=== PATIENT | male | born 1970 | race Caucasian/White ===

== ENCOUNTER 2016-11-22 09:00 | Emergency (ER) | payer MEDICARE, OTHER ==
[2016-11-22] MEDS ORDERED: cloNIDine HCL 0.1 MG TAB PO STA (09:26)
--- NOTE | 2016-11-22 09:29 | ED ---
Back Pain HPI - General Chief Complaint: Back Pain/Injury Stated Complaint: neck/back pain Time Seen by Provider: 11/22/16 09:11 Source: patient, RN notes reviewed Mode of arrival: ambulatory Limitations: no limitations - History of Present Illness Initial Comments: This a 38-year-old male presents emergency Department with chief complaint of neck and back pain. Patient states it has been bothering him for over 3 weeks he states he injured it while trying to start a snowblower. He states that the cord recoiled causing him to lean forward. He states he has not seen anybody for this pain but states is not getting better. Patient states she's been taken Jose Armando aspirin and Tylenol with no relief. Patient has chronic kidney disease did not take any anti-inflammatories. Patient states he is currently on dialysis. Patient states that his blood pressure has been elevated and he normally gets medications at dialysis. Patient denies any chest pain or shortness breath. Denies any nausea, vomiting. - Related Data Home Medications Medication Instructions Recorded Confirmed Calcium Acetate [Phoslo] 667 mg PO TID-W/MEALS 11/22/16 11/22/16 Sevelamer [Renvela] 800 mg PO TID-W/MEALS 11/22/16 11/22/16 Sodium Bicarbonate Tab 650 mg PO BID 11/22/16 11/22/16 Previous Rx's Medication Instructions Recorded Cyclobenzaprine [Flexeril] 5 mg PO TID PRN #15 tablet 11/22/16 Hydrocodone/Acetaminophen [[place] 1 tab PO Q6HR PRN #20 tab 11/22/16 5-325] Allergies Allergy/AdvReac Type Severity Reaction Status Date / Time No Known Allergies Allergy Verified 11/22/16 09:56 Review of Systems ROS Statement: Those systems with pertinent positive or pertinent negative responses have been documented in the HPI. ROS Other: All systems not noted in ROS Statement are negative. Past Medical History Past Medical History: Renal Disease Additional Past Medical History / Comment(s): kidney failure hemodialysis History of Any Multi-Drug Resistant Organisms: None Reported Additional Past Surgical History / Comment(s): fistula for dialysis lithotripsy kidney stents Past Psychological History: No Psychological Hx Reported Smoking Status: Current every day smoker Past Alcohol Use History: None Reported Past Drug Use History: None Reported General Exam Limitations: no limitations General appearance: alert, in no apparent distress Head exam: Present: atraumatic, normocephalic, normal inspection Eye exam: Present: normal appearance, PERRL, EOMI. Absent: scleral icterus, conjunctival injection, periorbital swelling ENT exam: Present: normal exam, normal oropharynx, mucous membranes moist, TM's normal bilaterally Neck exam: Present: normal inspection, tenderness (Tenderness along the cervical paraspinal), full ROM (Mild discomfort). Absent: meningismus, lymphadenopathy Respiratory exam: Present: normal lung sounds bilaterally. Absent: respiratory distress, wheezes, rales, rhonchi, stridor Cardiovascular Exam: Present: regular rate, normal rhythm, normal heart sounds. Absent: systolic murmur, diastolic murmur, rubs, gallop, clicks Extremities exam: Present: normal inspection, full ROM, normal capillary refill. Absent: tenderness, pedal edema, joint swelling, calf tenderness Back exam: Present: full ROM, tenderness (Mild tenderness of the upper thoracic region), paraspinal tenderness. Absent: vertebral tenderness Neurological exam: Present: alert, oriented X3, CN II-XII intact, reflexes normal. Absent: motor sensory deficit Skin exam: Present: warm, dry, intact, normal color. Absent: rash Course Vital Signs 11/22/16 09:06 Temperature 97.5 F L Pulse Rate 73 Respiratory 18 Rate Blood Pressure 189/108 O2 Sat by Pulse 99 Oximetry Medical Decision Making - Medical Decision Making 38-year-old male present emergency department for neck pain upper back pain. Patient has severe osteoporosis and degenerative changes. Patient referred to Dr. Venegas. Return parameters were discussed. Disposition Clinical Impression: Neck pain, Degenerative arthritis of cervical spine, Thoracic back pain Disposition: HOME SELF-CARE Condition: Stable Instructions: Neck Pain (ED) Additional Instructions: Please return to the Emergency Department if symptoms worsen or any other concerns. Prescriptions: Cyclobenzaprine [Flexeril] 5 mg PO TID PRN #15 tablet PRN Reason: Muscle Spasm Hydrocodone/Acetaminophen [[place] 5-325] 1 tab PO Q6HR PRN #20 tab PRN Reason: Pain Referrals: Jaylen Holguin MD [Primary Care Provider] - 1-2 days Brett Benjamin DO [Doctor of Osteopathic Medicine] - 1-2 days Time of Disposition: 10:49
--- NOTE | 2016-11-22 09:46 | XR ---
EXAMINATION TYPE: 5 view cervical spine. 3 views thoracic spine. DATE OF EXAM: 11/22/2016 9:39 AM COMPARISON: NONE HISTORY: 46-year-old male with a pulling/twisting injury, pain from center of the neck down the back. FINDINGS: Cervical spine: No predental space widening or prevertebral soft tissue swelling. Mild to moderate degenerative disc disease in the mid to lower cervical spine characterized by disc interspace narrowing and endplate sp ondylosis greatest at C6/C7 and then at C5-C6. There is normal alignment of the cervical spine. Corre sponding mild facet degenerative change. Limited obliquity for assessment of the right-sided neurofor rossy. There may be mild narrowing of the C5-C6 and C6-C7 neuroforamina on the right. Left-sided neur al foramina appear relatively patent. Normal odontoid view. Thoracic spine: 12 rib-bearing thoracic vertebral bodies. All pedicles are visualized. Slight undulation of the thora cic spine possibly due to some underlying minimal scoliosis. Vertebral body heights appear preserved. There is mild multilevel endplate spondylosis throughout. Grade 1 retrolisthesis at the thoracolumba r junction likely on a degenerative basis. IMPRESSION: 1. Cervical spine: Mild to moderate spondylotic change mid to lower cervical spine without malalignme nt. 2. Cervical spine: There may be mild narrowing of the right-sided C5-C6 and C6-C7 neuroforamina. Asse ssment limited due to the degree of obliquity. 3. Thoracic spine: Slight undulating curvature could be from spasm or a subtle underlying scoliosis. 4. Thoracic spine: Mild multilevel spondylotic change. There is trace retrolisthesis at the thoracolu mbar junction. Otherwise, alignment is maintained and vertebral body heights are preserved.
[2016-11-22 11:12] VITALS: BP 178/98; PULSE 81; RESP 16; TEMP 97.4
== END 2016-11-22 11:16 | disposition home or self-care (01) ==
LOC: EC 09:00
DX: M54.6 Pain in thoracic spine (principal); M54.2 Cervicalgia; N18.6 End stage renal disease; M47.892 Other spondylosis, cervical region; F17.200 Nicotine dependence, unspecified, uncomplicated; Z99.2 Dependence on renal dialysis; Z79.899 Other long term (current) drug therapy
CPT/HCPCS: 72050; 72070; 99283

== ENCOUNTER → 2017-04-10 | Outpatient (CLI) | payer BC, MEDICARE ==
--- NOTE | 2017-04-10 14:02 | XR ---
EXAMINATION TYPE: XR lumbar spine with bend/flex DATE OF EXAM ORDERED: 04/10/2017 1:54 PM HISTORY: M54.5 Low back pain. COMPARISON: None. FINDINGS: There is a mild dextroscoliosis within the thoracic spine. There is an accentuated lumbar tendinosis. There is no abnormal motion of the spine in flexion or ext ension. There is no spondylolysis. There are mild retrograde listhesis of L2 on L3 and L3 on L4. This does no t change significantly with flexion or extension. There is mild, diffuse degenerative disc disease. T here is hypertrophic spondylosis throughout the lumbar spine with relative sparing of L1-2. The pedic les are intact. IMPRESSION: 1. NO ACUTE OSSEOUS LESION. 2. DEGENERATIVE CHANGE.
--- NOTE | 2017-04-10 14:05 | XR ---
EXAMINATION TYPE: XR cervical spine comp DATE OF EXAM ORDERED: 04/10/2017 1:54 PM HISTORY: M54.2 Neck pain. COMPARISON: Previous study dated 11/22/2016. FINDINGS: There is some loss of the normal cervical lordosis. Alignment is normal. Atlantoaxial rela tionships are normal. Intervertebral foramina are diffusely narrowed slightly worse on the left than the right. There is degenerative disc disease and hypertrophic spondylosis at C5-6 and C6-7. There is mild uncovertebral joint disease at these levels. IMPRESSION: 1. NO ACUTE OSSEOUS LESION. 2. DEGENERATIVE CHANGE. 3. 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
== END ==
LOC: RADXRMAIN 13:26
PROVIDERS: ATTEND Psychiatry & Neurology Neurology
DX: M47.816 Spondylosis without myelopathy or radiculopathy, lumbar region (principal); M47.812 Spondylosis without myelopathy or radiculopathy, cervical region
CPT/HCPCS: 72050; 72114

== ENCOUNTER → 2017-06-14 | Outpatient (CLI) | payer BC, MEDICARE | END | disposition home or self-care (01) | LOC: LABWHC1 13:03 | PROVIDERS: ATTEND Nurse Practitioner Family | DX: Z53.9 Procedure and treatment not carried out, unspecified reason (principal) ==

== ENCOUNTER 2017-07-06 07:28 | Inpatient (IN) | payer BC, MEDICARE ==
[2017-07-06] MEDS ORDERED: SODIUM CHLORIDE 0.9% 500 ML IV STA (07:54)
[2017-07-06] MEDS ORDERED: hydrALAZINE HCL 20 MG/ML 1 ML VIAL IVP STA ×2 (07:54→09:17)
--- NOTE | 2017-07-06 08:15 | ED ---
General Adult HPI - General Chief complaint: Neuro Symptoms/Deficit Stated complaint: numbness Time Seen by Provider: 07/06/17 07:30 Source: patient, RN notes reviewed Mode of arrival: ambulatory Limitations: no limitations - History of Present Illness Initial comments: This is a 47-year-old male who presents to the emergency department complaining that he had tingling in his left arm and leg. Patient denies any weakness. Patient states she also has a headache. Patient states he took pressure medicines is 100 blood pressure remained high. Patient denies any visual disturbance. Patient denies any speech disturbance. Patient states he woke up at the tingling sensation in his left side. Patient denies any chest pain currently but he states earlier in the day he had chest pain on the left side that lasted about 5 minutes. Patient also states she short of breath. Patient denies any diaphoresis. Patient denies abdominal pain patient denies nausea vomiting diarrhea. Patient denies any recent fever chills or cough - Related Data Home Medications Medication Instructions Recorded Confirmed Calcium Acetate [Phoslo] 667 mg PO TID-W/MEALS 11/22/16 06/14/17 Sevelamer [Renvela] 800 mg PO TID-W/MEALS 11/22/16 06/14/17 Sodium Bicarbonate Tab 650 mg PO BID 11/22/16 06/14/17 Acetaminophen [Tylenol] 325 mg PO Q4H 06/14/17 06/14/17 Lisinopril [Zestril] 20 mg PO BID 06/14/17 06/14/17 amLODIPine [Norvasc] 5 mg PO DAILY 06/14/17 06/14/17 levETIRAcetam [Keppra] 1,000 mg PO Q12HR 06/14/17 06/14/17 Allergies Allergy/AdvReac Type Severity Reaction Status Date / Time No Known Allergies Allergy Verified 07/06/17 07:34 Review of Systems ROS Statement: Those systems with pertinent positive or pertinent negative responses have been documented in the HPI. ROS Other: All systems not noted in ROS Statement are negative. Past Medical History Past Medical History: Hypertension, Renal Disease, Seizure Disorder Additional Past Medical History / Comment(s): kidney failure hemodialysis History of Any Multi-Drug Resistant Organisms: None Reported Additional Past Surgical History / Comment(s): fistula for dialysis lithotripsy kidney stents Past Psychological History: No Psychological Hx Reported Smoking Status: Current every day smoker Past Alcohol Use History: None Reported Past Drug Use History: None Reported General Exam - General Exam Comments Initial Comments: GENERAL: Patient is well-developed and well-nourished. Patient is nontoxic and well- hydrated and is in mild distress. ENT: Neck is soft and supple. No significant lymphadenopathy is noted. Oropharynx is clear. Moist mucous membranes. Neck has full range of motion without eliciting any pain. EYES: The sclera were anicteric and conjunctiva were pink and moist. Extraocular movements were intact and pupils were equal round and reactive to light. Eyelids were unremarkable. PULMONARY: Unlabored respirations. Good breath sounds bilaterally. No audible rales rhonchi or wheezing was noted. CARDIOVASCULAR: There is a regular rate and rhythm without any murmurs gallops or rubs. ABDOMEN: Soft and nontender with normal bowel sounds. No palpable organomegaly was noted. There is no palpable pulsatile mass. SKIN: Skin is clear with no lesions or rashes and otherwise unremarkable. NEUROLOGIC: Patient is alert and oriented x3. Cranial nerves II through XII are grossly intact. Motor and sensory are also intact. Normal speech, volume and content. Symmetrical smile.. MUSCULOSKELETAL: Normal extremities with adequate strength and full range of motion. No lower extremity swelling or edema. No calf tenderness. LYMPHATICS: No significant lymphadenopathy is noted PSYCHIATRIC: Normal psychiatric evaluation. Normal interpersonal interactions appears functionally intact in deals appropriately with others. No signs of depression. No signs of anxiety. Limitations: no limitations Course Vital Signs 07/06/17 07/06/17 07/06/17 07:30 08:30 09:00 Temperature 97.7 F Pulse Rate 83 71 Respiratory 18 20 Rate Blood Pressure 215/117 214/113 218/104 O2 Sat by Pulse 99 Oximetry 07/06/17 07/06/17 07/06/17 09:32 10:22 10:32 Temperature Pulse Rate 81 Respiratory 18 Rate Blood Pressure 195/96 173/96 153/92 O2 Sat by Pulse 92 L Oximetry Medical Decision Making - Medical Decision Making EKG shows a normal sinus rhythm at 80 bpm HI interval is 138 QRS is 86 QT interval is 426 QTC is 491. Patient's EKG shows no ST segment elevation or depression. Computed tomography scan of the brain shows no acute normalities. Spoke with Dr. Bruno he agreed to admit the patient. I wrote admitting orders. - Lab Data Result diagrams: 07/06/17 08:00 07/06/17 08:00 Lab Results 07/06/17 07/06/17 07/06/17 Range/Units 08:00 08:00 08:00 WBC 5.8 (3.8-10.6) k/uL RBC 3.79 L (4.30-5.90) m/uL Hgb 12.6 L (13.0-17.5) gm/dL Hct 37.1 L (39.0-53.0) % MCV 97.9 (80.0-100.0) fL MCH 33.2 (25.0-35.0) pg MCHC 33.9 (31.0-37.0) g/dL RDW 17.5 H (11.5-15.5) % Plt Count 117 L (150-450) k/uL Neutrophils % 74 % Lymphocytes % 17 % Monocytes % 5 % Eosinophils % 2 % Basophils % 1 % Neutrophils # 4.3 (1.3-7.7) k/uL Lymphocytes # 1.0 (1.0-4.8) k/uL Monocytes # 0.3 (0-1.0) k/uL Eosinophils # 0.1 (0-0.7) k/uL Basophils # 0.1 (0-0.2) k/uL Poikilocytosis Slight Anisocytosis Slight Macrocytosis Slight PT (9.0-12.0) sec INR (<1.2) APTT (22.0-30.0) sec Sodium 133 L (137-145) mmol/L Potassium 5.1 (3.5-5.1) mmol/L Chloride 89 L (98-107) mmol/L Carbon Dioxide 22 (22-30) mmol/L Anion Gap 22 mmol/L BUN 69 H (9-20) mg/dL Creatinine 19.46 H* (0.66-1.25) mg/dL Est GFR (MDRD) Af Amer 3 (>60 ml/min/1.73 sqM) Est GFR (MDRD) Non-Af 3 (>60 ml/min/1.73 sqM) Glucose 72 L (74-99) mg/dL Calcium 8.5 (8.4-10.2) mg/dL Total Bilirubin 0.8 (0.2-1.3) mg/dL AST 26 (17-59) U/L ALT 32 (21-72) U/L Alkaline Phosphatase 99 (38-126) U/L Total Creatine Kinase 405 H (55-170) U/L CK-MB (CK-2) 7.5 H* (0.0-2.4) ng/mL CK-MB (CK-2) Rel Index 1.9 Troponin I 0.033 (0.000-0.034) ng/mL Total Protein 6.5 (6.3-8.2) g/dL Albumin 4.3 (3.5-5.0) g/dL 07/06/17 Range/Units 08:00 WBC (3.8-10.6) k/uL RBC (4.30-5.90) m/uL Hgb (13.0-17.5) gm/dL Hct (39.0-53.0) % MCV (80.0-100.0) fL MCH (25.0-35.0) pg MCHC (31.0-37.0) g/dL RDW (11.5-15.5) % Plt Count (150-450) k/uL Neutrophils % % Lymphocytes % % Monocytes % % Eosinophils % % Basophils % % Neutrophils # (1.3-7.7) k/uL Lymphocytes # (1.0-4.8) k/uL Monocytes # (0-1.0) k/uL Eosinophils # (0-0.7) k/uL Basophils # (0-0.2) k/uL Poikilocytosis Anisocytosis Macrocytosis PT 10.6 (9.0-12.0) sec INR 1.1 (<1.2) APTT 27.5 (22.0-30.0) sec Sodium (137-145) mmol/L Potassium (3.5-5.1) mmol/L Chloride (98-107) mmol/L Carbon Dioxide (22-30) mmol/L Anion Gap mmol/L BUN (9-20) mg/dL Creatinine (0.66-1.25) mg/dL Est GFR (MDRD) Af Amer (>60 ml/min/1.73 sqM) Est GFR (MDRD) Non-Af (>60 ml/min/1.73 sqM) Glucose (74-99) mg/dL Calcium (8.4-10.2) mg/dL Total Bilirubin (0.2-1.3) mg/dL AST (17-59) U/L ALT (21-72) U/L Alkaline Phosphatase (38-126) U/L Total Creatine Kinase (55-170) U/L CK-MB (CK-2) (0.0-2.4) ng/mL CK-MB (CK-2) Rel Index Troponin I (0.000-0.034) ng/mL Total Protein (6.3-8.2) g/dL Albumin (3.5-5.0) g/dL Disposition Clinical Impression: Transient cerebral ischemia, Hypertensive urgency, Chronic renal failure Disposition: ADMITTED IP TO THIS HOSP Referrals: Jaylen Holguin MD [Primary Care Provider] - 1-2 days Time of Disposition: 10:43
[2017-07-06 08:16] LABS: Anisocytosis Slight; Basophils # (A) 0.1 k/uL (0-0.2); Basophils % (A) 1 %; CH 33.2; CHCM 34.1; Eosinophils # (A) 0.1 k/uL (0-0.7); Eosinophils % (A) 2 %; HCT 37.1 % (39.0-53.0); HDW 3.45; HGB 12.6 gm/dL (13.0-17.5); Luc # (Auto) 0.11; Luc % (Auto) 2; Lymphocytes % (A) 17 %; MCH 33.2 pg (25.0-35.0); MCHC 33.9 g/dL (31.0-37.0); MCV 97.9 fL (80.0-100.0); Macrocytosis Slight; Mean Platelet Volume 7.6; Monocytes # (A) 0.3 k/uL (0-1.0); Monocytes % (A) 5 %; Neutrophils # (A) 4.3 k/uL (1.3-7.7); Neutrophils % (A) 74 %; Poikilocytosis Slight; RBC 3.79 m/uL (4.30-5.90); RDW 17.5 % (11.5-15.5); WBC 5.8 k/uL (3.8-10.6); WBC (Perox) 5.85
[2017-07-06 08:22] LABS: Calcium 8.5 mg/dL (8.4-10.2); INR 1.1 (<1.2); Partial Thromboplastin Time 27.5 sec (22.0-30.0); Potassium 5.1 mmol/L (3.5-5.1); Prothrombin Time 10.6 sec (9.0-12.0); Total Bilirubin 0.8 mg/dL (0.2-1.3); Total Protein 6.5 g/dL (6.3-8.2)
--- NOTE | 2017-07-06 08:42 | CT ---
EXAMINATION TYPE: CT brain wo con for TPA DATE OF EXAM: 07/06/2017 COMPARISON: NONE HISTORY: Lt sided weakness CT DLP: 1054.2 mGycm Automated exposure control for dose reduction was used. FINDINGS: Ventricles have fairly normal size. There is no mass effect nor midline shift. There is no sign of in tracranial hemorrhage. The calvarium is intact. There are small areas of hypodensity in the anterior limb of both left and right internal capsule. IMPRESSION: There is evidence for mild chronic small vessel ischemia. No acute intracranial abnormality.
[2017-07-06 08:47] LABS: Troponin I 0.033 ng/mL (0.000-0.034)
--- NOTE | 2017-07-06 08:49 | XR ---
EXAMINATION TYPE: XR chest 2V DATE OF EXAM: 07/06/2017 COMPARISON: NONE HISTORY: Left-sided weakness TECHNIQUE: Frontal and lateral views of the chest are obtained. FINDINGS: There is no heart failure nor confluent pneumonic infiltrate. There is small linear densit y in the lateral right lower lobe. There is no pleural effusion. There are chest leads. IMPRESSION: Minimal scarring in the right lower lobe. No active cardiopulmonary disease.
[2017-07-06 08:54] LABS: Creatine Kinase MB 7.5 ng/mL (0.0-2.4)
[2017-07-06] MEDS ORDERED: HYDROmorphone 1 MG/ML 1 ML SYRINGE IVP STA (09:17)
[2017-07-06] MEDS ORDERED: Acetaminophen-Codeine 300-30mg TAB PO STA (09:26)
[2017-07-06] MEDS ORDERED: ONDANSETRON 4 MG/2 ML VIAL IVP STA ×2 (09:42)
[2017-07-06] MEDS ORDERED: LABETALOL 5 MG/ML VIAL MDV IVP STA (10:21)
--- NOTE | 2017-07-06 11:56 | P.NPCON ---
History of Present Illness - Reason for Consult Consult date: 07/06/17 end stage renal disease - Chief Complaint ESRD with possible TIA - History of Present Illness This is a 47-year-old male seen in consultation because of ESRD on dialysis Saturday at the [facility] unit came in because of acute onset of numbness tingling in the left side of his body involving both upper and lower limbs which is improving. He woke up with this at 6:00 this morning on Saturday morning and by 11:00 is much better but not completely resolved. Is also complaining of some weakness that he had in the left leg but that also has nearly resolved. This is associated with some headache and sharp twinges of pain in his left chest for a few minutes in the morning. He is known with ESRD secondary to multiple stones. He has strong family history of kidney stones. He had never been transplanted. He was told to have bilateral nephrectomy supposedly before he could be on the last and for that reason he might have a not followed up. Recently he has had seizure disorder for the last 1 year most recent seizure was in April he was admitted to [facility] and supposedly at that time his fistula in his right forearm was infiltrated necessitating placement of a permacath at the time for 2 weeks. The cause of the seizure disorder is not clear. Other relevant history is that he has moved from dialysis units because of difficulty in dealing with the staff. Over the last 1 year's been having neck pain and low back pain. 2 weeks ago he was started physiotherapy which made it even worse supposedly. He has missed the last 2 treatments supposedly because of neck pain and also said there was some infiltration during his dialysis on Saturday. He is not clear about these details about which they seem S. He came in with a creatinine of 19 though. Denies any nausea vomiting he has good urine output. No recent stone episode. Past Medical History Past Medical History: Hypertension, Renal Disease, Seizure Disorder Additional Past Medical History / Comment(s): kidney failure hemodialysis History of Any Multi-Drug Resistant Organisms: None Reported Additional Past Surgical History / Comment(s): fistula for dialysis lithotripsy kidney stents Past Psychological History: No Psychological Hx Reported Smoking Status: Current every day smoker Past Alcohol Use History: None Reported Past Drug Use History: None Reported Medications and Allergies Home Medications Medication Instructions Recorded Confirmed Type Calcium Acetate [Phoslo] 667 mg PO TID-W/MEALS 11/22/16 06/14/17 History Sevelamer [Renvela] 800 mg PO TID-W/MEALS 11/22/16 06/14/17 History Sodium Bicarbonate Tab 650 mg PO BID 11/22/16 06/14/17 History Acetaminophen [Tylenol] 325 - 650 mg PO Q4H PRN 06/14/17 06/14/17 History Lisinopril [Zestril] 20 mg PO BID 06/14/17 06/14/17 History amLODIPine [Norvasc] 5 mg PO DAILY 06/14/17 06/14/17 History levETIRAcetam [Keppra] 500 mg PO Q12HR 07/06/17 07/06/17 History Allergies Allergy/AdvReac Type Severity Reaction Status Date / Time No Known Allergies Allergy Verified 07/06/17 11:24 Physical Exam Vitals: Vital Signs Temp Pulse Resp BP Pulse Ox 07/06/17 11:28 97.7 F 71 18 153/79 96 07/06/17 10:32 81 18 153/92 92 L 07/06/17 10:22 173/96 07/06/17 09:32 195/96 07/06/17 09:00 218/104 07/06/17 08:30 71 20 214/113 07/06/17 07:30 97.7 F 83 18 215/117 99 Intake and Output 07/05/17 07/06/17 07/06/17 22:59 06:59 14:59 Other: Weight 62.142 kg Patient Weight 07/07/17 06:59 Weight 62.142 kg On examination is awake alert oriented comfortable. HEENT exam no JVP neck is supple no facial asymmetry no carotid bruit pupils are equal and normal. Lungs are clear to auscultation percussion good air entry bilaterally. Heart sounds are unremarkable for any murmur rub gallop. Abdomen soft nontender no organomegaly status masses Extremity exam reveals no edema Neurologically awake alert oriented neck is supple no facial asymmetry. NUCLEAR MEDICAL TECH exam no focal motor deficit seems to have a covered all his strength at his objectively but subjectively he does feel some minimal weakness in his left leg cc. No asterixis. Results - Lab Results Most recent lab results Calcium 8.5 mg/dL (8.4-10.2) 07/06/17 08:00 07/06/17 08:00 07/06/17 08:00 Assessment and Plan Plan: Impression. 1. ESRD secondary to kidney stones, strong family history, on hemodialysis for 8 years with a right forearm fistula. 2. Admitted with possible TIA with numbness tingling left side starting 6 AM this morning and almost recovered by 11 AM. His blood pressure was 215/117 when he came in but currently is 153/79. He usually runs high blood pressure in the 200 range therefore it will be somewhat difficult to ask why this high blood pressure as causing any intracerebral bleed or a CVA. 3. History of neck pain for last 1 year with worsening the last 2 weeks after starting physiotherapy. He has had chiropractic this procedure is done for this. 4. Extremity of difficulty in dealing the dialysis staff and moving from multiple dialysis units. 5. History of seizure disorder for the last 1 year so far 3 seizures last one was in April 2017 2 months ago 6. Transient chest discomfort atypical. Lasted for maybe a few minutes 4-5 minutes, troponin is 0.033. 7. Mild metabolic acidosis bicarb is 22, patient is on sodium bicarb Medication. We will proceed with his dialysis as he has missed at least 2 dialysis this week. We'll dialyze him for 3-1/2 hours no ultrafiltration as he makes lots of urine and he has no evidence of volume overload. Needs Blood pressure controlled to 150-160 systolic. Resume home medication that include lisinopril and amlodipine. Maintain his Keppra level. Maintain the binders that include PhosLo and Renvela and the sodium bicarb
[2017-07-06] MEDS ORDERED: Acetaminophen-Codeine 300-30mg TAB PO PRN (12:55)
--- NOTE | 2017-07-06 12:55 | P.HPIM ---
History of Present Illness H&P Date: 07/06/17 Chief Complaint: TIA, emergency hypertension, end-stage renal disease with severely elevated 47-year-old male one of Dr. Holguin patient with past medical history of end-stage renal disease on hemodialysis 3 times a week he goes to the [facility] for dialysis and he seen nephrology on regular basis. Patient woke up this morning with tingling sensation in the left side of his body and arm with weakness in the left upper extremity as well he ended up coming to the emergency department at [facility] found to have severely urgent hypertension with a blood pressure above 200. By the time his blood pressure subtle down his symptoms has improved significantly. Patient also continued to have significant pain and discomfort in the neck area. His creatinine surprisingly running 18 has not done well with dialysis over the last 2 sessions apparently he had more infiltrate of the forearm around his fistula with dialysis when he was in dialysis on Saturday and had trouble on as well. Patient apparently has been seen Dr. Perez for the last few month has been suffering from severe lower back pain and severe neck pain had injection physical therapy and try medication. MRI apparently was not done yet because of his insurance status. Patient continued to be on pain management with no weakness of the upper extremity from his neck pain up till now. Patient never had any episode of TIA or CVA in the past for as far as you remember. Review of Systems Constitutional: Reports anorexia, Reports fatigue, Reports lethargy, Reports weight loss, Denies as per HPI, Denies chills, Denies chronic headaches, Denies chronic pain, Denies daytime sleepiness, Denies fever, Denies malaise, Denies night sweats, Denies poor appetite, Denies sweats, Denies weakness, Denies weight gain Eyes: bilateral as per HPI Ears: bilateral: decreased hearing Ears, nose, mouth and throat: Reports nasal congestion, Reports nasal discharge , Reports sinus pressure, Denies as per HPI, Denies ant. neck pain, Denies bleeding gums, Denies dental pain, Denies dysphagia, Denies epistaxis, Denies headache, Denies hoarseness, Denies mouth pain, Denies neck fullness/pressure, Denies neck lump, Denies nose pain, Denies odynophagia, Denies post-nasal drip, Denies sinus pain, Denies swelling in mouth, Denies swelling in throat, Denies sore throat, Denies vertigo, Denies voice changes Cardiovascular: Reports dyspnea on exertion, Reports high blood pressure, Reports irregular heart beat, Reports lightheadedness, Reports palpitations, Reports rapid heart beat, Denies as per HPI, Denies chest pain, Denies claudication, Denies decreased exercise tolerance, Denies edema, Denies leg edema, Denies orthopnea, Denies paroxysmal nocturnal dyspnea, Denies phlebitis, Denies shortness of breath, Denies syncope Respiratory: Reports congestion, Reports cough, Denies as per HPI, Denies cough with sputum, Denies dyspnea, Denies excessive sputum, Denies hemoptysis, Denies home oxygen, Denies pain, Denies pain on inspiration, Denies pleurisy, Denies respiratory infections, Denies sleep apnea, Denies snoring, Denies wheezing Gastrointestinal: Reports bloating, Reports dyspepsia, Reports indigestion, Denies as per HPI, Denies abdominal pain, Denies belching, Denies BRBPR, Denies change in bowel habits, Denies coffee ground emesis, Denies constipation, Denies diarrhea, Denies early satiety, Denies excessive gas, Denies heartburn, Denies hematemesis, Denies hematochezia, Denies jaundice, Denies lactose intolerance, Denies loss of appetite, Denies melena, Denies nausea, Denies vomiting Genitourinary: Denies as per HPI, Denies decreased libido, Denies difficulties fathering child, Denies discharge, Denies dysuria, Denies erectile dysfunction, Denies flank pain, Denies genital pain, Denies genital sores, Denies hematuria, Denies impotence, Denies incontinence, Denies kidney stones, Denies nocturia, Denies polyuria, Denies testicular lump, Denies testicular pain, Denies urinary frequency, Denies urinary hesitancy, Denies urinary retention Musculoskeletal: Reports arm numbness/tingling, Reports leg numbness/tingling, Reports low back pain, Reports morning stiffness, Reports muscle cramps, Reports muscle weakness, Reports myalgias, Reports neck pain, Reports neck stiffness, Denies as per HPI, Denies atrophy, Denies fractures, Denies frequent falls, Denies gait dysfunction, Denies hot joints, Denies limitation of motion, Denies loss of height, Denies prior amputations, Denies redness of joints, Denies shooting arm pain, Denies shooting leg pain Integumentary: Reports dryness, Denies as per HPI, Denies acne, Denies boils, Denies brittle nails, Denies change in hair/nails, Denies color changes, Denies darkening of skin, Denies depigmentation, Denies foot/leg ulcers, Denies growths , Denies hirsutism, Denies lesions, Denies onychomycosis, Denies pruritus, Denies rash, Denies sores, Denies striae, Denies unusual bruising, Denies wounds Neurological: Reports numbness, Reports paresthesias, Reports spasticity, Reports tingling, Reports weakness, Denies as per HPI, Denies aphasia, Denies ataxia, Denies balance difficulties, Denies burning pain, Denies change in mentation, Denies change in smell/taste, Denies change in speech, Denies confusion, Denies convulsions, Denies double vision, Denies gait dysfunction, Denies head injury, Denies headaches, Denies hearing difficulties, Denies lack of coordination, Denies loss of vision, Denies memory loss, Denies migraines, Denies motor disturbance, Denies paralysis, Denies seizures, Denies sensory deficit, Denies syncope, Denies tic, Denies transient paralysis, Denies tremors , Denies vertigo, Denies visual changes Psychiatric: Reports anhedonia, Reports anxiety, Reports depression, Reports sadness/tearfulness, Denies as per HPI, Denies anxiety attacks, Denies change in appetite, Denies change in libido, Denies change in sleep habits, Denies confusion, Denies difficulty concentrating, Denies disorientation, Denies hallucinations, Denies hopelessness, Denies hypersomnia, Denies insomnia, Denies irritability, Denies memory loss, Denies mood swings, Denies paranoia, Denies sleep disturbances, Denies suicidal ideation Endocrine: Reports cold intolerance, Reports fatigue, Reports polydipsia, Denies as per HPI, Denies deepening of the voice, Denies excessive sweating, Denies excessive thirst, Denies flushing, Denies heat intolerance, Denies high blood sugars, Denies increase in ring/shoe/hat size, Denies low blood sugars, Denies nocturia, Denies palpitations, Denies polyphagia, Denies polyuria, Denies proptosis, Denies recent glucocorticoid use, Denies thyroid mass, Denies weight change Hematologic/Lymphatic: Reports easy bruising, Denies as per HPI, Denies easy bleeding, Denies lymphadenopathy, Denies lymphedema, Denies thrombophilia Allergic/Immunologic: Reports allergic rhinitis, Denies as per HPI, Denies anaphylaxis, Denies angioedema, Denies gluten intolerance, Denies persistent infections, Denies seasonal allergies, Denies urticaria, Denies wheezing Past Medical History Past Medical History: Hypertension, Renal Disease, Seizure Disorder Additional Past Medical History / Comment(s): kidney failure hemodialysis History of Any Multi-Drug Resistant Organisms: None Reported Additional Past Surgical History / Comment(s): fistula for dialysis lithotripsy kidney stents Past Psychological History: No Psychological Hx Reported Smoking Status: Current every day smoker Past Alcohol Use History: None Reported Past Drug Use History: None Reported Medications and Allergies Home Medications Medication Instructions Recorded Confirmed Type Calcium Acetate [Phoslo] 667 mg PO TID-W/MEALS 11/22/16 07/06/17 History Sevelamer [Renvela] 800 mg PO TID-W/MEALS 11/22/16 07/06/17 History Sodium Bicarbonate Tab 650 mg PO BID 11/22/16 07/06/17 History Lisinopril [Zestril] 20 mg PO BID 06/14/17 07/06/17 History amLODIPine [Norvasc] 5 mg PO DAILY 06/14/17 07/06/17 History Acetaminophen-Codeine 300-30mg 1 tab PO Q8H PRN 07/06/17 07/06/17 History [Tylenol #3] levETIRAcetam [Keppra] 500 mg PO Q12HR 07/06/17 07/06/17 History Allergies Allergy/AdvReac Type Severity Reaction Status Date / Time No Known Allergies Allergy Verified 07/06/17 11:24 Physical Exam Vitals: Vital Signs Temp Pulse Resp BP Pulse Ox 07/06/17 11:28 97.7 F 71 18 153/79 96 07/06/17 10:32 81 18 153/92 92 L 07/06/17 10:22 173/96 07/06/17 09:32 195/96 07/06/17 09:00 218/104 07/06/17 08:30 71 20 214/113 07/06/17 07:30 97.7 F 83 18 215/117 99 Intake and Output 07/05/17 07/06/17 07/06/17 22:59 06:59 14:59 Other: Weight 62.142 kg Patient Weight 07/07/17 06:59 Weight 62.142 kg - Constitutional General appearance: average body habitus, no cooperative, no disheveled, no mild distress, no morbidly obese, no acute distress, no obese, no severe distress, no thin - EENT Eyes: no abnormal pupil, no anicteric sclerae, no disc margins sharp, no edentulous, no EOMI, no PERRLA, no fundus normal, no photophobia, no dentition normal, no poor dentition, no ptosis, no scleral icterus, normal appearance ENT: no hard of hearing, no hearing grossly normal, no NA/AT, normal oropharynx , no other, no pharyngeal erythema, no thrush, no tonsillar exudates, no tonsillar swelling Ears: bilateral: normal - Neck Slight stiffness with no tenderness in the neck area not been able to find any pulses a Chin no carotid bruits. Neck: no lymphadenopathy, normal ROM, no other, no rigidity, no stridor, no thyromegaly Carotids: bilateral: upstroke normal Thyroid: bilateral: normal size - Respiratory Respiratory: bilateral: CTA, diminished - Cardiovascular Rhythm: regular Heart sounds: normal: S1, S2 Abnormal Heart Sounds: systolic murmur - Gastrointestinal General gastrointestinal: no absent bowel sounds, no decreased bowel sounds, distended, no hepatomegaly, no hyperactive bowel sounds, no normal bowel sounds , no organomegaly, no rigid, no scaphoid, soft, no splenomegaly, no tenderness, no umbilical hernia, no ventral hernia - Integumentary Integumentary: no calor, no cellulitis, no cyanotic, no decreased turgor, no flushed, no jaundiced, normal, no normal turgor, pale, no rash, no ulcer - Neurologic Neurologic: CNII-XII intact - Musculoskeletal Musculoskeletal: gait normal, generalized weakness, strength equal bilaterally, no right sided weakness, no left sided weakness - Psychiatric Psychiatric: A&O x's 3, appropriate affect Results CBC & Chem 7: 07/06/17 08:00 07/06/17 08:00 Labs: Abnormal Lab Results - Last 24 Hours (Table) 07/06/17 07/06/17 07/06/17 Range/Units 08:00 08:00 08:00 RBC 3.79 L (4.30-5.90) m/uL Hgb 12.6 L (13.0-17.5) gm/dL Hct 37.1 L (39.0-53.0) % RDW 17.5 H (11.5-15.5) % Plt Count 117 L (150-450) k/uL Sodium 133 L (137-145) mmol/L Chloride 89 L (98-107) mmol/L BUN 69 H (9-20) mg/dL Creatinine 19.46 H* (0.66-1.25) mg/dL Glucose 72 L (74-99) mg/dL Total Creatine Kinase 405 H (55-170) U/L CK-MB (CK-2) 7.5 H* (0.0-2.4) ng/mL Thrombosis Risk Factor Assmnt - DVT/VTE Prophylaxis DVT/VTE Prophylaxis: Pharmacologic Prophylaxis ordered, Mechanical Prophylaxis ordered Assessment and Plan Plan: 1 TIA/CVA: Patient will be admitted to the hospital will consult neurology continue antiplatelet agent at least aspirin for now patient will be going for carotid ultrasound, echocardiogram, heart monitor and neuro exam and check every 4 hours for the next 24 hours. 2 urgent hypertension: Patient has done well back on his lisinopril and amlodipine will add clonidine for systolic above 160. 3 end-stage renal disease on hemodialysis: Surprisingly his creatinine remain elevated he will require dialysis today we'll consult nephrology and follow his BUN/creatinine next 24 hours. 4 severe cervical pain: Patient is seen Dr. Perez has been going through pain management injection is still on chronic pain management with muscle relaxer and hydrocodone. 5 seizure: Has done very well with Keppra 500 mg twice a day continue medication. 6 smoking: Smoking cessation was addressed patient will be on nicotine patch for now. 7 severe GERD: Patient will be on Pepcid 20 mg daily. 8 Mild anemia: Patient will be continue on multivitamins along with iron supplement and Procrit per dialysis. 9 thrombocytopenia: His platelets are down to 117 repeat BUN/creatinine next 24 hours. 10 DVT prophylaxis: Knee-high KP hose and early mobilization. CODE STATUS: Full code. Expectation from this admission: Patient be in the hospital for 1-2 nights.
[2017-07-06] MEDS ORDERED: amLODIPine 5 MG TAB PO SCH (13:00)
[2017-07-06] MEDS ORDERED: cloNIDine HCL 0.1 MG TAB PO PRN (17:58)
[2017-07-06 18:37] VITALS: BMI 23.5
--- NOTE | 2017-07-06 19:40 | P.CNNES ---
History of Present Illness Consult date: 07/06/17 Reason for Consult: Patient being evaluated for possible TIA. History of Present Illness: This patient is a 47-year-old right-handed white male who was admitted to hospital for treatment of left-sided numbness and weakness. Patient has a complex past medical history with end-stage renal disease requiring hemodialysis 3 days a week. He was noted on admission to have some left-sided arm and leg weakness. He underwent a computed tomography scan of the brain which revealed chronic ischemic changes with no acute stroke or hemorrhage. He has had significant neck pain for years. Apparently he changes position his neck pain worsens and he stays in a very contracted posture due to the severity of pain. According to his he is been unable to obtain an MRI of the cervical spine due to his insurance status. He has been seen in the outpatient pain clinic with Dr. Cline and is undergone multiple injections and physical therapy with no improvement. Currently he is seen in the hospital and complains of severe neck pain. We would recommend a MRI of the cervical spine for further evaluation. Patient is a poor historian. Apparently he has multiple spine problems including lumbar and cervical disc disease. He has been unable to obtain further treatment of these conditions. According to his he is making arrangements to be seen in the neurosurgery clinic at [facility]. Would recommend the patient to be maintained on aspirin daily for secondary stroke prevention. He also on admission was noted to have hypertensive urgency. His antihypertensive medications have been adjusted. Patient also has a history of seizure disorder. He is currently on Keppra monotherapy. He has not had any recent seizures. Neurology is now been consulted for further evaluation and recommendations. Review of Systems Constitutional: Denies chills, Denies fever Eyes: denies blurred vision, denies pain Ears, nose, mouth and throat: Denies headache, Denies sore throat Cardiovascular: Denies chest pain, Denies shortness of breath Respiratory: Denies cough Gastrointestinal: Denies abdominal pain, Denies diarrhea, Denies nausea, Denies vomiting Musculoskeletal: Reports low back pain, Reports muscle cramps, Reports neck pain , Denies myalgias Integumentary: Denies pruritus, Denies rash Neurological: Denies numbness, Denies weakness Psychiatric: Denies anxiety, Denies depression Endocrine: Denies fatigue, Denies weight change Past Medical History Past Medical History: Hypertension, Renal Disease, Seizure Disorder Additional Past Medical History / Comment(s): kidney failure hemodialysis History of Any Multi-Drug Resistant Organisms: None Reported Additional Past Surgical History / Comment(s): fistula for dialysis lithotripsy kidney stents Past Psychological History: No Psychological Hx Reported Smoking Status: Current every day smoker Past Alcohol Use History: None Reported Past Drug Use History: None Reported - Past Family History Father Family Medical History: Cancer, CVA/TIA Mother Family Medical History: CVA/TIA Medications and Allergies Home Medications Medication Instructions Recorded Confirmed Type Calcium Acetate [Phoslo] 667 mg PO TID-W/MEALS 11/22/16 07/06/17 History Sevelamer [Renvela] 800 mg PO TID-W/MEALS 11/22/16 07/06/17 History Sodium Bicarbonate Tab 650 mg PO BID 11/22/16 07/06/17 History Lisinopril [Zestril] 20 mg PO BID 06/14/17 07/06/17 History amLODIPine [Norvasc] 5 mg PO DAILY 06/14/17 07/06/17 History Acetaminophen-Codeine 300-30mg 1 tab PO Q8H PRN 07/06/17 07/06/17 History [Tylenol #3] levETIRAcetam [Keppra] 500 mg PO Q12HR 07/06/17 07/06/17 History Allergies Allergy/AdvReac Type Severity Reaction Status Date / Time No Known Allergies Allergy Verified 07/06/17 11:24 Physical Examination - Vital Signs Vital Signs: Vital Signs Temp Pulse Pulse Resp BP BP Pulse Ox 07/06/17 15:31 63 14 07/06/17 15:26 97.0 F L 63 14 179/99 96 07/06/17 11:28 97.7 F 71 18 153/79 96 07/06/17 10:59 97.0 F L 63 14 179/99 96 07/06/17 10:32 81 18 153/92 92 L 07/06/17 10:22 173/96 07/06/17 09:32 195/96 07/06/17 09:00 218/104 07/06/17 08:30 71 20 214/113 07/06/17 07:30 97.7 F 83 18 215/117 99 Intake and Output 07/06/17 07/06/17 07/06/17 06:59 14:59 22:59 Other: Weight 62.142 kg 62.142 kg Patient Weight 07/07/17 06:59 Weight 62.142 kg - Constitutional General appearance: average body habitus, cooperative - EENT EENT: PERRL - Respiratory Respiratory: lungs clear, normal breath sounds - Cardiovascular Cardiovascular: regular rate, normal S1, normal S2 Extremities: no peripheral edema bilaterally - Gastrointestinal Gastrointestinal: normoactive bowel sounds - Integumentary Integumentary: normal - Neurologic Cranial nerve examination: PERRL, EOMI, VFF, V1/V2/V3 grossly intact, face symmetric, tongue midline, intact gag reflex, intact corneal reflex, normal palatal elevation Speech examination: intact Sensorimotor examination: intact Motor examination - right side: 4/5: biceps, triceps, wrist flexion, wrist extension, wrecking mechanic, hip flexors, knee extensors, dorsiflexion, toe extension (EHL) , plantarflexion Motor examination - left side: 4/5: biceps, triceps, wrist flexion, wrist extension, wrecking mechanic, hip flexors, knee extensors, dorsiflexion, toe extension (EHL) , plantarflexion Detailed sensory examination: intact Reflex and gait examination: intact Reflexes: 1+: ankle, bicep, knee, tricep - Musculoskeletal Musculoskeletal: pain in joint - Psychiatric Psychiatric: agitated Results - Laboratory Findings CBC and BMP: 07/06/17 08:00 07/06/17 08:00 Abnormal Lab Findings: Abnormal Labs 07/06/17 07/06/17 07/06/17 08:00 08:00 08:00 RBC 3.79 L Hgb 12.6 L Hct 37.1 L RDW 17.5 H Plt Count 117 L Sodium 133 L Chloride 89 L BUN 69 H Creatinine 19.46 H* Glucose 72 L Total Creatine Kinase 405 H CK-MB (CK-2) 7.5 H* Assessment and Plan (1) TIA (transient ischemic attack) Status: Acute Code(s): G45.9 - TRANSIENT CEREBRAL ISCHEMIC ATTACK, UNSPECIFIED (2) Encephalopathy Status: Acute Code(s): G93.40 - ENCEPHALOPATHY, UNSPECIFIED (3) Chronic renal failure Status: Acute Code(s): N18.9 - CHRONIC KIDNEY DISEASE, UNSPECIFIED (4) Hypertensive urgency Status: Acute Code(s): I16.0 - HYPERTENSIVE URGENCY (5) Cervical spondylosis Status: Acute Code(s): M47.812 - SPONDYLOSIS W/O MYELOPATHY OR RADICULOPATHY, CERVICAL REGION Plan: This patient is a 47-year-old male admitted with possible TIA symptoms. Patient has a complex past medical history with multiple medical conditions including end-stage renal disease were which she is undergoing hemodialysis. He has a history of chronic disc disease involving the cervical and lumbar region. He is presenting with left-sided numbness and some weakness. His neurological exam does reflect hyperreflexia suggesting cervical spondylosis. We are recommending MRI of the cervical spine as well as a consultation with orthopedic spine surgery for further management. Patient is to continue on 1 aspirin daily for secondary stroke prevention. He is undergone multiple injections to his cervical and lumbar spine with minimal relief. He is noted to have neck contracture due to the severity of his neck pain at this time. We will await his MRI results and we will give further recommendations depending on these findings. His overall prognosis at this time remains very guarded. Time with Patient: Greater than 30
[2017-07-06] MEDS ORDERED: ONDANSETRON 4 MG/2 ML VIAL IVP PRN (20:24)
[2017-07-06] MEDS: ACETAMINOPHEN TAB 325 MG TAB PO PRN (20:41)
[2017-07-06] MEDS: cloNIDine HCL 0.1 MG TAB PO PRN (20:42)
[2017-07-06] MEDS: SEVELAMER 800 MG TAB PO SCH (21:51)
[2017-07-06] MEDS: CALCIUM ACETATE 667 MG CAP PO SCH (21:51)
[2017-07-06] MEDS: SODIUM BICARBONATE TAB 650 MG TAB PO SCH (21:54)
[2017-07-06] MEDS: levETIRAcetam 500 MG TAB PO SCH (21:54)
[2017-07-06] MEDS: LISINOPRIL 20 MG TAB PO SCH (21:54)
[2017-07-07] MEDS: cloNIDine HCL 0.1 MG TAB PO PRN (03:30)
[2017-07-07 04:34] VITALS: TEMP 98.4
[2017-07-07] MEDS: ACETAMINOPHEN TAB 325 MG TAB PO PRN (06:52)
[2017-07-07] MEDS: CALCIUM ACETATE 667 MG CAP PO SCH (06:52)
[2017-07-07 06:55] LABS: Anisocytosis Slight; Basophils # (A) 0.1 k/uL (0-0.2); Basophils % (A) 1 %; CH 33.6; Eosinophils # (A) 0.1 k/uL (0-0.7); Eosinophils % (A) 1 %; HCT 41.2 % (39.0-53.0); HDW 3.36; HGB 12.9 gm/dL (13.0-17.5); Hypochromasia Slight; Luc # (Auto) 0.11; Luc % (Auto) 2; Lymphocytes % (A) 17 %; MCH 32.3 pg (25.0-35.0); MCHC 31.4 g/dL (31.0-37.0); MCV 102.6 fL (80.0-100.0); Macrocytosis Moderate; Mean Platelet Volume 7.7; Monocytes # (A) 0.4 k/uL (0-1.0); Monocytes % (A) 6 %; Neutrophils # (A) 4.2 k/uL (1.3-7.7); Neutrophils % (A) 73 %; RBC 4.01 m/uL (4.30-5.90); WBC 5.8 k/uL (3.8-10.6)
[2017-07-07 07:21] LABS: Calcium 8.9 mg/dL (8.4-10.2); Total Bilirubin 0.7 mg/dL (0.2-1.3); Total Protein 6.6 g/dL (6.3-8.2)
--- NOTE | 2017-07-07 08:21 | US ---
EXAMINATION TYPE: US carotid duplex BILAT DATE OF EXAM: 07/07/2017 COMPARISON: NONE CLINICAL HISTORY: Stenosis. Pt states neck pain and headaches EXAM MEASUREMENTS: RIGHT: Peak Systolic Velocity (PSV) cm/sec ----- Right CCA: 86.7 ----- Right ICA: 73.5 ----- Right ECA: 167.3 ICA/CCA ratio: 0.8 RIGHT: End Diastole cm/sec ----- Right CCA: 15.3 ----- Right ICA: 30.7 ----- Right ECA: 17.5 LEFT: Peak Systolic Velocity (PSV) cm/sec ----- Left CCA: 99.0 ----- Left ICA: 94.3 ----- Left ECA: 157.5 ICA/CCA ratio: 1.0 LEFT: End Diastole cm/sec ----- Left CCA: 21.0 ----- Left ICA: 29.6 ----- Left ECA: 27.4 VERTEBRALS (direction of flow): Right Vertebral: Antegrade Left Vertebral: Antegrade No significant stenosis seen, slightly elevated velocities bilateral ECA's/ Tortuous left ICA Intimal thickening is noted to the right carotid system. Intimal thickening is noted on the left watson tid system IMPRESSION: 1. Intimal thickening without significant flow-limiting stenosis. Criteria for Assigning % of Stenosis / Diameter reduction (Estimation based on the indirect measurements of the internal carotid artery velocities (ICA PSV). 1. Normal (no stenosis)=ICA PSV < 125 cm/s: ratio < 2.0: ICA EDV<40 cm/s. 2. Less than 50% stenosis=ICA PSV < 125 cm/s: ratio < 2.0: ICA EDV<40 cm/s. 3. 50 to 69% stenosis=ICA PSV of 125 to 230 cm/s: ration 2.0 ? 4.0: ICA EDV 40-100 cm/s. 4. Greater than 70% stenosis to near occlusion= ICA PSV > 230 cm/s: ratio > 4.0: ICA EDV > 100 cm/s. 5. Near occlusion= ICA PSV velocities may be low or undetectable: variable ratio and ICA EDV. 6. Total occlusion=unable to detect flow.
--- NOTE | 2017-07-07 08:42 | P.PN ---
Subjective This is a 47-year-old male, with ESRD on dialysis Saturday at the [facility]. He came in because of acute onset of numbness tingling and some weakness in his left side at 6 in the morning on Saturday. By Saturday known in the emergency room most of the complaints had improved significantly but not completely resolved. He was started have TIA versus possibly cervical spine spinal stenosis explaining these symptoms. He had also missed 2 dialysis treatment prior to this one and therefore his last dialysis approximately a week ago because of this wheezing is probably from the neck pain but he was somewhat unclear at times. He also had significant hypertension when he came in with systolic in the 215 range and diastolics 117. He does run high blood pressures in approximately those ranges and states that fluid removal makes it worse and he has trouble maintaining his dialysis schedule because of neck pain. He does have chronic severe neck pain for the last approximately one year as well as seizure disorder for the last 1 year. Last seizure was about April 2017 2 months ago and was admitted at that time had infiltration of his fistula in the right forearm and needed a permacath for 2 weeks. Workup so far has shown a normal computed tomography scan and Doppler flow of his carotids. Electrolytes was normal except except the very high creatinine of 90 His ESRD secondary to multiple stone. He has strong family history of kidney stone. He has not been on a transplant list or has had any transplant. Supposedly he has had tolerance with different dialysis unit and has moved from one dialysis unit to other probably based on relationships with the staff and conflicts. This morning his complaining of nausea vomiting as of last night but was able to eat his breakfast well today. Continues to have severe pain in his neck. Yesterday during dialysis he almost clamped his own lines and had arguments with the dialysis nurse. He is dialysis was terminated somewhat early a few minutes because of his insistence we have taken off 2 L but he was given back to 250 mL to see if his blood pressure will improve as his blood pressure got up on the dialysis. Objective - Vital Signs Vital signs: Vital Signs Temp 98.4 F 07/07/17 03:45 Pulse 76 07/07/17 03:45 Resp 18 07/07/17 03:45 BP 188/99 07/07/17 03:45 Pulse Ox 93 L 07/07/17 03:45 Intake & Output 08/07/07/17 07/07/17 18:59 06:59 18:59 Intake Total 240 Output Total 300 Balance -300 240 Weight 62.142 kg 59.7 kg Intake: Oral 240 Output: Urine 300 Other: Voiding Method Toilet # Voids 1 On examination he is awake alert oriented seems to be comfortable. HEENT exam no JVP neck is supple no facial asymmetry Lungs are clear to auscultation percussion good air entry bilaterally Heart sounds are unremarkable no murmur rub gallop Abdomen soft nontender no masses Extremity exam was no edema Neurologic awake alert oriented 3 no focal motor deficit. He has 5/5 strength in both upper and lower extremities bilaterally - Labs CBC & Chem 7: 07/07/17 06:27 07/07/17 06:27 Labs: Abnormal Lab Results - Last 24 Hours (Table) 07/06/17 07/06/17 07/07/17 Range/Units 08:00 08:00 06:27 RBC (4.30-5.90) m/uL Hgb (13.0-17.5) gm/dL MCV (80.0-100.0) fL RDW (11.5-15.5) % Plt Count (150-450) k/uL Sodium 136 L (137-145) mmol/L Chloride 94 L (98-107) mmol/L BUN 41 H (9-20) mg/dL Creatinine 19.46 H* 13.95 H* (0.66-1.25) mg/dL Glucose 63 L (74-99) mg/dL Total Creatine Kinase 405 H (55-170) U/L CK-MB (CK-2) 7.5 H* (0.0-2.4) ng/mL Triglycerides 237 H (<150) mg/dL Cholesterol 241 H (<200) mg/dL LDL Cholesterol, Calc 144 H (0-99) mg/dL 07/07/17 Range/Units 06:27 RBC 4.01 L (4.30-5.90) m/uL Hgb 12.9 L (13.0-17.5) gm/dL MCV 102.6 H (80.0-100.0) fL RDW 18.0 H (11.5-15.5) % Plt Count 126 L (150-450) k/uL Sodium (137-145) mmol/L Chloride (98-107) mmol/L BUN (9-20) mg/dL Creatinine (0.66-1.25) mg/dL Glucose (74-99) mg/dL Total Creatine Kinase (55-170) U/L CK-MB (CK-2) (0.0-2.4) ng/mL Triglycerides (<150) mg/dL Cholesterol (<200) mg/dL LDL Cholesterol, Calc (0-99) mg/dL Assessment and Plan Plan: Impression. 1. ESRD on dialysis Saturday secondary to kidney stones, strong family history, on hemodialysis for 8 years with a right forearm fistula. 2. Admitted with possible TIA with numbness tingling left side starting 6 AM Saturday morning 07/06/2017 , almost recovered by 11 AM. His blood pressure was 215/117 when he came in, He usually runs high blood pressure in the 200 range therefore it will be somewhat difficult to assign this as the cause of his neurological complaint. 3. Uncontrolled hypertension on amlodipine 5 mg and lisinopril 20 twice a day 3. History of neck pain for last 1 year with worsening the last 2 weeks after starting physiotherapy. He has had chiropractic this procedure is done for this. Consider cervical spine stenosis as cause of his neurological symptoms. Neurology is following 4. Extremity of difficulty in dealing the dialysis staff and moving from multiple dialysis units. History of noncompliance with terminating dialysis earlier than usual and missing dialysis because of neck pain 5. History of seizure disorder for the last 1 year so far 3 seizures last one was in April 2017 2 months ago. Etiology unclear 6. Transient chest discomfort atypical. Lasted for maybe a few minutes 4-5 minutes, troponin is 0.033. 7. Mild metabolic acidosis bicarb is 23, patient is on sodium bicarb. 8. Smoker currently on nicotine patch Medication. Recommendations. Will increase his amlodipine from 5 mg to 10 mg. Next dialysis will be Saturday. Pending MRI of the spine. Monitor hemoglobin, calcium phosphorus albumin
[2017-07-07] MEDS ORDERED: NICOTINE 14MG/24HR PATCH TRANSDERM SCH (09:00)
[2017-07-07] MEDS ORDERED: FAMOTIDINE 20 MG TAB PO SCH (09:00)
[2017-07-07] MEDS ORDERED: amLODIPine 10 MG TAB PO SCH (09:00)
[2017-07-07 09:25] VITALS: BP 158/92; PULSE 75; RESP 16
--- NOTE | 2017-07-07 09:44 | P.CNOR ---
History of Present Illness - [facility] Consult date: 07/07/17 Consult reason: low back pain, neck pain History of present illness: Patient is a 47-year-old male who says he has long-standing history of neck and low back pain. Yesterday he was admitted because he had significant change in his sensation in his left upper and left lower extremity refilled was leaving him and tingly for him. He says that this is not usually happen for him and he was admitted and evaluated in regards to possible TIA and hypertensive crisis. He says he has been having significant neck and back pain over the past 8 years and it started after he was pulling a cord of his snowblower the [place] and torqued him around. He has a long-standing history of renal failure and has been on dialysis over the past 8 years and he states that it was due to multiple kidney stones. He denies weakness at his upper or lower extremities. He says that the tingling is significant improved today. He says he continues to have pain at his neck and lower back and certain positions. He is able to get up and around he is able to move his neck and lower back. He denies any fevers or chills. He says the pain is so significant that he is unable to sit for prolonged periods time area and he says he has to sit 3 hours 3 times a week for his dialysis but is unable to do this because the pain at his neck and his lower back and he was laid down during this treatments. He has been going through treatment for his neck and back pain with Dr. Perez has an outpatient. He has been going through physical therapy as well as interventional pain management with injections of his cervical and lumbar spine. He has tried to use braces for his back as well and is for his neck as well without any relief. Review of Systems As stated per HPI. He says the tingling in his left upper and left lower extremity are significant improved. He does not feel weak and extremities. His neck still has significant pain that he says happens when he has to sit or stand for long period time or in certain positions. Past Medical History Past Medical History: Hypertension, Musculoskeletal Disorder (He has had neck pain and low back pain over the past 8 years as well. He has been through significant conservative treatment as outpatient), Renal Disease (He has required hemodialysis for the past 8 years), Seizure Disorder Additional Past Medical History / Comment(s): kidney failure hemodialysis History of Any Multi-Drug Resistant Organisms: None Reported Additional Past Surgical History / Comment(s): fistula for dialysis lithotripsy kidney stents Past Psychological History: No Psychological Hx Reported Smoking Status: Current every day smoker Past Alcohol Use History: None Reported Past Drug Use History: None Reported - Past Family History Father Family Medical History: Cancer, CVA/TIA Mother Family Medical History: CVA/TIA Medications and Allergies Home Medications Medication Instructions Recorded Confirmed Type Calcium Acetate [Phoslo] 667 mg PO TID-W/MEALS 11/22/16 07/06/17 History Sevelamer [Renvela] 800 mg PO TID-W/MEALS 11/22/16 07/06/17 History Sodium Bicarbonate Tab 650 mg PO BID 11/22/16 07/06/17 History Lisinopril [Zestril] 20 mg PO BID 06/14/17 07/06/17 History amLODIPine [Norvasc] 5 mg PO DAILY 06/14/17 07/06/17 History Acetaminophen-Codeine 300-30mg 1 tab PO Q8H PRN 07/06/17 07/06/17 History [Tylenol #3] levETIRAcetam [Keppra] 500 mg PO Q12HR 07/06/17 07/06/17 History Allergies Allergy/AdvReac Type Severity Reaction Status Date / Time No Known Allergies Allergy Verified 07/06/17 11:24 Physical Examination Osteopathic Statement: *. No significant issues noted on an osteopathic structural exam other than those noted in the History and Physical/Consult. - C Spine: dermatomal strength & reflexes bilateral Shoulder strength: flexion: 5/5 (At his neck he has full active and passive range of motion. There is no crepitus. He has some paravertebral spasm and has some tenderness over his C7 spinous process. There is no wounds lacerations or abrasions. He has negative Spurling's. His upper extremities have full active and passive range of motion with 5 out of 5 strength in his shoulders elbows wrists and fingers. He has palpable bruits at his right upper extremity from his prior AV fistulas. He is negative Quang's there is no hyperreflexia. At his lower extremity she has sustained dorsiflexion plantar flexion and extensor hallucis longus with 5 out of 5 strength. He has no pain with internal/external rotation of his hips. He is able to flex his legs up off the bed independently. His back is nontender over the midline he has some paravertebral spasm. Pelvis stable to rock. Calves and thighs soft nontender. Sensory is intact throughout.) Results - Labs Labs: Abnormal Lab Results - Last 24 Hours (Table) 07/07/17 07/07/17 Range/Units 06:27 06:27 RBC 4.01 L (4.30-5.90) m/uL Hgb 12.9 L (13.0-17.5) gm/dL MCV 102.6 H (80.0-100.0) fL RDW 18.0 H (11.5-15.5) % Plt Count 126 L (150-450) k/uL Sodium 136 L (137-145) mmol/L Chloride 94 L (98-107) mmol/L BUN 41 H (9-20) mg/dL Creatinine 13.95 H* (0.66-1.25) mg/dL Glucose 63 L (74-99) mg/dL Triglycerides 237 H (<150) mg/dL Cholesterol 241 H (<200) mg/dL LDL Cholesterol, Calc 144 H (0-99) mg/dL H & H 07/06/17 07/07/17 Range/Units 08:00 06:27 Hgb 12.6 L 12.9 L (13.0-17.5) gm/dL Hct 37.1 L 41.2 (39.0-53.0) % Coagulation 07/06/17 Range/Units 08:00 INR 1.1 (<1.2) Result Diagrams: 07/07/17 06:27 07/07/17 06:27 - Diagnostic results Cervical AP/lateral x-ray: report reviewed, image reviewed (He had a cervical thoracic and lumbar x-rays in March of this year and I have reviewed the pictures as well as reports. At his cervical spine there is some disc degeneration C5 6 C6 7 with some disc height loss. There is no obvious fracture or dislocation. There is no severe deformity. He does have some ossific spurring and some loss of the cervical lordosis. His thoracic spine does not have obvious fractures or dislocations at his lumbar spine he has some degenerative changes at L3 4 and L4 5 with good maintained disc height with a subtle ritual listhesis L3 4.) Lumbar AP/lateral x-ray: report reviewed, image reviewed Assessment and Plan Plan: Chronic cervical spine pain Exacerbation of cervical spondylosis Chronic low back pain Degenerative disc disease C5 6 C6 7 Left upper extremity numbness and tingling which is improving Left lower extremity numbness tingling which is improving Chronic renal failure on dialysis past 8 years The patient has had significant issues with his cervical and lumbar spine for extended period over the past several years. He had an exacerbation of his symptoms and had some neurologic change at his left upper and left lower extremity yesterday which appears to be resolving appropriately. It is difficult to determine if this is radicular in nature. He has been worked up to evaluate for the possibility of TIA or CVA which does not appear to be the case. He is been going through significant inserted measures for his cervical and lumbar spine as outpatient which have been appropriate. He has had physical therapy as well as interventional pain management. He has not had a MRI of his spine and I think an MRI is an appropriate procedure for him given his extended symptoms, medical history as well as his exacerbation of his symptoms and prior treatments. An MRI of his cervical spine has been ordered and I think this is appropriate. His cervical spine is giving him his primary pain and making it difficult for him to undergo his treatments for dialysis. 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 If he is having significant stenosis this may be contributing to his persistent pain and he would be a candidate for the possibility of surgical intervention and stabilization if the MRI imaging is consistent with his symptoms. I discussed this with him and he understands. He is not having acute neurologic deficit currently and I do not plan emergent surgery at this point. We will await the MRI findings. He should continue with his medical management for now.
[2017-07-07] MEDS: SEVELAMER 800 MG TAB PO SCH (10:24)
[2017-07-07] MEDS: SODIUM BICARBONATE TAB 650 MG TAB PO SCH (10:25)
[2017-07-07] MEDS: levETIRAcetam 500 MG TAB PO SCH (10:25)
[2017-07-07] MEDS: LISINOPRIL 20 MG TAB PO SCH (10:25)
--- NOTE | 2017-07-07 11:02 | ECHOF ---
Referral Reason:lvfunction MEASUREMENTS -------- HEIGHT: 162.6 cm WEIGHT: 62.1 kg BP: 153/79 IVSd: 1.4 cm (0.6 - 1.1) LVIDd: 4.7 cm (3.9 - 5.3) LVPWd: 1.4 cm (0.6 - 1.1) IVSs: 1.7 cm LVIDs: 3.9 cm LVPWs: 1.7 cm LAESV Index (A-L): 39.22 ml/m Ao Diam: 3.4 cm (2.0 - 3.7) AV Cusp: 2.0 cm (1.5 - 2.6) LA Diam: 2.5 cm (2.7 - 3.8) MV EXCURSION: 21.171 mm (> 18.000) MV EF SLOPE: 75 mm/s (70 - 150) EPSS: 1.2 cm MV E To: 0.80 m/s MV DecT: 297 ms MV A To: 1.01 m/s MV E/A Ratio: 0.80 RAP: 5.00 mmHg RVSP: 14.63 mmHg FINDINGS -------- Sinus rhythm. This was a technically good study. There is moderate concentric left ventricular hypertrophy. Overall left ventricular systolic function is normal with, an EF between 55 - 60 %. The right ventricle is normal in size and function. LA is moderately dilated 34-39 ml/m2 The right atrium is normal in size. Aortic valve is trileaflet and is mildly thickened. There is no evidence of aortic regurgitation. There is no evidence of aortic stenosis. The mitral valve leaflets are mildly thickened. There is trace mitral regurgitation. Trace tricuspid regurgitation present. There is no evidence of pulmonary hypertension. The right ventricular systolic pressure, as measured by Doppler, is 14.63mmHg. The pulmonic valve is normal. The aortic root size is normal. Normal inferior vena cava with normal inspiratory collapse consistent with estimated right atrial pressure of 5 mmHg. The pericardium is normal. There is no pericardial effusion. CONCLUSIONS -------- 1. Sinus rhythm. 2. There is no evidence of pulmonary hypertension. 3. The right ventricular systolic pressure, as measured by Doppler, is 14.63mmHg. 4. The aortic root size is normal. 5. There is no pericardial effusion. 6. This was a technically good study. 7. There is moderate concentric left ventricular hypertrophy. 8. Overall left ventricular systolic function is normal with, an EF between 55 - 60 %. 9. LA is moderately dilated 34-39 ml/m2 10. Aortic valve is trileaflet and is mildly thickened. 11. The mitral valve leaflets are mildly thickened. 12. There is trace mitral regurgitation. 13. Trace tricuspid regurgitation present. VIDEO EDITING INTERN: Eugenio Condon RDCS
--- NOTE | 2017-08-21 14:12 | P.DS ---
Providers Date of admission: 07/06/17 10:44 Expected date of discharge: 07/07/17 Attending physician: Kg Bruno Consults: 07/06/17 10:44 Consult Physician Routine Consulting Provider: Maricarmen Figueroa Consult Reason/Comments: Chronic renal failure Do you want consulting provider notified?: Yes 07/06/17 10:45 Consult Physician Routine Consulting Provider: Manuel Viveros Consult Reason/Comments: tia Do you want consulting provider notified?: Yes 07/07/17 08:00 Consult Physician Urgent Consulting Provider: Brett Benjamin Consult Reason/Comments: Acute cervical spondylosis Do you want consulting provider notified?: Yes Primary care physician: Jaylen Holguin [facility] Course: 47-year-old male one of Dr. Holguin patient with past medical history of end-stage renal disease on hemodialysis 3 times a week he goes to the [facility] for dialysis and he seen nephrology on regular basis. Patient woke up this morning with tingling sensation in the left side of his body and arm with weakness in the left upper extremity as well he ended up coming to the emergency department at [facility] found to have severely urgent hypertension with a blood pressure above 200. By the time his blood pressure subtle down his symptoms has improved significantly. Patient also continued to have significant pain and discomfort in the neck area. His creatinine surprisingly running 18 has not done well with dialysis over the last 2 sessions apparently he had more infiltrate of the forearm around his fistula with dialysis when he was in dialysis on Saturday and had trouble on as well. Patient apparently has been seen Dr. Perez for the last few month has been suffering from severe lower back pain and severe neck pain had injection physical therapy and try medication. MRI apparently was not done yet because of his insurance status. Patient continued to be on pain management with no weakness of the upper extremity from his neck pain up till now. Patient never had any episode of TIA or CVA in the past for as far as you remember. Echocardiogram reveals EF of 55-60%, moderate concentric left ventricle hypertrophy, trace mitral regurgitation, trace tricuspid regurgitation. Carotid ultrasound shows no significant stenosis. He has been seen and followed by Dr. Viveros for TIA and suspected cervical spondylosis with recommendations for MRI of the cervical spine in consultation with orthopedic spine surgeon. Patient is continued on aspirin daily for secondary stroke prevention. Patient has been followed by nephrology and maintained on hemodialysis and also amlodipine was increased to 10 mg. His next dialysis is scheduled for Saturday. Patient was seen by Dr. Benjamin with recommendations for MRI of the cervical spine. Discharge diagnoses: 1 TIA/ 2 urgent hypertension 3 end-stage renal disease on hemodialysis 4 severe cervical pain 5 seizure 6 smoking: Smoking cessation was addressed 7 severe GERD 8 Mild anemia due to chronic renal disease 9 thrombocytopenia Discharge plan: Home Impression and plan of care have been directed as dictated by the signing physician. Doretha Brumfield nurse practitioner acting as scribe for signing physician. Patient Condition at Discharge: Good Plan - Discharge Summary New Discharge Prescriptions: New Nicotine 14Mg/24Hr Patch [Habitrol] 1 patch TRANSDERM DAILY patch Continue Sodium Bicarbonate Tab 650 mg PO BID Calcium Acetate [PhosLo] 667 mg PO TID-W/MEALS Lisinopril [Zestril] 20 mg PO BID Acetaminophen-Codeine 300-30mg [Tylenol w/codeine #3] 1 tab PO Q8H PRN PRN Reason: Pain No Action Ergocalciferol (Vitamin D2) [Vitamin D2] 50,000 unit PO Q30D Methocarbamol [Robaxin] 750 mg PO TID amLODIPine [Norvasc] 5 mg PO BID tab cloNIDine HCL [Catapres] 0.3 mg PO BID #120 tab hydrALAZINE HCL [Apresoline] 50 mg PO BID #60 tab levETIRAcetam [Keppra] 750 mg PO Q12HR #60 tab Melatonin 5 mg PO HS tab QUEtiapine [SEROquel] 25 mg PO HS #30 tab Sevelamer [Renvela] 1,600 mg PO TID-W/MEALS #0 tab Aspirin 325 mg PO DAILY #30 tab Atorvastatin [Lipitor] 20 mg PO DAILY #30 tablet Discharge Medication List Calcium Acetate [PhosLo] 667 mg PO TID-W/MEALS 11/22/16 [History] Sodium Bicarbonate Tab 650 mg PO BID 11/22/16 [History] Lisinopril [Zestril] 20 mg PO BID 06/14/17 [History] Acetaminophen-Codeine 300-30mg [Tylenol w/codeine #3] 1 tab PO Q8H PRN 07/06/17 [History] Nicotine 14Mg/24Hr Patch [Habitrol] 1 patch TRANSDERM DAILY patch 07/07/17 [Rx] Ergocalciferol (Vitamin D2) [Vitamin D2] 50,000 unit PO Q30D 07/21/17 [History] Methocarbamol [Robaxin] 750 mg PO TID 07/22/17 [History] Aspirin 325 mg PO DAILY #30 tab 07/27/17 [Rx] Atorvastatin [Lipitor] 20 mg PO DAILY #30 tablet 07/27/17 [Rx] Melatonin 5 mg PO HS tab 07/27/17 [Rx] QUEtiapine [SEROquel] 25 mg PO HS #30 tab 07/27/17 [Rx] Sevelamer [Renvela] 1,600 mg PO TID-W/MEALS #0 tab 07/27/17 [Rx] amLODIPine [Norvasc] 5 mg PO BID tab 07/27/17 [Rx] cloNIDine HCL [Catapres] 0.3 mg PO BID #120 tab 07/27/17 [Rx] hydrALAZINE HCL [Apresoline] 50 mg PO BID #60 tab 07/27/17 [Rx] levETIRAcetam [Keppra] 750 mg PO Q12HR #60 tab 07/27/17 [Rx] Follow up Appointment(s)/Referral(s): Brett Benjamin DO [Doctor of Osteopathic Medicine] - 1 Week Clay Perez MD [STAFF PHYSICIAN] - 1 Week Jaylen Holguin MD [Primary Care Provider] - 1-2 days Ambulatory/Diagnostic Orders: Miscellaneous Radiology Order [RAD.AMB] Location: Determined By Patient Patient Instructions/Handouts: Transient Ischemic Attack (DC) Discharge Disposition: HOME SELF-CARE
== END 2017-07-07 12:36 | disposition home or self-care (01) | DRG 69 ==
LOC: EC 07:28 → 6SEL 10:44
PROVIDERS: ADMIT Internal Medicine Geriatric Medicine; ATTEND Internal Medicine Geriatric Medicine
DX: G45.9 Transient cerebral ischemic attack, unspecified (principal); G93.40 Encephalopathy, unspecified; N18.6 End stage renal disease; I12.0 Hypertensive chronic kidney disease with stage 5 chronic kidney disease or end stage renal disease; D69.6 Thrombocytopenia, unspecified; I08.1 Rheumatic disorders of both mitral and tricuspid valves; D63.1 Anemia in chronic kidney disease; F17.200 Nicotine dependence, unspecified, uncomplicated; G40.909 Epilepsy, unspecified, not intractable, without status epilepticus; I16.0 Hypertensive urgency; K21.9 Gastro-esophageal reflux disease without esophagitis; M47.812 Spondylosis without myelopathy or radiculopathy, cervical region; R07.89 Other chest pain; M54.5 Low back pain; G89.29 Other chronic pain; R01.1 Cardiac murmur, unspecified; Z79.899 Other long term (current) drug therapy; Z99.2 Dependence on renal dialysis
CPT/HCPCS: 36415; 70450; 71020; 80053; 80061; 80177; 82550; 82553; 84100; 84484; 85025; 85610; 85730; 90935; 93005; 93306; 93880; 96361; 96374; 96375; 96376; 99285

== ENCOUNTER → 2017-07-10 | Outpatient (CLI) | payer MEDICARE, BC ==
--- NOTE | 2017-07-10 14:34 | MR ---
EXAMINATION TYPE: MR cervical spine wo con DATE OF EXAM: 07/10/2017 COMPARISON: Plain film 04/10/2017 HISTORY: csp radiculopathy, pain, gaming, spasms TECHNIQUE: Multiplanar, multisequence images of the cervical spine were acquired. C2-C3: No evident disc herniation. Left neural foramen shows vertebral artery coursing in close proxi mity to the exiting nerve root. C3-C4: Moderate central stenosis is present due to posterior extension of endplate disc complex causi ng anterior mass effect on the thecal sac, there may be cord contact. Foraminal encroachment is prese nt right greater than left. C4-C5: Posterior extension of endplate disc complex results in moderate central canal stenosis, later al extension of endplate disc complex causes bilateral foraminal encroachment. C5-C6: Posterior extension of endplate disc complex causes mild anterior mass effect on the thecal sa c. Lateral extension of endplate disc complex encroaches somewhat on the neural foramen on the right. Only mild central stenosis. C6-C7: Posterior extension of endplate disc complex causes anterolateral mass effect on the thecal sa c, there is mild central canal stenosis, lateral extension of endplate disc complex causes foraminal encroachment on the left. C7-T1: No evidence for degenerative disc disease. No disc bulge/herniation or protrusion. No Canal stenosis. Foramina are patent bilaterally. Cervical segments are intact. There is near normal alignment, minimal retrolisthesis grade 1 C3-4, C 4-5 and C6-7. Cervical spinal cord is showing areas of increased signal on T2-weighted sequences sug gestive of myelomalacia especially at C3-4 level, some possibly C4-5 posteriorly Craniovertebral junc tion relationships are within normal limits. There is multilevel spondylosis. Loss of disc height an d signal present at the intervertebral levels, there is endplate discogenic marrow signal change. IMPRESSION: Multilevel degenerative disc disease, spinal stenosis with some suggestion of myelomalacia. Multileve l foraminal encroachment. Tortuous vertebral artery on the left is in close proximity to the left C2 nerve root.
== END | disposition home or self-care (01) ==
LOC: RADMRIMAIN 13:35
PROVIDERS: ATTEND Orthopaedic Surgery Orthopaedic Surgery of the Spine
DX: M48.02 Spinal stenosis, cervical region (principal); M50.30 Other cervical disc degeneration, unspecified cervical region
CPT/HCPCS: 72141

== ENCOUNTER 2017-07-21 00:50 | Inpatient (IN) | payer BC, MEDICARE ==
[2017-07-21] MEDS ORDERED: levETIRAcetam IV 1,000 MG in SALINE 1 100ML.BAG IVPB STA (00:54)
[2017-07-21 01:06] LABS: Glucose,Whole Blood 148 mg/dL (75-99)
[2017-07-21 01:23] LABS: Anisocytosis Slight; Basophils # (A) 0.1 k/uL (0-0.2); Basophils % (A) 1 %; CH 32.3; CHCM 32.1; Eosinophils # (A) 0.1 k/uL (0-0.7); Eosinophils % (A) 1 %; HCT 37.3 % (39.0-53.0); HDW 3.05; HGB 12.5 gm/dL (13.0-17.5); Hypochromasia Slight; Luc # (Auto) 0.15; Luc % (Auto) 1; Lymphocytes # (A) 0.8 k/uL (1.0-4.8); Lymphocytes % (A) 7 %; MCH 33.7 pg (25.0-35.0); MCHC 33.4 g/dL (31.0-37.0); Macrocytosis Slight; Mean Platelet Volume 7.9; Monocytes # (A) 0.5 k/uL (0-1.0); Monocytes % (A) 4 %; Neutrophils % (A) 85 %; RBC 3.69 m/uL (4.30-5.90); RDW 16.6 % (11.5-15.5); WBC 10.5 k/uL (3.8-10.6); WBC (Perox) 10.58
[2017-07-21] MEDS ORDERED: LORazepam 2 MG/ML SYRINGE IV STA ×2 (01:35→01:36)
[2017-07-21 01:37] LABS: ALT 24 U/L (21-72); AST 20 U/L (17-59); Alcohol <10 mg/dL; Alkaline Phosphatase 89 U/L (38-126); Anion Gap 24 mmol/L; Blood Urea Nitrogen 79 mg/dL (9-20); Calcium 8.3 mg/dL (8.4-10.2); Carbon Dioxide 14 mmol/L (22-30); Chloride 102 mmol/L (98-107); Glucose 129 mg/dL (74-99); Potassium 5.1 mmol/L (3.5-5.1); Sodium 140 mmol/L (137-145); Total Bilirubin 0.9 mg/dL (0.2-1.3); Total Protein 6.1 g/dL (6.3-8.2)
[2017-07-21 01:53] LABS: Non-African American GFR(MDRD) 3 (>60 ml/min/1.73 sqM)
[2017-07-21] MEDS ORDERED: LABETALOL 5 MG/ML VIAL MDV IVP STA ×3 (01:56→10:05)
--- NOTE | 2017-07-21 02:14 | XR ---
EXAM: XR Chest, 1 View CLINICAL HISTORY: Reason: Pain TECHNIQUE: Frontal view of the chest. COMPARISON: 07/06/2017. FINDINGS: Lungs: Bibasilar and, to a lesser extent, bilateral hilar infiltrates are seen, marked interval worsening since the prior study. Pleural space: No definitive evidence of pleural effusion. Heart: Unremarkable. No cardiomegaly. Mediastinum: Unremarkable. Bones/joints: Unchanged osseous structures. IMPRESSION: Bibasilar and, to a lesser extent, bilateral hilar infiltrates are seen, marked interval worsening since the prior study. Attention on follow-up recommended.
[2017-07-21] MEDS ORDERED: NITROGLYCERIN-D5W PMX 50 MG in DEXTROSE/WATER 1 250ML.BAG IV ONE (02:34)
[2017-07-21] MEDS ORDERED: ASPIRIN 300 MG SUPP RECTAL STA (04:06)
--- NOTE | 2017-07-21 04:07 | CT ---
EXAM: CT Head Without Intravenous Contrast CLINICAL HISTORY: Reason: seizure activity TECHNIQUE: Axial computed tomography images of the head/brain without intravenous contrast. CTDIvol: 57.4 mGy DLP: 1029.9 mGy-cm. This CT exam was performed using one or more of the following dose reduction techniques: automated exposure control, adjustment of the mA and/or kV according to patient size, and/or use of iterative reconstruction technique. COMPARISON: CT head 07/06/17 FINDINGS: No evidence for acute intracranial hemorrhage or hydrocephalus. No evidence for a depressed calvarial fracture. Dehiscence of the left lamina papyracea with herniation of the medial extraconal fat with mild medial deviation of the medial rectus muscle. There is a new approximately 1.3 cm hypoattenuation in the left thalamus with mild expansion. There may be mild scattered periventricular and subcortical hypoattenuation, nonspecific but likely related to chronic microvascular ischemic changes. Intracranial vascular calcifications. The bilateral mastoid air cells are essentially clear. Minimal mucosal thickening of the left maxillary sinus. Mild mucosal thickening of the bilateral ethmoid sinuses. Mild degenerative changes of the bilateral temporomandibular joints. Punctate dermal hyperdensity at the right pre maxillary region. Please correlate for foreign body. IMPRESSION: 1. There is a new hypoattenuation in the left thalamus with mild expansion. Differential considerations include an evolving infarction, toxic metabolic process, or infectious process. MRI is recommended for further evaluation. 2. Punctate dermal hyperdensity at the right premaxillary region. Please correlate for foreign body. 3. Dehiscence of the left lamina papyracea [employer] 07/21/17 03:58 Call Doctor Regarding Above results, called Dr. De La Paz on 07/21 03:56 (-04:00) 07/21/17 04:15 Verify Receipt Verified receipt with SADIE Whitten, given to Dr. De La Paz on 07/21 04:14 (-04:00)
[2017-07-21] MEDS ORDERED: ACETAMINOPHEN SUPPOSITORY 650 MG SUPP RECTAL PRN (04:11)
[2017-07-21] MEDS ORDERED: NALOXONE 0.4 MG/ML 1 ML VIAL IV PRN (04:11)
[2017-07-21] MEDS: SODIUM CHLORIDE 0.9% 1,000 ML IV SCH (04:34)
[2017-07-21 04:38] LABS: Appearance,Urine Clear (Clear); Bilirubin,Urine Negative (Negative); Glucose,Urine (UA) 2+ (Negative); Ketones,Urine Negative (Negative); Leukocyte Esterase,Urine Negative (Negative); Nitrite,Urine Negative (Negative); Particle Count 1009; Protein,Urine 3+ (Negative); RBC,Urine 3 /hpf (0-5); Specific Gravity,Urine 1.005 (1.001-1.035); UA Billing (MACRO vs. MICRO) MICRO; Urobilinogen,Urine <2.0 mg/dL (<2.0); WBC,Urine 1 /hpf (0-5)
--- NOTE | 2017-07-21 04:39 | ED ---
General Adult HPI - General Chief complaint: Seizure Stated complaint: Seizure Time Seen by Provider: 07/21/17 00:53 Source: patient, family, EMS, RN notes reviewed, old records reviewed Mode of arrival: EMS - History of Present Illness Initial comments: 47-year-old male with history of end-stage renal disease, head CT disorder presents from home with generalized seizure. This was approximately 3 minutes in duration. Upon EMS arrival patient was not combustion, postictal. Patient presents to the emergency department, he is somewhat drowsy but able to answer questions. Denies any focal weakness. Denies any chest pain or shortness of breath. Denies headache. Denies abdominal pain. Denies nausea or vomiting. He denies missing any of his medication. He is on Keppra 500 mg twice a day. His last hemodialysis was Saturday he has missed 2 sessions. Patient's is at bedside. - Related Data Home Medications Medication Instructions Recorded Confirmed Calcium Acetate [PhosLo] 667 mg PO TID-W/MEALS 11/22/16 07/06/17 Sevelamer [Renvela] 800 mg PO TID-W/MEALS 11/22/16 07/06/17 Sodium Bicarbonate Tab 650 mg PO BID 11/22/16 07/06/17 Lisinopril [Zestril] 20 mg PO BID 06/14/17 07/06/17 amLODIPine [Norvasc] 5 mg PO DAILY 06/14/17 07/06/17 Acetaminophen-Codeine 300-30mg 1 tab PO Q8H PRN 07/06/17 07/06/17 [Tylenol w/codeine #3] levETIRAcetam [Keppra] 500 mg PO Q12HR 07/06/17 07/06/17 Previous Rx's Medication Instructions Recorded Acetaminophen Tab [Tylenol] 650 mg PO Q4HR PRN tab 07/07/17 Nicotine 14Mg/24Hr Patch [Habitrol] 1 patch TRANSDERM DAILY patch 07/07/17 cloNIDine HCL [Catapres] 0.1 mg PO QID PRN #60 tab 07/07/17 Allergies Allergy/AdvReac Type Severity Reaction Status Date / Time No Known Allergies Allergy Verified 07/06/17 11:24 Review of Systems ROS Statement: Those systems with pertinent positive or pertinent negative responses have been documented in the HPI. ROS Other: All systems not noted in ROS Statement are negative. Past Medical History Past Medical History: Hypertension, Musculoskeletal Disorder (He has had neck pain and low back pain over the past 8 years as well. He has been through significant conservative treatment as outpatient), Renal Disease (He has required hemodialysis for the past 8 years), Seizure Disorder Additional Past Medical History / Comment(s): kidney failure hemodialysis History of Any Multi-Drug Resistant Organisms: None Reported Additional Past Surgical History / Comment(s): fistula for dialysis lithotripsy kidney stents Past Psychological History: No Psychological Hx Reported Smoking Status: Current every day smoker Past Alcohol Use History: None Reported Past Drug Use History: None Reported - Past Family History Father Family Medical History: Cancer, CVA/TIA Mother Family Medical History: CVA/TIA General Exam General appearance: lethargic, in distress Head exam: Present: atraumatic, normocephalic Eye exam: Present: normal appearance, PERRL ENT exam: Present: normal exam, mucous membranes moist Neck exam: Present: full ROM. Absent: tenderness, meningismus Respiratory exam: Present: normal lung sounds bilaterally. Absent: respiratory distress Cardiovascular Exam: Present: normal rhythm, tachycardia GI/Abdominal exam: Present: soft. Absent: distended, tenderness Extremities exam: Present: normal inspection, full ROM, normal capillary refill. Absent: pedal edema Neurological exam: Present: alert, CN II-XII intact. Absent: motor sensory deficit Psychiatric exam: Present: normal affect, normal mood Skin exam: Present: warm, dry, intact. Absent: cyanosis, diaphoretic Course Vital Signs 07/21/17 07/21/17 07/21/17 01:13 01:32 01:42 Temperature 97.9 F Pulse Rate 65 146 H 140 H Respiratory 18 32 H 32 H Rate Blood Pressure 228/130 252/148 248/118 O2 Sat by Pulse 97 97 100 Oximetry 07/21/17 07/21/17 07/21/17 01:51 01:59 02:05 Temperature Pulse Rate 139 H 128 H 102 H Respiratory 30 H 30 H 30 H Rate Blood Pressure 226/133 223/124 204/112 O2 Sat by Pulse 97 88 L 92 L Oximetry 07/21/17 07/21/17 07/21/17 02:10 02:15 02:20 Temperature Pulse Rate 101 H 103 H 100 Respiratory 30 H 28 H 28 H Rate Blood Pressure 189/113 203/119 194/102 O2 Sat by Pulse 94 L 94 L 97 Oximetry 07/21/17 07/21/17 07/21/17 02:25 02:40 02:50 Temperature Pulse Rate 101 H 97 94 Respiratory 28 H 28 H 28 H Rate Blood Pressure 193/106 207/124 200/112 O2 Sat by Pulse 96 97 98 Oximetry 07/21/17 07/21/17 07/21/17 03:00 03:25 03:35 Temperature Pulse Rate 92 90 88 Respiratory 28 H 28 H 28 H Rate Blood Pressure 205/119 199/107 202/109 O2 Sat by Pulse 98 99 99 Oximetry 07/21/17 07/21/17 07/21/17 03:45 03:55 04:05 Temperature Pulse Rate 90 86 93 Respiratory 28 H 28 H 28 H Rate Blood Pressure 204/114 203/113 199/115 O2 Sat by Pulse 99 99 99 Oximetry EKG Findings - EKG Comments: EKG Findings:: EKG shows sinus tachycardia, ventricular rate of 1:15, MI interval 126, QRS duration 82, QTC 448, there is hyperacute peaked T waves in the precordium. No signs of ST segment elevation. Medical Decision Making - Medical Decision Making 47-year-old male presenting with seizure. Patient has missed hemodialysis for the past 2 sessions. Initial blood pressure 240/130. Patient is initially lethargic and postictal, he is able to answer simple questions. His neurologic examination is nonfocal. While in the emergency department patient has a second generalized tonic-clonic seizure. He is tachycardic, erratic respirations. Patient does receive a total of 4 mg of Ativan. He was loaded with Keppra 1 g. Patient's blood pressure and heart rate remained elevated, to 30 systolic over 130s diastolic, heart rate in the 130s to 150s. He does receive 20 mg of labetalol which improves his heart rate and blood pressure. He started on nitroglycerin drip. Chest x-ray shows pulmonary edema consistent with fluid overload. Laboratory studies reveal hemoglobin 12.5 which is stable, BUN of 79, lactic acid of 6.0 consistent with seizure. Potassium is normal at 5.1. Patient remains postictal, he is protecting his airway, he will respond to verbal stimuli. Patient's head CT shows left thalamic infarction. Given the patient's elevated blood pressure in seizure activity is no TPA candidate. Case is discussed with Dr. Doss regarding placement in ICU. Case is discussed with Dr. Rod regarding hypertensive emergency and fluid overload secondary to missing hemodialysis, he will arrange for urgent hemodialysis in am. Case is discussed with Dr. Perez regarding CVA, patient will be given rectal aspirin and MRI of the brain will be ordered. Diagnosis: Status epilepticus, prolonged postictal period, left thalamic CVA, hypertensive emergency, fluid overload. - Lab Data Result diagrams: 07/21/17 01:05 07/21/17 01:05 Lab Results 07/21/17 07/21/17 07/21/17 Range/Units 01:02 01:05 01:05 WBC 10.5 (3.8-10.6) k/uL RBC 3.69 L (4.30-5.90) m/uL Hgb 12.5 L (13.0-17.5) gm/dL Hct 37.3 L (39.0-53.0) % MCV 101.0 H (80.0-100.0) fL MCH 33.7 (25.0-35.0) pg MCHC 33.4 (31.0-37.0) g/dL RDW 16.6 H (11.5-15.5) % Plt Count 114 L (150-450) k/uL Neutrophils % 85 % Lymphocytes % 7 % Monocytes % 4 % Eosinophils % 1 % Basophils % 1 % Neutrophils # 9.0 H (1.3-7.7) k/uL Lymphocytes # 0.8 L (1.0-4.8) k/uL Monocytes # 0.5 (0-1.0) k/uL Eosinophils # 0.1 (0-0.7) k/uL Basophils # 0.1 (0-0.2) k/uL Hypochromasia Slight Anisocytosis Slight Macrocytosis Slight Sodium 140 (137-145) mmol/L Potassium 5.1 (3.5-5.1) mmol/L Chloride 102 (98-107) mmol/L Carbon Dioxide 14 L (22-30) mmol/L Anion Gap 24 mmol/L BUN 79 H (9-20) mg/dL Creatinine 15.10 H* (0.66-1.25) mg/dL Est GFR (MDRD) Af Amer 4 (>60 ml/min/1.73 sqM) Est GFR (MDRD) Non-Af 3 (>60 ml/min/1.73 sqM) Glucose 129 H (74-99) mg/dL POC Glucose (mg/dL) 148 H (75-99) mg/dL POC Glu Medicaid Specialist ID Tori Hanks Plasma Lactic Acid Tenzin (0.7-2.0) mmol/L Calcium 8.3 L (8.4-10.2) mg/dL Total Bilirubin 0.9 (0.2-1.3) mg/dL AST 20 (17-59) U/L ALT 24 (21-72) U/L Alkaline Phosphatase 89 (38-126) U/L Total Protein 6.1 L (6.3-8.2) g/dL Albumin 3.9 (3.5-5.0) g/dL Serum Alcohol <10 mg/dL 07/21/17 Range/Units 01:05 WBC (3.8-10.6) k/uL RBC (4.30-5.90) m/uL Hgb (13.0-17.5) gm/dL Hct (39.0-53.0) % MCV (80.0-100.0) fL MCH (25.0-35.0) pg MCHC (31.0-37.0) g/dL RDW (11.5-15.5) % Plt Count (150-450) k/uL Neutrophils % % Lymphocytes % % Monocytes % % Eosinophils % % Basophils % % Neutrophils # (1.3-7.7) k/uL Lymphocytes # (1.0-4.8) k/uL Monocytes # (0-1.0) k/uL Eosinophils # (0-0.7) k/uL Basophils # (0-0.2) k/uL Hypochromasia Anisocytosis Macrocytosis Sodium (137-145) mmol/L Potassium (3.5-5.1) mmol/L Chloride (98-107) mmol/L Carbon Dioxide (22-30) mmol/L Anion Gap mmol/L BUN (9-20) mg/dL Creatinine (0.66-1.25) mg/dL Est GFR (MDRD) Af Amer (>60 ml/min/1.73 sqM) Est GFR (MDRD) Non-Af (>60 ml/min/1.73 sqM) Glucose (74-99) mg/dL POC Glucose (mg/dL) (75-99) mg/dL POC Glu Medicaid Specialist ID Plasma Lactic Acid Tenzin 6.0 H* (0.7-2.0) mmol/L Calcium (8.4-10.2) mg/dL Total Bilirubin (0.2-1.3) mg/dL AST (17-59) U/L ALT (21-72) U/L Alkaline Phosphatase (38-126) U/L Total Protein (6.3-8.2) g/dL Albumin (3.5-5.0) g/dL Serum Alcohol mg/dL Critical Care Time Critical Care Time: Yes Total Critical Care Time: 95 Disposition Clinical Impression: Generalized seizure, Status epilepticus, CVA (cerebral vascular accident) Disposition: ADMITTED IP TO THIS [facility] Condition: Serious Referrals: Jaylen Holguin MD [Primary Care Provider] - 1-2 days Decision to Admit Reason: Admit from EC Decision Date: 07/21/17 Decision Time: 02:20
[2017-07-21] MEDS: LORazepam 2 MG/ML SYRINGE IV PRN ×2 (05:07→09:47)
[2017-07-21] MEDS ORDERED: cloNIDine 0.1 MG/24HR PATCH 1 PATCH PATCH TRANSDERM SCH (05:15)
[2017-07-21] MEDS ORDERED: SUCCINYLCHOLINE CHLORIDE VIAL 200 MG/10 ML VIAL IV STA (06:25)
[2017-07-21] MEDS ORDERED: MIDAZOLAM HCL 100 MG in SODIUM CHLORIDE 0.9% 80 ML IV SCH (07:00)
[2017-07-21] MEDS: PROPOFOL 1,000 MG/100 ML VIAL IV STA ×2 (07:04→13:27)
[2017-07-21] MEDS ORDERED: PROPOFOL 10 MG/ML 20 ML VIAL IV STA (07:05)
--- NOTE | 2017-07-21 07:25 | XR ---
EXAMINATION TYPE: XR chest 1V portable DATE OF EXAM: 07/21/2017 CLINICAL HISTORY: Difficulty breathing had to be intubated TECHNIQUE: Single AP portable semiupright view of the chest is obtained. COMPARISON: Chest x-ray from earlier today. Older chest x-ray July 06, 2017. FINDINGS: There is new endotracheal tube with tip just below inferior clavicular margin approximatel y 6 to 7 cm above alyssa. There is new orogastric tube projecting into stomach. There is persistent bilateral alveolar and interstitial opacities stable or slightly more prominent. No large pleural effusion or pneumothorax is seen bilaterally. Cardiac silhouette size is stable and within normal limits. Osseous structures are intact. IMPRESSION: 1. New endotracheal and orogastric tubes are satisfactory in position. 2. Persistent even suspected more prominent diffuse bilateral alveolar and interstitial edema and/or infiltrates.
[2017-07-21 09:19] LABS: Glucose,Whole Blood 111 mg/dL (75-99)
[2017-07-21 09:29] LABS: ABG HCO3 20 mmol/L (21-25); ABG PCO2 37 mmHg (35-45); ABG PH 7.35 (7.35-7.45); ABG PO2 174 mmHg (83-108); ABG TCO2 21 mmol/L (19-24)
[2017-07-21] MEDS: levETIRAcetam IV 750 MG in SODIUM CHLORIDE 0.9% 100 ML IVPB SCH ×2 (10:18→21:59)
[2017-07-21] MEDS: LABETALOL 100 MG in SODIUM CHLORIDE 0.9% 80 ML IV SCH ×3 (10:35→15:04)
--- NOTE | 2017-07-21 10:59 | P.NPCON ---
History of Present Illness - Reason for Consult Consult date: 07/21/17 end stage renal disease - Chief Complaint Seizures, noncompliance with dialysis - History of Present Illness This is a 47-year-old patient known to us with ESRD on dialysis Saturday at the [facility] unit. He has a history of noncompliance. Area she came in because of seizure, was drowsy but able to answer questions. He was given Keppra and Ativan and in spite of this in the ER he had 2 more seizures. He is known with seizure disorder. He has history of noncompliance. He Mrs. dialysis frequently and is also known to cut the treatment time. He was recently admitted here with symptoms suggestive of TIA, as well as possible spinal stenosis in his neck that might have caused some of these symptoms. He has chronic neck pain and was under the care of chiropractic at the time. He was seen by neurologist, discharged. Since then he has missed 2 dialysis before he came in here therefore his last dialysis was on Saturday, Mrs. and Saturday dialysis and came in today 07/21/2017 Currently is intubated. Chest x-ray shows congestive heart failure although he makes lots of urine and therefore as minimal ultrafiltration usually during dialysis. He is known with ESRD on dialysis as mentioned, etiology is multiple kidney stones with family history of the same he has never been transplanted because of problems with noncompliance. He was recommended to have bilateral nephrectomy but he refused. He is known with seizure disorder for approximately last 1 year his recent seizure episode prior to this seizure episode was in April 2017 when he was admitted to the [facility]. It should be noted that he has moved from different dialysis unit because of difficulty with the staff. Past Medical History Past Medical History: Hypertension, Musculoskeletal Disorder (He has had neck pain and low back pain over the past 8 years as well. He has been through significant conservative treatment as outpatient), Renal Disease (He has required hemodialysis for the past 8 years), Seizure Disorder Additional Past Medical History / Comment(s): kidney failure hemodialysis History of Any Multi-Drug Resistant Organisms: None Reported Additional Past Surgical History / Comment(s): fistula for dialysis lithotripsy kidney stents Past Psychological History: No Psychological Hx Reported Smoking Status: Current every day smoker Past Alcohol Use History: None Reported Past Drug Use History: None Reported - Past Family History Father Family Medical History: Cancer, CVA/TIA Mother Family Medical History: CVA/TIA Medications and Allergies Home Medications Medication Instructions Recorded Confirmed Type Calcium Acetate [PhosLo] 667 mg PO TID-W/MEALS 11/22/16 07/21/17 History Sevelamer [Renvela] 800 mg PO TID-W/MEALS 11/22/16 07/21/17 History Sodium Bicarbonate Tab 650 mg PO BID 11/22/16 07/21/17 History Lisinopril [Zestril] 20 mg PO BID 06/14/17 07/21/17 History amLODIPine [Norvasc] 5 mg PO DAILY 06/14/17 07/21/17 History Acetaminophen-Codeine 300-30mg 1 tab PO Q8H PRN 07/06/17 07/21/17 History [Tylenol w/codeine #3] levETIRAcetam [Keppra] 500 mg PO Q12HR 07/06/17 07/21/17 History Acetaminophen Tab [Tylenol] 650 mg PO Q4HR PRN tab 07/07/17 07/21/17 Rx Nicotine 14Mg/24Hr Patch [Habitrol] 1 patch TRANSDERM DAILY patch 07/07/1702/01 Rx Baclofen 10 mg PO BID 07/21/17 07/21/17 History Ergocalciferol (Vitamin D2) 50,000 unit PO Q30D 07/21/17 07/21/17 History [Vitamin D2] cloNIDine HCL [Catapres] 0.05 mg PO BID 07/21/17 07/21/17 History Allergies Allergy/AdvReac Type Severity Reaction Status Date / Time No Known Allergies Allergy Verified 07/06/17 11:24 Physical Exam Vitals: Vital Signs Temp Pulse Resp BP Pulse Ox 07/21/17 10:43 98.3 F 84 17 171/99 99 07/21/17 10:28 98.3 F 85 17 171/98 99 07/21/17 09:55 94 22 197/94 99 07/21/17 09:45 95 24 224/124 99 07/21/17 09:30 99.0 F 84 22 179/104 99 07/21/17 09:00 99.0 F 88 22 180/105 99 07/21/17 08:30 98.5 F 88 22 174/100 99 07/21/17 07:15 98.0 F 94 24 156/72 100 07/21/17 07:10 98 32 H 166/103 98 07/21/17 07:00 136 H 32 H 225/130 99 07/21/17 06:50 130 H 32 H 233/115 96 07/21/17 06:40 140 H 36 H 247/127 94 L 07/21/17 06:11 90 28 H 220/115 95 07/21/17 05:48 88 28 H 202/110 95 07/21/17 05:27 88 28 H 211/110 95 07/21/17 05:00 90 28 H 213/114 94 L 07/21/17 04:45 89 28 H 212/108 96 07/21/17 04:05 93 28 H 199/115 99 07/21/17 03:55 86 28 H 203/113 99 07/21/17 03:45 90 28 H 204/114 99 07/21/17 03:35 88 28 H 202/109 99 07/21/17 03:25 90 28 H 199/107 99 07/21/17 03:00 92 28 H 205/119 98 07/21/17 02:50 94 28 H 200/112 98 07/21/17 02:40 97 28 H 207/124 97 07/21/17 02:25 101 H 28 H 193/106 96 07/21/17 02:20 100 28 H 194/102 97 07/21/17 02:15 103 H 28 H 203/119 94 L 07/21/17 02:10 101 H 30 H 189/113 94 L 07/21/17 02:05 102 H 30 H 204/112 92 L 07/21/17 01:59 128 H 30 H 223/124 88 L 07/21/17 01:51 139 H 30 H 226/133 97 07/21/17 01:42 140 H 32 H 248/118 100 07/21/17 01:32 146 H 32 H 252/148 97 07/21/17 01:13 97.9 F 65 18 228/130 97 Intake and Output 07/20/17 07/21/17 07/21/17 22:59 06:59 14:59 Intake Total 5.75 5.78 Output Total 57 Balance 5.75 -51.22 Intake: Intake, IV Titration 5.75 5.78 Amount Nitroglycerin-D5w Pmx 50 5.75 mg In Dextrose/Water 1 250ml.bag @ 5 MCG/MIN 1.5 mls/hr IV .Q24H ONE Rx#: [id number] Propofol 1,000 mg In 100 5.78 ml @ Titrate IV .Q0M STA Rx#:[id number] Output: Urine 37 Stool 20 Other: Weight 68.039 kg Currently on exam his obtunded sedated with propofol and Ativan. He is on a vent with 80% FiO2, he had a PaO2 of 178 on 100% FiO2. HEENT exam no JVP neck is supple no facial asymmetry pupils are equal. Lungs are clear to auscultation fair air entry bilaterally Heart sounds are unremarkable for any murmur rub gallop Abdomen soft nontender distended normal organomegaly ascites masses felt Extremity exam was no edema Neurologically as mentioned obtunded because of sedation. Results - Lab Results Most recent lab results ABG pH 7.35 (7.35-7.45) 07/21/17 09:06 ABG pCO2 37 mmHg (35-45) 07/21/17 09:06 ABG pO2 174 mmHg (83-108) H 07/21/17 09:06 ABG HCO3 20 mmol/L (21-25) L 07/21/17 09:06 ABG O2 Saturation 100.0 % (94-97) H 07/21/17 09:06 Calcium 8.3 mg/dL (8.4-10.2) L 07/21/17 01:05 07/21/17 01:05 07/21/17 01:05 Assessment and Plan Plan: Impression. 1. ESRD secondary to kidney stones with strong family history. On dialysis for 8 years with a right forearm fistula. Missed dialysis twice and came in with seizure and had 2 further seizures in the emergency room. Currently vent dependent and sedated. 2. Admitted with possible TIA recently dated 07/06/2017 and discharged 2016. At the time workup was negative. Question of spinal stenosis in his neck. 3. Chronic neck pain, MRI dated 07/10/2017 showed multilevel degenerative disc disease spinal stenosis with possible myelomalacia also a tortuous vertebral artery and the left is seen in close proximity to the left C2 nerve root 4. Lactic acidosis secondary to seizures expected to resolve. Bicarb 14 and anion gap 24 lactic acidosis was 6. 5. Hemoglobin maintain a target, 12.5. Recommendation. We'll dialyze him today 4 hours we will take off 3 L. Will plan to dialyze him tomorrow again to ensure there is no uremia adding to this seizure risk. Redo labs after dialysis to ensure lactic acidosis has resolved. There may be an element of uremia this adding to the lowering of seizure threshold, Keppra levels are pending Thank you for this consultation
--- NOTE | 2017-07-21 11:10 | P.HPIM ---
History of Present Illness H&P Date: 07/21/17 Chief Complaint: Seizure This is a 47-year-old male patient of Dr. Jaylen juares with past medical history of end-stage renal disease on hemodialysis 3 times weekly, hypertension, seizure disorder. Patient had a recent hospitalization July 06 for TIA and was seen in consultation by Dr. Viveros. There was concern for cervical spondylosis and recommended MRI of the cervical spine and orthopedic consult. Carotid duplex showed no stenosis. Echocardiogram revealed EF of 55- 60%, no pulmonary hypertension, moderate concentric left hypertrophy, trace mitral regurgitation, trace tricuspid regurgitation. Patient was discharged home on new medication of clonidine. Patient now presents to [facility] emergency center by EMS with seizure activity. Upon arrival, patient was post ictal. Initial blood pressure was 250/148. Patient received 2 doses of hydralazine 20 mg IV push and clonidine patch followed by nitroglycerin drip. Blood pressure was improved but remain elevated and nitroglycerin drip was discontinued and patient started on labetalol drip. CAT scan of the brain showed a new hypoattenuation in the left thalamus with mild expansion. Differential include evolving infarction, toxic metabolic process, infectious process. Punctate dermal hyperdensity in the right premaxillary region. Correlate for foreign body. Dehiscence of the left lamina papyracea. Chest x-ray showed bibasilar and bilateral hilar infiltrates. While in the emergency room patient had a second seizure, generalized tonic-clonic seizure and given Ativan as well as Keppra 1 g IV. Patient did miss 2 hemodialysis treatments and this was initiated in the emergency center. He was given a rectal aspirin and consult placed with Dr. Perez. Patient did have a third seizure around 6:30 AM and he was intubated at that time. Patient is seen in the emergency room, waiting for her ICU bed. Dr. Doss, Dr. Perez, Dr. Rod are on consult. Outpatient cervical spine MRI ordered by Dr. Benjamin showed multilevel degenerative disc disease, spinal stenosis with digestion of myelomalacia. Multilevel foraminal encroachment. Tortuous vertebral artery on the left is in close proximity to the left C2 nerve root Review of Systems ROS unobtainable: due to endotracheal tube, due to mental status Past Medical History Past Medical History: Hypertension, Musculoskeletal Disorder (He has had neck pain and low back pain over the past 8 years as well. He has been through significant conservative treatment as outpatient), Renal Disease (He has required hemodialysis for the past 8 years), Seizure Disorder Additional Past Medical History / Comment(s): End-stage renal disease on hemodialysis History of Any Multi-Drug Resistant Organisms: None Reported Additional Past Surgical History / Comment(s): fistula for dialysis lithotripsy kidney stents Past Psychological History: No Psychological Hx Reported Smoking Status: Current every day smoker Past Alcohol Use History: None Reported Past Drug Use History: None Reported - Past Family History Father Family Medical History: Cancer, CVA/TIA Mother Family Medical History: CVA/TIA Medications and Allergies Home Medications Medication Instructions Recorded Confirmed Type Calcium Acetate [PhosLo] 667 mg PO TID-W/MEALS 11/22/16 07/21/17 History Sevelamer [Renvela] 800 mg PO TID-W/MEALS 11/22/16 07/21/17 History Sodium Bicarbonate Tab 650 mg PO BID 11/22/16 07/21/17 History Lisinopril [Zestril] 20 mg PO BID 06/14/17 07/21/17 History amLODIPine [Norvasc] 5 mg PO DAILY 06/14/17 07/21/17 History Acetaminophen-Codeine 300-30mg 1 tab PO Q8H PRN 07/06/17 07/21/17 History [Tylenol w/codeine #3] levETIRAcetam [Keppra] 500 mg PO Q12HR 07/06/17 07/21/17 History Acetaminophen Tab [Tylenol] 650 mg PO Q4HR PRN tab 07/07/17 07/21/17 Rx Nicotine 14Mg/24Hr Patch [Habitrol] 1 patch TRANSDERM DAILY patch 07/07/1702/01 Rx Baclofen 10 mg PO BID 07/21/17 07/21/17 History Ergocalciferol (Vitamin D2) 50,000 unit PO Q30D 07/21/17 07/21/17 History [Vitamin D2] cloNIDine HCL [Catapres] 0.05 mg PO BID 07/21/17 07/21/17 History Allergies Allergy/AdvReac Type Severity Reaction Status Date / Time No Known Allergies Allergy Verified 07/06/17 11:24 Physical Exam Vitals: Vital Signs Temp Pulse Resp BP Pulse Ox 07/21/17 09:30 99.0 F 84 22 179/104 99 07/21/17 09:00 99.0 F 88 22 180/105 99 07/21/17 08:30 98.5 F 88 22 174/100 99 07/21/17 07:15 98.0 F 94 24 156/72 100 07/21/17 07:10 98 32 H 166/103 98 07/21/17 07:00 136 H 32 H 225/130 99 07/21/17 06:50 130 H 32 H 233/115 96 07/21/17 06:40 140 H 36 H 247/127 94 L 07/21/17 06:11 90 28 H 220/115 95 07/21/17 05:48 88 28 H 202/110 95 07/21/17 05:27 88 28 H 211/110 95 07/21/17 05:00 90 28 H 213/114 94 L 07/21/17 04:45 89 28 H 212/108 96 07/21/17 04:05 93 28 H 199/115 99 07/21/17 03:55 86 28 H 203/113 99 07/21/17 03:45 90 28 H 204/114 99 07/21/17 03:35 88 28 H 202/109 99 07/21/17 03:25 90 28 H 199/107 99 07/21/17 03:00 92 28 H 205/119 98 07/21/17 02:50 94 28 H 200/112 98 07/21/17 02:40 97 28 H 207/124 97 07/21/17 02:25 101 H 28 H 193/106 96 07/21/17 02:20 100 28 H 194/102 97 07/21/17 02:15 103 H 28 H 203/119 94 L 07/21/17 02:10 101 H 30 H 189/113 94 L 07/21/17 02:05 102 H 30 H 204/112 92 L 07/21/17 01:59 128 H 30 H 223/124 88 L 07/21/17 01:51 139 H 30 H 226/133 97 07/21/17 01:42 140 H 32 H 248/118 100 07/21/17 01:32 146 H 32 H 252/148 97 07/21/17 01:13 97.9 F 65 18 228/130 97 Intake and Output 07/20/17 07/21/17 07/21/17 22:59 06:59 14:59 Intake Total 5.75 5.78 Output Total 45 Balance 5.75 -39.22 Intake: Intake, IV Titration 5.75 5.78 Amount Nitroglycerin-D5w Pmx 50 5.75 mg In Dextrose/Water 1 250ml.bag @ 5 MCG/MIN 1.5 mls/hr IV .Q24H ONE Rx#: [id number] Propofol 1,000 mg In 100 5.78 ml @ Titrate IV .Q0M STA Rx#:[id number] Output: Urine 25 Stool 20 Other: Weight 68.039 kg - Constitutional General appearance: average body habitus, no acute distress - EENT Eyes: PERRLA, no scleral icterus, normal appearance ENT: no thrush - Neck Neck: no lymphadenopathy, no thyromegaly Carotids: bilateral: bruit absent - Respiratory Respiratory: bilateral: CTA, diminished - Cardiovascular Heart sounds: normal: S1, S2 Abnormal Heart Sounds: systolic murmur - Gastrointestinal General gastrointestinal: no absent bowel sounds, no distended, no hepatomegaly , no hyperactive bowel sounds, normal bowel sounds, no organomegaly, no rigid, no scaphoid, soft, no splenomegaly, no tenderness, no umbilical hernia, no ventral hernia - Integumentary Integumentary: no cellulitis, no cyanotic, no jaundiced, normal - Musculoskeletal Musculoskeletal: no gait normal - Psychiatric Psychiatric: no A&O x's 3, no appropriate affect, no intact judgment & insight Results CBC & Chem 7: 07/22/17 04:36 07/22/17 04:36 Labs: Abnormal Lab Results - Last 24 Hours (Table) 07/21/17 07/21/17 07/21/17 Range/Units 01:02 01:05 01:05 RBC 3.69 L (4.30-5.90) m/uL Hgb 12.5 L (13.0-17.5) gm/dL Hct 37.3 L (39.0-53.0) % MCV 101.0 H (80.0-100.0) fL RDW 16.6 H (11.5-15.5) % Plt Count 114 L (150-450) k/uL Neutrophils # 9.0 H (1.3-7.7) k/uL Lymphocytes # 0.8 L (1.0-4.8) k/uL ABG pO2 (83-108) mmHg ABG HCO3 (21-25) mmol/L ABG O2 Saturation (94-97) % Carbon Dioxide 14 L (22-30) mmol/L BUN 79 H (9-20) mg/dL Creatinine 15.10 H* (0.66-1.25) mg/dL Glucose 129 H (74-99) mg/dL POC Glucose (mg/dL) 148 H (75-99) mg/dL Plasma Lactic Acid Tenzin (0.7-2.0) mmol/L Calcium 8.3 L (8.4-10.2) mg/dL Total Protein 6.1 L (6.3-8.2) g/dL Urine Protein (Negative) Urine Glucose (UA) (Negative) Urine Blood (Negative) 07/21/17 07/21/17 07/21/17 Range/Units 01:05 04:30 09:06 RBC (4.30-5.90) m/uL Hgb (13.0-17.5) gm/dL Hct (39.0-53.0) % MCV (80.0-100.0) fL RDW (11.5-15.5) % Plt Count (150-450) k/uL Neutrophils # (1.3-7.7) k/uL Lymphocytes # (1.0-4.8) k/uL ABG pO2 174 H (83-108) mmHg ABG HCO3 20 L (21-25) mmol/L ABG O2 Saturation 100.0 H (94-97) % Carbon Dioxide (22-30) mmol/L BUN (9-20) mg/dL Creatinine (0.66-1.25) mg/dL Glucose (74-99) mg/dL POC Glucose (mg/dL) (75-99) mg/dL Plasma Lactic Acid Tenzin 6.0 H* (0.7-2.0) mmol/L Calcium (8.4-10.2) mg/dL Total Protein (6.3-8.2) g/dL Urine Protein 3+ H (Negative) Urine Glucose (UA) 2+ H (Negative) Urine Blood Small H (Negative) 07/21/17 Range/Units 09:15 RBC (4.30-5.90) m/uL Hgb (13.0-17.5) gm/dL Hct (39.0-53.0) % MCV (80.0-100.0) fL RDW (11.5-15.5) % Plt Count (150-450) k/uL Neutrophils # (1.3-7.7) k/uL Lymphocytes # (1.0-4.8) k/uL ABG pO2 (83-108) mmHg ABG HCO3 (21-25) mmol/L ABG O2 Saturation (94-97) % Carbon Dioxide (22-30) mmol/L BUN (9-20) mg/dL Creatinine (0.66-1.25) mg/dL Glucose (74-99) mg/dL POC Glucose (mg/dL) 111 H (75-99) mg/dL Plasma Lactic Acid Tenzin (0.7-2.0) mmol/L Calcium (8.4-10.2) mg/dL Total Protein (6.3-8.2) g/dL Urine Protein (Negative) Urine Glucose (UA) (Negative) Urine Blood (Negative) Thrombosis Risk Factor Assmnt - DVT/VTE Prophylaxis DVT/VTE Prophylaxis: Pharmacologic Prophylaxis ordered Assessment and Plan Plan: 1. Evolving left thalamus stroke. Aspirin 300 mg rectally daily, neurology consult, carotid ultrasound and echocardiogram from previous visit. Continue neuro checks. 2. Accelerated hypertension. Patient will be placed on labetalol drip. Patient has received 3 doses of labetalol in the emergency center, clonidine patch and nitroglycerin drip. 3. Acute hypoxic respiratory failure and metabolic encephalopathy secondary to seizure activity and thalamus stroke. Dr. Doss is on consult. Patient is intubated and on mechanical ventilation. 4. Status epilepticus with history of seizures. Patient was given Keppra 1 g IV piggyback 1 and continued on 750 mg every 12 hours. Ativan as needed for active seizures. Neurology consult. Patient was previously on Keppra 500 mg every 12 hours. 5. End-stage renal disease with lactic acidosis on hemodialysis presenting with fluid overload secondary to noncompliance and missing 2 dialysis treatments. Patient is currently undergoing dialysis in the emergency center. Dr. Rod is on consult. 6. Chronic cervical pain. Patient underwent outpatient MRI as noted above. Patient has been on Tylenol No. 3 and baclofen as well as undergoing pain management injections with Dr. Perez. 7. Tobacco use and dependence and recently discharged on nicotine patch. 8. Chronic thrombocytopenia. Monitor. 9. DVT prophylaxis. KP hose and SCDs. 10. GI prophylaxis. Pepcid IV 11. CODE STATUS: Full code. Patient will be admitted to the hospital for a minimum of 3 night stay. Discharge plan: To be determined Impression and plan of care have been directed as dictated by the signing physician. Doretha Brumfield nurse practitioner acting as scribe for signing physician.
[2017-07-21 15:30] LABS: Potassium 3.7 mmol/L (3.5-5.1)
[2017-07-21 15:34] LABS: Glucose,Whole Blood 96 mg/dL (75-99)
--- NOTE | 2017-07-21 15:55 | P.CNPUL ---
History of Present Illness Consult date: 07/21/17 Chief complaint: Seizure, respiratory failure History of present illness: This is a 47-year-old male patient with known history of a incisional disease maintained on hemodialysis 3 times a week Saturday and Saturday. The patient has a long history of noncompliance to hemodialysis. His been dialysis for the past 8 years at least. He is currently receiving his diet to [facility]. He apparently missed the last 2 sessions of dialysis. He also has history of seizure for which he was started on Prednisone point however he has not been taking the medication a regular basis. Apparently, the patient was having generalized seizures at home. The patient was having back-to -back seizures each one lasting around 3 minutes. The EMS found this patient post ictal. Following that the patient was brought in to the burst department and he was unresponsive and he was unable to answer any questions. He is neurologic exam was nonfocal. He was found to be in fluid overload and significant respiratory distress. Based on that the patient was intubated and placed on a mechanical ventilator. He was started on Keppra. Post intubation he was started on Diprivan which is currently running at 20 mics. He was also started the Versed drip at 1 mg an hour. He was started on hemodialysis this morning in the emergency department and the diagnosis got completed around 3 PM this afternoon. A total of 3 L of fluid was ultrafiltrate as. At this point in time, the patient intubated on a mechanical ventilator. He is an assist- control mode at the rate of 18, tidal volume of 600, FiO2 was around down to 60 % and he isn't a PEEP of 5. Post intubation blood gases was done on the percent FiO2 showed a pH of 7.35 with a pCO2 of 37 and pO2 of 174. Peak airway pressures around 22. Chest x-ray showed evidence of pulmonate edema and ET tube was high in the trachea which was repositioned. The patient was also noted to have significantly elevated blood pressure. He was started on labetalol drip for blood pressure control. All these treatments were done in the burst department. After completing his hemodialysis, the patient got moved to the intensive care unit. Note that since his arrival to the hospital, no fluid seizure activities of been noted. Patient is currently receiving Keppra 750 mg IV every 12 hours. Labetalol drip is still running for blood pressure control. He is quite sedated. The CAT scan of the brain showed new hypoattenuation in the left thalamus and mild expansion and this raises the suspicion for a infarction. Other possibilities would also consider there is toxic metabolic process/infectious process. His previous echocardiogram from June 2017 showed a moderate concentric left ventricular hypertrophy with an ejection fraction of 55-60% without any significant valvular abnormalities. Noted the patient was in the hospital in June 2017 for left-sided numbness and weakness. MRI of the spine at was done at that time showed multilevel degenerative disc disease/spinal stenosis with some suggestion of myelomalacia. Review of Systems ROS unobtainable: due to endotracheal tube Past Medical History Past Medical History: Hypertension, Musculoskeletal Disorder (He has had neck pain and low back pain over the past 8 years as well. He has been through significant conservative treatment as outpatient), Renal Disease (He has required hemodialysis for the past 8 years), Seizure Disorder Additional Past Medical History / Comment(s): End-stage renal disease on hemodialysis , seizure disorder, hypertension, chronic cervical pain, smoker History of Any Multi-Drug Resistant Organisms: None Reported Additional Past Surgical History / Comment(s): AV fistula for dialysis, lithotripsy, irritable stents for kidney stones Past Psychological History: No Psychological Hx Reported Smoking Status: Current every day smoker Past Alcohol Use History: None Reported Past Drug Use History: None Reported - Past Family History Father Family Medical History: Cancer, CVA/TIA Mother Family Medical History: CVA/TIA Medications and Allergies Home Medications Medication Instructions Recorded Confirmed Type Calcium Acetate [PhosLo] 667 mg PO TID-W/MEALS 11/22/16 07/21/17 History Sevelamer [Renvela] 800 mg PO TID-W/MEALS 11/22/16 07/21/17 History Sodium Bicarbonate Tab 650 mg PO BID 11/22/16 07/21/17 History Lisinopril [Zestril] 20 mg PO BID 06/14/17 07/21/17 History amLODIPine [Norvasc] 5 mg PO DAILY 06/14/17 07/21/17 History Acetaminophen-Codeine 300-30mg 1 tab PO Q8H PRN 07/06/17 07/21/17 History [Tylenol w/codeine #3] levETIRAcetam [Keppra] 500 mg PO Q12HR 07/06/17 07/21/17 History Acetaminophen Tab [Tylenol] 650 mg PO Q4HR PRN tab 07/07/17 07/21/17 Rx Nicotine 14Mg/24Hr Patch [Habitrol] 1 patch TRANSDERM DAILY patch 07/07/1702/01 Rx Baclofen 10 mg PO BID 07/21/17 07/21/17 History Ergocalciferol (Vitamin D2) 50,000 unit PO Q30D 07/21/17 07/21/17 History [Vitamin D2] cloNIDine HCL [Catapres] 0.05 mg PO BID 07/21/17 07/21/17 History Allergies Allergy/AdvReac Type Severity Reaction Status Date / Time No Known Allergies Allergy Verified 07/06/17 11:24 Physical Exam Vitals: Vital Signs Temp Pulse Resp BP Pulse Ox 07/21/17 15:06 98.8 F 83 17 153/96 100 07/21/17 14:52 98.5 F 83 17 142/96 100 07/21/17 13:55 98.5 F 80 17 189/111 100 07/21/17 13:17 98.4 F 77 20 192/112 100 07/21/17 12:55 79 18 211/115 100 07/21/17 11:53 78 17 182/107 100 07/21/17 11:22 99.6 F 79 17 166/99 98 07/21/17 10:43 98.3 F 84 17 171/99 99 07/21/17 10:28 98.3 F 85 17 171/98 99 07/21/17 09:55 94 22 197/94 99 07/21/17 09:45 95 24 224/124 99 07/21/17 09:30 99.0 F 84 22 179/104 99 07/21/17 09:00 99.0 F 88 22 180/105 99 07/21/17 08:30 98.5 F 88 22 174/100 99 07/21/17 07:15 98.0 F 94 24 156/72 100 07/21/17 07:10 98 32 H 166/103 98 07/21/17 07:00 136 H 32 H 225/130 99 07/21/17 06:50 130 H 32 H 233/115 96 07/21/17 06:40 140 H 36 H 247/127 94 L 07/21/17 06:11 90 28 H 220/115 95 07/21/17 05:48 88 28 H 202/110 95 07/21/17 05:27 88 28 H 211/110 95 07/21/17 05:00 90 28 H 213/114 94 L 07/21/17 04:45 89 28 H 212/108 96 07/21/17 04:05 93 28 H 199/115 99 07/21/17 03:55 86 28 H 203/113 99 07/21/17 03:45 90 28 H 204/114 99 07/21/17 03:35 88 28 H 202/109 99 07/21/17 03:25 90 28 H 199/107 99 07/21/17 03:00 92 28 H 205/119 98 07/21/17 02:50 94 28 H 200/112 98 07/21/17 02:40 97 28 H 207/124 97 07/21/17 02:25 101 H 28 H 193/106 96 07/21/17 02:20 100 28 H 194/102 97 07/21/17 02:15 103 H 28 H 203/119 94 L 07/21/17 02:10 101 H 30 H 189/113 94 L 07/21/17 02:05 102 H 30 H 204/112 92 L 07/21/17 01:59 128 H 30 H 223/124 88 L 07/21/17 01:51 139 H 30 H 226/133 97 07/21/17 01:42 140 H 32 H 248/118 100 07/21/17 01:32 146 H 32 H 252/148 97 07/21/17 01:13 97.9 F 65 18 228/130 97 Intake and Output 07/21/17 07/21/17 07/21/17 06:59 14:59 22:59 Intake Total 5.75 163.75 98 Output Total 474 Balance 5.75 -310.25 98 Intake: Intake, IV Titration 5.75 163.75 98 Amount Labetalol 100 mg In 91.5 98 Sodium Chloride 0.9% 80 ml @ 0.5 MG/MIN 30 mls/hr IV .Q3H20M [facility] Rx#: [id number] Nitroglycerin-D5w Pmx 50 5.75 mg In Dextrose/Water 1 250ml.bag @ 5 MCG/MIN 1.5 mls/hr IV .Q24H ONE Rx#: [id number] Propofol 1,000 mg In 100 72.25 ml @ Titrate IV .Q0M STA Rx#:[id number] Output: Urine 54 Stool 20 Oral Regurgitation 400 Other: Weight 68.039 kg Patient is intubated on a mechanical ventilator.Head exam was generally normal. There was no scleral icterus or corneal arcus. Mucous membranes were moist. Neck is supple and there is no JVDs no goiter or neck masses. The patient has orogastric and tracheal tube are both in place.Neck was supple and without jugular venous distension, thyromegaly, or carotid bruits. Carotids were easily palpable bilaterally. There was no adenopathy. Lung sounds are diminished bilaterally especially in lung bases. No wheezes or rhonchi or any crackles.Cardiac exam revealed the PMI to be normally situated and sized. The rhythm was regular and no extrasystoles were noted during several minutes of auscultation. The first and second heart sounds were normal and physiologic splitting of the second heart sound was noted. There were no murmurs, rubs, clicks, or gallops.Abdominal exam revealed normal bowel sounds. The abdomen was soft, non-tender, and without masses, organomegaly, or appreciable enlargement of the abdominal aorta.Examination of the extremities revealed easily palpable radial, femoral and pedal pulses. There was no cyanosis, clubbing or edema. Neurologically the patient is sedated. Results - Laboratory Findings CBC and BMP: 07/21/17 01:05 07/21/17 01:05 ABG ABG pH 7.35 (7.35-7.45) 07/21/17 09:06 ABG pCO2 37 mmHg (35-45) 07/21/17 09:06 ABG pO2 174 mmHg (83-108) H 07/21/17 09:06 ABG O2 Saturation 100.0 % (94-97) H 07/21/17 09:06 Abnormal lab findings: Abnormal Labs 07/21/17 07/21/17 07/21/17 01:02 01:05 01:05 RBC 3.69 L Hgb 12.5 L Hct 37.3 L MCV 101.0 H RDW 16.6 H Plt Count 114 L Neutrophils # 9.0 H Lymphocytes # 0.8 L ABG pO2 ABG HCO3 ABG O2 Saturation Carbon Dioxide 14 L BUN 79 H Creatinine 15.10 H* Glucose 129 H POC Glucose (mg/dL) 148 H Plasma Lactic Acid Tenzin Calcium 8.3 L Total Protein 6.1 L Urine Protein Urine Glucose (UA) Urine Blood 07/21/17 07/21/17 07/21/17 01:05 04:30 09:06 RBC Hgb Hct MCV RDW Plt Count Neutrophils # Lymphocytes # ABG pO2 174 H ABG HCO3 20 L ABG O2 Saturation 100.0 H Carbon Dioxide BUN Creatinine Glucose POC Glucose (mg/dL) Plasma Lactic Acid Tenzin 6.0 H* Calcium Total Protein Urine Protein 3+ H Urine Glucose (UA) 2+ H Urine Blood Small H 07/21/17 09:15 RBC Hgb Hct MCV RDW Plt Count Neutrophils # Lymphocytes # ABG pO2 ABG HCO3 ABG O2 Saturation Carbon Dioxide BUN Creatinine Glucose POC Glucose (mg/dL) 111 H Plasma Lactic Acid Tenzin Calcium Total Protein Urine Protein Urine Glucose (UA) Urine Blood - Diagnostic Findings Chest x-ray: image reviewed Assessment and Plan Plan: Assessment 1 seizure disorder. The patient had multiple seizures prior to him coming to the hospital/possible status epilepticus. Currently on Keppra. He is totally sedated with Diprivan at 45 g. No seizure-like activities noticed here in the intensive care unit. Neurologically patient has been placed and EGD is to be followed. 2 acute hypoxic respiratory failure secondary to fluid overload. Chest x-ray is consistent with volume overload and pulmonary edema 3 acute thalamic stroke is suspected based on the Computed tomography scan of the brain, these clinical correlation 4 End-stage renal disease on hemodialysis 3 times a week, with poor compliance 5 hypertension, poorly controlled and currently on labetalol drip for blood pressure control 6 chronic back pain with multilevel degenerative disc disease and stenosis 7 acute lactic acidosis, recovered 8 chronic nephrolithiasis leading into end-stage renal disease Plan Keep the patient sedated for now. We'll keep the patient on Diprivan. Will start the patient on Keppra 750 mg IV every 12 hours. EEG will be done to rule out ongoing seizure activity. Neurology consultation was also obtained. CAT scan of the brain was noted and it was a suspicious finding of a left thalamus infarct. Based on that'll keep his systolic blood pressure above 160. Currently the patient is an labetalol drip which will be discontinued. The patient will placed on clevidipine drip. We'll start also on lisinopril 10 mg by mouth twice a day and will start patient on clonidine 0.1 mg by mouth 3 times a day. We'll titrate the clevidipine drip based on the blood pressure control to maintain a systolic blood pressure between 140 and 160. Also will proceed with another session of dialysis tomorrow with ultrafiltration. Repeat chest x-ray in the morning. Vent changes were done. Repeat ABGs and obtain a follow-up chest x-ray in the morning. Heparin subcu for DVT prophylaxis. IV Protonix for GI prophylaxis. We'll continue to follow make further recommendations based on his progress.
[2017-07-21] MEDS: CLEVIDIPINE BUTYRATE 25 MG in EMPTY BAG 1 BAG IV SCH (16:17)
[2017-07-21] MEDS: HEPARIN SODIUM,PORCINE 5,000 UNIT/ML 1 ML VIAL SQ SCH ×2 (17:37→23:50)
[2017-07-21] MEDS: cloNIDine HCL 0.1 MG TAB PO SCH ×2 (17:37→22:00)
[2017-07-21] MEDS: PROPOFOL 1,000 MG/100 ML VIAL IV SCH ×2 (18:20→20:09)
[2017-07-21] MEDS: ACETAMINOPHEN TAB 325 MG TAB PO PRN (20:08)
[2017-07-21] MEDS: BACLOFEN 10 MG TAB PO SCH (20:10)
[2017-07-21] MEDS: SODIUM BICARBONATE TAB 650 MG TAB PO SCH (20:10)
[2017-07-21] MEDS: LISINOPRIL 20 MG TAB PO SCH (20:10)
[2017-07-21] MEDS: CHLORHEXIDINE GLUCONATE 15 ML CUP MUCOUS MEM SCH (20:10)
--- NOTE | 2017-07-21 23:47 | P.CNNES ---
History of Present Illness Consult date: 07/21/17 Requesting physician: Reilly De La Paz Reason for Consult: Status Epilepticus Chief complaint: Status Epilepticus, Seizure History of Present Illness: Neurology is being requested to consult on a 47-year-old male with past medical history of end-stage renal disease on hemodialysis 3 times weekly, hypertension , seizure disorder. Patient had a recent hospitalization in June 1920 for TIA was seen in consultation with Dr. Viveros. It was concerning for cervical spondylosis and recommended MRI of the cervical spine and orthopedic consult. Carotid duplex showed no stenosis. Echocardiogram revealed EF of 55-60%. No pulmonary hypertension, moderate concentric left hypertrophy, trace mitral regurg, trace tricuspid regurgitation. Patient was discharged home on new medication of clonidine. Patient now presented to the ED by EMS with seizure activity. On arrival patient was postictal. Initial blood pressure was 250/ 148. Patient received 2 doses of hydralazine 20 mg IV push clonidine patch followed by nitroglycerin drip. Blood pressure was improved but remained elevated and nitroglycerin drip was discontinued and patient started on labetalol drip. CT scan of the brain showed new hypoattenuation to the left thalamus with mild expansion. Frontal included evolving infarct, toxic metabolic processes, infectious process. Punctate dermal hyperdensity in the right premaxillary region. Correlate for foreign body. The assistance of the left lamina papyracea. Chest x-ray showed bilateral bibasilar and hilar infiltrates. Patient did have a second seizure while in the ED. Seizure was generalized, tonic-clonic and given Ativan as well as Keppra 1000 mg IV. Patient does have a history of noncompliance with treatment. He was noted to miss to hemodialysis treatments recently. Patient is also known to provider in the clinic and does have a history of noncompliance and failure to follow- through treatment plan. Patient was given rectal aspirin and consult placed. Patient did have a third seizure around 0600 hrs.0630 hrs. this morning and was intubated. Patient was then placed in ICU. Information obtained from the chart as patient is on ventilator and intubated on propofol for sedation. Review of Systems all systems not previously noted are negative Past Medical History Past Medical History: Hypertension, Musculoskeletal Disorder (He has had neck pain and low back pain over the past 8 years as well. He has been through significant conservative treatment as outpatient), Renal Disease (He has required hemodialysis for the past 8 years), Seizure Disorder Additional Past Medical History / Comment(s): End-stage renal disease on hemodialysis , seizure disorder, hypertension, chronic cervical pain, smoker History of Any Multi-Drug Resistant Organisms: None Reported Additional Past Surgical History / Comment(s): AV fistula for dialysis, lithotripsy, irritable stents for kidney stones Past Psychological History: No Psychological Hx Reported Smoking Status: Current every day smoker Past Alcohol Use History: None Reported Past Drug Use History: None Reported - Past Family History Father Family Medical History: Cancer, CVA/TIA Mother Family Medical History: CVA/TIA Medications and Allergies Home Medications Medication Instructions Recorded Confirmed Type Calcium Acetate [PhosLo] 667 mg PO TID-W/MEALS 11/22/16 07/21/17 History Sevelamer [Renvela] 800 mg PO TID-W/MEALS 11/22/16 07/21/17 History Sodium Bicarbonate Tab 650 mg PO BID 11/22/16 07/21/17 History Lisinopril [Zestril] 20 mg PO BID 06/14/17 07/21/17 History amLODIPine [Norvasc] 5 mg PO DAILY 06/14/17 07/21/17 History Acetaminophen-Codeine 300-30mg 1 tab PO Q8H PRN 07/06/17 07/21/17 History [Tylenol w/codeine #3] levETIRAcetam [Keppra] 500 mg PO Q12HR 07/06/17 07/21/17 History Acetaminophen Tab [Tylenol] 650 mg PO Q4HR PRN tab 07/07/17 07/21/17 Rx Nicotine 14Mg/24Hr Patch [Habitrol] 1 patch TRANSDERM DAILY patch 07/07/1702/01 Rx Baclofen 10 mg PO BID 07/21/17 07/21/17 History Ergocalciferol (Vitamin D2) 50,000 unit PO Q30D 07/21/17 07/21/17 History [Vitamin D2] cloNIDine HCL [Catapres] 0.05 mg PO BID 07/21/17 07/21/17 History Allergies Allergy/AdvReac Type Severity Reaction Status Date / Time No Known Allergies Allergy Verified 07/06/17 11:24 Physical Examination - Vital Signs Vital Signs: Vital Signs Temp Pulse Resp BP Pulse Ox 07/21/17 22:00 100.3 F H 79 14 129/74 100 07/21/17 21:00 79 14 140/77 100 07/21/17 20:00 101.1 F H 80 14 150/88 99 07/21/17 19:00 80 14 163/95 100 07/21/17 18:00 81 14 149/89 100 07/21/17 17:00 83 14 133/79 100 07/21/17 16:00 87 14 138/89 99 07/21/17 15:50 86 14 145/88 99 07/21/17 15:40 99.5 F 85 14 194/111 99 07/21/17 15:06 98.8 F 83 17 153/96 100 07/21/17 14:52 98.5 F 83 17 142/96 100 07/21/17 13:55 98.5 F 80 17 189/111 100 07/21/17 13:17 98.4 F 77 20 192/112 100 07/21/17 12:55 79 18 211/115 100 07/21/17 11:53 78 17 182/107 100 07/21/17 11:22 99.6 F 79 17 166/99 98 07/21/17 10:43 98.3 F 84 17 171/99 99 07/21/17 10:28 98.3 F 85 17 171/98 99 07/21/17 09:55 94 22 197/94 99 07/21/17 09:45 95 24 224/124 99 07/21/17 09:30 99.0 F 84 22 179/104 99 07/21/17 09:00 99.0 F 88 22 180/105 99 07/21/17 08:30 98.5 F 88 22 174/100 99 07/21/17 07:15 98.0 F 94 24 156/72 100 07/21/17 07:10 98 32 H 166/103 98 07/21/17 07:00 136 H 32 H 225/130 99 07/21/17 06:50 130 H 32 H 233/115 96 07/21/17 06:40 140 H 36 H 247/127 94 L 07/21/17 06:11 90 28 H 220/115 95 07/21/17 05:48 88 28 H 202/110 95 07/21/17 05:45 98.8 F 07/21/17 05:27 88 28 H 211/110 95 07/21/17 05:00 90 28 H 213/114 94 L 07/21/17 04:45 89 28 H 212/108 96 07/21/17 04:05 93 28 H 199/115 99 07/21/17 03:55 86 28 H 203/113 99 07/21/17 03:45 90 28 H 204/114 99 07/21/17 03:35 88 28 H 202/109 99 07/21/17 03:25 90 28 H 199/107 99 07/21/17 03:00 92 28 H 205/119 98 07/21/17 02:50 94 28 H 200/112 98 07/21/17 02:40 97 28 H 207/124 97 07/21/17 02:25 101 H 28 H 193/106 96 07/21/17 02:20 100 28 H 194/102 97 07/21/17 02:15 103 H 28 H 203/119 94 L 07/21/17 02:10 101 H 30 H 189/113 94 L 07/21/17 02:05 102 H 30 H 204/112 92 L 07/21/17 01:59 128 H 30 H 223/124 88 L 07/21/17 01:51 139 H 30 H 226/133 97 07/21/17 01:42 140 H 32 H 248/118 100 07/21/17 01:32 146 H 32 H 252/148 97 07/21/17 01:13 97.9 F 65 18 228/130 97 Intake and Output 07/21/17 07/21/17 07/22/17 14:59 22:59 06:59 Intake Total 163.75 376.310 Output Total 474 0 Balance -310.25 376.310 Intake: IV 140 Sodium Chloride 0.9% 1, 140 000 ml @ 20 mls/hr IV . Q24H KRISTY Rx#:[id number] Intake, IV Titration 163.75 186.310 Amount Labetalol 100 mg In 91.5 166 Sodium Chloride 0.9% 80 ml @ 0.5 MG/MIN 30 mls/hr IV .Q3H20M KRISTY Rx#: [id number] Propofol 1,000 mg In 100 20.310 ml @ Titrate IV .Q0M KRISTY Rx#:[id number] Propofol 1,000 mg In 100 72.25 ml @ Titrate IV .Q0M STA Rx#:[id number] Other 50 Output: Urine 54 0 Stool 20 Oral Regurgitation 400 Other: Weight 65.1 kg Patient Weight 07/22/17 06:59 Weight 65.1 kg Constitutional: AOx1, sedated, intubated and on ventilator HEENT: NC/AT, no facial asymmetry is seen. Throat: Supple, no masses Respiratory: ventilator with sedation Cardiac: Regular rate and Rhythm GI: non tender, non distended Musculoskeletal: Limited physical exam as patient is sedated. Neurological: CN II-XII in tact, patient was AOx1, generalized weakness, no seizure activity noted patient unable to move extremities 4. Integementary: no rash, no erythema Psychiatric: medically sedated Results - Laboratory Findings CBC and BMP: 07/21/17 01:05 07/21/17 14:30 Abnormal Lab Findings: Abnormal Labs 07/21/17 07/21/17 07/21/17 01:02 01:05 01:05 RBC 3.69 L Hgb 12.5 L Hct 37.3 L MCV 101.0 H RDW 16.6 H Plt Count 114 L Neutrophils # 9.0 H Lymphocytes # 0.8 L ABG pO2 ABG HCO3 ABG O2 Saturation Sodium Carbon Dioxide 14 L BUN 79 H Creatinine 15.10 H* Glucose 129 H POC Glucose (mg/dL) 148 H Plasma Lactic Acid Tenzin Calcium 8.3 L Total Protein 6.1 L Urine Protein Urine Glucose (UA) Urine Blood 07/21/17 07/21/17 07/21/17 01:05 04:30 09:06 RBC Hgb Hct MCV RDW Plt Count Neutrophils # Lymphocytes # ABG pO2 174 H ABG HCO3 20 L ABG O2 Saturation 100.0 H Sodium Carbon Dioxide BUN Creatinine Glucose POC Glucose (mg/dL) Plasma Lactic Acid Tenzin 6.0 H* Calcium Total Protein Urine Protein 3+ H Urine Glucose (UA) 2+ H Urine Blood Small H 07/21/17 07/21/17 09:15 14:30 RBC Hgb Hct MCV RDW Plt Count Neutrophils # Lymphocytes # ABG pO2 ABG HCO3 ABG O2 Saturation Sodium 136 L Carbon Dioxide 20 L BUN 23 H Creatinine 5.60 H* Glucose 100 H POC Glucose (mg/dL) 111 H Plasma Lactic Acid Tenzin Calcium Total Protein Urine Protein Urine Glucose (UA) Urine Blood Assessment and Plan (1) CVA (cerebral vascular accident) Status: Acute (2) Status epilepticus Status: Acute (3) Chronic renal failure Status: Acute (4) Encephalopathy Status: Acute (5) Hypertensive urgency Status: Acute Plan: 1. CVA: Based on imaging, does. The patient had an evolving thalamic infarct. At this time full effect of the infarct is unable to be assessed completely as the patient is intubated and on a ventilator. Sedation holiday to be performed in the morning for full neurological assessment. Patient is stable at this time and in no acute distress. 2. Toxic metabolic encephalopathy: Patient is a dialysis patient and is largely noncompliant with dialysis. Patient was observed to be fluid overloaded at presentation in the ED as well as notations regarding missing dialysis appointments or leaving early. Defer to primary team and nephrology for further management of patient's chronic kidney disease. Continue to correct underlying etiology and disorder. 3. Status epilepticus: Patient is on Keppra on a routine basis. Patient is intermittently compliant with medication regimen. While inpatient patient is currently on Keppra 750 mg every 12 hours. Since being started on Keppra, patient has not had new seizure- like activity. Status: Neurology will continue to follow provide updates as needed or warranted Feel free to contact our office for any questions I discussed the patient's pertinent medical information with Dr. Perez. He agrees with the plan of care as implemented.
[2017-07-22] MEDS: PROPOFOL 1,000 MG/100 ML VIAL IV SCH ×3 (00:26→21:20)
[2017-07-22] MEDS: SODIUM CHLORIDE 0.9% 1,000 ML IV SCH (00:28)
[2017-07-22 04:56] LABS: ABG HCO3 20 mmol/L (21-25); ABG PCO2 33 mmHg (35-45); ABG PO2 69 mmHg (83-108); ABG TCO2 21 mmol/L (19-24)
[2017-07-22 05:11] LABS: Calcium 8.1 mg/dL (8.4-10.2); Magnesium 2.1 mg/dL (1.6-2.3); Phosphorous 7.5 mg/dL (2.5-4.5); Potassium 5.3 mmol/L (3.5-5.1); Total Bilirubin 0.9 mg/dL (0.2-1.3); Total Protein 5.3 g/dL (6.3-8.2)
[2017-07-22 05:12] LABS: Anisocytosis Slight; Basophils % (A) 1 %; CH 32.4; CHCM 32.1; Eosinophils # (A) 0.1 k/uL (0-0.7); Eosinophils % (A) 1 %; HCT 33.5 % (39.0-53.0); HGB 11.1 gm/dL (13.0-17.5); Hypochromasia Slight; Luc # (Auto) 0.12; Luc % (Auto) 2; Lymphocytes # (A) 0.7 k/uL (1.0-4.8); Lymphocytes % (A) 10 %; MCH 33.5 pg (25.0-35.0); MCHC 33.1 g/dL (31.0-37.0); MCV 101.4 fL (80.0-100.0); Macrocytosis Slight; Mean Platelet Volume 7.3; Monocytes # (A) 0.3 k/uL (0-1.0); Monocytes % (A) 4 %; Neutrophils # (A) 6.2 k/uL (1.3-7.7); Neutrophils % (A) 84 %; RBC 3.31 m/uL (4.30-5.90); RDW 16.4 % (11.5-15.5); WBC 7.5 k/uL (3.8-10.6); WBC (Perox) 7.66
--- NOTE | 2017-07-22 07:16 | XR ---
"EXAMINATION TYPE: XR chest 1V portable DATE OF EXAM: 07/22/2017 CLINICAL HISTORY: Difficulty breathing progress study. TECHNIQUE: 2 AP portable upright views of the chest are obtained. COMPARISON: Chest x-ray from one day earlier FINDINGS: Endotracheal tube is stable in position. Orogastric tube has been retracted with tip overl milton the lower thorax, recommend advancing. There is persistent bilateral predominantly lower lung opacity felt to reflect small to moderate-siz ed bilateral pleural effusions and associated bibasilar atelectasis and/or infiltrate. Cardiac silhou ette size is suspected mildly enlarged. Osseous structures are intact. IMPRESSION: 1. Orogastric tube has been retracted with tip now in the lower thoracic esophagus. Recommend advanci ng. 2. There is stable mild cardiomegaly with better visualize small to moderate-sized bilateral pleural effusions and central vascular congestion, findings suggest CHF exacerbation. There is associated bib asilar atelectasis and/or infiltrate noted. A Yellow message has been communicated to Barbara Doss via the [employer] | Critical Result s ystem on 07/22/2017 7:13 AM, Message ID [id number]."
[2017-07-22] MEDS: HEPARIN SODIUM,PORCINE 5,000 UNIT/ML 1 ML VIAL SQ SCH ×2 (08:15→15:39)
--- NOTE | 2017-07-22 08:44 | P.PN ---
Subjective This is a 47-year-old patient known to us with ESRD on dialysis Saturday at the [facility] unit. He has a history of noncompliance. He came in yesterday 07/21/2017 safter having a seizure, and any came into the ER noted to be drowsy but able to answer questions. He was given Keppra and Ativan and in spite of this in the ER he had 2 more seizures. he was intubated and moved to ICU. He was dialyzed yesterday because of missing 2 dialysis. further workup has shown a thalamic infarct on the computed tomography scan. In the ICU today 07/22/2017 he is on the vent at 6% FiO2. He opens his eyes but does not follow any commands. Additionally he seems to have less strength on his left leg. He withdraws his right leg but not the left. He is known with seizure disorder. He has history of noncompliance. He Mrs. dialysis frequently and is also known to cut the treatment time. He was recently admitted here with symptoms suggestive of TIA, as well as possible spinal stenosis in his neck that might have caused some of these symptoms. He has chronic neck pain and was under the care of chiropractic at the time. He was seen by neurologist, discharged. Since then he has missed 2 dialysis before he came in here therefore his last dialysis was on Saturday, having missed his and Saturday dialysis and came in 07/21/2017 He is known with ESRD on dialysis as mentioned, etiology is multiple kidney stones with family history of the same he has never been transplanted because of problems with noncompliance. He was recommended to have bilateral nephrectomy but he refused. He is known with seizure disorder for approximately last 1 year his recent seizure episode prior to this seizure episode was in April 2017 when he was admitted to the [facility]. It should be noted that he has moved from different dialysis unit because of difficulty with the staff. Objective - Vital Signs Vital signs: Vital Signs Temp 99.2 F 07/22/17 08:00 Pulse 72 07/22/17 08:00 Resp 16 07/22/17 08:00 BP 123/72 07/22/17 08:00 Pulse Ox 95 07/22/17 08:00 Intake & Output 09/03/17 09/04/17 09/04/17 18:59 06:59 18:59 Intake Total 395.669 613.080 40 Output Total 474 20 0 Balance -78.331 593.080 40 Weight 94.4 kg Intake: IV 60 340 40 Sodium Chloride 0.9% 1, 60 240 40 000 ml @ 20 mls/hr IV . Q24H KRISTY Rx#:[id number] levETIRAcetam IV 1,000 mg 100 In Saline 1 100ml.bag @ 400 mls/hr IVPB ONCE STA Rx#:[id number] Intake, IV Titration 335.669 193.080 Amount Labetalol 100 mg In 257.5 Sodium Chloride 0.9% 80 ml @ 0.5 MG/MIN 30 mls/hr IV .Q3H20M KRISTY Rx#: [id number] Propofol 1,000 mg In 100 5.919 193.080 ml @ Titrate IV .Q0M KRISTY Rx#:[id number] Propofol 1,000 mg In 100 72.25 ml @ Titrate IV .Q0M STA Rx#:[id number] Other 80 Output: Urine 54 0 0 Stool 20 20 Oral Regurgitation 400 Other: Voiding Method Diaper On exam concurrently on the vent 6% FiO2. HEENT exam no JVP neck is supple no facial asymmetry pupils are equal and about 3-4 mm each. Lungs are clear to auscultation fair air entry with some coarse crackles at both bases. Heart sounds are unremarkable no murmur rub gallop normal sinus rhythm on the monitor Abdomen is soft nontender no masses felt Extremity exam was no edema Neurologically opens eyes but does not follow commands nor does he make any eye contact. He withdraws to pain on the right leg but not on the left - Labs CBC & Chem 7: 07/22/17 04:36 07/22/17 04:36 Labs: Abnormal Lab Results - Last 24 Hours (Table) 07/21/17 07/21/17 07/21/17 Range/Units 09:06 09:15 14:30 RBC (4.30-5.90) m/uL Hgb (13.0-17.5) gm/dL Hct (39.0-53.0) % MCV (80.0-100.0) fL RDW (11.5-15.5) % Plt Count (150-450) k/uL Lymphocytes # (1.0-4.8) k/uL ABG pCO2 (35-45) mmHg ABG pO2 174 H (83-108) mmHg ABG HCO3 20 L (21-25) mmol/L ABG O2 Saturation 100.0 H (94-97) % Sodium 136 L (137-145) mmol/L Potassium (3.5-5.1) mmol/L Carbon Dioxide 20 L (22-30) mmol/L BUN 23 H (9-20) mg/dL Creatinine 5.60 H* (0.66-1.25) mg/dL Glucose 100 H (74-99) mg/dL POC Glucose (mg/dL) 111 H (75-99) mg/dL Calcium (8.4-10.2) mg/dL Phosphorus (2.5-4.5) mg/dL AST (17-59) U/L Total Protein (6.3-8.2) g/dL Albumin (3.5-5.0) g/dL 07/22/17 07/22/17 07/22/17 Range/Units 04:27 04:36 04:36 RBC 3.31 L (4.30-5.90) m/uL Hgb 11.1 L (13.0-17.5) gm/dL Hct 33.5 L (39.0-53.0) % MCV 101.4 H (80.0-100.0) fL RDW 16.4 H (11.5-15.5) % Plt Count 81 L (150-450) k/uL Lymphocytes # 0.7 L (1.0-4.8) k/uL ABG pCO2 33 L (35-45) mmHg ABG pO2 69 L (83-108) mmHg ABG HCO3 20 L (21-25) mmol/L ABG O2 Saturation (94-97) % Sodium 136 L (137-145) mmol/L Potassium 5.3 H (3.5-5.1) mmol/L Carbon Dioxide 21 L (22-30) mmol/L BUN 43 H (9-20) mg/dL Creatinine 9.78 H* (0.66-1.25) mg/dL Glucose (74-99) mg/dL POC Glucose (mg/dL) (75-99) mg/dL Calcium 8.1 L (8.4-10.2) mg/dL Phosphorus 7.5 H (2.5-4.5) mg/dL AST 16 L (17-59) U/L Total Protein 5.3 L (6.3-8.2) g/dL Albumin 3.1 L (3.5-5.0) g/dL Assessment and Plan Plan: Impression. 1. ESRD secondary to nephrolithiasis with strong family history. On dialysis for 8 years with a right forearm fistula. Missed dialysis twice and came in with seizure and had 2 further seizures in the emergency room. Currently vent dependent, on 60% FiO2. He was dialyzed yesterday 07/21/2017 and 3 L were taken off 2. New thalamic infarct seen on computed tomography scan. 2. Recently was Admitted with possible TIA recently dated 07/06/2017 and discharged 07/07/2017. At the time workup was negative. Question of spinal stenosis in his neck. 3. Chronic neck pain, MRI dated 07/10/2017 showed multilevel degenerative disc disease spinal stenosis with possible myelomalacia also a tortuous vertebral artery and the left is seen in close proximity to the left C2 nerve root 4. Lactic acidosis secondary to seizures expected to resolve. Bicarb 14 and anion gap 24 lactic acidosis was 6. Today's lab anion gap is 39 bicarb is up to 21 5. Hemoglobin maintain a target, 12.5. 7. Mild thrombocytopenia cause not very clear Recommendation. Lasix 80 mg every 8 to induce some diuresis. He'll be dialyzed today as well We'll dialyze him today 4 hours we will take off 3 L. Will also make sure any effect of uremia or removed
--- NOTE | 2017-07-22 09:13 | P.PN ---
Subjective This is a 47-year-old male patient with known history of a incisional disease maintained on hemodialysis 3 times a week Saturday and Saturday. The patient has a long history of noncompliance to hemodialysis. His been dialysis for the past 8 years at least. He is currently receiving his diet to [facility]. He apparently missed the last 2 sessions of dialysis. He also has history of seizure for which he was started on Prednisone point however he has not been taking the medication a regular basis. Apparently, the patient was having generalized seizures at home. The patient was having back-to -back seizures each one lasting around 3 minutes. The EMS found this patient post ictal. Following that the patient was brought in to the burst department and he was unresponsive and he was unable to answer any questions. He is neurologic exam was nonfocal. He was found to be in fluid overload and significant respiratory distress. Based on that the patient was intubated and placed on a mechanical ventilator. He was started on Keppra. Post intubation he was started on Diprivan which is currently running at 20 mics. He was also started the Versed drip at 1 mg an hour. He was started on hemodialysis this morning in the emergency department and the diagnosis got completed around 3 PM this afternoon. A total of 3 L of fluid was ultrafiltrate as. At this point in time, the patient intubated on a mechanical ventilator. He is an assist- control mode at the rate of 18, tidal volume of 600, FiO2 was around down to 60 % and he isn't a PEEP of 5. Post intubation blood gases was done on the percent FiO2 showed a pH of 7.35 with a pCO2 of 37 and pO2 of 174. Peak airway pressures around 22. Chest x-ray showed evidence of pulmonate edema and ET tube was high in the trachea which was repositioned. The patient was also noted to have significantly elevated blood pressure. He was started on labetalol drip for blood pressure control. All these treatments were done in the burst department. After completing his hemodialysis, the patient got moved to the intensive care unit. Note that since his arrival to the hospital, no fluid seizure activities of been noted. Patient is currently receiving Keppra 750 mg IV every 12 hours. Labetalol drip is still running for blood pressure control. He is quite sedated. The CAT scan of the brain showed new hypoattenuation in the left thalamus and mild expansion and this raises the suspicion for a infarction. Other possibilities would also consider there is toxic metabolic process/infectious process. His previous echocardiogram from June 2017 showed a moderate concentric left ventricular hypertrophy with an ejection fraction of 55-60% without any significant valvular abnormalities. Noted the patient was in the hospital in June 2017 for left-sided numbness and weakness. MRI of the spine at was done at that time showed multilevel degenerative disc disease/spinal stenosis with some suggestion of myelomalacia. On 07/22/2017 the patient is being seen in follow-up in the intensive care unit. The patient is still intubated on a mechanical ventilator. A sedation holiday was given to him today. He woke up nicely. He was following some simple commands. He was squeezing with his upper extremities bilaterally in the motor function was felt to be equal and symmetrical. There was some noted weakness on the left lower extremity. No obvious Babinski. Note that his CAT scan of the chest showed a questionable thalamic stroke however the patient is known to have some chronic left-sided weakness related to cervical spine degenerative disc disease and spinal stenosis. Is not clear to me whether this is a new onset weakness or not. No seizure activity has been noted. The patient is currently on IV Keppra. He got dialyzed yesterday. A second session of dialysis will be done today. The patient be started also on IV Lasix knowing that he produces urine and he was placed on 80 mg IV push every 8 hours. The patient is an assist-control mode with a tidal volume of 600, FiO2 of 60% and a PEEP of 5. The morning blood gases showed a pH of 7.4 with a pCO2 of 33 and pO2 of 69 on a 60% FiO2. Chest x-ray still showing pulmonary asked her congestion and moderate-sized bilateral pleural effusion. For that reason, I decided to give this patient another day of mechanical ventilation to stabilize his condition further prior to considering any weaning. No fever. No chills. No other significant events over the past 24 hours. He is being seen by nephrology. Neurology consultation was also requested. Objective - Vital Signs Vital signs: Vital Signs Temp 99.2 F 07/22/17 08:00 Pulse 72 07/22/17 08:00 Resp 16 07/22/17 08:00 BP 123/72 07/22/17 08:00 Pulse Ox 95 07/22/17 08:00 Intake & Output 07/21/17 07/22/17 07/22/17 18:59 06:59 18:59 Intake Total 395.669 613.080 40 Output Total 474 20 0 Balance -78.331 593.080 40 Weight 94.4 kg Intake: IV 60 340 40 Sodium Chloride 0.9% 1, 60 240 40 000 ml @ 20 mls/hr IV . Q24H KRISTY Rx#:[id number] levETIRAcetam IV 1,000 mg 100 In Saline 1 100ml.bag @ 400 mls/hr IVPB ONCE STA Rx#:[id number] Intake, IV Titration 335.669 193.080 Amount Labetalol 100 mg In 257.5 Sodium Chloride 0.9% 80 ml @ 0.5 MG/MIN 30 mls/hr IV .Q3H20M KRISTY Rx#: [id number] Propofol 1,000 mg In 100 5.919 193.080 ml @ Titrate IV .Q0M KRISTY Rx#:[id number] Propofol 1,000 mg In 100 72.25 ml @ Titrate IV .Q0M STA Rx#:[id number] Other 80 Output: Urine 54 0 0 Stool 20 20 Oral Regurgitation 400 Other: Voiding Method Diaper - Exam Patient is intubated on a mechanical ventilator.Head exam was generally normal. There was no scleral icterus or corneal arcus. Mucous membranes were moist. Neck is supple and there is no JVDs no goiter or neck masses. The patient has orogastric and tracheal tube are both in place.Neck was supple and without jugular venous distension, thyromegaly, or carotid bruits. Carotids were easily palpable bilaterally. There was no adenopathy. Lung sounds are diminished bilaterally especially in lung bases. No wheezes or rhonchi or any crackles.Cardiac exam revealed the PMI to be normally situated and sized. The rhythm was regular and no extrasystoles were noted during several minutes of auscultation. The first and second heart sounds were normal and physiologic splitting of the second heart sound was noted. There were no murmurs, rubs, clicks, or gallops.Abdominal exam revealed normal bowel sounds. The abdomen was soft, non-tender, and without masses, organomegaly, or appreciable enlargement of the abdominal aorta.Examination of the extremities revealed easily palpable radial, femoral and pedal pulses. There was no cyanosis, clubbing or edema. Neurologically the patient is sedated. - Labs CBC & Chem 7: 07/22/17 04:36 07/22/17 04:36 Labs: Abnormal Lab Results - Last 24 Hours (Table) 07/21/17 07/21/17 07/21/17 Range/Units 09:06 09:15 14:30 RBC (4.30-5.90) m/uL Hgb (13.0-17.5) gm/dL Hct (39.0-53.0) % MCV (80.0-100.0) fL RDW (11.5-15.5) % Plt Count (150-450) k/uL Lymphocytes # (1.0-4.8) k/uL ABG pCO2 (35-45) mmHg ABG pO2 174 H (83-108) mmHg ABG HCO3 20 L (21-25) mmol/L ABG O2 Saturation 100.0 H (94-97) % Sodium 136 L (137-145) mmol/L Potassium (3.5-5.1) mmol/L Carbon Dioxide 20 L (22-30) mmol/L BUN 23 H (9-20) mg/dL Creatinine 5.60 H* (0.66-1.25) mg/dL Glucose 100 H (74-99) mg/dL POC Glucose (mg/dL) 111 H (75-99) mg/dL Calcium (8.4-10.2) mg/dL Phosphorus (2.5-4.5) mg/dL AST (17-59) U/L Total Protein (6.3-8.2) g/dL Albumin (3.5-5.0) g/dL 07/22/17 07/22/17 07/22/17 Range/Units 04:27 04:36 04:36 RBC 3.31 L (4.30-5.90) m/uL Hgb 11.1 L (13.0-17.5) gm/dL Hct 33.5 L (39.0-53.0) % MCV 101.4 H (80.0-100.0) fL RDW 16.4 H (11.5-15.5) % Plt Count 81 L (150-450) k/uL Lymphocytes # 0.7 L (1.0-4.8) k/uL ABG pCO2 33 L (35-45) mmHg ABG pO2 69 L (83-108) mmHg ABG HCO3 20 L (21-25) mmol/L ABG O2 Saturation (94-97) % Sodium 136 L (137-145) mmol/L Potassium 5.3 H (3.5-5.1) mmol/L Carbon Dioxide 21 L (22-30) mmol/L BUN 43 H (9-20) mg/dL Creatinine 9.78 H* (0.66-1.25) mg/dL Glucose (74-99) mg/dL POC Glucose (mg/dL) (75-99) mg/dL Calcium 8.1 L (8.4-10.2) mg/dL Phosphorus 7.5 H (2.5-4.5) mg/dL AST 16 L (17-59) U/L Total Protein 5.3 L (6.3-8.2) g/dL Albumin 3.1 L (3.5-5.0) g/dL Assessment and Plan Plan: Assessment 1 seizure disorder. The patient had multiple seizures prior to him coming to the hospital/possible status epilepticus. Currently on Keppra. He is totally sedated with Diprivan at 45 g. No seizure-like activities noticed here in the intensive care unit. Note that no seizure activity has been noted over the past 12 hours. The patient was given a sedation holiday this morning and there is some probable motor weakness in the left lower extremity and this can be acute versus chronic. In any rate, the patient woke up very nicely from sedation and he was able to follow some simple commands. He was placed on Diprivan again knowing that he is not ready for weaning for extubation yet. 2 acute hypoxic respiratory failure secondary to fluid overload. Chest x-ray is consistent with volume overload and pulmonary edema. The patient received hemodialysis was 5 L of ultrafiltration yesterday. Chest x-ray from today showing moderate-sized bilateral pleural effusion. Is still on 60% FiO2 while being mechanically ventilated with a tidal volume of 600 and a PEEP of 5. The pO2 is in the low 60 range. As such, would like to give the patient another day of diuresis and dialysis to optimize his volume status prior to him being extubated. His oxygenation is still borderline. 3 acute thalamic stroke is suspected based on the Computed tomography scan of the brain, these clinical correlation 4 End-stage renal disease on hemodialysis 3 times a week, with poor compliance 5 hypertension, poorly controlled and currently the patient is off labetalol and the blood pressures well controlled. 6 chronic back pain with multilevel degenerative disc disease and stenosis 7 acute lactic acidosis, recovered 8 chronic nephrolithiasis leading into end-stage renal disease Plan Keep the patient sedated for now. We'll keep the patient on Diprivan. Continue the IV Keppra. Monitor EEG. Unclear of the patient had a stroke. The weakness on the left could be potentially chronic. The patient will have dialysis today. Start IV Lasix as long as the patient is producing urine. Optimize her fluid balance. The Tidal Volume to 500. Keep the FiO2 at 60% and Gradually Wean It down As Long As the Saturation Remains above 92%. Repeat Chest X-Ray in the Morning. Consider Extubation with the Next 24 Hours If the Patient Remains Stable. Case Was Discussed with His . Condition Is Critical. This Evaluation Was Done and 35 Minutes. Time with Patient: Greater than 30
[2017-07-22] MEDS: FUROSEMIDE 10 MG/ML 10 ML VIAL IV SCH ×2 (09:25→15:39)
[2017-07-22] MEDS: ASPIRIN 300 MG SUPP RECTAL SCH (09:28)
[2017-07-22] MEDS: BACLOFEN 10 MG TAB PO SCH ×2 (09:28→22:53)
[2017-07-22] MEDS: CHLORHEXIDINE GLUCONATE 15 ML CUP MUCOUS MEM SCH ×2 (09:28→22:53)
[2017-07-22] MEDS: cloNIDine HCL 0.1 MG TAB PO SCH ×3 (09:28→22:54)
[2017-07-22] MEDS: FAMOTIDINE 20 MG/2 ML VIAL IV SCH (09:29)
[2017-07-22] MEDS: SODIUM BICARBONATE TAB 650 MG TAB PO SCH ×2 (09:29→22:54)
[2017-07-22] MEDS: LISINOPRIL 20 MG TAB PO SCH ×2 (09:29→22:53)
[2017-07-22] MEDS: levETIRAcetam IV 750 MG in SODIUM CHLORIDE 0.9% 100 ML IVPB SCH ×2 (11:00→22:59)
[2017-07-22] MEDS: CLEVIDIPINE BUTYRATE 25 MG in EMPTY BAG 1 BAG IV SCH (12:16)
--- NOTE | 2017-07-22 12:20 | P.PN ---
Subjective This is a 47-year-old male patient of Dr. Jaylen juares with past medical history of end-stage renal disease on hemodialysis 3 times weekly, hypertension, seizure disorder. Patient had a recent hospitalization July 06 for TIA and was seen in consultation by Dr. Viveros. There was concern for cervical spondylosis and recommended MRI of the cervical spine and orthopedic consult. Carotid duplex showed no stenosis. Echocardiogram revealed EF of 55- 60%, no pulmonary hypertension, moderate concentric left hypertrophy, trace mitral regurgitation, trace tricuspid regurgitation. Patient was discharged home on new medication of clonidine. Patient now presents to [facility] emergency center by EMS with seizure activity. Upon arrival, patient was post ictal. Initial blood pressure was 250/148. Patient received 2 doses of hydralazine 20 mg IV push and clonidine patch followed by nitroglycerin drip. Blood pressure was improved but remain elevated and nitroglycerin drip was discontinued and patient started on labetalol drip. CAT scan of the brain showed a new hypoattenuation in the left thalamus with mild expansion. Differential include evolving infarction, toxic metabolic process, infectious process. Punctate dermal hyperdensity in the right premaxillary region. Correlate for foreign body. Dehiscence of the left lamina papyracea. Chest x-ray showed bibasilar and bilateral hilar infiltrates. While in the emergency room patient had a second seizure, generalized tonic-clonic seizure and given Ativan as well as Keppra 1 g IV. Patient did miss 2 hemodialysis treatments and this was initiated in the emergency center. He was given a rectal aspirin and consult placed with Dr. Perez. Patient did have a third seizure around 6:30 AM and he was intubated at that time. Patient is seen in the emergency room, waiting for her ICU bed. Dr. Doss, Dr. Perez, Dr. Rod are on consult. Outpatient cervical spine MRI ordered by Dr. Benjamin showed multilevel degenerative disc disease, spinal stenosis with digestion of myelomalacia. Multilevel foraminal encroachment. Tortuous vertebral artery on the left is in close proximity to the left C2 nerve root 07/22: Dr. Rod is recommending repeat dialysis today. Dr. Doss is following as well as Dr. Perez. EEG was ordered. Labetalol drip was discontinued by Dr. Doss and and placed him on clevidipine drip, lisinopril and clonidine. He remains intubated and on mechanical ventilation. He has large amount of secretions for which Zosyn has been added. No plan for weaning today. Objective - Vital Signs Vital signs: Vital Signs Temp 99.2 F 07/22/17 08:00 Pulse 72 07/22/17 08:00 Resp 16 07/22/17 08:00 BP 123/72 07/22/17 08:00 Pulse Ox 95 07/22/17 08:00 Intake & Output 07/21/17 07/22/17 07/22/17 18:59 06:59 18:59 Intake Total 395.669 613.080 40 Output Total 474 20 0 Balance -78.331 593.080 40 Weight 94.4 kg Intake: IV 60 340 40 Sodium Chloride 0.9% 1, 60 240 40 000 ml @ 20 mls/hr IV . Q24H KRISTY Rx#:[id number] levETIRAcetam IV 1,000 mg 100 In Saline 1 100ml.bag @ 400 mls/hr IVPB ONCE STA Rx#:[id number] Intake, IV Titration 335.669 193.080 Amount Labetalol 100 mg In 257.5 Sodium Chloride 0.9% 80 ml @ 0.5 MG/MIN 30 mls/hr IV .Q3H20M KRISTY Rx#: [id number] Propofol 1,000 mg In 100 5.919 193.080 ml @ Titrate IV .Q0M KRISTY Rx#:[id number] Propofol 1,000 mg In 100 72.25 ml @ Titrate IV .Q0M STA Rx#:[id number] Other 80 Output: Urine 54 0 0 Stool 20 20 Oral Regurgitation 400 Other: Voiding Method Diaper - Exam General appearance: average body habitus, no acute distress - EENT Eyes: PERRLA, no scleral icterus, normal appearance ENT: no thrush (oral ET and gastric tubes) - Neck Neck: no lymphadenopathy, no thyromegaly Carotids: bilateral: bruit absent - Respiratory Respiratory: bilateral: CTA, diminished - Cardiovascular Heart sounds: normal: S1, S2 Abnormal Heart Sounds: systolic murmur - Gastrointestinal General gastrointestinal: no absent bowel sounds, no distended, no hepatomegaly , no hyperactive bowel sounds, normal bowel sounds, no organomegaly, no rigid, no scaphoid, soft, no splenomegaly, no tenderness, no umbilical hernia, no ventral hernia - Integumentary Integumentary: no cellulitis, no cyanotic, no jaundiced, normal - Musculoskeletal Musculoskeletal: no gait normal - Psychiatric Psychiatric: no A&O x's 3, no appropriate affect, no intact judgment & insight - Labs CBC & Chem 7: 07/22/17 04:36 07/22/17 04:36 Labs: Abnormal Lab Results - Last 24 Hours (Table) 07/21/17 07/21/17 07/21/17 Range/Units 09:06 09:15 14:30 RBC (4.30-5.90) m/uL Hgb (13.0-17.5) gm/dL Hct (39.0-53.0) % MCV (80.0-100.0) fL RDW (11.5-15.5) % Plt Count (150-450) k/uL Lymphocytes # (1.0-4.8) k/uL ABG pCO2 (35-45) mmHg ABG pO2 174 H (83-108) mmHg ABG HCO3 20 L (21-25) mmol/L ABG O2 Saturation 100.0 H (94-97) % Sodium 136 L (137-145) mmol/L Potassium (3.5-5.1) mmol/L Carbon Dioxide 20 L (22-30) mmol/L BUN 23 H (9-20) mg/dL Creatinine 5.60 H* (0.66-1.25) mg/dL Glucose 100 H (74-99) mg/dL POC Glucose (mg/dL) 111 H (75-99) mg/dL Calcium (8.4-10.2) mg/dL Phosphorus (2.5-4.5) mg/dL AST (17-59) U/L Total Protein (6.3-8.2) g/dL Albumin (3.5-5.0) g/dL 07/22/17 07/22/17 07/22/17 Range/Units 04:27 04:36 04:36 RBC 3.31 L (4.30-5.90) m/uL Hgb 11.1 L (13.0-17.5) gm/dL Hct 33.5 L (39.0-53.0) % MCV 101.4 H (80.0-100.0) fL RDW 16.4 H (11.5-15.5) % Plt Count 81 L (150-450) k/uL Lymphocytes # 0.7 L (1.0-4.8) k/uL ABG pCO2 33 L (35-45) mmHg ABG pO2 69 L (83-108) mmHg ABG HCO3 20 L (21-25) mmol/L ABG O2 Saturation (94-97) % Sodium 136 L (137-145) mmol/L Potassium 5.3 H (3.5-5.1) mmol/L Carbon Dioxide 21 L (22-30) mmol/L BUN 43 H (9-20) mg/dL Creatinine 9.78 H* (0.66-1.25) mg/dL Glucose (74-99) mg/dL POC Glucose (mg/dL) (75-99) mg/dL Calcium 8.1 L (8.4-10.2) mg/dL Phosphorus 7.5 H (2.5-4.5) mg/dL AST 16 L (17-59) U/L Total Protein 5.3 L (6.3-8.2) g/dL Albumin 3.1 L (3.5-5.0) g/dL Assessment and Plan Plan: 1. Evolving left thalamus stroke. Aspirin 300 mg rectally daily, neurology consult, carotid ultrasound and echocardiogram from previous visit. Continue neuro checks. 2. Accelerated hypertension. Patient will be placed on labetalol drip, change to the video pain drip, lisinopril and clonidine. Patient has received 3 doses of labetalol in the emergency center, clonidine patch and nitroglycerin drip. 3. Acute hypoxic respiratory failure secondary to seizure activity and thalamus stroke with metabolic encephalopathy. Dr. Doss is on consult. Patient is intubated and on mechanical ventilation. 4. Status epilepticus with history of seizures. Patient was given Keppra 1 g IV piggyback 1 and continued on 750 mg every 12 hours. Ativan as needed for active seizures. Neurology consult. Patient was previously on Keppra 500 mg every 12 hours. 5. End-stage renal disease and lactic acidosis on hemodialysis presenting with fluid overload secondary to noncompliance and missing 2 dialysis treatments. Patient is currently undergoing dialysis in the emergency center. Dr. Rod is on consult. 6. Chronic cervical pain. Patient underwent outpatient MRI as noted above. Patient has been on Tylenol No. 3 and baclofen as well as undergoing pain management injections with Dr. Perez. 7. Tobacco use and dependence and recently discharged on nicotine patch. 8. Chronic thrombocytopenia. Monitor. 9. DVT prophylaxis. KP hose and SCDs. 10. GI prophylaxis. Pepcid IV 11. CODE STATUS: Full code. Discharge plan: To be determined Impression and plan of care have been directed as dictated by the signing physician. Doretha Brumfield nurse practitioner acting as scribe for signing physician.
[2017-07-22] MEDS: PIPERACILLIN-TAZOBACTAM 3.375 GM in DEXTROSE/WATER 1 50ML.BAG IVPB SCH ×2 (12:46→22:59)
--- NOTE | 2017-07-22 14:34 | CT ---
EXAMINATION TYPE: CT brain wo con DATE OF EXAM: 07/22/2017 COMPARISON: NONE INDICATION: Seizure DLP: 931.5 mGycm, Automated exposure control for dose reduction was used. CONTRAST: None CT of the brain is performed utilizing 3 mm thick sections through the posterior fossa and 3 mm thick sections through the remaining calvarium. Study is not performed within 24 hours of arrival to the hospital. Patient is intubated. No abnormal hyperdensity is present to suggest an acute intracranial hemorrhage. No mass lesion is evident. No acute infarcts are evident. Periventricular white matter hypodensity is present compatible with mi crovascular ischemic changes. Hypodensity within the left thalamus appears somewhat smaller than comp arison in width measuring 0.5 cm in width. Ventricles and sulci are appropriate for the patient age. Paranasal sinuses and mastoid air cells within the [id number] are clear. IMPRESSIONS: 1. Nonspecific periventricular white matter ischemic changes, likely chronic. 2. There may be some maturation of a lacunar infarct of the medial left thalamus which is somewhat le ss wide comparison study. This may be normal maturation.
--- NOTE | 2017-07-22 16:42 | P.PN ---
Subjective Principal diagnosis: seizure, stroke July 22: Patient was given a sedation holiday, intermittently winced his eyes when his name was stated. Patient would intermittently respond to painful stimuli in bilateral lower extremities. Patient did not comply with simple verbal commands. Patient was placed back on sedation. July 21, 2017: Patient was seen in the ICU, sedated on a ventilator. Patient was unable to be fully assessed as a result of sedation. Patient information was obtained from the spouse at the bedside. History: Patient is a 47-year-old male being followed by neurology for seizure disorder and ophthalmic stroke. Patient was hospitalized July 06 for TIA and consult by Dr. Viveros. There was concern for cervical spondylosis and recommended MRI of the cervical spine and orthopedic consult. Carotid duplex showed no stenosis. Echocardiogram revealed EF of 55-60%, no pulmonary hypertension, moderate concentric left hypertrophy, trace mitral regurg, trace tricuspid regurg. Patient was discharged home on new medication of clonidine. Patient presents to ED via ambulance with seizure activity. Upon arrival, patient was postictal. Initial blood pressure was 250/148. Patient received 2 doses of hydralazine 20 mg IV push and clonidine patch followed by nitroglycerin drip. Blood pressure was improved but remain elevated nitroglycerin drip was discontinued and patient started on labetalol drip. CT of the brain showed hypoattenuation in the left thalamus with mild expansion. Working diagnoses included evolving thalamic stroke, toxic metabolic encephalopathy. Chest x-ray showed bibasilar bilateral hilar infiltrates. While in the ED patient had a second seizure, generalized tonic-clonic and given Ativan as well as Keppra 1 g IV. Patient is known to be noncompliant with hemodialysis and other forms of treatment. Patient was given/prescribed rectal aspirin via phone order from neurologist, Dr. Perez. Patient did have a third seizure around 0630 hrs. and intubated at that time. Objective - Vital Signs Vital signs: Vital Signs Temp 99.2 F 07/22/17 08:00 Pulse 68 07/22/17 15:00 Resp 12 07/22/17 15:00 BP 111/69 07/22/17 15:00 Pulse Ox 100 07/22/17 15:00 Intake & Output 07/21/17 07/22/17 07/22/17 18:59 06:59 18:59 Intake Total 395.669 613.080 460 Output Total 474 20 270 Balance -78.331 593.080 190 Weight 94.4 kg Intake: IV 60 340 360 Piperacillin-Tazobactam 3 50 .375 gm In Dextrose/Water 1 50ml.bag @ 12.5 mls/hr IVPB Q12H KRISTY Rx#: [id number] Sodium Chloride 0.9% 1, 60 240 210 000 ml @ 20 mls/hr IV . Q24H KRISTY Rx#:[id number] levETIRAcetam IV 1,000 mg 100 In Saline 1 100ml.bag @ 400 mls/hr IVPB ONCE STA Rx#:[id number] levETIRAcetam IV 750 mg 100 In Sodium Chloride 0.9% 100 ml @ 400 mls/hr IVPB Q12HR KRISTY Rx#:[id number] Intake, IV Titration 335.669 193.080 100 Amount Labetalol 100 mg In 257.5 Sodium Chloride 0.9% 80 ml @ 0.5 MG/MIN 30 mls/hr IV .Q3H20M KRISTY Rx#: [id number] Propofol 1,000 mg In 100 5.919 193.080 100 ml @ Titrate IV .Q0M KRISTY Rx#:[id number] Propofol 1,000 mg In 100 72.25 ml @ Titrate IV .Q0M STA Rx#:[id number] Other 80 Output: Urine 54 0 250 Stool 20 20 20 Oral Regurgitation 400 Other: Voiding Method Diaper Diaper - Exam Constitutional: AOx1, on ventilator HEENT: NC/AT, no facial asymmetry is seen. Throat: Supple, no masses Respiratory: No increased work of breathing Cardiac: Regular rate and Rhythm GI: non tender, non distended Musculoskeletal: C++ Professor strengths are equal bilaterally 0/5, Lower extremity strengths are equal bilaterally at 0/5. Neurological: patient did not respond to verbal commands consistently. Patient is only arousable by name with the response of intermittent fluttering of his eyelids. Patient did withdraw to pain intermittently in the bilateral lower extremities. Integementary: no rash, no erythema Psychiatric: - Labs CBC & Chem 7: 07/22/17 04:36 07/22/17 04:36 Labs: Abnormal Lab Results - Last 24 Hours (Table) 07/22/17 07/22/17 07/22/17 Range/Units 04:27 04:36 04:36 RBC 3.31 L (4.30-5.90) m/uL Hgb 11.1 L (13.0-17.5) gm/dL Hct 33.5 L (39.0-53.0) % MCV 101.4 H (80.0-100.0) fL RDW 16.4 H (11.5-15.5) % Plt Count 81 L (150-450) k/uL Lymphocytes # 0.7 L (1.0-4.8) k/uL ABG pCO2 33 L (35-45) mmHg ABG pO2 69 L (83-108) mmHg ABG HCO3 20 L (21-25) mmol/L Sodium 136 L (137-145) mmol/L Potassium 5.3 H (3.5-5.1) mmol/L Carbon Dioxide 21 L (22-30) mmol/L BUN 43 H (9-20) mg/dL Creatinine 9.78 H* (0.66-1.25) mg/dL Calcium 8.1 L (8.4-10.2) mg/dL Phosphorus 7.5 H (2.5-4.5) mg/dL AST 16 L (17-59) U/L Total Protein 5.3 L (6.3-8.2) g/dL Albumin 3.1 L (3.5-5.0) g/dL Assessment and Plan (1) CVA (cerebral vascular accident) Status: Acute (2) Status epilepticus Status: Acute (3) Chronic renal failure Status: Acute (4) Encephalopathy Status: Acute (5) Hypertensive urgency Status: Acute Plan: 0800 hrs 1. CVA: Based on imaging, does. The patient does appear to have an evolving thalamic infarct. At this time full effect of the infarct is unable to be assessed completely as the patient is intubated and on a ventilator. Sedation holiday performed for full neurological assessment. Patient is stable at this time and in no acute distress. Repeat CT of the brain will be ordered. MRI brain is ordered but not taken as the patient is on a ventilator. 2. Toxic metabolic encephalopathy: Patient is a dialysis patient and is largely noncompliant with dialysis. Patient was observed to be fluid overloaded at presentation in the ED as well as notations regarding missing dialysis appointments or leaving early. Defer to primary team and nephrology for further management of patient's chronic kidney disease. Continue to correct underlying etiology and disorder. 3. Status epilepticus: Patient is on Keppra on a routine basis. Patient is intermittently compliant with medication regimen. While inpatient patient is currently on Keppra 750 mg every 12 hours. Continue Keppra, patient has not had new seizure-like activity in the ICU. Continue rectal asprin, neurological checks as ordered. Continue seizure precautions as ordered. EEG is taken and not read. Status: Neurology will continue to follow provide updates as needed or warranted Feel free to contact our office for any questions I discussed the patient's pertinent medical information with Dr. Perez. He agrees with the plan of care as implemented.
[2017-07-23] MEDS: FUROSEMIDE 10 MG/ML 10 ML VIAL IV SCH ×4 (00:46→23:47)
[2017-07-23] MEDS: HEPARIN SODIUM,PORCINE 5,000 UNIT/ML 1 ML VIAL SQ SCH ×4 (00:47→23:47)
[2017-07-23] MEDS: PROPOFOL 1,000 MG/100 ML VIAL IV SCH ×2 (03:00→06:59)
[2017-07-23 05:49] LABS: ABG PH 7.43 (7.35-7.45)
[2017-07-23 05:50] LABS: ABG Base Excess -0.2 mmol/L; ABG HCO3 24 mmol/L (21-25); ABG PCO2 36 mmHg (35-45); ABG PO2 88 mmHg (83-108); ABG TCO2 25 mmol/L (19-24)
[2017-07-23] MEDS: SODIUM CHLORIDE 0.9% 1,000 ML IV SCH (06:58)
[2017-07-23 07:22] LABS: Anisocytosis Slight; Basophils % (A) 1 %; CH 33.7; CHCM 33.7; Eosinophils # (A) 0.1 k/uL (0-0.7); Eosinophils % (A) 2 %; HCT 33.6 % (39.0-53.0); HDW 3.12; HGB 10.9 gm/dL (13.0-17.5); Luc # (Auto) 0.07; Luc % (Auto) 1; Lymphocytes # (A) 0.5 k/uL (1.0-4.8); Lymphocytes % (A) 9 %; MCH 32.5 pg (25.0-35.0); MCHC 32.3 g/dL (31.0-37.0); MCV 100.6 fL (80.0-100.0); Macrocytosis Slight; Mean Platelet Volume 8.1; Monocytes # (A) 0.3 k/uL (0-1.0); Monocytes % (A) 5 %; Neutrophils # (A) 4.5 k/uL (1.3-7.7); Neutrophils % (A) 82 %; RBC 3.35 m/uL (4.30-5.90); RDW 17.1 % (11.5-15.5); WBC 5.5 k/uL (3.8-10.6); WBC (Perox) 6.12
[2017-07-23 07:39] LABS: Calcium 8.1 mg/dL (8.4-10.2); Magnesium 1.9 mg/dL (1.6-2.3); Phosphorous 7.3 mg/dL (2.5-4.5); Potassium 5.3 mmol/L (3.5-5.1)
[2017-07-23] MEDS: levETIRAcetam IV 750 MG in SODIUM CHLORIDE 0.9% 100 ML IVPB SCH ×2 (08:13→21:13)
--- NOTE | 2017-07-23 08:23 | XR ---
EXAMINATION TYPE: XR chest 1V portable DATE OF EXAM: 07/23/2017 COMPARISON: 07/22/2017 INDICATION: Difficulty breathing, intubated TECHNIQUE: Single frontal view of the chest is obtained. FINDINGS: The heart size is normal. The pulmonary vasculature is normal. Mild infiltrates in the right lower lobe. Some silhouetting left diaphragm is present. Basilar infilt rates are improving from comparison. Patient's endotracheal tube remains in position from prior study. Nasogastric tube has its tip locate d in the distal esophageal region has advanced slightly from the prior study. This could be advanced 9 cm. IMPRESSION: 1. Bibasilar infiltrates present improving from prior study. 2. Nasogastric tube tip is in the distal esophagus could be advanced least 9 cm.
[2017-07-23 08:44] LABS: Glucose,Whole Blood 80 mg/dL (75-99)
[2017-07-23] MEDS: ASPIRIN 300 MG SUPP RECTAL SCH (08:44)
[2017-07-23] MEDS: SODIUM BICARBONATE TAB 650 MG TAB PO SCH ×2 (08:46→21:18)
[2017-07-23] MEDS: CHLORHEXIDINE GLUCONATE 15 ML CUP MUCOUS MEM SCH (08:46)
[2017-07-23] MEDS: FAMOTIDINE 20 MG/2 ML VIAL IV SCH (08:46)
[2017-07-23] MEDS: LISINOPRIL 20 MG TAB PO SCH ×3 (08:46→21:12)
[2017-07-23] MEDS: cloNIDine HCL 0.1 MG TAB PO SCH ×5 (08:46→21:12)
[2017-07-23 09:31] LABS: Cholesterol 168 mg/dL (<200); HDL Cholesterol 36 mg/dL (40-60)
[2017-07-23] MEDS: PIPERACILLIN-TAZOBACTAM 3.375 GM in DEXTROSE/WATER 1 50ML.BAG IVPB SCH ×2 (10:46→22:06)
--- NOTE | 2017-07-23 11:30 | P.PN ---
Subjective Principal diagnosis: Acute respiratory failure secondary to status epilepticus This is a 47-year-old male patient with known history of a incisional disease maintained on hemodialysis 3 times a week Saturday and Saturday. The patient has a long history of noncompliance to hemodialysis. His been dialysis for the past 8 years at least. He is currently receiving his diet to [facility]. He apparently missed the last 2 sessions of dialysis. He also has history of seizure for which he was started on Prednisone point however he has not been taking the medication a regular basis. Apparently, the patient was having generalized seizures at home. The patient was having back-to -back seizures each one lasting around 3 minutes. The EMS found this patient post ictal. Following that the patient was brought in to the burst department and he was unresponsive and he was unable to answer any questions. He is neurologic exam was nonfocal. He was found to be in fluid overload and significant respiratory distress. Based on that the patient was intubated and placed on a mechanical ventilator. He was started on Keppra. Post intubation he was started on Diprivan which is currently running at 20 mics. He was also started the Versed drip at 1 mg an hour. He was started on hemodialysis this morning in the emergency department and the diagnosis got completed around 3 PM this afternoon. A total of 3 L of fluid was ultrafiltrate as. At this point in time, the patient intubated on a mechanical ventilator. He is an assist- control mode at the rate of 18, tidal volume of 600, FiO2 was around down to 60 % and he isn't a PEEP of 5. Post intubation blood gases was done on the percent FiO2 showed a pH of 7.35 with a pCO2 of 37 and pO2 of 174. Peak airway pressures around 22. Chest x-ray showed evidence of pulmonate edema and ET tube was high in the trachea which was repositioned. The patient was also noted to have significantly elevated blood pressure. He was started on labetalol drip for blood pressure control. All these treatments were done in the burst department. After completing his hemodialysis, the patient got moved to the intensive care unit. Note that since his arrival to the hospital, no fluid seizure activities of been noted. Patient is currently receiving Keppra 750 mg IV every 12 hours. Labetalol drip is still running for blood pressure control. He is quite sedated. The CAT scan of the brain showed new hypoattenuation in the left thalamus and mild expansion and this raises the suspicion for a infarction. Other possibilities would also consider there is toxic metabolic process/infectious process. His previous echocardiogram from June 2017 showed a moderate concentric left ventricular hypertrophy with an ejection fraction of 55-60% without any significant valvular abnormalities. Noted the patient was in the hospital in June 2017 for left-sided numbness and weakness. MRI of the spine at was done at that time showed multilevel degenerative disc disease/spinal stenosis with some suggestion of myelomalacia. On 07/22/2017 the patient is being seen in follow-up in the intensive care unit. The patient is still intubated on a mechanical ventilator. A sedation holiday was given to him today. He woke up nicely. He was following some simple commands. He was squeezing with his upper extremities bilaterally in the motor function was felt to be equal and symmetrical. There was some noted weakness on the left lower extremity. No obvious Babinski. Note that his CAT scan of the chest showed a questionable thalamic stroke however the patient is known to have some chronic left-sided weakness related to cervical spine degenerative disc disease and spinal stenosis. Is not clear to me whether this is a new onset weakness or not. No seizure activity has been noted. The patient is currently on IV Keppra. He got dialyzed yesterday. A second session of dialysis will be done today. The patient be started also on IV Lasix knowing that he produces urine and he was placed on 80 mg IV push every 8 hours. The patient is an assist-control mode with a tidal volume of 600, FiO2 of 60% and a PEEP of 5. The morning blood gases showed a pH of 7.4 with a pCO2 of 33 and pO2 of 69 on a 60% FiO2. Chest x-ray still showing pulmonary asked her congestion and moderate-sized bilateral pleural effusion. For that reason, I decided to give this patient another day of mechanical ventilation to stabilize his condition further prior to considering any weaning. No fever. No chills. No other significant events over the past 24 hours. He is being seen by nephrology. Neurology consultation was also requested. On 07/23/2017, patient remains in the intensive care unit, on mechanical ventilation, seems to be appropriate, and in no form of respiratory distress. Propofol drip was discontinued, and the patient was given weaning parameters while I am at bedside. Patient seemed to do quite well, hence he was switched to a pressure support of 8 and CPAP for about 20 minutes. I reviewed his chest x-ray reviewed all his labs, discussed his condition with his at bedside, and the patient seems to be seizure free since he has been in the ICU. CBC was noted to be relatively normal. Electrolytes were noted to be normal. Renal profile showed a BUN of 26 creatinine of 7.14, patient underwent dialysis yesterday. Chest x-ray is showing bibasilar infiltrates, improving from previous study and a nasogastric tube was noted to be in the distal esophagus but this was discontinued with extubating the patient. Again while I'm at bedside, and I was monitoring the patient on pressure support and CPAP, his respiratory rate was in the high teens, tidal volume was in the 500 range, patient was extubated uneventfully. Objective - Vital Signs Vital signs: Vital Signs Temp 98.7 F 07/23/17 08:00 Pulse 68 07/23/17 10:00 Resp 17 07/23/17 10:00 BP 174/96 07/23/17 10:00 Pulse Ox 99 07/23/17 10:00 Intake & Output 07/22/17 07/23/17 07/23/17 18:59 06:59 18:59 Intake Total 520 588.808 222.694 Output Total 270 0 Balance 250 588.808 222.694 Weight 58 kg 58 kg Intake: IV 420 377.5 180 Piperacillin-Tazobactam 3 50 37.5 .375 gm In Dextrose/Water 1 50ml.bag @ 12.5 mls/hr IVPB Q12H KRISTY Rx#: [id number] Sodium Chloride 0.9% 1, 270 240 80 000 ml @ 20 mls/hr IV . Q24H KRISTY Rx#:[id number] levETIRAcetam IV 750 mg 100 100 100 In Sodium Chloride 0.9% 100 ml @ 400 mls/hr IVPB Q12HR KRISTY Rx#:[id number] Intake, IV Titration 100 181.308 42.694 Amount Propofol 1,000 mg In 100 100 181.308 42.694 ml @ Titrate IV .Q0M KRISTY Rx#:[id number] Other 30 Output: Urine 250 0 Stool 20 Other: Voiding Method Diaper Diaper Diaper # Voids 0 0 - Exam Patient is intubated on a mechanical ventilator.Head exam was generally normal. There was no scleral icterus or corneal arcus. Mucous membranes were moist. Neck is supple and there is no JVDs no goiter or neck masses. The patient has orogastric and tracheal tube are both in place.Neck was supple and without jugular venous distension, thyromegaly, or carotid bruits. Carotids were easily palpable bilaterally. There was no adenopathy. Lung sounds are diminished bilaterally especially in lung bases. No wheezes or rhonchi or any crackles.Cardiac exam revealed the PMI to be normally situated and sized. The rhythm was regular and no extrasystoles were noted during several minutes of auscultation. The first and second heart sounds were normal and physiologic splitting of the second heart sound was noted. There were no murmurs, rubs, clicks, or gallops.Abdominal exam revealed normal bowel sounds. The abdomen was soft, non-tender, and without masses, organomegaly, or appreciable enlargement of the abdominal aorta.Examination of the extremities revealed easily palpable radial, femoral and pedal pulses. There was no cyanosis, clubbing or edema. Neurologically the patient is sedated. - Labs CBC & Chem 7: 07/23/17 06:56 07/23/17 06:56 Labs: Abnormal Lab Results - Last 24 Hours (Table) 07/23/17 07/23/17 07/23/17 Range/Units 05:28 06:56 06:56 RBC 3.35 L (4.30-5.90) m/uL Hgb 10.9 L (13.0-17.5) gm/dL Hct 33.6 L (39.0-53.0) % MCV 100.6 H (80.0-100.0) fL RDW 17.1 H (11.5-15.5) % Plt Count 80 L (150-450) k/uL Lymphocytes # 0.5 L (1.0-4.8) k/uL ABG Total CO2 25 H (19-24) mmol/L Sodium 136 L (137-145) mmol/L Potassium 5.3 H (3.5-5.1) mmol/L BUN 26 H (9-20) mg/dL Creatinine 7.14 H* (0.66-1.25) mg/dL Glucose 72 L (74-99) mg/dL Calcium 8.1 L (8.4-10.2) mg/dL Phosphorus 7.3 H (2.5-4.5) mg/dL Triglycerides (<150) mg/dL HDL Cholesterol (40-60) mg/dL 07/23/17 Range/Units 08:49 RBC (4.30-5.90) m/uL Hgb (13.0-17.5) gm/dL Hct (39.0-53.0) % MCV (80.0-100.0) fL RDW (11.5-15.5) % Plt Count (150-450) k/uL Lymphocytes # (1.0-4.8) k/uL ABG Total CO2 (19-24) mmol/L Sodium (137-145) mmol/L Potassium (3.5-5.1) mmol/L BUN (9-20) mg/dL Creatinine (0.66-1.25) mg/dL Glucose (74-99) mg/dL Calcium (8.4-10.2) mg/dL Phosphorus (2.5-4.5) mg/dL Triglycerides 198 H (<150) mg/dL HDL Cholesterol 36 L (40-60) mg/dL Microbiology - Last 24 Hours (Table) 07/23/17 01:00 Sputum Culture - Preliminary Sputum Assessment and Plan Plan: 1 acute status epilepticus. Currently on Keppra. Propofol was discontinued No seizure-like activities noticed here in the intensive care unit. Note that no seizure activity has been noted over the past 24 hours. The patient was given a sedation holiday this morning and there is some probable motor weakness in the left lower extremity and this can be acute versus chronic. In any rate, the patient woke up very nicely from sedation and he was able to follow some simple commands. 2 acute hypoxic respiratory failure secondary to fluid overload. Possible underlying infiltrates noted and chest x-ray today.\ 3 acute thalamic stroke is suspected based on the Computed tomography scan of the brain, these clinical correlation 4 End-stage renal disease on hemodialysis 3 times a week, with poor compliance 5 hypertension, poorly controlled and currently the patient is off labetalol and the blood pressures well controlled. 6 chronic back pain with multilevel degenerative disc disease and stenosis 7 acute lactic acidosis, recovered 8 chronic nephrolithiasis leading into end-stage renal disease Recommendation: While I'm at bedside, patient was weaned and extubated uneventfully, we'll continue treatment plan including addressing his fluid overload, seizure issue, and renal failure issue. Patient will remain on Zosyn for now for presumptive aspiration pneumonia, and we'll keep him in the ICU. Patient remains critically ill. Critical care time is 35 minutes. Time with Patient: Greater than 30
[2017-07-23] MEDS: NICOTINE 14MG/24HR PATCH TRANSDERM SCH (11:45)
[2017-07-23] MEDS: amLODIPine 5 MG TAB PO SCH (12:39)
[2017-07-23] MEDS: LORazepam 2 MG/ML SYRINGE IV PRN ×2 (14:04→16:52)
--- NOTE | 2017-07-23 14:55 | P.PN ---
Subjective This is a 47-year-old male patient of Dr. Jaylen juares with past medical history of end-stage renal disease on hemodialysis 3 times weekly, hypertension, seizure disorder. Patient had a recent hospitalization July 06 for TIA and was seen in consultation by Dr. Viveros. There was concern for cervical spondylosis and recommended MRI of the cervical spine and orthopedic consult. Carotid duplex showed no stenosis. Echocardiogram revealed EF of 55- 60%, no pulmonary hypertension, moderate concentric left hypertrophy, trace mitral regurgitation, trace tricuspid regurgitation. Patient was discharged home on new medication of clonidine. Patient now presents to [facility] emergency center by EMS with seizure activity. Upon arrival, patient was post ictal. Initial blood pressure was 250/148. Patient received 2 doses of hydralazine 20 mg IV push and clonidine patch followed by nitroglycerin drip. Blood pressure was improved but remain elevated and nitroglycerin drip was discontinued and patient started on labetalol drip. CAT scan of the brain showed a new hypoattenuation in the left thalamus with mild expansion. Differential include evolving infarction, toxic metabolic process, infectious process. Punctate dermal hyperdensity in the right premaxillary region. Correlate for foreign body. Dehiscence of the left lamina papyracea. Chest x-ray showed bibasilar and bilateral hilar infiltrates. While in the emergency room patient had a second seizure, generalized tonic-clonic seizure and given Ativan as well as Keppra 1 g IV. Patient did miss 2 hemodialysis treatments and this was initiated in the emergency center. He was given a rectal aspirin and consult placed with Dr. Perez. Patient did have a third seizure around 6:30 AM and he was intubated at that time. Patient is seen in the emergency room, waiting for her ICU bed. Dr. Doss, Dr. Perez, Dr. Rod are on consult. Outpatient cervical spine MRI ordered by Dr. Benjamin showed multilevel degenerative disc disease, spinal stenosis with digestion of myelomalacia. Multilevel foraminal encroachment. Tortuous vertebral artery on the left is in close proximity to the left C2 nerve root 07/22: Dr. Rod is recommending repeat dialysis today. Dr. Doss is following as well as Dr. Perez. EEG was ordered. Labetalol drip was discontinued by Dr. Doss and and placed him on clevidipine drip, lisinopril and clonidine. He remains intubated and on mechanical ventilation. He has large amount of secretions for which Zosyn has been added. No plan for weaning today. 07/23: Repeat CAT scan of the brain shows nonspecific periventricular white matter ischemic changes likely chronic. There may be some maturation of a lacunar infarct of the medial left thalamus which is somewhat less wide comparison study. This may be normal maturation. Repeat chest x-ray shows bibasilar infiltrates present improving from prior study. Patient has been successfully extubated this morning. He is continued on Lasix 80 mg every 12 hours IV. Nephrology to determine next hemodialysis treatment. He does not have one scheduled for today. Current blood pressure medication, patient will be resumed on the clonidine at 4 times daily and Norvasc daily. The patient remains hemodynamically stable, patient will be transferred to [facility] care. Objective - Vital Signs Vital signs: Vital Signs Temp 98.7 F 07/23/17 08:00 Pulse 71 07/23/17 09:00 Resp 18 07/23/17 09:00 BP 154/92 07/23/17 09:00 Pulse Ox 99 07/23/17 09:00 Intake & Output 07/22/17 07/23/17 07/23/17 18:59 06:59 18:59 Intake Total 520 588.808 193.101 Output Total 270 0 Balance 250 588.808 193.101 Weight 58 kg Intake: IV 420 377.5 160 Piperacillin-Tazobactam 3 50 37.5 .375 gm In Dextrose/Water 1 50ml.bag @ 12.5 mls/hr IVPB Q12H [facility] Rx#: [id number] Sodium Chloride 0.9% 1, 270 240 60 000 ml @ 20 mls/hr IV . Q24H [facility] Rx#:[id number] levETIRAcetam IV 750 mg 100 100 100 In Sodium Chloride 0.9% 100 ml @ 400 mls/hr IVPB Q12HR [facility] Rx#:[id number] Intake, IV Titration 100 181.308 33.101 Amount Propofol 1,000 mg In 100 100 181.308 33.101 ml @ Titrate IV .Q0M [facility] Rx#:[id number] Other 30 Output: Urine 250 0 Stool 20 Other: Voiding Method Diaper Diaper Diaper # Voids 0 0 - Exam General appearance: average body habitus, no acute distress - EENT Eyes: PERRLA, no scleral icterus, normal appearance ENT: no thrush - Neck Neck: no lymphadenopathy, no thyromegaly Carotids: bilateral: bruit absent - Respiratory Respiratory: bilateral: CTA, diminished - Cardiovascular Heart sounds: normal: S1, S2 Abnormal Heart Sounds: systolic murmur - Gastrointestinal General gastrointestinal: no absent bowel sounds, no distended, no hepatomegaly , no hyperactive bowel sounds, normal bowel sounds, no organomegaly, no rigid, no scaphoid, soft, no splenomegaly, no tenderness, no umbilical hernia, no ventral hernia - Integumentary Integumentary: no cellulitis, no cyanotic, no jaundiced, normal - Musculoskeletal Musculoskeletal: no gait normal - Psychiatric Psychiatric: A&O x's 3, no appropriate affect, intact judgment & insight - Labs CBC & Chem 7: 07/23/17 06:56 07/23/17 06:56 Labs: Abnormal Lab Results - Last 24 Hours (Table) 07/23/17 07/23/17 07/23/17 Range/Units 05:28 06:56 06:56 RBC 3.35 L (4.30-5.90) m/uL Hgb 10.9 L (13.0-17.5) gm/dL Hct 33.6 L (39.0-53.0) % MCV 100.6 H (80.0-100.0) fL RDW 17.1 H (11.5-15.5) % Plt Count 80 L (150-450) k/uL Lymphocytes # 0.5 L (1.0-4.8) k/uL ABG Total CO2 25 H (19-24) mmol/L Sodium 136 L (137-145) mmol/L Potassium 5.3 H (3.5-5.1) mmol/L BUN 26 H (9-20) mg/dL Creatinine 7.14 H* (0.66-1.25) mg/dL Glucose 72 L (74-99) mg/dL Calcium 8.1 L (8.4-10.2) mg/dL Phosphorus 7.3 H (2.5-4.5) mg/dL Assessment and Plan Plan: 1. Evolving left thalamus stroke. Aspirin 300 mg rectally daily, neurology consult, carotid ultrasound and echocardiogram from previous visit. Continue neuro checks. 2. Accelerated hypertension. Patient will be placed on labetalol drip, change to the video pain drip, lisinopril and clonidine. Patient has received 3 doses of labetalol in the emergency center, clonidine patch and nitroglycerin drip. 3. Acute hypoxic respiratory failure secondary to rule out overload from missed dialysis treatments, seizure activity and thalamus stroke with toxic encephalopathy. Dr. Doss is on consult. A shunt has been successfully extubated. 4. Status epilepticus with history of seizures. Patient was given Keppra 1 g IV piggyback 1 and continued on 750 mg every 12 hours. Ativan as needed for active seizures. Neurology consult. Patient was previously on Keppra 500 mg every 12 hours. 5. End-stage renal disease and lactic acidosis on hemodialysis presenting with fluid overload secondary to noncompliance and missing 2 dialysis treatments. Patient is currently undergoing dialysis in the emergency center. Dr. Rod is on consult. 6. Chronic cervical pain. Patient underwent outpatient MRI as noted above. Patient has been on Tylenol No. 3 and baclofen as well as undergoing pain management injections with Dr. Perez. 7. Tobacco use and dependence and recently discharged on nicotine patch. 8. Chronic thrombocytopenia. Monitor. 9. DVT prophylaxis. KP hose and SCDs. 10. GI prophylaxis. Pepcid IV 11. CODE STATUS: Full code. Discharge plan: Return home Impression and plan of care have been directed as dictated by the signing physician. Doretha Brumfield nurse practitioner acting as scribe for signing physician.
[2017-07-23] MEDS: LABETALOL 100 MG in SODIUM CHLORIDE 0.9% 80 ML IV SCH ×3 (15:01→22:04)
[2017-07-23] MEDS: METHOCARBAMOL 750 MG TAB PO SCH ×2 (16:30→21:12)
--- NOTE | 2017-07-23 16:32 | P.PN ---
Subjective Principal diagnosis: Seizure, stroke This is a 47-year-old male continuing to be evaluated by the neurology service for seizure disorder and an acute thalamic stroke. He had a recent admission for TIA. His carotid Doppler showed no signs of hemodynamically stenosis at that time. After he was released soon after he presented to the emergency department with active seizures. There was a reported postictal state. His presenting blood pressure in the ER was 250/148. Initial CT of the brain showed hypoattenuation of the left thalamus. Repeat CT did show an evolving area of hypoattenuation. He did come off of the ventilator, but today was quite combative and a little confused. At the time my evaluation he is just been given Ativan and is quite sedated. He was some question as to some possible left-sided weakness. His daughter is at bedside and indicates that from time to time he will have some left sided regarding from an old injury to his left leg. He was initially given Keppra 1 g IV, and continues on oral Keppra at 750 mg every 12 hours. There is been no reported seizure activity last 24 hours. Objective - Vital Signs Vital signs: Vital Signs Temp 98.1 F 07/23/17 16:00 Pulse 76 07/23/17 16:00 Resp 12 07/23/17 16:00 BP 140/82 07/23/17 16:00 Pulse Ox 94 L 07/23/17 16:00 Intake & Output 07/22/17 07/23/17 07/23/17 18:59 06:59 18:59 Intake Total 520 588.808 342.694 Output Total 270 0 Balance 250 588.808 342.694 Weight 58 kg 58 kg Intake: IV 420 377.5 300 Piperacillin-Tazobactam 3 50 37.5 .375 gm In Dextrose/Water 1 50ml.bag @ 12.5 mls/hr IVPB Q12H [facility] Rx#: [id number] Sodium Chloride 0.9% 1, 270 240 200 000 ml @ 20 mls/hr IV . Q24H [facility] Rx#:[id number] levETIRAcetam IV 750 mg 100 100 100 In Sodium Chloride 0.9% 100 ml @ 400 mls/hr IVPB Q12HR [facility] Rx#:[id number] Intake, IV Titration 100 181.308 42.694 Amount Propofol 1,000 mg In 100 100 181.308 42.694 ml @ Titrate IV .Q0M [facility] Rx#:[id number] Other 30 Output: Urine 250 0 Stool 20 Other: Voiding Method Diaper Diaper Diaper # Voids 0 1 - Constitutional General appearance: Present: average body habitus, no acute distress - EENT Eyes: Present: EOMI, PERRLA. Absent: abnormal pupil, ptosis - Neck Neck: Present: normal ROM. Absent: rigidity - Respiratory Respiratory: negative: prolonged expiration, prolonged inspiration - Cardiovascular Rhythm: regular - Gastrointestinal General gastrointestinal: Absent: distended, tenderness - Neurologic Neurologic Comment(s): The patient is resting comfortably in his ICU bed. He is quite sedated from his recent dose of Ativan. He is not very easily awoken. He is spontaneously moving bilateral upper and lower extremities and there is no significant lateralizing weakness seen. There is no facial asymmetry. No tremors or seizure-like activities are seen. He responds to light touch in his arousable. - Labs CBC & Chem 7: 07/23/17 06:56 07/23/17 06:56 Labs: Abnormal Lab Results - Last 24 Hours (Table) 07/23/17 07/23/17 07/23/17 Range/Units 05:28 06:56 06:56 RBC 3.35 L (4.30-5.90) m/uL Hgb 10.9 L (13.0-17.5) gm/dL Hct 33.6 L (39.0-53.0) % MCV 100.6 H (80.0-100.0) fL RDW 17.1 H (11.5-15.5) % Plt Count 80 L (150-450) k/uL Lymphocytes # 0.5 L (1.0-4.8) k/uL ABG Total CO2 25 H (19-24) mmol/L Sodium 136 L (137-145) mmol/L Potassium 5.3 H (3.5-5.1) mmol/L BUN 26 H (9-20) mg/dL Creatinine 7.14 H* (0.66-1.25) mg/dL Glucose 72 L (74-99) mg/dL Calcium 8.1 L (8.4-10.2) mg/dL Phosphorus 7.3 H (2.5-4.5) mg/dL Triglycerides (<150) mg/dL HDL Cholesterol (40-60) mg/dL 07/23/17 Range/Units 08:49 RBC (4.30-5.90) m/uL Hgb (13.0-17.5) gm/dL Hct (39.0-53.0) % MCV (80.0-100.0) fL RDW (11.5-15.5) % Plt Count (150-450) k/uL Lymphocytes # (1.0-4.8) k/uL ABG Total CO2 (19-24) mmol/L Sodium (137-145) mmol/L Potassium (3.5-5.1) mmol/L BUN (9-20) mg/dL Creatinine (0.66-1.25) mg/dL Glucose (74-99) mg/dL Calcium (8.4-10.2) mg/dL Phosphorus (2.5-4.5) mg/dL Triglycerides 198 H (<150) mg/dL HDL Cholesterol 36 L (40-60) mg/dL Microbiology - Last 24 Hours (Table) 07/23/17 01:00 Gram Stain - Preliminary Sputum Sputum Culture - Preliminary Assessment and Plan (1) Myelomalacia of cervical cord Status: Suspected (2) CVA (cerebral vascular accident) Status: Acute (3) Generalized seizure Status: Acute (4) Status epilepticus Status: Chronic (5) Chronic renal failure Status: Chronic (6) Encephalopathy Status: Suspected (7) Hypertensive urgency Status: Resolved Plan: The patient has suffered a left sided thalamic stroke. For now we'll continue rectal aspirin which can be switched to 325 mg oral if needed. The nursing staff does report that he has been awakened has been able to swallow pills with some water. An EEG has been performed and an MRI of the brain has been ordered and not yet performed. Om 07/14 there was an MRI of the cervical spine showing some C3-C4 and C4-C5 disc pathology with corresponding myelomalacia of the spinal cord. Once we're able to do more focused physical exam we will determine if neurosurgical consultation is needed in the hospital setting or can wait for an outpatient appointment. We should start working with physical and occupational therapies as soon as possible. We will continue to follow and make recommendations. Continue neurological checks. Continue Keppra at current dose. I have performed a history and physical on the above patient. I have reviewed the above note, and agree.
--- NOTE | 2017-07-23 22:13 | PN ---
PROGRESS NOTE Patient is seen for followup for end-stage liver disease. He was admitted to the hospital with seizures. He did have a thalamic infarct and he was on the ventilator. The patient was extubatedjust this morning. He is doing fairly well. He is able to recognize me. Blood pressure was at 146/81, heart rate 79 per minute. Patient is afebrile HEART: S1, S2. LUNGS: Decreased breath sounds at bases. ABDOMEN: Soft, nontender. Lower extremities show no evidence of edema. SKIN: Grossly intact. Patient is moving all 4 extremities. Labs show sodium 136, potassium 5.3. Hemoglobin 10.9 g/dL. ASSESSMENT: 1. End-stage renal disease, with history of noncompliance, status post dialysis 2 days in a row. The patient is normally on a Saturday, Saturday schedule and we will arrange for hemodialysis in the a.m. 2. Mild hypokalemia. Expect improvement with dialysis tomorrow. 3. Seizure disorder. 4. Vent-dependent respiratory failure, status post extubation this morning. 5. Volume overload, currently improved. 6. Acute thalamic infarct based on CT. Currently patient seems to be following commands. He is oriented x3. We will continue to monitor, as he was just extubated this morning. PLAN: Hemodialysis in a.m. If urine output is not significant, we can discontinue the IV Lasix. We will plan for about 4 L again tomorrow with hemodialysis. LETY / NATHANN: [id number] /
[2017-07-24] MEDS: LORazepam 2 MG/ML SYRINGE IV PRN ×5 (02:08→23:22)
[2017-07-24 04:31] LABS: Anisocytosis Slight; Basophils % (A) 1 %; CH 33.7; CHCM 33.5; Eosinophils # (A) 0.1 k/uL (0-0.7); Eosinophils % (A) 3 %; HCT 33.2 % (39.0-53.0); HDW 3.06; HGB 10.6 gm/dL (13.0-17.5); Luc % (Auto) 2; Lymphocytes # (A) 0.4 k/uL (1.0-4.8); Lymphocytes % (A) 10 %; MCH 32.2 pg (25.0-35.0); MCHC 31.9 g/dL (31.0-37.0); Macrocytosis Slight; Monocytes # (A) 0.2 k/uL (0-1.0); Monocytes % (A) 4 %; Neutrophils # (A) 3.5 k/uL (1.3-7.7); Neutrophils % (A) 80 %; RBC 3.28 m/uL (4.30-5.90); RDW 16.7 % (11.5-15.5); WBC 4.4 k/uL (3.8-10.6); WBC (Perox) 4.71
[2017-07-24 04:52] LABS: Calcium 7.8 mg/dL (8.4-10.2); Magnesium 1.9 mg/dL (1.6-2.3); Potassium 5.2 mmol/L (3.5-5.1)
[2017-07-24 05:18] LABS: Phosphorous 9.5 mg/dL (2.5-4.5)
[2017-07-24] MEDS: LABETALOL 100 MG in SODIUM CHLORIDE 0.9% 80 ML IV SCH ×12 (05:36→20:23)
[2017-07-24] MEDS: amLODIPine 5 MG TAB PO SCH ×2 (06:22→20:28)
--- NOTE | 2017-07-24 07:32 | EEG ---
ELECTROENCEPHALOGRAM REPORT DATE OF SERVICE: 07/22/2017 REASON FOR TESTING: Seizure. CURRENT ANTIEPILEPTIC MEDICATIONS: Keppra. DESCRIPTION OF THE PROCEDURE: This EEG was performed using a 21 channel digital electroencephalograph, following international 10 - 20 system. DESCRIPTION OF THE RECORDING: From the beginning of the tracing, and with patient's eyes closed, the background rhythm was mostly consisting of 5 - 6 hertz theta frequency in the posterior occipital leads. No obvious asymmetry is seen. Occasional lead artifacts and frequent movement artifacts are seen. Photic stimulation was performed with no driving response seen. No pathological waves were elicited. Hyperventilation was not performed. The patient remains awake throughout the tracing. No obvious epileptiform discharges were seen. His EKG lead showed a regular rate and rhythm. INTERPRETATION: This awake EEG is limited due to the frequency of movement artifacts, but the background rhythm was mostly consisting of theta frequency, which is consistent with moderate encephalopathy. No obvious epileptiform discharges were seen. The absence of epileptiform discharges does not rule out the diagnosis of epilepsy, therefore clinical correlation is recommended. MMNICKOLAS / IJN: [id number] /
[2017-07-24] MEDS: HEPARIN SODIUM,PORCINE 5,000 UNIT/ML 1 ML VIAL SQ SCH ×2 (08:43→16:31)
[2017-07-24] MEDS: SODIUM BICARBONATE TAB 650 MG TAB PO SCH ×2 (08:43→20:29)
[2017-07-24] MEDS: levETIRAcetam IV 750 MG in SODIUM CHLORIDE 0.9% 100 ML IVPB SCH (08:43)
[2017-07-24] MEDS: METHOCARBAMOL 750 MG TAB PO SCH ×3 (08:44→21:36)
[2017-07-24] MEDS: FAMOTIDINE 20 MG/2 ML VIAL IV SCH (08:44)
[2017-07-24] MEDS: NICOTINE 14MG/24HR PATCH TRANSDERM SCH (08:44)
[2017-07-24] MEDS: LISINOPRIL 20 MG TAB PO SCH ×2 (08:44→20:29)
[2017-07-24] MEDS: cloNIDine HCL 0.1 MG TAB PO SCH ×2 (08:44→20:29)
--- NOTE | 2017-07-24 08:55 | XR ---
EXAMINATION TYPE: XR chest 1V portable DATE OF EXAM: 07/24/2017 COMPARISON: Prior chest x-ray 07/23/2017 HISTORY: Abnormal chest x-ray, tube placement TECHNIQUE: Single frontal view of the chest is obtained. FINDINGS: There is been interval removal of the endotracheal tube and NG tube. Some improvement in a eration is suspected. Patient is rotated. Cardiac mediastinal silhouette, pulmonary vascularity and h bindu not significantly changed. Interstitium is increased. IMPRESSION: Interval extubation. Improvement in aeration. Additional follow-up is recommended.
[2017-07-24] MEDS: QUEtiapine 25 MG TAB PO SCH (09:20)
[2017-07-24] MEDS: PIPERACILLIN-TAZOBACTAM 3.375 GM in DEXTROSE/WATER 1 50ML.BAG IVPB SCH ×2 (11:00→22:56)
--- NOTE | 2017-07-24 11:48 | P.PN ---
Subjective Principal diagnosis: Acute respiratory failure secondary to status epilepticus This is a 47-year-old male patient with known history of a incisional disease maintained on hemodialysis 3 times a week Saturday and Saturday. The patient has a long history of noncompliance to hemodialysis. His been dialysis for the past 8 years at least. He is currently receiving his diet to [facility]. He apparently missed the last 2 sessions of dialysis. He also has history of seizure for which he was started on Prednisone point however he has not been taking the medication a regular basis. Apparently, the patient was having generalized seizures at home. The patient was having back-to -back seizures each one lasting around 3 minutes. The EMS found this patient post ictal. Following that the patient was brought in to the burst department and he was unresponsive and he was unable to answer any questions. He is neurologic exam was nonfocal. He was found to be in fluid overload and significant respiratory distress. Based on that the patient was intubated and placed on a mechanical ventilator. He was started on Keppra. Post intubation he was started on Diprivan which is currently running at 20 mics. He was also started the Versed drip at 1 mg an hour. He was started on hemodialysis this morning in the emergency department and the diagnosis got completed around 3 PM this afternoon. A total of 3 L of fluid was ultrafiltrate as. At this point in time, the patient intubated on a mechanical ventilator. He is an assist- control mode at the rate of 18, tidal volume of 600, FiO2 was around down to 60 % and he isn't a PEEP of 5. Post intubation blood gases was done on the percent FiO2 showed a pH of 7.35 with a pCO2 of 37 and pO2 of 174. Peak airway pressures around 22. Chest x-ray showed evidence of pulmonate edema and ET tube was high in the trachea which was repositioned. The patient was also noted to have significantly elevated blood pressure. He was started on labetalol drip for blood pressure control. All these treatments were done in the burst department. After completing his hemodialysis, the patient got moved to the intensive care unit. Note that since his arrival to the hospital, no fluid seizure activities of been noted. Patient is currently receiving Keppra 750 mg IV every 12 hours. Labetalol drip is still running for blood pressure control. He is quite sedated. The CAT scan of the brain showed new hypoattenuation in the left thalamus and mild expansion and this raises the suspicion for a infarction. Other possibilities would also consider there is toxic metabolic process/infectious process. His previous echocardiogram from June 2017 showed a moderate concentric left ventricular hypertrophy with an ejection fraction of 55-60% without any significant valvular abnormalities. Noted the patient was in the hospital in June 2017 for left-sided numbness and weakness. MRI of the spine at was done at that time showed multilevel degenerative disc disease/spinal stenosis with some suggestion of myelomalacia. On 07/22/2017 the patient is being seen in follow-up in the intensive care unit. The patient is still intubated on a mechanical ventilator. A sedation holiday was given to him today. He woke up nicely. He was following some simple commands. He was squeezing with his upper extremities bilaterally in the motor function was felt to be equal and symmetrical. There was some noted weakness on the left lower extremity. No obvious Babinski. Note that his CAT scan of the chest showed a questionable thalamic stroke however the patient is known to have some chronic left-sided weakness related to cervical spine degenerative disc disease and spinal stenosis. Is not clear to me whether this is a new onset weakness or not. No seizure activity has been noted. The patient is currently on IV Keppra. He got dialyzed yesterday. A second session of dialysis will be done today. The patient be started also on IV Lasix knowing that he produces urine and he was placed on 80 mg IV push every 8 hours. The patient is an assist-control mode with a tidal volume of 600, FiO2 of 60% and a PEEP of 5. The morning blood gases showed a pH of 7.4 with a pCO2 of 33 and pO2 of 69 on a 60% FiO2. Chest x-ray still showing pulmonary asked her congestion and moderate-sized bilateral pleural effusion. For that reason, I decided to give this patient another day of mechanical ventilation to stabilize his condition further prior to considering any weaning. No fever. No chills. No other significant events over the past 24 hours. He is being seen by nephrology. Neurology consultation was also requested. On 07/23/2017, patient remains in the intensive care unit, on mechanical ventilation, seems to be appropriate, and in no form of respiratory distress. Propofol drip was discontinued, and the patient was given weaning parameters while I am at bedside. Patient seemed to do quite well, hence he was switched to a pressure support of 8 and CPAP for about 20 minutes. I reviewed his chest x-ray reviewed all his labs, discussed his condition with his at bedside, and the patient seems to be seizure free since he has been in the ICU. CBC was noted to be relatively normal. Electrolytes were noted to be normal. Renal profile showed a BUN of 26 creatinine of 7.14, patient underwent dialysis yesterday. Chest x-ray is showing bibasilar infiltrates, improving from previous study and a nasogastric tube was noted to be in the distal esophagus but this was discontinued with extubating the patient. Again while I'm at bedside, and I was monitoring the patient on pressure support and CPAP, his respiratory rate was in the high teens, tidal volume was in the 500 range, patient was extubated uneventfully. Reevaluated on 07/24/2017, patient remains in the intensive care unit, tolerated the extubation well over the last 24 hours. However the patient had episodes yesterday of extreme agitation, responded well to Ativan. His blood pressure remains intermittently quite high almost in the 200 range systolic, hence I had to restart him back on labetalol drip yesterday. However today I recommended readjusting his oral meds including the clonidine which was changed to 0.2 mg by mouth twice a day, Norvasc was increased to 5 mg twice a day. Lisinopril remained at 20 mg twice a day. I also added Seroquel, 25 mg daily, hoping the patient will relax and experienced less agitation. Ativan remains on board. May even consider adding hydralazine if needed. This morning however, the patient seems to be calm, in no distress, systolic blood pressures about 170, patient is on labetalol drip at 50 mg per hour. Objective - Vital Signs Vital signs: Vital Signs Temp 97.2 F L 07/24/17 09:00 Pulse 80 07/24/17 10:30 Resp 10 L 07/24/17 10:30 BP 166/91 07/24/17 10:30 Pulse Ox 93 L 07/24/17 10:00 Intake & Output 07/23/17 07/24/17 07/24/17 18:59 06:59 18:59 Intake Total 394.694 705.5 187.5 Output Total 0 0 20 Balance 394.694 705.5 167.5 Weight 58 kg 57.3 kg 57.3 kg Intake: IV 340 617.5 130 Piperacillin-Tazobactam 3 37.5 50 .375 gm In Dextrose/Water 1 50ml.bag @ 12.5 mls/hr IVPB Q12H [facility] Rx#: [id number] Sodium Chloride 0.9% 1, 240 180 80 000 ml @ 20 mls/hr IV . Q24H [facility] Rx#:[id number] levETIRAcetam IV 750 mg 100 400 In Sodium Chloride 0.9% 100 ml @ 400 mls/hr IVPB Q12HR [facility] Rx#:[id number] Intake, IV Titration 54.694 88 57.5 Amount Labetalol 100 mg In 12 88 Sodium Chloride 0.9% 80 ml @ 2 MG/MIN 120 mls/hr IV .Q50M [facility] Rx#: [id number] Labetalol 100 mg In 57.5 Sodium Chloride 0.9% 80 ml @ 2 MG/MIN 120 mls/hr IV .Q50M [facility] Rx#: [id number] Propofol 1,000 mg In 100 42.694 ml @ Titrate IV .Q0M [facility] Rx#:[id number] Output: Urine 0 0 0 Stool 20 Other: Voiding Method Diaper Urinal Urinal Diaper # Voids 1 1 # Bowel Movements 1 - Exam Physical Exam: Revealed a 47-year-old white male in no distress. HEENT:[Neck is supple.] [No neck masses.] [No thyromegaly.] [No JVD.] Chest: [Clear throughout, no crackles, no rhonchi, no wheezes.] Cardiac Exam: [Normal S1 and S2, no S3 gallop, no murmur.] Abdomen: [Soft, nontender, no megaly, no rebound, no guarding, normal bowel sounds.] Extremities: [No clubbing, no edema, no cyanosis.] Neurological Exam: [No focal neurologic deficit.] - Labs CBC & Chem 7: 07/24/17 04:18 07/24/17 04:18 Labs: Abnormal Lab Results - Last 24 Hours (Table) 07/23/17 07/24/17 07/24/17 Range/Units 08:49 04:18 04:18 RBC 3.28 L (4.30-5.90) m/uL Hgb 10.6 L (13.0-17.5) gm/dL Hct 33.2 L (39.0-53.0) % MCV 101.0 H (80.0-100.0) fL RDW 16.7 H (11.5-15.5) % Plt Count 93 L (150-450) k/uL Lymphocytes # 0.4 L (1.0-4.8) k/uL Potassium 5.2 H (3.5-5.1) mmol/L Carbon Dioxide 21 L (22-30) mmol/L BUN 38 H (9-20) mg/dL Creatinine 9.18 H* (0.66-1.25) mg/dL Calcium 7.8 L (8.4-10.2) mg/dL Phosphorus 9.5 H* (2.5-4.5) mg/dL Homocysteine 17.66 H (4.00-14.00) umol/L Microbiology - Last 24 Hours (Table) 07/23/17 01:00 Gram Stain - Preliminary Sputum Sputum Culture - Final Moraxella(branhamella) catarra Assessment and Plan Plan: 1 acute status epilepticus. Currently on Keppra. Patient was extubated yesterday uneventfully and he remains off mechanical ventilation. 2 acute hypoxic respiratory failure secondary to fluid overload. Possible underlying infiltrates noted and chest x-ray today. This required intubation and mechanical ventilation, but for the last 24 hours, the patient has been off mechanical ventilation, and tolerated the extubation well. 3 acute thalamic stroke is suspected based on the Computed tomography scan of the brain, these clinical correlation 4 End-stage renal disease on hemodialysis 3 times a week, with poor compliance 5 hypertension, poorly controlled and currently the patient is off labetalol and the blood pressures well controlled. 6 chronic back pain with multilevel degenerative disc disease and stenosis 7 acute lactic acidosis, recovered 8 chronic nephrolithiasis leading into end-stage renal disease Recommendation: Continue present supportive care measures, patient will remain in the ICU, continue to monitor for any seizure activities, address the blood pressure accordingly as noted above in my note, his medications will be readjusted, and we'll continue to follow. Not quite ready for transfer out of the ICU at this point. At this point the patient is on labetalol drip, but I would likely discontinue labetalol over the next 12 hours. Time with Patient: Less than 30
[2017-07-24] MEDS ORDERED: amLODIPine 5 MG TAB PO STA (13:04)
--- NOTE | 2017-07-24 14:19 | P.PN ---
Subjective This is a 47-year-old male patient of Dr. Jaylen juares with past medical history of end-stage renal disease on hemodialysis 3 times weekly, hypertension, seizure disorder. Patient had a recent hospitalization July 06 for TIA and was seen in consultation by Dr. Viveros. There was concern for cervical spondylosis and recommended MRI of the cervical spine and orthopedic consult. Carotid duplex showed no stenosis. Echocardiogram revealed EF of 55- 60%, no pulmonary hypertension, moderate concentric left hypertrophy, trace mitral regurgitation, trace tricuspid regurgitation. Patient was discharged home on new medication of clonidine. Patient now presents to [facility] emergency center by EMS with seizure activity. Upon arrival, patient was post ictal. Initial blood pressure was 250/148. Patient received 2 doses of hydralazine 20 mg IV push and clonidine patch followed by nitroglycerin drip. Blood pressure was improved but remain elevated and nitroglycerin drip was discontinued and patient started on labetalol drip. CAT scan of the brain showed a new hypoattenuation in the left thalamus with mild expansion. Differential include evolving infarction, toxic metabolic process, infectious process. Punctate dermal hyperdensity in the right premaxillary region. Correlate for foreign body. Dehiscence of the left lamina papyracea. Chest x-ray showed bibasilar and bilateral hilar infiltrates. While in the emergency room patient had a second seizure, generalized tonic-clonic seizure and given Ativan as well as Keppra 1 g IV. Patient did miss 2 hemodialysis treatments and this was initiated in the emergency center. He was given a rectal aspirin and consult placed with Dr. Perez. Patient did have a third seizure around 6:30 AM and he was intubated at that time. Patient is seen in the emergency room, waiting for her ICU bed. Dr. Doss, Dr. Perez, Dr. Rod are on consult. Outpatient cervical spine MRI ordered by Dr. Benjamin showed multilevel degenerative disc disease, spinal stenosis with digestion of myelomalacia. Multilevel foraminal encroachment. Tortuous vertebral artery on the left is in close proximity to the left C2 nerve root 07/22: Dr. Rod is recommending repeat dialysis today. Dr. Doss is following as well as Dr. Perez. EEG was ordered. Labetalol drip was discontinued by Dr. Doss and and placed him on clevidipine drip, lisinopril and clonidine. He remains intubated and on mechanical ventilation. He has large amount of secretions for which Zosyn has been added. No plan for weaning today. 07/23: Repeat CAT scan of the brain shows nonspecific periventricular white matter ischemic changes likely chronic. There may be some maturation of a lacunar infarct of the medial left thalamus which is somewhat less wide comparison study. This may be normal maturation. Repeat chest x-ray shows bibasilar infiltrates present improving from prior study. Patient has been successfully extubated this morning. He is continued on Lasix 80 mg every 12 hours IV. Nephrology to determine next hemodialysis treatment. He does not have one scheduled for today. Current blood pressure medication, patient will be resumed on the clonidine at 4 times daily and Norvasc daily. The patient remains hemodynamically stable, patient will be transferred to carrier clinic care. 07/24: Homocysteine level was 17.66. Cholesterol 168, triglycerides 198, LDL 92, HDL 36. Today potassium is 5.2 with BUN of 38 and creatinine 9.18. Patient is scheduled for hemodialysis today with removal of 4 L. Keppra will be changed to oral at 750 mg twice daily. Repeat chest x-ray shows interval extubation. Improvement in aeration. No seizure activity since admission. Patient did not sleep during the night and is now very drowsy. Melatonin added at nighttime. Patient has more confusion today from yesterday. He is currently undergoing hemodialysis. Objective - Vital Signs Vital signs: Vital Signs Temp 97.2 F L 07/24/17 09:00 Pulse 86 07/24/17 09:00 Resp 12 07/24/17 09:00 BP 160/89 07/24/17 09:00 Pulse Ox 93 L 07/24/17 09:00 Intake & Output 07/23/17 07/24/17 07/24/17 18:59 06:59 18:59 Intake Total 394.694 705.5 167.5 Output Total 0 0 20 Balance 394.694 705.5 147.5 Weight 58 kg 57.3 kg 57.3 kg Intake: IV 340 617.5 110 Piperacillin-Tazobactam 3 37.5 50 .375 gm In Dextrose/Water 1 50ml.bag @ 12.5 mls/hr IVPB Q12H [facility] Rx#: [id number] Sodium Chloride 0.9% 1, 240 180 60 000 ml @ 20 mls/hr IV . Q24H [facility] Rx#:[id number] levETIRAcetam IV 750 mg 100 400 In Sodium Chloride 0.9% 100 ml @ 400 mls/hr IVPB Q12HR [facility] Rx#:[id number] Intake, IV Titration 54.694 88 57.5 Amount Labetalol 100 mg In 12 88 Sodium Chloride 0.9% 80 ml @ 2 MG/MIN 120 mls/hr IV .Q50M [facility] Rx#: [id number] Labetalol 100 mg In 57.5 Sodium Chloride 0.9% 80 ml @ 2 MG/MIN 120 mls/hr IV .Q50M [facility] Rx#: [id number] Propofol 1,000 mg In 100 42.694 ml @ Titrate IV .Q0M [facility] Rx#:[id number] Output: Urine 0 0 0 Stool 20 Other: Voiding Method Diaper Urinal Urinal Diaper # Voids 1 1 # Bowel Movements 1 - Exam General appearance: average body habitus, no acute distress - EENT Eyes: PERRLA, no scleral icterus, normal appearance ENT: no thrush - Neck Neck: no lymphadenopathy, no thyromegaly Carotids: bilateral: bruit absent - Respiratory Respiratory: bilateral: CTA, diminished - Cardiovascular Heart sounds: normal: S1, S2 Abnormal Heart Sounds: systolic murmur - Gastrointestinal General gastrointestinal: no absent bowel sounds, no distended, no hepatomegaly , no hyperactive bowel sounds, normal bowel sounds, no organomegaly, no rigid, no scaphoid, soft, no splenomegaly, no tenderness, no umbilical hernia, no ventral hernia - Integumentary Integumentary: no cellulitis, no cyanotic, no jaundiced, normal - Musculoskeletal Musculoskeletal: no gait normal - Psychiatric Psychiatric: A&O x's1, no appropriate affect, no intact judgment & insight - Labs CBC & Chem 7: 07/24/17 04:18 07/24/17 04:18 Labs: Abnormal Lab Results - Last 24 Hours (Table) 07/23/17 07/24/17 07/24/17 Range/Units 08:49 04:18 04:18 RBC 3.28 L (4.30-5.90) m/uL Hgb 10.6 L (13.0-17.5) gm/dL Hct 33.2 L (39.0-53.0) % MCV 101.0 H (80.0-100.0) fL RDW 16.7 H (11.5-15.5) % Plt Count 93 L (150-450) k/uL Lymphocytes # 0.4 L (1.0-4.8) k/uL Potassium 5.2 H (3.5-5.1) mmol/L Carbon Dioxide 21 L (22-30) mmol/L BUN 38 H (9-20) mg/dL Creatinine 9.18 H* (0.66-1.25) mg/dL Calcium 7.8 L (8.4-10.2) mg/dL Phosphorus 9.5 H* (2.5-4.5) mg/dL Homocysteine 17.66 H (4.00-14.00) umol/L Microbiology - Last 24 Hours (Table) 07/23/17 01:00 Gram Stain - Preliminary Sputum Sputum Culture - Preliminary Assessment and Plan Plan: 1. Evolving left thalamus stroke. Aspirin 300 mg rectally daily, neurology consult, carotid ultrasound and echocardiogram from previous visit. Continue neuro checks. 2. Accelerated hypertension. Patient will be placed on labetalol drip, change to the video pain drip, lisinopril and clonidine. Patient has received 3 doses of labetalol in the emergency center, clonidine patch and nitroglycerin drip. 3. Acute hypoxic respiratory failure secondary to rule out overload from missed dialysis treatments, seizure activity and thalamus stroke with toxic encephalopathy. Dr. Doss is on consult. A shunt has been successfully extubated. 4. Status epilepticus with history of seizures. Keppra changed to oral 750 mg every 12 hours. Ativan as needed for active seizures. Neurology consult. Patient was previously on Keppra 500 mg every 12 hours. 5. End-stage renal disease and lactic acidosis on hemodialysis presenting with fluid overload secondary to noncompliance and missing 2 dialysis treatments. Patient is currently undergoing dialysis in the emergency center. Dr. Rod is on consult. 6. Chronic cervical pain. Patient underwent outpatient MRI as noted above. Patient has been on Tylenol No. 3 and baclofen as well as undergoing pain management injections with Dr. Perez. 7. Tobacco use and dependence and recently discharged on nicotine patch. 8. Chronic thrombocytopenia. Monitor. 9. DVT prophylaxis. KP feliciano and SCDs. 10. GI prophylaxis. Pepcid IV 11. CODE STATUS: Full code. Discharge plan: Return home Impression and plan of care have been directed as dictated by the signing physician. Doretha Brumfield nurse practitioner acting as scribe for signing physician.
[2017-07-24] MEDS ORDERED: GELATIN SPONGE,ABSORB (SMALL) 1 EACH SPONGE ONE (15:00)
[2017-07-24] MEDS ORDERED: LABETALOL 200 MG in SODIUM CHLORIDE 0.9% 160 ML IV SCH (15:00)
--- NOTE | 2017-07-24 15:07 | P.PN ---
Subjective Principal diagnosis: Seizure, stroke This is a 47-year-old male continuing to be evaluated by the neurology service for seizure disorder and an acute thalamic stroke. He had a recent admission for TIA. His carotid Doppler showed no signs of hemodynamically significant stenosis at that time. He was released soon after he presented to the emergency department with active seizures. There was a reported postictal state. His presenting blood pressure in the ER was 250/148. Initial CT of the brain showed hypoattenuation of the left thalamus. Repeat CT did show an evolving area of hypoattenuation. He did come off of the ventilator, but yesterday was quite combative and a little confused. At the time my evaluation he is undergoing dialysis and was just given Ativan. He is a little sedated. There was some question as to some possible left-sided weakness , which I do not see today. His daughter and indicated that from time to time he will have some left sided gardening from an old injury to his left leg. He was initially given Keppra 1 g IV, and continues on oral Keppra at 750 mg every 12 hours. There has been no reported seizure activity last 48 hours. He is scheduled for an MRI of the brain. Objective - Vital Signs Vital signs: Vital Signs Temp 98.4 F 07/24/17 12:30 Pulse 76 07/24/17 14:00 Resp 12 07/24/17 14:00 BP 199/110 07/24/17 14:00 Pulse Ox 98 07/24/17 14:00 Intake & Output 07/23/17 07/24/17 07/24/17 18:59 06:59 18:59 Intake Total 394.694 705.5 409.0 Output Total 0 0 60 Balance 394.694 705.5 349.0 Weight 58 kg 57.3 kg 57.3 kg Intake: IV 340 617.5 210 Piperacillin-Tazobactam 3 37.5 50 .375 gm In Dextrose/Water 1 50ml.bag @ 12.5 mls/hr IVPB Q12H [facility] Rx#: [id number] Sodium Chloride 0.9% 1, 240 180 160 000 ml @ 20 mls/hr IV . Q24H [facility] Rx#:[id number] levETIRAcetam IV 750 mg 100 400 In Sodium Chloride 0.9% 100 ml @ 400 mls/hr IVPB Q12HR [facility] Rx#:[id number] Intake, IV Titration 54.694 88 199.0 Amount Labetalol 100 mg In 12 88 Sodium Chloride 0.9% 80 ml @ 2 MG/MIN 120 mls/hr IV .Q50M [facility] Rx#: [id number] Labetalol 100 mg In 199.0 Sodium Chloride 0.9% 80 ml @ 2 MG/MIN 120 mls/hr IV .Q50M [facility] Rx#: [id number] Propofol 1,000 mg In 100 42.694 ml @ Titrate IV .Q0M [facility] Rx#:[id number] Output: Urine 0 0 0 Stool 60 Other: Voiding Method Diaper Urinal Urinal Diaper # Voids 1 1 # Bowel Movements 1 - Constitutional General appearance: Present: average body habitus, no acute distress - EENT EENT Comment(s): He does not cooperate well with extraocular movement testing. However, there may be some slow tracking of the right eye. Eyes: Present: PERRLA. Absent: abnormal pupil, ptosis ENT: Present: hearing grossly normal - Neck Neck: Present: normal ROM. Absent: rigidity - Respiratory Respiratory: negative: prolonged expiration, prolonged inspiration - Cardiovascular Rhythm: regular - Gastrointestinal General gastrointestinal: Absent: distended, tenderness - Neurologic Neurologic Comment(s): The patient was sleeping at the time of my exam but is easily awoken. He is oriented to person and partially to place. Speech and language are normal. There is no facial asymmetry. There is no lateralizing weakness. There is no appreciable sensory deficit. Dialysis Nurse strength is full bilaterally. Strength is full in bilateral lower extremities. No tremors or seizure activity are seen. - Labs CBC & Chem 7: 07/24/17 04:18 07/24/17 04:18 Labs: Abnormal Lab Results - Last 24 Hours (Table) 07/23/17 07/24/17 07/24/17 Range/Units 08:49 04:18 04:18 RBC 3.28 L (4.30-5.90) m/uL Hgb 10.6 L (13.0-17.5) gm/dL Hct 33.2 L (39.0-53.0) % MCV 101.0 H (80.0-100.0) fL RDW 16.7 H (11.5-15.5) % Plt Count 93 L (150-450) k/uL Lymphocytes # 0.4 L (1.0-4.8) k/uL Potassium 5.2 H (3.5-5.1) mmol/L Carbon Dioxide 21 L (22-30) mmol/L BUN 38 H (9-20) mg/dL Creatinine 9.18 H* (0.66-1.25) mg/dL Calcium 7.8 L (8.4-10.2) mg/dL Phosphorus 9.5 H* (2.5-4.5) mg/dL Homocysteine 17.66 H (4.00-14.00) umol/L Microbiology - Last 24 Hours (Table) 07/23/17 01:00 Gram Stain - Preliminary Sputum Sputum Culture - Final Moraxella(branhamella) catarra Assessment and Plan (1) 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 For now we'll continue aspirin 325 mg oral. An EEG was performed on 07/21 and and showed moderate encephalopathy with no epileptiform waves. There was a lot of movement artifact and we will consider repeating this if his mental status does not improve. An MRI of the brain has been ordered and not yet performed. On 07/14 there was an MRI of the cervical spine showing some C3-C4 and C4-C5 disc pathology with corresponding myelomalacia of the spinal cord. So far we see no evidence that neurosurgical consultation is needed in the hospital setting. We will continue to follow and do more focus physical exams to see if this can wait for an outpatient appointment. We should start working with physical and occupational therapies as soon as possible. We will continue to follow and make recommendations. Continue neurological checks. Continue Keppra at current dose. I have performed a history and physical on the above patient. I have reviewed the above note, and agree.
--- NOTE | 2017-07-24 15:23 | PN ---
PROGRESS NOTE DATE OF SERVICE: 07/24/2017 Patient is seen for followup for end-stage renal disease. He currently has a sitter next to him as he has been confused. Patient's blood pressure has been running high. He is currently maintained on a labetalol drip. MEDICATIONS: His other blood pressure medications include Norvasc at 5 b.i.d. and clonidine 0.2 mg b.i.d. He is also on Zestril 20 mg b.i.d. Patient has been refusing other the blood pressure medications previously as outpatient. PHYSICAL EXAMINATION: Today, blood pressure 166/91, heart rate 80 per minute. He is afebrile. Examination of the heart S1, S2. Examination of the lungs, bilateral breath sounds are heard. Abdomen is soft, nontender. Examination of the lower extremities shows no evidence of edema. [employer] exam is grossly intact. LABS: Sodium 139, potassium 5.2, hemoglobin 10.6 g/dL. ASSESSMENT: 1. End-stage renal disease, on hemodialysis on a Saturday, Saturday, Saturday schedule. Patient is scheduled for hemodialysis today. 2. Fluid overload, currently improved. 3. Uncontrolled hypertension with thalamic infarct on this admission. Currently maintained on labetalol drip. I will add hydralazine and try to wean down the drip. We can switch the labetalol to Coreg once his blood pressure is further improved and try to continue to wean down the labetalol. 4. Hyperphosphatemia associated with chronic kidney disease and bone mineral disorder, add Renvela with meals. PLAN: Add Renvela, add hydralazine and try to wean down labetalol and he will dialyze the patient today with increase UF as tolerated. MMODL / IJN: [id number] /
[2017-07-24] MEDS: SEVELAMER 800 MG TAB PO SCH (16:34)
[2017-07-24] MEDS: hydrALAZINE HCL 20 MG/ML 1 ML VIAL IVP PRN (16:41)
[2017-07-24] MEDS: LABETALOL 200 MG in SODIUM CHLORIDE 0.9% 160 ML IV SCH ×3 (17:23→21:12)
[2017-07-24] MEDS: SODIUM CHLORIDE 0.9% 1,000 ML IV SCH (18:34)
[2017-07-24] MEDS: MELATONIN 5 MG TABLET PO SCH (20:29)
[2017-07-24] MEDS: hydrALAZINE HCL 50 MG TAB PO SCH (20:29)
[2017-07-24] MEDS ORDERED: cloNIDine HCL 0.2 MG TAB PO SCH (21:00)
[2017-07-25] MEDS: hydrALAZINE HCL 20 MG/ML 1 ML VIAL IVP PRN (00:12)
[2017-07-25] MEDS: HEPARIN SODIUM,PORCINE 5,000 UNIT/ML 1 ML VIAL SQ SCH ×4 (00:13→22:56)
[2017-07-25] MEDS ORDERED: hydrALAZINE HCL 20 MG/ML 1 ML VIAL IVP PRN (00:47)
[2017-07-25] MEDS: LABETALOL 200 MG in SODIUM CHLORIDE 0.9% 160 ML IV SCH ×5 (02:22→15:06)
[2017-07-25] MEDS: ACETAMINOPHEN TAB 325 MG TAB PO PRN (04:43)
[2017-07-25] MEDS: LORazepam 2 MG/ML SYRINGE IV PRN ×2 (04:44→15:26)
[2017-07-25] MEDS: SODIUM CHLORIDE 0.9% 1,000 ML IV SCH (04:47)
[2017-07-25 05:05] LABS: Anisocytosis Slight; Basophils % (A) 1 %; CH 32.5; CHCM 32.9; Eosinophils # (A) 0.1 k/uL (0-0.7); Eosinophils % (A) 3 %; HCT 34.6 % (39.0-53.0); HDW 3.13; HGB 11.6 gm/dL (13.0-17.5); Luc # (Auto) 0.18; Luc % (Auto) 4; Lymphocytes # (A) 0.5 k/uL (1.0-4.8); Lymphocytes % (A) 11 %; MCH 33.2 pg (25.0-35.0); MCHC 33.5 g/dL (31.0-37.0); MCV 99.2 fL (80.0-100.0); Macrocytosis Slight; Mean Platelet Volume 7.1; Monocytes # (A) 0.3 k/uL (0-1.0); Monocytes % (A) 7 %; Neutrophils # (A) 3.3 k/uL (1.3-7.7); Neutrophils % (A) 74 %; RBC 3.49 m/uL (4.30-5.90); WBC 4.4 k/uL (3.8-10.6); WBC (Perox) 4.93
[2017-07-25 05:19] LABS: Calcium 8.4 mg/dL (8.4-10.2); Magnesium 1.8 mg/dL (1.6-2.3); Phosphorous 6.3 mg/dL (2.5-4.5); Potassium 4.5 mmol/L (3.5-5.1)
[2017-07-25] MEDS: SEVELAMER 800 MG TAB PO SCH ×3 (07:32→17:26)
[2017-07-25] MEDS: NICOTINE 14MG/24HR PATCH TRANSDERM SCH (08:01)
[2017-07-25] MEDS: amLODIPine 5 MG TAB PO SCH ×2 (08:02→20:48)
[2017-07-25] MEDS: cloNIDine HCL 0.1 MG TAB PO SCH ×2 (08:02→20:48)
[2017-07-25] MEDS: QUEtiapine 25 MG TAB PO SCH (08:03)
[2017-07-25] MEDS: METHOCARBAMOL 750 MG TAB PO SCH ×3 (08:03→20:48)
[2017-07-25] MEDS: LISINOPRIL 20 MG TAB PO SCH ×2 (08:03→20:48)
[2017-07-25] MEDS: SODIUM BICARBONATE TAB 650 MG TAB PO SCH ×2 (08:03→20:48)
[2017-07-25] MEDS: hydrALAZINE HCL 50 MG TAB PO SCH ×2 (08:03→20:48)
[2017-07-25] MEDS: FAMOTIDINE 20 MG/2 ML VIAL IV SCH (08:48)
--- NOTE | 2017-07-25 11:10 | P.PN ---
Subjective Principal diagnosis: Acute respiratory failure secondary to status epilepticus This is a 47-year-old male patient with known history of a incisional disease maintained on hemodialysis 3 times a week Saturday and Saturday. The patient has a long history of noncompliance to hemodialysis. His been dialysis for the past 8 years at least. He is currently receiving his diet to [facility]. He apparently missed the last 2 sessions of dialysis. He also has history of seizure for which he was started on Prednisone point however he has not been taking the medication a regular basis. Apparently, the patient was having generalized seizures at home. The patient was having back-to -back seizures each one lasting around 3 minutes. The EMS found this patient post ictal. Following that the patient was brought in to the burst department and he was unresponsive and he was unable to answer any questions. He is neurologic exam was nonfocal. He was found to be in fluid overload and significant respiratory distress. Based on that the patient was intubated and placed on a mechanical ventilator. He was started on Keppra. Post intubation he was started on Diprivan which is currently running at 20 mics. He was also started the Versed drip at 1 mg an hour. He was started on hemodialysis this morning in the emergency department and the diagnosis got completed around 3 PM this afternoon. A total of 3 L of fluid was ultrafiltrate as. At this point in time, the patient intubated on a mechanical ventilator. He is an assist- control mode at the rate of 18, tidal volume of 600, FiO2 was around down to 60 % and he isn't a PEEP of 5. Post intubation blood gases was done on the percent FiO2 showed a pH of 7.35 with a pCO2 of 37 and pO2 of 174. Peak airway pressures around 22. Chest x-ray showed evidence of pulmonate edema and ET tube was high in the trachea which was repositioned. The patient was also noted to have significantly elevated blood pressure. He was started on labetalol drip for blood pressure control. All these treatments were done in the burst department. After completing his hemodialysis, the patient got moved to the intensive care unit. Note that since his arrival to the hospital, no fluid seizure activities of been noted. Patient is currently receiving Keppra 750 mg IV every 12 hours. Labetalol drip is still running for blood pressure control. He is quite sedated. The CAT scan of the brain showed new hypoattenuation in the left thalamus and mild expansion and this raises the suspicion for a infarction. Other possibilities would also consider there is toxic metabolic process/infectious process. His previous echocardiogram from June 2017 showed a moderate concentric left ventricular hypertrophy with an ejection fraction of 55-60% without any significant valvular abnormalities. Noted the patient was in the hospital in June 2017 for left-sided numbness and weakness. MRI of the spine at was done at that time showed multilevel degenerative disc disease/spinal stenosis with some suggestion of myelomalacia. On 07/22/2017 the patient is being seen in follow-up in the intensive care unit. The patient is still intubated on a mechanical ventilator. A sedation holiday was given to him today. He woke up nicely. He was following some simple commands. He was squeezing with his upper extremities bilaterally in the motor function was felt to be equal and symmetrical. There was some noted weakness on the left lower extremity. No obvious Babinski. Note that his CAT scan of the chest showed a questionable thalamic stroke however the patient is known to have some chronic left-sided weakness related to cervical spine degenerative disc disease and spinal stenosis. Is not clear to me whether this is a new onset weakness or not. No seizure activity has been noted. The patient is currently on IV Keppra. He got dialyzed yesterday. A second session of dialysis will be done today. The patient be started also on IV Lasix knowing that he produces urine and he was placed on 80 mg IV push every 8 hours. The patient is an assist-control mode with a tidal volume of 600, FiO2 of 60% and a PEEP of 5. The morning blood gases showed a pH of 7.4 with a pCO2 of 33 and pO2 of 69 on a 60% FiO2. Chest x-ray still showing pulmonary asked her congestion and moderate-sized bilateral pleural effusion. For that reason, I decided to give this patient another day of mechanical ventilation to stabilize his condition further prior to considering any weaning. No fever. No chills. No other significant events over the past 24 hours. He is being seen by nephrology. Neurology consultation was also requested. On 07/23/2017, patient remains in the intensive care unit, on mechanical ventilation, seems to be appropriate, and in no form of respiratory distress. Propofol drip was discontinued, and the patient was given weaning parameters while I am at bedside. Patient seemed to do quite well, hence he was switched to a pressure support of 8 and CPAP for about 20 minutes. I reviewed his chest x-ray reviewed all his labs, discussed his condition with his at bedside, and the patient seems to be seizure free since he has been in the ICU. CBC was noted to be relatively normal. Electrolytes were noted to be normal. Renal profile showed a BUN of 26 creatinine of 7.14, patient underwent dialysis yesterday. Chest x-ray is showing bibasilar infiltrates, improving from previous study and a nasogastric tube was noted to be in the distal esophagus but this was discontinued with extubating the patient. Again while I'm at bedside, and I was monitoring the patient on pressure support and CPAP, his respiratory rate was in the high teens, tidal volume was in the 500 range, patient was extubated uneventfully. Reevaluated on 07/24/2017, patient remains in the intensive care unit, tolerated the extubation well over the last 24 hours. However the patient had episodes yesterday of extreme agitation, responded well to Ativan. His blood pressure remains intermittently quite high almost in the 200 range systolic, hence I had to restart him back on labetalol drip yesterday. However today I recommended readjusting his oral meds including the clonidine which was changed to 0.2 mg by mouth twice a day, Norvasc was increased to 5 mg twice a day. Lisinopril remained at 20 mg twice a day. I also added Seroquel, 25 mg daily, hoping the patient will relax and experienced less agitation. Ativan remains on board. May even consider adding hydralazine if needed. This morning however, the patient seems to be calm, in no distress, systolic blood pressures about 170, patient is on labetalol drip at 50 mg per hour. Reevaluated today on 07/25/2017, patient remains in intensive care unit, no pulmonary issues whatsoever, however his blood pressure has been fluctuating all over the place. Patient is now on multiple blood pressure meds including Norvasc 5 mg twice a day, clonidine, hydralazine, lisinopril, and he was placed on a maintenance dose of Seroquel to help his agitation. Today the blood pressure seems to be excellent, it is 108 systolic. Patient feels tired, but no specific complaints. CBC is relatively normal. Electrodes are normal. BUN is 23 creatinine 6.95. Patient was dialyzed yesterday. Objective - Vital Signs Vital signs: Vital Signs Temp 99.0 F 07/25/17 07:30 Pulse 75 07/25/17 10:00 Resp 14 07/25/17 10:00 BP 116/72 07/25/17 10:00 Pulse Ox 95 07/25/17 10:00 Intake & Output 07/24/17 07/25/17 07/25/17 18:59 06:59 18:59 Intake Total 869.0 1030 80 Output Total 100 100 225 Balance 769.0 930 -145 Weight 57.3 kg 61.3 kg Intake: IV 310 630 80 Labetalol 100 mg In 360 Sodium Chloride 0.9% 80 ml @ 2 MG/MIN 120 mls/hr IV .Q50M [facility] Rx#: [id number] Piperacillin-Tazobactam 3 70 50 .375 gm In Dextrose/Water 1 50ml.bag @ 12.5 mls/hr IVPB Q12H [facility] Rx#: [id number] Sodium Chloride 0.9% 1, 240 220 80 000 ml @ 20 mls/hr IV . Q24H [facility] Rx#:[id number] Intake, IV Titration 199.0 400 Amount Labetalol 100 mg In 199.0 Sodium Chloride 0.9% 80 ml @ 2 MG/MIN 120 mls/hr IV .Q50M [facility] Rx#: [id number] Labetalol 200 mg In 400 Sodium Chloride 0.9% 160 ml @ 60 mls/hr IV .Q3H20M [facility] Rx#:[id number] Oral 360 Output: Urine 0 100 225 Stool 100 Other: Voiding Method Urinal Urinal Urinal # Voids 1 0 0 # Bowel Movements 1 - Exam Physical Exam: Revealed a 47-year-old white male in no distress. HEENT:[Neck is supple.] [No neck masses.] [No thyromegaly.] [No JVD.] Chest: [Clear throughout, no crackles, no rhonchi, no wheezes.] Cardiac Exam: [Normal S1 and S2, no S3 gallop, no murmur.] Abdomen: [Soft, nontender, no megaly, no rebound, no guarding, normal bowel sounds.] Extremities: [No clubbing, no edema, no cyanosis.] Neurological Exam: [No focal neurologic deficit.] - Labs CBC & Chem 7: 07/25/17 04:13 07/25/17 04:13 Labs: Abnormal Lab Results - Last 24 Hours (Table) 07/25/17 07/25/17 Range/Units 04:13 04:13 RBC 3.49 L (4.30-5.90) m/uL Hgb 11.6 L (13.0-17.5) gm/dL Hct 34.6 L (39.0-53.0) % RDW 16.0 H (11.5-15.5) % Plt Count 125 L (150-450) k/uL Lymphocytes # 0.5 L (1.0-4.8) k/uL Sodium 136 L (137-145) mmol/L BUN 23 H (9-20) mg/dL Creatinine 6.95 H* (0.66-1.25) mg/dL Glucose 100 H (74-99) mg/dL Phosphorus 6.3 H (2.5-4.5) mg/dL Microbiology - Last 24 Hours (Table) 07/23/17 01:00 Gram Stain - Final Sputum Sputum Culture - Final Moraxella(branhamella) catarra Assessment and Plan Plan: 1 acute status epilepticus. Currently on Keppra. Patient was extubated yesterday uneventfully and he remains off mechanical ventilation. 2 acute hypoxic respiratory failure secondary to fluid overload. Possible underlying infiltrates noted and chest x-ray today. This required intubation and mechanical ventilation, but for the last 24 hours, the patient has been off mechanical ventilation, and tolerated the extubation well. 3 acute thalamic stroke is suspected based on the Computed tomography scan of the brain, these clinical correlation 4 End-stage renal disease on hemodialysis 3 times a week, with poor compliance 5 hypertension, poorly controlled and currently the patient is on multiple blood pressure medications, and if his blood pressure remains well controlled, and the patient remains seizure-free, will likely transfer the patient today out of the ICU to a monitor bed on [facility]. 6 chronic back pain with multilevel degenerative disc disease and stenosis 7 acute lactic acidosis, recovered 8 chronic nephrolithiasis leading into end-stage renal disease Recommendation: Continue present supportive care measures, patient will remain in the ICU, continue to monitor for any seizure activities, address the blood pressure accordingly as noted above in my note, his medications were adjusted and we'll continue to follow. May consider transfer out of the ICU later today if he remains hemodynamically stable. Time with Patient: Less than 30
--- NOTE | 2017-07-25 11:55 | P.PN ---
Subjective Patient is seen in follow-up for end-stage renal disease. He is maintained on hemodialysis on a Saturday schedule. He underwent hemodialysis yesterday. He is currently awake and alert. No active complaints at this time. Blood pressures are better controlled and he's off labetalol drip. Oral intake is good. Vital signs are stable. General: The patient appeared well nourished and normally developed. HEENT: Head exam is unremarkable. Neck is without jugular venous distension. LUNGS: Lungs are clear to auscultation and percussion. Breath sounds decreased. HEART: Rate and Rhythm are regular. First and second heart sounds normal. No murmurs, rubs or gallops. ABDOMEN: Abdominal exam reveals normal bowel sounds. Non-tender and non- distended. No evidence of peritonitis. EXTREMITITES: No clubbing, cyanosis, or edema. Objective - Vital Signs Vital signs: Vital Signs Temp 99.0 F 07/25/17 07:30 Pulse 74 07/25/17 11:00 Resp 11 L 07/25/17 11:00 BP 117/33 07/25/17 11:00 Pulse Ox 96 07/25/17 11:00 Intake & Output 07/24/17 07/25/17 07/25/17 18:59 06:59 18:59 Intake Total 869.0 1030 80 Output Total 100 100 225 Balance 769.0 930 -145 Weight 57.3 kg 61.3 kg Intake: IV 310 630 80 Labetalol 100 mg In 360 Sodium Chloride 0.9% 80 ml @ 2 MG/MIN 120 mls/hr IV .Q50M [facility] Rx#: [id number] Piperacillin-Tazobactam 3 70 50 .375 gm In Dextrose/Water 1 50ml.bag @ 12.5 mls/hr IVPB Q12H [facility] Rx#: [id number] Sodium Chloride 0.9% 1, 240 220 80 000 ml @ 20 mls/hr IV . Q24H [facility] Rx#:[id number] Intake, IV Titration 199.0 400 Amount Labetalol 100 mg In 199.0 Sodium Chloride 0.9% 80 ml @ 2 MG/MIN 120 mls/hr IV .Q50M [facility] Rx#: [id number] Labetalol 200 mg In 400 Sodium Chloride 0.9% 160 ml @ 60 mls/hr IV .Q3H20M [facility] Rx#:[id number] Oral 360 Output: Urine 0 100 225 Stool 100 Other: Voiding Method Urinal Urinal Urinal # Voids 1 0 0 # Bowel Movements 1 - Labs CBC & Chem 7: 07/25/17 04:13 07/25/17 04:13 Labs: Abnormal Lab Results - Last 24 Hours (Table) 07/25/17 07/25/17 Range/Units 04:13 04:13 RBC 3.49 L (4.30-5.90) m/uL Hgb 11.6 L (13.0-17.5) gm/dL Hct 34.6 L (39.0-53.0) % RDW 16.0 H (11.5-15.5) % Plt Count 125 L (150-450) k/uL Lymphocytes # 0.5 L (1.0-4.8) k/uL Sodium 136 L (137-145) mmol/L BUN 23 H (9-20) mg/dL Creatinine 6.95 H* (0.66-1.25) mg/dL Glucose 100 H (74-99) mg/dL Phosphorus 6.3 H (2.5-4.5) mg/dL Microbiology - Last 24 Hours (Table) 07/23/17 01:00 Gram Stain - Final Sputum Sputum Culture - Final Moraxella(branhamella) catarra Assessment and Plan Plan: Assessment: #1. End-stage renal disease maintained on hemodialysis on a Saturday schedule. #2. Left thalamic CVA. #3. History of seizures. #4. Chronic kidney disease mineral bone disease. #5. Hypertension with chronic kidney disease. Controlled. Plan: Hemodialysis tomorrow and again Saturday so he is back on his outpatient Saturday schedule. Continue current antihypertensives. Encourage oral intake. Maintain Renvela with meals. Stable to be transferred out of the intensive care unit from nephrology standpoint.
[2017-07-25] MEDS: PIPERACILLIN-TAZOBACTAM 3.375 GM in DEXTROSE/WATER 1 50ML.BAG IVPB SCH ×2 (12:33→23:03)
--- NOTE | 2017-07-25 14:16 | P.PN ---
Subjective This is a 47-year-old male patient of Dr. Jaylen juares with past medical history of end-stage renal disease on hemodialysis 3 times weekly, hypertension, seizure disorder. Patient had a recent hospitalization July 06 for TIA and was seen in consultation by Dr. Viveros. There was concern for cervical spondylosis and recommended MRI of the cervical spine and orthopedic consult. Carotid duplex showed no stenosis. Echocardiogram revealed EF of 55- 60%, no pulmonary hypertension, moderate concentric left hypertrophy, trace mitral regurgitation, trace tricuspid regurgitation. Patient was discharged home on new medication of clonidine. Patient now presents to [facility] emergency center by EMS with seizure activity. Upon arrival, patient was post ictal. Initial blood pressure was 250/148. Patient received 2 doses of hydralazine 20 mg IV push and clonidine patch followed by nitroglycerin drip. Blood pressure was improved but remain elevated and nitroglycerin drip was discontinued and patient started on labetalol drip. CAT scan of the brain showed a new hypoattenuation in the left thalamus with mild expansion. Differential include evolving infarction, toxic metabolic process, infectious process. Punctate dermal hyperdensity in the right premaxillary region. Correlate for foreign body. Dehiscence of the left lamina papyracea. Chest x-ray showed bibasilar and bilateral hilar infiltrates. While in the emergency room patient had a second seizure, generalized tonic-clonic seizure and given Ativan as well as Keppra 1 g IV. Patient did miss 2 hemodialysis treatments and this was initiated in the emergency center. He was given a rectal aspirin and consult placed with Dr. Perez. Patient did have a third seizure around 6:30 AM and he was intubated at that time. Patient is seen in the emergency room, waiting for her ICU bed. Dr. Doss, Dr. Perez, Dr. Rod are on consult. Outpatient cervical spine MRI ordered by Dr. Benjamin showed multilevel degenerative disc disease, spinal stenosis with digestion of myelomalacia. Multilevel foraminal encroachment. Tortuous vertebral artery on the left is in close proximity to the left C2 nerve root 07/22: Dr. Rod is recommending repeat dialysis today. Dr. Doss is following as well as Dr. Perez. EEG was ordered. Labetalol drip was discontinued by Dr. Doss and and placed him on clevidipine drip, lisinopril and clonidine. He remains intubated and on mechanical ventilation. He has large amount of secretions for which Zosyn has been added. No plan for weaning today. 07/23: Repeat CAT scan of the brain shows nonspecific periventricular white matter ischemic changes likely chronic. There may be some maturation of a lacunar infarct of the medial left thalamus which is somewhat less wide comparison study. This may be normal maturation. Repeat chest x-ray shows bibasilar infiltrates present improving from prior study. Patient has been successfully extubated this morning. He is continued on Lasix 80 mg every 12 hours IV. Nephrology to determine next hemodialysis treatment. He does not have one scheduled for today. Current blood pressure medication, patient will be resumed on the clonidine at 4 times daily and Norvasc daily. The patient remains hemodynamically stable, patient will be transferred to [facility]. 07/24: Homocysteine level was 17.66. Cholesterol 168, triglycerides 198, LDL 92, HDL 36. Today potassium is 5.2 with BUN of 38 and creatinine 9.18. Patient is scheduled for hemodialysis today with removal of 4 L. Keppra will be changed to oral at 750 mg twice daily. Repeat chest x-ray shows interval extubation. Improvement in aeration. No seizure activity since admission. Patient did not sleep during the night and is now very drowsy. Melatonin added at nighttime. Patient has more confusion today from yesterday. He is currently undergoing hemodialysis. 07/25: Patient remains in intensive care unit. He is waiting for a bed on [facility]. MRI is to be completed this afternoon. He underwent hemodialysis yesterday with plan for Saturday and Saturday and then he will be back on his Saturday, , Saturday T. Blood pressure medications have been adjusted. Seroquel was added for mood. Patient is more alert today from yesterday. Objective - Vital Signs Vital signs: Vital Signs Temp 99.0 F 07/25/17 07:30 Pulse 77 07/25/17 09:00 Resp 16 07/25/17 09:00 BP 136/78 07/25/17 09:00 Pulse Ox 95 07/25/17 09:00 Intake & Output 07/24/17 07/25/17 07/25/17 18:59 06:59 18:59 Intake Total 869.0 1030 60 Output Total 100 100 225 Balance 769.0 930 -165 Weight 57.3 kg 61.3 kg Intake: IV 310 630 60 Labetalol 100 mg In 360 Sodium Chloride 0.9% 80 ml @ 2 MG/MIN 120 mls/hr IV .Q50M [facility] Rx#: [id number] Piperacillin-Tazobactam 3 70 50 .375 gm In Dextrose/Water 1 50ml.bag @ 12.5 mls/hr IVPB Q12H [facility] Rx#: [id number] Sodium Chloride 0.9% 1, 240 220 60 000 ml @ 20 mls/hr IV . Q24H [facility] Rx#:[id number] Intake, IV Titration 199.0 400 Amount Labetalol 100 mg In 199.0 Sodium Chloride 0.9% 80 ml @ 2 MG/MIN 120 mls/hr IV .Q50M [facility] Rx#: [id number] Labetalol 200 mg In 400 Sodium Chloride 0.9% 160 ml @ 60 mls/hr IV .Q3H20M [facility] Rx#:[id number] Oral 360 Output: Urine 0 100 225 Stool 100 Other: Voiding Method Urinal Urinal # Voids 1 0 0 # Bowel Movements 1 - Exam General appearance: average body habitus, no acute distress - EENT Eyes: PERRLA, no scleral icterus, normal appearance ENT: no thrush - Neck Neck: no lymphadenopathy, no thyromegaly Carotids: bilateral: bruit absent - Respiratory Respiratory: bilateral: CTA, diminished - Cardiovascular Heart sounds: normal: S1, S2 Abnormal Heart Sounds: systolic murmur - Gastrointestinal General gastrointestinal: no absent bowel sounds, no distended, no hepatomegaly , no hyperactive bowel sounds, normal bowel sounds, no organomegaly, no rigid, no scaphoid, soft, no splenomegaly, no tenderness, no umbilical hernia, no ventral hernia - Integumentary Integumentary: no cellulitis, no cyanotic, no jaundiced, normal - Musculoskeletal Musculoskeletal: no gait normal - Psychiatric Psychiatric: A&O x's3, appropriate affect, intact judgment & insight - Labs CBC & Chem 7: 07/25/17 04:13 07/25/17 04:13 Labs: Abnormal Lab Results - Last 24 Hours (Table) 07/25/17 07/25/17 Range/Units 04:13 04:13 RBC 3.49 L (4.30-5.90) m/uL Hgb 11.6 L (13.0-17.5) gm/dL Hct 34.6 L (39.0-53.0) % RDW 16.0 H (11.5-15.5) % Plt Count 125 L (150-450) k/uL Lymphocytes # 0.5 L (1.0-4.8) k/uL Sodium 136 L (137-145) mmol/L BUN 23 H (9-20) mg/dL Creatinine 6.95 H* (0.66-1.25) mg/dL Glucose 100 H (74-99) mg/dL Phosphorus 6.3 H (2.5-4.5) mg/dL Microbiology - Last 24 Hours (Table) 07/23/17 01:00 Gram Stain - Final Sputum Sputum Culture - Final Moraxella(branhamella) catarra Assessment and Plan Plan: 1. Evolving left thalamus stroke. Aspirin 300 mg rectally daily, neurology consult, carotid ultrasound and echocardiogram from previous visit. Continue neuro checks. 2. Accelerated hypertension. Currently on Norvasc 5 mg twice daily, Catapres 0.3 mg twice daily, hydralazine 50 mg twice daily scheduled and IV push as needed, lisinopril 20 mg twice daily. 3. Acute hypoxic respiratory failure secondary to rule out overload from missed dialysis treatments, seizure activity and thalamus stroke with toxic encephalopathy. Dr. Doss is on consult. Patient has been successfully extubated. 4. Status epilepticus with history of seizures. Keppra changed to oral 750 mg every 12 hours. Ativan as needed for active seizures. Neurology consult. Patient was previously on Keppra 500 mg every 12 hours. 5. End-stage renal disease and lactic acidosis on hemodialysis presenting with fluid overload secondary to noncompliance and missing 2 dialysis treatments. Patient is currently undergoing dialysis in the emergency center. Dr. Rod is on consult. 6. Chronic cervical pain. Patient underwent outpatient MRI as noted above. Patient has been on Tylenol No. 3 and baclofen as well as undergoing pain management injections with Dr. Perez. 7. Tobacco use and dependence and recently discharged on nicotine patch. 8. Chronic thrombocytopenia. Monitor. 9. DVT prophylaxis. KP hose and SCDs. 10. GI prophylaxis. Pepcid IV 11. CODE STATUS: Full code. Discharge plan: Return home Impression and plan of care have been directed as dictated by the signing physician. Doretha Brumfield nurse practitioner acting as scribe for signing physician.
--- NOTE | 2017-07-25 15:07 | MR ---
EXAMINATION TYPE: MR brain wo con DATE OF EXAM: 07/25/2017 COMPARISON: CT brain exams from July 22, 2017 and older exams back to July 06, 2017. HISTORY: CVA per order. Seizure, possible thalamic infarct. Admitted for acute onset neuro deficit or left-sided weakness July 06. Readmitted July 21 for seizures. TECHNIQUE: Multiplanar, multisequence imaging of the brain and brainstem is performed without IV cont rast. FINDINGS: Diffusion weighted images demonstrate small residual 4 mm focus of increased signal on diffusion weig hted images which is diminished signal on ADC mapping image 128 series 305 and image 124 series 303 t he correlates with area of new abnormality hypodensity anterior medial left thalamus. There is faint punctate T2 hyperintensity at this level. Findings are consistent with acute evolving lacunar infarct . Degree of ischemia is significantly improved from CT 4 days ago. There is no worrisome extra-axial fluid collection. There is diffuse ventricular and sulcal prominenc e consistent with diffuse cerebral atrophy. There are scattered foci of T2 hyperintensity throughout the deep and periventricular white matter. T2 coronal weighted images show hippocampal gyri to appear symmetric and felt within normal limits. Midline structures demonstrate normal morphology. The craniocervical junction appears within normal limits. Normal vascular flow voids are present. The visualized sinuses are clear and the globes are i ntact. IMPRESSION: 1. Tiny residual area of acute/subacute ischemia anterior medial left thalamus is noted, significant improvement from CT 4 days ago is noted. 2. There is background of mild diffuse cerebral atrophy and mild to borderline moderate white matter changes most likely on basis of product of chronic small vessel ischemic change though other etiologi es are not excluded in patient of this age including demyelinating disease.
--- NOTE | 2017-07-25 15:30 | P.PN ---
Subjective Principal diagnosis: Seizure, stroke This is a 47-year-old male continuing to be evaluated by the neurology service for seizure disorder and an acute thalamic stroke. He had a recent admission for TIA. His carotid Doppler showed no signs of hemodynamically significant stenosis at that time. He was released, but soon after he presented to the emergency department with active seizures. There was a reported postictal state. His presenting blood pressure in the ER was 250/ 148. Initial CT of the brain showed hypoattenuation of the left thalamus. Repeat CT did show an evolving area of hypoattenuation. He did come off of the ventilator, but was quite combative and a little confused. At the time my evaluation he is on his way down for an MRI of the brain. He is much more awake and alert. There was some question as to some possible left-sided weakness, which I have not observed. His daughter and indicated that from time to time he will have some left sided gardening from an old injury to his left leg. He was initially given Keppra 1 g IV, and continues on oral Keppra at 750 mg every 12 hours. There has been no reported seizure activity last 72 hours. Objective - Vital Signs Vital signs: Vital Signs Temp 96.8 F L 07/25/17 15:00 Pulse 80 07/25/17 15:00 Resp 12 07/25/17 15:00 BP 110/70 07/25/17 15:00 Pulse Ox 98 07/25/17 15:00 Intake & Output 07/24/17 07/25/17 07/25/17 18:59 06:59 18:59 Intake Total 869.0 1030 160 Output Total 100 100 225 Balance 769.0 930 -65 Weight 57.3 kg 61.3 kg Intake: IV 310 630 160 Labetalol 100 mg In 360 Sodium Chloride 0.9% 80 ml @ 2 MG/MIN 120 mls/hr IV .Q50M [facility] Rx#: [id number] Piperacillin-Tazobactam 3 70 50 .375 gm In Dextrose/Water 1 50ml.bag @ 12.5 mls/hr IVPB Q12H [facility] Rx#: [id number] Sodium Chloride 0.9% 1, 240 220 160 000 ml @ 20 mls/hr IV . Q24H [facility] Rx#:[id number] Intake, IV Titration 199.0 400 Amount Labetalol 100 mg In 199.0 Sodium Chloride 0.9% 80 ml @ 2 MG/MIN 120 mls/hr IV .Q50M [facility] Rx#: [id number] Labetalol 200 mg In 400 Sodium Chloride 0.9% 160 ml @ 60 mls/hr IV .Q3H20M [facility] Rx#:[id number] Oral 360 Output: Urine 0 100 225 Stool 100 0 Other: Voiding Method Urinal Urinal Urinal # Voids 1 0 0 # Bowel Movements 1 - Constitutional General appearance: Present: average body habitus, cooperative, no acute distress - EENT Eyes: Present: anicteric sclerae, EOMI, PERRLA. Absent: abnormal pupil, ptosis ENT: Present: hearing grossly normal - Neck Neck: Present: normal ROM. Absent: rigidity - Respiratory Respiratory: negative: prolonged expiration, prolonged inspiration - Cardiovascular Rhythm: regular - Neurologic Neurologic Comment(s): Patient is alert and awake and conversant. As stated he is just been placed on a gurney going down for his MRI. There is no obvious lateralizing weakness. There is no facial asymmetry. - Labs CBC & Chem 7: 07/25/17 04:13 07/25/17 04:13 Labs: Abnormal Lab Results - Last 24 Hours (Table) 07/25/17 07/25/17 Range/Units 04:13 04:13 RBC 3.49 L (4.30-5.90) m/uL Hgb 11.6 L (13.0-17.5) gm/dL Hct 34.6 L (39.0-53.0) % RDW 16.0 H (11.5-15.5) % Plt Count 125 L (150-450) k/uL Lymphocytes # 0.5 L (1.0-4.8) k/uL Sodium 136 L (137-145) mmol/L BUN 23 H (9-20) mg/dL Creatinine 6.95 H* (0.66-1.25) mg/dL Glucose 100 H (74-99) mg/dL Phosphorus 6.3 H (2.5-4.5) mg/dL Microbiology - Last 24 Hours (Table) 07/23/17 01:00 Gram Stain - Final Sputum Sputum Culture - Final Moraxella(branhamella) catarra Assessment and Plan (1) 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 For now we'll continue aspirin 325 mg oral. An EEG was performed on 07/21 and and showed moderate encephalopathy with no epileptiform waves. There was a lot of movement artifact. An MRI of the brain has been ordered (see above). On 07/14 there was an MRI of the cervical spine showing some C3-C4 and C4-C5 disc pathology with corresponding myelomalacia of the spinal cord. So far we see no evidence that neurosurgical consultation is needed in the hospital setting. We will continue to follow and do more focus physical exams to see if this can wait for an outpatient appointment. We should start working with physical and occupational therapies as soon as possible. We will continue to follow and make recommendations. Continue neurological checks. Continue Keppra at current dose. I have performed a history and physical on the above patient. I have reviewed the above note, and agree.
[2017-07-25] MEDS ORDERED: BENZOCAINE/MENTHOL LOZENG 1 EACH LOZENGE MUCOUS MEM PRN (15:54)
[2017-07-25] MEDS: ASPIRIN 300 MG SUPP RECTAL SCH (19:30)
[2017-07-25] MEDS: MELATONIN 5 MG TABLET PO SCH (20:48)
[2017-07-26] MEDS: SODIUM CHLORIDE 0.9% 1,000 ML IV SCH (04:01)
[2017-07-26] MEDS: SEVELAMER 800 MG TAB PO SCH ×3 (06:18→17:20)
[2017-07-26 06:38] LABS: Anisocytosis Slight; Basophils % (A) 1 %; CH 32.1; CHCM 32.6; Eosinophils # (A) 0.1 k/uL (0-0.7); Eosinophils % (A) 3 %; HCT 33.2 % (39.0-53.0); HDW 3.18; HGB 10.9 gm/dL (13.0-17.5); Luc # (Auto) 0.11; Luc % (Auto) 3; Lymphocytes # (A) 0.6 k/uL (1.0-4.8); Lymphocytes % (A) 14 %; MCH 32.5 pg (25.0-35.0); MCHC 32.9 g/dL (31.0-37.0); MCV 98.9 fL (80.0-100.0); Macrocytosis Slight; Mean Platelet Volume 7.6; Monocytes # (A) 0.2 k/uL (0-1.0); Monocytes % (A) 5 %; Neutrophils # (A) 3.3 k/uL (1.3-7.7); Neutrophils % (A) 76 %; RBC 3.35 m/uL (4.30-5.90); WBC 4.3 k/uL (3.8-10.6)
[2017-07-26 06:41] LABS: Calcium 8.2 mg/dL (8.4-10.2); Magnesium 1.8 mg/dL (1.6-2.3); Phosphorous 6.6 mg/dL (2.5-4.5); Potassium 4.3 mmol/L (3.5-5.1)
[2017-07-26] MEDS: amLODIPine 5 MG TAB PO SCH ×2 (08:35→20:40)
[2017-07-26] MEDS: HEPARIN SODIUM,PORCINE 5,000 UNIT/ML 1 ML VIAL SQ SCH ×3 (08:35→23:21)
[2017-07-26] MEDS: cloNIDine HCL 0.1 MG TAB PO SCH ×2 (08:36→20:41)
[2017-07-26] MEDS: FAMOTIDINE 20 MG TAB PO SCH (08:36)
[2017-07-26] MEDS: hydrALAZINE HCL 50 MG TAB PO SCH ×2 (08:37→20:40)
[2017-07-26] MEDS: METHOCARBAMOL 750 MG TAB PO SCH ×3 (08:38→21:36)
[2017-07-26] MEDS: LISINOPRIL 20 MG TAB PO SCH ×2 (08:38→20:41)
[2017-07-26] MEDS: NICOTINE 14MG/24HR PATCH TRANSDERM SCH (08:38)
[2017-07-26] MEDS: SODIUM BICARBONATE TAB 650 MG TAB PO SCH ×2 (08:39→20:41)
[2017-07-26] MEDS: QUEtiapine 25 MG TAB PO SCH (08:39)
[2017-07-26 13:35] VITALS: BMI 23.0
--- NOTE | 2017-07-26 14:01 | P.PN ---
Subjective Principal diagnosis: Acute respiratory failure secondary to status epilepticus This is a 47-year-old male patient with known history of a incisional disease maintained on hemodialysis 3 times a week Saturday and Saturday. The patient has a long history of noncompliance to hemodialysis. His been dialysis for the past 8 years at least. He is currently receiving his diet to [facility]. He apparently missed the last 2 sessions of dialysis. He also has history of seizure for which he was started on Prednisone point however he has not been taking the medication a regular basis. Apparently, the patient was having generalized seizures at home. The patient was having back-to -back seizures each one lasting around 3 minutes. The EMS found this patient post ictal. Following that the patient was brought in to the burst department and he was unresponsive and he was unable to answer any questions. He is neurologic exam was nonfocal. He was found to be in fluid overload and significant respiratory distress. Based on that the patient was intubated and placed on a mechanical ventilator. He was started on Keppra. Post intubation he was started on Diprivan which is currently running at 20 mics. He was also started the Versed drip at 1 mg an hour. He was started on hemodialysis this morning in the emergency department and the diagnosis got completed around 3 PM this afternoon. A total of 3 L of fluid was ultrafiltrate as. At this point in time, the patient intubated on a mechanical ventilator. He is an assist- control mode at the rate of 18, tidal volume of 600, FiO2 was around down to 60 % and he isn't a PEEP of 5. Post intubation blood gases was done on the percent FiO2 showed a pH of 7.35 with a pCO2 of 37 and pO2 of 174. Peak airway pressures around 22. Chest x-ray showed evidence of pulmonate edema and ET tube was high in the trachea which was repositioned. The patient was also noted to have significantly elevated blood pressure. He was started on labetalol drip for blood pressure control. All these treatments were done in the burst department. After completing his hemodialysis, the patient got moved to the intensive care unit. Note that since his arrival to the hospital, no fluid seizure activities of been noted. Patient is currently receiving Keppra 750 mg IV every 12 hours. Labetalol drip is still running for blood pressure control. He is quite sedated. The CAT scan of the brain showed new hypoattenuation in the left thalamus and mild expansion and this raises the suspicion for a infarction. Other possibilities would also consider there is toxic metabolic process/infectious process. His previous echocardiogram from June 2017 showed a moderate concentric left ventricular hypertrophy with an ejection fraction of 55-60% without any significant valvular abnormalities. Noted the patient was in the hospital in June 2017 for left-sided numbness and weakness. MRI of the spine at was done at that time showed multilevel degenerative disc disease/spinal stenosis with some suggestion of myelomalacia. On 07/22/2017 the patient is being seen in follow-up in the intensive care unit. The patient is still intubated on a mechanical ventilator. A sedation holiday was given to him today. He woke up nicely. He was following some simple commands. He was squeezing with his upper extremities bilaterally in the motor function was felt to be equal and symmetrical. There was some noted weakness on the left lower extremity. No obvious Babinski. Note that his CAT scan of the chest showed a questionable thalamic stroke however the patient is known to have some chronic left-sided weakness related to cervical spine degenerative disc disease and spinal stenosis. Is not clear to me whether this is a new onset weakness or not. No seizure activity has been noted. The patient is currently on IV Keppra. He got dialyzed yesterday. A second session of dialysis will be done today. The patient be started also on IV Lasix knowing that he produces urine and he was placed on 80 mg IV push every 8 hours. The patient is an assist-control mode with a tidal volume of 600, FiO2 of 60% and a PEEP of 5. The morning blood gases showed a pH of 7.4 with a pCO2 of 33 and pO2 of 69 on a 60% FiO2. Chest x-ray still showing pulmonary asked her congestion and moderate-sized bilateral pleural effusion. For that reason, I decided to give this patient another day of mechanical ventilation to stabilize his condition further prior to considering any weaning. No fever. No chills. No other significant events over the past 24 hours. He is being seen by nephrology. Neurology consultation was also requested. On 07/23/2017, patient remains in the intensive care unit, on mechanical ventilation, seems to be appropriate, and in no form of respiratory distress. Propofol drip was discontinued, and the patient was given weaning parameters while I am at bedside. Patient seemed to do quite well, hence he was switched to a pressure support of 8 and CPAP for about 20 minutes. I reviewed his chest x-ray reviewed all his labs, discussed his condition with his at bedside, and the patient seems to be seizure free since he has been in the ICU. CBC was noted to be relatively normal. Electrolytes were noted to be normal. Renal profile showed a BUN of 26 creatinine of 7.14, patient underwent dialysis yesterday. Chest x-ray is showing bibasilar infiltrates, improving from previous study and a nasogastric tube was noted to be in the distal esophagus but this was discontinued with extubating the patient. Again while I'm at bedside, and I was monitoring the patient on pressure support and CPAP, his respiratory rate was in the high teens, tidal volume was in the 500 range, patient was extubated uneventfully. Reevaluated on 07/24/2017, patient remains in the intensive care unit, tolerated the extubation well over the last 24 hours. However the patient had episodes yesterday of extreme agitation, responded well to Ativan. His blood pressure remains intermittently quite high almost in the 200 range systolic, hence I had to restart him back on labetalol drip yesterday. However today I recommended readjusting his oral meds including the clonidine which was changed to 0.2 mg by mouth twice a day, Norvasc was increased to 5 mg twice a day. Lisinopril remained at 20 mg twice a day. I also added Seroquel, 25 mg daily, hoping the patient will relax and experienced less agitation. Ativan remains on board. May even consider adding hydralazine if needed. This morning however, the patient seems to be calm, in no distress, systolic blood pressures about 170, patient is on labetalol drip at 50 mg per hour. Reevaluated today on 07/25/2017, patient remains in intensive care unit, no pulmonary issues whatsoever, however his blood pressure has been fluctuating all over the place. Patient is now on multiple blood pressure meds including Norvasc 5 mg twice a day, clonidine, hydralazine, lisinopril, and he was placed on a maintenance dose of Seroquel to help his agitation. Today the blood pressure seems to be excellent, it is 108 systolic. Patient feels tired, but no specific complaints. CBC is relatively normal. Electrodes are normal. BUN is 23 creatinine 6.95. Patient was dialyzed yesterday. Reevaluated today on 07/26/2017, patient is doing well, his blood pressure seems to be better controlled, no evidence of seizure activity, patient remains quite calm. On dialysis Wednesdays and Fridays. CBC was reviewed basic metabolic profile was also reviewed. All his meds were reviewed. Objective - Vital Signs Vital signs: Vital Signs Temp 98.8 F 07/26/17 03:50 Pulse 77 07/26/17 08:00 Resp 18 07/26/17 08:00 BP 158/84 07/26/17 08:00 Pulse Ox 94 L 07/26/17 08:00 Intake & Output 07/25/17 07/26/17 07/26/17 18:59 06:59 18:59 Intake Total 160 370 300 Output Total 225 300 Balance -65 70 300 Weight 62.8 kg 62.8 kg Intake: IV 160 370 Piperacillin-Tazobactam 3 50 .375 gm In Dextrose/Water 1 50ml.bag @ 12.5 mls/hr IVPB Q12H KRISTY Rx#: [id number] Sodium Chloride 0.9% 1, 160 320 000 ml @ 20 mls/hr IV . Q24H KRISTY Rx#:[id number] Oral 300 Output: Urine 225 300 Stool 0 Other: Voiding Method Urinal Urinal # Voids 0 1 - Exam Physical Exam: Revealed a 47-year-old white male in no distress. HEENT:[Neck is supple.] [No neck masses.] [No thyromegaly.] [No JVD.] Chest: [Clear throughout, no crackles, no rhonchi, no wheezes.] Cardiac Exam: [Normal S1 and S2, no S3 gallop, no murmur.] Abdomen: [Soft, nontender, no megaly, no rebound, no guarding, normal bowel sounds.] Extremities: [No clubbing, no edema, no cyanosis.] Neurological Exam: [No focal neurologic deficit.] - Labs CBC & Chem 7: 07/26/17 06:15 07/26/17 06:15 Labs: Abnormal Lab Results - Last 24 Hours (Table) 07/26/17 07/26/17 Range/Units 06:15 06:15 RBC 3.35 L (4.30-5.90) m/uL Hgb 10.9 L (13.0-17.5) gm/dL Hct 33.2 L (39.0-53.0) % RDW 16.0 H (11.5-15.5) % Plt Count 131 L (150-450) k/uL Lymphocytes # 0.6 L (1.0-4.8) k/uL Sodium 135 L (137-145) mmol/L BUN 36 H (9-20) mg/dL Creatinine 8.92 H* (0.66-1.25) mg/dL Glucose 144 H (74-99) mg/dL Calcium 8.2 L (8.4-10.2) mg/dL Phosphorus 6.6 H (2.5-4.5) mg/dL Assessment and Plan Plan: 1 acute status epilepticus. Currently on Keppra. 2 acute hypoxic respiratory failure secondary to fluid overload. Possible underlying infiltrates noted and chest x-ray today. Definitely improved 3 acute thalamic stroke is suspected based on the Computed tomography scan of the brain, MRI of the brain showed significant improvement 4 End-stage renal disease on hemodialysis 3 times a week, with poor compliance 5 hypertension, better controlled with multiple medications as noted 6 chronic back pain with multilevel degenerative disc disease and spinal stenosis 7 acute lactic acidosis, recovered 8 chronic nephrolithiasis leading into end-stage renal disease Recommendation: Pulmonary wright, patient is cleared for discharge planning, needs to be cleared by neurology, will see on when necessary basis. Time with Patient: Less than 30
[2017-07-26] MEDS: PIPERACILLIN-TAZOBACTAM 3.375 GM in DEXTROSE/WATER 1 50ML.BAG IVPB SCH ×2 (14:46→23:21)
--- NOTE | 2017-07-26 15:22 | P.PN ---
Subjective This is a 47-year-old male patient of Dr. Jaylen juares with past medical history of end-stage renal disease on hemodialysis 3 times weekly, hypertension, seizure disorder. Patient had a recent hospitalization July 06 for TIA and was seen in consultation by Dr. Viveros. There was concern for cervical spondylosis and recommended MRI of the cervical spine and orthopedic consult. Carotid duplex showed no stenosis. Echocardiogram revealed EF of 55- 60%, no pulmonary hypertension, moderate concentric left hypertrophy, trace mitral regurgitation, trace tricuspid regurgitation. Patient was discharged home on new medication of clonidine. Patient now presents to [facility] emergency center by EMS with seizure activity. Upon arrival, patient was post ictal. Initial blood pressure was 250/148. Patient received 2 doses of hydralazine 20 mg IV push and clonidine patch followed by nitroglycerin drip. Blood pressure was improved but remain elevated and nitroglycerin drip was discontinued and patient started on labetalol drip. CAT scan of the brain showed a new hypoattenuation in the left thalamus with mild expansion. Differential include evolving infarction, toxic metabolic process, infectious process. Punctate dermal hyperdensity in the right premaxillary region. Correlate for foreign body. Dehiscence of the left lamina papyracea. Chest x-ray showed bibasilar and bilateral hilar infiltrates. While in the emergency room patient had a second seizure, generalized tonic-clonic seizure and given Ativan as well as Keppra 1 g IV. Patient did miss 2 hemodialysis treatments and this was initiated in the emergency center. He was given a rectal aspirin and consult placed with Dr. Perez. Patient did have a third seizure around 6:30 AM and he was intubated at that time. Patient is seen in the emergency room, waiting for her ICU bed. Dr. Doss, Dr. Perez, Dr. Rod are on consult. Outpatient cervical spine MRI ordered by Dr. Benjamin showed multilevel degenerative disc disease, spinal stenosis with digestion of myelomalacia. Multilevel foraminal encroachment. Tortuous vertebral artery on the left is in close proximity to the left C2 nerve root 07/22: Dr. Rod is recommending repeat dialysis today. Dr. Doss is following as well as Dr. Perez. EEG was ordered. Labetalol drip was discontinued by Dr. Doss and and placed him on clevidipine drip, lisinopril and clonidine. He remains intubated and on mechanical ventilation. He has large amount of secretions for which Zosyn has been added. No plan for weaning today. 07/23: Repeat CAT scan of the brain shows nonspecific periventricular white matter ischemic changes likely chronic. There may be some maturation of a lacunar infarct of the medial left thalamus which is somewhat less wide comparison study. This may be normal maturation. Repeat chest x-ray shows bibasilar infiltrates present improving from prior study. Patient has been successfully extubated this morning. He is continued on Lasix 80 mg every 12 hours IV. Nephrology to determine next hemodialysis treatment. He does not have one scheduled for today. Current blood pressure medication, patient will be resumed on the clonidine at 4 times daily and Norvasc daily. The patient remains hemodynamically stable, patient will be transferred to [facility]. 07/24: Homocysteine level was 17.66. Cholesterol 168, triglycerides 198, LDL 92, HDL 36. Today potassium is 5.2 with BUN of 38 and creatinine 9.18. Patient is scheduled for hemodialysis today with removal of 4 L. Keppra will be changed to oral at 750 mg twice daily. Repeat chest x-ray shows interval extubation. Improvement in aeration. No seizure activity since admission. Patient did not sleep during the night and is now very drowsy. Melatonin added at nighttime. Patient has more confusion today from yesterday. He is currently undergoing hemodialysis. 07/25: Patient remains in intensive care unit. He is waiting for a bed on [facility]. MRI is to be completed this afternoon. He underwent hemodialysis yesterday with plan for Saturday and Saturday and then he will be back on his Saturday, , Saturday T. Blood pressure medications have been adjusted. Seroquel was added for mood. Patient is more alert today from yesterday. 07/26: Patient is currently in selective, MRI of the brain performed yesterday showing tiny residual area of acute subacute ischemia anterior medial left thalamus significant improvement from previous CT 4 days ago is also mild to moderate cerebral atrophy patient's without any complaints today physical therapy has seen him this time for ambulation, no concerns at this time, I anticipate home with possible home therapies in the morning, fasting Keppra levels to be obtained tomorrow Objective - Vital Signs Vital signs: Vital Signs Temp 98.8 F 07/26/17 03:50 Pulse 77 07/26/17 08:00 Resp 18 07/26/17 08:00 BP 158/84 07/26/17 08:00 Pulse Ox 94 L 07/26/17 08:00 Intake & Output 07/25/17 07/26/17 07/26/17 18:59 06:59 18:59 Intake Total 160 370 300 Output Total 225 300 Balance -65 70 300 Weight 62.8 kg 62.8 kg Intake: IV 160 370 Piperacillin-Tazobactam 3 50 .375 gm In Dextrose/Water 1 50ml.bag @ 12.5 mls/hr IVPB Q12H KRISTY Rx#: [id number] Sodium Chloride 0.9% 1, 160 320 000 ml @ 20 mls/hr IV . Q24H KRISTY Rx#:[id number] Oral 300 Output: Urine 225 300 Stool 0 Other: Voiding Method Urinal Urinal # Voids 0 1 - Constitutional General appearance: Present: average body habitus, cooperative, no acute distress - EENT Eyes: Present: anicteric sclerae, EOMI, PERRLA, dentition normal, normal appearance ENT: Present: NA/AT, normal oropharynx - Neck Neck: Present: normal ROM - Respiratory Respiratory: bilateral: CTA, negative: dullness, rales, rhonchi, wheezing - Cardiovascular Rhythm: regular - Gastrointestinal General gastrointestinal: Present: normal bowel sounds, soft - Integumentary Integumentary: Present: normal - Neurologic Neurologic: Present: CNII-XII intact - Musculoskeletal Musculoskeletal: Present: gait normal, strength equal bilaterally - Psychiatric Psychiatric: Present: A&O x's 3, appropriate affect, intact judgment & insight - Labs CBC & Chem 7: 07/26/17 06:15 07/26/17 06:15 Labs: Abnormal Lab Results - Last 24 Hours (Table) 07/26/17 07/26/17 Range/Units 06:15 06:15 RBC 3.35 L (4.30-5.90) m/uL Hgb 10.9 L (13.0-17.5) gm/dL Hct 33.2 L (39.0-53.0) % RDW 16.0 H (11.5-15.5) % Plt Count 131 L (150-450) k/uL Lymphocytes # 0.6 L (1.0-4.8) k/uL Sodium 135 L (137-145) mmol/L BUN 36 H (9-20) mg/dL Creatinine 8.92 H* (0.66-1.25) mg/dL Glucose 144 H (74-99) mg/dL Calcium 8.2 L (8.4-10.2) mg/dL Phosphorus 6.6 H (2.5-4.5) mg/dL Assessment and Plan Plan: 1. Evolving left thalamus stroke. Aspirin 300 mg rectally daily, neurology consult, carotid ultrasound and echocardiogram from previous visit. Continue neuro checks. 2. Accelerated hypertension. Currently on Norvasc 5 mg twice daily, Catapres 0.3 mg twice daily, hydralazine 50 mg twice daily scheduled and IV push as needed, lisinopril 20 mg twice daily. 3. Acute hypoxic respiratory failure secondary to rule out overload from missed dialysis treatments, seizure activity and thalamus stroke with toxic encephalopathy. Dr. Doss is on consult. Patient has been successfully extubated. 4. Status epilepticus with history of seizures. Keppra changed to oral 750 mg every 12 hours. Ativan as needed for active seizures. Neurology consult. Patient was previously on Keppra 750 mg every 12 hours. keppra level in am 07/27 5. End-stage renal disease and lactic acidosis on hemodialysis presenting with fluid overload secondary to noncompliance and missing 2 dialysis treatments. Patient is currently undergoing dialysis in the emergency center. Dr. Rod is on consult. 6. Chronic cervical pain. Patient underwent outpatient MRI as noted above. Patient has been on Tylenol No. 3 and baclofen as well as undergoing pain management injections with Dr. Perez. 7. Tobacco use and dependence and recently discharged on nicotine patch. 8. Chronic thrombocytopenia. Monitor. 9. Insomnia, on melatonin 5 mg at bedtime DVT prophylaxis. KP feliciano and SCDs. GI prophylaxis. Pepcid IV discharge planning home with possible therapies in the morning
--- NOTE | 2017-07-26 18:18 | P.PN ---
Subjective Principal diagnosis: Patient is a pleasant 47-year-old male who is being followed by the neurology service for seizure disorder and an acute thalamic stroke. Patient was recently hospitalized for TIA. As you recall, carotid Doppler showed no signs of hemodynamically significant stenosis. Patient presented to [facility] emergency room with active seizures. Patient presented to the ER with blood pressure of 250/148. Initial CT of the brain showed hypoattenuation of the left thalamus. An MRI of the brain showed residual area of acute/subacute ischemia anterior medial left thalamus which is significantly improved from CT of 4 days ago. Patient does have areas of white matter changes most likely the basis of chronic small vessel ischemic changes. No further seizures have been reported since admission. Patient's been ambulating in the hallway with walker without difficulty. At the time of my evaluation, patient is resting comfortably in bed and appears to be in no acute distress. Objective - Vital Signs Vital signs: Vital Signs Temp 98.8 F 07/26/17 03:50 Pulse 84 07/26/17 15:33 Resp 18 07/26/17 15:33 BP 162/78 07/26/17 15:33 Pulse Ox 96 07/26/17 15:33 Intake & Output 07/25/17 07/26/17 07/26/17 18:59 06:59 18:59 Intake Total 160 370 420 Output Total 225 300 Balance -65 70 420 Weight 62.8 kg 62.8 kg Intake: IV 160 370 Piperacillin-Tazobactam 3 50 .375 gm In Dextrose/Water 1 50ml.bag @ 12.5 mls/hr IVPB Q12H KRISTY Rx#: [id number] Sodium Chloride 0.9% 1, 160 320 000 ml @ 20 mls/hr IV . Q24H KRISTY Rx#:[id number] Oral 420 Output: Urine 225 300 Stool 0 Other: Voiding Method Urinal Urinal # Voids 0 1 - Exam PHYSICAL EXAM: GENERAL APPEARANCE: Patient is a well-developed, male who appears to be in no acute distress. HEENT: Normocephalic, atraumatic, no facial asymmetry is seen. Neck is supple with no masses felt. CARDIOVASCULAR: Regular rate and rhythm. ABDOMEN: Nontender, nondistended. EXTREMITIES: Show no edema or clubbing. NEUROLOGICAL EXAM: Patient is awake, alert, and oriented 3. Speech and language are normal. Strength is full in all 4 extremities. Sensory exam to light touch is normal in all 4 extremities. No facial asymmetry is seen on cranial nerve testing. No tremors or seizure-like activity is noted. - Labs CBC & Chem 7: 07/26/17 06:15 07/26/17 06:15 Labs: Abnormal Lab Results - Last 24 Hours (Table) 07/26/17 07/26/17 Range/Units 06:15 06:15 RBC 3.35 L (4.30-5.90) m/uL Hgb 10.9 L (13.0-17.5) gm/dL Hct 33.2 L (39.0-53.0) % RDW 16.0 H (11.5-15.5) % Plt Count 131 L (150-450) k/uL Lymphocytes # 0.6 L (1.0-4.8) k/uL Sodium 135 L (137-145) mmol/L BUN 36 H (9-20) mg/dL Creatinine 8.92 H* (0.66-1.25) mg/dL Glucose 144 H (74-99) mg/dL Calcium 8.2 L (8.4-10.2) mg/dL Phosphorus 6.6 H (2.5-4.5) mg/dL Assessment and Plan Plan: Impression: 1. CVA/left sided thalamic stroke 2. Seizure disorder 3. Chronic renal failure 4. Encephalopathy 5. Myelomalacia of the cervical cord Recommendations: Patient did suffer left-sided thalamic stroke. I recommend he continue aspirin 325 mg daily. As you recall, EEG showed moderate encephalopathy with no epileptiform waves. I recommend continuing Keppra at current dose. An MRI of the brain, as mentioned above, show significant improvement as compared to CT of 4 days ago. I recommend continuing physical and occupational therapy. Upon exam, there is no evidence neurosurgical consultation is needed at this time. We will continue to follow patient as an outpatient. Patient is stable for discharge from a neurological standpoint. Continue neurological checks. Continue seizure precautions. I will continue to follow on an as-needed basis. Feel free to call with any questions or concerns. I performed an examination of the patient and discussed the management with the STUDENT LIFE COORDINATOR. I have reviewed the STUDENT LIFE COORDINATOR notes and agree with the findings and plan of care.
[2017-07-26] MEDS: MELATONIN 5 MG TABLET PO SCH (20:41)
[2017-07-27] MEDS: SODIUM CHLORIDE 0.9% 1,000 ML IV SCH (05:03)
[2017-07-27] MEDS ORDERED: NICOTINE 14MG/24HR PATCH TRANSDERM SCH (07:00)
[2017-07-27 07:38] LABS: Basophils % (A) 1 %; CH 31.9; Eosinophils # (A) 0.1 k/uL (0-0.7); Eosinophils % (A) 3 %; HCT 34.7 % (39.0-53.0); HDW 3.13; HGB 11.2 gm/dL (13.0-17.5); Hypochromasia Slight; Luc # (Auto) 0.21; Luc % (Auto) 5; Lymphocytes # (A) 0.7 k/uL (1.0-4.8); Lymphocytes % (A) 14 %; MCH 32.5 pg (25.0-35.0); MCHC 32.4 g/dL (31.0-37.0); MCV 100.2 fL (80.0-100.0); Macrocytosis Slight; Mean Platelet Volume 7.6; Monocytes # (A) 0.2 k/uL (0-1.0); Monocytes % (A) 5 %; Neutrophils # (A) 3.4 k/uL (1.3-7.7); Neutrophils % (A) 73 %; RBC 3.46 m/uL (4.30-5.90); RDW 15.6 % (11.5-15.5); WBC 4.7 k/uL (3.8-10.6); WBC (Perox) 5.03
[2017-07-27] MEDS: amLODIPine 5 MG TAB PO SCH (07:38)
[2017-07-27] MEDS: SODIUM BICARBONATE TAB 650 MG TAB PO SCH (07:38)
[2017-07-27] MEDS: SEVELAMER 800 MG TAB PO SCH (07:38)
[2017-07-27] MEDS: cloNIDine HCL 0.1 MG TAB PO SCH (07:38)
[2017-07-27] MEDS: FAMOTIDINE 20 MG TAB PO SCH (07:39)
[2017-07-27] MEDS: HEPARIN SODIUM,PORCINE 5,000 UNIT/ML 1 ML VIAL SQ SCH (07:39)
[2017-07-27] MEDS: hydrALAZINE HCL 50 MG TAB PO SCH (07:39)
[2017-07-27] MEDS: LISINOPRIL 20 MG TAB PO SCH (07:39)
[2017-07-27] MEDS: METHOCARBAMOL 750 MG TAB PO SCH (07:39)
[2017-07-27] MEDS: QUEtiapine 25 MG TAB PO SCH (07:40)
[2017-07-27 08:03] LABS: Calcium 8.5 mg/dL (8.4-10.2); Magnesium 1.8 mg/dL (1.6-2.3); Phosphorous 7.2 mg/dL (2.5-4.5); Potassium 4.8 mmol/L (3.5-5.1)
[2017-07-27 08:20] VITALS: BP 158/92; PULSE 71; RESP 16; TEMP 98.1
--- NOTE | 2017-07-27 10:32 | PN ---
PROGRESS NOTE DATE OF SERVICE: 07/26/2017. INTERVAL HISTORY: The patient is seen for followup for end-stage renal disease. He has been transferred out of the ICU. Blood pressure is much better controlled. Currently, the patient is maintained on clonidine, Norvasc and hydralazine along with lisinopril. He is lying in bed. He is comfortable, awake. He is not in any acute distress. He still requires a sitter on and off. PHYSICAL EXAMINATION: On examination, blood pressure 156/82, heart rate 85 per minute. He is afebrile. Examination of the heart S1, S2. Examination of the lungs bilateral breath sounds are heard. Abdomen is soft, nontender. Examination lower extremities shows no evidence of edema. LABS: Sodium 135, potassium 4.3, hemoglobin 10.9 g/dL. ASSESSMENT: 1. End-stage renal disease, on hemodialysis on a Saturday, , Saturday schedule as outpatient. The patient was dialyzed yesterday. We will switch him to a TTS schedule by dialyzing him tomorrow. He is currently not volume overloaded. Blood pressure is well controlled and potassium is not high and therefore he could skip today. 2. Uncontrolled hypertension, currently significantly improved. Continue current medications. 3. Hyperphosphatemia. Maintained on phosphate binders in the form of Renvela. 4. Status post thalamic infarct this admission. PLAN: Hemodialysis in a.m. Continue current antihypertensive medications. MMODL / NATHANN: [id number] /
--- NOTE | 2017-07-27 17:46 | P.DS ---
Providers Date of admission: 07/21/17 04:16 Expected date of discharge: 07/27/17 Attending physician: Paulo Pruitt Consults: 07/21/17 04:11 Consult Physician Stat Consulting Provider: Barbara Doss Consult Reason/Comments: Critical care Do you want consulting provider notified?: Already Contacted Consult Physician Stat Consulting Provider: Clay Perez Consult Reason/Comments: Status epilepticus, left thalamic CVA Do you want consulting provider notified?: Already Contacted Consult Physician Stat Consulting Provider: Ankit Rod Consult Reason/Comments: End-stage renal disease, hypertensive emergency Do you want consulting provider notified?: Already Contacted Primary care physician: Jaylen Lomax [facility] Course: This is a 47-year-old male patient of Dr. York caught with past medical history of end-stage renal disease on hemodialysis 3 times weekly, hypertension, seizure disorder. Patient had a recent hospitalization July 06 for TIA and was seen in consultation by Dr. Viveros. There was concern for cervical spondylosis and recommended MRI of the cervical spine and orthopedic consult. Carotid duplex showed no stenosis. Echocardiogram revealed EF of 55- 60%, no pulmonary hypertension, moderate concentric left hypertrophy, trace mitral regurgitation, trace tricuspid regurgitation. Patient was discharged home on new medication of clonidine. Patient now presents to [facility] emergency center by EMS with seizure activity. Upon arrival, patient was post ictal. Initial blood pressure was 250/148. Patient received 2 doses of hydralazine 20 mg IV push and clonidine patch followed by nitroglycerin drip. Blood pressure was improved but remain elevated and nitroglycerin drip was discontinued and patient started on labetalol drip. CAT scan of the brain showed a new hypoattenuation in the left thalamus with mild expansion. Differential include evolving infarction, toxic metabolic process, infectious process. Punctate dermal hyperdensity in the right premaxillary region. Correlate for foreign body. Dehiscence of the left lamina papyracea. Chest x-ray showed bibasilar and bilateral hilar infiltrates. While in the emergency room patient had a second seizure, generalized tonic-clonic seizure and given Ativan as well as Keppra 1 g IV. Patient did miss 2 hemodialysis treatments and this was initiated in the emergency center. He was given a rectal aspirin and consult placed with Dr. Perez. Patient did have a third seizure around 6:30 AM and he was intubated at that time. Patient is seen in the emergency room, waiting for her ICU bed. Dr. Doss, Dr. Perez, Dr. Rod are on consult. Outpatient cervical spine MRI ordered by Dr. Benjamin showed multilevel degenerative disc disease, spinal stenosis with digestion of myelomalacia. Multilevel foraminal encroachment. Tortuous vertebral artery on the left is in close proximity to the left C2 nerve root 07/22: Dr. Rod is recommending repeat dialysis today. Dr. Doss is following as well as Dr. Perez. EEG was ordered. Labetalol drip was discontinued by Dr. Doss and and placed him on clevidipine drip, lisinopril and clonidine. He remains intubated and on mechanical ventilation. He has large amount of secretions for which Zosyn has been added. No plan for weaning today. 07/23: Repeat CAT scan of the brain shows nonspecific periventricular white matter ischemic changes likely chronic. There may be some maturation of a lacunar infarct of the medial left thalamus which is somewhat less wide comparison study. This may be normal maturation. Repeat chest x-ray shows bibasilar infiltrates present improving from prior study. Patient has been successfully extubated this morning. He is continued on Lasix 80 mg every 12 hours IV. Nephrology to determine next hemodialysis treatment. He does not have one scheduled for today. Current blood pressure medication, patient will be resumed on the clonidine at 4 times daily and Norvasc daily. The patient remains hemodynamically stable, patient will be transferred to [facility] care. 07/24: Homocysteine level was 17.66. Cholesterol 168, triglycerides 198, LDL 92, HDL 36. Today potassium is 5.2 with BUN of 38 and creatinine 9.18. Patient is scheduled for hemodialysis today with removal of 4 L. Keppra will be changed to oral at 750 mg twice daily. Repeat chest x-ray shows interval extubation. Improvement in aeration. No seizure activity since admission. Patient did not sleep during the night and is now very drowsy. Melatonin added at nighttime. Patient has more confusion today from yesterday. He is currently undergoing hemodialysis. 07/25: Patient remains in intensive care unit. He is waiting for a bed on [facility]. MRI is to be completed this afternoon. He underwent hemodialysis yesterday with plan for Saturday and Saturday and then he will be back on his Saturday, , Saturday T. Blood pressure medications have been adjusted. Seroquel was added for mood. Patient is more alert today from yesterday. 07/26: Patient is currently in selective, MRI of the brain performed yesterday showing tiny residual area of acute subacute ischemia anterior medial left thalamus significant improvement from previous CT 4 days ago is also mild to moderate cerebral atrophy patient's without any complaints today physical therapy has seen him this time for ambulation, no concerns at this time, I anticipate home with possible home therapies in the morning, fasting Keppra levels to be obtained tomorrow 07/27: Patient was stable and discharged Keppra level is pending, patient's to catch up hemodialysis schedule this morning is seen at11 o'clock today and stable on discharge follow-up with Dr. Perez outpatient, Dr. Figueroa nephrology Discharge diagnosis 1. Acute Evolving left thalamus stroke. 2. Accelerated hypertension. 3. Mechanical ventilation requiring Acute hypoxic respiratory failure secondary to rule out overload from missed dialysis treatments, seizure activity and thalamus stroke with toxic encephalopathy. Required mechanical ventilation 4. Status epilepticus with history of seizures. 5. End-stage renal disease and lactic acidosis on hemodialysis presenting with fluid overload secondary to noncompliance 6. Chronic cervical pain. 7. Tobacco use and dependence and recently discharged on nicotine patch. 8. Chronic thrombocytopenia. Monitor. 9. Insomnia, Discharge Medication List Calcium Acetate [PhosLo] 667 mg PO TID-W/MEALS 11/22/16 [History] Sodium Bicarbonate Tab 650 mg PO BID 11/22/16 [History] Lisinopril [Zestril] 20 mg PO BID 06/14/17 [History] Acetaminophen-Codeine 300-30mg [Tylenol w/codeine #3] 1 tab PO Q8H PRN 07/06/17 [History] Nicotine 14Mg/24Hr Patch [Habitrol] 1 patch TRANSDERM DAILY patch 07/07/17 [Rx] Ergocalciferol (Vitamin D2) [Vitamin D2] 50,000 unit PO Q30D 07/21/17 [History] Methocarbamol [Robaxin] 750 mg PO TID 07/22/17 [History] Aspirin 325 mg PO DAILY #30 tab 07/27/17 [Rx] Atorvastatin [Lipitor] 20 mg PO DAILY #30 tablet 07/27/17 [Rx] Melatonin 5 mg PO HS tab 07/27/17 [Rx] QUEtiapine [SEROquel] 25 mg PO HS #30 tab 07/27/17 [Rx] Sevelamer [Renvela] 1,600 mg PO TID-W/MEALS #0 tab 07/27/17 [Rx] amLODIPine [Norvasc] 5 mg PO BID tab 07/27/17 [Rx] cloNIDine HCL [Catapres] 0.3 mg PO BID #120 tab 07/27/17 [Rx] hydrALAZINE HCL [Apresoline] 50 mg PO BID #60 tab 07/27/17 [Rx] levETIRAcetam [Keppra] 750 mg PO Q12HR #60 tab 07/27/17 [Rx] Patient Condition at Discharge: Serious Plan - Discharge Summary New Discharge Prescriptions: New amLODIPine [Norvasc] 5 mg PO BID tab cloNIDine HCL [Catapres] 0.3 mg PO BID #120 tab hydrALAZINE HCL [Apresoline] 50 mg PO BID #60 tab levETIRAcetam [Keppra] 750 mg PO Q12HR #60 tab Melatonin 5 mg PO HS tab QUEtiapine [SEROquel] 25 mg PO HS #30 tab Sevelamer [Renvela] 1,600 mg PO TID-W/MEALS #0 tab Aspirin 325 mg PO DAILY #30 tab Atorvastatin [Lipitor] 20 mg PO DAILY #30 tablet Continue Sodium Bicarbonate Tab 650 mg PO BID Calcium Acetate [PhosLo] 667 mg PO TID-W/MEALS Lisinopril [Zestril] 20 mg PO BID Acetaminophen-Codeine 300-30mg [Tylenol w/codeine #3] 1 tab PO Q8H PRN PRN Reason: Pain Nicotine 14Mg/24Hr Patch [Habitrol] 1 patch TRANSDERM DAILY patch Ergocalciferol (Vitamin D2) [Vitamin D2] 50,000 unit PO Q30D Methocarbamol [Robaxin] 750 mg PO TID Discontinued Sevelamer [Renvela] 800 mg PO TID-W/MEALS amLODIPine [Norvasc] 5 mg PO DAILY levETIRAcetam [Keppra] 500 mg PO Q12HR Acetaminophen Tab [Tylenol] 650 mg PO Q4HR PRN tab PRN Reason: Fever And/ Or Pain cloNIDine HCL [Catapres] 0.1 mg PO QID Discharge Medication List Calcium Acetate [PhosLo] 667 mg PO TID-W/MEALS 11/22/16 [History] Sodium Bicarbonate Tab 650 mg PO BID 11/22/16 [History] Lisinopril [Zestril] 20 mg PO BID 06/14/17 [History] Acetaminophen-Codeine 300-30mg [Tylenol w/codeine #3] 1 tab PO Q8H PRN 07/06/17 [History] Nicotine 14Mg/24Hr Patch [Habitrol] 1 patch TRANSDERM DAILY patch 07/07/17 [Rx] Ergocalciferol (Vitamin D2) [Vitamin D2] 50,000 unit PO Q30D 07/21/17 [History] Methocarbamol [Robaxin] 750 mg PO TID 07/22/17 [History] Aspirin 325 mg PO DAILY #30 tab 07/27/17 [Rx] Atorvastatin [Lipitor] 20 mg PO DAILY #30 tablet 07/27/17 [Rx] Melatonin 5 mg PO HS tab 07/27/17 [Rx] QUEtiapine [SEROquel] 25 mg PO HS #30 tab 07/27/17 [Rx] Sevelamer [Renvela] 1,600 mg PO TID-W/MEALS #0 tab 07/27/17 [Rx] amLODIPine [Norvasc] 5 mg PO BID tab 07/27/17 [Rx] cloNIDine HCL [Catapres] 0.3 mg PO BID #120 tab 07/27/17 [Rx] hydrALAZINE HCL [Apresoline] 50 mg PO BID #60 tab 07/27/17 [Rx] levETIRAcetam [Keppra] 750 mg PO Q12HR #60 tab 07/27/17 [Rx] Follow up Appointment(s)/Referral(s): Clay Perez MD [STAFF PHYSICIAN] - 1 Week Jaylen Holguin MD [Primary Care Provider] - 1-2 days Rick Park DO [STAFF PHYSICIAN] - 1 Week Discharge Disposition: HOME SELF-CARE
== END 2017-07-27 09:04 | disposition home or self-care (01) | DRG 64 ==
LOC: EC 00:50 → 6ICU 04:16 → 6SEL 07-25 14:45 → 4MS4W 07-26 21:10
PROVIDERS: ADMIT Internal Medicine; ATTEND Internal Medicine
PROC: 0BH17EZ Insertion of Endotracheal Airway into Trachea, Via Natural or Artificial Opening (ICD-10-PCS; principal; 2017-07-21)
PROC: 5A1945Z Respiratory Ventilation, 24-96 Consecutive Hours (ICD-10-PCS; principal; 2017-07-21)
PROC: 5A1D60Z (ICD-10-PCS; 2017-07-21)
DX: I63.9 Cerebral infarction, unspecified (principal); N18.6 End stage renal disease; J96.01 Acute respiratory failure with hypoxia; G92 Toxic encephalopathy; G95.89 Other specified diseases of spinal cord; E87.2 Acidosis; D69.6 Thrombocytopenia, unspecified; I12.0 Hypertensive chronic kidney disease with stage 5 chronic kidney disease or end stage renal disease; G40.801 Other epilepsy, not intractable, with status epilepticus; I16.1 Hypertensive emergency; E83.39 Other disorders of phosphorus metabolism; E87.6 Hypokalemia; F17.200 Nicotine dependence, unspecified, uncomplicated; G47.00 Insomnia, unspecified; G89.29 Other chronic pain; Z99.2 Dependence on renal dialysis; Z91.15 Patient's noncompliance with renal dialysis; I50.9 Heart failure, unspecified; M48.00 Spinal stenosis, site unspecified; M50.30 Other cervical disc degeneration, unspecified cervical region; Z79.899 Other long term (current) drug therapy; Z87.442 Personal history of urinary calculi; Z91.19 Patient's noncompliance with other medical treatment and regimen
CPT/HCPCS: 31500; 36415; 36600; 51702; 70450; 70551; 71010; 80048; 80053; 80061; 80177; 80320; 81001; 82805; 83090; 83605; 83735; 84100; 85025; 87070; 87205; 90935; 93005; 94002; 94003; 94770; 95816; 96365; 96366; 96367; 96368; 96375; 96376; 99291; 99292

== ENCOUNTER → 2017-08-02 | Outpatient (CLI) | payer MEDICARE, BC ==
--- NOTE | 2017-08-02 13:07 | MR ---
EXAMINATION TYPE: MR lumbar spine wo con DATE OF EXAM: 08/02/2017 COMPARISON: NONE HISTORY: Low back pain CONTRAST: 0 mL intravenous Gadavist. TECHNIQUE: Multiplanar, multisequence images of the lumbar spine were acquired. FINDINGS: L5-S1: Mild right paracentral disc bulge may be present. No exiting nerve root contact or displacemen t is identified. No spinal canal stenosis present. Posterior disc space narrowing is present. L4-L5: Minimal disc bulge may be present. In the sagittal plane there is a subtle suggestion of disc material beyond the endplate of L5 suggesting minimal subligamentous disc herniation. Findings have m ild anterior thecal sac contact without spinal canal stenosis. Neural foramen are patent. L3-L4: No significant disc bulge or disc herniation. No spinal canal stenosis. No foraminal stenosi s. L2-L3: No significant disc bulge or disc herniation. No spinal canal stenosis. No foraminal stenosi s. L1-L2: No significant disc bulge or disc herniation evident. No spinal canal stenosis. No foraminal stenosis. T12-L1: No significant disc bulge or disc herniation. No spinal canal stenosis. No foraminal stenos is. IMPRESSION: 1. Mild right paracentral disc bulge L5-S1 without nerve root contact or spinal canal stenosis. 2. Minimal subligamentous disc extension not excluded L4-L5. No significant thecal sac compression or nerve root contact is evident.
== END | disposition home or self-care (01) ==
LOC: RADMRIMAIN 11:39
PROVIDERS: ATTEND Psychiatry & Neurology Pain Medicine
DX: M51.27 Other intervertebral disc displacement, lumbosacral region (principal); Z88.8 Allergy status to other drugs, medicaments and biological substances
CPT/HCPCS: 72148

== ENCOUNTER 2017-12-18 04:57 | Inpatient (IN) | payer BC, MEDICARE ==
[2017-12-18] MEDS ORDERED: LORazepam 2 MG/ML INJ IV STA ×4 (05:03→07:53)
[2017-12-18 05:32] LABS: Anisocytosis Slight; Basophils # (A) 0.1 k/uL (0-0.2); Basophils % (A) 1 %; Eosinophils # (A) 0.1 k/uL (0-0.7); Eosinophils % (A) 1 %; HCT 38.1 % (39.0-53.0); HGB 12.5 gm/dL (13.0-17.5); Lymphocytes # (A) 0.5 k/uL (1.0-4.8); Lymphocytes % (A) 4 %; MCH 32.6 pg (25.0-35.0); MCHC 32.8 g/dL (31.0-37.0); MCV 99.5 fL (80.0-100.0); Macrocytosis Slight; Mean Platelet Volume 7.4; Monocytes # (A) 0.4 k/uL (0-1.0); Monocytes % (A) 3 %; Neutrophils # (A) 12.4 k/uL (1.3-7.7); Neutrophils % (A) 92 %; Platelet Count 126 k/uL (150-450); RBC 3.82 m/uL (4.30-5.90); RDW 16.4 % (11.5-15.5); WBC 13.5 k/uL (3.8-10.6)
[2017-12-18 05:44] LABS: ALT 18 U/L (21-72); AST 24 U/L (17-59); Albumin 4.1 g/dL (3.5-5.0); Alcohol <10 mg/dL; Alkaline Phosphatase 63 U/L (38-126); Anion Gap 25 mmol/L; Calcium 9.1 mg/dL (8.4-10.2); Carbon Dioxide 23 mmol/L (22-30); Chloride 94 mmol/L (98-107); Glucose 168 mg/dL (74-99); Potassium 5.1 mmol/L (3.5-5.1); Sodium 142 mmol/L (137-145); Total Bilirubin 0.6 mg/dL (0.2-1.3); Total Protein 6.3 g/dL (6.3-8.2)
[2017-12-18 06:18] LABS: Blood Urea Nitrogen 96 mg/dL (9-20)
--- NOTE | 2017-12-18 06:27 | ED ---
Seizure HPI - General Chief Complaint: Seizure Stated Complaint: seizure Time Seen by Provider: 12/18/17 04:59 Source: police, EMS Mode of arrival: EMS Limitations: altered mental status - History of Present Illness Initial Comments: This patient is a 47-year-old man who has history of seizure disorder as well as end-stage renal disease, who presents to be evaluated after he had a seizure. The patient was at home and reportedly had a generalized tonic-clonic seizure. His family phoned EMS who arrived and transported the patient here. He was reportedly postictal and very combative, fighting with the transport. The patient is not able to give any history as she is postictal. The patient's had subsequently related that he had been doing fairly well over the weekend. He went for his usual dialysis session on Saturday. Saturday evening he was not feeling very well and decided not to go to dialysis on Saturday. MD Complaint: seizure Description of Episode: loss of consciousness, tonic-clonic movement Witnessed: yes - by bystander Trauma: No Seizure History: known seizure disorder Place: home Treatments Prior to Arrival: benzodiazepines - Related Data Home Medications Medication Instructions Recorded Confirmed Calcium Acetate [PhosLo] 667 mg PO TID-W/MEALS 11/22/16 12/18/17 Sodium Bicarbonate Tab 650 mg PO BID 11/22/16 12/18/17 Lisinopril [Zestril] 20 mg PO BID 06/14/17 12/18/17 Ergocalciferol (Vitamin D2) 50,000 unit PO Q30D 07/21/17 12/18/17 [Vitamin D2] Methocarbamol [Robaxin] 750 mg PO TID 07/22/17 12/18/17 cloNIDine HCL 0.3 mg PO BID 12/18/17 12/18/17 Previous Rx's Medication Instructions Recorded Aspirin 325 mg PO DAILY #30 tab 07/27/17 Atorvastatin [Lipitor] 20 mg PO DAILY #30 tablet 07/27/17 Melatonin 5 mg PO HS tab 07/27/17 QUEtiapine [SEROquel] 25 mg PO HS #30 tab 07/27/17 Sevelamer [Renvela] 1,600 mg PO TID-W/MEALS #0 tab 07/27/17 amLODIPine [Norvasc] 5 mg PO BID tab 07/27/17 hydrALAZINE HCL [Apresoline] 50 mg PO BID #60 tab 07/27/17 levETIRAcetam [Keppra] 750 mg PO Q12HR #60 tab 07/27/17 Allergies Allergy/AdvReac Type Severity Reaction Status Date / Time No Known Allergies Allergy Verified 12/18/17 10:17 Review of Systems ROS Statement: Those systems with pertinent positive or pertinent negative responses have been documented in the HPI. ROS Other: All systems not noted in ROS Statement are negative. Limitations: ROS unobtainable due to patients medical condition Past Medical History Past Medical History: Hypertension, Musculoskeletal Disorder, Renal Disease, Seizure Disorder Additional Past Medical History / Comment(s): End-stage renal disease on hemodialysis History of Any Multi-Drug Resistant Organisms: None Reported Additional Past Surgical History / Comment(s): fistula for dialysis lithotripsy kidney stents Past Psychological History: No Psychological Hx Reported Smoking Status: Current every day smoker Past Alcohol Use History: None Reported Past Drug Use History: None Reported - Past Family History Father Family Medical History: Cancer, CVA/TIA Mother Family Medical History: CVA/TIA General Exam Limitations: no limitations General appearance: alert, in distress Head exam: Present: atraumatic, normocephalic Eye exam: Present: normal appearance, PERRL, EOMI. Absent: scleral icterus, conjunctival injection ENT exam: Present: normal oropharynx Neck exam: Present: normal inspection, full ROM. Absent: tenderness, meningismus Respiratory exam: Present: normal lung sounds bilaterally. Absent: respiratory distress, wheezes, rales, rhonchi, stridor, chest wall tenderness Cardiovascular Exam: Present: normal rhythm, tachycardia, normal heart sounds. Absent: systolic murmur, diastolic murmur, rubs, gallop GI/Abdominal exam: Present: soft. Absent: distended, tenderness, guarding, rebound, mass Extremities exam: Present: normal inspection, normal capillary refill. Absent: pedal edema, calf tenderness Back exam: Present: normal inspection. Absent: CVA tenderness (R), CVA tenderness (L) Neurological exam: Present: alert, CN II-XII intact. Absent: oriented X3, motor sensory deficit Skin exam: Present: warm, dry, intact, normal color. Absent: rash Course Vital Signs 12/18/17 12/18/17 12/18/17 05:00 05:05 06:30 Temperature 96.9 F L Pulse Rate 131 H 113 H 110 H Pulse Rate [ Miniature Model Maker ] Respiratory 16 16 16 Rate Blood Pressure 234/125 238/119 218/142 O2 Sat by Pulse 96 97 97 Oximetry 12/18/17 12/18/17 12/18/17 07:25 07:55 08:21 Temperature Pulse Rate 124 H 153 H 147 H Pulse Rate [ Miniature Model Maker ] Respiratory 16 22 18 Rate Blood Pressure 219/118 257/120 234/13 O2 Sat by Pulse 92 L 94 L 96 Oximetry 12/18/17 12/18/17 12/18/17 08:50 09:31 10:00 Temperature 97.4 F L Pulse Rate 142 H 149 H 144 H Pulse Rate [ Miniature Model Maker ] Respiratory 18 18 16 Rate Blood Pressure 240/134 236/129 235/138 O2 Sat by Pulse 93 L 93 L 93 L Oximetry 12/18/17 12/18/17 12/18/17 10:10 10:15 13:30 Temperature 101.4 F H Pulse Rate 101 H 95 Pulse Rate [ Miniature Model Maker ] Respiratory 18 16 Rate Blood Pressure 215/107 219/120 O2 Sat by Pulse 93 L 95 Oximetry 12/18/17 12/18/17 12/18/17 14:23 15:07 16:00 Temperature 98.6 F Pulse Rate 130 H 108 H 112 H Pulse Rate [ 112 H Miniature Model Maker ] Respiratory 12 12 18 Rate Blood Pressure 206/117 162/82 134/75 O2 Sat by Pulse 100 99 99 Oximetry 12/18/17 12/18/17 12/18/17 17:00 17:30 17:56 Temperature Pulse Rate 108 H 108 H 108 H Pulse Rate [ 108 H Miniature Model Maker ] Respiratory 18 18 18 Rate Blood Pressure 160/69 178/78 196/91 O2 Sat by Pulse 100 99 100 Oximetry 12/18/17 12/18/17 12/18/17 18:02 18:05 18:35 Temperature 99.8 F H Pulse Rate 114 H 117 H Pulse Rate [ 112 H Miniature Model Maker ] Respiratory 18 18 Rate Blood Pressure 188/84 197/86 O2 Sat by Pulse 100 100 Oximetry 12/18/17 12/18/17 12/18/17 19:07 19:17 19:30 Temperature Pulse Rate 99 101 H Pulse Rate [ 101 H Miniature Model Maker ] Respiratory 22 18 18 Rate Blood Pressure 159/76 188/88 O2 Sat by Pulse 96 97 Oximetry 12/18/17 12/18/17 12/18/17 19:49 20:00 20:26 Temperature Pulse Rate 107 H 108 H 115 H Pulse Rate [ Miniature Model Maker ] Respiratory 18 20 Rate Blood Pressure 226/93 224/94 O2 Sat by Pulse 97 97 Oximetry - Reevaluation(s) Reevaluation #1: 12/18/17 07:50 The patient did have another generalized tonic-clonic seizure which developed here in the ED. He was promptly given Ativan and the seizure was terminated. Patient will be given additional dose of IV Keppra. Reevaluation #2: 12/18/17 07:57 Case discussed with neurology, the patient is due for his morning dose of Keppra and they would like to supplement with an additional dose of Keppra, as his level will be unknown until the send out lab is resulted Medical Decision Making - Medical Decision Making Patient is a 47-year-old man who reportedly had generalized tonic-clonic seizure at home. The patient arrives here in postictal state. The patient is alert but not able to do more at this time then follow simple commands. The patient's initial workup essentially negative. As per the course the patient did have additional tonic-clonic seizure, and case is discussed with the admitting physician as well as with neurology who will see the patient. - Lab Data Result diagrams: 12/22/17 04:41 12/22/17 04:41 Lab Results 12/18/17 12/18/17 12/18/17 Range/Units 05:20 05:20 05:20 WBC 13.5 H (3.8-10.6) k/uL RBC 3.82 L (4.30-5.90) m/uL Hgb 12.5 L (13.0-17.5) gm/dL Hct 38.1 L (39.0-53.0) % MCV 99.5 (80.0-100.0) fL MCH 32.6 (25.0-35.0) pg MCHC 32.8 (31.0-37.0) g/dL RDW 16.4 H (11.5-15.5) % Plt Count 126 L (150-450) k/uL Neutrophils % 92 % Lymphocytes % 4 % Monocytes % 3 % Eosinophils % 1 % Basophils % 1 % Neutrophils # 12.4 H (1.3-7.7) k/uL Lymphocytes # 0.5 L (1.0-4.8) k/uL Monocytes # 0.4 (0-1.0) k/uL Eosinophils # 0.1 (0-0.7) k/uL Basophils # 0.1 (0-0.2) k/uL Anisocytosis Slight Macrocytosis Slight Sodium 142 (137-145) mmol/L Potassium 5.1 (3.5-5.1) mmol/L Chloride 94 L (98-107) mmol/L Carbon Dioxide 23 (22-30) mmol/L Anion Gap 25 mmol/L BUN 96 H* (9-20) mg/dL Creatinine 14.40 H* (0.66-1.25) mg/dL Est GFR (MDRD) Af Amer 4 (>60 ml/min/1.73 sqM) Est GFR (MDRD) Non-Af 4 (>60 ml/min/1.73 sqM) Glucose 168 H (74-99) mg/dL Estimated Ave Glu mg/dL Hemoglobin A1c (4.0-6.0) % Calcium 9.1 (8.4-10.2) mg/dL Total Bilirubin 0.6 (0.2-1.3) mg/dL AST 24 (17-59) U/L ALT 18 L (21-72) U/L Alkaline Phosphatase 63 (38-126) U/L Total Protein 6.3 (6.3-8.2) g/dL Albumin 4.1 (3.5-5.0) g/dL Levetiracetam 48.5 (3.0-60.0) ug/mL Serum Alcohol <10 mg/dL 12/18/17 Range/Units 05:20 WBC (3.8-10.6) k/uL RBC (4.30-5.90) m/uL Hgb (13.0-17.5) gm/dL Hct (39.0-53.0) % MCV (80.0-100.0) fL MCH (25.0-35.0) pg MCHC (31.0-37.0) g/dL RDW (11.5-15.5) % Plt Count (150-450) k/uL Neutrophils % % Lymphocytes % % Monocytes % % Eosinophils % % Basophils % % Neutrophils # (1.3-7.7) k/uL Lymphocytes # (1.0-4.8) k/uL Monocytes # (0-1.0) k/uL Eosinophils # (0-0.7) k/uL Basophils # (0-0.2) k/uL Anisocytosis Macrocytosis Sodium (137-145) mmol/L Potassium (3.5-5.1) mmol/L Chloride (98-107) mmol/L Carbon Dioxide (22-30) mmol/L Anion Gap mmol/L BUN (9-20) mg/dL Creatinine (0.66-1.25) mg/dL Est GFR (MDRD) Af Amer (>60 ml/min/1.73 sqM) Est GFR (MDRD) Non-Af (>60 ml/min/1.73 sqM) Glucose (74-99) mg/dL Estimated Ave Glu mg/dL 77 Hemoglobin A1c 4.3 (4.0-6.0) % Calcium (8.4-10.2) mg/dL Total Bilirubin (0.2-1.3) mg/dL AST (17-59) U/L ALT (21-72) U/L Alkaline Phosphatase (38-126) U/L Total Protein (6.3-8.2) g/dL Albumin (3.5-5.0) g/dL Levetiracetam (3.0-60.0) ug/mL Serum Alcohol mg/dL - EKG Data -: EKG Interpreted by Mo EKG shows normal: sinus rhythm, axis (Normal), intervals (Normal), QRS complexes (Normal) Rate: tachycardia (Rate approximately 123 bpm) Interpretation: nonspecific ST-T wave changes Disposition Clinical Impression: Generalized seizure, Chronic renal failure, Hypertension Disposition: ADMITTED IP TO THIS [facility] Condition: Serious
[2017-12-18] MEDS ORDERED: hydrALAZINE HCL 20 MG/ML 1 ML VIAL IVP STA ×2 (06:34→07:31)
--- NOTE | 2017-12-18 06:59 | CT ---
EXAM: CT Head Without Intravenous Contrast CLINICAL HISTORY: Reason: seizure activity TECHNIQUE: Axial computed tomography images of the head/brain without intravenous contrast. CTDI is 55.4 mGy and DLP is 717.5 mGy-cm. This CT exam was performed using one or more of the following dose reduction techniques: automated exposure control, adjustment of the mA and/or kV according to patient size, and/or use of iterative reconstruction technique. COMPARISON: 07/22/2017 FINDINGS: Brain: Focal hypodensity in the left thalamus, likely relating to a lacunar infarct of uncertain age. Mild periventricular and subcortical white matter hypodensities, with predominant focus in the left frontal lobe. Nonspecific. Cortical involutional changes, age advanced. No hemorrhage. Ventricles: Unremarkable. No ventriculomegaly. Bones/joints: Chronic left lamina papyracea deformity. No acute fracture. Soft tissues: Unremarkable. Vasculature: Atherosclerosis. Sinuses: Unremarkable as visualized. No acute sinusitis. Mastoid air cells: Unremarkable as visualized. No mastoid effusion. IMPRESSION: 1. No acute intracranial hemorrhage or mass effect. 2. Hypodense focus within the left thalamus likely indicating a lacunar infarct, age-indeterminate. Favored to be chronic and likely present on the previous exam, though not as well delineated. 3. Periventricular and subcortical white matter hypodensities are present, also nonspecific, though typically related to chronic small vessel ischemia.
[2017-12-18] MEDS ORDERED: NALOXONE 0.4 MG/ML 1 ML VIAL IV PRN ×2 (07:11→13:31)
[2017-12-18] MEDS ORDERED: ERGOCALCIFEROL 50,000 UNIT CAP PO SCH (07:30)
[2017-12-18] MEDS ORDERED: levETIRAcetam IV 750 MG in SODIUM CHLORIDE 0.9% 100 ML IVPB STA (07:50)
[2017-12-18] MEDS ORDERED: levETIRAcetam IV 1,000 MG in SALINE 1 100ML.BAG IVPB STA (07:57)
[2017-12-18] MEDS ORDERED: cloNIDine HCL 0.1 MG TAB PO SCH (09:00)
[2017-12-18] MEDS ORDERED: METHOCARBAMOL 750 MG TAB PO SCH (09:00)
[2017-12-18] MEDS ORDERED: hydrALAZINE HCL 50 MG TAB PO SCH (09:00)
[2017-12-18] MEDS ORDERED: amLODIPine 5 MG TAB PO SCH (09:00)
[2017-12-18] MEDS ORDERED: cloNIDine HCL 0.2 MG TAB PO STA (09:04)
[2017-12-18] MEDS: SODIUM CHLORIDE 0.9% 1,000 ML IV SCH (09:06)
[2017-12-18] MEDS: CALCIUM ACETATE 667 MG CAP PO SCH ×3 (09:06→17:52)
[2017-12-18] MEDS: SEVELAMER 800 MG TAB PO SCH ×3 (09:07→17:52)
[2017-12-18] MEDS: ATORVASTATIN 20 MG TAB PO SCH (09:07)
[2017-12-18] MEDS: ASPIRIN 325 MG TAB PO SCH (09:07)
[2017-12-18] MEDS: SODIUM BICARBONATE TAB 650 MG TAB PO SCH ×2 (09:08→22:14)
--- NOTE | 2017-12-18 09:22 | XR ---
EXAMINATION TYPE: XR chest 1V portable DATE OF EXAM: 12/18/2017 Comparison: 07/24/2017 Clinical History: 47-year-old male Pain Findings: Heart upper limits of normal in size. Aorta within normal limits. Mild interstitial prominence is unc hanged. Strandy atelectasis in the lower lungs. No consolidation or pleural effusion. Impression: Chronic changes without acute cardiopulmonary process.
[2017-12-18] MEDS ORDERED: cloNIDine 0.2 MG/24HR PATCH 1 PATCH PATCH TRANSDERM STA (09:24)
[2017-12-18] MEDS ORDERED: LABETALOL 5 MG/ML VIAL MDV IVP STA ×4 (09:25→20:16)
[2017-12-18] MEDS: LISINOPRIL 20 MG TAB PO SCH ×2 (09:27→22:14)
[2017-12-18] MEDS: NICOTINE 14MG/24HR PATCH TRANSDERM SCH (09:58)
[2017-12-18] MEDS ORDERED: MIDAZOLAM 2 MG/2 ML VIAL IV ONE (10:27)
[2017-12-18] MEDS ORDERED: GELATIN SPONGE,ABSORB (SMALL) 1 EACH SPONGE ONE (12:00)
[2017-12-18] MEDS ORDERED: THIAMINE 100 MG/ML 2 ML VIAL IM STA (12:27)
[2017-12-18] MEDS ORDERED: LORazepam 2 MG/ML INJ IV PRN ×3 (12:27→17:07)
[2017-12-18] MEDS: LORazepam 2 MG/ML INJ IV PRN ×2 (13:11→13:51)
[2017-12-18] MEDS ORDERED: EMPTY BAG 1 BAG with PROPOFOL 1,000 MG IV SCH (13:15)
--- NOTE | 2017-12-18 13:22 | P.NPCON ---
History of Present Illness - Reason for Consult end stage renal disease - History of Present Illness Reason for consultation: End-stage renal disease History of present illness: Patient is a 47-year-old male seen in renal consultation for end-stage renal disease. He is maintained on hemodialysis on a Saturday schedule via AV fistula. Patient missed his dialysis treatment yesterday due to not feeling well. His last treatment was on Saturday. Patient presented to the hospital after the family noticed a generalized tonic-clonic seizure. Patient was quite combative when brought by the EMS. He's had 4 seizures while in the ER. He subsequently became quite apathetic and is currently being intubated. He is maintained on CIWA protocol and also received a dose of Keppra. Patient does have history of seizures and follows with neurology as an outpatient. His blood pressure has been in the systolic 200s since admission despite receiving antihypertensives including labetalol and hydralazine. Patient also has a history of lacunar stroke in the past. His CT of the brain did not reveal any acute process. Chest x-ray did not suggest fluid overload. Patient is not able to provide history at this time and no family is present at bedside. Vital signs are stable. General: The patient appeared well nourished and normally developed. HEENT: Head exam is unremarkable. Neck is without jugular venous distension. LUNGS: Lungs are clear to auscultation and percussion. Breath sounds decreased. HEART: Rate and Rhythm are regular. First and second heart sounds normal. No murmurs, rubs or gallops. ABDOMEN: Abdominal exam reveals normal bowel sounds. Non-tender and non- distended. No evidence of peritonitis. EXTREMITITES: No clubbing, cyanosis, or edema. 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 History of Any Multi-Drug Resistant Organisms: None Reported Past Surgical History: Orthopedic Surgery Additional Past Surgical History / Comment(s): R arm AV fistula for dialysis, cystoscopies/ renal stents, double J catheter, lithotripsy, ORIF R ankle fracture, colonoscopy. Past Anesthesia/Blood Transfusion Reactions: No Reported Reaction Smoking Status: Current every day smoker - Past Family History Father Family Medical History: Cancer, CVA/TIA Additional Family Medical History / Comment(s): Father had lymphoma. He had a CVA Mother Family Medical History: CVA/TIA Additional Family Medical History / Comment(s): Mother had a CVA. Medications and Allergies Home Medications Medication Instructions Recorded Confirmed Type Calcium Acetate [PhosLo] 667 mg PO TID-W/MEALS 11/22/16 12/18/17 History Sodium Bicarbonate Tab 650 mg PO BID 11/22/16 12/18/17 History Lisinopril [Zestril] 20 mg PO BID 06/14/17 12/18/17 History Ergocalciferol (Vitamin D2) 50,000 unit PO Q30D 07/21/17 12/18/17 History [Vitamin D2] Methocarbamol [Robaxin] 750 mg PO TID 07/22/17 12/18/17 History Aspirin 325 mg PO DAILY #30 tab 07/27/17 12/18/17 Rx Atorvastatin [Lipitor] 20 mg PO DAILY #30 tablet 07/27/17 12/18/17 Rx Melatonin 5 mg PO HS tab 07/27/17 12/18/17 Rx QUEtiapine [SEROquel] 25 mg PO HS #30 tab 07/27/17 12/18/17 Rx Sevelamer [Renvela] 1,600 mg PO TID-W/MEALS #0 tab 07/27/17 12/18/17 Rx amLODIPine [Norvasc] 5 mg PO BID tab 07/27/17 12/18/17 Rx hydrALAZINE HCL [Apresoline] 50 mg PO BID #60 tab 07/27/17 12/18/17 Rx levETIRAcetam [Keppra] 750 mg PO Q12HR #60 tab 07/27/17 12/18/17 Rx cloNIDine HCL 0.3 mg PO BID 12/18/17 12/18/17 History Allergies Allergy/AdvReac Type Severity Reaction Status Date / Time No Known Allergies Allergy Verified 12/18/17 10:17 Physical Exam Vitals: Vital Signs Temp Pulse Resp BP Pulse Ox 12/18/17 10:15 95 16 219/120 95 12/18/17 10:10 101 H 18 215/107 93 L 12/18/17 10:00 144 H 16 235/138 93 L 12/18/17 09:31 149 H 18 236/129 93 L 12/18/17 08:50 97.4 F L 142 H 18 240/134 93 L 12/18/17 08:21 147 H 18 234/13 96 12/18/17 07:55 153 H 22 257/120 94 L 12/18/17 07:25 124 H 16 219/118 92 L 12/18/17 06:30 110 H 16 218/142 97 12/18/17 05:05 113 H 16 238/119 97 12/18/17 05:00 96.9 F L 131 H 16 234/125 96 Intake and Output 12/17/17 12/18/17 12/18/17 22:59 06:59 14:59 Other: Weight 72.575 kg Results - Lab Results Most recent lab results Calcium 9.1 mg/dL (8.4-10.2) 12/18/17 05:20 12/18/17 05:20 12/18/17 05:20 Assessment and Plan Plan: Assessment: #1. End-stage renal disease maintained on hemodialysis on a Saturday schedule via AV fistula. 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 #2. Seizures. #3. History of lacunar stroke. #4. Hypertension with chronic kidney disease. Currently uncontrolled. #5. Chronic kidney disease mineral bone disease. Plan: Hemodialysis today and tomorrow per his outpatient schedule. Check phosphorus level. Start hydralazine 10 mg IV every 4 hours. Add labetalol 10 mg every 4 hours if needed for systolic blood pressure greater than 160. Patient to be transferred to the intensive care unit. Neurology recommendations pending. Thank you for the consultation. I will continue to follow the patient with you during his hospital stay.
[2017-12-18] MEDS ORDERED: ACETAMINOPHEN TAB 325 MG TAB PO PRN (13:31)
[2017-12-18] MEDS ORDERED: IPRATROPIUM-ALBUTEROL 3 ML NEB INHALATION PRN (13:31)
[2017-12-18] MEDS ORDERED: ACETAMINOPHEN IV (For NPO) 1,000 MG in EMPTY BAG 1 BAG IVPB ONE (13:54)
[2017-12-18] MEDS ORDERED: ACETAMINOPHEN IV (For NPO) 1,000 MG in EMPTY BAG 1 BAG IVPB PRN (13:55)
--- NOTE | 2017-12-18 14:03 | XR ---
EXAMINATION TYPE: XR chest 1V portable DATE OF EXAM: 12/18/2017 CLINICAL HISTORY: Difficulty breathing at the be intubated. TECHNIQUE: Single AP portable supine view of the chest is obtained. COMPARISON: Chest x-ray from earlier today FINDINGS: There is new endotracheal tube with tip at alyssa, , advise pulling back 4 to 5 cm to be i n more ideal position. There is new orogastric tube projecting below left hemidiaphragm. There is stable mild cardiomegaly with worsening central vascular congestion and developing right bas ilar opacity. No sizable pneumothorax is seen. Osseous structures are intact. IMPRESSION: 1. New endotracheal tube is at level of alyssa, recommend pulling back 4 to 5 cm to be in more ideal position. 2. Consider CHF exacerbation as there is mild cardiomegaly with new mild to moderate central vascular congestion. Developing right basilar infiltrate also needs to BE considered. Progress study advised. Findings of low positioned endotracheal tube called to emergency room at time of dictation.
[2017-12-18 14:19] LABS: Appearance,Urine Clear (Clear); Bilirubin,Urine Negative (Negative); Blood,Urine Moderate (Negative); Color,Urine Light Yellow; Glucose,Urine (UA) 3+ (Negative); Ketones,Urine Negative (Negative); Leukocyte Esterase,Urine Negative (Negative); Nitrite,Urine Negative (Negative); Protein,Urine 3+ (Negative); RBC,Urine 6 /hpf (0-5); Specific Gravity,Urine 1.005 (1.001-1.035); Sperm,Urine Rare /hpf; Urobilinogen,Urine <2.0 mg/dL (<2.0); WBC,Urine 1 /hpf (0-5)
[2017-12-18] MEDS: hydrALAZINE HCL 20 MG/ML 1 ML VIAL IVP SCH ×4 (14:22→23:55)
[2017-12-18 14:25] LABS: ABG Base Excess -0.2 mmol/L; ABG HCO3 27 mmol/L (21-25); ABG Oxygen Saturation 98.8 % (94-97); ABG PCO2 62 mmHg (35-45); ABG PH 7.25 (7.35-7.45); ABG PO2 171 mmHg (83-108); ABG TCO2 29 mmol/L (19-24)
[2017-12-18] MEDS ORDERED: LORazepam Vial 40 MG in DEXTROSE 5% IN WATER 80 ML IV SCH ×2 (14:30)
[2017-12-18 14:43] LABS: Amphetamine Screen,Urine Not Detected (NotDetected); Barbiturate Screen,Urine Not Detected (NotDetected); Benzodiazepines Screen,Urine Not Detected (NotDetected); Cocaine Screen,Urine Not Detected (NotDetected); Methadone Screen, Urine Not Detected (NotDetected); Opiate Screen,Urine Not Detected (NotDetected); Oxycodone Screen, Urine Not Detected (NotDetected); Phencyclidine Screen,Urine Not Detected (NotDetected); Tricyclic Antidepressant,Urine Not Detected (NotDetected); Urn Cannabinoid Scrn Not Detected (NotDetected)
[2017-12-18] MEDS: PANTOPRAZOLE 40 MG/10 ML VIAL IV SCH (15:05)
[2017-12-18 15:08] LABS: Glucose,Whole Blood 114 mg/dL (75-99)
--- NOTE | 2017-12-18 16:08 | P.HPIM ---
History of Present Illness H&P Date: 12/18/17 Chief Complaint: Seizures fever, on dialysis This is a 47-year-old male patient of Dr. Jaylen Madrid past medical history of end-stage renal disease on hemodialysis 3 times weekly, hypertension, seizure disorder. Patient had on July 06-2016 for TIA and was emergency room at that time for emergency center for post ictal state and hypertensive emergency by EMS with seizure activityand was seen in consultation by Dr. Viveros. . He was again sent into the emergency room on 12/18/2017 secondary to prolonged post ictal status, there is concern for at the emergency room with active state of alcohol withdrawal. patient normally goes for hemodialysis Saturday, however he missed his scheduled dialysis yesterday Saturday. Compliance medications are unknown, urine drug screen not done, alcohol level less than 10 Patient comes in with significant elevated blood pressure systolic of 257/126 highest blood pressure along with agitation tremors, he had while being detained at the emergency room waiting for ICU bed patient had 6 seizures in the emergency room despite Ativan IV pushes, he had to be prophylactically intubated secondary to status epilepticus, and required Ativan drip secondary to uncontrolled seizures despite Ativan CIWA protocol. Patient currently is on IV Keppra 1 g, propofol, and would be sent to ICU, Dr. Park on consult, and Dr. Malone on consult. According to ER nurses, patient has a large emesis while being intubated Patient patient was febrile upon ER admission, flu test was requested, patient was given labetalol 40 mg IV,, for the elevated heart rate of 150, Catapres patch 0.2 and hydralazine 10 mg every 4 hours. Shahrzad spoken to the for additional info, he has baseline control of bp however it gets this high with sbp over 200 if pain from cervical stenosis is not under control, he has seen 2 neurosugeon for cervical stenosis and has adviced that surgery will increase risk of surgical failures and recommended water physiotherapy. last ILS cervical area was with dr cohen in 08/2107. he takes tylenol 3 sparingly, he had an original rx in 07/2017 which hasn't been used up on its entirety. denies any alcohol dependency, not even a closet drinker. During his last admission in July 2017 for seizures and hypertensive urgency, he had an evolving thalamic infarct, in July 2017, imaging studies included There was concern for cervical spondylosis cervcial stenosis and recommended MRI of the cervical spine and orthopedic consult. Carotid duplex showed no stenosis. Echocardiogram revealed EF of 55-60%, no pulmonary hypertension, moderate concentric left hypertrophy, trace mitral regurgitation, trace tricuspid regurgitation. EEG of the brain showed moderate encephalopathy with no epileptiform waves l Review of Systems ROS unobtainable: due to mental status (Intubated) Respiratory: Reports as per HPI Gastrointestinal: Reports as per HPI Genitourinary: Reports as per HPI Musculoskeletal: Reports as per HPI Integumentary: Reports as per HPI Neurological: Reports as per HPI Endocrine: Reports as per HPI Hematologic/Lymphatic: Reports as per HPI Past Medical History Past Medical History: COPD, CVA/TIA, Eye Disorder, Hyperlipidemia, Hypertension , Musculoskeletal Disorder, Pneumonia, Renal Disease, Seizure Disorder Additional Past Medical History / Comment(s): End-stage renal disease on hemodialysis with last dialysis on 12/14/16-missed Tuesdays, nephrolithiasis, seizures began about 1 year ago, 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 History of Any Multi-Drug Resistant Organisms: None Reported Past Surgical History: Orthopedic Surgery Additional Past Surgical History / Comment(s): R arm AV fistula for dialysis, cystoscopies/ renal stents, double J catheter, lithotripsy, ORIF R ankle fracture, colonoscopy. Past Anesthesia/Blood Transfusion Reactions: No Reported Reaction Smoking Status: Current every day smoker - Past Family History Father Family Medical History: Cancer, CVA/TIA Additional Family Medical History / Comment(s): Father had lymphoma. He had a CVA Mother Family Medical History: CVA/TIA Additional Family Medical History / Comment(s): Mother had a CVA. Medications and Allergies Home Medications Medication Instructions Recorded Confirmed Type Calcium Acetate [PhosLo] 667 mg PO TID-W/MEALS 11/22/16 12/18/17 History Sodium Bicarbonate Tab 650 mg PO BID 11/22/16 12/18/17 History Lisinopril [Zestril] 20 mg PO BID 06/14/17 12/18/17 History Ergocalciferol (Vitamin D2) 50,000 unit PO Q30D 07/21/17 12/18/17 History [Vitamin D2] Methocarbamol [Robaxin] 750 mg PO TID 07/22/17 12/18/17 History Aspirin 325 mg PO DAILY #30 tab 07/27/17 12/18/17 Rx Atorvastatin [Lipitor] 20 mg PO DAILY #30 tablet 07/27/17 12/18/17 Rx Melatonin 5 mg PO HS tab 07/27/17 12/18/17 Rx QUEtiapine [SEROquel] 25 mg PO HS #30 tab 07/27/17 12/18/17 Rx Sevelamer [Renvela] 1,600 mg PO TID-W/MEALS #0 tab 07/27/17 12/18/17 Rx amLODIPine [Norvasc] 5 mg PO BID tab 07/27/17 12/18/17 Rx hydrALAZINE HCL [Apresoline] 50 mg PO BID #60 tab 07/27/17 12/18/17 Rx levETIRAcetam [Keppra] 750 mg PO Q12HR #60 tab 07/27/17 12/18/17 Rx cloNIDine HCL 0.3 mg PO BID 12/18/17 12/18/17 History Allergies Allergy/AdvReac Type Severity Reaction Status Date / Time No Known Allergies Allergy Verified 12/18/17 10:17 Physical Exam Vitals: Vital Signs Temp Pulse Resp BP Pulse Ox 12/18/17 10:15 95 16 219/120 95 12/18/17 10:10 101 H 18 215/107 93 L 12/18/17 10:00 144 H 16 235/138 93 L 12/18/17 09:31 149 H 18 236/129 93 L 12/18/17 08:50 97.4 F L 142 H 18 240/134 93 L 12/18/17 08:21 147 H 18 234/13 96 12/18/17 07:55 153 H 22 257/120 94 L 12/18/17 07:25 124 H 16 219/118 92 L 12/18/17 06:30 110 H 16 218/142 97 12/18/17 05:05 113 H 16 238/119 97 12/18/17 05:00 96.9 F L 131 H 16 234/125 96 Intake and Output 12/17/17 12/18/17 12/18/17 22:59 06:59 14:59 Other: Weight 72.575 kg - Constitutional General appearance: average body habitus, cooperative, disheveled - EENT Eyes: anicteric sclerae, PERRLA - Respiratory Respiratory: bilateral: CTA, diminished - Cardiovascular Rhythm: regular Abnormal Heart Sounds: systolic murmur (Tachycardic) - Gastrointestinal General gastrointestinal: soft - Integumentary Integumentary: decreased turgor, normal - Psychiatric Intubated and sedated Results CBC & Chem 7: 12/18/17 05:20 12/18/17 05:20 Labs: Abnormal Lab Results - Last 24 Hours (Table) 12/18/17 12/18/17 12/18/17 Range/Units 05:20 05:20 13:36 WBC 13.5 H (3.8-10.6) k/uL RBC 3.82 L (4.30-5.90) m/uL Hgb 12.5 L (13.0-17.5) gm/dL Hct 38.1 L (39.0-53.0) % RDW 16.4 H (11.5-15.5) % Plt Count 126 L (150-450) k/uL Neutrophils # 12.4 H (1.3-7.7) k/uL Lymphocytes # 0.5 L (1.0-4.8) k/uL Chloride 94 L (98-107) mmol/L BUN 96 H* (9-20) mg/dL Creatinine 14.40 H* (0.66-1.25) mg/dL Glucose 168 H (74-99) mg/dL ALT 18 L (21-72) U/L Urine Protein 3+ H (Negative) Urine Glucose (UA) 3+ H (Negative) Urine Blood Moderate H (Negative) Urine RBC 6 H (0-5) /hpf Laboratory Results WBC 13.5 k/uL (3.8-10.6) H 12/18/17 05:20 RBC 3.82 m/uL (4.30-5.90) L 12/18/17 05:20 Hgb 12.5 gm/dL (13.0-17.5) L 12/18/17 05:20 Hct 38.1 % (39.0-53.0) L 12/18/17 05:20 MCV 99.5 fL (80.0-100.0) 12/18/17 05:20 MCH 32.6 pg (25.0-35.0) 12/18/17 05:20 MCHC 32.8 g/dL (31.0-37.0) 12/18/17 05:20 RDW 16.4 % (11.5-15.5) H 12/18/17 05:20 Plt Count 126 k/uL (150-450) L 12/18/17 05:20 Neutrophils % 92 % 12/18/17 05:20 Lymphocytes % 4 % 12/18/17 05:20 Monocytes % 3 % 12/18/17 05:20 Eosinophils % 1 % 12/18/17 05:20 Basophils % 1 % 12/18/17 05:20 Neutrophils # 12.4 k/uL (1.3-7.7) H 12/18/17 05:20 Lymphocytes # 0.5 k/uL (1.0-4.8) L 12/18/17 05:20 Monocytes # 0.4 k/uL (0-1.0) 12/18/17 05:20 Eosinophils # 0.1 k/uL (0-0.7) 12/18/17 05:20 Basophils # 0.1 k/uL (0-0.2) 12/18/17 05:20 Anisocytosis Slight 12/18/17 05:20 Macrocytosis Slight 12/18/17 05:20 Sample Site Left Radial 12/18/17 14:17 ABG pH 7.25 (7.35-7.45) L 12/18/17 14:17 ABG pCO2 62 mmHg (35-45) H 12/18/17 14:17 ABG pO2 171 mmHg (83-108) H 12/18/17 14:17 ABG HCO3 27 mmol/L (21-25) H 12/18/17 14:17 ABG Total CO2 29 mmol/L (19-24) H 12/18/17 14:17 ABG O2 Saturation 98.8 % (94-97) H 12/18/17 14:17 ABG Base Excess -0.2 mmol/L 12/18/17 14:17 José Miguel Test Yes 12/18/17 14:17 FiO2 100 % 12/18/17 14:17 Sodium 142 mmol/L (137-145) 12/18/17 05:20 Potassium 5.1 mmol/L (3.5-5.1) 12/18/17 05:20 Chloride 94 mmol/L (98-107) L 12/18/17 05:20 Carbon Dioxide 23 mmol/L (22-30) 12/18/17 05:20 Anion Gap 25 mmol/L 12/18/17 05:20 BUN 96 mg/dL (9-20) H* 12/18/17 05:20 Creatinine 14.40 mg/dL (0.66-1.25) H* 12/18/17 05:20 Est GFR (MDRD) Af Amer 4 (>60 ml/min/1.73 sqM) 12/18/17 05:20 Est GFR (MDRD) Non-Af 4 (>60 ml/min/1.73 sqM) 12/18/17 05:20 Glucose 168 mg/dL (74-99) H 12/18/17 05:20 POC Glucose (mg/dL) 114 mg/dL (75-99) H 12/18/17 15:05 POC Glu Psychological Aide Rosa Isela Woodruff 12/18/17 15:05 Calcium 9.1 mg/dL (8.4-10.2) 12/18/17 05:20 Total Bilirubin 0.6 mg/dL (0.2-1.3) 12/18/17 05:20 AST 24 U/L (17-59) 12/18/17 05:20 ALT 18 U/L (21-72) L 12/18/17 05:20 Alkaline Phosphatase 63 U/L (38-126) 12/18/17 05:20 Total Protein 6.3 g/dL (6.3-8.2) 12/18/17 05:20 Albumin 4.1 g/dL (3.5-5.0) 12/18/17 05:20 Urine Color Light Yellow 12/18/17 13:36 Urine Appearance Clear (Clear) 12/18/17 13:36 Urine pH 8.0 (5.0-8.0) 12/18/17 13:36 Ur Specific [place] 1.005 (1.001-1.035) 12/18/17 13:36 Urine Protein 3+ (Negative) H 12/18/17 13:36 Urine Glucose (UA) 3+ (Negative) H 12/18/17 13:36 Urine Ketones Negative (Negative) 12/18/17 13:36 Urine Blood Moderate (Negative) H 12/18/17 13:36 Urine Nitrite Negative (Negative) 12/18/17 13:36 Urine Bilirubin Negative (Negative) 12/18/17 13:36 Urine Urobilinogen <2.0 mg/dL (<2.0) 12/18/17 13:36 Ur Leukocyte Esterase Negative (Negative) 12/18/17 13:36 Urine RBC 6 /hpf (0-5) H 12/18/17 13:36 Urine WBC 1 /hpf (0-5) 12/18/17 13:36 Urine Sperm Rare /hpf (None) 12/18/17 13:36 Urine Opiates Screen Not Detected (NotDetected) 12/18/17 13:36 Ur Oxycodone Screen Not Detected (NotDetected) 12/18/17 13:36 Urine Methadone Screen Not Detected (NotDetected) 12/18/17 13:36 Ur Propoxyphene Screen Not Detected (NotDetected) 12/18/17 13:36 Ur Barbiturates Screen Not Detected (NotDetected) 12/18/17 13:36 U Tricyclic Antidepress Not Detected (NotDetected) 12/18/17 13:36 Ur Phencyclidine Scrn Not Detected (NotDetected) 12/18/17 13:36 Ur Amphetamines Screen Not Detected (NotDetected) 12/18/17 13:36 U Methamphetamines Scrn Not Detected (NotDetected) 12/18/17 13:36 U Benzodiazepines Scrn Not Detected (NotDetected) 12/18/17 13:36 Urine Cocaine Screen Not Detected (NotDetected) 12/18/17 13:36 U Marijuana (THC) Screen Not Detected (NotDetected) 12/18/17 13:36 Serum Alcohol <10 mg/dL 12/18/17 05:20 Influenza Type A RNA Not Detected (Not Detectd) 12/18/17 14:57 Influenza Type B (PCR) Not Detected (Not Detectd) 12/18/17 14:57 Thrombosis Risk Factor Assmnt - DVT/VTE Prophylaxis DVT/VTE Prophylaxis: Pharmacologic Prophylaxis ordered - Choose All That Apply Any of the Below Risk Factors Present?: Yes Each Factor Represents 1 point: Abnormal pulmonary function (COPD), Age 41-60 years, Medical pt on bed rest Other Risk Factors: Yes Each Risk Factor Represents 2 Points: Patient confined to bed Other congenital or acquired thrombophilia - If yes, enter type in comment: No Thrombosis Risk Factor Assessment Total Risk Factor Score: 5 Thrombosis Risk Factor Assessment Level: High Risk Assessment and Plan Plan: 1. Status epilepticus with known history off seizures after his CVA, prior history off thalamus infarct, in July 2017. Patient currently is intubated on 12/18/2017 at 1300 hrs. for prophylactic reasons, has multiple seizures while in the emergency room, patient requires Keppra IV 1 g given him a patient was on maintenance 750 mg every 12 hours IV, nephrology to see neurology to see Felice. 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 Obtain Keppra levels. Monitor for aspirate the events, patient was febrile upon ER admission , influenza test negative urine drug screen negative alcohol level less than 10 2. Hypertensive emergency, possibly secondary to uncontrolled pain from cervical stenosis with his underlying renovascular hypertension. patient currently is on Catapres 0.2 mg, labetalol 10 mg every 4 hours IV with renal dosing and hydralazine 10 mg every 4 hours when necessary for systolic blood pressure over 160Currently on Norvasc 5 mg twice daily, Catapres 0.3 mg twice daily, hydralazine 50 mg twice daily scheduled and IV push as needed, lisinopril 20 mg twice daily. will monitor and eval for pheochromocytoma. morphine for pain 3. History of left thalamus stroke July 2017. 325 mg rectally or NG/ G- tube 4 CK D stage v for with respiratory acidosis secondary to seizures, end-stage renal disease on hemodialysis Saturday, one missed treatments, Dr. Berg on consult 5. Concern for alcohol withdrawals, patient currently is on CIWA protocol 6. Acute hypoxic respiratory failure secondary seizures to rule out overload from missed dialysis treatments, seizure activity Dr. Doss is on consult. Patient has been successfully intubated on 12/18/2017 at 1300 hrs at the emergency room. 7 End-stage renal disease and lactic acidosis on hemodialysis presenting with fluid overload secondary to noncompliance and missing 2 dialysis treatments. Patient is currently undergoing dialysis in the emergency center. Dr. Rod is on consult. 8 Chronic cervical pain cervical stenosis Patient had u pain management injections with Dr. Cohen in the past, last one 08/2017, has seen neurosurgeon in [place], no current recommendation surgery, [place] in [place] neuro[place], who advised high risk for failures to undergo cervical spine surgery. rx morphine iv prn while intubated, once stabilized with seizures , will add gabapentin 9 Tobacco use and dependence and recently discharged on nicotine patch. Secondary to mentation from seizures and obtundation from that support, unknown status for tobacco use 10. Chronic thrombocytopenia. Monitor. 11. Insomnia, chronic sleep deprivation f=secondary to uncontrolled cervical stenosis pain, sleep buddhist is important for seizure control as well. once extubated will readdress this issue. currently on propofol on vent 12. Acute respiratory acidosis with chronic combined respiratory/metabolic compensation 12 DVT prophylaxis. KP hose and SCDs. 13 GI prophylaxis. Pepcid IV discharge planning to be determined Prognosis guarded
[2017-12-18] MEDS: PROPOFOL 1,000 MG in EMPTY BAG 1 BAG IV SCH ×3 (16:30→22:22)
[2017-12-18] MEDS: PIPERACILLIN-TAZOBACTAM 3.375 GM in DEXTROSE/WATER 1 50ML.BAG IVPB SCH (16:52)
[2017-12-18] MEDS ORDERED: THIAMINE 100 MG TAB PO SCH (17:00)
--- NOTE | 2017-12-18 17:23 | P.CNPUL ---
History of Present Illness Consult date: 12/18/17 Requesting physician: Jacqueline English Reason for consult: other Chief complaint: Acute respiratory failure, status epilepticus, ESRD, altered mentation History of present illness: Jose is a 47-year-old white male patient that was brought to the emergency department by EMS on 12/18/2017 at 0457 in the morning for complaints of generalized tonic-clonic seizures. Patient's family had called 911, patient was reportedly postictal, with altered mentation, very combative, fighting with the neon installer. Patient's has reportedly told the ER staff that the patient had not been feeling good for last couple of days, and missed his dialysis on Saturday. Patient is known to have ESRD on hemodialysis, and his usual days are Tuesdays and Saturdays. Per , patient did have his usual Saturday hemodialysis. It is unknown as to what type of symptoms he was having when he was not feeling good. In the emergency room patient had 4 more episodes of grand mal seizures lasting 1-2 minutes. He was given the loading dose of IV Keppra up thousand milligrams. He does have an underlying seizure disorder, he is on maintenance Keppra 750 mg twice a day, is unclear at this time if the patient is compliant with his medications. He was previously hospitalized in July for status epilepticus, acute hypoxic respiratory failure secondary to pulmonary edema, requiring intubation and mechanical ventilation. During that admission patient was found to have a thalamic infarct. CT head on 12/18/2017 showed no acute intracranial hemorrhage or mass effect. There was a hypodense focus within the left thalamus likely indicating a lacunar infarct, age indeterminate. This finding was felt to be chronic and present on the previous exam on 07/22/2017, although not as well delineated. Patient's twelve-lead EKG showed sinus tachycardia with a rate of 123 BPM. Chest x-ray showed chronic changes without any acute cardiopulmonary process. We were consulted in regards to patient's altered mentation and the possibility of requiring intubation and mechanical ventilation in regards to his post ictal status and inability to protect his airway. Upon my evaluation, patient was seen in the emergency room, resting on the gurney, unresponsive to verbal or painful stimuli. Initially he was breathing spontaneously, the head of the bed was elevated for aspiration precautions. He was given a few rounds of lorazepam IV push for seizure activity earlier in the day. Patient was noted to be very hypertensive, his systolic blood pressures have been ranging in the 192-235 mm/Hg, and his diastolic has been ranging from 100-138 mmHg. his pulse ox was 95 on 4 L per nasal cannula, patient does not have an gag reflex, some oral secretions were suctioned out of his oropharynx. Shortly afterward patient became apneic, started seizing, patient was ventilated per Ambu bag, and emergently intubated by the ER physician. We will put him on vent settings of assist control with a rate of 12, tidal vital 400, FiO2 of 100% and the PEEP of 5. Patient was seen in consultation by nephrology, who is planning on dialyzing the patient today and tomorrow. They had also made recommendations for blood pressure control. Patient will be transferred to the intensive care once a bed is available. Review of Systems Patient is unresponsive, post ictal. Information was obtained from the nursing staff as well as nursing staff report All systems: negative Constitutional: Denies chills, Denies fever Eyes: denies blurred vision, denies pain Ears, nose, mouth and throat: Denies headache, Denies sore throat Cardiovascular: Denies chest pain, Denies shortness of breath Respiratory: Denies cough Gastrointestinal: Denies abdominal pain, Denies diarrhea, Denies nausea, Denies vomiting Musculoskeletal: Denies myalgias Integumentary: Denies pruritus, Denies rash Neurological: Denies numbness, Denies weakness Psychiatric: Denies anxiety, Denies depression Endocrine: Denies fatigue, Denies weight change Past Medical History Past Medical History: COPD, CVA/TIA, Eye Disorder, Hyperlipidemia, Hypertension , Musculoskeletal Disorder, Pneumonia, Renal Disease, Seizure Disorder Additional Past Medical History / Comment(s): End-stage renal disease on hemodialysis with last dialysis on 12/14/16-missed Tuesdays, nephrolithiasis, seizures began about 1 year ago, 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 History of Any Multi-Drug Resistant Organisms: None Reported Past Surgical History: Orthopedic Surgery Additional Past Surgical History / Comment(s): R arm AV fistula for dialysis, cystoscopies/ renal stents, double J catheter, lithotripsy, ORIF R ankle fracture, colonoscopy. Past Anesthesia/Blood Transfusion Reactions: No Reported Reaction Smoking Status: Current every day smoker - Past Family History Father Family Medical History: Cancer, CVA/TIA Additional Family Medical History / Comment(s): Father had lymphoma. He had a CVA Mother Family Medical History: CVA/TIA Additional Family Medical History / Comment(s): Mother had a CVA. Medications and Allergies Home Medications Medication Instructions Recorded Confirmed Type Calcium Acetate [PhosLo] 667 mg PO TID-W/MEALS 11/22/16 12/18/17 History Sodium Bicarbonate Tab 650 mg PO BID 11/22/16 12/18/17 History Lisinopril [Zestril] 20 mg PO BID 06/14/17 12/18/17 History Ergocalciferol (Vitamin D2) 50,000 unit PO Q30D 07/21/17 12/18/17 History [Vitamin D2] Methocarbamol [Robaxin] 750 mg PO TID 07/22/17 12/18/17 History Aspirin 325 mg PO DAILY #30 tab 07/27/17 12/18/17 Rx Atorvastatin [Lipitor] 20 mg PO DAILY #30 tablet 07/27/17 12/18/17 Rx Melatonin 5 mg PO HS tab 07/27/17 12/18/17 Rx QUEtiapine [SEROquel] 25 mg PO HS #30 tab 07/27/17 12/18/17 Rx Sevelamer [Renvela] 1,600 mg PO TID-W/MEALS #0 tab 07/27/17 12/18/17 Rx amLODIPine [Norvasc] 5 mg PO BID tab 07/27/17 12/18/17 Rx hydrALAZINE HCL [Apresoline] 50 mg PO BID #60 tab 07/27/17 12/18/17 Rx levETIRAcetam [Keppra] 750 mg PO Q12HR #60 tab 07/27/17 12/18/17 Rx cloNIDine HCL 0.3 mg PO BID 12/18/17 12/18/17 History Allergies Allergy/AdvReac Type Severity Reaction Status Date / Time No Known Allergies Allergy Verified 12/18/17 10:17 Physical Exam Vitals: Vital Signs Temp Pulse Resp BP Pulse Ox 01/31/18 10:15 95 16 219/120 95 12/18/17 10:10 101 H 18 215/107 93 L 12/18/17 10:00 144 H 16 235/138 93 L 12/18/17 09:31 149 H 18 236/129 93 L 12/18/17 08:50 97.4 F L 142 H 18 240/134 93 L 12/18/17 08:21 147 H 18 234/13 96 12/18/17 07:55 153 H 22 257/120 94 L 12/18/17 07:25 124 H 16 219/118 92 L 12/18/17 06:30 110 H 16 218/142 97 12/18/17 05:05 113 H 16 238/119 97 12/18/17 05:00 96.9 F L 131 H 16 234/125 96 Intake and Output 12/17/17 12/18/17 12/18/17 22:59 06:59 14:59 Other: Weight 72.575 kg - Constitutional 47-year-old white male, resting on the gurney, unresponsive to painful stimuli. Initially at the time of evaluation, was breathing spontaneously, subsequently became apneic, and was emergently intubated General appearance: average body habitus - EENT Patient's pupils are 5 mm, dilated, sluggishly reactive to light. Patient has a deviated gaze downward. There is evidence of subconjunctival hemorrhage in the corner of left eye Eyes: abnormal pupil ENT: NA/AT, normal oropharynx Ears: bilateral: normal - Neck Neck: no lymphadenopathy Carotids: bilateral: upstroke bounding Thyroid: bilateral: normal size - Respiratory Respiratory: bilateral: diminished - Cardiovascular Patient is tachycardic Rhythm: regular Heart sounds: normal: S1, S2 ankle Peripheral Edema: absent: None foot Peripheral Edema: absent: None - Gastrointestinal General gastrointestinal: no organomegaly, soft, no tenderness - Integumentary Integumentary: normal turgor - Neurologic patient is currently unresponsive, intubated on mechanical ventilator. He is postictal - Musculoskeletal Musculoskeletal: strength equal bilaterally - Psychiatric unable to assess at this time, patient is unresponsive, currently is postictal. Results - Laboratory Findings CBC and BMP: 12/18/17 05:20 12/18/17 05:20 Abnormal lab findings: Abnormal Labs 12/18/17 12/18/17 05:20 05:20 WBC 13.5 H RBC 3.82 L Hgb 12.5 L Hct 38.1 L RDW 16.4 H Plt Count 126 L Neutrophils # 12.4 H Lymphocytes # 0.5 L Chloride 94 L BUN 96 H* Creatinine 14.40 H* Glucose 168 H ALT 18 L - Diagnostic Findings Chest x-ray: report reviewed Additional studies: brain computed tomography scan, etiology reviewed. Assessment and Plan Plan: assessment: #1. Status epilepticus, in a patient with history of seizure disorder, and history of thalamic infarct first diagnosed in July 2017. Exact etiology of breakthrough seizures is unknown, patient is on a maintenance Keppra 750 mg twice a day. #2. Acute metabolic encephalopathy, continue to the above #3. Acute hypoxic and hypercapnic respiratory failure and very to altered mental status, related to prolonged postictal period after multiple breakthrough seizures. Patient was unable to protect his airway, became apneic , requiring emergent intubation and placement on mechanical ventilation #4. Evidence of right lower lobe infiltrate, possibly aspiration pneumonia #5. 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 Missed his regular hemodialysis yesterday. His usual HD days are Saturday, , Saturday #6.history of lacunar stroke #7. Hypertension with chronic kidney disease, currently poorly controlled #8.History of poor medical compliance #9.chronic back pain with degenerative disc disease and stenosis #10. History of chronic nephrolithiasis #11. Nicotine dependence, ongoing Plan repeat blood gases postintubation were reviewed, and and showed pH of 7.25, pCO2 of 62 and pO2 of 171. We we increased the rate to 16, tidal volume is currently at 450, FiO2 was decreased down to 75, and PEEP was at 5. Lorazepam drip was discontinued, maintain sedation with Diprivan drip, may use Ativan 1 mg every 2 hours as needed for breakthrough seizures. Neurology has been consulted. Refer to neurology for seizure control medication. Patient's spouse was updated on patient's condition. Nephrology consult was noted. On Lovenox at 30 mg subcutaneously daily for DVT prophylaxis. We'll continue with Protonix IV for GI prophylaxis. We will add Zosyn, and DuoNeb nebulized treatments. Transfer to the intensive care once a bed becomes available. I performed a history & physical examination of the patient and discussed their management with my nurse practitioner, Kerry Kiran. I reviewed the nurse practitioner's note and agree with the documented findings and plan of care. Lung sounds are diminished. The findings and the impression was discussed with the patient. I attest to the documentation by the nurse practitioner. Time with Patient: Greater than 30
[2017-12-18 18:06] LABS: Glucose,Whole Blood 108 mg/dL (75-99)
[2017-12-18] MEDS ORDERED: levETIRAcetam IV 1,000 MG in SALINE 1 100ML.BAG IVPB SCH (18:21)
[2017-12-18] MEDS ORDERED: levETIRAcetam IV 1,000 MG in SALINE 1 100ML.BAG IVPB ONE (19:00)
[2017-12-18] MEDS: LABETALOL 5 MG/ML VIAL MDV IVP PRN (19:00)
--- NOTE | 2017-12-18 19:19 | P.CNNES ---
History of Present Illness Consult date: 12/18/17 Reason for Consult: Patient admitted with breakthrough seizures. History of Present Illness: This patient is a 47-year-old right-handed white male who was brought into the emergency room after having a seizure at home. Patient has a long-standing history of end-stage renal disease and undergoes hemodialysis 3 days a week. He apparently had missed his dialysis recently and was showing signs of worsening renal failure. His last treatment was on Saturday of last week. He was seen in the ER due to the generalized tonic-clonic seizure. He was loaded with IV Keppra in the ER thousand milligrams. He required further treatment as he had few breakthrough seizures after the bolus was given. He had been placed on Ativan drip which was subtotally discontinued. Patient also was showing signs of rest [place] failure and was intubated in the emergency room. There was history suggesting he was possibly withdrawing from alcohol use. He was started on the CIWA protocol as well. The patient apparently showed signs of aspiration during intubation. A repeat chest x-ray reveals evidence of an infiltrate in the right lung base. He was started on Zosyn for IV antibiotic coverage. He has been afebrile since being started on antibiotic. His temperature is down to 98.9. The patient remains intubated in the emergency room. He did have a few breakthrough seizures but responded well to 1 mg of Ativan. He is undergoing hemodialysis at this time in the ER. He is awaiting a room into the intensive care unit which is currently full. The patient also is showing signs of hypertensive urgency. He is being adjusted on his antihypertensive medications as per critical care medicine and internal medicine. He is currently on labetalol and hydralazine. Patient was sent for a computed tomography scan of the brain which revealed evidence of a old left thalamic infarct which was seen on a previous CAT scan done in July of last year. There was no evidence of any new or acute stroke or hemorrhage. As noted he is currently being treated with hemodialysis in the ER. The patient has not shown any evidence of further breakthrough seizures during his evaluation in the ER at this time. He has been placed on Keppra 1000 mg IV piggyback every 12 hours. A stat dose has just been given in the emergency room this evening. The patient seems to be tolerating his hemodialysis well. His serum creatinine was 14.4 to his hemodialysis this evening. A repeat creatinine will be done tomorrow morning. The patient was checked for influenza A and B which came back negative. Blood cultures are pending at this time. As noted the patient has been started on Zosyn. His neurological exam in the emergency room fails to reveal any signs of nuchal rigidity or stiffness. His temperature is now back to normal. Chest x-ray does show evidence of a right lobe infiltrate suggesting aspiration pneumonia. We will await further recommendations from pulmonary medicine. He is going to be transferred to the intensive care unit once a bed is available. At this time we will continue him on Keppra monotherapy however if he should have further breakthrough seizures we would consider adding a second anticonvulsant medication. The patient is being closely monitored for his hypertensive emergency. He is currently on Catapres and as noted combination of hydralazine and labetalol. We will await further recommendations from the sterile instrument technician and Dr. English who is aware of his current blood pressure readings. The patient will undergo routine EEG tomorrow for further assessment of his seizure disorder. We will check his Keppra level tomorrow morning as well however this will take a few days to return from the send out laboratory. At this time we will continue close monitoring and consider adding a second anticonvulsant if he should have further seizure-like events. Case was discussed today with Dr. English. She is aware of his current neurological findings and current status in terms of his seizure activity. We will continue to follow him closely in the intensive care unit. His overall prognosis at this time remains very guarded. Review of Systems ROS unobtainable: due to endotracheal tube Constitutional: Denies chills, Denies fever Eyes: denies blurred vision, denies pain Ears, nose, mouth and throat: Denies headache, Denies sore throat Cardiovascular: Denies chest pain, Denies shortness of breath Respiratory: Denies cough Gastrointestinal: Denies abdominal pain, Denies diarrhea, Denies nausea, Denies vomiting Musculoskeletal: Denies myalgias Integumentary: Denies pruritus, Denies rash Neurological: Reports change in mentation, Reports confusion, Reports convulsions, Reports seizures, Denies numbness, Denies weakness Psychiatric: Denies anxiety, Denies depression Endocrine: Denies fatigue, Denies weight change Past Medical History Past Medical History: COPD, CVA/TIA, Eye Disorder, Hyperlipidemia, Hypertension , Musculoskeletal Disorder, Pneumonia, Renal Disease, Seizure Disorder Additional Past Medical History / Comment(s): End-stage renal disease on hemodialysis with last dialysis on 12/14/16-missed Tuesdays, nephrolithiasis, seizures began about 1 year ago, 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 History of Any Multi-Drug Resistant Organisms: None Reported Past Surgical History: Orthopedic Surgery Additional Past Surgical History / Comment(s): R arm AV fistula for dialysis, cystoscopies/ renal stents, double J catheter, lithotripsy, ORIF R ankle fracture, colonoscopy. Past Anesthesia/Blood Transfusion Reactions: No Reported Reaction Smoking Status: Current every day smoker - Past Family History Father Family Medical History: Cancer, CVA/TIA Additional Family Medical History / Comment(s): Father had lymphoma. He had a CVA Mother Family Medical History: CVA/TIA Additional Family Medical History / Comment(s): Mother had a CVA. Medications and Allergies Home Medications Medication Instructions Recorded Confirmed Type Calcium Acetate [PhosLo] 667 mg PO TID-W/MEALS 11/22/16 12/18/17 History Sodium Bicarbonate Tab 650 mg PO BID 11/22/16 12/18/17 History Lisinopril [Zestril] 20 mg PO BID 06/14/17 12/18/17 History Ergocalciferol (Vitamin D2) 50,000 unit PO Q30D 07/21/17 12/18/17 History [Vitamin D2] Methocarbamol [Robaxin] 750 mg PO TID 07/22/17 12/18/17 History Aspirin 325 mg PO DAILY #30 tab 07/27/17 12/18/17 Rx Atorvastatin [Lipitor] 20 mg PO DAILY #30 tablet 07/27/17 12/18/17 Rx Melatonin 5 mg PO HS tab 07/27/17 12/18/17 Rx QUEtiapine [SEROquel] 25 mg PO HS #30 tab 07/27/17 12/18/17 Rx Sevelamer [Renvela] 1,600 mg PO TID-W/MEALS #0 tab 09/09/17 01/31/18 Rx amLODIPine [Norvasc] 5 mg PO BID tab 07/27/17 12/18/17 Rx hydrALAZINE HCL [Apresoline] 50 mg PO BID #60 tab 07/27/17 12/18/17 Rx levETIRAcetam [Keppra] 750 mg PO Q12HR #60 tab 07/27/17 12/18/17 Rx cloNIDine HCL 0.3 mg PO BID 12/18/17 12/18/17 History Allergies Allergy/AdvReac Type Severity Reaction Status Date / Time No Known Allergies Allergy Verified 12/18/17 10:17 Physical Examination - Vital Signs Vital Signs: Vital Signs Temp Pulse Pulse Resp BP Pulse Ox 12/18/17 18:35 99.8 F H 117 H 18 197/86 100 12/18/17 18:05 114 H 18 188/84 100 12/18/17 18:02 112 H 12/18/17 17:56 108 H 18 196/91 100 12/18/17 17:30 108 H 18 178/78 99 12/18/17 17:00 108 H 108 H 18 160/69 100 12/18/17 16:00 98.6 F 112 H 112 H 18 134/75 99 12/18/17 15:07 108 H 12 162/82 99 12/18/17 14:23 130 H 12 206/117 100 12/18/17 13:30 101.4 F H 12/18/17 10:15 95 16 219/120 95 12/18/17 10:10 101 H 18 215/107 93 L 12/18/17 10:00 144 H 16 235/138 93 L 12/18/17 09:31 149 H 18 236/129 93 L 12/18/17 08:50 97.4 F L 142 H 18 240/134 93 L 12/18/17 08:21 147 H 18 234/13 96 12/18/17 07:55 153 H 22 257/120 94 L 12/18/17 07:25 124 H 16 219/118 92 L 12/18/17 06:30 110 H 16 218/142 97 12/18/17 05:05 113 H 16 238/119 97 12/18/17 05:00 96.9 F L 131 H 16 234/125 96 Intake and Output 01/31/18 01/31/18 01/31/18 06:59 14:59 22:59 Intake Total 1.5 Output Total 895 Balance -893.5 Intake: Intake, IV Titration 1.5 Amount LORazepam Vial 40 mg In 1.5 Dextrose 5% in Water 80 ml @ 1 MG/HR 2.5 mls/hr IV .Q24H [facility] Rx#: [id number] Output: Gastric Drainage 700 Urine 195 Other: Weight 72.575 kg - Constitutional General appearance: average body habitus, cooperative - EENT EENT: PERRL, mucous membranes moist - Respiratory Respiratory: lungs clear, normal breath sounds - Cardiovascular Cardiovascular: regular rate, normal S1, normal S2 Extremities: no peripheral edema bilaterally - Gastrointestinal Gastrointestinal: normoactive bowel sounds - Integumentary Integumentary: normal - Neurologic Cranial nerve examination: PERRL, face symmetric, tongue midline, intact gag reflex, intact corneal reflex Speech examination: other (Patient currently intubated.) Sensorimotor examination: intact Motor examination - right side: 3/5: biceps, triceps, wrist flexion, wrist extension, supervisor roller shop, hip flexors, knee extensors, dorsiflexion, toe extension (EHL) , plantarflexion Motor examination - left side: 3/5: biceps, triceps, wrist flexion, wrist extension, supervisor roller shop, hip flexors, knee extensors, dorsiflexion, toe extension (EHL) , plantarflexion Detailed sensory examination: intact (Patient withdraws to painful stimuli overall 4 extremities) Reflex and gait examination: intact Reflexes: 1+: ankle, bicep, knee, tricep - Musculoskeletal Musculoskeletal: no pain - Psychiatric Psychiatric: agitated (Patient currently intubated on the ventilator and is having hemodialysis.) Results - Laboratory Findings CBC and BMP: 12/18/17 05:20 12/18/17 05:20 Abnormal Lab Findings: Abnormal Labs 12/18/17 12/18/17 12/18/17 05:20 05:20 13:36 WBC 13.5 H RBC 3.82 L Hgb 12.5 L Hct 38.1 L RDW 16.4 H Plt Count 126 L Neutrophils # 12.4 H Lymphocytes # 0.5 L ABG pH ABG pCO2 ABG pO2 ABG HCO3 ABG Total CO2 ABG O2 Saturation Chloride 94 L BUN 96 H* Creatinine 14.40 H* Glucose 168 H POC Glucose (mg/dL) ALT 18 L Urine Protein 3+ H Urine Glucose (UA) 3+ H Urine Blood Moderate H Urine RBC 6 H 12/18/17 12/18/17 12/18/17 14:17 15:05 18:05 WBC RBC Hgb Hct RDW Plt Count Neutrophils # Lymphocytes # ABG pH 7.25 L ABG pCO2 62 H ABG pO2 171 H ABG HCO3 27 H ABG Total CO2 29 H ABG O2 Saturation 98.8 H Chloride BUN Creatinine Glucose POC Glucose (mg/dL) 114 H 108 H ALT Urine Protein Urine Glucose (UA) Urine Blood Urine RBC Assessment and Plan (1) Generalized complex partial epilepsy Current Visit: Yes Status: Acute Code(s): G40.209 - LOCAL-REL SYMPTC EPI W CMPLX PRT SEIZ,NOT NTRCT,W/O STAT EPI SNOMED Code(s): 670526361 (2) History of stroke Current Visit: Yes Status: Acute Code(s): Z86.73 - PRSNL HX OF TIA (TIA), AND CEREB INFRC W/O RESID DEFICITS SNOMED Code(s): 750304237 (3) Acute encephalopathy Current Visit: Yes Status: Acute Code(s): G93.40 - ENCEPHALOPATHY, UNSPECIFIED SNOMED Code(s): 3639436 (4) End stage renal disease on dialysis Current Visit: Yes Status: Acute Code(s): N18.6 - END STAGE RENAL DISEASE; Z99.2 - DEPENDENCE ON RENAL DIALYSIS SNOMED Code(s): 972930870 (5) Hypertensive urgency Current Visit: No Status: Resolved Code(s): I16.0 - HYPERTENSIVE URGENCY SNOMED Code(s): 852643390 Plan: This patient is a 47-year-old male admitted with history of seizure disorder and recent breakthrough seizures. Patient was brought into the emergency room where he was evaluated and found to have evidence of generalized tonic-clonic seizure. He was loaded with IV Keppra at thousand milligrams in the emergency room at 8 AM this morning. He continued to have few further breakthrough seizures and was placed on his CIWA protocol as there was concern for alcohol withdrawal seizures secondary to uncontrolled hypertensive urgency. He was started on various antihypertensive medications. CAT scan of the brain revealed evidence of an old left thalamic infarct with no acute stroke or hemorrhage noted. Patient was intubated and in the process developed aspiration. Chest x-ray revealed right lower lobe infiltrate suggesting aspiration pneumonia. He is started on IV Zosyn. Patient is currently on Keppra thousand milligrams IV piggyback every 12 hours. We will obtain a Keppra level tomorrow morning and have a repeat computed tomography scan of the brain done. Patient is awaiting transfer into the intensive care unit as soon as a bed becomes available. Patient has had no further seizures in the emergency room this evening. Recommend using Ativan 1-2 mg every 2-4 hours as needed for breakthrough seizure events. His bolus of 1000 mg of IV Keppra was given in the ER this evening. He is to be maintained on 1000 mg IV piggyback every 12 hours. Patient is undergoing hemodialysis in the ER this evening. We will await further recommendations from nephrology. His blood pressure still remains quite elevated and is being treated for hypertensive urgency. The patient has multiple complex medical issues. We will continue close neurological follow-up of this patient in the intensive care unit. If he should have further breakthrough seizures we will consider adding a second anticonvulsant medication. At this time his prognosis remains very guarded. This case was discussed in detail this evening with Dr. English. She is updated on his overall neurological findings. We will continue to monitor his condition closely in the intensive care unit. Time with Patient: Greater than 30
[2017-12-18] MEDS ORDERED: MORPHINE SULFATE 2 MG/ML SYRINGE IVP STA (19:33)
[2017-12-18] MEDS: IPRATROPIUM-ALBUTEROL 3 ML NEB INHALATION SCH ×4 (20:25→23:41)
[2017-12-18] MEDS ORDERED: MELATONIN 5 MG TABLET PO SCH (21:00)
[2017-12-18 21:04] LABS: Glucose,Whole Blood 88 mg/dL (75-99)
[2017-12-18] MEDS ORDERED: LABETALOL 5 MG/ML VIAL MDV IVP ONE (21:20)
[2017-12-18] MEDS: LABETALOL 100 MG in SODIUM CHLORIDE 0.9% 80 ML IV SCH ×4 (21:22→23:01)
[2017-12-18] MEDS: QUEtiapine 25 MG TAB PO SCH (22:15)
[2017-12-19] MEDS: LABETALOL 100 MG in SODIUM CHLORIDE 0.9% 80 ML IV SCH ×27 (00:12→23:46)
[2017-12-19 00:13] LABS: Glucose,Whole Blood 92 mg/dL (75-99)
[2017-12-19] MEDS ORDERED: NALOXONE 0.4 MG/ML 1 ML VIAL IV PRN (00:54)
[2017-12-19 01:52] LABS: Hemoglobin A1C 4.3 % (4.0-6.0)
[2017-12-19] MEDS: hydrALAZINE HCL 20 MG/ML 1 ML VIAL IVP SCH ×6 (03:41→23:46)
[2017-12-19] MEDS: PROPOFOL 1,000 MG in EMPTY BAG 1 BAG IV SCH ×5 (03:47→20:57)
[2017-12-19] MEDS: IPRATROPIUM-ALBUTEROL 3 ML NEB INHALATION SCH ×6 (04:14→23:22)
[2017-12-19 05:19] LABS: Anisocytosis Slight; Basophils # (A) 0.1 k/uL (0-0.2); Basophils % (A) 1 %; Eosinophils % (A) 0 %; HCT 29.5 % (39.0-53.0); Lymphocytes # (A) 0.8 k/uL (1.0-4.8); Lymphocytes % (A) 11 %; MCH 32.1 pg (25.0-35.0); MCHC 32.2 g/dL (31.0-37.0); Macrocytosis Slight; Mean Platelet Volume 7.5; Monocytes # (A) 0.6 k/uL (0-1.0); Monocytes % (A) 8 %; Neutrophils # (A) 5.6 k/uL (1.3-7.7); Neutrophils % (A) 77 %; RBC 2.96 m/uL (4.30-5.90); RDW 16.5 % (11.5-15.5); WBC 7.3 k/uL (3.8-10.6)
[2017-12-19 05:23] LABS: HGB 9.5 gm/dL (13.0-17.5)
[2017-12-19 05:24] LABS: Calcium 8.4 mg/dL (8.4-10.2); MCV 99.6 fL (80.0-100.0); Magnesium 2.1 mg/dL (1.6-2.3); Phosphorus 7.3 mg/dL (2.5-4.5); Potassium 5.1 mmol/L (3.5-5.1)
[2017-12-19] MEDS: PIPERACILLIN-TAZOBACTAM 3.375 GM in DEXTROSE/WATER 1 50ML.BAG IVPB SCH ×2 (05:26→18:07)
[2017-12-19 05:59] LABS: Platelet Count 64 k/uL (150-450)
--- NOTE | 2017-12-19 07:14 | XR ---
EXAMINATION TYPE: XR chest 1V portable DATE OF EXAM: 12/19/2017 COMPARISON: 12/18/2017 HISTORY: Endotracheal tube placement TECHNIQUE: Single frontal view of the chest is obtained. FINDINGS: Endotracheal tube has been repositioned and retracted now terminating at the level of the inferior margin of the clavicles, appropriately placed. Hilar prominence is redemonstrated as well as bibasilar opacities obscuring the left hemidiaphragm in the retrocardiac airspace. Haziness of the r ight hemidiaphragm is less pronounced on the prior. There is stable placement of the enteric tube wit h its distal portion oriented towards the gastroesophageal junction, coiled within the region of the gastric lumen. IMPRESSION: 1. Interval retraction of the endotracheal tube, now appropriately placed with stable positioning of the enteric tube. 2. Redemonstration of central vascular congestion and bibasilar opacities favored to represent atelec tasis although pneumonia is also possible.
[2017-12-19 07:50] LABS: ABG Base Excess 13.8 mmol/L; ABG HCO3 38 mmol/L (21-25); ABG Oxygen Saturation 94.9 % (94-97); ABG PCO2 52 mmHg (35-45); ABG PH 7.47 (7.35-7.45); ABG PO2 81 mmHg (83-108); ABG TCO2 39 mmol/L (19-24)
[2017-12-19] MEDS: CALCIUM ACETATE 667 MG CAP PO SCH ×3 (08:02→18:07)
[2017-12-19] MEDS: NICOTINE 14MG/24HR PATCH TRANSDERM SCH (08:03)
[2017-12-19] MEDS: SODIUM CHLORIDE 0.9% 1,000 ML IV SCH ×2 (08:03→10:50)
[2017-12-19] MEDS: CHLORHEXIDINE GLUCONATE 15 ML CUP MUCOUS MEM SCH ×2 (08:04→20:07)
[2017-12-19] MEDS: PANTOPRAZOLE 40 MG/10 ML VIAL IV SCH (08:04)
[2017-12-19] MEDS: ATORVASTATIN 20 MG TAB PO SCH (08:04)
[2017-12-19] MEDS: levETIRAcetam IV 1,000 MG in SALINE 1 100ML.BAG IVPB SCH ×2 (08:07→20:17)
[2017-12-19] MEDS: LISINOPRIL 20 MG TAB PO SCH ×2 (08:15→20:07)
[2017-12-19] MEDS: SEVELAMER 800 MG TAB PO SCH ×3 (08:15→16:08)
[2017-12-19] MEDS: MORPHINE SULFATE 2 MG/ML SYRINGE IVP PRN ×2 (09:37→17:04)
[2017-12-19] MEDS: ASPIRIN 325 MG TAB PO SCH (10:40)
[2017-12-19] MEDS: ENOXAPARIN 30 MG/0.3 ML SYRINGE SQ SCH (10:40)
--- NOTE | 2017-12-19 10:49 | CT ---
EXAMINATION TYPE: CT brain wo con DATE OF EXAM: 12/19/2017 COMPARISON: Prior CT brain 12/08/2017 HISTORY: F/U Seizure activity, abnormal head CT CT DLP: 1027.2 mGycm. Automated Exposure Control for Dose Reduction was Utilized. TECHNIQUE: CT scan of the head is performed without contrast. FINDINGS: There is no acute intracranial hemorrhage, mass effect, or midline shift identified. Whit e matter low-attenuation is again noted in the left frontal lobe, periventricular locations, low-atte nuation again noted within the left thalamus and is stable. The ventricles and sulci are within megan l limits in size. The globes are intact and the visualized sinuses are remarkable for inflammatory c hange in the bilateral maxillary sinus air cells, periosteal thickening in the sphenoid sinus. There are cerebral vascular calcifications. IMPRESSION: No acute intracranial hemorrhage, mass effect, or midline shift is seen. Stable exam.
--- NOTE | 2017-12-19 11:14 | CT ---
EXAMINATION TYPE: CT abdomen pelvis wo con DATE OF EXAM: 12/19/2017 COMPARISON: NONE HISTORY: 47-year-old male large amount of output from OG tube CT DLP: 594 mGycm. Automated exposure control for dose reduction was used. TECHNIQUE: Contiguous axial scanning of the abdomen and pelvis without IV contrast. Coronal and sagit kandis reconstructions performed. FINDINGS: Mild diffuse anasarca-type change. Heart upper limits of normal in size with small pericardial effusi on measuring 7 mm thick. There may be trace effusions but most of the density at the dependent lungs appears to represent combination of atelectasis and prominent consolidation. The OG tube is appropriately situated within the stomach. The tip abuts the gastric fundus posteriorl y. Only mild fluid is seen within the stomach. There is suggestion of some diffuse gastric fold thick ening. Noncontrast appearance of the liver, right adrenal gland, and pancreas show no gross abnormal mobilit y. Spleen is enlarged measuring 15.7 cm craniocaudal with a hilar splenule. Mild diffuse thickening of the left adrenal gland without discrete nodularity. Both kidneys are atrophic with multiple calculi measuring up to 7 mm. There are prominent small bowel loops measuring up to 2.8 cm in caliber, coronal image 18. Some occas ional air-fluid levels are present but no discrete transition point is seen. Mild stool within the colon Mild to moderate atherosclerotic calcifications abdominal aorta and iliac arteries. No abdominal lymphadenopathy identified. Perez catheter decompresses the bladder. There is mild circumferential bladder wall thickening and so me intraluminal air relating to instrumentation. Central prostatic calcifications. Mild presacral lashawn ma. No abnormal fluid collection in the pelvis or pelvic lymphadenopathy seen. Bones: Mild degenerative changes in the spine. No osseous destructive process. IMPRESSION: 1. The OG tube is appropriately positioned. There is only mild fluid within the stomach but there is suggestion of diffuse fold thickening which could represent gastritis. 2. Large amount of dependent density at the visualized lung bases with air bronchograms. There are o nly trace effusions. Combination of consolidation and atelectasis are suggested. Pneumonia not exclud ed. Clinically correlate. 3. Correlate for fluid overload state as there is mild diffuse anasarca. Small pericardial effusion is also present. 4. Some prominent small bowel loops containing air-fluid levels measuring up to 2.8 cm. No discrete transition point. Generalized ileus or enteritis is favored at this time. Radiographic follow-up may be helpful. 5. Splenomegaly (15.7 cm). 6. Mild circumferential bladder wall thickening could represent chronic bladder wall hypertrophy or cystitis. Perez catheter in place. 7. Chronic kidney disease with nonobstructive renal calculi.
--- NOTE | 2017-12-19 11:38 | P.PN ---
Subjective Patient is seen in follow-up for end-stage renal disease. He is maintained on hemodialysis on a Saturday schedule. He is currently in the intensive care unit for recurrent seizures. He is off Ativan and labetalol drip. He is maintained on Keppra. Currently intubated and sedated. He underwent hemodialysis yesterday as he missed cues to treatment. Vital signs are stable. General: The patient appeared well nourished and normally developed. Intubated. HEENT: Head exam is unremarkable. Neck is without jugular venous distension. LUNGS: Lungs are clear to auscultation and percussion. Breath sounds decreased. HEART: Rate and Rhythm are regular. First and second heart sounds normal. No murmurs, rubs or gallops. ABDOMEN: Abdominal exam reveals normal bowel sounds. Non-tender and non- distended. No evidence of peritonitis. EXTREMITITES: No clubbing, cyanosis, or edema. Objective - Vital Signs Vital signs: Vital Signs Temp 99.3 F 12/19/17 08:00 Pulse 77 12/19/17 11:18 Resp 16 12/19/17 11:00 BP 139/73 12/19/17 11:00 Pulse Ox 95 12/19/17 11:00 Intake & Output 12/18/17 12/19/17 12/19/17 18:59 06:59 18:59 Intake Total 1.5 734.786 449.440 Output Total 895 830 930 Balance -893.5 -95.214 -480.560 Weight 72.575 kg Intake: IV 200 265.0 Piperacillin-Tazobactam 3 25.0 .375 gm In Dextrose/Water 1 50ml.bag @ 12.5 mls/hr IVPB Q12H [facility] Rx#: [id number] Sodium Chloride 0.9% 1, 200 140 000 ml @ 20 mls/hr IV . Q24H [facility] Rx#:[id number] levETIRAcetam IV 1,000 mg 100 In Saline 1 100ml.bag @ 400 mls/hr IVPB Q12HR [facility] Rx#:[id number] Intake, IV Titration 1.5 534.786 184.440 Amount LORazepam Vial 40 mg In 1.5 Dextrose 5% in Water 80 ml @ 1 MG/HR 2.5 mls/hr IV .Q24H [facility] Rx#: [id number] Labetalol 100 mg In 92 Sodium Chloride 0.9% 80 ml @ 2 MG/MIN 120 mls/hr IV .Q50M [facility] Rx#: [id number] Labetalol 100 mg In 220.166 Sodium Chloride 0.9% 80 ml @ 2 MG/MIN 120 mls/hr IV .Q50M [facility] Rx#: [id number] Propofol 1,000 mg In 222.62 184.440 Empty Bag 1 bag @ Titrate IV .Q0M [facility] Rx#: [id number] Output: Gastric Drainage 700 700 900 Urine 195 130 30 Other: Voiding Method Indwelling Catheter Indwelling Catheter - Labs CBC & Chem 7: 12/19/17 04:52 12/19/17 04:52 Labs: Abnormal Lab Results - Last 24 Hours (Table) 12/18/17 12/18/17 12/18/17 Range/Units 13:36 14:17 15:05 RBC (4.30-5.90) m/uL Hgb (13.0-17.5) gm/dL Hct (39.0-53.0) % RDW (11.5-15.5) % Plt Count (150-450) k/uL Lymphocytes # (1.0-4.8) k/uL ABG pH 7.25 L (7.35-7.45) ABG pCO2 62 H (35-45) mmHg ABG pO2 171 H (83-108) mmHg ABG HCO3 27 H (21-25) mmol/L ABG Total CO2 29 H (19-24) mmol/L ABG O2 Saturation 98.8 H (94-97) % Chloride (98-107) mmol/L Carbon Dioxide (22-30) mmol/L BUN (9-20) mg/dL Creatinine (0.66-1.25) mg/dL POC Glucose (mg/dL) 114 H (75-99) mg/dL Phosphorus (2.5-4.5) mg/dL Urine Protein 3+ H (Negative) Urine Glucose (UA) 3+ H (Negative) Urine Blood Moderate H (Negative) Urine RBC 6 H (0-5) /hpf 12/18/17 12/19/17 12/19/17 Range/Units 18:05 04:52 04:52 RBC 2.96 L (4.30-5.90) m/uL Hgb 9.5 L D (13.0-17.5) gm/dL Hct 29.5 L (39.0-53.0) % RDW 16.5 H (11.5-15.5) % Plt Count 64 L (150-450) k/uL Lymphocytes # 0.8 L (1.0-4.8) k/uL ABG pH (7.35-7.45) ABG pCO2 (35-45) mmHg ABG pO2 (83-108) mmHg ABG HCO3 (21-25) mmol/L ABG Total CO2 (19-24) mmol/L ABG O2 Saturation (94-97) % Chloride 95 L (98-107) mmol/L Carbon Dioxide 33 H (22-30) mmol/L BUN 57 H (9-20) mg/dL Creatinine 9.33 H* (0.66-1.25) mg/dL POC Glucose (mg/dL) 108 H (75-99) mg/dL Phosphorus 7.3 H (2.5-4.5) mg/dL Urine Protein (Negative) Urine Glucose (UA) (Negative) Urine Blood (Negative) Urine RBC (0-5) /hpf 12/19/17 Range/Units 07:48 RBC (4.30-5.90) m/uL Hgb (13.0-17.5) gm/dL Hct (39.0-53.0) % RDW (11.5-15.5) % Plt Count (150-450) k/uL Lymphocytes # (1.0-4.8) k/uL ABG pH 7.47 H (7.35-7.45) ABG pCO2 52 H (35-45) mmHg ABG pO2 81 L (83-108) mmHg ABG HCO3 38 H (21-25) mmol/L ABG Total CO2 39 H (19-24) mmol/L ABG O2 Saturation (94-97) % Chloride (98-107) mmol/L Carbon Dioxide (22-30) mmol/L BUN (9-20) mg/dL Creatinine (0.66-1.25) mg/dL POC Glucose (mg/dL) (75-99) mg/dL Phosphorus (2.5-4.5) mg/dL Urine Protein (Negative) Urine Glucose (UA) (Negative) Urine Blood (Negative) Urine RBC (0-5) /hpf Microbiology - Last 24 Hours (Table) 12/18/17 13:48 Gram Stain - Preliminary Sputum Sputum Culture - Preliminary Assessment and Plan Plan: Assessment: #1. End-stage renal disease maintained on hemodialysis on a Saturday schedule via AV fistula. 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 #2. Seizures maintained on Keppra. Off Ativan drip at this time. Neurology following. #3. History of lacunar stroke. #4. Hypertension with chronic kidney disease. Now controlled. #5. Chronic kidney disease mineral bone disease. Plan: Hemodialysis today. Resume phosphate binders once oral intake initiated. Maintain current antihypertensives.
--- NOTE | 2017-12-19 12:00 | P.PN ---
Subjective Progress Note Date: 12/19/17 Principal diagnosis: Acute status epilepticus Jose is a 47-year-old white male patient that was brought to the emergency department by EMS on 12/18/2017 at 0457 in the morning for complaints of generalized tonic-clonic seizures. Patient's family had called 911, patient was reportedly postictal, with altered mentation, very combative, fighting with the residential solar consultant. Patient's has reportedly told the ER staff that the patient had not been feeling good for last couple of days, and missed his dialysis on Saturday. Patient is known to have ESRD on hemodialysis, and his usual days are Tuesdays and Saturdays. Per , patient did have his usual Saturday hemodialysis. It is unknown as to what type of symptoms he was having when he was not feeling good. In the emergency room patient had 4 more episodes of grand mal seizures lasting 1-2 minutes. He was given the loading dose of IV Keppra up thousand milligrams. He does have an underlying seizure disorder, he is on maintenance Keppra 750 mg twice a day, is unclear at this time if the patient is compliant with his medications. He was previously hospitalized in July for status epilepticus, acute hypoxic respiratory failure secondary to pulmonary edema, requiring intubation and mechanical ventilation. During that admission patient was found to have a thalamic infarct. CT head on 12/18/2017 showed no acute intracranial hemorrhage or mass effect. There was a hypodense focus within the left thalamus likely indicating a lacunar infarct, age indeterminate. This finding was felt to be chronic and present on the previous exam on 07/22/2017, although not as well delineated. Patient's twelve-lead EKG showed sinus tachycardia with a rate of 123 BPM. Chest x-ray showed chronic changes without any acute cardiopulmonary process. We were consulted in regards to patient's altered mentation and the possibility of requiring intubation and mechanical ventilation in regards to his post ictal status and inability to protect his airway. Upon my evaluation, patient was seen in the emergency room, resting on the gurney, unresponsive to verbal or painful stimuli. Initially he was breathing spontaneously, the head of the bed was elevated for aspiration precautions. He was given a few rounds of lorazepam IV push for seizure activity earlier in the day. Patient was noted to be very hypertensive, his systolic blood pressures have been ranging in the 192-235 mm/Hg, and his diastolic has been ranging from 100-138 mmHg. his pulse ox was 95 on 4 L per nasal cannula, patient does not have an gag reflex, some oral secretions were suctioned out of his oropharynx. Shortly afterward patient became apneic, started seizing, patient was ventilated per Ambu bag, and emergently intubated by the ER physician. We will put him on vent settings of assist control with a rate of 12, tidal vital 400, FiO2 of 100% and the PEEP of 5. Patient was seen in consultation by nephrology, who is planning on dialyzing the patient today and tomorrow. They had also made recommendations for blood pressure control. Patient will be transferred to the intensive care once a bed is available. Patient was reevaluated today on 12/19/2017, remains on mechanical ventilation, sedated, patient is heading down shortly for a CT of the head, and considering the patient is having significant drainage from the nasogastric tube, recommended a CT of the abdomen and pelvis to be done at the same time. In the meantime the patient remains sedated, in no distress, no seizure activity overnight. His vent settings are basically the same however his FiO2 is down to 50%. CBC showed WBC count of 7.3 hemoglobin is 9.5. ABG showed a pO2 of 81 pCO2 of 52 pH of 7.47. Patient was dialyzed yesterday, and he is going to be dialyzed again today. His BUN is 57 creatinine is 9.33. Objective - Vital Signs Vital signs: Vital Signs Temp 99.3 F 12/19/17 08:00 Pulse 77 12/19/17 11:18 Resp 16 12/19/17 11:00 BP 139/73 12/19/17 11:00 Pulse Ox 95 12/19/17 11:00 Intake & Output 12/18/17 12/19/17 12/19/17 18:59 06:59 18:59 Intake Total 1.5 734.786 449.440 Output Total 895 830 930 Balance -893.5 -95.214 -480.560 Weight 72.575 kg Intake: IV 200 265.0 Piperacillin-Tazobactam 3 25.0 .375 gm In Dextrose/Water 1 50ml.bag @ 12.5 mls/hr IVPB Q12H [facility] Rx#: [id number] Sodium Chloride 0.9% 1, 200 140 000 ml @ 20 mls/hr IV . Q24H [facility] Rx#:[id number] levETIRAcetam IV 1,000 mg 100 In Saline 1 100ml.bag @ 400 mls/hr IVPB Q12HR [facility] Rx#:[id number] Intake, IV Titration 1.5 534.786 184.440 Amount LORazepam Vial 40 mg In 1.5 Dextrose 5% in Water 80 ml @ 1 MG/HR 2.5 mls/hr IV .Q24H [facility] Rx#: [id number] Labetalol 100 mg In 92 Sodium Chloride 0.9% 80 ml @ 2 MG/MIN 120 mls/hr IV .Q50M [facility] Rx#: [id number] Labetalol 100 mg In 220.166 Sodium Chloride 0.9% 80 ml @ 2 MG/MIN 120 mls/hr IV .Q50M [facility] Rx#: [id number] Propofol 1,000 mg In 222.62 184.440 Empty Bag 1 bag @ Titrate IV .Q0M [facility] Rx#: [id number] Output: Gastric Drainage 700 700 900 Urine 195 130 30 Other: Voiding Method Indwelling Catheter Indwelling Catheter - Exam - Constitutional 47-year-old white male, resting in bed, sedated, in no distress. General appearance: average body habitus - EENT Patient's pupils are 5 mm, dilated, sluggishly reactive to light. Patient has a deviated gaze downward. There is evidence of subconjunctival hemorrhage in the corner of left eye Eyes: abnormal pupil ENT: NA/AT, normal oropharynx Ears: bilateral: normal - Neck Neck: no lymphadenopathy Carotids: bilateral: upstroke bounding Thyroid: bilateral: normal size - Respiratory Respiratory: bilateral: diminished - Cardiovascular Patient is tachycardic Rhythm: regular Heart sounds: normal: S1, S2 ankle Peripheral Edema: absent: None foot Peripheral Edema: absent: None - Gastrointestinal General gastrointestinal: no organomegaly, soft, no tenderness - Integumentary Integumentary: normal turgor - Neurologic Patient is sedated, on propofol drip, will hold the propofol shortly and address his mental status. This will be done after he comes back from CT of the head. - Musculoskeletal Musculoskeletal: Unable to assess at present because of sedation. - Psychiatric unable to assess at this time, patient is fully sedated - Labs CBC & Chem 7: 12/19/17 04:52 12/19/17 04:52 Labs: Abnormal Lab Results - Last 24 Hours (Table) 12/18/17 12/18/17 12/18/17 Range/Units 13:36 14:17 15:05 RBC (4.30-5.90) m/uL Hgb (13.0-17.5) gm/dL Hct (39.0-53.0) % RDW (11.5-15.5) % Plt Count (150-450) k/uL Lymphocytes # (1.0-4.8) k/uL ABG pH 7.25 L (7.35-7.45) ABG pCO2 62 H (35-45) mmHg ABG pO2 171 H (83-108) mmHg ABG HCO3 27 H (21-25) mmol/L ABG Total CO2 29 H (19-24) mmol/L ABG O2 Saturation 98.8 H (94-97) % Chloride (98-107) mmol/L Carbon Dioxide (22-30) mmol/L BUN (9-20) mg/dL Creatinine (0.66-1.25) mg/dL POC Glucose (mg/dL) 114 H (75-99) mg/dL Phosphorus (2.5-4.5) mg/dL Urine Protein 3+ H (Negative) Urine Glucose (UA) 3+ H (Negative) Urine Blood Moderate H (Negative) Urine RBC 6 H (0-5) /hpf 12/18/17 12/19/17 12/19/17 Range/Units 18:05 04:52 04:52 RBC 2.96 L (4.30-5.90) m/uL Hgb 9.5 L D (13.0-17.5) gm/dL Hct 29.5 L (39.0-53.0) % RDW 16.5 H (11.5-15.5) % Plt Count 64 L (150-450) k/uL Lymphocytes # 0.8 L (1.0-4.8) k/uL ABG pH (7.35-7.45) ABG pCO2 (35-45) mmHg ABG pO2 (83-108) mmHg ABG HCO3 (21-25) mmol/L ABG Total CO2 (19-24) mmol/L ABG O2 Saturation (94-97) % Chloride 95 L (98-107) mmol/L Carbon Dioxide 33 H (22-30) mmol/L BUN 57 H (9-20) mg/dL Creatinine 9.33 H* (0.66-1.25) mg/dL POC Glucose (mg/dL) 108 H (75-99) mg/dL Phosphorus 7.3 H (2.5-4.5) mg/dL Urine Protein (Negative) Urine Glucose (UA) (Negative) Urine Blood (Negative) Urine RBC (0-5) /hpf 12/19/17 Range/Units 07:48 RBC (4.30-5.90) m/uL Hgb (13.0-17.5) gm/dL Hct (39.0-53.0) % RDW (11.5-15.5) % Plt Count (150-450) k/uL Lymphocytes # (1.0-4.8) k/uL ABG pH 7.47 H (7.35-7.45) ABG pCO2 52 H (35-45) mmHg ABG pO2 81 L (83-108) mmHg ABG HCO3 38 H (21-25) mmol/L ABG Total CO2 39 H (19-24) mmol/L ABG O2 Saturation (94-97) % Chloride (98-107) mmol/L Carbon Dioxide (22-30) mmol/L BUN (9-20) mg/dL Creatinine (0.66-1.25) mg/dL POC Glucose (mg/dL) (75-99) mg/dL Phosphorus (2.5-4.5) mg/dL Urine Protein (Negative) Urine Glucose (UA) (Negative) Urine Blood (Negative) Urine RBC (0-5) /hpf Microbiology - Last 24 Hours (Table) 12/18/17 13:48 Gram Stain - Preliminary Sputum Sputum Culture - Preliminary Assessment and Plan Assessment: #1. Status epilepticus, in a patient with history of seizure disorder, and history of thalamic infarct first diagnosed in July 2017. Exact etiology of breakthrough seizures is unknown, patient is on a maintenance Keppra 750 mg twice a day. #2. Acute metabolic encephalopathy, continue to the above. Repeat CT of the brain today showed no acute intracranial hemorrhage, no mass effect or midline shift. Stable exam. #3. Acute hypoxic and hypercapnic respiratory failure and very to altered mental status, related to prolonged postictal period after multiple breakthrough seizures. Patient was unable to protect his airway, became apneic , requiring emergent intubation and placement on mechanical ventilation #4. Evidence of bibasilar infiltrates, most likely secondary to aspiration pneumonia. #5. 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 Missed his regular hemodialysis yesterday. His usual HD days are Saturday, , Saturday #6.history of lacunar stroke #7. Hypertension with chronic kidney disease, currently poorly controlled #8.History of poor medical compliance #9.chronic back pain with degenerative disc disease and stenosis #10. History of chronic nephrolithiasis #11. Nicotine dependence, ongoing Recommendation: Reviewed all his studies today including CT of the brain, abdomen and pelvis CT, x-rays of the chest, labs, we'll continue mechanical ventilation, continue supportive care measures, antibiotics, bronchodilators, dialysis, GI and DVT prophylaxis, nutritional support, not quite ready for extubation at this point, but we'll continue to follow on a daily basis. Critical care time is 40 minutes. Time with Patient: Greater than 30
[2017-12-19] MEDS: THIAMINE 100 MG TAB PO SCH (12:04)
[2017-12-19 12:13] LABS: Glucose,Whole Blood 92 mg/dL (75-99)
--- NOTE | 2017-12-19 13:35 | P.PN ---
Subjective Progress Note Date: 12/19/17 This is a 47-year-old male patient of Dr. Jaylen Madrid past medical history of end-stage renal disease on hemodialysis 3 times weekly, hypertension, seizure disorder. Patient had on July 062016 for TIA and was emergency room at that time for emergency center for post ictal state and hypertensive emergency by EMS with seizure activityand was seen in consultation by Dr. Viveros. . He was again sent into the emergency room on 12/18/2017 secondary to prolonged post ictal status, there is concern for at the emergency room with active state of alcohol withdrawal. patient normally goes for hemodialysis Saturday, however he missed his scheduled dialysis yesterday Saturday. Compliance medications are unknown, urine drug screen not done, alcohol level less than 10 Patient comes in with significant elevated blood pressure systolic of 257/126 highest blood pressure along with agitation tremors, he had while being detained at the emergency room waiting for ICU bed patient had 6 seizures in the emergency room despite Ativan IV pushes, he had to be prophylactically intubated secondary to status epilepticus, and required Ativan drip secondary to uncontrolled seizures despite Ativan CIWA protocol. Patient currently is on IV Keppra 1 g, propofol, and would be sent to ICU, Dr. Park on consult, and Dr. Malone on consult. According to ER nurses, patient has a large emesis while being intubated Patient patient was febrile upon ER admission, flu test was requested, patient was given labetalol 40 mg IV,, for the elevated heart rate of 150, Catapres patch 0.2 and hydralazine 10 mg every 4 hours. Shahrzad spoken to the for additional info, he has baseline control of bp however it gets this high with sbp over 200 if pain from cervical stenosis is not under control, he has seen 2 neurosugeon for cervical stenosis and has adviced that surgery will increase risk of surgical failures and recommended water physiotherapy. last ILS cervical area was with dr cohen in 08/2107. he takes tylenol 3 sparingly, he had an original rx in 07/2017 which hasn't been used up on its entirety. denies any alcohol dependency, not even a closet drinker. During his last admission in July 2017 for seizures and hypertensive urgency, he had an evolving thalamic infarct, in July 2017, imaging studies included There was concern for cervical spondylosis cervcial stenosis and recommended MRI of the cervical spine and orthopedic consult. Carotid duplex showed no stenosis. Echocardiogram revealed EF of 55-60%, no pulmonary hypertension, moderate concentric left hypertrophy, trace mitral regurgitation, trace tricuspid regurgitation. EEG of the brain showed moderate encephalopathy with no epileptiform waves l 12/19: Repeat chest x-ray shows interval retraction of the endotracheal tube, now appropriately placed in stable positioning of the enteric tube. Redemonstration of central vascular congestion and bibasilar opacities favored to represent atelectasis although pneumonia is also possible. Patient has intensive care management with Dr. Fraire, Dr. Park is following from nephrology and Dr. Viveros from neurology. EEG pending. Repeat CAT scan of brain is negative for acute findings. Patient remains intubated and on mechanical ventilation. His sedation is currently off. Keppra level is pending. Patient has been off labetalol drip since 5 AM. CAT scan of the chest suggests gastritis, combination of consolidation or atelectasis suggested pneumonia not excluded. Correlate for fluid overload as there is mild diffuse anasarca. Small pericardial effusion. Prominent small bowel loops but no discrete transition point. Generalized ileus or enteritis is favored. Splenomegaly. Bladder wall thickening may be atrophy or cystitis. Chronic kidney disease with nonobstructive renal calculi. Objective - Vital Signs Vital signs: Vital Signs Temp 99.3 F 12/19/17 08:00 Pulse 85 12/19/17 08:25 Resp 16 12/19/17 08:00 BP 119/64 12/19/17 08:00 Pulse Ox 97 12/19/17 08:00 Intake & Output 12/18/17 12/19/17 12/19/17 18:59 06:59 18:59 Intake Total 1.5 734.786 86.565 Output Total 895 830 Balance -893.5 -95.214 86.565 Weight 72.575 kg Intake: IV 200 Sodium Chloride 0.9% 1, 200 000 ml @ 20 mls/hr IV . Q24H [facility] Rx#:[id number] Intake, IV Titration 1.5 534.786 86.565 Amount LORazepam Vial 40 mg In 1.5 Dextrose 5% in Water 80 ml @ 1 MG/HR 2.5 mls/hr IV .Q24H [facility] Rx#: [id number] Labetalol 100 mg In 92 Sodium Chloride 0.9% 80 ml @ 2 MG/MIN 120 mls/hr IV .Q50M [facility] Rx#: [id number] Labetalol 100 mg In 220.166 Sodium Chloride 0.9% 80 ml @ 2 MG/MIN 120 mls/hr IV .Q50M [facility] Rx#: [id number] Propofol 1,000 mg In 222.62 86.565 Empty Bag 1 bag @ Titrate IV .Q0M [facility] Rx#: [id number] Output: Gastric Drainage 700 700 Urine 195 130 Other: Voiding Method Indwelling Catheter - Exam General appearance: average body habitus, cooperative, disheveled - EENT Eyes: anicteric sclerae, PERRLA - Respiratory Respiratory: bilateral: CTA, diminished - Cardiovascular Rhythm: regular Abnormal Heart Sounds: systolic murmur (Tachycardic) - Gastrointestinal General gastrointestinal: soft - Integumentary Integumentary: decreased turgor, normal - Psychiatric Intubated and sedated - Labs CBC & Chem 7: 12/19/17 04:52 12/19/17 04:52 Labs: Abnormal Lab Results - Last 24 Hours (Table) 12/18/17 12/18/17 12/18/17 Range/Units 13:36 14:17 15:05 RBC (4.30-5.90) m/uL Hgb (13.0-17.5) gm/dL Hct (39.0-53.0) % RDW (11.5-15.5) % Plt Count (150-450) k/uL Lymphocytes # (1.0-4.8) k/uL ABG pH 7.25 L (7.35-7.45) ABG pCO2 62 H (35-45) mmHg ABG pO2 171 H (83-108) mmHg ABG HCO3 27 H (21-25) mmol/L ABG Total CO2 29 H (19-24) mmol/L ABG O2 Saturation 98.8 H (94-97) % Chloride (98-107) mmol/L Carbon Dioxide (22-30) mmol/L BUN (9-20) mg/dL Creatinine (0.66-1.25) mg/dL POC Glucose (mg/dL) 114 H (75-99) mg/dL Phosphorus (2.5-4.5) mg/dL Urine Protein 3+ H (Negative) Urine Glucose (UA) 3+ H (Negative) Urine Blood Moderate H (Negative) Urine RBC 6 H (0-5) /hpf 12/18/17 12/19/17 12/19/17 Range/Units 18:05 04:52 04:52 RBC 2.96 L (4.30-5.90) m/uL Hgb 9.5 L D (13.0-17.5) gm/dL Hct 29.5 L (39.0-53.0) % RDW 16.5 H (11.5-15.5) % Plt Count 64 L (150-450) k/uL Lymphocytes # 0.8 L (1.0-4.8) k/uL ABG pH (7.35-7.45) ABG pCO2 (35-45) mmHg ABG pO2 (83-108) mmHg ABG HCO3 (21-25) mmol/L ABG Total CO2 (19-24) mmol/L ABG O2 Saturation (94-97) % Chloride 95 L (98-107) mmol/L Carbon Dioxide 33 H (22-30) mmol/L BUN 57 H (9-20) mg/dL Creatinine 9.33 H* (0.66-1.25) mg/dL POC Glucose (mg/dL) 108 H (75-99) mg/dL Phosphorus 7.3 H (2.5-4.5) mg/dL Urine Protein (Negative) Urine Glucose (UA) (Negative) Urine Blood (Negative) Urine RBC (0-5) /hpf 12/19/17 Range/Units 07:48 RBC (4.30-5.90) m/uL Hgb (13.0-17.5) gm/dL Hct (39.0-53.0) % RDW (11.5-15.5) % Plt Count (150-450) k/uL Lymphocytes # (1.0-4.8) k/uL ABG pH 7.47 H (7.35-7.45) ABG pCO2 52 H (35-45) mmHg ABG pO2 81 L (83-108) mmHg ABG HCO3 38 H (21-25) mmol/L ABG Total CO2 39 H (19-24) mmol/L ABG O2 Saturation (94-97) % Chloride (98-107) mmol/L Carbon Dioxide (22-30) mmol/L BUN (9-20) mg/dL Creatinine (0.66-1.25) mg/dL POC Glucose (mg/dL) (75-99) mg/dL Phosphorus (2.5-4.5) mg/dL Urine Protein (Negative) Urine Glucose (UA) (Negative) Urine Blood (Negative) Urine RBC (0-5) /hpf Microbiology - Last 24 Hours (Table) 12/18/17 13:48 Gram Stain - Preliminary Sputum Sputum Culture - Preliminary Assessment and Plan Plan: 1. Status epilepticus with known history of seizures after his CVA, prior history of thalamus infarct, in July 2017. Patient currently is intubated on 12/18/2017 at 1300 hrs. for prophylactic reasons, has multiple seizures while in the emergency room. Continue Keppra IV 1 g given him a patient was on maintenance 750 mg every 12 hours IV, nephrology Dr. Viveros. 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 Obtain Keppra levels. Monitor for aspirate the events, patient was febrile upon ER admission, influenza test negative urine drug screen negative alcohol level less than 10 2. Hypertensive emergency, possibly secondary to uncontrolled pain from cervical stenosis with his underlying renovascular hypertension. Patient currently is on Catapres 0.2 mg, labetalol 10 mg every 4 hours IV with renal dosing and hydralazine 10 mg every 4 hours when necessary for systolic blood pressure over 160Currently on Norvasc 5 mg twice daily, Catapres 0.3 mg twice daily, hydralazine 50 mg twice daily scheduled and IV push as needed, lisinopril 20 mg twice daily. will monitor and eval for pheochromocytoma. morphine for pain 3. History of left thalamus stroke July 2017. 325 mg rectally or NG/ G- tube 4. CKD stage v for with respiratory acidosis secondary to seizures, end-stage renal disease on hemodialysis Saturday, one missed treatments, Dr. Berg on consult 5. Concern for alcohol withdrawals, patient currently is on CIWA protocol 6. Acute hypoxic respiratory failure secondary seizures to rule out overload from missed dialysis treatments, seizure activity Dr. Fraire is on consult. Patient has been successfully intubated on 12/18/2017 at 1300 hrs at the emergency room. 7. End-stage renal disease and lactic acidosis on hemodialysis presenting with fluid overload secondary to noncompliance and missing 2 dialysis treatments. Patient is currently undergoing dialysis in the emergency center. Dr. Park is on consult. 8. Chronic cervical pain cervical stenosis Patient had pain management injections with Dr. Cohen in the past, last one 08/2017, has seen neurosurgeon in [facility], no current recommendation surgery, another in [place] neurosurgeon, who advised high risk for failures to undergo cervical spine surgery. rx morphine iv prn while intubated, once stabilized with seizures, will add gabapentin 9. Tobacco use and dependence and recently discharged on nicotine patch. Secondary to mentation from seizures and obtundation from that support, unknown status for tobacco use 10. Chronic thrombocytopenia. Monitor. 11. Insomnia, chronic sleep deprivation secondary to uncontrolled cervical stenosis pain, sleep episcopal is important for seizure control as well. once extubated will readdress this issue. currently on propofol on vent 12. Acute respiratory acidosis with chronic combined respiratory/metabolic compensation 13. DVT prophylaxis. Lovenox. 13 GI prophylaxis. Protonix IV Discharge planning to be determined Prognosis guarded Impression and plan of care have been directed as dictated by the signing physician. Doretha Brumfield nurse practitioner acting as scribe for signing physician.
--- NOTE | 2017-12-19 16:20 | EEG ---
ELECTROENCEPHALOGRAM REPORT DATE OF EE12/19/2017 ELECTROENCEPHALOGRAPHIC EXAMINATION REPORT INDICATION FOR EXAMINATION: This patient is a 47-year-old male admitted with multiple breakthrough seizures. Patient currently intubated on the ventilator in the intensive care unit. AGE: 47. EEG FINDINGS: A routine 21-channel awake digital EEG recording was accomplished utilizing the 10-20 international system with bipolar and referential montages. The background activity in the most alert resting state consists of a low to medium amplitude, poorly developed and poorly sustained 4-5 Hz activity over the posterior head regions. This posterior rhythm attenuates minimally to eye opening. There is a minimal amount of low amplitude 18-20 Hz beta activity seen maximally over the anterior head regions. Muscle and movement artifact was observed on a few occasions during the tracing. Hyperventilation was not performed. Photic stimulation at flash frequencies of 2-30 Hz produced a minimal occipital driving response. No epileptiform discharges were seen. IMPRESSION: This EEG gives evidence of a severe widespread diffuse disturbance in cerebral function. The EEG failed to reveal any focal, lateralized, or epileptiform abnormalities. If clinically indicated, a follow-up EEG is recommended. Clinical correlation is recommended. MMODL / IJN: [id number] /
--- NOTE | 2017-12-19 19:01 | P.PN ---
Subjective Progress Note Date: 12/19/17 This patient is a 47-year-old male currently evaluated in the intensive care unit. He remains intubated on the ventilator. Patient was admitted with recurrent seizures. He was loaded with IV levetiracetam yesterday in the emergency room. His level this morning came back therapeutic on the Keppra at 48.5. We will continue him on current dose. Patient was able to complete EEG today which was reviewed and is moderately slow with no epileptiform discharges. Patient is undergoing hemodialysis today. His creatinine level is coming down to 9.0. Nephrology and pulmonary medicine or monitoring him. He has had no further seizure activity today. As noted his Keppra level did come back therapeutic. He was treated yesterday for hypertensive urgency. His blood pressures are much better controlled today. He remains lethargic and remains on Diprivan drip. Plan is to possibly try to extubate the patient tomorrow. Patient was sent for a repeat computed tomography scan of the brain today. CAT scan reveals no acute intracranial hemorrhage, mass effect, or midline shift. Results were reviewed today with nursing staff at bedside. We will continue close neurological follow-up of this patient. His overall prognosis at this time remains very guarded. Objective - Vital Signs Vital signs: Vital Signs Temp 98.8 F 12/19/17 16:00 Pulse 74 12/19/17 18:00 Resp 15 12/19/17 18:00 BP 155/91 12/19/17 18:00 Pulse Ox 100 12/19/17 18:00 Intake & Output 12/18/17 12/19/17 12/19/17 18:59 06:59 18:59 Intake Total 1.5 349.575 7353.440 Output Total 778 385 4670 Balance -893.5 -95.214 -1425.560 Weight 72.575 kg 72.575 kg Intake: IV 200 665.0 Piperacillin-Tazobactam 3 25.0 .375 gm In Dextrose/Water 1 50ml.bag @ 12.5 mls/hr IVPB Q12H [facility] Rx#: [id number] Sodium Chloride 0.9% 1, 200 190 000 ml @ 20 mls/hr IV . Q24H [facility] Rx#:[id number] Sodium Chloride 0.9% 1, 350 000 ml @ 50 mls/hr IV . Q20H [facility] Rx#:[id number] levETIRAcetam IV 1,000 mg 100 In Saline 1 100ml.bag @ 400 mls/hr IVPB Q12HR [facility] Rx#:[id number] Intake, IV Titration 1.5 534.786 284.440 Amount LORazepam Vial 40 mg In 1.5 Dextrose 5% in Water 80 ml @ 1 MG/HR 2.5 mls/hr IV .Q24H [facility] Rx#: [id number] Labetalol 100 mg In 92 Sodium Chloride 0.9% 80 ml @ 2 MG/MIN 120 mls/hr IV .Q50M [facility] Rx#: [id number] Labetalol 100 mg In 220.166 Sodium Chloride 0.9% 80 ml @ 2 MG/MIN 120 mls/hr IV .Q50M [facility] Rx#: [id number] Propofol 1,000 mg In 222.62 284.440 Empty Bag 1 bag @ Titrate IV .Q0M [facility] Rx#: [id number] Tube Feeding 100 Output: Gastric Drainage 700 700 900 Urine 195 130 75 Other 1500 Other: Voiding Method Indwelling Catheter Indwelling Catheter - Exam Physical examination: PHYSICAL EXAMINATION: Patient is resting comfortably in bed. Patient remains intubated on the ventilator in the ICU. VITAL SIGNS: Blood pressure is [155/91]. Heart rate is [74]. Respiration is [16] . Temperature is [98.8]. HEENT: Head is atraumatic, neck is supple, there were no carotid bruits. CHEST: Lungs are clear to auscultation and percussion. CARDIAC: S1, S2 normal rate and rhythm. There is no murmur. ABDOMEN: Soft and nontender. Bowel sounds are present. EXTREMITIES: There is no pedal edema. Peripheral pulses are present. Neurological examination: Patient's neurological examination is unchanged from yesterday. He remains intubated and sedated on the ventilator. He is moving all 4 extremities to painful stimuli. - Labs CBC & Chem 7: 12/19/17 04:52 12/19/17 04:52 Labs: Abnormal Lab Results - Last 24 Hours (Table) 12/19/17 12/19/17 12/19/17 Range/Units 04:52 04:52 07:48 RBC 2.96 L (4.30-5.90) m/uL Hgb 9.5 L D (13.0-17.5) gm/dL Hct 29.5 L (39.0-53.0) % RDW 16.5 H (11.5-15.5) % Plt Count 64 L (150-450) k/uL Lymphocytes # 0.8 L (1.0-4.8) k/uL ABG pH 7.47 H (7.35-7.45) ABG pCO2 52 H (35-45) mmHg ABG pO2 81 L (83-108) mmHg ABG HCO3 38 H (21-25) mmol/L ABG Total CO2 39 H (19-24) mmol/L Chloride 95 L (98-107) mmol/L Carbon Dioxide 33 H (22-30) mmol/L BUN 57 H (9-20) mg/dL Creatinine 9.33 H* (0.66-1.25) mg/dL Phosphorus 7.3 H (2.5-4.5) mg/dL Microbiology - Last 24 Hours (Table) 12/18/17 14:56 Blood Culture - Preliminary Blood No Growth after 24 hours 12/18/17 13:45 Blood Culture - Preliminary Blood No Growth after 24 hours 12/18/17 13:48 Gram Stain - Preliminary Sputum Sputum Culture - Preliminary Assessment and Plan (1) Generalized complex partial epilepsy Current Visit: Yes Status: Acute Code(s): G40.209 - LOCAL-REL SYMPTC EPI W CMPLX PRT SEIZ,NOT NTRCT,W/O STAT EPI SNOMED Code(s): 198080463 (2) History of stroke Current Visit: Yes Status: Acute Code(s): Z86.73 - PRSNL HX OF TIA (TIA), AND CEREB INFRC W/O RESID DEFICITS SNOMED Code(s): 087339447 (3) Acute encephalopathy Current Visit: Yes Status: Acute Code(s): G93.40 - ENCEPHALOPATHY, UNSPECIFIED SNOMED Code(s): 7963813 (4) End stage renal disease on dialysis Current Visit: Yes Status: Acute Code(s): N18.6 - END STAGE RENAL DISEASE; Z99.2 - DEPENDENCE ON RENAL DIALYSIS SNOMED Code(s): 898528750 (5) Hypertensive urgency Current Visit: No Status: Resolved Code(s): I16.0 - HYPERTENSIVE URGENCY SNOMED Code(s): 742165658 Plan: This patient is a 47-year-old male admitted to hospital with multiple recurrent seizures. He was loaded with IV levetiracetam yesterday in the emergency room. He underwent a repeat computed tomography scan of the brain today the results of which are noted above. There is no acute intracranial abnormality. His Keppra blood level today came back therapeutic at 48.5. His routine EEG was reviewed and reveals no evidence of any epileptiform discharges. Patient will be maintained on current dose of Keppra. Plan is to consider weaning parameters tomorrow for the patient. We will continue close neurological follow -up this patient in the ICU. His overall prognosis at this time remains very guarded.
[2017-12-19] MEDS: QUEtiapine 25 MG TAB PO SCH (20:07)
[2017-12-19 23:50] LABS: Glucose,Whole Blood 86 mg/dL (75-99)
[2017-12-20] MEDS: LABETALOL 100 MG in SODIUM CHLORIDE 0.9% 80 ML IV SCH ×8 (01:06→08:09)
[2017-12-20] MEDS: IPRATROPIUM-ALBUTEROL 3 ML NEB INHALATION SCH ×5 (03:16→19:58)
[2017-12-20] MEDS: hydrALAZINE HCL 20 MG/ML 1 ML VIAL IVP SCH ×4 (03:35→16:45)
[2017-12-20 05:15] LABS: Anisocytosis Slight; Basophils # (A) 0.1 k/uL (0-0.2); Basophils % (A) 1 %; Calcium 8.2 mg/dL (8.4-10.2); Eosinophils # (A) 0.1 k/uL (0-0.7); Eosinophils % (A) 2 %; HCT 26.5 % (39.0-53.0); HGB 8.4 gm/dL (13.0-17.5); Hypochromasia Slight; Lymphocytes % (A) 16 %; MCH 32.6 pg (25.0-35.0); MCHC 31.6 g/dL (31.0-37.0); Macrocytosis Moderate; Magnesium 2.1 mg/dL (1.6-2.3); Mean Platelet Volume 7.4; Monocytes # (A) 0.4 k/uL (0-1.0); Monocytes % (A) 6 %; Neutrophils # (A) 4.4 k/uL (1.3-7.7); Neutrophils % (A) 73 %; Phosphorus 6.7 mg/dL (2.5-4.5); Potassium 5.1 mmol/L (3.5-5.1); RBC 2.57 m/uL (4.30-5.90); RDW 16.4 % (11.5-15.5); WBC 6.1 k/uL (3.8-10.6)
[2017-12-20 05:16] LABS: Platelet Count 65 k/uL (150-450)
[2017-12-20] MEDS: PROPOFOL 1,000 MG in EMPTY BAG 1 BAG IV SCH (05:30)
[2017-12-20] MEDS: PIPERACILLIN-TAZOBACTAM 3.375 GM in DEXTROSE/WATER 1 50ML.BAG IVPB SCH ×2 (05:31→17:42)
[2017-12-20] MEDS: SODIUM CHLORIDE 0.9% 1,000 ML IV SCH (06:38)
[2017-12-20 07:27] LABS: ABG Base Excess 4.8 mmol/L; ABG HCO3 30 mmol/L (21-25); ABG Oxygen Saturation 94.3 % (94-97); ABG PCO2 49 mmHg (35-45); ABG PH 7.39 (7.35-7.45); ABG PO2 76 mmHg (83-108); ABG TCO2 31 mmol/L (19-24)
[2017-12-20] MEDS: SEVELAMER 800 MG TAB PO SCH ×3 (08:09→17:42)
[2017-12-20] MEDS: levETIRAcetam IV 1,000 MG in SALINE 1 100ML.BAG IVPB SCH ×2 (08:10→20:53)
[2017-12-20] MEDS: LISINOPRIL 20 MG TAB PO SCH ×2 (08:10→20:50)
[2017-12-20] MEDS: ATORVASTATIN 20 MG TAB PO SCH (08:10)
[2017-12-20] MEDS: NICOTINE 14MG/24HR PATCH TRANSDERM SCH (08:10)
[2017-12-20] MEDS: CHLORHEXIDINE GLUCONATE 15 ML CUP MUCOUS MEM SCH ×2 (08:10→20:40)
[2017-12-20] MEDS: THIAMINE 100 MG TAB PO SCH (08:10)
[2017-12-20] MEDS: PANTOPRAZOLE 40 MG/10 ML VIAL IV SCH (08:10)
[2017-12-20] MEDS: ASPIRIN 325 MG TAB PO SCH (08:10)
[2017-12-20] MEDS: ENOXAPARIN 30 MG/0.3 ML SYRINGE SQ SCH (08:11)
[2017-12-20] MEDS: CALCIUM ACETATE 667 MG CAP PO SCH ×3 (08:11→17:42)
[2017-12-20] MEDS: SENNOSIDES-DOCUSATE SODIUM 1 EACH TAB PO SCH (08:12)
--- NOTE | 2017-12-20 08:12 | XR ---
EXAMINATION TYPE: XR abdomen 1V DATE OF EXAM: 12/20/2017 COMPARISON: NONE INDICATION: Ileus TECHNIQUE: Single view abdomen supine view FINDINGS: There is a normal bowel gas pattern. Nasogastric tube has its tip located in the left upper quadrant of the abdomen. Psoas margins are normal. No organomegaly is present. Multiple bilateral renal stones are present. IMPRESSION: 1. Renal stones. 2. Nasogastric tube left upper quadrant abdomen. 3. Normal bowel gas pattern
--- NOTE | 2017-12-20 09:30 | XR ---
EXAMINATION TYPE: XR chest 1V portable DATE OF EXAM: 12/20/2017 COMPARISON: 12/18/2017 HISTORY: Endotracheal tube placement TECHNIQUE: Single frontal view of the chest is obtained. FINDINGS: Patchy right basilar airspace disease is more confluent on the prior exam concerning for p neumonia. No new focal opacity, pleural effusion or pneumothorax. Linear retrocardiac airspace diseas e is favored to represent atelectasis. Endotracheal tube and enteric tubes are similar to the prior a nd appropriately placed. IMPRESSION: 1. Increasing confluence of the right basilar opacity suspicious for pneumonia. 2. Satisfactory placement of the endotracheal and enteric tubes.
--- NOTE | 2017-12-20 12:48 | P.PN ---
Subjective Progress Note Date: 12/20/17 Principal diagnosis: Acute status epilepticus Jose is a 47-year-old white male patient that was brought to the emergency department by EMS on 12/18/2017 at 0457 in the morning for complaints of generalized tonic-clonic seizures. Patient's family had called 911, patient was reportedly postictal, with altered mentation, very combative, fighting with the drafter assistant. Patient's has reportedly told the ER staff that the patient had not been feeling good for last couple of days, and missed his dialysis on Saturday. Patient is known to have ESRD on hemodialysis, and his usual days are Tuesdays and Saturdays. Per , patient did have his usual Saturday hemodialysis. It is unknown as to what type of symptoms he was having when he was not feeling good. In the emergency room patient had 4 more episodes of grand mal seizures lasting 1-2 minutes. He was given the loading dose of IV Keppra up thousand milligrams. He does have an underlying seizure disorder, he is on maintenance Keppra 750 mg twice a day, is unclear at this time if the patient is compliant with his medications. He was previously hospitalized in July for status epilepticus, acute hypoxic respiratory failure secondary to pulmonary edema, requiring intubation and mechanical ventilation. During that admission patient was found to have a thalamic infarct. CT head on 12/18/2017 showed no acute intracranial hemorrhage or mass effect. There was a hypodense focus within the left thalamus likely indicating a lacunar infarct, age indeterminate. This finding was felt to be chronic and present on the previous exam on 07/22/2017, although not as well delineated. Patient's twelve-lead EKG showed sinus tachycardia with a rate of 123 BPM. Chest x-ray showed chronic changes without any acute cardiopulmonary process. We were consulted in regards to patient's altered mentation and the possibility of requiring intubation and mechanical ventilation in regards to his post ictal status and inability to protect his airway. Upon my evaluation, patient was seen in the emergency room, resting on the gurney, unresponsive to verbal or painful stimuli. Initially he was breathing spontaneously, the head of the bed was elevated for aspiration precautions. He was given a few rounds of lorazepam IV push for seizure activity earlier in the day. Patient was noted to be very hypertensive, his systolic blood pressures have been ranging in the 192-235 mm/Hg, and his diastolic has been ranging from 100-138 mmHg. his pulse ox was 95 on 4 L per nasal cannula, patient does not have an gag reflex, some oral secretions were suctioned out of his oropharynx. Shortly afterward patient became apneic, started seizing, patient was ventilated per Ambu bag, and emergently intubated by the ER physician. We will put him on vent settings of assist control with a rate of 12, tidal vital 400, FiO2 of 100% and the PEEP of 5. Patient was seen in consultation by nephrology, who is planning on dialyzing the patient today and tomorrow. They had also made recommendations for blood pressure control. Patient will be transferred to the intensive care once a bed is available. Patient was reevaluated today on 12/19/2017, remains on mechanical ventilation, sedated, patient is heading down shortly for a CT of the head, and considering the patient is having significant drainage from the nasogastric tube, recommended a CT of the abdomen and pelvis to be done at the same time. In the meantime the patient remains sedated, in no distress, no seizure activity overnight. His vent settings are basically the same however his FiO2 is down to 50%. CBC showed WBC count of 7.3 hemoglobin is 9.5. ABG showed a pO2 of 81 pCO2 of 52 pH of 7.47. Patient was dialyzed yesterday, and he is going to be dialyzed again today. His BUN is 57 creatinine is 9.33. Patient was reevaluated today on 12/20/2017, no seizure activity over the last 2 days since he was admitted to the ICU. Patient remains on mechanical ventilation, intubated, I went ahead and took him off propofol, and awakened the patient, gave the patient a short weaning trial on pressure support and CPAP , evaluated his weaning parameters, reviewed his chest x-ray which continues to show some right lower lobe pneumonia, neurologically the patient was noted to be intact, reviewed all his labs including his ABG showing pO2 of 76 pCO2 of 49 pH of 7.39. CBC showing a hemoglobin of 8. for otherwise unremarkable. Basic metabolic profile is also normal. Hence I proceeded to giving the patient a short weaning trial on pressure support and CPAP, and I was at bedside all along , within 20 minutes of being on pressure support and CPAP, went ahead and recommended extubating the patient. Objective - Vital Signs Vital signs: Vital Signs Temp 98.0 F 12/20/17 08:00 Pulse 80 12/20/17 12:02 Resp 15 12/20/17 09:00 BP 120/69 12/20/17 09:00 Pulse Ox 97 12/20/17 09:00 Intake & Output 12/19/17 12/20/17 12/20/17 18:59 06:59 18:59 Intake Total 5470.662 8140.80 510.69 Output Total 2475 100 130 Balance -3321.929 4052.80 380.69 Weight 72.575 kg 68 kg 68 kg Intake: IV 665.0 800 225 Piperacillin-Tazobactam 3 25.0 100 .375 gm In Dextrose/Water 1 50ml.bag @ 12.5 mls/hr IVPB Q12H [facility] Rx#: [id number] Sodium Chloride 0.9% 1, 190 000 ml @ 20 mls/hr IV . Q24H [facility] Rx#:[id number] Sodium Chloride 0.9% 1, 350 600 125 000 ml @ 50 mls/hr IV . Q20H [facility] Rx#:[id number] levETIRAcetam IV 1,000 mg 100 100 100 In Saline 1 100ml.bag @ 400 mls/hr IVPB Q12HR [facility] Rx#:[id number] Intake, IV Titration 284.440 182.80 75.69 Amount Propofol 1,000 mg In 284.440 182.80 75.69 Empty Bag 1 bag @ Titrate IV .Q0M [facility] Rx#: [id number] Tube Feeding 100 280 90 Other 90 120 Output: Gastric Drainage 900 Urine 75 100 130 Other 1500 Other: Voiding Method Indwelling Catheter Indwelling Catheter Indwelling Catheter - Exam Physical Exam: Revealed a 47-year-old white male in no distress. Endotracheal tube is intact. Orogastric tube is intact. Head: Atraumatic, normocephalic, heavily bearded. HEENT:[Neck is supple.] [No neck masses.] [No thyromegaly.] [No JVD.] Moist mucous membranes, no stridor. Chest: [Crackles at the right base, no rhonchi, no wheezes, symmetrical expansion, no chest wall tenderness.] Cardiac Exam: [Normal S1 and S2, no S3 gallop, no murmur.] Abdomen: [Soft, nontender, no megaly, no rebound, no guarding, normal bowel sounds.] Extremities: [No clubbing, no edema, no cyanosis.] Neurological Exam: Alert oriented 3. [No focal neurologic deficit. Psychiatric: Normal mood, affect, and intact mental status examination.] - Labs CBC & Chem 7: 12/20/17 04:47 12/20/17 04:47 Labs: Abnormal Lab Results - Last 24 Hours (Table) 12/20/17 12/20/17 12/20/17 Range/Units 04:47 04:47 07:25 RBC 2.57 L (4.30-5.90) m/uL Hgb 8.4 L (13.0-17.5) gm/dL Hct 26.5 L (39.0-53.0) % MCV 103.0 H (80.0-100.0) fL RDW 16.4 H (11.5-15.5) % Plt Count 65 L (150-450) k/uL ABG pCO2 49 H (35-45) mmHg ABG pO2 76 L (83-108) mmHg ABG HCO3 30 H (21-25) mmol/L ABG Total CO2 31 H (19-24) mmol/L Sodium 136 L (137-145) mmol/L BUN 33 H (9-20) mg/dL Creatinine 6.50 H* (0.66-1.25) mg/dL Calcium 8.2 L (8.4-10.2) mg/dL Phosphorus 6.7 H (2.5-4.5) mg/dL Microbiology - Last 24 Hours (Table) 12/18/17 13:48 Gram Stain - Final Sputum Sputum Culture - Final 12/18/17 14:56 Blood Culture - Preliminary Blood No Growth after 24 hours 12/18/17 13:45 Blood Culture - Preliminary Blood No Growth after 24 hours Assessment and Plan Assessment: #1. Status epilepticus, in a patient with history of seizure disorder, and history of thalamic infarct first diagnosed in July 2017. Exact etiology of breakthrough seizures is unknown, patient is on a maintenance Keppra 750 mg twice a day. #2. Acute metabolic encephalopathy, resolved . Repeat CT of the brain today showed no acute intracranial hemorrhage, no mass effect or midline shift. Stable exam. #3. Acute hypoxic and hypercapnic respiratory failure and very to altered mental status, related to prolonged postictal period after multiple breakthrough seizures. Patient was unable to protect his airway, became apneic , requiring emergent intubation and placement on mechanical ventilation #4. Evidence of bibasilar infiltrates, most likely secondary to aspiration pneumonia. Right lower lobe pneumonia/aspiration pneumonia still present #5. 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 #6.history of lacunar stroke #7. Hypertension with chronic kidney disease, currently poorly controlled #8.History of poor medical compliance #9.chronic back pain with degenerative disc disease and stenosis #10. History of chronic nephrolithiasis #11. Nicotine dependence, ongoing Recommendation: Continue present supportive care measures, however considering the patient is doing well from the neurological perspective, and after reviewing his chest x-ray ABG, and after assessing the patient's weaning parameters, I proceeded to weaning and extubating the patient while I was at bedside. Patient tolerated the extubation well, we'll keep him in the ICU for today, and we'll likely transfer out of the ICU in the next 24 hours if he remains seizure-free. Critical care time is 35 minutes.
--- NOTE | 2017-12-20 13:33 | P.PN ---
Subjective Progress Note Date: 12/20/17 This is a 47-year-old male patient of Dr. Jaylen Madrid past medical history of end-stage renal disease on hemodialysis 3 times weekly, hypertension, seizure disorder. Patient had on July 062016 for TIA and was emergency room at that time for emergency center for post ictal state and hypertensive emergency by EMS with seizure activityand was seen in consultation by Dr. Viveros. . He was again sent into the emergency room on 12/18/2017 secondary to prolonged post ictal status, there is concern for at the emergency room with active state of alcohol withdrawal. patient normally goes for hemodialysis Saturday, however he missed his scheduled dialysis yesterday Saturday. Compliance medications are unknown, urine drug screen not done, alcohol level less than 10 Patient comes in with significant elevated blood pressure systolic of 257/126 highest blood pressure along with agitation tremors, he had while being detained at the emergency room waiting for ICU bed patient had 6 seizures in the emergency room despite Ativan IV pushes, he had to be prophylactically intubated secondary to status epilepticus, and required Ativan drip secondary to uncontrolled seizures despite Ativan CIWA protocol. Patient currently is on IV Keppra 1 g, propofol, and would be sent to ICU, Dr. Park on consult, and Dr. Malone on consult. According to ER nurses, patient has a large emesis while being intubated Patient patient was febrile upon ER admission, flu test was requested, patient was given labetalol 40 mg IV,, for the elevated heart rate of 150, Catapres patch 0.2 and hydralazine 10 mg every 4 hours. Shahrzad spoken to the for additional info, he has baseline control of bp however it gets this high with sbp over 200 if pain from cervical stenosis is not under control, he has seen 2 neurosugeon for cervical stenosis and has adviced that surgery will increase risk of surgical failures and recommended water physiotherapy. last ILS cervical area was with dr cohen in 08/2107. he takes tylenol 3 sparingly, he had an original rx in 07/2017 which hasn't been used up on its entirety. denies any alcohol dependency, not even a closet drinker. During his last admission in July 2017 for seizures and hypertensive urgency, he had an evolving thalamic infarct, in July 2017, imaging studies included There was concern for cervical spondylosis cervcial stenosis and recommended MRI of the cervical spine and orthopedic consult. Carotid duplex showed no stenosis. Echocardiogram revealed EF of 55-60%, no pulmonary hypertension, moderate concentric left hypertrophy, trace mitral regurgitation, trace tricuspid regurgitation. EEG of the brain showed moderate encephalopathy with no epileptiform waves l 2/: Repeat chest x-ray shows interval retraction of the endotracheal tube, now appropriately placed in stable positioning of the enteric tube. Redemonstration of central vascular congestion and bibasilar opacities favored to represent atelectasis although pneumonia is also possible. Patient has intensive care management with Dr. Fraire, Dr. Park is following from nephrology and Dr. Viveros from neurology. EEG pending. Repeat CAT scan of brain is negative for acute findings. Patient remains intubated and on mechanical ventilation. His sedation is currently off. Keppra level is pending. Patient has been off labetalol drip since 5 AM. CAT scan of the chest suggests gastritis, combination of consolidation or atelectasis suggested pneumonia not excluded. Correlate for fluid overload as there is mild diffuse anasarca. Small pericardial effusion. Prominent small bowel loops but no discrete transition point. Generalized ileus or enteritis is favored. Splenomegaly. Bladder wall thickening may be atrophy or cystitis. Chronic kidney disease with nonobstructive renal calculi. 2/2: Patient was successfully extubated this morning. He is complaining of pain for which gabapentin 100 mg twice daily as been added. Patient also noted to have thrush for which Mycelex added. Hemoglobin is down 8.4, BUN 33 and creatinine 6.5. Repeat Keppra level is 31.2. Sputum culture in progress. Blood cultures are showing no growth 2. Objective - Vital Signs Vital signs: Vital Signs Temp 97.7 F 12/20/17 04:00 Pulse 69 12/20/17 07:52 Resp 16 12/20/17 07:00 BP 136/82 12/20/17 07:00 Pulse Ox 98 12/20/17 07:00 Intake & Output 12/19/17 12/20/17 12/20/17 18:59 06:59 18:59 Intake Total 3360.774 5393.80 Output Total 2475 100 Balance -7951.388 9124.80 Weight 72.575 kg 68 kg Intake: IV 665.0 800 Piperacillin-Tazobactam 3 25.0 100 .375 gm In Dextrose/Water 1 50ml.bag @ 12.5 mls/hr IVPB Q12H KRISTY Rx#: [id number] Sodium Chloride 0.9% 1, 190 000 ml @ 20 mls/hr IV . Q24H KRISTY Rx#:[id number] Sodium Chloride 0.9% 1, 350 600 000 ml @ 50 mls/hr IV . Q20H KRISTY Rx#:[id number] levETIRAcetam IV 1,000 mg 100 100 In Saline 1 100ml.bag @ 400 mls/hr IVPB Q12HR KRISTY Rx#:[id number] Intake, IV Titration 284.440 182.80 Amount Propofol 1,000 mg In 284.440 182.80 Empty Bag 1 bag @ Titrate IV .Q0M KRISTY Rx#: [id number] Tube Feeding 100 280 Other 90 Output: Gastric Drainage 900 Urine 75 100 Other 1500 Other: Voiding Method Indwelling Catheter Indwelling Catheter - Exam General appearance: average body habitus, cooperative, disheveled - EENT Eyes: anicteric sclerae, PERRLA - Respiratory Respiratory: bilateral: CTA, diminished - Cardiovascular Rhythm: regular Abnormal Heart Sounds: systolic murmur (Tachycardic) - Gastrointestinal General gastrointestinal: soft - Integumentary Integumentary: decreased turgor, normal - Psychiatric Intubated and sedated - Labs CBC & Chem 7: 12/20/17 04:47 12/20/17 04:47 Labs: Abnormal Lab Results - Last 24 Hours (Table) 12/20/17 12/20/17 12/20/17 Range/Units 04:47 04:47 07:25 RBC 2.57 L (4.30-5.90) m/uL Hgb 8.4 L (13.0-17.5) gm/dL Hct 26.5 L (39.0-53.0) % MCV 103.0 H (80.0-100.0) fL RDW 16.4 H (11.5-15.5) % Plt Count 65 L (150-450) k/uL ABG pCO2 49 H (35-45) mmHg ABG pO2 76 L (83-108) mmHg ABG HCO3 30 H (21-25) mmol/L ABG Total CO2 31 H (19-24) mmol/L Sodium 136 L (137-145) mmol/L BUN 33 H (9-20) mg/dL Creatinine 6.50 H* (0.66-1.25) mg/dL Calcium 8.2 L (8.4-10.2) mg/dL Phosphorus 6.7 H (2.5-4.5) mg/dL Microbiology - Last 24 Hours (Table) 12/18/17 14:56 Blood Culture - Preliminary Blood No Growth after 24 hours 12/18/17 13:45 Blood Culture - Preliminary Blood No Growth after 24 hours 12/18/17 13:48 Gram Stain - Preliminary Sputum Sputum Culture - Preliminary Assessment and Plan Plan: 1. Status epilepticus with known history of seizures after his CVA, prior history of thalamus infarct, in July 2017. Patient currently is intubated on 12/18/2017 at 1300 hrs. for prophylactic reasons, has multiple seizures while in the emergency room. Continue Keppra IV 1 g given him a patient was on maintenance 750 mg every 12 hours IV, nephrology Dr. Viveros. Consult with Dr. Fraire auto travel counselor. Obtain Keppra levels. Monitor for aspirate the events, patient was febrile upon ER admission, influenza test negative urine drug screen negative alcohol level less than 10. 2. Hypertensive emergency, possibly secondary to uncontrolled pain from cervical stenosis with his underlying renovascular hypertension. Patient currently is on Catapres 0.2 mg, labetalol 10 mg every 4 hours IV with renal dosing and hydralazine 10 mg every 4 hours when necessary for systolic blood pressure over 160Currently on Norvasc 5 mg twice daily, Catapres 0.3 mg twice daily, hydralazine 50 mg twice daily scheduled and IV push as needed, lisinopril 20 mg twice daily. will monitor and eval for pheochromocytoma. morphine for pain 3. History of left thalamus stroke July 2017. 325 mg rectally or NG/ G- tube 4. CKD stage v for with respiratory acidosis secondary to seizures, end-stage renal disease on hemodialysis Saturday, one missed treatments, Dr. Berg on consult 5. Concern for alcohol withdrawals, patient currently is on CIWA protocol 6. Acute hypoxic respiratory failure secondary seizures to rule out overload from missed dialysis treatments, seizure activity Dr. Fraire is on consult. Patient has been successfully intubated on 12/18/2017 at 1300 hrs at the emergency room. Patient has been extubated. 7. End-stage renal disease and lactic acidosis on hemodialysis presenting with fluid overload secondary to noncompliance and missing 2 dialysis treatments. Patient is currently undergoing dialysis in the emergency center. Dr. Park is on consult. 8. Chronic cervical pain cervical stenosis Patient had pain management injections with Dr. Cohen in the past, last one 08/2017, has seen neurosurgeon in [facility], no current recommendation surgery, another in [place] neurosurgeon, who advised high risk for failures to undergo cervical spine surgery. rx morphine iv prn while intubated, once stabilized with seizures, will add gabapentin 100 mg twice daily 9. Tobacco use and dependence and recently discharged on nicotine patch. Secondary to mentation from seizures and obtundation from that support, unknown status for tobacco use 10. Chronic thrombocytopenia. Monitor. 11. Insomnia, chronic sleep deprivation secondary to uncontrolled cervical stenosis pain, sleep latter-day is important for seizure control as well. once extubated will readdress this issue. currently on propofol on vent 12. Acute respiratory acidosis with chronic combined respiratory/metabolic compensation 13. DVT prophylaxis. Lovenox. 13 GI prophylaxis. Protonix IV Discharge planning to be determined Prognosis guarded Impression and plan of care have been directed as dictated by the signing physician. Doretha Brumfield nurse practitioner acting as scribe for signing physician.
--- NOTE | 2017-12-20 14:29 | PN ---
PROGRESS NOTE Patient is seen for followup for end-stage renal disease. He is currently awake. He is on the vent. He will most likely be extubated today. Patient was dialyzed yesterday. He will be scheduled for hemodialysis tomorrow. PHYSICAL EXAMINATION: On examination, blood pressure is 120/69, heart rate 81 per minute. He is afebrile. EXAMINATION OF THE HEART: S1, S2. EXAMINATION OF THE LUNGS: Decreased breath sounds at the bases. Abdomen is soft, nontender. Examination of lower extremities shows no evidence of edema. BUSINESS ANALY[employer] exam shows patient moving all 4 extremities. LABS: Labs show sodium 136, potassium 5.1, serum creatinine 6.5, phosphorus was 6.7. ASSESSMENT: 1. End-stage renal disease, on hemodialysis on a Saturday, , Saturday schedule. Patient will be dialyzed tomorrow. 2. Ventilator-dependent respiratory failure, for extubation today. 3. Recurrent seizures, maintained on Keppra, being followed by Neurology. 4. History of cerebrovascular accident. 5. Hypertension, now better controlled. 6. 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 PLAN: Hemodialysis in a.m. Continue current antihypertensive regimen. MMODL / IJN: [id number] /
[2017-12-20] MEDS: CLOTRIMAZOLE TROCHE 10 MG TROCHE MUCOUS MEM SCH ×3 (14:39→20:51)
[2017-12-20] MEDS: GABAPENTIN 100 MG CAP PO SCH ×2 (14:39→20:50)
[2017-12-20] MEDS: LABETALOL 5 MG/ML VIAL MDV IVP PRN (16:44)
[2017-12-20] MEDS ORDERED: LABETALOL 5 MG/ML VIAL MDV IVP STA (17:07)
--- NOTE | 2017-12-20 17:21 | P.PN ---
Subjective Progress Note Date: 12/20/17 This patient is a 47-year-old right-handed white male who was seen yesterday in neurology consultation for recurrent seizures. Patient was intubated at that time. He is on Keppra monotherapy for seizure prophylaxis. His Keppra level yesterday was therapeutic at 48.5 he is been maintained on Keppra 1000 mg IV piggyback every 12 hours. He was sent for a repeat computed tomography scan of the brain yesterday which was negative for any acute changes. The patient was able to be extubated this morning. He is now doing much better in the ICU. He is following simple commands. His repeat Keppra level done yesterday came back therapeutic at 31.2. He has had no further seizure activity over the last 2 days. He seems to be making good progress. Chest x-ray continues to show right lower lobe pneumonia. He is on antibiotic therapy for this condition as well. Blood pressure also seems to be doing much better today. We will continue close neurological follow-up with this patient with close monitoring for history of seizure disorder. His overall prognosis at this time remains guarded. Case was discussed at length with the patient's who was at bedside. All of her questions were answered. She is aware of his guarded condition. Objective - Vital Signs Vital signs: Vital Signs Temp 98.0 F 12/20/17 08:00 Pulse 72 12/20/17 09:00 Resp 15 12/20/17 09:00 BP 120/69 12/20/17 09:00 Pulse Ox 97 12/20/17 09:00 Intake & Output 12/19/17 12/20/17 12/20/17 18:59 06:59 18:59 Intake Total 8538.665 3294.80 510.69 Output Total 2475 100 130 Balance -5530.479 7142.80 380.69 Weight 72.575 kg 68 kg 68 kg Intake: IV 665.0 800 225 Piperacillin-Tazobactam 3 25.0 100 .375 gm In Dextrose/Water 1 50ml.bag @ 12.5 mls/hr IVPB Q12H KRISTY Rx#: [id number] Sodium Chloride 0.9% 1, 190 000 ml @ 20 mls/hr IV . Q24H KRISTY Rx#:[id number] Sodium Chloride 0.9% 1, 350 600 125 000 ml @ 50 mls/hr IV . Q20H KRISTY Rx#:[id number] levETIRAcetam IV 1,000 mg 100 100 100 In Saline 1 100ml.bag @ 400 mls/hr IVPB Q12HR KRISTY Rx#:[id number] Intake, IV Titration 284.440 182.80 75.69 Amount Propofol 1,000 mg In 284.440 182.80 75.69 Empty Bag 1 bag @ Titrate IV .Q0M KRISTY Rx#: [id number] Tube Feeding 100 280 90 Other 90 120 Output: Gastric Drainage 900 Urine 75 100 130 Other 1500 Other: Voiding Method Indwelling Catheter Indwelling Catheter Indwelling Catheter - Exam Physical examination: PHYSICAL EXAMINATION: Patient is resting comfortably in bed. Patient remains intubated on the ventilator in the ICU. VITAL SIGNS: Blood pressure is [174/93]. Heart rate is [89]. Respiration is [17] . Temperature is [98.2]. HEENT: Head is atraumatic, neck is supple, there were no carotid bruits. CHEST: Lungs are clear to auscultation and percussion. CARDIAC: S1, S2 normal rate and rhythm. There is no murmur. ABDOMEN: Soft and nontender. Bowel sounds are present. EXTREMITIES: There is no pedal edema. Peripheral pulses are present. Neurological examination: Patient was extubated off the ventilator this morning. He is resting comfortably in bed. He is alert and oriented 2. He is following simple commands. No focal weakness on examination. Deep tendon reflexes are 2+ and symmetric. Plantar responses flexor bilaterally. - Labs CBC & Chem 7: 12/20/17 04:47 12/20/17 04:47 Labs: Abnormal Lab Results - Last 24 Hours (Table) 12/20/17 12/20/17 12/20/17 Range/Units 04:47 04:47 07:25 RBC 2.57 L (4.30-5.90) m/uL Hgb 8.4 L (13.0-17.5) gm/dL Hct 26.5 L (39.0-53.0) % MCV 103.0 H (80.0-100.0) fL RDW 16.4 H (11.5-15.5) % Plt Count 65 L (150-450) k/uL ABG pCO2 49 H (35-45) mmHg ABG pO2 76 L (83-108) mmHg ABG HCO3 30 H (21-25) mmol/L ABG Total CO2 31 H (19-24) mmol/L Sodium 136 L (137-145) mmol/L BUN 33 H (9-20) mg/dL Creatinine 6.50 H* (0.66-1.25) mg/dL Calcium 8.2 L (8.4-10.2) mg/dL Phosphorus 6.7 H (2.5-4.5) mg/dL Microbiology - Last 24 Hours (Table) 12/18/17 14:56 Blood Culture - Preliminary Blood No Growth after 24 hours 12/18/17 13:45 Blood Culture - Preliminary Blood No Growth after 24 hours Assessment and Plan (1) Generalized complex partial epilepsy Current Visit: Yes Status: Acute Code(s): G40.209 - LOCAL-REL SYMPTC EPI W CMPLX PRT SEIZ,NOT NTRCT,W/O STAT EPI SNOMED Code(s): 186094813 (2) History of stroke Current Visit: Yes Status: Acute Code(s): Z86.73 - PRSNL HX OF TIA (TIA), AND CEREB INFRC W/O RESID DEFICITS SNOMED Code(s): 886714727 (3) Acute encephalopathy Current Visit: Yes Status: Acute Code(s): G93.40 - ENCEPHALOPATHY, UNSPECIFIED SNOMED Code(s): 5801110 (4) End stage renal disease on dialysis Current Visit: Yes Status: Acute Code(s): N18.6 - END STAGE RENAL DISEASE; Z99.2 - DEPENDENCE ON RENAL DIALYSIS SNOMED Code(s): 265587522 Plan: This patient is a 47-year-old male who was extubated today in the intensive care unit as he was admitted with acute respiratory failure and recurrent seizures. Patient is currently on Keppra monotherapy and his most recent Keppra blood level done yesterday was therapeutic at 31.2. Patient is now extubated and is able to follow simple commands. He has had no further seizures for the past 2 days. We will continue him on Keppra for seizure prophylaxis. He underwent routine EEG which was diffusely slow with no epileptiform discharges noted yesterday. He also had a repeat computed tomography scan of the brain which was negative for any acute changes. No evidence of acute stroke or hemorrhage. Patient will continue close monitoring in the ICU tonight. He is showing significant improvement overall in mental status. We will continue to monitor his condition closely during this admission. Patient and his were updated on all of his test results and laboratory testing including his Keppra levels. The patient and his are advised that he cannot drive in the [facility] for a period of 6 months following his last seizure event. They are aware of this restriction as he has had multiple breakthrough seizures last year as well. His overall prognosis at this time remains guarded.
[2017-12-20] MEDS: hydrALAZINE HCL 50 MG TAB PO SCH ×2 (17:42→22:44)
[2017-12-20] MEDS: QUEtiapine 25 MG TAB PO SCH (20:50)
[2017-12-20] MEDS: cloNIDine HCL 0.1 MG TAB PO SCH (20:50)
[2017-12-21 05:05] LABS: Basophils % (A) 1 %; Eosinophils # (A) 0.1 k/uL (0-0.7); Eosinophils % (A) 2 %; HCT 24.5 % (39.0-53.0); HGB 7.9 gm/dL (13.0-17.5); Hypochromasia Slight; Lymphocytes # (A) 0.7 k/uL (1.0-4.8); Lymphocytes % (A) 15 %; MCH 32.7 pg (25.0-35.0); MCHC 32.3 g/dL (31.0-37.0); MCV 101.3 fL (80.0-100.0); Macrocytosis Slight; Mean Platelet Volume 7.5; Monocytes # (A) 0.2 k/uL (0-1.0); Monocytes % (A) 5 %; Neutrophils # (A) 3.5 k/uL (1.3-7.7); Neutrophils % (A) 75 %; RBC 2.42 m/uL (4.30-5.90); WBC 4.6 k/uL (3.8-10.6)
[2017-12-21 05:12] LABS: Platelet Count 67 k/uL (150-450)
[2017-12-21 05:18] LABS: Magnesium 2.2 mg/dL (1.6-2.3); Potassium 4.9 mmol/L (3.5-5.1)
[2017-12-21 05:32] LABS: Phosphorus 8.5 mg/dL (2.5-4.5)
[2017-12-21] MEDS: SODIUM CHLORIDE 0.9% 1,000 ML IV SCH ×2 (05:41→22:17)
[2017-12-21] MEDS: PIPERACILLIN-TAZOBACTAM 3.375 GM in DEXTROSE/WATER 1 50ML.BAG IVPB SCH ×2 (05:41→17:15)
--- NOTE | 2017-12-21 07:15 | XR ---
EXAMINATION TYPE: XR chest 1V portable DATE OF EXAM: 12/21/2017 HISTORY: Tube placement. REFERENCE: Previous study dated 12/20/2017. FINDINGS: The study is moderately rotated. Patient has been extubated. The NG tube is been removed. The heart is enlarged. There is vascular congestion without jamel edema. There is bibasilar airspace disease, worse on the left than the right. There is a left-sided effusion. IMPRESSION: 1. CARDIOMEGALY. 2. VASCULAR CONGESTION. 3. BIBASILAR AIRSPACE DISEASE, WORSE ON THE LEFT THAN THE RIGHT. 4. LEFT-SIDED EFFUSION.
[2017-12-21] MEDS: SEVELAMER 800 MG TAB PO SCH ×3 (08:21→17:16)
[2017-12-21] MEDS: cloNIDine HCL 0.1 MG TAB PO SCH ×2 (08:21→20:43)
[2017-12-21] MEDS: NICOTINE 14MG/24HR PATCH TRANSDERM SCH (08:21)
[2017-12-21] MEDS: CALCIUM ACETATE 667 MG CAP PO SCH ×3 (08:21→18:05)
[2017-12-21] MEDS: ATORVASTATIN 20 MG TAB PO SCH (08:21)
[2017-12-21] MEDS: CLOTRIMAZOLE TROCHE 10 MG TROCHE MUCOUS MEM SCH ×4 (08:22→20:44)
[2017-12-21] MEDS: GABAPENTIN 100 MG CAP PO SCH ×2 (08:22→20:42)
[2017-12-21] MEDS: SENNOSIDES-DOCUSATE SODIUM 1 EACH TAB PO SCH (08:23)
[2017-12-21] MEDS: PANTOPRAZOLE 40 MG/10 ML VIAL IV SCH (08:23)
[2017-12-21] MEDS: LISINOPRIL 20 MG TAB PO SCH ×2 (08:23→20:43)
[2017-12-21] MEDS: hydrALAZINE HCL 50 MG TAB PO SCH ×2 (08:23→20:43)
[2017-12-21] MEDS: levETIRAcetam IV 1,000 MG in SALINE 1 100ML.BAG IVPB SCH (08:37)
[2017-12-21] MEDS: IPRATROPIUM-ALBUTEROL 3 ML NEB INHALATION SCH ×4 (08:37→20:39)
[2017-12-21] MEDS: ENOXAPARIN 30 MG/0.3 ML SYRINGE SQ SCH (09:33)
[2017-12-21] MEDS: ASPIRIN 325 MG TAB PO SCH (09:33)
--- NOTE | 2017-12-21 10:27 | P.PN ---
Subjective Progress Note Date: 12/21/17 This is a 47-year-old male patient of Dr. Jaylen Madrid past medical history of end-stage renal disease on hemodialysis 3 times weekly, hypertension, seizure disorder. Patient had on July 062016 for TIA and was emergency room at that time for emergency center for post ictal state and hypertensive emergency by EMS with seizure activityand was seen in consultation by Dr. Viveros. . He was again sent into the emergency room on 12/18/2017 secondary to prolonged post ictal status, there is concern for at the emergency room with active state of alcohol withdrawal. patient normally goes for hemodialysis Saturday, however he missed his scheduled dialysis yesterday Saturday. Compliance medications are unknown, urine drug screen not done, alcohol level less than 10 Patient comes in with significant elevated blood pressure systolic of 257/126 highest blood pressure along with agitation tremors, he had while being detained at the emergency room waiting for ICU bed patient had 6 seizures in the emergency room despite Ativan IV pushes, he had to be prophylactically intubated secondary to status epilepticus, and required Ativan drip secondary to uncontrolled seizures despite Ativan CIWA protocol. Patient currently is on IV Keppra 1 g, propofol, and would be sent to ICU, Dr. Park on consult, and Dr. Malone on consult. According to ER nurses, patient has a large emesis while being intubated Patient patient was febrile upon ER admission, flu test was requested, patient was given labetalol 40 mg IV,, for the elevated heart rate of 150, Catapres patch 0.2 and hydralazine 10 mg every 4 hours. Shahrzad spoken to the for additional info, he has baseline control of bp however it gets this high with sbp over 200 if pain from cervical stenosis is not under control, he has seen 2 neurosugeon for cervical stenosis and has adviced that surgery will increase risk of surgical failures and recommended water physiotherapy. last ILS cervical area was with dr cohen in 08/2107. he takes tylenol 3 sparingly, he had an original rx in 07/2017 which hasn't been used up on its entirety. denies any alcohol dependency, not even a closet drinker. During his last admission in July 2017 for seizures and hypertensive urgency, he had an evolving thalamic infarct, in July 2017, imaging studies included There was concern for cervical spondylosis cervcial stenosis and recommended MRI of the cervical spine and orthopedic consult. Carotid duplex showed no stenosis. Echocardiogram revealed EF of 55-60%, no pulmonary hypertension, moderate concentric left hypertrophy, trace mitral regurgitation, trace tricuspid regurgitation. EEG of the brain showed moderate encephalopathy with no epileptiform waves l 2/: Repeat chest x-ray shows interval retraction of the endotracheal tube, now appropriately placed in stable positioning of the enteric tube. Redemonstration of central vascular congestion and bibasilar opacities favored to represent atelectasis although pneumonia is also possible. Patient has intensive care management with Dr. Fraire, Dr. Park is following from nephrology and Dr. Viveros from neurology. EEG pending. Repeat CAT scan of brain is negative for acute findings. Patient remains intubated and on mechanical ventilation. His sedation is currently off. Keppra level is pending. Patient has been off labetalol drip since 5 AM. CAT scan of the chest suggests gastritis, combination of consolidation or atelectasis suggested pneumonia not excluded. Correlate for fluid overload as there is mild diffuse anasarca. Small pericardial effusion. Prominent small bowel loops but no discrete transition point. Generalized ileus or enteritis is favored. Splenomegaly. Bladder wall thickening may be atrophy or cystitis. Chronic kidney disease with nonobstructive renal calculi. 2/2: Patient was successfully extubated this morning. He is complaining of pain for which gabapentin 100 mg twice daily as been added. Patient also noted to have thrush for which Mycelex added. Hemoglobin is down 8.4, BUN 33 and creatinine 6.5. Repeat Keppra level is 31.2. Sputum culture in progress. Blood cultures are showing no growth 2. 2/3: patient remains in the intensive care unit. He has been stable. Patient will be transferred to selective care today and Norvasc will be resumed. He has maintained on IV Keppra per neurology. Patient is scheduled for hemodialysis today. Repeat chest x-ray shows cardiomegaly, vascular congestion , bibasilar airspace disease worse on the left than the right. Left-sided effusion. Objective - Vital Signs Vital signs: Vital Signs Temp 97.2 F L 12/21/17 08:00 Pulse 78 12/21/17 10:00 Resp 12 12/21/17 10:00 BP 149/82 12/21/17 10:00 Pulse Ox 95 12/21/17 10:00 Intake & Output 12/20/17 12/21/17 12/21/17 18:59 06:59 18:59 Intake Total 720.69 230 307.5 Output Total 200 100 700 Balance 520.69 130 -392.5 Weight 68 kg 70.6 kg Intake: IV 435 230 307.5 Piperacillin-Tazobactam 3 50 37.5 .375 gm In Dextrose/Water 1 50ml.bag @ 12.5 mls/hr IVPB Q12H K[facility]STY Rx#: [id number] Sodium Chloride 0.9% 1, 285 230 170 000 ml @ 50 mls/hr IV . Q20H K[facility]STY Rx#:[id number] levETIRAcetam IV 1,000 mg 100 100 In Saline 1 100ml.bag @ 400 mls/hr IVPB Q12HR [facility]STY Rx#:[id number] Intake, IV Titration 75.69 Amount Propofol 1,000 mg In 75.69 Empty Bag 1 bag @ Titrate IV .Q0M KRISTY Rx#: [id number] Tube Feeding 90 Other 120 Output: Urine 200 100 700 Other: Voiding Method Bedside Commode Bedside Commode Bedside Commode Urinal # Voids 1 1 # Bowel Movements 1 - Exam General appearance: average body habitus, cooperative, disheveled - EENT Eyes: anicteric sclerae, PERRLA - Respiratory Respiratory: bilateral: CTA, diminished - Cardiovascular Rhythm: regular Abnormal Heart Sounds: systolic murmur - Gastrointestinal General gastrointestinal: soft - Integumentary Integumentary: decreased turgor, normal - Psychiatric alert and oriented 3 - Labs CBC & Chem 7: 12/21/17 04:44 12/21/17 04:44 Labs: Abnormal Lab Results - Last 24 Hours (Table) 12/21/17 12/21/17 Range/Units 04:44 04:44 RBC 2.42 L (4.30-5.90) m/uL Hgb 7.9 L (13.0-17.5) gm/dL Hct 24.5 L (39.0-53.0) % MCV 101.3 H (80.0-100.0) fL RDW 16.0 H (11.5-15.5) % Plt Count 67 L (150-450) k/uL Lymphocytes # 0.7 L (1.0-4.8) k/uL BUN 45 H (9-20) mg/dL Creatinine 8.90 H* (0.66-1.25) mg/dL Calcium 8.0 L (8.4-10.2) mg/dL Phosphorus 8.5 H* (2.5-4.5) mg/dL Microbiology - Last 24 Hours (Table) 12/18/17 14:56 Blood Culture - Preliminary Blood No Growth after 48 hours 12/18/17 13:45 Blood Culture - Preliminary Blood No Growth after 48 hours 12/18/17 13:48 Gram Stain - Final Sputum Sputum Culture - Final Assessment and Plan Plan: 1. Status epilepticus with known history of seizures after his CVA, prior history of thalamus infarct, in July 2017. Patient currently is intubated on 12/18/2017 at 1300 hrs. for prophylactic reasons, has multiple seizures while in the emergency room. Continue Keppra IV 1 g given him a patient was on maintenance 750 mg every 12 hours IV, nephrology Dr. Viveros. 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 Obtain Keppra levels. Monitor for aspirate the events, patient was febrile upon ER admission, influenza test negative urine drug screen negative alcohol level less than 10. 2. Hypertensive emergency, possibly secondary to uncontrolled pain from cervical stenosis with his underlying renovascular hypertension. Patient currently is on Catapres 0.2 mg, labetalol 10 mg every 4 hours IV with renal dosing and hydralazine 10 mg every 4 hours when necessary for systolic blood pressure over 160Currently on Norvasc 5 mg twice daily, Catapres 0.3 mg twice daily, hydralazine 50 mg twice daily scheduled and IV push as needed, lisinopril 20 mg twice daily. will monitor and eval for pheochromocytoma. morphine for pain 3. History of left thalamus stroke July 2017. 325 mg rectally or NG/ G- tube 4. CKD stage v for with respiratory acidosis secondary to seizures, end-stage renal disease on hemodialysis Saturday, one missed treatments, Dr. Berg on consult 5. Concern for alcohol withdrawals, patient currently is on CIWA protocol 6. Acute hypoxic respiratory failure secondary seizures to rule out overload from missed dialysis treatments, seizure activity Dr. Fraire is on consult. Patient has been successfully intubated on 12/18/2017 at 1300 hrs at the emergency room. Patient has been extubated. 7. End-stage renal disease and lactic acidosis on hemodialysis presenting with fluid overload secondary to noncompliance and missing 2 dialysis treatments. Patient is currently undergoing dialysis in the emergency center. Dr. Park is on consult. 8. Chronic cervical pain cervical stenosis Patient had pain management injections with Dr. Cohen in the past, last one 08/2017, has seen neurosurgeon in [facility], no current recommendation surgery, another in [place] neurosurgeon, who advised high risk for failures to undergo cervical spine surgery. rx morphine iv prn while intubated, once stabilized with seizures, will add gabapentin 100 mg twice daily 9. Tobacco use and dependence and recently discharged on nicotine patch. Secondary to mentation from seizures and obtundation from that support, unknown status for tobacco use 10. Chronic thrombocytopenia. Monitor. 11. Insomnia, chronic sleep deprivation secondary to uncontrolled cervical stenosis pain, sleep rastafari is important for seizure control as well. once extubated will readdress this issue. currently on propofol on vent 12. Acute respiratory acidosis with chronic combined respiratory/metabolic compensation 13. DVT prophylaxis. Lovenox. 13 GI prophylaxis. Protonix IV Discharge planning to be determined Prognosis guarded Impression and plan of care have been directed as dictated by the signing physician. Doretha Brumfield nurse practitioner acting as scribe for signing physician.
--- NOTE | 2017-12-21 10:56 | P.PN ---
Subjective Progress Note Date: 12/21/17 Patient seen and examined for the follow-up of end-stage renal disease. Currently in ICU on Keppra drip. Objective - Vital Signs Vital signs: Vital Signs Temp 97.2 F L 12/21/17 08:00 Pulse 78 12/21/17 10:00 Resp 12 12/21/17 10:00 BP 149/82 12/21/17 10:00 Pulse Ox 95 12/21/17 10:00 Intake & Output 12/20/17 12/21/17 12/21/17 18:59 06:59 18:59 Intake Total 720.69 230 307.5 Output Total 200 100 700 Balance 520.69 130 -392.5 Weight 68 kg 70.6 kg Intake: IV 435 230 307.5 Piperacillin-Tazobactam 3 50 37.5 .375 gm In Dextrose/Water 1 50ml.bag @ 12.5 mls/hr IVPB Q12H [facility] Rx#: [id number] Sodium Chloride 0.9% 1, 285 230 170 000 ml @ 50 mls/hr IV . Q20H [facility]STY Rx#:[id number] levETIRAcetam IV 1,000 mg 100 100 In Saline 1 100ml.bag @ 400 mls/hr IVPB Q12HR [facility]STY Rx#:[id number] Intake, IV Titration 75.69 Amount Propofol 1,000 mg In 75.69 Empty Bag 1 bag @ Titrate IV .Q0M KRISTY Rx#: [id number] Tube Feeding 90 Other 120 Output: Urine 200 100 700 Other: Voiding Method Bedside Commode Bedside Commode Bedside Commode Urinal # Voids 1 1 # Bowel Movements 1 - Exam Lying in bed no acute distress S1-S2 heard Lungs clear to auscultation No edema right forearm aVF - Labs CBC & Chem 7: 12/21/17 04:44 12/21/17 04:44 Labs: Abnormal Lab Results - Last 24 Hours (Table) 12/21/17 12/21/17 Range/Units 04:44 04:44 RBC 2.42 L (4.30-5.90) m/uL Hgb 7.9 L (13.0-17.5) gm/dL Hct 24.5 L (39.0-53.0) % MCV 101.3 H (80.0-100.0) fL RDW 16.0 H (11.5-15.5) % Plt Count 67 L (150-450) k/uL Lymphocytes # 0.7 L (1.0-4.8) k/uL BUN 45 H (9-20) mg/dL Creatinine 8.90 H* (0.66-1.25) mg/dL Calcium 8.0 L (8.4-10.2) mg/dL Phosphorus 8.5 H* (2.5-4.5) mg/dL Microbiology - Last 24 Hours (Table) 12/18/17 14:56 Blood Culture - Preliminary Blood No Growth after 48 hours 12/18/17 13:45 Blood Culture - Preliminary Blood No Growth after 48 hours 12/18/17 13:48 Gram Stain - Final Sputum Sputum Culture - Final Assessment and Plan Assessment: Impression: #1 end-stage renal disease on hemodialysis TTS schedule #2 vent-dependent respiratory failure currently extubated #3 recurrent seizures currently on Keppra drip #4 CVA #5 hypertension with ESRD #6 CKD with metabolic bone disease Recommendations: #1 hemodialysis today as per outpatient regimen #2 CKD medications #3 ICU care
[2017-12-21] MEDS: Acetaminophen-Codeine 300-30mg TAB PO PRN (11:28)
[2017-12-21] MEDS: LABETALOL 5 MG/ML VIAL MDV IVP PRN ×2 (11:55→21:49)
--- NOTE | 2017-12-21 12:03 | P.PN ---
Subjective Progress Note Date: 12/21/17 Principal diagnosis: Acute status epilepticus Jose is a 47-year-old white male patient that was brought to the emergency department by EMS on 12/18/2017 at 0457 in the morning for complaints of generalized tonic-clonic seizures. Patient's family had called 911, patient was reportedly postictal, with altered mentation, very combative, fighting with the shake loader. Patient's has reportedly told the ER staff that the patient had not been feeling good for last couple of days, and missed his dialysis on Saturday. Patient is known to have ESRD on hemodialysis, and his usual days are Tuesdays and Saturdays. Per , patient did have his usual Saturday hemodialysis. It is unknown as to what type of symptoms he was having when he was not feeling good. In the emergency room patient had 4 more episodes of grand mal seizures lasting 1-2 minutes. He was given the loading dose of IV Keppra up thousand milligrams. He does have an underlying seizure disorder, he is on maintenance Keppra 750 mg twice a day, is unclear at this time if the patient is compliant with his medications. He was previously hospitalized in July for status epilepticus, acute hypoxic respiratory failure secondary to pulmonary edema, requiring intubation and mechanical ventilation. During that admission patient was found to have a thalamic infarct. CT head on 12/18/2017 showed no acute intracranial hemorrhage or mass effect. There was a hypodense focus within the left thalamus likely indicating a lacunar infarct, age indeterminate. This finding was felt to be chronic and present on the previous exam on 07/22/2017, although not as well delineated. Patient's twelve-lead EKG showed sinus tachycardia with a rate of 123 BPM. Chest x-ray showed chronic changes without any acute cardiopulmonary process. We were consulted in regards to patient's altered mentation and the possibility of requiring intubation and mechanical ventilation in regards to his post ictal status and inability to protect his airway. Upon my evaluation, patient was seen in the emergency room, resting on the gurney, unresponsive to verbal or painful stimuli. Initially he was breathing spontaneously, the head of the bed was elevated for aspiration precautions. He was given a few rounds of lorazepam IV push for seizure activity earlier in the day. Patient was noted to be very hypertensive, his systolic blood pressures have been ranging in the 192-235 mm/Hg, and his diastolic has been ranging from 100-138 mmHg. his pulse ox was 95 on 4 L per nasal cannula, patient does not have an gag reflex, some oral secretions were suctioned out of his oropharynx. Shortly afterward patient became apneic, started seizing, patient was ventilated per Ambu bag, and emergently intubated by the ER physician. We will put him on vent settings of assist control with a rate of 12, tidal vital 400, FiO2 of 100% and the PEEP of 5. Patient was seen in consultation by nephrology, who is planning on dialyzing the patient today and tomorrow. They had also made recommendations for blood pressure control. Patient will be transferred to the intensive care once a bed is available. Patient was reevaluated today on 12/19/2017, remains on mechanical ventilation, sedated, patient is heading down shortly for a CT of the head, and considering the patient is having significant drainage from the nasogastric tube, recommended a CT of the abdomen and pelvis to be done at the same time. In the meantime the patient remains sedated, in no distress, no seizure activity overnight. His vent settings are basically the same however his FiO2 is down to 50%. CBC showed WBC count of 7.3 hemoglobin is 9.5. ABG showed a pO2 of 81 pCO2 of 52 pH of 7.47. Patient was dialyzed yesterday, and he is going to be dialyzed again today. His BUN is 57 creatinine is 9.33. Patient was reevaluated today on 12/20/2017, no seizure activity over the last 2 days since he was admitted to the ICU. Patient remains on mechanical ventilation, intubated, I went ahead and took him off propofol, and awakened the patient, gave the patient a short weaning trial on pressure support and CPAP , evaluated his weaning parameters, reviewed his chest x-ray which continues to show some right lower lobe pneumonia, neurologically the patient was noted to be intact, reviewed all his labs including his ABG showing pO2 of 76 pCO2 of 49 pH of 7.39. CBC showing a hemoglobin of 8. for otherwise unremarkable. Basic metabolic profile is also normal. Hence I proceeded to giving the patient a short weaning trial on pressure support and CPAP, and I was at bedside all along , within 20 minutes of being on pressure support and CPAP, went ahead and recommended extubating the patient. Patient was reevaluated today on 12/21/2017, extubated yesterday, tolerated the extubation quite well. No seizure activity over the last couple of days since he was admitted to the ICU. Chest x-ray continues to show by basilar infiltrates consistent with aspiration pneumonia related to his status epilepticus. Patient is scheduled for hemodialysis today, he remains on antibiotics for presumptive aspiration pneumonia, and we'll plan to transfer the patient out of the ICU to a monitor bed on selective today. Labs were reviewed including his CBC, and his basic metabolic profile. BUN is 45 creatinine is 8.90. Being followed by nephrology. Objective - Vital Signs Vital signs: Vital Signs Temp 97.2 F L 12/21/17 08:00 Pulse 79 12/21/17 11:45 Resp 12 12/21/17 11:00 BP 160/85 12/21/17 11:00 Pulse Ox 94 L 12/21/17 11:00 Intake & Output 12/20/17 12/21/17 12/21/17 18:59 06:59 18:59 Intake Total 720.69 230 370.0 Output Total 200 100 700 Balance 520.69 130 -330.0 Weight 68 kg 70.6 kg Intake: IV 435 230 370.0 Piperacillin-Tazobactam 3 50 50.0 .375 gm In Dextrose/Water 1 50ml.bag @ 12.5 mls/hr IVPB Q12H KRISTY Rx#: [id number] Sodium Chloride 0.9% 1, 285 230 220 000 ml @ 50 mls/hr IV . Q20H KRISTY Rx#:[id number] levETIRAcetam IV 1,000 mg 100 100 In Saline 1 100ml.bag @ 400 mls/hr IVPB Q12HR KRISTY Rx#:[id number] Intake, IV Titration 75.69 Amount Propofol 1,000 mg In 75.69 Empty Bag 1 bag @ Titrate IV .Q0M KRISTY Rx#: [id number] Tube Feeding 90 Other 120 Output: Urine 200 100 700 Other: Voiding Method Bedside Commode Bedside Commode Bedside Commode Urinal # Voids 1 1 # Bowel Movements 1 - Exam Physical Exam: Revealed a 47-year-old white male in no distress. On nasal cannula, off mechanical ventilation. Head: Atraumatic, normocephalic, heavily bearded. HEENT:[Neck is supple.] [No neck masses.] [No thyromegaly.] [No JVD.] Moist mucous membranes, no stridor. Chest: [Crackles at the right base, no rhonchi, no wheezes, symmetrical expansion, no chest wall tenderness.] Cardiac Exam: [Normal S1 and S2, no S3 gallop, no murmur.] Abdomen: [Soft, nontender, no megaly, no rebound, no guarding, normal bowel sounds.] Extremities: [No clubbing, no edema, no cyanosis.] Neurological Exam: Alert oriented 3. [No focal neurologic deficit. Psychiatric: Normal mood, affect, and intact mental status examination.] - Labs CBC & Chem 7: 12/21/17 04:44 12/21/17 04:44 Labs: Abnormal Lab Results - Last 24 Hours (Table) 12/21/17 12/21/17 Range/Units 04:44 04:44 RBC 2.42 L (4.30-5.90) m/uL Hgb 7.9 L (13.0-17.5) gm/dL Hct 24.5 L (39.0-53.0) % MCV 101.3 H (80.0-100.0) fL RDW 16.0 H (11.5-15.5) % Plt Count 67 L (150-450) k/uL Lymphocytes # 0.7 L (1.0-4.8) k/uL BUN 45 H (9-20) mg/dL Creatinine 8.90 H* (0.66-1.25) mg/dL Calcium 8.0 L (8.4-10.2) mg/dL Phosphorus 8.5 H* (2.5-4.5) mg/dL Microbiology - Last 24 Hours (Table) 12/18/17 14:56 Blood Culture - Preliminary Blood No Growth after 48 hours 12/18/17 13:45 Blood Culture - Preliminary Blood No Growth after 48 hours 12/18/17 13:48 Gram Stain - Final Sputum Sputum Culture - Final Assessment and Plan Assessment: #1. Status epilepticus, in a patient with history of seizure disorder, and history of thalamic infarct first diagnosed in July 2017. Exact etiology of breakthrough seizures is unknown, patient is on a maintenance Keppra 750 mg twice a day. #2. Acute metabolic encephalopathy, resolved . Repeat CT of the brain today showed no acute intracranial hemorrhage, no mass effect or midline shift. Stable exam. #3. Acute hypoxic and hypercapnic respiratory failure and very to altered mental status, related to prolonged postictal period after multiple breakthrough seizures. Patient was unable to protect his airway, became apneic , requiring emergent intubation and placement on mechanical ventilation #4. Evidence of bibasilar infiltrates, most likely secondary to aspiration pneumonia. Right lower lobe pneumonia/aspiration pneumonia still present #5. 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 #6.history of lacunar stroke #7. Hypertension with chronic kidney disease, currently poorly controlled #8.History of poor medical compliance #9.chronic back pain with degenerative disc disease and stenosis #10. History of chronic nephrolithiasis #11. Nicotine dependence, ongoing Recommendation: Continue present supportive care measures, continue seizure medications, consider transferring the patient out of the ICU today, we'll continue to follow. Time with Patient: Less than 30
[2017-12-21] MEDS: cloNIDine HCL 0.1 MG TAB PO PRN ×2 (12:49→18:05)
[2017-12-21] MEDS: THIAMINE 100 MG TAB PO SCH (14:53)
[2017-12-21] MEDS: LABETALOL 100 MG in SODIUM CHLORIDE 0.9% 80 ML IV SCH ×7 (15:00→23:27)
--- NOTE | 2017-12-21 16:59 | P.PN ---
Subjective Progress Note Date: 12/21/17 This patient is a 47-year-old right-handed white male who was seen yesterday in neurology consultation for recurrent seizures. Patient was intubated at that time. He is on Keppra monotherapy for seizure prophylaxis. His Keppra level was therapeutic at 31.2 He is been maintained on Keppra 1000 mg IV piggyback every 12 hours. We will switch him to oral dosing on Keppra thousand milligrams by mouth twice a day. He was sent for a repeat computed tomography scan of the brain yesterday which was negative for any acute changes. The patient seems to be tolerating his extubation very well today in the ICU. His is at bedside and is been feeding him small amounts of food which she is tolerating very well. He is now doing much better in the ICU. He is following simple commands. His repeat Keppra level done yesterday came back therapeutic at 31.2. He has had no further seizure activity over the last 3 days. He seems to be making good progress. Chest x-ray continues to show right lower lobe pneumonia. He is on antibiotic therapy for this condition as well. Blood pressure also seems to be doing much better today. We will continue close neurological follow-up with this patient with close monitoring for history of seizure disorder. His overall prognosis at this time remains guarded. Case was discussed at length with the patient's who was at bedside. All of her questions were answered. She is aware of his guarded condition. Objective - Vital Signs Vital signs: Vital Signs Temp 97.2 F L 12/21/17 08:00 Pulse 79 12/21/17 11:45 Resp 12 12/21/17 11:00 BP 160/85 12/21/17 11:00 Pulse Ox 94 L 12/21/17 11:00 Intake & Output 12/20/17 12/21/17 12/21/17 18:59 06:59 18:59 Intake Total 720.69 230 370.0 Output Total 200 100 700 Balance 520.69 130 -330.0 Weight 68 kg 70.6 kg Intake: IV 435 230 370.0 Piperacillin-Tazobactam 3 50 50.0 .375 gm In Dextrose/Water 1 50ml.bag @ 12.5 mls/hr IVPB Q12H [facility] Rx#: [id number] Sodium Chloride 0.9% 1, 285 230 220 000 ml @ 50 mls/hr IV . Q20H [facility] Rx#:[id number] levETIRAcetam IV 1,000 mg 100 100 In Saline 1 100ml.bag @ 400 mls/hr IVPB Q12HR [facility] Rx#:[id number] Intake, IV Titration 75.69 Amount Propofol 1,000 mg In 75.69 Empty Bag 1 bag @ Titrate IV .Q0M [facility] Rx#: [id number] Tube Feeding 90 Other 120 Output: Urine 200 100 700 Other: Voiding Method Bedside Commode Bedside Commode Bedside Commode Urinal # Voids 1 1 # Bowel Movements 1 - Exam Physical examination: PHYSICAL EXAMINATION: Patient is resting comfortably in bed. Patient remains intubated on the ventilator in the ICU. VITAL SIGNS: Blood pressure is [160/85]. Heart rate is [79]. Respiration is [12] . Temperature is [97.2]. HEENT: Head is atraumatic, neck is supple, there were no carotid bruits. CHEST: Lungs are clear to auscultation and percussion. CARDIAC: S1, S2 normal rate and rhythm. There is no murmur. ABDOMEN: Soft and nontender. Bowel sounds are present. EXTREMITIES: There is no pedal edema. Peripheral pulses are present. Neurological examination: Patient was extubated off the ventilator this morning. He is resting comfortably in bed. He is alert and oriented 2. He is following simple commands. No focal weakness on examination. Deep tendon reflexes are 2+ and symmetric. Plantar responses flexor bilaterally. - Labs CBC & Chem 7: 12/21/17 04:44 12/21/17 04:44 Labs: Abnormal Lab Results - Last 24 Hours (Table) 12/21/17 12/21/17 Range/Units 04:44 04:44 RBC 2.42 L (4.30-5.90) m/uL Hgb 7.9 L (13.0-17.5) gm/dL Hct 24.5 L (39.0-53.0) % MCV 101.3 H (80.0-100.0) fL RDW 16.0 H (11.5-15.5) % Plt Count 67 L (150-450) k/uL Lymphocytes # 0.7 L (1.0-4.8) k/uL BUN 45 H (9-20) mg/dL Creatinine 8.90 H* (0.66-1.25) mg/dL Calcium 8.0 L (8.4-10.2) mg/dL Phosphorus 8.5 H* (2.5-4.5) mg/dL Microbiology - Last 24 Hours (Table) 12/18/17 14:56 Blood Culture - Preliminary Blood No Growth after 48 hours 12/18/17 13:45 Blood Culture - Preliminary Blood No Growth after 48 hours 12/18/17 13:48 Gram Stain - Final Sputum Sputum Culture - Final Assessment and Plan (1) Generalized complex partial epilepsy Current Visit: Yes Status: Acute Code(s): G40.209 - LOCAL-REL SYMPTC EPI W CMPLX PRT SEIZ,NOT NTRCT,W/O STAT EPI SNOMED Code(s): 359032796 (2) History of stroke Current Visit: Yes Status: Acute Code(s): Z86.73 - PRSNL HX OF TIA (TIA), AND CEREB INFRC W/O RESID DEFICITS SNOMED Code(s): 016448223 (3) Acute encephalopathy Current Visit: Yes Status: Acute Code(s): G93.40 - ENCEPHALOPATHY, UNSPECIFIED SNOMED Code(s): 2860722 (4) End stage renal disease on dialysis Current Visit: Yes Status: Acute Code(s): N18.6 - END STAGE RENAL DISEASE; Z99.2 - DEPENDENCE ON RENAL DIALYSIS SNOMED Code(s): 894659090 Plan: This patient is a 47-year-old male who was extubated today in the intensive care unit as he was admitted with acute respiratory failure and recurrent seizures. Patient is currently on Keppra monotherapy and his most recent Keppra blood level done was therapeutic at 31.2. Patient is now extubated and is able to follow simple commands. He has been tolerating extubation very well and is noted to be much more alert today. He is undergoing hemodialysis today in the ICU. His creatinine today is 8.9. He has had no further seizures for the past 3 days. We will continue him on Keppra for seizure prophylaxis. He underwent routine EEG which was diffusely slow with no epileptiform discharges noted yesterday. He also had a repeat computed tomography scan of the brain which was negative for any acute changes. No evidence of acute stroke or hemorrhage. Patient will continue close monitoring in the ICU tonight. He is showing significant improvement overall in mental status. We will continue to monitor his condition closely during this admission. Patient and his were updated on all of his test results and laboratory testing including his Keppra levels. The patient and his are advised that he cannot drive in the [facility] for a period of 6 months following his last seizure event. They are aware of this restriction as he has had multiple breakthrough seizures last year as well. We will continue close monitoring of this patient in the ICU setting. His overall prognosis at this time remains guarded.
[2017-12-21] MEDS: QUEtiapine 25 MG TAB PO SCH (20:42)
[2017-12-21] MEDS: levETIRAcetam 500 MG TAB PO SCH (20:42)
[2017-12-21] MEDS: amLODIPine 5 MG TAB PO SCH (21:29)
[2017-12-22] MEDS: cloNIDine HCL 0.1 MG TAB PO PRN ×2 (00:50→17:54)
[2017-12-22] MEDS: LABETALOL 5 MG/ML VIAL MDV IVP PRN ×5 (02:21→22:43)
[2017-12-22 05:02] LABS: Basophils % (A) 1 %; Eosinophils # (A) 0.1 k/uL (0-0.7); Eosinophils % (A) 3 %; HCT 25.4 % (39.0-53.0); HGB 8.1 gm/dL (13.0-17.5); Lymphocytes # (A) 0.7 k/uL (1.0-4.8); Lymphocytes % (A) 16 %; MCHC 32.1 g/dL (31.0-37.0); MCV 99.7 fL (80.0-100.0); Macrocytosis Slight; Mean Platelet Volume 7.6; Monocytes # (A) 0.2 k/uL (0-1.0); Monocytes % (A) 5 %; Neutrophils # (A) 3.4 k/uL (1.3-7.7); Neutrophils % (A) 74 %; RBC 2.55 m/uL (4.30-5.90); RDW 15.5 % (11.5-15.5); WBC 4.6 k/uL (3.8-10.6)
[2017-12-22 05:06] LABS: Platelet Count 90 k/uL (150-450)
[2017-12-22 05:14] LABS: Calcium 8.2 mg/dL (8.4-10.2); Magnesium 1.9 mg/dL (1.6-2.3); Phosphorus 5.7 mg/dL (2.5-4.5); Potassium 4.2 mmol/L (3.5-5.1)
[2017-12-22] MEDS: PIPERACILLIN-TAZOBACTAM 3.375 GM in DEXTROSE/WATER 1 50ML.BAG IVPB SCH ×2 (06:19→17:15)
[2017-12-22] MEDS: IPRATROPIUM-ALBUTEROL 3 ML NEB INHALATION SCH ×4 (07:51→19:16)
[2017-12-22] MEDS: NICOTINE 14MG/24HR PATCH TRANSDERM SCH (08:26)
[2017-12-22] MEDS: amLODIPine 5 MG TAB PO SCH ×2 (08:27→20:18)
[2017-12-22] MEDS: ASPIRIN 325 MG TAB PO SCH (08:27)
[2017-12-22] MEDS: SEVELAMER 800 MG TAB PO SCH ×3 (08:27→17:15)
[2017-12-22] MEDS: CALCIUM ACETATE 667 MG CAP PO SCH ×3 (08:27→17:15)
[2017-12-22] MEDS: ATORVASTATIN 20 MG TAB PO SCH (08:28)
[2017-12-22] MEDS: cloNIDine HCL 0.1 MG TAB PO SCH ×2 (08:28→21:46)
[2017-12-22] MEDS: GABAPENTIN 100 MG CAP PO SCH ×2 (08:29→20:17)
[2017-12-22] MEDS: CLOTRIMAZOLE TROCHE 10 MG TROCHE MUCOUS MEM SCH ×4 (08:29→21:48)
[2017-12-22] MEDS: LISINOPRIL 20 MG TAB PO SCH ×2 (08:30→20:19)
[2017-12-22] MEDS: levETIRAcetam 500 MG TAB PO SCH ×2 (08:30→20:18)
[2017-12-22] MEDS: PANTOPRAZOLE 40 MG/10 ML VIAL IV SCH (08:30)
[2017-12-22] MEDS: hydrALAZINE HCL 50 MG TAB PO SCH ×2 (08:30→20:18)
[2017-12-22] MEDS: SENNOSIDES-DOCUSATE SODIUM 1 EACH TAB PO SCH (08:31)
[2017-12-22] MEDS: LABETALOL 100 MG in SODIUM CHLORIDE 0.9% 80 ML IV SCH ×12 (08:47→17:20)
[2017-12-22] MEDS: ENOXAPARIN 30 MG/0.3 ML SYRINGE SQ SCH (08:47)
--- NOTE | 2017-12-22 09:40 | P.PN ---
Subjective Progress Note Date: 12/22/17 Seen and examined for the follow-up of ESRD. Yesterday blood pressure was uncontrolled requiring labetalol drip currently controlled and off the drip. Objective - Vital Signs Vital signs: Vital Signs Temp 97.9 F 12/22/17 07:30 Pulse 87 12/22/17 09:00 Resp 14 12/22/17 09:00 BP 157/80 12/22/17 09:00 Pulse Ox 97 12/22/17 09:00 Intake & Output 12/21/17 12/22/17 12/22/17 18:59 06:59 18:59 Intake Total 1345.0 1024 580 Output Total 2650 100 Balance -1305.0 924 580 Weight 71.7 kg Intake: IV 645.0 150 80 Piperacillin-Tazobactam 3 75.0 50 .375 gm In Dextrose/Water 1 50ml.bag @ 12.5 mls/hr IVPB Q12H [facility] Rx#: [id number] Sodium Chloride 0.9% 1, 470 150 30 000 ml @ 50 mls/hr IV . Q20H [facility] Rx#:[id number] levETIRAcetam IV 1,000 mg 100 In Saline 1 100ml.bag @ 400 mls/hr IVPB Q12HR [facility] Rx#:[id number] Intake, IV Titration 200 474 Amount Labetalol 100 mg In 200 474 Sodium Chloride 0.9% 80 ml @ 2 MG/MIN 120 mls/hr IV .Q50M [facility] Rx#: [id number] Oral 500 400 500 Output: Urine 1150 100 Other 1500 Other: Voiding Method Bedside Commode Bedside Commode Bedside Commode Urinal Urinal Urinal # Voids 1 # Bowel Movements 1 - Exam Lying in bed no acute distress S1-S2 heard Lungs clear Right forearm aVF - Labs CBC & Chem 7: 12/22/17 04:41 12/22/17 04:41 Labs: Abnormal Lab Results - Last 24 Hours (Table) 12/22/17 12/22/17 Range/Units 04:41 04:41 RBC 2.55 L (4.30-5.90) m/uL Hgb 8.1 L (13.0-17.5) gm/dL Hct 25.4 L (39.0-53.0) % Plt Count 90 L (150-450) k/uL Lymphocytes # 0.7 L (1.0-4.8) k/uL BUN 29 H (9-20) mg/dL Creatinine 6.10 H* (0.66-1.25) mg/dL Calcium 8.2 L (8.4-10.2) mg/dL Phosphorus 5.7 H (2.5-4.5) mg/dL Microbiology - Last 24 Hours (Table) 12/21/17 13:18 Gram Stain - Preliminary Sputum 12/18/17 14:56 Blood Culture - Preliminary Blood No Growth after 72 hours 12/18/17 13:45 Blood Culture - Preliminary Blood No Growth after 72 hours Assessment and Plan Assessment: Impression: #1 ESRD on hemodialysis TTS schedule #2 uncontrolled hypertension #3 status post VDRF #4 breakthrough seizures #5 metabolic bone disease #6 anemia with ESRD Recommendations: #1 hemodialysis TTS as per outpatient schedule #2 add labetalol 200 twice a day for better blood pressure control #3 add BERTIN and check iron profile for the morning #4 ICU care
--- NOTE | 2017-12-22 09:42 | XR ---
EXAMINATION TYPE: XR chest 1V portable DATE OF EXAM: 12/22/2017 HISTORY: shortness of breath. REFERENCE: Previous study dated 12/21/2017. FINDINGS: The heart is enlarged. There is bibasilar airspace disease. Unchanged from previous. I susp ect small effusions. IMPRESSION: NO SIGNIFICANT INTERVAL CHANGE IN THE APPEARANCE OF THE CHEST.
--- NOTE | 2017-12-22 10:17 | P.PN ---
Subjective Progress Note Date: 12/22/17 This is a 47-year-old male patient of Dr. Jaylen Madrid past medical history of end-stage renal disease on hemodialysis 3 times weekly, hypertension, seizure disorder. Patient had on July 062016 for TIA and was emergency room at that time for emergency center for post ictal state and hypertensive emergency by EMS with seizure activityand was seen in consultation by Dr. Viveros. . He was again sent into the emergency room on 12/18/2017 secondary to prolonged post ictal status, there is concern for at the emergency room with active state of alcohol withdrawal. patient normally goes for hemodialysis Saturday, however he missed his scheduled dialysis yesterday Saturday. Compliance medications are unknown, urine drug screen not done, alcohol level less than 10 Patient comes in with significant elevated blood pressure systolic of 257/126 highest blood pressure along with agitation tremors, he had while being detained at the emergency room waiting for ICU bed patient had 6 seizures in the emergency room despite Ativan IV pushes, he had to be prophylactically intubated secondary to status epilepticus, and required Ativan drip secondary to uncontrolled seizures despite Ativan CIWA protocol. Patient currently is on IV Keppra 1 g, propofol, and would be sent to ICU, Dr. Park on consult, and Dr. Malone on consult. According to ER nurses, patient has a large emesis while being intubated Patient patient was febrile upon ER admission, flu test was requested, patient was given labetalol 40 mg IV,, for the elevated heart rate of 150, Catapres patch 0.2 and hydralazine 10 mg every 4 hours. Shahrzad spoken to the for additional info, he has baseline control of bp however it gets this high with sbp over 200 if pain from cervical stenosis is not under control, he has seen 2 neurosugeon for cervical stenosis and has adviced that surgery will increase risk of surgical failures and recommended water physiotherapy. last ILS cervical area was with dr cohen in 08/2107. he takes tylenol 3 sparingly, he had an original rx in 07/2017 which hasn't been used up on its entirety. denies any alcohol dependency, not even a closet drinker. During his last admission in July 2017 for seizures and hypertensive urgency, he had an evolving thalamic infarct, in July 2017, imaging studies included There was concern for cervical spondylosis cervcial stenosis and recommended MRI of the cervical spine and orthopedic consult. Carotid duplex showed no stenosis. Echocardiogram revealed EF of 55-60%, no pulmonary hypertension, moderate concentric left hypertrophy, trace mitral regurgitation, trace tricuspid regurgitation. EEG of the brain showed moderate encephalopathy with no epileptiform waves l 2/: Repeat chest x-ray shows interval retraction of the endotracheal tube, now appropriately placed in stable positioning of the enteric tube. Redemonstration of central vascular congestion and bibasilar opacities favored to represent atelectasis although pneumonia is also possible. Patient has intensive care management with Dr. Fraire, Dr. Park is following from nephrology and Dr. Viveros from neurology. EEG pending. Repeat CAT scan of brain is negative for acute findings. Patient remains intubated and on mechanical ventilation. His sedation is currently off. Keppra level is pending. Patient has been off labetalol drip since 5 AM. CAT scan of the chest suggests gastritis, combination of consolidation or atelectasis suggested pneumonia not excluded. Correlate for fluid overload as there is mild diffuse anasarca. Small pericardial effusion. Prominent small bowel loops but no discrete transition point. Generalized ileus or enteritis is favored. Splenomegaly. Bladder wall thickening may be atrophy or cystitis. Chronic kidney disease with nonobstructive renal calculi. 2/2: Patient was successfully extubated this morning. He is complaining of pain for which gabapentin 100 mg twice daily as been added. Patient also noted to have thrush for which Mycelex added. Hemoglobin is down 8.4, BUN 33 and creatinine 6.5. Repeat Keppra level is 31.2. Sputum culture in progress. Blood cultures are showing no growth 2. 2/3: patient remains in the intensive care unit. He has been stable. Patient will be transferred to [facility] today and Norvasc will be resumed. He has maintained on IV Keppra per neurology. Patient is scheduled for hemodialysis today. Repeat chest x-ray shows cardiomegaly, vascular congestion , bibasilar airspace disease worse on the left than the right. Left-sided effusion. 2/4: Patient underwent hemodialysis yesterday. Patient is continued on Keppra per Dr. Viveros and has been switched over to oral at 1000 mg twice daily. Hemoglobin 8.1, BUN 29 creatinine 6.1. Patient developed severe hyper-tension last night with pressures of 203/110. Patient was on labetalol drip for about 4 hours and also received IV push 3 doses and also started on clonidine. Last nephrology to address blood pressure control. Objective - Vital Signs Vital signs: Vital Signs Temp 98.7 F 12/22/17 00:00 Pulse 98 12/22/17 08:03 Resp 11 L 12/22/17 07:00 BP 157/87 12/22/17 07:00 Pulse Ox 97 12/22/17 07:51 Intake & Output 12/21/17 12/22/17 12/22/17 18:59 06:59 18:59 Intake Total 1345.0 1024 60 Output Total 2650 100 Balance -1305.0 924 60 Weight 71.7 kg Intake: IV 645.0 150 60 Piperacillin-Tazobactam 3 75.0 50 .375 gm In Dextrose/Water 1 50ml.bag @ 12.5 mls/hr IVPB Q12H [facility] Rx#: [id number] Sodium Chloride 0.9% 1, 470 150 10 000 ml @ 50 mls/hr IV . Q20H [facility] Rx#:[id number] levETIRAcetam IV 1,000 mg 100 In Saline 1 100ml.bag @ 400 mls/hr IVPB Q12HR [facility] Rx#:[id number] Intake, IV Titration 200 474 Amount Labetalol 100 mg In 200 474 Sodium Chloride 0.9% 80 ml @ 2 MG/MIN 120 mls/hr IV .Q50M [facility] Rx#: [id number] Oral 500 400 Output: Urine 1150 100 Other 1500 Other: Voiding Method Bedside Commode Bedside Commode Urinal Urinal # Voids 1 # Bowel Movements 1 - Exam General appearance: average body habitus, cooperative, disheveled - EENT Eyes: anicteric sclerae, PERRLA - Respiratory Respiratory: bilateral: CTA, diminished - Cardiovascular Rhythm: regular Abnormal Heart Sounds: systolic murmur - Gastrointestinal General gastrointestinal: soft - Integumentary Integumentary: decreased turgor, normal - Psychiatric alert and oriented 3 - Labs CBC & Chem 7: 12/22/17 04:41 12/22/17 04:41 Labs: Abnormal Lab Results - Last 24 Hours (Table) 12/22/17 12/22/17 Range/Units 04:41 04:41 RBC 2.55 L (4.30-5.90) m/uL Hgb 8.1 L (13.0-17.5) gm/dL Hct 25.4 L (39.0-53.0) % Plt Count 90 L (150-450) k/uL Lymphocytes # 0.7 L (1.0-4.8) k/uL BUN 29 H (9-20) mg/dL Creatinine 6.10 H* (0.66-1.25) mg/dL Calcium 8.2 L (8.4-10.2) mg/dL Phosphorus 5.7 H (2.5-4.5) mg/dL Microbiology - Last 24 Hours (Table) 12/21/17 13:18 Gram Stain - Preliminary Sputum 12/18/17 14:56 Blood Culture - Preliminary Blood No Growth after 72 hours 12/18/17 13:45 Blood Culture - Preliminary Blood No Growth after 72 hours Assessment and Plan Plan: 1. Status epilepticus with known history of seizures after his CVA, prior history of thalamus infarct, in July 2017. Patient currently is intubated on 12/18/2017 at 1300 hrs. for prophylactic reasons, has multiple seizures while in the emergency room. Continue Keppra changed to oral, nephrology Dr. Viveros. Consult with Dr. Fraire cream tester. Obtain Keppra levels. Monitor for aspirate the events, patient was febrile upon ER admission, influenza test negative urine drug screen negative alcohol level less than 10. 2. Hypertensive emergency, possibly secondary to uncontrolled pain from cervical stenosis with his underlying renovascular hypertension. Patient currently is on Catapres 0.2 mg, labetalol 10 mg every 4 hours IV with renal dosing and hydralazine 10 mg every 4 hours when necessary for systolic blood pressure over 160Currently on Norvasc 5 mg twice daily, Catapres 0.3 mg twice daily, hydralazine 50 mg twice daily scheduled and IV push as needed, lisinopril 20 mg twice daily. will monitor and eval for pheochromocytoma. morphine for pain 3. History of left thalamus stroke July 2017. 325 mg rectally or NG/ G- tube 4. CKD stage v for with respiratory acidosis secondary to seizures, end-stage renal disease on hemodialysis [facility] Thursday Saturday, one missed treatments, Dr. Berg on consult 5. Concern for alcohol withdrawals, patient currently is on CIWA protocol 6. Acute hypoxic respiratory failure secondary seizures to rule out overload from missed dialysis treatments, seizure activity Dr. Fraire is on consult. Patient has been successfully intubated on 12/18/2017 at 1300 hrs at the emergency room. Patient has been extubated. 7. End-stage renal disease and lactic acidosis on hemodialysis presenting with fluid overload secondary to noncompliance and missing 2 dialysis treatments. Patient is currently undergoing dialysis in the emergency center. Dr. Park is on consult. 8. Chronic cervical pain cervical stenosis Patient had pain management injections with Dr. Cohen in the past, last one 08/2017, has seen neurosurgeon in [facility], no current recommendation surgery, another in [place] neurosurgeon, who advised high risk for failures to undergo cervical spine surgery. rx morphine iv prn while intubated, once stabilized with seizures, will add gabapentin 100 mg twice daily 9. Tobacco use and dependence and recently discharged on nicotine patch. Secondary to mentation from seizures and obtundation from that support, unknown status for tobacco use 10. Chronic thrombocytopenia. Monitor. 11. Insomnia, chronic sleep deprivation secondary to uncontrolled cervical stenosis pain, sleep religion is important for seizure control as well. once extubated will readdress this issue. currently on propofol on vent 12. Acute respiratory acidosis with chronic combined respiratory/metabolic compensation 13. DVT prophylaxis. Lovenox. 13 GI prophylaxis. Protonix IV Discharge planning to be determined Prognosis guarded Impression and plan of care have been directed as dictated by the signing physician. Doretha Brumfield nurse practitioner acting as scribe for signing physician.
[2017-12-22] MEDS: THIAMINE 100 MG TAB PO SCH (11:33)
[2017-12-22] MEDS: Acetaminophen-Codeine 300-30mg TAB PO PRN (11:33)
[2017-12-22] MEDS ORDERED: DARBEPOETIN ALFA 40 MCG/0.4 ML SYRINGE SQ SCH (12:00)
--- NOTE | 2017-12-22 14:08 | P.PN ---
Subjective Progress Note Date: 12/22/17 Principal diagnosis: Acute status epilepticus Jose is a 47-year-old white male patient that was brought to the emergency department by EMS on 12/18/2017 at 0457 in the morning for complaints of generalized tonic-clonic seizures. Patient's family had called 911, patient was reportedly postictal, with altered mentation, very combative, fighting with the keg filler. Patient's has reportedly told the ER staff that the patient had not been feeling good for last couple of days, and missed his dialysis on Saturday. Patient is known to have ESRD on hemodialysis, and his usual days are Tuesdays and Saturdays. Per , patient did have his usual Saturday hemodialysis. It is unknown as to what type of symptoms he was having when he was not feeling good. In the emergency room patient had 4 more episodes of grand mal seizures lasting 1-2 minutes. He was given the loading dose of IV Keppra up thousand milligrams. He does have an underlying seizure disorder, he is on maintenance Keppra 750 mg twice a day, is unclear at this time if the patient is compliant with his medications. He was previously hospitalized in July for status epilepticus, acute hypoxic respiratory failure secondary to pulmonary edema, requiring intubation and mechanical ventilation. During that admission patient was found to have a thalamic infarct. CT head on 12/18/2017 showed no acute intracranial hemorrhage or mass effect. There was a hypodense focus within the left thalamus likely indicating a lacunar infarct, age indeterminate. This finding was felt to be chronic and present on the previous exam on 07/22/2017, although not as well delineated. Patient's twelve-lead EKG showed sinus tachycardia with a rate of 123 BPM. Chest x-ray showed chronic changes without any acute cardiopulmonary process. We were consulted in regards to patient's altered mentation and the possibility of requiring intubation and mechanical ventilation in regards to his post ictal status and inability to protect his airway. Upon my evaluation, patient was seen in the emergency room, resting on the gurney, unresponsive to verbal or painful stimuli. Initially he was breathing spontaneously, the head of the bed was elevated for aspiration precautions. He was given a few rounds of lorazepam IV push for seizure activity earlier in the day. Patient was noted to be very hypertensive, his systolic blood pressures have been ranging in the 192-235 mm/Hg, and his diastolic has been ranging from 100-138 mmHg. his pulse ox was 95 on 4 L per nasal cannula, patient does not have an gag reflex, some oral secretions were suctioned out of his oropharynx. Shortly afterward patient became apneic, started seizing, patient was ventilated per Ambu bag, and emergently intubated by the ER physician. We will put him on vent settings of assist control with a rate of 12, tidal vital 400, FiO2 of 100% and the PEEP of 5. Patient was seen in consultation by nephrology, who is planning on dialyzing the patient today and tomorrow. They had also made recommendations for blood pressure control. Patient will be transferred to the intensive care once a bed is available. Patient was reevaluated today on 12/19/2017, remains on mechanical ventilation, sedated, patient is heading down shortly for a CT of the head, and considering the patient is having significant drainage from the nasogastric tube, recommended a CT of the abdomen and pelvis to be done at the same time. In the meantime the patient remains sedated, in no distress, no seizure activity overnight. His vent settings are basically the same however his FiO2 is down to 50%. CBC showed WBC count of 7.3 hemoglobin is 9.5. ABG showed a pO2 of 81 pCO2 of 52 pH of 7.47. Patient was dialyzed yesterday, and he is going to be dialyzed again today. His BUN is 57 creatinine is 9.33. Patient was reevaluated today on 12/20/2017, no seizure activity over the last 2 days since he was admitted to the ICU. Patient remains on mechanical ventilation, intubated, I went ahead and took him off propofol, and awakened the patient, gave the patient a short weaning trial on pressure support and CPAP , evaluated his weaning parameters, reviewed his chest x-ray which continues to show some right lower lobe pneumonia, neurologically the patient was noted to be intact, reviewed all his labs including his ABG showing pO2 of 76 pCO2 of 49 pH of 7.39. CBC showing a hemoglobin of 8. for otherwise unremarkable. Basic metabolic profile is also normal. Hence I proceeded to giving the patient a short weaning trial on pressure support and CPAP, and I was at bedside all along , within 20 minutes of being on pressure support and CPAP, went ahead and recommended extubating the patient. Patient was reevaluated today on 12/21/2017, extubated yesterday, tolerated the extubation quite well. No seizure activity over the last couple of days since he was admitted to the ICU. Chest x-ray continues to show by basilar infiltrates consistent with aspiration pneumonia related to his status epilepticus. Patient is scheduled for hemodialysis today, he remains on antibiotics for presumptive aspiration pneumonia, and we'll plan to transfer the patient out of the ICU to a monitor bed on selective today. Labs were reviewed including his CBC, and his basic metabolic profile. BUN is 45 creatinine is 8.90. Being followed by nephrology. Reevaluated today on 12/22/2017, patient continues to do well off mechanical ventilation for the last 2 days. No seizure activities, continues to have a picture of aspiration pneumonia as noted on the chest x-ray today.patient remains on antibiotics. Blood pressure seems to be better controlled he is now on oral labetalol and on multiple meds to control the blood pressure. Patient is relatively asymptomatic, alert oriented 3, denies any specific complaints, is at bedside. Objective - Vital Signs Vital signs: Vital Signs Temp 97.8 F 12/22/17 12:00 Pulse 81 12/22/17 13:00 Resp 18 12/22/17 13:00 BP 182/98 12/22/17 13:00 Pulse Ox 91 L 12/22/17 13:00 Intake & Output 12/21/17 12/22/17 12/22/17 18:59 06:59 18:59 Intake Total 1345.0 1024 1150 Output Total 2650 100 200 Balance -1305.0 924 950 Weight 71.7 kg Intake: IV 645.0 150 150 Piperacillin-Tazobactam 3 75.0 50 .375 gm In Dextrose/Water 1 50ml.bag @ 12.5 mls/hr IVPB Q12H [facility] Rx#: [id number] Sodium Chloride 0.9% 1, 470 150 100 000 ml @ 50 mls/hr IV . Q20H [facility] Rx#:[id number] levETIRAcetam IV 1,000 mg 100 In Saline 1 100ml.bag @ 400 mls/hr IVPB Q12HR [facility] Rx#:[id number] Intake, IV Titration 200 474 Amount Labetalol 100 mg In 200 474 Sodium Chloride 0.9% 80 ml @ 2 MG/MIN 120 mls/hr IV .Q50M [facility] Rx#: [id number] Oral 150 966 0640 Output: Urine 1150 100 200 Other 1500 Other: Voiding Method Bedside Commode Bedside Commode Bedside Commode Urinal Urinal Urinal # Voids 1 # Bowel Movements 1 - Exam Physical Exam: Revealed a 47-year-old white male in no distress. on room air Head: Atraumatic, normocephalic, heavily bearded. HEENT:[Neck is supple.] [No neck masses.] [No thyromegaly.] [No JVD.] Moist mucous membranes, no stridor. Chest: [Crackles at the right base, no rhonchi, no wheezes, symmetrical expansion, no chest wall tenderness.] Cardiac Exam: [Normal S1 and S2, no S3 gallop, no murmur.] Abdomen: [Soft, nontender, no megaly, no rebound, no guarding, normal bowel sounds.] Extremities: [No clubbing, no edema, no cyanosis.] Neurological Exam: Alert oriented 3. [No focal neurologic deficit. Psychiatric: Normal mood, affect, and intact mental status examination.] - Labs CBC & Chem 7: 12/22/17 04:41 12/22/17 04:41 Labs: Abnormal Lab Results - Last 24 Hours (Table) 12/18/17 12/22/17 12/22/17 Range/Units 19:41 04:41 04:41 RBC 2.55 L (4.30-5.90) m/uL Hgb 8.1 L (13.0-17.5) gm/dL Hct 25.4 L (39.0-53.0) % Plt Count 90 L (150-450) k/uL Lymphocytes # 0.7 L (1.0-4.8) k/uL BUN 29 H (9-20) mg/dL Creatinine 6.10 H* (0.66-1.25) mg/dL Calcium 8.2 L (8.4-10.2) mg/dL Phosphorus 5.7 H (2.5-4.5) mg/dL Chromogranin A 1938 H (0-95) ng/mL Microbiology - Last 24 Hours (Table) 12/21/17 13:18 Gram Stain - Preliminary Sputum 12/18/17 14:56 Blood Culture - Preliminary Blood No Growth after 72 hours 12/18/17 13:45 Blood Culture - Preliminary Blood No Growth after 72 hours Assessment and Plan Assessment: #1. Status epilepticus, in a patient with history of seizure disorder, and history of thalamic infarct first diagnosed in July 2017. Exact etiology of breakthrough seizures is unknown, patient is on a maintenance Keppra 750 mg twice a day. #2. Acute metabolic encephalopathy, resolved . Repeat CT of the brain today showed no acute intracranial hemorrhage, no mass effect or midline shift. Stable exam. #3. Acute hypoxic and hypercapnic respiratory failure and very to altered mental status, related to prolonged postictal period after multiple breakthrough seizures. Patient was unable to protect his airway, became apneic , requiring emergent intubation and placement on mechanical ventilation #4. Evidence of bibasilar infiltrates, most likely secondary to aspiration pneumonia. Right lower lobe pneumonia/aspiration pneumonia still present #5. 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 #6.history of lacunar stroke #7. Hypertension with chronic kidney disease, currently poorly controlled #8.History of poor medical compliance #9.chronic back pain with degenerative disc disease and stenosis #10. History of chronic nephrolithiasis #11. Nicotine dependence, ongoing Recommendation: Continue present supportive care measures, continue seizure medications, continue antibiotics, continue bronchodilators, continue blood pressure medications, can transfer out of the ICU today to a medical surgical floor. Time with Patient: Less than 30
[2017-12-22] MEDS: SODIUM CHLORIDE 0.9% 1,000 ML IV SCH (17:21)
[2017-12-22] MEDS: LABETALOL 200 MG TAB PO SCH (18:45)
--- NOTE | 2017-12-22 21:36 | P.PN ---
Subjective Progress Note Date: 12/22/17 This patient is a 47-year-old right-handed white male who was seen yesterday in neurology consultation for recurrent seizures. Patient was intubated at that time. He is on Keppra monotherapy for seizure prophylaxis. His Keppra level was therapeutic at 31.2 He is been maintained on Keppra 1000 mg IV piggyback every 12 hours. We will switch him to oral dosing on Keppra thousand milligrams by mouth twice a day. He was sent for a repeat computed tomography scan of the brain yesterday which was negative for any acute changes. The patient seems to be tolerating his extubation very well today in the ICU. His is at bedside and is been feeding him small amounts of food which she is tolerating very well. He is now doing much better in the ICU. He is following simple commands. His repeat Keppra level done yesterday came back therapeutic at 31.2. He has had no further seizure activity over the last 3 days. He seems to be making good progress. Chest x-ray continues to show right lower lobe pneumonia. He is on antibiotic therapy for this condition as well. Blood pressure also seems to be doing much better today. Patient seen today in the intensive care unit and is sitting up at bedside in a chair. He seems to be quite alert and oriented. He will have hemodialysis likely tomorrow. We will continue close neurological follow-up with this patient with close monitoring for history of seizure disorder. His overall prognosis at this time remains guarded. Case was discussed at length with the patient's who was at bedside. All of her questions were answered. She is aware of his guarded condition. Objective - Vital Signs Vital signs: Vital Signs Temp 97.9 F 12/22/17 16:00 Pulse 77 12/22/17 18:00 Resp 11 L 12/22/17 18:00 BP 191/104 12/22/17 18:00 Pulse Ox 97 12/22/17 18:00 Intake & Output 12/22/17 12/22/17 12/23/17 06:59 18:59 06:59 Intake Total 1024 1262.5 Output Total 100 200 Balance 924 1062.5 Weight 71.7 kg Intake: IV 150 262.5 Piperacillin-Tazobactam 3 62.5 .375 gm In Dextrose/Water 1 50ml.bag @ 12.5 mls/hr IVPB Q12H [facility] Rx#: [id number] Sodium Chloride 0.9% 1, 150 200 000 ml @ 20 mls/hr IV . Q24H [facility] Rx#:[id number] Intake, IV Titration 474 Amount Labetalol 100 mg In 474 Sodium Chloride 0.9% 80 ml @ 2 MG/MIN 120 mls/hr IV .Q50M [facility] Rx#: [id number] Oral 400 1000 Output: Urine 100 200 Other: Voiding Method Bedside Commode Bedside Commode Urinal Urinal # Voids 1 # Bowel Movements 1 - Exam Physical examination: PHYSICAL EXAMINATION: Patient is resting comfortably in bed. Patient remains intubated on the ventilator in the ICU. VITAL SIGNS: Blood pressure is [180/104]. Heart rate is [77]. Respiration is [18 ]. Temperature is [97.9]. HEENT: Head is atraumatic, neck is supple, there were no carotid bruits. CHEST: Lungs are clear to auscultation and percussion. CARDIAC: S1, S2 normal rate and rhythm. There is no murmur. ABDOMEN: Soft and nontender. Bowel sounds are present. EXTREMITIES: There is no pedal edema. Peripheral pulses are present. Neurological examination: Patient was extubated off the ventilator this morning. He is resting comfortably in bed. He is alert and oriented 2. He is following simple commands. No focal weakness on examination. Deep tendon reflexes are 2+ and symmetric. Plantar responses flexor bilaterally. - Labs CBC & Chem 7: 12/22/17 04:41 12/22/17 04:41 Labs: Abnormal Lab Results - Last 24 Hours (Table) 12/18/17 12/22/17 12/22/17 Range/Units 19:41 04:41 04:41 RBC 2.55 L (4.30-5.90) m/uL Hgb 8.1 L (13.0-17.5) gm/dL Hct 25.4 L (39.0-53.0) % Plt Count 90 L (150-450) k/uL Lymphocytes # 0.7 L (1.0-4.8) k/uL BUN 29 H (9-20) mg/dL Creatinine 6.10 H* (0.66-1.25) mg/dL Calcium 8.2 L (8.4-10.2) mg/dL Phosphorus 5.7 H (2.5-4.5) mg/dL Chromogranin A 1938 H (0-95) ng/mL Microbiology - Last 24 Hours (Table) 12/18/17 14:56 Blood Culture - Preliminary Blood No Growth after 96 hours 12/18/17 13:45 Blood Culture - Preliminary Blood No Growth after 96 hours 12/21/17 13:18 Gram Stain - Preliminary Sputum Assessment and Plan (1) Generalized complex partial epilepsy Current Visit: Yes Status: Acute Code(s): G40.209 - LOCAL-REL SYMPTC EPI W CMPLX PRT SEIZ,NOT NTRCT,W/O STAT EPI SNOMED Code(s): 714626062 (2) History of stroke Current Visit: Yes Status: Acute Code(s): Z86.73 - PRSNL HX OF TIA (TIA), AND CEREB INFRC W/O RESID DEFICITS SNOMED Code(s): 427543702 (3) Acute encephalopathy Current Visit: Yes Status: Acute Code(s): G93.40 - ENCEPHALOPATHY, UNSPECIFIED SNOMED Code(s): 9973226 (4) End stage renal disease on dialysis Current Visit: Yes Status: Acute Code(s): N18.6 - END STAGE RENAL DISEASE; Z99.2 - DEPENDENCE ON RENAL DIALYSIS SNOMED Code(s): 949702917 Plan: This patient is a 47-year-old male who was initially admitted to the intensive care unit with status epilepticus. He has been doing much better since extubation. He is on Keppra monotherapy. His last Keppra level was therapeutic. Patient is doing much better in terms of his mental status today. He is to be maintained on current dose of Keppra thousand milligrams by mouth twice a day. We're waiting his Keppra blood level to return from the lab. He has evidence of a resolving metabolic encephalopathy. Patient will undergo hemodialysis likely tomorrow. We will continue close monitoring of his blood pressure as it is been borderline high. His overall prognosis at this time remains guarded. We will continue to monitor his progress closely in the intensive care unit.
[2017-12-22] MEDS: QUEtiapine 25 MG TAB PO SCH (21:46)
[2017-12-23] MEDS: cloNIDine HCL 0.1 MG TAB PO PRN (02:23)
[2017-12-23] MEDS: LABETALOL 5 MG/ML VIAL MDV IVP PRN ×4 (03:17→22:26)
[2017-12-23 04:36] LABS: Basophils % (A) 1 %; Eosinophils # (A) 0.1 k/uL (0-0.7); Eosinophils % (A) 2 %; HCT 27.7 % (39.0-53.0); HGB 8.5 gm/dL (13.0-17.5); Hypochromasia Marked; Lymphocytes # (A) 0.8 k/uL (1.0-4.8); Lymphocytes % (A) 17 %; MCH 31.8 pg (25.0-35.0); MCHC 30.6 g/dL (31.0-37.0); MCV 103.8 fL (80.0-100.0); Macrocytosis Moderate; Mean Platelet Volume 7.8; Monocytes # (A) 0.2 k/uL (0-1.0); Monocytes % (A) 5 %; Neutrophils # (A) 3.6 k/uL (1.3-7.7); Neutrophils % (A) 72 %; RBC 2.67 m/uL (4.30-5.90); RDW 15.8 % (11.5-15.5)
[2017-12-23 04:37] LABS: Platelet Count 91 k/uL (150-450)
[2017-12-23 04:51] LABS: Calcium 8.3 mg/dL (8.4-10.2); Magnesium 1.9 mg/dL (1.6-2.3); Phosphorus 6.9 mg/dL (2.5-4.5); Potassium 4.3 mmol/L (3.5-5.1)
[2017-12-23] MEDS ORDERED: LABETALOL 100 MG in SODIUM CHLORIDE 0.9% 80 ML IV SCH (05:33)
[2017-12-23] MEDS: PIPERACILLIN-TAZOBACTAM 3.375 GM in DEXTROSE/WATER 1 50ML.BAG IVPB SCH ×2 (06:13→18:12)
[2017-12-23] MEDS: IPRATROPIUM-ALBUTEROL 3 ML NEB INHALATION SCH ×4 (07:22→19:15)
[2017-12-23] MEDS: SODIUM CHLORIDE 0.9% 1,000 ML IV SCH (08:02)
[2017-12-23] MEDS: NICOTINE 14MG/24HR PATCH TRANSDERM SCH (08:02)
[2017-12-23] MEDS: SEVELAMER 800 MG TAB PO SCH ×3 (08:02→18:16)
[2017-12-23] MEDS: CALCIUM ACETATE 667 MG CAP PO SCH ×3 (08:02→18:16)
[2017-12-23] MEDS: CLOTRIMAZOLE TROCHE 10 MG TROCHE MUCOUS MEM SCH ×4 (08:03→22:23)
[2017-12-23] MEDS: amLODIPine 5 MG TAB PO SCH ×2 (08:03→20:04)
[2017-12-23] MEDS: ENOXAPARIN 30 MG/0.3 ML SYRINGE SQ SCH (08:03)
[2017-12-23] MEDS: cloNIDine HCL 0.1 MG TAB PO SCH ×3 (08:03→21:11)
[2017-12-23] MEDS: ASPIRIN 325 MG TAB PO SCH (08:04)
[2017-12-23] MEDS: LABETALOL 200 MG TAB PO SCH ×3 (08:04→20:05)
[2017-12-23] MEDS: ATORVASTATIN 20 MG TAB PO SCH (08:04)
[2017-12-23] MEDS: GABAPENTIN 100 MG CAP PO SCH ×2 (08:04→20:04)
[2017-12-23] MEDS: hydrALAZINE HCL 50 MG TAB PO SCH ×3 (08:04→16:37)
[2017-12-23] MEDS: levETIRAcetam 500 MG TAB PO SCH ×2 (08:05→20:05)
[2017-12-23] MEDS: LISINOPRIL 20 MG TAB PO SCH ×2 (08:05→20:05)
[2017-12-23] MEDS: SENNOSIDES-DOCUSATE SODIUM 1 EACH TAB PO SCH (08:06)
[2017-12-23] MEDS: PANTOPRAZOLE 40 MG/10 ML VIAL IV SCH (08:06)
[2017-12-23] MEDS: LABETALOL 100 MG in SODIUM CHLORIDE 0.9% 80 ML IV SCH ×15 (09:00→22:13)
--- NOTE | 2017-12-23 09:38 | P.PN ---
Subjective Progress Note Date: 12/23/17 Principal diagnosis: Hypertension, seizures Progress note dated 12/23/2017 This is a 47-year-old male who was admitted on December 18 because of seizures and hypertensive emergency. Currently, his blood pressure has been difficult to control. He is currently on IV labetalol as well as an number of other blood pressure medications being managed primarily by nephrology. His IV is saline at 20 mL an hour and his oxygen is at 2 L cannula. He otherwise is stable. Resting comfortably. No particular complaints. My partner believes that the patient sustained a episode of aspiration pneumonia and is on antibiotics for that. Objective - Vital Signs Vital signs: Vital Signs Temp 98.7 F 12/23/17 04:00 Pulse 90 12/23/17 07:32 Resp 11 L 12/23/17 07:00 BP 172/97 12/23/17 07:00 Pulse Ox 97 12/23/17 07:24 Intake & Output 12/22/17 12/23/17 12/23/17 18:59 06:59 18:59 Intake Total 1262.5 157.5 Output Total 200 Balance 1062.5 157.5 Intake: IV 262.5 157.5 Piperacillin-Tazobactam 3 62.5 37.5 .375 gm In Dextrose/Water 1 50ml.bag @ 12.5 mls/hr IVPB Q12H [facility] Rx#: [id number] Sodium Chloride 0.9% 1, 200 120 000 ml @ 20 mls/hr IV . Q24H [facility] Rx#:[id number] Oral 1000 Output: Urine 200 Other: Voiding Method Bedside Commode Bedside Commode Urinal Urinal # Voids 1 # Bowel Movements 1 - Exam No acute distress, oriented 3. HEENT examination is grossly unremarkable. Mucous membranes are moist. No oral lesions. Neck supple. Full range of motion. No adenopathy thyromegaly or neck vein distention. Cardiovascular examination reveals regular rhythm rate. S1-S2 normal. No S3 or S4. No discernible murmur noted. Lungs reveal clear breath sounds. Her sounds are equal bilaterally. No adventitious lung sounds including wheezes rhonchi or crackles. Abdomen soft bowel sounds are heard. No masses or tenderness. Extremities are intact. No cyanosis clubbing or edema. Skin is without rash or lesion. Neurologic examination is brief but nonfocal. - Labs CBC & Chem 7: 12/23/17 04:20 12/23/17 04:20 Labs: Abnormal Lab Results - Last 24 Hours (Table) 12/18/17 12/23/17 12/23/17 Range/Units 19:41 04:20 04:20 RBC 2.67 L (4.30-5.90) m/uL Hgb 8.5 L (13.0-17.5) gm/dL Hct 27.7 L (39.0-53.0) % MCV 103.8 H (80.0-100.0) fL MCHC 30.6 L (31.0-37.0) g/dL RDW 15.8 H (11.5-15.5) % Plt Count 91 L (150-450) k/uL Lymphocytes # 0.8 L (1.0-4.8) k/uL BUN 40 H (9-20) mg/dL Creatinine 8.60 H* (0.66-1.25) mg/dL Glucose 112 H (74-99) mg/dL Calcium 8.3 L (8.4-10.2) mg/dL Phosphorus 6.9 H (2.5-4.5) mg/dL Chromogranin A 1938 H (0-95) ng/mL Microbiology - Last 24 Hours (Table) 12/18/17 14:56 Blood Culture - Preliminary Blood No Growth after 96 hours 12/18/17 13:45 Blood Culture - Preliminary Blood No Growth after 96 hours 12/21/17 13:18 Gram Stain - Preliminary Sputum Assessment and Plan Assessment: Assessment Status epilepticus History of thalamic infarct Metabolic encephalopathy Hypoxemic and hypercapnic respiratory failure, resolved Bibasilar infiltrates, likely secondary to aspiration pneumonia Acute on chronic renal failure, currently on hemodialysis History of lacunar stroke Hypertension Poor medical compliance Chronic back pain Hypertensive nephrosclerosis History of nephrolithiasis History of chronic tobacco abuse Plan: Plan dated 12/23/2017 The patient's labs x-rays a medications are all reviewed. The patient's back on IV labetalol for blood pressure support. We'll continue to follow closely. Prognosis is poor. Additional recommendations and suggestions are forthcoming. Time spent with patient 36 minutes. Time with Patient: Greater than 30
[2017-12-23 10:38] VITALS: BMI 25.4
[2017-12-23] MEDS: THIAMINE 100 MG TAB PO SCH (12:48)
--- NOTE | 2017-12-23 14:48 | P.PN ---
Subjective Progress Note Date: 12/23/17 This is a 47-year-old male patient of Dr. Jaylen Madrid past medical history of end-stage renal disease on hemodialysis 3 times weekly, hypertension, seizure disorder. Patient had on July 062016 for TIA and was emergency room at that time for emergency center for post ictal state and hypertensive emergency by EMS with seizure activityand was seen in consultation by Dr. Vivreos. . He was again sent into the emergency room on 12/18/2017 secondary to prolonged post ictal status, there is concern for at the emergency room with active state of alcohol withdrawal. patient normally goes for hemodialysis Saturday, however he missed his scheduled dialysis yesterday Saturday. Compliance medications are unknown, urine drug screen not done, alcohol level less than 10 Patient comes in with significant elevated blood pressure systolic of 257/126 highest blood pressure along with agitation tremors, he had while being detained at the emergency room waiting for ICU bed patient had 6 seizures in the emergency room despite Ativan IV pushes, he had to be prophylactically intubated secondary to status epilepticus, and required Ativan drip secondary to uncontrolled seizures despite Ativan CIWA protocol. Patient currently is on IV Keppra 1 g, propofol, and would be sent to ICU, Dr. Park on consult, and Dr. Malone on consult. According to ER nurses, patient has a large emesis while being intubated Patient patient was febrile upon ER admission, flu test was requested, patient was given labetalol 40 mg IV,, for the elevated heart rate of 150, Catapres patch 0.2 and hydralazine 10 mg every 4 hours. Shahrzad spoken to the for additional info, he has baseline control of bp however it gets this high with sbp over 200 if pain from cervical stenosis is not under control, he has seen 2 neurosugeon for cervical stenosis and has adviced that surgery will increase risk of surgical failures and recommended water physiotherapy. last ILS cervical area was with dr cohen in 08/2107. he takes tylenol 3 sparingly, he had an original rx in 07/2017 which hasn't been used up on its entirety. denies any alcohol dependency, not even a closet drinker. During his last admission in July 2017 for seizures and hypertensive urgency, he had an evolving thalamic infarct, in July 2017, imaging studies included There was concern for cervical spondylosis cervcial stenosis and recommended MRI of the cervical spine and orthopedic consult. Carotid duplex showed no stenosis. Echocardiogram revealed EF of 55-60%, no pulmonary hypertension, moderate concentric left hypertrophy, trace mitral regurgitation, trace tricuspid regurgitation. EEG of the brain showed moderate encephalopathy with no epileptiform waves l 2/: Repeat chest x-ray shows interval retraction of the endotracheal tube, now appropriately placed in stable positioning of the enteric tube. Redemonstration of central vascular congestion and bibasilar opacities favored to represent atelectasis although pneumonia is also possible. Patient has intensive care management with Dr. Fraire, Dr. Park is following from nephrology and Dr. Viveros from neurology. EEG pending. Repeat CAT scan of brain is negative for acute findings. Patient remains intubated and on mechanical ventilation. His sedation is currently off. Keppra level is pending. Patient has been off labetalol drip since 5 AM. CAT scan of the chest suggests gastritis, combination of consolidation or atelectasis suggested pneumonia not excluded. Correlate for fluid overload as there is mild diffuse anasarca. Small pericardial effusion. Prominent small bowel loops but no discrete transition point. Generalized ileus or enteritis is favored. Splenomegaly. Bladder wall thickening may be atrophy or cystitis. Chronic kidney disease with nonobstructive renal calculi. 2/2: Patient was successfully extubated this morning. He is complaining of pain for which gabapentin 100 mg twice daily as been added. Patient also noted to have thrush for which Mycelex added. Hemoglobin is down 8.4, BUN 33 and creatinine 6.5. Repeat Keppra level is 31.2. Sputum culture in progress. Blood cultures are showing no growth 2. 2/3: patient remains in the intensive care unit. He has been stable. Patient will be transferred to selective care today and Norvasc will be resumed. He has maintained on IV Keppra per neurology. Patient is scheduled for hemodialysis today. Repeat chest x-ray shows cardiomegaly, vascular congestion , bibasilar airspace disease worse on the left than the right. Left-sided effusion. 2/4: Patient underwent hemodialysis yesterday. Patient is continued on Keppra per Dr. Viveros and has been switched over to oral at 1000 mg twice daily. Hemoglobin 8.1, BUN 29 creatinine 6.1. Patient developed severe hyper-tension last night with pressures of 203/110. Patient was on labetalol drip for about 4 hours and also received IV push 3 doses and also started on clonidine. Last nephrology to address blood pressure control. 12/23: Blood pressure has been on the higher side again nephrology will address blood pressure medications. He is to have hemodialysis tomorrow. Keppra level is borderline low normal. Chromogranin a as 1938 which is high and consult placed with Dr. Covarrubias. Objective - Vital Signs Vital signs: Vital Signs Temp 97.9 F 12/23/17 08:00 Pulse 83 12/23/17 10:00 Resp 14 12/23/17 10:00 BP 149/81 12/23/17 10:00 Pulse Ox 95 12/23/17 10:00 Intake & Output 12/22/17 12/23/17 12/23/17 18:59 06:59 18:59 Intake Total 1262.5 157.5 362.5 Output Total 200 Balance 1062.5 157.5 362.5 Weight 71.7 kg Intake: IV 262.5 157.5 12.5 Piperacillin-Tazobactam 3 62.5 37.5 12.5 .375 gm In Dextrose/Water 1 50ml.bag @ 12.5 mls/hr IVPB Q12H KRISTY Rx#: [id number] Sodium Chloride 0.9% 1, 200 120 000 ml @ 20 mls/hr IV . Q24H KRISTY Rx#:[id number] Intake, IV Titration 100 Amount Labetalol 100 mg In 100 Sodium Chloride 0.9% 80 ml @ 2 MG/MIN 120 mls/hr IV .Q50M KRISTY Rx#: [id number] Oral 1000 250 Output: Urine 200 Other: Voiding Method Bedside Commode Bedside Commode Bedside Commode Urinal Urinal Urinal # Voids 1 1 # Bowel Movements 1 - Exam General appearance: average body habitus, cooperative, disheveled - EENT Eyes: anicteric sclerae, PERRLA - Respiratory Respiratory: bilateral: CTA, diminished - Cardiovascular Rhythm: regular Abnormal Heart Sounds: systolic murmur - Gastrointestinal General gastrointestinal: soft - Integumentary Integumentary: decreased turgor, normal - Psychiatric alert and oriented 3 - Labs CBC & Chem 7: 12/23/17 04:20 12/23/17 04:20 Labs: Abnormal Lab Results - Last 24 Hours (Table) 12/23/17 12/23/17 Range/Units 04:20 04:20 RBC 2.67 L (4.30-5.90) m/uL Hgb 8.5 L (13.0-17.5) gm/dL Hct 27.7 L (39.0-53.0) % MCV 103.8 H (80.0-100.0) fL MCHC 30.6 L (31.0-37.0) g/dL RDW 15.8 H (11.5-15.5) % Plt Count 91 L (150-450) k/uL Lymphocytes # 0.8 L (1.0-4.8) k/uL BUN 40 H (9-20) mg/dL Creatinine 8.60 H* (0.66-1.25) mg/dL Glucose 112 H (74-99) mg/dL Calcium 8.3 L (8.4-10.2) mg/dL Phosphorus 6.9 H (2.5-4.5) mg/dL Microbiology - Last 24 Hours (Table) 12/18/17 14:56 Blood Culture - Preliminary Blood No Growth after 96 hours 12/18/17 13:45 Blood Culture - Preliminary Blood No Growth after 96 hours Assessment and Plan Plan: 1. Status epilepticus with known history of seizures after his CVA, prior history of thalamus infarct, in July 2017. Patient currently is intubated on 12/18/2017 at 1300 hrs. for prophylactic reasons, has multiple seizures while in the emergency room. Continue Keppra changed to oral, nephrology Dr. Viveros. Consult with Dr. Fraire research and development tester. Obtain Keppra levels. Monitor for aspirate the events, patient was febrile upon ER admission, influenza test negative urine drug screen negative alcohol level less than 10. 2. Hypertensive emergency, possibly secondary to uncontrolled pain from cervical stenosis with his underlying renovascular hypertension. Patient currently is on Catapres 0.2 mg, labetalol 10 mg every 4 hours IV with renal dosing and hydralazine 10 mg every 4 hours when necessary for systolic blood pressure over 160Currently on Norvasc 5 mg twice daily, Catapres 0.3 mg twice daily, hydralazine 50 mg twice daily scheduled and IV push as needed, lisinopril 20 mg twice daily. will monitor and eval for pheochromocytoma. morphine for pain 3. History of left thalamus stroke July 2017. 325 mg rectally or NG/ G- tube 4. CKD stage v for with respiratory acidosis secondary to seizures, end-stage renal disease on hemodialysis Saturday, one missed treatments, Dr. Berg on consult 5. Concern for alcohol withdrawals, patient currently is on CIWA protocol 6. Acute hypoxic respiratory failure secondary seizures to rule out overload from missed dialysis treatments, seizure activity Dr. Fraire is on consult. Patient has been successfully intubated on 12/18/2017 at 1300 hrs at the emergency room. Patient has been extubated. 7. End-stage renal disease and lactic acidosis on hemodialysis presenting with fluid overload secondary to noncompliance and missing 2 dialysis treatments. Patient is currently undergoing dialysis in the emergency center. Dr. Park is on consult. 8. Chronic cervical pain cervical stenosis Patient had pain management injections with Dr. Cohen in the past, last one 08/2017, has seen neurosurgeon in [facility], no current recommendation surgery, another in [place] neurosurgeon, who advised high risk for failures to undergo cervical spine surgery. rx morphine iv prn while intubated, once stabilized with seizures, will add gabapentin 100 mg twice daily 9. Tobacco use and dependence and recently discharged on nicotine patch. Secondary to mentation from seizures and obtundation from that support, unknown status for tobacco use 10. Chronic thrombocytopenia. Monitor. 11. Insomnia, chronic sleep deprivation secondary to uncontrolled cervical stenosis pain, sleep hinduism is important for seizure control as well. once extubated will readdress this issue. currently on propofol on vent 12. Acute respiratory acidosis with chronic combined respiratory/metabolic compensation 13. DVT prophylaxis. Lovenox. 13 GI prophylaxis. Protonix IV Discharge planning to be determined Prognosis guarded Impression and plan of care have been directed as dictated by the signing physician. Doretha Brumfield nurse practitioner acting as scribe for signing physician.
[2017-12-23 19:37] LABS: Metanephrine, Free 77 pg/mL (< OR = 57); Normetanephrine, Free 188 pg/mL (< OR = 148); Total, Free (MN + NMN) 265 pg/mL (< OR = 205)
[2017-12-23] MEDS: QUEtiapine 25 MG TAB PO SCH (20:05)
--- NOTE | 2017-12-23 20:41 | PN ---
PROGRESS NOTE Patient was seen this morning. He was seen for followup for end-stage renal disease. Patient is maintained on a Saturday, , Saturday schedule for dialysis. He was admitted to the hospital with seizures and respiratory failure. He was intubated, and was extubated 2 days ago. Blood pressure has been running high and patient was started on labetalol drip. He is currently sitting up. Denies any significant complaints. He has had neck pain from cervical stenosis. PHYSICAL EXAMINATION: Blood pressure was 160/88 this morning. EXAMINATION OF THE HEART: S1, S2. EXAMINATION OF LUNGS: Bilateral breath sounds are heard. No crackles or wheezing is heard. ABDOMEN: Soft, non-tender. Examination of lower extremities shows no evidence of edema. SPEECH AND HEARING DIRECTOR exam is grossly intact. Patient moving all 4 extremities. Skin exam is fairly intact. Chronic skin changes are noted, mainly in the lower extremities. LABS: Sodium 140, potassium 4.3, hemoglobin 8.5 g/dL. Chromogranin A was ordered on admission on 12/18/2017, and it came back at 1938. ASSESSMENT: 1. End-stage renal disease, on hemodialysis on a Saturday, , Saturday schedule. We will arrange for hemodialysis in a.m. 2. Uncontrolled hypertension. Patient is maintained on 4 medications, and a fifth one was started yesterday in the form of labetalol. He is currently on labetalol drip. There is still room on the hydralazine and the labetalol p.o. We will try to discontinue the labetalol drip. Continue with the clonidine. Patient has not tolerated Coreg very well previously. 3. Chromogranin A was ordered, I believe inadvertently. This is usually tested to rule out carcinoid syndrome, and clinically patient does not appear to have symptoms suggestive of carcinoid syndrome. Ideally it is associated with hypotension from significant vasodilation rather than hypertension. 4. Vent-dependent respiratory failure, status post extubation. 5. Chronic kidney disease mineral bone disorder, maintained on PhosLo. 6. History of nephrolithiasis. Patient has passed a kidney stone, which will be sent to the lab for identification. 7. Cervical stenosis, being followed by Neurology as outpatient. 8. Seizures, being followed by Neurology as well and currently controlled. 9. History of thalamic infarct. PLAN: Increase labetalol p.o. and increase oral hydralazine. Continue with current dose of Norvasc and the clonidine. The elevated chromogranin level is quite nonspecific, as it was done when patient was critically ill with seizures and vent-dependent respiratory failure. It is used in diagnosis of carcinoid syndrome. However, the patient does not have any clinical suggestion of carcinoid syndrome. This is also associated more with hypotension rather than hypertension secondary to vasodilatation and associated with flushing, abdominal cramps, diarrhea. I will hold off on the hematology/oncology consult for now. MMODL / IJN: [id number] /
[2017-12-23] MEDS ORDERED: hydrALAZINE HCL 25 MG TAB PO SCH (22:00)
[2017-12-23] MEDS ORDERED: hydrALAZINE HCL 50 MG TAB PO SCH (22:03)
[2017-12-23] MEDS: SPIRONOLACTONE 25 MG TAB PO SCH (22:24)
[2017-12-23] MEDS ORDERED: hydrALAZINE HCL 50 MG TAB PO STA (22:48)
--- NOTE | 2017-12-23 23:15 | P.PN ---
Subjective Progress Note Date: 12/23/17 This patient is a 47-year-old right-handed white male who was seen yesterday in neurology consultation for recurrent seizures. Patient was intubated at that time. He is on Keppra monotherapy for seizure prophylaxis. His Keppra level was therapeutic at 31.2 He is been maintained on Keppra 1000 mg IV piggyback every 12 hours. We will switch him to oral dosing on Keppra thousand milligrams by mouth twice a day. He was sent for a repeat computed tomography scan of the brain yesterday which was negative for any acute changes. The patient seems to be tolerating his extubation very well today in the ICU. His is at bedside and is been feeding him small amounts of food which she is tolerating very well. He is now doing much better in the ICU. He is following simple commands. His repeat Keppra level done yesterday came back therapeutic at 31.2. He has had no further seizure activity over the last 3 days. He seems to be making good progress. Chest x-ray continues to show right lower lobe pneumonia. He is on antibiotic therapy for this condition as well. Blood pressure also seems to be doing much better today. Patient seen today in the intensive care unit and is sitting up at bedside in a chair. He seems to be quite alert and oriented. He will have hemodialysis likely tomorrow. His Keppra level today came back therapeutic at 30.1. He has had no reported seizures in the ICU. We will continue close neurological follow-up with this patient with close monitoring for history of seizure disorder. Objective - Vital Signs Vital signs: Vital Signs Temp 97.9 F 12/23/17 08:00 Pulse 77 12/23/17 16:12 Resp 18 12/23/17 15:00 BP 145/82 12/23/17 15:00 Pulse Ox 97 12/23/17 15:57 Intake & Output 12/22/17 12/23/17 12/23/17 18:59 06:59 18:59 Intake Total 1262.5 157.5 362.5 Output Total 200 Balance 1062.5 157.5 362.5 Weight 71.7 kg Intake: IV 262.5 157.5 12.5 Piperacillin-Tazobactam 3 62.5 37.5 12.5 .375 gm In Dextrose/Water 1 50ml.bag @ 12.5 mls/hr IVPB Q12H KRISTY Rx#: [id number] Sodium Chloride 0.9% 1, 200 120 000 ml @ 20 mls/hr IV . Q24H KRISTY Rx#:[id number] Intake, IV Titration 100 Amount Labetalol 100 mg In 100 Sodium Chloride 0.9% 80 ml @ 2 MG/MIN 120 mls/hr IV .Q50M KRISTY Rx#: [id number] Oral 1000 250 Output: Urine 200 Other: Voiding Method Bedside Commode Bedside Commode Bedside Commode Urinal Urinal Urinal # Voids 1 1 # Bowel Movements 1 - Exam Physical examination: PHYSICAL EXAMINATION: Patient is resting comfortably in bed. Patient is awake alert and oriented 3. He is sitting up in chair next to his bed. VITAL SIGNS: Blood pressure is [173/94]. Heart rate is [79]. Respiration is [14] . Temperature is [97.9]. HEENT: Head is atraumatic, neck is supple, there were no carotid bruits. CHEST: Lungs are clear to auscultation and percussion. CARDIAC: S1, S2 normal rate and rhythm. There is no murmur. ABDOMEN: Soft and nontender. Bowel sounds are present. EXTREMITIES: There is no pedal edema. Peripheral pulses are present. Neurological examination: Patient resting comfortably in bed. He is able to follow simple commands. He is alert and oriented 2. He is following simple commands. No focal weakness on examination. Deep tendon reflexes are 2+ and symmetric. Plantar responses flexor bilaterally. - Labs CBC & Chem 7: 12/23/17 04:20 12/23/17 04:20 Labs: Abnormal Lab Results - Last 24 Hours (Table) 12/23/17 12/23/17 Range/Units 04:20 04:20 RBC 2.67 L (4.30-5.90) m/uL Hgb 8.5 L (13.0-17.5) gm/dL Hct 27.7 L (39.0-53.0) % MCV 103.8 H (80.0-100.0) fL MCHC 30.6 L (31.0-37.0) g/dL RDW 15.8 H (11.5-15.5) % Plt Count 91 L (150-450) k/uL Lymphocytes # 0.8 L (1.0-4.8) k/uL BUN 40 H (9-20) mg/dL Creatinine 8.60 H* (0.66-1.25) mg/dL Glucose 112 H (74-99) mg/dL Calcium 8.3 L (8.4-10.2) mg/dL Phosphorus 6.9 H (2.5-4.5) mg/dL Microbiology - Last 24 Hours (Table) 12/21/17 13:18 Gram Stain - Preliminary Sputum Sputum Culture - Preliminary Ana albicans 12/18/17 14:56 Blood Culture - Preliminary Blood No Growth after 96 hours 12/18/17 13:45 Blood Culture - Preliminary Blood No Growth after 96 hours Assessment and Plan (1) Generalized complex partial epilepsy Current Visit: Yes Status: Acute Code(s): G40.209 - LOCAL-REL SYMPTC EPI W CMPLX PRT SEIZ,NOT NTRCT,W/O STAT EPI SNOMED Code(s): 104089266 (2) History of stroke Current Visit: Yes Status: Acute Code(s): Z86.73 - PRSNL HX OF TIA (TIA), AND CEREB INFRC W/O RESID DEFICITS SNOMED Code(s): 825142184 (3) Acute encephalopathy Current Visit: Yes Status: Acute Code(s): G93.40 - ENCEPHALOPATHY, UNSPECIFIED SNOMED Code(s): 6356048 (4) End stage renal disease on dialysis Current Visit: Yes Status: Acute Code(s): N18.6 - END STAGE RENAL DISEASE; Z99.2 - DEPENDENCE ON RENAL DIALYSIS SNOMED Code(s): 794973158 Plan: This patient is a 47-year-old male being evaluated for episode of status epilepticus. He continues on Keppra monotherapy and his recent Keppra blood level came back therapeutic at 30.1. We are recommending he be maintained on his current dose of Keppra. He has had no further seizures in the intensive care unit. We will continue to monitor his progress closely. Plan is to transfer him to medical floor when he is medically stable. His overall prognosis at this time remains fair. We will continue to follow his progress closely in the intensive care unit.
[2017-12-24 04:55] LABS: Basophils % (A) 1 %; Eosinophils # (A) 0.2 k/uL (0-0.7); Eosinophils % (A) 3 %; HCT 26.9 % (39.0-53.0); HGB 8.3 gm/dL (13.0-17.5); Hypochromasia Slight; Lymphocytes # (A) 0.8 k/uL (1.0-4.8); Lymphocytes % (A) 15 %; MCH 31.2 pg (25.0-35.0); MCHC 30.7 g/dL (31.0-37.0); MCV 101.7 fL (80.0-100.0); Macrocytosis Slight; Mean Platelet Volume 7.3; Monocytes # (A) 0.2 k/uL (0-1.0); Monocytes % (A) 5 %; Neutrophils # (A) 3.8 k/uL (1.3-7.7); Neutrophils % (A) 73 %; Platelet Count 106 k/uL (150-450); RBC 2.65 m/uL (4.30-5.90); RDW 15.4 % (11.5-15.5); WBC 5.2 k/uL (3.8-10.6)
[2017-12-24 05:10] LABS: Calcium 8.4 mg/dL (8.4-10.2); Magnesium 1.8 mg/dL (1.6-2.3); Phosphorus 7.4 mg/dL (2.5-4.5); Total Bilirubin 0.5 mg/dL (0.2-1.3); Total Protein 5.1 g/dL (6.3-8.2)
[2017-12-24] MEDS: PIPERACILLIN-TAZOBACTAM 3.375 GM in DEXTROSE/WATER 1 50ML.BAG IVPB SCH ×2 (05:16→17:22)
[2017-12-24 05:30] LABS: Potassium 4.1 mmol/L (3.5-5.1)
[2017-12-24] MEDS: NICOTINE 14MG/24HR PATCH TRANSDERM SCH (07:55)
[2017-12-24] MEDS: IPRATROPIUM-ALBUTEROL 3 ML NEB INHALATION SCH ×4 (08:12→19:56)
[2017-12-24] MEDS: CALCIUM ACETATE 667 MG CAP PO SCH ×3 (08:19→17:22)
[2017-12-24] MEDS: PANTOPRAZOLE 40 MG TABLET PO SCH (08:20)
[2017-12-24] MEDS: SEVELAMER 800 MG TAB PO SCH ×3 (08:20→17:22)
[2017-12-24] MEDS: ASPIRIN 325 MG TAB PO SCH (08:21)
[2017-12-24] MEDS: amLODIPine 5 MG TAB PO SCH ×2 (08:21→20:09)
[2017-12-24] MEDS: ATORVASTATIN 20 MG TAB PO SCH (08:21)
[2017-12-24] MEDS: cloNIDine HCL 0.1 MG TAB PO SCH ×3 (08:22→20:59)
[2017-12-24] MEDS: CLOTRIMAZOLE TROCHE 10 MG TROCHE MUCOUS MEM SCH ×4 (08:22→21:01)
[2017-12-24] MEDS: GABAPENTIN 100 MG CAP PO SCH ×2 (08:23→20:09)
[2017-12-24] MEDS: ENOXAPARIN 30 MG/0.3 ML SYRINGE SQ SCH (08:23)
[2017-12-24] MEDS: levETIRAcetam 500 MG TAB PO SCH ×2 (08:24→20:12)
[2017-12-24] MEDS: LABETALOL 200 MG TAB PO SCH ×2 (08:24→20:08)
[2017-12-24] MEDS: LISINOPRIL 20 MG TAB PO SCH ×2 (08:25→20:09)
[2017-12-24] MEDS: SPIRONOLACTONE 25 MG TAB PO SCH (08:25)
[2017-12-24] MEDS: SENNOSIDES-DOCUSATE SODIUM 1 EACH TAB PO SCH (08:27)
[2017-12-24 08:50] LABS: Basophils % (A) 1 %; Eosinophils # (A) 0.1 k/uL (0-0.7); Eosinophils % (A) 3 %; HCT 26.6 % (39.0-53.0); HGB 8.9 gm/dL (13.0-17.5); Lymphocytes # (A) 0.8 k/uL (1.0-4.8); Lymphocytes % (A) 15 %; MCH 33.1 pg (25.0-35.0); MCHC 33.4 g/dL (31.0-37.0); MCV 99.3 fL (80.0-100.0); Macrocytosis Slight; Mean Platelet Volume 7.3; Monocytes # (A) 0.2 k/uL (0-1.0); Monocytes % (A) 4 %; Neutrophils # (A) 4.2 k/uL (1.3-7.7); Neutrophils % (A) 75 %; Platelet Count 118 k/uL (150-450); RBC 2.67 m/uL (4.30-5.90); RDW 15.4 % (11.5-15.5); WBC 5.6 k/uL (3.8-10.6)
[2017-12-24] MEDS: hydrALAZINE HCL 50 MG TAB PO SCH ×3 (10:10→20:59)
--- NOTE | 2017-12-24 10:14 | P.PN ---
Subjective Progress Note Date: 12/24/17 Principal diagnosis: Hypertension, seizures Progress note dated 12/23/2017 This is a 47-year-old male who was admitted on December 18 because of seizures and hypertensive emergency. Currently, his blood pressure has been difficult to control. He is currently on IV labetalol as well as an number of other blood pressure medications being managed primarily by nephrology. His IV is saline at 20 mL an hour and his oxygen is at 2 L cannula. He otherwise is stable. Resting comfortably. No particular complaints. My partner believes that the patient sustained a episode of aspiration pneumonia and is on antibiotics for that. Progress note dated 12/24/2017 This is a 47-year-old male who was admitted back on December 18 because of seizures and hypertensive emergency. Yesterday, his blood pressure was difficult to control and he was on IV labetalol as well as a number of other medications. Currently his blood pressures much better control. The patient's only receiving O2 at 2 L. He did receive hemodialysis today and 1 L was removed. The patient is using IV labetalol only when necessary now. Other than that, the patient's doing very well. Is being treated for aspiration pneumonia with antibiotics. Likely the patient could be transferred out of the ICU. His blood pressure medications are primarily being managed by nephrology. Objective - Vital Signs Vital signs: Vital Signs Temp 97.9 F 12/24/17 08:00 Pulse 75 12/24/17 09:00 Resp 12 12/24/17 09:00 BP 140/88 12/24/17 09:00 Pulse Ox 98 12/24/17 09:00 Intake & Output 12/23/17 12/24/17 12/24/17 18:59 06:59 18:59 Intake Total 622.5 532.5 52.5 Output Total 425 200 Balance 622.5 107.5 -147.5 Weight 71.7 kg Intake: IV 32.5 182.5 52.5 Piperacillin-Tazobactam 3 12.5 62.5 12.5 .375 gm In Dextrose/Water 1 50ml.bag @ 12.5 mls/hr IVPB Q12H [facility] Rx#: [id number] Sodium Chloride 0.9% 1, 20 120 40 000 ml @ 20 mls/hr IV . Q24H [facility] Rx#:[id number] Intake, IV Titration 100 Amount Labetalol 100 mg In 100 Sodium Chloride 0.9% 80 ml @ 2 MG/MIN 120 mls/hr IV .Q50M [facility] Rx#: [id number] Oral 490 350 Output: Urine 425 200 Other: Voiding Method Bedside Commode Bedside Commode Urinal Urinal Urinal # Voids 1 1 1 # Bowel Movements 1 - Exam No acute distress, oriented 3. HEENT examination is grossly unremarkable. Mucous membranes are moist. No oral lesions. Neck supple. Full range of motion. No adenopathy thyromegaly or neck vein distention. Cardiovascular examination reveals regular rhythm rate. S1-S2 normal. No S3 or S4. No discernible murmur noted. Lungs reveal clear breath sounds. Her sounds are equal bilaterally. No adventitious lung sounds including wheezes rhonchi or crackles. Abdomen soft bowel sounds are heard. No masses or tenderness. Extremities are intact. No cyanosis clubbing or edema. Skin is without rash or lesion. Neurologic examination is brief but nonfocal. - Labs CBC & Chem 7: 12/24/17 08:33 12/24/17 04:35 Labs: Abnormal Lab Results - Last 24 Hours (Table) 12/19/17 12/24/17 12/24/17 Range/Units 04:52 04:35 04:35 RBC 2.65 L (4.30-5.90) m/uL Hgb 8.3 L (13.0-17.5) gm/dL Hct 26.9 L (39.0-53.0) % MCV 101.7 H (80.0-100.0) fL MCHC 30.7 L (31.0-37.0) g/dL Plt Count 106 L (150-450) k/uL Lymphocytes # 0.8 L (1.0-4.8) k/uL BUN 49 H (9-20) mg/dL Creatinine 10.21 H* (0.66-1.25) mg/dL Glucose 100 H (74-99) mg/dL Phosphorus 7.4 H (2.5-4.5) mg/dL Total Protein 5.1 L (6.3-8.2) g/dL Albumin 3.0 L (3.5-5.0) g/dL Plasma Free Metaneph 77 H (< OR = 57) pg/mL Plasma Free Normeta 188 H (< OR = 148) pg/mL Pls Totl Free Metaneph 265 H (< OR = 205) pg/mL 12/24/17 Range/Units 08:33 RBC 2.67 L (4.30-5.90) m/uL Hgb 8.9 L (13.0-17.5) gm/dL Hct 26.6 L (39.0-53.0) % MCV (80.0-100.0) fL MCHC (31.0-37.0) g/dL Plt Count 118 L (150-450) k/uL Lymphocytes # 0.8 L (1.0-4.8) k/uL BUN (9-20) mg/dL Creatinine (0.66-1.25) mg/dL Glucose (74-99) mg/dL Phosphorus (2.5-4.5) mg/dL Total Protein (6.3-8.2) g/dL Albumin (3.5-5.0) g/dL Plasma Free Metaneph (< OR = 57) pg/mL Plasma Free Normeta (< OR = 148) pg/mL Pls Totl Free Metaneph (< OR = 205) pg/mL Microbiology - Last 24 Hours (Table) 12/18/17 14:56 Blood Culture - Preliminary Blood No Growth after 120 hours 12/18/17 13:45 Blood Culture - Preliminary Blood No Growth after 120 hours 12/21/17 13:18 Gram Stain - Preliminary Sputum Sputum Culture - Preliminary Ana albicans Assessment and Plan Assessment: Assessment Status epilepticus History of thalamic infarct Metabolic encephalopathy Hypoxemic and hypercapnic respiratory failure, resolved Bibasilar infiltrates, likely secondary to aspiration pneumonia Acute on chronic renal failure, currently on hemodialysis History of lacunar stroke Hypertension Poor medical compliance Chronic back pain Hypertensive nephrosclerosis History of nephrolithiasis History of chronic tobacco abuse Plan: Plan dated 12/23/2017 The patient's labs x-rays a medications are all reviewed. The patient's back on IV labetalol for blood pressure support. We'll continue to follow closely. Prognosis is poor. Additional recommendations and suggestions are forthcoming. Time spent with patient 36 minutes. Plan dated 10/23/2018 The patient's doing much better. The patient could be transferred out of the intensive care unit. The patient's blood pressures much better control. The patient did have hemodialysis today. 1 L of fluid was removed. Nephrology continues to manage his blood pressure issues. We'll continue to follow from the critical care standpoint. Time spent withpatient was 31 minutes. Time with Patient: Greater than 30
[2017-12-24] MEDS: SODIUM CHLORIDE 0.9% 1,000 ML IV SCH ×2 (11:14→21:57)
[2017-12-24] MEDS: THIAMINE 100 MG TAB PO SCH (12:02)
[2017-12-24] MEDS: FUROSEMIDE 10 MG/ML 10 ML VIAL IV SCH ×2 (12:28→20:09)
--- NOTE | 2017-12-24 14:14 | P.PN ---
Subjective Progress Note Date: 12/24/17 This is a 47-year-old male patient of Dr. Jaylen Madrid past medical history of end-stage renal disease on hemodialysis 3 times weekly, hypertension, seizure disorder. Patient had on July 062016 for TIA and was emergency room at that time for emergency center for post ictal state and hypertensive emergency by EMS with seizure activityand was seen in consultation by Dr. Viveros. . He was again sent into the emergency room on 12/18/2017 secondary to prolonged post ictal status, there is concern for at the emergency room with active state of alcohol withdrawal. patient normally goes for hemodialysis Saturday, however he missed his scheduled dialysis yesterday Saturday. Compliance medications are unknown, urine drug screen not done, alcohol level less than 10 Patient comes in with significant elevated blood pressure systolic of 257/126 highest blood pressure along with agitation tremors, he had while being detained at the emergency room waiting for ICU bed patient had 6 seizures in the emergency room despite Ativan IV pushes, he had to be prophylactically intubated secondary to status epilepticus, and required Ativan drip secondary to uncontrolled seizures despite Ativan CIWA protocol. Patient currently is on IV Keppra 1 g, propofol, and would be sent to ICU, Dr. Park on consult, and Dr. Malone on consult. According to ER nurses, patient has a large emesis while being intubated Patient patient was febrile upon ER admission, flu test was requested, patient was given labetalol 40 mg IV,, for the elevated heart rate of 150, Catapres patch 0.2 and hydralazine 10 mg every 4 hours. Shahrzad spoken to the for additional info, he has baseline control of bp however it gets this high with sbp over 200 if pain from cervical stenosis is not under control, he has seen 2 neurosugeon for cervical stenosis and has adviced that surgery will increase risk of surgical failures and recommended water physiotherapy. last ILS cervical area was with dr cohen in 08/2107. he takes tylenol 3 sparingly, he had an original rx in 07/2017 which hasn't been used up on its entirety. denies any alcohol dependency, not even a closet drinker. During his last admission in July 2017 for seizures and hypertensive urgency, he had an evolving thalamic infarct, in July 2017, imaging studies included There was concern for cervical spondylosis cervcial stenosis and recommended MRI of the cervical spine and orthopedic consult. Carotid duplex showed no stenosis. Echocardiogram revealed EF of 55-60%, no pulmonary hypertension, moderate concentric left hypertrophy, trace mitral regurgitation, trace tricuspid regurgitation. EEG of the brain showed moderate encephalopathy with no epileptiform waves l 2/: Repeat chest x-ray shows interval retraction of the endotracheal tube, now appropriately placed in stable positioning of the enteric tube. Redemonstration of central vascular congestion and bibasilar opacities favored to represent atelectasis although pneumonia is also possible. Patient has intensive care management with Dr. Fraire, Dr. Park is following from nephrology and Dr. Viveros from neurology. EEG pending. Repeat CAT scan of brain is negative for acute findings. Patient remains intubated and on mechanical ventilation. His sedation is currently off. Keppra level is pending. Patient has been off labetalol drip since 5 AM. CAT scan of the chest suggests gastritis, combination of consolidation or atelectasis suggested pneumonia not excluded. Correlate for fluid overload as there is mild diffuse anasarca. Small pericardial effusion. Prominent small bowel loops but no discrete transition point. Generalized ileus or enteritis is favored. Splenomegaly. Bladder wall thickening may be atrophy or cystitis. Chronic kidney disease with nonobstructive renal calculi. 2/2: Patient was successfully extubated this morning. He is complaining of pain for which gabapentin 100 mg twice daily as been added. Patient also noted to have thrush for which Mycelex added. Hemoglobin is down 8.4, BUN 33 and creatinine 6.5. Repeat Keppra level is 31.2. Sputum culture in progress. Blood cultures are showing no growth 2. 2/3: patient remains in the intensive care unit. He has been stable. Patient will be transferred to selective care today and Norvasc will be resumed. He has maintained on IV Keppra per neurology. Patient is scheduled for hemodialysis today. Repeat chest x-ray shows cardiomegaly, vascular congestion , bibasilar airspace disease worse on the left than the right. Left-sided effusion. 2/4: Patient underwent hemodialysis yesterday. Patient is continued on Keppra per Dr. Viveros and has been switched over to oral at 1000 mg twice daily. Hemoglobin 8.1, BUN 29 creatinine 6.1. Patient developed severe hyper-tension last night with pressures of 203/110. Patient was on labetalol drip for about 4 hours and also received IV push 3 doses and also started on clonidine. Last nephrology to address blood pressure control. 12/23: Blood pressure has been on the higher side again nephrology will address blood pressure medications. He is to have hemodialysis tomorrow. Keppra level is borderline low normal. Chromogranin a as 1938 which is high and consult placed with Dr. Covarrubias. 12/24: Blood pressure remains elevated for which hydralazine will be increased [address] Figueroa would like to keep the patient overnight and repeat dialysis tomorrow. We will plan on discharge tomorrow. Patient is still waiting for a bed out of ICU. Objective - Vital Signs Vital signs: Vital Signs Temp 97.9 F 12/24/17 08:00 Pulse 75 12/24/17 09:00 Resp 12 12/24/17 09:00 BP 140/88 12/24/17 09:00 Pulse Ox 98 12/24/17 09:00 Intake & Output 12/23/17 12/24/17 12/24/17 18:59 06:59 18:59 Intake Total 622.5 532.5 72.5 Output Total 425 200 Balance 622.5 107.5 -127.5 Weight 71.7 kg Intake: IV 32.5 182.5 72.5 Piperacillin-Tazobactam 3 12.5 62.5 12.5 .375 gm In Dextrose/Water 1 50ml.bag @ 12.5 mls/hr IVPB Q12H [facility] Rx#: [id number] Sodium Chloride 0.9% 1, 20 120 60 000 ml @ 20 mls/hr IV . Q24H [facility] Rx#:[id number] Intake, IV Titration 100 Amount Labetalol 100 mg In 100 Sodium Chloride 0.9% 80 ml @ 2 MG/MIN 120 mls/hr IV .Q50M [facility] Rx#: [id number] Oral 490 350 Output: Urine 425 200 Other: Voiding Method Bedside Commode Bedside Commode Urinal Urinal Urinal # Voids 1 1 1 # Bowel Movements 1 - Exam General appearance: average body habitus, cooperative, disheveled - EENT Eyes: anicteric sclerae, PERRLA - Respiratory Respiratory: bilateral: CTA, diminished - Cardiovascular Rhythm: regular Abnormal Heart Sounds: systolic murmur - Gastrointestinal General gastrointestinal: soft - Integumentary Integumentary: decreased turgor, normal - Psychiatric alert and oriented 3 - Labs CBC & Chem 7: 12/24/17 08:33 12/24/17 04:35 Labs: Abnormal Lab Results - Last 24 Hours (Table) 12/19/17 12/24/17 12/24/17 Range/Units 04:52 04:35 04:35 RBC 2.65 L (4.30-5.90) m/uL Hgb 8.3 L (13.0-17.5) gm/dL Hct 26.9 L (39.0-53.0) % MCV 101.7 H (80.0-100.0) fL MCHC 30.7 L (31.0-37.0) g/dL Plt Count 106 L (150-450) k/uL Lymphocytes # 0.8 L (1.0-4.8) k/uL BUN 49 H (9-20) mg/dL Creatinine 10.21 H* (0.66-1.25) mg/dL Glucose 100 H (74-99) mg/dL Phosphorus 7.4 H (2.5-4.5) mg/dL Total Protein 5.1 L (6.3-8.2) g/dL Albumin 3.0 L (3.5-5.0) g/dL Plasma Free Metaneph 77 H (< OR = 57) pg/mL Plasma Free Normeta 188 H (< OR = 148) pg/mL Pls Totl Free Metaneph 265 H (< OR = 205) pg/mL 12/24/17 Range/Units 08:33 RBC 2.67 L (4.30-5.90) m/uL Hgb 8.9 L (13.0-17.5) gm/dL Hct 26.6 L (39.0-53.0) % MCV (80.0-100.0) fL MCHC (31.0-37.0) g/dL Plt Count 118 L (150-450) k/uL Lymphocytes # 0.8 L (1.0-4.8) k/uL BUN (9-20) mg/dL Creatinine (0.66-1.25) mg/dL Glucose (74-99) mg/dL Phosphorus (2.5-4.5) mg/dL Total Protein (6.3-8.2) g/dL Albumin (3.5-5.0) g/dL Plasma Free Metaneph (< OR = 57) pg/mL Plasma Free Normeta (< OR = 148) pg/mL Pls Totl Free Metaneph (< OR = 205) pg/mL Microbiology - Last 24 Hours (Table) 12/21/17 13:18 Gram Stain - Final Sputum Sputum Culture - Final Ana albicans 12/18/17 14:56 Blood Culture - Preliminary Blood No Growth after 120 hours 12/18/17 13:45 Blood Culture - Preliminary Blood No Growth after 120 hours Assessment and Plan Plan: 1. Status epilepticus with known history of seizures after his CVA, prior history of thalamus infarct, in July 2017. Continue Keppra changed to oral , nephrology Dr. Viveros. Consult with Dr. Fraire finance professional. Obtain Keppra levels. 2. Hypertensive emergency, possibly secondary to uncontrolled pain from cervical stenosis with his underlying renovascular hypertension. 3. History of left thalamus stroke July 2017. 325 mg rectally or NG/ G- tube 4. CKD stage v for with respiratory acidosis secondary to seizures, end-stage renal disease on hemodialysis Saturday, one missed treatments, Dr. Berg on consult 5. Concern for alcohol withdrawals, patient currently is on CIWA protocol 6. Acute hypoxic respiratory failure secondary seizures to rule out overload from missed dialysis treatments, seizure activity Dr. Fraire is on consult. Patient has been successfully intubated on 12/18/2017 at 1300 hrs at the emergency room. Patient has been extubated. 7. End-stage renal disease and lactic acidosis on hemodialysis presenting with fluid overload secondary to noncompliance and missing 2 dialysis treatments. Patient is currently undergoing dialysis in the emergency center. Dr. Park is on consult. 8. Chronic cervical pain cervical stenosis Patient had pain management injections with Dr. Cohen in the past, last one 08/2017, has seen neurosurgeon in [facility], no current recommendation surgery, another [place], who advised high risk for failures to undergo cervical spine surgery. rx morphine iv prn while intubated, once stabilized with seizures, will add gabapentin 100 mg twice daily 9. Tobacco use and dependence and recently discharged on nicotine patch. Secondary to mentation from seizures and obtundation from that support, unknown status for tobacco use 10. Chronic thrombocytopenia. Monitor. 11. Insomnia, chronic sleep deprivation secondary to uncontrolled cervical stenosis pain, sleep denominational is important for seizure control as well. once extubated will readdress this issue. currently on propofol on vent 12. Acute respiratory acidosis with chronic combined respiratory/metabolic compensation 13. DVT prophylaxis. Lovenox. 13 GI prophylaxis. Protonix IV Discharge plan: Return home once day Prognosis guarded Impression and plan of care have been directed as dictated by the signing physician. Doretha Brumfield nurse practitioner acting as scribe for signing physician.
[2017-12-24] MEDS: Acetaminophen-Codeine 300-30mg TAB PO PRN (20:08)
[2017-12-24] MEDS: QUEtiapine 25 MG TAB PO SCH (20:09)
--- NOTE | 2017-12-24 22:30 | PN ---
PROGRESS NOTE Patient is seen for followup for end-stage renal disease. This morning he moved his arm while on dialysis and had an infiltration. The patient denies any other significant complaints. His blood pressure is much better controlled. EXAMINATION: This morning blood pressure was 140/88, heart rate 75 per minute. Patient is afebrile. HEART: S1, S2. LUNGS: Decreased breath sounds at bases. Abdomen is soft, nontender. Lower extremities show edema 2+ bilaterally. [employer] is grossly intact. LABS: Show sodium 141, potassium 4.1. Hemoglobin 8.9 g/dL. ASSESSMENT: 1. End-stage renal disease, on hemodialysis on a Saturday, , Saturday schedule. 2. Status post infiltration in the right arm. This occurred 2 hours into treatment and he was taken off. We will try dialysis again tomorrow. The arm has been rested and iced. 3. Uncontrolled hypertension ,currently improved, partly volume sensitive. Will give 1 dose of IV Lasix, as patient has good urine output. 4. Nephrolithiasis. Patient passed a kidney stone yesterday. 5. Hyperphosphatemia, maintained on phosphate binders. Phosphorus is better than 8.5 previously. He is maintained on Renvela. 6. Volume overload. The patient is advised regarding fluid restriction and we will dialyze him again tomorrow and try to increase ultrafiltration as tolerated. Continue with current antihypertensive regimen and will give Lasix x1. MMODL / IJN: [id number] /
--- NOTE | 2017-12-24 23:45 | P.PN ---
Subjective Progress Note Date: 12/24/17 This patient is a 47-year-old right-handed white male who was seen yesterday in neurology consultation for recurrent seizures. Patient was intubated at that time. He is on Keppra monotherapy for seizure prophylaxis. His Keppra level was therapeutic at 31.2 He is been maintained on Keppra 1000 mg IV piggyback every 12 hours. We will switch him to oral dosing on Keppra thousand milligrams by mouth twice a day. He was sent for a repeat computed tomography scan of the brain yesterday which was negative for any acute changes. The patient seems to be tolerating his extubation very well today in the ICU. His is at bedside and is been feeding him small amounts of food which she is tolerating very well. He is now doing much better in the ICU. He is following simple commands. His repeat Keppra level done yesterday came back therapeutic at 31.2. He has had no further seizure activity over the last 3 days. He seems to be making good progress. Chest x-ray continues to show right lower lobe pneumonia. He is on antibiotic therapy for this condition as well. Blood pressure also seems to be doing much better today. Patient seen today in the intensive care unit and is sitting up at bedside in a chair. He seems to be quite alert and oriented. He will have hemodialysis likely tomorrow. His Keppra level today came back therapeutic at 30.1. Patient is awaiting possible discharge tomorrow. He should continue on his current dose of Keppra. He has had no reported seizures in the ICU. We will continue close neurological follow -up with this patient with close monitoring for history of seizure disorder. Objective - Vital Signs Vital signs: Vital Signs Temp 97.9 F 12/24/17 08:00 Pulse 94 12/24/17 20:11 Resp 17 12/24/17 14:57 BP 162/80 12/24/17 14:57 Pulse Ox 98 12/24/17 09:00 Intake & Output 12/24/17 12/24/17 12/25/17 06:59 18:59 06:59 Intake Total 532.5 1065.0 637.5 Output Total 425 200 100 Balance 107.5 865.0 537.5 Intake: IV 182.5 105.0 37.5 Piperacillin-Tazobactam 3 62.5 25.0 37.5 .375 gm In Dextrose/Water 1 50ml.bag @ 12.5 mls/hr IVPB Q12H [facility] Rx#: [id number] Sodium Chloride 0.9% 1, 120 80 000 ml @ 20 mls/hr IV . Q24H [facility] Rx#:[id number] Oral 350 960 600 Output: Urine 425 200 100 Other: Voiding Method Bedside Commode Urinal Urinal # Voids 1 1 # Bowel Movements 1 - Exam Physical examination: PHYSICAL EXAMINATION: Patient is resting comfortably in bed. Patient is awake alert and oriented 3. He is sitting up in chair next to his bed. VITAL SIGNS: Blood pressure is [162/80]. Heart rate is [82]. Respiration is [17] . Temperature is [97.9]. HEENT: Head is atraumatic, neck is supple, there were no carotid bruits. CHEST: Lungs are clear to auscultation and percussion. CARDIAC: S1, S2 normal rate and rhythm. There is no murmur. ABDOMEN: Soft and nontender. Bowel sounds are present. EXTREMITIES: There is no pedal edema. Peripheral pulses are present. Neurological examination: Patient resting comfortably in bed. He is able to follow simple commands. He is alert and oriented 2. He is following simple commands. No focal weakness on examination. Deep tendon reflexes are 2+ and symmetric. Plantar responses flexor bilaterally. - Labs CBC & Chem 7: 12/24/17 08:33 12/24/17 04:35 Labs: Abnormal Lab Results - Last 24 Hours (Table) 12/24/17 12/24/17 12/24/17 Range/Units 04:35 04:35 08:33 RBC 2.65 L 2.67 L (4.30-5.90) m/uL Hgb 8.3 L 8.9 L (13.0-17.5) gm/dL Hct 26.9 L 26.6 L (39.0-53.0) % MCV 101.7 H (80.0-100.0) fL MCHC 30.7 L (31.0-37.0) g/dL Plt Count 106 L 118 L (150-450) k/uL Lymphocytes # 0.8 L 0.8 L (1.0-4.8) k/uL BUN 49 H (9-20) mg/dL Creatinine 10.21 H* (0.66-1.25) mg/dL Glucose 100 H (74-99) mg/dL Phosphorus 7.4 H (2.5-4.5) mg/dL Total Protein 5.1 L (6.3-8.2) g/dL Albumin 3.0 L (3.5-5.0) g/dL Microbiology - Last 24 Hours (Table) 12/18/17 14:56 Blood Culture - Final Blood No Growth after 144 hours 12/18/17 13:45 Blood Culture - Final Blood No Growth after 144 hours 12/21/17 13:18 Gram Stain - Final Sputum Sputum Culture - Final Ana albicans Assessment and Plan (1) Generalized complex partial epilepsy Current Visit: Yes Status: Acute Code(s): G40.209 - LOCAL-REL SYMPTC EPI W CMPLX PRT SEIZ,NOT NTRCT,W/O STAT EPI SNOMED Code(s): 427378208 (2) History of stroke Current Visit: Yes Status: Acute Code(s): Z86.73 - PRSNL HX OF TIA (TIA), AND CEREB INFRC W/O RESID DEFICITS SNOMED Code(s): 181250171 (3) Acute encephalopathy Current Visit: Yes Status: Acute Code(s): G93.40 - ENCEPHALOPATHY, UNSPECIFIED SNOMED Code(s): 2190650 (4) End stage renal disease on dialysis Current Visit: Yes Status: Acute Code(s): N18.6 - END STAGE RENAL DISEASE; Z99.2 - DEPENDENCE ON RENAL DIALYSIS SNOMED Code(s): 369305105 Plan: This patient is a 47-year-old male being evaluated for episode of status epilepticus. He continues on Keppra monotherapy and his recent Keppra blood level came back therapeutic at 30.1. We are recommending he be maintained on his current dose of Keppra. He has had no further seizures in the intensive care unit. We will continue to monitor his progress closely. Plan is to transfer him to medical floor when he is medically stable. His overall prognosis at this time remains fair. Patient is being considered for possible discharge home tomorrow. He should continue on his current dose of Keppra. We will continue to follow his progress closely in the intensive care unit. His overall prognosis at this time remains guarded.
[2017-12-25] MEDS: SODIUM BICARBONATE TAB 650 MG TAB PO SCH
[2017-12-25] MEDS: Acetaminophen-Codeine 300-30mg TAB PO PRN (03:40)
[2017-12-25] MEDS: PIPERACILLIN-TAZOBACTAM 3.375 GM in DEXTROSE/WATER 1 50ML.BAG IVPB SCH (05:50)
[2017-12-25] MEDS: IPRATROPIUM-ALBUTEROL 3 ML NEB INHALATION SCH ×2 (07:11→11:10)
[2017-12-25 07:27] VITALS: BP 169/86; RESP 20; TEMP 98
[2017-12-25] MEDS: LABETALOL 100 MG in SODIUM CHLORIDE 0.9% 80 ML IV SCH ×7 (07:57→08:22)
[2017-12-25] MEDS: NICOTINE 14MG/24HR PATCH TRANSDERM SCH (08:05)
[2017-12-25] MEDS: PANTOPRAZOLE 40 MG TABLET PO SCH (08:06)
[2017-12-25] MEDS: cloNIDine HCL 0.1 MG TAB PO SCH (08:06)
[2017-12-25] MEDS: GABAPENTIN 100 MG CAP PO SCH (08:06)
[2017-12-25] MEDS: ASPIRIN 325 MG TAB PO SCH (08:06)
[2017-12-25] MEDS: levETIRAcetam 500 MG TAB PO SCH (08:07)
[2017-12-25] MEDS: ATORVASTATIN 20 MG TAB PO SCH (08:07)
[2017-12-25] MEDS: SEVELAMER 800 MG TAB PO SCH ×2 (08:07→12:10)
[2017-12-25] MEDS: SPIRONOLACTONE 25 MG TAB PO SCH (08:07)
[2017-12-25] MEDS: amLODIPine 5 MG TAB PO SCH (08:08)
[2017-12-25] MEDS: LABETALOL 200 MG TAB PO SCH (08:08)
[2017-12-25] MEDS: hydrALAZINE HCL 50 MG TAB PO SCH (08:08)
[2017-12-25] MEDS: ENOXAPARIN 30 MG/0.3 ML SYRINGE SQ SCH (08:09)
[2017-12-25] MEDS: CALCIUM ACETATE 667 MG CAP PO SCH ×2 (08:09→12:11)
[2017-12-25] MEDS: CLOTRIMAZOLE TROCHE 10 MG TROCHE MUCOUS MEM SCH ×2 (08:09→12:11)
[2017-12-25] MEDS: LISINOPRIL 20 MG TAB PO SCH (08:09)
[2017-12-25] MEDS: FUROSEMIDE 10 MG/ML 10 ML VIAL IV SCH (08:10)
[2017-12-25] MEDS: SENNOSIDES-DOCUSATE SODIUM 1 EACH TAB PO SCH (08:15)
[2017-12-25] MEDS ORDERED: cloNIDine 0.2 MG/24HR PATCH 1 PATCH PATCH TRANSDERM SCH (09:00)
[2017-12-25] MEDS: SODIUM CHLORIDE 0.9% 1,000 ML IV SCH (10:57)
[2017-12-25 11:13] VITALS: PULSE 80
--- NOTE | 2017-12-25 11:54 | P.PN ---
Subjective Progress Note Date: 12/25/17 Principal diagnosis: Status epilepticus, hypoxemic and hypercapnic respiratory failure, resolved, hypertensive urgency Jose is a 47-year-old white male patient that was brought to the emergency department by EMS on 12/18/2017 at 0457 in the morning for complaints of generalized tonic-clonic seizures. Patient's family had called 911, patient was reportedly postictal, with altered mentation, very combative, fighting with the residential builder. Patient's has reportedly told the ER staff that the patient had not been feeling good for last couple of days, and missed his dialysis on Saturday. Patient is known to have ESRD on hemodialysis, and his usual days are Tuesdays and Saturdays. Per , patient did have his usual Saturday hemodialysis. It is unknown as to what type of symptoms he was having when he was not feeling good. In the emergency room patient had 4 more episodes of grand mal seizures lasting 1-2 minutes. He was given the loading dose of IV Keppra up thousand milligrams. He does have an underlying seizure disorder, he is on maintenance Keppra 750 mg twice a day, is unclear at this time if the patient is compliant with his medications. He was previously hospitalized in July for status epilepticus, acute hypoxic respiratory failure secondary to pulmonary edema, requiring intubation and mechanical ventilation. During that admission patient was found to have a thalamic infarct. CT head on 12/18/2017 showed no acute intracranial hemorrhage or mass effect. There was a hypodense focus within the left thalamus likely indicating a lacunar infarct, age indeterminate. This finding was felt to be chronic and present on the previous exam on 07/22/2017, although not as well delineated. Patient's twelve-lead EKG showed sinus tachycardia with a rate of 123 BPM. Chest x-ray showed chronic changes without any acute cardiopulmonary process. We were consulted in regards to patient's altered mentation and the possibility of requiring intubation and mechanical ventilation in regards to his post ictal status and inability to protect his airway. Upon my evaluation, patient was seen in the emergency room, resting on the gurney, unresponsive to verbal or painful stimuli. Initially he was breathing spontaneously, the head of the bed was elevated for aspiration precautions. He was given a few rounds of lorazepam IV push for seizure activity earlier in the day. Patient was noted to be very hypertensive, his systolic blood pressures have been ranging in the 192-235 mm/Hg, and his diastolic has been ranging from 100-138 mmHg. his pulse ox was 95 on 4 L per nasal cannula, patient does not have an gag reflex, some oral secretions were suctioned out of his oropharynx. Shortly afterward patient became apneic, started seizing, patient was ventilated per Ambu bag, and emergently intubated by the ER physician. We will put him on vent settings of assist control with a rate of 12, tidal vital 400, FiO2 of 100% and the PEEP of 5. Patient was seen in consultation by nephrology, who is planning on dialyzing the patient today and tomorrow. They had also made recommendations for blood pressure control. Patient will be transferred to the intensive care once a bed is available. Patient was reevaluated today on 12/19/2017, remains on mechanical ventilation, sedated, patient is heading down shortly for a CT of the head, and considering the patient is having significant drainage from the nasogastric tube, recommended a CT of the abdomen and pelvis to be done at the same time. In the meantime the patient remains sedated, in no distress, no seizure activity overnight. His vent settings are basically the same however his FiO2 is down to 50%. CBC showed WBC count of 7.3 hemoglobin is 9.5. ABG showed a pO2 of 81 pCO2 of 52 pH of 7.47. Patient was dialyzed yesterday, and he is going to be dialyzed again today. His BUN is 57 creatinine is 9.33. Patient was reevaluated today on 12/20/2017, no seizure activity over the last 2 days since he was admitted to the ICU. Patient remains on mechanical ventilation, intubated, I went ahead and took him off propofol, and awakened the patient, gave the patient a short weaning trial on pressure support and CPAP , evaluated his weaning parameters, reviewed his chest x-ray which continues to show some right lower lobe pneumonia, neurologically the patient was noted to be intact, reviewed all his labs including his ABG showing pO2 of 76 pCO2 of 49 pH of 7.39. CBC showing a hemoglobin of 8. for otherwise unremarkable. Basic metabolic profile is also normal. Hence I proceeded to giving the patient a short weaning trial on pressure support and CPAP, and I was at bedside all along , within 20 minutes of being on pressure support and CPAP, went ahead and recommended extubating the patient. Patient was reevaluated today on 12/21/2017, extubated yesterday, tolerated the extubation quite well. No seizure activity over the last couple of days since he was admitted to the ICU. Chest x-ray continues to show by basilar infiltrates consistent with aspiration pneumonia related to his status epilepticus. Patient is scheduled for hemodialysis today, he remains on antibiotics for presumptive aspiration pneumonia, and we'll plan to transfer the patient out of the ICU to a monitor bed on selective today. Labs were reviewed including his CBC, and his basic metabolic profile. BUN is 45 creatinine is 8.90. Being followed by nephrology. Reevaluated today on 12/22/2017, patient continues to do well off mechanical ventilation for the last 2 days. No seizure activities, continues to have a picture of aspiration pneumonia as noted on the chest x-ray today.patient remains on antibiotics. Blood pressure seems to be better controlled he is now on oral labetalol and on multiple meds to control the blood pressure. Patient is relatively asymptomatic, alert oriented 3, denies any specific complaints, is at bedside. Progress note dated 12/23/2017 This is a 47-year-old male who was admitted on December 18 because of seizures and hypertensive emergency. Currently, his blood pressure has been difficult to control. He is currently on IV labetalol as well as an number of other blood pressure medications being managed primarily by nephrology. His IV is saline at 20 mL an hour and his oxygen is at 2 L cannula. He otherwise is stable. Resting comfortably. No particular complaints. My partner believes that the patient sustained a episode of aspiration pneumonia and is on antibiotics for that. Progress note dated 12/24/2017 This is a 47-year-old male who was admitted back on December 18 because of seizures and hypertensive emergency. Yesterday, his blood pressure was difficult to control and he was on IV labetalol as well as a number of other medications. Currently his blood pressures much better control. The patient's only receiving O2 at 2 L. He did receive hemodialysis today and 1 L was removed. The patient is using IV labetalol only when necessary now. Other than that, the patient's doing very well. Is being treated for aspiration pneumonia with antibiotics. Likely the patient could be transferred out of the ICU. His blood pressure medications are primarily being managed by nephrology. On 12/25/2017 patient seen again in follow-up on medical surgical floor. Doing very well, he is awake, alert, responds appropriately. In no acute distress. No further episodes of seizure activity. Patient is undergoing hemodialysis for his end-stage renal disease. His blood pressure is much better controlled. His systolic blood pressure is ranging from 140-1 60 mmHg, and his diastolic is in the 80s on his of mercury. He is on room air, with O2 sat in the 100%. He is afebrile. His lung sounds are positive for good air entry bilaterally, with some bibasilar rales. Patient has been ambulating in the room, tolerating activity well. Anticipate discharge home today. From our standpoint patient is stable for discharge home. Objective - Vital Signs Vital signs: Vital Signs Temp 98 F 12/25/17 07:00 Pulse 80 12/25/17 11:22 Resp 20 12/25/17 08:00 BP 169/86 12/25/17 07:00 Pulse Ox 100 12/25/17 07:00 Intake & Output 12/24/17 12/25/17 12/25/17 18:59 06:59 18:59 Intake Total 1065.0 1427.5 240 Output Total 200 100 Balance 865.0 1327.5 240 Intake: IV 105.0 37.5 Piperacillin-Tazobactam 3 25.0 37.5 .375 gm In Dextrose/Water 1 50ml.bag @ 12.5 mls/hr IVPB Q12H KRISTY Rx#: [id number] Sodium Chloride 0.9% 1, 80 000 ml @ 20 mls/hr IV . Q24H KRISTY Rx#:[id number] Oral 960 1390 240 Output: Urine 200 100 Other: Voiding Method Urinal Toilet Toilet # Voids 1 1 # Bowel Movements 1 - Exam No acute distress, oriented 3. HEENT examination is grossly unremarkable. Mucous membranes are moist. No oral lesions. Neck supple. Full range of motion. No adenopathy thyromegaly or neck vein distention. Cardiovascular examination reveals regular rhythm rate. S1-S2 normal. No S3 or S4. No discernible murmur noted. Lungs reveal clear breath sounds. Her sounds are equal bilaterally. A few bibasilar crackles Abdomen soft bowel sounds are heard. No masses or tenderness. Extremities are intact. No cyanosis clubbing or edema. Skin is without rash or lesion. Neurologic examination is brief but nonfocal. - Labs CBC & Chem 7: 12/24/17 08:33 12/24/17 04:35 Labs: Microbiology - Last 24 Hours (Table) 12/18/17 14:56 Blood Culture - Final Blood No Growth after 144 hours 12/18/17 13:45 Blood Culture - Final Blood No Growth after 144 hours 12/21/17 13:18 Gram Stain - Final Sputum Sputum Culture - Final Ana albicans Assessment and Plan Plan: assessment: #1. Status epilepticus, in a patient with history of seizure disorder, and history of thalamic infarct first diagnosed in July 2017. Exact etiology of breakthrough seizures is unknown, patient is on a maintenance Keppra 750 mg twice a day. #2. Acute metabolic encephalopathy, resolved #3. Acute hypoxic and hypercapnic respiratory failure and very to altered mental status, related to prolonged postictal period after multiple breakthrough seizures. Patient was unable to protect his airway, became apneic , requiring emergent intubation and placement on mechanical ventilation, patient has been successfully extubated, and has been tolerating extubation very well. Currently is on room air, and is negative for any respiratory difficulty #4. Evidence of right lower lobe infiltrate, possibly aspiration pneumonia #5. 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 Missed his regular hemodialysis yesterday. His usual HD days are Saturday, , Saturday #6. history of lacunar stroke #7. Hypertension with chronic kidney disease, currently poorly controlled #8. History of poor medical compliance #9. chronic back pain with degenerative disc disease and stenosis #10. History of chronic nephrolithiasis #11. Nicotine dependence, ongoing Plan We will switch patient's IV antibiotics to oral Augmentin. His blood, sputum cultures are negative thus far, other than Ana albicans. Patient's vital signs are stable, his blood pressure is much better controlled. He is negative for any respiratory difficulty. He is on room air, he has been up ambulating. He has been getting his regular hemodialysis as scheduled. He is stable for discharge home from pulmonary standpoint. He will need follow-up with Dr. Malone in the office in one week. I performed a history & physical examination of the patient and discussed their management with my nurse practitioner, Kerry Magno. I reviewed the nurse practitioner's note and agree with the documented findings and plan of care. Lung sounds are positive for a few bibasilar crackles. The findings and the impression was discussed with the patient. I attest to the documentation by the nurse practitioner. Time with Patient: Less than 30
[2017-12-25] MEDS: OXYMETAZOLINE 0.05% NASL SPRAY 1 SPRAY BOTTLE NASAL SCH ×4 (12:10→12:16)
[2017-12-25] MEDS: THIAMINE 100 MG TAB PO SCH (12:11)
--- NOTE | 2017-12-25 14:29 | P.DS ---
Providers Date of admission: 12/18/17 07:32 Expected date of discharge: 12/25/17 Attending physician: Jacqueline English Consults: 12/18/17 07:15 Consult Physician Routine Consulting Provider: Rick Park Consult Reason/Comments: dialysis patient. Do you want consulting provider notified?: Yes Consult Physician Routine Consulting Provider: Manuel Viveros Consult Reason/Comments: seizure patient. Do you want consulting provider notified?: Yes 12/18/17 12:52 Consult Physician Stat Consulting Provider: Rick Park Consult Reason/Comments: acute on chronic renal failure Do you want consulting provider notified?: Yes 12/18/17 13:31 Consult Physician Stat Consulting Provider: Ady Fraire Consult Reason/Comments: critical care management Do you want consulting provider notified?: Already Contacted Primary care physician: Jaylen Holguin [facility] Course: This is a 47-year-old male patient of Dr. Jaylen Madrid past medical history of end-stage renal disease on hemodialysis 3 times weekly, hypertension, seizure disorder. Patient had on July 06-2016 for TIA and was emergency room at that time for emergency center for post ictal state and hypertensive emergency by EMS with seizure activityand was seen in consultation by Dr. Viveros. . He was again sent into the emergency room on 12/18/2017 secondary to prolonged post ictal status, there is concern for at the emergency room with active state of alcohol withdrawal. patient normally goes for hemodialysis Saturday, however he missed his scheduled dialysis yesterday Saturday. Compliance medications are unknown, urine drug screen not done, alcohol level less than 10 Patient comes in with significant elevated blood pressure systolic of 257/126 highest blood pressure along with agitation tremors, he had while being detained at the emergency room waiting for ICU bed patient had 6 seizures in the emergency room despite Ativan IV pushes, he had to be prophylactically intubated secondary to status epilepticus, and required Ativan drip secondary to uncontrolled seizures despite Ativan CIWA protocol. Patient currently is on IV Keppra 1 g, propofol, and would be sent to ICU, Dr. Park on consult, and Dr. Malone on consult. According to ER nurses, patient has a large emesis while being intubated Patient patient was febrile upon ER admission, flu test was requested, patient was given labetalol 40 mg IV,, for the elevated heart rate of 150, Catapres patch 0.2 and hydralazine 10 mg every 4 hours. Shahrzad spoken to the for additional info, he has baseline control of bp however it gets this high with sbp over 200 if pain from cervical stenosis is not under control, he has seen 2 neurosugeon for cervical stenosis and has adviced that surgery will increase risk of surgical failures and recommended water physiotherapy. last ILS cervical area was with dr cohen in 08/2107. he takes tylenol 3 sparingly, he had an original rx in 07/2017 which hasn't been used up on its entirety. denies any alcohol dependency, not even a closet drinker. During his last admission in July 2017 for seizures and hypertensive urgency, he had an evolving thalamic infarct, in July 2017, imaging studies included There was concern for cervical spondylosis cervcial stenosis and recommended MRI of the cervical spine and orthopedic consult. Carotid duplex showed no stenosis. Echocardiogram revealed EF of 55-60%, no pulmonary hypertension, moderate concentric left hypertrophy, trace mitral regurgitation, trace tricuspid regurgitation. EEG of the brain showed moderate encephalopathy with no epileptiform waves l 2: Repeat chest x-ray shows interval retraction of the endotracheal tube, now appropriately placed in stable positioning of the enteric tube. Redemonstration of central vascular congestion and bibasilar opacities favored to represent atelectasis although pneumonia is also possible. Patient has intensive care management with Dr. Fraire, Dr. Park is following from nephrology and Dr. Viveros from neurology. EEG pending. Repeat CAT scan of brain is negative for acute findings. Patient remains intubated and on mechanical ventilation. His sedation is currently off. Keppra level is pending. Patient has been off labetalol drip since 5 AM. CAT scan of the chest suggests gastritis, combination of consolidation or atelectasis suggested pneumonia not excluded. Correlate for fluid overload as there is mild diffuse anasarca. Small pericardial effusion. Prominent small bowel loops but no discrete transition point. Generalized ileus or enteritis is favored. Splenomegaly. Bladder wall thickening may be atrophy or cystitis. Chronic kidney disease with nonobstructive renal calculi. 2/: Patient was successfully extubated this morning. He is complaining of pain for which gabapentin 100 mg twice daily as been added. Patient also noted to have thrush for which Mycelex added. Hemoglobin is down 8.4, BUN 33 and creatinine 6.5. Repeat Keppra level is 31.2. Sputum culture in progress. Blood cultures are showing no growth 2. 12/21: patient remains in the intensive care unit. He has been stable. Patient will be transferred to [facility] care today and Norvasc will be resumed. He has maintained on IV Keppra per neurology. Patient is scheduled for hemodialysis today. Repeat chest x-ray shows cardiomegaly, vascular congestion , bibasilar airspace disease worse on the left than the right. Left-sided effusion. 12/22: Patient underwent hemodialysis yesterday. Patient is continued on Keppra per Dr. Viveros and has been switched over to oral at 1000 mg twice daily. Hemoglobin 8.1, BUN 29 creatinine 6.1. Patient developed severe hyper-tension last night with pressures of 203/110. Patient was on labetalol drip for about 4 hours and also received IV push 3 doses and also started on clonidine. Last nephrology to address blood pressure control. 12/23: Blood pressure has been on the higher side again nephrology will address blood pressure medications. He is to have hemodialysis tomorrow. Keppra level is borderline low normal. Chromogranin a as 1938 which is high and consult placed with Dr. Covarrubias. 12/24: Blood pressure remains elevated for which hydralazine will be increased [address] Figueroa would like to keep the patient overnight and repeat dialysis tomorrow. We will plan on discharge tomorrow. Patient is still waiting for a bed out of ICU. 12/25: Patient has been transferred out of the intensive care unit. He is scheduled for hemodialysis today. Patient will be discharged home after this is completed. Discharge diagnoses: 1. Status epilepticus with known history of seizures after his CVA, prior history of thalamus infarct, in July 2017. 2. Hypertensive emergency, possibly secondary to uncontrolled pain from cervical stenosis with his underlying renovascular hypertension. 3. History of left thalamus stroke July 2017. 4. End-stage renal disease with respiratory acidosis secondary to seizures, on hemodialysis 5. Concern for alcohol withdrawals, ruled out 6. Acute hypoxic respiratory failure secondary seizures 7. End-stage renal disease and lactic acidosis on hemodialysis presenting with fluid overload secondary to noncompliance and missing 2 dialysis treatments. 8. Chronic cervical pain cervical stenosis 9. Tobacco use and dependence 10. Chronic thrombocytopenia. 11. Insomnia 12. Acute respiratory acidosis with chronic combined respiratory/metabolic compensation Discharge plan: Return home Impression and plan of care have been directed as dictated by the signing physician. Doretha Brumfield nurse practitioner acting as scribe for signing physician. Patient Condition at Discharge: Good Plan - Discharge Summary Discharge Rx Participant: No New Discharge Prescriptions: New Acetaminophen-Codeine 300-30mg [Tylenol w/codeine #3] 1 each PO Q8H PRN #60 tab PRN Reason: Pain Amoxic-Pot Clav 500-125 mg [Augmentin 500-125 mg] 1 each PO BID #10 tab Clotrimazole Alejandro [Mycelex Alejandro] 10 mg MUCOUS MEM QID #20 alejandro Gabapentin [Neurontin] 100 mg PO BID #60 cap hydrALAZINE HCL [Apresoline] 150 mg PO TID #270 tab Labetalol [Trandate] 400 mg PO BID #120 tab levETIRAcetam [Keppra] 1,000 mg PO Q12HR #120 tab Nicotine 14Mg/24Hr Patch [Habitrol] 1 patch TRANSDERM DAILY #30 patch Sennosides-Docusate Sodium [Senokot-S] 2 each PO DAILY tab Spironolactone [Aldactone] 50 mg PO DAILY #60 tab Ipratropium-Albuterol Nebulize [Duoneb 0.5 mg-3 mg/3 ml Soln] 3 ml INHALATION RT-QID #120 ampul.neb Continue Sodium Bicarbonate Tab 650 mg PO BID Calcium Acetate [PhosLo] 667 mg PO TID-W/MEALS Lisinopril [Zestril] 20 mg PO BID Ergocalciferol (Vitamin D2) [Vitamin D2] 50,000 unit PO Q30D Methocarbamol [Robaxin] 750 mg PO TID amLODIPine [Norvasc] 5 mg PO BID tab Melatonin 5 mg PO HS tab QUEtiapine [SEROquel] 25 mg PO HS #30 tab Sevelamer [Renvela] 1,600 mg PO TID-W/MEALS #0 tab Aspirin 325 mg PO DAILY #30 tab Atorvastatin [Lipitor] 20 mg PO DAILY #30 tablet Changed cloNIDine HCL 0.3 mg PO TID #0 Discontinued hydrALAZINE HCL [Apresoline] 50 mg PO BID #60 tab levETIRAcetam [Keppra] 750 mg PO Q12HR #60 tab Discharge Medication List Calcium Acetate [PhosLo] 667 mg PO TID-W/MEALS 11/22/16 [History] Sodium Bicarbonate Tab 650 mg PO BID 11/22/16 [History] Lisinopril [Zestril] 20 mg PO BID 06/14/17 [History] Ergocalciferol (Vitamin D2) [Vitamin D2] 50,000 unit PO Q30D 07/21/17 [History] Methocarbamol [Robaxin] 750 mg PO TID 07/22/17 [History] Aspirin 325 mg PO DAILY #30 tab 07/27/17 [Rx] Atorvastatin [Lipitor] 20 mg PO DAILY #30 tablet 07/27/17 [Rx] Melatonin 5 mg PO HS tab 07/27/17 [Rx] QUEtiapine [SEROquel] 25 mg PO HS #30 tab 07/27/17 [Rx] Sevelamer [Renvela] 1,600 mg PO TID-W/MEALS #0 tab 07/27/17 [Rx] amLODIPine [Norvasc] 5 mg PO BID tab 07/27/17 [Rx] Acetaminophen-Codeine 300-30mg [Tylenol w/codeine #3] 1 each PO Q8H PRN #60 tab 12/25/17 [Rx] Amoxic-Pot Clav 500-125 mg [Augmentin 500-125 mg] 1 each PO BID #10 tab [Rx] Clotrimazole Alejandro [Mycelex Alejandro] 10 mg MUCOUS MEM QID #20 alejandro 12/25/17 [ Rx] Gabapentin [Neurontin] 100 mg PO BID #60 cap 12/25/17 [Rx] Ipratropium-Albuterol Nebulize [Duoneb 0.5 mg-3 mg/3 ml Soln] 3 ml INHALATION RT -QID #120 ampul.neb 12/25/17 [Rx] Labetalol [Trandate] 400 mg PO BID #120 tab 12/25/17 [Rx] Nicotine 14Mg/24Hr Patch [Habitrol] 1 patch TRANSDERM DAILY #30 patch 12/25/17 [ Rx] Sennosides-Docusate Sodium [Senokot-S] 2 each PO DAILY tab 12/25/17 [Rx] Spironolactone [Aldactone] 50 mg PO DAILY #60 tab 12/25/17 [Rx] cloNIDine HCL 0.3 mg PO TID #0 12/25/17 [Rx] hydrALAZINE HCL [Apresoline] 150 mg PO TID #270 tab 12/25/17 [Rx] levETIRAcetam [Keppra] 1,000 mg PO Q12HR #120 tab 12/25/17 [Rx] Follow up Appointment(s)/Referral(s): Ady Fraire MD [STAFF PHYSICIAN] - 1 Week Jaylen Holguin MD [Primary Care Provider] - 1 Week Discharge Disposition: HOME SELF-CARE
[2017-12-25] MEDS ORDERED: MORPHINE ORAL SOLN 10 MG/5 ML CUP PO PRN (16:07)
[2017-12-25] MEDS ORDERED: AMOXIC-POT CLAV 500-125 MG 1 EACH TAB PO SCH (21:00)
== END 2017-12-25 16:10 | disposition home or self-care (01) | DRG 100 ==
LOC: EC 04:57 → 6SEL 07:32 → 6ICU 13:32 → 5MS5E 12-24 21:29
PROVIDERS: ADMIT Family Medicine; ATTEND Family Medicine
PROC: 5A1D70Z Performance of Urinary Filtration, Intermittent, Less than 6 Hours Per Day (ICD-10-PCS; principal; 2017-12-18)
PROC: 5A1945Z Respiratory Ventilation, 24-96 Consecutive Hours (ICD-10-PCS; 2017-12-18)
PROC: 0BH17EZ Insertion of Endotracheal Airway into Trachea, Via Natural or Artificial Opening (ICD-10-PCS; 2017-12-18)
DX: G40.201 Localization-related (focal) (partial) symptomatic epilepsy and epileptic syndromes with complex partial seizures, not intractable, with status epilepticus (principal); N18.6 End stage renal disease; J69.0 Pneumonitis due to inhalation of food and vomit; G93.41 Metabolic encephalopathy; J96.01 Acute respiratory failure with hypoxia; J96.02 Acute respiratory failure with hypercapnia; N17.9 Acute kidney failure, unspecified; E87.2 Acidosis; D69.6 Thrombocytopenia, unspecified; I12.0 Hypertensive chronic kidney disease with stage 5 chronic kidney disease or end stage renal disease; I31.3 Pericardial effusion (noninflammatory); K56.7 Ileus, unspecified; I16.1 Hypertensive emergency; E87.70 Fluid overload, unspecified; I08.1 Rheumatic disorders of both mitral and tricuspid valves; M48.02 Spinal stenosis, cervical region; Y90.0 Blood alcohol level of less than 20 mg/100 ml; G47.00 Insomnia, unspecified; F17.200 Nicotine dependence, unspecified, uncomplicated; E78.5 Hyperlipidemia, unspecified; J44.9 Chronic obstructive pulmonary disease, unspecified; G89.29 Other chronic pain; M47.9 Spondylosis, unspecified; K52.9 Noninfective gastroenteritis and colitis, unspecified; R16.1 Splenomegaly, not elsewhere classified; B37.9 Candidiasis, unspecified; M89.9 Disorder of bone, unspecified; D63.1 Anemia in chronic kidney disease; R00.0 Tachycardia, unspecified; E83.39 Other disorders of phosphorus metabolism; Z86.73 Personal history of transient ischemic attack (TIA), and cerebral infarction without residual deficits; Z99.2 Dependence on renal dialysis; Z91.15 Patient's noncompliance with renal dialysis; Z79.899 Other long term (current) drug therapy; Z79.82 Long term (current) use of aspirin; Z82.3 Family history of stroke; Z87.01 Personal history of pneumonia (recurrent); Z87.442 Personal history of urinary calculi; Z80.7 Family history of other malignant neoplasms of lymphoid, hematopoietic and related tissues
CPT/HCPCS: 36415; 36600; 51702; 70450; 71045; 74018; 74176; 80048; 80053; 80177; 80306; 80320; 81001; 82365; 82805; 83036; 83735; 83835; 84100; 84443; 84480; 85025; 86316; 87040; 87070; 87205; 87502; 90935; 93005; 94002; 94003; 94640; 95816; 96365; 96366; 96368; 96375; 96376; 99285

== ENCOUNTER 2018-01-24 00:50 | Inpatient (IN) | payer MEDICARE, BC ==
[2018-01-24] MEDS ORDERED: ACETAMINOPHEN IV (For NPO) 1,000 MG in EMPTY BAG 1 BAG IVPB STA (01:02)
[2018-01-24] MEDS ORDERED: ALBUTEROL NEBULIZED 2.5 MG/3 ML INHALATION STA (01:02)
[2018-01-24] MEDS ORDERED: SODIUM CHLORIDE 0.9% 1,000 ML IV STA (01:02)
[2018-01-24] MEDS ORDERED: SODIUM CHLORIDE 0.9% 500 ML IV STA (01:02)
[2018-01-24] MEDS ORDERED: IPRATROPIUM 0.5 MG/2.5 ML NEBU INHALATION STA (01:02)
[2018-01-24 01:23] LABS: Albumin 3.3 g/dL (3.5-5.0); Magnesium 2.1 mg/dL (1.6-2.3); Potassium 4.6 mmol/L (3.5-5.1); Total Bilirubin 0.7 mg/dL (0.2-1.3)
[2018-01-24 01:27] LABS: INR 1.3 (<1.2); Partial Thromboplastin Time 28.3 sec (22.0-30.0); Prothrombin Time 11.9 sec (9.0-12.0)
[2018-01-24 01:32] LABS: Creatine Kinase 72 U/L (55-170)
[2018-01-24 01:33] LABS: Basophils # (A) 0.1 k/uL (0-0.2); Basophils % (A) 1 %; Eosinophils # (A) 0.1 k/uL (0-0.7); Eosinophils % (A) 1 %; HCT 25.6 % (39.0-53.0); HGB 8.7 gm/dL (13.0-17.5); Lymphocytes # (A) 0.9 k/uL (1.0-4.8); Lymphocytes % (A) 8 %; MCH 30.6 pg (25.0-35.0); Mean Platelet Volume 7.3; Monocytes # (A) 0.7 k/uL (0-1.0); Monocytes % (A) 7 %; Neutrophils # (A) 8.8 k/uL (1.3-7.7); Neutrophils % (A) 82 %; Poikilocytosis Slight; RBC 2.85 m/uL (4.30-5.90); RDW 15.7 % (11.5-15.5); WBC 10.7 k/uL (3.8-10.6)
[2018-01-24 01:34] LABS: MCV 90.1 fL (80.0-100.0)
[2018-01-24 01:35] LABS: Platelet Count 309 k/uL (150-450)
[2018-01-24 01:45] LABS: Creatine Kinase MB 0.3 ng/mL (0.0-2.4); Troponin I <0.012 ng/mL (0.000-0.034)
[2018-01-24] MEDS ORDERED: VANCOMYCIN IV PER PHARMACY 1 EACH MISC MISCELLANE PRN (02:00)
[2018-01-24] MEDS ORDERED: PIPERACILLIN-TAZOBACTAM 3.375 GM in DEXTROSE/WATER 1 50ML.BAG IVPB STA (02:00)
--- NOTE | 2018-01-24 02:00 | ED ---
General Adult HPI - General Chief complaint: Chest Pain Stated complaint: NICHOLAS,chest pain Time Seen by Provider: 01/24/18 00:56 Source: patient, EMS, RN notes reviewed, old records reviewed Mode of arrival: EMS Limitations: no limitations - History of Present Illness Initial comments: This is a 47-year-old male to the ER for evaluation of significant medical illness. Patient has history of medical illness. No recent sick contacts or travel history. Patient noticed fever today. Patient's plenty of shortness of breath for a few days with white separation today. Patient did miss dialysis today secondary to weather conditions. Patient denies chest pain. Denies any nausea vomiting or diarrhea. No recent hospitalizations - Related Data Home Medications Medication Instructions Recorded Confirmed Calcium Acetate [PhosLo] 667 mg PO TID-W/MEALS 11/22/16 01/13/18 Sodium Bicarbonate Tab 650 mg PO BID 11/22/16 01/13/18 Lisinopril [Zestril] 20 mg PO BID 06/14/17 01/13/18 Ergocalciferol (Vitamin D2) 50,000 unit PO Q30D 07/21/17 01/13/18 [Vitamin D2] Methocarbamol [Robaxin] 750 mg PO TID 07/22/17 01/13/18 cloNIDine HCL 0.3 mg PO TID PRN 01/13/18 01/13/18 Previous Rx's Medication Instructions Recorded Aspirin 325 mg PO DAILY #30 tab 07/27/17 Atorvastatin [Lipitor] 20 mg PO DAILY #30 tablet 07/27/17 Melatonin 5 mg PO HS tab 07/27/17 QUEtiapine [SEROquel] 25 mg PO HS #30 tab 07/27/17 Sevelamer [Renvela] 1,600 mg PO TID-W/MEALS #0 tab 07/27/17 amLODIPine [Norvasc] 5 mg PO BID tab 07/27/17 Acetaminophen-Codeine 300-30mg 1 each PO Q8H PRN #60 tab 12/25/17 [Tylenol w/codeine #3] Gabapentin [Neurontin] 100 mg PO BID #60 cap 12/25/17 Ipratropium-Albuterol Nebulize 3 ml INHALATION RT-QID #120 12/25/17 [Duoneb 0.5 mg-3 mg/3 ml Soln] ampul.neb Labetalol [Trandate] 400 mg PO BID #120 tab 12/25/17 Nicotine 14Mg/24Hr Patch [Habitrol] 1 patch TRANSDERM DAILY #30 patch 12/25/17 Spironolactone [Aldactone] 50 mg PO DAILY #60 tab 12/25/17 levETIRAcetam [Keppra] 1,000 mg PO Q12HR #120 tab 12/25/17 Allergies Allergy/AdvReac Type Severity Reaction Status Date / Time No Known Allergies Allergy Verified 01/13/18 09:11 Review of Systems ROS Statement: Those systems with pertinent positive or pertinent negative responses have been documented in the HPI. ROS Other: All systems not noted in ROS Statement are negative. Past Medical History Past Medical History: Hypertension, Musculoskeletal Disorder, Renal Disease, Seizure Disorder Additional Past Medical History / Comment(s): End-stage renal disease on hemodialysis History of Any Multi-Drug Resistant Organisms: None Reported Past Surgical History: Orthopedic Surgery Additional Past Surgical History / Comment(s): fistula for dialysis lithotripsy kidney stents Past Anesthesia/Blood Transfusion Reactions: No Reported Reaction Past Psychological History: No Psychological Hx Reported Smoking Status: Current every day smoker Past Alcohol Use History: None Reported Past Drug Use History: None Reported - Past Family History Father Family Medical History: Cancer, CVA/TIA Additional Family Medical History / Comment(s): Father had lymphoma. He had a CVA Mother Family Medical History: CVA/TIA Additional Family Medical History / Comment(s): Mother had a CVA. General Exam Limitations: no limitations General appearance: alert, anxious, in distress Head exam: Present: atraumatic, normocephalic, normal inspection Eye exam: Present: normal appearance, PERRL, EOMI. Absent: scleral icterus, conjunctival injection, periorbital swelling ENT exam: Present: normal exam, mucous membranes moist Neck exam: Present: normal inspection. Absent: tenderness, meningismus, lymphadenopathy Respiratory exam: Present: respiratory distress, accessory muscle use, decreased breath sounds (Diminished on the left), prolonged expiratory. Absent : rales, rhonchi, stridor Cardiovascular Exam: Present: regular rate, normal rhythm, normal heart sounds. Absent: systolic murmur, diastolic murmur, rubs, gallop, clicks GI/Abdominal exam: Present: soft, normal bowel sounds. Absent: distended, tenderness, guarding, rebound, rigid Extremities exam: Present: normal inspection, full ROM, normal capillary refill. Absent: tenderness, pedal edema, joint swelling, calf tenderness Back exam: Present: normal inspection Neurological exam: Present: alert, oriented X3, CN II-XII intact Psychiatric exam: Present: normal affect, normal mood Skin exam: Present: warm, dry, intact, normal color. Absent: rash Course Vital Signs 01/24/18 01/24/18 01/24/18 00:57 01:10 01:30 Temperature 101.1 F H Pulse Rate 82 84 84 Respiratory 20 Rate Blood Pressure 124/80 O2 Sat by Pulse 82 L Oximetry 01/24/18 01/24/18 01/24/18 01:44 01:50 02:16 Temperature Pulse Rate 88 91 Respiratory 20 18 Rate Blood Pressure 119/68 O2 Sat by Pulse 95 Oximetry 01/24/18 03:18 Temperature 99 F Pulse Rate 74 Respiratory 20 Rate Blood Pressure 121/74 O2 Sat by Pulse 94 L Oximetry - Reevaluation(s) Reevaluation #1: 01/24/18 03:26 Pulse ox is much improved after breathing treatment and 02 EKG Findings - EKG Comments: EKG Findings:: EKG shows normal sinus rhythm rate of 100, [place] 1:30, QRS 90, QTc 451 Medical Decision Making - Medical Decision Making Plan I male the ER for evaluation of shortness of breath, today fever. Positive pneumonia, significant pleural effusion on x-ray with fever. He admitted for further evaluation and treatment by pulmonology - Lab Data Result diagrams: 01/24/18 00:56 01/24/18 00:56 Lab Results 01/24/18 01/24/18 01/24/18 Range/Units 00:56 00:56 00:56 WBC 10.7 H (3.8-10.6) k/uL RBC 2.85 L (4.30-5.90) m/uL Hgb 8.7 L (13.0-17.5) gm/dL Hct 25.6 L (39.0-53.0) % MCV 90.1 D (80.0-100.0) fL MCH 30.6 (25.0-35.0) pg MCHC 34.0 (31.0-37.0) g/dL RDW 15.7 H (11.5-15.5) % Plt Count 309 D (150-450) k/uL Neutrophils % 82 % Lymphocytes % 8 % Monocytes % 7 % Eosinophils % 1 % Basophils % 1 % Neutrophils # 8.8 H (1.3-7.7) k/uL Lymphocytes # 0.9 L (1.0-4.8) k/uL Monocytes # 0.7 (0-1.0) k/uL Eosinophils # 0.1 (0-0.7) k/uL Basophils # 0.1 (0-0.2) k/uL Poikilocytosis Slight PT (9.0-12.0) sec INR (<1.2) APTT (22.0-30.0) sec Sodium 136 L (137-145) mmol/L Potassium 4.6 (3.5-5.1) mmol/L Chloride 89 L (98-107) mmol/L Carbon Dioxide 32 H (22-30) mmol/L Anion Gap 15 mmol/L BUN 40 H (9-20) mg/dL Creatinine 10.50 H* (0.66-1.25) mg/dL Est GFR (CKD-EPI)AfAm 6 (>60 ml/min/1.73 sqM) Est GFR (CKD-EPI)NonAf 5 (>60 ml/min/1.73 sqM) Glucose 110 H (74-99) mg/dL Calcium 9.0 (8.4-10.2) mg/dL Magnesium 2.1 (1.6-2.3) mg/dL Total Bilirubin 0.7 (0.2-1.3) mg/dL AST 15 L (17-59) U/L ALT 14 L (21-72) U/L Alkaline Phosphatase 47 (38-126) U/L Total Creatine Kinase 72 (55-170) U/L CK-MB (CK-2) 0.3 (0.0-2.4) ng/mL CK-MB (CK-2) Rel Index 0.4 Troponin I <0.012 (0.000-0.034) ng/mL NT-Pro-B Natriuret Pep pg/mL Total Protein 6.0 L (6.3-8.2) g/dL Albumin 3.3 L (3.5-5.0) g/dL Influenza Type A RNA (Not Detectd) Influenza Type B (PCR) (Not Detectd) 01/24/18 01/24/18 01/24/18 Range/Units 00:56 00:56 01:32 WBC (3.8-10.6) k/uL RBC (4.30-5.90) m/uL Hgb (13.0-17.5) gm/dL Hct (39.0-53.0) % MCV (80.0-100.0) fL MCH (25.0-35.0) pg MCHC (31.0-37.0) g/dL RDW (11.5-15.5) % Plt Count (150-450) k/uL Neutrophils % % Lymphocytes % % Monocytes % % Eosinophils % % Basophils % % Neutrophils # (1.3-7.7) k/uL Lymphocytes # (1.0-4.8) k/uL Monocytes # (0-1.0) k/uL Eosinophils # (0-0.7) k/uL Basophils # (0-0.2) k/uL Poikilocytosis PT 11.9 (9.0-12.0) sec INR 1.3 H (<1.2) APTT 28.3 (22.0-30.0) sec Sodium (137-145) mmol/L Potassium (3.5-5.1) mmol/L Chloride (98-107) mmol/L Carbon Dioxide (22-30) mmol/L Anion Gap mmol/L BUN (9-20) mg/dL Creatinine (0.66-1.25) mg/dL Est GFR (CKD-EPI)AfAm (>60 ml/min/1.73 sqM) Est GFR (CKD-EPI)NonAf (>60 ml/min/1.73 sqM) Glucose (74-99) mg/dL Calcium (8.4-10.2) mg/dL Magnesium (1.6-2.3) mg/dL Total Bilirubin (0.2-1.3) mg/dL AST (17-59) U/L ALT (21-72) U/L Alkaline Phosphatase (38-126) U/L Total Creatine Kinase (55-170) U/L CK-MB (CK-2) (0.0-2.4) ng/mL CK-MB (CK-2) Rel Index Troponin I (0.000-0.034) ng/mL NT-Pro-B Natriuret Pep 41276 pg/mL Total Protein (6.3-8.2) g/dL Albumin (3.5-5.0) g/dL Influenza Type A RNA Not Detected (Not Detectd) Influenza Type B (PCR) Not Detected (Not Detectd) - Radiology Data Radiology results: report reviewed (Chest x-ray shows significant left-sided pleural effusion, possible underlying pneumonia), image reviewed Disposition Clinical Impression: Chronic renal failure, End stage renal disease on dialysis, Chest pain, Community acquired pneumonia, Fever, Pleural effusion, left, Hypoxia Disposition: ADMITTED IP TO THIS HOSP Condition: Serious Referrals: Ady Fraire MD [Primary Care Provider] - 1-2 days
[2018-01-24] MEDS ORDERED: VANCOMYCIN 1,250 MG in SODIUM CHLORIDE 0.9% 250 ML IVPB STA (02:04)
--- NOTE | 2018-01-24 03:02 | XR ---
EXAMINATION TYPE: XR chest 2V DATE OF EXAM: 01/24/2018 COMPARISON: 01/13/2018 HISTORY: Chest pain TECHNIQUE: Frontal and lateral views of the chest are obtained. FINDINGS: Heart is enlarged. There is some pulmonary vascular congestion. There is consolidation and pleural fluid in the left lower lobe with 50% opacification of the left hemithorax. There are chest leads. IMPRESSION: There is increasing consolidation and pleural fluid on the left side compared to last ex am. There is clearing of small amount of pleural fluid on the right side since last exam. There is no overt heart failure.
[2018-01-24] MEDS ORDERED: LEVOFLOXACIN 750MG-D5W PMX 750 MG in DEXTROSE/WATER 1 150ML.BAG IVPB STA (03:23)
[2018-01-24] MEDS ORDERED: PNEUMONIA PROTOCOL UTILIZED 1 EACH MISC PO PRN (03:23)
[2018-01-24] MEDS ORDERED: LEVOFLOXACIN 750MG-D5W PMX 750 MG in DEXTROSE/WATER 1 150ML.BAG IVPB ONE (06:00)
[2018-01-24] MEDS ORDERED: VANCOMYCIN 1,250 MG in SODIUM CHLORIDE 0.9% 250 ML IVPB ONE (07:30)
[2018-01-24] MEDS: IPRATROPIUM-ALBUTEROL 3 ML NEB INHALATION SCH ×4 (08:19→19:56)
[2018-01-24] MEDS ORDERED: ENOXAPARIN 40 MG/0.4 ML SYRINGE SQ SCH (09:00)
[2018-01-24] MEDS ORDERED: IPRATROPIUM-ALBUTEROL 3 ML NEB INHALATION SCH (12:00)
[2018-01-24] MEDS: ASPIRIN 325 MG TAB PO SCH (12:33)
[2018-01-24] MEDS: NICOTINE 14MG/24HR PATCH TRANSDERM SCH ×2 (12:33→12:40)
[2018-01-24] MEDS: ATORVASTATIN 20 MG TAB PO SCH (12:33)
[2018-01-24] MEDS: SODIUM BICARBONATE TAB 650 MG TAB PO SCH ×2 (12:33→21:06)
[2018-01-24] MEDS: CALCIUM ACETATE 667 MG CAP PO SCH ×2 (12:34→16:22)
[2018-01-24] MEDS: SPIRONOLACTONE 25 MG TAB PO SCH (12:34)
[2018-01-24] MEDS ORDERED: LIDOCAINE 1% (PF) 10MG/ML VIAL MISCELLANE STA (13:49)
[2018-01-24] MEDS ORDERED: MORPHINE SULFATE 4 MG/ML SYRINGE IVP ONE (14:29)
--- NOTE | 2018-01-24 14:59 | XR ---
EXAMINATION TYPE: XR chest 1V portable DATE OF EXAM: 01/24/2018 COMPARISON: 01/24/2018 HISTORY: Post left thoracentesis TECHNIQUE: Single frontal view of the chest is obtained. FINDINGS: There are persistent left-sided consolidation and pleural effusion. No sizable pneumothora x. Heart is enlarged. Patchy infiltrate in the right with tiny effusion noted. IMPRESSION: 1. Cardiomegaly with left-sided infiltrate and small effusion. 2. Patchy infiltrate in the right with tiny effusion. 3. No sizable pneumothorax.
--- NOTE | 2018-01-24 16:15 | CONS ---
CONSULTATION REASON FOR CONSULT: End-stage renal disease. HISTORY OF PRESENT ILLNESS: Patient is a 47-year-old male who was admitted to the hospital with complaints of shortness of breath. He also had some chest pain. He had fever prior to admission. Denied any cough. The he missed his dialysis yesterday secondary to weather conditions. The patient however has been much more compliant as outpatient. He denied any nausea, vomiting, abdominal pain, or diarrhea. PAST MEDICAL HISTORY: End-stage renal disease, history of kidney stones, chronic headaches, osteoarthritis, CKD, mineral bone disorders, seizure disorder. PAST SURGICAL HISTORY: AV fistula. Previous ureteral stents. SOCIAL HISTORY: Positive for smoking. No history of drug abuse. MEDICATIONS: Prior to admission include PhosLo, sodium bicarb, Zestril, vitamin D2, Robaxin, clonidine, Lipitor, Seroquel, Renvela, Norvasc, Trandate, Aldactone, Keppra. ALLERGIES: None. EXAMINATION: Patient is currently comfortable. Awake. He is alert and oriented x3, not in any acute distress. Blood pressure is 128/71, heart rate 89 per minute. Patient is afebrile. Examination of the heart: S1, S2. Examination lungs: Bilateral breath sounds are heard. Abdomen is soft, nontender. Examination lower extremities shows no evidence of edema. [employer] exam is grossly intact. Patient moving all 4 extremities. LAB: Show sodium 136, potassium 4.6, chloride 89, BUN 40, serum creatinine 10.5, hemoglobin 8.7 g/dL, magnesium 2.1. Calcium 9.0. ASSESSMENT: 1. End-stage renal disease, on hemodialysis on a Saturday, , Saturday schedule. However, patient missed his treatment yesterday. We will dialyze him today and again tomorrow for his regular schedule. 2. Fluid overload. We will increase UF as tolerated with hemodialysis today. 3. Anemia of chronic disease. No active bleeding noted. 4. Seizure disorder. 5. CKD Mineral bone disorder. Check phosphorus levels. Continue home phosphate binders. 6. Possible pneumonia. PLAN: Hemodialysis today as well as in a.m. Maintain patient on Aranesp. Continue his PhosLo. Continue empiric Levaquin for now. Thank you for this consultation. We will continue to follow the patient with you during his hospitalization. MMODL / IJN: [id number] /
[2018-01-24] MEDS: DARBEPOETIN ALFA 40 MCG/0.4 ML SYRINGE SQ SCH (16:22)
[2018-01-24 17:32] LABS: Appearance,BF Hazy; Color,BF Yellow; Nucleated Cells, Body Fluid 1828 /uL; RBC, Body Fluid 790 /uL
[2018-01-24 17:33] LABS: Mononuclear WBC,Body Fluid 16 %; Polynuclear WBC,Body Fluid 84 %; Total Cells Counted,Body Fluid 100
--- NOTE | 2018-01-24 17:39 | P.CNPUL ---
History of Present Illness Consult date: 01/24/18 Reason for consult: dyspnea, pleural effusion History of present illness: 47-year-old male patient, presented to the hospital because of worsening shortness of breath. The patient has multiple medical problems and comorbidities. The patient was in the hospital back in and at that time the patient was in acute respiratory failure and aspiration pneumonia was suspected knowing that the patient was having generalized tonic-clonic seizures. The patient at that time presented to the hospital post ictal with altered mentation and he was combative. He was treated and he was stabilized. He was placed on antiepileptic medication. He is known also to have end-stage renal disease and he is on hemodialysis 3 times a week, TTS, and he has been very compliant and he has not missed any of his dialysis sessions. 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 Upon discharge, the patient was released home on Augmentin 875 mg 1 tablet by mouth twice a day. He was also receiving Keppra for his seizure activity. He was seen in our office on 01/13/2018 and the patient had a new infiltrate in the lingula and the left lower lobe and there was obvious improved aeration of the right lower lobe. Small bilateral pleural effusion was noted. Over the next 1-2 week, the patient's condition got worse and he came into the hospital yesterday with a large left-sided pleural effusion. He did spike a temperature earlier and currently is afebrile. His white cell count is not elevated at 10.7. Rest of the electrolytes are consistent with his renal failure knowing that the patient a BUN of 40 with a creatinine of 10.5 and his potassium level is at 4.6. Currently is on a combination of Zosyn and vancomycin. Based on this large left-sided pleural effusion, a pulmonary consultation was requested. I saw this patient. I did a side thoracentesis during which I removed a total of 1000 ML's of pleural fluid. I should be able to take more fluids yet the patient experienced increased pain and pleurisy along the left lung and I had to stop the procedure. I'm sure there is more fluid left within his left pleural space. A subsequent chest x-ray showed no evidence of any pneumothorax and there is some limited improvement in the aeration of the left lung with residual atelectasis/consolidation/effusion the left lung base. The pleural fluid was sent for analysis. Review of Systems Constitutional: Reports fever, Reports lethargy, Reports weakness Eyes: denies blurred vision, denies bulging eye, denies decreased vision Ears: deny: decreased hearing, ear discharge, earache Ears, nose, mouth and throat: Denies headache, Denies sore throat Cardiovascular: Reports decreased exercise tolerance, Reports dyspnea on exertion Respiratory: Reports dyspnea Gastrointestinal: Denies abdominal pain, Denies diarrhea, Denies nausea, Denies vomiting Genitourinary: Reports as per HPI Musculoskeletal: Reports low back pain, Reports neck pain Musculoskeletal: absent: ankle pain, ankle stiffness, ankle swelling Integumentary: Denies pruritus, Denies rash Neurological: Denies numbness, Denies weakness Psychiatric: Reports as per HPI Endocrine: Denies fatigue, Denies weight change Past Medical History Past Medical History: Hypertension, Musculoskeletal Disorder, Renal Disease, Seizure Disorder Additional Past Medical History / Comment(s): End-stage renal disease on hemodialysis , the patient claims to have sponge kidney which resulted in to renal failure and his been on dialysis through a AV fistula in the right upper extremity, hypertension, hyperlipidemia, seizure disorder, nephrolithiasis, history of CVA involving the left thalamus back in July 2017, spinal stenosis, chronic back pain, chronic cervical pain, chronic thrombocytopenia History of Any Multi-Drug Resistant Organisms: None Reported Past Surgical History: Orthopedic Surgery Additional Past Surgical History / Comment(s): Fistula involving the right upper extremity, previous cystoscopies and insertion of double-J catheters on renal stents, right ankle ORIF for fracture, colonoscopy Past Anesthesia/Blood Transfusion Reactions: No Reported Reaction Past Psychological History: No Psychological Hx Reported Additional Psychological History / Comment(s): Pt resides with his spouse of 17 yrs. He no longer drives d/t seizures. His spouse takes him to appts or his sister does. He is otherwise independent. His spouse states since his stroke, he is "more carmona". Smoking Status: Current every day smoker Past Alcohol Use History: None Reported Additional Past Alcohol Use History / Comment(s): Pt started smoking in 1984 and is in the process of cutting down to quit. Past Drug Use History: None Reported - Past Family History Father Family Medical History: Cancer, CVA/TIA Additional Family Medical History / Comment(s): Father had lymphoma. He had a CVA Mother Family Medical History: CVA/TIA Additional Family Medical History / Comment(s): Mother had a CVA. Medications and Allergies Home Medications Medication Instructions Recorded Confirmed Type Calcium Acetate [PhosLo] 667 mg PO TID-W/MEALS 11/22/16 01/24/18 History Sodium Bicarbonate Tab 650 mg PO BID 11/22/16 01/24/18 History Lisinopril [Zestril] 20 mg PO BID 06/14/17 01/24/18 History Ergocalciferol (Vitamin D2) 50,000 unit PO Q30D 07/21/17 01/24/18 History [Vitamin D2] Methocarbamol [Robaxin] 750 mg PO TID PRN 07/22/17 01/24/18 History Aspirin 325 mg PO DAILY #30 tab 07/27/17 01/24/18 Rx Atorvastatin [Lipitor] 20 mg PO DAILY #30 tablet 07/27/17 01/24/18 Rx Melatonin 5 mg PO HS tab 07/27/17 01/24/18 Rx QUEtiapine [SEROquel] 25 mg PO HS #30 tab 07/27/17 01/24/18 Rx Sevelamer [Renvela] 1,600 mg PO TID-W/MEALS #0 tab 07/27/17 01/24/18 Rx amLODIPine [Norvasc] 5 mg PO BID tab 07/27/17 01/24/18 Rx Gabapentin [Neurontin] 100 mg PO BID #60 cap 12/25/17 01/24/18 Rx Ipratropium-Albuterol Nebulize 3 ml INHALATION RT-QID #120 12/25/17 01/24/18 Rx [Duoneb 0.5 mg-3 mg/3 ml Soln] ampul.neb Labetalol [Trandate] 400 mg PO BID #120 tab 12/25/17 01/24/18 Rx Nicotine 14Mg/24Hr Patch [Habitrol] 1 patch TRANSDERM DAILY #30 patch 12/25/17 01/24/18 Rx levETIRAcetam [Keppra] 1,000 mg PO Q12HR #120 tab 12/25/17 01/24/18 Rx cloNIDine HCL 0.3 mg PO BID 01/13/18 01/24/18 History Spironolactone [Spironolactone] 50 mg PO DAILY 01/24/18 01/24/18 History Allergies Allergy/AdvReac Type Severity Reaction Status Date / Time No Known Allergies Allergy Verified 01/13/18 09:11 Physical Exam Vitals: Vital Signs Temp Pulse Pulse Resp BP BP Pulse Ox 01/24/18 15:51 101 H 16 01/24/18 15:42 100 16 01/24/18 15:34 98.0 F 102 H 22 139/85 91 L 01/24/18 11:13 91 16 01/24/18 11:05 89 16 01/24/18 10:51 89 01/24/18 08:30 88 16 01/24/18 08:19 89 16 97 01/24/18 08:00 89 16 01/24/18 07:15 98.3 F 89 18 128/71 94 L 01/24/18 05:10 97.9 F 83 16 127/74 100 01/24/18 04:30 98.1 F 86 20 158/86 94 L 01/24/18 03:23 100 01/24/18 03:18 99 F 74 20 121/74 94 L 01/24/18 02:16 91 18 119/68 95 01/24/18 01:50 88 01/24/18 01:44 20 01/24/18 01:30 84 01/24/18 01:10 84 01/24/18 00:57 101.1 F H 82 20 124/80 82 L Intake and Output 01/24/18 01/24/18 01/24/18 06:59 14:59 22:59 Intake Total 250 500 Balance 250 500 Intake: Intake, IV Titration 50 500 Amount Piperacillin-Tazobactam 3 50 .375 gm In Dextrose/Water 1 50ml.bag @ 12.5 mls/hr IVPB Q12H KRISTY Rx#: [id number] Sodium Chloride 0.9% 1, 500 000 ml @ 100 mls/hr IV . Q10H STA Rx#:[id number] Oral 200 Other: Voiding Method Toilet Toilet Urinal Urinal Weight 65.771 kg Gen. appearance the patient is in mild degree of respiratory distress and is calm and comfortable. He is not using excessive muscle breathing.Head exam was generally normal. There was no scleral icterus or corneal arcus. Mucous membranes were moist.Neck was supple and without jugular venous distension, thyromegaly, or carotid bruits. Carotids were easily palpable bilaterally. There was no adenopathy. Lung sounds are diminished in the left lung base along with dullness to percussion. Breath sounds in the right are within normal limits.Cardiac exam revealed the PMI to be normally situated and sized. The rhythm was regular and no extrasystoles were noted during several minutes of auscultation. The first and second heart sounds were normal and physiologic splitting of the second heart sound was noted. There is a systolic ejection murmur grade 3/6 murmurs, rubs, clicks, or gallops.Abdominal exam revealed normal bowel sounds. The abdomen was soft, non-tender, and without masses, organomegaly, or appreciable enlargement of the abdominal aorta. Extremities revealed a right upper extremity functional AV fistula.Examination of the skin revealed no evidence of significant rashes, suspicious appearing nevi or other concerning lesions. Results - Laboratory Findings CBC and BMP: 01/24/18 00:56 01/24/18 00:56 PT/INR, D-dimer PT 11.9 sec (9.0-12.0) 01/24/18 00:56 INR 1.3 (<1.2) H 01/24/18 00:56 Abnormal lab findings: Abnormal Labs 01/24/18 01/24/18 01/24/18 00:56 00:56 00:56 WBC 10.7 H RBC 2.85 L Hgb 8.7 L Hct 25.6 L RDW 15.7 H Neutrophils # 8.8 H Lymphocytes # 0.9 L INR 1.3 H Sodium 136 L Chloride 89 L Carbon Dioxide 32 H BUN 40 H Creatinine 10.50 H* Glucose 110 H AST 15 L ALT 14 L Total Protein 6.0 L Albumin 3.3 L - Diagnostic Findings Chest x-ray: image reviewed Assessment and Plan Plan: Assessment 1 large left-sided pleural effusion, post thoracentesis and removal of 1 L of turbid pleural fluid from the left lung. The fluid will be sent for analysis. Rule out parapneumonic effusion knowing that the patient had a pneumonic infiltrate of the lingula and the left lower lobe on the chest x-ray that was done on 01/13/2018. The procedure was done and the patient did not achieve adequate expansion of the left lung. Suspect residual consolidation/effusion. The patient explicitly a significant amount of pleuritic pain following the procedure and the procedure had to be aborted after draining 1 L of fluid. A CAT scan of the chest will be recommended 2 recent hospitalization for status epilepticus, currently on Keppra 3 recent hospitalization for a acute respiratory failure secondary to seizure activity and pneumonia, recovered on the right 4 hypertension 5 left thalamus CVA from July 2017 6 chronic thrombocytopenia recovered and the platelet count has been normalized 7 concerns towards chronic alcoholism 8 End stage renal disease currently on hemodialysis 3 times a week 9 chronic anemia 10 spinal stenosis, chronic back pain, chronic cervical pain 11 nephrolithiasis 12 hyperlipidemia Plan The thoracentesis was completed. The fluid will be sent for analysis. Based on the suboptimal expansion of the left lung postthoracentesis, CAT scan of the chest will be obtained without contrast to further characterize abnormalities of the left lower lobe area. May consider a repeat drainage if there is still sizable effusion. Proceed with dialysis today. Continue current antibiotic coverage. We'll continue to follow.
--- NOTE | 2018-01-24 18:06 | PCN ---
PROCEDURE NOTE THORACENTESIS: PREOPERATIVE DIAGNOSIS: Left-side pleural effusion. POSTOPERATIVE DIAGNOSIS: Left-sided pleural effusion. DESCRIPTION OF PROCEDURE: A time-out was completed verifying correct patient, procedure, site, positioning , and implant (s) or special equipment if applicable. Ultrasound guidance was not used. Appropriate fluid pocket was identified and marked. Patient was positioned, prepped and draped in usual sterile fashion. Lidocaine was used to anesthetize the area. A thoracentesis catheter was introduced into the pleural space and fluid was removed. Blood loss was none. A chest x-ray was ordered to evaluate for pneumothorax. Total Fluid Removed: One liter. Patient tolerated the procedure well and there were no bedside complications or bleeding. Patient did experience some pleuritic chest pain following the procedure. Chest x-ray showed no evidence of any pneumothorax. MMODL / IJN: [id number] /
[2018-01-24] MEDS: amLODIPine 5 MG TAB PO SCH (21:05)
[2018-01-24] MEDS: PIPERACILLIN-TAZOBACTAM 3.375 GM in DEXTROSE/WATER 1 50ML.BAG IVPB SCH (21:05)
[2018-01-24] MEDS: levETIRAcetam 500 MG TAB PO SCH (21:06)
[2018-01-24] MEDS: GABAPENTIN 100 MG CAP PO SCH (21:06)
[2018-01-24] MEDS: MELATONIN 5 MG TABLET PO SCH (21:06)
[2018-01-24] MEDS: QUEtiapine 25 MG TAB PO SCH (21:06)
--- NOTE | 2018-01-24 21:12 | CT ---
EXAMINATION TYPE: CT chest wo con DATE OF EXAM: 01/24/2018 COMPARISON: NONE HISTORY: Pneumonia CT DLP: 295.7 mGycm. Automated Exposure Control for Dose Reduction was Utilized. TECHNIQUE: CT scan of the thorax is performed without IV contrast. FINDINGS: There is a moderate-sized left pleural effusion. There is some consolidation and atelectasis in the l eft lower lobe. I see no pulmonary mass. There is a very large pericardial effusion. There is a small right pleural effusion. There is infiltrate and atelectasis at the right lung base. Thoracic aorta is atheromatous. I see no mediastinal adenopathy. There is no evidence of aortic aneur ysm. There is mild coronary artery calcification. The bony thorax is intact. There is spurring in the mid and lower thoracic spine.. Kidneys are small with calcification consistent with end-stage diseas e. IMPRESSION: Large pericardial effusion. Bilateral pleural effusions and larger on the left side. Bila teral lower lobe pulmonary infiltrate and atelectasis.
--- NOTE | 2018-01-24 23:32 | P.HPIM ---
History of Present Illness H&P Date: 01/24/18 Chief Complaint: Shortness of breath Patient is a 47-year-old male with a known history of ESRD on hemodialysis TTS and multiple medical problems came to ER with complaints of shortness of breath. Patient had last hemodialysis on Saturday. Patient is supposed to get hemodialysis yesterday but he missed his dialysis. Patient was previously admitted in November 2017 for acute respiratory failure and aspiration pneumonia and was also started on antiepileptic drugs during that admission. Patient otherwise denied any fever or chills. No nausea vomiting or abdominal pain. No diarrhea. No cough or sputum production. Influenza PCR negative Chest x-ray showed large left-sided pleural effusion and patchy infiltrate on the right lung Patient is being admitted with possible pneumonia. Nephrology and pulmonary is consulted. Patient underwent thoracentesis with 1 L fluid removal and fluid analysis was sent. Review of Systems Constitutional: Patient denies any fever or chills . No generalized weakness or weight loss. Abdomen: Patient denied nausea vomiting and diarrhea and abdominal pain. Cardiovascular: Patient denies any chest pain or short of breath no palpitations. Respiratory: Patient does have shortness of breath. No cough or sputum production. Neurologic: Patient denied any numbness or tingling headache. Musculoskeletal: Patient denies any complaints of joint swelling or deformity. Skin: Negative Psychiatric: Negative Endocrine: No heat or cold intolerance. No recent weight gain. Genitourinary: No dysuria or hematuria. All other 14 point ROS negative except the above Past Medical History Past Medical History: Hypertension, Musculoskeletal Disorder, Renal Disease, Seizure Disorder Additional Past Medical History / Comment(s): End-stage renal disease on hemodialysis History of Any Multi-Drug Resistant Organisms: None Reported Past Surgical History: Orthopedic Surgery Additional Past Surgical History / Comment(s): fistula for dialysis lithotripsy kidney stents Past Anesthesia/Blood Transfusion Reactions: No Reported Reaction Past Psychological History: No Psychological Hx Reported Additional Psychological History / Comment(s): Pt resides with his spouse of 17 yrs. He no longer drives d/t seizures. His spouse takes him to appts or his sister does. He is otherwise independent. His spouse states since his stroke, he is "more carmona". Smoking Status: Current every day smoker Past Alcohol Use History: None Reported Additional Past Alcohol Use History / Comment(s): Pt started smoking in 1984 and is in the process of cutting down to quit. Past Drug Use History: None Reported - Past Family History Father Family Medical History: Cancer, CVA/TIA Additional Family Medical History / Comment(s): Father had lymphoma. He had a CVA Mother Family Medical History: CVA/TIA Additional Family Medical History / Comment(s): Mother had a CVA. Medications and Allergies Home Medications Medication Instructions Recorded Confirmed Type Calcium Acetate [PhosLo] 667 mg PO TID-W/MEALS 11/22/16 01/24/18 History Sodium Bicarbonate Tab 650 mg PO BID 11/22/16 01/24/18 History Lisinopril [Zestril] 20 mg PO BID 06/14/17 01/24/18 History Ergocalciferol (Vitamin D2) 50,000 unit PO Q30D 07/21/17 01/24/18 History [Vitamin D2] Methocarbamol [Robaxin] 750 mg PO TID PRN 07/22/17 01/24/18 History Aspirin 325 mg PO DAILY #30 tab 07/27/17 01/24/18 Rx Atorvastatin [Lipitor] 20 mg PO DAILY #30 tablet 07/27/17 01/24/18 Rx Melatonin 5 mg PO HS tab 07/27/17 01/24/18 Rx QUEtiapine [SEROquel] 25 mg PO HS #30 tab 07/27/17 01/24/18 Rx Sevelamer [Renvela] 1,600 mg PO TID-W/MEALS #0 tab 07/27/17 01/24/18 Rx amLODIPine [Norvasc] 5 mg PO BID tab 07/27/17 01/24/18 Rx Gabapentin [Neurontin] 100 mg PO BID #60 cap 12/25/17 01/24/18 Rx Ipratropium-Albuterol Nebulize 3 ml INHALATION RT-QID #120 12/25/17 01/24/18 Rx [Duoneb 0.5 mg-3 mg/3 ml Soln] ampul.neb Labetalol [Trandate] 400 mg PO BID #120 tab 12/25/17 01/24/18 Rx Nicotine 14Mg/24Hr Patch [Habitrol] 1 patch TRANSDERM DAILY #30 patch 12/25/17 01/24/18 Rx levETIRAcetam [Keppra] 1,000 mg PO Q12HR #120 tab 12/25/17 01/24/18 Rx cloNIDine HCL 0.3 mg PO BID 01/13/18 01/24/18 History Spironolactone [Spironolactone] 50 mg PO DAILY 01/24/18 01/24/18 History Allergies Allergy/AdvReac Type Severity Reaction Status Date / Time No Known Allergies Allergy Verified 01/13/18 09:11 Physical Exam Vitals: Vital Signs Temp Pulse Pulse Resp BP BP Pulse Ox 01/24/18 08:30 88 16 01/24/18 08:19 89 16 97 01/24/18 08:00 89 16 01/24/18 07:15 98.3 F 89 18 128/71 94 L 01/24/18 05:10 97.9 F 83 16 127/74 100 01/24/18 04:30 98.1 F 86 20 158/86 94 L 01/24/18 03:23 100 01/24/18 03:18 99 F 74 20 121/74 94 L 01/24/18 02:16 91 18 119/68 95 01/24/18 01:50 88 01/24/18 01:44 20 01/24/18 01:30 84 01/24/18 01:10 84 01/24/18 00:57 101.1 F H 82 20 124/80 82 L Intake and Output 01/23/18 01/24/18 01/24/18 22:59 06:59 14:59 Intake Total 250 Balance 250 Intake: Intake, IV Titration 50 Amount Piperacillin-Tazobactam 3 50 .375 gm In Dextrose/Water 1 50ml.bag @ 12.5 mls/hr IVPB Q12H [facility] Rx#: [id number] Oral 200 Other: Voiding Method Toilet Toilet Urinal Urinal Weight 65.771 kg PHYSICAL EXAMINATION: Patient is lying in the bed comfortably, no acute distress, awake alert and oriented.. HEENT: Normocephalic. Neck is supple. Pupils reactive. Nostrils clear. Oral cavity is moist. Ears reveal no drainage. Neck reveals no JVD, carotid bruits, or thyromegaly. CHEST EXAMINATION: Trachea is central. Symmetrical expansion. Diminished breath sounds and left basilar crackles. No wheezing CARDIAC: Normal S1, S2 with no gallops. No murmurs ABDOMEN: Soft. Bowel sounds normal. No organomegaly. No abdominal bruits. Extremities: reveal no edema. No clubbing or cyanosis Neurologically awake, alert, oriented x3 with well-coordinated movements. No focal deficits noted Skin: No rash or skin lesions. Psychiatric: Cooperative. Nonsuicidal Musculoskeletal: No joint swelling or deformity. Normal range of motion. Results CBC & Chem 7: 01/24/18 00:56 01/24/18 00:56 Labs: Abnormal Lab Results - Last 24 Hours (Table) 01/24/18 01/24/18 01/24/18 Range/Units 00:56 00:56 00:56 WBC 10.7 H (3.8-10.6) k/uL RBC 2.85 L (4.30-5.90) m/uL Hgb 8.7 L (13.0-17.5) gm/dL Hct 25.6 L (39.0-53.0) % RDW 15.7 H (11.5-15.5) % Neutrophils # 8.8 H (1.3-7.7) k/uL Lymphocytes # 0.9 L (1.0-4.8) k/uL INR 1.3 H (<1.2) Sodium 136 L (137-145) mmol/L Chloride 89 L (98-107) mmol/L Carbon Dioxide 32 H (22-30) mmol/L BUN 40 H (9-20) mg/dL Creatinine 10.50 H* (0.66-1.25) mg/dL Glucose 110 H (74-99) mg/dL AST 15 L (17-59) U/L ALT 14 L (21-72) U/L Total Protein 6.0 L (6.3-8.2) g/dL Albumin 3.3 L (3.5-5.0) g/dL Thrombosis Risk Factor Assmnt - DVT/VTE Prophylaxis DVT/VTE Prophylaxis: Pharmacologic Prophylaxis ordered Assessment and Plan Assessment: Shortness of breath due to left large pleural effusion. Possible parapneumonic effusion is being considered. With the recent pneumonic infiltrate of the lingula Pneumonia with bilateral lower lobe pulmonary infiltrates. Recent hospitalization for status of her progress and acute respiratory failure with pneumonia Hypertension Hyperlipidemia ESRD on hemodialysis. 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 Pulmonary and nephrology was consulted. Patient underwent thoracentesis with 1 L fluid removal. Follow-up fluid analysis. Hemodialysis as per nephrology. Continue with home medications and further recommendations based on the clinical course. Prognosis is guarded with multiple medical problems and comorbid conditions. Time with Patient: Greater than 30
[2018-01-25 02:43] LABS: Total Protein, Body Fluid 3460 mg/dL
[2018-01-25] MEDS: PIPERACILLIN-TAZOBACTAM 3.375 GM in DEXTROSE/WATER 1 50ML.BAG IVPB SCH ×2 (05:45→17:39)
[2018-01-25] MEDS ORDERED: LEVOFLOXACIN 750MG-D5W PMX 750 MG in DEXTROSE/WATER 1 150ML.BAG IVPB SCH (06:00)
--- NOTE | 2018-01-25 07:19 | XR ---
EXAMINATION TYPE: XR chest 2V DATE OF EXAM: 01/25/2018 COMPARISON: Chest x-ray and CT chest from yesterday. HISTORY: Pneumonia progress study. TECHNIQUE: Frontal and lateral views of the chest are obtained. FINDINGS: There is and large cardiac silhouette due to large pericardial effusion redemonstrated. Th ere is persistent left basilar opacity which correlates with small left pleural effusion and left low er lung atelectasis and/or infiltrate. Right lung remains clear. Osseous structures are intact. No me diastinal shift is present. IMPRESSION: Persistent large pericardial effusion. Persistent small left pleural effusion and associ ated left lower lung infiltrate and/or atelectasis.
[2018-01-25] MEDS: IPRATROPIUM-ALBUTEROL 3 ML NEB INHALATION SCH ×4 (07:25→20:28)
[2018-01-25 07:34] LABS: Basophils % (A) 0 %; Eosinophils # (A) 0.2 k/uL (0-0.7); Eosinophils % (A) 2 %; HCT 28.6 % (39.0-53.0); HGB 9.4 gm/dL (13.0-17.5); Lymphocytes # (A) 0.8 k/uL (1.0-4.8); Lymphocytes % (A) 7 %; MCHC 32.9 g/dL (31.0-37.0); MCV 91.5 fL (80.0-100.0); Mean Platelet Volume 7.2; Monocytes # (A) 0.6 k/uL (0-1.0); Monocytes % (A) 5 %; Neutrophils # (A) 9.6 k/uL (1.3-7.7); Neutrophils % (A) 84 %; Platelet Count 354 k/uL (150-450); Poikilocytosis Moderate; RBC 3.12 m/uL (4.30-5.90); RDW 15.9 % (11.5-15.5); WBC 11.4 k/uL (3.8-10.6)
[2018-01-25] MEDS ORDERED: VANCOMYCIN 1,250 MG in SODIUM CHLORIDE 0.9% 250 ML IVPB ONE (08:00)
[2018-01-25] MEDS: amLODIPine 5 MG TAB PO SCH ×2 (08:13→22:10)
[2018-01-25] MEDS: ENOXAPARIN 30 MG/0.3 ML SYRINGE SQ SCH (08:13)
[2018-01-25] MEDS: CALCIUM ACETATE 667 MG CAP PO SCH ×3 (08:13→17:39)
[2018-01-25] MEDS: levETIRAcetam 500 MG TAB PO SCH ×2 (08:13→22:10)
[2018-01-25] MEDS: ATORVASTATIN 20 MG TAB PO SCH (08:13)
[2018-01-25] MEDS: ASPIRIN 325 MG TAB PO SCH (08:13)
[2018-01-25] MEDS: GABAPENTIN 100 MG CAP PO SCH ×2 (08:13→22:10)
[2018-01-25] MEDS: NICOTINE 14MG/24HR PATCH TRANSDERM SCH (08:14)
[2018-01-25] MEDS: SPIRONOLACTONE 25 MG TAB PO SCH (08:14)
[2018-01-25] MEDS: SODIUM BICARBONATE TAB 650 MG TAB PO SCH ×2 (08:14→22:10)
[2018-01-25 08:16] LABS: Calcium 9.1 mg/dL (8.4-10.2); Potassium 5.9 mmol/L (3.5-5.1)
--- NOTE | 2018-01-25 11:39 | P.PN ---
Subjective Progress Note Date: 01/25/18 Seen and examined for the follow-up of end-stage renal disease. Currently ongoing dialysis. Tolerating well. Objective - Vital Signs Vital signs: Vital Signs Temp 100.0 F H 01/25/18 07:00 Pulse 104 H 01/25/18 10:59 Resp 18 01/25/18 07:00 BP 133/84 01/25/18 07:00 Pulse Ox 96 01/25/18 07:00 Intake & Output 01/24/18 01/25/18 01/25/18 18:59 06:59 18:59 Intake Total 500 225 Balance 500 225 Intake: Intake, IV Titration 500 Amount Sodium Chloride 0.9% 1, 500 000 ml @ 100 mls/hr IV . Q10H [facility] Rx#:[id number] Oral 225 Other: Voiding Method Toilet Toilet Urinal Urinal - Exam Lying in bed no acute distress S1-S2 heard Lungs clear Forearm fistula right arm - Labs CBC & Chem 7: 01/25/18 07:15 01/25/18 07:15 Labs: Abnormal Lab Results - Last 24 Hours (Table) 01/25/18 01/25/18 Range/Units 07:15 07:15 WBC 11.4 H (3.8-10.6) k/uL RBC 3.12 L (4.30-5.90) m/uL Hgb 9.4 L (13.0-17.5) gm/dL Hct 28.6 L (39.0-53.0) % RDW 15.9 H (11.5-15.5) % Neutrophils # 9.6 H (1.3-7.7) k/uL Lymphocytes # 0.8 L (1.0-4.8) k/uL Sodium 135 L (137-145) mmol/L Potassium 5.9 H (3.5-5.1) mmol/L Chloride 95 L (98-107) mmol/L BUN 32 H (9-20) mg/dL Creatinine 7.74 H* (0.66-1.25) mg/dL Microbiology - Last 24 Hours (Table) 01/24/18 14:31 Gram Stain - Preliminary Pleural Fluid Body Fluid Culture - Preliminary 01/24/18 00:56 Blood Culture - Preliminary Blood No Growth after 24 hours Assessment and Plan Assessment: Impression: #1 end-stage renal disease on hemodialysis TTS. #2 volume overload. #3 right pleural effusion status post thoracentesis #4 anemia with C daily #5 CKDwith metabolic bone disease #6 possible pneumonia Recommendations: #1 hemodialysis today. #2 CK D medications #3 antibiotics per primary team
--- NOTE | 2018-01-25 14:18 | P.GSCN ---
History of Present Illness Consult date: 01/25/18 Reason for Consult: Pericardial effusion, treatment recommendations. Requesting physician: Barbara Doss History of present illness: This 47-year-old male patient with a previous medical history of end-stage renal disease on hemodialysis, hypertension, stroke, recent diagnosis of seizure disorder, and current tobacco dependence presented to the emergency room with complaints of chest pain and shortness of breath. Apparently over the last several days he has had chest pain which he describes as an intermittent ache over the left side of his chest, it is worse with movement and deep breaths, he denies any nausea, vomiting, diarrhea, sick contacts, recent travel or hospitalizations. Of note he did miss his dialysis on secondary to the weather. He also states he's had a fever. His chest pain and shortness of breath where improved with updraft treatments and application of oxygen. Chest x-ray completed in the emergency room demonstrated consolidation and opacification on the left side of the chest. This gentleman was admitted for evaluation and treatment of community acquired pneumonia and left pleural effusion. Chest CT demonstrated bilateral pleural effusion, left greater than right, and a large pericardial effusion. Dr. Doss performed an ultrasound guided thoracentesis yesterday draining of 1000 mL of fluid with a preliminary Gram stain which was negative for organisms. Dr. Solis was consulted regarding the pericardial effusion and treatment recommendations. Review of Systems 14 point review of systems was completed and was negative except as noted in the HPI. Past Medical History Past Medical History: Hypertension, Musculoskeletal Disorder, Renal Disease, Seizure Disorder Additional Past Medical History / Comment(s): End-stage renal disease on hemodialysis History of Any Multi-Drug Resistant Organisms: None Reported Past Surgical History: Orthopedic Surgery Additional Past Surgical History / Comment(s): fistula for dialysis lithotripsy kidney stents Past Anesthesia/Blood Transfusion Reactions: No Reported Reaction Past Psychological History: No Psychological Hx Reported Additional Psychological History / Comment(s): Pt resides with his spouse of 17 yrs. He no longer drives d/t seizures. His spouse takes him to appts or his sister does. He is otherwise independent. His spouse states since his stroke, he is "more carmona". Smoking Status: Current every day smoker Past Alcohol Use History: None Reported Additional Past Alcohol Use History / Comment(s): Pt started smoking in 1984 and is in the process of cutting down to quit. Past Drug Use History: None Reported - Past Family History Father Family Medical History: Cancer, CVA/TIA Additional Family Medical History / Comment(s): Father had lymphoma. He had a CVA Mother Family Medical History: CVA/TIA Additional Family Medical History / Comment(s): Mother had a CVA. Medications and Allergies Home Medications Medication Instructions Recorded Confirmed Type Calcium Acetate [PhosLo] 667 mg PO TID-W/MEALS 11/22/16 01/24/18 History Sodium Bicarbonate Tab 650 mg PO BID 11/22/16 01/24/18 History Lisinopril [Zestril] 20 mg PO BID 06/14/17 01/24/18 History Ergocalciferol (Vitamin D2) 50,000 unit PO Q30D 07/21/17 01/24/18 History [Vitamin D2] Methocarbamol [Robaxin] 750 mg PO TID PRN 07/22/17 01/24/18 History Aspirin 325 mg PO DAILY #30 tab 07/27/17 01/24/18 Rx Atorvastatin [Lipitor] 20 mg PO DAILY #30 tablet 07/27/17 01/24/18 Rx Melatonin 5 mg PO HS tab 07/27/17 01/24/18 Rx QUEtiapine [SEROquel] 25 mg PO HS #30 tab 07/27/17 01/24/18 Rx Sevelamer [Renvela] 1,600 mg PO TID-W/MEALS #0 tab 07/27/17 01/24/18 Rx amLODIPine [Norvasc] 5 mg PO BID tab 07/27/17 01/24/18 Rx Gabapentin [Neurontin] 100 mg PO BID #60 cap 12/25/17 01/24/18 Rx Ipratropium-Albuterol Nebulize 3 ml INHALATION RT-QID #120 12/25/17 01/24/18 Rx [Duoneb 0.5 mg-3 mg/3 ml Soln] ampul.neb Labetalol [Trandate] 400 mg PO BID #120 tab 12/25/17 01/24/18 Rx Nicotine 14Mg/24Hr Patch [Habitrol] 1 patch TRANSDERM DAILY #30 patch 12/25/17 01/24/18 Rx levETIRAcetam [Keppra] 1,000 mg PO Q12HR #120 tab 12/25/17 01/24/18 Rx cloNIDine HCL 0.3 mg PO BID 01/13/18 01/24/18 History Spironolactone [Spironolactone] 50 mg PO DAILY 01/24/18 01/24/18 History Allergies Allergy/AdvReac Type Severity Reaction Status Date / Time No Known Allergies Allergy Verified 01/13/18 09:11 Surgical - Exam Vital Signs Temp Pulse Resp BP Pulse Ox 101.1 F H 82 20 124/80 82 L 01/24/18 00:57 01/24/18 00:57 01/24/18 00:57 01/24/18 00:57 01/24/18 00:57 - General well developed, well nourished, no distress, no pain, chronically ill - Eyes PERRL, normal ocular movement - ENT no hearing loss - Respiratory Lungs sounds diminished bilaterally. Respirations even, nonlabored. Currently on 2 L nasal cannula with oxygen saturation 96%. - Cardiovascular S1, S2 present. No distant or muffled heart sounds. Tachycardic, regular rate and rhythm, sinus tach on telemetry. Palpable peripheral pulses bilaterally. No edema present. No calf pain or tenderness noted. - Abdomen Abdomen: soft, non tender, bowel sounds - Genitourinary Deferred - Rectum Deferred - Integumentary Skin is warm and dry with evidence of good perfusion. no rash, no growths - Neurologic normal coordination, normal sensation - Psychiatric oriented to time, oriented to person, oriented to place, speech is normal, memory intact Results - Labs 01/25/18 07:15 01/25/18 07:15 Abnormal Lab Results - Last 24 Hours (Table) 01/25/18 01/25/18 Range/Units 07:15 07:15 WBC 11.4 H (3.8-10.6) k/uL RBC 3.12 L (4.30-5.90) m/uL Hgb 9.4 L (13.0-17.5) gm/dL Hct 28.6 L (39.0-53.0) % RDW 15.9 H (11.5-15.5) % Neutrophils # 9.6 H (1.3-7.7) k/uL Lymphocytes # 0.8 L (1.0-4.8) k/uL Sodium 135 L (137-145) mmol/L Potassium 5.9 H (3.5-5.1) mmol/L Chloride 95 L (98-107) mmol/L BUN 32 H (9-20) mg/dL Creatinine 7.74 H* (0.66-1.25) mg/dL Microbiology - Last 24 Hours (Table) 01/24/18 14:31 Gram Stain - Preliminary Pleural Fluid Body Fluid Culture - Preliminary 01/24/18 00:56 Blood Culture - Preliminary Blood No Growth after 24 hours Diabetes panel 01/25/18 Range/Units 07:15 Sodium 135 L (137-145) mmol/L Potassium 5.9 H (3.5-5.1) mmol/L Chloride 95 L (98-107) mmol/L Carbon Dioxide 26 (22-30) mmol/L BUN 32 H (9-20) mg/dL Creatinine 7.74 H* (0.66-1.25) mg/dL Glucose 87 (74-99) mg/dL Calcium 9.1 (8.4-10.2) mg/dL Calcium panel 01/25/18 Range/Units 07:15 Calcium 9.1 (8.4-10.2) mg/dL Pituitary panel 01/25/18 Range/Units 07:15 Sodium 135 L (137-145) mmol/L Potassium 5.9 H (3.5-5.1) mmol/L Chloride 95 L (98-107) mmol/L Carbon Dioxide 26 (22-30) mmol/L BUN 32 H (9-20) mg/dL Creatinine 7.74 H* (0.66-1.25) mg/dL Glucose 87 (74-99) mg/dL Calcium 9.1 (8.4-10.2) mg/dL Adrenal panel 01/25/18 Range/Units 07:15 Sodium 135 L (137-145) mmol/L Potassium 5.9 H (3.5-5.1) mmol/L Chloride 95 L (98-107) mmol/L Carbon Dioxide 26 (22-30) mmol/L BUN 32 H (9-20) mg/dL Creatinine 7.74 H* (0.66-1.25) mg/dL Glucose 87 (74-99) mg/dL Calcium 9.1 (8.4-10.2) mg/dL - Imaging Chest x-ray: report reviewed, image reviewed CT scan - chest: report reviewed, image reviewed Assessment and Plan (1) Chest pain Current Visit: Yes Status: Acute Code(s): R07.9 - CHEST PAIN, UNSPECIFIED SNOMED Code(s): 99008293 (2) Community acquired pneumonia Current Visit: Yes Status: Acute Code(s): J18.9 - PNEUMONIA, UNSPECIFIED ORGANISM SNOMED Code(s): 427016626 (3) End stage renal disease on dialysis Current Visit: Yes Status: Chronic Code(s): N18.6 - END STAGE RENAL DISEASE ; Z99.2 - DEPENDENCE ON RENAL DIALYSIS SNOMED Code(s): 323853428 (4) Fever Current Visit: Yes Status: Acute Code(s): R50.9 - FEVER, UNSPECIFIED SNOMED Code(s): 699401249 (5) Pleural effusion, left Current Visit: Yes Status: Acute Code(s): J90 - PLEURAL EFFUSION, NOT ELSEWHERE CLASSIFIED SNOMED Code(s): 63638795 (6) Generalized seizure Current Visit: Yes Status: Chronic Code(s): R56.9 - UNSPECIFIED CONVULSIONS SNOMED Code(s): 538684729 (7) History of stroke Current Visit: No Status: Resolved Code(s): Z86.73 - PRSNL HX OF TIA (TIA), AND CEREB INFRC W/O RESID DEFICITS SNOMED Code(s): 287987764 (8) Hypertension Current Visit: Yes Status: Chronic Code(s): I10 - ESSENTIAL (PRIMARY) HYPERTENSION SNOMED Code(s): 64929642 (9) Tobacco dependence Current Visit: Yes Status: Chronic Code(s): F17.200 - NICOTINE DEPENDENCE, UNSPECIFIED, UNCOMPLICATED SNOMED Code(s): 78296734 Plan: The patient was seen and examined. Chart/diagnostics were reviewed. Case to be discussed with Dr. Solis. Echocardiogram ordered by Dr. Doss. Will review for size of pericardial effusion. Medical management per primary care service. Patient received dialysis this morning, dialysis treatments per nephrology. More recommendations to follow once Dr. Solis has had time to review the echocardiogram. Patient is currently in no distress at this time. Thank you Dr. Doss for this consult. We look forward to working with you in the care of your patient. Time with Patient: Greater than 30
--- NOTE | 2018-01-25 16:26 | P.PN ---
Subjective Progress Note Date: 01/25/18 47-year-old male patient, presented to the hospital because of worsening shortness of breath. The patient has multiple medical problems and comorbidities. The patient was in the hospital back in and at that time the patient was in acute respiratory failure and aspiration pneumonia was suspected knowing that the patient was having generalized tonic-clonic seizures. The patient at that time presented to the hospital post ictal with altered mentation and he was combative. He was treated and he was stabilized. He was placed on antiepileptic medication. He is known also to have end-stage renal disease and he is on hemodialysis 3 times a week, TTS, and he has been very compliant and he has not missed any of his dialysis sessions. 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 Upon discharge, the patient was released home on Augmentin 875 mg 1 tablet by mouth twice a day. He was also receiving Keppra for his seizure activity. He was seen in our office on 01/13/2018 and the patient had a new infiltrate in the lingula and the left lower lobe and there was obvious improved aeration of the right lower lobe. Small bilateral pleural effusion was noted. Over the next 1-2 week, the patient's condition got worse and he came into the hospital yesterday with a large left-sided pleural effusion. He did spike a temperature earlier and currently is afebrile. His white cell count is not elevated at 10.7. Rest of the electrolytes are consistent with his renal failure knowing that the patient a BUN of 40 with a creatinine of 10.5 and his potassium level is at 4.6. Currently is on a combination of Zosyn and vancomycin. Based on this large left-sided pleural effusion, a pulmonary consultation was requested. I saw this patient. I did a side thoracentesis during which I removed a total of 1000 ML's of pleural fluid. I should be able to take more fluids yet the patient experienced increased pain and pleurisy along the left lung and I had to stop the procedure. I'm sure there is more fluid left within his left pleural space. A subsequent chest x-ray showed no evidence of any pneumothorax and there is some limited improvement in the aeration of the left lung with residual atelectasis/consolidation/effusion the left lung base. The pleural fluid was sent for analysis. On 01/25/2018 I'm seeing this patient for a follow-up. The patient is doing slightly better compared to yesterday. The patient underwent a thoracentesis yesterday and after removing around 1 L of pleural fluid, the patient became symptomatic and he developed pleuritic left sided chest pain that was brief and ultimately recovered. I had to abort the procedure. Chest x-ray showed persistent opacification of left lung base and based on that I performed a CAT scan of the chest which showed a large pericardial effusion, residual located left-sided pleural effusion and left lower lobe consolidation/atelectasis. Based on the CAT scan findings, an echocardiogram was ordered and the patient was asked to be seen by cardiology and cardiothoracic surgery. He is currently on broad-spectrum antibiotics. He is afebrile. He underwent dialysis yesterday and nephrology is on the case regarding his dialysis schedule. Suspect a parapneumonic complicated left-sided pleural effusion special that the pleural fluid that was drained from the left side showed elevated LDH and protein. We are awaiting the cultures. I also awaiting the fluid cytology. The white cell count is not elevated. The creatinine is down to 7.7. Potassium level is at 5.9 and the patient will have a follow-up with nephrology. Objective - Vital Signs Vital signs: Vital Signs Temp 99.3 F 01/25/18 15:00 Pulse 100 01/25/18 15:33 Resp 18 01/25/18 15:00 BP 160/88 01/25/18 15:00 Pulse Ox 92 L 01/25/18 15:00 Intake & Output 01/24/18 01/25/18 01/25/18 18:59 06:59 18:59 Intake Total 500 225 650 Output Total 50 Balance 500 225 600 Intake: Intake, IV Titration 500 250 Amount Sodium Chloride 0.9% 1, 500 000 ml @ 100 mls/hr IV . Q10H [facility] Rx#:[id number] Vancomycin 1,250 mg In 250 Sodium Chloride 0.9% 250 ml @ 125 mls/hr IVPB ONCE ONE Rx#:[id number] Oral 225 400 Output: Urine 50 Other: Voiding Method Toilet Toilet Urinal Urinal - Exam Gen. appearance the patient is in mild degree of respiratory distress and is calm and comfortable. He is not using excessive muscle breathing.Head exam was generally normal. There was no scleral icterus or corneal arcus. Mucous membranes were moist.Neck was supple and without jugular venous distension, thyromegaly, or carotid bruits. Carotids were easily palpable bilaterally. There was no adenopathy. Lung sounds are diminished in the left lung base along with dullness to percussion. Breath sounds in the right are within normal limits.Cardiac exam revealed the PMI to be normally situated and sized. The rhythm was regular and no extrasystoles were noted during several minutes of auscultation. The first and second heart sounds were normal and physiologic splitting of the second heart sound was noted. There is a systolic ejection murmur grade 3/6 murmurs, rubs, clicks, or gallops.Abdominal exam revealed normal bowel sounds. The abdomen was soft, non-tender, and without masses, organomegaly, or appreciable enlargement of the abdominal aorta. Extremities revealed a right upper extremity functional AV fistula.Examination of the skin revealed no evidence of significant rashes, suspicious appearing nevi or other concerning lesions. - Labs CBC & Chem 7: 01/25/18 07:15 01/25/18 07:15 Labs: Abnormal Lab Results - Last 24 Hours (Table) 01/25/18 01/25/18 Range/Units 07:15 07:15 WBC 11.4 H (3.8-10.6) k/uL RBC 3.12 L (4.30-5.90) m/uL Hgb 9.4 L (13.0-17.5) gm/dL Hct 28.6 L (39.0-53.0) % RDW 15.9 H (11.5-15.5) % Neutrophils # 9.6 H (1.3-7.7) k/uL Lymphocytes # 0.8 L (1.0-4.8) k/uL Sodium 135 L (137-145) mmol/L Potassium 5.9 H (3.5-5.1) mmol/L Chloride 95 L (98-107) mmol/L BUN 32 H (9-20) mg/dL Creatinine 7.74 H* (0.66-1.25) mg/dL Microbiology - Last 24 Hours (Table) 01/24/18 14:31 Gram Stain - Preliminary Pleural Fluid Body Fluid Culture - Preliminary 01/24/18 00:56 Blood Culture - Preliminary Blood No Growth after 24 hours Assessment and Plan Plan: Assessment 1 large left-sided pleural effusion, post thoracentesis and removal of 1 L of turbid pleural fluid from the left lung. The fluid is exudate and there is some residual loculated left-sided pleural effusion and subsequent CAT scan of the chest and some left lower lobe atelectasis and consolidation. The fluid is an exudate. Cultures are still pending for now. Pleuritic chest pain has recovered from the left lung. 2 large pericardial effusion without signs of clinical cardiac temponade and we are awaiting a echocardiogram and consultation with cardiology and cardiothoracic surgery. Note that the patient has only a small amount of pericardial effusion based on the CAT scan that was done back in December 2017. This pericardial effusion has progressively grown over the past 4 weeks. Rule out uremic pericarditis with pericardial effusion. Infectious pericarditis felt to be less likely. Malignancy is felt to be less likely. 3 recent hospitalization for a acute respiratory failure secondary to seizure activity and pneumonia, recovered on the right. Subsequently the patient developed a extensive pneumonia of the left and this is probably a aspiration pneumonia. 4 hypertension 5 left thalamus CVA from July 2017 6 chronic thrombocytopenia recovered and the platelet count has been normalized 7 concerns towards chronic alcoholism 8 End stage renal disease currently on hemodialysis 3 times a week 9 chronic anemia 10 spinal stenosis, chronic back pain, chronic cervical pain 11 nephrolithiasis 12 hyperlipidemia 13 seizure history with previous history of status epilepticus, currently on Keppra Plan We'll discuss the case with surgery and cardiology. Very reasonable to aspirate the pericardial fluid by pericardiocentesis. Alternatively, his surgical window can be considered along with evacuation of the left-sided pleural effusion which seems to be somewhat loculated and parapneumonic in nature. Awaiting cultures. Continue antibiotics. Dialysis per nephrology. We 'll continue to follow. Keep same antibiotics for now.
[2018-01-25] MEDS: QUEtiapine 25 MG TAB PO SCH (22:11)
[2018-01-25] MEDS: MELATONIN 5 MG TABLET PO SCH (22:11)
[2018-01-25] MEDS: ACETAMINOPHEN TAB 325 MG TAB PO PRN (22:18)
--- NOTE | 2018-01-26 00:15 | P.PN ---
Subjective Progress Note Date: 01/25/18 Principal diagnosis: Pleural effusion Patient is a 47-year-old male with a known history of ESRD on hemodialysis TTS and multiple medical problems came to ER with complaints of shortness of breath. Patient had last hemodialysis on Saturday. Patient is supposed to get hemodialysis yesterday but he missed his dialysis. Patient was previously admitted in November 2017 for acute respiratory failure and aspiration pneumonia and was also started on antiepileptic drugs during that admission. Patient otherwise denied any fever or chills. No nausea vomiting or abdominal pain. No diarrhea. No cough or sputum production. Influenza PCR negative Chest x-ray showed large left-sided pleural effusion and patchy infiltrate on the right lung Patient is being admitted with possible pneumonia. Nephrology and pulmonary is consulted. Patient underwent thoracentesis with 1 L fluid removal and fluid analysis was sent. 01/25/2018 Patient says that his breathing is better today. Patient underwent thoracentesis with 1 L fluid removal from the left lung on 01/24/2018 CT chest showed large pericardial effusion and pulmonary vascular congestion along with small left-sided pleural effusion. Patient had hemodialysis yesterday. Active Medications Generic Name Dose Route Start Last Admin Trade Name Freq PRN Reason Stop Dose Admin Acetaminophen 650 mg 01/24/18 04:25 01/25/18 22:18 Tylenol Tab PO 650 mg Q6HR PRN Administration Fever and/ or Pain Albuterol/Ipratropium 3 ml 01/24/18 08:00 01/25/18 20:28 Duoneb 0.5 Mg-3 Mg/3 Ml Soln INHALATION 3 ml RT-QID KRISTY Administration Amlodipine Besylate 5 mg 01/24/18 21:00 01/25/18 22:10 Norvasc PO 5 mg BID KRISTY Administration Aspirin 325 mg 01/24/18 10:45 01/25/18 08:13 Aspirin PO 325 mg DAILY KRISTY Administration Atorvastatin Calcium 20 mg 01/24/18 10:45 01/25/18 08:13 Lipitor PO 20 mg DAILY KRISTY Administration Calcium Acetate 667 mg 01/24/18 12:30 01/25/18 17:39 Phoslo PO 667 mg TID-W/MEALS KRISTY Administration Darbepoetin Jim 40 mcg 01/24/18 15:00 01/24/18 16:22 Aranesp SQ 40 mcg Q7D KRISTY Administration Enoxaparin Sodium 30 mg 01/25/18 09:00 01/25/18 08:13 Lovenox SQ 30 mg DAILY KRISTY Administration Ergocalciferol 50,000 unit 02/15/18 12:00 Vitamin D2 PO Q30D KRISTY Gabapentin 100 mg 01/24/18 21:00 01/25/18 22:10 Neurontin PO 100 mg BID KRISTY Administration Piperacillin/Tazobactam/ 50 mls @ 12.5 mls/hr 01/24/18 18:00 01/25/18 17:39 Dextrose 3.375 gm/ IV Solution IVPB 12.5 mls/hr Q12H KRISTY Administration Levofloxacin 500 mg/ IV 100 mls @ 100 mls/hr 01/26/18 09:00 Solution IVPB Q48H KRISTY Levetiracetam 1,000 mg 01/24/18 21:00 01/25/18 22:10 Keppra PO 1,000 mg Q12HR KRISTY Administration Melatonin 5 mg 01/24/18 21:00 01/25/18 22:11 Melatonin PO 5 mg HS KRISTY Administration Methocarbamol 750 mg 01/24/18 10:42 Robaxin PO TID PRN MODERATE MUSCLE PAIN Miscellaneous Information 1 each 01/24/18 02:00 Pharmacy To Dose Iv Vancomycin MISCELLANE DIRECTED PRN Per Protocol Miscellaneous Information 1 each 01/24/18 03:23 Pneumonia Protocol Utilized PO ONCE PRN Per Protocol Nicotine 1 patch 01/24/18 10:45 01/25/18 08:14 Habitrol 14mg/24hr Patch TRANSDERM 1 patch DAILY KRISTY Administration Quetiapine Fumarate 25 mg 01/24/18 21:00 01/25/18 22:11 Seroquel PO 25 mg HS KRISTY Administration Sodium Bicarbonate 650 mg 01/24/18 10:45 01/25/18 22:10 Sodium Bicarbonate Tab PO 650 mg BID KRISTY Administration Spironolactone 50 mg 01/24/18 10:45 01/25/18 08:14 Aldactone PO 50 mg DAILY KRISTY Administration Chest x-rays today showed large pericardial effusion as well. CT surgery was consulted and is waiting for admonitions. No complaints of chest pain. No nausea vomiting or abdominal pain. No fever no chills. All other review of systems negative except the above. Objective - Vital Signs Vital signs: Vital Signs Temp 99.3 F 01/25/18 15:00 Pulse 103 H 01/25/18 20:40 Resp 18 01/25/18 15:00 BP 160/88 01/25/18 15:00 Pulse Ox 92 L 01/25/18 15:00 Intake & Output 01/25/18 01/25/18 01/26/18 06:59 18:59 07:59 Intake Total 225 650 Output Total 50 Balance 225 600 Intake: Intake, IV Titration 250 Amount Vancomycin 1,250 mg In 250 Sodium Chloride 0.9% 250 ml @ 125 mls/hr IVPB ONCE ONE Rx#:[id number] Oral 225 400 Output: Urine 50 Other: Voiding Method Toilet Urinal - Exam Patient is lying in the bed comfortably, no acute distress, awake alert and oriented.. HEENT: Normocephalic. Neck is supple. Pupils reactive. Nostrils clear. Oral cavity is moist. Ears reveal no drainage. Neck reveals no JVD, carotid bruits, or thyromegaly. CHEST EXAMINATION: Trachea is central. Symmetrical expansion. Diminished breath sounds and left basilar crackles. No wheezing CARDIAC: Normal S1, S2 with no gallops. No murmurs ABDOMEN: Soft. Bowel sounds normal. No organomegaly. No abdominal bruits. Extremities: reveal no edema. No clubbing or cyanosis Neurologically awake, alert, oriented x3 with well-coordinated movements. No focal deficits noted Skin: No rash or skin lesions. Psychiatric: Cooperative. Nonsuicidal Musculoskeletal: No joint swelling or deformity. Normal range of motion. - Labs CBC & Chem 7: 01/25/18 07:15 01/25/18 07:15 Labs: Abnormal Lab Results - Last 24 Hours (Table) 01/25/18 01/25/18 Range/Units 07:15 07:15 WBC 11.4 H (3.8-10.6) k/uL RBC 3.12 L (4.30-5.90) m/uL Hgb 9.4 L (13.0-17.5) gm/dL Hct 28.6 L (39.0-53.0) % RDW 15.9 H (11.5-15.5) % Neutrophils # 9.6 H (1.3-7.7) k/uL Lymphocytes # 0.8 L (1.0-4.8) k/uL Sodium 135 L (137-145) mmol/L Potassium 5.9 H (3.5-5.1) mmol/L Chloride 95 L (98-107) mmol/L BUN 32 H (9-20) mg/dL Creatinine 7.74 H* (0.66-1.25) mg/dL Microbiology - Last 24 Hours (Table) 01/24/18 14:31 Gram Stain - Preliminary Pleural Fluid Body Fluid Culture - Preliminary 01/24/18 00:56 Blood Culture - Preliminary Blood No Growth after 24 hours Assessment and Plan Assessment: Shortness of breath due to left large pleural effusion. Possible parapneumonic effusion is being considered. With the recent pneumonic infiltrate of the lingula Large pericardial effusion Pneumonia with bilateral lower lobe pulmonary infiltrates. Recent hospitalization for status of her progress and acute respiratory failure with pneumonia Hypertension Hyperlipidemia ESRD on hemodialysis. 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 Pulmonary and nephrology is following. Patient underwent thoracentesis with 1 L fluid removal. Follow-up fluid analysis. Hemodialysis as per nephrology. CT surgery evaluation is pending at this time for possible pericardiocentesis Continue with home medications and further recommendations based on the clinical course. Prognosis is guarded with multiple medical problems and comorbid conditions. Time with Patient: Greater than 30
[2018-01-26] MEDS: IPRATROPIUM-ALBUTEROL 3 ML NEB INHALATION SCH ×4 (07:12→20:43)
[2018-01-26] MEDS: amLODIPine 5 MG TAB PO SCH ×2 (08:04→20:36)
[2018-01-26] MEDS: CALCIUM ACETATE 667 MG CAP PO SCH ×3 (08:04→17:11)
[2018-01-26] MEDS: levETIRAcetam 500 MG TAB PO SCH ×2 (08:05→20:36)
[2018-01-26] MEDS: ENOXAPARIN 30 MG/0.3 ML SYRINGE SQ SCH (08:05)
[2018-01-26] MEDS: ATORVASTATIN 20 MG TAB PO SCH (08:05)
[2018-01-26] MEDS: ASPIRIN 325 MG TAB PO SCH (08:05)
[2018-01-26] MEDS: GABAPENTIN 100 MG CAP PO SCH ×2 (08:05→20:36)
[2018-01-26] MEDS: SODIUM BICARBONATE TAB 650 MG TAB PO SCH ×2 (08:06→20:36)
[2018-01-26] MEDS: SPIRONOLACTONE 25 MG TAB PO SCH (08:06)
[2018-01-26] MEDS: NICOTINE 14MG/24HR PATCH TRANSDERM SCH (08:34)
[2018-01-26 08:53] LABS: Calcium 9.1 mg/dL (8.4-10.2); Potassium 4.3 mmol/L (3.5-5.1)
[2018-01-26] MEDS ORDERED: LEVOFLOXACIN 500MG-D5W PMX 500 MG in DEXTROSE/WATER 1 100ML.BAG IVPB SCH (09:00)
[2018-01-26] MEDS: PIPERACILLIN-TAZOBACTAM 3.375 GM in DEXTROSE/WATER 1 50ML.BAG IVPB SCH ×2 (10:02→16:05)
--- NOTE | 2018-01-26 11:10 | P.PN ---
Subjective Progress Note Date: 01/26/18 Seen and examined for the follow-up of end-stage renal disease. Lying comfortable in the bed, breathing better. Objective - Vital Signs Vital signs: Vital Signs Temp 98.1 F 01/26/18 07:00 Pulse 108 H 01/26/18 07:22 Resp 18 01/26/18 07:00 BP 163/100 01/26/18 07:00 Pulse Ox 100 01/26/18 07:00 Intake & Output 01/25/18 01/26/18 01/26/18 17:59 06:59 18:59 Intake Total 200 Output Total Balance 200 Intake: Intake, IV Titration Amount Piperacillin-Tazobactam 3 .375 gm In Dextrose/Water 1 50ml.bag @ 12.5 mls/hr IVPB Q12H [facility] Rx#: [id number] Vancomycin 1,250 mg In Sodium Chloride 0.9% 250 ml @ 125 mls/hr IVPB ONCE ONE Rx#:[id number] Oral 200 Output: Urine Other: Voiding Method Toilet Urinal # Voids - Exam Lying in bed no acute distress S1-S2 heard Lungs clear Forearm fistula right arm - Labs CBC & Chem 7: 01/25/18 07:15 01/26/18 07:52 Labs: Abnormal Lab Results - Last 24 Hours (Table) 01/26/18 Range/Units 07:52 Chloride 96 L (98-107) mmol/L BUN 26 H (9-20) mg/dL Creatinine 6.23 H* (0.66-1.25) mg/dL Microbiology - Last 24 Hours (Table) 01/24/18 00:56 Blood Culture - Preliminary Blood No Growth after 48 hours 01/24/18 14:31 Gram Stain - Preliminary Pleural Fluid Body Fluid Culture - Preliminary Assessment and Plan Assessment: Impression: #1 end-stage renal disease on hemodialysis TTS. #2 volume overload. #3 right pleural effusion status post thoracentesis #4 anemia with C daily #5 CKDwith metabolic bone disease #6 possible pneumonia Recommendations: #1 hemodialysis today. #2 CKD medications #3 antibiotics per primary team Stable from nephrology point of view to be discharged to be followed up in the dialysis unit on Saturday.
--- NOTE | 2018-01-26 12:31 | P.CRDCN ---
History of Present Illness Consult date: 01/26/18 History of present illness: Mr. Eng is a pleasant 47-year-old male past medical history significant for hypertension, end-stage renal disease on hemodialysis, seizure disorder and chronic tobacco abuse. He denies history of coronary artery disease and is never seen a podiatry professor for any reason. We have been asked to see him in consultation for evidence of a pericardial effusion. He initially presented to the hospital on Saturday with complaints of fever and shortness of breath. This had been going on for a couple days prior to arrival. He also complains of precordial chest pain worse with inspiration and movement. Chest xray on admission reveals opacification and consolidation of left lung. CT chest showed bilateral pleural effusion left greater than right and large pericardial effusion. He was admitted to the hospital with pneumonia in consultation for thoracentesis. This was performed and 1000 mL of fluid was removed. Echocardiogram was reviewed and revealed evidence of a moderate pericardial effusion with chronic septi and granulation throughout with no evidence of cardiac tamponade. Cardiothoracic surgery has been consulted for possible drainage. EKG on arrival reveals sinus mechanism with no acute ST or T-wave abnormalities. There is T-wave inversions noted in the lateral leads. This is consistent with old EKG. Repeat chest x-ray performed yesterday morning reveals persistent large pericardial effusion, persistent small left pleural effusion and associated left lower lung infiltrate. Laboratory data reviewed, WBC 11.4, hemoglobin 9.4, platelets 354, potassium 4.3 , creatinine 6.23, magnesium on admission 2.1, troponin negative 1, proBNP 19, 900. Current cardiac medications include clonidine 0.3 mg twice a day, Norvasc 5 mg twice a day, Aldactone 50 mg daily, lisinopril 20 mg twice a day, labetalol 400 mg twice a day, atorvastatin 20 mg daily and aspirin 325 mg daily. Most recent echocardiogram performed in June 2017 reveals preserved left ventricular systolic function with ejection fraction 55-60%, moderately dilated left atrium and mildly thickened aortic and mitral valve. At the time of my exam: CONSTITUTIONAL: Denies fever. Denies chills. EYES: Denies blurred vision. Denies vision changes. Denies eye pain. EARS, NOSE, MOUTH & THROAT: Denies headache. Denies sore throat. Denies ear pain. CARDIOVASCULAR: Denies chest pain. Complains of shortness of breath. Denies orthopnea. Denies PND. Denies palpitations. RESPIRATORY: Denies cough. GASTROINTESTINAL: Denies abdominal pain. Denies diarrhea. Denies constipation. Denies nausea. Denies vomiting. MUSCULOSKELETAL: Denies myalgias. INTEGUMENTARY: Denies pruitis. Denies rash. NEUROLOGIC: Denies numbness. Denies tingling. Denies weakness. PSYCHIATRIC: Denies anxiety. Denies depression. ENDOCRINE: Denies fatigue. Denies weight change. Denies polydipsia. Denies polyurina. GENITOURINARY: Denies burning, hematuria or urgency with micturation. HEMATOLOGIC: Denies history of anemia. Denies bleeding. Blood pressure 163/100 heart rate 108 afebrile. Most recent fever 100F at 7 AM yesterday. Maintaining oxygen saturations on nasal cannula 2 nasal cannula GENERAL: Well-appearing, well-nourished and in no acute distress. NECK: Supple without JVD or thyromegaly. LUNGS: Course rhonchi with bibasilar Rales appreciated. Dullness to the left lung. No wheezes. HEART: Regular rate and rhythm with systolic ejection murmur at the base, no rubs or gallops. S1 and S2 heard. EXTREMITIES: Normal range of motion, no edema. No clubbing or cyanosis. Peripheral pulses intact and strong. ASSESSMENT 1. Moderate pericardial effusion without evidence of tamponade. 2. Pleural effusion s/p thoracentesis 3. End stage renal disease on HD 4. Pneumonia 5. Hypertension 6. Chronic tobacco abuse PLAN Continue with medical management per primary team. Follow up with Cardiothoracic surgery for evaluation of possible drainage of pericardial effusion. Clinically he is stable and in no acute distress. Nephrology to manage blood pressure. Thank you kindly for this consultation. Nurse Practitioner note has been reviewed, I agree with a documented findings and plan of care. Patient was seen and examined. Past Medical History Past Medical History: Hypertension, Musculoskeletal Disorder, Renal Disease, Seizure Disorder Additional Past Medical History / Comment(s): End-stage renal disease on hemodialysis History of Any Multi-Drug Resistant Organisms: None Reported Past Surgical History: Orthopedic Surgery Additional Past Surgical History / Comment(s): fistula for dialysis lithotripsy kidney stents Past Anesthesia/Blood Transfusion Reactions: No Reported Reaction Past Psychological History: No Psychological Hx Reported Additional Psychological History / Comment(s): Pt resides with his spouse of 17 yrs. He no longer drives d/t seizures. His spouse takes him to appts or his sister does. He is otherwise independent. His spouse states since his stroke, he is "more carmona". Smoking Status: Current every day smoker Past Alcohol Use History: None Reported Additional Past Alcohol Use History / Comment(s): Pt started smoking in 1984 and is in the process of cutting down to quit. Past Drug Use History: None Reported - Past Family History Father Family Medical History: Cancer, CVA/TIA Additional Family Medical History / Comment(s): Father had lymphoma. He had a CVA Mother Family Medical History: CVA/TIA Additional Family Medical History / Comment(s): Mother had a CVA. Medications and Allergies Home Medications Medication Instructions Recorded Confirmed Type Calcium Acetate [PhosLo] 667 mg PO TID-W/MEALS 11/22/16 01/24/18 History Sodium Bicarbonate Tab 650 mg PO BID 11/22/16 01/24/18 History Lisinopril [Zestril] 20 mg PO BID 06/14/17 01/24/18 History Ergocalciferol (Vitamin D2) 50,000 unit PO Q30D 07/21/17 01/24/18 History [Vitamin D2] Methocarbamol [Robaxin] 750 mg PO TID PRN 07/22/17 01/24/18 History Aspirin 325 mg PO DAILY #30 tab 07/27/17 01/24/18 Rx Atorvastatin [Lipitor] 20 mg PO DAILY #30 tablet 07/27/17 01/24/18 Rx Melatonin 5 mg PO HS tab 07/27/17 01/24/18 Rx QUEtiapine [SEROquel] 25 mg PO HS #30 tab 07/27/17 01/24/18 Rx Sevelamer [Renvela] 1,600 mg PO TID-W/MEALS #0 tab 07/27/17 01/24/18 Rx amLODIPine [Norvasc] 5 mg PO BID tab 07/27/17 01/24/18 Rx Gabapentin [Neurontin] 100 mg PO BID #60 cap 12/25/17 01/24/18 Rx Ipratropium-Albuterol Nebulize 3 ml INHALATION RT-QID #120 12/25/17 01/24/18 Rx [Duoneb 0.5 mg-3 mg/3 ml Soln] ampul.neb Labetalol [Trandate] 400 mg PO BID #120 tab 12/25/17 01/24/18 Rx Nicotine 14Mg/24Hr Patch [Habitrol] 1 patch TRANSDERM DAILY #30 patch 12/25/17 01/24/18 Rx levETIRAcetam [Keppra] 1,000 mg PO Q12HR #120 tab 12/25/17 01/24/18 Rx cloNIDine HCL 0.3 mg PO BID 01/13/18 01/24/18 History Spironolactone [Spironolactone] 50 mg PO DAILY 01/24/18 01/24/18 History Allergies Allergy/AdvReac Type Severity Reaction Status Date / Time No Known Allergies Allergy Verified 01/13/18 09:11 Physical Exam Vitals: Vital Signs Temp Pulse Pulse Resp BP Pulse Ox 01/26/18 07:22 108 H 01/26/18 07:12 100 01/26/18 07:00 98.1 F 113 H 18 163/100 100 01/25/18 22:45 99.8 F H 99 16 159/87 94 L 01/25/18 20:40 103 H 01/25/18 20:29 101 H 01/25/18 15:33 100 01/25/18 15:23 104 H 01/25/18 15:00 99.3 F 104 H 18 160/88 92 L 01/25/18 10:59 104 H 01/25/18 10:49 108 H Intake and Output 01/25/18 01/26/18 01/26/18 21:59 06:59 14:59 Intake Total 200 Balance 200 Intake: Intake, IV Titration Amount Piperacillin-Tazobactam 3 .375 gm In Dextrose/Water 1 50ml.bag @ 12.5 mls/hr IVPB Q12H [facility] Rx#: [id number] Oral 200 Other: Voiding Method Toilet Urinal # Voids Results 01/25/18 07:15 01/26/18 07:52 Comprehensive Metabolic Panel 01/26/18 Range/Units 07:52 Sodium 138 (137-145) mmol/L Potassium 4.3 (3.5-5.1) mmol/L Chloride 96 L (98-107) mmol/L Carbon Dioxide 27 (22-30) mmol/L BUN 26 H (9-20) mg/dL Creatinine 6.23 H* (0.66-1.25) mg/dL Glucose 88 (74-99) mg/dL Calcium 9.1 (8.4-10.2) mg/dL Current Medications Generic Name Dose Route Start Last Admin Trade Name Freq PRN Reason Stop Dose Admin Acetaminophen 650 mg 01/24/18 04:25 01/25/18 22:18 Tylenol Tab PO 650 mg Q6HR PRN Administration Fever and/ or Pain Albuterol/Ipratropium 3 ml 01/24/18 08:00 01/26/18 07:12 Duoneb 0.5 Mg-3 Mg/3 Ml Soln INHALATION 3 ml RT-QID [facility] Administration Amlodipine Besylate 5 mg 01/24/18 21:00 01/26/18 08:04 Norvasc PO 5 mg BID [facility] Administration Aspirin 325 mg 01/24/18 10:45 01/26/18 08:05 Aspirin PO 325 mg DAILY [facility] Administration Atorvastatin Calcium 20 mg 01/24/18 10:45 01/26/18 08:05 Lipitor PO 20 mg DAILY [facility] Administration Calcium Acetate 667 mg 01/24/18 12:30 01/26/18 08:04 Phoslo PO 667 mg TID-W/MEALS [facility] Administration Darbepoetin Jim 40 mcg 01/24/18 15:00 01/24/18 16:22 Aranesp SQ 40 mcg Q7D [facility] Administration Enoxaparin Sodium 30 mg 01/25/18 09:00 01/26/18 08:05 Lovenox SQ 30 mg DAILY [facility] Administration Ergocalciferol 50,000 unit 02/15/18 12:00 Vitamin D2 PO Q30D [facility] Gabapentin 100 mg 01/24/18 21:00 01/26/18 08:05 Neurontin PO 100 mg BID [facility] Administration Piperacillin/Tazobactam/ 50 mls @ 12.5 mls/hr 01/24/18 18:00 01/26/18 10:02 Dextrose 3.375 gm/ IV Solution IVPB Not Given Q12H [facility] Levofloxacin 500 mg/ IV 100 mls @ 100 mls/hr 01/26/18 09:00 01/26/18 09:57 Solution IVPB 100 mls/hr Q48H [facility] Administration Levetiracetam 1,000 mg 01/24/18 21:00 01/26/18 08:05 Keppra PO 1,000 mg Q12HR [facility] Administration Melatonin 5 mg 01/24/18 21:00 01/25/18 22:11 Melatonin PO 5 mg HS [facility] Administration Methocarbamol 750 mg 01/24/18 10:42 Robaxin PO TID PRN MODERATE MUSCLE PAIN Miscellaneous Information 1 each 01/24/18 02:00 Pharmacy To Dose Iv Vancomycin MISCELLANE DIRECTED PRN Per Protocol Miscellaneous Information 1 each 01/24/18 03:23 Pneumonia Protocol Utilized PO ONCE PRN Per Protocol Nicotine 1 patch 01/24/18 10:45 01/26/18 08:34 Habitrol 14mg/24hr Patch TRANSDERM Not Given DAILY [facility] Quetiapine Fumarate 25 mg 01/24/18 21:00 01/25/18 22:11 Seroquel PO 25 mg HS [facility] Administration Sodium Bicarbonate 650 mg 01/24/18 10:45 01/26/18 08:06 Sodium Bicarbonate Tab PO 650 mg BID [facility] Administration Spironolactone 50 mg 01/24/18 10:45 01/26/18 08:06 Aldactone PO 50 mg DAILY [facility] Administration Intake and Output 01/25/18 01/26/18 01/26/18 21:59 06:59 14:59 Intake Total 200 Balance 200 Intake: Intake, IV Titration Amount Piperacillin-Tazobactam 3 .375 gm In Dextrose/Water 1 50ml.bag @ 12.5 mls/hr IVPB Q12H [facility] Rx#: [id number] Oral 200 Other: Voiding Method Toilet Urinal # Voids 01/25/18 07:15 01/26/18 07:52
--- NOTE | 2018-01-26 15:21 | P.CRDCN ---
History of Present Illness History of present illness: Impression Moderate pericardial effusion Loculated effusion with fibrinous material and multiple septae End-stage kidney disease on hemodialysis current smoker hypertension Pleural effusion Suggest In view of organization of the pericardial effusion, consider open pericardiectomy rather than pericardiocentesis with needle aspiration Past Medical History Past Medical History: Hypertension, Musculoskeletal Disorder, Renal Disease, Seizure Disorder Additional Past Medical History / Comment(s): End-stage renal disease on hemodialysis History of Any Multi-Drug Resistant Organisms: None Reported Past Surgical History: Orthopedic Surgery Additional Past Surgical History / Comment(s): fistula for dialysis lithotripsy kidney stents Past Anesthesia/Blood Transfusion Reactions: No Reported Reaction Past Psychological History: No Psychological Hx Reported Additional Psychological History / Comment(s): Pt resides with his spouse of 17 yrs. He no longer drives d/t seizures. His spouse takes him to [employer] or his sister does. He is otherwise independent. His spouse states since his stroke, he is "more carmona". Smoking Status: Current every day smoker Past Alcohol Use History: None Reported Additional Past Alcohol Use History / Comment(s): Pt started smoking in 1984 and is in the process of cutting down to quit. Past Drug Use History: None Reported - Past Family History Father Family Medical History: Cancer, CVA/TIA Additional Family Medical History / Comment(s): Father had lymphoma. He had a CVA Mother Family Medical History: CVA/TIA Additional Family Medical History / Comment(s): Mother had a CVA. Medications and Allergies Home Medications Medication Instructions Recorded Confirmed Type Calcium Acetate [PhosLo] 667 mg PO TID-W/MEALS 11/22/16 01/24/18 History Sodium Bicarbonate Tab 650 mg PO BID 11/22/16 01/24/18 History Lisinopril [Zestril] 20 mg PO BID 06/14/17 01/24/18 History Ergocalciferol (Vitamin D2) 50,000 unit PO Q30D 07/21/17 01/24/18 History [Vitamin D2] Methocarbamol [Robaxin] 750 mg PO TID PRN 07/22/17 01/24/18 History Aspirin 325 mg PO DAILY #30 tab 07/27/17 01/24/18 Rx Atorvastatin [Lipitor] 20 mg PO DAILY #30 tablet 07/27/17 01/24/18 Rx Melatonin 5 mg PO HS tab 07/27/17 01/24/18 Rx QUEtiapine [SEROquel] 25 mg PO HS #30 tab 07/27/17 01/24/18 Rx Sevelamer [Renvela] 1,600 mg PO TID-W/MEALS #0 tab 07/27/17 01/24/18 Rx amLODIPine [Norvasc] 5 mg PO BID tab 07/27/17 01/24/18 Rx Gabapentin [Neurontin] 100 mg PO BID #60 cap 12/25/17 01/24/18 Rx Ipratropium-Albuterol Nebulize 3 ml INHALATION RT-QID #120 12/25/17 01/24/18 Rx [Duoneb 0.5 mg-3 mg/3 ml Soln] ampul.neb Labetalol [Trandate] 400 mg PO BID #120 tab 12/25/17 01/24/18 Rx Nicotine 14Mg/24Hr Patch [Habitrol] 1 patch TRANSDERM DAILY #30 patch 12/25/17 01/24/18 Rx levETIRAcetam [Keppra] 1,000 mg PO Q12HR #120 tab 12/25/17 01/24/18 Rx cloNIDine HCL 0.3 mg PO BID 01/13/18 01/24/18 History Spironolactone [Spironolactone] 50 mg PO DAILY 01/24/18 01/24/18 History Allergies Allergy/AdvReac Type Severity Reaction Status Date / Time No Known Allergies Allergy Verified 01/13/18 09:11 Physical Exam Vitals: Vital Signs Temp Pulse Pulse Resp BP Pulse Ox 01/26/18 14:43 98.9 F 117 H 18 137/87 95 01/26/18 12:22 104 H 01/26/18 12:07 104 H 01/26/18 07:22 108 H 01/26/18 07:12 100 01/26/18 07:00 98.1 F 113 H 18 163/100 100 01/25/18 22:45 99.8 F H 99 16 159/87 94 L 01/25/18 20:40 103 H 01/25/18 20:29 101 H 01/25/18 15:33 100 01/25/18 15:23 104 H 01/25/18 15:00 99.3 F 104 H 18 160/88 92 L Intake and Output 01/26/18 01/26/18 01/26/18 06:59 14:59 22:59 Intake Total 900 Balance 900 Intake: Intake, IV Titration 100 Amount Levofloxacin 500Mg-D5w 100 Pmx 500 mg In Dextrose/ Water 1 100ml.bag @ 100 mls/hr IVPB Q48H [facility] Rx#: [id number] Piperacillin-Tazobactam 3 .375 gm In Dextrose/Water 1 50ml.bag @ 12.5 mls/hr IVPB Q12H [facility] Rx#: [id number] Oral 800 Other: Voiding Method Toilet Urinal # Voids Results 01/25/18 07:15 01/26/18 07:52 Comprehensive Metabolic Panel 01/26/18 Range/Units 07:52 Sodium 138 (137-145) mmol/L Potassium 4.3 (3.5-5.1) mmol/L Chloride 96 L (98-107) mmol/L Carbon Dioxide 27 (22-30) mmol/L BUN 26 H (9-20) mg/dL Creatinine 6.23 H* (0.66-1.25) mg/dL Glucose 88 (74-99) mg/dL Calcium 9.1 (8.4-10.2) mg/dL Current Medications Generic Name Dose Route Start Last Admin Trade Name Freq PRN Reason Stop Dose Admin Acetaminophen 650 mg 01/24/18 04:25 01/25/18 22:18 Tylenol Tab PO 650 mg Q6HR PRN Administration Fever and/ or Pain Albuterol/Ipratropium 3 ml 01/24/18 08:00 01/26/18 12:07 Duoneb 0.5 Mg-3 Mg/3 Ml Soln INHALATION 3 ml RT-QID [facility] Administration Amlodipine Besylate 5 mg 01/24/18 21:00 01/26/18 08:04 Norvasc PO 5 mg BID [facility] Administration Aspirin 325 mg 01/24/18 10:45 01/26/18 08:05 Aspirin PO 325 mg DAILY [facility] Administration Atorvastatin Calcium 20 mg 01/24/18 10:45 01/26/18 08:05 Lipitor PO 20 mg DAILY [facility] Administration Calcium Acetate 667 mg 01/24/18 12:30 01/26/18 11:46 Phoslo PO 667 mg TID-W/MEALS [facility] Administration Darbepoetin Jim 40 mcg 01/24/18 15:00 01/24/18 16:22 Aranesp SQ 40 mcg Q7D [facility] Administration Enoxaparin Sodium 30 mg 01/25/18 09:00 01/26/18 08:05 Lovenox SQ 30 mg DAILY [facility] Administration Ergocalciferol 50,000 unit 02/15/18 12:00 Vitamin D2 PO Q30D [facility] Gabapentin 100 mg 01/24/18 21:00 01/26/18 08:05 Neurontin PO 100 mg BID [facility] Administration Piperacillin/Tazobactam/ 50 mls @ 12.5 mls/hr 01/24/18 18:00 01/26/18 10:02 Dextrose 3.375 gm/ IV Solution IVPB Not Given Q12H [facility] Levofloxacin 500 mg/ IV 100 mls @ 100 mls/hr 01/26/18 09:00 01/26/18 09:57 Solution IVPB 100 mls/hr Q48H [facility] Administration Levetiracetam 1,000 mg 01/24/18 21:00 01/26/18 08:05 Keppra PO 1,000 mg Q12HR [facility] Administration Melatonin 5 mg 01/24/18 21:00 01/25/18 22:11 Melatonin PO 5 mg HS [facility] Administration Methocarbamol 750 mg 01/24/18 10:42 Robaxin PO TID PRN MODERATE MUSCLE PAIN Miscellaneous Information 1 each 01/24/18 02:00 Pharmacy To Dose Iv Vancomycin MISCELLANE DIRECTED PRN Per Protocol Miscellaneous Information 1 each 01/24/18 03:23 Pneumonia Protocol Utilized PO ONCE PRN Per Protocol Nicotine 1 patch 01/24/18 10:45 01/26/18 08:34 Habitrol 14mg/24hr Patch TRANSDERM Not Given DAILY [facility] Quetiapine Fumarate 25 mg 01/24/18 21:00 01/25/18 22:11 Seroquel PO 25 mg HS [facility] Administration Sodium Bicarbonate 650 mg 01/24/18 10:45 01/26/18 08:06 Sodium Bicarbonate Tab PO 650 mg BID [facility] Administration Spironolactone 50 mg 01/24/18 10:45 01/26/18 08:06 Aldactone PO 50 mg DAILY [facility] Administration Intake and Output 01/26/18 01/26/18 01/26/18 06:59 14:59 22:59 Intake Total 900 Balance 900 Intake: Intake, IV Titration 100 Amount Levofloxacin 500Mg-D5w 100 Pmx 500 mg In Dextrose/ Water 1 100ml.bag @ 100 mls/hr IVPB Q48H [facility] Rx#: [id number] Piperacillin-Tazobactam 3 .375 gm In Dextrose/Water 1 50ml.bag @ 12.5 mls/hr IVPB Q12H [facility] Rx#: [id number] Oral 800 Other: Voiding Method Toilet Urinal # Voids 01/25/18 07:15 01/26/18 07:52
--- NOTE | 2018-01-26 16:01 | P.PN ---
Subjective Progress Note Date: 01/26/18 Principal diagnosis: Pericardial effusion, end-stage renal disease on hemodialysis, hypertension, history of cerebrovascular accident July 2017, history of seizure disorder history of status epilepticus, current tobacco dependence, chronic thrombocytopenia, chronic anemia, nephrolithiasis. Status post left-sided thoracentesis with 1000 ml of pleural fluid removed on 01/24/2018. The patient is currently lying in bed with his head elevated. His is at his bedside. He is in no acute distress. He denies any complaints of pain or shortness of breath. 2-D echocardiogram results pending. Oxygen saturations are 95% on 2 L nasal cannula. Objective - Vital Signs Vital signs: Vital Signs Temp 98.9 F 01/26/18 14:43 Pulse 117 H 01/26/18 14:43 Resp 18 01/26/18 14:43 BP 137/87 01/26/18 14:43 Pulse Ox 95 01/26/18 14:43 Intake & Output 01/25/18 01/26/18 01/26/18 17:59 06:59 18:59 Intake Total 900 Output Total Balance 900 Intake: Intake, IV Titration 100 Amount Levofloxacin 500Mg-D5w 100 Pmx 500 mg In Dextrose/ Water 1 100ml.bag @ 100 mls/hr IVPB Q48H [facility] Rx#: [id number] Piperacillin-Tazobactam 3 .375 gm In Dextrose/Water 1 50ml.bag @ 12.5 mls/hr IVPB Q12H [facility] Rx#: [id number] Vancomycin 1,250 mg In Sodium Chloride 0.9% 250 ml @ 125 mls/hr IVPB ONCE ONE Rx#:[id number] Oral 800 Output: Urine Other: Voiding Method Toilet Urinal # Voids - Constitutional General appearance: Present: cooperative, no acute distress - EENT ENT: Present: hearing grossly normal - Neck Details: Neck is supple, bilateral JVD is present. No lymphadenopathy. - Respiratory Details: Lung sounds are essentially clear throughout, diminished to his bilateral bases. Respirations are symmetrical and nonlabored. Oxygen saturation are 95% on 2 L nasal cannula. - Cardiovascular Details: Regular rhythm and tachycardic rate. S1 and S2 present, positive systolic murmur 3/6 present. No edema present. Peripheral pulses palpable. - Gastrointestinal Gastrointestinal Comment(s): Abdomen is soft, nontender and nondistended. Active bowel sounds to all 4 abdominal quadrants. Passing flatus. - Genitourinary Genitourinary Comment(s): Patient voiding to urinal. Right arm AV fistula with good thrill and bruit. Current dialysis schedule Saturday, and Saturday. - Integumentary Integumentary Comment(s): Skin is warm and dry. No clubbing or cyanosis present. - Neurologic Neurologic: Present: CNII-XII intact - Musculoskeletal Musculoskeletal: Present: gait normal, strength equal bilaterally - Psychiatric Psychiatric: Present: A&O x's 3, appropriate affect, intact judgment & insight - Allied health notes Allied health notes reviewed: nursing - Labs CBC & Chem 7: 01/25/18 07:15 01/26/18 07:52 Labs: Abnormal Lab Results - Last 24 Hours (Table) 01/26/18 Range/Units 07:52 Chloride 96 L (98-107) mmol/L BUN 26 H (9-20) mg/dL Creatinine 6.23 H* (0.66-1.25) mg/dL Microbiology - Last 24 Hours (Table) 01/24/18 00:56 Blood Culture - Preliminary Blood No Growth after 48 hours 01/24/18 14:31 Gram Stain - Preliminary Pleural Fluid Body Fluid Culture - Preliminary - Imaging and Cardiology 2-D echocardiogram results pending. Assessment and Plan (1) History of CVA (cerebrovascular accident) Current Visit: Yes Status: Acute Code(s): Z86.73 - PRSNL HX OF TIA (TIA), AND CEREB INFRC W/O RESID DEFICITS SNOMED Code(s): 357569018 (2) Pericardial effusion Current Visit: Yes Status: Acute Code(s): I31.3 - PERICARDIAL EFFUSION ( NONINFLAMMATORY) SNOMED Code(s): 008620201 (3) Pleural effusion, left Current Visit: Yes Status: Acute Code(s): J90 - PLEURAL EFFUSION, NOT ELSEWHERE CLASSIFIED SNOMED Code(s): 41663702 (4) End stage renal disease on dialysis Current Visit: Yes Status: Chronic Code(s): N18.6 - END STAGE RENAL DISEASE ; Z99.2 - DEPENDENCE ON RENAL DIALYSIS SNOMED Code(s): 272866361 (5) Hypertension Current Visit: Yes Status: Chronic Code(s): I10 - ESSENTIAL (PRIMARY) HYPERTENSION SNOMED Code(s): 04637417 (6) Tobacco dependence Current Visit: Yes Status: Chronic Code(s): F17.200 - NICOTINE DEPENDENCE, UNSPECIFIED, UNCOMPLICATED SNOMED Code(s): 21224235 Plan: 1. Dr. Solis has seen and examined the patient. He discussed with the patient possible VATS procedure with pericardial window versus possible triple lumen catheter for pericardiocentesis drainage. 2. Dialysis management per nephrology. 3. Medical management per primary care service. 4. Awaiting 2-D echocardiogram to be completed. 5. More recommendations to follow as patient progresses in his care. Time with Patient: Greater than 30
--- NOTE | 2018-01-26 16:21 | P.PN ---
Subjective Progress Note Date: 01/26/18 47-year-old male patient, presented to the hospital because of worsening shortness of breath. The patient has multiple medical problems and comorbidities. The patient was in the hospital back in and at that time the patient was in acute respiratory failure and aspiration pneumonia was suspected knowing that the patient was having generalized tonic-clonic seizures. The patient at that time presented to the hospital post ictal with altered mentation and he was combative. He was treated and he was stabilized. He was placed on antiepileptic medication. He is known also to have end-stage renal disease and he is on hemodialysis 3 times a week, TTS, and he has been very compliant and he has not missed any of his dialysis sessions. 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 Upon discharge, the patient was released home on Augmentin 875 mg 1 tablet by mouth twice a day. He was also receiving Keppra for his seizure activity. He was seen in our office on 01/13/2018 and the patient had a new infiltrate in the lingula and the left lower lobe and there was obvious improved aeration of the right lower lobe. Small bilateral pleural effusion was noted. Over the next 1-2 week, the patient's condition got worse and he came into the hospital yesterday with a large left-sided pleural effusion. He did spike a temperature earlier and currently is afebrile. His white cell count is not elevated at 10.7. Rest of the electrolytes are consistent with his renal failure knowing that the patient a BUN of 40 with a creatinine of 10.5 and his potassium level is at 4.6. Currently is on a combination of Zosyn and vancomycin. Based on this large left-sided pleural effusion, a pulmonary consultation was requested. I saw this patient. I did a side thoracentesis during which I removed a total of 1000 ML's of pleural fluid. I should be able to take more fluids yet the patient experienced increased pain and pleurisy along the left lung and I had to stop the procedure. I'm sure there is more fluid left within his left pleural space. A subsequent chest x-ray showed no evidence of any pneumothorax and there is some limited improvement in the aeration of the left lung with residual atelectasis/consolidation/effusion the left lung base. The pleural fluid was sent for analysis. On 01/25/2018 I'm seeing this patient for a follow-up. The patient is doing slightly better compared to yesterday. The patient underwent a thoracentesis yesterday and after removing around 1 L of pleural fluid, the patient became symptomatic and he developed pleuritic left sided chest pain that was brief and ultimately recovered. I had to abort the procedure. Chest x-ray showed persistent opacification of left lung base and based on that I performed a CAT scan of the chest which showed a large pericardial effusion, residual located left-sided pleural effusion and left lower lobe consolidation/atelectasis. Based on the CAT scan findings, an echocardiogram was ordered and the patient was asked to be seen by cardiology and cardiothoracic surgery. He is currently on broad-spectrum antibiotics. He is afebrile. He underwent dialysis yesterday and nephrology is on the case regarding his dialysis schedule. Suspect a parapneumonic complicated left-sided pleural effusion special that the pleural fluid that was drained from the left side showed elevated LDH and protein. We are awaiting the cultures. I also awaiting the fluid cytology. The white cell count is not elevated. The creatinine is down to 7.7. Potassium level is at 5.9 and the patient will have a follow-up with nephrology. On 01/26/2018, the patient is being seen for a follow-up. The patient is a complicated left lung pneumonia with parapneumonic effusion that was drained and the fluid was an exudate. Subsequent CAT scan of the chest showed residual loculated left-sided pleural effusion and a large pericardial effusion. Consult cardiology. Consult cardiothoracic surgery. Discussed the case with the surgeon. The patient will need a window and possibly a VATS tomorrow in regards to these abnormalities. Echocardiogram was completed and there is no evidence of temporal not. Final report is not available to me at this point. Meanwhile, the pleural fluid cultures of been negative and the patient on broad- spectrum antibiotics. The patient received dialysis yesterday. No dialysis for today. He usually gets dialyzed 3 times a week, Tuesdays and Saturdays. White cell count is not elevated. The patient has been afebrile hemodynamically stable. Potassium is at 4.3. Objective - Vital Signs Vital signs: Vital Signs Temp 98.9 F 01/26/18 14:43 Pulse 104 H 01/26/18 16:16 Resp 18 01/26/18 15:44 BP 137/87 01/26/18 14:43 Pulse Ox 95 01/26/18 14:43 Intake & Output 01/25/18 01/26/18 01/26/18 17:59 06:59 18:59 Intake Total 900 Output Total Balance 900 Intake: Intake, IV Titration 100 Amount Levofloxacin 500Mg-D5w 100 Pmx 500 mg In Dextrose/ Water 1 100ml.bag @ 100 mls/hr IVPB Q48H [facility] Rx#: [id number] Piperacillin-Tazobactam 3 .375 gm In Dextrose/Water 1 50ml.bag @ 12.5 mls/hr IVPB Q12H [facility] Rx#: [id number] Vancomycin 1,250 mg In Sodium Chloride 0.9% 250 ml @ 125 mls/hr IVPB ONCE ONE Rx#:[id number] Oral 800 Output: Urine Other: Voiding Method Toilet Urinal # Voids - Exam Gen. appearance the patient is in mild degree of respiratory distress and is calm and comfortable. He is not using excessive muscle breathing.Head exam was generally normal. There was no scleral icterus or corneal arcus. Mucous membranes were moist.Neck was supple and without jugular venous distension, thyromegaly, or carotid bruits. Carotids were easily palpable bilaterally. There was no adenopathy. Lung sounds are diminished in the left lung base along with dullness to percussion. Breath sounds in the right are within normal limits.Cardiac exam revealed the PMI to be normally situated and sized. The rhythm was regular and no extrasystoles were noted during several minutes of auscultation. The first and second heart sounds were normal and physiologic splitting of the second heart sound was noted. There is a systolic ejection murmur grade 3/6 murmurs, rubs, clicks, or gallops.Abdominal exam revealed normal bowel sounds. The abdomen was soft, non-tender, and without masses, organomegaly, or appreciable enlargement of the abdominal aorta. Extremities revealed a right upper extremity functional AV fistula.Examination of the skin revealed no evidence of significant rashes, suspicious appearing nevi or other concerning lesions. - Labs CBC & Chem 7: 01/25/18 07:15 01/26/18 07:52 Labs: Abnormal Lab Results - Last 24 Hours (Table) 01/26/18 Range/Units 07:52 Chloride 96 L (98-107) mmol/L BUN 26 H (9-20) mg/dL Creatinine 6.23 H* (0.66-1.25) mg/dL Microbiology - Last 24 Hours (Table) 01/24/18 00:56 Blood Culture - Preliminary Blood No Growth after 48 hours 01/24/18 14:31 Gram Stain - Preliminary Pleural Fluid Body Fluid Culture - Preliminary Assessment and Plan Plan: Assessment 1 large left-sided pleural effusion, post thoracentesis and removal of 1 L of turbid pleural fluid from the left lung. The fluid is exudate and there is some residual loculated left-sided pleural effusion and subsequent CAT scan of the chest and some left lower lobe atelectasis and consolidation. The fluid is an exudate. Cultures are still pending for now. Pleuritic chest pain has recovered from the left lung. The follow-up CAT scan of the chest showed persistence of loculated left-sided pleural effusion although a smaller amount and there is also left lower lobe consolidation and atelectasis. 2 large pericardial effusion without signs of clinical cardiac temponade and we are awaiting a echocardiogram and consultation with cardiology and cardiothoracic surgery. Note that the patient has only a small amount of pericardial effusion based on the CAT scan that was done back in December 2017. This pericardial effusion has progressively grown over the past 4 weeks. Rule out uremic pericarditis with pericardial effusion. Infectious pericarditis felt to be less likely. Malignancy is felt to be less likely. 3 recent hospitalization for a acute respiratory failure secondary to seizure activity and pneumonia, recovered on the right. Subsequently the patient developed a extensive pneumonia of the left and this is probably a aspiration pneumonia. 4 hypertension 5 left thalamus CVA from July 2017 6 chronic thrombocytopenia recovered and the platelet count has been normalized 7 concerns towards chronic alcoholism 8 End stage renal disease currently on hemodialysis 3 times a week 9 chronic anemia 10 spinal stenosis, chronic back pain, chronic cervical pain 11 nephrolithiasis 12 hyperlipidemia 13 seizure history with previous history of status epilepticus, currently on Keppra Plan Continue antibiotics. Dialysis scheduled. The patient will undergo a pericardial window tomorrow in addition to that the patient would need a video- assisted thoracoscopic surgery with evacuation of the left-sided pleural fluid which is loculated at this point and chest tube insertion. Meanwhile, continue the current antibiotic coverage. Hemodynamically stable. We'll continue to follow. Patient understands the findings and he is agreeable to the procedure.
[2018-01-26] MEDS: QUEtiapine 25 MG TAB PO SCH (20:36)
[2018-01-26] MEDS: MELATONIN 5 MG TABLET PO SCH (20:36)
[2018-01-26] MEDS: METHOCARBAMOL 750 MG TAB PO PRN (21:45)
[2018-01-27] MEDS: PIPERACILLIN-TAZOBACTAM 3.375 GM in DEXTROSE/WATER 1 50ML.BAG IVPB SCH ×2 (05:29→17:57)
[2018-01-27] MEDS: ATORVASTATIN 20 MG TAB PO SCH (07:42)
[2018-01-27] MEDS: SPIRONOLACTONE 25 MG TAB PO SCH (07:42)
[2018-01-27] MEDS: amLODIPine 5 MG TAB PO SCH ×2 (07:42→21:13)
[2018-01-27] MEDS: ASPIRIN 325 MG TAB PO SCH (07:42)
[2018-01-27] MEDS: CALCIUM ACETATE 667 MG CAP PO SCH ×3 (07:42→17:57)
[2018-01-27] MEDS: GABAPENTIN 100 MG CAP PO SCH ×2 (07:43→21:13)
[2018-01-27] MEDS: levETIRAcetam 500 MG TAB PO SCH ×2 (07:43→21:13)
[2018-01-27] MEDS: ENOXAPARIN 30 MG/0.3 ML SYRINGE SQ SCH (07:43)
[2018-01-27] MEDS: SODIUM BICARBONATE TAB 650 MG TAB PO SCH ×2 (07:43→21:13)
[2018-01-27] MEDS: IPRATROPIUM-ALBUTEROL 3 ML NEB INHALATION SCH ×4 (07:49→19:24)
[2018-01-27 08:17] LABS: Calcium 9.1 mg/dL (8.4-10.2)
[2018-01-27] MEDS: NICOTINE 14MG/24HR PATCH TRANSDERM SCH (09:35)
[2018-01-27] MEDS ORDERED: VANCOMYCIN 1,250 MG in SODIUM CHLORIDE 0.9% 250 ML IVPB ONE (12:00)
--- NOTE | 2018-01-27 13:14 | ECHOF ---
Referral Reason:pericardial effusion MEASUREMENTS -------- HEIGHT: 162.6 cm WEIGHT: 65.8 kg BP: 133/84 IVSd: 1.4 cm (0.6 - 1.1) LVIDd: 3.5 cm (3.9 - 5.3) LVPWd: 1.8 cm (0.6 - 1.1) IVSs: 1.9 cm LVIDs: 2.2 cm LVPWs: 2.2 cm RVIDd: 2.9 cm (< 3.3) LAESV Index (A-L): 25.59 ml/m Ao Diam: 3.7 cm (2.0 - 3.7) LA Diam: 3.3 cm (2.7 - 3.8) AV Cusp: 2.3 cm (1.5 - 2.6) MV E To: 0.90 m/s MV DecT: 108 ms MV A To: 1.00 m/s MV E/A Ratio: 0.90 RAP: 5.00 mmHg RVSP: 13.38 mmHg FINDINGS -------- Resting tachycardia (HR>100bpm). This was a technically good study. The left ventricular size is normal. There is severe concentric left ventricular hypertrophy. Ove rall left ventricular systolic function is normal with, an EF between 55 - 60 %. The right ventricle is normal in size and function. The left atrium is normal in size. The right atrium is normal in size. The aortic valve is trileaflet, and appears structurally normal. No aortic stenosis or regurgitation. There is trace mitral regurgitation. Trace tricuspid regurgitation present. The right ventricular systolic pressure, as measured by Dopp ler, is 13.38mmHg. Pulmonic valve appears structurally normal. The aortic root size is normal. Normal inferior vena cava with normal inspiratory collapse consistent with estimated right atrial pre ssure of 5 mmHg. There is a large, generalized pericardial effusion present. LOCULATIONS SEEN, ESPECIALLY LATERALLY CONCLUSIONS -------- 1. Resting tachycardia (HR>100bpm). 2. This was a technically good study. 3. The left ventricular size is normal. 4. There is severe concentric left ventricular hypertrophy. 5. Overall left ventricular systolic function is normal with, an EF between 55 - 60 %. 6. The right ventricle is normal in size and function. 7. The left atrium is normal in size. 8. The right atrium is normal in size. 9. The aortic valve is trileaflet, and appears structurally normal. No aortic stenosis or regurgitati on. 10. There is trace mitral regurgitation. 11. Trace tricuspid regurgitation present. 12. The right ventricular systolic pressure, as measured by Doppler, is 13.38mmHg. 13. Pulmonic valve appears structurally normal. 14. The aortic root size is normal. 15. Normal inferior vena cava with normal inspiratory collapse consistent with estimated right atrial pressure of 5 mmHg. 16. There is a large, generalized pericardial effusion present. [employer] MANAGER: Michelle Devi RDCS
--- NOTE | 2018-01-27 13:16 | P.PN ---
Subjective Progress Note Date: 01/27/18 Principal diagnosis: Large left-sided pleural parapneumonic effusion, status post thoracentesis removal of one liters of pleural fluid. Large pericardial effusion without tamponade 47-year-old male patient, presented to the hospital because of worsening shortness of breath. The patient has multiple medical problems and comorbidities. The patient was in the hospital back in and at that time the patient was in acute respiratory failure and aspiration pneumonia was suspected knowing that the patient was having generalized tonic-clonic seizures. The patient at that time presented to the hospital post ictal with altered mentation and he was combative. He was treated and he was stabilized. He was placed on antiepileptic medication. He is known also to have end-stage renal disease and he is on hemodialysis 3 times a week, TTS, and he has been very compliant and he has not missed any of his dialysis sessions. 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 Upon discharge, the patient was released home on Augmentin 875 mg 1 tablet by mouth twice a day. He was also receiving Keppra for his seizure activity. He was seen in our office on 01/13/2018 and the patient had a new infiltrate in the lingula and the left lower lobe and there was obvious improved aeration of the right lower lobe. Small bilateral pleural effusion was noted. Over the next 1-2 week, the patient's condition got worse and he came into the hospital yesterday with a large left-sided pleural effusion. He did spike a temperature earlier and currently is afebrile. His white cell count is not elevated at 10.7. Rest of the electrolytes are consistent with his renal failure knowing that the patient a BUN of 40 with a creatinine of 10.5 and his potassium level is at 4.6. Currently is on a combination of Zosyn and vancomycin. Based on this large left-sided pleural effusion, a pulmonary consultation was requested. I saw this patient. I did a side thoracentesis during which I removed a total of 1000 ML's of pleural fluid. I should be able to take more fluids yet the patient experienced increased pain and pleurisy along the left lung and I had to stop the procedure. I'm sure there is more fluid left within his left pleural space. A subsequent chest x-ray showed no evidence of any pneumothorax and there is some limited improvement in the aeration of the left lung with residual atelectasis/consolidation/effusion the left lung base. The pleural fluid was sent for analysis. On 01/25/2018 I'm seeing this patient for a follow-up. The patient is doing slightly better compared to yesterday. The patient underwent a thoracentesis yesterday and after removing around 1 L of pleural fluid, the patient became symptomatic and he developed pleuritic left sided chest pain that was brief and ultimately recovered. I had to abort the procedure. Chest x-ray showed persistent opacification of left lung base and based on that I performed a CAT scan of the chest which showed a large pericardial effusion, residual located left-sided pleural effusion and left lower lobe consolidation/atelectasis. Based on the CAT scan findings, an echocardiogram was ordered and the patient was asked to be seen by cardiology and cardiothoracic surgery. He is currently on broad-spectrum antibiotics. He is afebrile. He underwent dialysis yesterday and nephrology is on the case regarding his dialysis schedule. Suspect a parapneumonic complicated left-sided pleural effusion special that the pleural fluid that was drained from the left side showed elevated LDH and protein. We are awaiting the cultures. I also awaiting the fluid cytology. The white cell count is not elevated. The creatinine is down to 7.7. Potassium level is at 5.9 and the patient will have a follow-up with nephrology. On 01/26/2018, the patient is being seen for a follow-up. The patient is a complicated left lung pneumonia with parapneumonic effusion that was drained and the fluid was an exudate. Subsequent CAT scan of the chest showed residual loculated left-sided pleural effusion and a large pericardial effusion. Consult cardiology. Consult cardiothoracic surgery. Discussed the case with the surgeon. The patient will need a window and possibly a VATS tomorrow in regards to these abnormalities. Echocardiogram was completed and there is no evidence of temporal not. Final report is not available to me at this point. Meanwhile, the pleural fluid cultures of been negative and the patient on broad- spectrum antibiotics. The patient received dialysis yesterday. No dialysis for today. He usually gets dialyzed 3 times a week, Tuesdays and Saturdays. White cell count is not elevated. The patient has been afebrile hemodynamically stable. Potassium is at 4.3. On 01/27/2018 patient is seen in follow-up on medical surgical floor. He is resting in bed, denies any acute distress. Still has sharp left-sided chest pain with deep inspiration, but denies any chest pain, denies any dyspnea. Currently on 2 L per nasal cannula with O2 sat at 94%. Hemodynamically stable. Did have a couple episodes of low grade fevers of 99.8F, his last hemodialysis treatment was on Saturday. He is expected to have his scheduled hemodialysis treatment tomorrow. Today's lab work shows sodium of 135, BUN of 44, creatinine is 8.13. Serum potassium is 5.0. Patient was seen by CT surgery in regards to moderate-sized pericardial effusion, for evaluation for open pericardiectomy. Patient's left pleural fluid cytology is still pending, and so are the pleural fluid cultures. he remains on a combination of vancomycin, Zosyn, and Levaquin. Objective - Vital Signs Vital signs: Vital Signs Temp 98.1 F 01/27/18 07:00 Pulse 100 01/27/18 11:33 Resp 20 01/27/18 08:00 BP 166/96 01/27/18 07:00 Pulse Ox 94 L 01/27/18 07:00 Intake & Output 01/26/18 01/27/18 01/27/18 18:59 06:59 18:59 Intake Total 900 50 Balance 900 50 Intake: Intake, IV Titration 100 50 Amount Levofloxacin 500Mg-D5w 100 Pmx 500 mg In Dextrose/ Water 1 100ml.bag @ 100 mls/hr IVPB Q48H [facility] Rx#: [id number] Piperacillin-Tazobactam 3 50 .375 gm In Dextrose/Water 1 50ml.bag @ 12.5 mls/hr IVPB Q12H [facility] Rx#: [id number] Oral 800 Other: Voiding Method Toilet Toilet Toilet Urinal Urinal Urinal # Voids 1 - Exam GENERAL EXAM: Alert, pleasant, 47-year-old white male comfortable in no apparent distress. HEAD: Normocephalic/atraumatic. EYES: Normal reaction of pupils, equal size. Conjunctiva pink, sclera white. NOSE: Clear with pink turbinates. THROAT: No erythema or exudates. NECK: No masses, no JVD, no thyroid enlargement, no adenopathy. CHEST: No chest wall deformity. Symmetrical expansion. LUNGS: Equal air entry with no crackles, wheeze, rhonchi. There are absent lung sounds over left posterior lower lobe. There is done dullness to percussion along the left lung base CVS: Regular rate and rhythm, normal S1 and S2, no gallops, no murmurs, no rubs ABDOMEN: Soft, nontender. No hepatosplenomegaly, normal bowel sounds, no guarding or rigidity. EXTREMITIES: No clubbing, no edema, no cyanosis, 2+ pulses and upper and lower extremities. There is a right upper extremity functional AV fistula with positive bruit and thrill MUSCULOSKELETAL: Muscle strength and tone normal. SPINE: No scoliosis or deformity SKIN: No rashes CENTRAL NERVOUS SYSTEM: Alert and oriented -3. No focal deficits, tone is normal in all 4 extremities. PSYCHIATRIC: Alert and oriented -3. Appropriate affect. Intact judgment and insight. - Labs CBC & Chem 7: 01/25/18 07:15 01/27/18 07:46 Labs: Abnormal Lab Results - Last 24 Hours (Table) 01/27/18 Range/Units 07:46 Sodium 135 L (137-145) mmol/L Chloride 95 L (98-107) mmol/L BUN 44 H (9-20) mg/dL Creatinine 8.13 H* (0.66-1.25) mg/dL Microbiology - Last 24 Hours (Table) 01/24/18 00:56 Blood Culture - Preliminary Blood No Growth after 72 hours 01/24/18 14:31 Gram Stain - Preliminary Pleural Fluid Body Fluid Culture - Preliminary Assessment and Plan Plan: Assessment: 1 large left-sided pleural effusion, post thoracentesis and removal of 1 L of turbid pleural fluid from the left lung. The fluid is exudate and there is some residual loculated left-sided pleural effusion and subsequent CAT scan of the chest and some left lower lobe atelectasis and consolidation. The fluid is an exudate. Cultures are still pending for now. Pleuritic chest pain has recovered from the left lung. The follow-up CAT scan of the chest showed persistence of loculated left-sided pleural effusion although a smaller amount and there is also left lower lobe consolidation and atelectasis. 2 large pericardial effusion without signs of clinical cardiac temponade and we are awaiting a echocardiogram and consultation with cardiology and cardiothoracic surgery. Note that the patient has only a small amount of pericardial effusion based on the CAT scan that was done back in December 2017. This pericardial effusion has progressively grown over the past 4 weeks. Rule out uremic pericarditis with pericardial effusion. Infectious pericarditis felt to be less likely. Malignancy is felt to be less likely. 3 recent hospitalization for a acute respiratory failure secondary to seizure activity and pneumonia, recovered on the right. Subsequently the patient developed a extensive pneumonia of the left and this is probably a aspiration pneumonia. 4 hypertension 5 left thalamus CVA from July 2017 6 chronic thrombocytopenia recovered and the platelet count has been normalized 7 concerns towards chronic alcoholism 8 End stage renal disease currently on hemodialysis 3 times a week 9 chronic anemia 10 spinal stenosis, chronic back pain, chronic cervical pain 11 nephrolithiasis 12 hyperlipidemia 13 seizure history with previous history of status epilepticus, currently on Keppra Plan Patient has been evaluated by CT surgery for a pericardial window. Remains asymptomatic for now, denies any chest pain, denies any acute dyspnea. Pleural fluid cytology and cultures are still pending, continue current antibiotic coverage with a combination of Levaquin, Zosyn and vancomycin. Continue nebulized treatments, and into new hemodialysis as scheduled. I performed a history & physical examination of the patient and discussed their management with my nurse practitioner, Kerry Kiran. I reviewed the nurse practitioner's note and agree with the documented findings and plan of care. Lung sounds are diminished over left lower base, with dullness to percussion. The findings and the impression was discussed with the patient. I attest to the documentation by the nurse practitioner. Time with Patient: Less than 30
--- NOTE | 2018-01-27 13:17 | P.PN ---
Subjective Progress Note Date: 01/27/18 Principal diagnosis: Pericardial effusion, end-stage renal disease on hemodialysis, hypertension, history of cerebrovascular accident in July 2017, seizure disorder, current tobacco dependence, chronic thrombocytopenia, chronic anemia, nephrolithiasis. POD #3 left sided thoracentesis with removal of 1000 mL fluid Patient's currently sitting up in bed in no acute distress. Denies pain except when taking a very deep breath, denies shortness of breath. Has been able to get up and ambulate. Objective - Vital Signs Vital signs: Vital Signs Temp 98.1 F 01/27/18 07:00 Pulse 100 01/27/18 11:33 Resp 20 01/27/18 08:00 BP 166/96 01/27/18 07:00 Pulse Ox 94 L 01/27/18 07:00 Intake & Output 01/26/18 01/27/18 01/27/18 18:59 06:59 18:59 Intake Total 900 50 Balance 900 50 Intake: Intake, IV Titration 100 50 Amount Levofloxacin 500Mg-D5w 100 Pmx 500 mg In Dextrose/ Water 1 100ml.bag @ 100 mls/hr IVPB Q48H [facility] Rx#: [id number] Piperacillin-Tazobactam 3 50 .375 gm In Dextrose/Water 1 50ml.bag @ 12.5 mls/hr IVPB Q12H [facility] Rx#: [id number] Oral 800 Other: Voiding Method Toilet Toilet Toilet Urinal Urinal Urinal # Voids 1 - Constitutional General appearance: Present: cooperative, no acute distress - Respiratory Details: Lungs sounds diminished bilaterally. Respirations even, nonlabored. Currently on room air with oxygen saturation 94%. Able to achieve 1250 mL on his incentive spirometry. - Cardiovascular Details: S1, S2 present. Tachycardic, regular rate and rhythm. Palpable peripheral pulses bilaterally. No edema present. No calf pain or tenderness noted. - Gastrointestinal Gastrointestinal Comment(s): Abdomen soft, nontender, nondistended. Active bowel sounds 4 quadrants. Tolerating diet. - Genitourinary Genitourinary Comment(s): Continues to void clear, yellow urine. - Integumentary Integumentary Comment(s): Skin is warm dry with evidence of good perfusion. Right forearm AV fistula with positive bruit, positive thrill. - Neurologic Neurologic: Present: CNII-XII intact - Musculoskeletal Musculoskeletal: Present: gait normal, strength equal bilaterally - Psychiatric Psychiatric: Present: A&O x's 3, appropriate affect, intact judgment & insight - Allied health notes Allied health notes reviewed: nursing - Labs CBC & Chem 7: 01/25/18 07:15 01/27/18 07:46 Labs: Abnormal Lab Results - Last 24 Hours (Table) 01/27/18 Range/Units 07:46 Sodium 135 L (137-145) mmol/L Chloride 95 L (98-107) mmol/L BUN 44 H (9-20) mg/dL Creatinine 8.13 H* (0.66-1.25) mg/dL Microbiology - Last 24 Hours (Table) 01/24/18 00:56 Blood Culture - Preliminary Blood No Growth after 72 hours 01/24/18 14:31 Gram Stain - Preliminary Pleural Fluid Body Fluid Culture - Preliminary Assessment and Plan (1) Chest pain Current Visit: Yes Status: Acute Code(s): R07.9 - CHEST PAIN, UNSPECIFIED SNOMED Code(s): 99354415 (2) Community acquired pneumonia Current Visit: Yes Status: Acute Code(s): J18.9 - PNEUMONIA, UNSPECIFIED ORGANISM SNOMED Code(s): 547562566 (3) End stage renal disease on dialysis Current Visit: Yes Status: Chronic Code(s): N18.6 - END STAGE RENAL DISEASE ; Z99.2 - DEPENDENCE ON RENAL DIALYSIS SNOMED Code(s): 392241876 (4) Fever Current Visit: Yes Status: Acute Code(s): R50.9 - FEVER, UNSPECIFIED SNOMED Code(s): 128653245 (5) Pleural effusion, left Current Visit: Yes Status: Acute Code(s): J90 - PLEURAL EFFUSION, NOT ELSEWHERE CLASSIFIED SNOMED Code(s): 39977317 (6) Generalized seizure Current Visit: Yes Status: Chronic Code(s): R56.9 - UNSPECIFIED CONVULSIONS SNOMED Code(s): 199790677 (7) History of stroke Current Visit: No Status: Resolved Code(s): Z86.73 - PRSNL HX OF TIA (TIA), AND CEREB INFRC W/O RESID DEFICITS SNOMED Code(s): 661906370 (8) Hypertension Current Visit: Yes Status: Chronic Code(s): I10 - ESSENTIAL (PRIMARY) HYPERTENSION SNOMED Code(s): 29800129 (9) Tobacco dependence Current Visit: Yes Status: Chronic Code(s): F17.200 - NICOTINE DEPENDENCE, UNSPECIFIED, UNCOMPLICATED SNOMED Code(s): 73999375 Plan: 1. Will review echocardiogram to make determination of pericardial window versus catheter placement for pericardiocentesis. Patient is in no distress. 2. Dialysis management per nephrology. 3. Medical management per Dr. Robison's service. 4. Encourage incentive spirometry use 10 times every hour. Encourage smoking cessation. 5. Antibiotics per primary care service. 6. Increase activity, ambulate in hallway. 7. More recommendations to follow. Time with Patient: Greater than 30
--- NOTE | 2018-01-27 17:35 | US ---
EXAMINATION TYPE: US chest DATE OF EXAM: 01/27/2018 COMPARISON: NONE CLINICAL HISTORY: Markings for thoracentesis by pulmonary staff. Pleural effusion EXAM MEASUREMENTS: Right Pleural Effusion fluid pocket: 0.7 cm Right skin to fluid thickness: 2.0 cm Left Pleural Effusion fluid pocket: 4.1 cm Left skin to fluid thickness: 2.9 cm Right side NOT MARKED for possible thoracentesis outside the dept. Left side MARKED for possible thoracentesis outside the dept. Pulmonologists are able to review the images in the patient?s EMR. IMPRESSIONS: There is demonstration of a moderate left pleural effusion with fluid pocket that measur es 4 cm.
[2018-01-27] MEDS: QUEtiapine 25 MG TAB PO SCH (21:13)
[2018-01-27] MEDS: MELATONIN 5 MG TABLET PO SCH (21:13)
--- NOTE | 2018-01-27 22:34 | P.PN ---
Subjective Progress Note Date: 01/26/18 Principal diagnosis: Pleural effusion Patient is a 47-year-old male with a known history of ESRD on hemodialysis TTS and multiple medical problems came to ER with complaints of shortness of breath. Patient had last hemodialysis on Saturday. Patient is supposed to get hemodialysis yesterday but he missed his dialysis. Patient was previously admitted in November 2017 for acute respiratory failure and aspiration pneumonia and was also started on antiepileptic drugs during that admission. Patient otherwise denied any fever or chills. No nausea vomiting or abdominal pain. No diarrhea. No cough or sputum production. Influenza PCR negative Chest x-ray showed large left-sided pleural effusion and patchy infiltrate on the right lung Patient is being admitted with possible pneumonia. Nephrology and pulmonary is consulted. Patient underwent thoracentesis with 1 L fluid removal and fluid analysis was sent. 01/25/2018 Patient says that his breathing is better today. Patient underwent thoracentesis with 1 L fluid removal from the left lung on 01/24/2018 CT chest showed large pericardial effusion and pulmonary vascular congestion along with small left-sided pleural effusion. Patient had hemodialysis yesterday. Chest x-rays today showed large pericardial effusion as well. CT surgery was consulted and is waiting for admonitions. No complaints of chest pain. No nausea vomiting or abdominal pain. No fever no chills. 01/26/2018 Patient did improve symptomatically. CT of the chest showed loculated left- sided pleural effusion and large. Currently effusion CT surgery was consulted. Considering for urticarial window. And possible VATS. No evidence of pericardial tamponade in the 2-D echocardiogram. Pleural fluid culture negative. Patient is being continued on hemodialysis as scheduled. No other acute overnight issues All other review of systems negative except the above. Objective - Vital Signs Vital signs: Vital Signs Temp 98.9 F 01/26/18 14:43 Pulse 100 01/26/18 20:57 Resp 18 01/26/18 15:44 BP 154/99 01/26/18 20:32 Pulse Ox 95 01/26/18 14:43 Intake & Output 01/26/18 01/26/18 01/27/18 06:59 18:59 06:59 Intake Total 900 Balance 900 Intake: Intake, IV Titration 100 Amount Levofloxacin 500Mg-D5w 100 Pmx 500 mg In Dextrose/ Water 1 100ml.bag @ 100 mls/hr IVPB Q48H [facility] Rx#: [id number] Piperacillin-Tazobactam 3 .375 gm In Dextrose/Water 1 50ml.bag @ 12.5 mls/hr IVPB Q12H [facility] Rx#: [id number] Oral 800 Other: Voiding Method Toilet Urinal # Voids - Exam Patient is lying in the bed comfortably, no acute distress, awake alert and oriented.. HEENT: Normocephalic. Neck is supple. Pupils reactive. Nostrils clear. Oral cavity is moist. Ears reveal no drainage. Neck reveals no JVD, carotid bruits, or thyromegaly. CHEST EXAMINATION: Trachea is central. Symmetrical expansion. Diminished breath sounds and left basilar crackles. No wheezing CARDIAC: Normal S1, S2 with no gallops. No murmurs ABDOMEN: Soft. Bowel sounds normal. No organomegaly. No abdominal bruits. Extremities: reveal no edema. No clubbing or cyanosis Neurologically awake, alert, oriented x3 with well-coordinated movements. No focal deficits noted Skin: No rash or skin lesions. Psychiatric: Cooperative. Nonsuicidal Musculoskeletal: No joint swelling or deformity. Normal range of motion. - Labs CBC & Chem 7: 01/25/18 07:15 01/27/18 07:46 Labs: Abnormal Lab Results - Last 24 Hours (Table) 01/26/18 Range/Units 07:52 Chloride 96 L (98-107) mmol/L BUN 26 H (9-20) mg/dL Creatinine 6.23 H* (0.66-1.25) mg/dL Microbiology - Last 24 Hours (Table) 01/24/18 14:31 Gram Stain - Preliminary Pleural Fluid Body Fluid Culture - Preliminary 01/24/18 00:56 Blood Culture - Preliminary Blood No Growth after 48 hours Assessment and Plan Assessment: Shortness of breath due to left large pleural effusion. Possible parapneumonic effusion is being considered. With the recent pneumonic infiltrate of the lingula Large pericardial effusion Pneumonia with bilateral lower lobe pulmonary infiltrates. Recent hospitalization for status of her progress and acute respiratory failure with pneumonia Hypertension Hyperlipidemia ESRD on hemodialysis. 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 Pulmonary and nephrology is following. Patient underwent thoracentesis with 1 L fluid removal. Follow-up fluid analysis. Hemodialysis as per nephrology. CT surgery evaluation is pending at this time for possible pericardiocentesis Continue with home medications and further recommendations based on the clinical course. Prognosis is guarded with multiple medical problems and comorbid conditions. Time with Patient: Greater than 30
--- NOTE | 2018-01-27 22:35 | P.PN ---
Subjective Progress Note Date: 01/27/18 Principal diagnosis: Pleural effusion Patient is a 47-year-old male with a known history of ESRD on hemodialysis TTS and multiple medical problems came to ER with complaints of shortness of breath. Patient had last hemodialysis on Saturday. Patient is supposed to get hemodialysis yesterday but he missed his dialysis. Patient was previously admitted in November 2017 for acute respiratory failure and aspiration pneumonia and was also started on antiepileptic drugs during that admission. Patient otherwise denied any fever or chills. No nausea vomiting or abdominal pain. No diarrhea. No cough or sputum production. Influenza PCR negative Chest x-ray showed large left-sided pleural effusion and patchy infiltrate on the right lung Patient is being admitted with possible pneumonia. Nephrology and pulmonary is consulted. Patient underwent thoracentesis with 1 L fluid removal and fluid analysis was sent. 01/25/2018 Patient says that his breathing is better today. Patient underwent thoracentesis with 1 L fluid removal from the left lung on 01/24/2018 CT chest showed large pericardial effusion and pulmonary vascular congestion along with small left-sided pleural effusion. Patient had hemodialysis yesterday. Chest x-rays today showed large pericardial effusion as well. CT surgery was consulted and is waiting for admonitions. No complaints of chest pain. No nausea vomiting or abdominal pain. No fever no chills. 01/26/2018 Patient did improve symptomatically. CT of the chest showed loculated left- sided pleural effusion and large. Currently effusion CT surgery was consulted. Considering for urticarial window. And possible VATS. No evidence of pericardial tamponade in the 2-D echocardiogram. Pleural fluid culture negative. Patient is being continued on hemodialysis as scheduled. No other acute overnight issues 01/27/2018 Chest ultrasound showed 4 cm loculated left-sided pleural effusion. Otherwise patient was seen by CT surgery and considering pericardiocentesi/ pericardial window . Otherwise patient did improve symptomatically. No nausea vomiting or abdominal pain. No fever no chills. Continued on broad-spectrum antibiotics otherwise. Pulmonary and CT surgery is following. All other review of systems negative except the above. Objective - Vital Signs Vital signs: Vital Signs Temp 98.8 F 01/27/18 21:45 Pulse 110 H 01/27/18 21:45 Resp 18 01/27/18 21:45 BP 151/89 01/27/18 21:45 Pulse Ox 95 01/27/18 21:45 Intake & Output 01/27/18 01/27/18 01/28/18 06:59 18:59 06:59 Intake Total 50 300 Balance 50 300 Intake: Intake, IV Titration 50 300 Amount Piperacillin-Tazobactam 3 50 50 .375 gm In Dextrose/Water 1 50ml.bag @ 12.5 mls/hr IVPB Q12H [facility] Rx#: [id number] Vancomycin 1,250 mg In 250 Sodium Chloride 0.9% 250 ml @ 125 mls/hr IVPB ONCE ONE Rx#:[id number] Other: Voiding Method Toilet Toilet Toilet Urinal Urinal Urinal # Voids 1 - Exam Patient is lying in the bed comfortably, no acute distress, awake alert and oriented.. HEENT: Normocephalic. Neck is supple. Pupils reactive. Nostrils clear. Oral cavity is moist. Ears reveal no drainage. Neck reveals no JVD, carotid bruits, or thyromegaly. CHEST EXAMINATION: Trachea is central. Symmetrical expansion. Diminished breath sounds and left basilar crackles. No wheezing CARDIAC: Normal S1, S2 with no gallops. No murmurs ABDOMEN: Soft. Bowel sounds normal. No organomegaly. No abdominal bruits. Extremities: reveal no edema. No clubbing or cyanosis Neurologically awake, alert, oriented x3 with well-coordinated movements. No focal deficits noted Skin: No rash or skin lesions. Psychiatric: Cooperative. Nonsuicidal Musculoskeletal: No joint swelling or deformity. Normal range of motion. - Labs CBC & Chem 7: 01/25/18 07:15 01/27/18 07:46 Labs: Abnormal Lab Results - Last 24 Hours (Table) 01/27/18 Range/Units 07:46 Sodium 135 L (137-145) mmol/L Chloride 95 L (98-107) mmol/L BUN 44 H (9-20) mg/dL Creatinine 8.13 H* (0.66-1.25) mg/dL Microbiology - Last 24 Hours (Table) 01/24/18 14:31 Gram Stain - Preliminary Pleural Fluid Body Fluid Culture - Preliminary 01/24/18 00:56 Blood Culture - Preliminary Blood No Growth after 72 hours Assessment and Plan Assessment: Shortness of breath due to left large pleural effusion. Possible parapneumonic effusion is being considered. With the recent pneumonic infiltrate of the lingula Large pericardial effusion Pneumonia with bilateral lower lobe pulmonary infiltrates. Recent hospitalization for status of her progress and acute respiratory failure with pneumonia Hypertension Hyperlipidemia ESRD on hemodialysis. 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 Pulmonary and nephrology is following. Patient underwent thoracentesis with 1 L fluid removal. Follow-up fluid analysis. Hemodialysis as per nephrology. CT surgery evaluation is pending at this time for possible pericardiocentesis Continue with home medications and further recommendations based on the clinical course. Prognosis is guarded with multiple medical problems and comorbid conditions. Time with Patient: Greater than 30
[2018-01-28] MEDS: PIPERACILLIN-TAZOBACTAM 3.375 GM in DEXTROSE/WATER 1 50ML.BAG IVPB SCH ×2 (05:15→17:18)
[2018-01-28] MEDS: IPRATROPIUM-ALBUTEROL 3 ML NEB INHALATION SCH ×4 (08:46→19:20)
[2018-01-28 08:54] LABS: Calcium 9.2 mg/dL (8.4-10.2); Potassium 5.4 mmol/L (3.5-5.1)
[2018-01-28] MEDS: LEVOFLOXACIN 500 MG TAB PO SCH (08:57)
[2018-01-28] MEDS: levETIRAcetam 500 MG TAB PO SCH ×2 (08:57→20:59)
[2018-01-28] MEDS: amLODIPine 5 MG TAB PO SCH ×2 (08:57→20:59)
[2018-01-28] MEDS: GABAPENTIN 100 MG CAP PO SCH ×2 (08:57→20:59)
--- NOTE | 2018-01-28 08:57 | P.PN ---
Subjective Progress Note Date: 01/28/18 Principal diagnosis: Pericardial effusion, end-stage renal disease on hemodialysis, hypertension, history of cerebrovascular accident in July 2017, seizure disorder, current tobacco dependence, chronic thrombocytopenia, chronic anemia, nephrolithiasis. POD #4 left sided thoracentesis with removal of 1000 mL fluid Patient's currently sitting up in a chair in no acute distress. Denies pain except when taking a very deep breath, denies shortness of breath. Has been able to get up and ambulate. Objective - Vital Signs Vital signs: Vital Signs Temp 98.8 F 01/27/18 21:45 Pulse 92 01/28/18 08:47 Resp 18 01/27/18 23:53 BP 151/89 01/27/18 21:45 Pulse Ox 95 01/27/18 21:45 Intake & Output 01/27/18 01/28/18 01/28/18 18:59 06:59 18:59 Intake Total 300 125 Balance 300 125 Intake: Intake, IV Titration 300 25 Amount Piperacillin-Tazobactam 3 50 25 .375 gm In Dextrose/Water 1 50ml.bag @ 12.5 mls/hr IVPB Q12H [facility] Rx#: [id number] Vancomycin 1,250 mg In 250 Sodium Chloride 0.9% 250 ml @ 125 mls/hr IVPB ONCE ONE Rx#:[id number] Oral 100 Other: Voiding Method Toilet Toilet Urinal Urinal # Voids 1 - Constitutional General appearance: Present: cooperative, no acute distress - Respiratory Details: Lungs sounds diminished bilaterally, greater left base. Respirations even, nonlabored. Currently on room air with oxygen saturation 95%. - Cardiovascular Details: S1, S2 present. No distant heart sounds noted. Regular, tachycardic rate and rhythm, sinus tach on telemetry. Palpable peripheral pulses bilaterally. No edema present. No calf pain or tenderness noted. - Gastrointestinal Gastrointestinal Comment(s): Abdomen soft, nontender, nondistended. Active bowel sounds 4 quadrants. Tolerating diet. - Genitourinary Genitourinary Comment(s): Continues to void. - Integumentary Integumentary Comment(s): Skin is warm and dry with evidence of good perfusion. - Neurologic Neurologic: Present: CNII-XII intact - Musculoskeletal Musculoskeletal: Present: gait normal, strength equal bilaterally - Psychiatric Psychiatric: Present: A&O x's 3, appropriate affect, intact judgment & insight - Allied health notes Allied health notes reviewed: nursing - Labs CBC & Chem 7: 01/25/18 07:15 01/27/18 07:46 Labs: Microbiology - Last 24 Hours (Table) 01/24/18 00:56 Blood Culture - Preliminary Blood No Growth after 96 hours 01/24/18 14:31 Gram Stain - Preliminary Pleural Fluid Body Fluid Culture - Preliminary Assessment and Plan (1) Chest pain Current Visit: Yes Status: Acute Code(s): R07.9 - CHEST PAIN, UNSPECIFIED SNOMED Code(s): 26127591 (2) Community acquired pneumonia Current Visit: Yes Status: Acute Code(s): J18.9 - PNEUMONIA, UNSPECIFIED ORGANISM SNOMED Code(s): 233215373 (3) End stage renal disease on dialysis Current Visit: Yes Status: Chronic Code(s): N18.6 - END STAGE RENAL DISEASE ; Z99.2 - DEPENDENCE ON RENAL DIALYSIS SNOMED Code(s): 473410887 (4) Fever Current Visit: Yes Status: Acute Code(s): R50.9 - FEVER, UNSPECIFIED SNOMED Code(s): 213390617 (5) Pleural effusion, left Current Visit: Yes Status: Acute Code(s): J90 - PLEURAL EFFUSION, NOT ELSEWHERE CLASSIFIED SNOMED Code(s): 89231310 (6) Generalized seizure Current Visit: Yes Status: Chronic Code(s): R56.9 - UNSPECIFIED CONVULSIONS SNOMED Code(s): 653679609 (7) History of stroke Current Visit: No Status: Resolved Code(s): Z86.73 - PRSNL HX OF TIA (TIA), AND CEREB INFRC W/O RESID DEFICITS SNOMED Code(s): 014641722 (8) Hypertension Current Visit: Yes Status: Chronic Code(s): I10 - ESSENTIAL (PRIMARY) HYPERTENSION SNOMED Code(s): 44072765 (9) Tobacco dependence Current Visit: Yes Status: Chronic Code(s): F17.200 - NICOTINE DEPENDENCE, UNSPECIFIED, UNCOMPLICATED SNOMED Code(s): 59027969 Plan: 1. Discussion had with Dr. Fraire. Ultrasound of chest completed for possible thoracentesis. If Dr. Fraire is able to perform thoracentesis then patient is to have pericardiocentesis performed for pericardial effusion. If thoracentesis is unable to be performed, we will plan for possible VATS with decortication and pericardial window. Patient is in no distress. 2. Dialysis management per nephrology. 3. Medical management per Dr. Robison's service. 4. Encourage incentive spirometry use 10 times every hour. Encourage smoking cessation. 5. Antibiotics per primary care service. 6. Increase activity, ambulate in hallway. 7. More recommendations to follow. Time with Patient: Greater than 30
[2018-01-28] MEDS: CALCIUM ACETATE 667 MG CAP PO SCH ×3 (08:58→17:18)
[2018-01-28] MEDS: ENOXAPARIN 30 MG/0.3 ML SYRINGE SQ SCH (08:58)
[2018-01-28] MEDS: NICOTINE 14MG/24HR PATCH TRANSDERM SCH (08:58)
[2018-01-28] MEDS: SODIUM BICARBONATE TAB 650 MG TAB PO SCH ×2 (08:58→20:59)
[2018-01-28] MEDS: ATORVASTATIN 20 MG TAB PO SCH (08:58)
[2018-01-28] MEDS: ASPIRIN 325 MG TAB PO SCH (08:58)
[2018-01-28] MEDS: SPIRONOLACTONE 25 MG TAB PO SCH (08:58)
[2018-01-28 09:15] LABS: Basophils % (A) 1 %; Eosinophils # (A) 0.1 k/uL (0-0.7); Eosinophils % (A) 2 %; HCT 25.1 % (39.0-53.0); Hypochromasia Slight; Lymphocytes # (A) 0.9 k/uL (1.0-4.8); Lymphocytes % (A) 11 %; MCH 29.5 pg (25.0-35.0); MCHC 31.7 g/dL (31.0-37.0); Mean Platelet Volume 7.1; Monocytes # (A) 0.5 k/uL (0-1.0); Monocytes % (A) 6 %; Neutrophils # (A) 6.5 k/uL (1.3-7.7); Neutrophils % (A) 79 %; Platelet Count 335 k/uL (150-450); Poikilocytosis Slight; RBC 2.69 m/uL (4.30-5.90); WBC 8.3 k/uL (3.8-10.6)
[2018-01-28] MEDS: METHOCARBAMOL 750 MG TAB PO PRN (20:01)
[2018-01-28] MEDS: MELATONIN 5 MG TABLET PO SCH (20:58)
[2018-01-28] MEDS: QUEtiapine 25 MG TAB PO SCH (20:58)
--- NOTE | 2018-01-28 21:10 | PN ---
PROGRESS NOTE Patient is seen for followup for end-stage renal disease. Patient is a being seen by Cardiothoracic Surgery. He is status post left-sided thoracentesis. He also has a pericardial effusion. He is scheduled for hemodialysis today. EXAMINATION: Blood pressure is 135/84 this morning, heart rate of 99 per minute. Patient is afebrile. HEART: S1, S2. LUNGS: Decreased breath sounds at bases. Abdomen is soft, nontender. Lower extremities show no evidence of edema. TOD[employer]ER C[employer]GIVER is grossly intact. LABS: Show sodium 133, potassium 5.4. Hemoglobin 8.0 g/dL. ASSESSMENT: 1. End-stage renal disease, on hemodialysis on a Saturday, , Saturday schedule for hemodialysis today. 2. Large left-sided pleural effusion, status post thoracentesis of about 1 L. 3. Large pericardial effusion without evidence of cardiac tamponade. The patient has been regular with his outpatient dialysis treatments. Although his creatinine remains elevated, his clearances with dialysis have been adequate as outpatient. I will maintain him on daily dialysis for now. PLAN: Repeat hemodialysis in a.m. Await further plans from Cardiothoracic Surgery. MMODL / IJN: [id number] /
[2018-01-29] MEDS: PIPERACILLIN-TAZOBACTAM 3.375 GM in DEXTROSE/WATER 1 50ML.BAG IVPB SCH ×3 (05:14→21:11)
[2018-01-29] MEDS: CALCIUM ACETATE 667 MG CAP PO SCH ×3 (07:45→17:57)
[2018-01-29] MEDS: ATORVASTATIN 20 MG TAB PO SCH (07:45)
[2018-01-29] MEDS: SPIRONOLACTONE 25 MG TAB PO SCH (07:45)
[2018-01-29] MEDS: ASPIRIN 325 MG TAB PO SCH (07:46)
[2018-01-29] MEDS: SODIUM BICARBONATE TAB 650 MG TAB PO SCH (07:46)
[2018-01-29] MEDS: NICOTINE 14MG/24HR PATCH TRANSDERM SCH ×2 (07:46→07:51)
[2018-01-29] MEDS: amLODIPine 5 MG TAB PO SCH ×2 (07:46→20:43)
[2018-01-29] MEDS: levETIRAcetam 500 MG TAB PO SCH ×2 (07:46→20:42)
[2018-01-29] MEDS: ENOXAPARIN 30 MG/0.3 ML SYRINGE SQ SCH (07:46)
[2018-01-29] MEDS: GABAPENTIN 100 MG CAP PO SCH ×2 (07:46→20:43)
--- NOTE | 2018-01-29 08:24 | XR ---
EXAMINATION TYPE: XR chest 2V DATE OF EXAM: 01/29/2018 COMPARISON: 01/25/2018 INDICATION: Pleural effusion, pneumonia TECHNIQUE: Frontal and lateral views of the chest are obtained. FINDINGS: The heart size is enlarged. The pulmonary vasculature is normal. There is a moderate left pleural effusion. Findings are stable from 01/25/2018. IMPRESSION: 1. Moderate left pleural effusion and cardiomegaly, stable from prior exam
[2018-01-29] MEDS: IPRATROPIUM-ALBUTEROL 3 ML NEB INHALATION SCH ×4 (08:26→19:32)
[2018-01-29] MEDS ORDERED: LIDOCAINE 1% INJ 10MG/ML (20 ML MDV) SQ ONE (09:20)
[2018-01-29 09:24] LABS: Anisocytosis Slight; Basophils % (A) 0 %; Eosinophils # (A) 0.1 k/uL (0-0.7); Eosinophils % (A) 1 %; HCT 25.2 % (39.0-53.0); HGB 7.7 gm/dL (13.0-17.5); Hypochromasia Moderate; Lymphocytes # (A) 0.7 k/uL (1.0-4.8); Lymphocytes % (A) 8 %; MCH 28.7 pg (25.0-35.0); MCHC 30.6 g/dL (31.0-37.0); Mean Platelet Volume 7.5; Monocytes # (A) 0.5 k/uL (0-1.0); Monocytes % (A) 5 %; Neutrophils # (A) 7.3 k/uL (1.3-7.7); Neutrophils % (A) 84 %; Platelet Count 338 k/uL (150-450); Poikilocytosis Slight; RBC 2.68 m/uL (4.30-5.90); RDW 16.3 % (11.5-15.5); WBC 8.8 k/uL (3.8-10.6)
[2018-01-29 09:42] LABS: Calcium 9.4 mg/dL (8.4-10.2); Potassium 4.9 mmol/L (3.5-5.1)
--- NOTE | 2018-01-29 12:50 | P.PN ---
Subjective Progress Note Date: 01/28/18 Principal diagnosis: Large left-sided pleural parapneumonic effusion, status post thoracentesis removal of one liters of pleural fluid. Large pericardial effusion without tamponade 47-year-old male patient, presented to the hospital because of worsening shortness of breath. The patient has multiple medical problems and comorbidities. The patient was in the hospital back in and at that time the patient was in acute respiratory failure and aspiration pneumonia was suspected knowing that the patient was having generalized tonic-clonic seizures. The patient at that time presented to the hospital post ictal with altered mentation and he was combative. He was treated and he was stabilized. He was placed on antiepileptic medication. He is known also to have end-stage renal disease and he is on hemodialysis 3 times a week, TTS, and he has been very compliant and he has not missed any of his dialysis sessions. 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 Upon discharge, the patient was released home on Augmentin 875 mg 1 tablet by mouth twice a day. He was also receiving Keppra for his seizure activity. He was seen in our office on 01/13/2018 and the patient had a new infiltrate in the lingula and the left lower lobe and there was obvious improved aeration of the right lower lobe. Small bilateral pleural effusion was noted. Over the next 1-2 week, the patient's condition got worse and he came into the hospital yesterday with a large left-sided pleural effusion. He did spike a temperature earlier and currently is afebrile. His white cell count is not elevated at 10.7. Rest of the electrolytes are consistent with his renal failure knowing that the patient a BUN of 40 with a creatinine of 10.5 and his potassium level is at 4.6. Currently is on a combination of Zosyn and vancomycin. Based on this large left-sided pleural effusion, a pulmonary consultation was requested. I saw this patient. I did a side thoracentesis during which I removed a total of 1000 ML's of pleural fluid. I should be able to take more fluids yet the patient experienced increased pain and pleurisy along the left lung and I had to stop the procedure. I'm sure there is more fluid left within his left pleural space. A subsequent chest x-ray showed no evidence of any pneumothorax and there is some limited improvement in the aeration of the left lung with residual atelectasis/consolidation/effusion the left lung base. The pleural fluid was sent for analysis. On 01/25/2018 I'm seeing this patient for a follow-up. The patient is doing slightly better compared to yesterday. The patient underwent a thoracentesis yesterday and after removing around 1 L of pleural fluid, the patient became symptomatic and he developed pleuritic left sided chest pain that was brief and ultimately recovered. I had to abort the procedure. Chest x-ray showed persistent opacification of left lung base and based on that I performed a CAT scan of the chest which showed a large pericardial effusion, residual located left-sided pleural effusion and left lower lobe consolidation/atelectasis. Based on the CAT scan findings, an echocardiogram was ordered and the patient was asked to be seen by cardiology and cardiothoracic surgery. He is currently on broad-spectrum antibiotics. He is afebrile. He underwent dialysis yesterday and nephrology is on the case regarding his dialysis schedule. Suspect a parapneumonic complicated left-sided pleural effusion special that the pleural fluid that was drained from the left side showed elevated LDH and protein. We are awaiting the cultures. I also awaiting the fluid cytology. The white cell count is not elevated. The creatinine is down to 7.7. Potassium level is at 5.9 and the patient will have a follow-up with nephrology. On 01/26/2018, the patient is being seen for a follow-up. The patient is a complicated left lung pneumonia with parapneumonic effusion that was drained and the fluid was an exudate. Subsequent CAT scan of the chest showed residual loculated left-sided pleural effusion and a large pericardial effusion. Consult cardiology. Consult cardiothoracic surgery. Discussed the case with the surgeon. The patient will need a window and possibly a VATS tomorrow in regards to these abnormalities. Echocardiogram was completed and there is no evidence of temporal not. Final report is not available to me at this point. Meanwhile, the pleural fluid cultures of been negative and the patient on broad- spectrum antibiotics. The patient received dialysis yesterday. No dialysis for today. He usually gets dialyzed 3 times a week, Tuesdays and Saturdays. White cell count is not elevated. The patient has been afebrile hemodynamically stable. Potassium is at 4.3. On 01/27/2018 patient is seen in follow-up on medical surgical floor. He is resting in bed, denies any acute distress. Still has sharp left-sided chest pain with deep inspiration, but denies any chest pain, denies any dyspnea. Currently on 2 L per nasal cannula with O2 sat at 94%. Hemodynamically stable. Did have a couple episodes of low grade fevers of 99.8F, his last hemodialysis treatment was on Saturday. He is expected to have his scheduled hemodialysis treatment tomorrow. Today's lab work shows sodium of 135, BUN of 44, creatinine is 8.13. Serum potassium is 5.0. Patient was seen by CT surgery in regards to moderate-sized pericardial effusion, for evaluation for open pericardiectomy. Patient's left pleural fluid cytology is still pending, and so are the pleural fluid cultures. he remains on a combination of vancomycin, Zosyn, and Levaquin. On 01/28/2018 patient seen again in follow-up. He is having his hemodialysis treatment today, with the goal to remove 2-1/2 L. Denies any acute dyspnea, although left-sided chest wall pain remains, exacerbated by deep inspiration. Ultrasound from 01/27/2018 has been reviewed, and showed left pleural effusion fluid pocket of 4.1 cm. Patient remains afebrile, on 2 L per nasal cannula his O2 sat at 94%. Denies coughing, denies respiratory distress. Denies any chest pain. Today's lab work shows WBC of 8.3, hemoglobin of 8.0, sodium is 133, potassium is 5.4, B1 is 61, creatinine is 10. Pleural fluid analysis showed high LDH and protein, consistent with exudative pleural effusion. Pleural fluid cytology is still pending at this time. Patient remains on a combination of Levaquin, Zosyn and vancomycin. Pleural fluid cultures are pending. No fevers, patient denies any chills. Objective - Vital Signs Vital signs: Vital Signs Temp 98.7 F 01/28/18 07:00 Pulse 90 01/28/18 08:56 Resp 18 01/28/18 08:00 BP 135/84 01/28/18 07:00 Pulse Ox 94 L 01/28/18 07:00 Intake & Output 01/27/18 01/28/18 01/28/18 18:59 06:59 18:59 Intake Total 300 125 Balance 300 125 Intake: Intake, IV Titration 300 25 Amount Piperacillin-Tazobactam 3 50 25 .375 gm In Dextrose/Water 1 50ml.bag @ 12.5 mls/hr IVPB Q12H [facility] Rx#: [id number] Vancomycin 1,250 mg In 250 Sodium Chloride 0.9% 250 ml @ 125 mls/hr IVPB ONCE ONE Rx#:[id number] Oral 100 Other: Voiding Method Toilet Toilet Toilet Urinal Urinal # Voids 1 - Exam GENERAL EXAM: Alert, pleasant, 47-year-old white male comfortable in no apparent distress. HEAD: Normocephalic/atraumatic. EYES: Normal reaction of pupils, equal size. Conjunctiva pink, sclera white. NOSE: Clear with pink turbinates. THROAT: No erythema or exudates. NECK: No masses, no JVD, no thyroid enlargement, no adenopathy. CHEST: No chest wall deformity. Symmetrical expansion. LUNGS: Equal air entry with no crackles, wheeze, rhonchi. There are absent lung sounds over left posterior lower lobe. There is dullness to percussion along the left lung base CVS: Regular rate and rhythm, normal S1 and S2, no gallops, no murmurs, no rubs ABDOMEN: Soft, nontender. No hepatosplenomegaly, normal bowel sounds, no guarding or rigidity. EXTREMITIES: No clubbing, no edema, no cyanosis, 2+ pulses and upper and lower extremities. There is a right upper extremity functional AV fistula with positive bruit and thrill MUSCULOSKELETAL: Muscle strength and tone normal. SPINE: No scoliosis or deformity SKIN: No rashes CENTRAL NERVOUS SYSTEM: Alert and oriented -3. No focal deficits, tone is normal in all 4 extremities. PSYCHIATRIC: Alert and oriented -3. Appropriate affect. Intact judgment and insight. - Labs CBC & Chem 7: 01/28/18 07:54 01/28/18 07:54 Labs: Abnormal Lab Results - Last 24 Hours (Table) 01/28/18 01/28/18 Range/Units 07:54 07:54 RBC 2.69 L (4.30-5.90) m/uL Hgb 8.0 L (13.0-17.5) gm/dL Hct 25.1 L (39.0-53.0) % RDW 16.0 H (11.5-15.5) % Lymphocytes # 0.9 L (1.0-4.8) k/uL Sodium 133 L (137-145) mmol/L Potassium 5.4 H (3.5-5.1) mmol/L Chloride 93 L (98-107) mmol/L BUN 61 H (9-20) mg/dL Creatinine 10.00 H* (0.66-1.25) mg/dL Microbiology - Last 24 Hours (Table) 01/24/18 00:56 Blood Culture - Preliminary Blood No Growth after 96 hours 01/24/18 14:31 Gram Stain - Preliminary Pleural Fluid Body Fluid Culture - Preliminary Assessment and Plan Plan: Assessment: 1 large left-sided pleural effusion, post thoracentesis and removal of 1 L of turbid pleural fluid from the left lung. The fluid is exudate and there is some residual loculated left-sided pleural effusion and subsequent CAT scan of the chest and some left lower lobe atelectasis and consolidation. The fluid is an exudate. Cultures are still pending for now. Pleuritic chest pain has recovered from the left lung. The follow-up CAT scan of the chest showed persistence of loculated left-sided pleural effusion although a smaller amount and there is also left lower lobe consolidation and atelectasis. Ultrasound of the chest from 01/27/2018 showed left pleural fluid pocket of only 4.1 cm 2 large pericardial effusion without signs of clinical cardiac temponade and we are awaiting a echocardiogram and consultation with cardiology and cardiothoracic surgery. Note that the patient has only a small amount of pericardial effusion based on the CAT scan that was done back in December 2017. This pericardial effusion has progressively grown over the past 4 weeks. Rule out uremic pericarditis with pericardial effusion. Infectious pericarditis felt to be less likely. Malignancy is felt to be less likely. 3 recent hospitalization for a acute respiratory failure secondary to seizure activity and pneumonia, recovered on the right. Subsequently the patient developed a extensive pneumonia of the left and this is probably a aspiration pneumonia. 4 hypertension 5 left thalamus CVA from July 2017 6 chronic thrombocytopenia recovered and the platelet count has been normalized 7 concerns towards chronic alcoholism 8 End stage renal disease currently on hemodialysis 3 times a week 9 chronic anemia 10 spinal stenosis, chronic back pain, chronic cervical pain 11 nephrolithiasis 12 hyperlipidemia 13 seizure history with previous history of status epilepticus, currently on Keppra Plan Ultrasound of the chest has been reviewed, there is a left pleural effusion fluid pocket of 4.1 cm. Denies any acute dyspnea, although left-sided chest pain persists with deep inspiration. We will attempt left thoracentesis tomorrow morning. Pleural fluid cytology and cultures are still pending, continue current antibiotic coverage with a combination of Levaquin, Zosyn and vancomycin. Continue nebulized treatments, is having hemodialysis today with the goal to remove 2.[address] surgery is evaluating the patient for a pericardiocentesis for the pericardial window. I performed a history & physical examination of the patient and discussed their management with my nurse practitioner, Kerry Kiran. I reviewed the nurse practitioner's note and agree with the documented findings and plan of care. Lung sounds are diminished over left lower base, with dullness to percussion. The findings and the impression was discussed with the patient. I attest to the documentation by the nurse practitioner. Time with Patient: Less than 30
--- NOTE | 2018-01-29 13:46 | P.PN ---
Subjective Progress Note Date: 01/29/18 Principal diagnosis: Large left-sided pleural parapneumonic effusion, status post thoracentesis removal of one liters of pleural fluid. Large pericardial effusion without tamponade 47-year-old male patient, presented to the hospital because of worsening shortness of breath. The patient has multiple medical problems and comorbidities. The patient was in the hospital back in and at that time the patient was in acute respiratory failure and aspiration pneumonia was suspected knowing that the patient was having generalized tonic-clonic seizures. The patient at that time presented to the hospital post ictal with altered mentation and he was combative. He was treated and he was stabilized. He was placed on antiepileptic medication. He is known also to have end-stage renal disease and he is on hemodialysis 3 times a week, TTS, and he has been very compliant and he has not missed any of his dialysis sessions. 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 Upon discharge, the patient was released home on Augmentin 875 mg 1 tablet by mouth twice a day. He was also receiving Keppra for his seizure activity. He was seen in our office on 01/13/2018 and the patient had a new infiltrate in the lingula and the left lower lobe and there was obvious improved aeration of the right lower lobe. Small bilateral pleural effusion was noted. Over the next 1-2 week, the patient's condition got worse and he came into the hospital yesterday with a large left-sided pleural effusion. He did spike a temperature earlier and currently is afebrile. His white cell count is not elevated at 10.7. Rest of the electrolytes are consistent with his renal failure knowing that the patient a BUN of 40 with a creatinine of 10.5 and his potassium level is at 4.6. Currently is on a combination of Zosyn and vancomycin. Based on this large left-sided pleural effusion, a pulmonary consultation was requested. I saw this patient. I did a side thoracentesis during which I removed a total of 1000 ML's of pleural fluid. I should be able to take more fluids yet the patient experienced increased pain and pleurisy along the left lung and I had to stop the procedure. I'm sure there is more fluid left within his left pleural space. A subsequent chest x-ray showed no evidence of any pneumothorax and there is some limited improvement in the aeration of the left lung with residual atelectasis/consolidation/effusion the left lung base. The pleural fluid was sent for analysis. On 01/25/2018 I'm seeing this patient for a follow-up. The patient is doing slightly better compared to yesterday. The patient underwent a thoracentesis yesterday and after removing around 1 L of pleural fluid, the patient became symptomatic and he developed pleuritic left sided chest pain that was brief and ultimately recovered. I had to abort the procedure. Chest x-ray showed persistent opacification of left lung base and based on that I performed a CAT scan of the chest which showed a large pericardial effusion, residual located left-sided pleural effusion and left lower lobe consolidation/atelectasis. Based on the CAT scan findings, an echocardiogram was ordered and the patient was asked to be seen by cardiology and cardiothoracic surgery. He is currently on broad-spectrum antibiotics. He is afebrile. He underwent dialysis yesterday and nephrology is on the case regarding his dialysis schedule. Suspect a parapneumonic complicated left-sided pleural effusion special that the pleural fluid that was drained from the left side showed elevated LDH and protein. We are awaiting the cultures. I also awaiting the fluid cytology. The white cell count is not elevated. The creatinine is down to 7.7. Potassium level is at 5.9 and the patient will have a follow-up with nephrology. On 01/26/2018, the patient is being seen for a follow-up. The patient is a complicated left lung pneumonia with parapneumonic effusion that was drained and the fluid was an exudate. Subsequent CAT scan of the chest showed residual loculated left-sided pleural effusion and a large pericardial effusion. Consult cardiology. Consult cardiothoracic surgery. Discussed the case with the surgeon. The patient will need a window and possibly a VATS tomorrow in regards to these abnormalities. Echocardiogram was completed and there is no evidence of temporal not. Final report is not available to me at this point. Meanwhile, the pleural fluid cultures of been negative and the patient on broad- spectrum antibiotics. The patient received dialysis yesterday. No dialysis for today. He usually gets dialyzed 3 times a week, Tuesdays and Saturdays. White cell count is not elevated. The patient has been afebrile hemodynamically stable. Potassium is at 4.3. On 01/27/2018 patient is seen in follow-up on medical surgical floor. He is resting in bed, denies any acute distress. Still has sharp left-sided chest pain with deep inspiration, but denies any chest pain, denies any dyspnea. Currently on 2 L per nasal cannula with O2 sat at 94%. Hemodynamically stable. Did have a couple episodes of low grade fevers of 99.8F, his last hemodialysis treatment was on Saturday. He is expected to have his scheduled hemodialysis treatment tomorrow. Today's lab work shows sodium of 135, BUN of 44, creatinine is 8.13. Serum potassium is 5.0. Patient was seen by CT surgery in regards to moderate-sized pericardial effusion, for evaluation for open pericardiectomy. Patient's left pleural fluid cytology is still pending, and so are the pleural fluid cultures. he remains on a combination of vancomycin, Zosyn, and Levaquin. On 01/28/2018 patient seen again in follow-up. He is having his hemodialysis treatment today, with the goal to remove 2-1/2 L. Denies any acute dyspnea, although left-sided chest wall pain remains, exacerbated by deep inspiration. Ultrasound from 01/27/2018 has been reviewed, and showed left pleural effusion fluid pocket of 4.1 cm. Patient remains afebrile, on 2 L per nasal cannula his O2 sat at 94%. Denies coughing, denies respiratory distress. Denies any chest pain. Today's lab work shows WBC of 8.3, hemoglobin of 8.0, sodium is 133, potassium is 5.4, B1 is 61, creatinine is 10. Pleural fluid analysis showed high LDH and protein, consistent with exudative pleural effusion. Pleural fluid cytology is still pending at this time. Patient remains on a combination of Levaquin, Zosyn and vancomycin. Pleural fluid cultures are pending. No fevers, patient denies any chills. On 01/29/2018 patient seen in follow-up. Resting in bed, denies any acute distress. Yesterday he had his hemodialysis treatment, with removal of 2.8 L of fluid. Lung sounds are positive for crackles over right posterior lower lobe , and diminished lung sounds on the left. Awaiting to have his left thoracentesis by Dr. Malone this afternoon. Early on 2 L per nasal cannula with O2 sat at 95%. Denies any fevers, denies any chills, or chest pain. Left pleural fluid cytology is still pending at this time, pleural fluid cultures remain negative at this time. he has been afebrile, hemodynamically stable. Remains on a combination of vancomycin, Zosyn and Levaquin. Objective - Vital Signs Vital signs: Vital Signs Temp 98.9 F 01/29/18 07:00 Pulse 112 H 01/29/18 12:43 Resp 16 01/29/18 08:00 BP 160/93 01/29/18 07:00 Pulse Ox 95 01/29/18 07:00 Intake & Output 01/28/18 01/29/18 01/29/18 18:59 06:59 18:59 Intake Total 50 720 Balance 50 720 Weight 65.1 kg Intake: IV 50 Piperacillin-Tazobactam 3 50 .375 gm In Dextrose/Water 1 50ml.bag @ 12.5 mls/hr IVPB Q12H [facility] Rx#: [id number] Oral 720 Other: Voiding Method Toilet Toilet Toilet # Voids 3 1 - Exam GENERAL EXAM: Alert, pleasant, 47-year-old white male comfortable in no apparent distress. HEAD: Normocephalic/atraumatic. EYES: Normal reaction of pupils, equal size. Conjunctiva pink, sclera white. NOSE: Clear with pink turbinates. THROAT: No erythema or exudates. NECK: No masses, no JVD, no thyroid enlargement, no adenopathy. CHEST: No chest wall deformity. Symmetrical expansion. LUNGS: Equal air entry with no crackles, wheeze, rhonchi. There are diminished lung sounds over left posterior lower lobe. There is dullness to percussion along the left lung base CVS: Regular rate and rhythm, normal S1 and S2, no gallops, no murmurs, no rubs ABDOMEN: Soft, nontender. No hepatosplenomegaly, normal bowel sounds, no guarding or rigidity. EXTREMITIES: No clubbing, no edema, no cyanosis, 2+ pulses and upper and lower extremities. There is a right upper extremity functional AV fistula with positive bruit and thrill MUSCULOSKELETAL: Muscle strength and tone normal. SPINE: No scoliosis or deformity SKIN: No rashes CENTRAL NERVOUS SYSTEM: Alert and oriented -3. No focal deficits, tone is normal in all 4 extremities. PSYCHIATRIC: Alert and oriented -3. Appropriate affect. Intact judgment and insight. - Labs CBC & Chem 7: 01/29/18 08:33 01/29/18 08:33 Labs: Abnormal Lab Results - Last 24 Hours (Table) 01/29/18 01/29/18 Range/Units 08:33 08:33 RBC 2.68 L (4.30-5.90) m/uL Hgb 7.7 L (13.0-17.5) gm/dL Hct 25.2 L (39.0-53.0) % MCHC 30.6 L (31.0-37.0) g/dL RDW 16.3 H (11.5-15.5) % Lymphocytes # 0.7 L (1.0-4.8) k/uL BUN 33 H (9-20) mg/dL Creatinine 7.00 H* (0.66-1.25) mg/dL Glucose 151 H (74-99) mg/dL Microbiology - Last 24 Hours (Table) 01/28/18 19:26 Gram Stain - Preliminary Sputum Sputum Culture - Preliminary 01/24/18 00:56 Blood Culture - Preliminary Blood No Growth after 120 hours 01/24/18 14:31 Gram Stain - Final Pleural Fluid Body Fluid Culture - Final Assessment and Plan Plan: Assessment: 1 large left-sided pleural effusion, post thoracentesis and removal of 1 L of turbid pleural fluid from the left lung. The fluid is exudate and there is some residual loculated left-sided pleural effusion and subsequent CAT scan of the chest and some left lower lobe atelectasis and consolidation. The fluid is an exudate. Cultures are still pending for now. Pleuritic chest pain has recovered from the left lung. The follow-up CAT scan of the chest showed persistence of loculated left-sided pleural effusion although a smaller amount and there is also left lower lobe consolidation and atelectasis. Ultrasound of the chest from 01/27/2018 showed left pleural fluid pocket of 4.1 cm, we'll proceed with left thoracentesis this afternoon 2 large pericardial effusion without signs of clinical cardiac temponade and we are awaiting a echocardiogram and consultation with cardiology and cardiothoracic surgery. Note that the patient has only a small amount of pericardial effusion based on the CAT scan that was done back in December 2017. This pericardial effusion has progressively grown over the past 4 weeks. Rule out uremic pericarditis with pericardial effusion. Infectious pericarditis felt to be less likely. Malignancy is felt to be less likely. 3 recent hospitalization for a acute respiratory failure secondary to seizure activity and pneumonia, recovered on the right. Subsequently the patient developed a extensive pneumonia of the left and this is probably a aspiration pneumonia. 4 hypertension 5 left thalamus CVA from July 2017 6 chronic thrombocytopenia recovered and the platelet count has been normalized 7 concerns towards chronic alcoholism 8 End stage renal disease currently on hemodialysis 3 times a week 9 chronic anemia 10 spinal stenosis, chronic back pain, chronic cervical pain 11 nephrolithiasis 12 hyperlipidemia 13 seizure history with previous history of status epilepticus, currently on Keppra Plan Today's chest x-ray was reviewed, moderate-sized left pleural effusion and cardiomegaly, unchanged from prior exam. We'll proceed with left thoracentesis dissection and by Dr. Malone. Clinically patient denies any distress, denies any dyspnea, chest pain, remains on 2 L per nasal cannula, maintaining O2 saturations above 92%. Continue with current antibiotic coverage, pleural fluid cultures are still pending at this time. No fever, no chills. I performed a history & physical examination of the patient and discussed their management with my nurse practitioner, Kerry Kiran. I reviewed the nurse practitioner's note and agree with the documented findings and plan of care. Lung sounds are diminished over left lower base, with dullness to percussion. The findings and the impression was discussed with the patient. I attest to the documentation by the nurse practitioner. Time with Patient: Less than 30
--- NOTE | 2018-01-29 16:24 | XR ---
EXAMINATION TYPE: XR chest 1V portable DATE OF EXAM: 01/29/2018 COMPARISON: Chest x-ray earlier in the day INDICATION: Status post left thoracentesis TECHNIQUE: Single frontal view of the chest is obtained. FINDINGS: The heart size is enlarged. The pulmonary vasculature is normal. A moderate left pleural effusion is present. There is some improved aeration of the lower lung field suggesting diminished volume of the previous moderate pleural effusion. No pneumothorax is evident. IMPRESSION: 1. No pneumothorax postthoracentesis. 2. Opacity through the left lower lung field is similar to prior study. Left pleural effusion however is diminished. 3. Cardiomegaly.
--- NOTE | 2018-01-29 16:26 | OP ---
OPERATIVE REPORT LEFT-SIDED THORACENTESIS: PREOPERATIVE DIAGNOSIS: Left pleural effusion. POSTOPERATIVE DIAGNOSIS: Left pleural effusion. ANESTHESIA USED: Lidocaine 1%, 4 mL. PROCEDURE: The patient was placed in a sitting upright position. The area below the left scapula which was earlier localized by ultrasound was prepared in a sterile fashion and drapes were applied. The area at the tip of the scapula and eighth intercostal space was anesthetized locally with lidocaine, and a 26-gauge needle was inserted at the same site, advanced into the pleural space until the fluid was localized with the needle. Then a small tiny stab wound was made with a size 11 scalpel, and the standard thoracentesis catheter and needle were advanced into the same site into the pleural space until the fluid was obtained. Then the needle was pulled out of the pleural space and the catheter was advanced into the pleural space. Roughly 900 mL of slightly serosanguineous fluid was removed from the left pleural space. The procedure was well tolerated. No evidence of any immediate complications. The fluid was sent for different diagnostic studies. MMODL / IJN: [id number] /
[2018-01-29 16:51] LABS: Appearance,BF Cloudy; Color,BF Yellow; Nucleated Cells, Body Fluid 700 /uL; RBC, Body Fluid 9200 /uL
[2018-01-29 17:17] LABS: Total Cells Counted,Body Fluid 100
[2018-01-29 17:18] LABS: Mononuclear WBC,Body Fluid 35 %; Polynuclear WBC,Body Fluid 65 %
[2018-01-29] MEDS: hydrALAZINE HCL 20 MG/ML 1 ML VIAL IVP PRN (20:41)
[2018-01-29] MEDS: MELATONIN 5 MG TABLET PO SCH (20:42)
[2018-01-29] MEDS: cloNIDine HCL 0.1 MG TAB PO SCH (20:43)
[2018-01-29] MEDS: QUEtiapine 25 MG TAB PO SCH (20:43)
[2018-01-29] MEDS: LISINOPRIL 10 MG TAB PO SCH (20:43)
[2018-01-29] MEDS: ACETAMINOPHEN TAB 325 MG TAB PO PRN (20:52)
--- NOTE | 2018-01-29 21:32 | PN ---
PROGRESS NOTE The patient is seen for followup for end-stage renal disease. The patient is a currently being followed by Cardiothoracic Surgery for apparent large pericardial effusion and pleural effusion. He is scheduled for thoracentesis again today. It looks like about 900 mL of fluid was obtained. Given the pericardial effusion, patient will be maintained on daily dialysis for now without heparin. EXAMINATION: Blood pressure was 160/93 earlier this morning, heart rate of 112 per minute. Patient is afebrile. HEART: S1, S2. LUNGS: Decreased breath sounds at the bases. Bilateral breath sounds are heard. Abdomen is soft, nontender. Lower extremities show no evidence of edema. [employer] is grossly intact. LABS: Revealed sodium 137, potassium 4.9, BUN 33, serum creatinine 7.0. Hemoglobin was 7.7 g/dL. ASSESSMENT: 1. End-stage renal disease, on hemodialysis on a Saturday, , Saturday schedule, currently being dialyzed on a daily basis secondary to pericardial effusion, although as outpatient patient has been compliant with his treatments and his clearances have been adequate. 2. Pleural effusion, status post thoracentesis again today. The patient has been febrile as well. He is being treated with antibiotics. Fluid cultures have been negative from previous Staphylococcus. 3. History of left thalamic cerebrovascular accident in July of 2017. PLAN: Continue with daily dialysis. We will adjust blood pressure medications. MMODL / IJN: [id number] /
--- NOTE | 2018-01-29 22:51 | P.PN ---
Subjective Progress Note Date: 01/28/18 Principal diagnosis: Pleural effusion Patient is a 47-year-old male with a known history of ESRD on hemodialysis TTS and multiple medical problems came to ER with complaints of shortness of breath. Patient had last hemodialysis on Saturday. Patient is supposed to get hemodialysis yesterday but he missed his dialysis. Patient was previously admitted in November 2017 for acute respiratory failure and aspiration pneumonia and was also started on antiepileptic drugs during that admission. Patient otherwise denied any fever or chills. No nausea vomiting or abdominal pain. No diarrhea. No cough or sputum production. Influenza PCR negative Chest x-ray showed large left-sided pleural effusion and patchy infiltrate on the right lung Patient is being admitted with possible pneumonia. Nephrology and pulmonary is consulted. Patient underwent thoracentesis with 1 L fluid removal and fluid analysis was sent. 01/25/2018 Patient says that his breathing is better today. Patient underwent thoracentesis with 1 L fluid removal from the left lung on 01/24/2018 CT chest showed large pericardial effusion and pulmonary vascular congestion along with small left-sided pleural effusion. Patient had hemodialysis yesterday. Chest x-rays today showed large pericardial effusion as well. CT surgery was consulted and is waiting for admonitions. No complaints of chest pain. No nausea vomiting or abdominal pain. No fever no chills. 01/26/2018 Patient did improve symptomatically. CT of the chest showed loculated left- sided pleural effusion and large. Currently effusion CT surgery was consulted. Considering for urticarial window. And possible VATS. No evidence of pericardial tamponade in the 2-D echocardiogram. Pleural fluid culture negative. Patient is being continued on hemodialysis as scheduled. No other acute overnight issues 01/27/2018 Chest ultrasound showed 4 cm loculated left-sided pleural effusion. Otherwise patient was seen by CT surgery and considering pericardiocentesi/ pericardial window . Otherwise patient did improve symptomatically. No nausea vomiting or abdominal pain. No fever no chills. Continued on broad-spectrum antibiotics otherwise. Pulmonary and CT surgery is following. On 01/28/2018 Patient denied any worsening shortness of breath or chest pain. Patient getting hemodialysis today. Otherwise does have chest pain with deep breathing. Patient has been afebrile. Pulmonary is following. Pleural fluid is consistent with exudative type. Cytology is pending. Otherwise patient being continued on vancomycin and Zosyn and Levaquin. CT surgery is following. All other review of systems negative except the above. Current medications reviewed. Objective - Vital Signs Vital signs: Vital Signs Temp 98.1 F 01/28/18 15:00 Pulse 107 H 01/28/18 15:00 Resp 18 01/28/18 15:00 BP 164/101 01/28/18 15:00 Pulse Ox 99 01/28/18 15:00 Intake & Output 01/28/18 01/28/18 01/29/18 06:59 18:59 06:59 Intake Total 125 Balance 125 Weight 65.1 kg Intake: Intake, IV Titration 25 Amount Piperacillin-Tazobactam 3 25 .375 gm In Dextrose/Water 1 50ml.bag @ 12.5 mls/hr IVPB Q12H [facility] Rx#: [id number] Oral 100 Other: Voiding Method Toilet Toilet Urinal # Voids 1 3 - Exam Patient is lying in the bed comfortably, no acute distress, awake alert and oriented.. HEENT: Normocephalic. Neck is supple. Pupils reactive. Nostrils clear. Oral cavity is moist. Ears reveal no drainage. Neck reveals no JVD, carotid bruits, or thyromegaly. CHEST EXAMINATION: Trachea is central. Symmetrical expansion. Diminished breath sounds and left basilar crackles. No wheezing CARDIAC: Normal S1, S2 with no gallops. No murmurs ABDOMEN: Soft. Bowel sounds normal. No organomegaly. No abdominal bruits. Extremities: reveal no edema. No clubbing or cyanosis Neurologically awake, alert, oriented x3 with well-coordinated movements. No focal deficits noted Skin: No rash or skin lesions. Psychiatric: Cooperative. Nonsuicidal Musculoskeletal: No joint swelling or deformity. Normal range of motion. - Labs CBC & Chem 7: 01/29/18 08:33 01/29/18 08:33 Labs: Abnormal Lab Results - Last 24 Hours (Table) 01/28/18 01/28/18 Range/Units 07:54 07:54 RBC 2.69 L (4.30-5.90) m/uL Hgb 8.0 L (13.0-17.5) gm/dL Hct 25.1 L (39.0-53.0) % RDW 16.0 H (11.5-15.5) % Lymphocytes # 0.9 L (1.0-4.8) k/uL Sodium 133 L (137-145) mmol/L Potassium 5.4 H (3.5-5.1) mmol/L Chloride 93 L (98-107) mmol/L BUN 61 H (9-20) mg/dL Creatinine 10.00 H* (0.66-1.25) mg/dL Microbiology - Last 24 Hours (Table) 01/24/18 14:31 Gram Stain - Final Pleural Fluid Body Fluid Culture - Final 01/24/18 00:56 Blood Culture - Preliminary Blood No Growth after 96 hours Assessment and Plan Assessment: Shortness of breath due to left large pleural effusion. Possible parapneumonic effusion is being considered. With the recent pneumonic infiltrate of the lingula Large pericardial effusion Pneumonia with bilateral lower lobe pulmonary infiltrates. Recent hospitalization for status of her progress and acute respiratory failure with pneumonia Hypertension Hyperlipidemia ESRD on hemodialysis. 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 Pulmonary and nephrology is following. Patient underwent thoracentesis with 1 L fluid removal. Follow-up fluid analysis. Hemodialysis as per nephrology. CT surgery evaluation is pending at this time for possible pericardiocentesis Continue with home medications and further recommendations based on the clinical course. Prognosis is guarded with multiple medical problems and comorbid conditions. Time with Patient: Greater than 30
--- NOTE | 2018-01-29 22:57 | P.PN ---
Subjective Progress Note Date: 01/29/18 Principal diagnosis: Pleural effusion Patient is a 47-year-old male with a known history of ESRD on hemodialysis TTS and multiple medical problems came to ER with complaints of shortness of breath. Patient had last hemodialysis on Saturday. Patient is supposed to get hemodialysis yesterday but he missed his dialysis. Patient was previously admitted in November 2017 for acute respiratory failure and aspiration pneumonia and was also started on antiepileptic drugs during that admission. Patient otherwise denied any fever or chills. No nausea vomiting or abdominal pain. No diarrhea. No cough or sputum production. Influenza PCR negative Chest x-ray showed large left-sided pleural effusion and patchy infiltrate on the right lung Patient is being admitted with possible pneumonia. Nephrology and pulmonary is consulted. Patient underwent thoracentesis with 1 L fluid removal and fluid analysis was sent. 01/25/2018 Patient says that his breathing is better today. Patient underwent thoracentesis with 1 L fluid removal from the left lung on 01/24/2018 CT chest showed large pericardial effusion and pulmonary vascular congestion along with small left-sided pleural effusion. Patient had hemodialysis yesterday. Chest x-rays today showed large pericardial effusion as well. CT surgery was consulted and is waiting for admonitions. No complaints of chest pain. No nausea vomiting or abdominal pain. No fever no chills. 01/26/2018 Patient did improve symptomatically. CT of the chest showed loculated left- sided pleural effusion and large. Currently effusion CT surgery was consulted. Considering for urticarial window. And possible VATS. No evidence of pericardial tamponade in the 2-D echocardiogram. Pleural fluid culture negative. Patient is being continued on hemodialysis as scheduled. No other acute overnight issues 01/27/2018 Chest ultrasound showed 4 cm loculated left-sided pleural effusion. Otherwise patient was seen by CT surgery and considering pericardiocentesi/ pericardial window . Otherwise patient did improve symptomatically. No nausea vomiting or abdominal pain. No fever no chills. Continued on broad-spectrum antibiotics otherwise. Pulmonary and CT surgery is following. On 01/28/2018 Patient denied any worsening shortness of breath or chest pain. Patient getting hemodialysis today. Otherwise does have chest pain with deep breathing. Patient has been afebrile. Pulmonary is following. Pleural fluid is consistent with exudative type. Cytology is pending. Otherwise patient being continued on vancomycin and Zosyn and Levaquin. CT surgery is following. 01/29/2018 Patient is able to ambulate otherwise denied any chest pain. At rest. No worsening shortness of breath. Patient has been tachycardic otherwise. Chest x -ray showed moderate left pleural effusion. patient underwent thoracentesis today. Cytology from previous thoracentesis showed no malignant cells. Otherwise patient denied any fever or chills. Fluid cultures were negative. Continued on current antibiotics in the form of vancomycin and Zosyn and Levaquin No other acute overnight issues. All other review of systems negative except the above. Current medications reviewed. Active Medications Acetaminophen (Tylenol Tab) 650 mg PO Q6HR PRN PRN Reason: Fever and/ or Pain Last Admin: 01/29/18 20:52 Dose: 650 mg Albuterol/Ipratropium (Duoneb 0.5 Mg-3 Mg/3 Ml Soln) 3 ml INHALATION RT-QID [facility] Last Admin: 01/29/18 19:32 Dose: 3 ml Amlodipine Besylate (Norvasc) 5 mg PO BID [facility] Last Admin: 01/29/18 20:43 Dose: 5 mg Aspirin (Aspirin) 325 mg PO DAILY [facility] Last Admin: 01/29/18 07:46 Dose: 325 mg Atorvastatin Calcium (Lipitor) 20 mg PO DAILY [facility] Last Admin: 01/29/18 07:45 Dose: 20 mg Calcium Acetate (Phoslo) 667 mg PO TID-W/MEALS [facility] Last Admin: 01/29/18 17:57 Dose: 667 mg Clonidine (Catapres) 0.1 mg PO BID [facility] Last Admin: 01/29/18 20:43 Dose: 0.1 mg Darbepoetin Jim (Aranesp) 40 mcg SQ Q7D [facility] Last Admin: 01/24/18 16:22 Dose: 40 mcg Enoxaparin Sodium (Lovenox) 30 mg SQ DAILY [facility] Last Admin: 01/29/18 07:46 Dose: 30 mg Ergocalciferol (Vitamin D2) 50,000 unit PO Q30D [facility] Gabapentin (Neurontin) 100 mg PO BID [facility] Last Admin: 01/29/18 20:43 Dose: 100 mg Hydralazine HCl (Apresoline) 10 mg IVP Q4HR PRN PRN Reason: Blood Pressure - High Last Admin: 01/29/18 20:41 Dose: 10 mg Piperacillin/Tazobactam/ (Dextrose 3.375 gm/ IV Solution) 50 mls @ 12.5 mls/hr IVPB Q12H [facility] Last Admin: 01/29/18 21:11 Dose: 12.5 mls/hr Vancomycin HCl 1,250 mg/ (Sodium Chloride) 250 mls @ 125 mls/hr IVPB ONCE ONE Stop: 01/30/18 07:59 Levetiracetam (Keppra) 1,000 mg PO Q12HR [facility] Last Admin: 01/29/18 20:42 Dose: 1,000 mg Levofloxacin (Levaquin) 500 mg PO Q48H [facility] Last Admin: 01/28/18 08:57 Dose: 500 mg Lisinopril (Zestril) 10 mg PO BID [facility] Last Admin: 01/29/18 20:43 Dose: 10 mg Melatonin (Melatonin) 5 mg PO HS [facility] Last Admin: 01/29/18 20:42 Dose: 5 mg Methocarbamol (Robaxin) 750 mg PO TID PRN PRN Reason: MODERATE MUSCLE PAIN Last Admin: 01/28/18 20:01 Dose: 750 mg Miscellaneous Information (Pharmacy To Dose Iv Vancomycin) 1 each MISCELLANE DIRECTED PRN PRN Reason: Per Protocol Miscellaneous Information (Pneumonia Protocol Utilized) 1 each PO ONCE PRN PRN Reason: Per Protocol Nicotine (Habitrol 14mg/24hr Patch) 1 patch TRANSDERM DAILY [facility] Last Admin: 01/29/18 07:51 Dose: Not Given Quetiapine Fumarate (Seroquel) 25 mg PO [facility] Last Admin: 01/29/18 20:43 Dose: 25 mg Spironolactone (Aldactone) 50 mg PO DAILY [facility] Last Admin: 01/29/18 07:45 Dose: 50 mg Objective - Vital Signs Vital signs: Vital Signs Temp 99.0 F 01/29/18 22:07 Pulse 128 H 01/29/18 22:07 Resp 18 01/29/18 22:07 BP 137/90 01/29/18 22:07 Pulse Ox 92 L 01/29/18 22:07 Intake & Output 01/29/18 01/29/18 01/30/18 06:59 18:59 06:59 Intake Total 50 1610 Output Total 50 Balance 50 1560 Weight 65.6 kg Intake: IV 50 Piperacillin-Tazobactam 3 50 .375 gm In Dextrose/Water 1 50ml.bag @ 12.5 mls/hr IVPB Q12H [facility] Rx#: [id number] Intake, IV Titration 50 Amount Piperacillin-Tazobactam 3 50 .375 gm In Dextrose/Water 1 50ml.bag @ 12.5 mls/hr IVPB Q12H [facility] Rx#: [id number] Oral 1560 Output: Urine 50 Other: Voiding Method Toilet Toilet # Voids 1 2 - Exam Patient is lying in the bed comfortably, no acute distress, awake alert and oriented.. HEENT: Normocephalic. Neck is supple. Pupils reactive. Nostrils clear. Oral cavity is moist. Ears reveal no drainage. Neck reveals no JVD, carotid bruits, or thyromegaly. CHEST EXAMINATION: Trachea is central. Symmetrical expansion. Diminished breath sounds and left basilar crackles. No wheezing CARDIAC: Normal S1, S2 with no gallops. No murmurs ABDOMEN: Soft. Bowel sounds normal. No organomegaly. No abdominal bruits. Extremities: reveal no edema. No clubbing or cyanosis Neurologically awake, alert, oriented x3 with well-coordinated movements. No focal deficits noted Skin: No rash or skin lesions. Psychiatric: Cooperative. Nonsuicidal Musculoskeletal: No joint swelling or deformity. Normal range of motion. - Labs CBC & Chem 7: 01/29/18 08:33 01/29/18 08:33 Labs: Abnormal Lab Results - Last 24 Hours (Table) 01/29/18 01/29/18 Range/Units 08:33 08:33 RBC 2.68 L (4.30-5.90) m/uL Hgb 7.7 L (13.0-17.5) gm/dL Hct 25.2 L (39.0-53.0) % MCHC 30.6 L (31.0-37.0) g/dL RDW 16.3 H (11.5-15.5) % Lymphocytes # 0.7 L (1.0-4.8) k/uL BUN 33 H (9-20) mg/dL Creatinine 7.00 H* (0.66-1.25) mg/dL Glucose 151 H (74-99) mg/dL Microbiology - Last 24 Hours (Table) 01/28/18 19:26 Gram Stain - Preliminary Sputum Sputum Culture - Preliminary 01/24/18 00:56 Blood Culture - Preliminary Blood No Growth after 120 hours 01/24/18 14:31 Gram Stain - Final Pleural Fluid Body Fluid Culture - Final Assessment and Plan Assessment: Shortness of breath due to left large pleural effusion. Possible parapneumonic effusion is being considered. With the recent pneumonic infiltrate of the lingula Large pericardial effusion Pneumonia with bilateral lower lobe pulmonary infiltrates. Recent hospitalization for status of her progress and acute respiratory failure with pneumonia Hypertension Hyperlipidemia ESRD on hemodialysis. 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 Pulmonary and nephrology is following. Patient underwent thoracentesis with 1 L fluid removal on 01/24/2018. Patient again had left thoracentesis on 01/29/2018. Fluid cultures showed no growth. cytology showed no malignant cells. Fluid is exudative. Hemodialysis as per nephrology. CT surgery is following. Continue with home medications and further recommendations based on the clinical course. Prognosis is guarded with multiple medical problems and comorbid conditions. Time with Patient: Greater than 30
[2018-01-30 02:06] LABS: Total Protein, Body Fluid 517 mg/dL
[2018-01-30] MEDS ORDERED: VANCOMYCIN 1,250 MG in SODIUM CHLORIDE 0.9% 250 ML IVPB ONE (06:00)
[2018-01-30] MEDS: IPRATROPIUM-ALBUTEROL 3 ML NEB INHALATION SCH ×4 (07:15→19:39)
--- NOTE | 2018-01-30 09:00 | CT ---
EXAMINATION TYPE: CT chest wo con DATE OF EXAM: 01/30/2018 COMPARISON: 01/24/2018 HISTORY: 47-year-old male Left Pleural Effusion, further characterize. TECHNIQUE: Contiguous axial scanning of the chest without IV contrast. Coronal and sagittal reconstru ctions performed. CT DLP: 276.5 mGycm Automated exposure control for dose reduction was used. FINDINGS: Heart is normal size with coronary vessel calcifications which are remarkable for coronary artery dis ease. However, there is a very large pericardial effusion, slightly increased from 01/24/2018 measuring 3.1 c m thick versus 2.9 cm, previously. The aorta is normal-caliber with conventional branching anatomy. Scattered prominent but nonenlarged mediastinal lymph nodes are similar. Mild emphysema. Left apical pleural parenchymal scarring. Strandy areas of atelectasis throughout the right mid and lower lung with more patchy opacity peripheral basilar right lower lobe relatively sim ilar to prior though the previous right effusion shows improvement with only trace effusion remaining . There is partial lingular collapse, improved aeration at the left lower lobe with residual small pleu ral effusion. Some loculated component to the pleural fluid may be present along the posteromedial ba se measuring up to 6.2 x 3.5 cm, axial image 45 and peripheral left lower lobe measuring 5.4 x 1.7 cm on axial image 39. There is collapse of lateral basilar segmental left lower lobe and residual patchy groundglass opacit y in the basilar left lower lobe. The kidneys are atrophic. Hyperdense lesion measuring 1.8 cm at the left upper pole shows fluid atten uation and is unchanged suggestive of a cyst. Bones: Endplate spondylosis mid to lower thoracic spine. IMPRESSION: 1. CONTINUED LARGE PERICARDIAL EFFUSION, SLIGHTLY INCREASED BY A COUPLE MILLIMETERS (NOW MEASURING 3. 1 CM THICK). 2. A SMALL LEFT PLEURAL EFFUSION REMAINS. THIS MAY HAVE SOME AREAS OF LOCULATION POSTEROMEDIAL LEFT B ASE AND PERIPHERAL LEFT LOWER LOBE. 3. PARTIAL LINGULAR COLLAPSE AND LATERAL BASILAR SEGMENTAL COLLAPSE. 4. PATCHY AREAS OF AIRSPACE DISEASE REMAIN IN THE BASILAR LOWER LOBES ON BOTH SIDES. 5. IMPROVED, NOW TRACE RIGHT EFFUSION.
[2018-01-30] MEDS: PIPERACILLIN-TAZOBACTAM 3.375 GM in DEXTROSE/WATER 1 50ML.BAG IVPB SCH ×2 (09:14→17:09)
[2018-01-30] MEDS: LEVOFLOXACIN 500 MG TAB PO SCH (09:17)
[2018-01-30] MEDS: CALCIUM ACETATE 667 MG CAP PO SCH ×3 (09:17→18:52)
[2018-01-30] MEDS: amLODIPine 5 MG TAB PO SCH ×2 (09:17→20:41)
[2018-01-30] MEDS: ASPIRIN 325 MG TAB PO SCH (09:17)
[2018-01-30] MEDS: ATORVASTATIN 20 MG TAB PO SCH (09:17)
[2018-01-30] MEDS: LISINOPRIL 10 MG TAB PO SCH ×2 (09:17→20:41)
[2018-01-30] MEDS: cloNIDine HCL 0.1 MG TAB PO SCH (09:17)
[2018-01-30] MEDS: GABAPENTIN 100 MG CAP PO SCH ×2 (09:18→20:41)
[2018-01-30] MEDS: levETIRAcetam 500 MG TAB PO SCH ×2 (09:18→20:41)
[2018-01-30] MEDS: ENOXAPARIN 30 MG/0.3 ML SYRINGE SQ SCH (09:20)
[2018-01-30] MEDS: SPIRONOLACTONE 25 MG TAB PO SCH (09:22)
[2018-01-30] MEDS: NICOTINE 14MG/24HR PATCH TRANSDERM SCH (09:22)
--- NOTE | 2018-01-30 11:45 | P.PN ---
Subjective Progress Note Date: 01/30/18 Principal diagnosis: Large left-sided pleural parapneumonic effusion, status post thoracentesis 2. Large pericardial effusion without tamponade. 47-year-old male patient, presented to the hospital because of worsening shortness of breath. The patient has multiple medical problems and comorbidities. The patient was in the hospital back in and at that time the patient was in acute respiratory failure and aspiration pneumonia was suspected knowing that the patient was having generalized tonic-clonic seizures. The patient at that time presented to the hospital post ictal with altered mentation and he was combative. He was treated and he was stabilized. He was placed on antiepileptic medication. He is known also to have end-stage renal disease and he is on hemodialysis 3 times a week, TTS, and he has been very compliant and he has not missed any of his dialysis sessions. 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 Upon discharge, the patient was released home on Augmentin 875 mg 1 tablet by mouth twice a day. He was also receiving Keppra for his seizure activity. He was seen in our office on 01/13/2018 and the patient had a new infiltrate in the lingula and the left lower lobe and there was obvious improved aeration of the right lower lobe. Small bilateral pleural effusion was noted. Over the next 1-2 week, the patient's condition got worse and he came into the hospital yesterday with a large left-sided pleural effusion. He did spike a temperature earlier and currently is afebrile. His white cell count is not elevated at 10.7. Rest of the electrolytes are consistent with his renal failure knowing that the patient a BUN of 40 with a creatinine of 10.5 and his potassium level is at 4.6. Currently is on a combination of Zosyn and vancomycin. Based on this large left-sided pleural effusion, a pulmonary consultation was requested. I saw this patient. I did a side thoracentesis during which I removed a total of 1000 ML's of pleural fluid. I should be able to take more fluids yet the patient experienced increased pain and pleurisy along the left lung and I had to stop the procedure. I'm sure there is more fluid left within his left pleural space. A subsequent chest x-ray showed no evidence of any pneumothorax and there is some limited improvement in the aeration of the left lung with residual atelectasis/consolidation/effusion the left lung base. The pleural fluid was sent for analysis. On 01/25/2018 I'm seeing this patient for a follow-up. The patient is doing slightly better compared to yesterday. The patient underwent a thoracentesis yesterday and after removing around 1 L of pleural fluid, the patient became symptomatic and he developed pleuritic left sided chest pain that was brief and ultimately recovered. I had to abort the procedure. Chest x-ray showed persistent opacification of left lung base and based on that I performed a CAT scan of the chest which showed a large pericardial effusion, residual located left-sided pleural effusion and left lower lobe consolidation/atelectasis. Based on the CAT scan findings, an echocardiogram was ordered and the patient was asked to be seen by cardiology and cardiothoracic surgery. He is currently on broad-spectrum antibiotics. He is afebrile. He underwent dialysis yesterday and nephrology is on the case regarding his dialysis schedule. Suspect a parapneumonic complicated left-sided pleural effusion special that the pleural fluid that was drained from the left side showed elevated LDH and protein. We are awaiting the cultures. I also awaiting the fluid cytology. The white cell count is not elevated. The creatinine is down to 7.7. Potassium level is at 5.9 and the patient will have a follow-up with nephrology. On 01/26/2018, the patient is being seen for a follow-up. The patient is a complicated left lung pneumonia with parapneumonic effusion that was drained and the fluid was an exudate. Subsequent CAT scan of the chest showed residual loculated left-sided pleural effusion and a large pericardial effusion. Consult cardiology. Consult cardiothoracic surgery. Discussed the case with the surgeon. The patient will need a window and possibly a VATS tomorrow in regards to these abnormalities. Echocardiogram was completed and there is no evidence of temporal not. Final report is not available to me at this point. Meanwhile, the pleural fluid cultures of been negative and the patient on broad- spectrum antibiotics. The patient received dialysis yesterday. No dialysis for today. He usually gets dialyzed 3 times a week, Tuesdays and Saturdays. White cell count is not elevated. The patient has been afebrile hemodynamically stable. Potassium is at 4.3. On 01/27/2018 patient is seen in follow-up on medical surgical floor. He is resting in bed, denies any acute distress. Still has sharp left-sided chest pain with deep inspiration, but denies any chest pain, denies any dyspnea. Currently on 2 L per nasal cannula with O2 sat at 94%. Hemodynamically stable. Did have a couple episodes of low grade fevers of 99.8F, his last hemodialysis treatment was on Saturday. He is expected to have his scheduled hemodialysis treatment tomorrow. Today's lab work shows sodium of 135, BUN of 44, creatinine is 8.13. Serum potassium is 5.0. Patient was seen by CT surgery in regards to moderate-sized pericardial effusion, for evaluation for open pericardiectomy. Patient's left pleural fluid cytology is still pending, and so are the pleural fluid cultures. he remains on a combination of vancomycin, Zosyn, and Levaquin. On 01/28/2018 patient seen again in follow-up. He is having his hemodialysis treatment today, with the goal to remove 2-1/2 L. Denies any acute dyspnea, although left-sided chest wall pain remains, exacerbated by deep inspiration. Ultrasound from 01/27/2018 has been reviewed, and showed left pleural effusion fluid pocket of 4.1 cm. Patient remains afebrile, on 2 L per nasal cannula his O2 sat at 94%. Denies coughing, denies respiratory distress. Denies any chest pain. Today's lab work shows WBC of 8.3, hemoglobin of 8.0, sodium is 133, potassium is 5.4, B1 is 61, creatinine is 10. Pleural fluid analysis showed high LDH and protein, consistent with exudative pleural effusion. Pleural fluid cytology is still pending at this time. Patient remains on a combination of Levaquin, Zosyn and vancomycin. Pleural fluid cultures are pending. No fevers, patient denies any chills. On 01/29/2018 patient seen in follow-up. Resting in bed, denies any acute distress. Yesterday he had his hemodialysis treatment, with removal of 2.8 L of fluid. Lung sounds are positive for crackles over right posterior lower lobe , and diminished lung sounds on the left. Awaiting to have his left thoracentesis by Dr. Malone this afternoon. Early on 2 L per nasal cannula with O2 sat at 95%. Denies any fevers, denies any chills, or chest pain. Left pleural fluid cytology is still pending at this time, pleural fluid cultures remain negative at this time. he has been afebrile, hemodynamically stable. Remains on a combination of vancomycin, Zosyn and Levaquin. The patient is seen again today 01/30/2018 in follow-up on the regular medical floor. He is awake and alert in no acute distress. He denies any worsening shortness of breath, cough or congestion. He is maintaining good O2 saturations in the low 90s on room air. He remains afebrile. Hemodynamically stable. He did undergo another left-sided thoracentesis by Dr. Fraire yesterday. On the third 900 mL also slightly serosanguineous fluid was removed. Pathology is pending. A follow-up computed tomography scan of the chest performed this morning revealed a continued large pericardial effusion slightly increased by a couple of millimeters. There is also a small left pleural effusion that remains. There is some areas of loculation in the posterior medial left base and peripheral left lower lobe. There is partial lingular collapse and lateral basilar segmental collapse. He remains pain she ears areas of airspace disease in the basilar lower lobes on both sides. Improved with a trace right pleural effusion. The plan now is for a VATS procedure and pericardial window to be performed by CT surgery tomorrow. Objective - Vital Signs Vital signs: Vital Signs Temp 98.0 F 01/30/18 07:00 Pulse 106 H 01/30/18 11:04 Resp 20 01/30/18 07:00 BP 139/81 01/30/18 07:00 Pulse Ox 94 L 01/30/18 07:15 Intake & Output 01/29/18 01/30/18 01/30/18 18:59 06:59 18:59 Intake Total 1610 1215 Output Total 50 Balance 1560 1215 Weight 65.6 kg Intake: IV 250 Piperacillin-Tazobactam 3 250 .375 gm In Dextrose/Water 1 50ml.bag @ 12.5 mls/hr IVPB Q12H [facility] Rx#: [id number] Intake, IV Titration 50 425 Amount Piperacillin-Tazobactam 3 50 50 .375 gm In Dextrose/Water 1 50ml.bag @ 12.5 mls/hr IVPB Q12H [facility] Rx#: [id number] Vancomycin 1,250 mg In 375 Sodium Chloride 0.9% 250 ml @ 125 mls/hr IVPB ONCE ONE Rx#:[id number] Oral 1560 540 Output: Urine 50 Other: Voiding Method Toilet # Voids 2 1 - Exam GENERAL EXAM: Alert, pleasant, 47-year-old white male comfortable in no apparent distress. HEAD: Normocephalic/atraumatic. EYES: Normal reaction of pupils, equal size. Conjunctiva pink, sclera white. NOSE: Clear with pink turbinates. THROAT: No erythema or exudates. NECK: No masses, no JVD, no thyroid enlargement, no adenopathy. CHEST: No chest wall deformity. Symmetrical expansion. LUNGS: Equal air entry with no crackles, wheeze, rhonchi. There are diminished lung sounds over left posterior lower lobe. There is dullness to percussion along the left lung base CVS: Regular rate and rhythm, normal S1 and S2, no gallops, no murmurs, no rubs ABDOMEN: Soft, nontender. No hepatosplenomegaly, normal bowel sounds, no guarding or rigidity. EXTREMITIES: No clubbing, no edema, no cyanosis, 2+ pulses and upper and lower extremities. There is a right upper extremity functional AV fistula with positive bruit and thrill MUSCULOSKELETAL: Muscle strength and tone normal. SPINE: No scoliosis or deformity SKIN: No rashes CENTRAL NERVOUS SYSTEM: Alert and oriented -3. No focal deficits, tone is normal in all 4 extremities. PSYCHIATRIC: Alert and oriented -3. Appropriate affect. Intact judgment and insight. - Labs CBC & Chem 7: 01/29/18 08:33 01/29/18 08:33 Labs: Microbiology - Last 24 Hours (Table) 01/24/18 00:56 Blood Culture - Final Blood No Growth after 144 hours 01/29/18 15:30 Acid Fast Bacilli Culture - Preliminary Thoracentesis Fluid 01/29/18 15:30 Fungal Culture - Preliminary Thoracentesis Fluid 01/29/18 15:30 Body Fluid Culture - Preliminary Thoracic Fluid Assessment and Plan Assessment: Assessment: 1 large left-sided pleural effusion, post thoracentesis and removal of 1 L of turbid pleural fluid from the left lung. The fluid is exudate and there is some residual loculated left-sided pleural effusion and subsequent CAT scan of the chest and some left lower lobe atelectasis and consolidation. The fluid is an exudate. Cultures are still pending for now. Pleuritic chest pain has recovered from the left lung. The follow-up CAT scan of the chest showed persistence of loculated left-sided pleural effusion although a smaller amount and there is also left lower lobe consolidation and atelectasis. Ultrasound of the chest from 01/27/2018 showed left pleural fluid pocket of 4.1 cm, status post second thoracentesis of another 900 mL's removed. 2 large pericardial effusion without signs of clinical cardiac temponade and we are awaiting a echocardiogram and consultation with cardiology and cardiothoracic surgery. Note that the patient has only a small amount of pericardial effusion based on the CAT scan that was done back in December 2017. This pericardial effusion has progressively grown over the past 4 weeks. Rule out uremic pericarditis with pericardial effusion. Infectious pericarditis felt to be less likely. Malignancy is felt to be less likely. 3 recent hospitalization for a acute respiratory failure secondary to seizure activity and pneumonia, recovered on the right. Subsequently the patient developed a extensive pneumonia of the left and this is probably a aspiration pneumonia. 4 hypertension 5 left thalamus CVA from July 2017 6 chronic thrombocytopenia recovered and the platelet count has been normalized 7 concerns towards chronic alcoholism 8 End stage renal disease currently on hemodialysis 3 times a week 9 chronic anemia 10 spinal stenosis, chronic back pain, chronic cervical pain 11 nephrolithiasis 12 hyperlipidemia 13 seizure history with previous history of status epilepticus, currently on Keppra Plan The patient was seen and evaluated by Dr. Fraire. His CAT scan was reviewed. There is still some left sided pleural effusion and some of which is loculated and a slightly increased pericardial effusion. The plan is for pericardial window and VATS procedure of the left lung tomorrow by cardiothoracic surgeons. In the interim, we'll continue the patient's current medications. He is in no acute respiratory distress. He remains on vancomycin, Zosyn and Levaquin. Continue bronchodilators. We'll continue to follow and make further recommendations based on his clinical status. I, the cosigning physician, performed a history & physical examination of the patient. Lungs sounds have crackles in the posterior bases left greater than right. Maintaining good O2 saturations in the 90s on room air. I discussed the assessment and plan of care with my nurse practitioner, Jing Patterson. I attest to the above note as dictated by her.
[2018-01-30 11:51] VITALS: BMI 24.8
[2018-01-30 12:50] LABS: Calcium 8.8 mg/dL (8.4-10.2); Potassium 5.1 mmol/L (3.5-5.1)
[2018-01-30 13:27] LABS: Anisocytosis Slight; Basophils % (A) 0 %; Eosinophils # (A) 0.1 k/uL (0-0.7); Eosinophils % (A) 1 %; HGB 7.2 gm/dL (13.0-17.5); Hypochromasia Moderate; Lymphocytes # (A) 0.6 k/uL (1.0-4.8); Lymphocytes % (A) 7 %; MCH 28.1 pg (25.0-35.0); MCHC 30.2 g/dL (31.0-37.0); Mean Platelet Volume 7.4; Monocytes # (A) 0.5 k/uL (0-1.0); Monocytes % (A) 6 %; Neutrophils % (A) 84 %; Platelet Count 335 k/uL (150-450); Poikilocytosis Slight; RBC 2.58 m/uL (4.30-5.90); RDW 16.5 % (11.5-15.5); WBC 8.3 k/uL (3.8-10.6)
--- NOTE | 2018-01-30 16:51 | PN ---
PROGRESS NOTE Patient is seen for followup for end-stage renal disease. Currently he is being dialyzed on a daily basis. Patient had a thoracentesis. He also had a repeat chest CT this morning which showed continued large pericardial effusion, perhaps slightly increased, small left pleural effusion, partial lingular collapse, patchy areas of airspace disease in the lower lobes. Blood pressure has been high but is much better controlled now. Patient denies any significant complaints. On examination, blood pressure was 153/59, heart rate 110 per minute. He is afebrile. EXAMINATION OF THE HEART: S1, S2. EXAMINATION OF LUNGS: Bilateral breath sounds are heard. ABDOMEN: Soft, non-tender. Examination of lower extremities shows no evidence of edema. Labs show potassium 5.1 from today. Serum creatinine is 5.4, hemoglobin 7.2 g/dL. ASSESSMENT: 1. End-stage renal disease, on hemodialysis on a Saturday, , Saturday schedule, currently being dialyzed daily in view of the pericardial effusion. 2. Large pericardial effusion noted on CT, which may be slightly larger on the CT scan, being followed by Pulmonary and Cardiothoracic Surgery. It is unclear if there are plans for pericardiocentesis. 3. Pleural effusion, status post thoracentesis which appears to be an exudate. PLAN: Repeat hemodialysis today. No significant ultrafiltration. Patient states that he was taken off of clonidine; therefore I will discontinue the clonidine which was started yesterday. Continue other blood pressure medications as prescribed. Continue with the Aranesp as well. MMODL / IJN: [id number] /
--- NOTE | 2018-01-30 18:21 | P.PN ---
<Jasper Amin L - Last Filed: 01/30/18 18:05> Subjective Progress Note Date: 01/30/18 Principal diagnosis: Pericardial effusion, end-stage renal disease on hemodialysis, hypertension, history of cerebrovascular accident July 2017, history of seizure disorder history of status epilepticus, current tobacco dependence, chronic thrombocytopenia, chronic anemia, nephrolithiasis. Status post left-sided thoracentesis with 1000 ml of pleural fluid removed on 01/24/2018 and on 01/29/2018 with 900 mL of pleural fluid removed performed by Dr. Fraire. The patient is currently lying in bed with his head elevated. He is in no acute distress. He denies any complaints of pain or shortness of breath. 2-D echocardiogram results from 01/25/2018 showed a large generalized pericardial effusion, and an overall left ventricular systolic function with an ejection fraction of 55-60%. Oxygen saturations are 92% on room air. A computed tomography scan of his chest was completed today 01/30/2018 which demonstrated a large pericardial effusion, a left small pleural effusion and a partial lingular collapse and lateral basilar segmental collapse. Objective - Vital Signs Vital signs: Vital Signs Temp 99.4 F 01/30/18 14:54 Pulse 110 H 01/30/18 16:07 Resp 16 01/30/18 14:54 BP 153/59 01/30/18 14:54 Pulse Ox 92 L 01/30/18 14:54 Intake & Output 01/29/18 01/30/18 01/30/18 18:59 06:59 18:59 Intake Total 1610 1215 1380 Output Total 50 Balance 1560 1215 1380 Weight 65.6 kg 65.6 kg Intake: IV 250 Piperacillin-Tazobactam 3 250 .375 gm In Dextrose/Water 1 50ml.bag @ 12.5 mls/hr IVPB Q12H [facility] Rx#: [id number] Intake, IV Titration 50 425 300 Amount Piperacillin-Tazobactam 3 50 50 50 .375 gm In Dextrose/Water 1 50ml.bag @ 12.5 mls/hr IVPB Q12H [facility] Rx#: [id number] Vancomycin 1,250 mg In 375 250 Sodium Chloride 0.9% 250 ml @ 125 mls/hr IVPB ONCE ONE Rx#:[id number] Oral [id number] 002 3512 Output: Urine 50 Other: Voiding Method Toilet Toilet # Voids 2 1 - Constitutional General appearance: Present: cooperative, no acute distress, thin - EENT ENT: Present: hearing grossly normal - Neck Details: Neck is supple, bilateral JVD present. No lymphadenopathy. - Respiratory Details: Lung sounds are essentially clear throughout, diminished bilateral bases. Respirations are symmetrical and nonlabored. Oxygen saturation are 92% on room air. - Cardiovascular Details: Regular rhythm and tachycardic rate. S1 and S2 present, positive systolic murmur 3/6. No edema present. Peripheral pulses palpable. AV fistula with good thrill and bruit to his right arm. Remote telemetry showing sinus tachycardia heart rate in the 120s. - Gastrointestinal Gastrointestinal Comment(s): Abdomen is soft, nontender and nondistended. Active bowel sounds to all 4 abdominal quadrants. Tolerating oral intake. - Genitourinary Genitourinary Comment(s): Continues to void to bedside urinal. - Integumentary Integumentary Comment(s): Skin is warm, and dry. No clubbing or cyanosis. - Neurologic Neurologic: Present: CNII-XII intact - Musculoskeletal Musculoskeletal: Present: gait normal, strength equal bilaterally - Psychiatric Psychiatric: Present: A&O x's 3, appropriate affect, intact judgment & insight - Allied health notes Allied health notes reviewed: nursing - Labs CBC & Chem 7: 01/30/18 10:39 01/30/18 10:39 Labs: Abnormal Lab Results - Last 24 Hours (Table) 01/30/18 01/30/18 Range/Units 10:39 10:39 RBC 2.58 L (4.30-5.90) m/uL Hgb 7.2 L (13.0-17.5) gm/dL Hct 24.0 L (39.0-53.0) % MCHC 30.2 L (31.0-37.0) g/dL RDW 16.5 H (11.5-15.5) % Lymphocytes # 0.6 L (1.0-4.8) k/uL Sodium 135 L (137-145) mmol/L Chloride 97 L (98-107) mmol/L BUN 26 H (9-20) mg/dL Creatinine 5.41 H* (0.66-1.25) mg/dL Microbiology - Last 24 Hours (Table) 01/28/18 19:26 Gram Stain - Preliminary Sputum Sputum Culture - Preliminary Ana albicans 01/29/18 15:30 Gram Stain - Preliminary Thoracic Fluid Body Fluid Culture - Preliminary 01/24/18 00:56 Blood Culture - Final Blood No Growth after 144 hours 01/29/18 15:30 Acid Fast Bacilli Culture - Preliminary Thoracentesis Fluid 01/29/18 15:30 Fungal Culture - Preliminary Thoracentesis Fluid - Imaging and Cardiology Chest x-ray: report reviewed, image reviewed Assessment and Plan (1) History of CVA (cerebrovascular accident) Current Visit: Yes Status: Acute Code(s): Z86.73 - PRSNL HX OF TIA (TIA), AND CEREB INFRC W/O RESID DEFICITS SNOMED Code(s): 853309502 (2) Pericardial effusion Current Visit: Yes Status: Acute Code(s): I31.3 - PERICARDIAL EFFUSION ( NONINFLAMMATORY) SNOMED Code(s): 890238848 (3) Pleural effusion, left Current Visit: Yes Status: Acute Code(s): J90 - PLEURAL EFFUSION, NOT ELSEWHERE CLASSIFIED SNOMED Code(s): 33709717 (4) End stage renal disease on dialysis Current Visit: Yes Status: Chronic Code(s): N18.6 - END STAGE RENAL DISEASE ; Z99.2 - DEPENDENCE ON RENAL DIALYSIS SNOMED Code(s): 689914172 (5) Hypertension Current Visit: Yes Status: Chronic Code(s): I10 - ESSENTIAL (PRIMARY) HYPERTENSION SNOMED Code(s): 84405958 (6) Tobacco dependence Current Visit: Yes Status: Chronic Code(s): F17.200 - NICOTINE DEPENDENCE, UNSPECIFIED, UNCOMPLICATED SNOMED Code(s): 99330782 Plan: 1. The patient will be scheduled for a left video-assisted thoracoscopic surgery with decortication and pericardial window on 01/31/2018. 2. Dialysis management per nephrology. 3. Medical management per primary care service. 4. Increase activity as tolerated.. 5. Nothing by mouth after midnight. 6. Type and screen, repeat CBC CMP and INR in the a.m. 7. More recommendations to follow as patient progresses in his care. Time with Patient: Greater than 30 <Rosales Hernandez - Last Filed: 01/31/18 13:45> Objective - Vital Signs Vital signs: Vital Signs Temp 98.6 F 01/31/18 12:30 Pulse 104 H 01/31/18 13:34 Resp 20 01/31/18 12:30 BP 146/104 01/31/18 12:30 Pulse Ox 95 01/31/18 12:30 Intake & Output 01/30/18 01/31/18 01/31/18 18:59 06:59 18:59 Intake Total 1380 530 550 Output Total 50 30 Balance 1330 530 520 Weight 65.6 kg Intake: IV 50 550 Piperacillin-Tazobactam 3 50 .375 gm In Dextrose/Water 1 50ml.bag @ 12.5 mls/hr IVPB Q12H [facility] Rx#: [id number] Intake, IV Titration 300 Amount Piperacillin-Tazobactam 3 50 .375 gm In Dextrose/Water 1 50ml.bag @ 12.5 mls/hr IVPB Q12H [facility] Rx#: [id number] Vancomycin 1,250 mg In 250 Sodium Chloride 0.9% 250 ml @ 125 mls/hr IVPB ONCE ONE Rx#:[id number] Oral 1080 480 Output: Urine 50 Pleural Fluid 10 Estimated Blood Loss 20 Other: Voiding Method Toilet Toilet Toilet # Voids 1 - Labs CBC & Chem 7: 01/31/18 07:18 01/31/18 07:18 Labs: Abnormal Lab Results - Last 24 Hours (Table) 01/31/18 01/31/18 01/31/18 Range/Units 07:18 07:18 07:18 RBC 2.43 L (4.30-5.90) m/uL Hgb 7.1 L (13.0-17.5) gm/dL Hct 21.7 L (39.0-53.0) % RDW 16.0 H (11.5-15.5) % Lymphocytes # 0.8 L (1.0-4.8) k/uL PT 12.2 H (9.0-12.0) sec INR 1.3 H (<1.2) BUN 24 H (9-20) mg/dL Creatinine 4.72 H (0.66-1.25) mg/dL Total Protein 5.1 L (6.3-8.2) g/dL Albumin 2.6 L (3.5-5.0) g/dL Microbiology - Last 24 Hours (Table) 01/28/18 19:26 Gram Stain - Final Sputum Sputum Culture - Final Ana albicans 01/29/18 15:30 Gram Stain - Preliminary Thoracic Fluid Body Fluid Culture - Preliminary 01/29/18 15:30 Acid Fast Bacilli Smear - Final Thoracentesis Fluid Acid Fast Bacilli Culture - Preliminary Assessment and Plan Plan: The patient was seen and examined. I agree with the above assessment and plan. History and physical findings were verified. The patient did undergo left- sided thoracentesis by Dr. Malone. Follow-up computed tomography scan of the chest reveals persistent loculated fluid collections. Left VATS decortication with drainage of pericardial fluid was recommended. The risks, benefits, and alternatives to this procedure were discussed with the patient. All his questions were answered. We will plan on performing the procedure on [address] Solis.
[2018-01-30] MEDS: MELATONIN 5 MG TABLET PO SCH (20:41)
[2018-01-30] MEDS: QUEtiapine 25 MG TAB PO SCH (20:41)
[2018-01-31 00:44] LABS: DNA Double-Stranded NEGATIVE (NEGATIVE)
[2018-01-31] MEDS: PIPERACILLIN-TAZOBACTAM 3.375 GM in DEXTROSE/WATER 1 50ML.BAG IVPB SCH ×2 (05:47→17:20)
[2018-01-31] MEDS ORDERED: IV FLUID CONTINUATION 1,000 ML IV ONE (06:41)
[2018-01-31] MEDS ORDERED: ONDANSETRON 4 MG/2 ML VIAL ONE (07:08)
[2018-01-31] MEDS ORDERED: ONDANSETRON 4 MG/2 ML VIAL IVP ONE (07:10)
[2018-01-31] MEDS ORDERED: DEXAMETHASONE SOD PHOSPHATE 10 MG/ML 1 ML VIAL IV ONE (07:11)
[2018-01-31] MEDS ORDERED: PROPOFOL 10 MG/ML 20 ML VIAL IV ONE (07:34)
[2018-01-31] MEDS ORDERED: MIDAZOLAM 2 MG/2 ML VIAL ONE (07:34)
[2018-01-31] MEDS ORDERED: fentaNYL (PF) 50 MCG/ML 2 ML AMP ONE (07:34)
[2018-01-31] MEDS ORDERED: ROCURONIUM BROMIDE 10 MG/ML 10 ML VIAL IV ONE (07:34)
[2018-01-31] MEDS ORDERED: LIDOCAINE 1% INJ 10MG/ML (20 ML MDV) ONE (07:34)
[2018-01-31] MEDS ORDERED: NEOSTIGMINE 1 MG/ML 10 ML VIAL ONE (07:34)
[2018-01-31] MEDS ORDERED: CISATRACURIUM 2 MG/ML 5 ML VIAL IV ONE (07:34)
[2018-01-31] MEDS ORDERED: GLYCOPYRROLATE 0.2 MG/ML 2 ML VIAL ONE (07:34)
[2018-01-31] MEDS ORDERED: PHENYLEPHRINE-0.9% NACL SYG 1 MG/10 ML SYRINGE ONE (07:34)
[2018-01-31] MEDS ORDERED: SODIUM CHLORIDE 0.9% 1,000 ML IV ONE (07:35)
[2018-01-31 07:51] LABS: INR 1.3 (<1.2); Prothrombin Time 12.2 sec (9.0-12.0)
[2018-01-31] MEDS ORDERED: ceFAZolin 2,000 MG in DEXTROSE/WATER 1 50ML.BAG IVPB ONE (08:00)
[2018-01-31] MEDS ORDERED: ceFAZolin IN SWFI 2 GM/20 ML SYRINGE IVP ONE (08:00)
[2018-01-31 08:05] LABS: Anisocytosis Slight; Basophils % (A) 1 %; Eosinophils # (A) 0.1 k/uL (0-0.7); Eosinophils % (A) 2 %; HCT 21.7 % (39.0-53.0); HGB 7.1 gm/dL (13.0-17.5); Hypochromasia Slight; Lymphocytes # (A) 0.8 k/uL (1.0-4.8); Lymphocytes % (A) 10 %; MCH 29.2 pg (25.0-35.0); MCHC 32.6 g/dL (31.0-37.0); MCV 89.5 fL (80.0-100.0); Mean Platelet Volume 6.8; Monocytes # (A) 0.5 k/uL (0-1.0); Monocytes % (A) 6 %; Neutrophils # (A) 6.3 k/uL (1.3-7.7); Neutrophils % (A) 80 %; Platelet Count 329 k/uL (150-450); Poikilocytosis Moderate; RBC 2.43 m/uL (4.30-5.90)
[2018-01-31 08:11] LABS: Albumin 2.6 g/dL (3.5-5.0); Calcium 8.6 mg/dL (8.4-10.2); Potassium 4.7 mmol/L (3.5-5.1); Total Bilirubin 0.4 mg/dL (0.2-1.3); Total Protein 5.1 g/dL (6.3-8.2)
[2018-01-31] MEDS: IPRATROPIUM-ALBUTEROL 3 ML NEB INHALATION SCH ×4 (08:37→21:34)
[2018-01-31] MEDS ORDERED: BUPIVACAINE (PF) 0.5% 30 ML VIAL SQ ONE (09:18)
--- NOTE | 2018-01-31 10:03 | XR ---
EXAMINATION TYPE: XR chest 1V confirm line [facility] DATE OF EXAM: 01/31/2018 COMPARISON: 01/29/2018 HISTORY: Chest tube placement TECHNIQUE: Single frontal view of the chest is obtained. FINDINGS: There is a left-sided chest tube and there is bilateral effusion and diffuse infiltrate th roughout the left lung which is progressed from the previous exam. There is subcutaneous emphysema an d a left-sided pneumothorax measuring approximately 15-20%. IMPRESSION: 1. Approximate 15-20% left-sided pneumothorax with increasing consolidation involving the left lung. Correlate clinically. 2. Persistent cardiomegaly which is been reported to represent pericardial effusion by CT scan.
[2018-01-31] MEDS ORDERED: SODIUM CHLORIDE 0.9% 1,000 ML IV SCH (10:55)
--- NOTE | 2018-01-31 10:55 | OP ---
OPERATIVE REPORT DATE OF THE SURGERY: 01/31/2018. SURGEON: Dr. Rosa Solis. DUST BOX TENDER: LULY Mckeon PREOPERATIVE DIAGNOSIS: Left-sided empyema with large pericardial effusion, end-stage renal disease. POSTOPERATIVE DIAGNOSIS: Left-sided empyema with large pericardial effusion, end-stage renal disease. PROCEDURE: 1. Video thoracoscopic assisted partial decortication of the left chest. 2. Video-assisted pericardial window. INDICATIONS FOR SURGERY: Patient is a 47-year-old gentleman, end-stage renal disease, on hemodialysis, who was treated for a while for pneumonia and parapneumonic effusion. He had 2 left- sided thoracocentesis. On his most recent CAT scan, he has residual pocket in his left chest. His white count has improved. However, patient also has a large pericardial effusion. Decision was made to proceed with a video thoracoscopic approach to basically solve the 2 issues of the residual parapneumonic pockets and the large pericardial effusion. Risks, benefits, and alternatives were discussed with him and his . They understood them and agreed to proceed. DESCRIPTION OF THE PROCEDURE: The patient had a left radial arterial line placed in the preoperative holding area. Subsequently, he was brought to the operating room, where general double-lumen endotracheal intubation was induced uneventfully. Sequential compression stockings were applied to both lower extremities. Tube position was confirmed with fiberoptic bronchoscopy. His airway appeared to be inflamed. Subsequently, patient was positioned in the right lateral decubitus position. An axillary roll and all pressure points were addressed. He received 2 grams of cefazolin intravenously. The chest, back, abdomen and flank were prepped and draped using ChloraPrep. Ioban was used to cover the skin. The left lung was deflated as we entered initially the left chest cavity at the level of the seventh intercostal space posterior axillary line. A 2 cm incision was made and this hemostat entered and additional digital exploration revealed no adhesions. A 10.5 mm Thoracoport was inserted and a 10 mm zero-degree thoracoscope was used. Exploration revealed partial adhesions in the left-sided lung, mainly the left lower lobe with some serosanguineous pleural effusion. We made another incision at the level of the fourth intercostal space mid axillary line in a clear area and through this approach we were able to free the whole left lung. This included also the fissure and the posterior sulcus. I did also free the lung off the pericardium. All adhesions and fibrinous material were removed. There was no thick peel over the left lower lobe. However, it was just a fibrous exudate that was all peeled off the left lower lobe. Thorough irrigation performed. At this point, attention was moved at performing the pericardial window part. The patient was given 75 mg of lidocaine intravenously. The phrenic nerve was identified. We proceeded posteriorly to the phrenic nerve and parallel to it using a moderate level cautery at making initial opening in the pericardium. We drained around 1 L of hemorrhagic fluid. Eventually that opening was enlarged and a piece of pericardium removed and sent to pathology. That allowed us to check the epicardial surface and appeared to be very inflamed and there were fibrinous exudate in the pericardial cavity. Some of them were removed. Thorough irrigation was performed also into the pericardial cavity and outside. Satisfied with the results, we switched the camera to the most upper port and inserted a right angle 32-Maltese chest tube in the posterior sulcus and was affixed to the skin using Ethibond. The camera was removed after ensuring adequate inflation of the lung and that incision closed in layers using Vicryl 2-0 for the fascia and 3-0 for the subcutaneous and 4-0 for the skin. Skin glue was applied. Local anesthetic with 0.25% Marcaine was administered. Patient was extubated in the operating room and transferred to the recovery room in stable condition. There was no air leak noted from the chest tube. MMODL / IJN: [id number] / [id number]
[2018-01-31] MEDS: GABAPENTIN 100 MG CAP PO SCH ×2 (11:32→21:56)
[2018-01-31] MEDS: levETIRAcetam 500 MG TAB PO SCH ×2 (11:32→21:56)
[2018-01-31] MEDS: CALCIUM ACETATE 667 MG CAP PO SCH ×3 (11:33→17:13)
[2018-01-31] MEDS: amLODIPine 5 MG TAB PO SCH ×2 (11:33→21:56)
[2018-01-31] MEDS: ENOXAPARIN 30 MG/0.3 ML SYRINGE SQ SCH (11:33)
[2018-01-31] MEDS: ASPIRIN 325 MG TAB PO SCH (11:33)
[2018-01-31] MEDS: LISINOPRIL 10 MG TAB PO SCH ×2 (11:34→21:56)
[2018-01-31] MEDS: NICOTINE 14MG/24HR PATCH TRANSDERM SCH (11:35)
[2018-01-31] MEDS: SPIRONOLACTONE 25 MG TAB PO SCH (11:36)
[2018-01-31] MEDS: ATORVASTATIN 20 MG TAB PO SCH (11:36)
[2018-01-31] MEDS: methylPREDNISolone SOD SUCCI 125 MG/2 ML VIAL IV SCH ×3 (12:21→23:02)
--- NOTE | 2018-01-31 12:57 | P.PN ---
Subjective Progress Note Date: 01/31/18 Principal diagnosis: Left sided pleural effusion and large pericardial effusion 47-year-old male patient, presented to the hospital because of worsening shortness of breath. The patient has multiple medical problems and comorbidities. The patient was in the hospital back in and at that time the patient was in acute respiratory failure and aspiration pneumonia was suspected knowing that the patient was having generalized tonic-clonic seizures. The patient at that time presented to the hospital post ictal with altered mentation and he was combative. He was treated and he was stabilized. He was placed on antiepileptic medication. He is known also to have end-stage renal disease and he is on hemodialysis 3 times a week, TTS, and he has been very compliant and he has not missed any of his dialysis sessions. 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 Upon discharge, the patient was released home on Augmentin 875 mg 1 tablet by mouth twice a day. He was also receiving Keppra for his seizure activity. He was seen in our office on 01/13/2018 and the patient had a new infiltrate in the lingula and the left lower lobe and there was obvious improved aeration of the right lower lobe. Small bilateral pleural effusion was noted. Over the next 1-2 week, the patient's condition got worse and he came into the hospital yesterday with a large left-sided pleural effusion. He did spike a temperature earlier and currently is afebrile. His white cell count is not elevated at 10.7. Rest of the electrolytes are consistent with his renal failure knowing that the patient a BUN of 40 with a creatinine of 10.5 and his potassium level is at 4.6. Currently is on a combination of Zosyn and vancomycin. Based on this large left-sided pleural effusion, a pulmonary consultation was requested. I saw this patient. I did a side thoracentesis during which I removed a total of 1000 ML's of pleural fluid. I should be able to take more fluids yet the patient experienced increased pain and pleurisy along the left lung and I had to stop the procedure. I'm sure there is more fluid left within his left pleural space. A subsequent chest x-ray showed no evidence of any pneumothorax and there is some limited improvement in the aeration of the left lung with residual atelectasis/consolidation/effusion the left lung base. The pleural fluid was sent for analysis. On 01/25/2018 I'm seeing this patient for a follow-up. The patient is doing slightly better compared to yesterday. The patient underwent a thoracentesis yesterday and after removing around 1 L of pleural fluid, the patient became symptomatic and he developed pleuritic left sided chest pain that was brief and ultimately recovered. I had to abort the procedure. Chest x-ray showed persistent opacification of left lung base and based on that I performed a CAT scan of the chest which showed a large pericardial effusion, residual located left-sided pleural effusion and left lower lobe consolidation/atelectasis. Based on the CAT scan findings, an echocardiogram was ordered and the patient was asked to be seen by cardiology and cardiothoracic surgery. He is currently on broad-spectrum antibiotics. He is afebrile. He underwent dialysis yesterday and nephrology is on the case regarding his dialysis schedule. Suspect a parapneumonic complicated left-sided pleural effusion special that the pleural fluid that was drained from the left side showed elevated LDH and protein. We are awaiting the cultures. I also awaiting the fluid cytology. The white cell count is not elevated. The creatinine is down to 7.7. Potassium level is at 5.9 and the patient will have a follow-up with nephrology. On 01/26/2018, the patient is being seen for a follow-up. The patient is a complicated left lung pneumonia with parapneumonic effusion that was drained and the fluid was an exudate. Subsequent CAT scan of the chest showed residual loculated left-sided pleural effusion and a large pericardial effusion. Consult cardiology. Consult cardiothoracic surgery. Discussed the case with the surgeon. The patient will need a window and possibly a VATS tomorrow in regards to these abnormalities. Echocardiogram was completed and there is no evidence of temporal not. Final report is not available to me at this point. Meanwhile, the pleural fluid cultures of been negative and the patient on broad- spectrum antibiotics. The patient received dialysis yesterday. No dialysis for today. He usually gets dialyzed 3 times a week, Tuesdays and Saturdays. White cell count is not elevated. The patient has been afebrile hemodynamically stable. Potassium is at 4.3. On 01/27/2018 patient is seen in follow-up on medical surgical floor. He is resting in bed, denies any acute distress. Still has sharp left-sided chest pain with deep inspiration, but denies any chest pain, denies any dyspnea. Currently on 2 L per nasal cannula with O2 sat at 94%. Hemodynamically stable. Did have a couple episodes of low grade fevers of 99.8F, his last hemodialysis treatment was on Saturday. He is expected to have his scheduled hemodialysis treatment tomorrow. Today's lab work shows sodium of 135, BUN of 44, creatinine is 8.13. Serum potassium is 5.0. Patient was seen by CT surgery in regards to moderate-sized pericardial effusion, for evaluation for open pericardiectomy. Patient's left pleural fluid cytology is still pending, and so are the pleural fluid cultures. he remains on a combination of vancomycin, Zosyn, and Levaquin. On 01/28/2018 patient seen again in follow-up. He is having his hemodialysis treatment today, with the goal to remove 2-1/2 L. Denies any acute dyspnea, although left-sided chest wall pain remains, exacerbated by deep inspiration. Ultrasound from 01/27/2018 has been reviewed, and showed left pleural effusion fluid pocket of 4.1 cm. Patient remains afebrile, on 2 L per nasal cannula his O2 sat at 94%. Denies coughing, denies respiratory distress. Denies any chest pain. Today's lab work shows WBC of 8.3, hemoglobin of 8.0, sodium is 133, potassium is 5.4, B1 is 61, creatinine is 10. Pleural fluid analysis showed high LDH and protein, consistent with exudative pleural effusion. Pleural fluid cytology is still pending at this time. Patient remains on a combination of Levaquin, Zosyn and vancomycin. Pleural fluid cultures are pending. No fevers, patient denies any chills. On 01/29/2018 patient seen in follow-up. Resting in bed, denies any acute distress. Yesterday he had his hemodialysis treatment, with removal of 2.8 L of fluid. Lung sounds are positive for crackles over right posterior lower lobe , and diminished lung sounds on the left. Awaiting to have his left thoracentesis by Dr. Malone this afternoon. Early on 2 L per nasal cannula with O2 sat at 95%. Denies any fevers, denies any chills, or chest pain. Left pleural fluid cytology is still pending at this time, pleural fluid cultures remain negative at this time. he has been afebrile, hemodynamically stable. Remains on a combination of vancomycin, Zosyn and Levaquin. The patient is seen again today 01/30/2018 in follow-up on the regular medical floor. He is awake and alert in no acute distress. He denies any worsening shortness of breath, cough or congestion. He is maintaining good O2 saturations in the low 90s on room air. He remains afebrile. Hemodynamically stable. He did undergo another left-sided thoracentesis by Dr. Fraire yesterday. On the third 900 mL also slightly serosanguineous fluid was removed. Pathology is pending. A follow-up computed tomography scan of the chest performed this morning revealed a continued large pericardial effusion slightly increased by a couple of millimeters. There is also a small left pleural effusion that remains. There is some areas of loculation in the posterior medial left base and peripheral left lower lobe. There is partial lingular collapse and lateral basilar segmental collapse. He remains pain she ears areas of airspace disease in the basilar lower lobes on both sides. Improved with a trace right pleural effusion. The plan now is for a VATS procedure and pericardial window to be performed by CT surgery tomorrow. Patient was reevaluated today on 01/31/2018, patient just came back from [facility] thoracoscopic-assisted partial decortication of the left chest, and video -assisted pericardial window placement. This was done by cardiothoracic surgery today. Patient is back on selective, doing relatively well, asymptomatic, and I had a chance to discuss his condition with the surgeon on the case. In the meantime patient remains on antibiotics, and today we felt that he may benefit from IV Solu-Medrol/steroids. Postoperative chest x-ray was reviewed. Labs from today were also reviewed, hemoglobin is 7.1. BUN is 24 creatinine is 1.472, patient may still undergo dialysis today. Objective - Vital Signs Vital signs: Vital Signs Temp 98.6 F 01/31/18 12:30 Pulse 106 H 01/31/18 10:39 Resp 20 01/31/18 12:30 BP 146/104 03/16/18 12:30 Pulse Ox 95 01/31/18 12:30 Intake & Output 01/30/18 01/31/18 01/31/18 18:59 06:59 18:59 Intake Total 1380 530 550 Output Total 50 30 Balance 1330 530 520 Weight 65.6 kg Intake: IV 50 550 Piperacillin-Tazobactam 3 50 .375 gm In Dextrose/Water 1 50ml.bag @ 12.5 mls/hr IVPB Q12H KRISTY Rx#: [id number] Intake, IV Titration 300 Amount Piperacillin-Tazobactam 3 50 .375 gm In Dextrose/Water 1 50ml.bag @ 12.5 mls/hr IVPB Q12H KRISTY Rx#: [id number] Vancomycin 1,250 mg In 250 Sodium Chloride 0.9% 250 ml @ 125 mls/hr IVPB ONCE ONE Rx#:[id number] Oral 1080 480 Output: Urine 50 Pleural Fluid 10 Estimated Blood Loss 20 Other: Voiding Method Toilet Toilet Toilet # Voids 1 - Exam GENERAL EXAM: Alert, pleasant, 47-year-old white male comfortable in no apparent distress. HEAD: Normocephalic/atraumatic. EYES: Normal reaction of pupils, equal size. Conjunctiva pink, sclera white. NOSE: Clear with pink turbinates. THROAT: No erythema or exudates. NECK: No masses, no JVD, no thyroid enlargement, no adenopathy. CHEST: No chest wall deformity. Symmetrical expansion. LUNGS: Equal air entry with no crackles, wheeze, rhonchi. There are diminished lung sounds over left posterior lower lobe. Left-sided chest tube was noted. CVS: Regular rate and rhythm, normal S1 and S2, no gallops, no murmurs, no rubs ABDOMEN: Soft, nontender. No hepatosplenomegaly, normal bowel sounds, no guarding or rigidity. EXTREMITIES: No clubbing, no edema, no cyanosis, 2+ pulses and upper and lower extremities. There is a right upper extremity functional AV fistula with positive bruit and thrill MUSCULOSKELETAL: Muscle strength and tone normal. SPINE: No scoliosis or deformity SKIN: No rashes CENTRAL NERVOUS SYSTEM: Alert and oriented -3. No focal deficits, tone is normal in all 4 extremities. PSYCHIATRIC: Blunted affect, normal mental status examination. - Labs CBC & Chem 7: 01/31/18 07:18 01/31/18 07:18 Labs: Abnormal Lab Results - Last 24 Hours (Table) 01/30/18 01/30/18 01/31/18 Range/Units 10:39 10:39 07:18 RBC 2.58 L 2.43 L (4.30-5.90) m/uL Hgb 7.2 L 7.1 L (13.0-17.5) gm/dL Hct 24.0 L 21.7 L (39.0-53.0) % MCHC 30.2 L (31.0-37.0) g/dL RDW 16.5 H 16.0 H (11.5-15.5) % Lymphocytes # 0.6 L 0.8 L (1.0-4.8) k/uL PT (9.0-12.0) sec INR (<1.2) Sodium 135 L (137-145) mmol/L Chloride 97 L (98-107) mmol/L BUN 26 H (9-20) mg/dL Creatinine 5.41 H* (0.66-1.25) mg/dL Total Protein (6.3-8.2) g/dL Albumin (3.5-5.0) g/dL 01/31/18 01/31/18 Range/Units 07:18 07:18 RBC (4.30-5.90) m/uL Hgb (13.0-17.5) gm/dL Hct (39.0-53.0) % MCHC (31.0-37.0) g/dL RDW (11.5-15.5) % Lymphocytes # (1.0-4.8) k/uL PT 12.2 H (9.0-12.0) sec INR 1.3 H (<1.2) Sodium (137-145) mmol/L Chloride (98-107) mmol/L BUN 24 H (9-20) mg/dL Creatinine 4.72 H (0.66-1.25) mg/dL Total Protein 5.1 L (6.3-8.2) g/dL Albumin 2.6 L (3.5-5.0) g/dL Microbiology - Last 24 Hours (Table) 01/28/18 19:26 Gram Stain - Final Sputum Sputum Culture - Final Ana albicans 01/29/18 15:30 Gram Stain - Preliminary Thoracic Fluid Body Fluid Culture - Preliminary 01/29/18 15:30 Acid Fast Bacilli Smear - Final Thoracentesis Fluid Acid Fast Bacilli Culture - Preliminary Assessment and Plan Assessment: 1 large left-sided pleural effusion, post thoracentesis and removal of 1 L of turbid pleural fluid from the left lung. The fluid is exudate and there is some residual loculated left-sided pleural effusion and subsequent CAT scan of the chest and some left lower lobe atelectasis and consolidation. The fluid is an exudate. Cultures are still pending for now. Pleuritic chest pain has recovered from the left lung. The follow-up CAT scan of the chest showed persistence of loculated left-sided pleural effusion although a smaller amount and there is also left lower lobe consolidation and atelectasis. Ultrasound of the chest from 01/27/2018 showed left pleural fluid pocket of 4.1 cm, status post second thoracentesis of another 900 mL's removed. 2 large pericardial effusion without signs of clinical cardiac temponade and we are awaiting a echocardiogram and consultation with cardiology and cardiothoracic surgery. Note that the patient has only a small amount of pericardial effusion based on the CAT scan that was done back in December 2017. This pericardial effusion has progressively grown over the past 4 weeks. Rule out uremic pericarditis with pericardial effusion. Infectious pericarditis felt to be less likely. Malignancy is felt to be less likely. 3 recent hospitalization for a acute respiratory failure secondary to seizure activity and pneumonia, recovered on the right. Subsequently the patient developed a extensive pneumonia of the left and this is probably a aspiration pneumonia. 4 hypertension 5 left thalamus CVA from July 2017 6 chronic thrombocytopenia recovered and the platelet count has been normalized 7 concerns towards chronic alcoholism 8 End stage renal disease currently on hemodialysis 3 times a week 9 chronic anemia 10 spinal stenosis, chronic back pain, chronic cervical pain 11 nephrolithiasis 12 hyperlipidemia 13 seizure history with previous history of status epilepticus, currently on Keppra 14 status post VATS decortication of the left chest, and pericardial window. Postoperative day #0. Recommendation: Continue present supportive care measures, continue antibiotics , steroids were added, continue incentive spirometry, will follow closely. Time with Patient: Less than 30
[2018-01-31] MEDS: DARBEPOETIN ALFA 40 MCG/0.4 ML SYRINGE SQ SCH (16:02)
--- NOTE | 2018-01-31 18:34 | PN ---
PROGRESS NOTE Patient is seen for followup for end-stage renal disease. He did have the pericardiocentesis today. There was significant thickening of the pericardium noted with severe chronic changes. Exudative material was drained. Currently patient denies any complaints. Blood pressure is 137/80, heart rate 104 per minute. He is afebrile. EXAMINATION OF THE HEART: S1, S2. EXAMINATION OF LUNGS: Bilateral breath sounds are heard. ABDOMEN: Soft, non-tender. Examination of lower extremities shows no evidence of edema. 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 Labs show sodium 137, potassium 4.7, BUN 24, serum creatinine 4.7, hemoglobin 7.1 g/dL. ASSESSMENT: 1. End-stage renal disease, on hemodialysis on a Saturday, , Saturday schedule, currently getting daily dialysis secondary to pericarditis. 2. Pericardial effusion with severe chronic changes noted in the pericardium. This is not likely to be acute. I doubt this is uremic pericarditis. Previously patient had been noncompliant with his dialysis. However, for the past year or so he has been very compliant with his treatments as outpatient. 3. Anemia with no active bleeding noted, maintained on Aranesp. Will check iron studies. 4. Hypertension, currently controlled. Blood pressure had been high earlier in the day. If it remains high, I will increase his Zestril to 20 mg b.i.d. that patient was taking at home. Will continue to maintain him off of the clonidine, which he was weaned off of as outpatient. MMODL / IJN: [id number] /
--- NOTE | 2018-01-31 19:52 | PN ---
PROGRESS NOTE DATE OF SERVICE: 01/31/2018 This 47-year-old gentleman was admitted with multiple medical problems, including large left pleural effusion, possibly parapneumonic, and large pericardial effusion. The patient under underwent VATS procedure by Dr. Solis. The patient had left-sided empyema with a large pericardial effusion and video-assisted pericardial window was also done. Decortication was also done. The patient is being closely monitored in telemetry. Chest tubes in place. Past medical history reviewed. REVIEW OF SYSTEMS: CARDIOVASCULAR SYSTEM: As mentioned earlier. RESPIRATORY SYSTEM: As mentioned earlier. GI: No nausea, vomiting. : No dysuria or retention. NERVOUS SYSTEM: No numbness, weakness.. CURRENT MEDICATIONS: Reviewed. They include: 1. Tylenol 650 q.6 p.r.n. 2. DuoNeb q.i.d. and p.r.n. 3. Norvasc 5 mg p.o. b.i.d. 4. Aspirin 325 mg daily. 5. Lipitor 20 mg daily. 6. PhosLo 667 t.i.d. 7. Aranesp. 8. Lovenox 30 mg subcutaneously daily. 9. Vitamin D2. 10.Neurontin. 11.Keppra. 12.Levaquin. 13.Zestril. 14.Melatonin. 15.Robaxin. 16.Solu-Medrol. 17.Habitrol. 18.Zosyn IV. PHYSICAL EXAMINATION: Patient is alert, oriented x3. Pulse is 104, blood pressure 137/80, respiration 20, temperature 98.4, pulse ox 96% on room air. HEENT: Conjunctivae normal. Oral mucosa moist. NECK: No jugular venous distention. No carotid bruit. No lymph node enlargement. CARDIOVASCULAR SYSTEM: S1, S2 muffled. RESPIRATORY SYSTEM: Breath sounds diminished at the bases. A few scattered rhonchi and crackles. Expiratory wheezing also present. ABDOMEN: Soft, non-tender. No mass palpable. LEGS: No edema. No swelling. NERVOUS SYSTEM: Higher functions as mentioned earlier. Moves all 4 limbs. No focal motor or sensory deficit. LYMPHATICS: No lymph node palpable in neck, axillae or groin. SKIN: No ulcer, rash, bleeding. LABS: WBC 8, hemoglobin 7.1, creatinine 4.72. Otherwise, the pleural fluid characteristics are noted. Double-stranded was negative. Sputum culture showed Ana albicans. ASSESSMENT: 1. Left-sided empyema with pericardial effusion, status post decortication and VATS. 2. History of recent pneumonia on the left lung with a possible parapneumonic process. 3. Hypertension. 4. Hyperlipidemia. 5. End-stage renal disease with chronic renal failure, stage V, on hemodialysis. 6. History of medullary sponge kidney. 7. History of left arm fistula. 8. History of noncompliance with hemodialysis. 9. History of left thalamic cerebrovascular accident in July 2017. 10.History of chronic anemia secondary to end-stage renal disease. 11.Spinal stenosis, chronic back pain and chronic cervical pain. 12.History of nephrolithiasis. 13.Deep venous thrombosis prophylaxis. RECOMMENDATIONS AND DISCUSSION: I recommend to continue current medications, continue with symptomatic treatment. Continue with broad-spectrum IV antibiotics, bronchodilators. Closely follow with Cardiothoracic Surgery and Pulmonology, Dr. Fraire. Guarded prognosis because of multiple complex medical issues. Further recommendations to follow. MMODL / IJN: [id number] / KULDEEP
[2018-01-31] MEDS: QUEtiapine 25 MG TAB PO SCH (21:56)
[2018-01-31] MEDS: MELATONIN 5 MG TABLET PO SCH (21:56)
[2018-01-31] MEDS: METOPROLOL TARTRATE 12.5 MG TAB PO SCH (22:23)
[2018-02-01] MEDS: PIPERACILLIN-TAZOBACTAM 3.375 GM in DEXTROSE/WATER 1 50ML.BAG IVPB SCH ×2 (06:06→19:25)
[2018-02-01] MEDS: methylPREDNISolone SOD SUCCI 125 MG/2 ML VIAL IV SCH ×4 (06:07→23:00)
[2018-02-01 06:35] LABS: Basophils % (A) 0 %; Eosinophils % (A) 0 %; HCT 21.3 % (39.0-53.0); Hypochromasia Moderate; Lymphocytes # (A) 0.4 k/uL (1.0-4.8); Lymphocytes % (A) 4 %; MCHC 31.7 g/dL (31.0-37.0); MCV 91.5 fL (80.0-100.0); Mean Platelet Volume 7.4; Monocytes # (A) 0.4 k/uL (0-1.0); Monocytes % (A) 4 %; Neutrophils # (A) 8.9 k/uL (1.3-7.7); Neutrophils % (A) 90 %; Platelet Count 348 k/uL (150-450); Poikilocytosis Moderate; RBC 2.33 m/uL (4.30-5.90); WBC 9.9 k/uL (3.8-10.6)
[2018-02-01] MEDS: CALCIUM ACETATE 667 MG CAP PO SCH ×3 (06:46→17:36)
[2018-02-01 06:48] LABS: HGB 6.8 gm/dL (13.0-17.5)
[2018-02-01 06:49] LABS: Albumin 2.7 g/dL (3.5-5.0); Calcium 8.6 mg/dL (8.4-10.2); Potassium 4.9 mmol/L (3.5-5.1); Total Bilirubin 0.2 mg/dL (0.2-1.3); Total Protein 5.2 g/dL (6.3-8.2)
[2018-02-01 06:54] LABS: Vancomycin,Random 17.1 ug/mL
--- NOTE | 2018-02-01 06:54 | XR ---
EXAMINATION TYPE: XR chest 1V portable DATE OF EXAM: 02/01/2018 HISTORY: post VATS/pericardial window. REFERENCE: Previous study dated 01/31/2018. FINDINGS: There is improved aeration of the left lung. No definite pneumothorax is seen at this time. There is continuing platelike atelectasis in the right midlung. The heart is mildly enlarged. There are bilateral pleural effusions, greater on the left than the right. IMPRESSION: IMPROVED AERATION, LEFT LUNG.
[2018-02-01] MEDS: IPRATROPIUM-ALBUTEROL 3 ML NEB INHALATION SCH ×4 (07:58→19:55)
[2018-02-01] MEDS: ACETAMINOPHEN TAB 325 MG TAB PO PRN (08:22)
[2018-02-01] MEDS: NICOTINE 14MG/24HR PATCH TRANSDERM SCH (08:27)
[2018-02-01] MEDS: LEVOFLOXACIN 500 MG TAB PO SCH (08:29)
[2018-02-01] MEDS: levETIRAcetam 500 MG TAB PO SCH ×2 (08:29→19:34)
[2018-02-01] MEDS: ENOXAPARIN 30 MG/0.3 ML SYRINGE SQ SCH (08:29)
[2018-02-01] MEDS: ATORVASTATIN 20 MG TAB PO SCH (08:29)
[2018-02-01] MEDS: LISINOPRIL 10 MG TAB PO SCH ×2 (08:30→19:34)
[2018-02-01] MEDS: SPIRONOLACTONE 25 MG TAB PO SCH (08:30)
[2018-02-01] MEDS: ASPIRIN 325 MG TAB PO SCH (08:30)
[2018-02-01] MEDS: amLODIPine 5 MG TAB PO SCH ×2 (08:30→19:33)
[2018-02-01] MEDS: GABAPENTIN 100 MG CAP PO SCH ×2 (08:31→19:34)
[2018-02-01] MEDS: METOPROLOL TARTRATE 12.5 MG TAB PO SCH ×2 (08:32→19:33)
[2018-02-01] MEDS ORDERED: Acetaminophen-Codeine 300-30mg TAB PO PRN (08:46)
[2018-02-01] MEDS ORDERED: FUROSEMIDE 10 MG/ML 2 ML VIAL IV ONE (09:52)
--- NOTE | 2018-02-01 11:45 | P.PN ---
Subjective Progress Note Date: 02/01/18 Principal diagnosis: Left sided empyema with large pericardial effusion, end-stage renal disease on hemodialysis, hypertension, history of cerebrovascular accident in July 2017, seizure disorder, current tobacco dependence, chronic thrombocytopenia, chronic anemia, nephrolithiasis. POD #8 left sided thoracentesis with removal of 1000 mL fluid, POD #3 left sided thoracentesis with removal of 900 mL fluid POD #1 video thoracoscopic assisted partial decortication of the left chest. Video-assisted pericardial window Patient's currently sitting up in bed in no acute distress. Does complain of pain in his chest tube site. Has been up ambulating in the room. Objective - Vital Signs Vital signs: Vital Signs Temp 98.3 F 02/01/18 08:21 Pulse 108 H 02/01/18 08:21 Resp 18 02/01/18 08:21 BP 139/71 02/01/18 08:21 Pulse Ox 93 L 02/01/18 08:21 Intake & Output 01/31/18 02/01/18 02/01/18 18:59 06:59 18:59 Intake Total 750 350 Output Total 510 120 Balance 240 230 Weight 68.1 kg Intake: IV 550 50 Piperacillin-Tazobactam 3 50 .375 gm In Dextrose/Water 1 50ml.bag @ 12.5 mls/hr IVPB Q12H [facility] Rx#: [id number] Oral 200 300 Output: Chest Tube Drainage 130 20 Chest Tube Left Lateral 130 20 Chest Urine 350 100 Pleural Fluid 10 Estimated Blood Loss 20 Other: Voiding Method Toilet Toilet Urinal # Voids 2 - Constitutional General appearance: Present: cooperative, no acute distress - Respiratory Details: Lungs sounds diminished bilaterally. Respirations even, nonlabored. Currently on 2 L nasal cannula with oxygen saturation 93%. Able to achieve 1250 mL on his incentive spirometry. Left sided chest tube to continuous wall suction, 410 mL bloody drainage since surgery, no air leak present. - Cardiovascular Details: S1, S2 present. Regular, tachycardic rate and rhythm, sinus tach on telemetry. Palpable peripheral pulses bilaterally. No edema present. No calf pain or tenderness noted. - Gastrointestinal Gastrointestinal Comment(s): Abdomen soft, nontender, nondistended. Active bowel sounds 4 quadrants. Tolerating diet. - Genitourinary Genitourinary Comment(s): Continues to void clear, yellow urine. - Integumentary Integumentary Comment(s): Skin is warm and dry with evidence of good perfusion. - Neurologic Neurologic: Present: CNII-XII intact - Musculoskeletal Musculoskeletal: Present: gait normal, strength equal bilaterally - Psychiatric Psychiatric: Present: A&O x's 3, appropriate affect, intact judgment & insight - Allied health notes Allied health notes reviewed: nursing - Labs CBC & Chem 7: 02/01/18 06:12 02/01/18 06:12 Labs: Abnormal Lab Results - Last 24 Hours (Table) 01/30/18 02/01/18 02/01/18 Range/Units 10:39 06:12 06:12 RBC 2.33 L (4.30-5.90) m/uL Hgb 6.8 L* (13.0-17.5) gm/dL Hct 21.3 L (39.0-53.0) % RDW 16.0 H (11.5-15.5) % Neutrophils # 8.9 H (1.3-7.7) k/uL Lymphocytes # 0.4 L (1.0-4.8) k/uL Chloride 97 L (98-107) mmol/L BUN 28 H (9-20) mg/dL Creatinine 4.10 H (0.66-1.25) mg/dL Glucose 154 H (74-99) mg/dL Total Protein 5.2 L (6.3-8.2) g/dL Albumin 2.7 L (3.5-5.0) g/dL Crossmatch See Detail Microbiology - Last 24 Hours (Table) 01/29/18 15:30 Gram Stain - Preliminary Thoracic Fluid Body Fluid Culture - Preliminary 01/28/18 19:26 Gram Stain - Final Sputum Sputum Culture - Final Ana albicans - Imaging and Cardiology Chest x-ray: report reviewed, image reviewed Assessment and Plan (1) Chest pain Current Visit: Yes Status: Acute Code(s): R07.9 - CHEST PAIN, UNSPECIFIED SNOMED Code(s): 73148409 (2) Community acquired pneumonia Current Visit: Yes Status: Acute Code(s): J18.9 - PNEUMONIA, UNSPECIFIED ORGANISM SNOMED Code(s): 339947849 (3) End stage renal disease on dialysis Current Visit: Yes Status: Chronic Code(s): N18.6 - END STAGE RENAL DISEASE ; Z99.2 - DEPENDENCE ON RENAL DIALYSIS SNOMED Code(s): 191515266 (4) Fever Current Visit: Yes Status: Acute Code(s): R50.9 - FEVER, UNSPECIFIED SNOMED Code(s): 750925881 (5) Pleural effusion, left Current Visit: Yes Status: Acute Code(s): J90 - PLEURAL EFFUSION, NOT ELSEWHERE CLASSIFIED SNOMED Code(s): 09040715 (6) Generalized seizure Current Visit: Yes Status: Chronic Code(s): R56.9 - UNSPECIFIED CONVULSIONS SNOMED Code(s): 604469642 (7) History of stroke Current Visit: No Status: Resolved Code(s): Z86.73 - PRSNL HX OF TIA (TIA), AND CEREB INFRC W/O RESID DEFICITS SNOMED Code(s): 107858182 (8) Hypertension Current Visit: Yes Status: Chronic Code(s): I10 - ESSENTIAL (PRIMARY) HYPERTENSION SNOMED Code(s): 01053715 (9) Tobacco dependence Current Visit: Yes Status: Chronic Code(s): F17.200 - NICOTINE DEPENDENCE, UNSPECIFIED, UNCOMPLICATED SNOMED Code(s): 32379057 Plan: 1. Continue left-sided chest tube to continuous wall suction. Will monitor output and for air leak. 2. Pain management with ordered medications. 3. Dialysis management per nephrology. 4. Medical management per Dr. Robison's service. 5. Encourage incentive spirometry use 10 times every hour. Encourage smoking cessation. 6. Antibiotics per primary care service. 7. Increase activity, ambulate in hallway. 8. More recommendations to follow. Time with Patient: Greater than 30
--- NOTE | 2018-02-01 12:16 | P.PN ---
Subjective Progress Note Date: 02/01/18 Principal diagnosis: Left sided pleural effusion and large pericardial effusion 47-year-old male patient, presented to the hospital because of worsening shortness of breath. The patient has multiple medical problems and comorbidities. The patient was in the hospital back in and at that time the patient was in acute respiratory failure and aspiration pneumonia was suspected knowing that the patient was having generalized tonic-clonic seizures. The patient at that time presented to the hospital post ictal with altered mentation and he was combative. He was treated and he was stabilized. He was placed on antiepileptic medication. He is known also to have end-stage renal disease and he is on hemodialysis 3 times a week, TTS, and he has been very compliant and he has not missed any of his dialysis sessions. 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 Upon discharge, the patient was released home on Augmentin 875 mg 1 tablet by mouth twice a day. He was also receiving Keppra for his seizure activity. He was seen in our office on 01/13/2018 and the patient had a new infiltrate in the lingula and the left lower lobe and there was obvious improved aeration of the right lower lobe. Small bilateral pleural effusion was noted. Over the next 1-2 week, the patient's condition got worse and he came into the hospital yesterday with a large left-sided pleural effusion. He did spike a temperature earlier and currently is afebrile. His white cell count is not elevated at 10.7. Rest of the electrolytes are consistent with his renal failure knowing that the patient a BUN of 40 with a creatinine of 10.5 and his potassium level is at 4.6. Currently is on a combination of Zosyn and vancomycin. Based on this large left-sided pleural effusion, a pulmonary consultation was requested. I saw this patient. I did a side thoracentesis during which I removed a total of 1000 ML's of pleural fluid. I should be able to take more fluids yet the patient experienced increased pain and pleurisy along the left lung and I had to stop the procedure. I'm sure there is more fluid left within his left pleural space. A subsequent chest x-ray showed no evidence of any pneumothorax and there is some limited improvement in the aeration of the left lung with residual atelectasis/consolidation/effusion the left lung base. The pleural fluid was sent for analysis. On 01/25/2018 I'm seeing this patient for a follow-up. The patient is doing slightly better compared to yesterday. The patient underwent a thoracentesis yesterday and after removing around 1 L of pleural fluid, the patient became symptomatic and he developed pleuritic left sided chest pain that was brief and ultimately recovered. I had to abort the procedure. Chest x-ray showed persistent opacification of left lung base and based on that I performed a CAT scan of the chest which showed a large pericardial effusion, residual located left-sided pleural effusion and left lower lobe consolidation/atelectasis. Based on the CAT scan findings, an echocardiogram was ordered and the patient was asked to be seen by cardiology and cardiothoracic surgery. He is currently on broad-spectrum antibiotics. He is afebrile. He underwent dialysis yesterday and nephrology is on the case regarding his dialysis schedule. Suspect a parapneumonic complicated left-sided pleural effusion special that the pleural fluid that was drained from the left side showed elevated LDH and protein. We are awaiting the cultures. I also awaiting the fluid cytology. The white cell count is not elevated. The creatinine is down to 7.7. Potassium level is at 5.9 and the patient will have a follow-up with nephrology. On 01/26/2018, the patient is being seen for a follow-up. The patient is a complicated left lung pneumonia with parapneumonic effusion that was drained and the fluid was an exudate. Subsequent CAT scan of the chest showed residual loculated left-sided pleural effusion and a large pericardial effusion. Consult cardiology. Consult cardiothoracic surgery. Discussed the case with the surgeon. The patient will need a window and possibly a VATS tomorrow in regards to these abnormalities. Echocardiogram was completed and there is no evidence of temporal not. Final report is not available to me at this point. Meanwhile, the pleural fluid cultures of been negative and the patient on broad- spectrum antibiotics. The patient received dialysis yesterday. No dialysis for today. He usually gets dialyzed 3 times a week, Tuesdays and Saturdays. White cell count is not elevated. The patient has been afebrile hemodynamically stable. Potassium is at 4.3. On 01/27/2018 patient is seen in follow-up on medical surgical floor. He is resting in bed, denies any acute distress. Still has sharp left-sided chest pain with deep inspiration, but denies any chest pain, denies any dyspnea. Currently on 2 L per nasal cannula with O2 sat at 94%. Hemodynamically stable. Did have a couple episodes of low grade fevers of 99.8F, his last hemodialysis treatment was on Saturday. He is expected to have his scheduled hemodialysis treatment tomorrow. Today's lab work shows sodium of 135, BUN of 44, creatinine is 8.13. Serum potassium is 5.0. Patient was seen by CT surgery in regards to moderate-sized pericardial effusion, for evaluation for open pericardiectomy. Patient's left pleural fluid cytology is still pending, and so are the pleural fluid cultures. he remains on a combination of vancomycin, Zosyn, and Levaquin. On 01/28/2018 patient seen again in follow-up. He is having his hemodialysis treatment today, with the goal to remove 2-1/2 L. Denies any acute dyspnea, although left-sided chest wall pain remains, exacerbated by deep inspiration. Ultrasound from 01/27/2018 has been reviewed, and showed left pleural effusion fluid pocket of 4.1 cm. Patient remains afebrile, on 2 L per nasal cannula his O2 sat at 94%. Denies coughing, denies respiratory distress. Denies any chest pain. Today's lab work shows WBC of 8.3, hemoglobin of 8.0, sodium is 133, potassium is 5.4, B1 is 61, creatinine is 10. Pleural fluid analysis showed high LDH and protein, consistent with exudative pleural effusion. Pleural fluid cytology is still pending at this time. Patient remains on a combination of Levaquin, Zosyn and vancomycin. Pleural fluid cultures are pending. No fevers, patient denies any chills. On 01/29/2018 patient seen in follow-up. Resting in bed, denies any acute distress. Yesterday he had his hemodialysis treatment, with removal of 2.8 L of fluid. Lung sounds are positive for crackles over right posterior lower lobe , and diminished lung sounds on the left. Awaiting to have his left thoracentesis by Dr. Malone this afternoon. Early on 2 L per nasal cannula with O2 sat at 95%. Denies any fevers, denies any chills, or chest pain. Left pleural fluid cytology is still pending at this time, pleural fluid cultures remain negative at this time. he has been afebrile, hemodynamically stable. Remains on a combination of vancomycin, Zosyn and Levaquin. The patient is seen again today 01/30/2018 in follow-up on the regular medical floor. He is awake and alert in no acute distress. He denies any worsening shortness of breath, cough or congestion. He is maintaining good O2 saturations in the low 90s on room air. He remains afebrile. Hemodynamically stable. He did undergo another left-sided thoracentesis by Dr. Fraire yesterday. On the third 900 mL also slightly serosanguineous fluid was removed. Pathology is pending. A follow-up computed tomography scan of the chest performed this morning revealed a continued large pericardial effusion slightly increased by a couple of millimeters. There is also a small left pleural effusion that remains. There is some areas of loculation in the posterior medial left base and peripheral left lower lobe. There is partial lingular collapse and lateral basilar segmental collapse. He remains pain she ears areas of airspace disease in the basilar lower lobes on both sides. Improved with a trace right pleural effusion. The plan now is for a VATS procedure and pericardial window to be performed by CT surgery tomorrow. Patient was reevaluated today on 01/31/2018, patient just came back from VATS thoracoscopic-assisted partial decortication of the left chest, and video- assisted pericardial window placement. This was done by cardiothoracic surgery today. Patient is back on selective, doing relatively well, asymptomatic, and I had a chance to discuss his condition with the surgeon on the case. In the meantime patient remains on antibiotics, and today we felt that he may benefit from IV Solu-Medrol/steroids. Postoperative chest x-ray was reviewed. Labs from today were also reviewed, hemoglobin is 7.1. BUN is 24 creatinine is 1.472 , patient may still undergo dialysis today. Reevaluated today on 02/01/2018, patient is doing well, receiving dialysis at this point, basically asymptomatic. Left-sided chest tube remains in place. Hemoglobin is 6.8 today, patient will likely be transfused after his dialysis. His basic metabolic profile is normal BUN is 28 creatinine 4.10. Pleural effusion was negative for malignancy, surgical specimen pathology is pendinG Objective - Vital Signs Vital signs: Vital Signs Temp 97.8 F 02/01/18 11:59 Pulse 99 02/01/18 11:59 Resp 18 02/01/18 11:59 BP 141/75 02/01/18 11:59 Pulse Ox 95 02/01/18 11:49 Intake & Output 01/31/18 02/01/18 02/01/18 18:59 06:59 18:59 Intake Total 750 350 0 Output Total 510 120 Balance 240 230 0 Weight 68.1 kg Intake: IV 550 50 Piperacillin-Tazobactam 3 50 .375 gm In Dextrose/Water 1 50ml.bag @ 12.5 mls/hr IVPB Q12H [facility] Rx#: [id number] Oral 200 300 Blood Product 0 Rc Cpda-1 Unit 0 [id number] Output: Chest Tube Drainage 130 20 Chest Tube Left Lateral 130 20 Chest Urine 350 100 Pleural Fluid 10 Estimated Blood Loss 20 Other: Voiding Method Toilet Toilet Urinal # Voids 2 - Exam GENERAL EXAM: Alert, pleasant, 47-year-old white male comfortable in no apparent distress. HEAD: Normocephalic/atraumatic. EYES: Normal reaction of pupils, equal size. Conjunctiva pink, sclera white. NOSE: Clear with pink turbinates. THROAT: No erythema or exudates. NECK: No masses, no JVD, no thyroid enlargement, no adenopathy. CHEST: No chest wall deformity. Symmetrical expansion. LUNGS: Equal air entry with no crackles, wheeze, rhonchi. There are diminished lung sounds over left posterior lower lobe. Left-sided chest tube was noted. CVS: Regular rate and rhythm, normal S1 and S2, no gallops, no murmurs, no rubs ABDOMEN: Soft, nontender. No hepatosplenomegaly, normal bowel sounds, no guarding or rigidity. EXTREMITIES: No clubbing, no edema, no cyanosis, 2+ pulses and upper and lower extremities. There is a right upper extremity functional AV fistula with positive bruit and thrill MUSCULOSKELETAL: Muscle strength and tone normal. SPINE: No scoliosis or deformity SKIN: No rashes CENTRAL NERVOUS SYSTEM: Alert and oriented -3. No focal deficits, tone is normal in all 4 extremities. PSYCHIATRIC: Blunted affect, normal mental status examination. - Labs CBC & Chem 7: 02/01/18 06:12 02/01/18 06:12 Labs: Abnormal Lab Results - Last 24 Hours (Table) 01/30/18 02/01/18 02/01/18 Range/Units 10:39 06:12 06:12 RBC 2.33 L (4.30-5.90) m/uL Hgb 6.8 L* (13.0-17.5) gm/dL Hct 21.3 L (39.0-53.0) % RDW 16.0 H (11.5-15.5) % Neutrophils # 8.9 H (1.3-7.7) k/uL Lymphocytes # 0.4 L (1.0-4.8) k/uL Chloride 97 L (98-107) mmol/L BUN 28 H (9-20) mg/dL Creatinine 4.10 H (0.66-1.25) mg/dL Glucose 154 H (74-99) mg/dL Total Protein 5.2 L (6.3-8.2) g/dL Albumin 2.7 L (3.5-5.0) g/dL Crossmatch See Detail Microbiology - Last 24 Hours (Table) 01/29/18 15:30 Gram Stain - Preliminary Thoracic Fluid Body Fluid Culture - Preliminary 01/28/18 19:26 Gram Stain - Final Sputum Sputum Culture - Final Ana albicans Assessment and Plan Assessment: 1 large left-sided pleural effusion, post thoracentesis and removal of 1 L of turbid pleural fluid from the left lung. The fluid is exudate and there is some residual loculated left-sided pleural effusion and subsequent CAT scan of the chest and some left lower lobe atelectasis and consolidation. The fluid is an exudate. Cultures are still pending for now. Pleuritic chest pain has recovered from the left lung. The follow-up CAT scan of the chest showed persistence of loculated left-sided pleural effusion although a smaller amount and there is also left lower lobe consolidation and atelectasis. Ultrasound of the chest from 01/27/2018 showed left pleural fluid pocket of 4.1 cm, status post second thoracentesis of another 900 mL's removed. Fluid so far negative for malignancy. 2 large pericardial effusion status post pericardial window postoperative day #1 3 recent hospitalization for a acute respiratory failure secondary to seizure activity and pneumonia, recovered on the right. Subsequently the patient developed a extensive pneumonia of the left and this is probably a aspiration pneumonia. 4 hypertension 5 left thalamus CVA from July 2017 6 chronic thrombocytopenia recovered and the platelet count has been normalized 7 concerns towards chronic alcoholism 8 End stage renal disease currently on hemodialysis 3 times a week 9 chronic anemia 10 spinal stenosis, chronic back pain, chronic cervical pain 11 nephrolithiasis 12 hyperlipidemia 13 seizure history with previous history of status epilepticus, currently on Keppra 14 status post VATS decortication of the left chest, and pericardial window. Postoperative day #1 Recommendation: Continue present supportive care measures, continue antibiotics , steroids were added, continue incentive spirometry, will follow closely. Time with Patient: Less than 30
--- NOTE | 2018-02-01 15:02 | PN ---
PROGRESS NOTE The patient is seen on dialysis. He is tolerating his treatment well. He is comfortable, awake and alert. He denies any chest pain. He is status post pericardiocentesis. PHYSICAL EXAMINATION: On examination, blood pressure is 148/75, heart rate is 90 to 113 per minute. Patient is afebrile. EXAMINATION OF THE HEART: S1, S2. EXAMINATION OF THE LUNGS: Decreased breath sounds at bases. Abdomen is soft, nontender. Examination of the lower extremities shows no evidence of edema. MEDICAL RECEPTIONIST MEDICAL ASSISTANT exam is grossly intact. LAB: Labs show hemoglobin 6.8 g/dL. Sodium 137, potassium 4.9, BUN 28, serum creatinine 4.10. ASSESSMENT: 1. End-stage renal disease, on hemodialysis, currently being dialyzed daily secondary to pericardial effusion. 2. Anemia with progressive drop in hemoglobin down to 6.8 today. No active bleeding noted. The patient is maintained on Aranesp. We will transfuse 1 unit packed RBCs. 3. Large pericardial effusion, status post pericardiocentesis. 4. Pleural effusion, status post thoracentesis. PLAN: To transfuse 1 unit packed RBCs if hemoglobin drops further in a.m. Currently, patient remains asymptomatic. Continue with the Aranesp. I do not see the iron studies. I will reorder them. Next dialysis will be on Saturday. MMODL / IJN: [id number] /
[2018-02-01] MEDS ORDERED: VANCOMYCIN 1,250 MG in SODIUM CHLORIDE 0.9% 250 ML IVPB ONE (16:00)
[2018-02-01] MEDS: INSULIN ASPART 100 UNIT/ML 1 ML 10 ML VIAL SQ SCH ×2 (17:30→20:48)
--- NOTE | 2018-02-01 17:38 | PN ---
PROGRESS NOTE DATE OF SERVICE: 02/01/2018. This 47-year-old gentleman was admitted with multiple medical problems had left- sided empyema and as well as pericardial effusion. Patient underwent decortication, VATS also. The patient has chronic renal failure. Patient receiving hemodialysis. No chest pain. No palpitations. No fever. PAST MEDICAL HISTORY: Reviewed. REVIEW OF SYSTEMS: CARDIOVASCULAR: No angina. RESPIRATORY: As mentioned earlier. GI: As mentioned. : No dysuria. NERVOUS SYSTEM: No numbness or weakness. CURRENT MEDICATIONS: 1. Tylenol 650 q.6h p.r.n. 2. Tylenol #3. 3. DuoNeb q.i.d. 4. Norvasc 5 mg p.o. b.i.d. 5. Aspirin 325 mg daily. 6. Lipitor 20 mg. 7. PhosLo 667. 8. Iron sulfate. 9. Lovenox. 10.Neurontin. 11.Alprazolam. 12.Keppra 1000 mg. 13.Levaquin. 14.Zestril. 15.Metformin. 16.Robaxin. 17.Dorzolamide. 18.Lopressor. 19.Habitrol. 20.Zosyn. 21.Aldactone. PHYSICAL EXAM: Alert and oriented x3. Pulse 110, blood pressure 150/70, respiration 20, temperature 98.5, pulse ox under 100% room air. HEENT: Conjunctivae normal. Oral mucosa moist. Neck is no jugular venous distention. No carotid bruit. No lymph node enlargement. CARDIOVASCULAR: S1, S2 RESPIRATORY: Breath sounds diminished in the bases. A few scattered rhonchi and crackles. ABDOMEN: Soft, nontender. LEGS: No edema. NERVOUS SYSTEM: No focal deficits. LABS: WBC 9.2, hemoglobin 6.8, sodium 139, potassium 4.2, creatinine 4.10. ALMA is negative. is also negative. ASSESSMENT: 1. Left-sided empyema and as well as pericardial effusion, status post decortication, VATS. 2. History of recent pneumonia of the left lung with possible parapneumonic process. 3. Hypertension. 4. Tachycardia. 5. Hyperlipidemia. 6. End-stage renal disease with chronic renal failure stage V on hemodialysis. 7. History medullary sponge kidney. 8. History of left arm AV fistula. 9. History of noncompliance and hemodialysis. 10.History of left thalamic cerebrovascular accident on July 2017. 11.History of chronic anemia secondary to end-stage renal disease. 12.Spinal stenosis with history of chronic back pain, chronic cervical pain. 13.History of nephrolithiasis. 14.History of DVT prophylaxis. RECOMMENDATIONS AND DISCUSSION: I recommend to continue current management, continue monitoring, and symptomatic treatment. Otherwise at this time I recommend continue with current medications, continue symptomatic treatment. Otherwise at this time I would recommend continue with metoprolol. The patient is on IV steroids also. I would recommend to monitor blood sugars closely. Otherwise bronchodilators and closely follow with multiple consultants. Guarded prognosis because of multiple complex medical issues. Continue hemodialysis. I would also recommend PT and OT evaluation and consideration for possible ECF rehab also once the chest tubes are removed. Prognosis guarded. Importance of current compliance also stressed. See orders for further details. Repeat labs have been ordered also. MMODL / IJN: [id number] / KULDEEP
[2018-02-01] MEDS: QUEtiapine 25 MG TAB PO SCH (19:34)
[2018-02-01] MEDS: MELATONIN 5 MG TABLET PO SCH (19:34)
[2018-02-01 20:40] LABS: Glucose,Whole Blood 177 mg/dL (75-99)
[2018-02-01 22:37] LABS: Iron Saturation 9.38 (15.00-50.00)
[2018-02-01 23:54] LABS: Hemoglobin A1C 5.4 % (4.0-6.0)
[2018-02-02] MEDS: ACETAMINOPHEN TAB 325 MG TAB PO PRN (03:34)
[2018-02-02] MEDS: PIPERACILLIN-TAZOBACTAM 3.375 GM in DEXTROSE/WATER 1 50ML.BAG IVPB SCH ×2 (05:24→17:45)
[2018-02-02] MEDS: methylPREDNISolone SOD SUCCI 125 MG/2 ML VIAL IV SCH ×4 (05:24→23:13)
[2018-02-02 06:04] LABS: Glucose,Whole Blood 145 mg/dL (75-99)
[2018-02-02] MEDS: INSULIN ASPART 100 UNIT/ML 1 ML 10 ML VIAL SQ SCH ×4 (06:14→21:31)
[2018-02-02 06:48] LABS: Basophils % (A) 0 %; Eosinophils % (A) 0 %; HCT 25.2 % (39.0-53.0); HGB 7.9 gm/dL (13.0-17.5); Hypochromasia Moderate; Lymphocytes # (A) 0.5 k/uL (1.0-4.8); Lymphocytes % (A) 4 %; MCH 28.9 pg (25.0-35.0); MCHC 31.4 g/dL (31.0-37.0); MCV 92.2 fL (80.0-100.0); Mean Platelet Volume 7.1; Monocytes # (A) 0.4 k/uL (0-1.0); Monocytes % (A) 4 %; Neutrophils # (A) 10.5 k/uL (1.3-7.7); Neutrophils % (A) 91 %; Platelet Count 398 k/uL (150-450); Poikilocytosis Moderate; RBC 2.73 m/uL (4.30-5.90); RDW 15.9 % (11.5-15.5); WBC 11.5 k/uL (3.8-10.6)
[2018-02-02] MEDS: CALCIUM ACETATE 667 MG CAP PO SCH ×3 (06:54→17:38)
[2018-02-02 06:55] LABS: Albumin 2.8 g/dL (3.5-5.0); Calcium 8.8 mg/dL (8.4-10.2); Potassium 4.8 mmol/L (3.5-5.1); Total Bilirubin 0.3 mg/dL (0.2-1.3); Total Protein 5.4 g/dL (6.3-8.2)
[2018-02-02] MEDS: IPRATROPIUM-ALBUTEROL 3 ML NEB INHALATION SCH ×4 (07:30→19:20)
--- NOTE | 2018-02-02 07:36 | XR ---
EXAMINATION TYPE: XR chest 1V portable DATE OF EXAM: 02/02/2018 HISTORY: post VATS/pericardial window. REFERENCE: Previous study dated 02/01/2018. FINDINGS: The heart is enlarged. There is atelectatic change present at both lung bases. Overall aera tion has improved. There are small, bilateral effusions. IMPRESSION: CONTINUED IMPROVED AERATION OF BOTH LUNGS.
[2018-02-02] MEDS: amLODIPine 5 MG TAB PO SCH ×2 (08:19→20:16)
[2018-02-02] MEDS: ATORVASTATIN 20 MG TAB PO SCH (08:19)
[2018-02-02] MEDS: ASPIRIN 325 MG TAB PO SCH (08:19)
[2018-02-02] MEDS: ENOXAPARIN 30 MG/0.3 ML SYRINGE SQ SCH (08:20)
[2018-02-02] MEDS: LISINOPRIL 10 MG TAB PO SCH ×2 (08:20→20:16)
[2018-02-02] MEDS: levETIRAcetam 500 MG TAB PO SCH ×2 (08:20→20:16)
[2018-02-02] MEDS: GABAPENTIN 100 MG CAP PO SCH ×2 (08:20→20:16)
[2018-02-02] MEDS: NICOTINE 14MG/24HR PATCH TRANSDERM SCH (08:21)
[2018-02-02] MEDS: SPIRONOLACTONE 25 MG TAB PO SCH (08:21)
[2018-02-02] MEDS: METOPROLOL TARTRATE 25 MG TAB PO SCH ×2 (08:22→20:16)
--- NOTE | 2018-02-02 10:03 | PN ---
PROGRESS NOTE Patient is seen for followup for end-stage renal disease. He is currently comfortable. Patient denies any significant complaints. He still has a chest tube in. EXAMINATION: Blood pressure is 162/84, heart rate 100 per minute. He is afebrile. Examination of the heart: S1, S2. Examination lungs: Bilateral breath sounds are heard. Abdomen is soft, nontender. Examination lower extremity showed no evidence of edema. CAR COUPLER exam is grossly intact. LABS SHOW: Potassium 4.8, hemoglobin 7.9 g/dL. ASSESSMENT: 1. End-stage renal disease, on hemodialysis on Saturday, , Saturday schedule, currently being dialyzed daily secondary to pericardial effusion. We will hold off dialysis today and patient will receive his next treatment tomorrow. 2. A large pericardial effusion with negative serologies. It appeared to be very chronic pericarditis with exudative fluid that was removed. Currently, patient has a chest tube in place. 3. Hypertension with fair control. Continue current medications. 4. Anemia with drop in hemoglobin. No active bleeding noted. The patient is maintained on Aranesp. Will check stool for occult blood. PLAN: Continue with Aranesp and hemodialysis in a.m. MMODL / IJN: [id number] /
--- NOTE | 2018-02-02 10:22 | P.PN ---
Subjective Progress Note Date: 02/02/18 Principal diagnosis: Left sided empyema with large pericardial effusion, end-stage renal disease on hemodialysis, hypertension, history of cerebrovascular accident in July 2017, seizure disorder, current tobacco dependence, chronic thrombocytopenia, chronic anemia, nephrolithiasis. POD #9 left sided thoracentesis with removal of 1000 mL fluid, POD #4 left sided thoracentesis with removal of 900 mL fluid POD #2 video thoracoscopic assisted partial decortication of the left chest. Video-assisted pericardial window Patient's currently sitting up in bed in no acute distress. States his pain is better controlled with ordered Tylenol 3. Has been up ambulating in the hallway. Objective - Vital Signs Vital signs: Vital Signs Temp 97.8 F 02/02/18 07:50 Pulse 107 H 02/02/18 07:50 Resp 18 02/02/18 07:50 BP 162/84 02/02/18 07:50 Pulse Ox 94 L 02/02/18 07:50 Intake & Output 02/01/18 02/02/18 02/02/18 18:59 06:59 18:59 Intake Total 1400 890 360 Output Total 100 0 0 Balance 1300 890 360 Weight 70 kg Intake: IV 50 50 Piperacillin-Tazobactam 3 50 50 .375 gm In Dextrose/Water 1 50ml.bag @ 12.5 mls/hr IVPB Q12H [facility] Rx#: [id number] Intake, IV Titration 500 Amount Vancomycin 1,250 mg In 500 Sodium Chloride 0.9% 250 ml @ 125 mls/hr IVPB ONCE ONE Rx#:[id number] Oral 600 840 360 Blood Product 250 Rc Cpda-1 Unit 250 [id number] Output: Chest Tube Drainage 0 0 0 Chest Tube Left Lateral 0 0 0 Chest Urine 100 Other: Voiding Method Toilet Toilet Toilet Urinal Urinal Urinal # Voids 2 2 - Constitutional General appearance: Present: cooperative, no acute distress - Respiratory Details: Lungs sounds diminished bilaterally, better than yesterday. Respirations even, nonlabored. Currently on room air with oxygen saturation 94%. Able to achieve 1250 mL on his incentive spirometry. Left pleural chest tube to continuous wall suction, minimal drainage in the last 24 hours, no air leak present. - Cardiovascular Details: S1, S2 present. Regular rate and rhythm, sinus rhythm on telemetry. Palpable peripheral pulses bilaterally. No edema present. No calf pain or tenderness noted. - Gastrointestinal Gastrointestinal Comment(s): Abdomen soft, nontender, nondistended. Active bowel sounds 4 quadrants. Tolerating diet. - Genitourinary Genitourinary Comment(s): Continues to void clear, yellow urine. - Integumentary Integumentary Comment(s): Skin is warm and dry with evidence of good perfusion. - Neurologic Neurologic: Present: CNII-XII intact - Musculoskeletal Musculoskeletal: Present: gait normal, strength equal bilaterally - Psychiatric Psychiatric: Present: A&O x's 3, appropriate affect, intact judgment & insight - Allied health notes Allied health notes reviewed: nursing - Labs CBC & Chem 7: 02/02/18 06:25 02/02/18 06:25 Labs: Abnormal Lab Results - Last 24 Hours (Table) 01/30/18 02/01/18 02/02/18 Range/Units 10:39 20:36 05:59 WBC (3.8-10.6) k/uL RBC (4.30-5.90) m/uL Hgb (13.0-17.5) gm/dL Hct (39.0-53.0) % RDW (11.5-15.5) % Neutrophils # (1.3-7.7) k/uL Lymphocytes # (1.0-4.8) k/uL BUN (9-20) mg/dL Creatinine (0.66-1.25) mg/dL Glucose (74-99) mg/dL POC Glucose (mg/dL) 177 H 145 H (75-99) mg/dL Total Protein (6.3-8.2) g/dL Albumin (3.5-5.0) g/dL Crossmatch See Detail 02/02/18 02/02/18 Range/Units 06:25 06:25 WBC 11.5 H (3.8-10.6) k/uL RBC 2.73 L (4.30-5.90) m/uL Hgb 7.9 L (13.0-17.5) gm/dL Hct 25.2 L (39.0-53.0) % RDW 15.9 H (11.5-15.5) % Neutrophils # 10.5 H (1.3-7.7) k/uL Lymphocytes # 0.5 L (1.0-4.8) k/uL BUN 35 H (9-20) mg/dL Creatinine 4.00 H (0.66-1.25) mg/dL Glucose 140 H (74-99) mg/dL POC Glucose (mg/dL) (75-99) mg/dL Total Protein 5.4 L (6.3-8.2) g/dL Albumin 2.8 L (3.5-5.0) g/dL Crossmatch Microbiology - Last 24 Hours (Table) 01/29/18 15:30 Gram Stain - Preliminary Thoracic Fluid Body Fluid Culture - Preliminary - Imaging and Cardiology Chest x-ray: report reviewed, image reviewed Assessment and Plan (1) Chest pain Current Visit: Yes Status: Acute Code(s): R07.9 - CHEST PAIN, UNSPECIFIED SNOMED Code(s): 06520125 (2) Community acquired pneumonia Current Visit: Yes Status: Acute Code(s): J18.9 - PNEUMONIA, UNSPECIFIED ORGANISM SNOMED Code(s): 354863589 (3) End stage renal disease on dialysis Current Visit: Yes Status: Chronic Code(s): N18.6 - END STAGE RENAL DISEASE ; Z99.2 - DEPENDENCE ON RENAL DIALYSIS SNOMED Code(s): 158214019 (4) Fever Current Visit: Yes Status: Acute Code(s): R50.9 - FEVER, UNSPECIFIED SNOMED Code(s): 123007716 (5) Pleural effusion, left Current Visit: Yes Status: Acute Code(s): J90 - PLEURAL EFFUSION, NOT ELSEWHERE CLASSIFIED SNOMED Code(s): 47698221 (6) Generalized seizure Current Visit: Yes Status: Chronic Code(s): R56.9 - UNSPECIFIED CONVULSIONS SNOMED Code(s): 779140414 (7) History of stroke Current Visit: No Status: Resolved Code(s): Z86.73 - PRSNL HX OF TIA (TIA), AND CEREB INFRC W/O RESID DEFICITS SNOMED Code(s): 593202549 (8) Hypertension Current Visit: Yes Status: Chronic Code(s): I10 - ESSENTIAL (PRIMARY) HYPERTENSION SNOMED Code(s): 12434815 (9) Tobacco dependence Current Visit: Yes Status: Chronic Code(s): F17.200 - NICOTINE DEPENDENCE, UNSPECIFIED, UNCOMPLICATED SNOMED Code(s): 12068018 Plan: 1. Chest tube placed to waterseal. Will monitor output and for air leak. 2. Pain management with ordered medications. 3. Dialysis management per nephrology. 4. Medical management per Dr. Robison's service. 5. Encourage incentive spirometry use 10 times every hour. Encourage smoking cessation. 6. Antibiotics per primary care service. 7. Increase activity, ambulate in hallway. 8. More recommendations to follow. Time with Patient: Greater than 30
[2018-02-02 11:19] LABS: Glucose,Whole Blood 150 mg/dL (75-99)
--- NOTE | 2018-02-02 13:43 | P.PN ---
Subjective Progress Note Date: 02/02/18 Principal diagnosis: Left sided pleural effusion and large pericardial effusion 47-year-old male patient, presented to the hospital because of worsening shortness of breath. The patient has multiple medical problems and comorbidities. The patient was in the hospital back in and at that time the patient was in acute respiratory failure and aspiration pneumonia was suspected knowing that the patient was having generalized tonic-clonic seizures. The patient at that time presented to the hospital post ictal with altered mentation and he was combative. He was treated and he was stabilized. He was placed on antiepileptic medication. He is known also to have end-stage renal disease and he is on hemodialysis 3 times a week, TTS, and he has been very compliant and he has not missed any of his dialysis sessions. 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 Upon discharge, the patient was released home on Augmentin 875 mg 1 tablet by mouth twice a day. He was also receiving Keppra for his seizure activity. He was seen in our office on 01/13/2018 and the patient had a new infiltrate in the lingula and the left lower lobe and there was obvious improved aeration of the right lower lobe. Small bilateral pleural effusion was noted. Over the next 1-2 week, the patient's condition got worse and he came into the hospital yesterday with a large left-sided pleural effusion. He did spike a temperature earlier and currently is afebrile. His white cell count is not elevated at 10.7. Rest of the electrolytes are consistent with his renal failure knowing that the patient a BUN of 40 with a creatinine of 10.5 and his potassium level is at 4.6. Currently is on a combination of Zosyn and vancomycin. Based on this large left-sided pleural effusion, a pulmonary consultation was requested. I saw this patient. I did a side thoracentesis during which I removed a total of 1000 ML's of pleural fluid. I should be able to take more fluids yet the patient experienced increased pain and pleurisy along the left lung and I had to stop the procedure. I'm sure there is more fluid left within his left pleural space. A subsequent chest x-ray showed no evidence of any pneumothorax and there is some limited improvement in the aeration of the left lung with residual atelectasis/consolidation/effusion the left lung base. The pleural fluid was sent for analysis. On 01/25/2018 I'm seeing this patient for a follow-up. The patient is doing slightly better compared to yesterday. The patient underwent a thoracentesis yesterday and after removing around 1 L of pleural fluid, the patient became symptomatic and he developed pleuritic left sided chest pain that was brief and ultimately recovered. I had to abort the procedure. Chest x-ray showed persistent opacification of left lung base and based on that I performed a CAT scan of the chest which showed a large pericardial effusion, residual located left-sided pleural effusion and left lower lobe consolidation/atelectasis. Based on the CAT scan findings, an echocardiogram was ordered and the patient was asked to be seen by cardiology and cardiothoracic surgery. He is currently on broad-spectrum antibiotics. He is afebrile. He underwent dialysis yesterday and nephrology is on the case regarding his dialysis schedule. Suspect a parapneumonic complicated left-sided pleural effusion special that the pleural fluid that was drained from the left side showed elevated LDH and protein. We are awaiting the cultures. I also awaiting the fluid cytology. The white cell count is not elevated. The creatinine is down to 7.7. Potassium level is at 5.9 and the patient will have a follow-up with nephrology. On 01/26/2018, the patient is being seen for a follow-up. The patient is a complicated left lung pneumonia with parapneumonic effusion that was drained and the fluid was an exudate. Subsequent CAT scan of the chest showed residual loculated left-sided pleural effusion and a large pericardial effusion. Consult cardiology. Consult cardiothoracic surgery. Discussed the case with the surgeon. The patient will need a window and possibly a VATS tomorrow in regards to these abnormalities. Echocardiogram was completed and there is no evidence of temporal not. Final report is not available to me at this point. Meanwhile, the pleural fluid cultures of been negative and the patient on broad- spectrum antibiotics. The patient received dialysis yesterday. No dialysis for today. He usually gets dialyzed 3 times a week, Tuesdays and Saturdays. White cell count is not elevated. The patient has been afebrile hemodynamically stable. Potassium is at 4.3. On 01/27/2018 patient is seen in follow-up on medical surgical floor. He is resting in bed, denies any acute distress. Still has sharp left-sided chest pain with deep inspiration, but denies any chest pain, denies any dyspnea. Currently on 2 L per nasal cannula with O2 sat at 94%. Hemodynamically stable. Did have a couple episodes of low grade fevers of 99.8F, his last hemodialysis treatment was on Saturday. He is expected to have his scheduled hemodialysis treatment tomorrow. Today's lab work shows sodium of 135, BUN of 44, creatinine is 8.13. Serum potassium is 5.0. Patient was seen by CT surgery in regards to moderate-sized pericardial effusion, for evaluation for open pericardiectomy. Patient's left pleural fluid cytology is still pending, and so are the pleural fluid cultures. he remains on a combination of vancomycin, Zosyn, and Levaquin. On 01/28/2018 patient seen again in follow-up. He is having his hemodialysis treatment today, with the goal to remove 2-1/2 L. Denies any acute dyspnea, although left-sided chest wall pain remains, exacerbated by deep inspiration. Ultrasound from 01/27/2018 has been reviewed, and showed left pleural effusion fluid pocket of 4.1 cm. Patient remains afebrile, on 2 L per nasal cannula his O2 sat at 94%. Denies coughing, denies respiratory distress. Denies any chest pain. Today's lab work shows WBC of 8.3, hemoglobin of 8.0, sodium is 133, potassium is 5.4, B1 is 61, creatinine is 10. Pleural fluid analysis showed high LDH and protein, consistent with exudative pleural effusion. Pleural fluid cytology is still pending at this time. Patient remains on a combination of Levaquin, Zosyn and vancomycin. Pleural fluid cultures are pending. No fevers, patient denies any chills. On 01/29/2018 patient seen in follow-up. Resting in bed, denies any acute distress. Yesterday he had his hemodialysis treatment, with removal of 2.8 L of fluid. Lung sounds are positive for crackles over right posterior lower lobe , and diminished lung sounds on the left. Awaiting to have his left thoracentesis by Dr. Malone this afternoon. Early on 2 L per nasal cannula with O2 sat at 95%. Denies any fevers, denies any chills, or chest pain. Left pleural fluid cytology is still pending at this time, pleural fluid cultures remain negative at this time. he has been afebrile, hemodynamically stable. Remains on a combination of vancomycin, Zosyn and Levaquin. The patient is seen again today 01/30/2018 in follow-up on the regular medical floor. He is awake and alert in no acute distress. He denies any worsening shortness of breath, cough or congestion. He is maintaining good O2 saturations in the low 90s on room air. He remains afebrile. Hemodynamically stable. He did undergo another left-sided thoracentesis by Dr. Fraire yesterday. On the third 900 mL also slightly serosanguineous fluid was removed. Pathology is pending. A follow-up computed tomography scan of the chest performed this morning revealed a continued large pericardial effusion slightly increased by a couple of millimeters. There is also a small left pleural effusion that remains. There is some areas of loculation in the posterior medial left base and peripheral left lower lobe. There is partial lingular collapse and lateral basilar segmental collapse. He remains pain she ears areas of airspace disease in the basilar lower lobes on both sides. Improved with a trace right pleural effusion. The plan now is for a VATS procedure and pericardial window to be performed by CT surgery tomorrow. Patient was reevaluated today on 01/31/2018, patient just came back from VATS thoracoscopic-assisted partial decortication of the left chest, and video- assisted pericardial window placement. This was done by cardiothoracic surgery today. Patient is back on selective, doing relatively well, asymptomatic, and I had a chance to discuss his condition with the surgeon on the case. In the meantime patient remains on antibiotics, and today we felt that he may benefit from IV Solu-Medrol/steroids. Postoperative chest x-ray was reviewed. Labs from today were also reviewed, hemoglobin is 7.1. BUN is 24 creatinine is 1.472 , patient may still undergo dialysis today. Reevaluated today on 02/01/2018, patient is doing well, receiving dialysis at this point, basically asymptomatic. Left-sided chest tube remains in place. Hemoglobin is 6.8 today, patient will likely be transfused after his dialysis. His basic metabolic profile is normal BUN is 28 creatinine 4.10. Pleural effusion was negative for malignancy, surgical specimen pathology is pendinG Reevaluated today on 02/02/2018, patient is sick and tired of being in the hospital, and he is asking to be discharged home. However the patient is not quite ready at this point, and I explained to him that he will likely end up coming right back if he goes home, especially with still have a chest tube in place today. The chest x-ray continues to show improvement in his loculated left pleural effusion, and chest tube remains in place. The cytology and pathology from his surgical specimen is pending. Labs were all reviewed and chest x-ray was reviewed. Objective - Vital Signs Vital signs: Vital Signs Temp 97.6 F 02/02/18 11:34 Pulse 94 02/02/18 11:34 Resp 18 02/02/18 11:34 BP 132/68 02/02/18 11:34 Pulse Ox 94 L 02/02/18 11:34 Intake & Output 02/01/18 02/02/18 02/02/18 18:59 06:59 18:59 Intake Total 1400 890 720 Output Total 100 0 600 Balance 1300 890 120 Weight 70 kg Intake: IV 50 50 Piperacillin-Tazobactam 3 50 50 .375 gm In Dextrose/Water 1 50ml.bag @ 12.5 mls/hr IVPB Q12H [facility] Rx#: [id number] Intake, IV Titration 500 Amount Vancomycin 1,250 mg In 500 Sodium Chloride 0.9% 250 ml @ 125 mls/hr IVPB ONCE ONE Rx#:[id number] Oral 600 840 720 Blood Product 250 Rc Cpda-1 Unit 250 [id number] Output: Chest Tube Drainage 0 0 0 Chest Tube Left Lateral 0 0 0 Chest Urine 100 600 Other: Voiding Method Toilet Toilet Toilet Urinal Urinal Urinal # Voids 2 2 - Exam GENERAL EXAM: Alert, pleasant, 47-year-old white male comfortable in no apparent distress. However the patient is anxious, and urging to be discharged home. HEAD: Normocephalic/atraumatic. EYES: Normal reaction of pupils, equal size. Conjunctiva pink, sclera white. NOSE: Clear with pink turbinates. THROAT: No erythema or exudates. NECK: No masses, no JVD, no thyroid enlargement, no adenopathy. CHEST: No chest wall deformity. Symmetrical expansion. LUNGS: Equal air entry with no crackles, wheeze, rhonchi. There are diminished lung sounds over left posterior lower lobe. Left-sided chest tube was noted. CVS: Regular rate and rhythm, normal S1 and S2, no gallops, no murmurs, no rubs ABDOMEN: Soft, nontender. No hepatosplenomegaly, normal bowel sounds, no guarding or rigidity. EXTREMITIES: No clubbing, no edema, no cyanosis, 2+ pulses and upper and lower extremities. There is a right upper extremity functional AV fistula with positive bruit and thrill MUSCULOSKELETAL: Muscle strength and tone normal. SPINE: No scoliosis or deformity SKIN: No rashes CENTRAL NERVOUS SYSTEM: Alert and oriented -3. No focal deficits, tone is normal in all 4 extremities. PSYCHIATRIC: Blunted affect, normal mental status examination. - Labs CBC & Chem 7: 02/02/18 06:25 02/02/18 06:25 Labs: Abnormal Lab Results - Last 24 Hours (Table) 02/01/18 02/02/18 02/02/18 Range/Units 20:36 05:59 06:25 WBC (3.8-10.6) k/uL RBC (4.30-5.90) m/uL Hgb (13.0-17.5) gm/dL Hct (39.0-53.0) % RDW (11.5-15.5) % Neutrophils # (1.3-7.7) k/uL Lymphocytes # (1.0-4.8) k/uL BUN 35 H (9-20) mg/dL Creatinine 4.00 H (0.66-1.25) mg/dL Glucose 140 H (74-99) mg/dL POC Glucose (mg/dL) 177 H 145 H (75-99) mg/dL Total Protein 5.4 L (6.3-8.2) g/dL Albumin 2.8 L (3.5-5.0) g/dL 02/02/18 02/02/18 Range/Units 06:25 11:16 WBC 11.5 H (3.8-10.6) k/uL RBC 2.73 L (4.30-5.90) m/uL Hgb 7.9 L (13.0-17.5) gm/dL Hct 25.2 L (39.0-53.0) % RDW 15.9 H (11.5-15.5) % Neutrophils # 10.5 H (1.3-7.7) k/uL Lymphocytes # 0.5 L (1.0-4.8) k/uL BUN (9-20) mg/dL Creatinine (0.66-1.25) mg/dL Glucose (74-99) mg/dL POC Glucose (mg/dL) 150 H (75-99) mg/dL Total Protein (6.3-8.2) g/dL Albumin (3.5-5.0) g/dL Microbiology - Last 24 Hours (Table) 01/29/18 15:30 Gram Stain - Preliminary Thoracic Fluid Body Fluid Culture - Preliminary Assessment and Plan Assessment: 1 large left-sided pleural effusion, post thoracentesis and removal of 1 L of turbid pleural fluid from the left lung. The fluid is exudate and there is some residual loculated left-sided pleural effusion and subsequent CAT scan of the chest and some left lower lobe atelectasis and consolidation. The fluid is an exudate. Cultures are still pending for now. Pleuritic chest pain has recovered from the left lung. The follow-up CAT scan of the chest showed persistence of loculated left-sided pleural effusion although a smaller amount and there is also left lower lobe consolidation and atelectasis. Ultrasound of the chest from 01/27/2018 showed left pleural fluid pocket of 4.1 cm, status post second thoracentesis of another 900 mL's removed. Fluid so far negative for malignancy. 2 large pericardial effusion status post pericardial window postoperative day #2 3 recent hospitalization for a acute respiratory failure secondary to seizure activity and pneumonia, recovered on the right. Subsequently the patient developed a extensive pneumonia of the left and this is probably a aspiration pneumonia. 4 hypertension 5 left thalamus CVA from July 2017 6 chronic thrombocytopenia recovered and the platelet count has been normalized 7 concerns towards chronic alcoholism 8 End stage renal disease currently on hemodialysis 3 times a week 9 chronic anemia 10 spinal stenosis, chronic back pain, chronic cervical pain 11 nephrolithiasis 12 hyperlipidemia 13 seizure history with previous history of status epilepticus, currently on Keppra 14 status post VATS decortication of the left chest, and pericardial window. Postoperative day #2 Recommendation: Continue present supportive care measures, continue antibiotics , steroids were added, continue incentive spirometry, awaiting final pathology report from his epicardial and peripheral specimen. We'll continue to follow. Discussed his condition with his , and she is convincing him that he is to stay in the hospital until he is medically cleared and discharged. Time with Patient: Less than 30
[2018-02-02] MEDS: hydrALAZINE HCL 20 MG/ML 1 ML VIAL IVP PRN (16:01)
[2018-02-02 16:48] LABS: Glucose,Whole Blood 160 mg/dL (75-99)
--- NOTE | 2018-02-02 17:39 | PN ---
PROGRESS NOTE DATE OF SERVICE: 02/02/2017. This 47-year-old gentleman admitted with multiple medical problems, left-sided empyema as well as pericardial effusion is being closely followed. The patient underwent decortication and VATS procedure. Patient had chest tube drainage on the left side. The patient is being closely monitored. Patient is on broad-spectrum IV antibiotics. Multiple consultants with Pulmonary and Cardiothoracic Surgery are following the patient closely. PAST MEDICAL HISTORY: Reviewed. REVIEW OF SYSTEM: CARDIOVASCULAR: As mentioned. RESPIRATORY: As mentioned. GI: No nausea. : No dysuria. NERVOUS SYSTEM: No numbness or weakness. CURRENT MEDICATIONS: 1. Tylenol 650 q.6h p.r.n. 2. Tylenol #3. 3. DuoNeb q.i.d. and p.r.n. 4. Norvasc 5 mg. 5. Aspirin 325 mg p.o. daily. 6. Lipitor 20 mg. 7. PhosLo 667 mg t.i.d. 9. Lovenox 30 mg subcu daily. 10.Vitamin B2. 11.Neurontin 100 mg p.o. b.i.d. 12.Hydralazine 10 mg q.4h p.r.n. 13.NovoLog scale. 14.Keppra 1000 mg p.o. b.i.d. 15.Levaquin 500 mg IV q.48h. 16.Zestril. 17.Melatonin. 18.Robaxin. 19.Solu-Medrol 60 IV q.6h. 20.Habitrol. 21.Zosyn 3.375 IV. PHYSICAL EXAM: Patient is alert, oriented x3. Pulse 94, blood pressure 130/62, respiration 18, temperature 97.8, pulse ox 94% room air. HEENT: Conjunctivae normal. Oral mucosa moist. NECK: No jugular venous distention. No carotid bruit. No lymph node enlargement. CARDIOVASCULAR: S1, S2 muffled. RESPIRATORY: Breath sounds diminished in the bases. A few scattered rhonchi. Chest tube in situ. ABDOMEN: Soft, nontender. LEGS: No edema. No swelling. NERVOUS SYSTEM: No focal deficits. LAB STUDIES: WBC 7, hemoglobin 7.9. ASSESSMENT: 1. Left-sided empyema as well as pericardial effusion, status post decortication , VATS. 2. History of recent pneumonia of left lung with possible parapneumonic process. 3. Hypertension. 4. Tachycardia. 5. Hyperlipidemia. 6. End-stage renal disease with chronic renal failure stage V on hemodialysis. 7. History medullary sponge kidney. 8. History of left arm AV fistula. 9. History of noncompliance with hemodialysis. 10.History of the left thalamic cerebrovascular accident July 2007. 11.History of chronic anemia secondary to end-stage renal disease. 12.Spinal stenosis with history of chronic back pain and chronic cervical pain. 13.History of nephrolithiasis. 14.DVT prophylaxis. RECOMMENDATIONS AND DISCUSSION: I recommend to continue current management and symptomatic treatment. At this time I recommend cut down the steroids and recommend to continue the antibiotics and monitor blood sugars closely. DVT prophylaxis. Otherwise continue the rest of medications. Repeat labs. PT, OT evaluation. Chest to removal per Cardiothoracic Surgery. Guarded prognosis because of multiple complex medical issues. Further recommendations to follow. JANAYL / IJN: [id number] / [email or web address]
[2018-02-02] MEDS: QUEtiapine 25 MG TAB PO SCH (20:15)
[2018-02-02] MEDS: MELATONIN 5 MG TABLET PO SCH (20:15)
[2018-02-02 21:15] LABS: Glucose,Whole Blood 204 mg/dL (75-99)
[2018-02-03 05:51] LABS: Glucose,Whole Blood 145 mg/dL (75-99)
[2018-02-03] MEDS: methylPREDNISolone SOD SUCCI 125 MG/2 ML VIAL IV SCH ×4 (06:05→23:43)
[2018-02-03] MEDS: PIPERACILLIN-TAZOBACTAM 3.375 GM in DEXTROSE/WATER 1 50ML.BAG IVPB SCH ×2 (06:05→17:31)
[2018-02-03] MEDS: INSULIN ASPART 100 UNIT/ML 1 ML 10 ML VIAL SQ SCH ×5 (06:10→21:03)
[2018-02-03 06:35] LABS: Anisocytosis Slight; Basophils # (A) 0.1 k/uL (0-0.2); Basophils % (A) 1 %; Eosinophils # (A) 0.1 k/uL (0-0.7); Eosinophils % (A) 1 %; HCT 24.8 % (39.0-53.0); HGB 7.9 gm/dL (13.0-17.5); Hypochromasia Moderate; Lymphocytes # (A) 0.7 k/uL (1.0-4.8); Lymphocytes % (A) 5 %; MCHC 31.9 g/dL (31.0-37.0); Monocytes # (A) 0.3 k/uL (0-1.0); Monocytes % (A) 2 %; Neutrophils # (A) 11.6 k/uL (1.3-7.7); Neutrophils % (A) 90 %; Platelet Count 506 k/uL (150-450); Poikilocytosis Slight; RBC 2.73 m/uL (4.30-5.90); RDW 16.5 % (11.5-15.5); WBC 12.8 k/uL (3.8-10.6)
[2018-02-03] MEDS: CALCIUM ACETATE 667 MG CAP PO SCH ×3 (06:45→17:32)
[2018-02-03 07:03] LABS: Calcium 9.1 mg/dL (8.4-10.2); Potassium 5.2 mmol/L (3.5-5.1)
--- NOTE | 2018-02-03 08:07 | XR ---
EXAMINATION TYPE: XR chest 2V DATE OF EXAM: 02/03/2018 COMPARISON: Prior chest 02/02/2018 HISTORY: Status post VATS and chest tube TECHNIQUE: Frontal and lateral views of the chest are obtained. FINDINGS: Left-sided chest tube remains in place. Bandlike areas of increased attenuation persist in the left lung. No evident pneumothorax. No sizable effusion. Persistent blunting of the costophrenic angles. Heart size is stable. IMPRESSION: Postprocedural changes. Difficult to exclude minimal effusions. There is likely associat ed atelectasis.
[2018-02-03] MEDS: levETIRAcetam 500 MG TAB PO SCH ×2 (09:14→19:29)
[2018-02-03] MEDS: LISINOPRIL 10 MG TAB PO SCH (09:14)
[2018-02-03] MEDS: METOPROLOL TARTRATE 25 MG TAB PO SCH ×2 (09:14→19:29)
[2018-02-03] MEDS: ASPIRIN 325 MG TAB PO SCH (09:15)
[2018-02-03] MEDS: GABAPENTIN 100 MG CAP PO SCH ×2 (09:15→19:29)
[2018-02-03] MEDS: NICOTINE 14MG/24HR PATCH TRANSDERM SCH (09:20)
[2018-02-03] MEDS: IPRATROPIUM-ALBUTEROL 3 ML NEB INHALATION SCH ×4 (09:26→20:16)
[2018-02-03] MEDS: SPIRONOLACTONE 25 MG TAB PO SCH (12:00)
[2018-02-03] MEDS: amLODIPine 5 MG TAB PO SCH ×2 (12:00→19:29)
[2018-02-03] MEDS: ENOXAPARIN 30 MG/0.3 ML SYRINGE SQ SCH (12:01)
[2018-02-03] MEDS: ATORVASTATIN 20 MG TAB PO SCH (12:01)
[2018-02-03] MEDS: LEVOFLOXACIN 500 MG TAB PO SCH (12:01)
[2018-02-03 12:45] LABS: Glucose,Whole Blood 219 mg/dL (75-99)
--- NOTE | 2018-02-03 13:37 | P.PN ---
Subjective Progress Note Date: 02/03/18 Principal diagnosis: Left sided empyema with large pericardial effusion, end-stage renal disease on hemodialysis, hypertension, history of cerebrovascular accident in July 2017, seizure disorder, current tobacco dependence, chronic thrombocytopenia, chronic anemia, nephrolithiasis. POD #10 left sided thoracentesis with removal of 1000 mL fluid, POD #5 left sided thoracentesis with removal of 900 mL fluid POD #3 video thoracoscopic assisted partial decortication of the left chest. Video-assisted pericardial window Patient's currently sitting up in bed in no acute distress. States his pain is controlled with ordered medications. Has been up ambulating in the hallway. Receiving dialysis this morning. Objective - Vital Signs Vital signs: Vital Signs Temp 98.3 F 02/03/18 11:03 Pulse 107 H 02/03/18 11:03 Resp 18 02/03/18 11:03 BP 174/100 02/03/18 11:03 Pulse Ox 96 02/03/18 11:03 Intake & Output 02/02/18 02/03/18 02/03/18 18:59 06:59 18:59 Intake Total 1080 240 Output Total 600 0 0 Balance 480 240 0 Weight 71.4 kg Intake: Oral 1080 240 Output: Chest Tube Drainage 0 0 0 Chest Tube Left Lateral 0 0 0 Chest Urine 600 Other: Voiding Method Toilet Toilet Toilet Urinal Urinal Urinal # Voids 1 - Constitutional General appearance: Present: cooperative, no acute distress - Respiratory Details: Lungs sounds diminished bilaterally. Respirations even, nonlabored. Currently on room air with oxygen saturation 96%. Left pleural chest tube was to water seal this morning, discontinued without incident. - Cardiovascular Details: S1, S2 present. Tachycardic, regular rate and rhythm, sinus tach on telemetry. Palpable peripheral pulses bilaterally. No edema present. No calf pain or tenderness noted. - Gastrointestinal Gastrointestinal Comment(s): Abdomen soft, nontender, nondistended. Active bowel sounds 4 quadrants. Tolerating diet. - Genitourinary Genitourinary Comment(s): Continues to void clear urine. Receiving hemodialysis. Right forearm AV fistula present. - Integumentary Integumentary Comment(s): Skin is warm and dry with evidence of good perfusion. - Neurologic Neurologic: Present: CNII-XII intact - Musculoskeletal Musculoskeletal: Present: gait normal, strength equal bilaterally - Psychiatric Psychiatric: Present: A&O x's 3, appropriate affect, intact judgment & insight - Allied health notes Allied health notes reviewed: nursing - Labs CBC & Chem 7: 02/03/18 06:22 02/03/18 06:22 Labs: Abnormal Lab Results - Last 24 Hours (Table) 01/31/18 02/02/18 02/02/18 Range/Units 07:18 16:34 21:11 WBC (3.8-10.6) k/uL RBC (4.30-5.90) m/uL Hgb (13.0-17.5) gm/dL Hct (39.0-53.0) % RDW (11.5-15.5) % Plt Count (150-450) k/uL Neutrophils # (1.3-7.7) k/uL Lymphocytes # (1.0-4.8) k/uL Sodium (137-145) mmol/L Potassium (3.5-5.1) mmol/L BUN (9-20) mg/dL Creatinine (0.66-1.25) mg/dL Glucose (74-99) mg/dL POC Glucose (mg/dL) 160 H 204 H (75-99) mg/dL Iron 15 L (65-175) ug/dL TIBC 160 L (228-460) ug/dL Iron Saturation 9.38 L (15.00-50.00) 02/03/18 02/03/18 02/03/18 Range/Units 05:49 06:22 06:22 WBC 12.8 H (3.8-10.6) k/uL RBC 2.73 L (4.30-5.90) m/uL Hgb 7.9 L (13.0-17.5) gm/dL Hct 24.8 L (39.0-53.0) % RDW 16.5 H (11.5-15.5) % Plt Count 506 H (150-450) k/uL Neutrophils # 11.6 H (1.3-7.7) k/uL Lymphocytes # 0.7 L (1.0-4.8) k/uL Sodium 135 L (137-145) mmol/L Potassium 5.2 H (3.5-5.1) mmol/L BUN 76 H (9-20) mg/dL Creatinine 5.90 H* (0.66-1.25) mg/dL Glucose 133 H (74-99) mg/dL POC Glucose (mg/dL) 145 H (75-99) mg/dL Iron (65-175) ug/dL TIBC (228-460) ug/dL Iron Saturation (15.00-50.00) 02/03/18 Range/Units 12:25 WBC (3.8-10.6) k/uL RBC (4.30-5.90) m/uL Hgb (13.0-17.5) gm/dL Hct (39.0-53.0) % RDW (11.5-15.5) % Plt Count (150-450) k/uL Neutrophils # (1.3-7.7) k/uL Lymphocytes # (1.0-4.8) k/uL Sodium (137-145) mmol/L Potassium (3.5-5.1) mmol/L BUN (9-20) mg/dL Creatinine (0.66-1.25) mg/dL Glucose (74-99) mg/dL POC Glucose (mg/dL) 219 H (75-99) mg/dL Iron (65-175) ug/dL TIBC (228-460) ug/dL Iron Saturation (15.00-50.00) Microbiology - Last 24 Hours (Table) 01/29/18 15:30 Gram Stain - Final Thoracic Fluid Body Fluid Culture - Final - Imaging and Cardiology Chest x-ray: report reviewed, image reviewed Assessment and Plan (1) Chest pain Current Visit: Yes Status: Acute Code(s): R07.9 - CHEST PAIN, UNSPECIFIED SNOMED Code(s): 40953296 (2) Community acquired pneumonia Current Visit: Yes Status: Acute Code(s): J18.9 - PNEUMONIA, UNSPECIFIED ORGANISM SNOMED Code(s): 636506007 (3) End stage renal disease on dialysis Current Visit: Yes Status: Chronic Code(s): N18.6 - END STAGE RENAL DISEASE ; Z99.2 - DEPENDENCE ON RENAL DIALYSIS SNOMED Code(s): 946966151 (4) Fever Current Visit: Yes Status: Acute Code(s): R50.9 - FEVER, UNSPECIFIED SNOMED Code(s): 065829993 (5) Pleural effusion, left Current Visit: Yes Status: Acute Code(s): J90 - PLEURAL EFFUSION, NOT ELSEWHERE CLASSIFIED SNOMED Code(s): 51219314 (6) Generalized seizure Current Visit: Yes Status: Chronic Code(s): R56.9 - UNSPECIFIED CONVULSIONS SNOMED Code(s): 474146656 (7) History of stroke Current Visit: No Status: Resolved Code(s): Z86.73 - PRSNL HX OF TIA (TIA), AND CEREB INFRC W/O RESID DEFICITS SNOMED Code(s): 556626436 (8) Hypertension Current Visit: Yes Status: Chronic Code(s): I10 - ESSENTIAL (PRIMARY) HYPERTENSION SNOMED Code(s): 69324057 (9) Tobacco dependence Current Visit: Yes Status: Chronic Code(s): F17.200 - NICOTINE DEPENDENCE, UNSPECIFIED, UNCOMPLICATED SNOMED Code(s): 05415161 Plan: 1. Chest tube discontinued. Chest x-ray in the morning. 2. Pain management with ordered medications. 3. Dialysis management per nephrology. 4. Medical management per Dr. Robison's service. 5. Encourage incentive spirometry use 10 times every hour. Encourage smoking cessation. 6. Antibiotics per primary care service. 7. Increase activity, ambulate in hallway. 8. More recommendations to follow. Time with Patient: Greater than 30
--- NOTE | 2018-02-03 14:42 | P.PN ---
Subjective Progress Note Date: 02/03/18 Principal diagnosis: Pleural effusion Progress note dated 02/03/2018 47-year-old male with a history of large left pleural effusion, status post multiple thoracentesis. The patient had a previous hospitalization for respiratory failure secondary to seizure activity a pneumonia on the right side. This likely with aspiration pneumonia. On this admission the patient was also found have a large pericardial effusion status post pericardial window , postop day #3. In addition to all of this, he has a history of hypertension left thalamic CVA chronic thrombocytopenia chronic alcohol abuse end-stage renal disease chronic anemia spinal stenosis nephrolithiasis hyperlipidemia seizure disorder and VATS decortication of the left chest at the same time of the pericardial window, postop day #3. Overall, the patient seemed be doing relatively well. Chest x-rays not much improvement or change. Doesn't look bad. Chest tube is in place. The patient's fluid was an exudate. Cultures and cytology are still pending. The patient seemed relatively comfortable. This taking 2 L of oxygen by nasal cannula. Apparently yesterday he wanted to leave the hospital but was convinced to stay. Objective - Vital Signs Vital signs: Vital Signs Temp 98.3 F 02/03/18 11:03 Pulse 107 H 02/03/18 11:03 Resp 18 02/03/18 11:03 BP 174/100 02/03/18 11:03 Pulse Ox 96 02/03/18 11:03 Intake & Output 02/02/18 02/03/18 02/03/18 18:59 06:59 18:59 Intake Total 1080 240 Output Total 600 0 0 Balance 480 240 0 Weight 71.4 kg Intake: Oral 1080 240 Output: Chest Tube Drainage 0 0 0 Chest Tube Left Lateral 0 0 0 Chest Urine 600 Other: Voiding Method Toilet Toilet Toilet Urinal Urinal Urinal # Voids 1 - Exam No acute distress, oriented 3. HEENT examination is grossly unremarkable. Mucous membranes are moist. No oral lesions. Neck supple. Full range of motion. No adenopathy thyromegaly or neck vein distention. Cardiovascular examination reveals regular rhythm rate. S1-S2 normal. No S3 or S4. No discernible murmur noted. Lungs reveal diminished breath sounds on the left. A few scattered rhonchi and crackles at the left base. No wheezes. The right lung is essentially clear. Abdomen soft bowel sounds are heard. No masses or tenderness. Extremities are intact. No cyanosis clubbing or edema. Skin is without rash or lesion. Neurologic examination is brief but nonfocal. - Labs CBC & Chem 7: 02/03/18 06:22 02/03/18 06:22 Labs: Abnormal Lab Results - Last 24 Hours (Table) 01/31/18 02/02/18 02/02/18 Range/Units 07:18 16:34 21:11 WBC (3.8-10.6) k/uL RBC (4.30-5.90) m/uL Hgb (13.0-17.5) gm/dL Hct (39.0-53.0) % RDW (11.5-15.5) % Plt Count (150-450) k/uL Neutrophils # (1.3-7.7) k/uL Lymphocytes # (1.0-4.8) k/uL Sodium (137-145) mmol/L Potassium (3.5-5.1) mmol/L BUN (9-20) mg/dL Creatinine (0.66-1.25) mg/dL Glucose (74-99) mg/dL POC Glucose (mg/dL) 160 H 204 H (75-99) mg/dL Iron 15 L (65-175) ug/dL TIBC 160 L (228-460) ug/dL Iron Saturation 9.38 L (15.00-50.00) 02/03/18 02/03/18 02/03/18 Range/Units 05:49 06:22 06:22 WBC 12.8 H (3.8-10.6) k/uL RBC 2.73 L (4.30-5.90) m/uL Hgb 7.9 L (13.0-17.5) gm/dL Hct 24.8 L (39.0-53.0) % RDW 16.5 H (11.5-15.5) % Plt Count 506 H (150-450) k/uL Neutrophils # 11.6 H (1.3-7.7) k/uL Lymphocytes # 0.7 L (1.0-4.8) k/uL Sodium 135 L (137-145) mmol/L Potassium 5.2 H (3.5-5.1) mmol/L BUN 76 H (9-20) mg/dL Creatinine 5.90 H* (0.66-1.25) mg/dL Glucose 133 H (74-99) mg/dL POC Glucose (mg/dL) 145 H (75-99) mg/dL Iron (65-175) ug/dL TIBC (228-460) ug/dL Iron Saturation (15.00-50.00) 02/03/18 Range/Units 12:25 WBC (3.8-10.6) k/uL RBC (4.30-5.90) m/uL Hgb (13.0-17.5) gm/dL Hct (39.0-53.0) % RDW (11.5-15.5) % Plt Count (150-450) k/uL Neutrophils # (1.3-7.7) k/uL Lymphocytes # (1.0-4.8) k/uL Sodium (137-145) mmol/L Potassium (3.5-5.1) mmol/L BUN (9-20) mg/dL Creatinine (0.66-1.25) mg/dL Glucose (74-99) mg/dL POC Glucose (mg/dL) 219 H (75-99) mg/dL Iron (65-175) ug/dL TIBC (228-460) ug/dL Iron Saturation (15.00-50.00) Microbiology - Last 24 Hours (Table) 01/29/18 15:30 Gram Stain - Final Thoracic Fluid Body Fluid Culture - Final Assessment and Plan Assessment: Assessment Large left pleural effusion, status post thoracentesis 2 Large pericardial effusion, status post pericardial window, postop day #3 Status post VATS decortication of the left chest, postop day #3. Acute respiratory failure secondary to seizure disorder and aspiration pneumonia on previous hospitalization, recovered Hypertension Left thalamic CVA Chronic thrombus cytopenia Possible chronic alcohol abuse. End-stage renal disease, currently on 3 time a week hemodialysis Anemia of chronic disease Spinal stenosis Nephrolithiasis Hyperlipidemia History of seizure disorder Plan: Plan dated 02/03/2018 We'll continue with supportive care which includes incentive spirometry antibiotic steroids incentive spirometry and bronchodilators and breathing treatments. We'll await final pathology and microbiology reports. The patient is now willing to stay in the hospital. We'll continue to follow. Prognosis is guarded. Time with Patient: Less than 30
[2018-02-03 17:23] LABS: Glucose,Whole Blood 252 mg/dL (75-99)
--- NOTE | 2018-02-03 17:54 | P.PN ---
Subjective Progress Note Date: 01/27/18 Progress note being dictated for Dr. Robison. Pleural effusion Patient is a 47-year-old male with a known history of ESRD on hemodialysis TTS and multiple medical problems came to ER with complaints of shortness of breath. Patient had last hemodialysis on Saturday. Patient is supposed to get hemodialysis yesterday but he missed his dialysis. Patient was previously admitted in November 2017 for acute respiratory failure and aspiration pneumonia and was also started on antiepileptic drugs during that admission. Patient otherwise denied any fever or chills. No nausea vomiting or abdominal pain. No diarrhea. No cough or sputum production. Influenza PCR negative Chest x-ray showed large left-sided pleural effusion and patchy infiltrate on the right lung Patient is being admitted with possible pneumonia. Nephrology and pulmonary is consulted. Patient underwent thoracentesis with 1 L fluid removal and fluid analysis was sent. 01/25/2018 Patient says that his breathing is better today. Patient underwent thoracentesis with 1 L fluid removal from the left lung on 01/24/2018 CT chest showed large pericardial effusion and pulmonary vascular congestion along with small left-sided pleural effusion. Patient had hemodialysis yesterday. Chest x-rays today showed large pericardial effusion as well. CT surgery was consulted and is waiting for admonitions. No complaints of chest pain. No nausea vomiting or abdominal pain. No fever no chills. 01/26/2018 Patient did improve symptomatically. CT of the chest showed loculated left- sided pleural effusion and large. Currently effusion CT surgery was consulted. Considering for urticarial window. And possible VATS. No evidence of pericardial tamponade in the 2-D echocardiogram. Pleural fluid culture negative. Patient is being continued on hemodialysis as scheduled. No other acute overnight issues 01/27/2018 Chest ultrasound showed 4 cm loculated left-sided pleural effusion. Otherwise patient was seen by CT surgery and considering pericardiocentesi/ pericardial window . Otherwise patient did improve symptomatically. No nausea vomiting or abdominal pain. No fever no chills. Continued on broad-spectrum antibiotics otherwise. Pulmonary and CT surgery is following. On 01/28/2018 Patient denied any worsening shortness of breath or chest pain. Patient getting hemodialysis today. Otherwise does have chest pain with deep breathing. Patient has been afebrile. Pulmonary is following. Pleural fluid is consistent with exudative type. Cytology is pending. Otherwise patient being continued on vancomycin and Zosyn and Levaquin. CT surgery is following. 01/29/2018 Patient is able to ambulate otherwise denied any chest pain. At rest. No worsening shortness of breath. Patient has been tachycardic otherwise. Chest x -ray showed moderate left pleural effusion. patient underwent thoracentesis today. Cytology from previous thoracentesis showed no malignant cells. Otherwise patient denied any fever or chills. Fluid cultures were negative. Continued on current antibiotics in the form of vancomycin and Zosyn and Levaquin No other acute overnight issues. 02/03/2018 chest tube discontinued. Ambulating in hallway without difficulty. Infectious disease has been consulted for discharge antibiotic recommendations. Receiving hemodialysis today. Potassium 5.2. Objective - Vital Signs Vital signs: Vital Signs Temp 98.4 F 02/03/18 15:05 Pulse 101 H 02/03/18 15:05 Resp 18 02/03/18 15:05 BP 158/62 02/03/18 15:05 Pulse Ox 96 02/03/18 15:05 Intake & Output 02/02/18 02/03/18 02/03/18 18:59 06:59 18:59 Intake Total 1080 240 Output Total 600 0 0 Balance 480 240 0 Weight 71.4 kg Intake: Oral 1080 240 Output: Chest Tube Drainage 0 0 0 Chest Tube Left Lateral 0 0 0 Chest Urine 600 Other: Voiding Method Toilet Toilet Toilet Urinal Urinal Urinal # Voids 1 1 - Exam Patient is sitting up in the bed comfortably, no acute distress, awake alert and oriented. HEENT: Normocephalic. Neck is supple. Pupils reactive. Nostrils clear. Oral cavity is moist. Ears reveal no drainage. Neck reveals no JVD, carotid bruits, or thyromegaly. CHEST EXAMINATION: Trachea is central. Symmetrical expansion. Diminished. No wheezing CARDIAC: Normal S1, S2 with no gallops. No murmurs ABDOMEN: Soft. Bowel sounds normal. No organomegaly. No abdominal bruits. Extremities: reveal no edema. No clubbing or cyanosis Neurologically awake, alert, oriented x3 with well-coordinated movements. No focal deficits noted Skin: No rash or skin lesions. Psychiatric: Cooperative. Alert and oriented 3. Musculoskeletal: No joint swelling or deformity. Normal range of motion. - Labs CBC & Chem 7: 02/03/18 06:22 02/03/18 06:22 Labs: Abnormal Lab Results - Last 24 Hours (Table) 01/31/18 02/02/18 02/03/18 Range/Units 07:18 21:11 05:49 WBC (3.8-10.6) k/uL RBC (4.30-5.90) m/uL Hgb (13.0-17.5) gm/dL Hct (39.0-53.0) % RDW (11.5-15.5) % Plt Count (150-450) k/uL Neutrophils # (1.3-7.7) k/uL Lymphocytes # (1.0-4.8) k/uL Sodium (137-145) mmol/L Potassium (3.5-5.1) mmol/L BUN (9-20) mg/dL Creatinine (0.66-1.25) mg/dL Glucose (74-99) mg/dL POC Glucose (mg/dL) 204 H 145 H (75-99) mg/dL Iron 15 L (65-175) ug/dL TIBC 160 L (228-460) ug/dL Iron Saturation 9.38 L (15.00-50.00) 02/03/18 02/03/18 02/03/18 Range/Units 06:22 06:22 12:25 WBC 12.8 H (3.8-10.6) k/uL RBC 2.73 L (4.30-5.90) m/uL Hgb 7.9 L (13.0-17.5) gm/dL Hct 24.8 L (39.0-53.0) % RDW 16.5 H (11.5-15.5) % Plt Count 506 H (150-450) k/uL Neutrophils # 11.6 H (1.3-7.7) k/uL Lymphocytes # 0.7 L (1.0-4.8) k/uL Sodium 135 L (137-145) mmol/L Potassium 5.2 H (3.5-5.1) mmol/L BUN 76 H (9-20) mg/dL Creatinine 5.90 H* (0.66-1.25) mg/dL Glucose 133 H (74-99) mg/dL POC Glucose (mg/dL) 219 H (75-99) mg/dL Iron (65-175) ug/dL TIBC (228-460) ug/dL Iron Saturation (15.00-50.00) 02/03/18 Range/Units 16:59 WBC (3.8-10.6) k/uL RBC (4.30-5.90) m/uL Hgb (13.0-17.5) gm/dL Hct (39.0-53.0) % RDW (11.5-15.5) % Plt Count (150-450) k/uL Neutrophils # (1.3-7.7) k/uL Lymphocytes # (1.0-4.8) k/uL Sodium (137-145) mmol/L Potassium (3.5-5.1) mmol/L BUN (9-20) mg/dL Creatinine (0.66-1.25) mg/dL Glucose (74-99) mg/dL POC Glucose (mg/dL) 252 H (75-99) mg/dL Iron (65-175) ug/dL TIBC (228-460) ug/dL Iron Saturation (15.00-50.00) Microbiology - Last 24 Hours (Table) 01/29/18 15:30 Gram Stain - Final Thoracic Fluid Body Fluid Culture - Final Assessment and Plan Assessment: Shortness of breath due to left large pleural effusion. Possible parapneumonic effusion is being considered. With the recent pneumonic infiltrate of the lingula Large pericardial effusion, status post thoracentesis with 1 L fluid removal on 01/24/2018. Repeat left thoracentesis on 01/29/2018. Fluid cultures showed no growth. cytology showed no malignant cells. Fluid is exudative. Pneumonia with bilateral lower lobe pulmonary infiltrates. Recent hospitalization for status of her progress and acute respiratory failure with pneumonia Hypertension Hyperlipidemia ESRD on hemodialysis. History of sponge kidney left arm fistula Noncompliance with hemodialysis History of left thalamus CVA in July 2017 Chronic normocytic anemia/anemia of chronic disease Spinal stenosis, chronic back pain and his chronic cervical pain History of nephrolithiasis DVT prophylaxis Plan: Continue on current medication regime ,monitoring and symptomatic treatment. Low potassium diet, close monitoring of electrolytes and hemoglobin with repeat labs ordered for a.m. Maintain IV antibiotics, infectious disease consulted for discharge antibiotic recommendations. Increase ambulation as tolerated. Aggressive pulmonary toileting with incentive spirometer reinforced. Smoking cessation re-addressed.Hemodialysis as per nephrology. Blood sugars trending up, on steroids. Pre-meal insulin added to med regime with parameters to hold if Accu-Chek less than 120. Close monitoring of Accu- Cheks The impression and plan of care has been dictated as directed. : I performed a history and examination of this patient, discussed the same with the dictator. I agree with the dictator's note ,documented as a scribe. Any additional findings or plans will be noted.
[2018-02-03] MEDS ORDERED: VANCOMYCIN 1,250 MG in SODIUM CHLORIDE 0.9% 250 ML IVPB ONE (18:00)
[2018-02-03] MEDS: MELATONIN 5 MG TABLET PO SCH (19:29)
[2018-02-03] MEDS: QUEtiapine 25 MG TAB PO SCH (19:29)
[2018-02-03] MEDS: LISINOPRIL 20 MG TAB PO SCH (19:30)
[2018-02-03 21:00] LABS: Glucose,Whole Blood 224 mg/dL (75-99)
--- NOTE | 2018-02-03 21:30 | P.PN ---
Subjective Progress Note Date: 01/30/18 Principal diagnosis: Pleural effusion Patient is a 47-year-old male with a known history of ESRD on hemodialysis TTS and multiple medical problems came to ER with complaints of shortness of breath. Patient had last hemodialysis on Saturday. Patient is supposed to get hemodialysis yesterday but he missed his dialysis. Patient was previously admitted in November 2017 for acute respiratory failure and aspiration pneumonia and was also started on antiepileptic drugs during that admission. Patient otherwise denied any fever or chills. No nausea vomiting or abdominal pain. No diarrhea. No cough or sputum production. Influenza PCR negative Chest x-ray showed large left-sided pleural effusion and patchy infiltrate on the right lung Patient is being admitted with possible pneumonia. Nephrology and pulmonary is consulted. Patient underwent thoracentesis with 1 L fluid removal and fluid analysis was sent. 01/25/2018 Patient says that his breathing is better today. Patient underwent thoracentesis with 1 L fluid removal from the left lung on 01/24/2018 CT chest showed large pericardial effusion and pulmonary vascular congestion along with small left-sided pleural effusion. Patient had hemodialysis yesterday. Chest x-rays today showed large pericardial effusion as well. CT surgery was consulted and is waiting for admonitions. No complaints of chest pain. No nausea vomiting or abdominal pain. No fever no chills. 01/26/2018 Patient did improve symptomatically. CT of the chest showed loculated left- sided pleural effusion and large. Currently effusion CT surgery was consulted. Considering for urticarial window. And possible VATS. No evidence of pericardial tamponade in the 2-D echocardiogram. Pleural fluid culture negative. Patient is being continued on hemodialysis as scheduled. No other acute overnight issues 01/27/2018 Chest ultrasound showed 4 cm loculated left-sided pleural effusion. Otherwise patient was seen by CT surgery and considering pericardiocentesi/ pericardial window . Otherwise patient did improve symptomatically. No nausea vomiting or abdominal pain. No fever no chills. Continued on broad-spectrum antibiotics otherwise. Pulmonary and CT surgery is following. On 01/28/2018 Patient denied any worsening shortness of breath or chest pain. Patient getting hemodialysis today. Otherwise does have chest pain with deep breathing. Patient has been afebrile. Pulmonary is following. Pleural fluid is consistent with exudative type. Cytology is pending. Otherwise patient being continued on vancomycin and Zosyn and Levaquin. CT surgery is following. 01/29/2018 Patient is able to ambulate otherwise denied any chest pain. At rest. No worsening shortness of breath. Patient has been tachycardic otherwise. Chest x -ray showed moderate left pleural effusion. patient underwent thoracentesis today. Cytology from previous thoracentesis showed no malignant cells. Otherwise patient denied any fever or chills. Fluid cultures were negative. Continued on current antibiotics in the form of vancomycin and Zosyn and Levaquin No other acute overnight issues. 01/30/2018 Patient denied any worsening shortness of breath or chest pain today. CT surgery is planning for pericardial window likely tomorrow. Patient did improve symptomatically after thoracentesis yesterday. Previous cultures have been negative. We will continue to follow up further culture report and monitor closely. Patient will remain on broad-spectrum antibiotics. All other review of systems negative except the above. Current medications reviewed. Active Medications Acetaminophen (Tylenol Tab) 650 mg PO Q6HR PRN PRN Reason: Fever and/ or Pain Last Admin: 01/29/18 20:52 Dose: 650 mg Albuterol/Ipratropium (Duoneb 0.5 Mg-3 Mg/3 Ml Soln) 3 ml INHALATION RT-QID [facility] Last Admin: 01/29/18 19:32 Dose: 3 ml Amlodipine Besylate (Norvasc) 5 mg PO BID [facility] Last Admin: 01/29/18 20:43 Dose: 5 mg Aspirin (Aspirin) 325 mg PO DAILY [facility] Last Admin: 01/29/18 07:46 Dose: 325 mg Atorvastatin Calcium (Lipitor) 20 mg PO DAILY [facility] Last Admin: 01/29/18 07:45 Dose: 20 mg Calcium Acetate (Phoslo) 667 mg PO TID-W/MEALS [facility] Last Admin: 01/29/18 17:57 Dose: 667 mg Clonidine (Catapres) 0.1 mg PO BID [facility] Last Admin: 01/29/18 20:43 Dose: 0.1 mg Darbepoetin Jim (Aranesp) 40 mcg SQ Q7D [facility] Last Admin: 01/24/18 16:22 Dose: 40 mcg Enoxaparin Sodium (Lovenox) 30 mg SQ DAILY [facility] Last Admin: 01/29/18 07:46 Dose: 30 mg Ergocalciferol (Vitamin D2) 50,000 unit PO Q30D [facility] Gabapentin (Neurontin) 100 mg PO BID [facility] Last Admin: 01/29/18 20:43 Dose: 100 mg Hydralazine HCl (Apresoline) 10 mg IVP Q4HR PRN PRN Reason: Blood Pressure - High Last Admin: 01/29/18 20:41 Dose: 10 mg Piperacillin/Tazobactam/ (Dextrose 3.375 gm/ IV Solution) 50 mls @ 12.5 mls/hr IVPB Q12H [facility] Last Admin: 01/29/18 21:11 Dose: 12.5 mls/hr Vancomycin HCl 1,250 mg/ (Sodium Chloride) 250 mls @ 125 mls/hr IVPB ONCE ONE Stop: 01/30/18 07:59 Levetiracetam (Keppra) 1,000 mg PO Q12HR [facility] Last Admin: 01/29/18 20:42 Dose: 1,000 mg Levofloxacin (Levaquin) 500 mg PO Q48H [facility] Last Admin: 01/28/18 08:57 Dose: 500 mg Lisinopril (Zestril) 10 mg PO BID [facility] Last Admin: 01/29/18 20:43 Dose: 10 mg Melatonin (Melatonin) 5 mg PO [facility] Last Admin: 01/29/18 20:42 Dose: 5 mg Methocarbamol (Robaxin) 750 mg PO TID PRN PRN Reason: MODERATE MUSCLE PAIN Last Admin: 01/28/18 20:01 Dose: 750 mg Miscellaneous Information (Pharmacy To Dose Iv Vancomycin) 1 each MISCELLANE DIRECTED PRN PRN Reason: Per Protocol Miscellaneous Information (Pneumonia Protocol Utilized) 1 each PO ONCE PRN PRN Reason: Per Protocol Nicotine (Habitrol 14mg/24hr Patch) 1 patch TRANSDERM DAILY [facility] Last Admin: 01/29/18 07:51 Dose: Not Given Quetiapine Fumarate (Seroquel) 25 mg PO HS [facility] Last Admin: 01/29/18 20:43 Dose: 25 mg Spironolactone (Aldactone) 50 mg PO DAILY [facility] Last Admin: 01/29/18 07:45 Dose: 50 mg Objective - Vital Signs Vital signs: Vital Signs Temp 98.0 F 01/30/18 07:00 Pulse 106 H 01/30/18 11:04 Resp 20 01/30/18 08:00 BP 139/81 01/30/18 07:00 Pulse Ox 94 L 01/30/18 07:15 Intake & Output 01/29/18 01/30/18 01/30/18 18:59 06:59 18:59 Intake Total 1610 1215 Output Total 50 Balance 1560 1215 Weight 65.6 kg 65.6 kg Intake: IV 250 Piperacillin-Tazobactam 3 250 .375 gm In Dextrose/Water 1 50ml.bag @ 12.5 mls/hr IVPB Q12H [facility] Rx#: [id number] Intake, IV Titration 50 425 Amount Piperacillin-Tazobactam 3 50 50 .375 gm In Dextrose/Water 1 50ml.bag @ 12.5 mls/hr IVPB Q12H [facility] Rx#: [id number] Vancomycin 1,250 mg In 375 Sodium Chloride 0.9% 250 ml @ 125 mls/hr IVPB ONCE ONE Rx#:[id number] Oral 1560 540 Output: Urine 50 Other: Voiding Method Toilet Toilet # Voids 2 1 - Exam Patient is lying in the bed comfortably, no acute distress, awake alert and oriented.. HEENT: Normocephalic. Neck is supple. Pupils reactive. Nostrils clear. Oral cavity is moist. Ears reveal no drainage. Neck reveals no JVD, carotid bruits, or thyromegaly. CHEST EXAMINATION: Trachea is central. Symmetrical expansion. Diminished breath sounds and left basilar crackles. No wheezing CARDIAC: Normal S1, S2 with no gallops. No murmurs ABDOMEN: Soft. Bowel sounds normal. No organomegaly. No abdominal bruits. Extremities: reveal no edema. No clubbing or cyanosis Neurologically awake, alert, oriented x3 with well-coordinated movements. No focal deficits noted Skin: No rash or skin lesions. Psychiatric: Cooperative. Nonsuicidal Musculoskeletal: No joint swelling or deformity. Normal range of motion. - Labs CBC & Chem 7: 02/03/18 06:22 02/03/18 06:22 Labs: Microbiology - Last 24 Hours (Table) 01/24/18 00:56 Blood Culture - Final Blood No Growth after 144 hours 01/29/18 15:30 Acid Fast Bacilli Culture - Preliminary Thoracentesis Fluid 01/29/18 15:30 Fungal Culture - Preliminary Thoracentesis Fluid 01/29/18 15:30 Body Fluid Culture - Preliminary Thoracic Fluid Assessment and Plan Assessment: Shortness of breath due to left large pleural effusion. Possible parapneumonic effusion is being considered. With the recent pneumonic infiltrate of the lingula Large pericardial effusion Pneumonia with bilateral lower lobe pulmonary infiltrates. Recent hospitalization for status of her progress and acute respiratory failure with pneumonia Hypertension Hyperlipidemia ESRD on hemodialysis. 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 Pulmonary and nephrology is following. Patient underwent thoracentesis with 1 L fluid removal on 01/24/2018. Patient again had left thoracentesis on 01/29/2018. Fluid cultures showed no growth. cytology showed no malignant cells. Fluid is exudative. Hemodialysis as per nephrology. CT surgery is following. Continue with home medications and further recommendations based on the clinical course. Prognosis is guarded with multiple medical problems and comorbid conditions. Time with Patient: Greater than 30
--- NOTE | 2018-02-03 23:07 | PN ---
PROGRESS NOTE The patient is currently seen on hemodialysis. He is tolerating his treatment well. He still has a chest tube in, which will be removed later on today. The patient was seen this morning at about 9:30 am. EXAMINATION: Blood pressure this morning was 180/95, heart rate 107 per minute. The patient is afebrile. Examination of the heart: S1, S2. Examination of the lungs: Bilateral breath sounds are heard. Abdomen is soft, nontender. Examination of the lower extremities shows no evidence of edema. HUNTER exam is grossly intact. ASSESSMENT: 1. End-stage renal disease, on hemodialysis, currently being dialyzed on a daily basis secondary to pericardial effusion. 2. Large pericardial effusion, which appeared chronic with chronic changes in the pericardium. All cultures are currently pending. Acid fast bacilli smear was negative. 3. Hypertension, currently uncontrolled. I will increase the dose of lisinopril back to what the patient was taking at home, since now his blood pressures have been staying high. MMODL / IJN: [id number] /
[2018-02-04 05:59] LABS: Anisocytosis Slight; Basophils # (A) 0.1 k/uL (0-0.2); Basophils % (A) 0 %; Eosinophils % (A) 0 %; HCT 21.5 % (39.0-53.0); Hypochromasia Moderate; Lymphocytes # (A) 0.6 k/uL (1.0-4.8); Lymphocytes % (A) 4 %; MCH 29.1 pg (25.0-35.0); MCHC 31.9 g/dL (31.0-37.0); MCV 91.2 fL (80.0-100.0); Mean Platelet Volume 6.9; Monocytes # (A) 0.5 k/uL (0-1.0); Monocytes % (A) 4 %; Neutrophils # (A) 11.7 k/uL (1.3-7.7); Neutrophils % (A) 91 %; Platelet Count 471 k/uL (150-450); Poikilocytosis Slight; RBC 2.36 m/uL (4.30-5.90); RDW 16.7 % (11.5-15.5); WBC 12.9 k/uL (3.8-10.6)
[2018-02-04] MEDS: methylPREDNISolone SOD SUCCI 125 MG/2 ML VIAL IV SCH (05:59)
[2018-02-04 06:01] LABS: Glucose,Whole Blood 148 mg/dL (75-99)
[2018-02-04] MEDS: PIPERACILLIN-TAZOBACTAM 3.375 GM in DEXTROSE/WATER 1 50ML.BAG IVPB SCH (06:01)
[2018-02-04 06:10] LABS: Calcium 8.7 mg/dL (8.4-10.2); Potassium 4.9 mmol/L (3.5-5.1)
[2018-02-04 06:16] LABS: HGB 6.9 gm/dL (13.0-17.5)
[2018-02-04] MEDS: INSULIN ASPART 100 UNIT/ML 1 ML 10 ML VIAL SQ SCH ×4 (07:04→12:49)
[2018-02-04] MEDS: CALCIUM ACETATE 667 MG CAP PO SCH ×2 (07:04→12:49)
--- NOTE | 2018-02-04 08:03 | XR ---
EXAMINATION TYPE: XR chest 2V DATE OF EXAM: 02/04/2018 COMPARISON: Chest x-ray from yesterday and older studies. HISTORY: Chest tube post VATS progress study. TECHNIQUE: Frontal and lateral views of the chest are obtained. FINDINGS: There is interval removal of left basilar chest tube. There is persistent small bilateral pleural effusions. There is persistent scattered areas of atelectasis and/or trapped pleural fluid th roughout the left lung. There is patchy right basilar atelectasis. No sizable pneumothorax is seen bi laterally. Cardiac silhouette size is stable and upper limits of normal. Osseous structures are intac t. IMPRESSION: Interval removal of left basilar chest tube. No sizable pneumothorax is seen bilaterally . Persistent small bilateral pleural effusions and scattered areas of atelectasis in the left lung no t significantly changed from prior.
[2018-02-04] MEDS: IPRATROPIUM-ALBUTEROL 3 ML NEB INHALATION SCH ×3 (08:44→16:36)
[2018-02-04] MEDS: NICOTINE 14MG/24HR PATCH TRANSDERM SCH (09:23)
--- NOTE | 2018-02-04 10:50 | P.PN ---
Subjective Progress Note Date: 02/04/18 Principal diagnosis: Left sided empyema with large pericardial effusion, end-stage renal disease on hemodialysis, hypertension, history of cerebrovascular accident in July 2017, seizure disorder, current tobacco dependence, chronic thrombocytopenia, chronic anemia, nephrolithiasis. POD #11 left sided thoracentesis with removal of 1000 mL fluid, POD #6 left sided thoracentesis with removal of 900 mL fluid POD #4 video thoracoscopic assisted partial decortication of the left chest. Video-assisted pericardial window Patient's currently sitting up in bed in no acute distress. States his pain is controlled with ordered medications. Has been up ambulating in the hallway. Left pleural chest tube discontinued yesterday. Objective - Vital Signs Vital signs: Vital Signs Temp 97.7 F 02/04/18 08:00 Pulse 94 02/04/18 08:00 Resp 16 02/04/18 08:00 BP 166/84 02/04/18 08:00 Pulse Ox 95 02/04/18 08:00 Intake & Output 02/03/18 02/04/18 02/04/18 18:59 06:59 18:59 Intake Total 180 Output Total 0 Balance 0 180 Weight 71.1 kg Intake: Oral 180 Output: Chest Tube Drainage 0 Chest Tube Left Lateral 0 Chest Other: Voiding Method Toilet Toilet Toilet Urinal Urinal Urinal # Voids 1 1 - Constitutional General appearance: Present: cooperative, no acute distress - Respiratory Details: Lungs sounds diminished bilaterally. Respirations even, nonlabored. Currently on room air with oxygen saturation 95%. - Cardiovascular Details: S1, S2 present. Regular rate and rhythm, sinus rhythm on telemetry. Palpable peripheral pulses bilaterally. No edema present. - Gastrointestinal Gastrointestinal Comment(s): Abdomen soft, nontender, nondistended. Active bowel sounds x 4 quadrants. Tolerating diet - Genitourinary Genitourinary Comment(s): Continues to void. - Integumentary Integumentary Comment(s): Skin is warm and dry with evidence of good perfusion. Left pleural chest tube site covered with dry intact dressing. - Neurologic Neurologic: Present: CNII-XII intact - Musculoskeletal Musculoskeletal: Present: gait normal, strength equal bilaterally - Psychiatric Psychiatric: Present: A&O x's 3, appropriate affect, intact judgment & insight - Allied health notes Allied health notes reviewed: nursing - Labs CBC & Chem 7: 03/20/18 05:21 02/04/18 05:21 Labs: Abnormal Lab Results - Last 24 Hours (Table) 02/03/18 02/03/18 02/03/18 Range/Units 12:25 16:59 20:58 WBC (3.8-10.6) k/uL RBC (4.30-5.90) m/uL Hgb (13.0-17.5) gm/dL Hct (39.0-53.0) % RDW (11.5-15.5) % Plt Count (150-450) k/uL Neutrophils # (1.3-7.7) k/uL Lymphocytes # (1.0-4.8) k/uL Sodium (137-145) mmol/L Carbon Dioxide (22-30) mmol/L BUN (9-20) mg/dL Creatinine (0.66-1.25) mg/dL Glucose (74-99) mg/dL POC Glucose (mg/dL) 219 H 252 H 224 H (75-99) mg/dL 02/04/18 02/04/18 02/04/18 Range/Units 05:21 05:21 06:00 WBC 12.9 H (3.8-10.6) k/uL RBC 2.36 L (4.30-5.90) m/uL Hgb 6.9 L* (13.0-17.5) gm/dL Hct 21.5 L (39.0-53.0) % RDW 16.7 H (11.5-15.5) % Plt Count 471 H (150-450) k/uL Neutrophils # 11.7 H (1.3-7.7) k/uL Lymphocytes # 0.6 L (1.0-4.8) k/uL Sodium 134 L (137-145) mmol/L Carbon Dioxide 21 L (22-30) mmol/L BUN 67 H (9-20) mg/dL Creatinine 4.60 H (0.66-1.25) mg/dL Glucose 133 H (74-99) mg/dL POC Glucose (mg/dL) 148 H (75-99) mg/dL - Imaging and Cardiology Chest x-ray: report reviewed, image reviewed Assessment and Plan (1) Chest pain Current Visit: Yes Status: Acute Code(s): R07.9 - CHEST PAIN, UNSPECIFIED SNOMED Code(s): 63640685 (2) Community acquired pneumonia Current Visit: Yes Status: Acute Code(s): J18.9 - PNEUMONIA, UNSPECIFIED ORGANISM SNOMED Code(s): 104679778 (3) End stage renal disease on dialysis Current Visit: Yes Status: Chronic Code(s): N18.6 - END STAGE RENAL DISEASE ; Z99.2 - DEPENDENCE ON RENAL DIALYSIS SNOMED Code(s): 239491895 (4) Fever Current Visit: Yes Status: Acute Code(s): R50.9 - FEVER, UNSPECIFIED SNOMED Code(s): 383368082 (5) Pleural effusion, left Current Visit: Yes Status: Acute Code(s): J90 - PLEURAL EFFUSION, NOT ELSEWHERE CLASSIFIED SNOMED Code(s): 29695927 (6) Generalized seizure Current Visit: Yes Status: Chronic Code(s): R56.9 - UNSPECIFIED CONVULSIONS SNOMED Code(s): 936111407 (7) History of stroke Current Visit: No Status: Resolved Code(s): Z86.73 - PRSNL HX OF TIA (TIA), AND CEREB INFRC W/O RESID DEFICITS SNOMED Code(s): 559777999 (8) Hypertension Current Visit: Yes Status: Chronic Code(s): I10 - ESSENTIAL (PRIMARY) HYPERTENSION SNOMED Code(s): 29482807 (9) Tobacco dependence Current Visit: Yes Status: Chronic Code(s): F17.200 - NICOTINE DEPENDENCE, UNSPECIFIED, UNCOMPLICATED SNOMED Code(s): 76863653 Plan: 1. Chest tube discontinued yesterday. Chest x-ray this morning reviewed. 2. Pain management with ordered medications. 3. Dialysis management per nephrology. 4. Medical management per Dr. Robison's service. 5. Encourage incentive spirometry use 10 times every hour. Encourage smoking cessation. 6. Antibiotics per primary care service. 7. Increase activity, ambulate in hallway. 8. Will sign off the case. May discharge to home from our standpoint when okay with other services. Follow-up appointment made for Dr. Solis. Chest tube sutures to be removed 10-14 days post surgery, February 10-. Patient may have this done at his appointment with Dr. Fraire or may call the surgery office at [phone] Time with Patient: Greater than 30
[2018-02-04 11:47] LABS: Glucose,Whole Blood 200 mg/dL (75-99)
[2018-02-04 11:51] VITALS: RESP 18
--- NOTE | 2018-02-04 13:24 | P.PN ---
Subjective Progress Note Date: 02/04/18 Principal diagnosis: Large left-sided pleural parapneumonic effusion, status post thoracentesis 2. Large pericardial effusion without tamponade. 47-year-old male patient, presented to the hospital because of worsening shortness of breath. The patient has multiple medical problems and comorbidities. The patient was in the hospital back in and at that time the patient was in acute respiratory failure and aspiration pneumonia was suspected knowing that the patient was having generalized tonic-clonic seizures. The patient at that time presented to the hospital post ictal with altered mentation and he was combative. He was treated and he was stabilized. He was placed on antiepileptic medication. He is known also to have end-stage renal disease and he is on hemodialysis 3 times a week, TTS, and he has been very compliant and he has not missed any of his dialysis sessions. 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 Upon discharge, the patient was released home on Augmentin 875 mg 1 tablet by mouth twice a day. He was also receiving Keppra for his seizure activity. He was seen in our office on 01/13/2018 and the patient had a new infiltrate in the lingula and the left lower lobe and there was obvious improved aeration of the right lower lobe. Small bilateral pleural effusion was noted. Over the next 1-2 week, the patient's condition got worse and he came into the hospital yesterday with a large left-sided pleural effusion. He did spike a temperature earlier and currently is afebrile. His white cell count is not elevated at 10.7. Rest of the electrolytes are consistent with his renal failure knowing that the patient a BUN of 40 with a creatinine of 10.5 and his potassium level is at 4.6. Currently is on a combination of Zosyn and vancomycin. Based on this large left-sided pleural effusion, a pulmonary consultation was requested. I saw this patient. I did a side thoracentesis during which I removed a total of 1000 ML's of pleural fluid. I should be able to take more fluids yet the patient experienced increased pain and pleurisy along the left lung and I had to stop the procedure. I'm sure there is more fluid left within his left pleural space. A subsequent chest x-ray showed no evidence of any pneumothorax and there is some limited improvement in the aeration of the left lung with residual atelectasis/consolidation/effusion the left lung base. The pleural fluid was sent for analysis. Progress note dated 02/03/2018 47-year-old male with a history of large left pleural effusion, status post multiple thoracentesis. The patient had a previous hospitalization for respiratory failure secondary to seizure activity a pneumonia on the right side. This likely with aspiration pneumonia. On this admission the patient was also found have a large pericardial effusion status post pericardial window , postop day #3. In addition to all of this, he has a history of hypertension left thalamic CVA chronic thrombocytopenia chronic alcohol abuse end-stage renal disease chronic anemia spinal stenosis nephrolithiasis hyperlipidemia seizure disorder and VATS decortication of the left chest at the same time of the pericardial window, postop day #3. Overall, the patient seemed be doing relatively well. Chest x-rays not much improvement or change. Doesn't look bad. Chest tube is in place. The patient's fluid was an exudate. Cultures and cytology are still pending. The patient seemed relatively comfortable. This taking 2 L of oxygen by nasal cannula. Apparently yesterday he wanted to leave the hospital but was convinced to stay. Progress note dated 02/04/2018 The patient is seen again today in follow-up on the selective care unit. He is currently awake and alert in no acute distress. He is receiving hemodialysis. He denies any worsening shortness of breath, cough or congestion. Today's chest x-ray shows persistent small bilateral effusions and scattered atelectasis. Left basilar chest tube has been removed. No sizable pneumothorax. He is maintaining good O2 saturations in the high 90s on room air. He's been afebrile. White count 12.9. Hemoglobin 6.9. Creatinine 4.60. Objective - Vital Signs Vital signs: Vital Signs Temp 97.4 F L 02/04/18 11:57 Pulse 111 H 02/04/18 11:57 Resp 18 02/04/18 11:57 BP 173/98 02/04/18 11:57 Pulse Ox 98 02/04/18 11:57 Intake & Output 02/03/18 02/04/18 02/04/18 18:59 06:59 18:59 Intake Total 180 Output Total 0 Balance 0 180 Weight 71.1 kg Intake: Oral 180 Blood Product 0 Rc As-3 Unit 0 [id number] Output: Chest Tube Drainage 0 Chest Tube Left Lateral 0 Chest Other: Voiding Method Toilet Toilet Toilet Urinal Urinal Urinal # Voids 1 1 0 - Exam GENERAL EXAM: Alert, pleasant, 47-year-old white male comfortable in no apparent distress. HEAD: Normocephalic/atraumatic. EYES: Normal reaction of pupils, equal size. Conjunctiva pink, sclera white. NOSE: Clear with pink turbinates. THROAT: No erythema or exudates. NECK: No masses, no JVD, no thyroid enlargement, no adenopathy. CHEST: No chest wall deformity. Symmetrical expansion. LUNGS: Equal air entry with no crackles, wheeze, rhonchi. CVS: Regular rate and rhythm, normal S1 and S2, no gallops, no murmurs, no rubs ABDOMEN: Soft, nontender. No hepatosplenomegaly, normal bowel sounds, no guarding or rigidity. EXTREMITIES: No clubbing, no edema, no cyanosis, 2+ pulses and upper and lower extremities. There is a right upper extremity functional AV fistula with positive bruit and thrill MUSCULOSKELETAL: Muscle strength and tone normal. SPINE: No scoliosis or deformity SKIN: No rashes CENTRAL NERVOUS SYSTEM: Alert and oriented -3. No focal deficits, tone is normal in all 4 extremities. PSYCHIATRIC: Alert and oriented -3. Appropriate affect. Intact judgment and insight. - Labs CBC & Chem 7: 02/04/18 05:21 02/04/18 05:21 Labs: Abnormal Lab Results - Last 24 Hours (Table) 02/03/18 02/03/18 02/04/18 Range/Units 16:59 20:58 05:21 WBC 12.9 H (3.8-10.6) k/uL RBC 2.36 L (4.30-5.90) m/uL Hgb 6.9 L* (13.0-17.5) gm/dL Hct 21.5 L (39.0-53.0) % RDW 16.7 H (11.5-15.5) % Plt Count 471 H (150-450) k/uL Neutrophils # 11.7 H (1.3-7.7) k/uL Lymphocytes # 0.6 L (1.0-4.8) k/uL Sodium (137-145) mmol/L Carbon Dioxide (22-30) mmol/L BUN (9-20) mg/dL Creatinine (0.66-1.25) mg/dL Glucose (74-99) mg/dL POC Glucose (mg/dL) 252 H 224 H (75-99) mg/dL Crossmatch 02/04/18 02/04/18 02/04/18 Range/Units 05:21 06:00 07:33 WBC (3.8-10.6) k/uL RBC (4.30-5.90) m/uL Hgb (13.0-17.5) gm/dL Hct (39.0-53.0) % RDW (11.5-15.5) % Plt Count (150-450) k/uL Neutrophils # (1.3-7.7) k/uL Lymphocytes # (1.0-4.8) k/uL Sodium 134 L (137-145) mmol/L Carbon Dioxide 21 L (22-30) mmol/L BUN 67 H (9-20) mg/dL Creatinine 4.60 H (0.66-1.25) mg/dL Glucose 133 H (74-99) mg/dL POC Glucose (mg/dL) 148 H (75-99) mg/dL Crossmatch See Detail 02/04/18 Range/Units 11:43 WBC (3.8-10.6) k/uL RBC (4.30-5.90) m/uL Hgb (13.0-17.5) gm/dL Hct (39.0-53.0) % RDW (11.5-15.5) % Plt Count (150-450) k/uL Neutrophils # (1.3-7.7) k/uL Lymphocytes # (1.0-4.8) k/uL Sodium (137-145) mmol/L Carbon Dioxide (22-30) mmol/L BUN (9-20) mg/dL Creatinine (0.66-1.25) mg/dL Glucose (74-99) mg/dL POC Glucose (mg/dL) 200 H (75-99) mg/dL Crossmatch Assessment and Plan Assessment: Assessment: 1 large left-sided pleural effusion, post thoracentesis and removal of 1 L of turbid pleural fluid from the left lung. The fluid is exudate and there is some residual loculated left-sided pleural effusion and subsequent CAT scan of the chest and some left lower lobe atelectasis and consolidation. The fluid is an exudate. Cultures are still pending for now. Pleuritic chest pain has recovered from the left lung. The follow-up CAT scan of the chest showed persistence of loculated left-sided pleural effusion although a smaller amount and there is also left lower lobe consolidation and atelectasis. Ultrasound of the chest from 01/27/2018 showed left pleural fluid pocket of 4.1 cm, status post second thoracentesis of another 900 mL's removed. Status post VATS procedure. 2 large pericardial effusion without signs of clinical cardiac temponade. Status post pericardial window. 3 recent hospitalization for a acute respiratory failure secondary to seizure activity and pneumonia, recovered on the right. Subsequently the patient developed a extensive pneumonia of the left and this is probably a aspiration pneumonia. 4 hypertension 5 left thalamus CVA from July 2017 6 chronic thrombocytopenia recovered and the platelet count has been normalized 7 concerns towards chronic alcoholism 8 End stage renal disease currently on hemodialysis 3 times a week 9 chronic anemia, hemoglobin 6.9. Receiving a unit of packed red blood cells. 10 spinal stenosis, chronic back pain, chronic cervical pain 11 nephrolithiasis 12 hyperlipidemia 13 seizure history with previous history of status epilepticus, currently on Keppra Plan The patient was seen and evaluated by Dr. Leggett. We will continue his current treatment plan for now. Increase his activity as tolerated. Continue the use of the incentive spirometer and cough and deep breathing exercises. We'll continue to follow and make further recommendations based on his clinical status. I, the cosigning physician, performed a history & physical examination of the patient. Lungs sounds have crackles in the posterior bases left greater than right. Maintaining good O2 saturations in the 90s on room air. I discussed the assessment and plan of care with my nurse practitioner, Jing Patterson. I attest to the above note as dictated by her.
[2018-02-04 13:50] VITALS: BP 178/87; PULSE 102; TEMP 98.5
[2018-02-04] MEDS: amLODIPine 5 MG TAB PO SCH (14:09)
[2018-02-04] MEDS: ASPIRIN 325 MG TAB PO SCH (14:09)
[2018-02-04] MEDS: GABAPENTIN 100 MG CAP PO SCH (14:09)
[2018-02-04] MEDS: ENOXAPARIN 30 MG/0.3 ML SYRINGE SQ SCH (14:09)
[2018-02-04] MEDS: ATORVASTATIN 20 MG TAB PO SCH (14:09)
[2018-02-04] MEDS: levETIRAcetam 500 MG TAB PO SCH (14:10)
[2018-02-04] MEDS: METOPROLOL TARTRATE 25 MG TAB PO SCH (14:11)
[2018-02-04] MEDS: LISINOPRIL 20 MG TAB PO SCH (14:11)
[2018-02-04] MEDS: SPIRONOLACTONE 25 MG TAB PO SCH (14:12)
[2018-02-04] MEDS ORDERED: methylPREDNISolone SOD SUCCI 40 MG/ML 1 ML VIAL IV SCH (16:00)
--- NOTE | 2018-02-04 17:41 | PN ---
PROGRESS NOTE Patient is seen for followup for end-stage renal disease. He will be dialyzed today. He should be going home. Hemoglobin was down to 6.9. The patient will be receiving 1 unit packed RBCs. There was no active bleeding noted. His chest tube came out yesterday. EXAMINATION: Blood pressure was 173/98, heart rate of 111 per minute. Patient is afebrile. HEART: S1, S2. LUNGS: Bilateral breath sounds are heard. Abdomen is soft, nontender. Lower extremities show no significant edema. [employer] is grossly intact. LABS: Show sodium 134, potassium 4.9, chloride 21, BUN 67, serum creatinine 4.6. Hemoglobin 6.9 g/dL. ASSESSMENT: 1. End-stage renal disease on hemodialysis on a Saturday, , Saturday schedule as outpatient. The patient can be discharged today after dialysis. 2. Anemia with no active bleeding noted maintained on Aranesp. Iron saturation was 9.38 on 03/03. I will give him a dose of IV iron if he is not going home. Otherwise, we can give it as outpatient at the dialysis unit as well. 3. Large pericardial effusion, status post pericardial centesis and removal of chest tube, doing fairly well. All cultures are negative thus far. 4. Hypertension, currently uncontrolled. Patient was on labetalol at home, which I do not see on his current med list. In fact, now he is on Lopressor at a lower dose. We can increase it to 50 mg b.i.d. If blood pressure remains in control, I will switch it to labetalol. The patient was on 400 mg b.i.d. MMODL / IJN: [id number] /
--- NOTE | 2018-02-04 18:56 | CONS ---
CONSULTATION DATE OF SERVICE: 02/04/2018. REASON FOR CONSULTATION: Discharge antibiotic recommendation. HISTORY OF PRESENT ILLNESS: The patient is a 47-year-old male presenting to the ER at [facility] on 01/24/2018 with a chief complaint of increasing shortness of breath. The patient's breathing had been getting worse for the last few days prior to presentation to hospital. The patient did have a complaint of some white sputum. The patient denies any fever, rigors or any nausea and vomiting. The patient on arrival to the ER was afebrile, subsequently did have a low-grade fever of 100. The patient's workup did include a chest x-ray followed by a CT of chest which showed large pericardial effusion, bilateral pleural effusion and large on the right side bilateral pulmonary infiltrate and atelectasis. The patient has been seen by CT Surgery and the patient is status post thoracentesis x2, initial with removal of 1000 mL followed by 900 mL of fluid removed. The patient also had a VATS procedure on the left side and a pericardial window. The patient during this hospitalization did have blood cultures on admission, have been negative. The patient did have a pleural fluid culture on 01/24 which has been negative. Sputum with Ana albicans and repeat pleural culture of the fluid on the has been negative as well. He was treated with a broad-spectrum antibiotic in the form of vancomycin and Zosyn as well as the Levaquin. I was asked to see the patient for possible discharge antibiotic therapy. The patient's breathing has improved. He did have very mild cough, not bringing up any sputum. The patient's chest pain is improved, especially after removal of the chest tube. The patient denies having any abdominal pain. No nausea, no vomiting and no diarrhea. The patient did have a history of end-stage renal disease, currently undergoing hemodialysis. REVIEW OF SYSTEMS: CONSTITUTIONAL: Positive for weakness and no fever. EYES: No complaint. ENT: No complaint. RESPIRATORY: As per HPI. CARDIOVASCULAR: No complaint. GENITOURINARY: No complaint. GASTROINTESTINAL: No complaint. MUSCULOSKELETAL: No complaint. INTEGUMENTARY: No complaint. PSYCHOLOGICAL: No complaint. ENDOCRINE: No complaint. NEUROLOGICAL: No complaint. PAST MEDICAL HISTORY: Significant for end-stage renal disease on hemodialysis, hypertension, seizure disorder. PAST SURGICAL HISTORY: Right upper extremity fistula for the dialysis, JJ catheter via stent placement, right ankle ORIF fracture and colonoscopy. SOCIAL HISTORY: Smokes about a pack a day. No drinking or drug use. FAMILY HISTORY: Father with history of lymphoma, CVA, TIA. Mother had history of CVA. ALLERGIES: No known drug allergies. MEDICATIONS: The patient is currently on: 1. Vancomycin, Pharmacy to dose. 2. Tylenol. 3. DuoNeb. 4. Norvasc. 5. Aspirin. 6. Lipitor. 7. PhosLo. 8. Aranesp. 9. Lovenox. 10.Neurontin. 11.Hydralazine. 12.NovoLog. 13.Keppra. 14.Levaquin. 15.Zestril. 16.Melatonin. 17.Solu-Medrol. 18.Lopressor. 19.Zosyn. 20.Seroquel. 21.Aldactone. EXAMINATION: Blood pressure is 173/90 with a pulse of 111, temperature 97.4. He is 98% on room air. General description is a middle-aged male lying in bed in no distress. HEENT shows slight pallor. No scleral icterus. Oral mucous membranes dry. No pharyngeal erythema or thrush. NECK: Trachea central. No thyromegaly. LUNGS: Unlabored breathing, decreased breath sounds at the bases. No wheeze or crackle. HEART: S1, S2. Regular rate and rhythm. ABDOMEN: Soft. No tenderness. No guarding or rigidity. EXTREMITIES: No edema of the feet. SKIN: No rash or masses palpable. NEUROLOGICAL: Patient is awake, alert, oriented. Mood and affect normal. LABS: Hemoglobin 6.9, white count 12.9 with a BUN of 67, creatinine 4.60. Pleural fluid, sputum and blood cultures have been negative. He did have a chest x-ray this morning which showed removal of the left basilar chest tube, possible pneumothorax versus small bilateral pleural effusion and scattered areas of atelectasis. DIAGNOSTIC IMPRESSION: Patient admitted to the hospital with difficulty in breathing in a patient who did have a pleural effusion requiring thoracentesis x2, also with pericardial effusion status post pericardial window and video-assisted thoracoscopic surgery bypass procedure. The patient did not have any high-grade fever to this admission. The only fever he had was on the 10th with a slightly elevated white count with all the cultures remaining to be negative and the patient received about 11 days of IV antibiotic therapy that should be more than enough. PLAN: 1. Will discontinue vancomycin and Zosyn, as no organism has been seen. 2. Currently on oral Levaquin. That may continue for about 5-7 more days. 3. Thank you for this consultation. Will follow this patient along with you. MMODL / IJN: [id number] /
[2018-02-04] MEDS ORDERED: METOPROLOL TARTRATE 50 MG TAB PO SCH (21:00)
--- NOTE | 2018-02-05 00:08 | DS ---
DISCHARGE SUMMARY FINAL DIAGNOSES: 1. Left-sided empyema, as well as pericardial effusion, status post decortication, VATS. 2. History of recent pneumonia of left lung with possible parapneumonic process. 3. Hypertension. 4. Tachycardia. 5. Hyperlipidemia. 6. End-stage renal disease with chronic renal failure stage V on hemodialysis. 7. History medullary sponge kidney. 8. History of left arm AV fistula. 9. History of noncompliance with hemodialysis. 10.History of the left thalamic cerebrovascular accident July 2007. 11.History of chronic anemia secondary to end-stage renal disease. 12.Spinal stenosis with history of chronic back pain and neck cervical pain. 13.History of nephrolithiasis. 14.DVT prophylaxis. DISCHARGE DISPOSITION: The patient will be discharged in stable condition with guarded prognosis. Total time 35 minutes. HISTORY OF PRESENT ILLNESS: This 47-year-old gentleman with past medical history of multiple medical problem was admitted with left-sided pleural effusion, empyema, as well as pericardial effusion. Patient underwent decortication, VATS, as well as a pericardial window. The patient was treated symptomatically. Patient improved significantly. Hemodialysis continued. Patient is extremely keen on going home. Sputum culture showed only Ana albicans. Patient will be discharged in a stable condition with guarded prognosis. DISCHARGE ADVICE AND MEDICATIONS: 1. Diet is cardiac, renal. 2. Activity limited until followup. 3. Follow up with Dr. Fraire as advised. 4. Follow up with Dr. Figueroa as recommended and Cardiovascular Surgery as recommended. MEDICATIONS: 1. Tylenol 650 q.6h p.r.n. 2. Tylenol No. 3 q.8 p.r.n. 3. Aspirin 325 mg p.o. daily. 4. Lipitor 20 mg p.o. daily. 5. PhosLo 667 t.i.d. 6. aransep 40 mcg subcu q.7d. 7. Vitamin D2 50,000 daily. 8. Neurontin 100 mg p.o. b.i.d. 9. Humalog scale. 10.DuoNeb q.i.d. and p.r.n. 11.Keppra 1000 mg b.i.d. 12.Zestril 20 mg b.i.d. 13.Melatonin 5 mg q.h.s. 14.Robaxin 750 p.o. t.i.d. 15.Habitrol 14. 16.Prednisone 10 mg p.r.n. 17.Seroquel 25 mg q.h.s. 18.Aldactone 250 mg p.o. daily. 19.Continue with Lipitor as at home dose. MMSALINAL / NATHANN: [id number] / MTDD
[2018-02-15] MEDS ORDERED: ERGOCALCIFEROL 50,000 UNIT CAP PO SCH (12:00)
== END 2018-02-04 16:50 | disposition home or self-care (01) | DRG 163 ==
LOC: EC 00:50 → 5MS5E 03:23 → 6SEL 01-31 10:07
PROVIDERS: ADMIT Hospitalist; ATTEND Hospitalist
PROC: 0W9B3ZZ Drainage of Left Pleural Cavity, Percutaneous Approach (ICD-10-PCS; 2018-01-24)
PROC: 5A1D70Z Performance of Urinary Filtration, Intermittent, Less than 6 Hours Per Day (ICD-10-PCS; 2018-01-24)
PROC: 0W9B3ZZ Drainage of Left Pleural Cavity, Percutaneous Approach (ICD-10-PCS; principal; 2018-01-29)
PROC: 02BN4ZX Excision of Pericardium, Percutaneous Endoscopic Approach, Diagnostic (ICD-10-PCS; 2018-01-31 07:30)
PROC: 0W9D4ZZ Drainage of Pericardial Cavity, Percutaneous Endoscopic Approach (ICD-10-PCS; 2018-01-31 07:30)
PROC: 0BNL4ZZ Release Left Lung, Percutaneous Endoscopic Approach (ICD-10-PCS; 2018-01-31 07:30)
DX: J86.9 Pyothorax without fistula (principal); N18.6 End stage renal disease; I12.0 Hypertensive chronic kidney disease with stage 5 chronic kidney disease or end stage renal disease; D69.6 Thrombocytopenia, unspecified; I31.3 Pericardial effusion (noninflammatory); J90 Pleural effusion, not elsewhere classified; G40.409 Other generalized epilepsy and epileptic syndromes, not intractable, without status epilepticus; D63.1 Anemia in chronic kidney disease; E78.5 Hyperlipidemia, unspecified; M89.8X9 Other specified disorders of bone, unspecified site; F10.20 Alcohol dependence, uncomplicated; F17.210 Nicotine dependence, cigarettes, uncomplicated; G89.29 Other chronic pain; M48.00 Spinal stenosis, site unspecified; Z79.82 Long term (current) use of aspirin; Z79.899 Other long term (current) drug therapy; Z82.3 Family history of stroke; Z86.73 Personal history of transient ischemic attack (TIA), and cerebral infarction without residual deficits; Z87.01 Personal history of pneumonia (recurrent); Z87.442 Personal history of urinary calculi; Z80.7 Family history of other malignant neoplasms of lymphoid, hematopoietic and related tissues; Z91.15 Patient's noncompliance with renal dialysis; Z91.19 Patient's noncompliance with other medical treatment and regimen; Z99.2 Dependence on renal dialysis
CPT/HCPCS: 36415; 71045; 71046; 71250; 76604; 80048; 80053; 80202; 82550; 82553; 82945; 83036; 83540; 83550; 83615; 83735; 83880; 84157; 84484; 85025; 85610; 85730; 86038; 86225; 86850; 86900; 86901; 86920; 87040; 87070; 87102; 87116; 87205; 87206; 87502; 88108; 88304; 88305; 89050; 90935; 93005; 93306; 94640; 94644; 94760; 96365; 96366; 96367; 99285

== ENCOUNTER 2018-02-11 18:56 | Inpatient (IN) | payer MEDICARE, BC ==
--- NOTE | 2018-02-11 20:57 | ED ---
General Adult HPI - General Source: patient, RN notes reviewed Mode of arrival: ambulatory Limitations: no limitations <Selena Richards - Last Filed: 02/11/18 21:53> <Lincoln Kelly - Last Filed: 02/11/18 22:07> - General Chief complaint: Recheck/Abnormal Lab/Rx Stated complaint: abn labs Time Seen by Provider: 02/11/18 20:42 - History of Present Illness Initial comments: 47 yo male presents to the ER with cc of needing blood transfusion. Patient is dialysis. He was found have a hemoglobin of 6.2. He denies any lightheadedness or dizziness. He states this happens from time to time he just needs a transfusion. He denies any other complaints.Patient denies any recent fever, chills, shortness of breath, chest pain, back pain, abdominal pain, nausea vomiting, numbness or tingling, dysuria or hematuria, constipation or diarrhea, headaches or visual changes, or any other current symptoms. (Selena Richards) - Related Data Home Medications Medication Instructions Recorded Confirmed Calcium Acetate [PhosLo] 667 mg PO TID-W/MEALS 11/22/16 02/11/18 Ergocalciferol (Vitamin D2) 50,000 unit PO Q30D 07/21/17 02/11/18 [Vitamin D2] Methocarbamol [Robaxin] 750 mg PO TID PRN 07/22/17 02/11/18 Sevelamer [Renvela] 1,600 mg PO AC-TID 02/11/18 02/11/18 Sodium Bicarbonate Tab 650 mg PO BID 02/11/18 02/11/18 Previous Rx's Medication Instructions Recorded Aspirin 325 mg PO DAILY #30 tab 07/27/17 Atorvastatin [Lipitor] 20 mg PO DAILY #30 tablet 07/27/17 Melatonin 5 mg PO HS tab 07/27/17 QUEtiapine [SEROquel] 25 mg PO HS #30 tab 07/27/17 amLODIPine [Norvasc] 5 mg PO BID tab 07/27/17 Gabapentin [Neurontin] 100 mg PO BID #60 cap 12/25/17 levETIRAcetam [Keppra] 1,000 mg PO Q12HR #120 tab 12/25/17 Acetaminophen Tab [Tylenol] 650 mg PO Q6HR PRN tab 02/03/18 Darbepoetin Jim [Aranesp] 40 mcg SQ Q7D syringe 02/03/18 INSULIN LISPRO (HumaLOG) [humaLOG] 0 unit SQ ACHS #1 vial 02/03/18 predniSONE 10 mg PO DIRECTED #30 tab 02/03/18 Labetalol [Trandate] 400 mg PO BID #1 tablet 02/04/18 Levofloxacin [Levaquin] 500 mg PO Q48H #5 tab 02/04/18 Lisinopril [Zestril] 20 mg PO BID #60 tab 02/04/18 Allergies Allergy/AdvReac Type Severity Reaction Status Date / Time No Known Allergies Allergy Verified 02/11/18 20:56 Review of Systems ROS Other: All systems not noted in ROS Statement are negative. <Selena Richards - Last Filed: 02/11/18 21:53> ROS Other: All systems not noted in ROS Statement are negative. <Lincoln Kelly - Last Filed: 02/11/18 22:07> ROS Statement: Those systems with pertinent positive or pertinent negative responses have been documented in the HPI. Past Medical History Past Medical History: Hypertension, Musculoskeletal Disorder, Renal Disease, Seizure Disorder Additional Past Medical History / Comment(s): End-stage renal disease on hemodialysis History of Any Multi-Drug Resistant Organisms: None Reported Past Surgical History: Orthopedic Surgery Additional Past Surgical History / Comment(s): fistula for dialysis lithotripsy kidney stents Past Anesthesia/Blood Transfusion Reactions: No Reported Reaction Past Psychological History: No Psychological Hx Reported Smoking Status: Former smoker Past Alcohol Use History: None Reported Past Drug Use History: None Reported - Past Family History Father Family Medical History: Cancer, CVA/TIA Additional Family Medical History / Comment(s): Father had lymphoma. He had a CVA Mother Family Medical History: CVA/TIA Additional Family Medical History / Comment(s): Mother had a CVA. <Selena Richards - Last Filed: 02/11/18 21:53> General Exam Limitations: no limitations General appearance: alert, in no apparent distress ENT exam: Present: normal exam, mucous membranes moist Neck exam: Present: normal inspection. Absent: tenderness, meningismus, lymphadenopathy Respiratory exam: Present: normal lung sounds bilaterally. Absent: respiratory distress, wheezes, rales, rhonchi, stridor Cardiovascular Exam: Present: regular rate, normal rhythm, normal heart sounds. Absent: systolic murmur, diastolic murmur, rubs, gallop, clicks Neurological exam: Present: alert, oriented X3 Skin exam: Present: warm, dry, intact. Absent: normal color (Pallor) <Selena Richards - Last Filed: 02/11/18 21:53> Vital Signs 02/11/18 19:12 Temperature 99.0 F Pulse Rate 81 Respiratory 20 Rate Blood Pressure 185/81 O2 Sat by Pulse 98 Oximetry Medical Decision Making - Lab Data Result diagrams: 02/11/18 20:58 02/11/18 20:58 <Selena Richards - Last Filed: 02/11/18 21:53> - Lab Data Result diagrams: 02/11/18 20:58 02/11/18 20:58 <Lincoln Kelly - Last Filed: 02/11/18 22:07> - Medical Decision Making 47-year-old male presents needing a blood transfusion. At this time hemoglobin is found to be 6.7. Patient is asymptomatic, he does have stool call positive. At this time we will admit the patient Dr. English would like to units transfused. We will consult GI as well as nephrology. Patient is in agreement with this plan and and all questions have been answered. (Selena Richards) Patient was reevaluated by myself, Dr. Kelly. Patient resting comfortably in bed. Patient updated on results and plan. Case was discussed with Dr. English who will admit with blood transfusion and consult with GI and nephrology. (Lincoln Kelly) - Lab Data Lab Results 02/11/18 02/11/18 02/11/18 Range/Units 20:58 20:58 20:58 WBC 10.1 (3.8-10.6) k/uL RBC 2.37 L (4.30-5.90) m/uL Hgb 6.7 L* (13.0-17.5) gm/dL Hct 21.3 L (39.0-53.0) % MCV 90.0 (80.0-100.0) fL MCH 28.1 (25.0-35.0) pg MCHC 31.2 (31.0-37.0) g/dL RDW 17.9 H (11.5-15.5) % Plt Count 200 D (150-450) k/uL Neutrophils % 84 % Lymphocytes % 9 % Monocytes % 5 % Eosinophils % 0 % Basophils % 0 % Neutrophils # 8.5 H (1.3-7.7) k/uL Lymphocytes # 0.9 L (1.0-4.8) k/uL Monocytes # 0.5 (0-1.0) k/uL Eosinophils # 0.0 (0-0.7) k/uL Basophils # 0.0 (0-0.2) k/uL Anisocytosis Slight Sodium 137 (137-145) mmol/L Potassium 4.1 (3.5-5.1) mmol/L Chloride 93 L (98-107) mmol/L Carbon Dioxide 34 H (22-30) mmol/L Anion Gap 10 mmol/L BUN 24 H (9-20) mg/dL Creatinine 3.50 H (0.66-1.25) mg/dL Est GFR (CKD-EPI)AfAm 22 (>60 ml/min/1.73 sqM) Est GFR (CKD-EPI)NonAf 19 (>60 ml/min/1.73 sqM) Glucose 94 (74-99) mg/dL Calcium 8.0 L (8.4-10.2) mg/dL Stool Occult Blood (Negative) Blood Type O Positive Blood Type Recheck No Antibody Screen NEGATIVE Crossmatch See Detail Spec Expiration Date 02/14/2018 - 3119 02/11/18 Range/Units 21:31 WBC (3.8-10.6) k/uL RBC (4.30-5.90) m/uL Hgb (13.0-17.5) gm/dL Hct (39.0-53.0) % MCV (80.0-100.0) fL MCH (25.0-35.0) pg MCHC (31.0-37.0) g/dL RDW (11.5-15.5) % Plt Count (150-450) k/uL Neutrophils % % Lymphocytes % % Monocytes % % Eosinophils % % Basophils % % Neutrophils # (1.3-7.7) k/uL Lymphocytes # (1.0-4.8) k/uL Monocytes # (0-1.0) k/uL Eosinophils # (0-0.7) k/uL Basophils # (0-0.2) k/uL Anisocytosis Sodium (137-145) mmol/L Potassium (3.5-5.1) mmol/L Chloride (98-107) mmol/L Carbon Dioxide (22-30) mmol/L Anion Gap mmol/L BUN (9-20) mg/dL Creatinine (0.66-1.25) mg/dL Est GFR (CKD-EPI)AfAm (>60 ml/min/1.73 sqM) Est GFR (CKD-EPI)NonAf (>60 ml/min/1.73 sqM) Glucose (74-99) mg/dL Calcium (8.4-10.2) mg/dL Stool Occult Blood Positive (Negative) Blood Type Blood Type Recheck Antibody Screen Crossmatch Spec Expiration Date Disposition Decision Date: 02/11/18 Decision Time: 21:55 <Selena Richards - Last Filed: 02/11/18 21:53> <Lincoln Kelly - Last Filed: 02/11/18 22:07> Clinical Impression: Occult blood positive stool, Anemia, Chronic renal failure Disposition: [facility] Condition: Stable Referrals: Ady Fraire MD [STAFF PHYSICIAN] - 1-2 days
[2018-02-11 21:11] LABS: Anisocytosis Slight; Basophils % (A) 0 %; Eosinophils % (A) 0 %; HCT 21.3 % (39.0-53.0); Lymphocytes # (A) 0.9 k/uL (1.0-4.8); Lymphocytes % (A) 9 %; MCH 28.1 pg (25.0-35.0); MCHC 31.2 g/dL (31.0-37.0); Mean Platelet Volume 7.6; Monocytes # (A) 0.5 k/uL (0-1.0); Monocytes % (A) 5 %; Neutrophils # (A) 8.5 k/uL (1.3-7.7); Neutrophils % (A) 84 %; RBC 2.37 m/uL (4.30-5.90); RDW 17.9 % (11.5-15.5); WBC 10.1 k/uL (3.8-10.6)
[2018-02-11 21:15] LABS: HGB 6.7 gm/dL (13.0-17.5); Platelet Count 200 k/uL (150-450)
[2018-02-11 21:16] LABS: Potassium 4.1 mmol/L (3.5-5.1)
[2018-02-11] MEDS ORDERED: NALOXONE 0.4 MG/ML 1 ML VIAL IV PRN (21:55)
[2018-02-12 07:59] LABS: Anisocytosis Slight; Basophils % (A) 0 %; Eosinophils # (A) 0.1 k/uL (0-0.7); Eosinophils % (A) 1 %; HCT 23.4 % (39.0-53.0); HGB 7.6 gm/dL (13.0-17.5); Lymphocytes # (A) 1.3 k/uL (1.0-4.8); Lymphocytes % (A) 13 %; MCH 29.1 pg (25.0-35.0); MCHC 32.6 g/dL (31.0-37.0); MCV 89.3 fL (80.0-100.0); Mean Platelet Volume 6.8; Monocytes # (A) 0.5 k/uL (0-1.0); Monocytes % (A) 5 %; Neutrophils # (A) 7.9 k/uL (1.3-7.7); Neutrophils % (A) 80 %; Platelet Count 220 k/uL (150-450); Poikilocytosis Slight; RBC 2.61 m/uL (4.30-5.90); RDW 18.1 % (11.5-15.5); WBC 9.9 k/uL (3.8-10.6)
--- NOTE | 2018-02-12 08:59 | P.CONS ---
History of Present Illness - Reason for Consult Consult date: 02/12/18 Anemia Requesting physician: Jacqueline English - History of Present Illness 47-year-old male history of chronic disease anemia end-stage renal disease hemodialysis Saturday presented yesterday after dialysis with reported low hemoglobin 6.7. Denies chest pain shortness of breath. MCV 90. Platelet 200. Patient was hospitalized 3 weeks ago for 2 weeks discharged on February 04 secondary to acute empyema pericardial effusion status post VATS/ pericardial window. Patient's discharge hemoglobin was 6.9. INR 10 days ago was 1.3. Upon review of medical records patient's hemoglobin over the last month was between 6.8-9.5 range. 6 months ago average hemoglobin was between 10 -12. Denies overt bleeding such as hematemesis hematochezia melena. No weight loss or abdominal pain. No history of peptic ulcer disease or GI bleeding. He has a history of hemorrhoids. Stool Hemoccult positive. Last colonoscopy to his memory tend to 15 years ago unremarkable. No history of EGD. Transfuse 1 unit of blood current hemoglobin is 7.6. Review of Systems Constitutional: Denies fever, chills, sweats, weight gain, or loss. HEENT: Negative for migraines, blurred vision or loss, earaches, drainage, tinnitus, oral mucosal lesions, dysphagia, or odynophagia. Cardiac: Hypertension. Negative for chest pain, arrhythmias, or palpitation. Respiratory: Negative for shortness of breath, hemoptysis, cough, or sputum production. Gastrointestinal: See HPI for pertinent findings. Genitourinary: Negative for hematuria, urgency, frequency, polyuria, dysuria, or penile discharge. Musculoskeletal: Negative for muscle aches, swelling, arthritis, and arthralgias. Neurologic: History of seizure disorder. Negative for stroke or TIA. Endocrine: Negative for thyroid problems. Nephrology end-stage renal disease hemodialysis Skin: Negative for rash or itching. Psychiatric: Negative history for depression and anxiety Past Medical History Past Medical History: Hypertension, Musculoskeletal Disorder, Renal Disease, Seizure Disorder Additional Past Medical History / Comment(s): End-stage renal disease on hemodialysis, left sided cva. History of Any Multi-Drug Resistant Organisms: None Reported Past Surgical History: Orthopedic Surgery Additional Past Surgical History / Comment(s): fistula for dialysis. lithotripsy kidney stents Past Anesthesia/Blood Transfusion Reactions: No Reported Reaction Past Psychological History: No Psychological Hx Reported Additional Psychological History / Comment(s): Pt resides with his spouse of 17 yrs. He no longer drives d/t seizures. His spouse takes him to [employer] or his sister does. He is otherwise independent. Smoking Status: Former smoker Past Alcohol Use History: None Reported Additional Past Alcohol Use History / Comment(s): Pt started smoking in 1984 and quit 3 weeks ago. Past Drug Use History: None Reported - Past Family History Father Family Medical History: Cancer, CVA/TIA Additional Family Medical History / Comment(s): Father had lymphoma. He had a CVA Mother Family Medical History: CVA/TIA Additional Family Medical History / Comment(s): Mother had a CVA. Medications and Allergies Home Medications Medication Instructions Recorded Confirmed Type Calcium Acetate [PhosLo] 667 mg PO TID-W/MEALS 11/22/16 02/11/18 History Ergocalciferol (Vitamin D2) 50,000 unit PO Q30D 07/21/17 02/11/18 History [Vitamin D2] Methocarbamol [Robaxin] 750 mg PO TID PRN 07/22/17 02/11/18 History Aspirin 325 mg PO DAILY #30 tab 07/27/17 02/11/18 Rx Atorvastatin [Lipitor] 20 mg PO DAILY #30 tablet 07/27/17 02/11/18 Rx Melatonin 5 mg PO HS tab 07/27/17 02/11/18 Rx QUEtiapine [SEROquel] 25 mg PO HS #30 tab 07/27/17 02/11/18 Rx amLODIPine [Norvasc] 5 mg PO BID tab 07/27/17 02/11/18 Rx Gabapentin [Neurontin] 100 mg PO BID #60 cap 12/25/17 02/11/18 Rx levETIRAcetam [Keppra] 1,000 mg PO Q12HR #120 tab 12/25/17 02/11/18 Rx Acetaminophen Tab [Tylenol] 650 mg PO Q6HR PRN tab 02/03/18 02/11/18 Rx Darbepoetin Jim [Aranesp] 40 mcg SQ Q7D syringe 02/03/18 02/11/18 Rx predniSONE 10 mg PO DIRECTED #30 tab 02/03/18 02/11/18 Rx Labetalol [Trandate] 400 mg PO BID #1 tablet 02/04/18 02/11/18 Rx Levofloxacin [Levaquin] 500 mg PO Q48H #5 tab 02/04/18 02/11/18 Rx Lisinopril [Zestril] 20 mg PO BID #60 tab 02/04/18 02/11/18 Rx Sevelamer [Renvela] 1,600 mg PO AC-TID 02/11/18 02/11/18 History Sodium Bicarbonate Tab 650 mg PO BID 02/11/18 02/11/18 History Allergies Allergy/AdvReac Type Severity Reaction Status Date / Time No Known Allergies Allergy Verified 02/11/18 20:56 Physical Exam Vitals: Vital Signs Temp Pulse Pulse Resp BP BP Pulse Ox 02/12/18 07:00 97.5 F L 89 16 163/94 97 02/12/18 00:42 98.3 F 02/12/18 00:33 99.0 F 89 15 146/79 97 02/11/18 23:08 97.8 F 84 16 146/78 97 02/11/18 23:07 97.8 F 84 16 146/73 97 02/11/18 22:38 98.3 F 88 16 187/73 98 02/11/18 22:28 99.3 F 88 18 136/74 98 02/11/18 22:23 98.7 F 86 15 139/74 02/11/18 22:22 98.4 F 95 18 131/73 96 02/11/18 22:14 98.4 F 88 20 123/69 97 02/11/18 19:12 99.0 F 81 20 185/81 98 Intake and Output 02/11/18 02/12/18 02/12/18 22:59 06:59 14:59 Intake Total 0 900 Balance 0 900 Intake: Oral 590 Blood Product 0 310 Rc Pheresis As-3 Unit 0 310 [id number] Other: Voiding Method Toilet # Voids 2 Weight 72.575 kg General appearance: The patient is alert, oriented, in no acute distress. HET: Head is normocephalic and atraumatic. Pupils are equal and reactive. Oropharynx is clear without lesions. Neck: Supple without lymphadenopathy. Trachea midline. Heart: S1 S2. Regular rate and rhythm. Lungs: No crackles or wheezes are heard. Abdomen: Soft, nontender, nondistended with bowel sounds. No peritoneal signs. No palpable organomegaly or masses. Extremities: Normal skin color and turgor. No cyanosis, rash, ulceration, clubbing, or edema. Radial and pedal pulses are 2/4 bilaterally. Neurological: No focal deficits. Strength and sensation are grossly intact. Results CBC & Chem 7: 02/12/18 07:29 02/11/18 20:58 Labs: Abnormal Lab Results - Last 24 Hours (Table) 02/11/18 02/11/18 02/11/18 Range/Units 20:58 20:58 20:58 RBC 2.37 L (4.30-5.90) m/uL Hgb 6.7 L* (13.0-17.5) gm/dL Hct 21.3 L (39.0-53.0) % RDW 17.9 H (11.5-15.5) % Neutrophils # 8.5 H (1.3-7.7) k/uL Lymphocytes # 0.9 L (1.0-4.8) k/uL Chloride 93 L (98-107) mmol/L Carbon Dioxide 34 H (22-30) mmol/L BUN 24 H (9-20) mg/dL Creatinine 3.50 H (0.66-1.25) mg/dL Calcium 8.0 L (8.4-10.2) mg/dL Crossmatch See Detail 02/12/18 Range/Units 07:29 RBC 2.61 L (4.30-5.90) m/uL Hgb 7.6 L (13.0-17.5) gm/dL Hct 23.4 L (39.0-53.0) % RDW 18.1 H (11.5-15.5) % Neutrophils # 7.9 H (1.3-7.7) k/uL Lymphocytes # (1.0-4.8) k/uL Chloride (98-107) mmol/L Carbon Dioxide (22-30) mmol/L BUN (9-20) mg/dL Creatinine (0.66-1.25) mg/dL Calcium (8.4-10.2) mg/dL Crossmatch Assessment and Plan (1) Anemia Narrative/Plan: 47-year-old male admitted with asymptomatic anemia possible acute blood loss with positive stool occult suspect component of underlying anemia of chronic disease. History of end-stage renal disease hemodialysis. Current Visit: Yes Status: Acute Code(s): D64.9 - ANEMIA, UNSPECIFIED SNOMED Code(s): 425821777 (2) Occult blood positive stool Current Visit: Yes Status: Acute Code(s): R19.5 - OTHER FECAL ABNORMALITIES SNOMED Code(s): 54836440 (3) End stage renal disease on dialysis Current Visit: No Status: Chronic Code(s): N18.6 - END STAGE RENAL DISEASE; Z99.2 - DEPENDENCE ON RENAL DIALYSIS SNOMED Code(s): 557172005 Plan: 1. EGD colonoscopy scheduled tomorrow. 2. Iron indices. CBC monitoring. The aircraft skin burnisher has discussed the risks, benefits and alternative therapies for the above-mentioned procedure and for both sedation/analgesia as well as necessary blood product administration, if indicated, as they pertain to this patient. The patient has indicated understanding and acceptance of the risks and procedures discussed. Thank you for this kind referral and the opportunity to participate in the care of your patient. This consultation was discussed with Dr. Crowe. The impression and plan of care have been directed as dictated.
[2018-02-12] MEDS ORDERED: DESMOPRESSIN INJ 4 MCG/ML AMP IV SCH (10:30)
[2018-02-12] MEDS ORDERED: METHOCARBAMOL 750 MG TAB PO PRN (10:46)
[2018-02-12] MEDS ORDERED: ACETAMINOPHEN TAB 325 MG TAB PO PRN (10:46)
[2018-02-12] MEDS ORDERED: LEVOFLOXACIN 500 MG TAB PO SCH (11:00)
--- NOTE | 2018-02-12 11:10 | P.NPCON ---
History of Present Illness - Reason for Consult end stage renal disease - History of Present Illness Reason for consultation: End-stage renal disease History of present illness: Patient is a 47-year-old male seen in renal consultation for end-stage renal disease. He is maintained on hemodialysis on a Saturday schedule via right upper extremity AV fistula. Patient went for hemodialysis yesterday and his hemoglobin was noted to be low at 6.2. He was subsequently sent to the hospital to get a blood transfusion. Patient denies any chest pain or shortness of breath. He denies any lightheadedness dizziness or syncopal episodes. Denies any vomiting or diarrhea. Hemodynamically stable. He really has no active complaints. Patient was recently admitted at this hospital earlier this month and was noted to have pericardial effusion and underwent a pericardial window. He is currently resting in bed. He did receive 1 unit of blood yesterday and his hemoglobin this morning is 7.6. Patient denies any melena or hematochezia. Denies any hemoptysis or hematemesis. Vital signs are stable. General: The patient appeared well nourished and normally developed. HEENT: Head exam is unremarkable. Neck is without jugular venous distension. LUNGS: Lungs are clear to auscultation and percussion. Breath sounds decreased. HEART: Rate and Rhythm are regular. First and second heart sounds normal. No murmurs, rubs or gallops. ABDOMEN: Abdominal exam reveals normal bowel sounds. Non-tender and non- distended. No evidence of peritonitis. EXTREMITITES: No clubbing, cyanosis, or edema. Past Medical History Past Medical History: Hypertension, Musculoskeletal Disorder, Renal Disease, Seizure Disorder Additional Past Medical History / Comment(s): End-stage renal disease on hemodialysis, left sided cva. History of Any Multi-Drug Resistant Organisms: None Reported Past Surgical History: Orthopedic Surgery Additional Past Surgical History / Comment(s): fistula for dialysis. lithotripsy kidney stents Past Anesthesia/Blood Transfusion Reactions: No Reported Reaction Past Psychological History: No Psychological Hx Reported Additional Psychological History / Comment(s): Pt resides with his spouse of 17 yrs. He no longer drives d/t seizures. His spouse takes him to appts or his sister does. He is otherwise independent. Smoking Status: Former smoker Past Alcohol Use History: None Reported Additional Past Alcohol Use History / Comment(s): Pt started smoking in 1984 and quit 3 weeks ago. Past Drug Use History: None Reported - Past Family History Father Family Medical History: Cancer, CVA/TIA Additional Family Medical History / Comment(s): Father had lymphoma. He had a CVA Mother Family Medical History: CVA/TIA Additional Family Medical History / Comment(s): Mother had a CVA. Medications and Allergies Home Medications Medication Instructions Recorded Confirmed Type Calcium Acetate [PhosLo] 667 mg PO TID-W/MEALS 11/22/16 02/11/18 History Ergocalciferol (Vitamin D2) 50,000 unit PO Q30D 07/21/17 02/11/18 History [Vitamin D2] Methocarbamol [Robaxin] 750 mg PO TID PRN 07/22/17 02/11/18 History Aspirin 325 mg PO DAILY #30 tab 07/27/17 02/11/18 Rx Atorvastatin [Lipitor] 20 mg PO DAILY #30 tablet 07/27/17 02/11/18 Rx Melatonin 5 mg PO HS tab 07/27/17 02/11/18 Rx QUEtiapine [SEROquel] 25 mg PO HS #30 tab 07/27/17 02/11/18 Rx amLODIPine [Norvasc] 5 mg PO BID tab 07/27/17 02/11/18 Rx Gabapentin [Neurontin] 100 mg PO BID #60 cap 12/25/17 02/11/18 Rx levETIRAcetam [Keppra] 1,000 mg PO Q12HR #120 tab 12/25/17 02/11/18 Rx Acetaminophen Tab [Tylenol] 650 mg PO Q6HR PRN tab 02/03/18 02/11/18 Rx Darbepoetin Jim [Aranesp] 40 mcg SQ Q7D syringe 02/03/18 02/11/18 Rx predniSONE 10 mg PO DIRECTED #30 tab 02/03/18 02/11/18 Rx Labetalol [Trandate] 400 mg PO BID #1 tablet 02/04/18 02/11/18 Rx Levofloxacin [Levaquin] 500 mg PO Q48H #5 tab 02/04/18 02/11/18 Rx Lisinopril [Zestril] 20 mg PO BID #60 tab 02/04/18 02/11/18 Rx Sevelamer [Renvela] 1,600 mg PO AC-TID 02/11/18 02/11/18 History Sodium Bicarbonate Tab 650 mg PO BID 02/11/18 02/11/18 History Allergies Allergy/AdvReac Type Severity Reaction Status Date / Time No Known Allergies Allergy Verified 02/11/18 20:56 Physical Exam Vitals: Vital Signs Temp Pulse Pulse Resp BP BP Pulse Ox 02/12/18 07:00 97.5 F L 89 16 163/94 97 02/12/18 00:42 98.3 F 02/12/18 00:33 99.0 F 89 15 146/79 97 02/11/18 23:08 97.8 F 84 16 146/78 97 02/11/18 23:07 97.8 F 84 16 146/73 97 02/11/18 22:38 98.3 F 88 16 187/73 98 02/11/18 22:28 99.3 F 88 18 136/74 98 02/11/18 22:23 98.7 F 86 15 139/74 02/11/18 22:22 98.4 F 95 18 131/73 96 02/11/18 22:14 98.4 F 88 20 123/69 97 02/11/18 19:12 99.0 F 81 20 185/81 98 Intake and Output 02/11/18 02/12/18 02/12/18 22:59 06:59 14:59 Intake Total 0 900 Balance 0 900 Intake: Oral 590 Blood Product 0 310 Rc Pheresis As-3 Unit 0 310 [id number] Other: Voiding Method Toilet Toilet # Voids 2 Weight 72.575 kg Results - Lab Results Most recent lab results Calcium 8.0 mg/dL (8.4-10.2) L 02/11/18 20:58 Phosphorus 4.3 mg/dL (2.5-4.5) 02/12/18 07:29 02/12/18 07:29 02/11/18 20:58 Assessment and Plan Plan: Assessment: #1. End-stage renal disease maintained on hemodialysis on a Saturday schedule via right upper extremity AV fistula. 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 #2. Acute anemia status post blood transfusion. Hemoglobin 7.6 today. No signs of active bleeding. #3. 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 #4. Hypertension with chronic kidney disease. Controlled. #5. History of seizure disorder. #6. Recent pericardial effusion status post pericardial window. Plan: Hemodialysis tomorrow with goal 2 liters ultrafiltration. I will give him 1 dose of IV DDAVP today. GI following. Scheduled for endoscopy tomorrow. Continue monitor hemoglobin and transfuse as needed. Thank you for the consultation. I will continue to follow the patient with you during his hospital stay.
[2018-02-12] MEDS: DESMOPRESSIN INJ 20 MCG in SODIUM CHLORIDE 0.9% 50 ML IVPB SCH (11:40)
[2018-02-12] MEDS: levETIRAcetam 500 MG TAB PO SCH ×2 (11:45→21:13)
[2018-02-12] MEDS: LABETALOL 200 MG TAB PO SCH ×2 (11:45→21:12)
[2018-02-12] MEDS: SEVELAMER 800 MG TAB PO SCH ×2 (11:46→17:34)
[2018-02-12] MEDS: LISINOPRIL 20 MG TAB PO SCH ×2 (11:46→21:14)
[2018-02-12] MEDS: GABAPENTIN 100 MG CAP PO SCH ×2 (11:46→21:14)
[2018-02-12] MEDS: amLODIPine 5 MG TAB PO SCH ×2 (11:47→21:14)
[2018-02-12] MEDS: predniSONE 10 MG TAB PO SCH (11:48)
[2018-02-12] MEDS: SODIUM BICARBONATE TAB 650 MG TAB PO SCH ×2 (11:48→21:13)
[2018-02-12] MEDS: CALCIUM ACETATE 667 MG CAP PO SCH ×2 (11:49→17:35)
[2018-02-12] MEDS ORDERED: PEG 3350-NA SULF,BICARB,CL/KCL 4,000 ML BOTTLE PO ONE (15:00)
--- NOTE | 2018-02-12 16:11 | P.HPIM ---
History of Present Illness H&P Date: 02/12/18 This is a 47-year-old male patient of Dr. Holguin with past medical history of end-stage renal disease on hemodialysis 3 times weekly- , hypertension, seizure disorder, left thalamus stroke, previous admission for acute hypoxic respiratory failure secondary to fluid overload from missing dialysis treatments requiring mechanical ventilation, chronic thrombocytopenia, tobacco use and dependencequit 3 weeks ago. Patient was recently hospitalized under the care of Dr. Robison February 03 through February 04 for left empyema status post VATS procedure and pericardial window. Patient states he was doing fine but gives history that he last received a blood transfusion with hemodialysis a few months ago. He normally follows with Dr. Park. His hemoglobin was down and he was coming in for reevaluation. He denies having any chest pain or shortness of breath. He denies any dark or black stools. He does state that he has had green stools after he had his procedure done on last admission. He has had increased pedal edema to the legs. He has followed up with Dr. Malone since his hospitalization and has been cleared and is doing well. Patient was found to have hemoglobin of 6.7 and has been transfused 1 unit of packed RBCs. GI has been consult it and patient is scheduled for upper and lower endoscopy for tomorrow. Patient's home medications have been resumed and patient is almost completed with Levaquin and prednisone. Review of Systems All systems: negative Constitutional: Denies anorexia, Denies chills, Denies fatigue, Denies fever, Denies poor appetite, Denies weight loss Eyes: denies blurred vision, denies pain Ears, nose, mouth and throat: Denies headache, Denies sore throat Cardiovascular: Reports leg edema, Denies chest pain, Denies decreased exercise tolerance, Denies dyspnea on exertion, Denies lightheadedness, Denies shortness of breath, Denies syncope Respiratory: Denies cough, Denies excessive sputum, Denies hemoptysis Gastrointestinal: Denies abdominal pain, Denies diarrhea, Denies nausea, Denies vomiting Musculoskeletal: Denies myalgias Integumentary: Denies pruritus, Denies rash Neurological: Denies numbness, Denies weakness Psychiatric: Denies anxiety, Denies depression Endocrine: Denies fatigue, Denies weight change Past Medical History Past Medical History: Hypertension, Musculoskeletal Disorder, Renal Disease, Seizure Disorder Additional Past Medical History / Comment(s): End-stage renal disease on hemodialysis, left sided cva. History of Any Multi-Drug Resistant Organisms: None Reported Past Surgical History: Orthopedic Surgery Additional Past Surgical History / Comment(s): fistula for dialysis. lithotripsy kidney stents, VATS procedure, pericardial window Past Anesthesia/Blood Transfusion Reactions: No Reported Reaction Past Psychological History: No Psychological Hx Reported Additional Psychological History / Comment(s): Pt resides with his spouse of 17 yrs. He no longer drives d/t seizures. His spouse takes him to Dr. Z or his sister does. He is otherwise independent. Smoking Status: Former smoker Past Alcohol Use History: None Reported Additional Past Alcohol Use History / Comment(s): Pt started smoking in 1984 at 1-1-1/2 packs per day and quit 3 weeks ago. He denies any marijuana, street drug use or alcohol use. Past Drug Use History: None Reported - Past Family History Father Family Medical History: Cancer, CVA/TIA Additional Family Medical History / Comment(s): Father had lymphoma. He had a CVA Mother Family Medical History: CVA/TIA Additional Family Medical History / Comment(s): Mother had a CVA. Medications and Allergies Home Medications Medication Instructions Recorded Confirmed Type Calcium Acetate [PhosLo] 667 mg PO TID-W/MEALS 11/22/16 02/11/18 History Ergocalciferol (Vitamin D2) 50,000 unit PO Q30D 07/21/17 02/11/18 History [Vitamin D2] Methocarbamol [Robaxin] 750 mg PO TID PRN 07/22/17 02/11/18 History Aspirin 325 mg PO DAILY #30 tab 07/27/17 02/11/18 Rx Atorvastatin [Lipitor] 20 mg PO DAILY #30 tablet 07/27/17 02/11/18 Rx Melatonin 5 mg PO HS tab 07/27/17 02/11/18 Rx QUEtiapine [SEROquel] 25 mg PO HS #30 tab 07/27/17 02/11/18 Rx amLODIPine [Norvasc] 5 mg PO BID tab 07/27/17 02/11/18 Rx Gabapentin [Neurontin] 100 mg PO BID #60 cap 12/25/17 02/11/18 Rx levETIRAcetam [Keppra] 1,000 mg PO Q12HR #120 tab 12/25/17 02/11/18 Rx Acetaminophen Tab [Tylenol] 650 mg PO Q6HR PRN tab 02/03/18 02/11/18 Rx Darbepoetin Jim [Aranesp] 40 mcg SQ Q7D syringe 02/03/18 02/11/18 Rx predniSONE 10 mg PO DIRECTED #30 tab 02/03/18 02/11/18 Rx Labetalol [Trandate] 400 mg PO BID #1 tablet 02/04/18 02/11/18 Rx Levofloxacin [Levaquin] 500 mg PO Q48H #5 tab 02/04/18 02/11/18 Rx Lisinopril [Zestril] 20 mg PO BID #60 tab 02/04/18 02/11/18 Rx Sevelamer [Renvela] 1,600 mg PO AC-TID 02/11/18 02/11/18 History Sodium Bicarbonate Tab 650 mg PO BID 02/11/18 02/11/18 History Allergies Allergy/AdvReac Type Severity Reaction Status Date / Time No Known Allergies Allergy Verified 02/11/18 20:56 Physical Exam Vitals: Vital Signs Temp Pulse Pulse Resp BP BP Pulse Ox 02/12/18 07:00 97.5 F L 89 16 163/94 97 02/12/18 00:42 98.3 F 02/12/18 00:33 99.0 F 89 15 146/79 97 02/11/18 23:08 97.8 F 84 16 146/78 97 02/11/18 23:07 97.8 F 84 16 146/73 97 02/11/18 22:38 98.3 F 88 16 187/73 98 02/11/18 22:28 99.3 F 88 18 136/74 98 02/11/18 22:23 98.7 F 86 15 139/74 02/11/18 22:22 98.4 F 95 18 131/73 96 02/11/18 22:14 98.4 F 88 20 123/69 97 02/11/18 19:12 99.0 F 81 20 185/81 98 Intake and Output 02/11/18 02/12/18 02/12/18 22:59 06:59 14:59 Intake Total 0 900 Balance 0 900 Intake: Oral 590 Blood Product 0 310 Rc Pheresis As-3 Unit 0 310 [id number] Other: Voiding Method Toilet Toilet # Voids 2 Weight 72.575 kg General appearance: average body habitus, no acute distress - EENT Eyes: PERRLA, no scleral icterus, normal appearance ENT: no thrush - Neck Neck: no lymphadenopathy, no thyromegaly Carotids: bilateral: bruit absent - Respiratory Respiratory: bilateral: CTA, diminished - Cardiovascular Heart sounds: normal: S1, S2 Abnormal Heart Sounds: systolic murmur - Gastrointestinal General gastrointestinal: no absent bowel sounds, no distended, no hepatomegaly , no hyperactive bowel sounds, normal bowel sounds, no organomegaly, no rigid, no scaphoid, soft, no splenomegaly, no tenderness, no umbilical hernia, no ventral hernia - Integumentary Integumentary: no cellulitis, no cyanotic, no jaundiced, normal - Musculoskeletal Musculoskeletal: no gait normal - Psychiatric Psychiatric: no A&O x's 3, no appropriate affect, no intact judgment & insight Results CBC & Chem 7: 02/12/18 07:29 02/11/18 20:58 Labs: Abnormal Lab Results - Last 24 Hours (Table) 02/11/18 02/11/18 02/11/18 Range/Units 20:58 20:58 20:58 RBC 2.37 L (4.30-5.90) m/uL Hgb 6.7 L* (13.0-17.5) gm/dL Hct 21.3 L (39.0-53.0) % RDW 17.9 H (11.5-15.5) % Neutrophils # 8.5 H (1.3-7.7) k/uL Lymphocytes # 0.9 L (1.0-4.8) k/uL Chloride 93 L (98-107) mmol/L Carbon Dioxide 34 H (22-30) mmol/L BUN 24 H (9-20) mg/dL Creatinine 3.50 H (0.66-1.25) mg/dL Calcium 8.0 L (8.4-10.2) mg/dL Crossmatch See Detail 02/12/18 Range/Units 07:29 RBC 2.61 L (4.30-5.90) m/uL Hgb 7.6 L (13.0-17.5) gm/dL Hct 23.4 L (39.0-53.0) % RDW 18.1 H (11.5-15.5) % Neutrophils # 7.9 H (1.3-7.7) k/uL Lymphocytes # (1.0-4.8) k/uL Chloride (98-107) mmol/L Carbon Dioxide (22-30) mmol/L BUN (9-20) mg/dL Creatinine (0.66-1.25) mg/dL Calcium (8.4-10.2) mg/dL Crossmatch Thrombosis Risk Factor Assmnt - DVT/VTE Prophylaxis DVT/VTE Prophylaxis: Pharmacologic Prophylaxis ordered - Choose All That Apply Each Factor Represents 1 point: Age 41-60 years Other Risk Factors: No Thrombosis Risk Factor Assessment Total Risk Factor Score: 1 Thrombosis Risk Factor Assessment Level: Low Risk Assessment and Plan Plan: 1. Asymptomatic anemia with possible acute blood loss anemia and positive stool for occult blood. Patient has been seen by GI with plan for EGD and colonoscopy in the morning. Iron studies ordered. 2. History of anemia of chronic disease. Patient is on Aranesp 40 g every 7 days. 3. End-stage renal disease on hemodialysis Saturday and Saturday. Consult with Dr. Park. He has ordered hemodialysis for tomorrow, DDAVP today. Continue PhosLo 667 mg 3 times daily with meals. 4. Hypertension, hypertensive cardiovascular disease. Continue Norvasc 5 mg twice daily, labetalol 400 mg twice daily, lisinopril 20 mg twice daily. 5. History of seizure disorder. Continue Keppra 1000 mg twice daily. 6. Recent hospitalization and treated for empyema status post VATS and pericardial window. Patient needs to complete 2 more doses of Levaquin and 3 more doses of prednisone. Respiratory status is stable. 7. History of left thalamus stroke. Continue aspirin 325 mg daily, Lipitor 20 mg daily. 8. History of tobacco use and dependence. Patient has been given nicotine patches on multiple previous admissions. Patient states he quit smoking 3 weeks ago. 9. Chronic thrombocytopenia. Currently stable. 10. DVT prophylaxis. KP feliciano and SCDs. 11. GI prophylaxis. Pepcid 11. CODE STATUS: Full code. Patient will be admitted to the hospital for a minimum of 3 night stay. Discharge plan: Return home Impression and plan of care have been directed as dictated by the signing physician. Doretha Brumfield nurse practitioner acting as scribe for signing physician.
[2018-02-12 17:57] LABS: Iron Saturation 58.67 (15.00-50.00)
[2018-02-12] MEDS: MELATONIN 5 MG TABLET PO SCH (21:12)
[2018-02-12] MEDS: QUEtiapine 25 MG TAB PO SCH (21:13)
[2018-02-13] MEDS ORDERED: FAMOTIDINE 20 MG TAB PO SCH (09:00)
[2018-02-13] MEDS ORDERED: LEVOFLOXACIN 500 MG TAB PO SCH (09:00)
[2018-02-13 09:02] LABS: Anisocytosis Slight; MCHC 33.8 g/dL (31.0-37.0); MCV 88.8 fL (80.0-100.0); Mean Platelet Volume 6.5; Platelet Count 139 k/uL (150-450); RBC 2.14 m/uL (4.30-5.90); RDW 18.1 % (11.5-15.5); WBC 7.6 k/uL (3.8-10.6)
[2018-02-13 09:26] LABS: HGB 6.4 gm/dL (13.0-17.5)
[2018-02-13 09:39] LABS: Calcium 7.6 mg/dL (8.4-10.2)
[2018-02-13] MEDS ORDERED: PROPOFOL 10 MG/ML 20 ML VIAL IV ONE (10:13)
[2018-02-13] MEDS ORDERED: LACTATED RINGERS 1,000 ML IV ONE (10:15)
--- NOTE | 2018-02-13 10:44 | P.PCN ---
Date of Procedure: 02/13/18 Procedure(s) Performed: Brief history: Patient is a pleasant 47-year-old white male, and hemodialysis for end-stage renal disease, admitted to hospital with severe symptomatic anemia and hemoglobin of 6.5 requiring 1 unit of blood transfusion. He was also noted to have a Hemoccult positive stool. Denies any GI bleed. He is scheduled scheduled for an elective upper endoscopy as well as colonoscopy . Procedure performed: Esophagogastroduodenoscopy with biopsy Colonoscopy with snare polypectomy Preoperative diagnosis: Severe symptomatic anemia and Hemoccult-positive stool Anesthesia: MAC Procedure: After informed consent was obtained from the patient was brought into the endoscopy unit and IV sedation was administered by anesthesia under continuous monitoring. Initially upper endoscopy was done. The Olympus GF 160 video endoscope was inserted inserted into the mouth and esophagus intubated without any difficulty and was gradually advanced into the stomach and duodenum and carefully examined. The second part of the duodenum appeared normal. The absence were done from the duodenum to rule out celiac disease. In the bulb of the duodenum there was a 1 cm linear ulcer with no active bleeding. The scope was then withdrawn into the stomach adequately insufflated with air and upon careful examination the antrum had diffuse gastritis and biopsies were done from this area. The body, cardia and fundus appeared normal. The scope was then withdrawn into the esophagus. The GE junction was located at 40 cm to the incisors. there was a short segment of Ortiz's esophagus extending 1 cm proximal to the GE junction and this was biopsied. It appeared regular with no erythema erosions or ulcerations. Rest of the esophagus appeared normal. Patient tolerated the procedure well. At this time the patient continued to remain sedation. Initial digital rectal examination was normal. Olympus CF 160 video colonoscope was then inserted into the rectum and gradually advanced to the cecum without any difficulty. Careful examination was performed as the scope was gradually being withdrawn. The prep was excellent. The cecum, ascending colon, transverse colon, appeared normal. In the transverse colon there was a 5 mm sessile polyp removed by snare polypectomy. In the descending colon there was a 5 mm and 1 cm flat polyp removed by snare polypectomy. In the sigmoid colon there was a 2 cm pancreatic polyp removed by snare polypectomy. In the proximal rectum there was a 5 mm sessile polyp removed by snare polypectomy. The rest of the descending colon, sigmoid colon and rectum appeared normal. Retroflexion was performed in the rectum and grade 2 internal hemorrhoids were noted. Patient tolerated the procedure well. Impression: 1. Upper endoscopy revealed 1 cm duodenal bulbar ulcer, antral erosive gastritis and short segment Ortiz's esophagus 2. Colonoscopy revealed: a) 5 mm transverse colon polyp status post polypectomy b) 5 mm and 1 cm flat descending colon polyp status post polypectomy c) 2 cm pedunculated sigmoid colon polyp status post polypectomy d) 5 mm proximal rectal polyp status post polypectomy Recommendations: Findings of this examination were discussed with the patient as well as his family. He was advised to follow with the biopsy results. He will continue with Protonix 40 mg daily. If the biopsy of the colon polyps should tubal adenoma, he can have a repeat colonoscopy in 3 years.
[2018-02-13] MEDS ORDERED: PANTOPRAZOLE 40 MG TABLET PO SCH (11:00)
[2018-02-13] MEDS: SEVELAMER 800 MG TAB PO SCH ×3 (11:32→17:57)
[2018-02-13] MEDS: CALCIUM ACETATE 667 MG CAP PO SCH ×3 (11:32→17:57)
[2018-02-13] MEDS: GABAPENTIN 100 MG CAP PO SCH ×2 (11:33→23:17)
[2018-02-13] MEDS: predniSONE 10 MG TAB PO SCH (11:33)
[2018-02-13] MEDS: SODIUM BICARBONATE TAB 650 MG TAB PO SCH ×2 (11:33→23:18)
[2018-02-13] MEDS: levETIRAcetam 500 MG TAB PO SCH ×2 (11:34→23:17)
--- NOTE | 2018-02-13 14:50 | P.PN ---
Subjective Progress Note Date: 02/13/18 This is a 47-year-old male patient of Dr. Holguin with past medical history of end-stage renal disease on hemodialysis 3 times weekly- , hypertension, seizure disorder, left thalamus stroke, previous admission for acute hypoxic respiratory failure secondary to fluid overload from missing dialysis treatments requiring mechanical ventilation, chronic thrombocytopenia, tobacco use and dependencequit 3 weeks ago. Patient was recently hospitalized under the care of Dr. Robison February 03 through February 04 for left empyema status post VATS procedure and pericardial window. Patient states he was doing fine but gives history that he last received a blood transfusion with hemodialysis a few months ago. He normally follows with Dr. Park. His hemoglobin was down and he was coming in for reevaluation. He denies having any chest pain or shortness of breath. He denies any dark or black stools. He does state that he has had green stools after he had his procedure done on last admission. He has had increased pedal edema to the legs. He has followed up with Dr. Malone since his hospitalization and has been cleared and is doing well. Patient was found to have hemoglobin of 6.7 and has been transfused 1 unit of packed RBCs. GI has been consult it and patient is scheduled for upper and lower endoscopy for tomorrow. Patient's home medications have been resumed and patient is almost completed with Levaquin and prednisone. 02/13: Patient underwent EGD today with biopsy and colonoscopy with snare polypectomy. Upper endoscopy revealed a 1 cm duodenal bulbar ulcer, antral erosive gastritis and short segment Ortiz's esophagus. Colonoscopy revealed a 5 mm transverse colon polyps status post polypectomy, 5 mm and 1 cm flat descending colon polyp status post polypectomy, 2 cm pedunculated sigmoid colon polyp status post polypectomy, 5 mm proximal rectal polyp status post polypectomy. Was recommended the patient continue on Protonix 40 mg daily. If : Polyp biopsies should revealed tubal adenoma, repeat colonoscopy in 3 years. Patient's hemoglobin this morning was 6.4. Patient is scheduled for transfusion of 3 units of packed RBCs. Vital signs have been stable, patient has been afebrile. Pulse ox 96% on room air. Objective - Vital Signs Vital signs: Vital Signs Temp 97.6 F 02/13/18 07:00 Pulse 78 02/13/18 07:00 Resp 18 02/13/18 07:00 BP 134/77 02/13/18 07:00 Pulse Ox 96 02/13/18 07:00 Intake & Output 02/12/18 02/13/18 02/13/18 18:59 06:59 18:59 Intake Total 500 200 Balance 500 200 Intake: Intake, IV Titration 200 Amount Desmopressin Inj 20 mcg 200 In Sodium Chloride 0.9% 50 ml @ 200 mls/hr IVPB DAILY KRISTY Rx#:[id number] Oral 500 Other: Voiding Method Toilet Toilet # Voids 1 2 # Bowel Movements 2 - Exam General appearance: average body habitus, no acute distress - EENT Eyes: PERRLA, no scleral icterus, normal appearance ENT: no thrush - Neck Neck: no lymphadenopathy, no thyromegaly Carotids: bilateral: bruit absent - Respiratory Respiratory: bilateral: CTA, diminished - Cardiovascular Heart sounds: normal: S1, S2 Abnormal Heart Sounds: systolic murmur - Gastrointestinal General gastrointestinal: no absent bowel sounds, no distended, no hepatomegaly , no hyperactive bowel sounds, normal bowel sounds, no organomegaly, no rigid, no scaphoid, soft, no splenomegaly, no tenderness, no umbilical hernia, no ventral hernia - Integumentary Integumentary: no cellulitis, no cyanotic, no jaundiced, normal - Musculoskeletal Musculoskeletal: no gait normal - Psychiatric Psychiatric: no A&O x's 3, no appropriate affect, no intact judgment & insight - Labs CBC & Chem 7: 02/13/18 08:39 02/13/18 08:39 Labs: Abnormal Lab Results - Last 24 Hours (Table) 02/12/18 Range/Units 07:29 TIBC 225 L (228-460) ug/dL Iron Saturation 58.67 H (15.00-50.00) Ferritin 1800.9 H (22.0-322.0) ng/mL Assessment and Plan Plan: 1. Asymptomatic anemia with possible acute blood loss anemia secondary to duodenal ulcer and erosive gastritis status post EGD and colonoscopy as above. Patient is to be transfused 3 units of packed RBCs. 2. History of anemia of chronic disease. Patient is on Aranesp 40 g every 7 days. 3. End-stage renal disease on hemodialysis Saturday and Saturday. Consult with Dr. Park. He has ordered hemodialysis for tomorrow, DDAVP today. Continue PhosLo 667 mg 3 times daily with meals. 4. Hypertension, hypertensive cardiovascular disease. Continue Norvasc 5 mg twice daily, labetalol 400 mg twice daily, lisinopril 20 mg twice daily. 5. History of seizure disorder. Continue Keppra 1000 mg twice daily. 6. Recent hospitalization and treated for empyema status post VATS and pericardial window. Patient needs to complete 2 more doses of Levaquin and 3 more doses of prednisone. Respiratory status is stable. 7. History of left thalamus stroke. Continue aspirin 325 mg daily, Lipitor 20 mg daily. 8. History of tobacco use and dependence. Patient has been given nicotine patches on multiple previous admissions. Patient states he quit smoking 3 weeks ago. 9. Chronic thrombocytopenia. Currently stable. 10. DVT prophylaxis. KP feliciano and SCDs. 11. GI prophylaxis. Protonix 11. CODE STATUS: Full code. Discharge plan: Return home Impression and plan of care have been directed as dictated by the signing physician. Doretha Brumfield nurse practitioner acting as scribe for signing physician.
[2018-02-13] MEDS: DESMOPRESSIN INJ 20 MCG in SODIUM CHLORIDE 0.9% 50 ML IVPB SCH (14:56)
[2018-02-13] MEDS: amLODIPine 5 MG TAB PO SCH ×2 (14:56→23:17)
[2018-02-13] MEDS: LISINOPRIL 20 MG TAB PO SCH ×2 (14:56→23:18)
[2018-02-13] MEDS: LABETALOL 200 MG TAB PO SCH ×2 (14:56→23:17)
--- NOTE | 2018-02-13 15:33 | P.DS ---
Providers Date of admission: 02/13/18 14:17 Attending physician: Jacqueline English Consults: 02/11/18 21:55 Consult Physician Routine Consulting Provider: Noy Crowe Consult Reason/Comments: occult positive Do you want consulting provider notified?: Yes Consult Physician Routine Consulting Provider: Maricarmen Figueroa Consult Reason/Comments: CKD Do you want consulting provider notified?: Yes Primary care physician: Jaylen Holguin [facility] Course: This is a 47-year-old male patient of Dr. Holguin with past medical history of end-stage renal disease on hemodialysis 3 times weekly- , , , hypertension, seizure disorder, left thalamus stroke, previous admission for acute hypoxic respiratory failure secondary to fluid overload from missing dialysis treatments requiring mechanical ventilation, chronic thrombocytopenia, tobacco use and dependencequit 3 weeks ago. Patient was recently hospitalized under the care of Dr. Robison February 03 through February 04 for left empyema status post VATS procedure and pericardial window. Patient states he was doing fine but gives history that he last received a blood transfusion with hemodialysis a few months ago. He normally follows with Dr. Park. His hemoglobin was down and he was coming in for reevaluation. He denies having any chest pain or shortness of breath. He denies any dark or black stools. He does state that he has had green stools after he had his procedure done on last admission. He has had increased pedal edema to the legs. He has followed up with Dr. Malone since his hospitalization and has been cleared and is doing well. Patient was found to have hemoglobin of 6.7 and has been transfused 1 unit of packed RBCs. GI has been consult it and patient is scheduled for upper and lower endoscopy for tomorrow. Patient's home medications have been resumed and patient is almost completed with Levaquin and prednisone. 02/13: Patient underwent EGD today with biopsy and colonoscopy with snare polypectomy. Upper endoscopy revealed a 1 cm duodenal bulbar ulcer, antral erosive gastritis and short segment Ortiz's esophagus. Colonoscopy revealed a 5 mm transverse colon polyps status post polypectomy, 5 mm and 1 cm flat descending colon polyp status post polypectomy, 2 cm pedunculated sigmoid colon polyp status post polypectomy, 5 mm proximal rectal polyp status post polypectomy. Was recommended the patient continue on Protonix 40 mg daily. If : Polyp biopsies should revealed tubal adenoma, repeat colonoscopy in 3 years. Patient's hemoglobin this morning was 6.4. Patient is scheduled for transfusion of 3 units of packed RBCs. Vital signs have been stable, patient has been afebrile. Pulse ox 96% on room air. Discharge diagnosis 1. Asymptomatic anemia with possible acute blood loss anemia secondary to duodenal ulcer and erosive gastritis status post EGD and colonoscopy 2. History of anemia of chronic disease. 3. End-stage renal disease on hemodialysis Saturday and Saturday 4. Hypertension, hypertensive cardiovascular disease. 5. History of seizure disorder. 6. History of left thalamus stroke 7. History of tobacco use and dependence. 9. Chronic thrombocytopenia Cc a copy of discharge to Dr. Holguin Patient Condition at Discharge: Stable Plan - Discharge Summary Discharge Rx Participant: No New Discharge Prescriptions: New Pantoprazole [Protonix] 40 mg PO AC-BRKFST #30 tablet. Continue Calcium Acetate [PhosLo] 667 mg PO TID-W/MEALS Ergocalciferol (Vitamin D2) [Vitamin D2] 50,000 unit PO Q30D Methocarbamol [Robaxin] 750 mg PO TID PRN PRN Reason: Moderate Pain amLODIPine [Norvasc] 5 mg PO BID tab Melatonin 5 mg PO HS tab QUEtiapine [SEROquel] 25 mg PO HS #30 tab Aspirin 325 mg PO DAILY #30 tab Atorvastatin [Lipitor] 20 mg PO DAILY #30 tablet Gabapentin [Neurontin] 100 mg PO BID #60 cap levETIRAcetam [Keppra] 1,000 mg PO Q12HR #120 tab Acetaminophen Tab [Tylenol] 650 mg PO Q6HR PRN tab PRN Reason: Fever And/ Or Pain Darbepoetin Jim [Aranesp] 40 mcg SQ Q7D syringe Lisinopril [Zestril] 20 mg PO BID #60 tab Labetalol [Trandate] 400 mg PO BID #1 tablet Sodium Bicarbonate Tab 650 mg PO BID Sevelamer [Renvela] 1,600 mg PO AC-TID Discontinued predniSONE 10 mg PO DIRECTED #30 tab Levofloxacin [Levaquin] 500 mg PO Q48H #5 tab Discharge Medication List Calcium Acetate [PhosLo] 667 mg PO TID-W/MEALS 11/22/16 [History] Ergocalciferol (Vitamin D2) [Vitamin D2] 50,000 unit PO Q30D 07/21/17 [History] Methocarbamol [Robaxin] 750 mg PO TID PRN 07/22/17 [History] Aspirin 325 mg PO DAILY #30 tab 07/27/17 [Rx] Atorvastatin [Lipitor] 20 mg PO DAILY #30 tablet 07/27/17 [Rx] Melatonin 5 mg PO HS tab 07/27/17 [Rx] QUEtiapine [SEROquel] 25 mg PO HS #30 tab 07/27/17 [Rx] amLODIPine [Norvasc] 5 mg PO BID tab 07/27/17 [Rx] Gabapentin [Neurontin] 100 mg PO BID #60 cap 12/25/17 [Rx] levETIRAcetam [Keppra] 1,000 mg PO Q12HR #120 tab 12/25/17 [Rx] Acetaminophen Tab [Tylenol] 650 mg PO Q6HR PRN tab 02/03/18 [Rx] Darbepoetin Jim [Aranesp] 40 mcg SQ Q7D syringe 02/03/18 [Rx] Labetalol [Trandate] 400 mg PO BID #1 tablet 02/04/18 [Rx] Lisinopril [Zestril] 20 mg PO BID #60 tab 02/04/18 [Rx] Sevelamer [Renvela] 1,600 mg PO AC-TID 02/11/18 [History] Sodium Bicarbonate Tab 650 mg PO BID 02/11/18 [History] Pantoprazole [Protonix] 40 mg PO AC-BRKFST #30 tablet. 02/13/18 [Rx] Follow up Appointment(s)/Referral(s): Ady Fraire MD [STAFF PHYSICIAN] - 1-2 days Noy Crowe MD [STAFF PHYSICIAN] - 1 Week Discharge Disposition: HOME SELF-CARE
[2018-02-13 22:21] VITALS: BP 167/92; PULSE 87; RESP 16; TEMP 98
[2018-02-13] MEDS: QUEtiapine 25 MG TAB PO SCH (23:18)
[2018-02-13] MEDS: MELATONIN 5 MG TABLET PO SCH (23:18)
--- NOTE | 2018-02-26 14:23 | CDI ---
Last Revision, October 2017 Documentation Clarification Form Date: 02/26/18 From: Maddy Pastrana Phone: If you have a question regarding this query, please contact Dariana Charles at [phone]. Admit Date: 02/13/2018 2:17:00 PM Patient Name: Jose Eng Visit Number: [id number] Discharge Date: 02/14/18 ATTENTION: The Clinical Documentation Specialists (CDI) and [facility] Coding Staff appreciate your assistance in clarifying documentation. Please respond to the clarification below the line at the bottom and electronically sign. The CDI & [facility] Coding staff will review the response and follow-up if needed. Please note: Queries are made part of the Legal Health Record. If you have any questions, please contact the author of this message via ITS. Dr. Ariel Britt Colon polyp is documented in the procedure note, your 02/13 progress note and in the discharge summary. Patient history: Patient has end stage renal disease, hypertensive hear disease , anemia of CKD. Clinical Indicators: Positive stool occult blood Procedure findings: Polyps of the transverse colon, descending colon, sigmoid colon and proximal rectum. Treatment: Snare polypectomy Surgical Pathology Diagnosis: Tubular adenoma of the transverse, descending and sigmoid colon. Rectal mucosa shows benign mucosa fold with mild distortion of artifact, no hyperplastic or adenomatous glandular changes identified. In your professional opinion, can you please clarify the type of polyps that were removed? Adenomatous Benign, neoplastic Hyperplastic Inflammatory Villous adenoma Other, please specify Unable to determine Adenomatous . MTDD
--- NOTE | 2018-02-26 14:34 | CDI ---
Last Revision, October 2017 Documentation Clarification Form Date: 02/26/18 From: Maddy Pastrana Phone: If you have a question regarding this query, please contact Dariana Charles at [phone] between 8am and 5pm Admit Date: 02/13/2018 2:17:00 PM Patient Name: Jose Eng Visit Number: [id number] Discharge Date: 02/14 ATTENTION: The Clinical Documentation Specialists (CDI) and [facility] Coding Staff appreciate your assistance in clarifying documentation. Please respond to the clarification below the line at the bottom and electronically sign. The CDI & [facility] Coding staff will review the response and follow-up if needed. Please note: Queries are made part of the Legal Health Record. If you have any questions, please contact the author of this message via ITS. Dr. Ariel Britt Antral erosive gastritis is documented in the procedure note, discharge summary and Doretha Brumfield's progress note on 02/13 Patient history/risk factors Patient has end stage renal disease, hypertensive hear disease, anemia of CKD Clinical Indicators: GI bleed, anemia EGD findings: antral erosive gastritis Treatment: Protonix 40 mg daily. In your professional opinion, can you please clarify the acuity of the gastritis ? Acute Chronic Other, please specify Unable to determine Acute MTDD
--- NOTE | 2018-02-26 14:45 | CDI ---
Last Revision, October 2017 Documentation Clarification Form Date: 02/26/18 From: Maddy Pastrana Phone: If you have a question regarding this query, please contact Dariana Charles at [phone] between 8am and 5pm Admit Date: 02/13/2018 2:17:00 PM Patient Name: Jose Eng Visit Number: [id number] Discharge Date: 02/14/18 ATTENTION: The Clinical Documentation Specialists (CDI) and [facility] Coding Staff appreciate your assistance in clarifying documentation. Please respond to the clarification below the line at the bottom and electronically sign. The CDI & [facility] Coding staff will review the response and follow-up if needed. Please note: Queries are made part of the Legal Health Record. If you have any questions, please contact the author of this message via ITS. Dr. Ariel Britt 1 cm duodenal ulcer is documented in the procedure note, discharge summary and Doretha Brumfield's 02/13 progress note. Patient history/risk factors: has end stage renal disease, hypertensive hear disease, anemia of CKD Clinical Indicators: GI bleed, occult blood positive stool and anemia. Pathology findings: Duodenal mucosa: mild non-specific chronic duodenitis, no epithelial lymphocytosis, villous atrophy or other sprue-like changes identified Treatment: Protonix 40 mg daily In your professional opinion, can you please clarify the acuity of the duodenal ulcer? Acute Chronic Other, please specify Unable to determine Acute MTDD
== END 2018-02-14 00:05 | disposition home or self-care (01) | DRG 377 ==
LOC: SUPCPDRO 18:56 → EC 18:56 → 5MS5E 22:04 → OBSVTOIN 02-13 14:14 → INTOOBSV 02-13 14:14 → OBSVTOIN 02-13 14:17
PROVIDERS: ADMIT Family Medicine; ATTEND Family Medicine
PROC: 30230N1 Transfusion of Nonautologous Red Blood Cells into Peripheral Vein, Open Approach (ICD-10-PCS; 2018-02-11)
PROC: 0DBL8ZX Excision of Transverse Colon, Via Natural or Artificial Opening Endoscopic, Diagnostic (ICD-10-PCS; 2018-02-13)
PROC: 0DBN8ZX Excision of Sigmoid Colon, Via Natural or Artificial Opening Endoscopic, Diagnostic (ICD-10-PCS; 2018-02-13)
PROC: 0DBP8ZX Excision of Rectum, Via Natural or Artificial Opening Endoscopic, Diagnostic (ICD-10-PCS; 2018-02-13)
PROC: 5A1D70Z Performance of Urinary Filtration, Intermittent, Less than 6 Hours Per Day (ICD-10-PCS; 2018-02-13)
PROC: 0DB38ZX Excision of Lower Esophagus, Via Natural or Artificial Opening Endoscopic, Diagnostic (ICD-10-PCS; 2018-02-13)
PROC: 0DB68ZX Excision of Stomach, Via Natural or Artificial Opening Endoscopic, Diagnostic (ICD-10-PCS; principal; 2018-02-13 13:10)
PROC: 0DBM8ZX Excision of Descending Colon, Via Natural or Artificial Opening Endoscopic, Diagnostic (ICD-10-PCS; 2018-02-13 13:10)
DX: K26.0 Acute duodenal ulcer with hemorrhage (principal); N18.6 End stage renal disease; I13.11 Hypertensive heart and chronic kidney disease without heart failure, with stage 5 chronic kidney disease, or end stage renal disease; D62 Acute posthemorrhagic anemia; K29.01 Acute gastritis with bleeding; D69.6 Thrombocytopenia, unspecified; D12.3 Benign neoplasm of transverse colon; D12.4 Benign neoplasm of descending colon; D12.5 Benign neoplasm of sigmoid colon; D12.8 Benign neoplasm of rectum; D63.1 Anemia in chronic kidney disease; E83.89 Other disorders of mineral metabolism; G40.909 Epilepsy, unspecified, not intractable, without status epilepticus; K22.70 Barrett's esophagus without dysplasia; K64.1 Second degree hemorrhoids; Z79.82 Long term (current) use of aspirin; Z79.899 Other long term (current) drug therapy; Z79.4 Long term (current) use of insulin; Z79.52 Long term (current) use of systemic steroids; Z99.2 Dependence on renal dialysis; Z87.891 Personal history of nicotine dependence; Z86.73 Personal history of transient ischemic attack (TIA), and cerebral infarction without residual deficits; Z82.3 Family history of stroke; Z80.7 Family history of other malignant neoplasms of lymphoid, hematopoietic and related tissues
CPT/HCPCS: 36415; 43239; 45385; 80048; 82272; 82728; 83540; 83550; 84100; 85025; 85027; 86850; 86900; 86901; 86920; 88305; 90935; 99284

== ENCOUNTER 2018-02-22 14:24 | Inpatient (IN) | payer MEDICARE, BC ==
[2018-02-22 15:29] LABS: Anisocytosis Slight; Basophils % (A) 0 %; Eosinophils # (A) 0.1 k/uL (0-0.7); Eosinophils % (A) 2 %; Lymphocytes % (A) 16 %; MCV 84.9 fL (80.0-100.0); Mean Platelet Volume 7.5; Monocytes # (A) 0.3 k/uL (0-1.0); Monocytes % (A) 5 %; Neutrophils # (A) 4.4 k/uL (1.3-7.7); Neutrophils % (A) 74 %; RBC 1.77 m/uL (4.30-5.90); RDW 17.6 % (11.5-15.5); WBC 5.9 k/uL (3.8-10.6)
[2018-02-22 15:36] LABS: HGB 4.9 gm/dL (13.0-17.5)
[2018-02-22] MEDS ORDERED: PANTOPRAZOLE 40 MG/10 ML VIAL IVP STA (15:39)
[2018-02-22 15:41] LABS: Albumin 2.4 g/dL (3.5-5.0); Calcium 7.6 mg/dL (8.4-10.2); Potassium 5.2 mmol/L (3.5-5.1); Total Bilirubin 0.4 mg/dL (0.2-1.3); Total Protein 4.3 g/dL (6.3-8.2)
[2018-02-22 15:53] LABS: Ovalocytes Present; Platelet Count 83 k/uL (150-450)
[2018-02-22] MEDS ORDERED: NALOXONE 0.4 MG/ML 1 ML VIAL IV PRN (16:06)
--- NOTE | 2018-02-22 16:15 | ED ---
General Adult HPI - General Chief complaint: Recheck/Abnormal Lab/Rx Stated complaint: Anemia Time Seen by Provider: 02/22/18 14:37 Source: patient, EMS, RN notes reviewed, old records reviewed Mode of arrival: EMS Limitations: no limitations - History of Present Illness Initial comments: 47-year-old male with history of end-stage renal disease on hemodialysis presents with low hemoglobin. Patient went to his normal scheduled hemodialysis today laboratory studies were obtained, it was noted that the patient had a hemoglobin of 4.4. He was sent to [facility] where he was evaluated and transferred to this institution for further evaluation treatment. Patient has been dealing with anemia over the past several weeks. He has been evaluated by gastroenterology and has had both upper and lower endoscopy. According to the patient has an ulcer noted on his upper endoscopy. He states he has had some rectal bleeding. Denies melena. Patient received 1 unit of packed RBCs prior to transfer. - Related Data Home Medications Medication Instructions Recorded Confirmed Calcium Acetate [PhosLo] 667 mg PO TID-W/MEALS 11/22/16 02/22/18 Ergocalciferol (Vitamin D2) 50,000 unit PO Q30D 07/21/17 02/22/18 [Vitamin D2] Methocarbamol [Robaxin] 750 mg PO TID PRN 07/22/17 02/22/18 Sevelamer [Renvela] 1,600 mg PO AC-TID 02/11/18 02/22/18 Sodium Bicarbonate Tab 650 mg PO BID 02/11/18 02/22/18 Previous Rx's Medication Instructions Recorded Aspirin 325 mg PO DAILY #30 tab 07/27/17 Atorvastatin [Lipitor] 20 mg PO DAILY #30 tablet 07/27/17 Melatonin 5 mg PO HS tab 07/27/17 QUEtiapine [SEROquel] 25 mg PO HS #30 tab 07/27/17 amLODIPine [Norvasc] 5 mg PO BID tab 07/27/17 Gabapentin [Neurontin] 100 mg PO BID #60 cap 12/25/17 levETIRAcetam [Keppra] 1,000 mg PO Q12HR #120 tab 12/25/17 Acetaminophen Tab [Tylenol] 650 mg PO Q6HR PRN tab 02/03/18 Darbepoetin Jim [Aranesp] 40 mcg SQ Q7D syringe 02/03/18 Labetalol [Trandate] 400 mg PO BID #1 tablet 02/04/18 Lisinopril [Zestril] 20 mg PO BID #60 tab 02/04/18 Pantoprazole [Protonix] 40 mg PO AC-BRKFST #30 tablet. 02/13/18 Allergies Allergy/AdvReac Type Severity Reaction Status Date / Time No Known Allergies Allergy Verified 02/22/18 15:04 Review of Systems ROS Statement: Those systems with pertinent positive or pertinent negative responses have been documented in the HPI. ROS Other: All systems not noted in ROS Statement are negative. Past Medical History Past Medical History: Blood Disorder, Hypertension, Musculoskeletal Disorder, Renal Disease, Seizure Disorder Additional Past Medical History / Comment(s): End-stage renal disease on hemodialysis, left sided cva. Anemia History of Any Multi-Drug Resistant Organisms: None Reported Past Surgical History: Orthopedic Surgery Additional Past Surgical History / Comment(s): fistula for dialysis. lithotripsy kidney stents, VATS procedure, pericardial window Past Anesthesia/Blood Transfusion Reactions: No Reported Reaction Past Psychological History: No Psychological Hx Reported Smoking Status: Current every day smoker Past Alcohol Use History: None Reported Past Drug Use History: None Reported - Past Family History Father Family Medical History: Cancer, CVA/TIA Additional Family Medical History / Comment(s): Father had lymphoma. He had a CVA Mother Family Medical History: CVA/TIA Additional Family Medical History / Comment(s): Mother had a CVA. General Exam Limitations: no limitations General appearance: alert, in no apparent distress Head exam: Present: atraumatic, normocephalic Eye exam: Present: normal appearance, PERRL, EOMI ENT exam: Present: normal exam Neck exam: Present: normal inspection. Absent: tenderness, meningismus Respiratory exam: Present: normal lung sounds bilaterally. Absent: respiratory distress, wheezes Cardiovascular Exam: Present: regular rate, normal rhythm GI/Abdominal exam: Present: soft. Absent: distended, tenderness, guarding Rectal exam: Present: other (No active bleeding, no melena, no stool in the rectal vault for occult testing). Absent: black stool, bloody stool Extremities exam: Present: normal inspection, full ROM. Absent: tenderness Neurological exam: Present: alert, oriented X3, CN II-XII intact. Absent: motor sensory deficit Psychiatric exam: Present: normal affect, normal mood Skin exam: Present: warm, dry, intact. Absent: cyanosis, diaphoretic Course Vital Signs 02/22/18 14:30 Temperature 98.2 F Pulse Rate 86 Respiratory 18 Rate Blood Pressure 162/78 O2 Sat by Pulse 100 Oximetry Medical Decision Making - Medical Decision Making 47-year-old male presenting with anemia and history concerning for GI bleed. Patient does have end-stage renal disease, a component of his anemia is likely secondary to anemia of kidney disease. He describes rectal bleeding. No melena or active bleeding on rectal exam. Vital signs stable. Repeat testing hemoglobin reveals 4.9 after 1 unit transfusion. Electrolytes within normal limits, mild borderline high hyperkalemia at 5.2, patient does state he only received approximately 45 minutes of his hemodialysis today. He will be transfusing additional 2 units. He will be admitted for further evaluation and treatment. Gastroenterology will be placed on consult. CBC will be obtained at 10 PM for reevaluation after transfusion. Case discussed with Dr. Britt, who will accept admission - Lab Data Result diagrams: 02/22/18 13:01 02/22/18 13:01 Lab Results 02/22/18 02/22/18 02/22/18 Range/Units 13:01 13:01 13:01 WBC 5.9 (3.8-10.6) k/uL RBC 1.77 L (4.30-5.90) m/uL Hgb 4.9 L* D (13.0-17.5) gm/dL Hct 15.0 L* (39.0-53.0) % MCV 84.9 (80.0-100.0) fL MCH 28.0 (25.0-35.0) pg MCHC 33.0 (31.0-37.0) g/dL RDW 17.6 H (11.5-15.5) % Plt Count 83 L (150-450) k/uL Neutrophils % 74 % Lymphocytes % 16 % Monocytes % 5 % Eosinophils % 2 % Basophils % 0 % Neutrophils # 4.4 (1.3-7.7) k/uL Lymphocytes # 1.0 (1.0-4.8) k/uL Monocytes # 0.3 (0-1.0) k/uL Eosinophils # 0.1 (0-0.7) k/uL Basophils # 0.0 (0-0.2) k/uL Manual Slide Review Performed Anisocytosis Slight Ovalocytes Present Sodium 139 (137-145) mmol/L Potassium 5.2 H (3.5-5.1) mmol/L Chloride 100 (98-107) mmol/L Carbon Dioxide 32 H (22-30) mmol/L Anion Gap 7 mmol/L BUN 28 H (9-20) mg/dL Creatinine 5.62 H* (0.66-1.25) mg/dL Est GFR (CKD-EPI)AfAm 13 (>60 ml/min/1.73 sqM) Est GFR (CKD-EPI)NonAf 11 (>60 ml/min/1.73 sqM) Glucose 103 H (74-99) mg/dL Calcium 7.6 L (8.4-10.2) mg/dL Total Bilirubin 0.4 (0.2-1.3) mg/dL AST 19 (17-59) U/L ALT 22 (21-72) U/L Alkaline Phosphatase 51 (38-126) U/L Total Protein 4.3 L (6.3-8.2) g/dL Albumin 2.4 L (3.5-5.0) g/dL Blood Type O Positive Blood Type Recheck No Antibody Screen NEGATIVE Crossmatch See Detail Spec Expiration Date 02/25/2018 - 230 Critical Care Time Critical Care Time: Yes Total Critical Care Time: 35 Disposition Clinical Impression: Anemia, End stage renal disease on dialysis Disposition: ADMITTED IP TO THIS [facility] Condition: Stable Referrals: Jaylen Holguin MD [Primary Care Provider] - 1-2 days Decision to Admit Reason: Admit from EC Decision Date: 02/22/18 Decision Time: 16:15
[2018-02-22 17:55] LABS: Glucose,Whole Blood 71 mg/dL (75-99)
[2018-02-22 18:04] VITALS: BMI 26.5
[2018-02-22] MEDS: SEVELAMER 800 MG TAB PO SCH (18:52)
[2018-02-22] MEDS: CALCIUM ACETATE 667 MG CAP PO SCH (18:52)
[2018-02-22] MEDS: levETIRAcetam 500 MG TAB PO SCH (19:39)
[2018-02-22] MEDS: amLODIPine 5 MG TAB PO SCH (19:39)
[2018-02-22] MEDS: LABETALOL 200 MG TAB PO SCH (19:40)
[2018-02-22] MEDS: LISINOPRIL 20 MG TAB PO SCH (19:40)
[2018-02-22] MEDS: QUEtiapine 25 MG TAB PO SCH (19:40)
[2018-02-22] MEDS: PANTOPRAZOLE 40 MG/10 ML VIAL IVP SCH (19:40)
[2018-02-22] MEDS: SODIUM BICARBONATE TAB 650 MG TAB PO SCH (19:41)
[2018-02-22] MEDS ORDERED: ACETAMINOPHEN TAB 325 MG TAB PO PRN (21:17)
[2018-02-22] MEDS: MELATONIN 5 MG TABLET PO SCH (21:38)
[2018-02-23 00:45] LABS: INR 1.1 (<1.2); Partial Thromboplastin Time 23.7 sec (22.0-30.0); Prothrombin Time 10.7 sec (9.0-12.0)
[2018-02-23 01:39] LABS: Anisocytosis Slight; Basophils % (A) 0 %; Eosinophils # (A) 0.1 k/uL (0-0.7); Eosinophils % (A) 2 %; Lymphocytes # (A) 1.1 k/uL (1.0-4.8); Lymphocytes % (A) 19 %; MCH 27.5 pg (25.0-35.0); MCHC 32.4 g/dL (31.0-37.0); MCV 84.8 fL (80.0-100.0); Mean Platelet Volume 7.3; Monocytes # (A) 0.3 k/uL (0-1.0); Monocytes % (A) 5 %; Neutrophils # (A) 4.3 k/uL (1.3-7.7); Neutrophils % (A) 73 %; RBC 2.21 m/uL (4.30-5.90); WBC 5.9 k/uL (3.8-10.6)
[2018-02-23 01:43] LABS: HCT 18.7 % (39.0-53.0); HGB 6.1 gm/dL (13.0-17.5); Platelet Count 85 k/uL (150-450)
[2018-02-23 05:07] LABS: Anisocytosis Slight; Basophils % (A) 0 %; Eosinophils # (A) 0.1 k/uL (0-0.7); Eosinophils % (A) 2 %; Lymphocytes % (A) 16 %; MCH 28.4 pg (25.0-35.0); MCHC 33.5 g/dL (31.0-37.0); MCV 84.8 fL (80.0-100.0); Mean Platelet Volume 7.3; Monocytes # (A) 0.3 k/uL (0-1.0); Monocytes % (A) 4 %; Neutrophils # (A) 4.7 k/uL (1.3-7.7); Neutrophils % (A) 76 %; RBC 2.31 m/uL (4.30-5.90); RDW 17.2 % (11.5-15.5); WBC 6.2 k/uL (3.8-10.6)
[2018-02-23 05:37] LABS: HCT 19.6 % (39.0-53.0); HGB 6.6 gm/dL (13.0-17.5); Platelet Count 89 k/uL (150-450)
[2018-02-23 05:39] LABS: Albumin 2.3 g/dL (3.5-5.0); Calcium 7.7 mg/dL (8.4-10.2); Magnesium 1.8 mg/dL (1.6-2.3); Phosphorus 4.9 mg/dL (2.5-4.5); Total Bilirubin 0.6 mg/dL (0.2-1.3); Total Protein 4.3 g/dL (6.3-8.2)
--- NOTE | 2018-02-23 06:51 | XR ---
EXAMINATION TYPE: XR chest 1V DATE OF EXAM: 02/23/2018 HISTORY: fluid overload. REFERENCE: Previous study dated 02/07/2018. FINDINGS: Heart is enlarged. There is a platelike atelectasis in the left lung. There is a small left effusion. The overall appearance the chest is similar. IMPRESSION: NO CONVINCING INTERVAL CHANGE IN THE APPEARANCE OF THE CHEST.
[2018-02-23] MEDS: SEVELAMER 800 MG TAB PO SCH ×3 (07:21→17:34)
[2018-02-23] MEDS: CALCIUM ACETATE 667 MG CAP PO SCH ×3 (07:21→17:34)
[2018-02-23 07:34] LABS: Poikilocytosis (M) Present
--- NOTE | 2018-02-23 07:56 | US ---
EXAMINATION TYPE: US venous doppler duplex LE LT DATE OF EXAM: 02/23/2018 7:50 AM COMPARISON: NONE CLINICAL HISTORY: left leg swelling. SIDE PERFORMED: Left TECHNIQUE: The lower extremity deep venous system is examined utilizing real time linear array sonog santa with graded compression, doppler sonography and color-flow sonography. VESSELS IMAGED: External Iliac Vein (EIV) Common Femoral Vein Deep Femoral Vein Greater Saphenous Vein * Femoral Vein Popliteal Vein Small Saphenous Vein * Proximal Calf Veins (* superficial vessels) Left Leg: Negative for DVT No popliteal fossa lesion is identified. IMPRESSION: THIS EXAMINATION IS NEGATIVE FOR DVT IN THE LEFT LEG.
[2018-02-23] MEDS: levETIRAcetam 500 MG TAB PO SCH ×2 (08:14→18:50)
[2018-02-23] MEDS: SODIUM BICARBONATE TAB 650 MG TAB PO SCH ×2 (08:14→20:02)
[2018-02-23] MEDS: LABETALOL 200 MG TAB PO SCH ×2 (08:15→18:50)
[2018-02-23] MEDS: LISINOPRIL 20 MG TAB PO SCH ×2 (08:15→20:01)
[2018-02-23] MEDS: ATORVASTATIN 20 MG TAB PO SCH (08:15)
[2018-02-23] MEDS: amLODIPine 5 MG TAB PO SCH ×2 (08:15→18:50)
[2018-02-23] MEDS: PANTOPRAZOLE 40 MG/10 ML VIAL IVP SCH ×2 (09:57→20:02)
[2018-02-23] MEDS ORDERED: FUROSEMIDE 10 MG/ML 2 ML VIAL IV ONE (10:00)
--- NOTE | 2018-02-23 10:56 | P.HPIM ---
History of Present Illness H&P Date: 02/23/18 This is a 47-year-old male patient of Dr. Holguin with past medical history of end-stage renal disease on hemodialysis 3 times weekly- , hypertension, seizure disorder, left thalamus stroke, previous admission for acute hypoxic respiratory failure secondary to fluid overload from missing dialysis treatments requiring mechanical ventilation, chronic thrombocytopenia, tobacco use and dependence. Patient was recently hospitalized under the care of Dr. Robison February 03 through February 04 for left empyema status post VATS procedure and pericardial window. He was then admitted on February 13 through February 14 for asymptomatic anemia and underwent EGD with biopsy and colonoscopy with snare polypectomy. Upper endoscopy revealed a 1 cm duodenal bulbar ulcer, antral erosive gastritis and short segment Ortiz's esophagus. Colonoscopy revealed a 5 mm transverse colon polyps status post polypectomy, 5 mm and 1 cm flat descending colon polyp status post polypectomy, 2 cm pedunculated sigmoid colon polyp status post polypectomy, 5 mm proximal rectal polyp status post polypectomy. Was recommended the patient continue on Protonix 40 mg daily. Patient states that he has been taking his Protonix as prescribed every day. Last week patient was found to have a low hemoglobin and on Saturday had a blood transfusion of 2 units at [facility]. Repeat hemoglobin was then found to be 4.4 and patient was instructed to go from dialysis center to [facility]. He received 1 unit of packed RBCs and was then transferred to [facility] and was admitted to the intensive care unit. Patient denies having any blood in his stools no dark stools. He denies any chest pain, shortness of breath, lightheadedness or dizziness. His left leg was more edematous than the right and a ultrasound duplex showed no DVT. Chest x-ray shows no change. Upon presentation his hemoglobin was 4.9 and patient has been ordered for an additional 4 units of packed RBCs. After 3 units he was 6.6. Patient subsequently received the full [address] in [address] with Dr. Crowe. Patient is requesting to eat and states he is hungry. Review of Systems All systems: negative Constitutional: Denies anorexia, Denies chills, Denies fatigue, Denies fever, Denies poor appetite, Denies sweats, Denies weakness, Denies weight loss Eyes: denies blurred vision, denies pain Ears, nose, mouth and throat: Denies headache, Denies sore throat Cardiovascular: Denies chest pain, Denies decreased exercise tolerance, Denies dyspnea on exertion, Denies lightheadedness, Denies shortness of breath, Denies syncope Respiratory: Denies cough, Denies cough with sputum, Denies excessive sputum, Denies hemoptysis, Denies home oxygen, Denies wheezing Gastrointestinal: Denies abdominal pain, Denies diarrhea, Denies nausea, Denies vomiting Genitourinary: Denies dysuria Musculoskeletal: Denies myalgias Integumentary: Denies pruritus, Denies rash Neurological: Denies numbness, Denies weakness Psychiatric: Denies anxiety, Denies depression Endocrine: Denies fatigue, Denies weight change Past Medical History Past Medical History: Blood Disorder, Hypertension, Renal Disease, Seizure Disorder Additional Past Medical History / Comment(s): End-stage renal disease on hemodialysis schedule of Saturday, and Saturday, CVA no residual weakness. Anemia, recent admit for GIB with EGD and colonoscopy, last seizure 4 months ago History of Any Multi-Drug Resistant Organisms: None Reported Past Surgical History: Bladder Surgery, Orthopedic Surgery Additional Past Surgical History / Comment(s): fistula for dialysis. lithotripsy , kidney stents, VATS procedure, pericardial window, polypectomy last admit with colonoscopy, EGD Past Anesthesia/Blood Transfusion Reactions: No Reported Reaction Past Psychological History: No Psychological Hx Reported Additional Psychological History / Comment(s): Pt resides with his spouse of 17 yrs. He no longer drives d/t seizures. His spouse takes him to [place] or his sister does. He is otherwise independent. Smoking Status: Current every day smoker Past Alcohol Use History: None Reported Additional Past Alcohol Use History / Comment(s): Pt started smoking in 1984 at 1-1-1/2 packs per day and quit in January but restarte 02/20/2018. He denies any marijuana, street drug use or alcohol use. Past Drug Use History: None Reported - Past Family History Father Family Medical History: Cancer, CVA/TIA Additional Family Medical History / Comment(s): Father had lymphoma. He had a CVA Mother Family Medical History: CVA/TIA Additional Family Medical History / Comment(s): Mother had a CVA. Medications and Allergies Home Medications Medication Instructions Recorded Confirmed Type Calcium Acetate [PhosLo] 667 mg PO TID-W/MEALS 11/22/16 02/22/18 History Ergocalciferol (Vitamin D2) 50,000 unit PO Q30D 07/21/17 02/22/18 History [Vitamin D2] Methocarbamol [Robaxin] 750 mg PO TID PRN 07/22/17 02/22/18 History Aspirin 325 mg PO DAILY #30 tab 07/27/17 02/22/18 Rx Atorvastatin [Lipitor] 20 mg PO DAILY #30 tablet 07/27/17 02/22/18 Rx Melatonin 5 mg PO HS tab 07/27/17 02/22/18 Rx QUEtiapine [SEROquel] 25 mg PO HS #30 tab 07/27/17 02/22/18 Rx amLODIPine [Norvasc] 5 mg PO BID tab 07/27/17 02/22/18 Rx Gabapentin [Neurontin] 100 mg PO BID #60 cap 12/25/17 02/22/18 Rx levETIRAcetam [Keppra] 1,000 mg PO Q12HR #120 tab 12/25/17 02/22/18 Rx Acetaminophen Tab [Tylenol] 650 mg PO Q6HR PRN tab 02/03/18 02/22/18 Rx Darbepoetin Jim [Aranesp] 40 mcg SQ Q7D syringe 02/03/18 02/22/18 Rx Labetalol [Trandate] 400 mg PO BID #1 tablet 02/04/18 02/22/18 Rx Lisinopril [Zestril] 20 mg PO BID #60 tab 02/04/18 02/22/18 Rx Sevelamer [Renvela] 1,600 mg PO AC-TID 02/11/18 02/22/18 History Sodium Bicarbonate Tab 650 mg PO BID 02/11/18 02/22/18 History Pantoprazole [Protonix] 40 mg PO AC-BRKFST #30 tablet. 02/13/18 02/22/18 Rx Allergies Allergy/AdvReac Type Severity Reaction Status Date / Time No Known Allergies Allergy Verified 02/22/18 15:04 Physical Exam Vitals: Vital Signs Temp Pulse Pulse Resp BP BP Pulse Ox 02/23/18 08:00 98.5 F 89 20 171/91 97 02/23/18 07:47 97.9 F 14 171/91 97 02/23/18 07:17 98.5 F 81 14 176/96 97 02/23/18 07:07 87 14 171/91 02/23/18 07:00 81 17 171/91 96 02/23/18 06:56 98.7 F 86 13 171/91 02/23/18 06:00 75 12 164/100 95 02/23/18 05:07 87 14 163/88 02/23/18 05:00 84 14 163/100 94 L 02/23/18 04:37 85 14 163/100 02/23/18 04:27 84 13 173/106 02/23/18 04:00 79 13 148/87 94 L 02/23/18 03:00 82 12 146/89 95 02/23/18 02:00 82 12 150/87 96 02/23/18 01:00 81 13 159/89 96 02/23/18 00:00 78 12 142/85 94 L 02/22/18 23:41 77 16 127/74 95 02/22/18 23:00 79 14 118/64 97 02/22/18 22:43 98.6 F 86 14 173/106 02/22/18 22:00 79 12 119/67 97 02/22/18 21:00 86 15 147/78 100 02/22/18 20:31 86 16 177/93 02/22/18 20:01 86 16 171/92 02/22/18 20:00 97.8 F 89 16 170/100 99 02/22/18 19:51 98.7 F 83 16 170/100 02/22/18 19:01 98.7 F 83 14 172/99 99 02/22/18 19:00 86 19 170/99 99 02/22/18 18:45 87 17 162/98 99 02/22/18 18:30 88 15 168/97 100 02/22/18 18:15 88 19 162/91 98 02/22/18 18:04 98.8 F 83 14 167/94 97 02/22/18 18:00 98.8 F 89 13 167/94 97 02/22/18 17:52 86 97 02/22/18 17:39 98.0 F 84 18 168/89 97 02/22/18 17:12 97.8 F 85 18 171/89 98 02/22/18 16:42 98.8 F 88 18 164/89 97 02/22/18 16:32 98.2 F 91 18 164/87 97 02/22/18 16:23 93 18 145/76 97 02/22/18 14:30 98.2 F 86 18 162/78 100 Intake and Output 02/22/18 02/23/18 02/23/18 22:59 06:59 14:59 Intake Total 1490 310 310 Output Total 250 Balance 1240 310 310 Intake: Oral 250 Blood Product 1240 310 310 Rc As-1 Unit 310 [id number] Rc As-1 Unit 310 [id number] Rc As-1 Unit 310 [id number] Rc As-1 Unit 0 [id number] Output: Urine 250 Other: Voiding Method Urinal Urinal Urinal # Voids 0 175 Weight 72.4 kg 72.4 kg General appearance: average body habitus, no acute distress - EENT Eyes: PERRLA, no scleral icterus, normal appearance ENT: no thrush - Neck Neck: no lymphadenopathy, no thyromegaly Carotids: bilateral: bruit absent - Respiratory Respiratory: bilateral: CTA, diminished - Cardiovascular Heart sounds: normal: S1, S2 Abnormal Heart Sounds: systolic murmur - Gastrointestinal General gastrointestinal: no absent bowel sounds, no distended, no hepatomegaly , no hyperactive bowel sounds, normal bowel sounds, no organomegaly, no rigid, no scaphoid, soft, no splenomegaly, no tenderness, no umbilical hernia, no ventral hernia - Integumentary Integumentary: no cellulitis, no cyanotic, no jaundiced, normal - Musculoskeletal Musculoskeletal: no gait normal - Psychiatric Psychiatric: no A&O x's 3, no appropriate affect, no intact judgment & insight Results CBC & Chem 7: 02/23/18 04:32 02/23/18 04:32 Labs: Abnormal Lab Results - Last 24 Hours (Table) 02/22/18 02/22/18 02/22/18 Range/Units 13:01 13:01 13:01 RBC 1.77 L (4.30-5.90) m/uL Hgb 4.9 L* D (13.0-17.5) gm/dL Hct 15.0 L* (39.0-53.0) % RDW 17.6 H (11.5-15.5) % Plt Count 83 L (150-450) k/uL Potassium 5.2 H (3.5-5.1) mmol/L Carbon Dioxide 32 H (22-30) mmol/L BUN 28 H (9-20) mg/dL Creatinine 5.62 H* (0.66-1.25) mg/dL Glucose 103 H (74-99) mg/dL POC Glucose (mg/dL) (75-99) mg/dL Calcium 7.6 L (8.4-10.2) mg/dL Phosphorus (2.5-4.5) mg/dL AST (17-59) U/L Total Protein 4.3 L (6.3-8.2) g/dL Albumin 2.4 L (3.5-5.0) g/dL Crossmatch See Detail 02/22/18 02/23/18 02/23/18 Range/Units 17:53 00:03 00:03 RBC 2.21 L (4.30-5.90) m/uL Hgb 6.1 L* (13.0-17.5) gm/dL Hct 18.7 L* (39.0-53.0) % RDW 17.0 H (11.5-15.5) % Plt Count 85 L (150-450) k/uL Potassium 5.8 H (3.5-5.1) mmol/L Carbon Dioxide (22-30) mmol/L BUN (9-20) mg/dL Creatinine (0.66-1.25) mg/dL Glucose (74-99) mg/dL POC Glucose (mg/dL) 71 L (75-99) mg/dL Calcium (8.4-10.2) mg/dL Phosphorus (2.5-4.5) mg/dL AST (17-59) U/L Total Protein (6.3-8.2) g/dL Albumin (3.5-5.0) g/dL Crossmatch 02/23/18 02/23/18 Range/Units 04:32 04:32 RBC 2.31 L (4.30-5.90) m/uL Hgb 6.6 L* (13.0-17.5) gm/dL Hct 19.6 L* (39.0-53.0) % RDW 17.2 H (11.5-15.5) % Plt Count 89 L (150-450) k/uL Potassium 6.0 H (3.5-5.1) mmol/L Carbon Dioxide 32 H (22-30) mmol/L BUN 31 H (9-20) mg/dL Creatinine 6.77 H* (0.66-1.25) mg/dL Glucose (74-99) mg/dL POC Glucose (mg/dL) (75-99) mg/dL Calcium 7.7 L (8.4-10.2) mg/dL Phosphorus 4.9 H (2.5-4.5) mg/dL AST 16 L (17-59) U/L Total Protein 4.3 L (6.3-8.2) g/dL Albumin 2.3 L (3.5-5.0) g/dL Crossmatch Thrombosis Risk Factor Assmnt - DVT/VTE Prophylaxis DVT/VTE Prophylaxis: Mechanical Prophylaxis ordered - Choose All That Apply Each Factor Represents 1 point: Age 41-60 years, Obesity (BMI >25), Swollen legs (current) Thrombosis Risk Factor Assessment Total Risk Factor Score: 3 Thrombosis Risk Factor Assessment Level: Moderate Risk Assessment and Plan Plan: 1. Asymptomatic anemia with possible acute blood loss anemia status post transfusion of total 5 units packed RBCs. Status post recent EGD and colonoscopy that found A1c in [place] or duodenal bulbar ulcer and patient has been continued on Protonix once daily. We'll plan to increase to twice daily. 2. History of anemia of chronic disease. Patient is on Aranesp 40 g every 7 days. 3. End-stage renal disease on hemodialysis Saturday and Saturday. Consult with Dr. Figueroa. Hemodialysis for tomorrow. Continue sodium bicarb, PhosLo. 4. Hypertension, hypertensive cardiovascular disease. Continue Norvasc 5 mg twice daily, labetalol 400 mg twice daily, lisinopril 20 mg twice daily. 5. History of seizure disorder. Continue Keppra 1000 mg twice daily. 6. Recent hospitalization and treated for empyema status post VATS and pericardial window. Respiratory status is stable. 7. History of left thalamus stroke. Continue Lipitor 20 mg daily. Aspirin is on hold. 8. History of tobacco use and dependence. Nicotine patche. Patient recently quit smoking but resumed on February 20. 9. Chronic thrombocytopenia. Currently stable. 10. DVT prophylaxis. KP hose and SCDs. 11. GI prophylaxis. Pepcid 11. CODE STATUS: Full code. Patient will be admitted to the hospital for a minimum of 2 night stay. Discharge plan: Return home Impression and plan of care have been directed as dictated by the signing physician. Doretha Brumfield nurse practitioner acting as scribe for signing physician.
[2018-02-23 12:52] LABS: Anisocytosis Slight; HCT 23.5 % (39.0-53.0); HGB 8.1 gm/dL (13.0-17.5); MCH 29.1 pg (25.0-35.0); MCHC 34.4 g/dL (31.0-37.0); MCV 84.7 fL (80.0-100.0); Mean Platelet Volume 7.4; RBC 2.78 m/uL (4.30-5.90); RDW 16.2 % (11.5-15.5); WBC 6.9 k/uL (3.8-10.6)
[2018-02-23 12:55] LABS: Platelet Count 91 k/uL (150-450)
--- NOTE | 2018-02-23 13:34 | P.CNPUL ---
History of Present Illness Consult date: 02/23/18 Requesting physician: Ariel Britt Reason for consult: other (profound anemia and possible GI bleeding) Chief complaint: anemia and low blood count History of present illness: this is a 47-year-old white male with history of end-stage renal disease, on hemodialysis, history of hypertension, seizure disorder, recent admission were and we saw the patient for a complicated parapneumonic pleural effusion requiring thoracoscopy and decortication. Patient was eventually discharged home, and at that time the patient was also found to have a pericardial effusion requiring a pericardial window. On February 13, patient was admitted with asymptomatic anemia, EGD and colonoscopy were done, he was found to have 1 cm duodenal bulbar ulcer, erosive gastritis, Ortiz's esophagus, and multiple polyps were removed underwent snare polypectomy of 5 polyps. Patient was treated with Protonix, and he has been compliant. Yesterday while he was having hemodialysis, patient was noted to be pale, his hemoglobin was noted to be 4.4, hence the patient was sent to the ER at [facility], and 2 units of packed RBCs were given. Arrangements were made to transfer the patient to [facility], and since admission the patient received4 units of packed RBCs so far.patient is yet to be seen by gastroenterology on consultation , he has been describing intermittent episodes of bright red blood per rectum. And at times bloody bowel movements. Patient is presently in the ICU, he is hemodynamically stable, relatively asymptomatic at this point to during my evaluation.his hemoglobin at present is 8.1, hemoglobin on admission was 4.9, but patient did receive a total of 4 units ER and 1 or 2 units in [place] ER.presently, denies any headaches, no blurred vision, no dizziness. No chest pain, no shortness of breath no cough no wheezing no nausea no vomiting no abdominal pain he does have symptoms of bloody bowel movements. Review of Systems 14 point review of systems were obtained, please refer to pertinent positives as noted in HPI otherwise remaining systems are negative. Past Medical History Past Medical History: Blood Disorder, Hypertension, Renal Disease, Seizure Disorder Additional Past Medical History / Comment(s): End-stage renal disease on hemodialysis schedule of Saturday, and Saturday, CVA no residual weakness. Anemia, recent admit for GIB with EGD and colonoscopy, last seizure 4 months ago History of Any Multi-Drug Resistant Organisms: None Reported Past Surgical History: Bladder Surgery, Orthopedic Surgery Additional Past Surgical History / Comment(s): fistula for dialysis. lithotripsy , kidney stents, VATS procedure, pericardial window, polypectomy last admit with colonoscopy, EGD Past Anesthesia/Blood Transfusion Reactions: No Reported Reaction Past Psychological History: No Psychological Hx Reported Additional Psychological History / Comment(s): Pt resides with his spouse of 17 yrs. He no longer drives d/t seizures. His spouse takes him to [employer] or his sister does. He is otherwise independent. Smoking Status: Current every day smoker Past Alcohol Use History: None Reported Additional Past Alcohol Use History / Comment(s): Pt started smoking in 1984 at 1-1-1/2 packs per day and quit in January but restarte 02/20/2018. He denies any marijuana, street drug use or alcohol use. Past Drug Use History: None Reported - Past Family History Father Family Medical History: Cancer, CVA/TIA Additional Family Medical History / Comment(s): Father had lymphoma. He had a CVA Mother Family Medical History: CVA/TIA Additional Family Medical History / Comment(s): Mother had a CVA. Medications and Allergies Home Medications Medication Instructions Recorded Confirmed Type Calcium Acetate [PhosLo] 667 mg PO TID-W/MEALS 11/22/16 02/22/18 History Ergocalciferol (Vitamin D2) 50,000 unit PO Q30D 07/21/17 02/22/18 History [Vitamin D2] Methocarbamol [Robaxin] 750 mg PO TID PRN 07/22/17 02/22/18 History Aspirin 325 mg PO DAILY #30 tab 07/27/17 02/22/18 Rx Atorvastatin [Lipitor] 20 mg PO DAILY #30 tablet 07/27/17 02/22/18 Rx Melatonin 5 mg PO HS tab 07/27/17 02/22/18 Rx QUEtiapine [SEROquel] 25 mg PO HS #30 tab 07/27/17 02/22/18 Rx amLODIPine [Norvasc] 5 mg PO BID tab 07/27/17 02/22/18 Rx Gabapentin [Neurontin] 100 mg PO BID #60 cap 12/25/17 02/22/18 Rx levETIRAcetam [Keppra] 1,000 mg PO Q12HR #120 tab 12/25/17 02/22/18 Rx Acetaminophen Tab [Tylenol] 650 mg PO Q6HR PRN tab 02/03/18 02/22/18 Rx Darbepoetin Jim [Aranesp] 40 mcg SQ Q7D syringe 02/03/18 02/22/18 Rx Labetalol [Trandate] 400 mg PO BID #1 tablet 02/04/18 02/22/18 Rx Lisinopril [Zestril] 20 mg PO BID #60 tab 02/04/18 02/22/18 Rx Sevelamer [Renvela] 1,600 mg PO AC-TID 02/11/18 02/22/18 History Sodium Bicarbonate Tab 650 mg PO BID 02/11/18 02/22/18 History Pantoprazole [Protonix] 40 mg PO AC-BID #60 tablet. 02/23/18 Rx Allergies Allergy/AdvReac Type Severity Reaction Status Date / Time No Known Allergies Allergy Verified 02/22/18 15:04 Physical Exam Vitals: Vital Signs Temp Pulse Pulse Resp BP BP Pulse Ox 02/23/18 12:00 98.5 F 85 14 150/89 97 02/23/18 11:00 87 18 166/95 95 02/23/18 10:00 79 17 145/90 97 02/23/18 09:56 98.1 F 75 14 145/90 97 02/23/18 09:00 80 15 156/91 96 02/23/18 08:00 98.5 F 89 20 171/91 97 02/23/18 07:47 97.9 F 14 171/91 97 02/23/18 07:17 98.5 F 81 14 176/96 97 02/23/18 07:07 87 14 171/91 02/23/18 07:00 81 17 171/91 96 02/23/18 06:56 98.7 F 86 13 171/91 02/23/18 06:00 75 12 164/100 95 02/23/18 05:07 87 14 163/88 02/23/18 05:00 84 14 163/100 94 L 02/23/18 04:37 85 14 163/100 02/23/18 04:27 84 13 173/106 02/23/18 04:00 79 13 148/87 94 L 02/23/18 03:00 82 12 146/89 95 02/23/18 02:00 82 12 150/87 96 02/23/18 01:00 81 13 159/89 96 02/23/18 00:00 78 12 142/85 94 L 02/22/18 23:41 77 16 127/74 95 02/22/18 23:00 79 14 118/64 97 02/22/18 22:43 98.6 F 86 14 173/106 02/22/18 22:00 79 12 119/67 97 02/22/18 21:00 86 15 147/78 100 02/22/18 20:31 86 16 177/93 02/22/18 20:01 86 16 171/92 02/22/18 20:00 97.8 F 89 16 170/100 99 02/22/18 19:51 98.7 F 83 16 170/100 02/22/18 19:01 98.7 F 83 14 172/99 99 02/22/18 19:00 86 19 170/99 99 02/22/18 18:45 87 17 162/98 99 02/22/18 18:30 88 15 168/97 100 02/22/18 18:15 88 19 162/91 98 02/22/18 18:04 98.8 F 83 14 167/94 97 02/22/18 18:00 98.8 F 89 13 167/94 97 02/22/18 17:52 86 97 02/22/18 17:39 98.0 F 84 18 168/89 97 02/22/18 17:12 97.8 F 85 18 171/89 98 02/22/18 16:42 98.8 F 88 18 164/89 97 02/22/18 16:32 98.2 F 91 18 164/87 97 02/22/18 16:23 93 18 145/76 97 02/22/18 14:30 98.2 F 86 18 162/78 100 Intake and Output 02/22/18 02/23/18 02/23/18 22:59 06:59 14:59 Intake Total 1490 310 930 Output Total 250 1 Balance 1240 310 929 Intake: Oral 250 Blood Product 1240 310 930 Rc As-1 Unit 310 [id number] Rc As-1 Unit 310 [id number] Rc As-1 Unit 310 [id number] As-1 Unit 310 [id number] Output: Urine 250 0 Urine/Stool Mix 1 Other: Voiding Method Urinal Urinal Urinal # Voids 0 175 # Bowel Movements 1 Weight 72.4 kg 72.4 kg Physical Exam: Revealed a 47-year-old white male, looks slightly pale, in no distress. Head: Atraumatic, normocephalic. Eyes, pale, PERRLA, EOMI, no icterus. HEENT:moist mucous membranes, no oral thrush noted.[Neck is supple.] [No neck masses.] [No thyromegaly.] [No JVD.] Chest: [Clear throughout, no crackles, no rhonchi, no wheezes.]slightly diminished breath sounds at the left base. Cardiac Exam: [Normal S1 and S2, no S3 gallop, 2/6 systolic murmur throughout the precordium.] Abdomen: [Soft, nontender, no megaly, no rebound, no guarding, normal bowel sounds.] Extremities: [No clubbing, no edema, no cyanosis.] Neurological Exam: [No focal neurologic deficit. psychiatric: Normal mood affect and mental status examination. Lymphatics: No lymphadenopathy.] Results - Laboratory Findings CBC and BMP: 02/23/18 12:20 02/23/18 04:32 PT/INR, D-dimer PT 10.7 sec (9.0-12.0) 02/23/18 00:03 INR 1.1 (<1.2) 02/23/18 00:03 Abnormal lab findings: Abnormal Labs 02/22/18 02/22/18 02/22/18 13:01 13:01 13:01 RBC 1.77 L Hgb 4.9 L* D Hct 15.0 L* RDW 17.6 H Plt Count 83 L Potassium 5.2 H Carbon Dioxide 32 H BUN 28 H Creatinine 5.62 H* Glucose 103 H POC Glucose (mg/dL) Calcium 7.6 L Phosphorus AST Total Protein 4.3 L Albumin 2.4 L Crossmatch See Detail 02/22/18 02/23/18 02/23/18 17:53 00:03 00:03 RBC 2.21 L Hgb 6.1 L* Hct 18.7 L* RDW 17.0 H Plt Count 85 L Potassium 5.8 H Carbon Dioxide BUN Creatinine Glucose POC Glucose (mg/dL) 71 L Calcium Phosphorus AST Total Protein Albumin Crossmatch 02/23/18 02/23/18 02/23/18 04:32 04:32 12:20 RBC 2.31 L 2.78 L Hgb 6.6 L* 8.1 L D Hct 19.6 L* 23.5 L RDW 17.2 H 16.2 H Plt Count 89 L 91 L Potassium 6.0 H Carbon Dioxide 32 H BUN 31 H Creatinine 6.77 H* Glucose POC Glucose (mg/dL) Calcium 7.7 L Phosphorus 4.9 H AST 16 L Total Protein 4.3 L Albumin 2.3 L Crossmatch - Diagnostic Findings Chest x-ray: image reviewed (no evidence of active disease, platelike atelectasis is noted in the left lung base, and post operative changes in the left lower lobe noted.) Assessment and Plan Assessment: impression: 1 acute anemia secondary to GI blood losses and some component of chronic disease/chronic renal failure. Patient is on hemodialysis. 2 history of duodenal ulcer disease, Ortiz esophagus, erosive gastritis, and recent snare polypectomies. 3 end-stage renal disease, on hemodialysis. 4 history of seizure disorder on Keppra 5 history of empyema or complicated pleural effusion requiring decortication 6 history of pericardial effusion requiring pericardial window 7 history of chronic tobacco dependence supposedly quit smoking recently. But resumed in early February. 8 history of benign essential hypertension 9 anemia of chronic disease, chronic renal failure patient remains on Aranesp 40 g weekly. Recommendation: Fully agree with the present treatment plan, patient is presently hemodynamically stable, received already 4 units of packed RBCs in our facility, GI to evaluate the patient and decide whether he will require repeat EGD or colonoscopy. Most likely not, we'll continue to observe over the next 24 hours. Continue in the meantime Protonix. And continue close monitoring in the ICU. Time with Patient: Greater than 30
--- NOTE | 2018-02-23 14:43 | CONS ---
CONSULTATION DATE OF CONSULTATION: 02/23/18 REASON FOR CONSULTATION: Severe symptomatic anemia. HISTORY OF PRESENT ILLNESS: The patient is a 47-year-old white male with history of end-stage renal disease, on hemodialysis, was just discharged from the hospital about a week ago at which time he was admitted to hospital with severe symptomatic anemia. He underwent an EGD and colonoscopy February 13 and he was noted to have a 1 cm duodenal ulcer and some gastritis and colonoscopy revealed 5 polyps, largest measuring 2 cm. All of which were removed and biopsies revealed tubular adenoma. The patient was discharged home. At the time of discharge his hemoglobin was 7 g/dL. He underwent hemodialysis on outpatient basis and apparently received 2 units of blood transfusion on Saturday. He went to the emergency room at [facility] yesterday with a hemoglobin of 4.4, and he was transferred to [facility] ICU. Since being in the hospital, he received total of 4 units of blood. He denies any abdominal pain. He reports no nausea or vomiting. No rectal bleeding or melena. In fact, he had 2 bowel movements since being in the hospital, which were brown in color. He did state that after the colonoscopy he had small amount of bright red blood per rectum for 2 days that resolved. PAST MEDICAL HISTORY: Significant for end-stage renal disease, on hemodialysis, hypertension, hyperlipidemia, chronic back pain, seizure disorder, hypercholesteremia. MEDICATIONS: At home include PhosLo, vitamin D3, Robaxin, sodium bicarbonate. PAST SURGICAL HISTORY: Fistula for dialysis, lithotripsy for kidney stones. VATS procedure and pericardial window. ALLERGIES: None. SOCIAL HISTORY: Chronic smoker. No alcohol use. FAMILY HISTORY: Father had CVA and TIA. Mother has CVA. REVIEW OF SYSTEMS: Cardiopulmonary: No chest pain, shortness of breath. Genitourinary: No dysuria or hematuria. Musculoskeletal unremarkable. Skin unremarkable. Endocrine unremarkable. Psychiatric unremarkable. Neurology unremarkable. ENT vision unremarkable. Constitutional: No recent weight loss. No fever, chills, night sweats. PHYSICAL EXAMINATION: Blood pressure is 171/91, pulse rate 89, temperature 97.9. HEENT examination unremarkable. Sclerae anicteric. Oral cavity no lesions. Neck: No jugular venous distention or lymph node enlargement. Chest was clear to auscultation. HEART: Regular rate and rhythm. Abdomen was soft, it was nontender, nondistended. Liver and spleen not palpable. Bowel sounds are positive. Extremities: No pedal edema. Skin: No rashes. Neuro: He is alert and oriented x3. No focal deficits. LAB: From yesterday hemoglobin was 4.9, this morning it is 6.6, WBC 6.2, platelets 89,000. PT/INR is within normal limits. BUN is 28, creatinine 5.62. IMPRESSION: This is a patient admitted to hospital with severe symptomatic anemia with a hemoglobin of 4.4, requiring blood transfusion. So far he has received total of 4 units and repeat CBC is pending. He denies any active GI bleeding. He did have an upper endoscopy, colonoscopy a week ago on February 13 and was noted to have a small duodenal ulcer and multiple colon polyps that were removed. Clinically no evidence of active GI bleeding. Anemia, possibly could be multifactorial in etiology, partly related to some blood loss but mostly anemia of chronic disease. RECOMMENDATIONS: 1. No need for repeat endoscopy intervention. 2. Agree with blood transfusion. 3. Repeat CBC at noon today. 4. Continue with Protonix 40 mg daily for previous peptic ulcer disease. 5. Start him on a renal diet and we will follow the patient closely during his hospital stay. MMODL / IJN: [id number] /
[2018-02-23] MEDS ORDERED: DARBEPOETIN ALFA 40 MCG/0.4 ML SYRINGE SQ SCH (15:00)
--- NOTE | 2018-02-23 15:25 | CONS ---
CONSULTATION REASON FOR CONSULT: End-stage renal disease. HISTORY OF PRESENT ILLNESS: The patient is a 43-year-old male with end-stage renal disease, on hemodialysis on Saturday, , Saturday schedule at the [facility]. Patient presented to the hospital as he was found to have a hemoglobin of 4 g/dL at the dialysis unit. He had 2 units packed RBCs 2 days previously as outpatient. The patient did admit to having had blood in his stools for about 2 days. He has had 2 bowel movements after admission and there has not been blood in it. The patient is receiving his 5th unit of packed RBCs currently. His hemoglobin was at 4.9 and this morning was 6.6 g/dL. The patient was recently scoped and he had polyps which were removed. There was no active bleeding noted in the upper GI tract. No chest pains or shortness of breath. The patient did not have his treatment yesterday. Therefore, he will be dialyzed today. PAST MEDICAL HISTORY: End-stage renal disease, nephrolithiasis, pericardial effusion with recent pericardial centesis. Pleural effusion status post thoracentesis on last admission, CVA, chronic anemia, history of seizures. Hypertension, CKD mineral bone disorder. PAST SURGICAL HISTORY: AV fistula, lithotripsy, VATS procedure, pericardial window, polypectomy with last colonoscopy. SOCIAL HISTORY: Positive for smoking. MEDICATIONS: Medications at home included PhosLo, vitamin D, Robaxin, aspirin, Lipitor, Seroquel, Norvasc, Neurontin, Keppra, Aranesp, labetalol, Zestril, Renvela, sodium bicarb and Protonix. ALLERGIES: None. PHYSICAL EXAMINATION: Patient is currently comfortable, awake. He is not in any acute distress. Alert and oriented x3. Blood pressure is 166/95, heart rate 85 per minute. He is afebrile. Examination of the heart: S1, S2. Examination lungs: Bilateral breath sounds are heard. Abdomen is soft, nontender. Examination lower extremity shows edema in his left lower extremity. 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 LAB: Shows sodium 139, potassium 6.0, chloride 100, BUN 31, serum creatinine 6.7, hemoglobin 8.1 g/dL, earlier it was 6.6. ASSESSMENT: 1. End-stage renal disease, on hemodialysis on Saturday, , Saturday schedule. We will arrange for hemodialysis today and patient will be dialyzed again on Saturday. 2. Severe anemia, possibly GI bleed. No other source of bleeding notified. However, patient has had 2 bowel movements after admission and there has not been any blood in it. The GI is on consult. Patient recently had EGD and colonoscopy. He also found to have bad short-segment of Ortiz's esophagus. 3. Hyperkalemia associated with GI bleed and recent multiple packed RBCs transfusion. Expect improvement with dialysis. 4. History of nephrolithiasis. 5. History of pericardial effusion, status post pericardial window. 6. History of seizures. PLAN: Hemodialysis today and continue to monitor hemoglobin. Maintain patient on Aranesp. Thank you for the consultation. We will continue to follow the patient with you during his hospitalization. MMODL / IJN: [id number] /
[2018-02-23] MEDS: QUEtiapine 25 MG TAB PO SCH (20:02)
[2018-02-23] MEDS: MELATONIN 5 MG TABLET PO SCH (20:02)
[2018-02-24 04:53] LABS: Magnesium 1.8 mg/dL (1.6-2.3); Potassium 4.9 mmol/L (3.5-5.1)
[2018-02-24 05:37] LABS: Anisocytosis Slight; Basophils % (A) 0 %; Eosinophils # (A) 0.1 k/uL (0-0.7); Eosinophils % (A) 2 %; HCT 24.4 % (39.0-53.0); HGB 8.1 gm/dL (13.0-17.5); Lymphocytes # (A) 0.9 k/uL (1.0-4.8); Lymphocytes % (A) 17 %; MCH 28.5 pg (25.0-35.0); MCHC 33.2 g/dL (31.0-37.0); Mean Platelet Volume 7.2; Monocytes # (A) 0.3 k/uL (0-1.0); Monocytes % (A) 5 %; Neutrophils # (A) 3.7 k/uL (1.3-7.7); Neutrophils % (A) 74 %; RBC 2.84 m/uL (4.30-5.90); RDW 16.1 % (11.5-15.5)
[2018-02-24 05:43] LABS: Platelet Count 98 k/uL (150-450)
[2018-02-24] MEDS: amLODIPine 5 MG TAB PO SCH (08:11)
[2018-02-24] MEDS: SEVELAMER 800 MG TAB PO SCH ×2 (08:11→12:06)
[2018-02-24] MEDS: CALCIUM ACETATE 667 MG CAP PO SCH ×2 (08:11→12:06)
[2018-02-24] MEDS: ATORVASTATIN 20 MG TAB PO SCH (08:11)
[2018-02-24] MEDS: SODIUM BICARBONATE TAB 650 MG TAB PO SCH (08:12)
[2018-02-24] MEDS: LISINOPRIL 20 MG TAB PO SCH (08:12)
[2018-02-24] MEDS: LABETALOL 200 MG TAB PO SCH (08:12)
[2018-02-24] MEDS: levETIRAcetam 500 MG TAB PO SCH (08:12)
[2018-02-24] MEDS: PANTOPRAZOLE 40 MG/10 ML VIAL IVP SCH (08:13)
--- NOTE | 2018-02-24 10:01 | P.PN ---
Subjective Progress Note Date: 02/24/18 Principal diagnosis: Acute anemia secondary to GI blood losses and some component of chronic disease/ chronic renal failure this is a 47-year-old white male with history of end-stage renal disease, on hemodialysis, history of hypertension, seizure disorder, recent admission were and we saw the patient for a complicated parapneumonic pleural effusion requiring thoracoscopy and decortication. Patient was eventually discharged home, and at that time the patient was also found to have a pericardial effusion requiring a pericardial window. On February 13, patient was admitted with asymptomatic anemia, EGD and colonoscopy were done, he was found to have 1 cm duodenal bulbar ulcer, erosive gastritis, Ortiz's esophagus, and multiple polyps were removed underwent snare polypectomy of 5 polyps. Patient was treated with Protonix, and he has been compliant. Yesterday while he was having hemodialysis, patient was noted to be pale, his hemoglobin was noted to be 4.4, hence the patient was sent to the ER at [facility], and 2 units of packed RBCs were given. Arrangements were made to transfer the patient to [facility], and since admission the patient received4 units of packed RBCs so far.patient is yet to be seen by gastroenterology on consultation , he has been describing intermittent episodes of bright red blood per rectum. And at times bloody bowel movements. Patient is presently in the ICU, he is hemodynamically stable, relatively asymptomatic at this point to during my evaluation.his hemoglobin at present is 8.1, hemoglobin on admission was 4.9, but patient did receive a total of 4 units ER and 1 or 2 units in [place] ER.presently, denies any headaches, no blurred vision, no dizziness. No chest pain, no shortness of breath no cough no wheezing no nausea no vomiting no abdominal pain he does have symptoms of bloody bowel movements. On 02/24/2018 patient seen in follow-up in intensive care unit. He has received a total of 5 units of packed red blood cells since admission for a hemoglobin of 4.9, which is currently at 8.1. Patient is hemodynamically stable , no further bleeding noted. Currently on room air, with O2 sat at 96%. Blood pressures are hypertensive at times with as SBP at times at 1 80 mmHg, and DBP between 80 and 100 mmHg. Afebrile, sinus rhythm on a monitor. Denies any specific complaints, denies any abdominal pain, denies any dyspnea or chest pain. Lung sounds are clear to auscultation, no rhonchi, no wheezes or rales noted. Chest x-ray from 02/23/2018 was reviewed and showed platelike atelectasis in the left lung and a small left pleural effusion. White count is within normal limits, at 5.0, sodium is 141, potassium is 4.9, BUN is 20, creatinine is 5.0. No acute events overnight, from pulmonary/critical care standpoint patient is stable for transfer out of intensive care to a regular medical surgical floor. Objective - Vital Signs Vital signs: Vital Signs Temp 98 F 02/24/18 08:00 Pulse 85 02/24/18 09:00 Resp 11 L 02/24/18 09:00 BP 146/83 02/24/18 09:00 Pulse Ox 96 02/24/18 07:00 Intake & Output 02/23/18 02/24/18 02/24/18 18:59 06:59 18:59 Intake Total 1630 200 Output Total 2676 175 0 Balance -1046 25 0 Weight 72.1 kg Intake: Oral 700 200 Blood Product 930 Rc As-1 Unit 310 [id number] Output: Urine 175 175 0 Urine/Stool Mix 1 Other 2500 Other: Voiding Method Urinal Urinal # Bowel Movements 1 - Exam Physical Exam: Revealed a 47-year-old white male, looks slightly pale, in no distress. Head: Atraumatic, normocephalic. Eyes, pale, PERRLA, EOMI, no icterus. HEENT:moist mucous membranes, no oral thrush noted.[Neck is supple.] [No neck masses.] [No thyromegaly.] [No JVD.] Chest: [Clear throughout, no crackles, no rhonchi, no wheezes.]slightly diminished breath sounds at the left base. Cardiac Exam: [Normal S1 and S2, no S3 gallop, 2/6 systolic murmur throughout the precordium.] Abdomen: [Soft, nontender, no megaly, no rebound, no guarding, normal bowel sounds.] Extremities: [No clubbing, no edema, no cyanosis.] Neurological Exam: [No focal neurologic deficit. psychiatric: Normal mood affect and mental status examination. Lymphatics: No lymphadenopathy.] - Labs CBC & Chem 7: 02/24/18 04:14 02/24/18 04:14 Labs: Abnormal Lab Results - Last 24 Hours (Table) 02/22/18 02/23/18 02/24/18 Range/Units 13:01 12:20 04:14 RBC 2.78 L (4.30-5.90) m/uL Hgb 8.1 L D (13.0-17.5) gm/dL Hct 23.5 L (39.0-53.0) % RDW 16.2 H (11.5-15.5) % Plt Count 91 L (150-450) k/uL Lymphocytes # (1.0-4.8) k/uL Carbon Dioxide 32 H (22-30) mmol/L Creatinine 5.00 H* (0.66-1.25) mg/dL Calcium 8.0 L (8.4-10.2) mg/dL Crossmatch See Detail 02/24/18 Range/Units 04:14 RBC 2.84 L (4.30-5.90) m/uL Hgb 8.1 L (13.0-17.5) gm/dL Hct 24.4 L (39.0-53.0) % RDW 16.1 H (11.5-15.5) % Plt Count 98 L (150-450) k/uL Lymphocytes # 0.9 L (1.0-4.8) k/uL Carbon Dioxide (22-30) mmol/L Creatinine (0.66-1.25) mg/dL Calcium (8.4-10.2) mg/dL Crossmatch Assessment and Plan Plan: Assessment: 1 acute anemia secondary to GI blood losses and some component of chronic disease/chronic renal failure. Patient is on hemodialysis. 2 history of duodenal ulcer disease, Ortiz esophagus, erosive gastritis, and recent snare polypectomies. 3 end-stage renal disease, on hemodialysis. 4 history of seizure disorder on Keppra 5 history of empyema or complicated pleural effusion requiring decortication 6 history of pericardial effusion requiring pericardial window 7 history of chronic tobacco dependence supposedly quit smoking recently. But resumed in early February. 8 history of benign essential hypertension 9 anemia of chronic disease, chronic renal failure patient remains on Aranesp 40 g weekly. Plan: Patient denies any specific complaints, denies any chest pain, dyspnea, or abdominal his comfort, no further bleeding noted. Hemoglobin is stable at 8.1, patient has received a total of 5 units of packed red blood cells. Hemodynamically stable. From pulmonary/critical care standpoint patient is stable for transfer out of ICU to a regular medical surgical floor today. I performed a history & physical examination of the patient and discussed their management with my nurse practitioner, Kerry Kiran. I reviewed the nurse practitioner's note and agree with the documented findings and plan of care. Lung sounds are clear,. The findings and the impression was discussed with the patient. I attest to the documentation by the nurse practitioner. Critical care time is over 30 minutes Time with Patient: Greater than 30
--- NOTE | 2018-02-24 12:23 | PN ---
PROGRESS NOTE Patient is seen for followup for end-stage renal disease. He was dialyzed yesterday as patient had missed his treatment on Saturday. The patient was admitted to the hospital with hemoglobin of 4.9 g/dL. He has been transfused 5 units packed RBCs in the hospital and he had 2 additional units 2 days prior to admission as outpatient. The patient has been evaluated by GI. He recently has had a colonoscopy and there are no plans of re-scoping again. The patient has not had any bloody bowel movements post hospitalization. He remains on Protonix. PHYSICAL EXAMINATION: On examination, blood pressure is 146/83, heart rate 85 per minute. He is afebrile. EXAMINATION OF THE HEART: S1 and S2. EXAMINATION OF THE LUNGS: Bilateral breath sounds are heard. Abdomen is soft, nontender. Examination of lower extremities shows no evidence of edema. [employer] exam is grossly intact. LABS: Labs show sodium 141, potassium 4.9, chloride 101, BUN 20, serum creatinine 5.0. Hemoglobin 8.1 g/dL. ASSESSMENT: 1. End-stage renal disease, on hemodialysis on a Saturday, , Saturday schedule. We will arrange for hemodialysis in a.m. The patient does not need to be dialyzed today. 2. Anemia, status post multiple packed RBCs transfusion. Maintained on Aranesp. The patient had bloody bowel movements at home. However, he has not had any blood in his stool post hospitalization, and stool for occult blood was negative as well. 3. History of pericardial effusion, status post pericardiocentesis on his last admission. 4. Hypertension, currently controlled. 5. Hyperkalemia associated with multiple packed RBCs transfusion and end-stage renal disease currently improved post dialysis. PLAN: Hemodialysis in a.m. Continue Aranesp and continue with the Protonix. Follow up with GI as outpatient. The patient could be possibly discharged. MMODL / IJN: [id number] /
[2018-02-24 12:37] VITALS: BP 158/72; PULSE 98; RESP 18; TEMP 97.7
--- NOTE | 2018-02-24 14:10 | P.DS ---
Providers Date of admission: 02/22/18 16:06 Expected date of discharge: 02/24/18 Attending physician: Ariel Britt MD Consults: 02/22/18 16:07 Consult Physician Routine Consulting Provider: Noy Crowe Consult Reason/Comments: Anemia, concern for GI bleed Do you want consulting provider notified?: Yes 02/22/18 16:53 Consult Physician Routine Consulting Provider: Ady Fraire Consult Reason/Comments: Anemia, GI bleed Do you want consulting provider notified?: Already Contacted 02/22/18 18:43 Consult Physician Routine Consulting Provider: Maricarmen Figueroa Consult Reason/Comments: dialysis patient Do you want consulting provider notified?: Already Contacted Primary care physician: Jaylen Holguin [facility] Course: This is a 47-year-old male patient of Dr. Holguin with past medical history of end-stage renal disease on hemodialysis 3 times weekly- , , , hypertension, seizure disorder, left thalamus stroke, previous admission for acute hypoxic respiratory failure secondary to fluid overload from missing dialysis treatments requiring mechanical ventilation, chronic thrombocytopenia, tobacco use and dependence. Patient was recently hospitalized under the care of Dr. Robison February 03 through February 04 for left empyema status post VATS procedure and pericardial window. He was then admitted on February 13 through February 14 for asymptomatic anemia and underwent EGD with biopsy and colonoscopy with snare polypectomy. Upper endoscopy revealed a 1 cm duodenal bulbar ulcer, antral erosive gastritis and short segment Ortiz's esophagus. Colonoscopy revealed a 5 mm transverse colon polyps status post polypectomy, 5 mm and 1 cm flat descending colon polyp status post polypectomy, 2 cm pedunculated sigmoid colon polyp status post polypectomy, 5 mm proximal rectal polyp status post polypectomy. Was recommended the patient continue on Protonix 40 mg daily. Patient states that he has been taking his Protonix as prescribed every day. Last week patient was found to have a low hemoglobin and on Saturday had a blood transfusion of 2 units at [facility]. Repeat hemoglobin was then found to be 4.4 and patient was instructed to go from dialysis center to [facility]. He received 1 unit of packed RBCs and was then transferred to [facility] and was admitted to the intensive care unit. Patient denies having any blood in his stools no dark stools. He denies any chest pain, shortness of breath, lightheadedness or dizziness. His left leg was more edematous than the right and a ultrasound duplex showed no DVT. Chest x-ray shows no change. Upon presentation his hemoglobin was 4.9 and patient has been ordered for an additional 4 units of packed RBCs. After 3 units he was 6.6. Patient subsequently received the full [address] with [address] Crowe. Patient is requesting to eat and states he is hungry. 02/24: Repeat hemoglobin done yesterday after 5 units total packed RBCs was 8.1 and repeat this morning is also 8.1. The patient was seen by Dr. De Los Santos with no plan for repeat endoscopy. Recommended to continue Protonix. She started him on a renal diet yesterday which she has been tolerating with no nausea or vomiting. Patient underwent dialysis yesterday. Patient has been cleared for discharge by Dr. Figueroa and he will resume his normal schedule of Saturday. Patient denies any complaints. He did have a bowel movement which was brown with no tardiness or redness. Patient will be discharged home today in stable condition. Discharge diagnoses: 1. Asymptomatic anemia with possible acute blood loss anemia status post transfusion of total 5 units packed RBCs. 2. History of anemia of chronic disease. 3. End-stage renal disease on hemodialysis Saturday and Saturday. 4. Hypertension, hypertensive cardiovascular disease. 5. History of seizure disorder. 6. Recent hospitalization and treated for empyema status post VATS and pericardial window. Respiratory status is stable. 7. History of left thalamus stroke. 8. History of tobacco use and dependence. 9. Chronic thrombocytopenia. Discharge plan: Return home Impression and plan of care have been directed as dictated by the signing physician. Doretha Brumfield nurse practitioner acting as scribe for signing physician. Patient Condition at Discharge: Good Plan - Discharge Summary New Discharge Prescriptions: Continue Calcium Acetate [PhosLo] 667 mg PO TID-W/MEALS Ergocalciferol (Vitamin D2) [Vitamin D2] 50,000 unit PO Q30D Methocarbamol [Robaxin] 750 mg PO TID PRN PRN Reason: Moderate Pain amLODIPine [Norvasc] 5 mg PO BID tab Melatonin 5 mg PO HS tab QUEtiapine [SEROquel] 25 mg PO HS #30 tab Aspirin 325 mg PO DAILY #30 tab Atorvastatin [Lipitor] 20 mg PO DAILY #30 tablet Gabapentin [Neurontin] 100 mg PO BID #60 cap levETIRAcetam [Keppra] 1,000 mg PO Q12HR #120 tab Acetaminophen Tab [Tylenol] 650 mg PO Q6HR PRN tab PRN Reason: Fever And/ Or Pain Darbepoetin Jim [Aranesp] 40 mcg SQ Q7D syringe Lisinopril [Zestril] 20 mg PO BID #60 tab Labetalol [Trandate] 400 mg PO BID #1 tablet Sodium Bicarbonate Tab 650 mg PO BID Sevelamer [Renvela] 1,600 mg PO AC-TID Changed Pantoprazole [Protonix] 40 mg PO AC-BID #60 tablet.dr Discharge Medication List Calcium Acetate [PhosLo] 667 mg PO TID-W/MEALS 11/22/16 [History] Ergocalciferol (Vitamin D2) [Vitamin D2] 50,000 unit PO Q30D 07/21/17 [History] Methocarbamol [Robaxin] 750 mg PO TID PRN 07/22/17 [History] Aspirin 325 mg PO DAILY #30 tab 07/27/17 [Rx] Atorvastatin [Lipitor] 20 mg PO DAILY #30 tablet 07/27/17 [Rx] Melatonin 5 mg PO HS tab 07/27/17 [Rx] QUEtiapine [SEROquel] 25 mg PO HS #30 tab 07/27/17 [Rx] amLODIPine [Norvasc] 5 mg PO BID tab 07/27/17 [Rx] Gabapentin [Neurontin] 100 mg PO BID #60 cap 12/25/17 [Rx] levETIRAcetam [Keppra] 1,000 mg PO Q12HR #120 tab 12/25/17 [Rx] Acetaminophen Tab [Tylenol] 650 mg PO Q6HR PRN tab 02/03/18 [Rx] Darbepoetin Jim [Aranesp] 40 mcg SQ Q7D syringe 02/03/18 [Rx] Labetalol [Trandate] 400 mg PO BID #1 tablet 02/04/18 [Rx] Lisinopril [Zestril] 20 mg PO BID #60 tab 02/04/18 [Rx] Sevelamer [Renvela] 1,600 mg PO AC-TID 02/11/18 [History] Sodium Bicarbonate Tab 650 mg PO BID 02/11/18 [History] Pantoprazole [Protonix] 40 mg PO AC-BID #60 tablet. 02/23/18 [Rx] Follow up Appointment(s)/Referral(s): Jaylen Holguin MD [Primary Care Provider] - 1 Week Activity/Diet/Wound Care/Special Instructions: Return to dialysis tomorrow as normally scheduled. Discharge Disposition: HOME SELF-CARE
== END 2018-02-24 12:57 | disposition home or self-care (01) | DRG 811 ==
LOC: EC 14:24 → 6ICU 16:06
PROVIDERS: ADMIT Internal Medicine; ATTEND Internal Medicine
PROC: 30230N1 Transfusion of Nonautologous Red Blood Cells into Peripheral Vein, Open Approach (ICD-10-PCS; principal; 2018-02-22)
PROC: 5A1D70Z Performance of Urinary Filtration, Intermittent, Less than 6 Hours Per Day (ICD-10-PCS; 2018-02-23)
DX: D62 Acute posthemorrhagic anemia (principal); N18.6 End stage renal disease; D69.6 Thrombocytopenia, unspecified; I13.11 Hypertensive heart and chronic kidney disease without heart failure, with stage 5 chronic kidney disease, or end stage renal disease; E87.5 Hyperkalemia; K26.9 Duodenal ulcer, unspecified as acute or chronic, without hemorrhage or perforation; K92.1 Melena; J98.11 Atelectasis; D63.1 Anemia in chronic kidney disease; G40.909 Epilepsy, unspecified, not intractable, without status epilepticus; F17.210 Nicotine dependence, cigarettes, uncomplicated; E78.00 Pure hypercholesterolemia, unspecified; E78.5 Hyperlipidemia, unspecified; G89.29 Other chronic pain; E83.89 Other disorders of mineral metabolism; M54.9 Dorsalgia, unspecified; K29.60 Other gastritis without bleeding; K22.70 Barrett's esophagus without dysplasia; Z99.2 Dependence on renal dialysis; Z71.6 Tobacco abuse counseling; Z79.82 Long term (current) use of aspirin; Z79.899 Other long term (current) drug therapy; Z87.19 Personal history of other diseases of the digestive system; Z87.442 Personal history of urinary calculi; Z86.73 Personal history of transient ischemic attack (TIA), and cerebral infarction without residual deficits; Z87.11 Personal history of peptic ulcer disease; Z80.7 Family history of other malignant neoplasms of lymphoid, hematopoietic and related tissues; Z82.3 Family history of stroke
CPT/HCPCS: 36415; 71045; 80048; 80053; 82272; 83010; 83615; 83735; 84100; 84132; 85025; 85027; 85610; 85730; 86850; 86900; 86901; 86920; 96374; 99291

== ENCOUNTER 2018-03-07 20:16 | Inpatient (IN) | payer MEDICARE, BC ==
--- NOTE | 2018-03-07 20:46 | ED ---
Arrhythmia/Palpitations HPI - General Chief Complaint: Arrhythmia/Palpitations Stated Complaint: Abnormal Labs Time Seen by Provider: 03/07/18 20:29 Source: patient, EMS Mode of arrival: EMS Limitations: no limitations - History of Present Illness Initial Comments: This patient is a 47-year-old man transferred here from [facility]. The patient had been at his dialysis session today, and around 3 PM he was found to be in atrial fibrillation. Patient had been having some chest symptoms that he described as a funny feeling. When questioned directly whether this was pain he states that the only pain he had in his chest was some residual pain he has been having since a pericardial window was performed approximately a month ago for pericardial effusion. Patient is transferred here to have cardiology consultation. Reviewing the outside records reveals that he had to troponins checked there are 3 hours apart and the second one was at the cutoff level. The patient denies any chest sensations since initial during dialysis. MD Complaint: atrial fibrillation Onset/Timin -: hour(s) Context: other (During dialysis session) Arrhythmia History: other (No previous history) Associated Symptoms: denies other symptoms - Related Data Home Medications Medication Instructions Recorded Confirmed Calcium Acetate [PhosLo] 667 mg PO TID-W/MEALS 11/22/16 03/07/18 Ergocalciferol (Vitamin D2) 50,000 unit PO Q30D 07/21/17 03/07/18 [Vitamin D2] Methocarbamol [Robaxin] 750 mg PO TID PRN 07/22/17 03/07/18 Sevelamer [Renvela] 1,600 mg PO AC-TID 02/11/18 03/07/18 Sodium Bicarbonate Tab 650 mg PO BID 02/11/18 03/07/18 Previous Rx's Medication Instructions Recorded Aspirin 325 mg PO DAILY #30 tab 07/27/17 Atorvastatin [Lipitor] 20 mg PO DAILY #30 tablet 07/27/17 Melatonin 5 mg PO HS tab 07/27/17 QUEtiapine [SEROquel] 25 mg PO HS #30 tab 07/27/17 amLODIPine [Norvasc] 5 mg PO BID tab 07/27/17 Gabapentin [Neurontin] 100 mg PO BID #60 cap 12/25/17 levETIRAcetam [Keppra] 1,000 mg PO Q12HR #120 tab 12/25/17 Acetaminophen Tab [Tylenol] 650 mg PO Q6HR PRN tab 02/03/18 Darbepoetin Jim [Aranesp] 40 mcg SQ Q7D syringe 02/03/18 Labetalol [Trandate] 400 mg PO BID #1 tablet 02/04/18 Lisinopril [Zestril] 20 mg PO BID #60 tab 02/04/18 Pantoprazole [Protonix] 40 mg PO AC-BID #60 tablet. 02/23/18 Allergies Allergy/AdvReac Type Severity Reaction Status Date / Time No Known Allergies Allergy Verified 03/07/18 21:08 Review of Systems ROS Statement: Those systems with pertinent positive or pertinent negative responses have been documented in the HPI. ROS Other: All systems not noted in ROS Statement are negative. Constitutional: Denies: fever, chills, weakness Respiratory: Denies: cough, dyspnea, wheezes Cardiovascular: Reports: as per HPI, palpitations, dyspnea on exertion. Denies : chest pain, orthopnea, edema, syncope Gastrointestinal: Denies: abdominal pain, nausea, vomiting, diarrhea, melena, hematochezia Genitourinary: Denies: dysuria, hematuria Musculoskeletal: Denies: back pain Skin: Denies: rash Neurological: Denies: headache, weakness, numbness Past Medical History Past Medical History: Blood Disorder, Hypertension, Renal Disease, Seizure Disorder Additional Past Medical History / Comment(s): End-stage renal disease on hemodialysis schedule of Saturday, and Saturday, CVA no residual weakness. Anemia, recent admit for GIB with EGD and colonoscopy, last seizure 4 months ago History of Any Multi-Drug Resistant Organisms: None Reported Past Surgical History: Bladder Surgery, Orthopedic Surgery Additional Past Surgical History / Comment(s): fistula for dialysis. lithotripsy , kidney stents, VATS procedure, pericardial window, polypectomy last admit with colonoscopy, EGD Past Anesthesia/Blood Transfusion Reactions: No Reported Reaction Past Psychological History: No Psychological Hx Reported Smoking Status: Current every day smoker Past Alcohol Use History: None Reported Past Drug Use History: None Reported - Past Family History Father Family Medical History: Cancer, CVA/TIA Additional Family Medical History / Comment(s): Father had lymphoma. He had a CVA Mother Family Medical History: CVA/TIA Additional Family Medical History / Comment(s): Mother had a CVA. General Exam Limitations: no limitations General appearance: alert, in no apparent distress Head exam: Present: atraumatic, normocephalic Eye exam: Present: normal appearance. Absent: scleral icterus, conjunctival injection ENT exam: Present: normal oropharynx Neck exam: Present: normal inspection Respiratory exam: Present: normal lung sounds bilaterally. Absent: respiratory distress, wheezes, rales, rhonchi, stridor Cardiovascular Exam: Present: regular rate, normal rhythm, normal heart sounds. Absent: systolic murmur, diastolic murmur, rubs, gallop GI/Abdominal exam: Present: soft. Absent: distended, tenderness, guarding, rebound, mass Extremities exam: Present: normal inspection, normal capillary refill. Absent: pedal edema, calf tenderness Back exam: Present: normal inspection. Absent: CVA tenderness (R), CVA tenderness (L) Neurological exam: Present: alert Skin exam: Present: warm, dry, intact, normal color. Absent: rash Course Vital Signs 03/07/18 03/07/18 03/07/18 20:20 23:06 23:16 Temperature 98.5 F 98.2 F Pulse Rate 86 Pulse Rate [ 77 Pulse Oximetery ] Respiratory 18 16 Rate Blood Pressure 153/85 Blood Pressure 132/78 [Left Arm Sitting] O2 Sat by Pulse 96 95 95 Oximetry 03/07/18 23:21 Temperature Pulse Rate 91 Pulse Rate [ Pulse Oximetery ] Respiratory 16 Rate Blood Pressure 130/65 Blood Pressure [Left Arm Sitting] O2 Sat by Pulse 96 Oximetry EKG Findings - EKG Results: EKG: interpreted by ERMD, sinus rhythm (Rate approximately 85 bpm), normal axis , normal QRS - Blocks, [place], Hypertrophy, ST Abn: Repolarization changes or abnormalities: nonspecific abnormality, ST segment, and/or T wave, Q-T interval prolongation Medical Decision Making - Lab Data Result diagrams: 03/08/18 02:00 03/08/18 02:00 Lab Results 03/07/18 Range/Units 20:30 Troponin I 0.078 H* (0.000-0.034) ng/mL Disposition Clinical Impression: Atrial fibrillation, End stage renal disease on dialysis Disposition: ADMITTED IP TO THIS HOSP Condition: Fair Is patient prescribed a controlled substance at d/c from ED?: No
[2018-03-07] MEDS ORDERED: NITROGLYCERIN SL TABS 0.4 MG TAB SUBLINGUAL PRN (23:06)
[2018-03-07] MEDS ORDERED: ACETAMINOPHEN TAB 325 MG TAB PO PRN (23:08)
[2018-03-07] MEDS ORDERED: METHOCARBAMOL 750 MG TAB PO PRN (23:08)
[2018-03-08 02:07] VITALS: BMI 26.6
[2018-03-08 02:30] LABS: Anisocytosis Slight; Basophils % (A) 1 %; Eosinophils # (A) 0.1 k/uL (0-0.7); Eosinophils % (A) 1 %; HCT 24.5 % (39.0-53.0); Lymphocytes # (A) 1.2 k/uL (1.0-4.8); Lymphocytes % (A) 18 %; MCH 28.2 pg (25.0-35.0); MCHC 32.6 g/dL (31.0-37.0); MCV 86.6 fL (80.0-100.0); Mean Platelet Volume 7.1; Monocytes # (A) 0.4 k/uL (0-1.0); Monocytes % (A) 6 %; Neutrophils # (A) 4.5 k/uL (1.3-7.7); Neutrophils % (A) 72 %; Poikilocytosis Slight; RBC 2.83 m/uL (4.30-5.90); WBC 6.3 k/uL (3.8-10.6)
[2018-03-08 02:31] LABS: Platelet Count 252 k/uL (150-450)
[2018-03-08 02:42] LABS: Calcium 8.8 mg/dL (8.4-10.2); Potassium 3.7 mmol/L (3.5-5.1)
[2018-03-08 03:04] LABS: Creatine Kinase MB 1.3 ng/mL (0.0-2.4)
[2018-03-08 03:25] LABS: Troponin I 0.066 ng/mL (0.000-0.034)
[2018-03-08] MEDS: SEVELAMER 800 MG TAB PO SCH ×2 (06:47→11:48)
[2018-03-08] MEDS: CALCIUM ACETATE 667 MG CAP PO SCH ×2 (06:48→11:48)
[2018-03-08] MEDS ORDERED: PANTOPRAZOLE 40 MG TABLET PO SCH (07:30)
[2018-03-08 08:10] VITALS: TEMP 97.1
[2018-03-08] MEDS ORDERED: SODIUM BICARBONATE TAB 650 MG TAB PO SCH (09:00)
[2018-03-08] MEDS ORDERED: ATORVASTATIN 20 MG TAB PO SCH (09:00)
[2018-03-08] MEDS ORDERED: ASPIRIN 325 MG TAB PO SCH (09:00)
[2018-03-08] MEDS ORDERED: ERGOCALCIFEROL 50,000 UNIT CAP PO SCH (09:00)
[2018-03-08] MEDS ORDERED: levETIRAcetam 500 MG TAB PO SCH (09:00)
[2018-03-08] MEDS ORDERED: LISINOPRIL 20 MG TAB PO SCH (09:00)
[2018-03-08] MEDS ORDERED: GABAPENTIN 100 MG CAP PO SCH (09:00)
[2018-03-08] MEDS ORDERED: amLODIPine 5 MG TAB PO SCH (09:00)
[2018-03-08] MEDS ORDERED: LABETALOL 200 MG TAB PO SCH (09:00)
--- NOTE | 2018-03-08 09:28 | P.NPCON ---
History of Present Illness - Reason for Consult end stage renal disease - History of Present Illness Reason for consultation: End-stage renal disease History of present illness: Patient is a 47-year-old male seen in renal consultation for end-stage renal disease. He is making an hemodialysis on a Saturday schedule via right upper extremity AV fistula. Patient was noted to be in atrial fibrillation during dialysis yesterday and was subsequently sent to the hospital. Patient is asymptomatic. He denies any chest pain or shortness of breath. He denies palpitations. Denies any headaches dizziness or syncopal episodes. Oral intake is good. Hemodynamically stable. No vomiting or diarrhea. Patient has been admitted multiple times to the hospital recently for various reasons. In January 2018 he underwent pericardiocentesis due to pericardial effusion. He was also admitted for GI bleed for which she underwent endoscopy and also received blood transfusion. His hemoglobin is 8.0 today. He denies any melena or hematochezia. No hematemesis. No active complaints at this time. Vital signs are stable. General: The patient appeared well nourished and normally developed. HEENT: Head exam is unremarkable. Neck is without jugular venous distension. LUNGS: Lungs are clear to auscultation and percussion. Breath sounds decreased. HEART: Rate and Rhythm are regular. First and second heart sounds normal. No murmurs, rubs or gallops. ABDOMEN: Abdominal exam reveals normal bowel sounds. Non-tender and non- distended. No evidence of peritonitis. EXTREMITITES: No clubbing, cyanosis, or edema. Past Medical History Past Medical History: Blood Disorder, Hypertension, Renal Disease, Seizure Disorder Additional Past Medical History / Comment(s): End-stage renal disease on hemodialysis schedule of Saturday, and Saturday, CVA no residual weakness. Anemia, recent admit for GIB with EGD and colonoscopy, last seizure 4 months ago History of Any Multi-Drug Resistant Organisms: None Reported Past Surgical History: Bladder Surgery, Orthopedic Surgery Additional Past Surgical History / Comment(s): fistula for dialysis. lithotripsy , kidney stents, VATS procedure, pericardial window, polypectomy last admit with colonoscopy, EGD Past Anesthesia/Blood Transfusion Reactions: No Reported Reaction Past Psychological History: No Psychological Hx Reported Additional Psychological History / Comment(s): Pt resides with his spouse of 17 yrs. He no longer drives d/t seizures. His spouse takes him to [employer] or his sister does. He is otherwise independent. Smoking Status: Current every day smoker Past Alcohol Use History: None Reported Additional Past Alcohol Use History / Comment(s): Pt started smoking in 1984 at 1-1-1/2 packs per day and quit in January but restarte 02/20/2018. He denies any marijuana, street drug use or alcohol use. Past Drug Use History: None Reported - Past Family History Father Family Medical History: Cancer, CVA/TIA Additional Family Medical History / Comment(s): Father had lymphoma. He had a CVA Mother Family Medical History: CVA/TIA Additional Family Medical History / Comment(s): Mother had a CVA. Medications and Allergies Home Medications Medication Instructions Recorded Confirmed Type Calcium Acetate [PhosLo] 667 mg PO TID-W/MEALS 11/22/16 03/07/18 History Ergocalciferol (Vitamin D2) 50,000 unit PO Q30D 07/21/17 03/07/18 History [Vitamin D2] Methocarbamol [Robaxin] 750 mg PO TID PRN 07/22/17 03/07/18 History Aspirin 325 mg PO DAILY #30 tab 07/27/17 03/07/18 Rx Atorvastatin [Lipitor] 20 mg PO DAILY #30 tablet 07/27/17 03/07/18 Rx Melatonin 5 mg PO HS tab 07/27/17 03/07/18 Rx QUEtiapine [SEROquel] 25 mg PO HS #30 tab 07/27/17 03/07/18 Rx amLODIPine [Norvasc] 5 mg PO BID tab 07/27/17 03/07/18 Rx Gabapentin [Neurontin] 100 mg PO BID #60 cap 12/25/17 03/07/18 Rx levETIRAcetam [Keppra] 1,000 mg PO Q12HR #120 tab 12/25/17 03/07/18 Rx Acetaminophen Tab [Tylenol] 650 mg PO Q6HR PRN tab 02/03/18 03/07/18 Rx Darbepoetin Jim [Aranesp] 40 mcg SQ Q7D syringe 02/03/18 03/07/18 Rx Labetalol [Trandate] 400 mg PO BID #1 tablet 02/04/18 03/07/18 Rx Lisinopril [Zestril] 20 mg PO BID #60 tab 02/04/18 03/07/18 Rx Sevelamer [Renvela] 1,600 mg PO AC-TID 02/11/18 03/07/18 History Sodium Bicarbonate Tab 650 mg PO BID 02/11/18 03/07/18 History Pantoprazole [Protonix] 40 mg PO AC-BID #60 tablet. 02/23/18 03/07/18 Rx Allergies Allergy/AdvReac Type Severity Reaction Status Date / Time No Known Allergies Allergy Verified 03/07/18 21:08 Physical Exam Vitals: Vital Signs Temp Pulse Pulse Resp BP BP Pulse Ox 03/08/18 08:00 97.1 F L 79 17 156/90 98 03/08/18 04:00 98.0 F 88 16 136/71 96 03/07/18 23:21 91 16 130/65 96 03/07/18 23:16 98.2 F 77 16 132/78 95 03/07/18 23:06 95 03/07/18 20:20 98.5 F 86 18 153/85 96 Intake and Output 03/07/18 03/08/18 03/08/18 22:59 06:59 14:59 Intake Total 260 Balance 260 Intake: Amount of Fluid Infused ( 20 ml) Oral 240 Other: # Voids 1 Weight 70.307 kg 65.5 kg Results - Lab Results Most recent lab results Calcium 8.8 mg/dL (8.4-10.2) 03/08/18 02:00 03/08/18 02:00 03/08/18 02:00 Assessment and Plan Plan: Assessment: #1. End-stage renal disease maintained on hemodialysis on a Saturday schedule via right upper extremity AV fistula. #2. Tachyarrhythmia during dialysis. Heart rate now controlled. #3. Hypertension with chronic kidney disease. Controlled. #4. Anemia of chronic kidney disease maintained on Aranesp. Rule out iron deficiency. #5. Pericardial effusion status post pericardiocentesis in January 2018. #6. Chronic kidney disease mineral bone disease maintained on Renvela and PhosLo. Plan: Hemodialysis today with goal 2 liters ultrafiltration. Check phosphorus level. Check iron studies. Cardiology recommendations pending. Anticipated discharge soon once cleared by cardiology. Thank you for the consultation. I will continue to follow the patient daily during his hospital stay.
--- NOTE | 2018-03-08 10:42 | P.HPIM ---
History of Present Illness H&P Date: 03/08/18 Chief Complaint: new onset A Fib This is 47 years old male with past medical history significant for end-stage renal disease presents to the emergency department from dialysis center as he was found to have atrial fibrillation. In the emergency patient's heart rate was controlled and he was in sinus rhythm was admitted due to slight elevation in troponin and further evaluation. Patient currently is denying chest pain, shortness breath, nausea, vomiting, dumping, dizziness, lightheadedness or blurry vision. Patient has been on dialysis for the last 8 years secondary to recurrent kidney stones and said that he was not considered as a candidate for kidney transplant. Patient have right upper extremity fistula and has been receiving dialysis on Saturday and Saturday. Patient was admitted prior to this admission with pericardial effusion and received pericardiocentesis by cardiothoracic surgery and stated that his been in regular state of health. Patient denied any recent upper respiratory infection , fever or chills. Patient continues to smoke 1 pack per day denying alcohol or drug abuse Review of Systems 14 systems reviewed and negative except as above Past Medical History Past Medical History: Blood Disorder, Hypertension, Renal Disease, Seizure Disorder Additional Past Medical History / Comment(s): End-stage renal disease on hemodialysis schedule of Saturday, and Saturday, CVA no residual weakness. Anemia, recent admit for GIB with EGD and colonoscopy, last seizure 4 months ago History of Any Multi-Drug Resistant Organisms: None Reported Past Surgical History: Bladder Surgery, Orthopedic Surgery Additional Past Surgical History / Comment(s): fistula for dialysis. lithotripsy , kidney stents, VATS procedure, pericardial window, polypectomy last admit with colonoscopy, EGD Past Anesthesia/Blood Transfusion Reactions: No Reported Reaction Past Psychological History: No Psychological Hx Reported Additional Psychological History / Comment(s): Pt resides with his spouse of 17 yrs. He no longer drives d/t seizures. His spouse takes him to appts or his sister does. He is otherwise independent. Smoking Status: Current every day smoker Past Alcohol Use History: None Reported Additional Past Alcohol Use History / Comment(s): Pt started smoking in 1984 at 1-1-1/2 packs per day and quit in January but restarte 02/20/2018. He denies any marijuana, street drug use or alcohol use. Past Drug Use History: None Reported - Past Family History Father Family Medical History: Cancer, CVA/TIA Additional Family Medical History / Comment(s): Father had lymphoma. He had a CVA Mother Family Medical History: CVA/TIA Additional Family Medical History / Comment(s): Mother had a CVA. Medications and Allergies Home Medications Medication Instructions Recorded Confirmed Type Calcium Acetate [PhosLo] 667 mg PO TID-W/MEALS 11/22/16 03/07/18 History Ergocalciferol (Vitamin D2) 50,000 unit PO Q30D 07/21/17 03/07/18 History [Vitamin D2] Methocarbamol [Robaxin] 750 mg PO TID PRN 07/22/17 03/07/18 History Aspirin 325 mg PO DAILY #30 tab 07/27/17 03/07/18 Rx Atorvastatin [Lipitor] 20 mg PO DAILY #30 tablet 07/27/17 03/07/18 Rx Melatonin 5 mg PO HS tab 07/27/17 03/07/18 Rx QUEtiapine [SEROquel] 25 mg PO HS #30 tab 07/27/17 03/07/18 Rx amLODIPine [Norvasc] 5 mg PO BID tab 07/27/17 03/07/18 Rx Gabapentin [Neurontin] 100 mg PO BID #60 cap 12/25/17 03/07/18 Rx levETIRAcetam [Keppra] 1,000 mg PO Q12HR #120 tab 12/25/17 03/07/18 Rx Acetaminophen Tab [Tylenol] 650 mg PO Q6HR PRN tab 02/03/18 03/07/18 Rx Darbepoetin Jim [Aranesp] 40 mcg SQ Q7D syringe 02/03/18 03/07/18 Rx Labetalol [Trandate] 400 mg PO BID #1 tablet 02/04/18 03/07/18 Rx Lisinopril [Zestril] 20 mg PO BID #60 tab 02/04/18 03/07/18 Rx Sevelamer [Renvela] 1,600 mg PO AC-TID 02/11/18 03/07/18 History Sodium Bicarbonate Tab 650 mg PO BID 02/11/18 03/07/18 History Pantoprazole [Protonix] 40 mg PO AC-BID #60 tablet. 02/23/18 03/07/18 Rx Allergies Allergy/AdvReac Type Severity Reaction Status Date / Time No Known Allergies Allergy Verified 03/07/18 21:08 Physical Exam Vitals: Vital Signs Temp Pulse Pulse Resp BP BP Pulse Ox 03/08/18 08:00 97.1 F L 79 17 156/90 98 03/08/18 04:00 98.0 F 88 16 136/71 96 03/07/18 23:21 91 16 130/65 96 03/07/18 23:16 98.2 F 77 16 132/78 95 03/07/18 23:06 95 03/07/18 20:20 98.5 F 86 18 153/85 96 Intake and Output 03/07/18 03/08/18 03/08/18 22:59 06:59 14:59 Intake Total 260 Balance 260 Intake: Amount of Fluid Infused ( 20 ml) Oral 240 Other: # Voids 1 Weight 70.307 kg 65.5 kg Gen.: in stated age, no acute distress Heart: Normal S1-S2 Lungs: Clear to auscultation bilaterally Abdomen: Soft, no tenderness, positive bowel sounds in all 4 quadrant no guarding or rebound Skin: No new rash Psych: Alert and oriented 3 Neuro: No focal deficit Neck supple no masses no thyromegaly HEENT atraumatic normocephalic Results CBC & Chem 7: 03/08/18 02:00 03/08/18 02:00 Labs: Abnormal Lab Results - Last 24 Hours (Table) 03/07/18 03/08/18 03/08/18 Range/Units 20:30 02:00 02:00 RBC 2.83 L (4.30-5.90) m/uL Hgb 8.0 L (13.0-17.5) gm/dL Hct 24.5 L (39.0-53.0) % RDW 16.0 H (11.5-15.5) % Chloride (98-107) mmol/L Carbon Dioxide (22-30) mmol/L Creatinine (0.66-1.25) mg/dL Troponin I 0.078 H* 0.066 H* (0.000-0.034) ng/mL 03/08/18 Range/Units 02:00 RBC (4.30-5.90) m/uL Hgb (13.0-17.5) gm/dL Hct (39.0-53.0) % RDW (11.5-15.5) % Chloride 92 L (98-107) mmol/L Carbon Dioxide 33 H (22-30) mmol/L Creatinine 3.50 H (0.66-1.25) mg/dL Troponin I (0.000-0.034) ng/mL Thrombosis Risk Factor Assmnt - Choose All That Apply Each Factor Represents 1 point: Age 41-60 years Other Risk Factors: No Thrombosis Risk Factor Assessment Total Risk Factor Score: 1 Thrombosis Risk Factor Assessment Level: Low Risk Assessment and Plan Assessment: 1. New onset that they're fibrillation. Now in sinus rhythm. 2. Elevated troponin could be related to #1 and end-stage renal disease. 3. End-stage renal disease. 4. Hypertension with recent improvement and coming off 2 medication 5. History of pericardial effusion status post pericardiocentesis. Next line 6. Hyperlipidemia. 6. Anemia of chronic disease. 7. Seizure disorder. We will continue Keppra 1000 mg twice daily most recent back in July he did 8. Questionable history of stroke. Reported by his but no focal deficit and normal exam. 9. History of recurrent kidney stones as a culprit for his kidney failure. Patient follow-up with his urologist patient. 10. Tobacco dependency. Patient counseled regarding smoking cessation and willing to quit Plan: I had discussion with the patient and his who is at the bedside to continue with clinical research monitor, follow up on troponin and follow-up with cardiology recommendation. We will consider repeating 2-D echo to rule out any wall motion abnormality. Would continue cardioprotective medication. Heart rate is currently controlled and back in sinus rhythm no further events reported by nursing staff. We will continue his home medication and consider discharge based on clinical progress
[2018-03-08 10:45] LABS: Creatine Kinase MB 1.3 ng/mL (0.0-2.4)
[2018-03-08 10:49] LABS: Troponin I 0.044 ng/mL (0.000-0.034)
[2018-03-08 16:10] VITALS: BP 122/64; PULSE 82; RESP 18
[2018-03-08 18:00] LABS: Iron Saturation 42.21 (15.00-50.00)
--- NOTE | 2018-03-08 18:24 | CONS ---
CONSULTATION Mr. Eng is a 47-year-old male with known history of end-stage renal disease, on hemodialysis, who was in the dialysis center and had an episode of atrial fibrillation. He converted to sinus mechanism shortly after. He had some burning in the left side with it. He had a long admission recently because of parapneumonic empyema and pericardial effusion. He underwent pericardial window and thoracentesis. His left ventricular systolic function was preserved. He has no prior history of obstructive coronary artery disease. He has no documented history of congestive heart failure. No prior history of PND, orthopnea or peripheral edema. His level of activity is stable. His coronary risk factors are remarkable for history of chronic tobacco use. He has a history of hypertension, hyperlipidemia. He is non-diabetic. His medications at home include: 1. Aranesp. 2. Keppra. 3. Norvasc. 4. Renvela. 5. Seroquel. 6. Robaxin. 7. Zestril. 8. Trandate. 9. Neurontin. 10.Protonix. 11.PhosLo. 12.Lipitor 20 mg daily. 13.Aspirin. REVIEW OF SYSTEMS: RESPIRATORY SYSTEM. He has dyspnea on exertion. No recent wheezing or cough. GI SYSTEM: No recent GI bleeding on this admission, but he had an episode of GI bleeding not too long ago with an ulcer. SYSTEM: He has end-stage renal disease but continues to have urine output. NERVOUS SYSTEM: He has a prior history of seizure and stroke. PHYSICAL EXAMINATION: This is a 47-year-old male, alert, oriented, in no apparent distress. Undergoing dialysis. Blood pressure 136/70 with a heart rate in the 80s. HEAD: Normocephalic. EYES: Sclerae anicteric. NECK: Good carotid upstroke. No bruit. No jugular venous distention. LUNGS: Clear to auscultation. HEART: Regular rate and rhythm. S1, S2. No S3. No rub or gallop. ABDOMEN: Soft, nontender. Positive bowel sounds. No organomegaly. EXTREMITIES: No edema. Intact distal pulses. LAB DATA: Lab data revealed hemoglobin of 8. BUN and creatinine of 17 and 3.5. Troponin 0.078, 0.066 and 0.044. Cholesterol 134, LDL of 60. EKG revealed sinus mechanism, normal axis and intervals, with nonspecific ST-T wave changes. IMPRESSION: 1. Paroxysmal atrial fibrillation during dialysis with mild episode of chest discomfort; could represent a small non [id number] myocardial infarction, although unclear. 2. End-stage renal disease, on hemodialysis. 3. History of hypertension. 4. Status post recent pericardial window. 5. Hyperlipidemia. 6. History of chronic tobacco use. RECOMMENDATION: From the cardiac standpoint, the patient is not a candidate for anticoagulation because of the recent episode of bleeding. I will continue on the present medical regimen. His aspirin has been on hold because of the recent bleeding. At this time, he is not a candidate for any aggressive workup. Thank you for this consult. Will follow with you. LETY / NATHANN: [id number] /
[2018-03-08] MEDS ORDERED: QUEtiapine 25 MG TAB PO SCH (21:00)
[2018-03-08] MEDS ORDERED: MELATONIN 5 MG TABLET PO SCH (21:00)
[2018-03-13] MEDS ORDERED: DARBEPOETIN ALFA 40 MCG/0.4 ML SYRINGE SQ SCH (09:00)
--- NOTE | 2018-03-24 08:39 | CDI ---
Documentation Clarification Form Date: 03/24/2018 12:00:00 AM From: CHAI Hartley; Dariana Charles Titrator Phone: If you have a question about this query, please contact Dariana Charles Titrator at [phone] between 8am and 5pm. Admit Date: 03/07/2018 11:09:00 PM Patient Name: Jose Eng Visit Number: [id number] Discharge Date: 03/08/2018 ATTENTION: The Clinical Documentation Specialists (CDI) and [facility] Coding Staff appreciate your assistance in clarifying documentation. Please respond to the clarification below the line at the bottom and electronically sign. The CDI & [facility] Coding staff will review the response and follow-up if needed. Please note: Queries are made part of the Legal Health Record. If you have any questions, please contact the author of this message via ITS. Dr. Shanae Mayorga The patient presented in paroxysmal atrial fibrillation. He is end stage renal and this occurred during dialysis. Troponin was elevated and documented as possibly related to the fibrillation. Cardiology states this could represent a small non-ST segment [place], although unclear. Troponin 0.044, 0.066, 0.078. In your professional opinion, can you please clarify ? Non ST-segment [place] ruled in Non St-Segment [place] ruled out Other, please specify Unable to determine MTDD
--- NOTE | 2018-04-08 15:34 | CDI ---
Documentation Clarification Form Date: 04/08/2018 12:00:00 AM From: CHAI Hartley; Dariana Charles Nurses Aide Phone: If you have a question about this query, please contact Dariana Charles Nurses Aide at [phone] between 8am and 5pm. Admit Date: 03/07/2018 11:09:00 PM Patient Name: Jose Eng Visit Number: [id number] Discharge Date: 03/08/2018 ATTENTION: The Clinical Documentation Specialists (CDI) and [facility] Coding Staff appreciate your assistance in clarifying documentation. Please respond to the clarification below the line at the bottom and electronically sign. The CDI & [facility] Coding staff will review the response and follow-up if needed. Please note: Queries are made part of the Legal Health Record. If you have any questions, please contact the author of this message via ITS. Dr. Shanae Mayorga The patient presented in paroxysmal atrial fibrillation. He is end stage renal and this occurred during dialysis. Troponin was elevated and documented as possibly related to the fibrillation. Cardiology states this could represent a small non-ST segment [place], although unclear. Troponin 0.044, 0.066, 0.078. In your professional opinion, can you please clarify ? Non ST-segment [place] ruled in Non St-Segment [place] ruled out Other, please specify Unable to determine ruled in MTDD
== END 2018-03-08 16:21 | disposition home or self-care (01) | DRG 280 ==
LOC: EC 20:16 → 6SEL 23:09
PROVIDERS: ADMIT Internal Medicine; ATTEND Internal Medicine
DX: I48.0 Paroxysmal atrial fibrillation (principal); N18.6 End stage renal disease; I21.4 Non-ST elevation (NSTEMI) myocardial infarction; I12.0 Hypertensive chronic kidney disease with stage 5 chronic kidney disease or end stage renal disease; D63.1 Anemia in chronic kidney disease; E78.5 Hyperlipidemia, unspecified; F17.210 Nicotine dependence, cigarettes, uncomplicated; G40.909 Epilepsy, unspecified, not intractable, without status epilepticus; Z79.82 Long term (current) use of aspirin; Z79.899 Other long term (current) drug therapy; Z80.7 Family history of other malignant neoplasms of lymphoid, hematopoietic and related tissues; Z82.3 Family history of stroke; Z86.73 Personal history of transient ischemic attack (TIA), and cerebral infarction without residual deficits; Z87.442 Personal history of urinary calculi; Z99.2 Dependence on renal dialysis; Z71.6 Tobacco abuse counseling
CPT/HCPCS: 36415; 71046; 80048; 80061; 82550; 82553; 82728; 83540; 83550; 84100; 84484; 85025; 90935; 93005; 99214; 99285

== ENCOUNTER → 2018-03-28 | Outpatient (CLI) | payer MEDICARE, BC ==
[~2018-03-28] MED LIST: SODIUM CHLORIDE 0.9% 500 ML in EMPTY BAG 1 BAG IV PRN
[2018-03-28 11:12] VITALS: BP 112/58; PULSE 80; RESP 18; TEMP 98
== END | disposition home or self-care (01) ==
LOC: PROCWHC3 08:32
PROVIDERS: ATTEND Internal Medicine
DX: N18.9 Chronic kidney disease, unspecified (principal); D63.1 Anemia in chronic kidney disease
CPT/HCPCS: 86900; 86901; 86850; 86920; 36430; 36415; P9016

== ENCOUNTER 2018-10-16 12:23 | Emergency (ER) | payer MEDICARE, BC ==
[2018-10-16 12:33] VITALS: RESP 18; TEMP 98.2
[2018-10-16] MEDS ORDERED: SODIUM CHLORIDE 0.9% 1,000 ML IV STA ×2 (12:43)
--- NOTE | 2018-10-16 12:58 | ED ---
Recheck HPI - General Chief Complaint: Recheck/Abnormal Lab/Rx Stated Complaint: Low hemoglobin Time Seen by Provider: 10/16/18 12:34 Source: patient, RN notes reviewed, old records reviewed Mode of arrival: EMS Limitations: no limitations - History of Present Illness Initial Comments: 48-year-old male presents emergency department today with chief complaint of low hemoglobin. Patient reports that he was at his dialysis center any recorded single dose of 0.2. He reports that he has been feeling more tired, weak and frail. Patient reports that he has been having significant anemia over the past few months due to GI bleeds. He had his hemorrhoids removed 2 weeks ago. He reports no blood per rectum. Patient states that he has had no abdominal pain or upper GI bleeding and vomiting. Patient reports that he did have a lot of blood loss during his dialysis treatment 2 days ago, when a clamp was not clamped off. Patient states that he follows with Dr. Brown. - Related Data Home Medications Medication Instructions Recorded Confirmed Calcium Acetate [PhosLo] 667 mg PO TID-W/MEALS 11/22/16 09/03/18 Ergocalciferol (Vitamin D2) 50,000 unit PO Q30D 07/21/17 09/03/18 [Vitamin D2] Methocarbamol [Robaxin] 750 mg PO TID PRN 07/22/17 09/03/18 Sevelamer [Renvela] 1,600 mg PO AC-TID 02/11/18 09/03/18 Sodium Bicarbonate Tab 650 mg PO BID 02/11/18 09/03/18 Furosemide [Lasix] 40 mg PO BID 09/03/18 09/03/18 Labetalol [Trandate] 200 mg PO BID 09/03/18 09/03/18 Lisinopril [Zestril] 20 mg PO DAILY 09/03/18 09/03/18 Varenicline Tartrate [Chantix 0.5 mg PO DIRECTED 09/03/18 09/03/18 Starter Pack] hydrALAZINE HCL 25 mg PO TID 09/03/18 09/03/18 Previous Rx's Medication Instructions Recorded Atorvastatin [Lipitor] 20 mg PO DAILY #30 tablet 07/27/17 Melatonin 5 mg PO HS tab 07/27/17 amLODIPine [Norvasc] 5 mg PO BID tab 07/27/17 Gabapentin [Neurontin] 100 mg PO BID #60 cap 12/25/17 levETIRAcetam [Keppra] 1,000 mg PO Q12HR #120 tab 12/25/17 Acetaminophen Tab [Tylenol] 650 mg PO Q6HR PRN tab 02/03/18 Darbepoetin Jim [Aranesp] 40 mcg SQ Q7D syringe 02/03/18 Allergies Allergy/AdvReac Type Severity Reaction Status Date / Time No Known Allergies Allergy Verified 10/16/18 12:33 Review of Systems ROS Statement: Those systems with pertinent positive or pertinent negative responses have been documented in the HPI. ROS Other: All systems not noted in ROS Statement are negative. Past Medical History Past Medical History: Blood Disorder, Hypertension, Renal Disease, Seizure Disorder Additional Past Medical History / Comment(s): End-stage renal disease on hemodialysis schedule of Saturday, and Saturday, CVA no residual weakness. Anemia, recent admit for GIB with EGD and colonoscopy, last seizure 4 months ago History of Any Multi-Drug Resistant Organisms: None Reported Past Surgical History: Bladder Surgery, Orthopedic Surgery Additional Past Surgical History / Comment(s): fistula for dialysis. lithotripsy , kidney stents, VATS procedure, pericardial window, polypectomy last admit with colonoscopy, EGD Past Anesthesia/Blood Transfusion Reactions: No Reported Reaction Past Psychological History: No Psychological Hx Reported Smoking Status: Former smoker Past Alcohol Use History: None Reported Past Drug Use History: None Reported - Past Family History Father Family Medical History: Cancer, CVA/TIA Additional Family Medical History / Comment(s): Father had lymphoma. He had a CVA Mother Family Medical History: CVA/TIA Additional Family Medical History / Comment(s): Mother had a CVA. General Exam - General Exam Comments Initial Comments: 48-year-old male. Alert and oriented 3. No acute distress. Limitations: no limitations Head exam: Present: atraumatic, normocephalic, normal inspection Eye exam: Present: normal appearance, PERRL, EOMI. Absent: scleral icterus, conjunctival injection, periorbital swelling ENT exam: Present: normal exam, mucous membranes moist Neck exam: Present: normal inspection. Absent: tenderness, meningismus, lymphadenopathy Respiratory exam: Present: normal lung sounds bilaterally. Absent: respiratory distress, wheezes, rales, rhonchi, stridor Cardiovascular Exam: Present: regular rate, normal rhythm, normal heart sounds. Absent: systolic murmur, diastolic murmur, rubs, gallop, clicks GI/Abdominal exam: Present: soft, normal bowel sounds. Absent: distended, tenderness, guarding, rebound, rigid Extremities exam: Present: normal inspection, full ROM, normal capillary refill. Absent: tenderness, pedal edema, joint swelling, calf tenderness Back exam: Present: normal inspection Neurological exam: Present: alert, oriented X3, CN II-XII intact Psychiatric exam: Present: normal affect, normal mood Skin exam: Present: warm, dry, intact, normal color. Absent: rash Course Vital Signs 10/16/18 10/16/18 10/16/18 12:27 13:42 15:48 Temperature 98.2 F Pulse Rate 86 85 86 Respiratory 18 18 18 Rate Blood Pressure 191/99 194/100 165/93 O2 Sat by Pulse 95 96 Oximetry 10/16/18 16:17 Temperature 98.2 F Pulse Rate 96 Respiratory 18 Rate Blood Pressure 176/90 O2 Sat by Pulse 97 Oximetry Medical Decision Making - Medical Decision Making 48-year-old male with history of dialysis presents today with concern for anemia. Patient reports some blood loss when he had his dialysis on Saturday. History of GI bleed and hemorrhoidectomy. Hemorrhoidectomy surgery was was 2 weeks ago. He said is a slow bleeding when he wipes but no significant bleeds per rectum. Denies any bloody emesis here. He denies any pain. Patient states that he was told he had hemoglobin of 7.2 today at dialysis. He states just feels generally fatigued. Patient at this time is hemoglobin is 7.9. He did have an elevated blood pressure 200/100. He was given 20 mg of labetalol. Blood pressure came down to 160/90. Patient case discussed with Dr. Gallego who discussed case with Dr. Park. He states with a previous hemoglobin of 8.1 going to 7.9 is no need a transfusion at this time. Patient agrees. I did discuss that he should be monitored if his any significant bloody stools or other complaints he should return to emergency department for reevaluation. Patient will follow up with his primary care physician. Patient states return parameters were discussed. - Lab Data Result diagrams: 10/16/18 13:37 10/16/18 13:37 Lab Results 10/16/18 10/16/18 10/16/18 Range/Units 13:37 13:37 13:37 WBC 5.7 (3.8-10.6) k/uL RBC 2.31 L (4.30-5.90) m/uL Hgb 7.9 L (13.0-17.5) gm/dL Hct 22.4 L (39.0-53.0) % MCV 97.0 (80.0-100.0) fL MCH 34.2 (25.0-35.0) pg MCHC 35.2 (31.0-37.0) g/dL RDW 16.6 H (11.5-15.5) % Plt Count 141 L (150-450) k/uL Neutrophils % 80 % Lymphocytes % 11 % Monocytes % 5 % Eosinophils % 2 % Basophils % 0 % Neutrophils # 4.6 (1.3-7.7) k/uL Lymphocytes # 0.6 L (1.0-4.8) k/uL Monocytes # 0.3 (0-1.0) k/uL Eosinophils # 0.1 (0-0.7) k/uL Basophils # 0.0 (0-0.2) k/uL Anisocytosis Slight PT (9.0-12.0) sec INR (<1.2) APTT (22.0-30.0) sec Sodium 137 (137-145) mmol/L Potassium 4.0 (3.5-5.1) mmol/L Chloride 95 L (98-107) mmol/L Carbon Dioxide 34 H (22-30) mmol/L Anion Gap 8 mmol/L BUN 20 (9-20) mg/dL Creatinine 4.69 H (0.66-1.25) mg/dL Est GFR (CKD-EPI)AfAm 16 (>60 ml/min/1.73 sqM) Est GFR (CKD-EPI)NonAf 13 (>60 ml/min/1.73 sqM) Glucose 87 (74-99) mg/dL Calcium 9.0 (8.4-10.2) mg/dL Magnesium 1.9 (1.6-2.3) mg/dL Total Bilirubin 0.8 (0.2-1.3) mg/dL AST 28 (17-59) U/L ALT 32 (21-72) U/L Alkaline Phosphatase 59 (38-126) U/L Troponin I (0.000-0.034) ng/mL Total Protein 6.0 L (6.3-8.2) g/dL Albumin 3.6 (3.5-5.0) g/dL Blood Type O Positive Blood Type Recheck No Antibody Screen NEGATIVE Spec Expiration Date 10/19/2018233610/16/18 10/16/18 Range/Units 13:37 13:37 WBC (3.8-10.6) k/uL RBC (4.30-5.90) m/uL Hgb (13.0-17.5) gm/dL Hct (39.0-53.0) % MCV (80.0-100.0) fL MCH (25.0-35.0) pg MCHC (31.0-37.0) g/dL RDW (11.5-15.5) % Plt Count (150-450) k/uL Neutrophils % % Lymphocytes % % Monocytes % % Eosinophils % % Basophils % % Neutrophils # (1.3-7.7) k/uL Lymphocytes # (1.0-4.8) k/uL Monocytes # (0-1.0) k/uL Eosinophils # (0-0.7) k/uL Basophils # (0-0.2) k/uL Anisocytosis PT 10.2 (9.0-12.0) sec INR 1.0 (<1.2) APTT 24.4 (22.0-30.0) sec Sodium (137-145) mmol/L Potassium (3.5-5.1) mmol/L Chloride (98-107) mmol/L Carbon Dioxide (22-30) mmol/L Anion Gap mmol/L BUN (9-20) mg/dL Creatinine (0.66-1.25) mg/dL Est GFR (CKD-EPI)AfAm (>60 ml/min/1.73 sqM) Est GFR (CKD-EPI)NonAf (>60 ml/min/1.73 sqM) Glucose (74-99) mg/dL Calcium (8.4-10.2) mg/dL Magnesium (1.6-2.3) mg/dL Total Bilirubin (0.2-1.3) mg/dL AST (17-59) U/L ALT (21-72) U/L Alkaline Phosphatase (38-126) U/L Troponin I 0.032 (0.000-0.034) ng/mL Total Protein (6.3-8.2) g/dL Albumin (3.5-5.0) g/dL Blood Type Blood Type Recheck Antibody Screen Spec Expiration Date 10/16/18 15:56 EKG performed at 1331 shows normal sinus rhythm on arrival to prescription for LVH. Nonspecific ST-T wave abnormality. Prolonged QT. Ventricular rate 85 bpm. Was 142 ms. QRS duration 98 ms. QT QTc is 414/4 and 92 ms. - Radiology Data Radiology results: report reviewed Disposition Clinical Impression: HTN (hypertension), Chronic anemia Disposition: HOME SELF-CARE Condition: Good Instructions: Anemia (ED) Additional Instructions: Patient advised to follow-up with primary care provider. Recheck hemoglobin. Return to emergency department if any alarming signs or symptoms occur. Is patient prescribed a controlled substance at d/c from ED?: No Referrals: Jaylen Holguin MD [Primary Care Provider] - 1-2 days Time of Disposition: 16:02
[2018-10-16 14:15] LABS: Anisocytosis Slight; Basophils % (A) 0 %; Eosinophils # (A) 0.1 k/uL (0-0.7); Eosinophils % (A) 2 %; HCT 22.4 % (39.0-53.0); HGB 7.9 gm/dL (13.0-17.5); Lymphocytes # (A) 0.6 k/uL (1.0-4.8); Lymphocytes % (A) 11 %; MCH 34.2 pg (25.0-35.0); MCHC 35.2 g/dL (31.0-37.0); Mean Platelet Volume 7.1; Monocytes # (A) 0.3 k/uL (0-1.0); Monocytes % (A) 5 %; Neutrophils # (A) 4.6 k/uL (1.3-7.7); Neutrophils % (A) 80 %; Platelet Count 141 k/uL (150-450); RBC 2.31 m/uL (4.30-5.90); RDW 16.6 % (11.5-15.5); WBC 5.7 k/uL (3.8-10.6)
[2018-10-16 14:23] LABS: Partial Thromboplastin Time 24.4 sec (22.0-30.0); Prothrombin Time 10.2 sec (9.0-12.0)
[2018-10-16 14:27] LABS: Albumin 3.6 g/dL (3.5-5.0); Magnesium 1.9 mg/dL (1.6-2.3); Total Bilirubin 0.8 mg/dL (0.2-1.3)
[2018-10-16] MEDS ORDERED: LABETALOL 5 MG/ML VIAL MDV IVP STA (14:48)
[2018-10-16 16:19] VITALS: BP 176/90; PULSE 96
== END 2018-10-16 16:17 | disposition home or self-care (01) ==
LOC: EC 12:23
DX: D50.0 Iron deficiency anemia secondary to blood loss (chronic) (principal); I12.0 Hypertensive chronic kidney disease with stage 5 chronic kidney disease or end stage renal disease; N18.6 End stage renal disease; G40.909 Epilepsy, unspecified, not intractable, without status epilepticus; Z86.73 Personal history of transient ischemic attack (TIA), and cerebral infarction without residual deficits; Z87.891 Personal history of nicotine dependence; Z79.899 Other long term (current) drug therapy; Z99.2 Dependence on renal dialysis; Z53.8 Procedure and treatment not carried out for other reasons
CPT/HCPCS: 36415; 80053; 83735; 84484; 85025; 85610; 85730; 86850; 86900; 86901; 93005; 96361; 96374; 99285

== ENCOUNTER 2018-10-21 05:22 | Inpatient (IN) | payer MEDICARE, BC ==
--- NOTE | 2018-10-21 05:33 | ED ---
GI Bleed HPI - General Chief complaint: GI Bleed Stated complaint: Rectal Bleed Time Seen by Provider: 10/21/18 05:30 Source: patient Mode of arrival: ambulatory Limitations: no limitations - History of Present Illness Initial comments: Abhay is a 48-year-old male with history of end-stage renal disease on dialysis Saturday as well as a history of hemorrhoids and hemorrhoidectomy by Dr. mckee approximately 3 weeks ago. Patient followed up in the office earlier this week and was told that things had improved significantly. Patient reports that he is chronically anemic, he was seen here last week with a hemoglobin of 7.9, he reports that Saturday during dialysis he was told his hemoglobin was 7.2. - Related Data Home Medications Medication Instructions Recorded Confirmed Calcium Acetate [PhosLo] 667 mg PO TID-W/MEALS 11/22/16 10/21/18 Ergocalciferol (Vitamin D2) 50,000 unit PO Q30D 07/21/17 10/21/18 [Vitamin D2] Sevelamer [Renvela] 1,600 mg PO AC-TID 02/11/18 10/21/18 Sodium Bicarbonate Tab 650 mg PO BID 02/11/18 10/21/18 Furosemide [Lasix] 40 mg PO BID 09/03/18 10/21/18 Labetalol [Trandate] 200 mg PO BID 09/03/18 10/21/18 hydrALAZINE HCL 75 mg PO TID 09/03/18 10/21/18 Melatonin 5 mg PO HS PRN 10/21/18 10/21/18 Previous Rx's Medication Instructions Recorded Atorvastatin [Lipitor] 20 mg PO DAILY #30 tablet 07/27/17 amLODIPine [Norvasc] 5 mg PO BID tab 07/27/17 Gabapentin [Neurontin] 100 mg PO BID #60 cap 12/25/17 levETIRAcetam [Keppra] 1,000 mg PO Q12HR #120 tab 12/25/17 Acetaminophen Tab [Tylenol] 650 mg PO Q6HR PRN tab 02/03/18 Darbepoetin Jim [Aranesp] 40 mcg SQ Q7D syringe 02/03/18 Allergies Allergy/AdvReac Type Severity Reaction Status Date / Time No Known Allergies Allergy Verified 10/21/18 05:30 Review of Systems ROS Statement: Those systems with pertinent positive or pertinent negative responses have been documented in the HPI. ROS Other: All systems not noted in ROS Statement are negative. Past Medical History Past Medical History: Blood Disorder, Hypertension, Renal Disease, Seizure Disorder Additional Past Medical History / Comment(s): End-stage renal disease on hemodialysis schedule of Saturday, and Saturday, CVA no residual weakness. Anemia, recent admit for GIB with EGD and colonoscopy, History of Any Multi-Drug Resistant Organisms: None Reported Past Surgical History: Bladder Surgery, Orthopedic Surgery Additional Past Surgical History / Comment(s): fistula for dialysis. lithotripsy , kidney stents, VATS procedure, pericardial window, polypectomy last admit with colonoscopy, EGD, hermorrhoidectomy, Past Anesthesia/Blood Transfusion Reactions: No Reported Reaction Past Psychological History: No Psychological Hx Reported Smoking Status: Current every day smoker Past Alcohol Use History: None Reported Past Drug Use History: None Reported - Past Family History Father Family Medical History: Cancer, CVA/TIA Additional Family Medical History / Comment(s): Father had lymphoma. He had a CVA Mother Family Medical History: CVA/TIA Additional Family Medical History / Comment(s): Mother had a CVA. General Exam - General Exam Comments Initial Comments: Physical Exam GENERAL: Chronically ill-appearing, appears older than stated age HENT: Normocephalic, Atraumatic. EYES: PERRL, EOMI PULMONARY: Unlabored respirations. No audible rales rhonchi or wheezing was noted. CARDIOVASCULAR: There is a regular rate and rhythm without any murmurs gallops or rubs. Right forearm AV fistula ABDOMEN: Soft and nontender with normal bowel sounds. SKIN: Skin is clear with no lesions or rashes and otherwise unremarkable. : Deferred Rectal exam reveals small external hemorrhoids, palpable internal hemorrhoids with bright red blood per rectum NEUROLOGIC: Patient is alert and oriented x3. Moving all extremities spontaneously MUSCULOSKELETAL: Normal extremities with adequate strength and full range of motion. No lower extremity swelling or edema. No calf tenderness. PSYCHIATRIC: Normal psychiatric evaluation. Limitations: no limitations Limitations: no limitations Course Vital Signs 10/21/18 10/21/18 05:25 06:00 Temperature 98.5 F Pulse Rate 88 78 Respiratory 18 12 Rate Blood Pressure 178/93 154/96 O2 Sat by Pulse 97 95 Oximetry Medical Decision Making - Medical Decision Making Patient was seen and evaluated history was obtained from the patient and review of medical record This is a patient with end-stage renal disease and lower GI bleeding, patient does have a history of hip bleeding hemorrhoids in the past however this bleeding as slightly heavier and he did have a hemorrhoidectomy weeks ago with no bleeding in the past 2 weeks. Labs were ordered Hemoglobin is 7.3. Hemoglobin was 7.9 on reevaluated the patient last week Was called to the patient's bedside to evaluate a bowel movement, patient had a bowel movement into a hat at bedside, is noted to be approximately 200 mL of bright red blood with clots, there is no stool apparent in the blood Patient care was discussed with his surgeon Dr. mckee who agrees to be on consult will evaluate the patient Patient care was discussed with Dr. Gallardo who accepts the admission with a consult to surgery and nephrology admission orders were placed Patient remained hemodynamically stable though he was actively bleeding, blood is ready in the blood bank but considering his hemoglobin is at his baseline we will not initiate transfusion in the emergency department - Lab Data Result diagrams: 10/21/18 05:43 10/21/18 05:43 Lab Results 10/21/18 10/21/18 10/21/18 Range/Units 05:43 05:43 05:43 WBC 6.0 (3.8-10.6) k/uL RBC 2.24 L (4.30-5.90) m/uL Hgb 7.3 L (13.0-17.5) gm/dL Hct 21.8 L (39.0-53.0) % MCV 97.3 (80.0-100.0) fL MCH 32.7 (25.0-35.0) pg MCHC 33.6 (31.0-37.0) g/dL RDW 17.2 H (11.5-15.5) % Plt Count 149 L (150-450) k/uL Neutrophils % 74 % Lymphocytes % 14 % Monocytes % 7 % Eosinophils % 2 % Basophils % 0 % Neutrophils # 4.5 (1.3-7.7) k/uL Lymphocytes # 0.9 L (1.0-4.8) k/uL Monocytes # 0.5 (0-1.0) k/uL Eosinophils # 0.1 (0-0.7) k/uL Basophils # 0.0 (0-0.2) k/uL Anisocytosis Slight Macrocytosis Slight PT (9.0-12.0) sec INR (<1.2) APTT (22.0-30.0) sec Sodium 137 (137-145) mmol/L Potassium 4.0 (3.5-5.1) mmol/L Chloride 93 L (98-107) mmol/L Carbon Dioxide 34 H (22-30) mmol/L Anion Gap 10 mmol/L BUN 20 (9-20) mg/dL Creatinine 4.85 H (0.66-1.25) mg/dL Est GFR (CKD-EPI)AfAm 15 (>60 ml/min/1.73 sqM) Est GFR (CKD-EPI)NonAf 13 (>60 ml/min/1.73 sqM) Glucose 104 H (74-99) mg/dL Calcium 8.9 (8.4-10.2) mg/dL Total Bilirubin 0.6 (0.2-1.3) mg/dL AST 26 (17-59) U/L ALT 39 (21-72) U/L Alkaline Phosphatase 79 (38-126) U/L Troponin I (0.000-0.034) ng/mL Total Protein 6.1 L (6.3-8.2) g/dL Albumin 3.7 (3.5-5.0) g/dL Stool Occult Blood (Negative) Blood Type O Positive Blood Type Recheck No Antibody Screen NEGATIVE Crossmatch See Detail Spec Expiration Date 10/24/20180 10/21/18 10/21/18 10/21/18 Range/Units 05:43 05:43 05:43 WBC (3.8-10.6) k/uL RBC (4.30-5.90) m/uL Hgb (13.0-17.5) gm/dL Hct (39.0-53.0) % MCV (80.0-100.0) fL MCH (25.0-35.0) pg MCHC (31.0-37.0) g/dL RDW (11.5-15.5) % Plt Count (150-450) k/uL Neutrophils % % Lymphocytes % % Monocytes % % Eosinophils % % Basophils % % Neutrophils # (1.3-7.7) k/uL Lymphocytes # (1.0-4.8) k/uL Monocytes # (0-1.0) k/uL Eosinophils # (0-0.7) k/uL Basophils # (0-0.2) k/uL Anisocytosis Macrocytosis PT 10.4 (9.0-12.0) sec INR 1.1 (<1.2) APTT 24.0 (22.0-30.0) sec Sodium (137-145) mmol/L Potassium (3.5-5.1) mmol/L Chloride (98-107) mmol/L Carbon Dioxide (22-30) mmol/L Anion Gap mmol/L BUN (9-20) mg/dL Creatinine (0.66-1.25) mg/dL Est GFR (CKD-EPI)AfAm (>60 ml/min/1.73 sqM) Est GFR (CKD-EPI)NonAf (>60 ml/min/1.73 sqM) Glucose (74-99) mg/dL Calcium (8.4-10.2) mg/dL Total Bilirubin (0.2-1.3) mg/dL AST (17-59) U/L ALT (21-72) U/L Alkaline Phosphatase (38-126) U/L Troponin I 0.014 (0.000-0.034) ng/mL Total Protein (6.3-8.2) g/dL Albumin (3.5-5.0) g/dL Stool Occult Blood Positive (Negative) Blood Type Blood Type Recheck Antibody Screen Crossmatch Spec Expiration Date Disposition Clinical Impression: Bright red blood per rectum, Chronic anemia Disposition: ADMITTED IP TO THIS HOSP Referrals: Jaylen Holguin MD [Primary Care Provider] - 1-2 days
[2018-10-21 06:03] LABS: Anisocytosis Slight; Basophils % (A) 0 %; Eosinophils # (A) 0.1 k/uL (0-0.7); Eosinophils % (A) 2 %; HCT 21.8 % (39.0-53.0); HGB 7.3 gm/dL (13.0-17.5); Lymphocytes # (A) 0.9 k/uL (1.0-4.8); Lymphocytes % (A) 14 %; MCH 32.7 pg (25.0-35.0); MCHC 33.6 g/dL (31.0-37.0); MCV 97.3 fL (80.0-100.0); Macrocytosis Slight; Mean Platelet Volume 7.4; Monocytes # (A) 0.5 k/uL (0-1.0); Monocytes % (A) 7 %; Neutrophils # (A) 4.5 k/uL (1.3-7.7); Neutrophils % (A) 74 %; Platelet Count 149 k/uL (150-450); RBC 2.24 m/uL (4.30-5.90); RDW 17.2 % (11.5-15.5)
[2018-10-21 06:14] LABS: Albumin 3.7 g/dL (3.5-5.0); Calcium 8.9 mg/dL (8.4-10.2); Total Bilirubin 0.6 mg/dL (0.2-1.3); Total Protein 6.1 g/dL (6.3-8.2)
[2018-10-21 06:17] LABS: INR 1.1 (<1.2); Prothrombin Time 10.4 sec (9.0-12.0)
[2018-10-21] MEDS ORDERED: NALOXONE 0.4 MG/ML 1 ML VIAL IV PRN (07:00)
[2018-10-21 09:18] LABS: Anisocytosis Slight; Basophils % (A) 0 %; Eosinophils # (A) 0.1 k/uL (0-0.7); Eosinophils % (A) 2 %; HCT 20.3 % (39.0-53.0); HGB 7.1 gm/dL (13.0-17.5); Lymphocytes # (A) 0.9 k/uL (1.0-4.8); Lymphocytes % (A) 15 %; MCHC 34.9 g/dL (31.0-37.0); MCV 97.2 fL (80.0-100.0); Macrocytosis Slight; Mean Platelet Volume 7.1; Monocytes # (A) 0.4 k/uL (0-1.0); Monocytes % (A) 6 %; Neutrophils # (A) 4.4 k/uL (1.3-7.7); Neutrophils % (A) 74 %; Platelet Count 166 k/uL (150-450); RBC 2.08 m/uL (4.30-5.90); RDW 17.5 % (11.5-15.5)
--- NOTE | 2018-10-21 10:27 | P.GSCN ---
History of Present Illness Consult date: 10/21/18 History of present illness: This is a 48-year-old male who is known to me secondary to history of hemorrhoidectomy 6 weeks ago. He states that 2 days ago he began experiencing midepigastric pain. He then noticed last night several episodes of clotted blood and bright red blood. He is a dialysis patient and recently had dialysis yesterday. He has a history of upper GI bleed and bleeding ulcer. He is not currently on any PPI. He denies any pain with his bowel movements. He has no other complaints at this time. 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 History of Any Multi-Drug Resistant Organisms: None Reported Past Surgical History: Bladder Surgery, Orthopedic Surgery Additional Past Surgical History / Comment(s): Hemorrhoidectomy, EGDs, colonoscopies, L sided Vats with decortication, pericardial window, hemodialysis fistula, cystoscopies/lithotripsies, bilateral renal stents, double J catheter. Past Anesthesia/Blood Transfusion Reactions: No Reported Reaction Additional Past Anesthesia/Blood Transfusion Reaction / Comm: Pt has received blood in past without reaction. Past Psychological History: No Psychological Hx Reported Additional Psychological History / Comment(s): Pt resides with his spouse of 17 yrs. He drives rarely. His spouse takes him to [employer] or his sister does. He is otherwise independent. Smoking Status: Current every day smoker Past Alcohol Use History: None Reported Additional Past Alcohol Use History / Comment(s): Pt started smoking in 1984 at 1-1.5 packs per day. He denies any marijuana, street drug use or alcohol use. Past Drug Use History: None Reported - Past Family History Father Family Medical History: Cancer, CVA/TIA Additional Family Medical History / Comment(s): Father had lymphoma. He had a CVA Mother Family Medical History: CVA/TIA Additional Family Medical History / Comment(s): Mother had a CVA. Medications and Allergies Home Medications Medication Instructions Recorded Confirmed Type Calcium Acetate [PhosLo] 667 mg PO TID-W/MEALS 11/22/16 10/21/18 History Atorvastatin [Lipitor] 20 mg PO DAILY #30 tablet 07/27/17 10/21/18 Rx amLODIPine [Norvasc] 5 mg PO BID tab 07/27/17 10/21/18 Rx Gabapentin [Neurontin] 100 mg PO BID #60 cap 12/25/17 10/21/18 Rx levETIRAcetam [Keppra] 1,000 mg PO Q12HR #120 tab 12/25/17 10/21/18 Rx Sodium Bicarbonate Tab 650 mg PO TID 02/11/18 10/21/18 History Furosemide [Lasix] 40 mg PO BID 09/03/18 10/21/18 History Labetalol [Trandate] 200 mg PO BID 09/03/18 10/21/18 History hydrALAZINE HCL 75 mg PO TID 09/03/18 10/21/18 History Allergies Allergy/AdvReac Type Severity Reaction Status Date / Time No Known Allergies Allergy Verified 10/21/18 07:19 Surgical - Exam Osteopathic Statement: *. No significant issues noted on an osteopathic structural exam other than those noted in the History and Physical/Consult. Vital Signs Temp Pulse Resp BP Pulse Ox 98.5 F 88 18 178/93 97 10/21/18 05:25 10/21/18 05:25 10/21/18 05:25 10/21/18 05:25 10/21/18 05:25 - General well developed, well nourished, no distress - Neck trachea midline - Respiratory normal expansion, normal respiratory effort - Cardiovascular Rhythm: regular - Abdomen Soft, nondistended, mild TTP mid epigastric - Rectum Rectal exam was performed hemorrhoidectomy site is well healed there is no active bleeding from hemorrhoids visible at this time. - Neurologic normal coordination, normal sensation - Psychiatric oriented to time, oriented to person, oriented to place Results - Labs 10/21/18 09:08 10/21/18 05:43 Abnormal Lab Results - Last 24 Hours (Table) 10/21/18 10/21/18 10/21/18 Range/Units 05:43 05:43 05:43 RBC 2.24 L (4.30-5.90) m/uL Hgb 7.3 L (13.0-17.5) gm/dL Hct 21.8 L (39.0-53.0) % RDW 17.2 H (11.5-15.5) % Plt Count 149 L (150-450) k/uL Lymphocytes # 0.9 L (1.0-4.8) k/uL Chloride 93 L (98-107) mmol/L Carbon Dioxide 34 H (22-30) mmol/L Creatinine 4.85 H (0.66-1.25) mg/dL Glucose 104 H (74-99) mg/dL Total Protein 6.1 L (6.3-8.2) g/dL Crossmatch See Detail 10/21/18 Range/Units 09:08 RBC 2.08 L (4.30-5.90) m/uL Hgb 7.1 L (13.0-17.5) gm/dL Hct 20.3 L (39.0-53.0) % RDW 17.5 H (11.5-15.5) % Plt Count (150-450) k/uL Lymphocytes # 0.9 L (1.0-4.8) k/uL Chloride (98-107) mmol/L Carbon Dioxide (22-30) mmol/L Creatinine (0.66-1.25) mg/dL Glucose (74-99) mg/dL Total Protein (6.3-8.2) g/dL Crossmatch Diabetes panel 10/21/18 Range/Units 05:43 Sodium 137 (137-145) mmol/L Potassium 4.0 (3.5-5.1) mmol/L Chloride 93 L (98-107) mmol/L Carbon Dioxide 34 H (22-30) mmol/L BUN 20 (9-20) mg/dL Creatinine 4.85 H (0.66-1.25) mg/dL Glucose 104 H (74-99) mg/dL Calcium 8.9 (8.4-10.2) mg/dL AST 26 (17-59) U/L ALT 39 (21-72) U/L Alkaline Phosphatase 79 (38-126) U/L Total Protein 6.1 L (6.3-8.2) g/dL Albumin 3.7 (3.5-5.0) g/dL Calcium panel 10/21/18 Range/Units 05:43 Calcium 8.9 (8.4-10.2) mg/dL Albumin 3.7 (3.5-5.0) g/dL Pituitary panel 10/21/18 Range/Units 05:43 Sodium 137 (137-145) mmol/L Potassium 4.0 (3.5-5.1) mmol/L Chloride 93 L (98-107) mmol/L Carbon Dioxide 34 H (22-30) mmol/L BUN 20 (9-20) mg/dL Creatinine 4.85 H (0.66-1.25) mg/dL Glucose 104 H (74-99) mg/dL Calcium 8.9 (8.4-10.2) mg/dL Adrenal panel 10/21/18 Range/Units 05:43 Sodium 137 (137-145) mmol/L Potassium 4.0 (3.5-5.1) mmol/L Chloride 93 L (98-107) mmol/L Carbon Dioxide 34 H (22-30) mmol/L BUN 20 (9-20) mg/dL Creatinine 4.85 H (0.66-1.25) mg/dL Glucose 104 H (74-99) mg/dL Calcium 8.9 (8.4-10.2) mg/dL Total Bilirubin 0.6 (0.2-1.3) mg/dL AST 26 (17-59) U/L ALT 39 (21-72) U/L Alkaline Phosphatase 79 (38-126) U/L Total Protein 6.1 L (6.3-8.2) g/dL Albumin 3.7 (3.5-5.0) g/dL Assessment and Plan Assessment: GI bleed Plan: There is no visible active bleeding or signs of recent bleeding from hemorrhoidectomy site. The patient does have a history of a bleeding ulcer 1 year ago. There is a possibility this is secondary to upper GI bleed. Recommend PPI serial hemoglobins transfuse when necessary. Follow up GI recs
[2018-10-21 10:43] LABS: Glucose,Whole Blood 95 mg/dL (75-99)
[2018-10-21] MEDS: levETIRAcetam 500 MG TAB PO SCH ×2 (11:07→21:18)
[2018-10-21] MEDS: LABETALOL 200 MG TAB PO SCH ×2 (11:07→21:18)
[2018-10-21] MEDS: GABAPENTIN 100 MG CAP PO SCH ×2 (11:07→21:18)
[2018-10-21] MEDS: amLODIPine 5 MG TAB PO SCH ×3 (11:07→23:21)
[2018-10-21] MEDS: SODIUM BICARBONATE TAB 650 MG TAB PO SCH ×3 (11:08→21:19)
[2018-10-21] MEDS: CALCIUM ACETATE 667 MG CAP PO SCH ×2 (12:41→17:56)
[2018-10-21] MEDS: hydrALAZINE HCL 25 MG TAB PO SCH ×3 (12:41→23:59)
--- NOTE | 2018-10-21 15:17 | P.HPIM ---
History of Present Illness H&P Date: 10/21/18 Chief Complaint: Rectal bleeding This is a 48-year-old male patient of Dr. Holguin with past medical history of end-stage renal disease on hemodialysis 3 times weekly- Mo, We, Fr, hypertension, seizure disorder, left thalamus stroke, previous admission for acute hypoxic respiratory failure secondary to fluid overload from missing dialysis treatments requiring mechanical ventilation, chronic thrombocytopenia, tobacco use and dependence paroxysmal atrial fibrillation in February 2018. Patient underwent hemorrhoid ectomy [address] Biggs and started having some mid epigastric pain 2 days ago followed by last night having bleeding and blood clots rectally. He did attend his hemodialysis treatment yesterday. He has been on dialysis for 9 years now. He came into [facility] emergency center for evaluation. Hemoglobin 7.3 and baseline is usually 8, platelet count is 166, creatinine 4.85. Stool for occult blood was positive and troponin negative. Due to active rectal bleeding, patient was admitted to the intensive care unit. No plan for transfusion until patient is less than 7. Consult in place for Dr. Doss and nephrology. Patient has been seen by Dr. biggs and GI consult was added. Patient does have history of bleeding ulcer 1 year ago. Review of Systems All systems: negative Constitutional: Denies chills, Denies fatigue, Denies fever, Denies poor appetite, Denies weight loss Eyes: denies blurred vision, denies pain Ears, nose, mouth and throat: Denies dysphagia, Denies headache, Denies sore throat, Denies vertigo Cardiovascular: Denies chest pain, Denies decreased exercise tolerance, Denies dyspnea on exertion, Denies edema, Denies leg edema, Denies orthopnea, Denies shortness of breath, Denies syncope Respiratory: Denies cough, Denies cough with sputum, Denies dyspnea, Denies excessive sputum, Denies hemoptysis, Denies home oxygen, Denies wheezing Gastrointestinal: Reports abdominal pain, Reports melena, Denies diarrhea, Denies nausea, Denies vomiting Musculoskeletal: Denies frequent falls, Denies gait dysfunction, Denies muscle weakness, Denies myalgias Integumentary: Denies pruritus, Denies rash, Denies wounds Neurological: Denies aphasia, Denies change in mentation, Denies confusion, Denies head injury, Denies headaches, Denies numbness, Denies seizures, Denies weakness Psychiatric: Denies anxiety, Denies depression Endocrine: Denies fatigue, Denies weight change Past Medical History Past Medical History: Atrial Fibrillation, Blood Disorder, CVA/TIA, Eye Disorder , GI Bleed, Hyperlipidemia, Hypertension, Renal Disease, Seizure Disorder Additional Past Medical History / Comment(s): End-stage renal disease on hemodialysis schedule of Saturday, and Saturday with last dialysis , urolithiasis/nephrolithiasis, acute hypoxic respiratory failure after missed dialysis, paroxysmal Afib, chronic anemia, chronic thrombocytopenia, lower GI bleed, duodenal ulcer, seizures with last seizures 12/2017, 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 History of Any Multi-Drug Resistant Organisms: None Reported Past Surgical History: Bladder Surgery, Orthopedic Surgery Additional Past Surgical History / Comment(s): Hemorrhoidectomy, EGDs, colonoscopies, L sided Vats with decortication, pericardial window, hemodialysis fistula, cystoscopies/lithotripsies, bilateral renal stents, double J catheter. Past Anesthesia/Blood Transfusion Reactions: No Reported Reaction Additional Past Anesthesia/Blood Transfusion Reaction / Comment(s): Pt has received blood in past without reaction. Past Psychological History: No Psychological Hx Reported Additional Psychological History / Comment(s): Pt resides with his spouse of 17 yrs. He drives rarely. His spouse takes him to [employer] or his sister does. He is otherwise independent. Smoking Status: Current every day smoker Past Alcohol Use History: None Reported Additional Past Alcohol Use History / Comment(s): Pt started smoking in 1984 at 1-1.5 packs per day. He denies any marijuana, street drug use or alcohol use. Past Drug Use History: None Reported - Past Family History Father Family Medical History: Cancer, CVA/TIA Additional Family Medical History / Comment(s): Father had lymphoma. He had a CVA Mother Family Medical History: CVA/TIA Additional Family Medical History / Comment(s): Mother had a CVA. Medications and Allergies Home Medications Medication Instructions Recorded Confirmed Type Calcium Acetate [PhosLo] 667 mg PO TID-W/MEALS 11/22/16 10/21/18 History Atorvastatin [Lipitor] 20 mg PO DAILY #30 tablet 07/27/17 10/21/18 Rx amLODIPine [Norvasc] 5 mg PO BID tab 07/27/17 10/21/18 Rx Gabapentin [Neurontin] 100 mg PO BID #60 cap 12/25/17 10/21/18 Rx levETIRAcetam [Keppra] 1,000 mg PO Q12HR #120 tab 12/25/17 10/21/18 Rx Sodium Bicarbonate Tab 650 mg PO TID 02/11/18 10/21/18 History Furosemide [Lasix] 40 mg PO BID 09/03/18 10/21/18 History Labetalol [Trandate] 200 mg PO BID 09/03/18 10/21/18 History hydrALAZINE HCL 75 mg PO TID 09/03/18 10/21/18 History Allergies Allergy/AdvReac Type Severity Reaction Status Date / Time No Known Allergies Allergy Verified 10/21/18 07:19 Physical Exam Vitals: Vital Signs Temp Pulse Resp BP Pulse Ox 10/21/18 10:29 98.7 F 10/21/18 10:00 78 18 169/78 96 10/21/18 09:30 77 17 154/81 98 10/21/18 08:30 85 18 152/79 99 10/21/18 07:00 82 16 173/103 97 10/21/18 06:00 78 12 154/96 95 10/21/18 05:25 98.5 F 88 18 178/93 97 Intake and Output 10/20/18 10/21/18 10/21/18 22:59 06:59 14:59 Other: Weight 70.307 kg Gen: This is a 48-year-old male patient seen in the ER on the ER stretcher and appears to be comfortable and in no acute distress HEENT: Head is atraumatic, normocephalic. Pupils equal, round. Sclerae is anicteric. NECK: Supple. No JVD. No lymphadenopathy. No thyromegaly. LUNGS: Clear to auscultation. No wheezes or rhonchi. No intercostal retractions. HEART: Regular rate and rhythm. Systolic murmur. ABDOMEN: Soft. Bowel sounds are present. No masses. Mild left-sided abdominal tenderness. No epigastric tenderness. No left lower quadrant tenderness. EXTREMITIES: No pedal edema. No calf tenderness. No lower extremity wounds. NEUROLOGICAL: Patient is awake, alert and oriented x3. Cranial nerves 2 through 12 are grossly intact. Results CBC & Chem 7: 10/21/18 09:08 10/21/18 05:43 Labs: Abnormal Lab Results - Last 24 Hours (Table) 10/21/18 10/21/18 10/21/18 Range/Units 05:43 05:43 05:43 RBC 2.24 L (4.30-5.90) m/uL Hgb 7.3 L (13.0-17.5) gm/dL Hct 21.8 L (39.0-53.0) % RDW 17.2 H (11.5-15.5) % Plt Count 149 L (150-450) k/uL Lymphocytes # 0.9 L (1.0-4.8) k/uL Chloride 93 L (98-107) mmol/L Carbon Dioxide 34 H (22-30) mmol/L Creatinine 4.85 H (0.66-1.25) mg/dL Glucose 104 H (74-99) mg/dL Total Protein 6.1 L (6.3-8.2) g/dL Crossmatch See Detail 10/21/18 Range/Units 09:08 RBC 2.08 L (4.30-5.90) m/uL Hgb 7.1 L (13.0-17.5) gm/dL Hct 20.3 L (39.0-53.0) % RDW 17.5 H (11.5-15.5) % Plt Count (150-450) k/uL Lymphocytes # 0.9 L (1.0-4.8) k/uL Chloride (98-107) mmol/L Carbon Dioxide (22-30) mmol/L Creatinine (0.66-1.25) mg/dL Glucose (74-99) mg/dL Total Protein (6.3-8.2) g/dL Crossmatch Thrombosis Risk Factor Assmnt - DVT/VTE Prophylaxis DVT/VTE Prophylaxis: Mechanical Prophylaxis ordered - Choose All That Apply Any of the Below Risk Factors Present?: Yes Each Factor Represents 1 point: Age 41-60 years, Obesity (BMI >25) Other Risk Factors: No Other congenital or acquired thrombophilia - If yes, enter type in comment: No Thrombosis Risk Factor Assessment Total Risk Factor Score: 2 Thrombosis Risk Factor Assessment Level: Low Risk Assessment and Plan Plan: 1. Acute rectal bleeding with possible acute blood loss anemia possible source includes bleeding ulcer or bleeding from recent hemorrhoidectomy. Consult with Dr. Biggs appreciated. GI consult added. Patient will be transfused if hemoglobin less than 7. Patient will be placed on Protonix daily. 2. History of anemia of chronic disease with baseline hemoglobin of 8. 3. End-stage renal disease on hemodialysis Saturday and Saturday. Consult with Dr. Figueroa. Hemodialysis for tomorrow. Continue sodium bicarb, PhosLo. 4. Hypertension, hypertensive cardiovascular disease. Continue Norvasc 5 mg twice daily, labetalol 200 mg twice daily, hydralazine 75 mg 3 times daily. 5. History of seizure disorder. Continue Keppra 1000 mg twice daily. 6. History of empyema status post VATS and pericardial window. Respiratory status is stable. 7. History of left thalamus stroke. Continue Lipitor 20 mg daily for secondary prevention. 8. Tobacco use and dependence. Nicotine patch. 9. Chronic thrombocytopenia. Currently stable. 10. DVT prophylaxis. KP hose and SCDs. 11. GI prophylaxis. Protonix 11. CODE STATUS: Full code. Patient will be admitted to the hospital for a minimum of 2 night stay. Discharge plan: Return home Impression and plan of care have been directed as dictated by the signing physician. Doretha Brumfield nurse practitioner acting as scribe for signing physician.
[2018-10-21] MEDS: PANTOPRAZOLE 40 MG/10 ML VIAL IVP SCH (16:07)
[2018-10-21 16:24] LABS: Anisocytosis Slight; MCH 33.8 pg (25.0-35.0); MCHC 34.2 g/dL (31.0-37.0); MCV 98.9 fL (80.0-100.0); Macrocytosis Slight; Platelet Count 201 k/uL (150-450); RBC 2.01 m/uL (4.30-5.90); RDW 17.7 % (11.5-15.5); WBC 7.7 k/uL (3.8-10.6)
[2018-10-21] MEDS: NICOTINE 21MG/24HR PATCH TRANSDERM SCH (16:30)
[2018-10-21 16:42] LABS: HGB 6.8 gm/dL (13.0-17.5)
[2018-10-21 16:43] LABS: HCT 19.9 % (39.0-53.0)
--- NOTE | 2018-10-21 17:44 | P.CNPUL ---
<Kerry Kiran M - Last Filed: 10/21/18 17:24> History of Present Illness Consult date: 10/21/18 Requesting physician: Joanna Mercer Reason for consult: other Chief complaint: Bright red blood per rectum, anemia History of present illness: This is a 48-year-old white male patient of Dr. Holguin, no came into the emergency department on 10/21/2018 for evaluation of bright red blood per rectum , and clots since yesterday, patient had 7 or 8 episodes last night, and this morning. He had a recent history of hemorrhoidectomy [address] Biggs. Does have chronic anemia. He has had previous GI bleeding, patient has had previous EGDs and colonoscopies, most recent one in January and it was noted to have a 1 cm duodenal ulcer, some gastritis, and colonoscopy revealed 5 polyps largest one measuring 2 cm, all of which were removed, and biopsies revealed tubular adenoma. Patient did have previous blood transfusions for active GI bleeding. Other medical history includes stage renal disease on hemodialysis on Saturday schedule. 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 Lab work on admission showed WBC of 5.7, hemoglobin of 7.9, platelet count of 141, INR is 1.0, sodium was 137, potassium is 4.0, chloride is 95 CO2 is 34, B1 is 20 and creatinine is 4.69. Troponins were 0.032, is 0.014, stool occult blood was positive. Patient was having some mild abdominal cramping, and lightheadedness and dizziness, denied any dyspnea or chest pain. Patient had 3 more episodes of blood clots and bright red per rectum while inpatient this afternoon. GI service has been consulted, patient has been started on PPI therapy, hemodynamic patient remains stable, non-tachycardic, denies any acute complaints , room air pulse ox is 94%, blood pressure is 155/92. Lung sounds are clear, diminished at the bases. Recheck blood work this afternoon showed hemoglobin of 6.8. One unit of packed red blood cells is on hold. Review of Systems All systems: negative Constitutional: Denies chills, Denies fever Eyes: denies blurred vision, denies pain Ears, nose, mouth and throat: Denies headache, Denies sore throat Cardiovascular: Denies chest pain, Denies shortness of breath Respiratory: Denies cough Gastrointestinal: Denies abdominal pain, Denies diarrhea, Denies nausea, Denies vomiting Musculoskeletal: Denies myalgias Integumentary: Denies pruritus, Denies rash Neurological: Denies numbness, Denies weakness Psychiatric: Denies anxiety, Denies depression Endocrine: Denies fatigue, Denies weight change Past Medical History Past Medical History: Atrial Fibrillation, Blood Disorder, CVA/TIA, Eye Disorder , GI Bleed, Hyperlipidemia, Hypertension, Renal Disease, Seizure Disorder Additional Past Medical History / Comment(s): End-stage renal disease on hemodialysis schedule of Saturday, and Saturday with last dialysis , urolithiasis/nephrolithiasis, acute hypoxic respiratory failure after missed dialysis, paroxysmal Afib, chronic anemia, chronic thrombocytopenia, lower GI bleed, duodenal ulcer, seizures with last seizures 12/2017, 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 History of Any Multi-Drug Resistant Organisms: None Reported Past Surgical History: Bladder Surgery, Orthopedic Surgery Additional Past Surgical History / Comment(s): Hemorrhoidectomy, EGDs, colonoscopies, L sided Vats with decortication, pericardial window, hemodialysis fistula, cystoscopies/lithotripsies, bilateral renal stents, double J catheter. Past Anesthesia/Blood Transfusion Reactions: No Reported Reaction Additional Past Anesthesia/Blood Transfusion Reaction / Comment(s): Pt has received blood in past without reaction. Past Psychological History: No Psychological Hx Reported Additional Psychological History / Comment(s): Pt resides with his spouse of 17 yrs. He drives rarely. His spouse takes him to [place] or his sister does. He is otherwise independent. Smoking Status: Current every day smoker Past Alcohol Use History: None Reported Additional Past Alcohol Use History / Comment(s): Pt started smoking in 1984 at 1-1.5 packs per day. He denies any marijuana, street drug use or alcohol use. Past Drug Use History: None Reported - Past Family History Father Family Medical History: Cancer, CVA/TIA Additional Family Medical History / Comment(s): Father had lymphoma. He had a CVA Mother Family Medical History: CVA/TIA Additional Family Medical History / Comment(s): Mother had a CVA. Medications and Allergies Home Medications Medication Instructions Recorded Confirmed Type Calcium Acetate [PhosLo] 667 mg PO TID-W/MEALS 11/22/16 10/21/18 History Atorvastatin [Lipitor] 20 mg PO DAILY #30 tablet 07/27/17 10/21/18 Rx amLODIPine [Norvasc] 5 mg PO BID tab 07/27/17 10/21/18 Rx Gabapentin [Neurontin] 100 mg PO BID #60 cap 12/25/17 10/21/18 Rx levETIRAcetam [Keppra] 1,000 mg PO Q12HR #120 tab 12/25/17 10/21/18 Rx Sodium Bicarbonate Tab 650 mg PO TID 02/11/18 10/21/18 History Furosemide [Lasix] 40 mg PO BID 09/03/18 10/21/18 History Labetalol [Trandate] 200 mg PO BID 09/03/18 10/21/18 History hydrALAZINE HCL 75 mg PO TID 09/03/18 10/21/18 History Allergies Allergy/AdvReac Type Severity Reaction Status Date / Time No Known Allergies Allergy Verified 10/21/18 07:19 Physical Exam Vitals: Vital Signs Temp Pulse Resp BP Pulse Ox 10/21/18 16:30 74 9 L 133/90 93 L 10/21/18 16:00 74 10 L 147/85 96 10/21/18 15:30 71 4 L 154/101 96 10/21/18 15:00 67 18 156/94 92 L 10/21/18 14:30 74 13 155/92 94 L 10/21/18 14:00 80 13 162/112 93 L 10/21/18 13:30 69 12 146/84 99 10/21/18 13:00 70 8 L 146/88 96 10/21/18 12:00 67 12 166/98 94 L 10/21/18 11:00 76 11 L 174/98 96 10/21/18 10:43 98.0 F 75 10 L 174/98 96 10/21/18 10:29 98.7 F 10/21/18 10:00 78 18 169/78 96 10/21/18 09:30 77 17 154/81 98 10/21/18 08:30 85 18 152/79 99 10/21/18 07:00 82 16 173/103 97 10/21/18 06:00 78 12 154/96 95 10/21/18 05:25 98.5 F 88 18 178/93 97 Intake and Output 10/21/18 10/21/18 10/21/18 06:59 14:59 22:59 Output Total 200 Balance -200 Output: Urine 0 Stool 200 Other: Voiding Method Toilet # Voids 1 1 # Bowel Movements 1 1 Weight 70.307 kg 64.2 kg GENERAL EXAM: Alert, pleasant, 48-year-old white male, sleeping comfortable in no apparent distress. HEAD: Normocephalic/atraumatic. EYES: Normal reaction of pupils, equal size. Conjunctiva pink, sclera white. NOSE: Clear with pink turbinates. THROAT: No erythema or exudates. NECK: No masses, no JVD, no thyroid enlargement, no adenopathy. CHEST: No chest wall deformity. Symmetrical expansion. LUNGS: Equal air entry with no crackles, wheeze, rhonchi or dullness. CVS: Regular rate and rhythm, normal S1 and S2, no gallops, no murmurs, no rubs ABDOMEN: Soft, nontender. No hepatosplenomegaly, normal bowel sounds, no guarding or rigidity. EXTREMITIES: No clubbing, no edema, no cyanosis, 2+ pulses and upper and lower extremities. MUSCULOSKELETAL: Muscle strength and tone normal. SPINE: No scoliosis or deformity SKIN: No rashes CENTRAL NERVOUS SYSTEM: Alert and oriented -3. No focal deficits, tone is normal in all 4 extremities. PSYCHIATRIC: Alert and oriented -3. Appropriate affect. Intact judgment and insight. Results - Laboratory Findings CBC and BMP: 10/21/18 15:54 10/21/18 05:43 PT/INR, D-dimer PT 10.4 sec (9.0-12.0) 10/21/18 05:43 INR 1.1 (<1.2) 10/21/18 05:43 Abnormal lab findings: Abnormal Labs 10/21/18 10/21/18 10/21/18 05:43 05:43 05:43 RBC 2.24 L Hgb 7.3 L Hct 21.8 L RDW 17.2 H Plt Count 149 L Lymphocytes # 0.9 L Chloride 93 L Carbon Dioxide 34 H Creatinine 4.85 H Glucose 104 H Total Protein 6.1 L Crossmatch See Detail 10/21/18 10/21/18 09:08 15:54 RBC 2.08 L 2.01 L Hgb 7.1 L 6.8 L* Hct 20.3 L 19.9 L* RDW 17.5 H 17.7 H Plt Count Lymphocytes # 0.9 L Chloride Carbon Dioxide Creatinine Glucose Total Protein Crossmatch - Diagnostic Findings Additional studies: EKG reviewed Assessment and Plan Plan: Assessment: #1. Acute GI blood loss anemia related to acute GI bleeding #2. Recent hemorrhoidectomy 3 weeks ago #3. Chronic anemia of end-stage renal failure #4. Previous history of GI bleeding, EGD and colonoscopy in January 2018 showed a duodenal ulcer, gastritis, and 5 polyps, tumor removed and biopsies revealed tubular adenoma #5. End-stage renal disease on hemodialysis on Saturday #6. Hypertension, hyperlipidemia #7. Seizure disorder #8. Previous history of CVA with no residual #9. Chronic and ongoing nicotine dependence #10. Previous episodes of pneumonia, and history of parapneumonic effusion requiring thoracoscopy and decortication #11. History of pericardial effusion status post pericardial window in January 2018 Plan: Patient did have another 3 episodes of small clots and bright red blood per rectum, he was evaluated by surgery. GI service, will start patient on oral diet , hemodynamically he remains stable, non-tachycardic, and non-hypotensive, he remains on room air, no chest pain or dyspnea. Continue with IV Protonix, 1 unit of blood is on hold. Continue with serial H&H's. Patient will remain in the intensive care unit tonight. We'll continue to follow I performed a history & physical examination of the patient and discussed their management with my nurse practitioner, Kerry Kiran. I reviewed the nurse practitioner's note and agree with the documented findings and plan of care. Lung sounds are positive for clear lung sounds. The findings and the impression was discussed with the patient. I attest to the documentation by the nurse practitioner. Time with Patient: Greater than 30 <Barbara Doss - Last Filed: 10/21/18 19:54> Physical Exam Vitals: Vital Signs Temp Pulse Resp BP Pulse Ox 10/21/18 19:30 82 11 L 155/92 95 10/21/18 19:00 80 14 171/100 97 10/21/18 18:52 98.3 F 80 12 171/80 10/21/18 18:30 89 13 154/90 96 10/21/18 18:26 98.3 F 90 12 154/81 10/21/18 18:16 98.2 F 82 14 154/90 99 10/21/18 18:00 89 24 157/92 83 L 10/21/18 17:30 75 5 L 157/92 97 10/21/18 17:00 79 6 L 133/90 98 10/21/18 16:30 74 9 L 133/90 93 L 10/21/18 16:00 74 10 L 147/85 96 10/21/18 15:30 71 4 L 154/101 96 10/21/18 15:00 67 18 156/94 92 L 10/21/18 14:30 74 13 155/92 94 L 10/21/18 14:00 80 13 162/112 93 L 10/21/18 13:30 69 12 146/84 99 10/21/18 13:00 70 8 L 146/88 96 10/21/18 12:00 67 12 166/98 94 L 10/21/18 11:00 76 11 L 174/98 96 10/21/18 10:43 98.0 F 75 10 L 174/98 96 10/21/18 10:29 98.7 F 10/21/18 10:00 78 18 169/78 96 10/21/18 09:30 77 17 154/81 98 10/21/18 08:30 85 18 152/79 99 10/21/18 07:00 82 16 173/103 97 10/21/18 06:00 78 12 154/96 95 10/21/18 05:25 98.5 F 88 18 178/93 97 Intake and Output 10/21/18 10/21/18 10/21/18 06:59 14:59 22:59 Intake Total 540 Output Total 200 Balance -200 540 Intake: Oral 540 Blood Product 0 Rc Pheresis As-3 Unit 0 [id number] Output: Urine 0 Stool 200 Other: Voiding Method Toilet # Voids 1 1 # Bowel Movements 1 1 Weight 70.307 kg 64.2 kg 64.2 kg Results - Laboratory Findings CBC and BMP: 10/21/18 15:54 10/21/18 05:43 PT/INR, D-dimer PT 10.4 sec (9.0-12.0) 10/21/18 05:43 INR 1.1 (<1.2) 10/21/18 05:43 Abnormal lab findings: Abnormal Labs 10/21/18 10/21/18 10/21/18 05:43 05:43 05:43 RBC 2.24 L Hgb 7.3 L Hct 21.8 L RDW 17.2 H Plt Count 149 L Lymphocytes # 0.9 L Chloride 93 L Carbon Dioxide 34 H Creatinine 4.85 H Glucose 104 H Total Protein 6.1 L Crossmatch See Detail 10/21/18 10/21/18 09:08 15:54 RBC 2.08 L 2.01 L Hgb 7.1 L 6.8 L* Hct 20.3 L 19.9 L* RDW 17.5 H 17.7 H Plt Count Lymphocytes # 0.9 L Chloride Carbon Dioxide Creatinine Glucose Total Protein Crossmatch Assessment and Plan Plan: The patient was seen in intensive care unit along with the nurse practitioner. No active bleeding at this point in time. Receiving a unit of packed RBC. Will be given DDAVP 0.3 mcg per KG. He will be undergoing dialysis tomorrow and following that he will be having an EGD and a limited colonoscopy. No bleeding from the hemorrhoidal site. The patient was even was a by general surgery. The patient was also evaluated by gastroenterology. Today with IV Protonix. Keep the patient intensive care unit. Obtain a follow-up hemoglobin. We'll continue to follow.
[2018-10-21] MEDS ORDERED: DESMOPRESSIN ACETATE 19 MCG in SODIUM CHLORIDE 0.9% 50 ML IV ONE (19:47)
[2018-10-21] MEDS: FUROSEMIDE 40 MG TAB PO SCH (21:19)
[2018-10-21 23:12] LABS: Anisocytosis Slight; Basophils % (A) 1 %; Eosinophils # (A) 0.1 k/uL (0-0.7); Eosinophils % (A) 2 %; Lymphocytes # (A) 0.7 k/uL (1.0-4.8); Lymphocytes % (A) 14 %; MCH 33.9 pg (25.0-35.0); MCHC 34.4 g/dL (31.0-37.0); MCV 98.4 fL (80.0-100.0); Macrocytosis Slight; Mean Platelet Volume 7.3; Monocytes # (A) 0.3 k/uL (0-1.0); Monocytes % (A) 6 %; Neutrophils # (A) 3.9 k/uL (1.3-7.7); Neutrophils % (A) 75 %; Platelet Count 153 k/uL (150-450); RBC 2.01 m/uL (4.30-5.90); RDW 18.1 % (11.5-15.5); WBC 5.2 k/uL (3.8-10.6)
[2018-10-21 23:23] LABS: Calcium 8.8 mg/dL (8.4-10.2); Potassium 4.1 mmol/L (3.5-5.1)
--- NOTE | 2018-10-21 23:24 | CONS ---
CONSULTATION REASON FOR CONSULTATION: End-stage renal disease. HISTORY OF PRESENT ILLNESS: Patient is a 48-year-old male with end-stage renal disease, on hemodialysis on Saturday, Saturday, Saturday schedule. Currently dialyzing out of [facility]. The patient was admitted to the hospital with complaints of bright red blood per rectum, which happened yesterday and patient had active bleeding in the ER as well and therefore he was admitted to the ICU. Hemoglobin was 7.3 and on repeat hemoglobin check it was down to 6.8. Patient will be receiving packed RBC transfusion. He recently had hemorrhoidectomy and the patient has been evaluated by General Surgery, the incision has healed well. The patient states he had a peptic ulcer a few years ago. PAST MEDICAL HISTORY: End-stage renal disease, history of nephrolithiasis, history of seizure disorder, chronic osteoarthritis, and neuropathy, previous history of vent-dependent respiratory failure and history of CVA, atrial fibrillation, previous history of GI bleed. The patient had a left thalamic CVA, previous history of pericardial effusion. PAST SURGICAL HISTORY: Hemorrhoidectomy recently, EGD, colonoscopy, AV fistula, cystoscopy, lithotripsies, previous history of renal stents and double-J catheter placement. SOCIAL HISTORY: Positive for smoking. No history of drug abuse or alcohol abuse. REVIEW OF SYSTEMS: As per HPI. MEDICATIONS: Medications at home prior to admission include PhosLo, Lipitor, Norvasc, Neurontin, Keppra, Lasix, sodium bicarb, Trandate, hydralazine. ALLERGIES: None. EXAMINATION: Patient is comfortable, awake, not in any acute distress. Alert and oriented x3. Blood pressure this morning was 169/78, heart rate of about 90 per minute. Patient is afebrile. Examination of the heart S1, S2. Examination of lungs, bilateral breath sounds are heard. Abdomen is soft, nontender. Examination lower extremities shows no significant edema. PROJECT PLANNER exam is grossly intact. LABS: This morning hemoglobin was 7.1, white cell count 6.0. Sodium 137, potassium 4.0. ASSESSMENT: 1. End-stage renal disease, on hemodialysis on a Saturday, Saturday, Saturday schedule via right arm AV fistula. 2. Acute GI bleed. The patient will be given a dose of DDAVP. He will need followup hemoglobin check and packed RBC transfusion. Gastroenterology has been consulted and surgery is also on consult. INR is not elevated. 3. History of seizure disorder. 4. History of left thalamic stroke. 5. Chronic kidney disease mineral bone disorder. 6. History of seizures. PLAN: Hemodialysis in a.m. DDAVP x1. Continue to monitor hemoglobin. EGD as per surgery/GI. MMODL / IJN: [id number] /
[2018-10-21 23:35] LABS: HCT 19.7 % (39.0-53.0); HGB 6.8 gm/dL (13.0-17.5)
--- NOTE | 2018-10-21 23:38 | CONS ---
CONSULTATION DATE OF DICTATION: October 21, 2018. REQUESTING PHYSICIAN: Dr. Jaylen Holguin. REASON FOR CONSULTATION: Acute gastrointestinal bleed. HISTORY OF PRESENT ILLNESS: The patient is a 48-year-old pleasant white male with a history of end-stage renal disease on hemodialysis, history of hypertension, CVA in the past who was admitted to the hospital with acute GI bleed. The patient underwent hemorrhoidectomy about [address] Biggs and he did well. He woke up around midnight at 1:30 am and had multiple episodes of bright red blood per rectum with clots. He had 3 episodes at home, came to the emergency room and subsequently he had another 4 episodes. His initial hemoglobin was 7.3 and dropped to 6.8 g/dL. He is presently in the intensive care unit being monitored closely. The last episode of bleeding was about 1 hour ago and was approximately 200 mL. The patient complains of some epigastric discomfort but no nausea, vomiting. He did have an EGD and colonoscopy by me in January 2018 that showed a small duodenal ulcer and several small polyps in the colon that were removed with polypectomy. He denies any recent NSAID use. PAST MEDICAL HISTORY: Significant for hypertension, hyperlipidemia, end-stage renal disease, on hemodialysis, seizure disorder, history of CVA in the past, history of atrial fibrillation. PAST SURGICAL HISTORY: Hemorrhoidectomy 3 weeks ago, EGD, colonoscopy in January of 2018, pericardial window, AV fistula, bilateral renal stents. MEDICATIONS: At home include PhosLo, Lipitor, Norvasc, Neurontin, Keppra, sodium bicarb, Lasix, Trandate, hydralazine. ALLERGIES: None. FAMILY HISTORY: Father had CVA and lymphoma. Mother had CVA. SOCIAL HISTORY: Chronic smoker. No alcohol use. REVIEW OF SYSTEMS: Cardiopulmonary: Denies any chest pain, shortness of breath, Genitourinary: No dysuria or hematuria. Musculoskeletal some back pain. Neurology: Unremarkable. Psychiatric unremarkable. ENT/vision unremarkable. Constitutional: No recent weight loss. No fever, chills, night sweats. GI as mentioned above. Endocrine: Unremarkable. EXAMINATION: He appears comfortable in no apparent distress. Vital signs were stable. Blood pressure is 132/90, pulse rate 89, temp 98.2. HEENT examination unremarkable. Conjunctivae pink. Sclerae anicteric. Oral cavity no lesions. Neck no jugular venous distention or lymph node enlargement. Chest was clear to auscultation. HEART: Regular rate and rhythm. ABDOMEN: Soft. Bowel sounds are positive. No organomegaly. Extremities: No pedal edema. Skin no rashes. NEUROLOGICAL: Alert and oriented times three. No focal deficits. LABORATORY DATA: From this morning, WBC 6, hemoglobin 12.3, platelets 149. Repeat hemoglobin this evening hemoglobin 6.8. Basic metabolic panel, BUN was 20, creatinine 4.85, PT INR 10.4/1.1. IMPRESSION: 1. Acute gastrointestinal bleed for the last 12 hours duration. Patient had multiple episodes of bright red blood/maroon-colored stools for the last 12 hours dropped hemoglobin from 7.1-6.8 g/dL. As mentioned above he had an EGD/colonoscopy January of 2018 that revealed duodenal ulcer and multiple colon polyps that were removed endoscopy. He did have hemorrhoidectomy for intermittent rectal bleeding by Dr. Biggs about [address] Biggs evaluated the patient and does not think the bleeding is related to recent hemorrhoid surgery. 2. History of end-stage renal disease on hemodialysis. 3. Hypertension. 4. Seizure disorder. 5. Chronic thrombocytopenia. RECOMMENDATIONS: 1. Clear liquid diet. 2. Protonix 40 mg q12 hourly. . 3. tomorrow. 4. Discussed with the patient risks, benefits, and complications and he is agreeable to it. . MMODL / IJN: [id number] /
[2018-10-22 05:15] LABS: Anisocytosis Slight; MCH 33.7 pg (25.0-35.0); MCHC 34.5 g/dL (31.0-37.0); MCV 97.9 fL (80.0-100.0); Macrocytosis Slight; Mean Platelet Volume 6.9; Platelet Count 158 k/uL (150-450); Poikilocytosis Slight; RBC 1.99 m/uL (4.30-5.90); RDW 18.4 % (11.5-15.5); WBC 5.2 k/uL (3.8-10.6)
[2018-10-22 05:19] LABS: Albumin 3.5 g/dL (3.5-5.0); HCT 19.5 % (39.0-53.0); HGB 6.7 gm/dL (13.0-17.5); Potassium 4.1 mmol/L (3.5-5.1); Total Bilirubin 0.7 mg/dL (0.2-1.3); Total Protein 5.6 g/dL (6.3-8.2)
[2018-10-22] MEDS: CALCIUM ACETATE 667 MG CAP PO SCH ×4 (06:58→18:29)
[2018-10-22] MEDS: levETIRAcetam 500 MG TAB PO SCH ×2 (08:42→21:54)
[2018-10-22] MEDS: PANTOPRAZOLE 40 MG/10 ML VIAL IVP SCH (08:42)
[2018-10-22] MEDS: NICOTINE 21MG/24HR PATCH TRANSDERM SCH (08:43)
[2018-10-22] MEDS: GABAPENTIN 100 MG CAP PO SCH ×2 (08:43→21:54)
[2018-10-22] MEDS: SODIUM BICARBONATE TAB 650 MG TAB PO SCH ×3 (09:00→21:54)
[2018-10-22] MEDS ORDERED: Acetaminophen-Codeine 300-30mg TAB PO PRN (10:44)
[2018-10-22] MEDS ORDERED: METHOCARBAMOL 750 MG TAB PO SCH (10:45)
[2018-10-22] MEDS: hydrALAZINE HCL 25 MG TAB PO SCH ×3 (11:12→21:55)
[2018-10-22] MEDS: FUROSEMIDE 40 MG TAB PO SCH ×2 (11:13→21:54)
[2018-10-22] MEDS: amLODIPine 5 MG TAB PO SCH ×2 (11:13→21:55)
[2018-10-22] MEDS: ATORVASTATIN 20 MG TAB PO SCH (11:13)
[2018-10-22] MEDS ORDERED: METHOCARBAMOL 750 MG TAB PO PRN (11:15)
[2018-10-22] MEDS ORDERED: PROPOFOL 10 MG/ML 20 ML VIAL IV ONE (12:37)
[2018-10-22] MEDS ORDERED: SODIUM CHLORIDE 0.9% 500 ML 500 ML IV ONE (12:43)
--- NOTE | 2018-10-22 12:59 | P.PN ---
Subjective Progress Note Date: 10/22/18 Patient had several small episodes yesterday but no bleeding this morning or during enemas. Denies pain Objective - Vital Signs Vital signs: Vital Signs Temp 98.0 F 10/22/18 08:35 Pulse 75 10/22/18 11:00 Resp 12 10/22/18 11:00 BP 166/96 10/22/18 11:00 Pulse Ox 95 10/22/18 08:35 Intake & Output 10/21/18 10/22/18 10/22/18 18:59 06:59 18:59 Intake Total 540 460 0 Output Total 200 0 0 Balance 340 460 0 Weight 64.2 kg 67 kg Intake: IV 50 Desmopressin Acetate 19 50 mcg In Sodium Chloride 0. 9% 50 ml @ 200 mls/hr IV ONCE ONE Rx#:[id number] Oral 540 100 Blood Product 0 310 0 Rc Pheresis As-3 Unit 0 [id number] Rc Pheresis As-3 Unit 0 310 [id number] Output: Urine 0 0 0 Stool 200 Other: Voiding Method Toilet Toilet Toilet Bedside Commode # Voids 1 0 0 # Bowel Movements 1 1 1 - Constitutional General appearance: Present: cooperative - Respiratory Details: nonlabored - Cardiovascular Rhythm: regular - Gastrointestinal Gastrointestinal Comment(s): S/NT/ND - Labs CBC & Chem 7: 10/22/18 04:27 10/22/18 04:27 Labs: Abnormal Lab Results - Last 24 Hours (Table) 10/21/18 10/21/18 10/21/18 Range/Units 05:43 15:54 22:51 RBC 2.01 L 2.01 L (4.30-5.90) m/uL Hgb 6.8 L* 6.8 L* (13.0-17.5) gm/dL Hct 19.9 L* 19.7 L* (39.0-53.0) % RDW 17.7 H 18.1 H (11.5-15.5) % Lymphocytes # 0.7 L (1.0-4.8) k/uL Sodium (137-145) mmol/L Chloride (98-107) mmol/L Carbon Dioxide (22-30) mmol/L BUN (9-20) mg/dL Creatinine (0.66-1.25) mg/dL Glucose (74-99) mg/dL Total Protein (6.3-8.2) g/dL Crossmatch See Detail 10/21/18 10/22/18 10/22/18 Range/Units 22:51 04:27 04:27 RBC 1.99 L (4.30-5.90) m/uL Hgb 6.7 L* (13.0-17.5) gm/dL Hct 19.5 L* (39.0-53.0) % RDW 18.4 H (11.5-15.5) % Lymphocytes # (1.0-4.8) k/uL Sodium 134 L 135 L (137-145) mmol/L Chloride 92 L 91 L (98-107) mmol/L Carbon Dioxide 32 H 31 H (22-30) mmol/L BUN 26 H 27 H (9-20) mg/dL Creatinine 6.53 H 7.32 H* (0.66-1.25) mg/dL Glucose 117 H (74-99) mg/dL Total Protein 5.6 L (6.3-8.2) g/dL Crossmatch Assessment and Plan Assessment: GI bleed Plan: 6 weeks post op hemorrhoidectomy, No active bleeding at this time. Follow up results of EGD and flex sig per GI
--- NOTE | 2018-10-22 13:16 | P.PCN ---
Date of Procedure: 10/22/18 Procedure(s) Performed: Brief history: Patient is a pleasant 48-year-old white male with end-stage renal disease on hemodialysis was admitted hospital with acute GI bleed. He had multiple episodes of maroon colored stools for the last 24 hours His hemoglobin dropped to to 6.8 gms/dl and required 2 units of blood transfusion. He is hence for an elective upper endoscopy as well as flexible sigmoid endoscopy today. He had upper endoscopy as well as colonoscopy January 2018 which revealed a small duodenal ulcer, gastritis and multiple colon polyps that were removed endoscopy today. He underwent hemorrhoidectomy 6 weeks ago and did well. Because of the GI bleed he scheduled for an upper endoscopy and a sigmoidoscopy today. Procedure performed: Esophagogastroduodenoscopy Colonoscopy with Endo Clip placement, cautery, biopsy and snare polypectomy Preoperative diagnosis: Acute GI bleed Anesthesia: MAC Procedure: After informed consent was obtained from the patient was brought into the endoscopy unit and IV sedation was administered by anesthesia under continuous monitoring. Initially upper endoscopy was done. The Olympus GF 160 video endoscope was inserted inserted into the mouth and esophagus intubated without any difficulty and was gradually advanced into the stomach and duodenum and carefully examined. The bulb had mild duodenitis and second part of the duodenum appeared normal. The scope was then withdrawn into the stomach adequately insufflated with air and upon careful examination the antrum had mild gastritis. The body, cardia and fundus appeared normal. The scope was then withdrawn into the esophagus. The GE junction was located at 40 cm to the incisors. It appeared regular with no erythema erosions or ulcerations. Rest of the esophagus appeared normal. Patient tolerated the procedure well. At this time the patient continued to remain sedation. Initial digital rectal examination was normal. Olympus CF 160 video colonoscope was then inserted into the rectum and gradually advanced to the cecum without any difficulty. Careful examination was performed as the scope was gradually being withdrawn. The prep was excellent. The cecum, ascending colon, transverse colon, appeared normal in the descending colon there was a 5 limited polyp removed by snare polypectomy. In the sigmoid colon there was a small patch of colitis which was biopsied. Rest of the descending colon, sigmoid colon and rectum appeared normal. Retroflexion was performed in the rectum and under dentate line there was a small visible vessel with active bleeding identified. Initially attempted at placing an Endo Clip with no success. Subsequently using a gold probe I cauterized this area and a good hemostasis was achieved. Patient tolerated the procedure well. Impression: 1. Upper endoscopy revealed gastritis and duodenitis but no evidence of peptic ulcer disease. No evidence of active upper GI bleed 2. Colonoscopy revealed a visible vessel with active bleeding on the dentate line status post Endo Clip placement and cautery with good hemostasis. 5 mm ascending colon polyp status post polypectomy and a patch of colitis in the sigmoid colon status post biopsy Recommendations: Findings of this examination were discussed with the patient as well as his family. He'll be started on a renal diet. Repeat CBC in a.m.
--- NOTE | 2018-10-22 13:18 | P.PN ---
Subjective Progress Note Date: 10/22/18 This is a 48-year-old male patient of Dr. Holguin with past medical history of end-stage renal disease on hemodialysis 3 times weekly- Mo, We, Fr, hypertension, seizure disorder, left thalamus stroke, previous admission for acute hypoxic respiratory failure secondary to fluid overload from missing dialysis treatments requiring mechanical ventilation, chronic thrombocytopenia, tobacco use and dependence paroxysmal atrial fibrillation in February 2018. Patient underwent hemorrhoid ectomy [address] Biggs and started having some mid epigastric pain 2 days ago followed by last night having bleeding and blood clots rectally. He did attend his hemodialysis treatment yesterday. He has been on dialysis for 9 years now. He came into [facility] emergency [facility] for evaluation. Hemoglobin 7.3 and baseline is usually 8, platelet count is 166, creatinine 4.85. Stool for occult blood was positive and troponin negative. Due to active rectal bleeding, patient was admitted to the intensive care unit. No plan for transfusion until patient is less than 7. Consult in place for Dr. Doss and nephrology. Patient has been seen by Dr. biggs and GI consult was added. Patient does have history of bleeding ulcer 1 year ago. 10/22: Patient is followed by Dr. Figueroa from nephrology with plan for hemodialysis today, DDAVP 1. Dr. Crowe has evaluated the patient with recommendations for clear liquid diet, Protonix 40 every 12 hours and he has been scheduled for EGD and sigmoidoscopy today with Dr. Crowe. Patient has been transfused 1 unit of packed RBCs and repeat hemoglobin this morning is 6.7. Patient is very anxious to be discharged but has agreed to stay until tomorrow. Review of Systems All systems: negative Constitutional: Denies chills, Denies fatigue, Denies fever, Denies poor appetite, Denies weight loss Eyes: denies blurred vision, denies pain Ears, nose, mouth and throat: Denies dysphagia, Denies headache, Denies sore throat, Denies vertigo Cardiovascular: Denies chest pain, Denies decreased exercise tolerance, Denies dyspnea on exertion, Denies edema, Denies leg edema, Denies orthopnea, Denies shortness of breath, Denies syncope Respiratory: Denies cough, Denies cough with sputum, Denies dyspnea, Denies excessive sputum, Denies hemoptysis, Denies home oxygen, Denies wheezing Gastrointestinal: Reports abdominal pain, Reports melena, Denies diarrhea, Denies nausea, Denies vomiting Musculoskeletal: Denies frequent falls, Denies gait dysfunction, Denies muscle weakness, Denies myalgias Integumentary: Denies pruritus, Denies rash, Denies wounds Neurological: Denies aphasia, Denies change in mentation, Denies confusion, Denies head injury, Denies headaches, Denies numbness, Denies seizures, Denies weakness Psychiatric: Denies anxiety, Denies depression Endocrine: Denies fatigue, Denies weight change Objective - Vital Signs Vital signs: Vital Signs Temp 98.0 F 10/22/18 08:35 Pulse 86 10/22/18 08:35 Resp 12 10/22/18 08:35 BP 159/101 10/22/18 08:35 Pulse Ox 95 10/22/18 08:35 Intake & Output 10/21/18 10/22/18 10/22/18 18:59 06:59 18:59 Intake Total 540 460 0 Output Total 200 0 Balance 340 460 0 Weight 64.2 kg 67 kg Intake: IV 50 Desmopressin Acetate 19 50 mcg In Sodium Chloride 0. 9% 50 ml @ 200 mls/hr IV ONCE ONE Rx#:[id number] Oral 540 100 Blood Product 0 310 0 Rc Pheresis As-3 Unit 0 [id number] Rc Pheresis As-3 Unit 0 310 [id number] Output: Urine 0 0 Stool 200 Other: Voiding Method Toilet Toilet # Voids 1 0 0 # Bowel Movements 1 1 - Exam Gen: This is a 48-year-old male patient seen in the ICU and appears to be comfortable and in no acute distress HEENT: Head is atraumatic, normocephalic. Pupils equal, round. Sclerae is anicteric. NECK: Supple. No JVD. No lymphadenopathy. No thyromegaly. LUNGS: Clear to auscultation. No wheezes or rhonchi. No intercostal retractions. HEART: Regular rate and rhythm. Systolic murmur. ABDOMEN: Soft. Bowel sounds are present. No masses. Mild left-sided abdominal tenderness. No epigastric tenderness. No left lower quadrant tenderness. EXTREMITIES: No pedal edema. No calf tenderness. No lower extremity wounds. NEUROLOGICAL: Patient is awake, alert and oriented x3. Cranial nerves 2 through 12 are grossly intact. - Labs CBC & Chem 7: 10/22/18 04:27 10/22/18 04:27 Labs: Abnormal Lab Results - Last 24 Hours (Table) 10/21/18 10/21/18 10/21/18 Range/Units 05:43 09:08 15:54 RBC 2.08 L 2.01 L (4.30-5.90) m/uL Hgb 7.1 L 6.8 L* (13.0-17.5) gm/dL Hct 20.3 L 19.9 L* (39.0-53.0) % RDW 17.5 H 17.7 H (11.5-15.5) % Lymphocytes # 0.9 L (1.0-4.8) k/uL Sodium (137-145) mmol/L Chloride (98-107) mmol/L Carbon Dioxide (22-30) mmol/L BUN (9-20) mg/dL Creatinine (0.66-1.25) mg/dL Glucose (74-99) mg/dL Total Protein (6.3-8.2) g/dL Crossmatch See Detail 10/21/18 10/21/18 10/22/18 Range/Units 22:51 22:51 04:27 RBC 2.01 L 1.99 L (4.30-5.90) m/uL Hgb 6.8 L* 6.7 L* (13.0-17.5) gm/dL Hct 19.7 L* 19.5 L* (39.0-53.0) % RDW 18.1 H 18.4 H (11.5-15.5) % Lymphocytes # 0.7 L (1.0-4.8) k/uL Sodium 134 L (137-145) mmol/L Chloride 92 L (98-107) mmol/L Carbon Dioxide 32 H (22-30) mmol/L BUN 26 H (9-20) mg/dL Creatinine 6.53 H (0.66-1.25) mg/dL Glucose 117 H (74-99) mg/dL Total Protein (6.3-8.2) g/dL Crossmatch 10/22/18 Range/Units 04:27 RBC (4.30-5.90) m/uL Hgb (13.0-17.5) gm/dL Hct (39.0-53.0) % RDW (11.5-15.5) % Lymphocytes # (1.0-4.8) k/uL Sodium 135 L (137-145) mmol/L Chloride 91 L (98-107) mmol/L Carbon Dioxide 31 H (22-30) mmol/L BUN 27 H (9-20) mg/dL Creatinine 7.32 H* (0.66-1.25) mg/dL Glucose (74-99) mg/dL Total Protein 5.6 L (6.3-8.2) g/dL Crossmatch Assessment and Plan Plan: 1. Acute rectal bleeding with possible acute blood loss anemia possible source includes bleeding ulcer or bleeding from recent hemorrhoidectomy. Consult with Dr. Biggs appreciated. GI consult added. Status post transfusion of 1 unit packed RBCs. Patient will be placed on Protonix daily. EGD and sigmoidoscopy today with Dr. De Los Santos. 2. History of anemia of chronic disease with baseline hemoglobin of 8. 3. End-stage renal disease on hemodialysis Saturday and Saturday. Consult with Dr. Figueroa. Hemodialysis for tomorrow. Continue sodium bicarb, PhosLo. 4. Hypertension, hypertensive cardiovascular disease. Continue Norvasc 5 mg twice daily, labetalol 200 mg twice daily, hydralazine 75 mg 3 times daily. 5. History of seizure disorder. Continue Keppra 1000 mg twice daily. 6. History of empyema status post VATS and pericardial window. Respiratory status is stable. 7. History of left thalamus stroke. Continue Lipitor 20 mg daily for secondary prevention. 8. Tobacco use and dependence. Nicotine patch. 9. Chronic thrombocytopenia. Currently stable. 10. DVT prophylaxis. KP hose and SCDs. 11. GI prophylaxis. Protonix 11. CODE STATUS: Full code. Discharge plan: Return home tomorrow Impression and plan of care have been directed as dictated by the signing physician. Doretha Brumfield nurse practitioner acting as scribe for signing physician.
--- NOTE | 2018-10-22 14:52 | P.PN ---
Subjective Progress Note Date: 10/22/18 Principal diagnosis: Acute GI blood loss anemia related to acute GI bleeding This is a 48-year-old white male patient of Dr. Holguin, no came into the emergency department on 10/21/2018 for evaluation of bright red blood per rectum, and clots since yesterday, patient had 7 or 8 episodes last night, and this morning. He had a recent history of hemorrhoidectomy [address] Biggs. Does have chronic anemia. He has had previous GI bleeding, patient has had previous EGDs and colonoscopies, most recent one in January and it was noted to have a 1 cm duodenal ulcer, some gastritis, and colonoscopy revealed 5 polyps largest one measuring 2 cm, all of which were removed, and biopsies revealed tubular adenoma. Patient did have previous blood transfusions for active GI bleeding. Other medical history includes stage renal disease on hemodialysis on Saturday schedule. 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 Lab work on admission showed WBC of 5.7, hemoglobin of 7.9, platelet count of 141, INR is 1.0, sodium was 137, potassium is 4.0, chloride is 95 CO2 is 34, B1 is 20 and creatinine is 4.69. Troponins were 0.032, is 0.014, stool occult blood was positive. Patient was having some mild abdominal cramping, and lightheadedness and dizziness, denied any dyspnea or chest pain. Patient had 3 more episodes of blood clots and bright red per rectum while inpatient this afternoon. GI service has been consulted, patient has been started on PPI therapy, hemodynamic patient remains stable, non-tachycardic, denies any acute complaints , room air pulse ox is 94%, blood pressure is 155/92. Lung sounds are clear, diminished at the bases. Recheck blood work this afternoon showed hemoglobin of 6.8. One unit of packed red blood cells is on hold. On 10/22/2018 patient seen in follow-up in intensive care unit, no further episodes of bloody bowel movements with blood clots, today's hemoglobin is 0.7, patient was given a unit of packed red blood cells yesterday, and recently the dose of DDAVP. This morning patient is having his hemodialysis, and is receiving another unit of blood with hemodialysis. He has remained stable, he is awake and alert, in no acute distress, no chest pain or shortness of breath, seen and evaluated by GI service, and it is for EGD and colonoscopy today. Room air pulse ox is 96%, afebrile, hemodynamically stable, lung sounds are clear, diminished at the bases. Objective - Vital Signs Vital signs: Vital Signs Temp 98.0 F 10/22/18 12:00 Pulse 85 10/22/18 14:00 Resp 16 10/22/18 14:00 BP 169/96 10/22/18 14:00 Pulse Ox 96 10/22/18 14:00 Intake & Output 10/21/18 10/22/18 10/22/18 18:59 06:59 18:59 Intake Total 540 460 250 Output Total 200 0 0 Balance 340 460 250 Weight 64.2 kg 67 kg Intake: IV 50 200 Desmopressin Acetate 19 50 mcg In Sodium Chloride 0. 9% 50 ml @ 200 mls/hr IV ONCE ONE Rx#:[id number] Oral 540 100 50 Blood Product 0 310 0 Rc Pheresis As-3 Unit 0 [id number] Rc Pheresis As-3 Unit 0 310 [id number] Output: Urine 0 0 0 Stool 200 Other: Voiding Method Toilet Toilet Toilet Bedside Commode # Voids 1 0 0 # Bowel Movements 1 1 1 - Exam GENERAL EXAM: Alert, pleasant, 48-year-old white male, sleeping comfortable in no apparent distress. HEAD: Normocephalic/atraumatic. EYES: Normal reaction of pupils, equal size. Conjunctiva pink, sclera white. NOSE: Clear with pink turbinates. THROAT: No erythema or exudates. NECK: No masses, no JVD, no thyroid enlargement, no adenopathy. CHEST: No chest wall deformity. Symmetrical expansion. LUNGS: Equal air entry with no crackles, wheeze, rhonchi or dullness. CVS: Regular rate and rhythm, normal S1 and S2, no gallops, no murmurs, no rubs ABDOMEN: Soft, nontender. No hepatosplenomegaly, normal bowel sounds, no guarding or rigidity. EXTREMITIES: No clubbing, no edema, no cyanosis, 2+ pulses and upper and lower extremities. MUSCULOSKELETAL: Muscle strength and tone normal. SPINE: No scoliosis or deformity SKIN: No rashes CENTRAL NERVOUS SYSTEM: Alert and oriented -3. No focal deficits, tone is normal in all 4 extremities. PSYCHIATRIC: Alert and oriented -3. Appropriate affect. Intact judgment and insight. - Labs CBC & Chem 7: 10/22/18 04:27 10/22/18 04:27 Labs: Abnormal Lab Results - Last 24 Hours (Table) 10/21/18 10/21/18 10/21/18 Range/Units 05:43 15:54 22:51 RBC 2.01 L 2.01 L (4.30-5.90) m/uL Hgb 6.8 L* 6.8 L* (13.0-17.5) gm/dL Hct 19.9 L* 19.7 L* (39.0-53.0) % RDW 17.7 H 18.1 H (11.5-15.5) % Lymphocytes # 0.7 L (1.0-4.8) k/uL Sodium (137-145) mmol/L Chloride (98-107) mmol/L Carbon Dioxide (22-30) mmol/L BUN (9-20) mg/dL Creatinine (0.66-1.25) mg/dL Glucose (74-99) mg/dL Total Protein (6.3-8.2) g/dL Crossmatch See Detail 10/21/18 10/22/18 10/22/18 Range/Units 22:51 04:27 04:27 RBC 1.99 L (4.30-5.90) m/uL Hgb 6.7 L* (13.0-17.5) gm/dL Hct 19.5 L* (39.0-53.0) % RDW 18.4 H (11.5-15.5) % Lymphocytes # (1.0-4.8) k/uL Sodium 134 L 135 L (137-145) mmol/L Chloride 92 L 91 L (98-107) mmol/L Carbon Dioxide 32 H 31 H (22-30) mmol/L BUN 26 H 27 H (9-20) mg/dL Creatinine 6.53 H 7.32 H* (0.66-1.25) mg/dL Glucose 117 H (74-99) mg/dL Total Protein 5.6 L (6.3-8.2) g/dL Crossmatch Assessment and Plan Plan: Assessment: #1. Acute GI blood loss anemia related to acute GI bleeding, that his posttransfusion of 2 units of PRBCs, and a dose of DDAVP #2. Recent hemorrhoidectomy 3 weeks ago #3. Chronic anemia of end-stage renal failure #4. Previous history of GI bleeding, EGD and colonoscopy in January 2018 showed a duodenal ulcer, gastritis, and 5 polyps, tumor removed and biopsies revealed tubular adenoma #5. End-stage renal disease on hemodialysis on Saturday #6. Hypertension, hyperlipidemia #7. Seizure disorder #8. Previous history of CVA with no residual #9. Chronic and ongoing nicotine dependence #10. Previous episodes of pneumonia, and history of parapneumonic effusion requiring thoracoscopy and decortication #11. History of pericardial effusion status post pericardial window in January 2018 Plan: Patient is scheduled for EGD and colonoscopy this afternoon, status post transfusion of 2 units of PRBCs and a dose of DDAVP. No further episodes of GI bleeding. Hemodynamically patient remains stable, he had his hemodialysis treatment today, no dyspnea, no chest pain. Continue to follow. I performed a history & physical examination of the patient and discussed their management with my nurse practitioner, Kerry Kiran. I reviewed the nurse practitioner's note and agree with the documented findings and plan of care. Lung sounds are positive for clear lung sounds. The findings and the impression was discussed with the patient. I attest to the documentation by the nurse practitioner. Time with Patient: Greater than 30
[2018-10-22 15:57] LABS: Anisocytosis Slight; Basophils % (A) 1 %; Eosinophils # (A) 0.1 k/uL (0-0.7); Eosinophils % (A) 2 %; HCT 21.8 % (39.0-53.0); HGB 7.6 gm/dL (13.0-17.5); Lymphocytes # (A) 0.8 k/uL (1.0-4.8); Lymphocytes % (A) 16 %; MCH 32.5 pg (25.0-35.0); MCHC 34.7 g/dL (31.0-37.0); MCV 93.8 fL (80.0-100.0); Macrocytosis Slight; Mean Platelet Volume 6.8; Monocytes # (A) 0.3 k/uL (0-1.0); Monocytes % (A) 6 %; Neutrophils # (A) 3.8 k/uL (1.3-7.7); Neutrophils % (A) 74 %; Platelet Count 160 k/uL (150-450); RBC 2.33 m/uL (4.30-5.90); RDW 19.8 % (11.5-15.5); WBC 5.2 k/uL (3.8-10.6)
[2018-10-22] MEDS: LABETALOL 200 MG TAB PO SCH ×2 (18:28→21:54)
--- NOTE | 2018-10-22 21:49 | PN ---
PROGRESS NOTE Patient was seen this morning on dialysis. He did not have any further bleeding. His hemoglobin was at 6.7 g/dL, and he is receiving packed RBCs transfusion. Patient is scheduled for endoscopy today. EXAMINATION: This morning blood pressure was 158/100. The patient is afebrile. Examination of the heart S1, S2. Examination of the lungs bilateral breath sounds are heard. Abdomen is soft, nontender. Exam of lower extremities shows no evidence of edema. SHOE SPRAYER exam is grossly intact. LABS SHOW: Sodium 135, potassium 4.1, hemoglobin was 6.7 g/dL. ASSESSMENT: 1. End-stage renal disease, on hemodialysis on a Saturday, Saturday, Saturday schedule. Patient is currently seen on dialysis. 2. Gastrointestinal bleed. The patient is scheduled for colonoscopy and EGD today. He did have the EGD by Dr. Crowe, which showed gastritis and duodenitis and colonoscopy showed active bleeding and an Endo clip was placed and the vessel was cauterized. 3. CKD mineral bone disorder. Check phosphorus levels. The patient should be maintained on his phosphate binders once he starts eating. 4. Anemia secondary to gastrointestinal bleed. PLAN: Check phosphorus in a.m. Next dialysis will be on Saturday if the patient is still in the hospital. Resume phosphate binders when patient is eating. MMODL / IJN: [id number] /
[2018-10-23 01:49] VITALS: RESP 16
[2018-10-23 05:07] VITALS: BP 159/85; PULSE 78; TEMP 98.1
[2018-10-23 08:58] LABS: Anisocytosis Slight; HCT 21.8 % (39.0-53.0); HGB 7.4 gm/dL (13.0-17.5); MCH 32.5 pg (25.0-35.0); MCV 95.4 fL (80.0-100.0); Macrocytosis Slight; Mean Platelet Volume 6.7; Platelet Count 163 k/uL (150-450); RBC 2.29 m/uL (4.30-5.90); WBC 7.8 k/uL (3.8-10.6)
[2018-10-23] MEDS: PANTOPRAZOLE 40 MG/10 ML VIAL IVP SCH (09:21)
[2018-10-23] MEDS: SODIUM BICARBONATE TAB 650 MG TAB PO SCH (09:23)
[2018-10-23] MEDS: hydrALAZINE HCL 25 MG TAB PO SCH (09:23)
[2018-10-23] MEDS: GABAPENTIN 100 MG CAP PO SCH (09:23)
[2018-10-23] MEDS: amLODIPine 5 MG TAB PO SCH (09:23)
[2018-10-23] MEDS: levETIRAcetam 500 MG TAB PO SCH (09:23)
[2018-10-23] MEDS: ATORVASTATIN 20 MG TAB PO SCH (09:23)
[2018-10-23] MEDS: FUROSEMIDE 40 MG TAB PO SCH (09:23)
[2018-10-23] MEDS: LABETALOL 200 MG TAB PO SCH (09:23)
[2018-10-23] MEDS: NICOTINE 21MG/24HR PATCH TRANSDERM SCH (09:24)
[2018-10-23] MEDS: CALCIUM ACETATE 667 MG CAP PO SCH (09:55)
--- NOTE | 2018-10-23 11:37 | P.PN ---
Subjective Progress Note Date: 10/23/18 Patient had no bleeding overnight. Feeling well no complaints. Objective - Vital Signs Vital signs: Vital Signs Temp 98.1 F 10/23/18 05:06 Pulse 78 10/23/18 05:06 Resp 16 10/23/18 05:06 BP 159/85 10/23/18 05:06 Pulse Ox 95 10/23/18 05:06 Intake & Output 10/22/18 10/23/18 10/23/18 18:59 06:59 18:59 Intake Total 300 350 310 Output Total 0 Balance 300 350 310 Intake: IV 200 Oral 100 350 Blood Product 0 310 Rc Pheresis As-3 Unit 0 310 [id number] Output: Urine 0 Other: Voiding Method Toilet Toilet Toilet Bedside Commode # Voids 0 1 # Bowel Movements 1 - Constitutional General appearance: Present: cooperative - Respiratory Details: nonlabored - Gastrointestinal Gastrointestinal Comment(s): S/NT/ND - Psychiatric Psychiatric: Present: A&O x's 3 - Labs CBC & Chem 7: 10/23/18 08:26 10/22/18 04:27 Labs: Abnormal Lab Results - Last 24 Hours (Table) 10/21/18 10/22/18 10/23/18 Range/Units 05:43 15:19 08:26 RBC 2.33 L 2.29 L (4.30-5.90) m/uL Hgb 7.6 L 7.4 L (13.0-17.5) gm/dL Hct 21.8 L 21.8 L (39.0-53.0) % RDW 19.8 H 20.0 H (11.5-15.5) % Lymphocytes # 0.8 L (1.0-4.8) k/uL Phosphorus (2.5-4.5) mg/dL Crossmatch See Detail 10/23/18 Range/Units 08:26 RBC (4.30-5.90) m/uL Hgb (13.0-17.5) gm/dL Hct (39.0-53.0) % RDW (11.5-15.5) % Lymphocytes # (1.0-4.8) k/uL Phosphorus 5.1 H (2.5-4.5) mg/dL Crossmatch Assessment and Plan Assessment: GI bleed Plan: Vessel was cauterized by GI during flex sig. No active bleeding at this time. No plans for surgical managment patient is stable from surgical standpoint.
--- NOTE | 2018-10-23 15:01 | P.DS ---
Providers Date of admission: 10/21/18 07:03 Expected date of discharge: 10/23/18 Attending physician: Kg Bruno Consults: 10/21/18 07:00 Consult Physician Stat Consulting Provider: Jameson Biggs Consult Reason/Comments: established patient - hemorrhoidectomy, GIB Do you want consulting provider notified?: Already Contacted 10/21/18 07:01 Consult Physician Urgent Consulting Provider: Rick Park Consult Reason/Comments: established patient Do you want consulting provider notified?: Yes, Notify in am 10/21/18 07:54 Consult Physician Routine Consulting Provider: Noy Crowe Consult Reason/Comments: Suspected upper GI bleed Do you want consulting provider notified?: Yes 10/21/18 09:50 Consult Physician Urgent Consulting Provider: Barbara Doss Consult Reason/Comments: ICU Care Do you want consulting provider notified?: Yes Primary care physician: Jaylen Holguin [facility] Course: This is a 48-year-old male patient of Dr. Holguin with past medical history of end-stage renal disease on hemodialysis 3 times weekly- Mo, We, Fr, hypertension, seizure disorder, left thalamus stroke, previous admission for acute hypoxic respiratory failure secondary to fluid overload from missing dialysis treatments requiring mechanical ventilation, chronic thrombocytopenia, tobacco use and dependence paroxysmal atrial fibrillation in February 2018. Patient underwent hemorrhoid ectomy [address] Biggs and started having some mid epigastric pain 2 days ago followed by last night having bleeding and blood clots rectally. He did attend his hemodialysis treatment yesterday. He has been on dialysis for 9 years now. He came into [facility] emergency center for evaluation. Hemoglobin 7.3 and baseline is usually 8, platelet count is 166, creatinine 4.85. Stool for occult blood was positive and troponin negative. Due to active rectal bleeding, patient was admitted to the intensive care unit. No plan for transfusion until patient is less than 7. Consult in place for Dr. Doss and nephrology. Patient has been seen by Dr. biggs and GI consult was added. Patient does have history of bleeding ulcer 1 year ago. 10/22: Patient is followed by Dr. Figueroa from nephrology with plan for hemodialysis today, DDAVP 1. Dr. Crowe has evaluated the patient with recommendations for clear liquid diet, Protonix 40 every 12 hours and he has been scheduled for EGD and sigmoidoscopy today with Dr. Crowe. Patient has been transfused 1 unit of packed RBCs and repeat hemoglobin this morning is 6.7. Patient is very anxious to be discharged but has agreed to stay until tomorrow. 10/23: Patient underwent EGD that revealed gastritis and duodenitis but no evidence of peptic ulcer disease. No evidence of active bleeding. Colonoscopy revealed a visible vessel with active bleeding on the dentate line status post Endo Clip placement and cautery with good hemostasis. 5 mm ascending colon polyp status post polypectomy and patch of colitis in the sigmoid colon status post biopsy. Patient was resumed on renal diet which she was tolerating. Repeat lab work revealed hemoglobin of 7.4. Patient underwent hemodialysis yesterday and is next scheduled doses will be on Saturday. Patient be discharged home today in stable condition. Discharge diagnoses: 1. Acute rectal bleeding with acute blood loss anemia from colon bleed status post Endo Clip and cautery status post transfusion of 2 units of packed RBCs. 2. History of anemia of chronic disease with baseline hemoglobin of 8. 3. End-stage renal disease on hemodialysis Saturday and Saturday. 4. Hypertension, hypertensive cardiovascular disease. 5. History of seizure disorder. 6. History of empyema status post VATS and pericardial window. 7. History of left thalamus stroke. 8. Tobacco use and dependence. 9. Chronic thrombocytopenia. Discharge plan: Return home Impression and plan of care have been directed as dictated by the signing physician. Doretha Brumfield nurse practitioner acting as scribe for signing physician. Patient Condition at Discharge: Good Plan - Discharge Summary Discharge Rx Participant: No New Discharge Prescriptions: New Nicotine 21Mg/24Hr Patch [Habitrol] 1 patch TRANSDERM DAILY #30 patch Continue Calcium Acetate [PhosLo] 667 mg PO TID-W/MEALS amLODIPine [Norvasc] 5 mg PO BID tab Atorvastatin [Lipitor] 20 mg PO DAILY #30 tablet Gabapentin [Neurontin] 100 mg PO BID #60 cap levETIRAcetam [Keppra] 1,000 mg PO Q12HR #120 tab Sodium Bicarbonate Tab 650 mg PO TID Furosemide [Lasix] 40 mg PO BID hydrALAZINE HCL 75 mg PO TID Labetalol [Trandate] 200 mg PO BID Methocarbamol [Robaxin-750] 750 mg PO TID PRN PRN Reason: Pain Acetaminophen-Codeine 300-30mg [Tylenol w/codeine #3] 1 tab PO TID PRN PRN Reason: Pain Discharge Medication List Calcium Acetate [PhosLo] 667 mg PO TID-W/MEALS 11/22/16 [History] Atorvastatin [Lipitor] 20 mg PO DAILY #30 tablet 07/27/17 [Rx] amLODIPine [Norvasc] 5 mg PO BID tab 07/27/17 [Rx] Gabapentin [Neurontin] 100 mg PO BID #60 cap 12/25/17 [Rx] levETIRAcetam [Keppra] 1,000 mg PO Q12HR #120 tab 12/25/17 [Rx] Sodium Bicarbonate Tab 650 mg PO TID 02/11/18 [History] Furosemide [Lasix] 40 mg PO BID 09/03/18 [History] Labetalol [Trandate] 200 mg PO BID 09/03/18 [History] hydrALAZINE HCL 75 mg PO TID 09/03/18 [History] Acetaminophen-Codeine 300-30mg [Tylenol w/codeine #3] 1 tab PO TID PRN 10/22/18 [History] Methocarbamol [Robaxin-750] 750 mg PO TID PRN 10/22/18 [History] Nicotine 21Mg/24Hr Patch [Habitrol] 1 patch TRANSDERM DAILY #30 patch 10/23/18 [ Rx] Follow up Appointment(s)/Referral(s): Jaylen Holguin MD [Primary Care Provider] - 10/30/18 9:30 am Patient Instructions/Handouts: Nicotine (Absorbed through the skin), How to Stop Smoking (DC), Gastrointestinal Bleeding (DC), Anemia (DC) Discharge Disposition: HOME SELF-CARE
== END 2018-10-23 11:30 | disposition home or self-care (01) | DRG 377 ==
LOC: EC 05:22 → 3SCARD 07:03 → 2SICU 09:51 → 3NMEDONC 10-23 01:28
PROVIDERS: ADMIT Internal Medicine Geriatric Medicine; ATTEND Internal Medicine Geriatric Medicine
PROC: 5A1D70Z Performance of Urinary Filtration, Intermittent, Less than 6 Hours Per Day (ICD-10-PCS; 2018-10-22)
PROC: 30233N1 Transfusion of Nonautologous Red Blood Cells into Peripheral Vein, Percutaneous Approach (ICD-10-PCS; 2018-10-22)
PROC: 0DBM8ZX Excision of Descending Colon, Via Natural or Artificial Opening Endoscopic, Diagnostic (ICD-10-PCS; principal; 2018-10-22 08:00)
PROC: 0W3P8ZZ Control Bleeding in Gastrointestinal Tract, Via Natural or Artificial Opening Endoscopic (ICD-10-PCS; 2018-10-22 08:00)
PROC: 0DBN8ZX Excision of Sigmoid Colon, Via Natural or Artificial Opening Endoscopic, Diagnostic (ICD-10-PCS; 2018-10-22 08:00)
PROC: 0DJ08ZZ Inspection of Upper Intestinal Tract, Via Natural or Artificial Opening Endoscopic (ICD-10-PCS; 2018-10-22 08:00)
DX: K62.5 Hemorrhage of anus and rectum (principal); N18.6 End stage renal disease; D62 Acute posthemorrhagic anemia; I13.11 Hypertensive heart and chronic kidney disease without heart failure, with stage 5 chronic kidney disease, or end stage renal disease; D12.2 Benign neoplasm of ascending colon; D12.4 Benign neoplasm of descending colon; D63.1 Anemia in chronic kidney disease; D69.6 Thrombocytopenia, unspecified; E78.5 Hyperlipidemia, unspecified; F17.210 Nicotine dependence, cigarettes, uncomplicated; G40.909 Epilepsy, unspecified, not intractable, without status epilepticus; I48.0 Paroxysmal atrial fibrillation; Z87.11 Personal history of peptic ulcer disease; K29.70 Gastritis, unspecified, without bleeding; K29.80 Duodenitis without bleeding; K52.9 Noninfective gastroenteritis and colitis, unspecified; Z98.890 Other specified postprocedural states; M89.9 Disorder of bone, unspecified; Z79.899 Other long term (current) drug therapy; Z80.7 Family history of other malignant neoplasms of lymphoid, hematopoietic and related tissues; Z82.3 Family history of stroke; Z86.010 Personal history of colon polyps; Z86.73 Personal history of transient ischemic attack (TIA), and cerebral infarction without residual deficits; Z87.442 Personal history of urinary calculi; Z91.15 Patient's noncompliance with renal dialysis; Z99.2 Dependence on renal dialysis; M50.30 Other cervical disc degeneration, unspecified cervical region
CPT/HCPCS: 36415; 43235; 45380; 45382; 45385; 80048; 80053; 82272; 84100; 84484; 85025; 85027; 85610; 85730; 86850; 86900; 86901; 86920; 88305; 88313; 90935; 99284

== ENCOUNTER → 2018-11-13 | Day surgery (SDC) | payer MEDICARE, BC ==
[~2018-11-13] MED LIST changes: +SIMETHICONE 40 MG/0.6 ML DROPS 2,000 MG/30 ML BOTTLE PO ONE; -SODIUM CHLORIDE 0.9% 500 ML in EMPTY BAG 1 BAG IV PRN
== END ==
LOC: ORWHC2ENDO 06:47
PROVIDERS: ATTEND Internal Medicine Gastroenterology
DX: D50.9 Iron deficiency anemia, unspecified (principal); R19.5 Other fecal abnormalities
CPT/HCPCS: 91110

== ENCOUNTER 2019-06-16 10:00 | Inpatient (IN) | payer MEDICARE, BC ==
[2019-06-16] MEDS ORDERED: IPRATROPIUM-ALBUTEROL 3 ML NEB INHALATION STA (10:14)
--- NOTE | 2019-06-16 10:18 | ED ---
General Adult HPI - General Stated complaint: Diff Breathing, Abd Pain Time Seen by Provider: 06/16/19 10:07 Source: patient, EMS, RN notes reviewed Mode of arrival: EMS Limitations: no limitations - History of Present Illness Initial comments: Patient is a pleasant 49-year-old male presenting to the emergency Department with complaints of difficulty breathing. Onset of symptoms was this morning. Patient states he was at dialysis and she was too short of breath for them to do dialysis. Patient states he is not missed any dialysis. Patient does have cough. Patient denies any history of previous breathing problems however later states that he has had previous thoracentesis as well as uses nebulizers at home. Patient states oxygen seems to be helping. Patient states he does have mild leg swelling however this is chronic for him and unchanged. - Related Data Home Medications Medication Instructions Recorded Confirmed Sodium Bicarbonate Tab 650 mg PO TID 02/11/18 06/16/19 Labetalol [Trandate] 200 mg PO BID 09/03/18 06/16/19 Furosemide [Lasix] 80 mg PO BID 06/16/19 06/16/19 Sevelamer [Renvela] 800 mg PO AC-TID 06/16/19 06/16/19 cloNIDine HCL [Catapres] 0.1 mg PO TID PRN 06/16/19 06/16/19 hydrALAZINE HCL [Apresoline] 100 mg PO TID 06/16/19 06/16/19 Previous Rx's Medication Instructions Recorded Atorvastatin [Lipitor] 20 mg PO DAILY #30 tablet 07/27/17 amLODIPine [Norvasc] 5 mg PO BID tab 07/27/17 Gabapentin [Neurontin] 100 mg PO BID #60 cap 12/25/17 levETIRAcetam [Keppra] 1,000 mg PO Q12HR #120 tab 12/25/17 Allergies Allergy/AdvReac Type Severity Reaction Status Date / Time No Known Allergies Allergy Verified 06/16/19 10:25 Review of Systems ROS Statement: Those systems with pertinent positive or pertinent negative responses have been documented in the HPI. ROS Other: All systems not noted in ROS Statement are negative. Constitutional: Denies: fever Eyes: Denies: eye pain ENT: Denies: ear pain Respiratory: Reports: cough, dyspnea Cardiovascular: Denies: chest pain Endocrine: Denies: fatigue Gastrointestinal: Denies: abdominal pain Genitourinary: Denies: dysuria Musculoskeletal: Denies: back pain Skin: Denies: rash Neurological: Denies: weakness Past Medical History Past Medical History: Atrial Fibrillation, Blood Disorder, CVA/TIA, Eye Disorder, GI Bleed, Hyperlipidemia, Hypertension, Renal Disease, Seizure Disorder Additional Past Medical History / Comment(s): End-stage renal disease on hemodialysis schedule of Saturday, and Saturday with last dialysis 10/20/18, urolithiasis/nephrolithiasis, acute hypoxic respiratory failure after missed dialysis, paroxysmal Afib, chronic anemia, chronic thrombocytopenia, lower GI bleed, duodenal ulcer, seizures with last seizures 12/2017, 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 History of Any Multi-Drug Resistant Organisms: None Reported Past Surgical History: Bladder Surgery, Orthopedic Surgery Additional Past Surgical History / Comment(s): Hemorrhoidectomy, EGDs, colonoscopies, L sided Vats with decortication, pericardial window, hemodialysis fistula, cystoscopies/lithotripsies, bilateral renal stents, double J catheter. Past Anesthesia/Blood Transfusion Reactions: No Reported Reaction Additional Past Anesthesia/Blood Transfusion Reaction / Comment(s): Pt has received blood in past without reaction. Smoking Status: Current every day smoker - Past Family History Father Family Medical History: Cancer, CVA/TIA Additional Family Medical History / Comment(s): Father had lymphoma. He had a CVA Mother Family Medical History: CVA/TIA Additional Family Medical History / Comment(s): Mother had a CVA. General Exam Limitations: no limitations General appearance: alert Head exam: Present: atraumatic Eye exam: Present: normal appearance, PERRL ENT exam: Present: normal oropharynx Neck exam: Present: normal inspection Respiratory exam: Present: respiratory distress (Patient is mild respiratory distress), wheezes, decreased breath sounds Cardiovascular Exam: Present: regular rate, normal rhythm GI/Abdominal exam: Present: soft. Absent: tenderness Extremities exam: Present: pedal edema (+1 bilaterally), other (Dialysis shunt right arm. Positive thrill.). Absent: calf tenderness Back exam: Present: normal inspection Neurological exam: Present: alert Psychiatric exam: Present: normal affect, normal mood Skin exam: Present: normal color Course Vital Signs 06/16/19 06/16/19 06/16/19 10:12 10:29 11:00 Temperature 98.1 F Pulse Rate 83 82 82 Respiratory 24 20 Rate Blood Pressure 177/95 O2 Sat by Pulse 84 L 93 L Oximetry 06/16/19 11:07 Temperature Pulse Rate 85 Respiratory Rate Blood Pressure O2 Sat by Pulse Oximetry - Reevaluation(s) Reevaluation #1: 06/16/19 11:46 Patient last had dialysis on Saturday. Patient missed his dialysis and therefore had it on Saturday. Patient was also supposed to have dialysis on Saturday however miss that she did not feel well. Patient normally does have dialysis Saturday and Saturday. 06/16/19 12:09 Case was also discussed with Dr. English, who will admit covering for Dr. Holguin. EKG Findings - EKG Comments: EKG Findings:: No sinus rhythm at 83. AK 124. QRS 98. QT 404. QTC 474. No rmal axis. LVH criteria. Nonspecific ST-T. Medical Decision Making - Medical Decision Making Patient reevaluated and mildly improved. Case discussed with Dr. Park who is familiar with this patient and will come see him. He will also arrange for dialysis. - Lab Data Result diagrams: 06/16/19 10:30 06/16/19 10:30 Lab Results 06/16/19 06/16/19 06/16/19 Range/Units 10:30 10:30 10:30 WBC 8.9 (3.8-10.6) k/uL RBC 2.38 L (4.30-5.90) m/uL Hgb 8.1 L (13.0-17.5) gm/dL Hct 25.1 L (39.0-53.0) % MCV 105.5 H (80.0-100.0) fL MCH 33.8 (25.0-35.0) pg MCHC 32.1 (31.0-37.0) g/dL RDW 17.3 H (11.5-15.5) % Plt Count 151 (150-450) k/uL Neutrophils % 87 % Lymphocytes % 6 % Monocytes % 4 % Eosinophils % 1 % Basophils % 1 % Neutrophils # 7.8 H (1.3-7.7) k/uL Lymphocytes # 0.5 L (1.0-4.8) k/uL Monocytes # 0.3 (0-1.0) k/uL Eosinophils # 0.1 (0-0.7) k/uL Basophils # 0.1 (0-0.2) k/uL Anisocytosis Slight Macrocytosis Moderate PT (9.0-12.0) sec INR (<1.2) APTT (22.0-30.0) sec Sodium 137 (137-145) mmol/L Potassium 7.1 H* (3.5-5.1) mmol/L Chloride 99 (98-107) mmol/L Carbon Dioxide 24 (22-30) mmol/L Anion Gap 14 mmol/L BUN 58 H (9-20) mg/dL Creatinine 13.33 H* (0.66-1.25) mg/dL Est GFR (CKD-EPI)AfAm 4 (>60 ml/min/1.73 sqM) Est GFR (CKD-EPI)NonAf 4 (>60 ml/min/1.73 sqM) Glucose 78 (74-99) mg/dL Calcium 9.5 (8.4-10.2) mg/dL Total Bilirubin 1.1 (0.2-1.3) mg/dL AST 29 (17-59) U/L ALT 24 (21-72) U/L Alkaline Phosphatase 80 (38-126) U/L Troponin I (0.000-0.034) ng/mL NT-Pro-B Natriuret Pep 870334 pg/mL Total Protein 6.4 (6.3-8.2) g/dL Albumin 4.0 (3.5-5.0) g/dL 06/16/19 06/16/19 Range/Units 10:30 10:30 WBC (3.8-10.6) k/uL RBC (4.30-5.90) m/uL Hgb (13.0-17.5) gm/dL Hct (39.0-53.0) % MCV (80.0-100.0) fL MCH (25.0-35.0) pg MCHC (31.0-37.0) g/dL RDW (11.5-15.5) % Plt Count (150-450) k/uL Neutrophils % % Lymphocytes % % Monocytes % % Eosinophils % % Basophils % % Neutrophils # (1.3-7.7) k/uL Lymphocytes # (1.0-4.8) k/uL Monocytes # (0-1.0) k/uL Eosinophils # (0-0.7) k/uL Basophils # (0-0.2) k/uL Anisocytosis Macrocytosis PT 11.1 (9.0-12.0) sec INR 1.1 (<1.2) APTT 25.5 (22.0-30.0) sec Sodium (137-145) mmol/L Potassium (3.5-5.1) mmol/L Chloride (98-107) mmol/L Carbon Dioxide (22-30) mmol/L Anion Gap mmol/L BUN (9-20) mg/dL Creatinine (0.66-1.25) mg/dL Est GFR (CKD-EPI)AfAm (>60 ml/min/1.73 sqM) Est GFR (CKD-EPI)NonAf (>60 ml/min/1.73 sqM) Glucose (74-99) mg/dL Calcium (8.4-10.2) mg/dL Total Bilirubin (0.2-1.3) mg/dL AST (17-59) U/L ALT (21-72) U/L Alkaline Phosphatase (38-126) U/L Troponin I 0.034 (0.000-0.034) ng/mL NT-Pro-B Natriuret Pep pg/mL Total Protein (6.3-8.2) g/dL Albumin (3.5-5.0) g/dL - Radiology Data Radiology results: image reviewed (Chest x-ray shows pulmonary edema) Critical Care Time Critical Care Time: Yes Total Critical Care Time: 33 Disposition Clinical Impression: Pulmonary edema, Hyperkalemia Disposition: ADMITTED IP TO THIS HOSP Condition: Serious Is patient prescribed a controlled substance at d/c from ED?: No Referrals: Jaylen Holguin MD [Primary Care Provider] - 1-2 days Decision Time: 12:04
[2019-06-16 10:51] LABS: Anisocytosis Slight; Basophils # (A) 0.1 k/uL (0-0.2); Basophils % (A) 1 %; Eosinophils # (A) 0.1 k/uL (0-0.7); Eosinophils % (A) 1 %; HCT 25.1 % (39.0-53.0); HGB 8.1 gm/dL (13.0-17.5); Lymphocytes # (A) 0.5 k/uL (1.0-4.8); Lymphocytes % (A) 6 %; MCH 33.8 pg (25.0-35.0); MCHC 32.1 g/dL (31.0-37.0); MCV 105.5 fL (80.0-100.0); Macrocytosis Moderate; Mean Platelet Volume 8.4; Monocytes # (A) 0.3 k/uL (0-1.0); Monocytes % (A) 4 %; Neutrophils # (A) 7.8 k/uL (1.3-7.7); Neutrophils % (A) 87 %; Platelet Count 151 k/uL (150-450); RBC 2.38 m/uL (4.30-5.90); RDW 17.3 % (11.5-15.5); WBC 8.9 k/uL (3.8-10.6)
[2019-06-16 11:00] LABS: INR 1.1 (<1.2); Partial Thromboplastin Time 25.5 sec (22.0-30.0); Prothrombin Time 11.1 sec (9.0-12.0)
[2019-06-16 11:07] LABS: Calcium 9.5 mg/dL (8.4-10.2); Total Bilirubin 1.1 mg/dL (0.2-1.3); Total Protein 6.4 g/dL (6.3-8.2)
[2019-06-16 11:20] LABS: Potassium 7.1 mmol/L (3.5-5.1)
--- NOTE | 2019-06-16 11:31 | XR ---
EXAMINATION TYPE: XR chest 2V DATE OF EXAM: 06/16/2019 COMPARISON: 02/23/2018 HISTORY: Difficulty breathing TECHNIQUE: Frontal and lateral views of the chest are obtained. FINDINGS: New multifocal patchy predominantly alveolar opacities with peripheral linear atelectasis are seen within the mid and lower lungs. There is apical sparing. Cardia mediastinal silhouette is en larged. Osseous structures appear intact. Minimal degenerative changes of the spine. Pulmonary hyperi nflation relates underlying COPD. IMPRESSION: Multifocal dependent alveolar airspace disease. Findings likely relate to either pneumon ia/aspiration pneumonia or dependent confluent pulmonary edema.
[2019-06-16] MEDS ORDERED: CALCIUM GLUCONATE 1 GM in SODIUM CHLORIDE 0.9% 100 ML IVPB ONE (11:43)
[2019-06-16] MEDS ORDERED: FUROSEMIDE 10 MG/ML 4 ML VIAL IV STA (11:47)
[2019-06-16] MEDS ORDERED: SODIUM POLYSTYRENE SULFONATE 15 GM/60 ML BOTTLE PO STA (11:47)
[2019-06-16] MEDS ORDERED: DEXTROSE 10 % IN WATER 250 ML IV STA (11:48)
[2019-06-16] MEDS ORDERED: INSULIN REGULAR 100 UNIT/ML VIAL IV ONE (11:49)
--- NOTE | 2019-06-16 12:19 | P.NPCON ---
History of Present Illness - Reason for Consult end stage renal disease - History of Present Illness reason for consultation: End-stage renal disease History of present illness: Patient is a 49-year-old male seen in consultation for end-stage renal disease. He is maintained on hemodialysis on a Saturday schedule. Patient's last hemodialysis was on Saturday. He missed Saturday's treatment. Patient went to the dialysis unit today but felt extremely weak and short of breath. He was unable to get out of his car and subsequently came to the hospital for further care. Patient's chest x-ray suggestive of pulmonary edema. His BNP is elevated above 100,000. He denies chest pain. No vomiting or diarrhea. No fever or chills. Patient states he did have a barbecue over the weekend and did eat more salt than usual but denies drinking excess amounts of fluids. Potassium was elevated at 7.1 which was medically treated with calcium, insulin/D50 in the ER. Hemodynamically stable. Blood pressures on the higher side. Patient denies any melena or hematochezia. Hemoglobin is stable at 8.1. Patient has required blood transfusions in the past. Vital signs are stable. General: The patient appeared well nourished and normally developed. HEENT: Head exam is unremarkable. Neck is without jugular venous distension. LUNGS: Lungs are clear to auscultation and percussion. Breath sounds decreased. HEART: Rate and Rhythm are regular. First and second heart sounds normal. No murmurs, rubs or gallops. ABDOMEN: Abdominal exam reveals normal bowel sounds. Non-tender and non-distende d. No evidence of peritonitis. EXTREMITITES: No clubbing, cyanosis, or edema. 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 History of Any Multi-Drug Resistant Organisms: None Reported Past Surgical History: Bladder Surgery, Orthopedic Surgery Additional Past Surgical History / Comment(s): Hemorrhoidectomy, EGDs, colonoscopies, L sided Vats with decortication, pericardial window, hemodialysis fistula, cystoscopies/lithotripsies, bilateral renal stents, double J catheter. Past Anesthesia/Blood Transfusion Reactions: No Reported Reaction Additional Past Anesthesia/Blood Transfusion Reaction / Comment(s): Pt has received blood in past without reaction. Smoking Status: Current every day smoker - Past Family History Father Family Medical History: Cancer, CVA/TIA Additional Family Medical History / Comment(s): Father had lymphoma. He had a CVA Mother Family Medical History: CVA/TIA Additional Family Medical History / Comment(s): Mother had a CVA. Medications and Allergies Home Medications Medication Instructions Recorded Confirmed Type Atorvastatin [Lipitor] 20 mg PO DAILY #30 tablet 07/27/17 06/16/19 Rx amLODIPine [Norvasc] 5 mg PO BID tab 07/27/17 06/16/19 Rx Gabapentin [Neurontin] 100 mg PO BID #60 cap 12/25/17 06/16/19 Rx levETIRAcetam [Keppra] 1,000 mg PO Q12HR #120 tab 12/25/17 06/16/19 Rx Sodium Bicarbonate Tab 650 mg PO TID 02/11/18 06/16/19 History Labetalol [Trandate] 200 mg PO BID 09/03/18 06/16/19 History Furosemide [Lasix] 80 mg PO BID 06/16/19 06/16/19 History Sevelamer [Renvela] 800 mg PO AC-TID 06/16/19 06/16/19 History cloNIDine HCL [Catapres] 0.1 mg PO TID PRN 06/16/19 06/16/19 History hydrALAZINE HCL [Apresoline] 100 mg PO TID 06/16/19 06/16/19 History Allergies Allergy/AdvReac Type Severity Reaction Status Date / Time No Known Allergies Allergy Verified 06/16/19 10:25 Physical Exam Vitals: Vital Signs Temp Pulse Resp BP Pulse Ox 06/16/19 11:07 85 06/16/19 11:00 82 06/16/19 10:29 82 20 93 L 06/16/19 10:12 98.1 F 83 24 177/95 84 L Intake and Output 06/15/19 06/16/19 06/16/19 22:59 06:59 14:59 Other: Weight 70.307 kg Results - Lab Results Most recent lab results Calcium 9.5 mg/dL (8.4-10.2) 06/16/19 10:30 06/16/19 10:30 06/16/19 10:30 Assessment and Plan Plan: assessment: 1. End-stage renal disease maintained on hemodialysis on a Saturday schedule. 2. Dyspnea secondary to volume overload. 3. History of diastolic CHF. 4. Hypertension with chronic kidney disease. Partially due to excess volume. 5. Noncompliance with hemodialysis treatments outpatient. 6. Hyperkalemia secondary to noncompliance with hemodialysis. 7. Chronic kidney disease mineral bone disease. 8. Anemia of chronic kidney disease. Rule out iron deficiency. Plan: Hemodialysis today with goal 3-4 L ultrafiltration. Extra treatment tomorrow depending on his volume status. Check iron studies. Add Aranesp. Low-salt diet. Resume home antihypertensives. Thank you for the consultation. I will continue to follow the patient with you during his hospital stay.
[2019-06-16] MEDS ORDERED: hydrALAZINE HCL 20 MG/ML 1 ML VIAL IVP PRN (12:21)
[2019-06-16] MEDS ORDERED: DARBEPOETIN ALFA 40 MCG/0.4 ML SYRINGE SQ SCH (13:00)
--- NOTE | 2019-06-16 14:56 | P.HPIM ---
History of Present Illness H&P Date: 06/16/19 Chief Complaint: Difficulty breathing no end-stage renal disease This is a 49-year-old male patient of Dr. Holguin with past medical history of end-stage renal disease secondary to postobstructive uropathy second from numerous kidney stones on hemodialysis 3 times weekly-Saturdays History of empyema status post VATS and pericardial window. seizure disorder, left thalamus stroke noncompliance for hemodialysis, currently a 1-1/2 pack per day smoker, with recurrent admissions for respiratory failure secondary to fluid overload from missing dialysis treatments requiring mechanical ventilation, chronic thrombocytopenia, tobacco use and dependence paroxysmal atrial fibrillation in February 2018. He was in the emergency room secondary to increasing shortness of breath, he apparently has missed his scheduled dialysis on Saturday, his last hemodialysis was Saturday, went to the dialysis unit today but was extremely weak, and shortness of breath. Patient was unable to get out of the car, and was subsequently sent in from emergency room for further care. Patient was having shortness of breath PND, no palpitations no chest pain, no fever no chills, no nausea no vomiting or diarrhea. Patient has his usual weekend with a barbecue, and had more salt than usual, denies any excessive amount of fluids, potassium was 7.1 on the ER the [facility], and was given D50 in the emergency room. Along with calcium hemoglobin is stable at 8.1, consult with nephrology and would be emergently dialyzed today, chest x-ray shows new multifocal disease airspace bilateral, patient has had cough for the past 2 weeks, with hemoptysis consult also made with Dr. Fraire from pulmonary medicine sputum cultures, IV Zosyn renal dosing. Patient was diaphoretic when seen in the emergency room for evaluation, family members at bedside, they were concerned on hemoptysis as well as the cough and progressive weakness Review of Systems Constitutional: Reports as per HPI, Reports anorexia, Reports lethargy, Reports weight gain, Denies chills, Denies chronic headaches, Denies chronic pain, Den ies daytime sleepiness, Denies fatigue, Denies fever, Denies malaise, Denies night sweats, Denies poor appetite, Denies sweats, Denies weakness, Denies weight loss Ears, nose, mouth and throat: Reports as per HPI, Denies ant. neck pain, Denies bleeding gums, Denies dental pain, Denies dysphagia, Denies epistaxis, Denies headache, Denies hoarseness, Denies mouth pain, Denies nasal congestion, Denies nasal discharge, Denies neck fullness/pressure, Denies neck lump, Denies nose pain, Denies odynophagia, Denies post-nasal drip, Denies sinus pain, Denies sinus pressure, Denies swelling in mouth, Denies swelling in throat, Denies sore throat, Denies vertigo, Denies voice changes Cardiovascular: Reports as per HPI, Reports shortness of breath, Denies chest pain, Denies claudication, Denies decreased exercise tolerance, Denies dyspnea on exertion, Denies edema, Denies high blood pressure, Denies irregular heart beat, Denies leg edema, Denies lightheadedness, Denies orthopnea, Denies palpitations, Denies paroxysmal nocturnal dyspnea, Denies phlebitis, Denies rapid heart beat, Denies syncope Respiratory: Reports as per HPI, Denies congestion, Denies cough, Denies cough with sputum, Denies dyspnea, Denies excessive sputum, Denies hemoptysis, Denies home oxygen, Denies pain, Denies pain on inspiration, Denies pleurisy, Denies respiratory infections, Denies sleep apnea, Denies snoring, Denies wheezing Gastrointestinal: Reports as per HPI, Reports abdominal pain (Intermittent right upper quadrant last pain 7 days ago) Genitourinary: Reports as per HPI Musculoskeletal: Reports as per HPI, Reports gait dysfunction, Reports muscle cramps Integumentary: Reports as per HPI, Denies acne, Denies boils, Denies brittle nails, Denies change in hair/nails, Denies color changes, Denies darkening of skin, Denies depigmentation, Denies dryness, Denies foot/leg ulcers, Denies growths, Denies hirsutism, Denies lesions, Denies onychomycosis, Denies pruritus, Denies rash, Denies sores, Denies striae, Denies unusual bruising, Denies wounds Neurological: Reports as per HPI, Reports change in mentation, Denies aphasia, Denies ataxia, Denies balance difficulties, Denies burning pain, Denies change in smell/taste, Denies change in speech, Denies confusion, Denies convulsions, Denies double vision, Denies gait dysfunction, Denies head injury, Denies headaches, Denies hearing difficulties, Denies lack of coordination, Denies loss of vision, Denies memory loss, Denies migraines, Denies motor disturbance, Denies numbness, Denies paralysis, Denies paresthesias, Denies seizures, Denies sensory deficit, Denies spasticity, Denies syncope, Denies tic, Denies tingling, Denies transient paralysis, Denies tremors, Denies vertigo, Denies weakness, Denies visual changes Psychiatric: Reports as per HPI, Denies anhedonia, Denies anxiety, Denies anxiety attacks, Denies change in appetite, Denies change in libido, Denies change in sleep habits, Denies confusion, Denies depression, Denies difficulty concentrating, Denies disorientation, Denies hallucinations, Denies hopeless ness, Denies hypersomnia, Denies insomnia, Denies irritability, Denies memory loss, Denies mood swings, Denies paranoia, Denies sadness/tearfulness, Denies sleep disturbances, Denies suicidal ideation Endocrine: Reports as per HPI Hematologic/Lymphatic: Reports as per HPI, Denies easy bleeding, Denies easy bruising, Denies lymphadenopathy, Denies lymphedema, Denies thrombophilia Allergic/Immunologic: Reports as per HPI, Denies allergic rhinitis, Denies anaphylaxis, Denies angioedema, Denies gluten intolerance, Denies persistent infections, Denies seasonal allergies, Denies urticaria, Denies wheezing Past Medical History Past Medical History: Atrial Fibrillation, Blood Disorder, CVA/TIA, Eye Disorder, GI Bleed, Hyperlipidemia, Hypertension, Renal Disease, Seizure Disorder Additional Past Medical History / Comment(s): End-stage renal disease on hemod ialysis schedule of Saturday, and Saturday with last dialysis 10/20/18, urolithiasis/nephrolithiasis, acute hypoxic respiratory failure after missed dialysis, paroxysmal Afib, chronic anemia, chronic thrombocytopenia, lower GI bleed, duodenal ulcer, seizures with last seizures 12/2017, L thalamus CVA no residual, pericardial effusion, L lung empyema, spinal stenosis, DDD, chronic cervical and back pain, R eye "lazy", past R ankle and R hand fractures-casted. History of Any Multi-Drug Resistant Organisms: None Reported Past Surgical History: Bladder Surgery, Orthopedic Surgery Additional Past Surgical History / Comment(s): Hemorrhoidectomy, EGDs, colonoscopies, L sided Vats with decortication, pericardial window, hemodialysis fistula, cystoscopies/lithotripsies, bilateral renal stents, double J catheter. Past Anesthesia/Blood Transfusion Reactions: No Reported Reaction Additional Past Anesthesia/Blood Transfusion Reaction / Comment(s): Pt has received blood in past without reaction. Smoking Status: Current every day smoker - Past Family History Father Family Medical History: Cancer, CVA/TIA Additional Family Medical History / Comment(s): Father had lymphoma. He had a CVA Mother Family Medical History: CVA/TIA Additional Family Medical History / Comment(s): Mother had a CVA. Medications and Allergies Home Medications Medication Instructions Recorded Confirmed Type Atorvastatin [Lipitor] 20 mg PO DAILY #30 tablet 07/27/17 06/16/19 Rx amLODIPine [Norvasc] 5 mg PO BID tab 07/27/17 06/16/19 Rx Gabapentin [Neurontin] 100 mg PO BID #60 cap 12/25/17 06/16/19 Rx levETIRAcetam [Keppra] 1,000 mg PO Q12HR #120 tab 12/25/17 06/16/19 Rx Sodium Bicarbonate Tab 650 mg PO TID 02/11/18 06/16/19 History Labetalol [Trandate] 200 mg PO BID 09/03/18 06/16/19 History Furosemide [Lasix] 80 mg PO BID 06/16/19 06/16/19 History Sevelamer [Renvela] 800 mg PO AC-TID 06/16/19 06/16/19 History cloNIDine HCL [Catapres] 0.1 mg PO TID PRN 06/16/19 06/16/19 History hydrALAZINE HCL [Apresoline] 100 mg PO TID 06/16/19 06/16/19 History Allergies Allergy/AdvReac Type Severity Reaction Status Date / Time No Known Allergies Allergy Verified 06/16/19 10:25 Physical Exam Vitals: Vital Signs Temp Pulse Resp BP Pulse Ox 06/16/19 13:49 80 16 96 06/16/19 11:07 85 06/16/19 11:00 82 06/16/19 10:29 82 20 93 L 06/16/19 10:12 98.1 F 83 24 177/95 84 L Intake and Output 06/15/19 06/16/19 06/16/19 22:59 06:59 14:59 Other: Weight 70.307 kg - Constitutional General appearance: cooperative, no acute distress - EENT Eyes: anicteric sclerae, EOMI, PERRLA ENT: NA/AT, normal oropharynx - Neck Neck: normal ROM - Respiratory Respiratory: bilateral: CTA, negative: diminished, dullness, rales, rhonchi - Cardiovascular Rhythm: regular Heart sounds: normal: S1, S2 Abnormal Heart Sounds: no systolic murmur, no diastolic murmur, no rub, no S3 Gallop, no S4 Gallop, no click, no other leg Peripheral Edema: bilateral: 1+ - Gastrointestinal General gastrointestinal: normal bowel sounds, soft, tenderness (Negative right upper quadrant) - Integumentary Integumentary: decreased turgor, normal - Neurologic Neurologic: CNII-XII intact - Musculoskeletal Musculoskeletal: generalized weakness, strength equal bilaterally - Psychiatric Psychiatric: A&O x's 3, appropriate affect, intact judgment & insight Results CBC & Chem 7: 06/16/19 10:30 06/16/19 10:30 Labs: Abnormal Lab Results - Last 24 Hours (Table) 06/16/19 06/16/19 Range/Units 10:30 10:30 RBC 2.38 L (4.30-5.90) m/uL Hgb 8.1 L (13.0-17.5) gm/dL Hct 25.1 L (39.0-53.0) % MCV 105.5 H (80.0-100.0) fL RDW 17.3 H (11.5-15.5) % Neutrophils # 7.8 H (1.3-7.7) k/uL Lymphocytes # 0.5 L (1.0-4.8) k/uL Potassium 7.1 H* (3.5-5.1) mmol/L BUN 58 H (9-20) mg/dL Creatinine 13.33 H* (0.66-1.25) mg/dL Laboratory Results WBC 8.9 k/uL (3.8-10.6) 06/16/19 10:30 RBC 2.38 m/uL (4.30-5.90) L 06/16/19 10:30 Hgb 8.1 gm/dL (13.0-17.5) L 06/16/19 10:30 Hct 25.1 % (39.0-53.0) L 06/16/19 10:30 MCV 105.5 fL (80.0-100.0) H 06/16/19 10:30 MCH 33.8 pg (25.0-35.0) 06/16/19 10:30 MCHC 32.1 g/dL (31.0-37.0) 06/16/19 10:30 RDW 17.3 % (11.5-15.5) H 06/16/19 10:30 Plt Count 151 k/uL (150-450) 06/16/19 10:30 Neutrophils % 87 % 06/16/19 10:30 Lymphocytes % 6 % 06/16/19 10:30 Monocytes % 4 % 06/16/19 10:30 Eosinophils % 1 % 06/16/19 10:30 Basophils % 1 % 06/16/19 10:30 Neutrophils # 7.8 k/uL (1.3-7.7) H 06/16/19 10:30 Lymphocytes # 0.5 k/uL (1.0-4.8) L 06/16/19 10:30 Monocytes # 0.3 k/uL (0-1.0) 06/16/19 10:30 Eosinophils # 0.1 k/uL (0-0.7) 06/16/19 10:30 Basophils # 0.1 k/uL (0-0.2) 06/16/19 10:30 Anisocytosis Slight 06/16/19 10:30 Macrocytosis Moderate 06/16/19 10:30 PT 11.1 sec (9.0-12.0) 06/16/19 10:30 INR 1.1 (<1.2) 06/16/19 10:30 APTT 25.5 sec (22.0-30.0) 06/16/19 10:30 Sodium 137 mmol/L (137-145) 06/16/19 10:30 Potassium 7.1 mmol/L (3.5-5.1) H* 06/16/19 10:30 Chloride 99 mmol/L (98-107) 06/16/19 10:30 Carbon Dioxide 24 mmol/L (22-30) 06/16/19 10:30 Anion Gap 14 mmol/L 06/16/19 10:30 BUN 58 mg/dL (9-20) H 06/16/19 10:30 Creatinine 13.33 mg/dL (0.66-1.25) H* 06/16/19 10:30 Est GFR (CKD-EPI)AfAm 4 (>60 ml/min/1.73 sqM) 06/16/19 10:30 Est GFR (CKD-EPI)NonAf 4 (>60 ml/min/1.73 sqM) 06/16/19 10:30 Glucose 78 mg/dL (74-99) 06/16/19 10:30 Calcium 9.5 mg/dL (8.4-10.2) 06/16/19 10:30 Total Bilirubin 1.1 mg/dL (0.2-1.3) 06/16/19 10:30 AST 29 U/L (17-59) 06/16/19 10:30 ALT 24 U/L (21-72) 06/16/19 10:30 Alkaline Phosphatase 80 U/L (38-126) 06/16/19 10:30 Troponin I 0.034 ng/mL (0.000-0.034) 06/16/19 10:30 NT-Pro-B Natriuret Pep [id number] pg/mL 06/16/19 10:30 Total Protein 6.4 g/dL (6.3-8.2) 06/16/19 10:30 Albumin 4.0 g/dL (3.5-5.0) 06/16/19 10:30 Thrombosis Risk Factor Assmnt - DVT/VTE Prophylaxis DVT/VTE Prophylaxis: Mechanical Prophylaxis ordered, Low risk, early ambulation encouraged - Choose All That Apply Each Factor Represents 1 point: Age 41-60 years, Heart failure (<1month) Thrombosis Risk Factor Assessment Total Risk Factor Score: 2 Thrombosis Risk Factor Assessment Level: Low Risk Assessment and Plan Plan: 1. End-stage renal disease with CHF exacerbation secondary to volume overload, history of diastolic CHF, with acute on chronic exacerbation with noncompliance, patient will be emergently dialyzed today, and would be maintained on his TTH as scheduled for hemodialysis as an outpatient, 2. Hyperkalemia, secondary to missed hemodialysis treatments, patient was given D50 50, calcium chloride insulin, and hemodialysis today 3. Multifocal dependent alveolar airspace disease findings reflecting pneumonia against aspiration pneumonia or dependent confluent pulmonary edema, hemoptysis, echocardiogram to be done, sputum cultures, Zosyn IV, consult pulmonary medicine Dr. Fraire tobacco cessation. 3. End-stage renal disease with mineral bone disease maintained on hemodialysis day Saturdays Consult with Dr. Park Hemodialysis for today em ergently, and would require extra therapy treatments for HD tomorrow, ultrafiltration 2-4 L as expected Continue sodium bicarb, PhosLo. 4. Hypertension, hypertensive cardiovascular disease. Continue Norvasc 5 mg twice daily, labetalol 200 mg twice daily, hydralazine 75 mg 3 times daily. 5. History of seizure disorder. Continue Keppra 1000 mg twice daily. 6. History of empyema status post VATS and pericardial window. Respiratory status is stable. 7. History of left thalamus stroke. Continue Lipitor 20 mg daily for secondary prevention. 8History of anemia of chronic disease, maintained on Aranesp 9. Tobacco use and dependence. 1-1/2 pack per day Nicotine patch. 21 mg daily 10. Chronic thrombocytopenia. Currently stable. 11. DVT prophylaxis. KP hose and SCDs. 12. GI prophylaxis. Protonix 13. CODE STATUS: Full code. 14. Noncompliance 15. Oliguria, 1/2-3 times a day for urine output Patient will be admitted to the hospital for a minimum of 2 night stay. Discharge plan: Return home
[2019-06-16 15:21] LABS: Glucose,Whole Blood 45 mg/dL (75-99)
[2019-06-16] MEDS ORDERED: DEXTROSE 50% SYRINGE 50 ML IVP STA (15:22)
[2019-06-16 15:46] LABS: Glucose,Whole Blood 138 mg/dL (75-99)
[2019-06-16] MEDS ORDERED: PIPERACILLIN-TAZOBACTAM 3.375 GM in SODIUM CHLORIDE 0.9% 100 ML IVPB SCH (16:00)
[2019-06-16] MEDS: SODIUM BICARBONATE TAB 650 MG TAB PO SCH ×2 (16:47→20:23)
[2019-06-16] MEDS: SEVELAMER 800 MG TAB PO SCH (18:11)
[2019-06-16] MEDS: GABAPENTIN 100 MG CAP PO SCH (20:20)
[2019-06-16] MEDS: FUROSEMIDE 80 MG TAB PO SCH (20:20)
[2019-06-16] MEDS: LABETALOL 200 MG TAB PO SCH (20:21)
[2019-06-16] MEDS: levETIRAcetam 500 MG TAB PO SCH (20:21)
[2019-06-16] MEDS: amLODIPine 5 MG TAB PO SCH (20:21)
[2019-06-16] MEDS: PIPERACILLIN-TAZOBACTAM 3.375 GM in SODIUM CHLORIDE 0.9% 100 ML IVPB SCH (20:21)
[2019-06-17 02:01] LABS: Iron Saturation 9.57 (15.00-50.00)
[2019-06-17] MEDS: SEVELAMER 800 MG TAB PO SCH ×3 (06:03→16:58)
[2019-06-17 07:45] LABS: Anisocytosis Slight; Basophils # (A) 0.1 k/uL (0-0.2); Basophils % (A) 1 %; Eosinophils # (A) 0.1 k/uL (0-0.7); Eosinophils % (A) 1 %; HGB 7.7 gm/dL (13.0-17.5); Lymphocytes # (A) 0.6 k/uL (1.0-4.8); Lymphocytes % (A) 9 %; MCH 32.6 pg (25.0-35.0); MCV 101.7 fL (80.0-100.0); Macrocytosis Slight; Monocytes # (A) 0.3 k/uL (0-1.0); Monocytes % (A) 5 %; Neutrophils # (A) 5.4 k/uL (1.3-7.7); Neutrophils % (A) 83 %; Platelet Count 162 k/uL (150-450); RBC 2.36 m/uL (4.30-5.90); RDW 16.5 % (11.5-15.5); WBC 6.5 k/uL (3.8-10.6)
[2019-06-17 07:50] LABS: Albumin 3.8 g/dL (3.5-5.0); Calcium 8.8 mg/dL (8.4-10.2); Potassium 4.8 mmol/L (3.5-5.1); Total Bilirubin 1.3 mg/dL (0.2-1.3); Total Protein 6.2 g/dL (6.3-8.2)
--- NOTE | 2019-06-17 08:29 | XR ---
EXAMINATION TYPE: XR chest 2V DATE OF EXAM: 06/17/2019 COMPARISON: 06/16/2019 HISTORY: 19-year-old male with shortness of breath, difficulty breathing TECHNIQUE: PA and lateral views FINDINGS: Heart upper limits of normal in size. Mild elongation thoracic aorta. Patchy interstitial and airspac e opacities are present mid and lower lungs. Trace effusions. Aeration minimally improved. IMPRESSION: Persistent but slightly improved mid and lower lung infiltrates. Trace effusions.
[2019-06-17] MEDS: SODIUM BICARBONATE TAB 650 MG TAB PO SCH ×3 (08:58→21:25)
[2019-06-17] MEDS: amLODIPine 5 MG TAB PO SCH ×2 (08:58→21:25)
[2019-06-17] MEDS: ATORVASTATIN 20 MG TAB PO SCH (08:58)
[2019-06-17] MEDS: FUROSEMIDE 80 MG TAB PO SCH ×2 (08:58→21:24)
[2019-06-17] MEDS: GABAPENTIN 100 MG CAP PO SCH ×2 (08:58→21:24)
[2019-06-17] MEDS: LABETALOL 200 MG TAB PO SCH ×2 (08:58→21:25)
[2019-06-17] MEDS: levETIRAcetam 500 MG TAB PO SCH ×2 (08:58→21:25)
[2019-06-17] MEDS: PIPERACILLIN-TAZOBACTAM 3.375 GM in SODIUM CHLORIDE 0.9% 100 ML IVPB SCH (08:59)
[2019-06-17] MEDS: NICOTINE 21MG/24HR PATCH TRANSDERM SCH (08:59)
--- NOTE | 2019-06-17 11:46 | P.PN ---
Subjective Patient is seen in follow-up for end-stage renal disease. He is maintained on hemodialysis on a Saturday schedule. Patient missed one treatment prior to dialysis. Potassium is normal today. Tolerated hemodialysis well yesterday with goal 3 L ultrafiltration. No chest pain. Dyspnea improved. Vital signs are stable. General: The patient appeared well nourished and normally developed. HEENT: Head exam is unremarkable. Neck is without jugular venous distension. LUNGS: Lungs are clear to auscultation and percussion. Breath sounds decreased. HEART: Rate and Rhythm are regular. First and second heart sounds normal. No mu rmurs, rubs or gallops. ABDOMEN: Abdominal exam reveals normal bowel sounds. Non-tender and non-dis tended. No evidence of peritonitis. EXTREMITITES: No clubbing, cyanosis, or edema. Objective - Vital Signs Vital signs: Vital Signs Temp 98.4 F 06/17/19 08:00 Pulse 73 06/17/19 08:00 Resp 18 06/17/19 08:00 BP 156/78 06/17/19 08:00 Pulse Ox 97 06/17/19 08:00 Intake & Output 06/16/19 06/17/19 06/17/19 18:59 06:59 18:59 Intake Total 500 100 240 Output Total 3500 Balance -3000 100 240 Weight 70.307 kg Intake: Intake, IV Titration 100 Amount Piperacillin-Tazobactam 3 100 .375 gm In Sodium Chloride 0.9% 100 ml @ 25 mls/hr IVPB Q12HR [facility] Rx #:[id number] Oral 240 Hemodialysis 500 Output: Hemodialysis 3500 Other: # Voids 1 - Labs CBC & Chem 7: 06/17/19 06:50 06/17/19 06:50 Labs: Abnormal Lab Results - Last 24 Hours (Table) 06/16/19 06/16/19 06/16/19 Range/Units 10:30 15:20 15:44 RBC (4.30-5.90) m/uL Hgb (13.0-17.5) gm/dL Hct (39.0-53.0) % MCV (80.0-100.0) fL RDW (11.5-15.5) % Lymphocytes # (1.0-4.8) k/uL Sodium (137-145) mmol/L Chloride (98-107) mmol/L BUN (9-20) mg/dL Creatinine (0.66-1.25) mg/dL Glucose (74-99) mg/dL POC Glucose (mg/dL) 45 L 138 H (75-99) mg/dL Iron 22 L (65-175) ug/dL Iron Saturation 9.57 L (15.00-50.00) Ferritin 918.9 H (22.0-322.0) ng/mL ALT (21-72) U/L Total Protein (6.3-8.2) g/dL 06/17/19 06/17/19 Range/Units 06:50 06:50 RBC 2.36 L (4.30-5.90) m/uL Hgb 7.7 L (13.0-17.5) gm/dL Hct 24.0 L (39.0-53.0) % MCV 101.7 H (80.0-100.0) fL RDW 16.5 H (11.5-15.5) % Lymphocytes # 0.6 L (1.0-4.8) k/uL Sodium 135 L (137-145) mmol/L Chloride 95 L (98-107) mmol/L BUN 37 H (9-20) mg/dL Creatinine 8.54 H* (0.66-1.25) mg/dL Glucose 127 H (74-99) mg/dL POC Glucose (mg/dL) (75-99) mg/dL Iron (65-175) ug/dL Iron Saturation (15.00-50.00) Ferritin (22.0-322.0) ng/mL ALT 18 L (21-72) U/L Total Protein 6.2 L (6.3-8.2) g/dL Assessment and Plan Plan: assessment: 1. End-stage renal disease maintained on hemodialysis on a Saturday schedule. 2. Dyspnea secondary to volume overload.better. 3. History of diastolic CHF. 4. Hypertension with chronic kidney disease. Partially due to excess volume. 5. Noncompliance with hemodialysis treatments outpatient. 6. Hyperkalemia secondary to noncompliance with hemodialysis. 7. Chronic kidney disease mineral bone disease maintained on renvela. 8. Anemia of chronic kidney disease. Iron def noted. Plan: Extra HD today with goal 2 L UF. IV iron x 3 doses - first dose today. Maintain Aranesp. Low-salt diet. Maintain current anti-hypertensives.
--- NOTE | 2019-06-17 13:16 | ECHOF ---
Referral Reason:chf, hemoptysis, MEASUREMENTS -------- HEIGHT: 165.1 cm WEIGHT: 70.3 kg BP: 142/72 RVIDd: 3.9 cm (< 3.3) IVSd: 1.4 cm (0.6 - 1.1) LVIDd: 5.1 cm (3.9 - 5.3) LVPWd: 1.8 cm (0.6 - 1.1) IVSs: 2.0 cm LVIDs: 3.7 cm LVPWs: 1.8 cm LAESV Index (A-L): 49.86 ml/m Ao Diam: 3.1 cm (2.0 - 3.7) AV Cusp: 2.4 cm (1.5 - 2.6) LA Diam: 4.4 cm (2.7 - 3.8) EPSS: 1.7 cm MV E To: 1.13 m/s MV DecT: 244 ms MV A To: 0.83 m/s MV E/A Ratio: 1.36 RAP: 20.00 mmHg RVSP: 63.97 mmHg MV EF SLOPE: 70.26 mm/s (70 - 150) MV EXCURSION: 1.16 cm (> 18.000) FINDINGS -------- Sinus rhythm. This was a technically good study. The left ventricular size is normal. There is severe concentric left ventricular hypertrophy. Ove rall left ventricular systolic function is low-normal with, an EF between 50 - 55 %. Mitral Doppler inflow pattern suggests diastolic filling abnormality. The right ventricle is moderately enlarged. Left atrium is severely dilated by volume. The right atrial size is normal. Interatrial and interventricular septum intact. The aortic valve is trileaflet and appears structurally normal. There is no evidence of aortic regu rgitation. There is no evidence of aortic stenosis. Mild mitral annular calcification present. [id number] mitral regurgitation is present. Moderate tricuspid regurgitation present. There is severe pulmonary hypertension. The right ventr icular systolic pressure, as measured by Doppler, is 63.97mmHg. There is no pulmonic regurgitation present. The aortic root size is normal. The inferior vena cava is dilated with poor inspiratory collapse which is consistent with estimated r ight atrial pressure of 20 mmHg. There is no pericardial effusion. CONCLUSIONS -------- 1. Sinus rhythm. 2. This was a technically good study. 3. The left ventricular size is normal. 4. There is severe concentric left ventricular hypertrophy. 5. Overall left ventricular systolic function is low-normal with, an EF between 50 - 55 %. 6. Mitral Doppler inflow pattern suggests diastolic filling abnormality. 7. The right ventricle is moderately enlarged. 8. Left atrium is severely dilated by volume. 9. The right atrial size is normal. 10. Interatrial and interventricular septum intact. 11. The aortic valve is trileaflet and appears structurally normal. 12. There is no evidence of aortic regurgitation. 13. There is no evidence of aortic stenosis. 14. Mild mitral annular calcification present. 15. [id number] mitral regurgitation is present. 16. Moderate tricuspid regurgitation present. 17. There is severe pulmonary hypertension. 18. The right ventricular systolic pressure, as measured by Doppler, is 63.97mmHg. 19. There is no pulmonic regurgitation present. 20. The aortic root size is normal. 21. The inferior vena cava is dilated with poor inspiratory collapse which is consistent with estimat ed right atrial pressure of 20 mmHg. 22. There is no pericardial effusion. TRACK LAYING MACHINE OPERATOR: Mamie Cruz RDCS
--- NOTE | 2019-06-17 14:08 | P.PN ---
Subjective Progress Note Date: 06/17/19 This is a 49-year-old male patient of Dr. Holguin with past medical history of end-stage renal disease secondary to postobstructive uropathy second from numerous kidney stones on hemodialysis 3 times weekly-Saturdays History of empyema status post VATS and pericardial window. seizure disorder, left thalamus stroke noncompliance for hemodialysis, currently a 1-1/2 pack per day smoker, with recurrent admissions for respiratory failure secondary to fluid overload from missing dialysis treatments requiring mechanical ventilation, chronic thrombocytopenia, tobacco use and dependence paroxysmal atrial fibrillation in February 2018. He was in the emergency room secondary to increasing shortness of breath, he apparently has missed his scheduled dialysis on Saturday, his last hemodialysis was Saturday, went to the dialysis unit today but was extremely weak, and shortness of breath. Patient was unable to get out of the car, and was subsequently sent in from emergency room for further care. Patient was having shortness of breath PND, no palpitations no chest pain, no fever no chills, no nausea no vomiting or diarrhea. Patient has his usual weekend with a barbecue, and had more salt than usual, denies any excessive amount of fluids, potassium was 7.1 on the ER the [facility], and was given D50 in the emergency room. Along with calcium hemoglobin is stable at 8.1, consult with nephrology and would be emergently dialyzed today, chest x-ray shows new multifocal disease airspace bilateral, patient has had cough for the past 2 weeks, with hemoptysis consult also made with Dr. Fraire from pulmonary medicine sputum cultures, IV Zosyn renal dosing. Patient was diaphoretic when seen in the emergency room for evaluation, family members at bedside, they were concerned on hemoptysis as well as the cough and progressive weakness 06/17: Patient denies any new complaints today. He will be resumed back on hydralazine at half his home dose. Echocardiogram has been taken and report is pending. Patient denies having any cough, recent aspiration, denies any choking. He denies any vomiting. Repeat chest x-ray reveals persistent but slightly improved mid and lower lung infiltrates. Trace effusions. Patient has been afebrile, blood pressure 155/75, heart rate 76, pulse ox 97% on 4 L nasal cannula. Pulmonary medicine is on consult. Patient is scheduled for repeat hemodialysis today. Objective - Vital Signs Vital signs: Vital Signs Temp 98 F 06/17/19 02:58 Pulse 75 06/17/19 02:58 Resp 20 06/17/19 02:58 BP 142/72 06/17/19 02:58 Pulse Ox 97 06/17/19 02:58 Intake & Output 06/16/19 06/17/19 06/17/19 18:59 06:59 18:59 Intake Total 500 100 240 Output Total 3500 Balance -3000 100 240 Weight 70.307 kg Intake: Intake, IV Titration 100 Amount Piperacillin-Tazobactam 3 100 .375 gm In Sodium Chloride 0.9% 100 ml @ 25 mls/hr IVPB Q12HR KRISTY Rx #:[id number] Oral 240 Hemodialysis 500 Output: Hemodialysis 3500 Other: # Voids 1 - Exam Review of Systems Constitutional: Reports as per HPI, Reports anorexia, Reports lethargy, Reports weight gain, Denies chills, Denies chronic headaches, Denies chronic pain, Denies daytime sleepiness, Denies fatigue, Denies fever, Denies malaise, Denies night sweats, Denies poor appetite, Denies sweats, Denies weakness, Denies weight loss Ears, nose, mouth and throat: Reports as per HPI, Denies ant. neck pain, Denies bleeding gums, Denies dental pain, Denies dysphagia, Denies epistaxis, Denies headache, Denies hoarseness, Denies mouth pain, Denies nasal congestion, Denies nasal discharge, Denies neck fullness/pressure, Denies neck lump, Denies nose pain, Denies odynophagia, Denies post-nasal drip, Denies sinus pain, Denies sinus pressure, Denies swelling in mouth, Denies swelling in throat, Denies sore throat, Denies vertigo, Denies voice changes Cardiovascular: Reports as per HPI, Reports shortness of breath-improving, Denies chest pain, Denies claudication, Denies decreased exercise tolerance, Denies dyspnea on exertion, Denies edema, Denies high blood pressure, Denies irregular heart beat, Denies leg edema, Denies lightheadedness, Denies orthopnea, Denies palpitations, Denies paroxysmal nocturnal dyspnea, Denies phlebitis, Denies rapid heart beat, Denies syncope Respiratory: Reports as per HPI, Denies congestion, Denies cough, Denies cough with sputum, Denies dyspnea, Denies excessive sputum, Denies hemoptysis, Denies home oxygen, Denies pain, Denies pain on inspiration, Denies pleurisy, Denies respiratory infections, Denies sleep apnea, Denies snoring, Denies wheezing Gastrointestinal: Reports as per HPI, Reports abdominal pain (Intermittent right upper quadrant last pain 7 days ago) Genitourinary: Reports as per HPI Musculoskeletal: Reports as per HPI, Reports gait dysfunction, Reports muscle cramps Integumentary: Reports as per HPI, Denies acne, Denies boils, Denies brittle nails, Denies change in hair/nails, Denies color changes, Denies darkening of skin, Denies depigmentation, Denies dryness, Denies foot/leg ulcers, Denies growths, Denies hirsutism, Denies lesions, Denies onychomycosis, Denies pruritus, Denies rash, Denies sores, Denies striae, Denies unusual bruising, Denies wounds Neurological: Reports as per HPI, Reports change in mentation, Denies aphasia, Denies ataxia, Denies balance difficulties, Denies burning pain, Denies change in smell/taste, Denies change in speech, Denies confusion, Denies convulsions, Denies double vision, Denies gait dysfunction, Denies head injury, Denies headaches, Denies hearing difficulties, Denies lack of coordination, Denies loss of vision, Denies memory loss, Denies migraines, Denies motor disturbance, Denies numbness, Denies paralysis, Denies paresthesias, Denies seizures, Denies sensory deficit, Denies spasticity, Denies syncope, Denies tic, Denies tingling, Denies transient paralysis, Denies tremors, Denies vertigo, Denies weakness, Denies visual changes Psychiatric: Reports as per HPI, Denies anhedonia, Denies anxiety, Denies an xiety attacks, Denies change in appetite, Denies change in libido, Denies change in sleep habits, Denies confusion, Denies depression, Denies difficulty concentrating, Denies disorientation, Denies hallucinations, Denies hopelessness, Denies hypersomnia, Denies insomnia, Denies irritability, Denies memory loss, Denies mood swings, Denies paranoia, Denies sadness/tearfulness, Denies sleep disturbances, Denies suicidal ideation Endocrine: Reports as per HPI Hematologic/Lymphatic: Reports as per HPI, Denies easy bleeding, Denies easy bruising, Denies lymphadenopathy, Denies lymphedema, Denies thrombophilia Allergic/Immunologic: Reports as per HPI, Denies allergic rhinitis, Denies anaphylaxis, Denies angioedema, Denies gluten intolerance, Denies persistent infections, Denies seasonal allergies, Denies urticaria, Denies wheezing - Constitutional General appearance: cooperative, no acute distress - EENT Eyes: anicteric sclerae, EOMI, PERRLA ENT: NA/AT, normal oropharynx - Neck Neck: normal ROM - Respiratory Respiratory: Crackles right base, negative: diminished, dullness, rales, rhonchi - Cardiovascular Rhythm: regular Heart sounds: normal: S1, S2 Abnormal Heart Sounds: no systolic murmur, no diastolic murmur, no rub, no S3 Gallop, no S4 Gallop, no click, no other leg Peripheral Edema: bilateral: 1+ - Gastrointestinal General gastrointestinal: normal bowel sounds, soft, tenderness (Negative right upper quadrant) - Integumentary Integumentary: decreased turgor, normal - Neurologic Neurologic: CNII-XII intact - Musculoskeletal Musculoskeletal: generalized weakness, strength equal bilaterally - Psychiatric Psychiatric: A&O x's 3, appropriate affect, intact judgment & insight - Labs CBC & Chem 7: 06/17/19 06:50 06/17/19 06:50 Labs: Abnormal Lab Results - Last 24 Hours (Table) 06/16/19 06/16/19 06/16/19 Range/Units 10:30 10:30 10:30 RBC 2.38 L (4.30-5.90) m/uL Hgb 8.1 L (13.0-17.5) gm/dL Hct 25.1 L (39.0-53.0) % MCV 105.5 H (80.0-100.0) fL RDW 17.3 H (11.5-15.5) % Neutrophils # 7.8 H (1.3-7.7) k/uL Lymphocytes # 0.5 L (1.0-4.8) k/uL Sodium (137-145) mmol/L Potassium 7.1 H* (3.5-5.1) mmol/L Chloride (98-107) mmol/L BUN 58 H (9-20) mg/dL Creatinine 13.33 H* (0.66-1.25) mg/dL Glucose (74-99) mg/dL POC Glucose (mg/dL) (75-99) mg/dL Iron 22 L (65-175) ug/dL Iron Saturation 9.57 L (15.00-50.00) Ferritin 918.9 H (22.0-322.0) ng/mL ALT (21-72) U/L Total Protein (6.3-8.2) g/dL 06/16/19 06/16/19 06/17/19 Range/Units 15:20 15:44 06:50 RBC 2.36 L (4.30-5.90) m/uL Hgb 7.7 L (13.0-17.5) gm/dL Hct 24.0 L (39.0-53.0) % MCV 101.7 H (80.0-100.0) fL RDW 16.5 H (11.5-15.5) % Neutrophils # (1.3-7.7) k/uL Lymphocytes # 0.6 L (1.0-4.8) k/uL Sodium (137-145) mmol/L Potassium (3.5-5.1) mmol/L Chloride (98-107) mmol/L BUN (9-20) mg/dL Creatinine (0.66-1.25) mg/dL Glucose (74-99) mg/dL POC Glucose (mg/dL) 45 L 138 H (75-99) mg/dL Iron (65-175) ug/dL Iron Saturation (15.00-50.00) Ferritin (22.0-322.0) ng/mL ALT (21-72) U/L Total Protein (6.3-8.2) g/dL 06/17/19 Range/Units 06:50 RBC (4.30-5.90) m/uL Hgb (13.0-17.5) gm/dL Hct (39.0-53.0) % MCV (80.0-100.0) fL RDW (11.5-15.5) % Neutrophils # (1.3-7.7) k/uL Lymphocytes # (1.0-4.8) k/uL Sodium 135 L (137-145) mmol/L Potassium (3.5-5.1) mmol/L Chloride 95 L (98-107) mmol/L BUN 37 H (9-20) mg/dL Creatinine 8.54 H* (0.66-1.25) mg/dL Glucose 127 H (74-99) mg/dL POC Glucose (mg/dL) (75-99) mg/dL Iron (65-175) ug/dL Iron Saturation (15.00-50.00) Ferritin (22.0-322.0) ng/mL ALT 18 L (21-72) U/L Total Protein 6.2 L (6.3-8.2) g/dL Assessment and Plan Plan: 1. End-stage renal disease with acute on chronic diastolic heart failure secondary to noncompliance, patient will be emergently dialyzed today consult with Dr. Xavier hayes. Patient will undergo repeat hemodialysis today. Aranesp has been added, low salt diet. 2. Hyperkalemia, secondary to missed hemodialysis treatments, patient was given D50 50, calcium chloride insulin, and hemodialysis. 3. Multifocal dependent alveolar airspace disease findings reflecting pneumonia against aspiration pneumonia or dependent confluent pulmonary edema, hemoptysis, echocardiogram to be done, sputum cultures, Zosyn IV, consult pulmonary medicine Dr. Fraire tobacco cessation. 3. End-stage renal mineral bone disease. Continue Renvela 800 mg 3 times daily, sodium bicarb 650 mg 3 times daily. 4. Hypertension, hypertensive cardiovascular disease. Continue Norvasc 5 mg twice daily, labetalol 200 mg twice daily, hydralazine hydralazine will be resumed at 50 mg 3 times daily which is half his home dose. 5. History of seizure disorder. Continue Keppra 1000 mg twice daily. 6. History of empyema status post VATS and pericardial window. Respiratory status is stable. 7. History of left thalamus stroke. Continue Lipitor 20 mg daily for secondary prevention. 8. History of anemia of chronic disease, maintained on Aranesp 9. Tobacco use and dependence. 1-1/2 pack per day Nicotine patch. 21 mg daily 10. Chronic thrombocytopenia. Currently stable. 11. DVT prophylaxis. KP hose and SCDs. 12. GI prophylaxis. Protonix 13. CODE STATUS: Full code. 14. Noncompliance 15. Oliguria, 1/2-3 times a day for urine output Discharge plan: Return home Impression and plan of care have been directed as dictated by the signing physician. Doretha Brumfield nurse practitioner acting as scribe for signing physician.
[2019-06-17 14:33] VITALS: BMI 25.7
--- NOTE | 2019-06-17 14:54 | P.CNPUL ---
History of Present Illness Consult date: 06/17/19 Requesting physician: Jacqueline English Reason for consult: dyspnea, abnormal CXR/CT Chief complaint: Pulmonary edema, dyspnea History of present illness: This a 49-year-old white male patient with end-stage renal disease on hemodialysis on Saturday schedule, who presented to the em ergency department on 06/16/2019 with complaints of shortness of breath, cough, with pink tinged sputum, but denied any fever, denied any chills, no chest pain, no lightheadedness, dizziness, no abdominal pain, no nausea vomiting or diarrhea. Patient apparently had missed his Saturday dialysis, because him and his were babysitting their grandkids, on Saturday his breathing started getting worse, and by Saturday he started developing some swelling in his lower extremities and his breathing continued to worsen. He came in to the emergency department on Saturday on 06/16/2019. Chest x-ray was completed showing multifocal dependent alveolar airspace disease, with consideration to aspiration pneumonia or dependent confluent pulmonary edema. Patient had hemodialysis treatment yesterday with removal of 3 L of fluid, and follow-up chest x-ray today showed improvement in the mid and lower lung infiltrates with trace pleural effusions. No leukocytosis on blood work, admission blood work showed a white blood cell count of 8.9, hemoglobin of 8.1, INR 1.1, sodium of 137, potassium was 7.1, chloride was 99, CO2 is 24, BUN was 58, creatinine was 13.3, proBNP was elevated at 136630, troponin was 0.034. Patient is awaiting another hemodialysis treatment today, but he is already feeling significantly better, is currently on 4 L of oxygen with a pulse ox of 97%, he has been afebrile, vital signs are stable, still has occasional cough with what appears to be pink frothy sputum in the sputum cup. He was placed on empiric antibiotic coverage in the form of Zosyn, he was given a dose of IV Lasix in the emergency department, he does still produce some urine and he is on maintenance dose of Lasix at 80 mg twice daily. Were consulted for shortness of breath for what appears to be pulmonary edema, related to missed dialysis treatment, fluid overload, doubt pneumonia. Review of Systems All systems: negative Constitutional: Denies chills, Denies fever Eyes: denies blurred vision, denies pain Ears, nose, mouth and throat: Denies headache, Denies sore throat Cardiovascular: Denies chest pain, Denies shortness of breath Respiratory: Reports dyspnea, Reports home oxygen, Denies cough Gastrointestinal: Denies abdominal pain, Denies diarrhea, Denies nausea, Denies vomiting Musculoskeletal: Denies myalgias Integumentary: Denies pruritus, Denies rash Neurological: Denies numbness, Denies weakness Psychiatric: Denies anxiety, Denies depression Endocrine: Denies fatigue, Denies weight change Past Medical History Past Medical History: Atrial Fibrillation, Blood Disorder, CVA/TIA, Eye Disorder, GI Bleed, Hyperlipidemia, Hypertension, Renal Disease, Seizure Disorder Additional Past Medical History / Comment(s): End-stage renal disease on hemodialysis schedule of Saturday, and Saturday with last dialysis 10/20/18, urolithiasis/nephrolithiasis, acute hypoxic respiratory failure after missed dialysis, paroxysmal Afib, chronic anemia, chronic thrombocytopenia, lower GI bleed, duodenal ulcer, seizures with last seizures 12/2017, 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 History of Any Multi-Drug Resistant Organisms: None Reported Past Surgical History: Bladder Surgery, Orthopedic Surgery Additional Past Surgical History / Comment(s): Hemorrhoidectomy, EGDs, colonoscopies, L sided Vats with decortication, pericardial window, hemodialysis fistula, cystoscopies/lithotripsies, bilateral renal stents, double J catheter. Past Anesthesia/Blood Transfusion Reactions: No Reported Reaction Additional Past Anesthesia/Blood Transfusion Reaction / Comment(s): Pt has received blood in past without reaction. Past Psychological History: No Psychological Hx Reported Additional Psychological History / Comment(s): Pt resides with his spouse of 17 yrs. He drives rarely. His spouse takes him to [employer] or his sister does. He is otherwise independent. Smoking Status: Current every day smoker Past Alcohol Use History: None Reported Additional Past Alcohol Use History / Comment(s): Pt started smoking in 1984 at 1-1.5 packs per day. He denies any marijuana, street drug use or alcohol use. Past Drug Use History: None Reported - Past Family History Father Family Medical History: Cancer, CVA/TIA Additional Family Medical History / Comment(s): Father had lymphoma. He had a CVA Mother Family Medical History: CVA/TIA Additional Family Medical History / Comment(s): Mother had a CVA. Medications and Allergies Home Medications Medication Instructions Recorded Confirmed Type Atorvastatin [Lipitor] 20 mg PO DAILY #30 tablet 07/27/17 06/16/19 Rx amLODIPine [Norvasc] 5 mg PO BID tab 07/27/17 06/16/19 Rx Gabapentin [Neurontin] 100 mg PO BID #60 cap 12/25/17 06/16/19 Rx levETIRAcetam [Keppra] 1,000 mg PO Q12HR #120 tab 12/25/17 06/16/19 Rx Sodium Bicarbonate Tab 650 mg PO TID 02/11/18 06/16/19 History Labetalol [Trandate] 200 mg PO BID 09/03/18 06/16/19 History Furosemide [Lasix] 80 mg PO BID 06/16/19 06/16/19 History Sevelamer [Renvela] 800 mg PO AC-TID 06/16/19 06/16/19 History cloNIDine HCL [Catapres] 0.1 mg PO TID PRN 06/16/19 06/16/19 History hydrALAZINE HCL [Apresoline] 100 mg PO TID 06/16/19 06/16/19 History Allergies Allergy/AdvReac Type Severity Reaction Status Date / Time No Known Allergies Allergy Verified 06/16/19 10:25 Physical Exam Vitals: Vital Signs Temp Pulse Pulse Resp BP BP Pulse Ox 06/17/19 12:00 98.7 F 76 18 155/75 97 06/17/19 08:00 98.4 F 73 18 156/78 97 06/17/19 02:58 98 F 75 18 142/72 97 06/16/19 23:03 73 18 134/75 96 06/16/19 20:00 97.8 F 77 18 132/78 97 06/16/19 17:55 97.4 F L 78 20 154/92 95 06/16/19 16:51 97.4 F L 71 18 149/91 06/16/19 15:06 75 17 158/96 94 L Intake and Output 06/16/19 06/17/19 06/17/19 22:59 06:59 14:59 Intake Total 500 100 480 Output Total 3500 300 Balance -3000 100 180 Intake: Intake, IV Titration 100 Amount Piperacillin-Tazobactam 3 100 .375 gm In Sodium Chloride 0.9% 100 ml @ 25 mls/hr IVPB Q12HR KRISTY Rx #:[id number] Oral 480 Hemodialysis 500 Output: Urine 300 Hemodialysis 3500 Other: # Voids 1 0 GENERAL EXAM: Alert, pleasant, 49-year-old white male, on 4 L of oxygen comfortable in no apparent distress. HEAD: Normocephalic/atraumatic. EYES: Normal reaction of pupils, equal size. Conjunctiva pink, sclera white. NOSE: Clear with pink turbinates. THROAT: No erythema or exudates. NECK: No masses, no JVD, no thyroid enlargement, no adenopathy. CHEST: No chest wall deformity. Symmetrical expansion. LUNGS: Equal air entry with limited basilar crackles, but wheeze, rhonchi or dullness. CVS: Regular rate and rhythm, normal S1 and S2, no gallops, no murmurs, no rubs ABDOMEN: Soft, nontender. No hepatosplenomegaly, normal bowel sounds, no guarding or rigidity. EXTREMITIES: No clubbing, no edema, no cyanosis, 2+ pulses and upper and lower extremities. AV fistula MUSCULOSKELETAL: Muscle strength and tone normal. SPINE: No scoliosis or deformity SKIN: No rashes CENTRAL NERVOUS SYSTEM: Alert and oriented -3. No focal deficits, tone is normal in all 4 extremities. PSYCHIATRIC: Alert and oriented -3. Appropriate affect. Intact judgment and insight. Results - Laboratory Findings CBC and BMP: 06/17/19 06:50 06/17/19 06:50 PT/INR, D-dimer PT 11.1 sec (9.0-12.0) 06/16/19 10:30 INR 1.1 (<1.2) 06/16/19 10:30 Abnormal lab findings: Abnormal Labs 06/16/19 06/16/19 06/16/19 10:30 10:30 10:30 RBC 2.38 L Hgb 8.1 L Hct 25.1 L MCV 105.5 H RDW 17.3 H Neutrophils # 7.8 H Lymphocytes # 0.5 L Sodium Potassium 7.1 H* Chloride BUN 58 H Creatinine 13.33 H* Glucose POC Glucose (mg/dL) Iron 22 L Iron Saturation 9.57 L Ferritin 918.9 H ALT Total Protein 06/16/19 06/16/19 06/17/19 15:20 15:44 06:50 RBC 2.36 L Hgb 7.7 L Hct 24.0 L MCV 101.7 H RDW 16.5 H Neutrophils # Lymphocytes # 0.6 L Sodium Potassium Chloride BUN Creatinine Glucose POC Glucose (mg/dL) 45 L 138 H Iron Iron Saturation Ferritin ALT Total Protein 06/17/19 06:50 RBC Hgb Hct MCV RDW Neutrophils # Lymphocytes # Sodium 135 L Potassium Chloride 95 L BUN 37 H Creatinine 8.54 H* Glucose 127 H POC Glucose (mg/dL) Iron Iron Saturation Ferritin ALT 18 L Total Protein 6.2 L - Diagnostic Findings Chest x-ray: report reviewed, image reviewed Additional studies: EKG reviewed Assessment and Plan Plan: Assessment: #1. Acute pulmonary edema, fluid volume overload, related to missed hemodialysis treatment, doubt pneumonia #2. Hyperkalemia related to missed dialysis treatment, improved with ultrafiltration #3. Acute exacerbation of CHF with mildly reduced left ventricle systolic function, EF of 50-55%, severe pulmonary hypertension, with a pressure of 63.9 mmHg, mild to moderate mitral regurg, moderate tricuspid regurg, no evidence of aortic stenosis #4. End-stage renal disease on hemodialysis on Saturday schedule #5. Chronic atrial fibrillation, currently in sinus rhythm, not on any anticoagulation #6. History of CVA with no residual #7. Degenerative disc disease #8. Chronic neck and back pain #9. Previous history of GI bleeding with previous hemorrhoidectomies #10. Seizure disorder #11. Hypertension #12. Hyperlipidemia #13. Anemia of chronic kidney disease #14. History of pneumonia with parapneumonic effusion requiring thoracoscopy and decortication #15. History of pericardial effusion status post pericardial window in January 2018 Plan: Chest x-ray has been reviewed with Dr. Malone, chart has been reviewed, patient has been seen and evaluated with Dr. Malone, and patient is dyspnea significantly improved with hemodialysis as well as there has been significant improvement on the chest x-ray overnight, there is no fever or leukocytosis, pn eumonia is doubtful. Would continue with the oral diuretics, patient is awaiting another hemodialysis treatment today, echocardiogram results have been noted, vital signs are stable, dyspnea is improving, only occasional cough, no significant congestion, no wheezing. Sputum cultures being sent, however pneumonia is less likely. We can probably discontinue antibiotics in the next 24 hours. Repeat chest x-ray tomorrow morning I performed a history & physical examination of the patient and discussed their management with my nurse practitioner, Kerry Kiran. I reviewed the nurse practitioner's note and agree with the documented findings and plan of care. Lung sounds are positive for diminished breath sounds throughout the lung kent. The findings and the impression was discussed with the patient. I attest to the documentation by the nurse practitioner. Time with Patient: Greater than 30
[2019-06-17] MEDS: SODIUM FERRIC GLUCONAT-SUCROSE 125 MG in SODIUM CHLORIDE 0.9% 100 ML IVPB SCH (15:07)
[2019-06-17] MEDS: hydrALAZINE HCL 50 MG TAB PO SCH ×2 (15:15→21:24)
[2019-06-18 05:58] LABS: Anisocytosis Slight; Basophils % (A) 1 %; Eosinophils # (A) 0.1 k/uL (0-0.7); Eosinophils % (A) 1 %; HCT 23.1 % (39.0-53.0); HGB 7.5 gm/dL (13.0-17.5); Hypochromasia Slight; Lymphocytes # (A) 0.6 k/uL (1.0-4.8); Lymphocytes % (A) 12 %; MCH 33.2 pg (25.0-35.0); MCHC 32.3 g/dL (31.0-37.0); MCV 102.8 fL (80.0-100.0); Macrocytosis Moderate; Mean Platelet Volume 8.3; Monocytes # (A) 0.3 k/uL (0-1.0); Monocytes % (A) 6 %; Neutrophils # (A) 4.2 k/uL (1.3-7.7); Neutrophils % (A) 79 %; Platelet Count 123 k/uL (150-450); RBC 2.24 m/uL (4.30-5.90); RDW 16.3 % (11.5-15.5); WBC 5.3 k/uL (3.8-10.6)
[2019-06-18 06:10] LABS: Albumin 3.7 g/dL (3.5-5.0); Potassium 4.2 mmol/L (3.5-5.1); Total Bilirubin 0.7 mg/dL (0.2-1.3); Total Protein 6.1 g/dL (6.3-8.2)
[2019-06-18] MEDS: SEVELAMER 800 MG TAB PO SCH ×2 (06:53→12:13)
--- NOTE | 2019-06-18 08:06 | XR ---
EXAMINATION TYPE: XR chest 2V DATE OF EXAM: 06/18/2019 COMPARISON: 06/17/2019 TECHNIQUE: PA and lateral views submitted. HISTORY: Shortness of breath FINDINGS: Heart is prominent there is bilateral subsegmental consolidation and interstitial pattern. No pneumot horax. Findings are stable relative to the prior exam. IMPRESSION: 1. Bilateral patchy infiltrate is stable. Correlate for pneumonia including atypical pneumonia. Under lying interstitial pneumonitis or chronic lung disease in the differential diagnosis.
[2019-06-18] MEDS: levETIRAcetam 500 MG TAB PO SCH (09:58)
[2019-06-18] MEDS: GABAPENTIN 100 MG CAP PO SCH (09:58)
[2019-06-18] MEDS: hydrALAZINE HCL 50 MG TAB PO SCH (09:58)
[2019-06-18] MEDS: FUROSEMIDE 80 MG TAB PO SCH (09:58)
[2019-06-18] MEDS: SODIUM BICARBONATE TAB 650 MG TAB PO SCH (09:58)
[2019-06-18] MEDS: ATORVASTATIN 20 MG TAB PO SCH (09:59)
[2019-06-18] MEDS: amLODIPine 5 MG TAB PO SCH (09:59)
[2019-06-18] MEDS: LABETALOL 200 MG TAB PO SCH (10:02)
[2019-06-18] MEDS: NICOTINE 21MG/24HR PATCH TRANSDERM SCH (10:03)
--- NOTE | 2019-06-18 10:38 | P.PN ---
Subjective Patient is seen in follow-up for end-stage renal disease. He is maintained on hemodialysis on a Saturday schedule. Patient missed one treatment prior to dialysis. Potassium is normal today. Tolerated hemodialysis well last 2 days. No chest pain. Dyspnea improved. Dialysis was attempted today but the nurse was unable to cannulate his access and the patient is now refusing to get a treatment today. Vital signs are stable. General: The patient appeared well nourished and normally developed. HEENT: Head exam is unremarkable. Neck is without jugular venous distension. LUNGS: Lungs are clear to auscultation and percussion. Breath sounds decreased. HEART: Rate and Rhythm are regular. First and second heart sounds normal. No murmurs, rubs or gallops. ABDOMEN: Abdominal exam reveals normal bowel sounds. Non-tender and non- distended. No evidence of peritonitis. EXTREMITITES: No clubbing, cyanosis, or edema. Objective - Vital Signs Vital signs: Vital Signs Temp 98.3 F 06/18/19 00:00 Pulse 78 06/18/19 04:00 Resp 17 06/18/19 04:00 BP 151/91 06/18/19 04:00 Pulse Ox 94 L 06/18/19 04:00 Intake & Output 06/17/19 06/18/19 06/18/19 18:59 06:59 18:59 Intake Total 702 Output Total 300 1500 Balance 402 -1500 Weight 70.307 kg 70.4 kg Intake: Oral 702 Output: Urine 300 Hemodialysis 1500 Other: # Voids 0 1 - Labs CBC & Chem 7: 06/18/19 05:42 06/18/19 05:42 Labs: Abnormal Lab Results - Last 24 Hours (Table) 06/18/19 06/18/19 Range/Units 05:42 05:42 RBC 2.24 L (4.30-5.90) m/uL Hgb 7.5 L (13.0-17.5) gm/dL Hct 23.1 L (39.0-53.0) % MCV 102.8 H (80.0-100.0) fL RDW 16.3 H (11.5-15.5) % Plt Count 123 L (150-450) k/uL Lymphocytes # 0.6 L (1.0-4.8) k/uL Sodium 136 L (137-145) mmol/L BUN 30 H (9-20) mg/dL Creatinine 7.12 H* (0.66-1.25) mg/dL Glucose 113 H (74-99) mg/dL Total Protein 6.1 L (6.3-8.2) g/dL Microbiology - Last 24 Hours (Table) 06/17/19 11:20 Gram Stain - Preliminary Sputum Sputum Culture - Preliminary Assessment and Plan Plan: assessment: 1. End-stage renal disease maintained on hemodialysis on a Saturday schedule. 2. Dyspnea secondary to volume overload. Better. 3. History of diastolic CHF. 4. Hypertension with chronic kidney disease. Partially due to excess volume. Stable. 5. Noncompliance with hemodialysis treatments outpatient. 6. Hyperkalemia secondary to noncompliance with hemodialysis. Improved. 7. Chronic kidney disease mineral bone disease maintained on renvela. 8. Anemia of chronic kidney disease. Iron def noted. Plan: Patient refusing hemodialysis today as a nurse was unable to cannulate his access after multiple attempts. Patient is agreeable to go for hemodialysis tomorrow at his outpatient center. IV iron x 3 doses - second dose today. Maintain Aranesp. Low-salt diet. Maintain current anti-hypertensives.
[2019-06-18 10:41] VITALS: BP 178/87; PULSE 71; RESP 18; TEMP 97.6
[2019-06-18] MEDS: SODIUM FERRIC GLUCONAT-SUCROSE 125 MG in SODIUM CHLORIDE 0.9% 100 ML IVPB SCH (12:14)
--- NOTE | 2019-06-18 15:17 | P.DS ---
Providers Date of admission: 06/16/19 12:07 Expected date of discharge: 06/18/19 Attending physician: Jacqueline English Consults: 06/16/19 12:04 Consult Physician Stat Consulting Provider: Rick Park Consult Reason/Comments: pulmonary edema, crf Do you want consulting provider notified?: Already Contacted 06/16/19 15:55 Consult Physician Routine Consulting Provider: Ady Fraire Consult Reason/Comments: hemoptysis, multifocal dependent air space disease Do you want consulting provider notified?: Yes Primary care physician: Jaylen Holguin [facility] Course: This is a 49-year-old male patient of Dr. Holguin with past medical history of end-stage renal disease secondary to postobstructive uropathy second from numerous kidney stones on hemodialysis 3 times weekly-Saturdays History of empyema status post VATS and pericardial window. seizure disorder, left thalamus stroke noncompliance for hemodialysis, currently a 1-1/2 pack per day smoker, with recurrent admissions for respiratory failure secondary to fluid overload from missing dialysis treatments requiring mechanical ventilation, chronic thrombocytopenia, tobacco use and dependence paroxysmal atrial fibrillation in February 2018. He was in the emergency room secondary to increasing shortness of breath, he apparently has missed his scheduled dialysis on Saturday, his last hemodialysis was Saturday, went to the dialysis unit today but was extremely weak, and shortness of breath. Patient was unable to get out of the car, and was subsequently sent in from emergency room for further care. Patient was having shortness of breath PND, no palpitations no chest pain, no fever no chills, no nausea no vomiting or diarrhea. Patient has his usual weekend with a barbecue, and had more salt than usual, denies any excessive amount of fluids, potassium was 7.1 on the ER the [facility], and was given D50 in the emergency room. Along with calcium hemoglobin is stable at 8.1, consult with nephrology and would be emergently dialyzed today, chest x-ray shows new multifocal disease airspace bilateral, patient has had cough for the past 2 weeks, with hemoptysis consult also made with Dr. Fraire from pulmonary medicine sputum cultures, IV Zosyn renal dosing. Patient was diaphoretic when seen in the emergency room for evaluation, family members at bedside, they were concerned on hemoptysis as well as the cough and progressive weakness 06/17: Patient denies any new complaints today. He will be resumed back on hydralazine at half his home dose. Echocardiogram has been taken and report is pending. Patient denies having any cough, recent aspiration, denies any choking. He denies any vomiting. Repeat chest x-ray reveals persistent but slightly improved mid and lower lung infiltrates. Trace effusions. Patient has been afebrile, blood pressure 155/75, heart rate 76, pulse ox 97% on 4 L nasal cannula. Pulmonary medicine is on consult. Patient is scheduled for repeat hemodialysis today. 06/18: Patient was to undergo hemodialysis today but the dialysis nurse had difficulty cannulating his access and the patient is now refusing treatment. He has been changed to a Saturday schedule per the patient. Patient denies any chest pain or shortness of breath. He denies any lower extremity edema. Patient will be discharged home today in stable condition. Discharge diagnoses: 1. End-stage renal disease with acute on chronic diastolic heart failure secondary to noncompliance, patient will be emergently dialyzed 2. Hyperkalemia, secondary to missed hemodialysis treatments 3. Multifocal dependent alveolar airspace disease findings reflecting pneumonia against aspiration pneumonia or dependent confluent pulmonary edema, hemoptysis, echocardiogram to be done, sputum cultures, Zosyn IV, consult pulmonary medicine Dr. Fraire tobacco cessation. 3. End-stage renal mineral bone disease. 4. Hypertension, hypertensive cardiovascular disease. 5. History of seizure disorder. 6. History of empyema status post VATS and pericardial window. 7. History of left thalamus stroke. 8. History of anemia of chronic disease 9. Tobacco use and dependence. 1-1/2 pack per day 10. Chronic thrombocytopenia. Currently stable. Discharge plan: Return home Impression and plan of care have been directed as dictated by the signing physician. Doretha Brumfield nurse practitioner acting as scribe for signing physician. Patient Condition at Discharge: Good Plan - Discharge Summary Discharge Rx Participant: No New Discharge Prescriptions: Continue amLODIPine [Norvasc] 5 mg PO BID tab Atorvastatin [Lipitor] 20 mg PO DAILY #30 tablet Gabapentin [Neurontin] 100 mg PO BID #60 cap levETIRAcetam [Keppra] 1,000 mg PO Q12HR #120 tab Sodium Bicarbonate Tab 650 mg PO TID Labetalol [Trandate] 200 mg PO BID cloNIDine HCL [Catapres] 0.1 mg PO TID PRN PRN Reason: SYS BP >150 Sevelamer [Renvela] 800 mg PO AC-TID hydrALAZINE HCL [Apresoline] 100 mg PO TID Furosemide [Lasix] 80 mg PO BID Discharge Medication List Atorvastatin [Lipitor] 20 mg PO DAILY #30 tablet 07/27/17 [Rx] amLODIPine [Norvasc] 5 mg PO BID tab 07/27/17 [Rx] Gabapentin [Neurontin] 100 mg PO BID #60 cap 12/25/17 [Rx] levETIRAcetam [Keppra] 1,000 mg PO Q12HR #120 tab 12/25/17 [Rx] Sodium Bicarbonate Tab 650 mg PO TID 02/11/18 [History] Labetalol [Trandate] 200 mg PO BID 09/03/18 [History] Furosemide [Lasix] 80 mg PO BID 06/16/19 [History] Sevelamer [Renvela] 800 mg PO AC-TID 06/16/19 [History] cloNIDine HCL [Catapres] 0.1 mg PO TID PRN 06/16/19 [History] hydrALAZINE HCL [Apresoline] 100 mg PO TID 06/16/19 [History] Follow up Appointment(s)/Referral(s): Ady Fraire MD [STAFF PHYSICIAN] - 3 Weeks (call office to make appt) Jaylen Holguin MD [Primary Care Provider] - 1 Week (left message with office, call for appt) Rick Park DO [STAFF PHYSICIAN] - 1 Week (Please maintain Tu/Th/Sat dialysis treatments. Call office to set up apt ) Patient Instructions/Handouts: Pulmonary Edema (DC), How to Stop Smoking (DC), Dialysis Diet (DC), Hyperkalemia (DC) Discharge Disposition: HOME SELF-CARE
== END 2019-06-18 12:49 | disposition home or self-care (01) | DRG 291 ==
LOC: EC 10:00 → 3SCARD 12:07
PROVIDERS: ADMIT Family Medicine; ATTEND Family Medicine
PROC: 5A1D70Z Performance of Urinary Filtration, Intermittent, Less than 6 Hours Per Day (ICD-10-PCS; principal; 2019-06-16)
DX: I13.2 Hypertensive heart and chronic kidney disease with heart failure and with stage 5 chronic kidney disease, or end stage renal disease (principal); N18.6 End stage renal disease; I50.33 Acute on chronic diastolic (congestive) heart failure; E87.5 Hyperkalemia; G40.909 Epilepsy, unspecified, not intractable, without status epilepticus; M54.2 Cervicalgia; M54.9 Dorsalgia, unspecified; D63.1 Anemia in chronic kidney disease; F17.210 Nicotine dependence, cigarettes, uncomplicated; I48.0 Paroxysmal atrial fibrillation; D69.6 Thrombocytopenia, unspecified; E78.5 Hyperlipidemia, unspecified; G89.29 Other chronic pain; I08.1 Rheumatic disorders of both mitral and tricuspid valves; E83.89 Other disorders of mineral metabolism; I27.20 Pulmonary hypertension, unspecified; Z99.2 Dependence on renal dialysis; Z86.73 Personal history of transient ischemic attack (TIA), and cerebral infarction without residual deficits; Z87.01 Personal history of pneumonia (recurrent); Z91.15 Patient's noncompliance with renal dialysis; Z87.442 Personal history of urinary calculi; Z79.899 Other long term (current) drug therapy; Z80.7 Family history of other malignant neoplasms of lymphoid, hematopoietic and related tissues; Z82.3 Family history of stroke; Z98.890 Other specified postprocedural states
CPT/HCPCS: 36415; 71046; 80053; 80177; 82728; 83540; 83550; 83880; 84484; 85025; 85610; 85730; 87070; 87205; 90935; 93005; 93306; 94640; 96361; 96365; 96366; 96367; 96372; 96375; 99291

== ENCOUNTER 2019-11-19 19:53 | Inpatient (IN) | payer MEDICARE, BC ==
[2019-11-19] MEDS ORDERED: IPRATROPIUM-ALBUTEROL 3 ML NEB INHALATION STA (21:40)
[2019-11-19] MEDS ORDERED: ACETAMINOPHEN TAB 500 MG TAB PO STA (21:42)
[2019-11-19 22:04] LABS: Calcium 8.8 mg/dL (8.4-10.2); Magnesium 1.7 mg/dL (1.6-2.3); Potassium 4.6 mmol/L (3.5-5.1); Total Protein 6.5 g/dL (6.3-8.2)
[2019-11-19 22:06] LABS: Partial Thromboplastin Time 34.6 sec (22.0-30.0); Prothrombin Time 10.9 sec (9.0-12.0)
[2019-11-19 22:08] LABS: HCT 30.5 % (39.0-53.0); HGB 10.7 gm/dL (13.0-17.5); MCH 36.7 pg (25.0-35.0); MCV 104.9 fL (80.0-100.0); Macrocytosis Moderate; Mean Platelet Volume 8.3; Poikilocytosis Slight; RBC 2.91 m/uL (4.30-5.90); RDW 15.8 % (11.5-15.5); WBC 5.2 k/uL (3.8-10.6)
[2019-11-19 22:25] LABS: Lymphocytes # (M) 0.52 k/uL (1.0-4.8); Monocytes # (M) 0.21 k/uL (0-1.0); Neutrophils # (M) 4.47 k/uL (1.3-7.7); Neutrophils % (M) 86 %; Nucleated Red Blood Cells 0 /100 WBC (0-0); Total Cells Counted 100
[2019-11-19 22:26] LABS: Platelet Count 91 k/uL (150-450)
--- NOTE | 2019-11-19 23:08 | XR ---
EXAMINATION TYPE: XR chest 2V DATE OF EXAM: 11/19/2019 COMPARISON: 06/18/2019 HISTORY: Difficulty breathing TECHNIQUE: FINDINGS: There is some patchy airspace infiltrate in the right upper lobe and right lower lobe. This is predominantly in the right upper lobe. The left lung is fairly clear. There is no heart failure. There is no pleural effusion. IMPRESSION: Extensive pneumonia on the right side is a change compared to old exam. No heart failure seen. There is significant clearing of the patchy pneumonia left lower lobe compared to old exam.
[2019-11-19] MEDS ORDERED: cefTRIAXone IN SWFI 1,000 MG/10 ML SYRINGE IVP STA (23:55)
[2019-11-19] MEDS ORDERED: AZITHROMYCIN 500 MG in SODIUM CHLORIDE 0.9% 250 ML IVPB STA (23:55)
--- NOTE | 2019-11-20 00:38 | ED ---
SOB HPI - General Chief Complaint: Shortness of Breath Stated Complaint: Coughing up blood Time Seen by Provider: 11/19/19 20:25 Source: patient, family Mode of arrival: ambulatory Limitations: no limitations - History of Present Illness Initial Comments: The patient is a 49-year-old male with past history of end-stage renal disease on hemodialysis Saturday, CVA, hypertension and A. fib who presents emergency Department with reported hemoptysis. He reports that for the past several days he has had bright red blood streaking within his sputum. States that he has had an increased cough with chills. He did miss his dialysis appointment on Saturday but did receive dialysis yesterday. He sees Dr. Park in office. Reports to hemoptysis prior when he had been diagnosed with pneumonia 2 years ago. Denies any nausea or vomiting. No hemoptysis. Patient does not wear any oxygen at home. Reports to exertional shortness of breath as well as orthopnea. States he received his full dialysis treatment yesterday. No associated chest pain. Denies any abdominal pain. Patient does continue to make urine. Denies dysuria or hematuria. No sick contacts with similar symptoms. No recent medication changes. There are no other alleviating, precipitating or modifying factors - Related Data Home Medications Medication Instructions Recorded Confirmed Labetalol [Trandate] 400 mg PO BID 09/03/18 11/20/19 Furosemide [Lasix] 80 mg PO BID 06/16/19 11/20/19 Sevelamer [Renvela] 800 mg PO AC-TID 06/16/19 11/20/19 cloNIDine HCL [Catapres] 0.1 mg PO TID PRN 06/16/19 11/20/19 hydrALAZINE HCL [Apresoline] 75 mg PO TID 06/16/19 11/20/19 Acetaminophen-Codeine 300-30mg 1 tab PO Q6H PRN 11/20/19 11/20/19 [Tylenol w/codeine #3] Calcium Acetate [PhosLo] 2,001 mg PO AC-TID 11/20/19 11/20/19 Calcium Carbonate [Tums] 500 mg PO AC-TID 11/20/19 11/20/19 Methocarbamol [Robaxin] 1,000 mg PO TID PRN 11/20/19 11/20/19 Previous Rx's Medication Instructions Recorded Atorvastatin [Lipitor] 20 mg PO DAILY #30 tablet 07/27/17 amLODIPine [Norvasc] 5 mg PO BID tab 07/27/17 Gabapentin [Neurontin] 100 mg PO BID #60 cap 12/25/17 levETIRAcetam [Keppra] 1,000 mg PO Q12HR #120 tab 12/25/17 Amoxic-Pot Clav 500-125 mg 1 tab PO DAILY #7 tab 11/22/19 [Augmentin 500-125 mg] Ipratropium-Albuterol Nebulize 3 ml INHALATION RT-QID #120 11/22/19 [Duoneb 0.5 mg-3 mg/3 ml Soln] ampul.neb Nicotine 21Mg/24Hr Patch [Habitrol] 1 patch TRANSDERM DAILY #30 patch 11/22/19 Allergies Allergy/AdvReac Type Severity Reaction Status Date / Time No Known Allergies Allergy Verified 11/20/19 08:16 Review of Systems ROS Statement: Those systems with pertinent positive or pertinent negative responses have been documented in the HPI. ROS Other: All systems not noted in ROS Statement are negative. 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 History of Any Multi-Drug Resistant Organisms: None Reported Past Surgical History: Bladder Surgery, Orthopedic Surgery Additional Past Surgical History / Comment(s): Hemorrhoidectomy, EGDs, colonoscopies, L sided Vats with decortication, pericardial window, hemodialysis fistula, cystoscopies/lithotripsies, bilateral renal stents, double J catheter. Past Anesthesia/Blood Transfusion Reactions: No Reported Reaction Additional Past Anesthesia/Blood Transfusion Reaction / Comment(s): Pt has received blood in past without reaction. Past Psychological History: No Psychological Hx Reported Smoking Status: Current every day smoker Past Alcohol Use History: None Reported Past Drug Use History: None Reported - Past Family History Father Family Medical History: Cancer, CVA/TIA Additional Family Medical History / Comment(s): Father had lymphoma. He had a CVA Mother Family Medical History: CVA/TIA Additional Family Medical History / Comment(s): Mother had a CVA. General Exam Limitations: no limitations General appearance: alert, in no apparent distress Head exam: Present: atraumatic, normocephalic Eye exam: Present: PERRL, EOMI ENT exam: Present: normal oropharynx, mucous membranes moist Neck exam: Absent: tenderness, meningismus Respiratory exam: Present: wheezes, rales, accessory muscle use, decreased breath sounds Cardiovascular Exam: Present: regular rate, normal rhythm GI/Abdominal exam: Present: soft. Absent: tenderness, guarding, rebound Extremities exam: Present: normal inspection, full ROM Neurological exam: Present: alert, oriented X3, CN II-XII intact Psychiatric exam: Present: normal affect, normal mood Skin exam: Present: warm, dry, pallor Course Vital Signs 11/19/19 11/19/19 11/19/19 20:28 21:23 22:10 Temperature 102.4 F H Pulse Rate 95 88 Pulse Rate [ Pulse Oximetery ] Respiratory 24 24 18 Rate Blood Pressure 189/88 Blood Pressure [Left Arm] O2 Sat by Pulse 85 L Oximetry 11/19/19 11/20/19 11/20/19 22:17 02:00 02:53 Temperature 99 F 98 F Pulse Rate 87 84 Pulse Rate [ 79 Pulse Oximetery ] Respiratory 18 18 18 Rate Blood Pressure 141/84 Blood Pressure 168/85 [Left Arm] O2 Sat by Pulse 93 L 92 L Oximetry 11/20/19 03:07 Temperature 98.2 F Pulse Rate Pulse Rate [ 75 Pulse Oximetery ] Respiratory 18 Rate Blood Pressure Blood Pressure 168/85 [Left Arm] O2 Sat by Pulse 95 Oximetry Medical Decision Making - Medical Decision Making Upon arrival the patient was placed in room 11. A thorough history and physical exam was performed. Peripheral IV is established. Initial laboratory studies demonstrate that the patient is hypoxic at 85% on room air. He is placed on supplemental oxygen. He is also hypertensive and febrile with a temp of 102.4. I do hold off on fluid administration as the patient does have a history of dialysis and does believe he is volume overloaded at this time. I did give him Tylenol for fever control. Blood cultures were obtained. Laboratory studies demonstrates a hemoglobin of 10.7. Platelets 91. Creatinine is 9.1. CK 183, troponin 0.0 80, BMP 109,000. Influenza A and B are not detected. Chest x-ray does demonstrate diffuse infiltrates of the right upper and lower lobe. I did initiate the patient on Rocephin and azithromycin. He is reevaluated and does feel improved. He will receive breathing treatments every 4 hours. A call discuss case with Dr. Macias who accepted admission I will trend the patient's hemoglobin. I will consult pulmonology. The patient remained in stable condition was transported to the floor - Lab Data Result diagrams: 11/23/19 07:37 11/23/19 07:37 Lab Results 11/19/19 11/19/19 11/19/19 Range/Units 21:15 21:15 21:15 WBC 5.2 (3.8-10.6) k/uL RBC 2.91 L (4.30-5.90) m/uL Hgb 10.7 L (13.0-17.5) gm/dL Hct 30.5 L (39.0-53.0) % MCV 104.9 H (80.0-100.0) fL MCH 36.7 H (25.0-35.0) pg MCHC 35.0 (31.0-37.0) g/dL RDW 15.8 H (11.5-15.5) % Plt Count 91 L (150-450) k/uL Neutrophils % (Manual) 86 % Lymphocytes % (Manual) 10 % Monocytes % (Manual) 4 % Neutrophils # (Manual) 4.47 (1.3-7.7) k/uL Lymphocytes # (Manual) 0.52 L (1.0-4.8) k/uL Monocytes # (Manual) 0.21 (0-1.0) k/uL Nucleated RBCs 0 (0-0) /100 WBC Manual Slide Review Performed Poikilocytosis Slight Macrocytosis Moderate PT (9.0-12.0) sec INR (<1.2) APTT (22.0-30.0) sec Sodium 136 L (137-145) mmol/L Potassium 4.6 (3.5-5.1) mmol/L Chloride 91 L (98-107) mmol/L Carbon Dioxide 34 H (22-30) mmol/L Anion Gap 11 mmol/L BUN 37 H (9-20) mg/dL Creatinine 9.13 H* (0.66-1.25) mg/dL Est GFR (CKD-EPI)AfAm 7 (>60 ml/min/1.73 sqM) Est GFR (CKD-EPI)NonAf 6 (>60 ml/min/1.73 sqM) Glucose 96 (74-99) mg/dL Plasma Lactic Acid Tenzin (0.7-2.0) mmol/L Calcium 8.8 (8.4-10.2) mg/dL Magnesium 1.7 (1.6-2.3) mg/dL Total Bilirubin 1.0 (0.2-1.3) mg/dL AST 43 (17-59) U/L ALT 19 (4-49) U/L Alkaline Phosphatase 60 (38-126) U/L Creatine Kinase 183 H (55-170) U/L Troponin I (0.000-0.034) ng/mL NT-Pro-B Natriuret Pep pg/mL Total Protein 6.5 (6.3-8.2) g/dL Albumin 4.0 (3.5-5.0) g/dL Hep Bs Antigen (Non-Reactive) Hep Bs Antibody (Non-Reactive) Hep Bs Antibody, Quant mIU/mL Mycoplasma pneumon IgG (<=0.90) INDEX Mycoplasma pneumon IgM (<=0.90) INDEX Blood Type O Positive Blood Type Recheck O Pos Bld Type Recheck Status No Antibody Screen NEGATIVE Spec Expiration Date 11/22/2019 - 231411/19/19 11/19/19 11/19/19 Range/Units 21:15 21:15 21:15 WBC (3.8-10.6) k/uL RBC (4.30-5.90) m/uL Hgb (13.0-17.5) gm/dL Hct (39.0-53.0) % MCV (80.0-100.0) fL MCH (25.0-35.0) pg MCHC (31.0-37.0) g/dL RDW (11.5-15.5) % Plt Count (150-450) k/uL Neutrophils % (Manual) % Lymphocytes % (Manual) % Monocytes % (Manual) % Neutrophils # (Manual) (1.3-7.7) k/uL Lymphocytes # (Manual) (1.0-4.8) k/uL Monocytes # (Manual) (0-1.0) k/uL Nucleated RBCs (0-0) /100 WBC Manual Slide Review Poikilocytosis Macrocytosis PT 10.9 (9.0-12.0) sec INR 1.0 (<1.2) APTT 34.6 H (22.0-30.0) sec Sodium (137-145) mmol/L Potassium (3.5-5.1) mmol/L Chloride (98-107) mmol/L Carbon Dioxide (22-30) mmol/L Anion Gap mmol/L BUN (9-20) mg/dL Creatinine (0.66-1.25) mg/dL Est GFR (CKD-EPI)AfAm (>60 ml/min/1.73 sqM) Est GFR (CKD-EPI)NonAf (>60 ml/min/1.73 sqM) Glucose (74-99) mg/dL Plasma Lactic Acid Tenzin 0.8 (0.7-2.0) mmol/L Calcium (8.4-10.2) mg/dL Magnesium (1.6-2.3) mg/dL Total Bilirubin (0.2-1.3) mg/dL AST (17-59) U/L ALT (4-49) U/L Alkaline Phosphatase (38-126) U/L Creatine Kinase (55-170) U/L Troponin I 0.088 H* (0.000-0.034) ng/mL NT-Pro-B Natriuret Pep pg/mL Total Protein (6.3-8.2) g/dL Albumin (3.5-5.0) g/dL Hep Bs Antigen (Non-Reactive) Hep Bs Antibody (Non-Reactive) Hep Bs Antibody, Quant mIU/mL Mycoplasma pneumon IgG (<=0.90) INDEX Mycoplasma pneumon IgM (<=0.90) INDEX Blood Type Blood Type Recheck Bld Type Recheck Status Antibody Screen Spec Expiration Date 11/19/19 11/19/19 11/19/19 Range/Units 21:15 21:15 21:15 WBC (3.8-10.6) k/uL RBC (4.30-5.90) m/uL Hgb (13.0-17.5) gm/dL Hct (39.0-53.0) % MCV (80.0-100.0) fL MCH (25.0-35.0) pg MCHC (31.0-37.0) g/dL RDW (11.5-15.5) % Plt Count (150-450) k/uL Neutrophils % (Manual) % Lymphocytes % (Manual) % Monocytes % (Manual) % Neutrophils # (Manual) (1.3-7.7) k/uL Lymphocytes # (Manual) (1.0-4.8) k/uL Monocytes # (Manual) (0-1.0) k/uL Nucleated RBCs (0-0) /100 WBC Manual Slide Review Poikilocytosis Macrocytosis PT (9.0-12.0) sec INR (<1.2) APTT (22.0-30.0) sec Sodium (137-145) mmol/L Potassium (3.5-5.1) mmol/L Chloride (98-107) mmol/L Carbon Dioxide (22-30) mmol/L Anion Gap mmol/L BUN (9-20) mg/dL Creatinine (0.66-1.25) mg/dL Est GFR (CKD-EPI)AfAm (>60 ml/min/1.73 sqM) Est GFR (CKD-EPI)NonAf (>60 ml/min/1.73 sqM) Glucose (74-99) mg/dL Plasma Lactic Acid Tenzin (0.7-2.0) mmol/L Calcium (8.4-10.2) mg/dL Magnesium (1.6-2.3) mg/dL Total Bilirubin (0.2-1.3) mg/dL AST (17-59) U/L ALT (4-49) U/L Alkaline Phosphatase (38-126) U/L Creatine Kinase (55-170) U/L Troponin I (0.000-0.034) ng/mL NT-Pro-B Natriuret Pep [id number] pg/mL Total Protein (6.3-8.2) g/dL Albumin (3.5-5.0) g/dL Hep Bs Antigen Non-Reactive (Non-Reactive) Hep Bs Antibody Reactive H (Non-Reactive) Hep Bs Antibody, Quant 23.0 mIU/mL Mycoplasma pneumon IgG 1.42 H (<=0.90) INDEX Mycoplasma pneumon IgM 0.13 (<=0.90) INDEX Blood Type Blood Type Recheck Bld Type Recheck Status Antibody Screen Spec Expiration Date - EKG Data EKG Comments: EKG demonstrates a sinus rhythm with a ventricular rate of 88. IA interval is noted to be 240 however is not appear to be accurate. QRS 80. QTC of 479. No acute ST segment elevation or depressions concerning for ischemic changes. There are some peaking of the T waves in leads V3-V4 Disposition Clinical Impression: Community acquired pneumonia, End stage renal disease on dialysis, Hypertension, NSTEMI (non-ST elevated myocardial infarction), Hemoptysis, Thrombocytopenia Disposition: ADMITTED IP TO THIS HOSP Condition: Good Is patient prescribed a controlled substance at d/c from ED?: No Decision to Admit Reason: Admit from EC Decision Date: 11/20/19 Decision Time: 00:44
[2019-11-20] MEDS ORDERED: ACETAMINOPHEN TAB 325 MG TAB PO PRN (00:44)
[2019-11-20] MEDS ORDERED: NALOXONE 0.4 MG/ML 1 ML VIAL IV PRN (00:44)
[2019-11-20] MEDS ORDERED: IBUPROFEN 400 MG TAB PO PRN (00:44)
[2019-11-20] MEDS ORDERED: IPRATROPIUM-ALBUTEROL 3 ML NEB INHALATION PRN (03:12)
[2019-11-20] MEDS ORDERED: IPRATROPIUM-ALBUTEROL 3 ML NEB INHALATION SCH (04:00)
[2019-11-20] MEDS: IPRATROPIUM-ALBUTEROL 3 ML NEB INHALATION SCH ×4 (07:22→19:44)
[2019-11-20] MEDS ORDERED: Acetaminophen-Codeine 300-30mg TAB PO PRN (08:32)
[2019-11-20] MEDS ORDERED: cloNIDine HCL 0.1 MG TAB PO PRN (08:32)
[2019-11-20] MEDS ORDERED: METHOCARBAMOL 500 MG TAB PO PRN (08:32)
[2019-11-20] MEDS ORDERED: SODIUM BICARBONATE TAB 650 MG TAB PO SCH (09:00)
[2019-11-20] MEDS: amLODIPine 5 MG TAB PO SCH ×2 (09:54→20:29)
[2019-11-20] MEDS: hydrALAZINE HCL 50 MG TAB PO SCH ×2 (09:54→16:01)
[2019-11-20] MEDS: GABAPENTIN 100 MG CAP PO SCH ×2 (09:54→20:29)
[2019-11-20] MEDS: ATORVASTATIN 20 MG TAB PO SCH (09:54)
[2019-11-20] MEDS: FUROSEMIDE 80 MG TAB PO SCH ×2 (09:54→17:29)
[2019-11-20] MEDS: levETIRAcetam 500 MG TAB PO SCH ×2 (09:55→20:29)
[2019-11-20] MEDS ORDERED: PIPERACILLIN-TAZOBACTAM 3.375 GM in SODIUM CHLORIDE 0.9% 100 ML IVPB SCH (10:30)
[2019-11-20] MEDS ORDERED: VANCOMYCIN 1,500 MG in SODIUM CHLORIDE 0.9% 250 ML IVPB ONE (11:00)
[2019-11-20] MEDS ORDERED: hydrALAZINE HCL 20 MG/ML 1 ML VIAL IVP PRN (11:40)
--- NOTE | 2019-11-20 11:42 | P.NPCON ---
History of Present Illness - Reason for Consult end stage renal disease - History of Present Illness Reason for consultation: End-stage renal disease History of present illness: Patient is a 49-year-old male seen in consultation for end-stage renal disease. He is maintained on hemodialysis on Saturday schedule. Patient presented to the hospital due to shortness of breath. Patient states he's been having a productive cough with streaks of blood for the last 3 days. He denies checking his temperature at home. Patient's white count is normal. Imaging suggestive of pneumonia. He is maintained on IV antibiotics. Denies chest pain. No edema. He did have a temperature as 102.4F on admission. Blood pressures on the higher side. No vomiting. He did have loose bowel movements yesterday but not resolved. He is also receiving IV steroids and breathing treatments. Feeling better since admission. Vital signs are stable. General: The patient appeared well nourished and normally developed. HEENT: Head exam is unremarkable. Neck is without jugular venous distension. LUNGS: Breath sounds decreased. HEART: Rate and Rhythm are regular. First and second heart sounds normal. No murmurs, rubs or gallops. ABDOMEN: Abdominal exam reveals normal bowel sounds. Non-tender and non- distended. No evidence of peritonitis. EXTREMITITES: No clubbing, cyanosis, or edema. Past Medical History Past Medical History: Atrial Fibrillation, Blood Disorder, CVA/TIA, Eye Disorder, GI Bleed, Hyperlipidemia, Hypertension, Renal Disease, Seizure Disorde r Additional Past Medical History / Comment(s): End-stage renal disease on hemodialysis schedule of Saturday, and Saturday with last dialysis 10/20/18, urolithiasis/nephrolithiasis, acute hypoxic respiratory failure after missed dialysis, paroxysmal Afib, chronic anemia, chronic thrombocytopenia, lower GI bleed, duodenal ulcer, seizures with last seizures 12/2017, 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 History of Any Multi-Drug Resistant Organisms: None Reported Past Surgical History: Bladder Surgery, Orthopedic Surgery Additional Past Surgical History / Comment(s): Hemorrhoidectomy, EGDs, colonoscopies, L sided Vats with decortication, pericardial window, hemodialysis fistula, cystoscopies/lithotripsies, bilateral renal stents, double J catheter. Past Anesthesia/Blood Transfusion Reactions: No Reported Reaction Additional Past Anesthesia/Blood Transfusion Reaction / Comment(s): Pt has received blood in past without reaction. Past Psychological History: No Psychological Hx Reported Smoking Status: Current every day smoker Past Alcohol Use History: None Reported Past Drug Use History: None Reported - Past Family History Father Family Medical History: Cancer, CVA/TIA Additional Family Medical History / Comment(s): Father had lymphoma. He had a CVA Mother Family Medical History: CVA/TIA Additional Family Medical History / Comment(s): Mother had a CVA. Medications and Allergies Home Medications Medication Instructions Recorded Confirmed Type Atorvastatin [Lipitor] 20 mg PO DAILY #30 tablet 07/27/17 11/20/19 Rx amLODIPine [Norvasc] 5 mg PO BID tab 07/27/17 11/20/19 Rx Gabapentin [Neurontin] 100 mg PO BID #60 cap 12/25/17 11/20/19 Rx levETIRAcetam [Keppra] 1,000 mg PO Q12HR #120 tab 12/25/17 11/20/19 Rx Sodium Bicarbonate Tab 650 mg PO TID 02/11/18 11/20/19 History Labetalol [Trandate] 400 mg PO BID 09/03/18 11/20/19 History Furosemide [Lasix] 80 mg PO BID 06/16/19 11/20/19 History Sevelamer [Renvela] 800 mg PO AC-TID 06/16/19 11/20/19 History cloNIDine HCL [Catapres] 0.1 mg PO TID 06/16/19 11/20/19 History hydrALAZINE HCL [Apresoline] 100 mg PO TID 06/16/19 11/20/19 History Acetaminophen-Codeine 300-30mg 1 tab PO Q6H PRN 11/20/19 11/20/19 History [Tylenol w/codeine #3] Calcium Acetate [Phoslo] 2,001 mg PO AC-TID 11/20/19 11/20/19 History Calcium Carbonate [Tums] 500 mg PO AC-TID 11/20/19 11/20/19 History Methocarbamol [Robaxin] 1,000 mg PO TID PRN 11/20/19 11/20/19 History Allergies Allergy/AdvReac Type Severity Reaction Status Date / Time No Known Allergies Allergy Verified 11/20/19 08:16 Physical Exam Vitals: Vital Signs Temp Pulse Pulse Resp BP BP Pulse Ox 11/20/19 11:08 80 11/20/19 10:59 78 11/20/19 07:55 99.7 F H 87 18 196/92 71 L 11/20/19 07:32 80 11/20/19 07:22 84 11/20/19 03:18 78 11/20/19 03:12 75 11/20/19 03:07 98.2 F 75 18 168/85 95 11/20/19 02:53 98 F 79 18 168/85 92 L 11/20/19 02:00 99 F 84 18 141/84 93 L 11/19/19 22:17 87 18 11/19/19 22:10 88 18 11/19/19 21:23 24 11/19/19 20:28 102.4 F H 95 24 189/88 85 L Intake and Output 11/19/19 11/20/19 11/20/19 22:59 06:59 14:59 Intake Total 100 476 Balance 100 476 Intake: Oral 100 476 Other: Weight 70.307 kg 66.8 kg Results - Lab Results Most recent lab results Calcium 8.8 mg/dL (8.4-10.2) 11/19/19 21:15 Magnesium 1.7 mg/dL (1.6-2.3) 11/19/19 21:15 11/19/19 21:15 11/19/19 21:15 Assessment and Plan Plan: Assessment: 1. End-stage renal disease maintained on hemodialysis on Saturday schedule. 2. Dyspnea/hemoptysis secondary to pneumonia maintained on antibiotics. 3. Hypertension with chronic kidney disease. 4. 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 5. Anemia of chronic kidney disease. Hemoglobin at goal. Plan: Hemodialysis today. Maintain antibiotics. Discontinue sodium bicarbonate. Home antihypertensives resumed. Thank you for the consultation. I will continue to follow the patient with you during his hospital stay.
[2019-11-20 11:59] LABS: Glucose,Whole Blood 116 mg/dL (75-99)
[2019-11-20] MEDS ORDERED: methylPREDNISolone SOD SUCCI 125 MG/2 ML VIAL IV SCH (12:00)
[2019-11-20] MEDS: INSULIN ASPART (NovoLOG) 100 UNIT/ML VIAL SQ SCH ×3 (12:01→20:33)
[2019-11-20] MEDS: LABETALOL 200 MG TAB PO SCH ×3 (12:02→20:29)
[2019-11-20] MEDS: CALCIUM ACETATE 667 MG TAB PO SCH ×2 (12:08→17:29)
[2019-11-20] MEDS: SEVELAMER 800 MG TAB PO SCH ×2 (12:08→17:30)
[2019-11-20] MEDS: CALCIUM CARBONATE 500 MG CHEWABLE PO SCH ×2 (12:08→17:30)
--- NOTE | 2019-11-20 13:36 | P.HPIM ---
History of Present Illness H&P Date: 11/20/19 Chief Complaint: Bleeding from lower legs, confusion This is a 49-year-old male patient of Dr. Holguin with past medical history of end-stage renal disease secondary to kidney stones on hemodialysis for 10 years 3 times weekly- Mo, We, Fr, hypertension, hypertensive ca rdiovascular disease, seizure disorder, left thalamus stroke, previous admission for acute hypoxic respiratory failure secondary to fluid overload from missing dialysis treatments requiring mechanical ventilation, history of empyema status post VATS and pericardial window, history of chronic thrombocytopenia, tobacco use and dependence, paroxysmal atrial fibrillation in February 2018. Patient states that he has had a cough for 3-4 days along with fever, feeling tired and fatigued. He states he has been bringing up phlegm along with some blood that has been continuous each time he coughs up to 1 tablespoon of blood. He denies any outpatient treatment for pneumonia recently. Patient came into [facility] emergency center for evaluation found to be febrile at 102.4, heart rate 95, respiratory rate 24, blood pressure 189/88 and pulse ox 85% on room air. Fiona BC was 5.2, hemoglobin 10.7, platelet count 91. Sodium 136, potassium 4.6, chloride 91, CO2 34, BUN 37, creatinine 9.13, blood sugar 96. Lactic acid 0.8, proBNP 109,000, troponin 0.088, 0.103, 0.097. Chest x-ray reveals extensive pneumonia on the right side. No heart failure seen. Significant clearing of patchy pneumonia left lower lobe compared to old exam. Patient was given dose of ceftriaxone and azithromycin, admitted to the cardiac stepdown unit, consults in place with pulmonary medicine and nephrology. Review of Systems Constitutional: Reports chills, Reports fatigue, Reports fever, Reports lethargy, Reports malaise, Reports poor appetite, Reports weakness, Denies weight loss Eyes: denies blurred vision, denies pain Ears, nose, mouth and throat: Denies dysphagia, Denies headache, Denies nasal congestion, Denies nasal discharge, Denies sore throat, Denies vertigo Cardiovascular: Reports dyspnea on exertion, Reports shortness of breath, Denies chest pain, Denies leg edema, Denies lightheadedness, Denies syncope Respiratory: Reports cough with sputum, Reports dyspnea, Reports excessive sputum, Reports hemoptysis, Reports respiratory infections, Reports wheezing, Denies cough, Denies home oxygen Gastrointestinal: Denies abdominal pain, Denies diarrhea, Denies nausea, Denies vomiting Genitourinary: Denies dysuria, Denies urinary retention Musculoskeletal: Denies frequent falls, Denies gait dysfunction, Denies myalgias Integumentary: Denies pruritus, Denies rash, Denies wounds Neurological: Denies change in mentation, Denies change in speech, Denies numbness, Denies weakness Psychiatric: Denies anxiety, Denies depression Endocrine: Denies fatigue, Denies weight change Past Medical History Past Medical History: Atrial Fibrillation, Blood Disorder, CVA/TIA, Eye Disorder, GI Bleed, Hyperlipidemia, Hypertension, Renal Disease, Seizure Disorder Additional Past Medical History / Comment(s): End-stage renal disease on hemodialysis schedule of Saturday, and Saturday with last dialysis 10/20/18, urolithiasis/nephrolithiasis, acute hypoxic respiratory failure after missed dialysis, paroxysmal Afib, chronic anemia, chronic thrombocytopenia, lower GI bleed, duodenal ulcer, seizures with last seizures 12/2017, 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 History of Any Multi-Drug Resistant Organisms: None Reported Past Surgical History: Bladder Surgery, Orthopedic Surgery Additional Past Surgical History / Comment(s): Hemorrhoidectomy, EGDs, colonoscopies, L sided Vats with decortication, pericardial window, hemodialysis fistula, cystoscopies/lithotripsies, bilateral renal stents, double J catheter. Past Anesthesia/Blood Transfusion Reactions: No Reported Reaction Additional Past Anesthesia/Blood Transfusion Reaction / Comment(s): Pt has received blood in past without reaction. Past Psychological History: No Psychological Hx Reported Smoking Status: Current every day smoker Past Alcohol Use History: None Reported Additional Past Alcohol Use History / Comment(s): Patient is a smoker one pack per day since he was 17 years of age. He denies any marijuana, illicit drug use, alcohol use, vaping. Past Drug Use History: None Reported - Past Family History Father Family Medical History: Cancer, CVA/TIA Additional Family Medical History / Comment(s): Father had lymphoma. He had a CVA Mother Family Medical History: CVA/TIA Additional Family Medical History / Comment(s): Mother had a CVA. Medications and Allergies Home Medications Medication Instructions Recorded Confirmed Type Atorvastatin [Lipitor] 20 mg PO DAILY #30 tablet 07/27/17 11/20/19 Rx amLODIPine [Norvasc] 5 mg PO BID tab 07/27/17 11/20/19 Rx Gabapentin [Neurontin] 100 mg PO BID #60 cap 12/25/17 11/20/19 Rx levETIRAcetam [Keppra] 1,000 mg PO Q12HR #120 tab 12/25/17 11/20/19 Rx Sodium Bicarbonate Tab 650 mg PO TID 02/11/18 11/20/19 History Labetalol [Trandate] 400 mg PO BID 09/03/18 11/20/19 History Furosemide [Lasix] 80 mg PO BID 06/16/19 11/20/19 History Sevelamer [Renvela] 800 mg PO AC-TID 06/16/19 11/20/19 History cloNIDine HCL [Catapres] 0.1 mg PO TID 06/16/19 11/20/19 History hydrALAZINE HCL [Apresoline] 100 mg PO TID 06/16/19 11/20/19 History Acetaminophen-Codeine 300-30mg 1 tab PO Q6H PRN 11/20/19 11/20/19 History [Tylenol w/codeine #3] Calcium Acetate [Phoslo] 2,001 mg PO AC-TID 11/20/19 11/20/19 History Calcium Carbonate [Tums] 500 mg PO AC-TID 11/20/19 11/20/19 History Methocarbamol [Robaxin] 1,000 mg PO TID PRN 11/20/19 11/20/19 History Allergies Allergy/AdvReac Type Severity Reaction Status Date / Time No Known Allergies Allergy Verified 11/20/19 08:16 Physical Exam Vitals: Vital Signs Temp Pulse Pulse Resp BP BP Pulse Ox 11/20/19 07:55 99.7 F H 87 18 196/92 71 L 11/20/19 07:32 80 11/20/19 07:22 84 11/20/19 03:18 78 11/20/19 03:12 75 11/20/19 03:07 98.2 F 75 18 168/85 95 11/20/19 02:53 98 F 79 18 168/85 92 L 11/20/19 02:00 99 F 84 18 141/84 93 L 11/19/19 22:17 87 18 11/19/19 22:10 88 18 11/19/19 21:23 24 11/19/19 20:28 102.4 F H 95 24 189/88 85 L Intake and Output 11/19/19 11/20/19 11/20/19 22:59 06:59 14:59 Intake Total 100 Balance 100 Intake: Oral 100 Other: Weight 70.307 kg 66.8 kg Gen: This is a 49-year-old male patient resting in bed and appears to be fatigued. No acute respiratory distress is noted. HEENT: Head is atraumatic, normocephalic. Pupils equal, round. Sclerae is anicteric. NECK: Supple. No JVD. No lymphadenopathy. No thyromegaly. LUNGS: Expiratory wheeze bilaterally. No accessory muscle usage. No intercostal retractions. Occasional cough noted. HEART: Regular rate and rhythm. Systolic murmur. ABDOMEN: Soft. Bowel sounds are present. No masses. No tenderness. EXTREMITIES: No pedal edema. No calf tenderness. No lower extremity wounds. NEUROLOGICAL: Patient is awake, alert and oriented x3. Cranial nerves 2 through 12 are grossly intact. Results CBC & Chem 7: 11/19/19 21:15 11/19/19 21:15 Labs: Abnormal Lab Results - Last 24 Hours (Table) 11/19/19 11/19/19 11/19/19 Range/Units 21:15 21:15 21:15 RBC 2.91 L (4.30-5.90) m/uL Hgb 10.7 L (13.0-17.5) gm/dL Hct 30.5 L (39.0-53.0) % MCV 104.9 H (80.0-100.0) fL MCH 36.7 H (25.0-35.0) pg RDW 15.8 H (11.5-15.5) % Plt Count 91 L (150-450) k/uL Lymphocytes # (Manual) 0.52 L (1.0-4.8) k/uL APTT 34.6 H (22.0-30.0) sec Sodium 136 L (137-145) mmol/L Chloride 91 L (98-107) mmol/L Carbon Dioxide 34 H (22-30) mmol/L BUN 37 H (9-20) mg/dL Creatinine 9.13 H* (0.66-1.25) mg/dL Creatine Kinase 183 H (55-170) U/L Troponin I (0.000-0.034) ng/mL 11/19/19 11/20/19 Range/Units 21:15 02:58 RBC (4.30-5.90) m/uL Hgb (13.0-17.5) gm/dL Hct (39.0-53.0) % MCV (80.0-100.0) fL MCH (25.0-35.0) pg RDW (11.5-15.5) % Plt Count (150-450) k/uL Lymphocytes # (Manual) (1.0-4.8) k/uL APTT (22.0-30.0) sec Sodium (137-145) mmol/L Chloride (98-107) mmol/L Carbon Dioxide (22-30) mmol/L BUN (9-20) mg/dL Creatinine (0.66-1.25) mg/dL Creatine Kinase (55-170) U/L Troponin I 0.088 H* 0.103 H* (0.000-0.034) ng/mL Thrombosis Risk Factor Assmnt - DVT/VTE Prophylaxis DVT/VTE Prophylaxis: Mechanical Prophylaxis ordered - Choose All That Apply Any of the Below Risk Factors Present?: Yes Each Factor Represents 1 point: Age 41-60 years Thrombosis Risk Factor Assessment Total Risk Factor Score: 1 Thrombosis Risk Factor Assessment Level: Low Risk Assessment and Plan Plan: 1. Acute hypoxic respiratory failure secondary to COPD exacerbation and right- sided pneumonia, possible gram-negative pneumonia. Patient will be started on Zosyn and vancomycin, pharmacy to dose. Continue DuoNeb treatments 4 times daily and every 2 hours as needed, Solu-Medrol 60 mg IV every 6 hours, pulmonary consult, obtain sputum specimen, Legionella, Mycoplasma testing. 2. History of anemia of chronic disease with baseline hemoglobin of 8. 3. End-stage renal disease on hemodialysis Saturday and Saturday. Consult with Dr. Park. Continue PhosLo. 4. Hypertension, hypertensive cardiovascular disease. Continue Norvasc 5 mg twice daily, labetalol 400 mg twice daily, hydralazine 100 mg 3 times daily, IV hydralazine and clonidine as needed. 5. History of seizure disorder. Continue Keppra 1000 mg twice daily. 6. History of empyema status post VATS and pericardial window. 7. History of left thalamus stroke. Continue Lipitor 20 mg daily for secondary prevention. 8. Tobacco use and dependence. Nicotine patch. 9. Chronic thrombocytopenia. Currently stable. 10. DVT prophylaxis. KP natashae and SCDs. 11. GI prophylaxis. Protonix 11. CODE STATUS: Full code. Patient will be admitted to the hospital for a minimum of 2 night stay. Discharge plan: Return home Impression and plan of care have been directed as dictated by the signing physician. Doretha Brumfield nurse practitioner acting as scribe for signing physician.
[2019-11-20 14:12] LABS: Anisocytosis Slight; HCT 30.3 % (39.0-53.0); HGB 10.1 gm/dL (13.0-17.5); MCH 35.9 pg (25.0-35.0); MCHC 33.3 g/dL (31.0-37.0); Macrocytosis Marked; Platelet Count 84 k/uL (150-450); Poikilocytosis Slight; RBC 2.81 m/uL (4.30-5.90); RDW 16.1 % (11.5-15.5)
--- NOTE | 2019-11-20 15:11 | CONS ---
CONSULTATION PULMONARY/CRITICAL CARE CONSULTATION: \DATE OF SERVICE: 11/20/2019 REASON FOR CONSULTATION: Shortness of breath and hemoptysis. This is a 49-year-old male, well known to our service. He has a history of end-stage renal disease, he is on hemodialysis Saturday, Saturday, Saturday in his usual director specialty is Dr. Park. The patient has a history of CVA, hypertension, atrial fibrillation, and COPD from chronic tobacco use. He reports to the emergency room with complaints of increasing shortness of breath, cough and coughing up blood. The blood was bright red. It was mixed with yellow mucus. He has had it the day of admission in a day prior, but has not had any additional coughing of blood today. The patient apparently missed his dialysis appointment on Saturday but did receive his dialysis treatment on Saturday. He is receiving dialysis as we speak. He denies any fever or chills. Denies any nausea, vomiting or diarrhea. No genitourinary complaints. He denies any chest pain or pressure. He is sitting at the bedside. Looks very comfortable. Eating his lunch. . HOME MEDICATIONS: Include sodium bicarbonate tablets, labetalol, Lasix, Renvela, Catapres, Apresoline, Lipitor, Norvasc, Neurontin, and Keppra. ALLERGIES: Denied. MEDICAL HISTORY: Chronic atrial fibrillation, CVA, GI bleed, hyperlipidemia, hypertension, chronic kidney disease, 3 time a week hemodialysis, seizure disorder, nephrolithiasis, respiratory failure following missed dialysis treatments, thrombocytopenia, left lung empyema, spinal stenosis, degenerative disc disease, and some other minor medical problems. SURGICAL HISTORY: Includes bladder surgery, hemorrhoidectomy, EGD, colonoscopy, left-sided VATS procedure with cortication, pericardial window, hemodialysis fistula, cystoscopy with lithotripsy, and bilateral renal stents. SOCIAL HISTORY: Is positive for ongoing and significant tobacco abuse. He denies any alcohol use or illicit drug use. FAMILY HISTORY: Positive for father with CVA and cancer. Father had lymphoma. Mother has a history of CVA. REVIEW OF SYSTEMS: CONSTITUTIONAL: Negative. NEUROLOGIC: Negative. HEENT: Negative. CARDIOVASCULAR: Negative. PULMONARY: Shortness of breath, chest congestion, cough, edema. GI: Negative. : Negative. RHEUMATOLOGIC:IMMUNOLOGIC: Negative. ENDOCRINOLOGIC: Negative. DERMATOLOGIC: Negative. Current vital signs are reviewed. His T-max was 102.4. Current temperature is 97.9, heart rate 79, respiratory rate 16, blood pressure 103/82 mean 109, 2 L saturation 95%. Appears in no acute distress. HEENT: Examination is grossly unremarkable. Mucous membranes are moist. No oral lesions. NECK: Supple, full range of motion. No adenopathy or thyromegaly. Neck veins are flat. CARDIOVASCULAR: Examination reveals regular rhythm and rate. S1, S2 normal. Heart sounds are distant. No murmur. LUNGS: Reveal coarse rhonchi bilaterally, more right than left-sided. No wheezes or crackles. ABDOMEN: Soft, bowel sounds are heard. EXTREMITIES: Intact. No cyanosis, clubbing, or edema. SKIN: Without rash. NEUROLOGIC: Examination is brief but nonfocal. A chest x-ray shows airspace disease particularly on the right side. It is very significant. The left lung is relatively clear. LAB DATA: Reviewed. White count 5.2, hemoglobin 10.7, hematocrit 30.5, platelet count is 91,000 PT/INR normal. PTT 34.6. Sodium 136, potassium 4.6, chloride 91 CO2 34 anion gap 11, BUN and creatinine were 37 and 9.3. The patient's troponins were 0.088, 0.103 and 0.097. N terminal proBNP was of 1 thing 109,000. The rest of the labs look okay. Influenza studies are negative. Assessment. 1. Right-sided pneumonia, associated with hemoptysis, a bit better than when he 1st was admitted. 2. Probable chronic obstructive pulmonary disease from chronic and ongoing tobacco use. 3. Nicotine addiction. 4. End-stage renal disease, chronic kidney disease, currently on Saturday, Saturday, Saturday hemodialysis. 5. History of chronic atrial fibrillation. 6. History of thrombocytopenia. 7. History of cerebrovascular accident. 8. History of gastrointestinal bleed. 9. History of hyperlipidemia. 10.Benign essential hypertension. 11.History of seizure disorder. 12.Prior history of lung left lung empyema and left-sided VATS procedure with decortication. 13.Multiple other medical problems and comorbidities. PLAN: The patient's medications are reviewed. We will make sure that he is on appropriate antibiotics and breathing treatments. He will benefit from a nicotine patch. Additional recommendations and suggestions are forthcoming. He is not particularly bronchospastic. Will continue to follow. He is encouraged never to smoke again. MMODL / IJN: [id number] / KULDEEP
[2019-11-20] MEDS: PIPERACILLIN-TAZOBACTAM 3.375 GM in SODIUM CHLORIDE 0.9% 100 ML IVPB SCH (16:00)
[2019-11-20] MEDS: NICOTINE 21MG/24HR PATCH TRANSDERM SCH (16:01)
[2019-11-20 16:51] LABS: Glucose,Whole Blood 121 mg/dL (75-99)
[2019-11-20 17:31] LABS: Hepatitis B Surface Antibody Reactive (Non-Reactive); Hepatitis B Surface Antigen Non-Reactive (Non-Reactive)
[2019-11-20] MEDS: VANCOMYCIN IV PER PHARMACY 1 EACH MISC MISCELLANE SCH (19:42)
[2019-11-20] MEDS: hydrALAZINE HCL 25 MG TAB PO SCH (20:29)
[2019-11-21 00:49] LABS: HCT 31.7 % (39.0-53.0); HGB 10.4 gm/dL (13.0-17.5); MCH 35.4 pg (25.0-35.0); MCV 107.3 fL (80.0-100.0); Mean Platelet Volume 8.8; Poikilocytosis Slight; RBC 2.95 m/uL (4.30-5.90); RDW 15.9 % (11.5-15.5); WBC 2.6 k/uL (3.8-10.6)
[2019-11-21 00:51] LABS: Platelet Count 90 k/uL (150-450)
[2019-11-21 00:52] LABS: Macrocytosis Marked
[2019-11-21] MEDS: PIPERACILLIN-TAZOBACTAM 3.375 GM in SODIUM CHLORIDE 0.9% 100 ML IVPB SCH ×2 (03:45→16:18)
[2019-11-21] MEDS: INSULIN ASPART (NovoLOG) 100 UNIT/ML VIAL SQ SCH ×4 (03:51→21:29)
[2019-11-21] MEDS: CALCIUM CARBONATE 500 MG CHEWABLE PO SCH ×3 (06:41→16:19)
[2019-11-21] MEDS: SEVELAMER 800 MG TAB PO SCH ×3 (06:41→16:20)
[2019-11-21] MEDS: CALCIUM ACETATE 667 MG TAB PO SCH ×3 (06:41→16:19)
[2019-11-21 07:16] LABS: Basophils % (A) 1 %; Eosinophils % (A) 0 %; HCT 30.7 % (39.0-53.0); HGB 10.1 gm/dL (13.0-17.5); Lymphocytes # (A) 0.3 k/uL (1.0-4.8); Lymphocytes % (A) 11 %; MCH 34.7 pg (25.0-35.0); MCHC 32.8 g/dL (31.0-37.0); Macrocytosis Moderate; Mean Platelet Volume 8.2; Monocytes # (A) 0.2 k/uL (0-1.0); Monocytes % (A) 6 %; Neutrophils # (A) 2.3 k/uL (1.3-7.7); Neutrophils % (A) 79 %; Poikilocytosis Slight; RBC 2.89 m/uL (4.30-5.90); RDW 15.8 % (11.5-15.5); WBC 2.9 k/uL (3.8-10.6)
[2019-11-21 07:21] LABS: Platelet Count 89 k/uL (150-450)
[2019-11-21 07:40] LABS: Potassium 4.5 mmol/L (3.5-5.1)
[2019-11-21] MEDS: hydrALAZINE HCL 25 MG TAB PO SCH ×3 (08:25→21:26)
[2019-11-21] MEDS: IPRATROPIUM-ALBUTEROL 3 ML NEB INHALATION SCH ×4 (08:25→20:27)
[2019-11-21] MEDS: LABETALOL 200 MG TAB PO SCH ×2 (08:25→21:27)
[2019-11-21] MEDS: FUROSEMIDE 80 MG TAB PO SCH ×2 (08:26→16:19)
[2019-11-21] MEDS: ATORVASTATIN 20 MG TAB PO SCH (08:26)
[2019-11-21] MEDS: amLODIPine 5 MG TAB PO SCH ×2 (08:26→21:27)
[2019-11-21] MEDS: NICOTINE 21MG/24HR PATCH TRANSDERM SCH (08:26)
[2019-11-21] MEDS: GABAPENTIN 100 MG CAP PO SCH ×2 (08:26→21:27)
[2019-11-21] MEDS: levETIRAcetam 500 MG TAB PO SCH ×2 (08:26→21:27)
--- NOTE | 2019-11-21 09:15 | P.CRDCN ---
History of Present Illness Consult date: 11/21/19 Requesting physician: Airel Britt Reason for Consult (text): Abnormal troponin Chief complaint: Hemoptysis History of present illness: This is a 49-year-old male patient with history of end-stage renal disease on hemodialysis 3 times a week, paroxysmal atrial fibrillation, history of prior CVA, hypertension, COPD, chronic tobacco use. He presented to the hospital on this occasion with symptoms of worsening shortness of breath at home, he also states that he had been coughing up a significant amount of blood. According to the patient, he has been making his regular dialysis appointments however he did miss his dialysis on Saturday but did receive dialysis treatment on Saturday, and again her dialysis yesterday. A cardiology consultation was requested because of abnormality in troponins. Chest x-ray on presentation here showed extensive pneumonia on the right side, no evidence of any congestive heart failure. His EKG on presentation here showed a normal sinus rhythm with no acute changes noted. Temperature on arrival here 102.4, blood pressure on arrival 188/88, heart rate in the 90s, 85% on room air. I pressure this morning 170/80 with a heart rate in the 60s, 96% on 2 L of oxygen. White blood cell count on admission 5.2, hemoglobin 10.7, platelet count 91, sodium 136, potassium 4.6, BUN 37, creatinine 9.1. Magnesium 1.7. BNP level 109,000. Troponins 0.08, 0.10, 0.09. This morning's labs, sodium 137, potassium 4.5, BUN 34, creatinine 7.9. White blood cell count this morning 2.9 with hemoglobin of 10.1 and platelet count 89. At the time of my examination this morning, the patient states that his breathing is significantly improved from arrival here, he continues to have mild blood in his sputum. Patient denies having any chest discomfort this morning or at anytime prior to his admission here. He did have an echocardiogram with Doppler study performed in May of this past year which revealed an ejection fraction of 50-55%, left atrium was severely dilated mild to moderate mitral regurg and moderate tricuspid regurg with severe pulmonary hypertension noted at that time. 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 History of Any Multi-Drug Resistant Organisms: None Reported Past Surgical History: Bladder Surgery, Orthopedic Surgery Additional Past Surgical History / Comment(s): Hemorrhoidectomy, EGDs, colonoscopies, L sided Vats with decortication, pericardial window, hemodialysis fistula, cystoscopies/lithotripsies, bilateral renal stents, double J catheter. Past Anesthesia/Blood Transfusion Reactions: No Reported Reaction Additional Past Anesthesia/Blood Transfusion Reaction / Comment(s): Pt has received blood in past without reaction. Past Psychological History: No Psychological Hx Reported Smoking Status: Current every day smoker Past Alcohol Use History: None Reported Additional Past Alcohol Use History / Comment(s): Patient is a smoker one pack p er day since he was 17 years of age. He denies any marijuana, illicit drug use, alcohol use, vaping. Past Drug Use History: None Reported - Past Family History Father Family Medical History: Cancer, CVA/TIA Additional Family Medical History / Comment(s): Father had lymphoma. He had a CVA Mother Family Medical History: CVA/TIA Additional Family Medical History / Comment(s): Mother had a CVA. Medications and Allergies Home Medications Medication Instructions Recorded Confirmed Type Atorvastatin [Lipitor] 20 mg PO DAILY #30 tablet 07/27/17 11/20/19 Rx amLODIPine [Norvasc] 5 mg PO BID tab 07/27/17 11/20/19 Rx Gabapentin [Neurontin] 100 mg PO BID #60 cap 12/25/17 11/20/19 Rx levETIRAcetam [Keppra] 1,000 mg PO Q12HR #120 tab 12/25/17 11/20/19 Rx Labetalol [Trandate] 400 mg PO BID 09/03/18 11/20/19 History Furosemide [Lasix] 80 mg PO BID 06/16/19 11/20/19 History Sevelamer [Renvela] 800 mg PO AC-TID 06/16/19 11/20/19 History cloNIDine HCL [Catapres] 0.1 mg PO TID PRN 06/16/19 11/20/19 History hydrALAZINE HCL [Apresoline] 75 mg PO TID 06/16/19 11/20/19 History Acetaminophen-Codeine 300-30mg 1 tab PO Q6H PRN 11/20/19 11/20/19 History [Tylenol w/codeine #3] Calcium Acetate [Phoslo] 2,001 mg PO AC-TID 11/20/19 11/20/19 History Calcium Carbonate [Tums] 500 mg PO AC-TID 11/20/19 11/20/19 History Methocarbamol [Robaxin] 1,000 mg PO TID PRN 11/20/19 11/20/19 History Allergies Allergy/AdvReac Type Severity Reaction Status Date / Time No Known Allergies Allergy Verified 11/20/19 08:16 Physical Exam Vitals: Vital Signs Temp Pulse Pulse Resp BP Pulse Ox 11/21/19 08:38 76 11/21/19 08:27 68 11/21/19 03:49 66 18 170/89 96 11/21/19 00:00 98.9 F 71 18 160/80 94 L 11/20/19 20:29 99 F 72 18 169/81 94 L 11/20/19 19:55 74 11/20/19 19:44 78 16 11/20/19 16:33 98.9 F 78 20 157/83 11/20/19 16:18 78 11/20/19 16:08 71 16 97 11/20/19 15:56 98.7 F 77 16 162/89 97 11/20/19 12:16 97.9 F 11/20/19 11:57 79 16 163/82 95 11/20/19 11:08 80 11/20/19 10:59 78 Intake and Output 11/20/19 11/21/19 11/21/19 22:59 06:59 14:59 Intake Total 100 100 Output Total 1500 Balance -1400 100 Intake: Intake, IV Titration 100 100 Amount Piperacillin-Tazobactam 3 100 100 .375 gm In Sodium Chloride 0.9% 100 ml @ 25 mls/hr IVPB Q12H [facility] Rx# :[id number] Output: Hemodialysis 1500 PHYSICAL EXAMINATION: GENERAL: 49-year-old gentleman in no acute distress at the time of my examination HEENT: Head is atraumatic, normocephalic. Pupils equal, round. Sclera anicteric. Conjunctiva are clear. Mucous membranes of the mouth are moist. Ne ck is supple. There is no elevated jugular venous pressure. No carotid bruit is heard. HEART EXAMINATION: Heart S1, S2 normal. No murmur or gallop heard. CHEST EXAMINATION: Lungs reveal scattered coarse rhonchi bilaterally with some expiratory wheezing heard. ABDOMEN: Soft, nontender. Bowel sounds are heard. No organomegaly noted. EXTREMITIES: 2+ peripheral pulses with no evidence of peripheral edema and no calf tenderness noted. NEUROLOGIC patient is awake, alert and oriented 3 . Results 11/21/19 06:34 11/21/19 06:34 Cardiac Enzymes 11/20/19 Range/Units 09:12 Troponin I 0.097 H* (0.000-0.034) ng/mL CBC 11/20/19 11/21/19 11/21/19 Range/Units 09:12 00:25 06:34 WBC 4.0 2.6 L 2.9 L (3.8-10.6) k/uL RBC 2.81 L 2.95 L 2.89 L (4.30-5.90) m/uL Hgb 10.1 L 10.4 L 10.1 L (13.0-17.5) gm/dL Hct 30.3 L 31.7 L 30.7 L (39.0-53.0) % Plt Count 84 L 90 L 89 L (150-450) k/uL Comprehensive Metabolic Panel 11/21/19 Range/Units 06:34 Sodium 137 (137-145) mmol/L Potassium 4.5 (3.5-5.1) mmol/L Chloride 98 (98-107) mmol/L Carbon Dioxide 27 (22-30) mmol/L BUN 34 H (9-20) mg/dL Creatinine 7.96 H* (0.66-1.25) mg/dL Glucose 92 (74-99) mg/dL Calcium 9.0 (8.4-10.2) mg/dL Current Medications Generic Name Dose Route Start Last Admin Trade Name Freq PRN Reason Stop Dose Admin Acetaminophen 650 mg 11/20/19 00:44 Tylenol Tab PO Q6HR PRN Mild Pain or Fever > 100.5 Acetaminophen/Codeine Phosphate 1 each 11/20/19 08:32 Tylenol #3 PO Q6H PRN Pain Albuterol/Ipratropium 3 ml 11/20/19 08:00 11/21/19 08:25 Duoneb 0.5 Mg-3 Mg/3 Ml Soln INHALATION 3 ml RT-QID KRISTY Administration Albuterol/Ipratropium 3 ml 11/20/19 03:12 Duoneb 0.5 Mg-3 Mg/3 Ml Soln INHALATION RT-Q2H PRN Shortness Of Breath Or Wheezing Amlodipine Besylate 5 mg 11/20/19 09:00 11/21/19 08:26 Norvasc PO 5 mg BID KRISTY Administration Atorvastatin Calcium 20 mg 11/20/19 09:00 11/21/19 08:26 Lipitor PO 20 mg DAILY KRISTY Administration Calcium Acetate 2,001 mg 11/20/19 12:30 11/21/19 06:41 Phoslo PO 2,001 mg AC-TID KRISTY Administration Calcium Carbonate/Glycine 500 mg 11/20/19 12:30 11/21/19 06:41 Tums PO 500 mg AC-TID KRISTY Administration Clonidine 0.1 mg 11/20/19 08:32 Catapres PO TID PRN SYS BP >150 Furosemide 80 mg 11/20/19 09:00 11/21/19 08:26 Lasix PO 80 mg 0900,1700 KRISTY Administration Gabapentin 100 mg 11/20/19 09:00 11/21/19 08:26 Neurontin PO 100 mg BID KRISTY Administration Hydralazine HCl 10 mg 11/20/19 11:40 Apresoline IVP Q4HR PRN Blood Pressure - High Hydralazine HCl 75 mg 11/20/19 22:00 11/21/19 08:25 Apresoline PO 75 mg TID KRISTY Administration Vancomycin HCl 1,250 mg/ 250 mls @ 125 mls/hr 11/21/19 10:00 Sodium Chloride IVPB 11/21/19 11:59 ONCE ONE Piperacillin Sod/Tazobactam 100 mls @ 25 mls/hr 11/20/19 15:00 11/21/19 03:45 Sod 3.375 gm/ Sodium Chloride IVPB 25 mls/hr Q12H KRISTY Administration Ibuprofen 400 mg 11/20/19 00:44 Motrin PO Q6HR PRN Mild Pain or Fever > 100.5 Insulin Aspart 0 unit 11/20/19 12:30 11/21/19 03:51 Novolog SQ Not Given ACHS [facility] Protocol Labetalol HCl 400 mg 11/20/19 09:00 11/21/19 08:25 Trandate PO 400 mg BID KRISTY Administration Levetiracetam 1,000 mg 11/20/19 09:00 11/21/19 08:26 Keppra PO 1,000 mg Q12HR KRISTY Administration Methocarbamol 1,000 mg 11/20/19 08:32 Robaxin PO TID PRN Pain Miscellaneous Information 1 each 11/20/19 10:30 11/20/19 19:42 Pharmacy To Dose Iv Vancomycin MISCELLANE Not Given DIRECTED KRISTY Protocol Naloxone HCl 0.2 mg 11/20/19 00:44 Narcan IV Q2M PRN Opioid Reversal Nicotine 1 patch 11/20/19 13:45 11/21/19 08:26 Habitrol 21mg/24hr Patch TRANSDERM Not Given DAILY [facility] Sevelamer Carbonate 800 mg 11/20/19 12:30 11/21/19 06:41 Renvela PO 800 mg AC-TID KRISTY Administration Intake and Output 11/20/19 11/21/19 11/21/19 22:59 06:59 14:59 Intake Total 100 100 Output Total 1500 Balance -1400 100 Intake: Intake, IV Titration 100 100 Amount Piperacillin-Tazobactam 3 100 100 .375 gm In Sodium Chloride 0.9% 100 ml @ 25 mls/hr IVPB Q12H [facility] Rx# :[id number] Output: Hemodialysis 1500 11/21/19 06:34 11/21/19 06:34 EKG Interpretations (text) EKG shows normal sinus rhythm with no acute changes. Assessment and Plan Plan: Assessment and plan #1 extensive pneumonia with associated hemoptysis #2 COPD exacerbation #3 nicotine addiction #4 end-stage renal disease on hemodialysis #5 paroxysmal atrial fibrillation, patient not on anticoagulation because of a recent GI bleed #6 prior CVA #7 hypertension #8 hyperlipidemia #9 history of seizure disorder #10 prior history of left lung empyema and left-sided VATS procedure with decortication #11 troponin abnormality, not suggestive of acute coronary syndrome, likely secondary to abnormal renal function Plan Will obtain an echocardiogram with Doppler study. Continue Norvasc and hydralazine. Patient currently is on when necessary clonidine, we will start scheduled dose of clonidine to optimize blood pressure control. Further recommendations to follow. DNP note has been reviewed, I agree with a documented findings and plan of care. Patient was seen and examined.
[2019-11-21] MEDS: VANCOMYCIN IV PER PHARMACY 1 EACH MISC MISCELLANE SCH (09:51)
[2019-11-21] MEDS ORDERED: VANCOMYCIN 1,250 MG in SODIUM CHLORIDE 0.9% 250 ML IVPB ONE (10:00)
--- NOTE | 2019-11-21 10:46 | P.CONS ---
History of Present Illness - Reason for Consult Consult date: 11/21/19 Pancytopenia - History of Present Illness The patient is a 49-year-old white male with multiple medical problems, including history of end-stage renal disease currently on hemodialysis Saturday and Saturday. The patient was admitted with a 3-4 day history of progressive fatigue, shortness of breath on exertion, chest congestion and cough productive of yellowish sputum and occasional small amounts of blood. On admission just x-ray showed extensive right-sided pneumonia due to which the patient was admitted for further management. On admission hemoglobin was in the 10-11 range. WBC was 4 on admission and subsequently dropped to 2.6.. Platelets have been in the 80-90,000 range since admission. Consult was therefore placed a further evaluation and recommendations The patient has a known history of anemia which has been felt to be related to his chronic kidney disease including need for transfusions previously. He is on BERTIN with hemodialysis. He denies any knowledge of other blood problems previ ously. Multiple labs were reviewed going back to 2017. The patient's WBC has generally been in the normal range. He has had drops in platelet counts usually transient and associated with a new acute illness. The patient is on Keppra for the last 3 years at least. He states that he used to be a significant alcohol user in his late teens and early 20s but not since. He denies any history of chronic liver disease. Review of Systems Constitutional: Reports fatigue, Reports poor appetite, Reports weakness Eyes: denies blurred vision, denies pain Ears: deny: decreased hearing, ear discharge, earache, tinnitus Ears, nose, mouth and throat: Denies headache, Denies sore throat Cardiovascular: Reports shortness of breath Respiratory: Reports cough with sputum, Reports dyspnea, Reports hemoptysis Gastrointestinal: Denies abdominal pain, Denies diarrhea, Denies nausea, Denies vomiting Genitourinary: Reports as per HPI Musculoskeletal: Reports muscle weakness Integumentary: Denies pruritus, Denies rash Neurological: Reports weakness Psychiatric: Denies anxiety, Denies depression Endocrine: Reports fatigue Hematologic/Lymphatic: Reports as per HPI Past Medical History Past Medical History: Atrial Fibrillation, Blood Disorder, CVA/TIA, Eye Disorder, GI Bleed, Hyperlipidemia, Hypertension, Renal Disease, Seizure Disorder Additional Past Medical History / Comment(s): End-stage renal disease on hemodialysis schedule of Saturday, and Saturday with last dialysis 10/20/18, urolithiasis/nephrolithiasis, acute hypoxic respiratory failure after missed dialysis, paroxysmal Afib, chronic anemia, chronic thrombocytopenia, lower GI bleed, duodenal ulcer, seizures with last seizures 12/2017, 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 History of Any Multi-Drug Resistant Organisms: None Reported Past Surgical History: Bladder Surgery, Orthopedic Surgery Additional Past Surgical History / Comment(s): Hemorrhoidectomy, EGDs, colonoscopies, L sided Vats with decortication, pericardial window, hemodialysis fistula, cystoscopies/lithotripsies, bilateral renal stents, double J catheter. Past Anesthesia/Blood Transfusion Reactions: No Reported Reaction Additional Past Anesthesia/Blood Transfusion Reaction / Comm: Pt has received blood in past without reaction. Past Psychological History: No Psychological Hx Reported Smoking Status: Current every day smoker Past Alcohol Use History: None Reported Additional Past Alcohol Use History / Comment(s): Patient is a smoker one pack per day since he was 17 years of age. He denies any marijuana, illicit drug use, alcohol use, vaping. Past Drug Use History: None Reported - Past Family History Father Family Medical History: Cancer, CVA/TIA Additional Family Medical History / Comment(s): Father had lymphoma. He had a CVA Mother Family Medical History: CVA/TIA Additional Family Medical History / Comment(s): Mother had a CVA. Medications and Allergies Home Medications Medication Instructions Recorded Confirmed Type Atorvastatin [Lipitor] 20 mg PO DAILY #30 tablet 07/27/17 11/20/19 Rx amLODIPine [Norvasc] 5 mg PO BID tab 07/27/17 11/20/19 Rx Gabapentin [Neurontin] 100 mg PO BID #60 cap 12/25/17 11/20/19 Rx levETIRAcetam [Keppra] 1,000 mg PO Q12HR #120 tab 12/25/17 11/20/19 Rx Labetalol [Trandate] 400 mg PO BID 09/03/18 11/20/19 History Furosemide [Lasix] 80 mg PO BID 06/16/19 11/20/19 History Sevelamer [Renvela] 800 mg PO AC-TID 06/16/19 11/20/19 History cloNIDine HCL [Catapres] 0.1 mg PO TID PRN 06/16/19 11/20/19 History hydrALAZINE HCL [Apresoline] 75 mg PO TID 06/16/19 11/20/19 History Acetaminophen-Codeine 300-30mg 1 tab PO Q6H PRN 11/20/19 11/20/19 History [Tylenol w/codeine #3] Calcium Acetate [Phoslo] 2,001 mg PO AC-TID 11/20/19 11/20/19 History Calcium Carbonate [Tums] 500 mg PO AC-TID 11/20/19 11/20/19 History Methocarbamol [Robaxin] 1,000 mg PO TID PRN 11/20/19 11/20/19 History Allergies Allergy/AdvReac Type Severity Reaction Status Date / Time No Known Allergies Allergy Verified 11/20/19 08:16 Physical Exam Vitals: Vital Signs Temp Pulse Pulse Resp BP Pulse Ox 11/21/19 08:38 76 11/21/19 08:27 68 11/21/19 03:49 66 18 170/89 96 11/21/19 00:00 98.9 F 71 18 160/80 94 L 11/20/19 20:29 99 F 72 18 169/81 94 L 11/20/19 19:55 74 11/20/19 19:44 78 16 11/20/19 16:33 98.9 F 78 20 157/83 11/20/19 16:18 78 11/20/19 16:08 71 16 97 11/20/19 15:56 98.7 F 77 16 162/89 97 11/20/19 12:16 97.9 F 11/20/19 11:57 79 16 163/82 95 11/20/19 11:08 80 11/20/19 10:59 78 Intake and Output 11/20/19 11/21/19 11/21/19 22:59 06:59 14:59 Intake Total 100 100 Output Total 1500 Balance -1400 100 Intake: Intake, IV Titration 100 100 Amount Piperacillin-Tazobactam 3 100 100 .375 gm In Sodium Chloride 0.9% 100 ml @ 25 mls/hr IVPB Q12H [facility] Rx# :[id number] Output: Hemodialysis 1500 - Constitutional General appearance: no acute distress - EENT Eyes: EOMI, PERRLA ENT: hearing grossly normal, normal oropharynx - Neck Neck: no lymphadenopathy Thyroid: bilateral: normal size - Respiratory Respiratory: right: diminished, rales - Cardiovascular Rhythm: regular Heart sounds: normal: S1, S2 - Gastrointestinal General gastrointestinal: normal bowel sounds, soft - Integumentary Integumentary: normal - Neurologic Neurologic: CNII-XII intact - Musculoskeletal Dialysis access right upper extremity Musculoskeletal: generalized weakness, strength equal bilaterally - Psychiatric Psychiatric: A&O x's 3 Results CBC & Chem 7: 11/21/19 06:34 11/21/19 06:34 Labs: Abnormal Lab Results - Last 24 Hours (Table) 11/19/19 11/20/19 11/20/19 Range/Units 21:15 09:12 09:12 WBC (3.8-10.6) k/uL RBC 2.81 L (4.30-5.90) m/uL Hgb 10.1 L (13.0-17.5) gm/dL Hct 30.3 L (39.0-53.0) % MCV 108.0 H (80.0-100.0) fL MCH 35.9 H (25.0-35.0) pg RDW 16.1 H (11.5-15.5) % Plt Count 84 L (150-450) k/uL Lymphocytes # (1.0-4.8) k/uL Macrocytosis Marked A BUN (9-20) mg/dL Creatinine (0.66-1.25) mg/dL POC Glucose (mg/dL) (75-99) mg/dL Troponin I 0.097 H* (0.000-0.034) ng/mL Hep Bs Antibody Reactive H (Non-Reactive) 11/20/19 11/20/19 11/21/19 Range/Units 11:57 16:50 00:25 WBC 2.6 L (3.8-10.6) k/uL RBC 2.95 L (4.30-5.90) m/uL Hgb 10.4 L (13.0-17.5) gm/dL Hct 31.7 L (39.0-53.0) % MCV 107.3 H (80.0-100.0) fL MCH 35.4 H (25.0-35.0) pg RDW 15.9 H (11.5-15.5) % Plt Count 90 L (150-450) k/uL Lymphocytes # (1.0-4.8) k/uL Macrocytosis Marked A BUN (9-20) mg/dL Creatinine (0.66-1.25) mg/dL POC Glucose (mg/dL) 116 H 121 H (75-99) mg/dL Troponin I (0.000-0.034) ng/mL Hep Bs Antibody (Non-Reactive) 11/21/19 11/21/19 Range/Units 06:34 06:34 WBC 2.9 L (3.8-10.6) k/uL RBC 2.89 L (4.30-5.90) m/uL Hgb 10.1 L (13.0-17.5) gm/dL Hct 30.7 L (39.0-53.0) % MCV 106.0 H (80.0-100.0) fL MCH (25.0-35.0) pg RDW 15.8 H (11.5-15.5) % Plt Count 89 L (150-450) k/uL Lymphocytes # 0.3 L (1.0-4.8) k/uL Macrocytosis BUN 34 H (9-20) mg/dL Creatinine 7.96 H* (0.66-1.25) mg/dL POC Glucose (mg/dL) (75-99) mg/dL Troponin I (0.000-0.034) ng/mL Hep Bs Antibody (Non-Reactive) Microbiology - Last 24 Hours (Table) 11/19/19 21:15 Blood Culture - Preliminary Blood No Growth after 24 hours Comments: Echocardiogram 06/05 report reviewed Pathology reports from 02/02 and 11/04 were reviewed Chest x-ray: report reviewed CT scan - chest: report reviewed (From 02/02) Venous US: report reviewed (From 03/05) Assessment and Plan (1) Pancytopenia Narrative/Plan: The patient has a known history of anemia, most likely due to CKD. In fact his hemoglobin currently is better than his usual baseline. Case was discussed with nephrology to confirm that the patient has been receiving BERTIN. Previously had not been compliant with dialysis, but has been more so recently due to which she has been getting PSA more regularly also. Drop in WBC during this admission is new and WBC was actually normal at 4000 on admission. He has had previous drops in platelet counts usually associated with acute illness with recovery back into the normal range. - Based on the above clinical picture, a primary bone marrow disorder is felt to be unlikely at this time. As noted the patient most likely has anemia due to chronic kidney disease which is actually doing better. He has been on Keppra for some years, which can cause a degree of underlying bone marrow suppression. In this situation, any new acute insult such as infection/inflammation can cause transient, further drops in counts. - Or counts are currently in a safe range and therefore acute intervention is not required. Continue to monitor with the expectation that counts will likely improve back to baseline once acute infection has been treated adequately. During that time, treat supportively if needed - Pancytopenia labs will be ordered to rule out any occult underlying condition otherwise. - Patient will need follow-up as an outpatient to ensure her counts have returned back to baseline. If pancytopenia persists without adequate explanation then additional workup such as bone marrow can be considered in the outpatient setting Current Visit: Yes Status: Acute Code(s): D61.818 - OTHER PANCYTOPENIA SNOMED Code(s): 379281317 (2) Community acquired pneumonia Narrative/Plan: The patient has extensive right-sided pneumonia, leading to this presentation. He is currently doing better. Defer to the admitting service and other consultants for ongoing management Current Visit: Yes Status: Acute Code(s): J18.9 - PNEUMONIA, UNSPECIFIED ORGANISM SNOMED Code(s): 136852104 Plan: Defer to the admitting service and other consultants for management of his other multiple medical problems
--- NOTE | 2019-11-21 13:45 | P.PN ---
Subjective Progress Note Date: 11/21/19 This is a 49-year-old male patient of Dr. Holguin with past medical history of end-stage renal disease secondary to kidney stones on hemodialysis for 10 years 3 times weekly- Mo, We, Fr, hypertension, hypertensive cardiovascular disease, seizure disorder, left thalamus stroke, previous admission for acute hypoxic respiratory failure secondary to fluid overload from missing dialysis treatments requiring mechanical ventilation, history of empyema status post VATS and pericardial window, history of chronic thrombocytopenia, tobacco use and dependence, paroxysmal atrial fibrillation in February 2018. Patient states that he has had a cough for 3-4 days along with fever, feeling tired and fatigued. He states he has been bringing up phlegm along with some blood that has been continuous each time he coughs up to 1 tablespoon of blood. He denies any outpatient treatment for pneumonia recently. Patient came into [facility] emergency center for evaluation found to be febrile at 102.4, heart rate 95, respiratory rate 24, blood pressure 189/88 and pulse ox 85% on room air. WBC was 5.2, hemoglobin 10.7, platelet count 91. Sodium 136, potassium 4.6, chloride 91, CO2 34, BUN 37, creatinine 9.13, blood sugar 96. Lactic acid 0.8, proBNP 109,000, troponin 0.088, 0.103, 0.097. Chest x-ray reveals extensive pneumonia on the right side. No heart failure seen. Significant clearing of patchy pneumonia left lower lobe compared to old exam. Patient was given dose of ceftriaxone and azithromycin, admitted to the cardiac stepdown unit, consults in place with pulmonary medicine and nephrology. 11/21: Patient is seen and followed by Dr. Leggett and cardiology. Acute coronary syndrome has been ruled out. Patient's breathing status is much improved today. He denies having any further blood in his sputum. He states he is eating okay and appetite is improving. He underwent hemodialysis yesterday with removal of 1.5 L. Consult was added for Dr. Covarrubias regarding pancytopenia and concern for myelodysplasia. Lab studies have been ordered and patient follow-up as an outpatient to see if counts will return to normal otherwise patient will require bone marrow biopsy as an outpatient. Review of Systems Constitutional: Denies chills, Reports fatigue, denies fever, denies lethargy, denies malaise, denies poor appetite, denies weakness, Denies weight loss Eyes: denies blurred vision, denies pain Ears, nose, mouth and throat: Denies dysphagia, Denies headache, Denies nasal congestion, Denies nasal discharge, Denies sore throat, Denies vertigo Cardiovascular: Reports dyspnea on exertion, Reports shortness of breath, Denies chest pain, Denies leg edema, Denies lightheadedness, Denies syncope Respiratory: Reports cough with sputum, Reports dyspnea-improving, Reports excessive sputum, denies hemoptysis, Reports respiratory infections, Reports wheezing, Denies cough, Denies home oxygen Gastrointestinal: Denies abdominal pain, Denies diarrhea, Denies nausea, Denies vomiting Genitourinary: Denies dysuria, Denies urinary retention Musculoskeletal: Denies frequent falls, Denies gait dysfunction, Denies myalgias Integumentary: Denies pruritus, Denies rash, Denies wounds Neurological: Denies change in mentation, Denies change in speech, Denies numbness, Denies weakness Psychiatric: Denies anxiety, Denies depression Endocrine: Denies fatigue, Denies weight change Objective - Vital Signs Vital signs: Vital Signs Temp 98.9 F 11/21/19 00:00 Pulse 76 11/21/19 08:38 Resp 18 11/21/19 03:49 BP 170/89 11/21/19 03:49 Pulse Ox 96 11/21/19 03:49 Intake & Output 11/20/19 11/21/19 11/21/19 18:59 06:59 18:59 Intake Total 736 200 Output Total 1500 Balance -764 200 Intake: IV 260 0.9 10 Vancomycin 1,250 mg In 250 Sodium Chloride 0.9% 250 ml @ 125 mls/hr IVPB ONCE ONE Rx#:[id number] Intake, IV Titration 200 Amount Piperacillin-Tazobactam 3 200 .375 gm In Sodium Chloride 0.9% 100 ml @ 25 mls/hr IVPB Q12H COUNTS INCLUDE 234 BEDS AT THE [facility] Rx# :[id number] Oral 476 Output: Hemodialysis 1500 - Exam Gen: This is a 49-year-old male patient resting in bed and appears to be comfortable. No acute respiratory distress is noted. HEENT: Head is atraumatic, normocephalic. Pupils equal, round. Sclerae is anicteric. NECK: Supple. No JVD. No lymphadenopathy. No thyromegaly. LUNGS: Minimal Expiratory wheeze bilaterally. No accessory muscle usage. No intercostal retractions. HEART: Regular rate and rhythm. Systolic murmur. ABDOMEN: Soft. Bowel sounds are present. No masses. No tenderness. EXTREMITIES: No pedal edema. No calf tenderness. No lower extremity wounds. NEUROLOGICAL: Patient is awake, alert and oriented x3. Cranial nerves 2 through 12 are grossly intact. - Labs CBC & Chem 7: 11/21/19 06:34 11/21/19 06:34 Labs: Abnormal Lab Results - Last 24 Hours (Table) 11/19/19 11/20/19 11/20/19 Range/Units 21:15 09:12 09:12 WBC (3.8-10.6) k/uL RBC 2.81 L (4.30-5.90) m/uL Hgb 10.1 L (13.0-17.5) gm/dL Hct 30.3 L (39.0-53.0) % MCV 108.0 H (80.0-100.0) fL MCH 35.9 H (25.0-35.0) pg RDW 16.1 H (11.5-15.5) % Plt Count 84 L (150-450) k/uL Lymphocytes # (1.0-4.8) k/uL Macrocytosis Marked A BUN (9-20) mg/dL Creatinine (0.66-1.25) mg/dL POC Glucose (mg/dL) (75-99) mg/dL Troponin I 0.097 H* (0.000-0.034) ng/mL Hep Bs Antibody Reactive H (Non-Reactive) 11/20/19 11/20/19 11/21/19 Range/Units 11:57 16:50 00:25 WBC 2.6 L (3.8-10.6) k/uL RBC 2.95 L (4.30-5.90) m/uL Hgb 10.4 L (13.0-17.5) gm/dL Hct 31.7 L (39.0-53.0) % MCV 107.3 H (80.0-100.0) fL MCH 35.4 H (25.0-35.0) pg RDW 15.9 H (11.5-15.5) % Plt Count 90 L (150-450) k/uL Lymphocytes # (1.0-4.8) k/uL Macrocytosis Marked A BUN (9-20) mg/dL Creatinine (0.66-1.25) mg/dL POC Glucose (mg/dL) 116 H 121 H (75-99) mg/dL Troponin I (0.000-0.034) ng/mL Hep Bs Antibody (Non-Reactive) 11/21/19 11/21/19 Range/Units 06:34 06:34 WBC 2.9 L (3.8-10.6) k/uL RBC 2.89 L (4.30-5.90) m/uL Hgb 10.1 L (13.0-17.5) gm/dL Hct 30.7 L (39.0-53.0) % MCV 106.0 H (80.0-100.0) fL MCH (25.0-35.0) pg RDW 15.8 H (11.5-15.5) % Plt Count 89 L (150-450) k/uL Lymphocytes # 0.3 L (1.0-4.8) k/uL Macrocytosis BUN 34 H (9-20) mg/dL Creatinine 7.96 H* (0.66-1.25) mg/dL POC Glucose (mg/dL) (75-99) mg/dL Troponin I (0.000-0.034) ng/mL Hep Bs Antibody (Non-Reactive) Microbiology - Last 24 Hours (Table) 11/19/19 21:15 Blood Culture - Preliminary Blood No Growth after 24 hours Assessment and Plan Plan: 1. Acute hypoxic respiratory failure secondary to COPD exacerbation and right- sided pneumonia, possible gram-negative pneumonia. Patient will be started on Zosyn and vancomycin, pharmacy to dose. Continue DuoNeb treatments 4 times daily and every 2 hours as needed, Solu-Medrol discontinued, pulmonary consult, obtain sputum specimen, Legionella, Mycoplasma testing in progress. 2. History of anemia of chronic disease with baseline hemoglobin of 8. 3. End-stage renal disease on hemodialysis Saturday and Saturday. Consult with Dr. Park. Continue PhosLo. 4. Hypertension, hypertensive cardiovascular disease. Continue Norvasc 5 mg twice daily, labetalol 400 mg twice daily, hydralazine 100 mg 3 times daily, IV hydralazine and clonidine as needed. 5. History of seizure disorder. Continue Keppra 1000 mg twice daily. 6. History of empyema status post VATS and pericardial window. 7. History of left thalamus stroke. Continue Lipitor 20 mg daily for secondary prevention. 8. Tobacco use and dependence. Nicotine patch. 9. Chronic thrombocytopenia. Currently stable. 10. DVT prophylaxis. KP hose and SCDs. 11. GI prophylaxis. Protonix 11. CODE STATUS: Full code. 12. Pancytopenia. Oncology consult appreciated. Patient will need follow-up as an outpatient if not improving, bone marrow biopsy will be necessary. Discharge plan: Return home Impression and plan of care have been directed as dictated by the signing physician. Doretha Brumfield nurse practitioner acting as scribe for signing physician.
--- NOTE | 2019-11-21 14:00 | ECHOF ---
Referral Reason:abn trop MEASUREMENTS -------- HEIGHT: 165.1 cm WEIGHT: 70.3 kg BP: RVIDd: 2.5 cm (< 3.3) IVSd: 1.9 cm (0.6 - 1.1) LVIDd: 4.9 cm (3.9 - 5.3) LVPWd: 1.7 cm (0.6 - 1.1) IVSs: 1.6 cm LVIDs: 3.4 cm LVPWs: 2.2 cm LAESV Index (A-L): 30.87 ml/m Ao Diam: 3.1 cm (2.0 - 3.7) AV Cusp: 2.0 cm (1.5 - 2.6) LA Diam: 3.2 cm (2.7 - 3.8) MV EXCURSION: 18.395 mm (> 18.000) MV EF SLOPE: 95 mm/s (70 - 150) EPSS: 1.2 cm MV E To: 0.98 m/s MV DecT: 215 ms MV A To: 0.78 m/s MV E/A Ratio: 1.26 AV maxP.70 mmHg AV meanP.38 mmHg RAP: 15.00 mmHg RVSP: 23.09 mmHg FINDINGS -------- Sinus rhythm. This was a technically good study. The left ventricular size is normal. There is severe concentric left ventricular hypertrophy. Ove rall left ventricular systolic function is normal with, an EF between 55 - 60 %. The right ventricle is normal in size. LA is midly dilated 29-33ml/m2. The right atrial size is normal. Aortic valve is trileaflet and is mildly thickened. Peak/mean gradient across the Aortic Valve is 1 7.70mmHg / 9.38mmHg. The mitral valve is normal. The mitral valve leaflets are mildly thickened. Mild mitral regurgita tion is present. The tricuspid valve appears structurally normal. Mild tricuspid regurgitation present. Right vent ricular systolic pressure is normal at < 35 mmHg. There is no pulmonic regurgitation present. The aortic root size is normal. The inferior vena cava is mildly dilated. There is no pericardial effusion. CONCLUSIONS -------- 1. Sinus rhythm. 2. This was a technically good study. 3. The left ventricular size is normal. 4. There is severe concentric left ventricular hypertrophy. 5. Overall left ventricular systolic function is normal with, an EF between 55 - 60 %. 6. The right ventricle is normal in size. 7. LA is midly dilated 29-33ml/m2. 8. The right atrial size is normal. 9. Aortic valve is trileaflet and is mildly thickened. 10. Peak/mean gradient across the Aortic Valve is 17.70mmHg / 9.38mmHg. 11. The mitral valve is normal. 12. The mitral valve leaflets are mildly thickened. 13. Mild mitral regurgitation is present. 14. The tricuspid valve appears structurally normal. 15. Mild tricuspid regurgitation present. 16. Right ventricular systolic pressure is normal at < 35 mmHg. 17. There is no pulmonic regurgitation present. 18. The aortic root size is normal. 19. The inferior vena cava is mildly dilated. 20. There is no pericardial effusion. [employer]: Michelle Devi RDCS
--- NOTE | 2019-11-21 14:21 | P.PN ---
Subjective Progress Note Date: 11/21/19 Principal diagnosis: Right-sided pneumonia associated with hemoptysis. The patient is seen today 11/21/2019 in follow-up on the selective care unit. He is currently sitting up in a chair at the bedside. Awake and alert in no acute distress. Breathing quite a bit easier today compared to yesterday. He did receive hemodialysis yesterday. 1.5 L removed. White count 2.9. He moglobin 10.1. Platelet count 89,000. Creatinine 7.96. Potassium 4.5. Remains on antibiotics in the form of Zosyn. Objective - Vital Signs Vital signs: Vital Signs Temp 98.3 F 11/21/19 11:49 Pulse 56 L 11/21/19 11:49 Resp 18 11/21/19 12:00 BP 136/77 11/21/19 11:49 Pulse Ox 99 11/21/19 11:49 Intake & Output 11/20/19 11/21/19 11/21/19 18:59 06:59 18:59 Intake Total 736 200 Output Total 1500 Balance -764 200 Intake: IV 260 0.9 10 Vancomycin 1,250 mg In 250 Sodium Chloride 0.9% 250 ml @ 125 mls/hr IVPB ONCE ONE Rx#:[id number] Intake, IV Titration 200 Amount Piperacillin-Tazobactam 3 200 .375 gm In Sodium Chloride 0.9% 100 ml @ 25 mls/hr IVPB Q12H [facility] Rx# :[id number] Oral 476 Output: Hemodialysis 1500 - Exam GENERAL EXAM: Alert, active, pleasant 49-year-old gentleman, on 2 L nasal cannula with O2 saturation 99%, comfortable in no apparent distress. HEAD: Normocephalic. EYES: Normal reaction of pupils, equal size. NOSE: Clear with pink turbinates. THROAT: No erythema or exudates. NECK: No masses, no JVD. CHEST: No chest wall deformity. LUNGS: Equal air entry with few scattered rhonchi more so on the right lung. CVS: S1 and S2 normal with no audible murmur, regular rhythm. ABDOMEN: No hepatosplenomegaly, normal bowel sounds, no guarding or rigidity. SPINE: No scoliosis or deformity SKIN: No rashes CENTRAL NERVOUS SYSTEM: No focal deficits, tone is normal in all 4 extremities. EXTREMITIES: There is no peripheral edema. No clubbing, no cyanosis. Peripheral pulses are intact. - Labs CBC & Chem 7: 11/21/19 06:34 11/21/19 06:34 Labs: Abnormal Lab Results - Last 24 Hours (Table) 11/19/19 11/20/19 11/21/19 Range/Units 21:15 16:50 00:25 WBC 2.6 L (3.8-10.6) k/uL RBC 2.95 L (4.30-5.90) m/uL Hgb 10.4 L (13.0-17.5) gm/dL Hct 31.7 L (39.0-53.0) % MCV 107.3 H (80.0-100.0) fL MCH 35.4 H (25.0-35.0) pg RDW 15.9 H (11.5-15.5) % Plt Count 90 L (150-450) k/uL Lymphocytes # (1.0-4.8) k/uL Macrocytosis Marked A BUN (9-20) mg/dL Creatinine (0.66-1.25) mg/dL POC Glucose (mg/dL) 121 H (75-99) mg/dL Hep Bs Antibody Reactive H (Non-Reactive) 11/21/19 11/21/19 Range/Units 06:34 06:34 WBC 2.9 L (3.8-10.6) k/uL RBC 2.89 L (4.30-5.90) m/uL Hgb 10.1 L (13.0-17.5) gm/dL Hct 30.7 L (39.0-53.0) % MCV 106.0 H (80.0-100.0) fL MCH (25.0-35.0) pg RDW 15.8 H (11.5-15.5) % Plt Count 89 L (150-450) k/uL Lymphocytes # 0.3 L (1.0-4.8) k/uL Macrocytosis BUN 34 H (9-20) mg/dL Creatinine 7.96 H* (0.66-1.25) mg/dL POC Glucose (mg/dL) (75-99) mg/dL Hep Bs Antibody (Non-Reactive) Microbiology - Last 24 Hours (Table) 11/19/19 21:15 Blood Culture - Preliminary Blood No Growth after 24 hours Assessment and Plan Assessment: 1 Right-sided pneumonia associated with hemoptysis 2 Acute exacerbation of chronic obstructive pulmonary disease 3 Chronic and ongoing tobacco dependence 4 End-stage renal disease receiving hemodialysis Saturday 5 Chronic atrial fibrillation 6 Thrombocytopenia 7 History of CVA 8 History of GI bleed 9 Hyperlipidemia 10 Hypertension 11 History of seizure disorder 12 Previous history of left lung empyema and left-sided VATS procedure with decortication Plan: The patient was seen and evaluated by Dr. Leggett. He is improved from the pulm onary standpoint. We'll continue the current treatment plan. Repeat a chest x- ray in the a.m. We'll continue to follow. I, the cosigning physician, performed a history & physical examination of the patient. Lungs sounds bilateral scattered rhonchi right greater than left. Maint aining good O2 saturations in the 90s on 2 L/m per nasal cannula. I discussed the assessment and plan of care with my nurse practitioner, Jing Patterson. I attest to the above note as dictated by her.
--- NOTE | 2019-11-21 15:00 | PN ---
PROGRESS NOTE Patient is seen for followup for end-stage renal disease. He is currently comfortable, denies any significant complaints. The patient was dialyzed yesterday. PHYSICAL EXAMINATION: On examination, blood pressure 136/77, heart rate 56 per minute, he is afebrile. Examination of the heart S1, S2. Examination of the lungs, decreased breath sounds at the bases. Abdomen is soft, nontender. Examination of lower extremities shows no significant edema. APPLIANCE SERVICE TECHNICIAN exam grossly intact. LABS: Show hemoglobin 10.1, sodium 137, potassium 4.5, chloride 98, CO2 is 27, creatinine 7.9. ASSESSMENT: 1. End-stage renal disease, on hemodialysis on a Saturday, Saturday, Saturday schedule, status post dialysis yesterday. We will plan for next treatment on Saturday. 2. Pneumonia, maintained on antibiotics. 3. Chronic kidney disease mineral bone disorder. 4. Anemia of chronic disease. Hemoglobin at goal. 5. Hypertension with fair controlled. PLAN: Next treatment on Saturday. Continue antibiotics. MMODL / IJN: [id number] /
[2019-11-21] MEDS: cloNIDine HCL 0.1 MG TAB PO SCH ×2 (16:16→21:27)
[2019-11-21 21:29] LABS: Glucose,Whole Blood 108 mg/dL (75-99)
[2019-11-21 21:40] LABS: Appearance,Urine Cloudy (Clear); Bilirubin,Urine Negative (Negative); Blood,Urine Moderate (Negative); Color,Urine Light Yellow; Glucose,Urine (UA) 1+ (Negative); Ketones,Urine Negative (Negative); Leukocyte Esterase,Urine Negative (Negative); Nitrite,Urine Negative (Negative); PH, Urine 8.5 (5.0-8.0); Protein,Urine 2+ (Negative); RBC,Urine 67 /hpf (0-5); Specific Gravity,Urine 1.006 (1.001-1.035); Urobilinogen,Urine <2.0 mg/dL (<2.0); WBC,Urine 1 /hpf (0-5)
[2019-11-22] MEDS: PIPERACILLIN-TAZOBACTAM 3.375 GM in SODIUM CHLORIDE 0.9% 100 ML IVPB SCH ×2 (03:19→16:01)
[2019-11-22 06:08] LABS: Glucose,Whole Blood 81 mg/dL (75-99)
[2019-11-22] MEDS: SEVELAMER 800 MG TAB PO SCH ×3 (06:34→17:41)
[2019-11-22] MEDS: CALCIUM CARBONATE 500 MG CHEWABLE PO SCH ×3 (06:34→17:41)
[2019-11-22] MEDS: CALCIUM ACETATE 667 MG TAB PO SCH ×3 (06:34→17:41)
[2019-11-22] MEDS: INSULIN ASPART (NovoLOG) 100 UNIT/ML VIAL SQ SCH ×2 (06:34→11:30)
[2019-11-22] MEDS: IPRATROPIUM-ALBUTEROL 3 ML NEB INHALATION SCH ×4 (07:31→18:52)
[2019-11-22] MEDS: GABAPENTIN 100 MG CAP PO SCH ×2 (08:02→21:04)
[2019-11-22] MEDS: FUROSEMIDE 80 MG TAB PO SCH ×2 (08:02→16:01)
[2019-11-22] MEDS: levETIRAcetam 500 MG TAB PO SCH ×2 (08:02→21:03)
[2019-11-22] MEDS: NICOTINE 21MG/24HR PATCH TRANSDERM SCH (08:02)
[2019-11-22] MEDS: amLODIPine 5 MG TAB PO SCH ×2 (08:02→21:04)
[2019-11-22] MEDS: hydrALAZINE HCL 25 MG TAB PO SCH ×3 (08:02→21:03)
[2019-11-22] MEDS: ATORVASTATIN 20 MG TAB PO SCH (08:02)
[2019-11-22] MEDS: LABETALOL 200 MG TAB PO SCH ×2 (08:03→21:04)
[2019-11-22] MEDS: cloNIDine HCL 0.1 MG TAB PO SCH ×3 (08:05→21:04)
[2019-11-22] MEDS ORDERED: VANCOMYCIN 1,250 MG in SODIUM CHLORIDE 0.9% 250 ML IVPB ONE (10:00)
[2019-11-22] MEDS: VANCOMYCIN IV PER PHARMACY 1 EACH MISC MISCELLANE SCH (11:29)
[2019-11-22 11:44] LABS: Glucose,Whole Blood 118 mg/dL (75-99)
--- NOTE | 2019-11-22 11:51 | P.PN ---
Subjective Progress Note Date: 11/22/19 Principal diagnosis: Right-sided pneumonia associated with hemoptysis. The patient is seen today 11/21/2019 in follow-up on the selective care unit. He is currently sitting up in a chair at the bedside. Awake and alert in no acute distress. Breathing quite a bit easier today compared to yesterday. He did receive hemodialysis yesterday. 1.5 L removed. White count 2.9. He moglobin 10.1. Platelet count 89,000. Creatinine 7.96. Potassium 4.5. Remains on antibiotics in the form of Zosyn. The patient is seen today 11/22/2019 in follow-up on the selective care unit. Mari de jesus is currently sitting up in bed awake and alert in no acute distress. Breathing easier today as compared to yesterday. He did desaturate while in the hallway walking with on room air and may require home oxygen. He is currently afebrile. Hemodynamically stable. Blood and sputum cultures reveal no growth. Blood glucose 118. Objective - Vital Signs Vital signs: Vital Signs Temp 97.5 F L 11/22/19 11:36 Pulse 61 11/22/19 11:36 Resp 18 11/22/19 11:36 BP 151/78 11/22/19 11:36 Pulse Ox 90 L 11/22/19 11:36 Intake & Output 11/21/19 11/22/19 11/22/19 18:59 06:59 18:59 Intake Total 240 120 360 Balance 240 120 360 Weight 68.1 kg Intake: IV 20 0.9 10 Invasive Line 2 10 Vancomycin 1,250 mg In 0 Sodium Chloride 0.9% 250 ml @ 125 mls/hr IVPB ONCE ONE Rx#:[id number] Intake, IV Titration 100 Amount Piperacillin-Tazobactam 3 100 .375 gm In Sodium Chloride 0.9% 100 ml @ 25 mls/hr IVPB Q12H [facility] Rx# :[id number] Vancomycin 1,250 mg In 0 Sodium Chloride 0.9% 250 ml @ 125 mls/hr IVPB ONCE ONE Rx#:[id number] Oral 240 360 Other: Voiding Method Toilet - Exam GENERAL EXAM: Alert, active, pleasant 49-year-old gentleman, on 2 L nasal cannula with O2 saturation 97%, comfortable in no apparent distress. HEAD: Normocephalic. EYES: Normal reaction of pupils, equal size. NOSE: Clear with pink turbinates. THROAT: No erythema or exudates. NECK: No masses, no JVD. CHEST: No chest wall deformity. LUNGS: Equal air entry with few scattered rhonchi more so on the right lung. CVS: S1 and S2 normal with no audible murmur, regular rhythm. ABDOMEN: No hepatosplenomegaly, normal bowel sounds, no guarding or rigidity. SPINE: No scoliosis or deformity SKIN: No rashes CENTRAL NERVOUS SYSTEM: No focal deficits, tone is normal in all 4 extremities. EXTREMITIES: There is no peripheral edema. No clubbing, no cyanosis. P eripheral pulses are intact. - Labs CBC & Chem 7: 11/21/19 06:34 11/21/19 06:34 Labs: Abnormal Lab Results - Last 24 Hours (Table) 11/21/19 11/21/19 11/22/19 Range/Units 21:22 21:24 11:37 POC Glucose (mg/dL) 108 H 118 H (75-99) mg/dL Urine pH 8.5 H (5.0-8.0) Urine Protein 2+ H (Negative) Urine Glucose (UA) 1+ H (Negative) Urine Blood Moderate H (Negative) Urine RBC 67 H (0-5) /hpf Microbiology - Last 24 Hours (Table) 11/21/19 20:30 Gram Stain - Preliminary Sputum Sputum Culture - Preliminary 11/19/19 21:15 Blood Culture - Preliminary Blood No Growth after 48 hours Assessment and Plan Assessment: 1 Right-sided pneumonia associated with hemoptysis 2 Acute exacerbation of chronic obstructive pulmonary disease 3 Chronic and ongoing tobacco dependence 4 End-stage renal disease receiving hemodialysis Saturday 5 Chronic atrial fibrillation 6 Thrombocytopenia 7 History of CVA 8 History of GI bleed 9 Hyperlipidemia 10 Hypertension 11 History of seizure disorder 12 Previous history of left lung empyema and left-sided VATS procedure with decortication Plan: The patient was seen and evaluated by Dr. Leggett. He is improved from the pulmonary standpoint. We will repeat the chest x-ray. We'll continue the current treatment plan. We'll continue to follow. I, the cosigning physician, performed a history & physical examination of the patient. Lungs sounds bilateral scattered rhonchi right greater than left. Maintaining good O2 saturations in the 90s on 2 L/m per nasal cannula. I discussed the assessment and plan of care with my nurse practitioner, Jing Patterson. I attest to the above note as dictated by her.
--- NOTE | 2019-11-22 12:10 | P.PN ---
Subjective Progress Note Date: 11/22/19 This is a 49-year-old male patient with history of end-stage renal disease on hemodialysis 3 times a week, paroxysmal atrial fibrillation, history of prior CVA, hypertension, COPD, chronic tobacco use. He presented to the hospital on this occasion with symptoms of worsening shortness of breath at home, he also states that he had been coughing up a significant amount of blood. According to the patient, he has been making his regular dialysis appointments however he did miss his dialysis on Saturday but did receive dialysis treatment on Saturday, and again her dialysis yesterday. A cardiology consultation was requested because of abnormality in troponins. Chest x-ray on presentation here showed extensive pneumonia on the right side, no evidence of any congestive heart failure. His EKG on presentation here showed a normal sinus rhythm with no acute changes noted. Temperature on arrival here 102.4, blood pressure on arrival 188/88, heart rate in the 90s, 85% on room air. I pressure this morning 170/80 with a heart rate in the 60s, 96% on 2 L of oxygen. White blood cell count on admission 5.2, hemoglobin 10.7, platelet count 91, sodium 136, potassium 4.6, BUN 37, creatinine 9.1. Magnesium 1.7. BNP level 109,000. Troponins 0.08, 0.10, 0.09. This morning's labs, sodium 137, potassium 4.5, BUN 34, creatinine 7.9. White blood cell count this morning 2.9 with hemoglobin of 10.1 and platelet count 89. At the time of my examination this morning, the patient states that his breathing is significantly improved from arrival here, he continues to have mild blood in his sputum. Patient denies having any chest discomfort this morning or at anytime prior to his admission here. He did have an echocardiogram with Doppler study performed in May of this past year which revealed an ejection fraction of 50-55%, left atrium was severely dilated mild to moderate mitral regurg and moderate tricuspid regurg with severe pulmonary hypertension noted at that time. 11/22/2019 Patient was seen and examined this morning, sitting up in bed at the time of my examination, does appear that his breathing is improved as compared to yesterday, he still continues to desaturate significant amount without of oxygen. Blood pressure this morning 150/70 with a heart rate in the 60s, 90% on room air. No lab data today. Echocardiogram with Doppler study revealed normal left ventricular systolic function. Objective - Vital Signs Vital signs: Vital Signs Temp 97.5 F L 11/22/19 11:36 Pulse 61 11/22/19 11:36 Resp 18 11/22/19 11:46 BP 151/78 11/22/19 11:36 Pulse Ox 90 L 11/22/19 11:36 Intake & Output 11/21/19 11/22/19 11/22/19 18:59 06:59 18:59 Intake Total 240 120 360 Balance 240 120 360 Weight 68.1 kg Intake: IV 20 0.9 10 Invasive Line 2 10 Vancomycin 1,250 mg In 0 Sodium Chloride 0.9% 250 ml @ 125 mls/hr IVPB ONCE ONE Rx#:[id number] Intake, IV Titration 100 Amount Piperacillin-Tazobactam 3 100 .375 gm In Sodium Chloride 0.9% 100 ml @ 25 mls/hr IVPB Q12H [facility] Rx# :[id number] Vancomycin 1,250 mg In 0 Sodium Chloride 0.9% 250 ml @ 125 mls/hr IVPB ONCE ONE Rx#:[id number] Oral 240 360 Other: Voiding Method Toilet - Exam PHYSICAL EXAMINATION: GENERAL: 49-year-old gentleman in no acute distress at the time of my examination HEENT: Head is atraumatic, normocephalic. Pupils equal, round. Sclera anicteric. Conjunctiva are clear. Mucous membranes of the mouth are moist. Neck is supple. There is no elevated jugular venous pressure. No carotid bruit is heard. HEART EXAMINATION: Heart S1, S2 normal. No murmur or gallop heard. CHEST EXAMINATION: Lungs reveal scattered coarse rhonchi bilaterally with some expiratory wheezing heard. ABDOMEN: Soft, nontender. Bowel sounds are heard. No organomegaly noted. EXTREMITIES: 2+ peripheral pulses with no evidence of peripheral edema and no calf tenderness noted. NEUROLOGIC patient is awake, alert and oriented 3 - Labs CBC & Chem 7: 11/21/19 06:34 11/21/19 06:34 Labs: Abnormal Lab Results - Last 24 Hours (Table) 11/21/19 11/21/19 11/22/19 Range/Units 21:22 21:24 11:37 POC Glucose (mg/dL) 108 H 118 H (75-99) mg/dL Urine pH 8.5 H (5.0-8.0) Urine Protein 2+ H (Negative) Urine Glucose (UA) 1+ H (Negative) Urine Blood Moderate H (Negative) Urine RBC 67 H (0-5) /hpf Microbiology - Last 24 Hours (Table) 11/21/19 20:30 Gram Stain - Preliminary Sputum Sputum Culture - Preliminary 11/19/19 21:15 Blood Culture - Preliminary Blood No Growth after 48 hours Assessment and Plan Plan: Assessment and plan #1 extensive pneumonia with associated hemoptysis #2 COPD exacerbation #3 nicotine addiction #4 end-stage renal disease on hemodialysis #5 paroxysmal atrial fibrillation, patient not on anticoagulation because of a recent GI bleed #6 prior CVA #7 hypertension #8 hyperlipidemia #9 history of seizure disorder #10 prior history of left lung empyema and left-sided VATS procedure with decortication #11 troponin abnormality, not suggestive of acute coronary syndrome, likely secondary to abnormal renal function Plan Echo revealed normal left ventricular systolic function. From cardiology's perspective, we will follow this patient along with you now on an as-needed basis only, please don't hesitate to call if you have any questions at all. DNP note has been reviewed, I agree with a documented findings and plan of care. Patient was seen and examined.
--- NOTE | 2019-11-22 13:17 | PN ---
PROGRESS NOTE Patient is seen for followup for end-stage renal disease. This morning he is comfortable, awake, not in any acute distress. The patient states overall he is feeling better. PHYSICAL EXAMINATION: This morning blood pressure was 162/84, heart rate 67 per minute, he is afebrile. Examination of the heart S1, S2. Examination of the lungs, bilateral breath sounds are heard. Occasional wheezing is heard. Abdomen is soft, nontender. Examination of lower extremities shows no evidence of edema. [employer] exam is grossly intact. LABS: Show hemoglobin 10.1 yesterday. Potassium was 4.5 yesterday. ASSESSMENT: 1. End-stage renal disease, on hemodialysis on a Saturday, Saturday, Saturday schedule. We will arrange for hemodialysis in a.m. 2. Pneumonia, maintained on antibiotics, slowly improving. 3. Chronic kidney disease mineral bone disorder. 4. Hypertension. PLAN: Hemodialysis in a.m., UF about 2 L as tolerated. MMODL / IJN: [id number] /
--- NOTE | 2019-11-22 15:28 | P.PN ---
Subjective Progress Note Date: 11/22/19 This is a 49-year-old male patient of Dr. Holguin with past medical history of end-stage renal disease secondary to kidney stones on hemodialysis for 10 years 3 times weekly- Mo, We, Fr, hypertension, hypertensive cardiovascular disease, seizure disorder, left thalamus stroke, previous admission for acute hypoxic respiratory failure secondary to fluid overload from missing dialysis treatments requiring mechanical ventilation, history of empyema status post VATS and pericardial window, history of chronic thrombocytopenia, tobacco use and dependence, paroxysmal atrial fibrillation in February 2018. Patient states that he has had a cough for 3-4 days along with fever, feeling tired and fatigued. He states he has been bringing up phlegm along with some blood that has been continuous each time he coughs up to 1 tablespoon of blood. He denies any outpatient treatment for pneumonia recently. Patient came into [facility] emergency center for evaluation found to be febrile at 102.4, heart rate 95, respiratory rate 24, blood pressure 189/88 and pulse ox 85% on room air. WBC was 5.2, hemoglobin 10.7, platelet count 91. Sodium 136, potassium 4.6, chloride 91, CO2 34, BUN 37, creatinine 9.13, blood sugar 96. Lactic acid 0.8, proBNP 109,000, troponin 0.088, 0.103, 0.097. Chest x-ray reveals extensive pneumonia on the right side. No heart failure seen. Significant clearing of patchy pneumonia left lower lobe compared to old exam. Patient was given dose of ceftriaxone and azithromycin, admitted to the cardiac stepdown unit, consults in place with pulmonary medicine and nephrology. 11/21: Patient is seen and followed by Dr. Leggett and cardiology. Acute coronary syndrome has been ruled out. Patient's breathing status is much improved today. He denies having any further blood in his sputum. He states he is eating okay and appetite is improving. He underwent hemodialysis yesterday with removal of 1.5 L. Consult was added for Dr. Covarrubias regarding pancytopenia and concern for myelodysplasia. Lab studies have been ordered and patient follow-up as an outpatient to see if counts will return to normal otherwise patient will require bone marrow biopsy as an outpatient. 11/22: Echocardiogram with Doppler study revealed normal left ventricular systolic function. Blood pressure 150/70, heart rate in the 60s, pulse ox 90% on room air. Patient was assessed for home oxygen need and pulse ox was 81% without oxygen. Discharge will be held today. Repeat chest x-ray has been ordered by pulmonary medicine. Patient is scheduled for hemodialysis tomorrow morning. Anticipate discharge tomorrow afternoon. Patient will be transferred to [facility] floor and discontinue telemetry. Review of Systems Constitutional: Denies chills, Reports fatigue, denies fever, denies lethargy, denies malaise, denies poor appetite, denies weakness, Denies weight loss Ears, nose, mouth and throat: Denies dysphagia, Denies headache, Denies nasal congestion, Denies nasal discharge, Denies sore throat, Denies vertigo Cardiovascular: Reports dyspnea on exertion, Reports shortness of breath, Denies chest pain, Denies leg edema, Denies lightheadedness, Denies syncope Respiratory: Reports cough with sputum, Reports dyspnea-improving, Reports excessive sputum, denies hemoptysis, Reports respiratory infections, Reports wheezing, Denies cough, Denies home oxygen Gastrointestinal: Denies abdominal pain, Denies diarrhea, Denies nausea, Denies vomiting Genitourinary: Denies dysuria, Denies urinary retention Musculoskeletal: Denies frequent falls, Denies gait dysfunction, Denies myalgias Integumentary: Denies pruritus, Denies rash, Denies wounds Neurological: Denies change in mentation, Denies change in speech, Denies numbness, Denies weakness Psychiatric: Denies anxiety, Denies depression Endocrine: Denies fatigue, Denies weight change Objective - Vital Signs Vital signs: Vital Signs Temp 97.4 F L 11/22/19 13:04 Pulse 87 11/22/19 13:04 Resp 18 11/22/19 13:04 BP 158/76 11/22/19 13:04 Pulse Ox 92 L 11/22/19 13:04 Intake & Output 11/21/19 11/22/19 11/22/19 18:59 06:59 18:59 Intake Total 240 120 360 Balance 240 120 360 Weight 68.1 kg Intake: IV 20 0.9 10 Invasive Line 2 10 Vancomycin 1,250 mg In 0 Sodium Chloride 0.9% 250 ml @ 125 mls/hr IVPB ONCE ONE Rx#:[id number] Intake, IV Titration 100 Amount Piperacillin-Tazobactam 3 100 .375 gm In Sodium Chloride 0.9% 100 ml @ 25 mls/hr IVPB Q12H [facility] Rx# :[id number] Vancomycin 1,250 mg In 0 Sodium Chloride 0.9% 250 ml @ 125 mls/hr IVPB ONCE ONE Rx#:[id number] Oral 240 360 Other: Voiding Method Toilet - Exam Gen: This is a 49-year-old male patient resting in bed and appears to be comfortable. No acute respiratory distress is noted. HEENT: Head is atraumatic, normocephalic. Pupils equal, round. Sclerae is anicteric. NECK: Supple. No JVD. No lymphadenopathy. No thyromegaly. LUNGS: Few scattered rhonchi. No intercostal retractions. HEART: Regular rate and rhythm. Systolic murmur. ABDOMEN: Soft. Bowel sounds are present. No masses. No tenderness. EXTREMITIES: No pedal edema. No calf tenderness. No lower extremity wounds. NEUROLOGICAL: Patient is awake, alert and oriented x3. Cranial nerves 2 through 12 are grossly intact. - Labs CBC & Chem 7: 11/21/19 06:34 11/21/19 06:34 Labs: Abnormal Lab Results - Last 24 Hours (Table) 11/21/19 11/21/19 11/22/19 Range/Units 21:22 21:24 11:37 POC Glucose (mg/dL) 108 H 118 H (75-99) mg/dL Urine pH 8.5 H (5.0-8.0) Urine Protein 2+ H (Negative) Urine Glucose (UA) 1+ H (Negative) Urine Blood Moderate H (Negative) Urine RBC 67 H (0-5) /hpf Microbiology - Last 24 Hours (Table) 11/21/19 20:30 Gram Stain - Preliminary Sputum Sputum Culture - Preliminary 11/19/19 21:15 Blood Culture - Preliminary Blood No Growth after 48 hours Assessment and Plan Plan: 1. Acute hypoxic respiratory failure secondary to COPD exacerbation and right- sided pneumonia, possible gram-negative pneumonia. Patient will be started on Zosyn and vancomycin, pharmacy to dose. Continue DuoNeb treatments 4 times daily and every 2 hours as needed, Solu-Medrol discontinued, pulmonary consult, obtain sputum specimen, Legionella, Mycoplasma testing in progress. 2. History of anemia of chronic disease with baseline hemoglobin of 8. 3. End-stage renal disease on hemodialysis Saturday and Saturday. Consult with Dr. Park. Continue PhosLo. 4. Hypertension, hypertensive cardiovascular disease. Continue Norvasc 5 mg twice daily, labetalol 400 mg twice daily, hydralazine 100 mg 3 times daily, IV hydralazine and clonidine as needed. 5. History of seizure disorder. Continue Keppra 1000 mg twice daily. 6. History of empyema status post VATS and pericardial window. 7. History of left thalamus stroke. Continue Lipitor 20 mg daily for secondary prevention. 8. Tobacco use and dependence. Nicotine patch. 9. Chronic thrombocytopenia. Currently stable. 10. DVT prophylaxis. KP hose and SCDs. 11. GI prophylaxis. Protonix 11. CODE STATUS: Full code. 12. Pancytopenia. Oncology consult appreciated. Patient will need follow-up as an outpatient if not improving, bone marrow biopsy will be necessary. 13. Possible chronic hypoxic respiratory failure requiring home oxygen. We'll plan to reassess tomorrow. Discharge plan: Return home on Saturday following dialysis. Impression and plan of care have been directed as dictated by the signing physician. Doretha Brumfield nurse practitioner acting as scribe for signing physician.
--- NOTE | 2019-11-22 16:30 | XR ---
EXAMINATION TYPE: XR chest 2V DATE OF EXAM: 11/22/2019 COMPARISON: 11/19/2019 INDICATION: Right lung pneumonia TECHNIQUE: Frontal and lateral views of the chest are obtained. FINDINGS: The heart size is borderline prominent. The pulmonary vasculature is prominent. There is increased lung markings diffusely through the right lung. Findings have improved from prior study. Improving pneumonia could be considered. Atypical pulmonary edema should be considered. IMPRESSION: 1. Improving right perihilar and right lung infiltrate. Residual remains and continued follow-up is r ecommended.
[2019-11-23 02:56] LABS: Mycoplasma IgG Antibody (EIA) 1.42 INDEX (<=0.90); Mycoplasma IgM Antibody 0.13 INDEX (<=0.90)
[2019-11-23] MEDS: PIPERACILLIN-TAZOBACTAM 3.375 GM in SODIUM CHLORIDE 0.9% 100 ML IVPB SCH (03:02)
[2019-11-23] MEDS: IPRATROPIUM-ALBUTEROL 3 ML NEB INHALATION SCH ×3 (07:26→15:43)
[2019-11-23] MEDS: SEVELAMER 800 MG TAB PO SCH ×2 (08:11→12:48)
[2019-11-23] MEDS: LABETALOL 200 MG TAB PO SCH (08:11)
[2019-11-23] MEDS: FUROSEMIDE 80 MG TAB PO SCH (08:11)
[2019-11-23] MEDS: levETIRAcetam 500 MG TAB PO SCH (08:11)
[2019-11-23] MEDS: CALCIUM CARBONATE 500 MG CHEWABLE PO SCH ×2 (08:11→12:48)
[2019-11-23] MEDS: GABAPENTIN 100 MG CAP PO SCH (08:11)
[2019-11-23] MEDS: amLODIPine 5 MG TAB PO SCH (08:11)
[2019-11-23] MEDS: hydrALAZINE HCL 25 MG TAB PO SCH (08:11)
[2019-11-23] MEDS: ATORVASTATIN 20 MG TAB PO SCH (08:11)
[2019-11-23] MEDS: CALCIUM ACETATE 667 MG TAB PO SCH ×2 (08:12→12:48)
[2019-11-23] MEDS: NICOTINE 21MG/24HR PATCH TRANSDERM SCH (08:12)
[2019-11-23] MEDS: cloNIDine HCL 0.1 MG TAB PO SCH ×2 (08:12→08:17)
[2019-11-23 08:27] LABS: Albumin 3.6 g/dL (3.5-5.0); Calcium 9.2 mg/dL (8.4-10.2); Potassium 4.5 mmol/L (3.5-5.1)
[2019-11-23 08:36] LABS: Basophils % (A) 1 %; Eosinophils # (A) 0.1 k/uL (0-0.7); Eosinophils % (A) 3 %; HCT 30.4 % (39.0-53.0); HGB 10.1 gm/dL (13.0-17.5); Lymphocytes # (A) 0.6 k/uL (1.0-4.8); Lymphocytes % (A) 18 %; MCH 34.7 pg (25.0-35.0); MCHC 33.1 g/dL (31.0-37.0); MCV 104.7 fL (80.0-100.0); Macrocytosis Moderate; Mean Platelet Volume 8.7; Monocytes # (A) 0.2 k/uL (0-1.0); Monocytes % (A) 5 %; Neutrophils # (A) 2.2 k/uL (1.3-7.7); Neutrophils % (A) 68 %; Platelet Count 113 k/uL (150-450); Poikilocytosis Slight; WBC 3.2 k/uL (3.8-10.6)
--- NOTE | 2019-11-23 09:54 | P.PN ---
Subjective Patient is seen in follow-up for end-stage renal disease. He is maintained on hemodialysis on Saturday schedule. Currently being treated for pneumonia. He did have fever this morning. Cough is improved. No hemoptysis. Vital signs are stable. General: The patient appeared well nourished and normally developed. HEENT: Head exam is unremarkable. Neck is without jugular venous distension. LUNGS: Lungs are clear to auscultation and percussion. Breath sounds decreased. HEART: Rate and Rhythm are regular. First and second heart sounds normal. No murmurs, rubs or gallops. ABDOMEN: Abdominal exam reveals normal bowel sounds. Non-tender and non- distended. No evidence of peritonitis. EXTREMITITES: No clubbing, cyanosis, or edema. Objective - Vital Signs Vital signs: Vital Signs Temp 97.0 F L 11/23/19 08:17 Pulse 64 11/23/19 08:17 Resp 12 11/23/19 05:20 BP 139/77 11/23/19 08:17 Pulse Ox 97 11/23/19 08:17 Intake & Output 11/22/19 11/23/19 11/23/19 18:59 06:59 18:59 Intake Total 760 350 Balance 760 350 Intake: Oral 760 350 Other: Voiding Method Toilet Toilet # Voids 1 - Labs CBC & Chem 7: 11/23/19 07:37 11/23/19 07:37 Labs: Abnormal Lab Results - Last 24 Hours (Table) 11/19/19 11/22/19 11/23/19 Range/Units 21:15 11:37 07:37 WBC 3.2 L (3.8-10.6) k/uL RBC 2.90 L (4.30-5.90) m/uL Hgb 10.1 L (13.0-17.5) gm/dL Hct 30.4 L (39.0-53.0) % MCV 104.7 H (80.0-100.0) fL RDW 16.0 H (11.5-15.5) % Plt Count 113 L (150-450) k/uL Lymphocytes # 0.6 L (1.0-4.8) k/uL Chloride (98-107) mmol/L BUN (9-20) mg/dL Creatinine (0.66-1.25) mg/dL Glucose (74-99) mg/dL POC Glucose (mg/dL) 118 H (75-99) mg/dL Total Protein (6.3-8.2) g/dL Mycoplasma pneumon IgG 1.42 H (<=0.90) INDEX 11/23/19 Range/Units 07:37 WBC (3.8-10.6) k/uL RBC (4.30-5.90) m/uL Hgb (13.0-17.5) gm/dL Hct (39.0-53.0) % MCV (80.0-100.0) fL RDW (11.5-15.5) % Plt Count (150-450) k/uL Lymphocytes # (1.0-4.8) k/uL Chloride 97 L (98-107) mmol/L BUN 58 H (9-20) mg/dL Creatinine 12.42 H* (0.66-1.25) mg/dL Glucose 105 H (74-99) mg/dL POC Glucose (mg/dL) (75-99) mg/dL Total Protein 6.0 L (6.3-8.2) g/dL Mycoplasma pneumon IgG (<=0.90) INDEX Microbiology - Last 24 Hours (Table) 11/19/19 21:15 Blood Culture - Preliminary Blood No Growth after 72 hours Assessment and Plan Plan: Assessment: 1. End-stage renal disease maintained on hemodialysis on Saturday schedule. 2. Dyspnea/hemoptysis secondary to pneumonia maintained on antibiotics. 3. Hypertension with chronic kidney disease. 4. 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 5. Anemia of chronic kidney disease. Hemoglobin at goal. Plan: Hemodialysis today. Maintain antibiotics. Potential discharge after dialysis today.
--- NOTE | 2019-11-23 12:00 | P.DS ---
Providers Date of admission: 11/20/19 00:49 Expected date of discharge: 11/23/19 Attending physician: Ariel Britt MD Consults: 11/20/19 00:45 Consult Physician Urgent Consulting Provider: Rick Park Consult Reason/Comments: esrd on hd, MWF Do you want consulting provider notified?: Yes 11/20/19 00:47 Consult Physician Urgent Consulting Provider: Reilly Leggett Consult Reason/Comments: hemoptysis Do you want consulting provider notified?: Yes, Notify in am 11/20/19 14:23 Consult Physician Routine Consulting Provider: Josefina Rosa Consult Reason/Comments: elevated trops, ESRD Do you want consulting provider notified?: Yes 11/21/19 08:42 Consult Physician Routine Consulting Provider: Taj Covarrubias Consult Reason/Comments: possible myelodysplasia Do you want consulting provider notified?: Yes Primary care physician: Jaylen Holguin [facility] Course: This is a 49-year-old male patient of Dr. oHlguin with past medical history of end-stage renal disease secondary to kidney stones on hemodialysis for 10 years 3 times weekly- Mo, We, Fr, hypertension, hypertensive cardiovascular disease, seizure disorder, left thalamus stroke, previous admissi on for acute hypoxic respiratory failure secondary to fluid overload from missing dialysis treatments requiring mechanical ventilation, history of empyema status post VATS and pericardial window, history of chronic thrombocytopenia, tobacco use and dependence, paroxysmal atrial fibrillation in February 2018. Patient states that he has had a cough for 3-4 days along with fever, feeling tired and fatigued. He states he has been bringing up phlegm along with some blood that has been continuous each time he coughs up to 1 tablespoon of blood. He denies any outpatient treatment for pneumonia recently. Patient came into [facility] emergency center for evaluation found to be febrile at 102.4, heart rate 95, respiratory rate 24, blood pressure 189/88 and pulse ox 85% on room air. WBC was 5.2, hemoglobin 10.7, platelet count 91. Sodium 136, potassium 4.6, chloride 91, CO2 34, BUN 37, creatinine 9.13, blood sugar 96. Lactic acid 0.8, proBNP 109,000, troponin 0.088, 0.103, 0 .097. Chest x-ray reveals extensive pneumonia on the right side. No heart failure seen. Significant clearing of patchy pneumonia left lower lobe compared to old exam. Patient was given dose of ceftriaxone and azithromycin, admitted to the cardiac stepdown unit, consults in place with pulmonary medicine and nephrology. 11/21: Patient is seen and followed by Dr. Leggett and cardiology. Acute coronary syndrome has been ruled out. Patient's breathing status is much improved today. He denies having any further blood in his sputum. He states he is eating okay and appetite is improving. He underwent hemodialysis yesterday with removal of 1.5 L. Consult was added for Dr. Covarrubias regarding pancytopenia and concern for myelodysplasia. Lab studies have been ordered and patient follow-up as an outpatient to see if counts will return to normal otherwise patient will require bone marrow biopsy as an outpatient. 11/22: Echocardiogram with Doppler study revealed normal left ventricular systolic function. Blood pressure 150/70, heart rate in the 60s, pulse ox 90% on room air. Patient was assessed for home oxygen need and pulse ox was 81% without oxygen. Discharge will be held today. Repeat chest x-ray has been ordered by pulmonary medicine. Patient is scheduled for hemodialysis tomorrow morning. Anticipate discharge tomorrow afternoon. Patient will be transferred to the [facility] floor and discontinue telemetry. 11/23: Patient denies any new complaints. Shortness of breath is back to baseline, no chest pain. Patient is anxious to go home today. He is scheduled for hemodialysis at noon today. Pulse ox is now 94% ambulating on room air. Patient does not require home oxygen. Patient will be discharged home once dialysis is completed. Discharge diagnoses: 1. Acute hypoxic respiratory failure secondary to COPD exacerbation and right- sided pneumonia, possible gram-negative pneumonia. 2. History of anemia of chronic disease with baseline hemoglobin of 8. 3. End-stage renal disease on hemodialysis Saturday and Saturday. 4. Hypertension, hypertensive cardiovascular disease. 5. History of seizure disorder. 6. History of empyema status post VATS and pericardial window. 7. History of left thalamus stroke. 8. Tobacco use and dependence. 9. Chronic thrombocytopenia. 10. Pancytopenia. Patient will need follow-up as an outpatient if not improving, bone marrow biopsy will be necessary. 11. Possible chronic hypoxic respiratory failure ruled out. Discharge plan: home following dialysis. Impression and plan of care have been directed as dictated by the signing physician. Doretha Brumfield nurse practitioner acting as scribe for signing physician. Patient Condition at Discharge: Good Plan - Discharge Summary New Discharge Prescriptions: New Ipratropium-Albuterol Nebulize [Duoneb 0.5 mg-3 mg/3 ml Soln] 3 ml INHALATION RT-QID #120 ampul.neb Nicotine 21Mg/24Hr Patch [Habitrol] 1 patch TRANSDERM DAILY #30 patch Amoxic-Pot Clav 500-125 mg [Augmentin 500-125 mg] 1 tab PO DAILY #7 tab Continue amLODIPine [Norvasc] 5 mg PO BID tab Atorvastatin [Lipitor] 20 mg PO DAILY #30 tablet Gabapentin [Neurontin] 100 mg PO BID #60 cap levETIRAcetam [Keppra] 1,000 mg PO Q12HR #120 tab Labetalol [Trandate] 400 mg PO BID cloNIDine HCL [Catapres] 0.1 mg PO TID PRN PRN Reason: Hypertension Sevelamer [Renvela] 800 mg PO AC-TID hydrALAZINE HCL [Apresoline] 75 mg PO TID Furosemide [Lasix] 80 mg PO BID Calcium Carbonate [Tums] 500 mg PO AC-TID Acetaminophen-Codeine 300-30mg [Tylenol w/codeine #3] 1 tab PO Q6H PRN PRN Reason: Pain Methocarbamol [Robaxin] 1,000 mg PO TID PRN PRN Reason: Pain Calcium Acetate [PhosLo] 2,001 mg PO AC-TID Discharge Medication List Atorvastatin [Lipitor] 20 mg PO DAILY #30 tablet 07/27/17 [Rx] amLODIPine [Norvasc] 5 mg PO BID tab 07/27/17 [Rx] Gabapentin [Neurontin] 100 mg PO BID #60 cap 12/25/17 [Rx] levETIRAcetam [Keppra] 1,000 mg PO Q12HR #120 tab 12/25/17 [Rx] Labetalol [Trandate] 400 mg PO BID 09/03/18 [History] Furosemide [Lasix] 80 mg PO BID 06/16/19 [History] Sevelamer [Renvela] 800 mg PO AC-TID 06/16/19 [History] cloNIDine HCL [Catapres] 0.1 mg PO TID PRN 06/16/19 [History] hydrALAZINE HCL [Apresoline] 75 mg PO TID 06/16/19 [History] Acetaminophen-Codeine 300-30mg [Tylenol w/codeine #3] 1 tab PO Q6H PRN 11/20/19 [History] Calcium Acetate [PhosLo] 2,001 mg PO AC-TID 11/20/19 [History] Calcium Carbonate [Tums] 500 mg PO AC-TID 11/20/19 [History] Methocarbamol [Robaxin] 1,000 mg PO TID PRN 11/20/19 [History] Amoxic-Pot Clav 500-125 mg [Augmentin 500-125 mg] 1 tab PO DAILY #7 tab 11/22/19 [Rx] Ipratropium-Albuterol Nebulize [Duoneb 0.5 mg-3 mg/3 ml Soln] 3 ml INHALATION RT-QID #120 ampul.neb 11/22/19 [Rx] Nicotine 21Mg/24Hr Patch [Habitrol] 1 patch TRANSDERM DAILY #30 patch 11/22/19 [Rx] Follow up Appointment(s)/Referral(s): [facility] [NON-STAFF] - As Needed Reilly Leggett DO [Doctor of Osteopathic Medicine] - 2 Weeks (Pulmonary.) Jaylen Holguin MD [Primary Care Provider] - 1-2 days Rick Park DO [STAFF PHYSICIAN] - (Please follow up at scheduled dialysis treatments. ) Patient Instructions/Handouts: Pneumonia (DC) Activity/Diet/Wound Care/Special Instructions: PNEUMONIA 1. Continue coughing and breathing exercises to help clear your lungs of secretions. 2. Sit upright during the day to promote lung expansion. Avoid lying flat. 3. Use incentive spirometer every hour to open your airways. 4. Wash your hands before taking your medications or using your nebulizer. 5. Drink clear liquids as directed, they can help loosen secretions. Avoid milk products, as these can make secretions thicker. 6. Do not smoke, or be around others who smoke. 7. Call your physician if your shortness of breath worsens, if you develop an increased fever greater than 101. Discharge Disposition: HOME SELF-CARE
[2019-11-23] MEDS: VANCOMYCIN IV PER PHARMACY 1 EACH MISC MISCELLANE SCH (12:36)
[2019-11-23 15:21] VITALS: BP 150/80; PULSE 65; RESP 18; TEMP 98.1
== END 2019-11-23 16:00 | disposition home or self-care (01) | DRG 177 ==
LOC: EC 19:53 → 3SCARD 11-20 00:49 → 6NMEDSUR 11-22 12:50
PROVIDERS: ADMIT Internal Medicine; ATTEND Internal Medicine
PROC: 5A1D70Z Performance of Urinary Filtration, Intermittent, Less than 6 Hours Per Day (ICD-10-PCS; principal; 2019-11-20)
DX: J15.6 Pneumonia due to other Gram-negative bacteria (principal); J96.01 Acute respiratory failure with hypoxia; N18.6 End stage renal disease; R04.2 Hemoptysis; D61.818 Other pancytopenia; I13.11 Hypertensive heart and chronic kidney disease without heart failure, with stage 5 chronic kidney disease, or end stage renal disease; I48.20 Chronic atrial fibrillation, unspecified; J44.0 Chronic obstructive pulmonary disease with (acute) lower respiratory infection; J44.1 Chronic obstructive pulmonary disease with (acute) exacerbation; F17.210 Nicotine dependence, cigarettes, uncomplicated; D63.1 Anemia in chronic kidney disease; E78.5 Hyperlipidemia, unspecified; G40.909 Epilepsy, unspecified, not intractable, without status epilepticus; I08.1 Rheumatic disorders of both mitral and tricuspid valves; I27.20 Pulmonary hypertension, unspecified; I48.0 Paroxysmal atrial fibrillation; Z86.73 Personal history of transient ischemic attack (TIA), and cerebral infarction without residual deficits; M89.8X9 Other specified disorders of bone, unspecified site; Z79.899 Other long term (current) drug therapy; Z80.7 Family history of other malignant neoplasms of lymphoid, hematopoietic and related tissues; Z82.3 Family history of stroke; Z87.01 Personal history of pneumonia (recurrent); Z87.442 Personal history of urinary calculi; Z99.2 Dependence on renal dialysis; R79.89 Other specified abnormal findings of blood chemistry; Z87.11 Personal history of peptic ulcer disease; H53.001 Unspecified amblyopia, right eye; M50.30 Other cervical disc degeneration, unspecified cervical region; M48.02 Spinal stenosis, cervical region; G89.29 Other chronic pain
CPT/HCPCS: 36415; 71046; 80048; 80053; 80202; 81001; 82550; 82607; 82747; 83605; 83735; 83880; 84484; 85025; 85027; 85045; 85610; 85730; 86706; 86738; 86850; 86900; 86901; 87040; 87070; 87205; 87340; 87502; 90935; 93005; 93306; 94640; 94760; 96365; 96366; 96375; 99285

== ENCOUNTER 2020-02-05 15:28 | Emergency (ER) | payer MEDICARE, BC ==
[2020-02-05 16:18] LABS: Basophils # (A) 0.1 k/uL (0-0.2); Basophils % (A) 1 %; Eosinophils # (A) 0.1 k/uL (0-0.7); Eosinophils % (A) 1 %; HCT 34.3 % (39.0-53.0); HGB 11.5 gm/dL (13.0-17.5); Lymphocytes # (A) 0.7 k/uL (1.0-4.8); Lymphocytes % (A) 9 %; MCH 35.6 pg (25.0-35.0); MCHC 33.6 g/dL (31.0-37.0); Macrocytosis Moderate; Mean Platelet Volume 8.3; Monocytes # (A) 0.5 k/uL (0-1.0); Monocytes % (A) 6 %; Neutrophils # (A) 6.4 k/uL (1.3-7.7); Neutrophils % (A) 81 %; Platelet Count 142 k/uL (150-450); RBC 3.24 m/uL (4.30-5.90); RDW 15.3 % (11.5-15.5); WBC 7.9 k/uL (3.8-10.6)
--- NOTE | 2020-02-05 16:26 | XR ---
EXAMINATION TYPE: XR chest 2V DATE OF EXAM: 02/05/2020 COMPARISON: Chest x-ray December 15, 2019 and older x-rays. HISTORY: Fever. TECHNIQUE: Frontal and lateral views of the chest are obtained. FINDINGS: There is increased interstitial prominence bilaterally with more focal bibasilar opacities . No pleural effusion or pneumothorax seen bilaterally. The cardiac silhouette size is upper limits o f normal slightly more prominent from prior. The osseous structures are intact. IMPRESSION: New mild interstitial edema with developing right greater than left bibasilar acute infi ltrate and/or atelectasis.
[2020-02-05 17:01] LABS: Albumin 4.1 g/dL (3.5-5.0); Calcium 9.3 mg/dL (8.4-10.2); Potassium 4.7 mmol/L (3.5-5.1); Total Bilirubin 0.9 mg/dL (0.2-1.3); Total Protein 6.5 g/dL (6.3-8.2)
[2020-02-05] MEDS ORDERED: cefTRIAXone IN SWFI 1,000 MG/10 ML SYRINGE IVP STA (17:39)
[2020-02-05] MEDS ORDERED: LEVOFLOXACIN 250 MG TAB PO STA (17:39)
[2020-02-05] MEDS ORDERED: AZITHROMYCIN 500 MG TAB PO STA (17:39)
[2020-02-05 17:40] VITALS: BP 184/102; PULSE 79; RESP 18; TEMP 98.7
--- NOTE | 2020-02-05 17:58 | ED ---
General Adult HPI - General Chief complaint: Recheck/Abnormal Lab/Rx Stated complaint: fever Time Seen by Provider: 02/05/20 15:43 Source: patient, RN notes reviewed, old records reviewed Mode of arrival: ambulatory Limitations: no limitations - History of Present Illness Initial comments: 49-year-old male patient past history significant for ESRD on dialysis. ED for evaluation of fever. Patient reportedly went to dialysis today and he had a fever they will not allow him to dialyze. Patient states that he took off his hat and warm clothing and then his fever resolved. He has not taken any antipyretics. In the center for evaluation. Patient denies any cough, denies any other complaints. Denies any recent travel or exposure noted virus. Ibeth nt states that his girlfriend is coughing. But she has no known contacts or travel. Systemic: Pt denies fatigue, fever/chills, rash. Pt denies weakness, night sweats, weight loss. Neuro: Pt denies headache, visual disturbances, syncope or pre-syncope. HEENT: Pt denies ocular discharge or irritation, otalgia, rhinorrhea, pharyngitis or notable lymphadenopathy. Cardiopulmonary: Pt denies chest pain, SOB, heart palpitations, dyspnea on exertion. Abdominal/GI: Pt denies abdominal pain, n/v/d. : Pt denies dysuria, burning w/ urination, frequency/urgency. Denies new onset urinary or bowel incontinence. MSK: Pt denies myalgia, loss of strength or function in extremities. Neuro: Pt denies new onset weakness, paresthesias. - Related Data Home Medications Medication Instructions Recorded Confirmed Labetalol [Trandate] 400 mg PO BID 09/03/18 11/20/19 Furosemide [Lasix] 80 mg PO BID 06/16/19 11/20/19 Sevelamer [Renvela] 800 mg PO AC-TID 06/16/19 11/20/19 cloNIDine HCL [Catapres] 0.1 mg PO TID PRN 06/16/19 11/20/19 hydrALAZINE HCL [Apresoline] 75 mg PO TID 06/16/19 11/20/19 Acetaminophen-Codeine 300-30mg 1 tab PO Q6H PRN 11/20/19 11/20/19 [Tylenol w/codeine #3] Calcium Acetate [PhosLo] 2,001 mg PO AC-TID 11/20/19 11/20/19 Calcium Carbonate [Tums] 500 mg PO AC-TID 11/20/19 11/20/19 Methocarbamol [Robaxin] 1,000 mg PO TID PRN 11/20/19 11/20/19 Previous Rx's Medication Instructions Recorded Atorvastatin [Lipitor] 20 mg PO DAILY #30 tablet 07/27/17 amLODIPine [Norvasc] 5 mg PO BID tab 07/27/17 Gabapentin [Neurontin] 100 mg PO BID #60 cap 12/25/17 levETIRAcetam [Keppra] 1,000 mg PO Q12HR #120 tab 12/25/17 Amoxic-Pot Clav 500-125 mg 1 tab PO DAILY #7 tab 11/22/19 [Augmentin 500-125 mg] Ipratropium-Albuterol Nebulize 3 ml INHALATION RT-QID #120 11/22/19 [Duoneb 0.5 mg-3 mg/3 ml Soln] ampul.neb Nicotine 21Mg/24Hr Patch [Habitrol] 1 patch TRANSDERM DAILY #30 patch 11/22/19 Azithromycin [Zithromax Z-pack] 0 mg PO DIRECTED #6 tab 02/05/20 Levofloxacin [Levaquin] 250 mg PO DAILY 4 Days #4 tablet 02/05/20 Allergies Allergy/AdvReac Type Severity Reaction Status Date / Time No Known Allergies Allergy Verified 02/05/20 15:33 Review of Systems ROS Statement: Those systems with pertinent positive or pertinent negative responses have been documented in the HPI. ROS Other: All systems not noted in ROS Statement are negative. Past Medical History Past Medical History: Atrial Fibrillation, Blood Disorder, CVA/TIA, Eye Disorder, GI Bleed, Hyperlipidemia, Hypertension, Renal Disease, Seizure Disorder Additional Past Medical History / Comment(s): End-stage renal disease on hemo dialysis schedule of Saturday, and Saturday with last dialysis 10/20/18, urolithiasis/nephrolithiasis, acute hypoxic respiratory failure after missed dialysis, paroxysmal Afib, chronic anemia, chronic thrombocytopenia, lower GI bleed, duodenal ulcer, seizures with last seizures 12/2017, L thalamus CVA no residual, pericardial effusion, L lung empyema, spinal stenosis, DDD, chronic cervical and back pain, R eye "lazy", past R ankle and R hand fractures-casted. History of Any Multi-Drug Resistant Organisms: None Reported Past Surgical History: Bladder Surgery, Orthopedic Surgery Additional Past Surgical History / Comment(s): Hemorrhoidectomy, EGDs, colonoscopies, L sided Vats with decortication, pericardial window, hemodialysis fistula, cystoscopies/lithotripsies, bilateral renal stents, double J catheter. Past Anesthesia/Blood Transfusion Reactions: No Reported Reaction Additional Past Anesthesia/Blood Transfusion Reaction / Comment(s): Pt has received blood in past without reaction. Past Psychological History: No Psychological Hx Reported Smoking Status: Current every day smoker Past Alcohol Use History: None Reported Past Drug Use History: None Reported - Past Family History Father Family Medical History: Cancer, CVA/TIA Additional Family Medical History / Comment(s): Father had lymphoma. He had a CVA Mother Family Medical History: CVA/TIA Additional Family Medical History / Comment(s): Mother had a CVA. General Exam - General Exam Comments Initial Comments: Constitutional: NAD, AOX3, Pt has pleasant affect. HEENT: NC/AT, trachea midline, neck supple, no lymphadenopathy. Posterior pharynx non erythematous, without exudates. External ears appear normal, without discharge. Mucous membranes moist. Eyes PERRLA, EOM intact. There is no scleral icterus. No pallor noted. Cardiopulmonary: RRR, no murmurs, rubs or gallops, no JVD noted. Lungs CTAB in anterior and posterior kent. No peripheral edema. Abdominal exam: Abdomen soft and non-distended. Abdomen non-tender to palpation in all 4 quadrants. Bowel sounds active in LLQ. No hepatosplenomegaly. No ecchymosis Neuro: CN II-XII grossly intact. No nuchal rigidity. No raccon eyes, no barton sign, no hemotympanum. No cervical spinal tenderness. MSK: No posterior calf tenderness bilaterally, homans sign negative bilaterally. Posterior tibialis and radial pulse +2 bilaterally. Sensation intact in upper and lower extremities. Full active ROM in upper and lower extremities, 5/5 stregnth. Limitations: no limitations Course Vital Signs 02/05/20 02/05/20 15:28 17:40 Temperature 98 F 98.7 F Pulse Rate 76 79 Respiratory 16 18 Rate Blood Pressure 188/88 184/102 O2 Sat by Pulse 96 95 Oximetry Medical Decision Making - Medical Decision Making 49-year-old male patient proceed for evaluation of fever with no other symptoms. Physical exam densely acute pathology. Left investigations revealed patient to be afebrile here. Chest x-ray revealed interstitial edema with developing right greater than left bibasilar acute infiltrate emesis or atelectasis. Patient be treated for pneumonia with renally dosed Levaquin as well as azithromycin. Patient will be discharged with by self quarantined for the next 14 days. Records dialysis patient advised to contact Center beforehand and dialyze a negative pressure room with precautions. Patient will not be tested for coated due to shortage the tests and department protocol. Case discussed with Dr. Feldman. - Lab Data Result diagrams: 02/05/20 16:08 02/05/20 16:08 Lab Results 02/05/20 02/05/20 Range/Units 16:08 16:08 WBC 7.9 (3.8-10.6) k/uL RBC 3.24 L (4.30-5.90) m/uL Hgb 11.5 L (13.0-17.5) gm/dL Hct 34.3 L (39.0-53.0) % MCV 106.0 H (80.0-100.0) fL MCH 35.6 H (25.0-35.0) pg MCHC 33.6 (31.0-37.0) g/dL RDW 15.3 (11.5-15.5) % Plt Count 142 L (150-450) k/uL Neutrophils % 81 % Lymphocytes % 9 % Monocytes % 6 % Eosinophils % 1 % Basophils % 1 % Neutrophils # 6.4 (1.3-7.7) k/uL Lymphocytes # 0.7 L (1.0-4.8) k/uL Monocytes # 0.5 (0-1.0) k/uL Eosinophils # 0.1 (0-0.7) k/uL Basophils # 0.1 (0-0.2) k/uL Macrocytosis Moderate Sodium 139 (137-145) mmol/L Potassium 4.7 (3.5-5.1) mmol/L Chloride 97 L (98-107) mmol/L Carbon Dioxide 31 H (22-30) mmol/L Anion Gap 11 mmol/L BUN 43 H (9-20) mg/dL Creatinine 9.61 H* (0.66-1.25) mg/dL Est GFR (CKD-EPI)AfAm 7 (>60 ml/min/1.73 sqM) Est GFR (CKD-EPI)NonAf 6 (>60 ml/min/1.73 sqM) Glucose 122 H (74-99) mg/dL Calcium 9.3 (8.4-10.2) mg/dL Total Bilirubin 0.9 (0.2-1.3) mg/dL AST 25 (17-59) U/L ALT 15 (4-49) U/L Alkaline Phosphatase 76 (38-126) U/L Total Protein 6.5 (6.3-8.2) g/dL Albumin 4.1 (3.5-5.0) g/dL Disposition Clinical Impression: Community acquired pneumonia Disposition: HOME SELF-CARE Condition: Stable Instructions (If sedation given, give patient instructions): Pneumonia (ED) Additional Instructions: Take medication as directed. With exception of dialysis self isolated for the next 14 days. Ensure that at dialysis you are in the negative pressure room. Call ahead before treatment and explain this to them. Return to ER if condition worsens in any way. Prescriptions: Levofloxacin [Levaquin] 250 mg PO DAILY 4 Days #4 tablet Azithromycin [Zithromax Z-pack] 0 mg PO DIRECTED #6 tab Is patient prescribed a controlled substance at d/c from ED?: No Referrals: Jaylen Holguin MD [Primary Care Provider] - 1-2 days
== END 2020-02-05 18:14 | disposition home or self-care (01) ==
LOC: EC 15:28
DX: J18.9 Pneumonia, unspecified organism (principal); I48.0 Paroxysmal atrial fibrillation; I12.0 Hypertensive chronic kidney disease with stage 5 chronic kidney disease or end stage renal disease; N18.6 End stage renal disease; E78.5 Hyperlipidemia, unspecified; G40.909 Epilepsy, unspecified, not intractable, without status epilepticus; F17.200 Nicotine dependence, unspecified, uncomplicated; Z79.899 Other long term (current) drug therapy; Z86.73 Personal history of transient ischemic attack (TIA), and cerebral infarction without residual deficits; Z99.2 Dependence on renal dialysis
CPT/HCPCS: 36415; 80053; 85025; 71046; 99284; 96374; J0696

== ENCOUNTER 2020-04-08 09:06 | Observation (INO) | payer MEDICARE, BC ==
--- NOTE | 2020-04-08 09:22 | ED ---
SOB HPI - General Source: patient, family, RN notes reviewed Mode of arrival: wheelchair Limitations: no limitations <Chavo Bonds - Last Filed: 04/08/20 10:25> <Shanika Lopez - Last Filed: 04/11/20 23:39> - General Chief Complaint: Shortness of Breath Stated Complaint: SOB/needs dialysis Time Seen by Provider: 04/08/20 09:13 - History of Present Illness Initial Comments: This a 49-year-old male presents emergency Department with chief complaint of shortness of breath. Patient states that he is supposed to go to dialysis today states he did not go because he felt short of breath. Patient states that he fe els that is getting a large amount away but does not weigh himself daily anymore. Patient states that he feels there is fluid on his lungs. He cannot lay flat. Patient denies history of COPD or asthma. He states that he has worsening shortness breath with exertion. He denies any fevers or chills denies productive cough. He states that it feels bloated. His software engineer sales is Dr. Park. (Chavo Bonds) - Related Data Home Medications Medication Instructions Recorded Confirmed Labetalol [Trandate] 200 mg PO BID 09/03/18 04/08/20 Furosemide [Lasix] 80 mg PO BID 06/16/19 04/08/20 Sevelamer [Renvela] 3,200 mg PO AC-TID 06/16/19 04/08/20 Acetaminophen-Codeine 300-30mg 1 tab PO Q8HR PRN 04/08/20 04/08/20 [Tylenol w/codeine #3] Ipratropium-Albuterol Nebulize 3 ml INHALATION RT-QID PRN 04/08/20 04/08/20 [Duoneb 0.5 mg-3 mg/3 ml Soln] Methocarbamol [Robaxin] 750 mg PO TID PRN 04/08/20 04/08/20 Pantoprazole [Protonix] 40 mg PO DAILY 04/08/20 04/08/20 hydrALAZINE HCL [Apresoline] 100 mg PO TID 04/08/20 04/08/20 levETIRAcetam 1,000 mg PO BID 05/22/20 05/22/20 Previous Rx's Medication Instructions Recorded Atorvastatin [Lipitor] 20 mg PO DAILY #30 tablet 07/27/17 amLODIPine [Norvasc] 5 mg PO BID tab 07/27/17 Gabapentin [Neurontin] 100 mg PO BID #60 cap 12/25/17 Acetaminophen Tab [Tylenol] 650 mg PO Q6HR PRN tab 04/09/20 Cefuroxime [Ceftin] 250 mg PO BID 3 Days #10 tab 04/09/20 Nicotine 21Mg/24Hr Patch [Habitrol] 1 patch TRANSDERM DAILY #30 patch 04/09/20 Allergies Allergy/AdvReac Type Severity Reaction Status Date / Time hydromorphone [From Dilaudid] Allergy Hallucinati Verified 04/08/20 11:08 ons morphine Allergy Hallucinati Verified 04/08/20 11:08 ons Review of Systems ROS Other: All systems not noted in ROS Statement are negative. <Chavo Bonds - Last Filed: 04/08/20 10:25> ROS Other: All systems not noted in ROS Statement are negative. <Shanika Lopez - Last Filed: 04/11/20 23:39> ROS Statement: Those systems with pertinent positive or pertinent negative responses have been documented in the HPI. 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 History of Any Multi-Drug Resistant Organisms: None Reported Past Surgical History: Bladder Surgery, Orthopedic Surgery Additional Past Surgical History / Comment(s): Hemorrhoidectomy, EGDs, colonoscopies, L sided Vats with decortication, pericardial window, hemodialysis fistula, cystoscopies/lithotripsies, bilateral renal stents, double J catheter. eye surgery saturday Past Anesthesia/Blood Transfusion Reactions: No Reported Reaction Additional Past Anesthesia/Blood Transfusion Reaction / Comment(s): Pt has received blood in past without reaction. Past Psychological History: No Psychological Hx Reported Smoking Status: Current every day smoker Past Alcohol Use History: None Reported Past Drug Use History: None Reported - Past Family History Father Family Medical History: Cancer, CVA/TIA Additional Family Medical History / Comment(s): Father had lymphoma. He had a CVA Mother Family Medical History: CVA/TIA Additional Family Medical History / Comment(s): Mother had a CVA. <Chavo Bonds - Last Filed: 04/08/20 10:25> General Exam Limitations: no limitations General appearance: alert, in no apparent distress Head exam: Present: atraumatic, normocephalic, normal inspection Eye exam: Present: normal appearance, PERRL, EOMI. Absent: scleral icterus, conjunctival injection, periorbital swelling Neck exam: Present: normal inspection. Absent: tenderness, meningismus, lymphadenopathy Respiratory exam: Present: respiratory distress, rales. Absent: normal lung sounds bilaterally, wheezes, rhonchi, stridor Cardiovascular Exam: Present: regular rate, normal rhythm, normal heart sounds. Absent: systolic murmur, diastolic murmur, rubs, gallop, clicks GI/Abdominal exam: Present: soft, normal bowel sounds. Absent: distended, tenderness, guarding, rebound, rigid Back exam: Absent: CVA tenderness (R), CVA tenderness (L) Neurological exam: Present: alert, oriented X3 Skin exam: Present: warm, dry, intact, normal color. Absent: rash <Chavo Bonds M - Last Filed: 04/08/20 10:25> Course <Chavo Bonds - Last Filed: 04/08/20 10:25> Vital Signs 04/08/20 04/08/20 04/08/20 09:08 09:13 10:13 Temperature 99.3 F Pulse Rate 63 99 Respiratory 18 20 20 Rate Blood Pressure 186/96 151/95 O2 Sat by Pulse 98 95 Oximetry 04/08/20 04/08/20 10:55 10:56 Temperature Pulse Rate 99 99 Respiratory 20 20 Rate Blood Pressure 151/95 151/95 O2 Sat by Pulse 95 95 Oximetry - Reevaluation(s) Reevaluation #1: 04/08/20 10:28 Patient did have some respiratory distress, patient was complaining of dyspnea, was hypoxic 17 1670. Patient was placed on nonrebreather immediately felt better, oxygen saturation did improve. (Chavo Bonds) Medical Decision Making - Lab Data Result diagrams: 04/08/20 09:35 04/08/20 09:35 - EKG Data -: EKG Interpreted by Me <Chavo Bonds - Last Filed: 04/08/20 10:25> - Lab Data Result diagrams: 04/08/20 09:35 04/08/20 09:35 <Shanika Lopez - Last Filed: 04/11/20 23:39> - Medical Decision Making Patient will be admitted to telemetry with need for urgent dialysis, acute pulmonary edema related to end-stage renal disease, acute respiratory distress. Patient's case discussed with admitting physician, consult to nephrology. (Chavo Bonds) I was available for consultation in the emergency department. The history and physical exam were done by the midlevel provider. I was consulted for this patients care. I reviewed the case with the midlevel provider and based on their presentation of the patient, I agree with the assessment, medical decision making and plan of care as documented. Discussed the case with Dr. Bruno who accepted admission of the patient. Chart was dictated using [employer] dictation software. Attempts were made to correct any dictation errors however some typographical errors may persist. Patient was seen during a national state of emergency due to the Covid-19 pandemic. (Shanika Lopez) - Lab Data Lab Results 04/08/20 04/08/20 04/08/20 Range/Units 09:35 09:35 09:35 WBC 12.3 H (3.8-10.6) k/uL RBC 3.15 L (4.30-5.90) m/uL Hgb 11.7 L (13.0-17.5) gm/dL Hct 35.1 L (39.0-53.0) % MCV 111.3 H D (80.0-100.0) fL MCH 37.0 H (25.0-35.0) pg MCHC 33.3 (31.0-37.0) g/dL RDW 15.3 (11.5-15.5) % Plt Count 101 L (150-450) k/uL Neutrophils % 90 % Lymphocytes % 4 % Monocytes % 3 % Eosinophils % 2 % Basophils % 1 % Neutrophils # 11.1 H (1.3-7.7) k/uL Lymphocytes # 0.5 L (1.0-4.8) k/uL Monocytes # 0.4 (0-1.0) k/uL Eosinophils # 0.2 (0-0.7) k/uL Basophils # 0.1 (0-0.2) k/uL Manual Slide Review Performed Macrocytosis Marked A PT 11.1 (9.0-12.0) sec INR 1.1 (<1.2) APTT 26.8 (22.0-30.0) sec Sodium 139 (137-145) mmol/L Potassium 6.8 H* (3.5-5.1) mmol/L Chloride 100 (98-107) mmol/L Carbon Dioxide 22 (22-30) mmol/L Anion Gap 17 mmol/L BUN 58 H (9-20) mg/dL Creatinine 14.71 H* (0.66-1.25) mg/dL Est GFR (CKD-EPI)AfAm 4 (>60 ml/min/1.73 sqM) Est GFR (CKD-EPI)NonAf 3 (>60 ml/min/1.73 sqM) Glucose 90 (74-99) mg/dL Plasma Lactic Acid Tenzin (0.7-2.0) mmol/L Calcium 9.1 (8.4-10.2) mg/dL Magnesium 1.8 (1.6-2.3) mg/dL Total Bilirubin 2.1 H (0.2-1.3) mg/dL AST 24 (17-59) U/L ALT 13 (4-49) U/L Alkaline Phosphatase 78 (38-126) U/L NT-Pro-B Natriuret Pep pg/mL Total Protein 6.9 (6.3-8.2) g/dL Albumin 4.4 (3.5-5.0) g/dL Coronavirus (PCR) (Not Detected) 04/08/20 04/08/20 04/08/20 Range/Units 09:35 09:35 09:35 WBC (3.8-10.6) k/uL RBC (4.30-5.90) m/uL Hgb (13.0-17.5) gm/dL Hct (39.0-53.0) % MCV (80.0-100.0) fL MCH (25.0-35.0) pg MCHC (31.0-37.0) g/dL RDW (11.5-15.5) % Plt Count (150-450) k/uL Neutrophils % % Lymphocytes % % Monocytes % % Eosinophils % % Basophils % % Neutrophils # (1.3-7.7) k/uL Lymphocytes # (1.0-4.8) k/uL Monocytes # (0-1.0) k/uL Eosinophils # (0-0.7) k/uL Basophils # (0-0.2) k/uL Manual Slide Review Macrocytosis PT (9.0-12.0) sec INR (<1.2) APTT (22.0-30.0) sec Sodium (137-145) mmol/L Potassium (3.5-5.1) mmol/L Chloride (98-107) mmol/L Carbon Dioxide (22-30) mmol/L Anion Gap mmol/L BUN (9-20) mg/dL Creatinine (0.66-1.25) mg/dL Est GFR (CKD-EPI)AfAm (>60 ml/min/1.73 sqM) Est GFR (CKD-EPI)NonAf (>60 ml/min/1.73 sqM) Glucose (74-99) mg/dL Plasma Lactic Acid Tenzin 0.8 (0.7-2.0) mmol/L Calcium (8.4-10.2) mg/dL Magnesium (1.6-2.3) mg/dL Total Bilirubin (0.2-1.3) mg/dL AST (17-59) U/L ALT (4-49) U/L Alkaline Phosphatase (38-126) U/L NT-Pro-B Natriuret Pep 73368 pg/mL Total Protein (6.3-8.2) g/dL Albumin (3.5-5.0) g/dL Coronavirus (PCR) Not Detected (Not Detected) - EKG Data EKG Comments: EKG performed at 9:40 normal sinus rhythm rate of 93 MO 154 QRS 98 QT status QTC 386/479 (Chavo Bonds) Critical Care Time Critical Care Time: Yes Total Critical Care Time: 35 <Chavo Bonds - Last Filed: 04/08/20 10:25> Critical Care Time: Total 35 minutes of critical care time he states initially evaluated patient, reviewed past medical history, ordered labs, imaging and EKG. Patient's found to have bilateral pulmonary edema, questionable pneumonia. Patient was given Ro cephin, blood cultures added. Patient does have mild hyperkalemia at 6.8 patient will need urgent dialysis. infectious waste technician was notified, consult to software engineer sales. Case discussed with admitting physician. Patient has chronic renal failure on dialysis with current creatinine 14. (Chavo Bonds) Disposition Time of Disposition: 10:25 <Chavo Bonds - Last Filed: 04/08/20 10:25> <Shanika Lopez - Last Filed: 04/11/20 23:39> Clinical Impression: End stage renal disease on dialysis, Pulmonary edema, Acute respiratory distress Disposition: ADMITTED IP TO THIS HOSP Condition: Critical
[2020-04-08 09:52] LABS: Basophils # (A) 0.1 k/uL (0-0.2); Basophils % (A) 1 %; Eosinophils # (A) 0.2 k/uL (0-0.7); Eosinophils % (A) 2 %; HCT 35.1 % (39.0-53.0); HGB 11.7 gm/dL (13.0-17.5); Lymphocytes # (A) 0.5 k/uL (1.0-4.8); Lymphocytes % (A) 4 %; MCHC 33.3 g/dL (31.0-37.0); Macrocytosis Marked; Mean Platelet Volume 8.2; Monocytes # (A) 0.4 k/uL (0-1.0); Monocytes % (A) 3 %; Neutrophils # (A) 11.1 k/uL (1.3-7.7); Neutrophils % (A) 90 %; Platelet Count 101 k/uL (150-450); RBC 3.15 m/uL (4.30-5.90); RDW 15.3 % (11.5-15.5); WBC 12.3 k/uL (3.8-10.6)
[2020-04-08 09:59] LABS: MCV 111.3 fL (80.0-100.0)
[2020-04-08 10:00] LABS: INR 1.1 (<1.2); Partial Thromboplastin Time 26.8 sec (22.0-30.0); Prothrombin Time 11.1 sec (9.0-12.0)
--- NOTE | 2020-04-08 10:03 | XR ---
EXAMINATION TYPE: XR chest 1V portable DATE OF EXAM: 04/08/2020 COMPARISON: 02/05/2020 INDICATION: Short of breath TECHNIQUE: Single frontal view of the chest is obtained. FINDINGS: The heart size is moderately prominent. The pulmonary vasculature is prominent. Diffuse patchy infiltrates are present especially within the periphery of the right lung. Findings ar en't interval finding. Correlate for pneumonia. Atypical pneumonia should be considered. Pulmonary ed bertha would be within the differential. IMPRESSION: 1. Patchy bilateral mid to lower lung field peripheral infiltrates greater at the right mid to lower lung field. Correlate for pneumonia, atypical pneumonia, and pulmonary edema. Follow-up is recommende d.
[2020-04-08 10:04] LABS: Albumin 4.4 g/dL (3.5-5.0); Calcium 9.1 mg/dL (8.4-10.2); Magnesium 1.8 mg/dL (1.6-2.3); Total Bilirubin 2.1 mg/dL (0.2-1.3); Total Protein 6.9 g/dL (6.3-8.2)
[2020-04-08] MEDS ORDERED: cefTRIAXone IN SWFI 1,000 MG/10 ML SYRINGE IVP STA (10:05)
[2020-04-08 10:19] LABS: Potassium 6.8 mmol/L (3.5-5.1)
[2020-04-08] MEDS ORDERED: ACETAMINOPHEN TAB 325 MG TAB PO PRN (10:29)
[2020-04-08] MEDS ORDERED: NALOXONE 0.4 MG/ML 1 ML VIAL IV PRN (10:29)
[2020-04-08] MEDS ORDERED: IPRATROPIUM-ALBUTEROL 3 ML NEB INHALATION PRN (11:39)
[2020-04-08] MEDS ORDERED: LABETALOL 200 MG TAB PO SCH (11:45)
[2020-04-08] MEDS ORDERED: PANTOPRAZOLE 40 MG TABLET PO SCH (11:45)
--- NOTE | 2020-04-08 11:54 | P.HPIM ---
History of Present Illness H&P Date: 04/08/20 This is a 49-year-old male patient of Dr. Holguin with past medical history of end-stage renal disease secondary to kidney stones on hemodialysis for 10 years 3 times weekly- Mo, We, Fr, hypertension, hypertensive cardiovascular disease, seizure disorder, left thalamus stroke, previous admissi on for acute hypoxic respiratory failure secondary to fluid overload from missing dialysis treatments requiring mechanical ventilation, history of empyema status post VATS and pericardial window, history of chronic thrombocytopenia, tobacco use and dependence-continues to be an active smoker, paroxysmal atrial fibrillation in February 2018. Patient complains of some difficulty breathing and feeling that he has to much fluid. Patient has had increasing difficulty breathing worse with exertion, orthopnea. He denies any cough or sputum production. Patient complains of feeling bloated. He has been feeling this way for 1 day. He does not know if his weight increased. Patient was scheduled for dialysis today but due to significant shortness of breath, patient came into the hospital for evaluation. Patient came into [facility] emergency center for evaluation found to have temperature 99.3, heart rate 63, respiratory rate 18, blood pressure 186/96 and pulse ox 98 % on room air. EKG sinus rhythm with no acute ST-T wave changes. WBC was 12.3, hemoglobin 11.7, platelet count 101. Sodium 139, potassium 6.8, chloride 100, CO2 22, BUN 58, creatinine 14.71, blood sugar 90. Total bilirubin 2.1, liver function tests normal. Lactic acid 0.8, proBNP 74,900. Chest x-ray reveals patchy bilateral mid to lower lung field peripheral infiltrates greater on the right mid to lower lung field. Correlate for pneumonia, atypical pneumonia and pulmonary edema. extensive pneumonia on the right side. No heart failure seen. Consult with nephrology and patient admitted. COVID-19 testing is pending. Review of Systems Constitutional: Denies chills, Denies fatigue, Denies fever, Denies lethargy, Denies malaise, Reports poor appetite, Denies weakness, Denies weight loss Eyes: denies blurred vision, denies pain Ears, nose, mouth and throat: Denies dysphagia, Denies headache, Denies nasal congestion, Denies nasal discharge, Denies sore throat, Denies vertigo Cardiovascular: Reports dyspnea on exertion, Reports shortness of breath, Denies chest pain, Denies leg edema, Denies lightheadedness, Denies syncope, reports orthopnea. Respiratory: Denies cough with sputum, Reports dyspnea, Denies excessive sputum, Denies hemoptysis, Denies respiratory infections, Denies wheezing, Denies cough, Denies home oxygen Gastrointestinal: Denies abdominal pain, Denies diarrhea, Denies nausea, Denies vomiting Genitourinary: Denies dysuria, Denies urinary retention Musculoskeletal: Denies frequent falls, Denies gait dysfunction, Denies myalgias Integumentary: Denies pruritus, Denies rash, Denies wounds Neurological: Denies change in mentation, Denies change in speech, Denies numbness, Denies weakness Psychiatric: Denies anxiety, Denies depression Endocrine: Denies fatigue, Denies weight change Past Medical History Past Medical History: Atrial Fibrillation, Blood Disorder, CVA/TIA, Eye Disorder, GI Bleed, Hyperlipidemia, Hypertension, Renal Disease, Seizure Disorder Additional Past Medical History / Comment(s): End-stage renal disease on hemodialysis schedule of Saturday, and Saturday with last dialysis 10/20/18, urolithiasis/nephrolithiasis, acute hypoxic respiratory failure after missed dialysis, paroxysmal Afib, chronic anemia, chronic thrombocytopenia, lower GI bleed, duodenal ulcer, seizures with last seizures 12/2017, 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 History of Any Multi-Drug Resistant Organisms: None Reported Past Surgical History: Bladder Surgery, Orthopedic Surgery Additional Past Surgical History / Comment(s): Hemorrhoidectomy, EGDs, colonoscopies, L sided Vats with decortication, pericardial window, hemodialysis fistula, cystoscopies/lithotripsies, bilateral renal stents, double J catheter. eye surgery saturday Past Anesthesia/Blood Transfusion Reactions: No Reported Reaction Additional Past Anesthesia/Blood Transfusion Reaction / Comment(s): Pt has received blood in past without reaction. Past Psychological History: No Psychological Hx Reported Smoking Status: Current every day smoker Past Alcohol Use History: None Reported Additional Past Alcohol Use History / Comment(s): Patient is a smoker one pack per day since he was 17 years of age. He denies any marijuana, illicit drug use, alcohol use, vaping. Past Drug Use History: None Reported - Past Family History Father Family Medical History: Cancer, CVA/TIA Additional Family Medical History / Comment(s): Father had lymphoma. He had a CVA Mother Family Medical History: CVA/TIA Additional Family Medical History / Comment(s): Mother had a CVA. Medications and Allergies Home Medications Medication Instructions Recorded Confirmed Type Atorvastatin [Lipitor] 20 mg PO DAILY #30 tablet 07/27/17 04/08/20 Rx amLODIPine [Norvasc] 5 mg PO BID tab 07/27/17 04/08/20 Rx Gabapentin [Neurontin] 100 mg PO BID #60 cap 12/25/17 04/08/20 Rx Labetalol [Trandate] 400 mg PO BID 09/03/18 04/08/20 History Furosemide [Lasix] 80 mg PO BID 06/16/19 04/08/20 History Sevelamer [Renvela] 3,200 mg PO AC-TID 06/16/19 04/08/20 History Ipratropium-Albuterol Nebulize 3 ml INHALATION RT-QID PRN 04/08/20 04/08/20 History [Duoneb 0.5 mg-3 mg/3 ml Soln] Pantoprazole [Protonix] 40 mg PO DAILY 04/08/20 04/08/20 History hydrALAZINE HCL [Apresoline] 100 mg PO TID 04/08/20 04/08/20 History levETIRAcetam 1,000 mg PO BID 04/08/20 04/08/20 History Allergies Allergy/AdvReac Type Severity Reaction Status Date / Time hydromorphone [From Dilaudid] Allergy Hallucinati Verified 04/08/20 11:08 ons morphine Allergy Hallucinati Verified 04/08/20 11:08 ons Physical Exam Vitals: Vital Signs Temp Pulse Resp BP Pulse Ox 04/08/20 10:13 99 20 151/95 95 04/08/20 09:13 20 04/08/20 09:08 99.3 F 63 18 186/96 98 Intake and Output 04/07/20 04/08/20 04/08/20 22:59 06:59 14:59 Other: Weight 63.503 kg Gen: This is a 49-year-old male patient resting in ER stretcher and appears to be fatigued. No acute respiratory distress is noted. HEENT: Head is atraumatic, normocephalic. Pupils equal, round. Sclerae is anicteric. NECK: Supple. No JVD. No lymphadenopathy. No thyromegaly. LUNGS: Expiratory wheeze bilaterally. No accessory muscle usage. No intercostal retractions. Occasional cough noted. HEART: Regular rate and rhythm. Systolic murmur. ABDOMEN: Soft. Bowel sounds are present. No masses. No tenderness. EXTREMITIES: No pedal edema. No calf tenderness. No lower extremity wounds. NEUROLOGICAL: Patient is awake, alert and oriented x3. Cranial nerves 2 through 12 are grossly intact. Results CBC & Chem 7: 04/08/20 09:35 04/08/20 09:35 Labs: Abnormal Lab Results - Last 24 Hours (Table) 04/08/20 04/08/20 Range/Units 09:35 09:35 WBC 12.3 H (3.8-10.6) k/uL RBC 3.15 L (4.30-5.90) m/uL Hgb 11.7 L (13.0-17.5) gm/dL Hct 35.1 L (39.0-53.0) % MCV 111.3 H D (80.0-100.0) fL MCH 37.0 H (25.0-35.0) pg Plt Count 101 L (150-450) k/uL Neutrophils # 11.1 H (1.3-7.7) k/uL Lymphocytes # 0.5 L (1.0-4.8) k/uL Macrocytosis Marked A Potassium 6.8 H* (3.5-5.1) mmol/L BUN 58 H (9-20) mg/dL Creatinine 14.71 H* (0.66-1.25) mg/dL Total Bilirubin 2.1 H (0.2-1.3) mg/dL Thrombosis Risk Factor Assmnt - DVT/VTE Prophylaxis DVT/VTE Prophylaxis: Pharmacologic Prophylaxis ordered Assessment and Plan Plan: 1. Acute respiratory ditress secondary to fluid overload requiring HD and possible pneumonia not ruled out. Continue Rocephin. Continue DuoNeb treatments 4 times daily as needed. 2. Hypertensive urgency. Resume hydralazine 100 mg twice daily, labetalol 400 mg twice daily, Lasix 80 mg twice daily, Norvasc 5 mg twice daily. 3. End-stage renal disease on hemodialysis Saturday and Saturday. Consult with Dr. Park for dialysis. Continue lasix 80 mg bid. 4. History of anemia of chronic disease with baseline hemoglobin of 8. Stable. 5. Hyperphosphatemia. Continue Renvela 3200 mg 3 times daily. 6. Hypertension, hypertensive cardiovascular disease. Continue as above. 7. History of seizure disorder. Continue Keppra 1000 mg twice daily. 8. History of empyema status post VATS and pericardial window. 9. History of left thalamus stroke. Continue Lipitor 20 mg daily for secondary prevention. 10. Tobacco use and dependence. Nicotine patch. 11. Chronic thrombocytopenia. Currently stable. 12. DVT prophylaxis. KP hose and SCDs. 13. GI prophylaxis. Protonix 14. CODE STATUS: Full code. 15. COVID-19 testing in process. Patient will be admitted to the hospital for a minimum of 2 night stay. Discharge plan: Return home Impression and plan of care have been directed as dictated by the signing physician. Doretha Brumfield nurse practitioner acting as scribe for signing physician.
[2020-04-08] MEDS: FUROSEMIDE 80 MG TAB PO SCH ×2 (12:14→21:26)
[2020-04-08] MEDS: hydrALAZINE HCL 50 MG TAB PO SCH ×3 (12:15→21:26)
[2020-04-08] MEDS: NICOTINE 21MG/24HR PATCH TRANSDERM SCH (12:15)
[2020-04-08] MEDS: levETIRAcetam 500 MG TAB PO SCH ×2 (12:23→21:25)
[2020-04-08] MEDS: amLODIPine 5 MG TAB PO SCH ×2 (13:15→21:26)
[2020-04-08] MEDS: GABAPENTIN 100 MG CAP PO SCH ×2 (13:16→21:26)
[2020-04-08] MEDS ORDERED: METHOCARBAMOL 750 MG TAB PO PRN (13:19)
[2020-04-08] MEDS ORDERED: Acetaminophen-Codeine 300-30mg TAB PO PRN (13:19)
[2020-04-08] MEDS ORDERED: ARTIFICIAL TEARS OINTMENT 3.5 GM TUBE BOTH EYES PRN (13:24)
[2020-04-08] MEDS: SEVELAMER 800 MG TAB PO SCH ×2 (15:28→17:37)
[2020-04-08] MEDS ORDERED: PANTOPRAZOLE 40 MG/10 ML VIAL IVP ONE (16:51)
[2020-04-08] MEDS: LABETALOL 200 MG TAB PO SCH (21:26)
[2020-04-09 05:09] VITALS: PULSE 71; TEMP 98.8
[2020-04-09] MEDS: SEVELAMER 800 MG TAB PO SCH ×2 (07:07→12:16)
[2020-04-09] MEDS ORDERED: PANTOPRAZOLE 40 MG TABLET PO SCH (07:30)
[2020-04-09] MEDS ORDERED: ATORVASTATIN 20 MG TAB PO SCH (09:00)
[2020-04-09] MEDS ORDERED: FOLIC ACID 1 MG TAB PO SCH (09:00)
[2020-04-09] MEDS ORDERED: PANTOPRAZOLE 40 MG/10 ML VIAL IVP SCH (09:00)
[2020-04-09 10:58] VITALS: BP 141/80; RESP 16
--- NOTE | 2020-04-09 11:13 | P.NPCON ---
History of Present Illness - Reason for Consult end stage renal disease - History of Present Illness Reason for consultation: End-stage renal disease History of present illness: Patient is a 49-year-old male seen in renal consultation for end-stage renal disease. He is maintained on hemodialysis on Saturday schedule via AV fistula. Patient states he went hemodialysis on Saturday but his access infiltrated and therefore he did not receive hemodialysis. Patient states he became progressively more short of breath and came to the hospital yesterday. He was dialyzed in the hospital with 3 L ultrafiltration. He's currently seen while undergoing another treatment of hemodialysis. Overall feels better. Feels tired. No chest pain or shortness of breath. No vomiting or diarrhea. No fever or chills. No cough. Coronavirus PCR negative. Patient's potassium level was high at 6.8 but expect improvement post dialysis. Patient has been missing about one treatment of hemodialysis weekly for the last few weeks. Vital signs are stable. General: The patient appeared well nourished and normally developed. HEENT: Head exam is unremarkable. Neck is without jugular venous distension. LUNGS: Lungs are clear to auscultation and percussion. Breath sounds decreased. HEART: Rate and Rhythm are regular. ABDOMEN: Abdominal exam reveals normal bowel sounds. Non-tender and non-distend ed. EXTREMITITES: No clubbing, cyanosis, or edema. 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 eye injection with steroid on 04/04 for eye "stroke" Past Anesthesia/Blood Transfusion Reactions: No Reported Reaction Additional Past Anesthesia/Blood Transfusion Reaction / Comment(s): Pt has received blood in past without reaction. Past Psychological History: No Psychological Hx Reported Additional Psychological History / Comment(s): Pt resides with his spouse of 17 yrs. He drives rarely. His spouse takes him to [employer] or his sister does. He is otherwise independent. Smoking Status: Current every day smoker Past Alcohol Use History: None Reported Additional Past Alcohol Use History / Comment(s): Patient is a smoker one pack per day since he was 17 years of age. He denies any marijuana, illicit drug use, alcohol use, vaping. Past Drug Use History: None Reported - Past Family History Father Family Medical History: Cancer, CVA/TIA Additional Family Medical History / Comment(s): Father had lymphoma. He had a CVA Mother Family Medical History: CVA/TIA Additional Family Medical History / Comment(s): Mother had a CVA. Medications and Allergies Home Medications Medication Instructions Recorded Confirmed Type Atorvastatin [Lipitor] 20 mg PO DAILY #30 tablet 07/27/17 04/08/20 Rx amLODIPine [Norvasc] 5 mg PO BID tab 07/27/17 04/08/20 Rx Gabapentin [Neurontin] 100 mg PO BID #60 cap 12/25/17 04/08/20 Rx Labetalol [Trandate] 200 mg PO BID 09/03/18 04/08/20 History Furosemide [Lasix] 80 mg PO BID 06/16/19 04/08/20 History Sevelamer [Renvela] 3,200 mg PO AC-TID 06/16/19 04/08/20 History Acetaminophen-Codeine 300-30mg 1 tab PO Q8HR PRN 04/08/20 04/08/20 History [Tylenol w/codeine #3] Ipratropium-Albuterol Nebulize 3 ml INHALATION RT-QID PRN 04/08/20 04/08/20 History [Duoneb 0.5 mg-3 mg/3 ml Soln] Methocarbamol [Robaxin] 750 mg PO TID PRN 04/08/20 04/08/20 History Pantoprazole [Protonix] 40 mg PO DAILY 04/08/20 04/08/20 History hydrALAZINE HCL [Apresoline] 100 mg PO TID 04/08/20 04/08/20 History levETIRAcetam 1,000 mg PO BID 04/08/20 04/08/20 History Allergies Allergy/AdvReac Type Severity Reaction Status Date / Time hydromorphone [From Dilaudid] Allergy Hallucinati Verified 04/08/20 11:08 ons morphine Allergy Hallucinati Verified 04/08/20 11:08 ons Physical Exam Vitals: Vital Signs Temp Pulse Resp BP Pulse Ox 04/09/20 08:00 70 14 141/80 04/09/20 04:00 98.8 F 71 18 161/76 98 04/09/20 00:00 98.6 F 73 20 135/87 97 04/08/20 20:00 98.7 F 80 20 155/93 98 04/08/20 16:00 20 04/08/20 15:46 98.5 F 82 20 160/92 99 04/08/20 14:52 98.0 F 73 20 187/84 04/08/20 12:00 20 04/08/20 11:47 98.1 F 84 20 166/86 95 Intake and Output 04/08/20 04/09/20 04/09/20 22:59 06:59 14:59 Intake Total 300 358 Balance 300 358 Intake: Oral 300 358 Other: Voiding Method Toilet Toilet # Voids 0 Weight 72.5 kg Results - Lab Results Most recent lab results Calcium 9.1 mg/dL (8.4-10.2) 04/08/20 09:35 Magnesium 1.8 mg/dL (1.6-2.3) 04/08/20 09:35 04/08/20 09:35 04/08/20 09:35 Assessment and Plan Plan: Assessment: 1. End-stage renal disease maintained on hemodialysis on Saturday schedule. 2. Hyperkalemia secondary to chronic kidney disease and missed hemodialysis treatment. 3. Hypertension with chronic kidney disease. Partially volume sensitive. 4. Chronic kidney disease mineral bone disease maintained on Renvela. 5. Volume overload. Improved post ultrafiltration. Plan: Currently seen while undergoing hemodialysis. Next treatment on Saturday. Maintain home antihypertensives. Strongly advised patient to be compliant with his hemodialysis treatments outpatient and to take his meds as prescribed. Thank you for the consultation. I will continue to follow the patient with you during his hospital stay.
[2020-04-09] MEDS: hydrALAZINE HCL 50 MG TAB PO SCH (12:10)
[2020-04-09] MEDS: GABAPENTIN 100 MG CAP PO SCH (12:10)
[2020-04-09] MEDS: amLODIPine 5 MG TAB PO SCH (12:11)
[2020-04-09] MEDS: levETIRAcetam 500 MG TAB PO SCH (12:11)
[2020-04-09] MEDS: FUROSEMIDE 80 MG TAB PO SCH (12:11)
[2020-04-09] MEDS: LABETALOL 200 MG TAB PO SCH (12:11)
[2020-04-09] MEDS: NICOTINE 21MG/24HR PATCH TRANSDERM SCH (12:12)
== END 2020-04-09 12:56 | disposition home or self-care (01) ==
LOC: EC 09:06 → 3SCARD 10:27 → INTOOBSV 10:27
PROVIDERS: ADMIT Internal Medicine Geriatric Medicine; ATTEND Internal Medicine Geriatric Medicine
DX: I13.11 Hypertensive heart and chronic kidney disease without heart failure, with stage 5 chronic kidney disease, or end stage renal disease (principal); N18.6 End stage renal disease; D63.1 Anemia in chronic kidney disease; R06.03 Acute respiratory distress; D69.6 Thrombocytopenia, unspecified; E78.5 Hyperlipidemia, unspecified; E83.39 Other disorders of phosphorus metabolism; E87.5 Hyperkalemia; F17.200 Nicotine dependence, unspecified, uncomplicated; G40.909 Epilepsy, unspecified, not intractable, without status epilepticus; I16.0 Hypertensive urgency; I48.0 Paroxysmal atrial fibrillation; J81.0 Acute pulmonary edema; N25.0 Renal osteodystrophy; Z79.899 Other long term (current) drug therapy; Z80.7 Family history of other malignant neoplasms of lymphoid, hematopoietic and related tissues; Z82.3 Family history of stroke; Z86.73 Personal history of transient ischemic attack (TIA), and cerebral infarction without residual deficits; Z87.442 Personal history of urinary calculi; Z99.2 Dependence on renal dialysis; Z03.818 Encounter for observation for suspected exposure to other biological agents ruled out; Z88.5 Allergy status to narcotic agent
CPT/HCPCS: 90935; 96374; 99291; 36415; 93005; 83880; 80053; 83605; 83735; 85025; 85610; 85730; 87040; 87635; 71045; G0257 ×2; G0378 ×2; J0696

== ENCOUNTER 2020-05-30 18:28 | Inpatient (IN) | payer MEDICARE, BC ==
[2020-05-30] MEDS ORDERED: DEXAMETHASONE SOD PHOSPHATE 10 MG/ML 1 ML VIAL IV STA (19:18)
[2020-05-30] MEDS ORDERED: SODIUM CHLORIDE 0.9% 1,000 ML IV STA (19:18)
[2020-05-30] MEDS ORDERED: LIDOCAINE 5% PATCH TOPICAL STA (19:18)
[2020-05-30] MEDS ORDERED: KETOROLAC 30 MG/ML 1 ML VIAL IVP STA (19:20)
--- NOTE | 2020-05-30 19:23 | ED ---
Back Pain HPI - General Chief Complaint: Back Pain/Injury Stated Complaint: Back pain Time Seen by Provider: 05/30/20 18:57 Source: patient, family, RN notes reviewed, old records reviewed Limitations: physical limitation - History of Present Illness Initial Comments: This is a 48-year-old male DF for evaluation patient to the ER for evaluation patient Taya for evaluation of severe back pain acute on chronic back pain and received dialysis today. Patient has had persistent back pain ever since he got there injections in his neck a few days ago. Pain has been persistent. No new traumas no fevers. Patient states he feels weak and fatigued does want to sleep MD Complaint: back pain, other (Patient did receive epidural injections in his neck 6 days ago) Similar Symptoms Previously: Yes Place: home Radiation: none Severity: moderate (Weakness) Severity scale (1-10): 7 Consistency: intermittent Improves With: immobilization Worsens With: movement Associated Symptoms: weakness - Related Data Home Medications Medication Instructions Recorded Confirmed Labetalol [Trandate] 100 mg PO BID@0700,1700 09/03/18 05/30/20 Furosemide [Lasix] 80 mg PO DAILY@69906/16/19 05/30/20 Sevelamer [Renvela] 3,200 mg PO AC-TID 06/16/19 05/30/20 Acetaminophen-Codeine 300-30mg 1 tab PO Q8HR PRN 04/08/20 05/30/20 [Tylenol w/codeine #3] Ipratropium-Albuterol Nebulize 3 ml INHALATION RT-QID PRN 04/08/20 05/30/20 [Duoneb 0.5 mg-3 mg/3 ml Soln] Methocarbamol [Robaxin] 750 mg PO TID@0700,1200,1700 04/08/20 05/30/20 Pantoprazole [Protonix] 40 mg PO DAILY@00 04/08/20 05/30/20 hydrALAZINE HCL [Apresoline] 100 mg PO TID@0700,1200,1700 04/08/20 05/30/20 levETIRAcetam 1,000 mg PO BID@0700,1700 04/08/20 05/30/20 Atorvastatin [Lipitor] 20 mg PO DAILY@0705/30/20 05/30/20 Gabapentin [Neurontin] 100 mg PO BID@0700,1700 05/30/20 05/30/20 Nicotine 21Mg/24Hr Patch [Habitrol] 1 patch TRANSDERM DAILY@0700 05/30/20 05/30/20 Sevelamer Carbonate 1,600 mg PO BID PRN 05/30/20 05/30/20 amLODIPine [Norvasc] 5 mg PO BID@0700,1700 05/30/20 05/30/20 Previous Rx's Medication Instructions Recorded Acetaminophen Tab [Tylenol] 650 mg PO Q6HR PRN tab 04/09/20 Allergies Allergy/AdvReac Type Severity Reaction Status Date / Time hydromorphone [From Dilaudid] Allergy Hallucinati Verified 05/30/20 22:17 ons morphine Allergy Hallucinati Verified 05/30/20 22:17 ons Review of Systems ROS Statement: Those systems with pertinent positive or pertinent negative responses have been documented in the HPI. ROS Other: All systems not noted in ROS Statement are negative. 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 eye injection with steroid on 04/04 for eye "stroke" Past Anesthesia/Blood Transfusion Reactions: No Reported Reaction Additional Past Anesthesia/Blood Transfusion Reaction / Comment(s): Pt has received blood in past without reaction. Past Psychological History: No Psychological Hx Reported Smoking Status: Current every day smoker Past Alcohol Use History: None Reported Past Drug Use History: None Reported - Past Family History Father Family Medical History: Cancer, CVA/TIA Additional Family Medical History / Comment(s): Father had lymphoma. He had a CVA Mother Family Medical History: CVA/TIA Additional Family Medical History / Comment(s): Mother had a CVA. Sister(s) Additional Family Medical History / Comment(s): Patient has 5 sisters one has from an aneurysm in the brain. 2 sisters have history of kidney stones. Patient has one brother that was shot as cause of , he was on the kidney transplant list. Patient has 6 children with no major medical problems. General Exam Limitations: physical limitation General appearance: alert, in no apparent distress Head exam: Present: atraumatic, normocephalic, normal inspection Eye exam: Present: normal appearance, PERRL, EOMI. Absent: scleral icterus, conjunctival injection, periorbital swelling ENT exam: Present: normal exam, mucous membranes moist Neck exam: Present: normal inspection. Absent: tenderness, meningismus, lymphadenopathy Respiratory exam: Present: normal lung sounds bilaterally. Absent: respiratory distress, wheezes, rales, rhonchi, stridor Cardiovascular Exam: Present: regular rate, normal rhythm, normal heart sounds. Absent: systolic murmur, diastolic murmur, rubs, gallop, clicks GI/Abdominal exam: Present: soft, normal bowel sounds. Absent: distended, tenderness, guarding, rebound, rigid Extremities exam: Present: normal inspection, full ROM, normal capillary refill. Absent: tenderness, pedal edema, joint swelling, calf tenderness Back exam: Present: normal inspection Neurological exam: Present: alert, oriented X3, CN II-XII intact Psychiatric exam: Present: normal affect, normal mood Skin exam: Present: warm, dry, intact, normal color. Absent: rash Course Vital Signs 05/30/20 05/30/20 05/30/20 18:35 20:55 22:16 Temperature 97.8 F Pulse Rate 71 79 82 Respiratory 18 18 18 Rate Blood Pressure 125/74 159/84 145/74 O2 Sat by Pulse 96 97 96 Oximetry - Reevaluation(s) Reevaluation #1: 05/30/20 19:22 Medical record is reviewed Patient patient is currently feeling better Patient has improved pain control Patient spoken with regarding low hemoglobin, will transfuse - Consultations Consultation #1: Spoke with Dr riddle agrees to admit patient Medical Decision Making - Medical Decision Making 50 male DF for evaluation persistent weakness. Patient is found to be anemic here in the hospital, also presenting with acute on chronic back pain. Patient given pain control and will be admitted for evaluation of anemia - Lab Data Result diagrams: 05/31/20 10:37 05/31/20 10:37 Lab Results 05/30/20 05/30/20 05/30/20 Range/Units 19:42 19:42 19:42 WBC 6.0 (3.8-10.6) k/uL RBC 1.92 L (4.30-5.90) m/uL Hgb 7.1 L D (13.0-17.5) gm/dL Hct 20.2 L (39.0-53.0) % MCV 105.4 H D (80.0-100.0) fL MCH 36.9 H (25.0-35.0) pg MCHC 35.0 (31.0-37.0) g/dL RDW 15.0 (11.5-15.5) % Plt Count 190 D (150-450) k/uL Neutrophils % 81 % Lymphocytes % 9 % Monocytes % 6 % Eosinophils % 2 % Basophils % 1 % Neutrophils # 4.9 (1.3-7.7) k/uL Lymphocytes # 0.5 L (1.0-4.8) k/uL Monocytes # 0.3 (0-1.0) k/uL Eosinophils # 0.1 (0-0.7) k/uL Basophils # 0.0 (0-0.2) k/uL Macrocytosis Moderate PT 9.5 (9.0-12.0) sec INR 0.9 (<1.2) APTT 21.5 L (22.0-30.0) sec Sodium 130 L (137-145) mmol/L Potassium 3.9 (3.5-5.1) mmol/L Chloride 90 L (98-107) mmol/L Carbon Dioxide 28 (22-30) mmol/L Anion Gap 12 mmol/L BUN 69 H (9-20) mg/dL Creatinine 9.07 H* (0.66-1.25) mg/dL Est GFR (CKD-EPI)AfAm 7 (>60 ml/min/1.73 sqM) Est GFR (CKD-EPI)NonAf 6 (>60 ml/min/1.73 sqM) Glucose 99 (74-99) mg/dL Calcium 8.3 L (8.4-10.2) mg/dL Phosphorus 3.7 (2.5-4.5) mg/dL Magnesium 1.9 (1.6-2.3) mg/dL Total Bilirubin 0.9 (0.2-1.3) mg/dL AST 26 (17-59) U/L ALT 14 (4-49) U/L Alkaline Phosphatase 77 (38-126) U/L Creatine Kinase 253 H (55-170) U/L Troponin I (0.000-0.034) ng/mL NT-Pro-B Natriuret Pep pg/mL Total Protein 5.6 L (6.3-8.2) g/dL Albumin 3.5 (3.5-5.0) g/dL TSH 4.980 H (0.465-4.680) mIU/L 05/30/20 05/30/20 Range/Units 19:42 19:42 WBC (3.8-10.6) k/uL RBC (4.30-5.90) m/uL Hgb (13.0-17.5) gm/dL Hct (39.0-53.0) % MCV (80.0-100.0) fL MCH (25.0-35.0) pg MCHC (31.0-37.0) g/dL RDW (11.5-15.5) % Plt Count (150-450) k/uL Neutrophils % % Lymphocytes % % Monocytes % % Eosinophils % % Basophils % % Neutrophils # (1.3-7.7) k/uL Lymphocytes # (1.0-4.8) k/uL Monocytes # (0-1.0) k/uL Eosinophils # (0-0.7) k/uL Basophils # (0-0.2) k/uL Macrocytosis PT (9.0-12.0) sec INR (<1.2) APTT (22.0-30.0) sec Sodium (137-145) mmol/L Potassium (3.5-5.1) mmol/L Chloride (98-107) mmol/L Carbon Dioxide (22-30) mmol/L Anion Gap mmol/L BUN (9-20) mg/dL Creatinine (0.66-1.25) mg/dL Est GFR (CKD-EPI)AfAm (>60 ml/min/1.73 sqM) Est GFR (CKD-EPI)NonAf (>60 ml/min/1.73 sqM) Glucose (74-99) mg/dL Calcium (8.4-10.2) mg/dL Phosphorus (2.5-4.5) mg/dL Magnesium (1.6-2.3) mg/dL Total Bilirubin (0.2-1.3) mg/dL AST (17-59) U/L ALT (4-49) U/L Alkaline Phosphatase (38-126) U/L Creatine Kinase (55-170) U/L Troponin I 0.017 (0.000-0.034) ng/mL NT-Pro-B Natriuret Pep 85261 pg/mL Total Protein (6.3-8.2) g/dL Albumin (3.5-5.0) g/dL TSH (0.465-4.680) mIU/L - Radiology Data Radiology results: report reviewed (Chest x-rays negative for acute disease), image reviewed Disposition Clinical Impression: Cervical spondylosis, End stage renal disease on dialysis, Anemia, Weakness Disposition: ADMITTED IP TO THIS [facility] Condition: Fair Is patient prescribed a controlled substance at d/c from ED?: No
[2020-05-30 20:07] LABS: Basophils % (A) 1 %; Eosinophils # (A) 0.1 k/uL (0-0.7); Eosinophils % (A) 2 %; HCT 20.2 % (39.0-53.0); Lymphocytes # (A) 0.5 k/uL (1.0-4.8); Lymphocytes % (A) 9 %; MCH 36.9 pg (25.0-35.0); Macrocytosis Moderate; Mean Platelet Volume 7.4; Monocytes # (A) 0.3 k/uL (0-1.0); Monocytes % (A) 6 %; Neutrophils # (A) 4.9 k/uL (1.3-7.7); Neutrophils % (A) 81 %; RBC 1.92 m/uL (4.30-5.90)
[2020-05-30 20:10] LABS: Albumin 3.5 g/dL (3.5-5.0); Calcium 8.3 mg/dL (8.4-10.2); Magnesium 1.9 mg/dL (1.6-2.3); Phosphorus 3.7 mg/dL (2.5-4.5); Potassium 3.9 mmol/L (3.5-5.1); Total Bilirubin 0.9 mg/dL (0.2-1.3); Total Protein 5.6 g/dL (6.3-8.2)
--- NOTE | 2020-05-30 20:12 | XR ---
EXAMINATION TYPE: XR chest 2V DATE OF EXAM: 05/30/2020 COMPARISON: Chest x-ray April 08, 2020 HISTORY: Weakness. TECHNIQUE: Frontal and lateral views of the chest are obtained. FINDINGS: There is no new suspicious focal air space opacity, pleural effusion, or pneumothorax seen . The cardiac silhouette size remains enlarged. The osseous structures are intact. IMPRESSION: Cardiomegaly without acute pulmonary process currently.
[2020-05-30 20:26] LABS: HGB 7.1 gm/dL (13.0-17.5); MCV 105.4 fL (80.0-100.0); Platelet Count 190 k/uL (150-450)
[2020-05-30 20:30] LABS: INR 0.9 (<1.2); Prothrombin Time 9.5 sec (9.0-12.0)
[2020-05-30] MEDS ORDERED: Acetaminophen-Codeine 300-30mg TAB PO PRN (20:38)
[2020-05-30 20:52] LABS: Partial Thromboplastin Time 21.5 sec (22.0-30.0)
[2020-05-31] MEDS ORDERED: ACETAMINOPHEN TAB 325 MG TAB PO PRN (09:24)
[2020-05-31] MEDS ORDERED: Acetaminophen-Codeine 300-30mg TAB PO PRN (09:24)
[2020-05-31] MEDS ORDERED: IPRATROPIUM-ALBUTEROL 3 ML NEB INHALATION PRN (09:24)
[2020-05-31] MEDS ORDERED: SEVELAMER 800 MG TAB PO PRN (09:24)
[2020-05-31] MEDS: METHOCARBAMOL 750 MG TAB PO SCH ×2 (10:08→16:30)
[2020-05-31] MEDS: levETIRAcetam 500 MG TAB PO SCH ×2 (10:08→16:33)
[2020-05-31] MEDS: hydrALAZINE HCL 50 MG TAB PO SCH ×2 (10:08→16:29)
[2020-05-31 11:05] LABS: Basophils % (A) 0 %; Eosinophils % (A) 1 %; HCT 20.2 % (39.0-53.0); Lymphocytes # (A) 0.3 k/uL (1.0-4.8); Lymphocytes % (A) 5 %; MCH 36.4 pg (25.0-35.0); MCHC 34.3 g/dL (31.0-37.0); MCV 106.3 fL (80.0-100.0); Macrocytosis Moderate; Mean Platelet Volume 7.9; Monocytes # (A) 0.3 k/uL (0-1.0); Monocytes % (A) 5 %; Neutrophils # (A) 5.3 k/uL (1.3-7.7); Neutrophils % (A) 89 %; Platelet Count 157 k/uL (150-450); RDW 14.8 % (11.5-15.5); WBC 5.9 k/uL (3.8-10.6)
[2020-05-31 11:15] LABS: Albumin 3.5 g/dL (3.5-5.0); Calcium 8.5 mg/dL (8.4-10.2); Potassium 4.9 mmol/L (3.5-5.1); Total Bilirubin 0.9 mg/dL (0.2-1.3); Total Protein 5.7 g/dL (6.3-8.2)
[2020-05-31 11:23] LABS: HGB 6.9 gm/dL (13.0-17.5)
--- NOTE | 2020-05-31 11:45 | P.NPCON ---
History of Present Illness - Reason for Consult end stage renal disease - History of Present Illness Reason for consultation: End-stage renal disease History of present illness: Patient is a 50-year-old male seen in consultation for end-stage renal disease. He is maintained on hemodialysis on Saturday schedule. Patient states he's been having black colored bowel movements for the last 6 days or so. He also admits to feeling weak and lightheaded at times. Patient has history of GI bleed and has undergone endoscopy in the past. Patient felt the stool was dark due to the foods he's been eating. Patient's hemoglobin was noted to be 7.1 on admission and is 6.9 today. He denies chest pain or shortness of breath. No fever or chills. No cough. Hemodynamically stable. No edema. Last hemodialysis was yesterday. No evidence of fluid overload noted on chest x-ray. No vomiting or diarrhea. Oral intake is fair. No abdominal pain. Vital signs are stable. General: The patient appeared well nourished and normally developed. HEENT: Head exam is unremarkable. Neck is without jugular venous distension. LUNGS: Lungs are clear to auscultation and percussion. Breath sounds decreased. HEART: Rate and Rhythm are regular. ABDOMEN: Soft, nontender. EXTREMITITES: No clubbing, cyanosis, or edema. 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 eye injection with steroid on 04/04 for eye "stroke" Past Anesthesia/Blood Transfusion Reactions: No Reported Reaction Additional Past Anesthesia/Blood Transfusion Reaction / Comment(s): Pt has received blood in past without reaction. Past Psychological History: No Psychological Hx Reported Additional Psychological History / Comment(s): Pt resides with his spouse of 17 yrs. He drives rarely. His spouse takes him to [employer] or his sister does. He is otherwise independent. Smoking Status: Current every day smoker Past Alcohol Use History: None Reported Additional Past Alcohol Use History / Comment(s): Patient is a smoker one pack per day since he was 17 years of age. He denies any marijuana, illicit drug use, alcohol use, vaping. Past Drug Use History: None Reported - Past Family History Father Family Medical History: Cancer, CVA/TIA Additional Family Medical History / Comment(s): Father had lymphoma. He had a CVA Mother Family Medical History: CVA/TIA Additional Family Medical History / Comment(s): Mother had a CVA. Medications and Allergies Home Medications Medication Instructions Recorded Confirmed Type Labetalol [Trandate] 100 mg PO BID@0700,1700 09/03/18 05/30/20 History Furosemide [Lasix] 80 mg PO DAILY@00 06/16/19 05/30/20 History Sevelamer [Renvela] 3,200 mg PO AC-TID 06/16/19 05/30/20 History Acetaminophen-Codeine 300-30mg 1 tab PO Q8HR PRN 04/08/20 05/30/20 History [Tylenol w/codeine #3] Ipratropium-Albuterol Nebulize 3 ml INHALATION RT-QID PRN 04/08/20 05/30/20 History [Duoneb 0.5 mg-3 mg/3 ml Soln] Methocarbamol [Robaxin] 750 mg PO TID@0700,1200,1700 04/08/20 05/30/20 History Pantoprazole [Protonix] 40 mg PO DAILY@0700 04/08/20 05/30/20 History hydrALAZINE HCL [Apresoline] 100 mg PO TID@0700,1200,1700 04/08/20 05/30/20 History levETIRAcetam 1,000 mg PO BID@0700,1700 04/08/20 05/30/20 History Acetaminophen Tab [Tylenol] 650 mg PO Q6HR PRN tab 04/09/20 05/30/20 Rx Atorvastatin [Lipitor] 20 mg PO DAILY@0700 05/30/20 05/30/20 History Gabapentin [Neurontin] 100 mg PO BID@0700,1700 05/30/20 05/30/20 History Nicotine 21Mg/24Hr Patch [Habitrol] 1 patch TRANSDERM DAILY@69905/30/20 05/30/20 History Sevelamer Carbonate 1,600 mg PO BID PRN 05/30/20 05/30/20 History amLODIPine [Norvasc] 5 mg PO BID@0700,1700 05/30/20 05/30/20 History Allergies Allergy/AdvReac Type Severity Reaction Status Date / Time hydromorphone [From Dilaudid] Allergy Hallucinati Verified 05/30/20 22:17 ons morphine Allergy Hallucinati Verified 05/30/20 22:17 ons Physical Exam Vitals: Vital Signs Temp Pulse Pulse Resp BP BP Pulse Ox 05/31/20 05:00 97.0 F L 73 18 157/77 98 05/30/20 22:59 98 F 73 17 149/76 97 05/30/20 22:16 82 18 145/74 96 05/30/20 20:55 79 18 159/84 97 05/30/20 18:35 97.8 F 71 18 125/74 96 Intake and Output 05/30/20 05/31/20 05/31/20 22:59 06:59 14:59 Intake Total 200 Balance 200 Intake: Oral 200 Other: Voiding Method Toilet Toilet Urinal Urinal # Voids 0 Weight 70.307 kg Results - Lab Results Most recent lab results Calcium 8.5 mg/dL (8.4-10.2) 05/31/20 10:37 Phosphorus 3.7 mg/dL (2.5-4.5) 05/30/20 19:42 Magnesium 1.9 mg/dL (1.6-2.3) 05/30/20 19:42 05/31/20 10:37 05/31/20 10:37 Assessment and Plan Plan: Assessment: 1. End-stage renal disease maintained on hemodialysis on Saturday schedule. 2. Acute GI bleed. Hemoglobin 6.9 today. 3. Hypertension with chronic kidney disease. Stable. 4. Hyponatremia secondary to chronic kidney disease. 5. Chronic kidney disease mineral bone disease maintained on Renvela. Plan: Hemodialysis tomorrow. Transfuse 1 unit of packed red cells today. Check iron studies. Add Aranesp. Stool for occult blood pending. Consider GI consultation. Thank you for the consultation. I'll continue to follow the patient with you during his hospital stay.
[2020-05-31] MEDS ORDERED: DARBEPOETIN ALFA 40 MCG/0.4 ML SYRINGE SQ SCH (12:00)
--- NOTE | 2020-05-31 12:12 | P.HPIM ---
History of Present Illness H&P Date: 05/31/20 Chief Complaint: Weakness History of Present Illness This is a 50-year-old male patient of Dr. Holguin with past medical history of end-stage renal disease secondary to kidney stones on hemodialysis for 10 years 3 times weekly- Mo, We, Fr, hypertension, hypertensive cardiovascular disease, seizure disorder, left thalamus stroke, previous admi ssion for acute hypoxic respiratory failure secondary to fluid overload from missing dialysis treatments requiring mechanical ventilation, history of empyema status post VATS and pericardial window, history of chronic thrombocytopenia, tobacco use and dependence-continues to be an active smoker, paroxysmal atrial fibrillation in February 2018. Patient states that he was at dialysis treatment yesterday and developed significant weakness. He has been following with Dr. Perez office and has had injections done in his neck. He states he did not have any loss of consciousness. He denies any use of nonsteroidal anti- inflammatory medications. No abdominal pain, no blood in the stools. No black stools, no vomiting. He is on schedule for dialysis Saturday and he states he did not miss any treatments. Patient continues to be a smoker one pack per day. In October 2018, patient underwent EGD with Dr. Crowe that revealed gastritis and duodenitis with no peptic ulcer disease. No active bleeding. Colonoscopy revealed visible vessel with active bleeding at the dentate line status post Endo Clip placement and cautery with good hemostasis. Patient came into [facility] emergency center for evaluation found to be afebrile, heart rate 79, blood pressure 159/84, pulse ox 97% on room air. WBC 6.0, hemoglobin 7.1, platelet count 190. Sodium 130, potassium 3.9, chloride 90, CO2 28, BUN 69 creatinine 9.07. CK 253, troponin 0.017, proBNP 20,300, TSH 4.980. Patient has been admitted to the MedSurg floor and consult added for nephrology. Review of Systems Constitutional: No fever, no chills, no night sweats. No weight change. Reports weakness, Reports fatigue. No daytime sleepiness. EENT: No headache. No blurred vision or double vision, no loss of vision. No loss of Hearing, no ringing in the ears, no dizziness. No nasal drainage or congestion. No epistaxis. No sore throat. Lungs: No shortness of breath, cough, no sputum production. No wheezing. Cardiovascular: No chest pain, no lower extremity edema. No palpitations. No paroxysmal nocturnal dyspnea. No orthopnea. No lightheadedness or dizziness. No syncopal episodes. Abdominal: No abdominal pain. No nausea, vomiting. No diarrhea. No constipation. No bloody or tarry stools. No loss of appetite. Musculoskeletal: No myalgias. No muscle weakness, no gait dysfunction, no frequent falls. No back pain. Reports neck pain. Integumentary: No wounds, no lesions. No rash or pruritus. No unusual bruising. No change in hair or nails. Neurologic: No aphasia. No facial droop. No change in mentation. No head injury. No headache. No paralysis. No paresthesia. Psychiatric: No depression. No anxiety. No mood swings. Endocrine: No abnormal blood sugars. No weight change. No excessive sweating or thirst. No cold intolerance. Physical Examination Gen: This is a 50-year-old male patient resting in bed and appears to be fatigued. No acute respiratory distress is noted. HEENT: Head is atraumatic, normocephalic. Pupils equal, round. Sclerae is anicteric. NECK: Supple. No JVD. No lymphadenopathy. No thyromegaly. LUNGS: Expiratory wheeze bilaterally. No accessory muscle usage. No intercostal retractions. HEART: Regular rate and rhythm. Systolic murmur. ABDOMEN: Soft. Bowel sounds are present. No masses. No tenderness. EXTREMITIES: No pedal edema. No calf tenderness. No lower extremity wounds. NEUROLOGICAL: Patient is awake, alert and oriented x3. Cranial nerves 2 through 12 are grossly intact. Assessment and Plan 1. Acute weakness most likely secondary to acute GI bleed. Stool for occult blood. Consult with GI. 2. Acute anemia most likely acute GI bleed. Patient is to be transfused 1 unit of packed RBCs. Continue Protonix increased to twice daily. 3. End-stage renal disease on hemodialysis Saturday and Saturday. Consult with Dr. Park for dialysis. Continue lasix 80 mg daily. 4. History of anemia of chronic disease with baseline hemoglobin of 8. 5. Hyperphosphatemia. Continue Renvela 3200 mg 3 times daily. 6. Hypertension, hypertensive cardiovascular disease. Continue amlodipine 5 mg twice daily, hydralazine 100 mg 3 times daily, labetalol 100 mg twice daily. 7. History of seizure disorder. Continue Keppra 1000 mg twice daily. 8. History of empyema status post VATS and pericardial window. 9. History of left thalamus stroke. Continue Lipitor 20 mg daily for secondary prevention. 10. Tobacco use and dependence. Nicotine patch. 11. Chronic thrombocytopenia. Currently stable. 12. DVT prophylaxis. KP hose and SCDs. 13. GI prophylaxis. Protonix 14. CODE STATUS: Full code. 15. COVID-19 testing in process. Patient will be admitted to the hospital for a minimum of 2 night stay. Discharge plan: Return home Impression and plan of care have been directed as dictated by the signing physician. Doretha Brumfield nurse practitioner acting as scribe for signing physician. Past Medical History Past Medical History: Atrial Fibrillation, Blood Disorder, CVA/TIA, Eye Disorder, GI Bleed, Hyperlipidemia, Hypertension, Renal Disease, Seizure Disorder Additional Past Medical History / Comment(s): End-stage renal disease on hemodialysis schedule of Saturday, and Saturday , urolithiasis/nephrolithiasis, acute hypoxic respiratory failure after missed dialysis, paroxysmal Afib, chronic anemia, chronic thrombocytopenia, lower GI b leed, duodenal ulcer, seizures with last seizures 12/2017, 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 eye injection with steroid on 04/04 for eye "stroke" Past Anesthesia/Blood Transfusion Reactions: No Reported Reaction Additional Past Anesthesia/Blood Transfusion Reaction / Comment(s): Pt has received blood in past without reaction. Past Psychological History: No Psychological Hx Reported Additional Psychological History / Comment(s): Pt resides with his spouse of 17 yrs. He drives rarely. His spouse takes him to [employer] or his sister does. He is otherwise independent. Smoking Status: Current every day smoker Past Alcohol Use History: None Reported Additional Past Alcohol Use History / Comment(s): Patient is a smoker one pack per day since he was 17 years of age. He denies any marijuana, illicit drug use, alcohol use, vaping. Past Drug Use History: None Reported - Past Family History Father Family Medical History: Cancer, CVA/TIA Additional Family Medical History / Comment(s): Father at age 57 from complications from asbestos exposure, lymphoma. He had a CVA Mother Family Medical History: CVA/TIA Additional Family Medical History / Comment(s): Mother at age 80 from CVA with history of coronary artery disease. Sister(s) Additional Family Medical History / Comment(s): Patient has 5 sisters one has from an aneurysm in the brain. 2 sisters have history of kidney stones. Patient has one brother that was shot as cause of , he was on the kidney transplant list. Patient has 6 children with no major medical problems. Medications and Allergies Home Medications Medication Instructions Recorded Confirmed Type RX: Labetalol [Trandate] 100 mg PO BID@0700,1700 09/03/18 05/30/20 History RX: Furosemide [Lasix] 80 mg PO DAILY@0700 06/16/19 05/30/20 History RX: Sevelamer [Renvela] 3,200 mg PO AC-TID 06/16/19 05/30/20 History RX: Acetaminophen-Codeine 300-30mg 1 tab PO Q8HR PRN 04/08/20 05/30/20 History [Tylenol w/codeine #3] RX: Ipratropium-Albuterol Nebulize 3 ml INHALATION RT-QID PRN 04/08/20 05/30/20 History [Duoneb 0.5 mg-3 mg/3 ml Soln] RX: Methocarbamol [Robaxin] 750 mg PO TID@0700,1200,1700 04/08/20 05/30/20 History RX: Pantoprazole [Protonix] 40 mg PO DAILY@0700 04/08/20 05/30/20 History RX: hydrALAZINE HCL [Apresoline] 100 mg PO TID@0700,1200,1700 04/08/20 05/30/20 History RX: levETIRAcetam 1,000 mg PO BID@0700,1700 04/08/20 05/30/20 History RX: Acetaminophen Tab [Tylenol] 650 mg PO Q6HR PRN tab 04/09/20 05/30/20 Rx RX: Atorvastatin [Lipitor] 20 mg PO DAILY@0700 05/30/20 05/30/20 History RX: Gabapentin [Neurontin] 100 mg PO BID@0700,1700 05/30/20 05/30/20 History RX: Nicotine 21Mg/24Hr Patch 1 patch TRANSDERM DAILY@0700 05/30/20 05/30/20 History [Habitrol] RX: Sevelamer Carbonate 1,600 mg PO BID PRN 05/30/20 05/30/20 History RX: amLODIPine [Norvasc] 5 mg PO BID@0700,1700 05/30/20 05/30/20 History Allergies Allergy/AdvReac Type Severity Reaction Status Date / Time hydromorphone [From Dilaudid] Allergy Hallucinati Verified 05/30/20 22:17 ons morphine Allergy Hallucinati Verified 05/30/20 22:17 ons Physical Exam Vitals: Vital Signs Temp Pulse Pulse Resp BP BP Pulse Ox 05/31/20 05:00 97.0 F L 73 18 157/77 98 05/30/20 22:59 98 F 73 17 149/76 97 05/30/20 22:16 82 18 145/74 96 05/30/20 20:55 79 18 159/84 97 05/30/20 18:35 97.8 F 71 18 125/74 96 Intake and Output 05/30/20 05/31/20 05/31/20 22:59 06:59 14:59 Intake Total 200 Balance 200 Intake: Oral 200 Other: Voiding Method Toilet Urinal # Voids 0 Weight 70.307 kg Results CBC & Chem 7: 05/31/20 10:37 05/31/20 10:37 Labs: Abnormal Lab Results - Last 24 Hours (Table) 05/30/20 05/30/20 05/30/20 Range/Units 19:42 19:42 19:42 RBC 1.92 L (4.30-5.90) m/uL Hgb 7.1 L D (13.0-17.5) gm/dL Hct 20.2 L (39.0-53.0) % MCV 105.4 H D (80.0-100.0) fL MCH 36.9 H (25.0-35.0) pg Lymphocytes # 0.5 L (1.0-4.8) k/uL APTT 21.5 L (22.0-30.0) sec Sodium 130 L (137-145) mmol/L Chloride 90 L (98-107) mmol/L BUN 69 H (9-20) mg/dL Creatinine 9.07 H* (0.66-1.25) mg/dL Calcium 8.3 L (8.4-10.2) mg/dL Creatine Kinase 253 H (55-170) U/L Total Protein 5.6 L (6.3-8.2) g/dL TSH 4.980 H (0.465-4.680) mIU/L Thrombosis Risk Factor Assmnt - Choose All That Apply Any of the Below Risk Factors Present?: Yes Each Factor Represents 1 point: Age 41-60 years, Obesity (BMI >25) Other Risk Factors: Yes Each Risk Factor Represents 3 Points: Family history of DVT/PE Other congenital or acquired thrombophilia - If yes, enter type in comment: No Thrombosis Risk Factor Assessment Total Risk Factor Score: 5 Thrombosis Risk Factor Assessment Level: High Risk
[2020-05-31] MEDS: SEVELAMER 800 MG TAB PO SCH ×2 (12:27→16:29)
[2020-05-31 15:33] VITALS: RESP 14
[2020-05-31] MEDS ORDERED: amLODIPine 5 MG TAB PO SCH (17:00)
[2020-05-31] MEDS ORDERED: LABETALOL 100 MG TAB PO SCH (17:00)
[2020-05-31] MEDS ORDERED: GABAPENTIN 100 MG CAP PO SCH (17:00)
[2020-05-31] MEDS ORDERED: PANTOPRAZOLE 40 MG TABLET PO SCH (17:30)
[2020-05-31 17:58] VITALS: BP 162/88; PULSE 64; TEMP 97.8
[2020-05-31 18:44] LABS: % Iron Saturation 44.39 (15.00-50.00)
[2020-05-31 19:32] LABS: Ferritin 1691.9 ng/mL (22.0-322.0)
[2020-06-01] MEDS ORDERED: FUROSEMIDE 80 MG TAB PO SCH (07:00)
[2020-06-01] MEDS ORDERED: ATORVASTATIN 20 MG TAB PO SCH (07:00)
[2020-06-01] MEDS ORDERED: NICOTINE 21MG/24HR PATCH TRANSDERM SCH (07:00)
[2020-06-01] MEDS ORDERED: PANTOPRAZOLE 40 MG TABLET PO SCH (07:00)
== END 2020-05-31 18:13 | disposition left against medical advice (07) | DRG 377 ==
LOC: EC 18:28 → 5NMEDONC 20:36
PROVIDERS: ADMIT Internal Medicine Geriatric Medicine; ATTEND Internal Medicine Geriatric Medicine
PROC: 30233N1 Transfusion of Nonautologous Red Blood Cells into Peripheral Vein, Percutaneous Approach (ICD-10-PCS; principal; 2020-05-31)
DX: K92.2 Gastrointestinal hemorrhage, unspecified (principal); N18.6 End stage renal disease; I13.11 Hypertensive heart and chronic kidney disease without heart failure, with stage 5 chronic kidney disease, or end stage renal disease; E87.1 Hypo-osmolality and hyponatremia; G89.29 Other chronic pain; E78.5 Hyperlipidemia, unspecified; D69.6 Thrombocytopenia, unspecified; I48.0 Paroxysmal atrial fibrillation; E83.39 Other disorders of phosphorus metabolism; G40.909 Epilepsy, unspecified, not intractable, without status epilepticus; M47.812 Spondylosis without myelopathy or radiculopathy, cervical region; D63.1 Anemia in chronic kidney disease; F17.210 Nicotine dependence, cigarettes, uncomplicated; N25.0 Renal osteodystrophy; Z99.2 Dependence on renal dialysis; Z87.442 Personal history of urinary calculi; Z79.899 Other long term (current) drug therapy; Z88.5 Allergy status to narcotic agent; Z11.59 Encounter for screening for other viral diseases; Z86.73 Personal history of transient ischemic attack (TIA), and cerebral infarction without residual deficits; Z98.890 Other specified postprocedural states; Z82.49 Family history of ischemic heart disease and other diseases of the circulatory system; Z82.3 Family history of stroke; Z80.7 Family history of other malignant neoplasms of lymphoid, hematopoietic and related tissues; Z80.9 Family history of malignant neoplasm, unspecified; Z84.1 Family history of disorders of kidney and ureter
CPT/HCPCS: 71046; 80053; 82550; 82728; 83540; 83550; 83735; 83880; 84100; 84443; 84484; 85025; 85610; 85730; 86850; 86900; 86901; 86920; 93005; 96361; 96374; 96375; 99285

== ENCOUNTER 2020-06-04 22:06 | Inpatient (IN) | payer MEDICARE, BC ==
[2020-06-04 22:30] LABS: Anisocytosis Slight; Basophils # (A) 0.1 k/uL (0-0.2); Basophils % (A) 1 %; Eosinophils # (A) 0.1 k/uL (0-0.7); Eosinophils % (A) 1 %; Lymphocytes # (A) 0.7 k/uL (1.0-4.8); Lymphocytes % (A) 8 %; MCH 32.2 pg (25.0-35.0); MCHC 33.5 g/dL (31.0-37.0); MCV 96.1 fL (80.0-100.0); Macrocytosis Slight; Mean Platelet Volume 8.5; Monocytes # (A) 0.5 k/uL (0-1.0); Monocytes % (A) 6 %; Neutrophils # (A) 7.1 k/uL (1.3-7.7); Neutrophils % (A) 82 %; Platelet Count 237 k/uL (150-450); RBC 1.53 m/uL (4.30-5.90); RDW 18.1 % (11.5-15.5); WBC 8.6 k/uL (3.8-10.6)
[2020-06-04 22:40] LABS: Albumin 2.8 g/dL (3.5-5.0); Calcium 8.1 mg/dL (8.4-10.2); Potassium 4.6 mmol/L (3.5-5.1); Total Bilirubin 0.5 mg/dL (0.2-1.3); Total Protein 4.4 g/dL (6.3-8.2)
[2020-06-04 22:41] LABS: HCT 14.7 % (39.0-53.0)
[2020-06-04] MEDS ORDERED: PANTOPRAZOLE 40 MG/10 ML VIAL IVP STA (22:57)
--- NOTE | 2020-06-04 23:12 | ED ---
General Adult HPI - General Chief complaint: Abdominal Pain Stated complaint: Abdominal Pain Time Seen by Provider: 06/04/20 22:25 Source: patient, EMS Mode of arrival: EMS Limitations: no limitations - History of Present Illness Initial comments: Dictation was produced using [employer] dictation software. please excuse any grammatical, word or spelling errors. This patient was cared for during a federal and state declared state of emergency secondary to Covid 19 Chief Complaint: 50-year-old male with past medical history of A. fib, GI bleed, dyslipidemia hypertension and peptic ulcer disease presents with hematemesis. History of Present Illness: Patient 50-year-old male patient has been in and out of [facility] and [facility] for anemia. He had multiple endoscopies that showed GI source of bleeding. Patient has had very low hemoglobins. Patient states she was most recently [facility]. He was given multiple transfusions of blood. He had upper and lower endoscopy and showed ulcer disease to the stomach. Patient signed AGAINST MEDICAL ADVICE out of [facility] because he felt like no one was doing anything for him. Patient has history of kidney disease. He gets taluses Saturday was a Saturday. Patient had dialysis on Saturday with full treatment. Patient states that he was given Jell-O by significant other just prior to arrival when he all of a sudden had hematemesis. The ROS documented in this emergency department record has been reviewed and confirmed by me. Those systems with pertinent positive or negative responses have been documented in the HPI. All other systems are other negative and/or noncontributory. PHYSICAL EXAM: General Impression: Alert and oriented x3, not in acute distress, pale HEENT: Normocephalic atraumatic, extra-ocular movements intact, pupils equal and reactive to light bilaterally, mucous membranes moist. Cardiovascular: Heart regular rate and rhythm Chest: Able to complete full sentences, no retractions, no tachypnea Abdomen: abdomen soft, bowel tenderness to palpation to the epigastric area Musculoskeletal: Pulses present and equal in all extremities, no peripheral edema Motor: no focal deficits noted Neurological: CN II-XII grossly intact, no focal motor or sensory deficits noted Skin: Intact with no visualized rashes Psych: Normal affect and mood ED course: 50 y Old male presents with GI bleed. Patient was recently admitted to [facility] and [facility] recently. He supposedly sign out AGAINST MEDICAL ADVICE from both places. All signs upon arrival are within acceptable limits. 8. Labs was ordered by the nurse. Patient was found have a hemoglobin of 5.0. This is to be lower then 4 days ago when he had a 7.0 hemoglobin. Me tabolic panel shows patient's baseline limits. He does have end-stage renal disease. Case was discussed in detail with Dr. Doss of the intensive care unit he recommends that hemoglobin be rechecked and if it is stable and not dropping and patient not showing any worsening signs that he can be admitted to telemetry unit. Repeat hemoglobin was obtained found to be stable at 5.0. Patient raza martinez to be hemodynamically stable. Patient be admitted to telemetry. Discussed patient case with Dr. Mayorga who is willing to accept patients care. EKG interpretation: Ventricular rate 81, normal sinus rhythm,. Interval and 28, QRS 90, QTC 494. No RI prolongation, no QTC prolongation, no ST or T-wave changes noted. EKG compared to 05/30/2020 showing no changes. Overall, this EKG is unremarkable - Related Data Home Medications Medication Instructions Recorded Confirmed Labetalol [Trandate] 100 mg PO BID@0700,1700 09/03/18 05/30/20 Furosemide [Lasix] 80 mg PO DAILY@69906/16/19 05/30/20 Sevelamer [Renvela] 3,200 mg PO AC-TID 06/16/19 05/30/20 Acetaminophen-Codeine 300-30mg 1 tab PO Q8HR PRN 04/08/20 05/30/20 [Tylenol w/codeine #3] Ipratropium-Albuterol Nebulize 3 ml INHALATION RT-QID PRN 04/08/20 05/30/20 [Duoneb 0.5 mg-3 mg/3 ml Soln] Methocarbamol [Robaxin] 750 mg PO TID@0700,1200,1700 04/08/20 05/30/20 Pantoprazole [Protonix] 40 mg PO DAILY@00 04/08/20 05/30/20 hydrALAZINE HCL [Apresoline] 100 mg PO TID@0700,1200,1700 04/08/20 05/30/20 levETIRAcetam 1,000 mg PO BID@0700,1700 04/08/20 05/30/20 Atorvastatin [Lipitor] 20 mg PO DAILY@0700 05/30/20 05/30/20 Gabapentin [Neurontin] 100 mg PO BID@0700,1700 05/30/20 05/30/20 Nicotine 21Mg/24Hr Patch [Habitrol] 1 patch TRANSDERM DAILY@0700 05/30/20 05/30/20 Sevelamer Carbonate 1,600 mg PO BID PRN 05/30/20 05/30/20 amLODIPine [Norvasc] 5 mg PO BID@0700,1700 05/30/20 05/30/20 Previous Rx's Medication Instructions Recorded Acetaminophen Tab [Tylenol] 650 mg PO Q6HR PRN tab 04/09/20 Allergies Allergy/AdvReac Type Severity Reaction Status Date / Time hydromorphone [From Dilaudid] Allergy Hallucinati Verified 05/30/20 22:17 ons morphine Allergy Hallucinati Verified 05/30/20 22:17 ons Review of Systems ROS Statement: Those systems with pertinent positive or pertinent negative responses have been documented in the HPI. ROS Other: All systems not noted in ROS Statement are negative. 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 eye injection with steroid on 04/04 for eye "stroke" Past Anesthesia/Blood Transfusion Reactions: No Reported Reaction Additional Past Anesthesia/Blood Transfusion Reaction / Comment(s): Pt has received blood in past without reaction. Past Psychological History: No Psychological Hx Reported Smoking Status: Current every day smoker Past Alcohol Use History: None Reported Past Drug Use History: None Reported - Past Family History Father Family Medical History: Cancer, CVA/TIA Additional Family Medical History / Comment(s): Father had lymphoma. He had a CVA Mother Family Medical History: CVA/TIA Additional Family Medical History / Comment(s): Mother had a CVA. Sister(s) Additional Family Medical History / Comment(s): Patient has 5 sisters one has from an aneurysm in the brain. 2 sisters have history of kidney stones. Patient has one brother that was shot as cause of , he was on the kidney transplant list. Patient has 6 children with no major medical problems. General Exam Limitations: no limitations Course Vital Signs 06/04/20 06/04/20 06/04/20 22:06 23:40 23:50 Temperature 98.2 F 98.3 F 98.5 F Pulse Rate 86 80 82 Respiratory 18 18 18 Rate Blood Pressure 162/94 154/80 144/77 O2 Sat by Pulse 97 100 100 Oximetry 06/05/20 06/05/20 00:20 01:00 Temperature 98.6 F Pulse Rate 77 78 Respiratory 17 16 Rate Blood Pressure 162/77 170/81 O2 Sat by Pulse 100 100 Oximetry Medical Decision Making - Lab Data Result diagrams: 06/05/20 02:01 06/04/20 22:24 Lab Results 06/04/20 06/04/20 06/04/20 Range/Units 22:15 22:15 22:24 WBC 8.6 (3.8-10.6) k/uL RBC 1.53 L (4.30-5.90) m/uL Hgb 5.0 L* D (13.0-17.5) gm/dL Hct 14.7 L* (39.0-53.0) % MCV 96.1 D (80.0-100.0) fL MCH 32.2 (25.0-35.0) pg MCHC 33.5 (31.0-37.0) g/dL RDW 18.1 H (11.5-15.5) % Plt Count 237 (150-450) k/uL Neutrophils % 82 % Lymphocytes % 8 % Monocytes % 6 % Eosinophils % 1 % Basophils % 1 % Neutrophils # 7.1 (1.3-7.7) k/uL Lymphocytes # 0.7 L (1.0-4.8) k/uL Monocytes # 0.5 (0-1.0) k/uL Eosinophils # 0.1 (0-0.7) k/uL Basophils # 0.1 (0-0.2) k/uL Anisocytosis Slight Macrocytosis Slight PT 12.2 H (9.0-12.0) sec INR 1.2 H (<1.2) APTT 21.5 L (22.0-30.0) sec Sodium (137-145) mmol/L Potassium (3.5-5.1) mmol/L Chloride (98-107) mmol/L Carbon Dioxide (22-30) mmol/L Anion Gap mmol/L BUN (9-20) mg/dL Creatinine (0.66-1.25) mg/dL Est GFR (CKD-EPI)AfAm (>60 ml/min/1.73 sqM) Est GFR (CKD-EPI)NonAf (>60 ml/min/1.73 sqM) Glucose (74-99) mg/dL Plasma Lactic Acid Tenzin (0.7-2.0) mmol/L Calcium (8.4-10.2) mg/dL Total Bilirubin (0.2-1.3) mg/dL AST (17-59) U/L ALT (4-49) U/L Alkaline Phosphatase (38-126) U/L Total Protein (6.3-8.2) g/dL Albumin (3.5-5.0) g/dL Amylase (30-110) U/L Lipase (23-300) U/L Blood Type O Positive Blood Type Recheck O Pos Bld Type Recheck Status No Antibody Screen NEGATIVE Crossmatch See Detail Spec Expiration Date 06/07/2020 - 231406/04/20 06/04/20 06/05/20 Range/Units 22:24 22:24 02:01 WBC 6.7 (3.8-10.6) k/uL RBC 1.56 L (4.30-5.90) m/uL Hgb 5.0 L* (13.0-17.5) gm/dL Hct 15.0 L* (39.0-53.0) % MCV 95.8 (80.0-100.0) fL MCH 31.8 (25.0-35.0) pg MCHC 33.2 (31.0-37.0) g/dL RDW 16.7 H (11.5-15.5) % Plt Count 189 (150-450) k/uL Neutrophils % % Lymphocytes % % Monocytes % % Eosinophils % % Basophils % % Neutrophils # (1.3-7.7) k/uL Lymphocytes # (1.0-4.8) k/uL Monocytes # (0-1.0) k/uL Eosinophils # (0-0.7) k/uL Basophils # (0-0.2) k/uL Anisocytosis Slight Macrocytosis Slight PT (9.0-12.0) sec INR (<1.2) APTT (22.0-30.0) sec Sodium 134 L (137-145) mmol/L Potassium 4.6 (3.5-5.1) mmol/L Chloride 97 L (98-107) mmol/L Carbon Dioxide 22 (22-30) mmol/L Anion Gap 15 mmol/L BUN 147 H* (9-20) mg/dL Creatinine 9.22 H* (0.66-1.25) mg/dL Est GFR (CKD-EPI)AfAm 7 (>60 ml/min/1.73 sqM) Est GFR (CKD-EPI)NonAf 6 (>60 ml/min/1.73 sqM) Glucose 134 H (74-99) mg/dL Plasma Lactic Acid Tenzin 1.0 (0.7-2.0) mmol/L Calcium 8.1 L (8.4-10.2) mg/dL Total Bilirubin 0.5 (0.2-1.3) mg/dL AST 20 (17-59) U/L ALT 14 (4-49) U/L Alkaline Phosphatase 39 (38-126) U/L Total Protein 4.4 L (6.3-8.2) g/dL Albumin 2.8 L (3.5-5.0) g/dL Amylase 44 (30-110) U/L Lipase 116 (23-300) U/L Blood Type Blood Type Recheck Bld Type Recheck Status Antibody Screen Crossmatch Spec Expiration Date Critical Care Time Critical Care Time: Yes Total Critical Care Time: 33 Disposition Clinical Impression: Anemia, GI bleed Disposition: ADMITTED IP TO THIS [facility] Condition: Critical Referrals: Jaylen Holguin MD [Primary Care Provider] - 1-2 days Decision Time: 02:18
[2020-06-05] MEDS ORDERED: LORazepam 2 MG/ML INJ IV STA (00:02)
[2020-06-05 00:43] LABS: INR 1.2 (<1.2); Prothrombin Time 12.2 sec (9.0-12.0)
[2020-06-05 00:44] LABS: Partial Thromboplastin Time 21.5 sec (22.0-30.0)
[2020-06-05 02:07] LABS: Anisocytosis Slight; MCH 31.8 pg (25.0-35.0); MCHC 33.2 g/dL (31.0-37.0); MCV 95.8 fL (80.0-100.0); Macrocytosis Slight; Mean Platelet Volume 8.5; Platelet Count 189 k/uL (150-450); RBC 1.56 m/uL (4.30-5.90); RDW 16.7 % (11.5-15.5); WBC 6.7 k/uL (3.8-10.6)
[2020-06-05] MEDS ORDERED: NALOXONE 0.4 MG/ML 1 ML VIAL IV PRN (02:14)
[2020-06-05 07:42] LABS: Anisocytosis Slight; MCH 32.9 pg (25.0-35.0); MCHC 34.7 g/dL (31.0-37.0); MCV 94.9 fL (80.0-100.0); Mean Platelet Volume 7.9; Platelet Count 204 k/uL (150-450); RDW 16.3 % (11.5-15.5)
[2020-06-05 09:18] LABS: HGB 6.2 gm/dL (13.0-17.5)
[2020-06-05] MEDS: PANTOPRAZOLE 40 MG/10 ML VIAL IVP SCH ×2 (09:24→21:03)
[2020-06-05] MEDS ORDERED: SEVELAMER 800 MG TAB PO PRN (09:38)
[2020-06-05] MEDS ORDERED: ACETAMINOPHEN TAB 325 MG TAB PO PRN (09:38)
[2020-06-05] MEDS ORDERED: FUROSEMIDE 10 MG/ML 4 ML VIAL IV PRN (09:41)
[2020-06-05] MEDS ORDERED: NICOTINE 21MG/24HR PATCH TRANSDERM PRN (09:45)
--- NOTE | 2020-06-05 11:01 | P.HPIM ---
History of Present Illness H&P Date: 06/05/20 History of Present Illness This is a 50-year-old male patient of Dr. Holguin with past medical history of end-stage renal disease secondary to kidney stones on hemodialysis for 10 years 3 times weekly- Mo, We, Fr, hypertension, hypertensive cardiovascular disease, seizure disorder, left thalamus stroke, previous admission for acute hypoxic respiratory failure secondary to fluid overload from missing dialysis treatments requiring mechanical ventilation, history of empyema status post VATS and pericardial window, history of chronic thrombocytopenia, tobacco use and dependence-continues to be an active smoker, paroxysmal atrial fibrillation in February 2018. Patient was admitted on May 30 and signed out AMA on May 31 which time he was treated for acute GI bleed status post transfusion. He has subsequently been admitted to [facility] where he was also treated for acute GI bleed and was transfused. He underwent EGD that did show ulcers in the esophagus, stomach and duodenum. He also had a colonoscopy with polyp removal. Patient signed out AMA from [facility] yesterday. He presented last evening to [facility] for GI bleed with melena emesis. Patient was given Ativan in the emergency center and is sedated this morning but arousable to verbal stimuli. Discussed current condition with patient's at the bedside. Patient continues to smoke a half a pack per day. Patient came into [facility] emergency center for evaluation found to be afebrile, heart rate 80, blood pressure 154/80, pulse ox 100% on 2L. WBC 8.6, hemoglobin 5.0, platelet count 237. Sodium 134, potassium 4.6, ch loride 7, CO2 22, BUN 147 creatinine 9.22. Glucose 134. CK 253. Patient has been admitted to the cardiac stepdown unit and consulted nephrology and GI. Patient has been transfused 2 units packed RBCs with hemoglobin of 6.2. One more unit has been ordered today and second unit to be given with hemodialysis. Review of Systems Constitutional: No fever, no chills, no night sweats. No weight change. Reports weakness, Reports fatigue. Reports daytime sleepiness. EENT: No headache. No blurred vision or double vision, no loss of vision. No loss of Hearing, no ringing in the ears, no dizziness. No nasal drainage or congestion. No epistaxis. No sore throat. Lungs: No shortness of breath, cough, no sputum production. No wheezing. Cardiovascular: No chest pain, no lower extremity edema. No palpitations. No paroxysmal nocturnal dyspnea. No orthopnea. No lightheadedness or dizziness. No syncopal episodes. Abdominal: No abdominal pain. Reports nausea, vomiting. Reports hematemesis. No diarrhea. No constipation. No bloody or tarry stools. Reports loss of appetite. Musculoskeletal: No myalgias. No muscle weakness, no gait dysfunction, no frequent falls. No back pain. Reports neck pain. Integumentary: No wounds, no lesions. No rash or pruritus. No unusual bruising. No change in hair or nails. Neurologic: No aphasia. No facial droop. No change in mentation. No head injury. No headache. No paralysis. No paresthesia. Psychiatric: No depression. No anxiety. No mood swings. Endocrine: No abnormal blood sugars. No weight change. No excessive sweating or thirst. No cold intolerance. Physical Examination Gen: This is a 50-year-old male patient resting in bed and appears to be tired. No acute respiratory distress is noted. Patient's is at bedside. HEENT: Head is atraumatic, normocephalic. Pupils equal, round. Sclerae is anicteric. NECK: Supple. No JVD. No lymphadenopathy. No thyromegaly. LUNGS: Expiratory wheeze bilaterally. No accessory muscle usage. No intercostal retractions. HEART: Regular rate and rhythm. Systolic murmur. ABDOMEN: Soft. Bowel sounds are present. No masses. No tenderness. EXTREMITIES: No pedal edema. No calf tenderness. No lower extremity wounds. NEUROLOGICAL: Patient is awake, alert and oriented x3. Cranial nerves 2 through 12 are grossly intact. Assessment and Plan 1. Acute weakness secondary to acute GI bleed. Consult with GI. 2. Acute blood loss anemia from acute GI bleed. Patient is to be transfused 2 units of packed RBCs. Continue Protonix twice daily. 3. End-stage renal disease on hemodialysis Saturday and Saturday. Consult with Dr. Park for dialysis. Continue lasix 80 mg daily. One more unit has been ordered today and second unit to be given with hemodialysis. 4. History of anemia of chronic disease with baseline hemoglobin of 8. 5. Hyperphosphatemia. Continue Renvela 3200 mg 3 times daily. 6. Hypertension, hypertensive cardiovascular disease. Continue amlodipine 5 mg twice daily, hydralazine 100 mg 3 times daily, labetalol 100 mg twice daily. 7. History of seizure disorder. Continue Keppra 1000 mg twice daily. 8. History of empyema status post VATS and pericardial window. 9. History of left thalamus stroke. Continue Lipitor 20 mg daily for secondary prevention. 10. Tobacco use and dependence. Nicotine patch ordered as needed as patient is denying need at this time. 11. Chronic thrombocytopenia. Currently stable. 12. DVT prophylaxis. KP hose and SCDs. 13. GI prophylaxis. Protonix 14. CODE STATUS: Full code. 15. COVID-19 testing in process. Patient will be admitted to the hospital for a minimum of 2 night stay. Discharge plan: Return home Impression and plan of care have been directed as dictated by the signing physician. Doretha Brumfield nurse practitioner acting as scribe for signing physician. Past Medical History Past Medical History: Atrial Fibrillation, Blood Disorder, CVA/TIA, Eye Di sorder, GI Bleed, Hyperlipidemia, Hypertension, Renal Disease, Seizure Disorder Additional Past Medical History / Comment(s): End-stage renal disease on hemodialysis schedule of Saturday, and Saturday , urolithiasis/nephrolithiasis, acute hypoxic respiratory failure after missed dialysis, paroxysmal Afib, chronic anemia, chronic thrombocytopenia, lower GI bleed, duodenal ulcer, seizures with last seizures 12/2017, L thalamus CVA no residual, pericardial effusion, L lung empyema, spinal stenosis, DDD, chronic cervical and back pain, R eye "lazy", past R ankle and R hand fractures-casted, History of Any Multi-Drug Resistant Organisms: None Reported Past Surgical History: Bladder Surgery, Orthopedic Surgery Additional Past Surgical History / Comment(s): Hemorrhoidectomy, EGDs, colonosc opies, L sided Vats with decortication, pericardial window, hemodialysis fistula, cystoscopies/lithotripsies, bilateral renal stents, double J catheter. eye injection with steroid on 04/04 for eye "stroke" Past Anesthesia/Blood Transfusion Reactions: No Reported Reaction Additional Past Anesthesia/Blood Transfusion Reaction / Comment(s): Pt has rece ived blood in past without reaction. Past Psychological History: No Psychological Hx Reported Additional Psychological History / Comment(s): Pt resides with his spouse of 17 yrs. He drives rarely. His spouse takes him to appts or his sister does. He is otherwise independent. Smoking Status: Current every day smoker Past Alcohol Use History: None Reported Additional Past Alcohol Use History / Comment(s): Patient is a smoker one pack per day since he was 17 years of age. Currently down to half pack per day. He denies any marijuana, illicit drug use, alcohol use, vaping. Past Drug Use History: None Reported - Past Family History Father Family Medical History: Cancer, CVA/TIA Additional Family Medical History / Comment(s): Father had lymphoma. He had a CVA Mother Family Medical History: CVA/TIA Additional Family Medical History / Comment(s): Mother had a CVA. Sister(s) Additional Family Medical History / Comment(s): Patient has 5 sisters one has from an aneurysm in the brain. 2 sisters have history of kidney stones. Patient has one brother that was shot as cause of , he was on the kidney transplant list. Patient has 6 children with no major medical problems. Medications and Allergies Home Medications Medication Instructions Recorded Confirmed Type Labetalol [Trandate] 100 mg PO BID@0700,1700 09/03/18 06/05/20 History Furosemide [Lasix] 80 mg PO DAILY@0700 06/16/19 06/05/20 History Sevelamer [Renvela] 3,200 mg PO AC-TID 06/16/19 06/05/20 History Acetaminophen-Codeine 300-30mg 1 tab PO Q8HR PRN 04/08/20 06/05/20 History [Tylenol w/codeine #3] Ipratropium-Albuterol Nebulize 3 ml INHALATION RT-QID PRN 04/08/20 06/05/20 History [Duoneb 0.5 mg-3 mg/3 ml Soln] Methocarbamol [Robaxin] 750 mg PO TID@0700,1200,1700 PRN 04/08/20 06/05/20 History Pantoprazole [Protonix] 40 mg PO DAILY@0700 04/08/20 06/05/20 History hydrALAZINE HCL [Apresoline] 100 mg PO TID@0700,1200,1700 04/08/20 06/05/20 History levETIRAcetam 1,000 mg PO BID@0700,1700 04/08/20 06/05/20 History Acetaminophen Tab [Tylenol] 650 mg PO Q6HR PRN tab 04/09/20 06/05/20 Rx Atorvastatin [Lipitor] 20 mg PO DAILY@0700 05/30/20 06/05/20 History Gabapentin [Neurontin] 100 mg PO BID@0700,1700 05/30/20 06/05/20 History Sevelamer Carbonate 1,600 mg PO BID PRN 05/30/20 06/05/20 History amLODIPine [Norvasc] 5 mg PO BID@0700,1700 05/30/20 06/05/20 History Allergies Allergy/AdvReac Type Severity Reaction Status Date / Time hydromorphone [From Dilaudid] AdvReac Hallucinati Verified 06/05/20 08:29 ons morphine AdvReac Hallucinati Verified 06/05/20 08:29 ons Physical Exam Vitals: Vital Signs Temp Pulse Pulse Resp BP BP Pulse Ox 06/05/20 07:42 98.8 F 77 18 141/71 100 06/05/20 06:24 99.1 F 91 16 164/74 98 06/05/20 04:00 99.0 F 76 18 165/72 100 06/05/20 03:33 99.4 F 75 18 165/66 06/05/20 03:03 98.6 F 80 18 162/82 100 06/05/20 02:53 98.7 F 76 20 157/66 100 06/05/20 02:36 99.0 F 76 16 165/72 100 06/05/20 02:05 98.7 F 76 20 157/66 100 06/05/20 01:00 78 16 170/81 100 06/05/20 00:20 98.6 F 77 17 162/77 100 06/04/20 23:50 98.5 F 82 18 144/77 100 06/04/20 23:40 98.3 F 80 18 154/80 100 06/04/20 22:06 98.2 F 86 18 162/94 97 Intake and Output 06/04/20 06/05/20 06/05/20 22:59 06:59 14:59 Intake Total 930 Balance 930 Intake: Blood Product 930 Rc As-3 Unit 310 [id number] As-3 Unit 310 [id number] Other: Voiding Method Toilet Weight 70.307 kg 70.307 kg Results CBC & Chem 7: 06/05/20 07:29 06/04/20 22:24 Labs: Abnormal Lab Results - Last 24 Hours (Table) 06/04/20 06/04/20 06/04/20 Range/Units 22:15 22:15 22:24 RBC 1.53 L (4.30-5.90) m/uL Hgb 5.0 L* D (13.0-17.5) gm/dL Hct 14.7 L* (39.0-53.0) % RDW 18.1 H (11.5-15.5) % Lymphocytes # 0.7 L (1.0-4.8) k/uL PT 12.2 H (9.0-12.0) sec INR 1.2 H (<1.2) APTT 21.5 L (22.0-30.0) sec Sodium (137-145) mmol/L Chloride (98-107) mmol/L BUN (9-20) mg/dL Creatinine (0.66-1.25) mg/dL Glucose (74-99) mg/dL Calcium (8.4-10.2) mg/dL Total Protein (6.3-8.2) g/dL Albumin (3.5-5.0) g/dL Crossmatch See Detail 06/04/20 06/05/20 06/05/20 Range/Units 22:24 02:01 07:29 RBC 1.56 L 1.90 L (4.30-5.90) m/uL Hgb 5.0 L* 6.2 L* (13.0-17.5) gm/dL Hct 15.0 L* 18.0 L* (39.0-53.0) % RDW 16.7 H 16.3 H (11.5-15.5) % Lymphocytes # (1.0-4.8) k/uL PT (9.0-12.0) sec INR (<1.2) APTT (22.0-30.0) sec Sodium 134 L (137-145) mmol/L Chloride 97 L (98-107) mmol/L BUN 147 H* (9-20) mg/dL Creatinine 9.22 H* (0.66-1.25) mg/dL Glucose 134 H (74-99) mg/dL Calcium 8.1 L (8.4-10.2) mg/dL Total Protein 4.4 L (6.3-8.2) g/dL Albumin 2.8 L (3.5-5.0) g/dL Crossmatch Thrombosis Risk Factor Assmnt - Choose All That Apply Each Factor Represents 1 point: Age 41-60 years Other Risk Factors: No Other congenital or acquired thrombophilia - If yes, enter type in comment: No Thrombosis Risk Factor Assessment Total Risk Factor Score: 1 Thrombosis Risk Factor Assessment Level: Low Risk
[2020-06-05] MEDS ORDERED: methocarbamoL 750 MG TAB PO PRN (12:00)
[2020-06-05] MEDS: hydrALAZINE HCL 50 MG TAB PO SCH ×2 (12:12→17:17)
[2020-06-05] MEDS: IPRATROPIUM-ALBUTEROL 3 ML NEB INHALATION PRN ×2 (12:21→20:00)
--- NOTE | 2020-06-05 12:47 | P.NPCON ---
History of Present Illness - Reason for Consult Consult date: 06/05/20 end stage renal disease - Chief Complaint Generalized weakness - History of Present Illness ESRD patient of Dr. Park, MWF dialysis for more than 10 years coming to the hospital with generalized weakness. Missed hemodialysis sessions. Hemoglobin was 6.7 on admission. No nausea vomiting. Unable to to give a good history. Long history of GI bleed requiring multiple procedures in the past. Review of Systems Constitutional: Reports as per HPI Past Medical History Past Medical History: Atrial Fibrillation, Blood Disorder, CVA/TIA, Eye Disorder, GI Bleed, Hyperlipidemia, Hypertension, Renal Disease, Seizure Di sorder Additional Past Medical History / Comment(s): End-stage renal disease on hemodialysis schedule of Saturday, and Saturday , urolithiasis/nephrolithiasis, acute hypoxic respiratory failure after missed dialysis, paroxysmal Afib, chronic anemia, chronic thrombocytopenia, lower GI bleed, duodenal ulcer, seizures with last seizures 12/2017, 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 eye injection with steroid on 04/04 for eye "stroke" Past Anesthesia/Blood Transfusion Reactions: No Reported Reaction Additional Past Anesthesia/Blood Transfusion Reaction / Comment(s): Pt has received blood in past without reaction. Past Psychological History: No Psychological Hx Reported Additional Psychological History / Comment(s): Pt resides with his spouse of 17 yrs. He drives rarely. His spouse takes him to [employer] or his sister does. He is otherwise independent. Smoking Status: Current every day smoker Past Alcohol Use History: None Reported Additional Past Alcohol Use History / Comment(s): Patient is a smoker one pack per day since he was 17 years of age. Currently down to half pack per day. He denies any marijuana, illicit drug use, alcohol use, vaping. Past Drug Use History: None Reported - Past Family History Father Family Medical History: Cancer, CVA/TIA Additional Family Medical History / Comment(s): Father had lymphoma. He had a CVA Mother Family Medical History: CVA/TIA Additional Family Medical History / Comment(s): Mother had a CVA. Sister(s) Additional Family Medical History / Comment(s): Patient has 5 sisters one has from an aneurysm in the brain. 2 sisters have history of kidney stones. Patient has one brother that was shot as cause of , he was on the kidney transplant list. Patient has 6 children with no major medical problems. Medications and Allergies Home Medications Medication Instructions Recorded Confirmed Type Labetalol [Trandate] 100 mg PO BID@0700,1700 09/03/18 06/05/20 History Furosemide [Lasix] 80 mg PO DAILY@0700 06/16/19 06/05/20 History Sevelamer [Renvela] 3,200 mg PO AC-TID 06/16/19 06/05/20 History Acetaminophen-Codeine 300-30mg 1 tab PO Q8HR PRN 04/08/20 06/05/20 History [Tylenol w/codeine #3] Ipratropium-Albuterol Nebulize 3 ml INHALATION RT-QID PRN 04/08/20 06/05/20 History [Duoneb 0.5 mg-3 mg/3 ml Soln] Methocarbamol [Robaxin] 750 mg PO TID@0700,1200,1700 PRN 04/08/20 06/05/20 History Pantoprazole [Protonix] 40 mg PO DAILY@0700 04/08/20 06/05/20 History hydrALAZINE HCL [Apresoline] 100 mg PO TID@0700,1200,1700 04/08/20 06/05/20 History levETIRAcetam 1,000 mg PO BID@0700,1700 04/08/20 06/05/20 History Acetaminophen Tab [Tylenol] 650 mg PO Q6HR PRN tab 04/09/20 06/05/20 Rx Atorvastatin [Lipitor] 20 mg PO DAILY@0700 05/30/20 06/05/20 History Gabapentin [Neurontin] 100 mg PO BID@0700,1700 05/30/20 06/05/20 History Sevelamer Carbonate 1,600 mg PO BID PRN 05/30/20 06/05/20 History amLODIPine [Norvasc] 5 mg PO BID@0700,1700 05/30/20 06/05/20 History Allergies Allergy/AdvReac Type Severity Reaction Status Date / Time hydromorphone [From Dilaudid] AdvReac Hallucinati Verified 06/05/20 08:29 ons morphine AdvReac Hallucinati Verified 06/05/20 08:29 ons Physical Exam Vitals: Vital Signs Temp Pulse Pulse Resp BP BP Pulse Ox 06/05/20 12:33 18 06/05/20 12:32 80 06/05/20 11:50 98.5 F 72 154/70 100 06/05/20 11:20 98.3 F 66 18 174/74 06/05/20 11:10 98.3 F 70 18 150/73 06/05/20 07:42 98.8 F 77 18 141/71 100 06/05/20 06:24 99.1 F 91 16 164/74 98 06/05/20 04:00 99.0 F 76 18 165/72 100 06/05/20 03:33 99.4 F 75 18 165/66 06/05/20 03:03 98.6 F 80 18 162/82 100 06/05/20 02:53 98.7 F 76 20 157/66 100 06/05/20 02:36 99.0 F 76 16 165/72 100 06/05/20 02:05 98.7 F 76 20 157/66 100 06/05/20 01:00 78 16 170/81 100 06/05/20 00:20 98.6 F 77 17 162/77 100 06/04/20 23:50 98.5 F 82 18 144/77 100 06/04/20 23:40 98.3 F 80 18 154/80 100 06/04/20 22:06 98.2 F 86 18 162/94 97 Intake and Output 06/04/20 06/05/20 06/05/20 22:59 06:59 14:59 Intake Total 930 0 Balance 930 0 Intake: Blood Product 930 0 Rc As-1 Unit 0 [id number] Rc As-3 Unit 310 [id number] Rc As-3 Unit 310 [id number] Other: Voiding Method Toilet Weight 70.307 kg 70.307 kg No acute distress S1-S2 heard Lungs clear Abdomen soft No edema Right forearm aVF Results - Lab Results Most recent lab results Calcium 8.1 mg/dL (8.4-10.2) L 06/04/20 22:24 06/05/20 07:29 06/04/20 22:24 Assessment and Plan Assessment: #1 generalized weakness secondary to low hemoglobin from GI bleed #2 ESRD on hemodialysis MWF #3 hypertension with ESRD #4 anemia multifactorial #5 metabolic bone disease with ESRD Plan: #1 PRBC transfusion to maintain hemoglobin more than 8. Goal is 10-11. #2 hemodialysis tomorrow as outpatient schedule no acute indication for SET OFF [employer]PER[employer] today.
[2020-06-05] MEDS: SEVELAMER 800 MG TAB PO SCH ×2 (13:36→17:17)
[2020-06-05] MEDS: amLODIPine 5 MG TAB PO SCH (17:18)
[2020-06-05] MEDS: LABETALOL 100 MG TAB PO SCH (17:18)
[2020-06-05] MEDS: GABAPENTIN 100 MG CAP PO SCH (17:18)
[2020-06-05] MEDS: levETIRAcetam 500 MG TAB PO SCH (17:18)
[2020-06-05] MEDS ORDERED: ALPRAZolam 0.5 MG TAB PO PRN (19:23)
--- NOTE | 2020-06-05 20:23 | P.CONS ---
History of Present Illness - Reason for Consult Consult date: 06/05/20 Anemia Requesting physician: Shanae Mayorga - Chief Complaint Melena - History of Present Illness 50-year-old male with a medical history significant for end-stage renal disease on hemodialysis, hypertension, seizure disorder, prior CVA chronic thrombocytopenia, tobacco abuse, atrial fibrillation and prior GI bleed who presented to the hospital for evaluation of melena. Patient has been seen both at [facility] and then [facility] recently for complaints of GI bleed. At [facility] he underwent EGD and colonoscopy on Saturday with findings of a distal esophageal ulcer, severe gastritis with ulceration and severe duodenitis with ulceration in the duodenal bulb. There is no active bleeding at that time. A colonoscopy was significant for polypectomy and diverticulosis. The patient again left the hospital AGAINST MEDICAL ADVICE and presented back to the hospital on current presentation with melena. Patient was found to have a hemoglobin of 5.0 on presentation subsequently 6.2 after transfusion of 2 units of packed red blood cells. Previously the patient declines EGD and colonoscopy on 2 occasions in 2018 initially with findings of an antral ulcer on EGD and on subsequent EGD and colonoscopy later in the year with findings of a vessel on colonoscopy requiring Endo Clip placement and coagulation therapy. Review of Systems REVIEW OF SYSTEMS: CONSTITUTIONAL: Denies any fevers, chills, weight change or fatigue. CARDIOVASCULAR: Denies any chest pain, palpitations high or low blood pressures RESPIRATORY: Denies any shortness of breath, hemoptysis or cough. GENITOURINARY: Endstage renal disease on hemodialysis. MUSCULOSKELETAL: No focal weakness reported. SKIN: Denies any new rashes or lesions, jaundice or pallor. PSYCHIATRIC: Denies any depression or anxiety. NEUROLOGY: Denies headache, denies any new focal deficits. EARS/NOSE/THROAT: No recent hearing change, congestion, nasal discharge or sore throat. EYES: No pain in eyes, discharge or change in vision. GASTROINTESTINAL: As per HPI. 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 eye injection with steroid on 04/04 for eye "stroke" Past Anesthesia/Blood Transfusion Reactions: No Reported Reaction Additional Past Anesthesia/Blood Transfusion Reaction / Comm: Pt has received blood in past without reaction. Past Psychological History: No Psychological Hx Reported Additional Psychological History / Comment(s): Pt resides with his spouse of 17 yrs. He drives rarely. His spouse takes him to [place] or his sister does. He is otherwise independent. Smoking Status: Current every day smoker Past Alcohol Use History: None Reported Additional Past Alcohol Use History / Comment(s): Patient is a smoker one pack per day since he was 17 years of age. Currently down to half pack per day. He denies any marijuana, illicit drug use, alcohol use, vaping. Past Drug Use History: None Reported - Past Family History Father Family Medical History: Cancer, CVA/TIA Additional Family Medical History / Comment(s): Father had lymphoma. He had a CVA Mother Family Medical History: CVA/TIA Additional Family Medical History / Comment(s): Mother had a CVA. Sister(s) Additional Family Medical History / Comment(s): Patient has 5 sisters one has from an aneurysm in the brain. 2 sisters have history of kidney stones. Patient has one brother that was shot as cause of , he was on the kidney transplant list. Patient has 6 children with no major medical problems. Medications and Allergies Home Medications Medication Instructions Recorded Confirmed Type Labetalol [Trandate] 100 mg PO BID@0700,1700 09/03/18 06/05/20 History Furosemide [Lasix] 80 mg PO DAILY@0700 06/16/19 06/05/20 History Sevelamer [Renvela] 3,200 mg PO AC-TID 06/16/19 06/05/20 History Acetaminophen-Codeine 300-30mg 1 tab PO Q8HR PRN 04/08/20 06/05/20 History [Tylenol w/codeine #3] Ipratropium-Albuterol Nebulize 3 ml INHALATION RT-QID PRN 04/08/20 06/05/20 History [Duoneb 0.5 mg-3 mg/3 ml Soln] Methocarbamol [Robaxin] 750 mg PO TID@0700,1200,1700 PRN 04/08/20 06/05/20 History Pantoprazole [Protonix] 40 mg PO DAILY@0700 04/08/20 06/05/20 History hydrALAZINE HCL [Apresoline] 100 mg PO TID@0700,1200,1700 04/08/20 06/05/20 History levETIRAcetam 1,000 mg PO BID@0700,1700 04/08/20 06/05/20 History Acetaminophen Tab [Tylenol] 650 mg PO Q6HR PRN tab 04/09/20 06/05/20 Rx Atorvastatin [Lipitor] 20 mg PO DAILY@0700 05/30/20 06/05/20 History Gabapentin [Neurontin] 100 mg PO BID@0700,1700 05/30/20 06/05/20 History Sevelamer Carbonate 1,600 mg PO BID PRN 05/30/20 06/05/20 History amLODIPine [Norvasc] 5 mg PO BID@0700,1700 05/30/20 06/05/20 History Allergies Allergy/AdvReac Type Severity Reaction Status Date / Time hydromorphone [From Dilaudid] AdvReac Hallucinati Verified 06/05/20 08:29 ons morphine AdvReac Hallucinati Verified 06/05/20 08:29 ons Physical Exam Vitals: Vital Signs Temp Pulse Pulse Resp BP BP Pulse Ox 06/05/20 11:20 98.3 F 66 18 174/74 06/05/20 11:10 98.3 F 70 18 150/73 06/05/20 07:42 98.8 F 77 18 141/71 100 06/05/20 06:24 99.1 F 91 16 164/74 98 07/19/20 04:00 99.0 F 76 18 165/72 100 06/05/20 03:33 99.4 F 75 18 165/66 06/05/20 03:03 98.6 F 80 18 162/82 100 06/05/20 02:53 98.7 F 76 20 157/66 100 06/05/20 02:36 99.0 F 76 16 165/72 100 06/05/20 02:05 98.7 F 76 20 157/66 100 06/05/20 01:00 78 16 170/81 100 06/05/20 00:20 98.6 F 77 17 162/77 100 06/04/20 23:50 98.5 F 82 18 144/77 100 06/04/20 23:40 98.3 F 80 18 154/80 100 06/04/20 22:06 98.2 F 86 18 162/94 97 Intake and Output 06/04/20 06/05/20 06/05/20 22:59 06:59 14:59 Intake Total 930 0 Balance 930 0 Intake: Blood Product 930 0 Rc As-1 Unit 0 [id number] Rc As-3 Unit 310 [id number] Rc As-3 Unit 310 [id number] Other: Voiding Method Toilet Weight 70.307 kg 70.307 kg On physical examination, patient appears comfortable in no apparent distress. HEAD: Normocephalic, atraumatic. EYES: No scleral icterus. No conjunctival injection. MOUTH: No lesions, tongue midline. NECK: Trachea midline, no gross abnormalities. CHEST: Decreased air entry in all lung kent. HEART: Regular rate and rhythm. ABDOMEN: Soft, nontender to palpationel sounds are positive. No organomegaly. No guarding or rigidity. EXTREMITIES: No pedal edema. SKIN: No rashes, no jaundice. NEUROLOGIC: Alert and oriented. Results CBC & Chem 7: 06/05/20 07:29 06/04/20 22:24 Labs: Abnormal Lab Results - Last 24 Hours (Table) 06/04/20 06/04/20 06/04/20 Range/Units 22:15 22:15 22:24 RBC 1.53 L (4.30-5.90) m/uL Hgb 5.0 L* D (13.0-17.5) gm/dL Hct 14.7 L* (39.0-53.0) % RDW 18.1 H (11.5-15.5) % Lymphocytes # 0.7 L (1.0-4.8) k/uL PT 12.2 H (9.0-12.0) sec INR 1.2 H (<1.2) APTT 21.5 L (22.0-30.0) sec Sodium (137-145) mmol/L Chloride (98-107) mmol/L BUN (9-20) mg/dL Creatinine (0.66-1.25) mg/dL Glucose (74-99) mg/dL Calcium (8.4-10.2) mg/dL Total Protein (6.3-8.2) g/dL Albumin (3.5-5.0) g/dL Crossmatch See Detail 06/04/20 06/05/20 06/05/20 Range/Units 22:24 02:01 07:29 RBC 1.56 L 1.90 L (4.30-5.90) m/uL Hgb 5.0 L* 6.2 L* (13.0-17.5) gm/dL Hct 15.0 L* 18.0 L* (39.0-53.0) % RDW 16.7 H 16.3 H (11.5-15.5) % Lymphocytes # (1.0-4.8) k/uL PT (9.0-12.0) sec INR (<1.2) APTT (22.0-30.0) sec Sodium 134 L (137-145) mmol/L Chloride 97 L (98-107) mmol/L BUN 147 H* (9-20) mg/dL Creatinine 9.22 H* (0.66-1.25) mg/dL Glucose 134 H (74-99) mg/dL Calcium 8.1 L (8.4-10.2) mg/dL Total Protein 4.4 L (6.3-8.2) g/dL Albumin 2.8 L (3.5-5.0) g/dL Crossmatch Assessment and Plan (1) Anemia associated with acute blood loss Narrative/Plan: 50-year-old male with multiple medical comorbidities including end-stage renal disease on hemodialysis and chronic anemia who presented on multiple recent hospitalizations with complaints of melena and anemia. He left AMA initially from [facility] earlier in the week and he showed up at [facility] with similar complaints. He was taken for colonoscopy and EGD on Saturday with findings of distal esophageal ulcer, severe gastritis with multiple superficial ulcers and severe duodenitis with ulceration without any active bleeding. The patient was started and continued on PPI therapy but again left AGAINST MEDICAL ADVICE and presented to [facility] yesterday for further evaluation with complaints of GI bleed. Patient found to be anemic with a hemog lobin of 5. Current Visit: Yes Status: Acute Code(s): D62 - ACUTE POSTHEMORRHAGIC ANEMIA SNOMED Code(s): 638299715 (2) Peptic ulcer disease Current Visit: Yes Status: Acute Code(s): K27.9 - PEPTIC ULC, SITE UNSP, UNSP AC OR CHR, W/O HEMOR OR PERF SNOMED Code(s): 89374006 Plan: Supportive care For liquid diet Continue Protonix 40 mg twice daily Continue to monitor hemoglobin and hematocrit and transfuse as needed EGD and colonoscopy performed Saturday with findings as dictated above, no plans for endoscopic evaluation at this time, further fall in hemoglobin consideration for possible second look endoscopy pending laboratory and clinical course Thank you for allowing us to participate in the care of the patient
--- NOTE | 2020-06-05 20:42 | XR ---
EXAMINATION TYPE: XR chest 1V portable DATE OF EXAM: 06/05/2020 Comparison: 05/30/2020 Clinical History: 50-year-old male sob Findings: Heart normal size. Aorta within normal limits. Some mild patchy peripheral basilar interstitial densi ties. No pleural effusion. Impression: Some patchy peripheral interstitial densities in the lower lungs. Correlate for bronchitis or early a typical pneumonias. Follow-up can be performed.
[2020-06-06] MEDS: SEVELAMER 800 MG TAB PO SCH ×3 (06:33→18:37)
[2020-06-06] MEDS: ATORVASTATIN 20 MG TAB PO SCH (06:34)
[2020-06-06] MEDS: FUROSEMIDE 80 MG TAB PO SCH (06:34)
[2020-06-06] MEDS: GABAPENTIN 100 MG CAP PO SCH ×2 (06:34→18:37)
[2020-06-06] MEDS: levETIRAcetam 500 MG TAB PO SCH ×2 (06:34→18:36)
[2020-06-06] MEDS ORDERED: PANTOPRAZOLE 40 MG TABLET PO SCH (07:00)
[2020-06-06 07:11] LABS: Anisocytosis Slight; MCH 32.1 pg (25.0-35.0); MCHC 33.8 g/dL (31.0-37.0); MCV 94.9 fL (80.0-100.0); Macrocytosis Slight; Platelet Count 236 k/uL (150-450); RBC 1.77 m/uL (4.30-5.90); RDW 18.4 % (11.5-15.5); WBC 9.5 k/uL (3.8-10.6)
[2020-06-06 07:17] LABS: HGB 5.7 gm/dL (13.0-17.5)
[2020-06-06 07:18] LABS: HCT 16.8 % (39.0-53.0)
[2020-06-06 07:21] LABS: Calcium 7.9 mg/dL (8.4-10.2); Potassium 4.9 mmol/L (3.5-5.1)
[2020-06-06] MEDS: IPRATROPIUM-ALBUTEROL 3 ML NEB INHALATION PRN ×2 (08:35→11:51)
[2020-06-06] MEDS: hydrALAZINE HCL 50 MG TAB PO SCH ×3 (11:33→18:42)
[2020-06-06] MEDS: amLODIPine 5 MG TAB PO SCH ×2 (11:33→18:37)
[2020-06-06] MEDS: LABETALOL 100 MG TAB PO SCH ×2 (11:33→18:37)
[2020-06-06] MEDS ORDERED: DESMOPRESSIN ACETATE 20 MCG in SODIUM CHLORIDE 0.9% 50 ML IVPB ONE (11:36)
--- NOTE | 2020-06-06 12:05 | PN ---
PROGRESS NOTE The patient is seen for followup for end-stage renal disease. He has been admitted to the hospital with severe anemia with hemoglobin around 5 g/dL. Patient continues to have ongoing GI bleed. He is scheduled for hemodialysis today. He has been evaluated by GI yesterday and he did have recent EGD and colonoscopy at [facility]. He was found to have esophageal ulcers. No complaints of chest pains or shortness of breath this morning. PHYSICAL EXAMINATION: On examination, blood pressure was 160/80, heart rate 70 per minute, he is afebrile. Examination of the heart S1, S2. Examination of the lungs, bilateral breath sounds are heard. Abdomen is soft, nontender. Examination of lower extremities shows trace edema bilaterally. [employer] exam grossly intact. LAB: Show sodium 130, potassium 4.9, chloride 96 BUN 203, serum creatinine 11.56. ASSESSMENT: 1. End-stage renal disease, on hemodialysis on a Saturday, Saturday, Saturday schedule. 2. Disproportionately elevated BUN secondary to gastrointestinal bleed. 3. Severe anemia secondary to blood loss from GI bleed, status post EGD and colonoscopy about 4 days ago, being followed by Gastroenterology. If the patient's hemoglobin continues to drop, there may be consideration for re-look endoscopy. 4. Mild volume overload. PLAN: Hemodialysis today, UF about 2-2.5 L as tolerated. I will give a dose of DDAVP to help with the bleeding. Continue with the phosphate binders. MMODL / IJN: [id number] /
[2020-06-06] MEDS: PANTOPRAZOLE 40 MG/10 ML VIAL IVP SCH ×2 (12:16→20:24)
--- NOTE | 2020-06-06 12:49 | P.PN ---
Subjective Progress Note Date: 06/06/20 History of Present Illness This is a 50-year-old male patient of Dr. Holguin with past medical history of end-stage renal disease secondary to kidney stones on hemodialysis fo r 10 years 3 times weekly- Mo, We, Fr, hypertension, hypertensive cardiovascular disease, seizure disorder, left thalamus stroke, previous admission for acute hypoxic respiratory failure secondary to fluid overload from missing dialysis treatments requiring mechanical ventilation, history of empyema status post VATS and pericardial window, history of chronic thrombocytopenia, tobacco use and dependence-continues to be an active smoker, paroxysmal atrial fibrillation in February 2018. Patient was admitted on May 30 and signed out AMA on May 31 which time he was treated for acute GI bleed status post transfusion. He has subsequently been admitted to [facility] where he was also treated for acute GI bleed and was transfused. He underwent EGD that did show ulcers in the esophagus, stomach and duodenum. He also had a colonoscopy with polyp removal. Patient signed out AMA from [facility] yesterday. He presented last evening to [facility] for GI bleed with melena emesis. Patient was given Ativan in the emergency center and is sedated this morning but arousable to verbal stimuli. Discussed current condition with patient's at the bedside. Patient continues to smoke a half a pack per day. Patient came into [facility] emergency center for evaluation found to be afebrile, heart rate 80, blood pressure 154/80, pulse ox 100% on 2L. WBC 8.6, hemoglobin 5.0, platelet count 237. Sodium 134, potassium 4.6, chloride 7, CO2 22, BUN 147 creatinine 9.22. Glucose 134. CK 253. Patient has been admitted to the cardiac stepdown unit and consulted nephrology and GI. Patient has been transfused 2 units packed RBCs with hemoglobin of 6.2. One more unit has been ordered today and second unit to be given with hemodialysis. 06/06: Patient is receiving hemodialysis this morning. His repeat hemoglobin this morning is 5.2 and he scheduled for 2 units of packed RBCs. The patient has been seen by GI with plan for possible second look endoscopy. He has been afebrile, heart rate 68, blood pressure 145/74, pulse ox 100% on 3 L nasal cannula. Long discussion with the patient and his regarding why he is signing out AMA and not completing his course of treatment. Patient states that he feels he is being neglected and on not getting treatment as quickly as he should. He stated he waited for a half hours before he had his testing done at [facility]. Instructed patient that he needs to be stabilized before he goes for any types of procedures and he needs to be patient and compliant with coarse. He does run the risk of going home and dying if he continues to sign out AMA. Review of Systems Constitutional: No fever, no chills, no night sweats. No weight change. Reports weakness, Reports fatigue. Denies daytime sleepiness. EENT: No headache. No blurred vision or double vision, no loss of vision. No loss of Hearing, no ringing in the ears, no dizziness. No nasal drainage or congestion. No epistaxis. No sore throat. Lungs: No shortness of breath, cough, no sputum production. No wheezing. Cardiovascular: No chest pain, no lower extremity edema. No palpitations. No paroxysmal nocturnal dyspnea. No orthopnea. No lightheadedness or dizziness. No syncopal episodes. Abdominal: No abdominal pain. Reports nausea, vomiting. Reports hematemesis. No diarrhea. No constipation. No bloody or tarry stools. Reports loss of appetite. Musculoskeletal: No myalgias. No muscle weakness, no gait dysfunction, no frequent falls. No back pain. Reports neck pain. Integumentary: No wounds, no lesions. No rash or pruritus. No unusual bruising. No change in hair or nails. Neurologic: No aphasia. No facial droop. No change in mentation. No head injury. No headache. No paralysis. No paresthesia. Psychiatric: No depression. No anxiety. No mood swings. Endocrine: No abnormal blood sugars. No weight change. No excessive sweating or thirst. No cold intolerance. Physical Examination Gen: This is a 50-year-old male patient sitting on the edge of bed and appears to be in no acute distress. No acute respiratory distress is noted. Patient's is at bedside. HEENT: Head is atraumatic, normocephalic. Pupils equal, round. Sclerae is anicteric. Generalized color is lozano. NECK: Supple. No JVD. No lymphadenopathy. No thyromegaly. LUNGS: Expiratory wheeze bilaterally. No accessory muscle usage. No intercostal retractions. HEART: Regular rate and rhythm. Systolic murmur. ABDOMEN: Soft. Bowel sounds are present. No masses. No tenderness. EXTREMITIES: No pedal edema. No calf tenderness. No lower extremity wounds. NEUROLOGICAL: Patient is awake, alert and oriented x3. Cranial nerves 2 through 12 are grossly intact. Assessment and Plan 1. Acute weakness secondary to acute GI bleed. Consult with GI appreciated. Patient has had another drop in hemoglobin may require a second look endoscopy.. 2. Acute blood loss anemia from acute GI bleed. Patient is now total of 5 units of packed RBCs. Continue Protonix twice daily. 3. End-stage renal disease on hemodialysis Saturday and Saturday. Consult with nephrology. Patient is undergoing hemodialysis today.. Continue lasix 80 mg daily. One more unit has been ordered today and second unit to be given with hemodialysis. 4. History of anemia of chronic disease with baseline hemoglobin of 8. 5. Hyperphosphatemia. Continue Renvela 3200 mg 3 times daily. 6. Hypertension, hypertensive cardiovascular disease. Continue amlodipine 5 mg twice daily, hydralazine 100 mg 3 times daily, labetalol 100 mg twice daily. 7. History of seizure disorder. Continue Keppra 1000 mg twice daily. 8. History of empyema status post VATS and pericardial window. 9. History of left thalamus stroke. Continue Lipitor 20 mg daily for secondary prevention. 10. Tobacco use and dependence. Nicotine patch ordered as needed as patient is denying need at this time. 11. Chronic thrombocytopenia. Currently stable. 12. DVT prophylaxis. KP hose and SCDs. 13. GI prophylaxis. Protonix 14. CODE STATUS: Full code. 15. COVID-19 infection not present. Discharge plan: Return home Impression and plan of care have been directed as dictated by the signing physician. Doretha Brumfield nurse practitioner acting as scribe for signing physician. Objective - Vital Signs Vital signs: Vital Signs Temp 97.8 F 06/06/20 04:00 Pulse 68 06/06/20 08:35 Resp 16 06/06/20 04:00 BP 145/74 06/06/20 04:00 Pulse Ox 100 06/06/20 04:00 Intake & Output 06/05/20 06/06/20 06/06/20 18:59 06:59 18:59 Intake Total 1330 Balance 1330 Weight 70.6 kg Intake: Oral 1020 Blood Product 310 Rc As-1 Unit 310 [id number] Other: Voiding Method Toilet # Voids 1 1 # Bowel Movements 1 - Labs CBC & Chem 7: 06/06/20 06:48 06/06/20 06:48 Labs: Abnormal Lab Results - Last 24 Hours (Table) 06/04/20 06/05/20 06/06/20 Range/Units 22:15 07:29 06:48 RBC 1.77 L (4.30-5.90) m/uL Hgb 6.2 L* 5.7 L* (13.0-17.5) gm/dL Hct 18.0 L* 16.8 L* (39.0-53.0) % RDW 18.4 H (11.5-15.5) % Sodium (137-145) mmol/L Chloride (98-107) mmol/L Carbon Dioxide (22-30) mmol/L BUN (9-20) mg/dL Creatinine (0.66-1.25) mg/dL Glucose (74-99) mg/dL Calcium (8.4-10.2) mg/dL Crossmatch See Detail 06/06/20 Range/Units 06:48 RBC (4.30-5.90) m/uL Hgb (13.0-17.5) gm/dL Hct (39.0-53.0) % RDW (11.5-15.5) % Sodium 130 L (137-145) mmol/L Chloride 96 L (98-107) mmol/L Carbon Dioxide 19 L (22-30) mmol/L BUN 203 H* (9-20) mg/dL Creatinine 11.56 H* (0.66-1.25) mg/dL Glucose 137 H (74-99) mg/dL Calcium 7.9 L (8.4-10.2) mg/dL Crossmatch
[2020-06-06 14:41] LABS: RBC 2.25 m/uL (4.30-5.90); WBC 7.9 k/uL (3.8-10.6)
[2020-06-06 14:42] LABS: Anisocytosis Slight; HCT 20.5 % (39.0-53.0); MCH 32.5 pg (25.0-35.0); MCHC 35.7 g/dL (31.0-37.0); MCV 90.9 fL (80.0-100.0); Mean Platelet Volume 7.7; Platelet Count 187 k/uL (150-450); RDW 17.6 % (11.5-15.5)
[2020-06-06 14:46] LABS: HGB 7.3 gm/dL (13.0-17.5)
--- NOTE | 2020-06-06 15:25 | PN ---
PROGRESS NOTE DATE OF SERVICE: 06/06/2020 The patient is a 50-year-old pleasant white male admitted to the hospital with symptomatic anemia and black tarry stools. He was recently admitted to [facility] with similar complaint. He had an EGD and colonoscopy done by Dr. Travis on June 03 which revealed a distal esophageal ulcer, severe gastritis with ulceration and severe duodenitis with ulceration in the duodenal bulb. Colonoscopy showed small polyps and diverticulosis. The patient received 2 units of blood transfusion at that time and was he went home against medical advice. He was readmitted to the hospital with ongoing black tarry stools, epigastric pain, and drop in hemoglobin to 5.6. He is feeling better today. No episodes of bleeding. PHYSICAL EXAMINATION: Appears comfortable, in no apparent distress. Vital signs stable. Blood pressure is 132/70, pulse rate 65, temperature 97.8. HEENT examination unremarkable. Conjunctivae are pink, sclerae anicteric. Oral cavity no lesions. Neck with no JVD or lymph node enlargement. The chest was clear to auscultation. Heart regular rate and rhythm. Abdomen was soft, was nontender, nondistended, bowel sounds are positive, no organomegaly. Extremities with no pedal edema. Neurological, alert and oriented x3. No focal deficits. LABS: He received a total of 5 units of blood transfusion so far. Last hemoglobin today is 5.7 g/dL. BUN is 203, creatinine 11.56. IMPRESSION: 1. Severe symptomatic anemia with active gastrointestinal bleed. Patient having multiple episodes of black tarry stools as of yesterday and today he did not have any bleeding. EGD and colonoscopy by Dr. Travis 3 days ago at [facility] showed severe esophagitis, gastritis, duodenitis with ulceration, but no active bleeding noted. Colonoscopy showed polyp and diverticulosis. Now, he continues to have active ongoing black tarry stools and drop in hemoglobin requiring a total of 5 units of PRBC transfusion during this hospitalization. Repeat CBC today is pending. 2. End-stage renal disease, on hemodialysis. 3. History of hypertension. 4. Gastroesophageal reflux disease. 5. Hypercholesteremia. RECOMMENDATION: 1. Continue with PRBC transfusion. 2. CBC every 12 hours. 3. We will proceed with a repeat upper endoscopy tomorrow and based on the results, we will also consider a small bowel capsule endoscopy if necessary. The plan was discussed with the patient. He is agreeable to it. Thank you for this consultation. MMODL / IJN: [id number] /
[2020-06-06] MEDS ORDERED: LORazepam 2 MG/ML INJ IV ONE (21:00)
[2020-06-07] LABS: Anisocytosis Slight; MCH 32.5 pg (25.0-35.0); MCHC 35.6 g/dL (31.0-37.0); MCV 91.3 fL (80.0-100.0); Mean Platelet Volume 7.5; Platelet Count 168 k/uL (150-450); RBC 2.02 m/uL (4.30-5.90); RDW 18.5 % (11.5-15.5)
[2020-06-07 00:05] LABS: HCT 18.4 % (39.0-53.0); HGB 6.6 gm/dL (13.0-17.5)
[2020-06-07] MEDS: amLODIPine 5 MG TAB PO SCH ×2 (08:23→08:25)
[2020-06-07] MEDS: GABAPENTIN 100 MG CAP PO SCH ×2 (08:24→16:32)
[2020-06-07] MEDS: FUROSEMIDE 80 MG TAB PO SCH (08:24)
[2020-06-07] MEDS: ATORVASTATIN 20 MG TAB PO SCH (08:24)
[2020-06-07] MEDS: SEVELAMER 800 MG TAB PO SCH ×3 (08:24→16:31)
[2020-06-07] MEDS: hydrALAZINE HCL 50 MG TAB PO SCH ×3 (08:25→16:32)
[2020-06-07] MEDS: LABETALOL 100 MG TAB PO SCH ×2 (08:25→16:57)
[2020-06-07] MEDS: levETIRAcetam 500 MG TAB PO SCH ×2 (08:25→16:32)
[2020-06-07 09:51] LABS: Glucose,Whole Blood 93 mg/dL (75-99)
[2020-06-07] MEDS: PANTOPRAZOLE 40 MG/10 ML VIAL IVP SCH ×2 (10:19→19:59)
[2020-06-07 11:32] LABS: Albumin 2.4 g/dL (3.5-5.0); Calcium 7.5 mg/dL (8.4-10.2); Potassium 4.7 mmol/L (3.5-5.1); Total Bilirubin 0.8 mg/dL (0.2-1.3); Total Protein 4.1 g/dL (6.3-8.2)
[2020-06-07 11:45] LABS: Anisocytosis Slight; HCT 25.7 % (39.0-53.0); MCH 32.5 pg (25.0-35.0); MCHC 35.4 g/dL (31.0-37.0); MCV 91.8 fL (80.0-100.0); Mean Platelet Volume 7.4; Platelet Count 146 k/uL (150-450); RDW 17.4 % (11.5-15.5)
[2020-06-07 11:55] LABS: HGB 9.1 gm/dL (13.0-17.5)
[2020-06-07] MEDS ORDERED: DESMOPRESSIN ACETATE 20 MCG in SODIUM CHLORIDE 0.9% 50 ML IVPB ONE (12:00)
--- NOTE | 2020-06-07 12:12 | P.CNPUL ---
History of Present Illness Consult date: 06/07/20 Requesting physician: Kg Bruno Reason for consult: other (GI bleeding and blood loss anemia) Chief complaint: GI bleeding History of present illness: This is a 50-year-old white male with history of end-stage renal disease, maintained on hemodialysis for the last 10 years. Patient is also known to have history of hypertension, seizure disorder, previous CVA involving the left thalamus, recurrent episodes of fluid overload if he misses dialysis. History of empyema requiring VATS and pericardial window couple of years back. History of tobacco dependence syndrome, chronic atrial fibrillation, patient was recently admitted to [facility] with GI bleeding requiring transfusion, however the patient left home AGAINST MEDICAL ADVICE. He underwent EGD and it showed ulcers in the esophagus stomach and duodenum. He also had colonoscopy and a polyp was removed. Shortly after his EGD, patient insisted on going home and he left AMA. Patient was readmitted today on 06/05/20, mostly complaining of GI bleeding and melena with emesis. Patient was admitted, and since admission the patient has received a total of 7 units of packed RBCs, and he continues to have intermittent episodes of black and maroon colored stools. Considering the amount of blood transfusions, patient was transferred to the ICU, and I was asked to see him on consultation. His last episode of maroon colored stools was early this morning. Patient remained hemodynamically stable, and in no distress, presently on room air. Seen by gastroenterology, and he is being considered for EGD and possibly capsule study. Review of Systems Constitutional: Denies fever chills night sweats or weight loss. EENT: Denies blurred vision dizziness nasal congestion. Earache. Lungs: Denies shortness of breath cough wheezing. Cardiovascular: Denies chest pain and orthopnea PND or palpitations. Abdominal: As noted in HPI. Musculoskeletal: Denies arthralgia or myalgia. Integumentary: Denies skin rashes or pruritus. Neurologic: Denies headache blurred vision dizziness syncope. Psychiatric: Denies depression or generalized anxiety disorder. Endocrine: Denies heat or cold intolerance. Hematologic: Denies previous history of clotting bleeding or bruising. 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 eye injection with steroid on 04/04 for eye "stroke" Past Anesthesia/Blood Transfusion Reactions: No Reported Reaction Additional Past Anesthesia/Blood Transfusion Reaction / Comment(s): Pt has received blood in past without reaction. Past Psychological History: No Psychological Hx Reported Additional Psychological History / Comment(s): Pt resides with his spouse of 17 yrs. He drives rarely. His spouse takes him to [employer] or his sister does. He is otherwise independent. Smoking Status: Current every day smoker Past Alcohol Use History: None Reported Additional Past Alcohol Use History / Comment(s): Patient is a smoker one pack per day since he was 17 years of age. Currently down to half pack per day. He denies any marijuana, illicit drug use, alcohol use, vaping. Past Drug Use History: None Reported - Past Family History Father Family Medical History: Cancer, CVA/TIA Additional Family Medical History / Comment(s): Father had lymphoma. He had a CVA Mother Family Medical History: CVA/TIA Additional Family Medical History / Comment(s): Mother had a CVA. Sister(s) Additional Family Medical History / Comment(s): Patient has 5 sisters one has from an aneurysm in the brain. 2 sisters have history of kidney stones. Patient has one brother that was shot as cause of , he was on the kidney transplant list. Patient has 6 children with no major medical problems. Medications and Allergies Home Medications Medication Instructions Recorded Confirmed Type Labetalol [Trandate] 100 mg PO BID@0700,1700 09/03/18 06/05/20 History Furosemide [Lasix] 80 mg PO DAILY@0700 06/16/19 06/05/20 History Sevelamer [Renvela] 3,200 mg PO AC-TID 06/16/19 06/05/20 History Acetaminophen-Codeine 300-30mg 1 tab PO Q8HR PRN 04/08/20 06/05/20 History [Tylenol w/codeine #3] Ipratropium-Albuterol Nebulize 3 ml INHALATION RT-QID PRN 04/08/20 06/05/20 History [Duoneb 0.5 mg-3 mg/3 ml Soln] Methocarbamol [Robaxin] 750 mg PO TID@0700,1200,1700 PRN 04/08/20 06/05/20 History Pantoprazole [Protonix] 40 mg PO DAILY@0700 04/08/20 06/05/20 History hydrALAZINE HCL [Apresoline] 100 mg PO TID@0700,1200,1700 04/08/20 06/05/20 History levETIRAcetam 1,000 mg PO BID@0700,1700 04/08/20 06/05/20 History Acetaminophen Tab [Tylenol] 650 mg PO Q6HR PRN tab 04/09/20 06/05/20 Rx Atorvastatin [Lipitor] 20 mg PO DAILY@0700 05/30/20 06/05/20 History Gabapentin [Neurontin] 100 mg PO BID@0700,1700 05/30/20 06/05/20 History Sevelamer Carbonate 1,600 mg PO BID PRN 05/30/20 06/05/20 History amLODIPine [Norvasc] 5 mg PO BID@0700,1700 05/30/20 06/05/20 History Allergies Allergy/AdvReac Type Severity Reaction Status Date / Time hydromorphone [From Dilaudid] AdvReac Hallucinati Verified 06/05/20 08:29 ons morphine AdvReac Hallucinati Verified 06/05/20 08:29 ons Physical Exam Vitals: Vital Signs Temp Pulse Pulse Resp BP BP Pulse Ox 06/07/20 11:00 73 14 154/88 97 06/07/20 10:00 97.6 F 67 14 154/84 99 06/07/20 09:59 97.6 F 72 15 154/84 99 06/07/20 08:00 98.4 F 65 18 146/82 99 06/07/20 07:08 98.4 F 68 16 156/80 98 06/07/20 06:38 97.5 F L 68 16 137/77 99 06/07/20 06:28 97.8 F 72 16 145/83 98 06/07/20 06:00 98.5 F 75 16 143/68 98 06/07/20 03:31 98.5 F 68 18 154/76 98 06/07/20 03:11 98.7 F 66 18 132/72 98 06/07/20 03:01 98.7 F 71 18 132/72 99 06/07/20 02:51 98.7 F 68 18 141/72 100 06/06/20 23:34 98.7 F 75 18 140/75 99 06/06/20 20:00 98.4 F 67 16 153/87 99 06/06/20 16:00 98.7 F 82 19 155/76 100 06/06/20 13:49 65 16 132/70 06/06/20 12:21 97.4 F L 72 20 132/76 Intake and Output 06/06/20 06/07/20 06/07/20 22:59 06:59 14:59 Intake Total 310 310 Output Total 1 Balance 310 309 Intake: Oral 0 0 Blood Product 310 310 Rc As-1 Unit 0 310 [id number] Rc As-1 Unit 310 [id number] Output: Urine 1 Other: Voiding Method Toilet Toilet Toilet Physical Exam: Revealed a 50-year-old white male in no distress, pleasant. Head: Atraumatic, normocephalic. HEENT:[Neck is supple.] [No neck masses.] [No thyromegaly.] [No JVD.]EOMI, no icterus. Chest: [Clear throughout, no crackles, no rhonchi, no wheezes.], Symmetrical chest expansion. Cardiac Exam: [Normal S1 and S2, no S3 gallop, 2/6 systolic murmur thought the precordium. Abdomen: [Soft, nontender, no megaly, no rebound, no guarding, normal bowel sounds.] Extremities: [No clubbing, no edema, no cyanosis.] Right forearm AV fistula is noted. Neurological Exam: [No focal neurologic deficit.] Alert and oriented 3. Psychiatric: Normal mood, affect and normal mental status examination. Skin: No rashes. Results - Laboratory Findings CBC and BMP: 06/07/20 10:50 06/07/20 10:50 PT/INR, D-dimer PT 12.2 sec (9.0-12.0) H 06/04/20 22:15 INR 1.2 (<1.2) H 06/04/20 22:15 Abnormal lab findings: Abnormal Labs 06/04/20 06/04/20 06/04/20 22:15 22:15 22:24 RBC 1.53 L Hgb 5.0 L* D Hct 14.7 L* RDW 18.1 H Plt Count Lymphocytes # 0.7 L PT 12.2 H INR 1.2 H APTT 21.5 L Sodium Chloride Carbon Dioxide BUN Creatinine Glucose Calcium Total Protein Albumin Crossmatch See Detail 06/04/20 06/05/20 06/05/20 22:24 02:01 07:29 RBC 1.56 L 1.90 L Hgb 5.0 L* 6.2 L* Hct 15.0 L* 18.0 L* RDW 16.7 H 16.3 H Plt Count Lymphocytes # PT INR APTT Sodium 134 L Chloride 97 L Carbon Dioxide BUN 147 H* Creatinine 9.22 H* Glucose 134 H Calcium 8.1 L Total Protein 4.4 L Albumin 2.8 L Crossmatch 06/06/20 06/06/20 06/06/20 06:48 06:48 13:57 RBC 1.77 L 2.25 L Hgb 5.7 L* 7.3 L D Hct 16.8 L* 20.5 L RDW 18.4 H 17.6 H Plt Count Lymphocytes # PT INR APTT Sodium 130 L Chloride 96 L Carbon Dioxide 19 L BUN 203 H* Creatinine 11.56 H* Glucose 137 H Calcium 7.9 L Total Protein Albumin Crossmatch 06/06/20 06/07/20 06/07/20 23:49 10:50 10:50 RBC 2.02 L 2.80 L Hgb 6.6 L* 9.1 L D Hct 18.4 L* 25.7 L RDW 18.5 H 17.4 H Plt Count 146 L Lymphocytes # PT INR APTT Sodium 130 L Chloride 96 L Carbon Dioxide BUN 107 H* Creatinine 8.87 H* Glucose Calcium 7.5 L Total Protein 4.1 L Albumin 2.4 L Crossmatch - Diagnostic Findings Chest x-ray: image reviewed (No evidence of acute pulmonary process,) Assessment and Plan Assessment: Impression: Acute blood loss anemia and acute GI bleeding. Patient received a total of 7 units of packed RBCs since admission. End-stage renal disease, on hemodialysis. Benign essential hypertension. History of seizure disorder. History of empyema requiring decortication and pericardial window History of CVA involving left thalamus Tobacco dependence syndrome. Recommendation: Agree with the present treatment plan Agree with Protonix twice a day. Agree with EGD and capsule study. Continue to monitor the patient in the ICU, and transfuse accordingly to keep hemoglobin above 7. Dialysis on a regular basis 3 times per week. To be continued. We'll continue to follow. Time with Patient: Greater than 30
--- NOTE | 2020-06-07 12:49 | P.PN ---
Subjective Progress Note Date: 06/07/20 History of Present Illness This is a 50-year-old male patient of Dr. Holguin with past medical history of end-stage renal disease secondary to kidney stones on hemodialysis fo r 10 years 3 times weekly- Mo, We, Fr, hypertension, hypertensive cardiovascular disease, seizure disorder, left thalamus stroke, previous admission for acute hypoxic respiratory failure secondary to fluid overload from missing dialysis treatments requiring mechanical ventilation, history of empyema status post VATS and pericardial window, history of chronic thrombocytopenia, tobacco use and dependence-continues to be an active smoker, paroxysmal atrial fibrillation in February 2018. Patient was admitted on May 30 and signed out AMA on May 31 which time he was treated for acute GI bleed status post transfusion. He has subsequently been admitted to [facility] where he was also treated for acute GI bleed and was transfused. He underwent EGD that did show ulcers in the esophagus, stomach and duodenum. He also had a colonoscopy with polyp removal. Patient signed out AMA from [facility] yesterday. He presented last evening to [facility] for GI bleed with melena emesis. Patient was given Ativan in the emergency center and is sedated this morning but arousable to verbal stimuli. Discussed current condition with patient's at the bedside. Patient continues to smoke a half a pack per day. Patient came into [facility] emergency center for evaluation found to be afebrile, heart rate 80, blood pressure 154/80, pulse ox 100% on 2L. WBC 8.6, hemoglobin 5.0, platelet count 237. Sodium 134, potassium 4.6, chloride 7, CO2 22, BUN 147 creatinine 9.22. Glucose 134. CK 253. Patient has been admitted to the cardiac stepdown unit and consulted nephrology and GI. Patient has been transfused 2 units packed RBCs with hemoglobin of 6.2. One more unit has been ordered today and second unit to be given with hemodialysis. 06/06: Patient is receiving hemodialysis this morning. His repeat hemoglobin this morning is 5.2 and he scheduled for 2 units of packed RBCs. The patient has been seen by GI with plan for possible second look endoscopy. He has been afebrile, heart rate 68, blood pressure 145/74, pulse ox 100% on 3 L nasal cannula. Long discussion with the patient and his regarding why he is signing out AMA and not completing his course of treatment. Patient states that he feels he is being neglected and on not getting treatment as quickly as he should. He stated he waited for a half hours before he had his testing done at [facility]. Instructed patient that he needs to be stabilized before he goes for any types of procedures and he needs to be patient and compliant with coarse. He does run the risk of going home and dying if he continues to sign out AMA. 06/07: Patient is status post transfusion of 6 units of packed RBCs and repeat hemoglobin is 6.6. He does have 1 unit ordered for today. We will plan to transfer the patient into intensive care unit and an consult with Dr. Fraire. He is scheduled for EGD today. Surgical consult and with Dr. Biggs who is seen him in the past. Discussed with Dr. Figueroa and she will order a dose of DDAVP. Other lab work reveals sodium 1:30, chloride 96, CO2 24, potassium 4.7, platelet count 146. Patient is afebrile, heart rate 67, blood pressure 154/84, pulse ox 99% on room air. Review of Systems Constitutional: No fever, no chills, no night sweats. No weight change. Reports weakness, Reports fatigue. Denies daytime sleepiness. EENT: No headache. No blurred vision or double vision, no loss of vision. No loss of Hearing, no ringing in the ears, no dizziness. No nasal drainage or congestion. No epistaxis. No sore throat. Lungs: No shortness of breath, cough, no sputum production. No wheezing. Cardiovascular: No chest pain, no lower extremity edema. No palpitations. No paroxysmal nocturnal dyspnea. No orthopnea. No lightheadedness or dizziness. No syncopal episodes. Abdominal: No abdominal pain. Reports nausea, vomiting. Denies hematemesis. No diarrhea. No constipation. No bloody or tarry stools. Reports loss of appetite. Musculoskeletal: No myalgias. No muscle weakness, no gait dysfunction, no frequent falls. No back pain. Reports neck pain. Integumentary: No wounds, no lesions. No rash or pruritus. No unusual bruising. No change in hair or nails. Neurologic: No aphasia. No facial droop. No change in mentation. No head injury. No headache. No paralysis. No paresthesia. Psychiatric: No depression. No anxiety. No mood swings. Endocrine: No abnormal blood sugars. No weight change. No excessive sweating or thirst. No cold intolerance. Physical Examination Gen: This is a 50-year-old male patient ambulating in his room and appears to be in no acute distress. No acute respiratory distress is noted. HEENT: Head is atraumatic, normocephalic. Pupils equal, round. Sclerae is anicteric. Generalized color is lozano. NECK: Supple. No JVD. No lymphadenopathy. No thyromegaly. LUNGS: Expiratory wheeze bilaterally. No accessory muscle usage. No intercostal retractions. HEART: Regular rate and rhythm. Systolic murmur. ABDOMEN: Soft. Bowel sounds are present. No masses. No tenderness. EXTREMITIES: No pedal edema. No calf tenderness. No lower extremity wounds. NEUROLOGICAL: Patient is awake, alert and oriented x3. Cranial nerves 2 through 12 are grossly intact. Assessment and Plan 1. Acute weakness secondary to acute GI bleed. Consult with GI appreciated. Repeat EGD today. Consult with Dr. Biggs for surgical opinion. 2. Acute blood loss anemia from acute GI bleed. Patient is now total of 7 units of packed RBCs. Continue Protonix twice daily. 3. End-stage renal disease on hemodialysis Saturday and Saturday. Consult with nephrology. Patient is undergoing hemodialysis today.. Continue lasix 80 mg daily. One more unit has been ordered today and second unit to be given with hemodialysis. 4. History of anemia of chronic disease with baseline hemoglobin of 8. 5. Hyperphosphatemia. Continue Renvela 3200 mg 3 times daily. 6. Hypertension, hypertensive cardiovascular disease. Continue amlodipine 5 mg twice daily, hydralazine 100 mg 3 times daily, labetalol 100 mg twice daily. 7. History of seizure disorder. Continue Keppra 1000 mg twice daily. 8. History of empyema status post VATS and pericardial window. 9. History of left thalamus stroke. Continue Lipitor 20 mg daily for secondary prevention. 10. Tobacco use and dependence. Nicotine patch ordered as needed as patient is denying need at this time. 11. Chronic thrombocytopenia. Currently stable. 12. DVT prophylaxis. KP hose and SCDs. 13. GI prophylaxis. Protonix 14. CODE STATUS: Full code. 15. COVID-19 infection not present. Discharge plan: Return home Impression and plan of care have been directed as dictated by the signing physician. Doretha Brumfield nurse practitioner acting as scribe for signing physician. Objective - Vital Signs Vital signs: Vital Signs Temp 98.4 F 06/07/20 08:00 Pulse 65 06/07/20 08:00 Resp 18 06/07/20 08:00 BP 146/82 06/07/20 08:00 Pulse Ox 99 06/07/20 08:00 Intake & Output 06/06/20 06/07/20 06/07/20 18:59 06:59 18:59 Intake Total 620 310 Output Total 2200 Balance -1580 310 Intake: Oral 0 Blood Product 620 310 Rc As-1 Unit 310 [id number] Rc As-1 Unit 0 [id number] Rc As-1 Unit 310 [id number] Rc As-3 Unit 310 [id number] Output: Hemodialysis 2200 Other: Voiding Method Toilet Toilet - Labs CBC & Chem 7: 06/07/20 10:50 06/07/20 10:50 Labs: Abnormal Lab Results - Last 24 Hours (Table) 06/04/20 06/06/20 06/06/20 Range/Units 22:15 13:57 23:49 RBC 2.25 L 2.02 L (4.30-5.90) m/uL Hgb 7.3 L D 6.6 L* (13.0-17.5) gm/dL Hct 20.5 L 18.4 L* (39.0-53.0) % RDW 17.6 H 18.5 H (11.5-15.5) % Crossmatch See Detail
[2020-06-07] MEDS ORDERED: LIDOCAINE 1% INJ 10MG/ML (20 ML MDV) ONE (13:16)
[2020-06-07] MEDS ORDERED: PROPOFOL 10 MG/ML 20 ML VIAL IV ONE (13:16)
[2020-06-07] MEDS ORDERED: IV FLUID CONTINUATION 1,000 ML IV ONE ×2 (13:19)
--- NOTE | 2020-06-07 13:25 | PN ---
PROGRESS NOTE Patient is seen for followup for end-stage renal disease. Hemoglobin had dropped again this morning to 6.6. Patient is being transfused packed RBCs. He continues to have ongoing bleeding. Patient is scheduled for EGD today. General surgery has been consulted as well. The patient is being transferred to ICU. At this point, he denies any chest pains or shortness of breath. Some abdominal discomfort is present. On examination today, blood pressure was 154/84, heart rate 72 per minute, patient is afebrile. Examination of the heart S1, S2. Examination of the lungs, bilateral breath sounds are heard. Abdomen is soft, nontender. Examination of lower extremities shows no significant edema. UNION REPRESENTATIVE exam grossly intact. LABS: Show sodium 130, potassium 4.7, BUN 107, serum creatinine 8.87, hemoglobin 6.6 from yesterday. ASSESSMENT: 1. End-stage renal disease, on hemodialysis on a Saturday, Saturday, Saturday schedule. The patient will be scheduled for hemodialysis tomorrow. 2. Gastrointestinal bleed with ongoing bleeding, being transfused another unit of packed RBCs. The patient is going for relook endoscopy today. General surgery has been consulted as well. Patient is being transferred to ICU. There is consideration for possible transfer to tertiary hospital if the bleeding is not controlled. 3. Anemia, blood loss anemia from gastrointestinal bleed. I will repeat another dose of DDAVP today. 4. Chronic kidney disease mineral bone disorder. 5. Hypertension. Continue current medications. 6. History of seizures, maintained on Keppra. PLAN: Repeat DDAVP today and hemodialysis in a.m. Agree with proceeding with General surgery consult as well. MMODL / IJN: [id number] /
--- NOTE | 2020-06-07 13:40 | P.PCN ---
Date of Procedure: 06/07/20 Procedure(s) Performed: BRIEF HISTORY: Patient is a 50-year-old, pleasant, 8 male admitted hospital with ongoing GI bleed. He was admitted to [facility] 4 days ago with acute GI bleed and severe anemia and he underwent an upper endoscopy as well as colonoscopy by with revealed small antral and duodenal ulcer with severe duodenitis and gastritis. Colonoscopy revealed small polyps. Patient was admitted to [facility] 2 days ago with a hemoglobin of 5 g/dL and so far he received 6 units of blood transfusion. He was transferred to the intensive care unit yesterday because of continued black tarry stools and persistent anemia. He scheduled for repeat upper endoscopy today. . PROCEDURE PERFORMED: Esophagogastroduodenoscopy with argon plasma coagulation. PREOPERATIVE DIAGNOSIS: Acute GI bleed/severe symptomatic anemia. IV sedation per anesthesia. PROCEDURE: After informed consent was obtained, the patient was brought into the endoscopy unit. IV sedation was administered by Anesthesia under continuous monitoring. Initially the Olympus GIF-140 video endoscope was inserted into the mouth. Esophagus intubated without any difficulty. It was gradually advanced into the stomach and duodenum and carefully examined. No active bleeding identified. The bulb and the second part of the duodenum had severe duodenitis with polypoid-like appearance of the mucosa in the mid erythematous spots status post argon plasma coagulation. The scope at this time was withdrawn to the stomach, adequately insufflated with air, and upon careful examination, mucosa of the antrum, had severe gastritis with pigmented mucosa and some erythematous areas but no active bleeding. Also there was a 5 mm antral ulcer identified. The,body, cardia and the fundus appeared normal. The scope was then withdrawn into the esophagus. The GE junction was located at 39 cm from the incisors. The esophagus appeared normal. There were no erosions or ulcerations seen and the patient tolerated the procedure well. IMPRESSION: 1. Severe duodenitis with thickened folds and polypoid-like mucosa with erythematous spots status post argon plasma coagulation. 2. Severe antral gastritis and a 5 mm antral ulcer with no active bleeding. RECOMMENDATIONS: The findings of this examination were discussed with the patient as well as his family. At this time will schedule him for a small bowel capsule endoscopy to investigate further.
[2020-06-07] MEDS ORDERED: SIMETHICONE 40 MG/0.6 ML DROPS 2,000 MG/30 ML BOTTLE PO ONE (14:40)
[2020-06-07] MEDS ORDERED: LORazepam 2 MG/ML INJ IV PRN (22:00)
[2020-06-07] MEDS ORDERED: LORazepam 2 MG/ML INJ IV SCH (22:00)
[2020-06-08 00:21] LABS: Anisocytosis Slight; HCT 26.1 % (39.0-53.0); HGB 9.2 gm/dL (13.0-17.5); MCH 32.8 pg (25.0-35.0); MCHC 35.4 g/dL (31.0-37.0); MCV 92.8 fL (80.0-100.0); Mean Platelet Volume 8.3; Platelet Count 144 k/uL (150-450); RBC 2.81 m/uL (4.30-5.90); RDW 17.7 % (11.5-15.5); WBC 7.8 k/uL (3.8-10.6)
[2020-06-08 04:22] LABS: Anisocytosis Slight; Basophils % (A) 0 %; Eosinophils # (A) 0.2 k/uL (0-0.7); Eosinophils % (A) 2 %; HCT 24.6 % (39.0-53.0); HGB 8.5 gm/dL (13.0-17.5); Lymphocytes # (A) 0.6 k/uL (1.0-4.8); Lymphocytes % (A) 6 %; MCH 32.3 pg (25.0-35.0); MCHC 34.6 g/dL (31.0-37.0); MCV 93.6 fL (80.0-100.0); Mean Platelet Volume 7.5; Monocytes # (A) 0.3 k/uL (0-1.0); Monocytes % (A) 3 %; Neutrophils # (A) 8.5 k/uL (1.3-7.7); Neutrophils % (A) 88 %; Platelet Count 142 k/uL (150-450); RBC 2.63 m/uL (4.30-5.90); RDW 17.5 % (11.5-15.5); WBC 9.6 k/uL (3.8-10.6)
[2020-06-08 04:27] LABS: Calcium 7.4 mg/dL (8.4-10.2); Potassium 4.9 mmol/L (3.5-5.1)
[2020-06-08] MEDS: hydrALAZINE HCL 50 MG TAB PO SCH ×3 (06:33→16:55)
[2020-06-08] MEDS: levETIRAcetam 500 MG TAB PO SCH ×2 (06:34→16:55)
[2020-06-08] MEDS: FUROSEMIDE 80 MG TAB PO SCH (06:34)
[2020-06-08] MEDS: amLODIPine 5 MG TAB PO SCH ×2 (06:34→16:56)
[2020-06-08] MEDS: GABAPENTIN 100 MG CAP PO SCH ×2 (06:34→16:56)
[2020-06-08] MEDS: LABETALOL 100 MG TAB PO SCH ×2 (06:34→16:55)
[2020-06-08] MEDS: SEVELAMER 800 MG TAB PO SCH ×3 (06:35→16:55)
[2020-06-08] MEDS: ATORVASTATIN 20 MG TAB PO SCH (06:35)
[2020-06-08] MEDS: clonazePAM 0.5 MG TAB PO SCH ×3 (09:41→20:39)
[2020-06-08] MEDS: PANTOPRAZOLE 40 MG/10 ML VIAL IVP SCH ×2 (09:41→20:42)
--- NOTE | 2020-06-08 11:39 | PN ---
PROGRESS NOTE Patient is seen on hemodialysis. He is tolerating his treatment well. We are going for about 2.5 L. No significant complaints. His repeat hemoglobin was 8.5 g/dL this morning. Patient did have his capsule endoscopy, results are pending. PHYSICAL EXAMINATION: On examination today, blood pressure is 156/81, heart rate 66 per minute, he is afebrile. Examination of the legs shows no significant edema noted. SHIPPING WEIGHER exam grossly intact. LABS: Show sodium 130, potassium 4.9, BUN 117, serum creatinine 10.0, hemoglobin 8.5. ASSESSMENT: 1. End-stage renal disease, on hemodialysis on a Saturday, Saturday, Saturday schedule. 2. Acute gastrointestinal bleed, status post EGD yesterday and status post capsule endoscopy today. patient has received 2 doses of DDAVP. No active bleeding today. 3. Hypertension. 4. History of seizures, maintained on Keppra. 5. CKD mineral bone disorder, currently on Renvela. PLAN: Patient can be discharged post dialysis if cleared by GI. We will follow up on the hemoglobin as outpatient on dialysis. MMODL / IJN: [id number] /
--- NOTE | 2020-06-08 12:08 | P.PN ---
Subjective Progress Note Date: 06/08/20 Principal diagnosis: GI bleeding This is a 50-year-old white male with history of end-stage renal disease, maintained on hemodialysis for the last 10 years. Patient is also known to have history of hypertension, seizure disorder, previous CVA involving the left thalamus, recurrent episodes of fluid overload if he misses dialysis. History of empyema requiring VATS and pericardial window couple of years back. History of tobacco dependence syndrome, chronic atrial fibrillation, patient was recently admitted to [facility] with GI bleeding requiring transfusion, however the patient left home AGAINST MEDICAL ADVICE. He underwent EGD and it showed ulcers in the esophagus stomach and duodenum. He also had colonoscopy and a polyp was removed. Shortly after his EGD, patient insisted on going home and he left AMA. Patient was readmitted today on 06/05/20, mostly complaining of GI bleeding and melena with emesis. Patient was admitted, and since admission the patient has received a total of 7 units of packed RBCs, and he continues to have intermittent episodes of black and maroon colored stools. Considering the amount of blood transfusions, patient was transferred to the ICU, and I was asked to see him on consultation. His last episode of maroon c olored stools was early this morning. Patient remained hemodynamically stable, and in no distress, presently on room air. Seen by gastroenterology, and he is being considered for EGD and possibly capsule study. Patient was reevaluated today on 06/08/20, remains in the ICU, patient underwent EGD yesterday, and he underwent argon coagulation of severe inflammation in the duodenum. Patient has no active bleeding today, hemoglobin is stable, he is on room air, O2 sat is 95%, and he is undergoing hemodialysis while in the ICU. Hemoglobin today is 8.5. It was 9.2 yesterday. Electrolytes are normal. BUN and creatinine are abnormal but will improve with dialysis. Patient did not receive any more blood transfusion beyond the 7 units he received as of yesterday. Objective - Vital Signs Vital signs: Vital Signs Temp 98.3 F 06/08/20 11:33 Pulse 63 06/08/20 11:33 Resp 18 06/08/20 11:33 BP 155/73 06/08/20 11:33 Pulse Ox 100 06/08/20 08:00 Intake & Output 06/07/20 06/08/20 06/08/20 18:59 06:59 18:59 Intake Total 760 300 Output Total 101 0 1999 Balance 659 300 -2000 Weight 75 kg Intake: IV 150 Intake, IV Titration 50 Amount Desmopressin Acetate 20 50 mcg In Sodium Chloride 0. 9% 50 ml @ 200 mls/hr IVPB ONCE ONE Rx#: [id number] Oral 250 300 Blood Product 310 Rc As-1 Unit 310 [id number] Output: Urine 101 0 Hemodialysis 1999 Other: Voiding Method Urinal Urinal Urinal # Voids 1 - Exam Physical Exam: Revealed a 50-year-old white male in no distress, pleasant. Presently on room air Head: Atraumatic, normocephalic. HEENT:[Neck is supple.] [No neck masses.] [No thyromegaly.] [No JVD.]EOMI, no icterus. Chest: [Clear throughout, no crackles, no rhonchi, no wheezes.], Symmetrical chest expansion. Cardiac Exam: [Normal S1 and S2, no S3 gallop, 2/6 systolic murmur thought the precordium. Abdomen: [Soft, nontender, no megaly, no rebound, no guarding, normal bowel sounds.] Extremities: [No clubbing, no edema, no cyanosis.] Right forearm AV fistula is noted. Neurological Exam: [No focal neurologic deficit.] Alert and oriented 3. Psychiatric: Normal mood, affect and normal mental status examination. Skin: No rashes. - Labs CBC & Chem 7: 06/08/20 03:45 06/08/20 03:45 Labs: Abnormal Lab Results - Last 24 Hours (Table) 06/08/20 06/08/20 06/08/20 Range/Units 00:05 03:45 03:45 RBC 2.81 L 2.63 L (4.30-5.90) m/uL Hgb 9.2 L 8.5 L (13.0-17.5) gm/dL Hct 26.1 L 24.6 L (39.0-53.0) % RDW 17.7 H 17.5 H (11.5-15.5) % Plt Count 144 L 142 L (150-450) k/uL Neutrophils # 8.5 H (1.3-7.7) k/uL Lymphocytes # 0.6 L (1.0-4.8) k/uL Sodium 130 L (137-145) mmol/L Chloride 96 L (98-107) mmol/L BUN 117 H* (9-20) mg/dL Creatinine 10.02 H* (0.66-1.25) mg/dL Glucose 129 H (74-99) mg/dL Calcium 7.4 L (8.4-10.2) mg/dL Assessment and Plan Assessment: Impression: Acute blood loss anemia and acute GI bleeding. Patient received a total of 7 units of packed RBCs since admission. None in the last 24 hours. Status post argon plasma coagulation for severe duodenitis and presumptive upper GI bleeding. Severe gastritis and 5 mm antral ulcer but no active bleeding on EGD. End-stage renal disease, on hemodialysis. Benign essential hypertension. History of seizure disorder. History of empyema requiring decortication and pericardial window History of CVA involving left thalamus Tobacco dependence syndrome. Recommendation: Continue present treatment plan Continue Protonix twice a day. Reviewed the results and findings of the EGD yesterday Continue to monitor the patient in the ICU, for the next 24 hours. Dialysis on a regular basis 3 times per week. We'll continue to follow. Time with Patient: Less than 30
--- NOTE | 2020-06-08 12:44 | P.PN ---
Subjective Progress Note Date: 06/08/20 History of Present Illness This is a 50-year-old male patient of Dr. Holguin with past medical history of end-stage renal disease secondary to kidney stones on hemodialysis fo r 10 years 3 times weekly- Mo, We, Fr, hypertension, hypertensive cardiovascular disease, seizure disorder, left thalamus stroke, previous admission for acute hypoxic respiratory failure secondary to fluid overload from missing dialysis treatments requiring mechanical ventilation, history of empyema status post VATS and pericardial window, history of chronic thrombocytopenia, tobacco use and dependence-continues to be an active smoker, paroxysmal atrial fibrillation in February 2018. Patient was admitted on May 30 and signed out AMA on May 31 which time he was treated for acute GI bleed status post transfusion. He has subsequently been admitted to [facility] where he was also treated for acute GI bleed and was transfused. He underwent EGD that did show ulcers in the esophagus, stomach and duodenum. He also had a colonoscopy with polyp removal. Patient signed out AMA from [facility] yesterday. He presented last evening to [facility] for GI bleed with melena emesis. Patient was given Ativan in the emergency center and is sedated this morning but arousable to verbal stimuli. Discussed current condition with patient's at the bedside. Patient continues to smoke a half a pack per day. Patient came into [facility] emergency center for evaluation found to be afebrile, heart rate 80, blood pressure 154/80, pulse ox 100% on 2L. WBC 8.6, hemoglobin 5.0, platelet count 237. Sodium 134, potassium 4.6, chloride 7, CO2 22, BUN 147 creatinine 9.22. Glucose 134. CK 253. Patient has been admitted to the cardiac stepdown unit and consulted nephrology and GI. Patient has been transfused 2 units packed RBCs with hemoglobin of 6.2. One more unit has been ordered today and second unit to be given with hemodialysis. 06/06: Patient is receiving hemodialysis this morning. His repeat hemoglobin this morning is 5.2 and he scheduled for 2 units of packed RBCs. The patient has been seen by GI with plan for possible second look endoscopy. He has been afebrile, heart rate 68, blood pressure 145/74, pulse ox 100% on 3 L nasal cannula. Long discussion with the patient and his regarding why he is signing out AMA and not completing his course of treatment. Patient states that he feels he is being neglected and on not getting treatment as quickly as he should. He stated he waited for a half hours before he had his testing done at [facility]. Instructed patient that he needs to be stabilized before he goes for any types of procedures and he needs to be patient and compliant with coarse. He does run the risk of going home and dying if he continues to sign out AMA. 06/07: Patient is status post transfusion of 6 units of packed RBCs and repeat hemoglobin is 6.6. He does have 1 unit ordered for today. We will plan to transfer the patient into intensive care unit and an consult with Dr. Fraire. He is scheduled for EGD today. Surgical consult and with Dr. Biggs who is seen him in the past. Discussed with Dr. Figueroa and she will order a dose of DDAVP. Other lab work reveals sodium 1:30, chloride 96, CO2 24, potassium 4.7, platelet count 146. Patient is afebrile, heart rate 67, blood pressure 154/84, pulse ox 99% on room air. 06/08: Patient remains in intensive care unit. Yesterday he underwent EGD with Dr. Crowe that revealed severe duodenitis with thickened folds and polypoid-like mucosa with erythematous spots status post argon plasma coagulation. Severe antral gastritis and a 5 mm antral ulcer with no active bleeding. Recommend small bowel capsule endoscopy for later today. Hemoglobin this morning is at 8.5 and hemoglobin ordered for every 12 hours. He did not require any transfusion overnight and is status post total transfusion of [address] Fraire plans to keep him in ICU for another 24 hours. Discussed discharge planning patient agrees that he will not sign out AMA. Earliest discharge will be tomorrow. Patient is undergoing hemodialysis. Review of Systems Constitutional: No fever, no chills, no night sweats. No weight change. Reports weakness, Reports fatigue. Denies daytime sleepiness. EENT: No headache. No blurred vision or double vision, no loss of vision. No loss of Hearing, no ringing in the ears, no dizziness. No nasal drainage or congestion. No epistaxis. No sore throat. Lungs: No shortness of breath, cough, no sputum production. No wheezing. Cardiovascular: No chest pain, no lower extremity edema. No palpitations. No paroxysmal nocturnal dyspnea. No orthopnea. No lightheadedness or dizziness. No syncopal episodes. Abdominal: No abdominal pain. Denies nausea, vomiting. Denies hematemesis. No diarrhea. No constipation. No bloody or tarry stools. Reports loss of appetite. Musculoskeletal: No myalgias. No muscle weakness, no gait dysfunction, no frequent falls. No back pain. Reports neck pain. Integumentary: No wounds, no lesions. No rash or pruritus. No unusual bru ising. No change in hair or nails. Neurologic: No aphasia. No facial droop. No change in mentation. No head injury. No headache. No paralysis. No paresthesia. Psychiatric: No depression. No anxiety. No mood swings. Endocrine: No abnormal blood sugars. No weight change. No excessive sweating or thirst. No cold intolerance. Physical Examination Gen: This is a 50-year-old male patient ambulating in his room and appears to be in no acute distress. No acute respiratory distress is noted. HEENT: Head is atraumatic, normocephalic. Pupils equal, round. Sclerae is anicteric. Generalized color is lozano. NECK: Supple. No JVD. No lymphadenopathy. No thyromegaly. LUNGS: Expiratory wheeze bilaterally. No accessory muscle usage. No intercostal retractions. HEART: Regular rate and rhythm. Systolic murmur. ABDOMEN: Soft. Bowel sounds are present. No masses. No tenderness. EXTREMITIES: No pedal edema. No calf tenderness. No lower extremity wounds. NEUROLOGICAL: Patient is awake, alert and oriented x3. Cranial nerves 2 through 12 are grossly intact. Assessment and Plan 1. Acute weakness secondary to acute GI bleed. Consult with GI appreciated. Repeat EGD as above. Consult with Dr. Biggs for surgical opinion. 2. Acute blood loss anemia from acute GI bleed. Patient is now total of 7 units of packed RBCs. Continue Protonix twice daily. 3. End-stage renal disease on hemodialysis Saturday and Saturday. Consult with nephrology. Patient is undergoing hemodialysis today.. Continue lasix 80 mg daily. One more unit has been ordered today and second unit to be given with hemodialysis. 4. History of anemia of chronic disease with baseline hemoglobin of 8. 5. Hyperphosphatemia. Continue Renvela 3200 mg 3 times daily. 6. Hypertension, hypertensive cardiovascular disease. Continue amlodipine 5 mg twice daily, hydralazine 100 mg 3 times daily, labetalol 100 mg twice daily. 7. History of seizure disorder. Continue Keppra 1000 mg twice daily. 8. History of empyema status post VATS and pericardial window. 9. History of left thalamus stroke. Continue Lipitor 20 mg daily for secondary prevention. 10. Tobacco use and dependence. Nicotine patch ordered as needed as patient is denying need at this time. 11. Chronic thrombocytopenia. Currently stable. 12. DVT prophylaxis. KP hose and SCDs. 13. GI prophylaxis. Protonix 14. CODE STATUS: Full code. 15. COVID-19 infection not present. Discharge plan: Return home Impression and plan of care have been directed as dictated by the signing physician. Doretha Brumfield nurse practitioner acting as scribe for signing physi nargis. Objective - Vital Signs Vital signs: Vital Signs Temp 97.4 F L 06/08/20 04:00 Pulse 80 06/08/20 04:00 Resp 26 H 06/08/20 04:00 BP 144/86 06/08/20 04:00 Pulse Ox 95 06/08/20 04:00 Intake & Output 06/07/20 06/08/20 06/08/20 18:59 06:59 18:59 Intake Total 760 300 Output Total 101 0 Balance 659 300 Weight 75 kg Intake: IV 150 Intake, IV Titration 50 Amount Desmopressin Acetate 20 50 mcg In Sodium Chloride 0. 9% 50 ml @ 200 mls/hr IVPB ONCE ONE Rx#: [id number] Oral 250 300 Blood Product 310 Rc As-1 Unit 310 [id number] Output: Urine 101 0 Other: Voiding Method Urinal Urinal # Voids 1 - Labs CBC & Chem 7: 06/08/20 03:45 06/08/20 03:45 Labs: Abnormal Lab Results - Last 24 Hours (Table) 06/04/20 06/07/20 06/07/20 Range/Units 22:15 10:50 10:50 RBC 2.80 L (4.30-5.90) m/uL Hgb 9.1 L D (13.0-17.5) gm/dL Hct 25.7 L (39.0-53.0) % RDW 17.4 H (11.5-15.5) % Plt Count 146 L (150-450) k/uL Neutrophils # (1.3-7.7) k/uL Lymphocytes # (1.0-4.8) k/uL Sodium 130 L (137-145) mmol/L Chloride 96 L (98-107) mmol/L BUN 107 H* (9-20) mg/dL Creatinine 8.87 H* (0.66-1.25) mg/dL Glucose (74-99) mg/dL Calcium 7.5 L (8.4-10.2) mg/dL Total Protein 4.1 L (6.3-8.2) g/dL Albumin 2.4 L (3.5-5.0) g/dL Crossmatch See Detail 06/08/20 06/08/20 06/08/20 Range/Units 00:05 03:45 03:45 RBC 2.81 L 2.63 L (4.30-5.90) m/uL Hgb 9.2 L 8.5 L (13.0-17.5) gm/dL Hct 26.1 L 24.6 L (39.0-53.0) % RDW 17.7 H 17.5 H (11.5-15.5) % Plt Count 144 L 142 L (150-450) k/uL Neutrophils # 8.5 H (1.3-7.7) k/uL Lymphocytes # 0.6 L (1.0-4.8) k/uL Sodium 130 L (137-145) mmol/L Chloride 96 L (98-107) mmol/L BUN 117 H* (9-20) mg/dL Creatinine 10.02 H* (0.66-1.25) mg/dL Glucose 129 H (74-99) mg/dL Calcium 7.4 L (8.4-10.2) mg/dL Total Protein (6.3-8.2) g/dL Albumin (3.5-5.0) g/dL Crossmatch
[2020-06-08 15:54] LABS: Anisocytosis Slight; HCT 27.5 % (39.0-53.0); HGB 9.4 gm/dL (13.0-17.5); MCH 32.2 pg (25.0-35.0); MCHC 34.1 g/dL (31.0-37.0); MCV 94.6 fL (80.0-100.0); Macrocytosis Slight; Mean Platelet Volume 7.8; Platelet Count 150 k/uL (150-450); RDW 17.7 % (11.5-15.5); WBC 8.2 k/uL (3.8-10.6)
--- NOTE | 2020-06-08 22:20 | PN ---
PROGRESS NOTE DATE OF DICTATION: 06/08/2020 Patient is a 50-year-old pleasant white male admitted to the hospital with acute GI bleed, multiple episodes of black tarry stools. He received a total of 7 units of PRBC transfusion. Last hemoglobin was 9.4 g/dL. He underwent an EGD and colonoscopy by Dr. Travis 5 days ago at [facility] that showed severe gastritis, duodenitis with duodenal ulcer. He had a repeat upper endoscopy by me yesterday afternoon that showed severe gastritis with a small antral ulcer and severe duodenitis with thickened duodenal folds and polypoid-like appearance with erythema, status post argon plasma coagulation. Following the upper endoscopy, he had a small bowel capsule endoscopy done. The small bowel capsule endoscopy revealed no evidence of active bleeding. No other mucosal lesions identified in the small bowel. In the meantime, patient is doing well. He had no further episodes of bleeding. No abdominal pain. No nausea, vomiting. PHYSICAL EXAMINATION: Appears comfortable. No apparent distress. VITAL SIGNS: Stable. Blood pressure is 132/86, pulse rate 84 per minute and afebrile. HEENT examination unremarkable. Conjunctivae pink. Sclerae anicteric. Oral cavity no lesions. NECK: No JVD or lymph node enlargement. CHEST: Clear to auscultation. HEART: Regular rate and rhythm. ABDOMEN: Soft. Bowel sounds are positive. No organomegaly. EXTREMITIES: No pedal edema. NEUROLOGIC: Alert and oriented x3. No focal deficits. LABS: Labs from today show WBC 8.2, hemoglobin 9.4, platelets 150. BUN and creatinine are improving at 117 and 10.02. IMPRESSION: 1. Acute gastrointestinal bleed related to severe gastritis and duodenitis as well as an antral ulcer, status post esophagogastroduodenoscopy yesterday with argon plasma coagulation of duodenitis. Small bowel capsule endoscopy done following the EGD did not show any active bleeding or significant small bowel pathology. 2. End-stage renal disease, on hemodialysis. 3. History of hypertension. 4. History of seizure disorder. RECOMMENDATIONS: 1. Continue with Protonix 40 mg twice daily. 2. Advance diet as tolerated. 3. Discussed with the patient small bowel capsule endoscopy results. 4. If hemoglobin is stable, he can be discharged home tomorrow with outpatient followup with Dr. Travis in 2 weeks. Thank you for this consultation. MMODL / IJN: [id number] /
[2020-06-09] MEDS ORDERED: amLODIPine 5 MG TAB PO STA
[2020-06-09 03:39] LABS: Anisocytosis Slight; HCT 25.4 % (39.0-53.0); HGB 8.6 gm/dL (13.0-17.5); MCH 32.4 pg (25.0-35.0); MCHC 34.1 g/dL (31.0-37.0); MCV 95.1 fL (80.0-100.0); Macrocytosis Slight; Mean Platelet Volume 7.3; Platelet Count 135 k/uL (150-450); RBC 2.67 m/uL (4.30-5.90); RDW 17.7 % (11.5-15.5)
[2020-06-09] MEDS: hydrALAZINE HCL 50 MG TAB PO SCH (06:05)
[2020-06-09] MEDS: LABETALOL 100 MG TAB PO SCH (06:05)
[2020-06-09] MEDS: amLODIPine 5 MG TAB PO SCH (06:06)
[2020-06-09] MEDS: levETIRAcetam 500 MG TAB PO SCH (06:06)
[2020-06-09] MEDS: ATORVASTATIN 20 MG TAB PO SCH (06:06)
[2020-06-09] MEDS: GABAPENTIN 100 MG CAP PO SCH (06:06)
[2020-06-09] MEDS: FUROSEMIDE 80 MG TAB PO SCH (06:07)
[2020-06-09] MEDS: PANTOPRAZOLE 40 MG/10 ML VIAL IVP SCH (08:56)
[2020-06-09] MEDS: SEVELAMER 800 MG TAB PO SCH (08:56)
[2020-06-09] MEDS: clonazePAM 0.5 MG TAB PO SCH (08:57)
[2020-06-09 09:14] VITALS: BP 174/76; PULSE 68; RESP 16; TEMP 97.9
[2020-06-09] MEDS ORDERED: LABETALOL 100 MG TAB PO STA (09:17)
[2020-06-09 09:46] LABS: Anisocytosis Slight; HCT 27.1 % (39.0-53.0); HGB 9.3 gm/dL (13.0-17.5); MCH 33.1 pg (25.0-35.0); MCHC 34.6 g/dL (31.0-37.0); MCV 95.8 fL (80.0-100.0); Macrocytosis Slight; Mean Platelet Volume 8.1; Platelet Count 127 k/uL (150-450); RBC 2.82 m/uL (4.30-5.90); RDW 17.6 % (11.5-15.5); WBC 9.5 k/uL (3.8-10.6)
--- NOTE | 2020-06-09 11:34 | P.PN ---
Subjective Progress Note Date: 06/09/20 Principal diagnosis: GI bleeding This is a 50-year-old white male with history of end-stage renal disease, maintained on hemodialysis for the last 10 years. Patient is also known to have history of hypertension, seizure disorder, previous CVA involving the left thalamus, recurrent episodes of fluid overload if he misses dialysis. History of empyema requiring VATS and pericardial window couple of years back. History of tobacco dependence syndrome, chronic atrial fibrillation, patient was recently admitted to [facility] with GI bleeding requiring transfusion, however the patient left home AGAINST MEDICAL ADVICE. He underwent EGD and it showed ulcers in the esophagus stomach and duodenum. He also had colonoscopy and a polyp was removed. Shortly after his EGD, patient insisted on going home and he left AMA. Patient was readmitted today on 06/05/20, mostly complaining of GI bleeding and melena with emesis. Patient was admitted, and since admission the patient has received a total of 7 units of packed RBCs, and he continues to have intermittent episodes of black and maroon colored stools. Considering the amount of blood transfusions, patient was transferred to the ICU, and I was asked to see him on consultation. His last episode of maroon c olored stools was early this morning. Patient remained hemodynamically stable, and in no distress, presently on room air. Seen by gastroenterology, and he is being considered for EGD and possibly capsule study. Patient was reevaluated today on 06/08/20, remains in the ICU, patient underwent EGD yesterday, and he underwent argon coagulation of severe inflammation in the duodenum. Patient has no active bleeding today, hemoglobin is stable, he is on room air, O2 sat is 95%, and he is undergoing hemodialysis while in the ICU. Hemoglobin today is 8.5. It was 9.2 yesterday. Electrolytes are normal. BUN and creatinine are abnormal but will improve with dialysis. Patient did not receive any more blood transfusion beyond the 7 units he received as of yesterday. Reevaluated today on 06/09/20, patient remains in the ICU, stable, no bleeding and his hemoglobin is 8.6. Patient has not demonstrated any GI bleeding since his last EGD and argon plasma coagulation. Today the patient is hemodynamically stable, denies any specific complaints, hence we'll likely recommend the patient be discharged home or at least transferred out of the ICU to a regular medical floor until his primary care physician discharges. Objective - Vital Signs Vital signs: Vital Signs Temp 97.9 F 06/09/20 08:00 Pulse 68 06/09/20 09:00 Resp 16 06/09/20 08:00 BP 174/76 06/09/20 08:00 Pulse Ox 98 06/09/20 08:00 Intake & Output 06/08/20 06/09/20 06/09/20 18:59 06:59 18:59 Intake Total 180 Output Total 1999 0 Balance -2000 180 Intake: Oral 180 Output: Urine 0 Hemodialysis 1999 Other: Voiding Method Urinal Urinal Urinal # Voids 1 # Bowel Movements 1 1 - Exam Physical Exam: Revealed a 50-year-old white male in no distress, pleasant. Presently on room air Head: Atraumatic, normocephalic. HEENT:[Neck is supple.] [No neck masses.] [No thyromegaly.] [No JVD.]EOMI, no icterus. Chest: [Clear throughout, no crackles, no rhonchi, no wheezes.], Symmetrical chest expansion. Cardiac Exam: [Normal S1 and S2, no S3 gallop, 2/6 systolic murmur thought the precordium. Abdomen: [Soft, nontender, no megaly, no rebound, no guarding, normal bowel sounds.] Extremities: [No clubbing, no edema, no cyanosis.] Right forearm AV fistula is noted. Neurological Exam: [No focal neurologic deficit.] Alert and oriented 3. Psychiatric: Normal mood, affect and normal mental status examination. Skin: No rashes. - Labs CBC & Chem 7: 06/09/20 09:18 06/08/20 03:45 Labs: Abnormal Lab Results - Last 24 Hours (Table) 06/08/20 06/09/20 06/09/20 Range/Units 15:43 03:30 09:18 RBC 2.90 L 2.67 L 2.82 L (4.30-5.90) m/uL Hgb 9.4 L 8.6 L 9.3 L (13.0-17.5) gm/dL Hct 27.5 L 25.4 L 27.1 L (39.0-53.0) % RDW 17.7 H 17.7 H 17.6 H (11.5-15.5) % Plt Count 135 L 127 L (150-450) k/uL Assessment and Plan Assessment: Impression: Acute blood loss anemia and acute GI bleeding. Patient received a total of 7 units of packed RBCs since admission. None in the last 24 hours. Status post argon plasma coagulation for severe duodenitis and presumptive upper GI bleeding. Severe gastritis and 5 mm antral ulcer but no active bleeding on EGD. End-stage renal disease, on hemodialysis. Benign essential hypertension. History of seizure disorder. History of empyema requiring decortication and pericardial window History of CVA involving left thalamus Tobacco dependence syndrome. Recommendation: Continue Protonix twice a day. Cleared for discharge are the ICU or possibly discharged home. Time with Patient: Less than 30
--- NOTE | 2020-06-09 12:27 | PN ---
PROGRESS NOTE Patient is seen for followup for end-stage renal disease. He is cleared for discharge. Awaiting results of capsule endoscopy. No active bleeding noted. PHYSICAL EXAMINATION: Blood pressure is 174/76, heart rate 75 per minute, he is afebrile. Examination shows no evidence of edema bilateral lower extremities. [employer] exam grossly intact. LABS: Show hemoglobin 9.3 g/dL today. ASSESSMENT: 1. End-stage renal disease, on hemodialysis on a Saturday, Saturday, Saturday schedule. 2. Acute gastrointestinal bleed being followed by GI, status post capsule endoscopy. 3. Hypertension uncontrolled. Increase labetalol to 200 mg b.i.d. 4. CKD mineral bone disorder. PLAN: Patient can be discharged. He will follow up as outpatient for hemodialysis tomorrow. We will give him an additional dose of labetalol prior to discharge. MMODL / IJN: [id number] /
--- NOTE | 2020-06-09 13:25 | P.DS ---
Providers Date of admission: 06/05/20 02:14 Expected date of discharge: 06/09/20 Attending physician: Shanae Mayorga Consults: 06/04/20 23:13 Consult Physician Routine Consulting Provider: Ricardo Travis Consult Reason/Comments: GI bleed Do you want consulting provider notified?: Yes 06/05/20 01:54 Consult Physician Routine Consulting Provider: Maricarmen Figueroa Consult Reason/Comments: esrd Do you want consulting provider notified?: Yes 06/07/20 08:35 Consult Physician Routine Consulting Provider: Jameson Biggs Consult Reason/Comments: GIB, might need surgery Do you want consulting provider notified?: Yes 06/08/20 08:02 Consult Physician Routine Consulting Provider: Ady Fraire Consult Reason/Comments: ICU Do you want consulting provider notified?: Yes Primary care physician: Jaylen Holguin [facility] Course: History of Present Illness This is a 50-year-old male patient of Dr. Holguin with past medical history of end-stage renal disease secondary to kidney stones on hemodialysis for 10 years 3 times weekly- Mo, We, Fr, hypertension, hypertensive cardiovascular disease, seizure disorder, left thalamus stroke, previous admiss ion for acute hypoxic respiratory failure secondary to fluid overload from missing dialysis treatments requiring mechanical ventilation, history of empyema status post VATS and pericardial window, history of chronic thrombocytopenia, tobacco use and dependence-continues to be an active smoker, paroxysmal atrial fibrillation in February 2018. Patient was admitted on May 30 and signed out AMA on May 31 which time he was treated for acute GI bleed status post transfusion. He has subsequently been admitted to [facility] where he was also treated for acute GI bleed and was transfused. He underwent EGD that did show ulcers in the esophagus, stomach and duodenum. He also had a colonoscopy with polyp removal. Patient signed out AMA from [facility] yesterday. He presented last evening to [facility] for GI bleed with melena emesis. Patient was given Ativan in the emergency center and is sedated this morning but arousable to verbal stimuli. Discussed current condition with patient's at the bedside. Patient continues to smoke a half a pack per day. Patient came into [facility] emergency center for evaluation found to be afebrile, heart rate 80, blood pressure 154/80, pulse ox 100% on 2L. WBC 8.6, hemoglobin 5.0, platelet count 237. Sodium 134, potassium 4.6, chloride 7, CO2 22, BUN 147 creatinine 9.22. Glucose 134. CK 253. Patient has been admitted to the cardiac stepdown unit and consulted nephrology and GI. Patient has been transfused 2 units packed RBCs with hemoglobin of 6.2. One more unit has been ordered today and second unit to be given with hemodialysis. 06/06: Patient is receiving hemodialysis this morning. His repeat hemoglobin this morning is 5.2 and he scheduled for 2 units of packed RBCs. The patient has been seen by GI with plan for possible second look endoscopy. He has been afebrile, heart rate 68, blood pressure 145/74, pulse ox 100% on 3 L nasal cannula. Long discussion with the patient and his regarding why he is signing out AMA and not completing his course of treatment. Patient states that he feels he is being neglected and on not getting treatment as quickly as he should. He stated he waited for a half hours before he had his testing done at [facility]. Instructed patient that he needs to be stabilized before he goes for any types of procedures and he needs to be patient and compliant with coarse. He does run the risk of going home and dying if he continues to sign out AMA. 06/07: Patient is status post transfusion of 6 units of packed RBCs and repeat hemoglobin is 6.6. He does have 1 unit ordered for today. We will plan to transfer the patient into intensive care unit and an consult with Dr. Fraire. He is scheduled for EGD today. Surgical consult and with Dr. Biggs who is seen him in the past. Discussed with Dr. Figueroa and she will order a dose of DDAVP. Other lab work reveals sodium 1:30, chloride 96, CO2 24, potassium 4.7, platelet count 146. Patient is afebrile, heart rate 67, blood pressure 154/84, pulse ox 99% on room air. 06/08: Patient remains in intensive care unit. Yesterday he underwent EGD with Dr. Crowe that revealed severe duodenitis with thickened folds and polypoid-like mucosa with erythematous spots status post argon plasma coagulation. Severe antral gastritis and a 5 mm antral ulcer with no active bleeding. Recommend small bowel capsule endoscopy for later today. Hemoglobin this morning is at 8.5 and hemoglobin ordered for every 12 hours. He did not require any transfusion overnight and is status post total transfusion of [address] Fraire plans to keep him in ICU for another 24 hours. Discussed discharge planning patient agrees that he will not sign out AMA. Earliest discharge will be tomorrow. Patient is undergoing hemodialysis. 06/09: Patient has remained in the intensive care unit as there are no beds available outside. He has been cleared for discharge by pulmonary medicine, general surgery and nephrology. Capsule endoscopy was negative. Patient has been cleared for discharge by GI. Repeat hemoglobin is 9.3. Blood pressure has been running high 174/76 and labetalol increased to 200 mg twice daily. Patient will be discharged home today in stable condition. Assessment and Plan 1. Acute weakness secondary to acute GI bleed. 2. Acute blood loss anemia from acute GI bleed. Patient is now total of 7 units of packed RBCs. 3. End-stage renal disease on hemodialysis Saturday and Saturday. 4. History of anemia of chronic disease with baseline hemoglobin of 8. 5. Hyperphosphatemia. 6. Hypertension, hypertensive cardiovascular disease. 7. History of seizure disorder. 8. History of empyema status post VATS and pericardial window. 9. History of left thalamus stroke. 10. Tobacco use and dependence. 11. Chronic thrombocytopenia. 12. COVID-19 infection not present. Discharge plan: home Impression and plan of care have been directed as dictated by the signing physician. Doretha Brumfield nurse practitioner acting as scribe for signing physician. Patient Condition at Discharge: Good Plan - Discharge Summary Discharge Rx Participant: No New Discharge Prescriptions: New Nicotine 21Mg/24Hr Patch [Habitrol] 1 patch TRANSDERM DAILY PRN #30 patch PRN Reason: Nicotine Cravings Labetalol [Trandate] 200 mg PO BID@0700,1700 #60 tablet Continue Sevelamer [Renvela] 3,200 mg PO AC-TID Furosemide [Lasix] 80 mg PO DAILY@0700 hydrALAZINE HCL [Apresoline] 100 mg PO TID@0700,1200,1700 levETIRAcetam 1,000 mg PO BID@0700,1700 Pantoprazole [Protonix] 40 mg PO DAILY@0700 Ipratropium-Albuterol Nebulize [Duoneb 0.5 mg-3 mg/3 ml Soln] 3 ml INHALATION RT-QID PRN PRN Reason: Shortness Of Breath methocarbamoL [Robaxin] 750 mg PO TID@0700,1200,1700 PRN PRN Reason: Pain Acetaminophen-Codeine 300-30mg [Tylenol w/codeine #3] 1 tab PO Q8HR PRN PRN Reason: Pain Acetaminophen Tab [Tylenol] 650 mg PO Q6HR PRN tab PRN Reason: Mild Pain Or Fever > 100.5 Sevelamer Carbonate 1,600 mg PO BID PRN PRN Reason: with snacks Gabapentin [Neurontin] 100 mg PO BID@0700,1700 Atorvastatin [Lipitor] 20 mg PO DAILY@0700 amLODIPine [Norvasc] 5 mg PO BID@0700,1700 Discontinued Labetalol [Trandate] 100 mg PO BID@0700,1700 Discharge Medication List Furosemide [Lasix] 80 mg PO DAILY@0700 06/16/19 [History] Sevelamer [Renvela] 3,200 mg PO AC-TID 06/16/19 [History] Acetaminophen-Codeine 300-30mg [Tylenol w/codeine #3] 1 tab PO Q8HR PRN 04/08/20 [History] Ipratropium-Albuterol Nebulize [Duoneb 0.5 mg-3 mg/3 ml Soln] 3 ml INHALATION RT-QID PRN 04/08/20 [History] Pantoprazole [Protonix] 40 mg PO DAILY@0700 04/08/20 [History] hydrALAZINE HCL [Apresoline] 100 mg PO TID@0700,1200,1700 04/08/20 [History] levETIRAcetam 1,000 mg PO BID@0700,1700 04/08/20 [History] methocarbamoL [Robaxin] 750 mg PO TID@0700,1200,1700 PRN 04/08/20 [History] Acetaminophen Tab [Tylenol] 650 mg PO Q6HR PRN tab 04/09/20 [Rx] Atorvastatin [Lipitor] 20 mg PO DAILY@0700 05/30/20 [History] Gabapentin [Neurontin] 100 mg PO BID@0700,1700 05/30/20 [History] Sevelamer Carbonate 1,600 mg PO BID PRN 05/30/20 [History] amLODIPine [Norvasc] 5 mg PO BID@0700,1700 05/30/20 [History] Labetalol [Trandate] 200 mg PO BID@0700,1700 #60 tablet 06/09/20 [Rx] Nicotine 21Mg/24Hr Patch [Habitrol] 1 patch TRANSDERM DAILY PRN #30 patch 06/09/20 [Rx] Follow up Appointment(s)/Referral(s): Jaylen Holguin MD [Primary Care Provider] - 1 Week (Please call and make appointment) Ambulatory/Diagnostic Orders: Complete Blood Count w/diff [LAB.AMB] Location: None Selected Patient Instructions/Handouts: Gastrointestinal Bleeding (DC) Activity/Diet/Wound Care/Special Instructions: CBC lab draw at dialysis twice a week Discharge Disposition: HOME SELF-CARE
[2020-06-09] MEDS ORDERED: LABETALOL 100 MG TAB PO SCH (17:00)
== END 2020-06-09 10:37 | disposition home or self-care (01) | DRG 377 ==
LOC: EC 22:06 → 3SCARD 06-05 02:14 → 2SICU 06-07 09:22
PROVIDERS: ADMIT Internal Medicine; ATTEND Internal Medicine
PROC: 30233N1 Transfusion of Nonautologous Red Blood Cells into Peripheral Vein, Percutaneous Approach (ICD-10-PCS; 2020-06-04)
PROC: 5A1D70Z Performance of Urinary Filtration, Intermittent, Less than 6 Hours Per Day (ICD-10-PCS; 2020-06-06)
PROC: 0W3P8ZZ Control Bleeding in Gastrointestinal Tract, Via Natural or Artificial Opening Endoscopic (ICD-10-PCS; principal; 2020-06-07 09:05)
DX: K29.81 Duodenitis with bleeding (principal); N18.6 End stage renal disease; D62 Acute posthemorrhagic anemia; I13.11 Hypertensive heart and chronic kidney disease without heart failure, with stage 5 chronic kidney disease, or end stage renal disease; I48.20 Chronic atrial fibrillation, unspecified; D63.8 Anemia in other chronic diseases classified elsewhere; D69.6 Thrombocytopenia, unspecified; E78.00 Pure hypercholesterolemia, unspecified; E78.5 Hyperlipidemia, unspecified; E83.39 Other disorders of phosphorus metabolism; F17.210 Nicotine dependence, cigarettes, uncomplicated; E88.89 Other specified metabolic disorders; K21.9 Gastro-esophageal reflux disease without esophagitis; G40.909 Epilepsy, unspecified, not intractable, without status epilepticus; I48.0 Paroxysmal atrial fibrillation; Z11.59 Encounter for screening for other viral diseases; K29.71 Gastritis, unspecified, with bleeding; K57.90 Diverticulosis of intestine, part unspecified, without perforation or abscess without bleeding; Z86.010 Personal history of colon polyps; K29.01 Acute gastritis with bleeding; M89.9 Disorder of bone, unspecified; Z79.899 Other long term (current) drug therapy; Z80.7 Family history of other malignant neoplasms of lymphoid, hematopoietic and related tissues; Z82.3 Family history of stroke; Z84.1 Family history of disorders of kidney and ureter; Z87.11 Personal history of peptic ulcer disease; Z87.442 Personal history of urinary calculi; Z99.2 Dependence on renal dialysis; Z86.73 Personal history of transient ischemic attack (TIA), and cerebral infarction without residual deficits; M48.00 Spinal stenosis, site unspecified; G89.29 Other chronic pain; H53.009 Unspecified amblyopia, unspecified eye; Z88.5 Allergy status to narcotic agent
CPT/HCPCS: 36415; 36430; 43270; 71045; 80048; 80053; 82150; 83605; 83690; 85025; 85027; 85610; 85730; 86850; 86900; 86901; 86920; 90935; 91110; 93005; 94640; 96374; 96375; 99291

== ENCOUNTER 2020-08-30 10:57 | Emergency (ER) | payer BC, MEDICARE ==
[2020-08-30 11:14] VITALS: BP 177/98; PULSE 76; RESP 18; TEMP 98.4
--- NOTE | 2020-08-30 11:26 | ED ---
General Adult HPI - General Stated complaint: Wanting COVID test Time Seen by Provider: 08/30/20 11:08 Source: patient, RN notes reviewed Mode of arrival: ambulatory Limitations: no limitations - History of Present Illness Initial comments: 50-year-old male present emergency department for COVID testing. Patient states he went to dialysis yesterday was declined because he had a temp of 99.5. Patient states she received a flu vaccine just prior to this and states that he always has some sort cough after. He has no symptoms today. He is afebrile has no complaints. Patient denies chest pain shortness of breath, leg swelling area patient states he is scheduled for dialysis tomorrow. - Related Data Home Medications Medication Instructions Recorded Confirmed Furosemide [Lasix] 80 mg PO DAILY@0700 06/16/19 06/05/20 Sevelamer [Renvela] 3,200 mg PO AC-TID 06/16/19 06/05/20 Acetaminophen-Codeine 300-30mg 1 tab PO Q8HR PRN 04/08/20 06/05/20 [Tylenol w/codeine #3] Ipratropium-Albuterol Nebulize 3 ml INHALATION RT-QID PRN 04/08/20 06/05/20 [Duoneb 0.5 mg-3 mg/3 ml Soln] Pantoprazole [Protonix] 40 mg PO DAILY@0700 04/08/20 06/05/20 hydrALAZINE HCL [Apresoline] 100 mg PO TID@0700,1200,1700 04/08/20 06/05/20 levETIRAcetam 1,000 mg PO BID@0700,1700 04/08/20 06/05/20 methocarbamoL [Robaxin] 750 mg PO TID@0700,1200,1700 PRN 04/08/20 06/05/20 Atorvastatin [Lipitor] 20 mg PO DAILY@0700 05/30/20 06/05/20 Gabapentin [Neurontin] 100 mg PO BID@0700,1700 05/30/20 06/05/20 Sevelamer Carbonate 1,600 mg PO BID PRN 05/30/20 06/05/20 amLODIPine [Norvasc] 5 mg PO BID@0700,1700 07/13/20 07/19/20 Previous Rx's Medication Instructions Recorded Acetaminophen Tab [Tylenol] 650 mg PO Q6HR PRN tab 04/09/20 Labetalol [Trandate] 200 mg PO BID@0700,1700 #60 tablet 06/09/20 Nicotine 21Mg/24Hr Patch [Habitrol] 1 patch TRANSDERM DAILY PRN #30 06/09/20 patch Allergies Allergy/AdvReac Type Severity Reaction Status Date / Time hydromorphone [From Dilaudid] AdvReac Hallucinati Verified 08/30/20 11:10 ons morphine AdvReac Hallucinati Verified 08/30/20 11:10 ons Review of Systems ROS Statement: Those systems with pertinent positive or pertinent negative responses have been documented in the HPI. ROS Other: All systems not noted in ROS Statement are negative. 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 eye injection with steroid on 04/04 for eye "stroke" Past Anesthesia/Blood Transfusion Reactions: No Reported Reaction Additional Past Anesthesia/Blood Transfusion Reaction / Comment(s): Pt has received blood in past without reaction. Past Psychological History: No Psychological Hx Reported Smoking Status: Current every day smoker Past Alcohol Use History: None Reported Past Drug Use History: None Reported - Past Family History Father Family Medical History: Cancer, CVA/TIA Additional Family Medical History / Comment(s): Father had lymphoma. He had a CVA Mother Family Medical History: CVA/TIA Additional Family Medical History / Comment(s): Mother had a CVA. Sister(s) Additional Family Medical History / Comment(s): Patient has 5 sisters one has from an aneurysm in the brain. 2 sisters have history of kidney stones. Patient has one brother that was shot as cause of , he was on the kidney transplant list. Patient has 6 children with no major medical problems. General Exam - General Exam Comments Initial Comments: And no signs of distress vitals reviewed mild hypertension Limitations: no limitations General appearance: alert, in no apparent distress Head exam: Present: atraumatic, normocephalic, normal inspection Eye exam: Present: normal appearance, PERRL, EOMI. Absent: scleral icterus, conjunctival injection, periorbital swelling ENT exam: Present: normal exam, normal oropharynx, mucous membranes moist Neck exam: Present: normal inspection, full ROM. Absent: tenderness, meningismus, lymphadenopathy Respiratory exam: Present: normal lung sounds bilaterally. Absent: respiratory distress, wheezes, rales, rhonchi, stridor Cardiovascular Exam: Present: regular rate, normal rhythm, normal heart sounds. Absent: systolic murmur, diastolic murmur, rubs, gallop, clicks Neurological exam: Present: alert, oriented X3, CN II-XII intact Course Vital Signs 08/30/20 11:10 Temperature 98.4 F Pulse Rate 76 Respiratory 18 Rate Blood Pressure 177/98 O2 Sat by Pulse 96 Oximetry Medical Decision Making - Medical Decision Making Patient is afebrile, asymptomatic. Covid testing was performed. I did call his dialysis center [facility] and talked to the list the nurse who advised the patient to call [facility] in the morning if test is not back patient will be sent to symptomatic center. Patient is in no signs of distress and does not need dialysis immediately. Disposition Clinical Impression: Encounter for laboratory testing for COVID-19 virus Disposition: HOME SELF-CARE Condition: Stable Additional Instructions: Please contact [facility] at [facility] tomorrow morning prior to going to clinic.Please return to the Emergency Department if symptoms worsen or any other concerns. Is patient prescribed a controlled substance at d/c from ED?: No Referrals: Jaylen Holguin MD [Primary Care Provider] - 1-2 days Time of Disposition: 11:26
== END 2020-08-30 11:35 | disposition home or self-care (01) ==
LOC: EC 10:57
DX: Z03.818 Encounter for observation for suspected exposure to other biological agents ruled out (principal); I12.0 Hypertensive chronic kidney disease with stage 5 chronic kidney disease or end stage renal disease; E78.5 Hyperlipidemia, unspecified; G40.909 Epilepsy, unspecified, not intractable, without status epilepticus; N18.6 End stage renal disease; I48.0 Paroxysmal atrial fibrillation; D63.1 Anemia in chronic kidney disease; F17.200 Nicotine dependence, unspecified, uncomplicated; Z88.5 Allergy status to narcotic agent; Z86.73 Personal history of transient ischemic attack (TIA), and cerebral infarction without residual deficits; Z79.899 Other long term (current) drug therapy; Z99.2 Dependence on renal dialysis
CPT/HCPCS: 99283; U0003

== ENCOUNTER 2020-12-14 22:50 | Inpatient (IN) | payer MEDICARE, BC ==
--- NOTE | 2020-12-14 23:03 | ED ---
SOB HPI - General Chief Complaint: Shortness of Breath Stated Complaint: Abdominal pain Time Seen by Provider: 12/14/20 22:57 Source: patient, family, RN notes reviewed, old records reviewed Mode of arrival: wheelchair Limitations: no limitations - History of Present Illness Initial Comments: This is a 50-year-old male DF for evaluation patient Dese for evaluation regards to shortness of breath. Severe shortness of breath and weakness thinks he is fo ot overloaded as he did miss his recent dialysis. Otherwise no recent travel history no known significant sick contacts. Patient denying any chest pain no fevers. MD Complaint: shortness of breath, cough, pain with inspiration -: days(s) Severity: severe Severity scale (1-10): 8 Quality: throbbing Consistency: constant Improves With: nothing Worsens With: exertion, movement Known History Of: COPD, congestive heart failure, recurrent pneumonia Context: recent URI, occurred during exertion Associated Symptoms: pain with inspiration, cough, sputum production, orthopnea Treatments Prior to Arrival: none - Related Data Home Medications Medication Instructions Recorded Confirmed Furosemide [Lasix] 80 mg PO BID@0700,1700 06/16/19 12/15/20 Sevelamer [Renvela] 3,200 mg PO AC-TID 06/16/19 12/15/20 Pantoprazole [Protonix] 40 mg PO BID@0700,1700 04/08/20 12/15/20 hydrALAZINE HCL [Apresoline] 100 mg PO TID@0700,1200,1700 04/08/20 12/15/20 levETIRAcetam 1,000 mg PO BID@0700,1700 04/08/20 12/15/20 methocarbamoL [Robaxin] 750 mg PO TID@0700,1200,1700 PRN 04/08/20 12/15/20 Atorvastatin [Lipitor] 20 mg PO DAILY@0700 05/30/20 12/15/20 Gabapentin [Neurontin] 100 mg PO BID@0700,1700 05/30/20 12/15/20 amLODIPine [Norvasc] 5 mg PO BID@0700,1700 05/30/20 12/15/20 Calcium Acetate [PhosLo] 667 mg PO DAILY 12/15/20 12/15/20 Previous Rx's Medication Instructions Recorded Labetalol [Trandate] 200 mg PO BID@0700,1700 #60 tablet 06/09/20 Allergies Allergy/AdvReac Type Severity Reaction Status Date / Time hydromorphone [From Dilaudid] AdvReac Hallucinati Verified 12/15/20 07:58 ons morphine AdvReac Hallucinati Verified 12/15/20 07:58 ons Review of Systems ROS Statement: Those systems with pertinent positive or pertinent negative responses have been documented in the HPI. ROS Other: All systems not noted in ROS Statement are negative. 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 eye injection with steroid on 04/04 for eye "stroke" Past Anesthesia/Blood Transfusion Reactions: No Reported Reaction Additional Past Anesthesia/Blood Transfusion Reaction / Comment(s): Pt has received blood in past without reaction. Past Psychological History: No Psychological Hx Reported Smoking Status: Current every day smoker Past Alcohol Use History: None Reported Past Drug Use History: None Reported - Past Family History Father Family Medical History: Cancer, CVA/TIA Additional Family Medical History / Comment(s): Father had lymphoma. He had a CVA Mother Family Medical History: CVA/TIA Additional Family Medical History / Comment(s): Mother had a CVA. Sister(s) Additional Family Medical History / Comment(s): Patient has 5 sisters one has from an aneurysm in the brain. 2 sisters have history of kidney stones. Patient has one brother that was shot as cause of , he was on the kidney transplant list. Patient has 6 children with no major medical problems. General Exam Limitations: no limitations General appearance: alert, in no apparent distress, anxious, in distress Head exam: Present: atraumatic, normocephalic, normal inspection Eye exam: Present: normal appearance, PERRL, EOMI. Absent: scleral icterus, conjunctival injection, periorbital swelling ENT exam: Present: normal exam, mucous membranes moist Neck exam: Present: normal inspection. Absent: tenderness, meningismus, lymphadenopathy Respiratory exam: Present: respiratory distress, wheezes, rhonchi, accessory muscle use, decreased breath sounds, prolonged expiratory. Absent: rales, stridor Cardiovascular Exam: Present: regular rate, normal rhythm, normal heart sounds. Absent: systolic murmur, diastolic murmur, rubs, gallop, clicks GI/Abdominal exam: Present: soft, normal bowel sounds. Absent: distended, tenderness, guarding, rebound, rigid Extremities exam: Present: normal inspection, full ROM, normal capillary refill. Absent: tenderness, pedal edema, joint swelling, calf tenderness Back exam: Present: normal inspection Neurological exam: Present: alert, oriented X3, CN II-XII intact Psychiatric exam: Present: normal affect, normal mood Skin exam: Present: warm, dry, intact, normal color. Absent: rash Course Vital Signs 12/14/20 12/15/20 12/15/20 22:51 00:00 00:02 Temperature 98.8 F Pulse Rate 96 78 80 Respiratory 22 24 Rate Blood Pressure 150/85 170/98 O2 Sat by Pulse 74 L 100 Oximetry 12/15/20 12/15/20 00:17 01:06 Temperature Pulse Rate 82 77 Respiratory 22 Rate Blood Pressure 154/104 O2 Sat by Pulse 100 Oximetry - Reevaluation(s) Reevaluation #1: Medical record is reviewed Patient has persistent shortness of breath severe shortness of breath here in the ER although improving Patient informed results and questions have been answered Medical Decision Making - Medical Decision Making 50 male with multifactorial respiratory failure. Patient will be admitted, he was hypoxic will be admitted for further evaluation management - Lab Data Result diagrams: 12/14/20 23:23 12/14/20 23:23 Lab Results 12/14/20 12/14/20 12/14/20 Range/Units 23:23 23:23 23:23 WBC 8.8 (3.8-10.6) k/uL RBC 2.29 L (4.30-5.90) m/uL Hgb 8.1 L (13.0-17.5) gm/dL Hct 23.6 L (39.0-53.0) % MCV 102.7 H (80.0-100.0) fL MCH 35.4 H (25.0-35.0) pg MCHC 34.4 (31.0-37.0) g/dL RDW 15.7 H (11.5-15.5) % Plt Count 104 L (150-450) k/uL MPV 8.0 Neutrophils % 86 % Lymphocytes % 7 % Monocytes % 4 % Eosinophils % 1 % Basophils % 1 % Neutrophils # 7.6 (1.3-7.7) k/uL Lymphocytes # 0.6 L (1.0-4.8) k/uL Monocytes # 0.4 (0-1.0) k/uL Eosinophils # 0.1 (0-0.7) k/uL Basophils # 0.1 (0-0.2) k/uL Macrocytosis Slight Sodium 142 (137-145) mmol/L Potassium 5.3 H (3.5-5.1) mmol/L Chloride 102 (98-107) mmol/L Carbon Dioxide 23 (22-30) mmol/L Anion Gap 17 mmol/L BUN 65 H (9-20) mg/dL Creatinine 16.84 H* (0.66-1.25) mg/dL Est GFR (CKD-EPI)AfAm 3 (>60 ml/min/1.73 sqM) Est GFR (CKD-EPI)NonAf 3 (>60 ml/min/1.73 sqM) Glucose 90 (74-99) mg/dL Calcium 9.1 (8.4-10.2) mg/dL Phosphorus 5.1 H (2.5-4.5) mg/dL Magnesium 1.8 (1.6-2.3) mg/dL Total Bilirubin 1.3 (0.2-1.3) mg/dL AST 21 (17-59) U/L ALT 11 (4-49) U/L Alkaline Phosphatase 75 (38-126) U/L Creatine Kinase 194 H (55-170) U/L Troponin I 0.050 H* (0.000-0.034) ng/mL NT-Pro-B Natriuret Pep pg/mL Total Protein 6.7 (6.3-8.2) g/dL Albumin 4.1 (3.5-5.0) g/dL 12/14/20 Range/Units 23:23 WBC (3.8-10.6) k/uL RBC (4.30-5.90) m/uL Hgb (13.0-17.5) gm/dL Hct (39.0-53.0) % MCV (80.0-100.0) fL MCH (25.0-35.0) pg MCHC (31.0-37.0) g/dL RDW (11.5-15.5) % Plt Count (150-450) k/uL MPV Neutrophils % % Lymphocytes % % Monocytes % % Eosinophils % % Basophils % % Neutrophils # (1.3-7.7) k/uL Lymphocytes # (1.0-4.8) k/uL Monocytes # (0-1.0) k/uL Eosinophils # (0-0.7) k/uL Basophils # (0-0.2) k/uL Macrocytosis Sodium (137-145) mmol/L Potassium (3.5-5.1) mmol/L Chloride (98-107) mmol/L Carbon Dioxide (22-30) mmol/L Anion Gap mmol/L BUN (9-20) mg/dL Creatinine (0.66-1.25) mg/dL Est GFR (CKD-EPI)AfAm (>60 ml/min/1.73 sqM) Est GFR (CKD-EPI)NonAf (>60 ml/min/1.73 sqM) Glucose (74-99) mg/dL Calcium (8.4-10.2) mg/dL Phosphorus (2.5-4.5) mg/dL Magnesium (1.6-2.3) mg/dL Total Bilirubin (0.2-1.3) mg/dL AST (17-59) U/L ALT (4-49) U/L Alkaline Phosphatase (38-126) U/L Creatine Kinase (55-170) U/L Troponin I (0.000-0.034) ng/mL NT-Pro-B Natriuret Pep 07619 pg/mL Total Protein (6.3-8.2) g/dL Albumin (3.5-5.0) g/dL - EKG Data -: EKG Interpreted by Me (PG is sinus rhythm 85 MT 160 QRS 84 QTc 490) - Radiology Data Radiology results: report reviewed (Chest x-ray shows bilateral pneumonia), image reviewed Critical Care Time Critical Care Time: Yes Total Critical Care Time: 31 Disposition Clinical Impression: Weakness, Acute exacerbation of chronic obstructive pulmonary disease, Congestive heart failure, Acute pulmonary edema, Hypoxia, End stage renal disease on dialysis Narrative: ro COVID Disposition: ADMITTED IP TO THIS HOSP Condition: Serious Is patient prescribed a controlled substance at d/c from ED?: No
[2020-12-14] MEDS ORDERED: IPRATROPIUM-ALBUTEROL 3 ML NEB INHALATION STA (23:30)
[2020-12-14 23:34] LABS: Basophils # (A) 0.1 k/uL (0-0.2); Basophils % (A) 1 %; Eosinophils # (A) 0.1 k/uL (0-0.7); Eosinophils % (A) 1 %; HCT 23.6 % (39.0-53.0); HGB 8.1 gm/dL (13.0-17.5); Lymphocytes # (A) 0.6 k/uL (1.0-4.8); Lymphocytes % (A) 7 %; MCH 35.4 pg (25.0-35.0); MCHC 34.4 g/dL (31.0-37.0); MCV 102.7 fL (80.0-100.0); Macrocytosis Slight; Monocytes # (A) 0.4 k/uL (0-1.0); Monocytes % (A) 4 %; Neutrophils # (A) 7.6 k/uL (1.3-7.7); Neutrophils % (A) 86 %; Platelet Count 104 k/uL (150-450); RBC 2.29 m/uL (4.30-5.90); RDW 15.7 % (11.5-15.5); WBC 8.8 k/uL (3.8-10.6)
[2020-12-14 23:40] LABS: Albumin 4.1 g/dL (3.5-5.0); Calcium 9.1 mg/dL (8.4-10.2); Magnesium 1.8 mg/dL (1.6-2.3); Phosphorus 5.1 mg/dL (2.5-4.5); Potassium 5.3 mmol/L (3.5-5.1); Total Bilirubin 1.3 mg/dL (0.2-1.3); Total Protein 6.7 g/dL (6.3-8.2)
--- NOTE | 2020-12-14 23:49 | XR ---
EXAMINATION TYPE: XR chest 2V DATE OF EXAM: 12/14/2020 COMPARISON: 06/05/2020 HISTORY: Weakness TECHNIQUE: FINDINGS: There is a patchy bilateral diffuse airspace infiltrate. Heart is slightly enlarged. I see no definite heart failure. There is slight blunting of the costophrenic angles. There is some mild bu lkiness of the pulmonary victoria. Bony thorax is intact. There are chest leads. IMPRESSION: Bilateral patchy airspace pneumonia. Mild bronchial adenopathy. No obvious heart failure. Congestive heart failure not entirely excluded.
[2020-12-15 03:39] VITALS: RESP 18
[2020-12-15] MEDS ORDERED: methylPREDNISolone SOD SUCCI 125 MG/2 ML VIAL IV SCH (06:00)
[2020-12-15 07:13] LABS: Glucose,Whole Blood 90 mg/dL (75-99)
[2020-12-15] MEDS: IPRATROPIUM-ALBUTEROL 3 ML NEB INHALATION SCH ×3 (07:40→16:02)
--- NOTE | 2020-12-15 10:11 | P.CRDCN ---
History of Present Illness Consult date: 12/15/20 History of present illness: CHIEF COMPLAINT: CHF HISTORY OF PRESENT ILLNESS: This is a 50-year-old male with a past medical h istory significant for hypertension and hyperlipidemia, end-stage renal disease on hemodialysis, COPD, CVA, paroxysmal atrial fibrillation not on anticoagulation secondary to GI bleed, seizure disorder, left lung empyema with left-sided VATS procedure and decortication, and nicotine dependence. Patient follows in the office with Dr. Mayorga. We have been asked to see the patient in consultation for congestive heart failure. Patient examined this morning the bedside. Patient states he woke up yesterday after taking a nap around 4 PM and was short of breath. He denied any chest pain. Patient states he was feeling fine prior to taking a nap. Patient is on hemodialysis with a Saturday schedule. Patient states he missed his hemodialysis on Saturday because he had a chiropractor appointment. Patient states his shortness of breath has improved since coming to the hospital. He continues to have a frequent nonproductive cough. He is being followed by nephrology and scheduled for hemodialysis. Patient states he was evaluated at [facility] for a kidney transplant. Patient states "But it wont happen. It hasn't happened in the last 11 years. I don't have enough money for a transplant. They keep wanting me to do all the same tests I have done before over and over". DIAGNOSTICS: EKG reveals sinus mechanism with no signs of acute ischemia Chest xray bilateral patchy airspace pneumonia. Mild bronchial adenopathy. No obvious heart failure. Laboratory data: WBC 8.8. Hemoglobin 8.1. Platelet count 104. Sodium 142. Potassium 5.3. BUN 65. Creatinine 16.84. Phosphorus 5.1. Magnesium 1.8. Troponin 0.050. BNP 85,600 Current home cardiac medications include hydralazine 100 mg 3 times a day, labetalol 200 mg twice a day, Lasix 80 mg twice a day, Lipitor 20 mg daily, and Norvasc 5 mg twice a day Patient underwent Lexiscan stress test in October 2020 revealing fixed inferior wall defect and evidence of global hypokinesis. Findings were suggestive of nonischemic cardiomyopathy. Echocardiogram completed 11/21/2019 revealed ejection fraction 55-60%, mild mitral regurgitation, mild tricuspid regurgitation REVIEW OF SYSTEMS: At the time of my exam: CONSTITUTIONAL: Denies fever or chills. HEENT: Denies blurred vision, vision changes, or eye pain. Denies hemoptysis CARDIOVASCULAR: Denies chest pain, orthopnea, PND or palpitations RESPIRATORY: Reports mild shortness of breath. GASTROINTESTINAL: Denies abdominal pain. Denies nausea or vomiting. HEMATOLOGIC: Denies bleeding disorders. GENITOURINARY: Denies any blood in urine. SKIN: Denies pruitis. Denies rash. PHYSICAL EXAM: VITAL SIGNS: Reviewed. GENERAL: Well-developed in no acute distress. HEENT: Head is normocephalic. Pupils are equal, round. Sclerae anicteric. Mucous membranes of the mouth are moist. Neck supple. No JVD or thyromegaly LUNGS: Respirations even and unlabored. Lungs with decreased air exchange bilaterally. Frequent nonproductive cough noted. HEART: Regular rate and rhythm. S1 and S2 heard. Systolic murmur noted. ABDOMEN: Soft. Nondistended. Nontender. EXTREMITIES: Normal range of motion. No clubbing or cyanosis. Peripheral pulses intact. No lower extremity edema NEUROLOGIC: Awake and alert. Oriented x 3. ASSESSMENT: Shortness of breath likely secondary to missed hemodialysis session on Saturday End-stage renal disease on hemodialysis, Saturday Abnormal troponin, secondary to chronic kidney disease Hypertension Hyperlipidemia COPD CVA Paroxysmal atrial fibrillation, not on anticoagulation secondary to GI bleed Seizure disorder History of left lung empyema with left-sided VATS procedure and decortication Nicotine dependence, patient smokes 1 pack per day PLAN: Obtain 2-D echo to assess cardiac structure and function Shortness of breath likely secondary to missed hemodialysis session Daily weight Accurate I&O Resume home cardiac medications Nephrology following. Patient to undergo hemodialysis Smoking cessation recommended Further recommendations pending patient course Nurse practitioner note has been reviewed by physician. Signing provider agrees with the documented findings, assessment, and plan of care. 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 eye injection with steroid on 04/04 for eye "stroke" Past Anesthesia/Blood Transfusion Reactions: No Reported Reaction Additional Past Anesthesia/Blood Transfusion Reaction / Comment(s): Pt has received blood in past without reaction. Past Psychological History: No Psychological Hx Reported Additional Psychological History / Comment(s): Pt resides with his spouse of 17 yrs. He drives rarely. His spouse takes him to app[place]nergle or his sister does. He is otherwise independent. Smoking Status: Current every day smoker Past Alcohol Use History: None Reported Additional Past Alcohol Use History / Comment(s): Patient is a smoker one pack per day since he was 17 years of age. Currently down to half pack per day. He denies any marijuana, illicit drug use, alcohol use, vaping. Past Drug Use History: None Reported - Past Family History Father Family Medical History: Cancer, CVA/TIA Additional Family Medical History / Comment(s): Father had lymphoma. He had a CVA Mother Family Medical History: CVA/TIA Additional Family Medical History / Comment(s): Mother had a CVA. Sister(s) Additional Family Medical History / Comment(s): Patient has 5 sisters one has from an aneurysm in the brain. 2 sisters have history of kidney stones. Patient has one brother that was shot as cause of , he was on the kidney transplant list. Patient has 6 children with no major medical problems. Medications and Allergies Home Medications Medication Instructions Recorded Confirmed Type Furosemide [Lasix] 80 mg PO BID@0700,1700 06/16/19 12/15/20 History Sevelamer [Renvela] 3,200 mg PO AC-TID 06/16/19 12/15/20 History Pantoprazole [Protonix] 40 mg PO BID@0700,1700 04/08/20 12/15/20 History hydrALAZINE HCL [Apresoline] 100 mg PO TID@0700,1200,1700 04/08/20 12/15/20 History levETIRAcetam 1,000 mg PO BID@0700,1700 04/08/20 12/15/20 History methocarbamoL [Robaxin] 750 mg PO TID@0700,1200,1700 PRN 04/08/20 12/15/20 History Atorvastatin [Lipitor] 20 mg PO DAILY@0700 05/30/20 12/15/20 History Gabapentin [Neurontin] 100 mg PO BID@0700,1700 05/30/20 12/15/20 History amLODIPine [Norvasc] 5 mg PO BID@0700,1700 05/30/20 12/15/20 History Labetalol [Trandate] 200 mg PO BID@0700,1700 #60 tablet 06/09/20 12/15/20 Rx Calcium Acetate [Phoslo] 667 mg PO DAILY 12/15/20 12/15/20 History Allergies Allergy/AdvReac Type Severity Reaction Status Date / Time hydromorphone [From Dilaudid] AdvReac Hallucinati Verified 12/15/20 07:58 ons morphine AdvReac Hallucinati Verified 12/15/20 07:58 ons Physical Exam Vitals: Vital Signs Temp Pulse Pulse Resp BP BP Pulse Ox 12/15/20 07:15 18 12/15/20 03:46 97 12/15/20 03:45 100 12/15/20 01:49 98.0 F 77 18 166/83 100 12/15/20 01:06 77 22 154/104 100 12/15/20 00:17 82 12/15/20 00:02 80 12/15/20 00:00 78 24 170/98 100 12/14/20 22:51 98.8 F 96 22 150/85 74 L Intake and Output 12/14/20 12/15/20 12/15/20 22:59 06:59 14:59 Other: # Voids 0 Weight 72.575 kg 70.5 kg Results 12/14/20 23:23 12/14/20 23:23 Cardiac Enzymes 12/14/20 12/14/20 Range/Units 23:23 23:23 AST 21 (17-59) U/L Troponin I 0.050 H* (0.000-0.034) ng/mL CBC 12/14/20 Range/Units 23:23 WBC 8.8 (3.8-10.6) k/uL RBC 2.29 L (4.30-5.90) m/uL Hgb 8.1 L (13.0-17.5) gm/dL Hct 23.6 L (39.0-53.0) % Plt Count 104 L (150-450) k/uL Comprehensive Metabolic Panel 12/14/20 Range/Units 23:23 Sodium 142 (137-145) mmol/L Potassium 5.3 H (3.5-5.1) mmol/L Chloride 102 (98-107) mmol/L Carbon Dioxide 23 (22-30) mmol/L BUN 65 H (9-20) mg/dL Creatinine 16.84 H* (0.66-1.25) mg/dL Glucose 90 (74-99) mg/dL Calcium 9.1 (8.4-10.2) mg/dL AST 21 (17-59) U/L ALT 11 (4-49) U/L Alkaline Phosphatase 75 (38-126) U/L Total Protein 6.7 (6.3-8.2) g/dL Albumin 4.1 (3.5-5.0) g/dL Current Medications Generic Name Dose Route Start Last Admin Trade Name Freq PRN Reason Stop Dose Admin Albuterol/Ipratropium 3 ml 12/15/20 08:00 Ipratropium-Albuterol 3 Ml Neb INHALATION RT-QID KRISTY Methylprednisolone Sodium Succinate 60 mg 12/15/20 06:00 12/15/20 05:08 Methylprednisolone Sod Succi 125 Mg/2 Ml Vial IV 60 mg Q6HR KRISTY Administration Intake and Output 12/14/20 12/15/20 12/15/20 22:59 06:59 14:59 Other: # Voids 0 Weight 72.575 kg 70.5 kg 12/14/20 23:23 12/14/20 23:23
[2020-12-15 10:18] VITALS: TEMP 98.6
[2020-12-15 11:10] VITALS: BMI 25.8
--- NOTE | 2020-12-15 11:13 | P.HPIM ---
History of Present Illness H&P Date: 12/15/20 Chief Complaint: NICHOLAS HISTORY AND PHYSICAL AND DISCHARGE SUMMARY: History of Present Illness This is a 50-year-old male patient of Dr. Holguin with past medical history of end-stage renal disease secondary to kidney stones on hemodialysis for 10 years 3 times weekly, Saturday, hypertension, hyperte nsive cardiovascular disease, seizure disorder, left thalamus stroke, previous admission for acute hypoxic respiratory failure secondary to fluid overload from missing dialysis treatments requiring mechanical ventilation, history of empyema status post VATS and pericardial window, history of chronic thrombocytopenia, tobacco use and dependence-continues to be an active smoker, paroxysmal atrial fibrillation in February 2018, history of GI bleed secondary to ulcers in the esophagus stomach and duodenum. Patient states that he woke up on Saturday morning was unable to move his neck and had significant pain for which he followed up with a chiropractor but because of the appointment time, missed his dialysis appointment. Patient states he has had chronic neck pain and upper thoracic pain for the past 2 years. He denies any new injuries. Patient was doing fine until yesterday at 4 PM had sudden onset of shortness of breath. He states he is coughing blood. He did not receive dialysis last night but has no shortness of breath at the time of evaluation. Patient came into [facility] emergency center for evaluation found to be afebrile, heart rate 96, blood pressure 150/85 and pulse ox 74% on room air. Patient was placed on nonrebreather through the night and early this morning switched over to 5 L nasal cannula with pulse ox 97%. Chest x-ray reveals bilateral patchy airspace pneumonia, mild bronchial adenopathy, no obvious heart failure. Heart failure not entirely excluded. Coronavirus not detected. WBC 8.8, hemoglobin 8.1, platelet count 104. Sodium 142, potassium 5.3, chloride 102, CO2 23, BUN 6 seen, creatinine 16.8. Blood sugar 90. Troponin 0.050. CK 194. Patient admitted to the [facility] floor and consultation placed with cardiology and nephrology. Patient has been seen by nephrology and cardiology and cleared for discharge. No medication changes made to his home list. Patient will be discharged home today in stable condition. Review of Systems Constitutional: No fever, no chills, no night sweats. No weight change. No weakness, No fatigue. No daytime sleepiness. EENT: No headache. No blurred vision or double vision, no loss of vision. No loss of Hearing, no ringing in the ears, no dizziness. No nasal drainage or congestion. No epistaxis. No sore throat. Lungs: reported shortness of breath, cough, no sputum production. No wheezing. reports hemoptysis Cardiovascular: No chest pain, no lower extremity edema. No palpitations. No paroxysmal nocturnal dyspnea. No lightheadedness or dizziness. No syncopal episodes. Abdominal: No abdominal pain. Reports nausea, vomiting. Reports hematemesis. No diarrhea. No constipation. No bloody or tarry stools. Reports loss of appetite. Musculoskeletal: No myalgias. No muscle weakness, no gait dysfunction, no frequent falls. No back pain. Reports neck pain. Integumentary: No wounds, no lesions. No rash or pruritus. No unusual bruising. No change in hair or nails. Neurologic: No aphasia. No facial droop. No change in mentation. No head injury. No headache. No paralysis. No paresthesia. Psychiatric: No depression. No anxiety. No mood swings. Endocrine: No abnormal blood sugars. No weight change. No excessive sweating or thirst. No cold intolerance. Physical Examination Gen: This is a 50-year-old male patient resting in bed and appears to in no acute respiratory distress. HEENT: Head is atraumatic, normocephalic. Pupils equal, round. Sclerae is anicteric. Overall skin color lozano. NECK: Supple. No JVD. No lymphadenopathy. No thyromegaly. LUNGS: Expiratory wheeze bilaterally. No accessory muscle usage. No intercostal retractions. HEART: Regular rate and rhythm. Systolic murmur. ABDOMEN: Soft. Bowel sounds are present. No masses. No tenderness. EXTREMITIES: No pedal edema. No calf tenderness. No lower extremity wounds. Fistula right arm NEUROLOGICAL: Patient is awake, alert and oriented x3. Cranial nerves 2 through 12 are grossly intact. Assessment and Plan 1. Acute hypoxic respiratory failure requiring nonrebreather, resolved. Consult with nephrology and cardiology. 2. Possible acute diastolic heart failure. Cardiology consult, nephrology consult, HD. 3. End-stage renal disease on hemodialysis Saturday. Consult with nephrology for dialysis. Continue lasix 80 mg twice daily. 4. History of anemia of chronic disease with baseline hemoglobin of 8. 5. Hyperphosphatemia. Continue Renvela 3200 mg 3 times daily. 6. Hypertension, hypertensive cardiovascular disease. Continue amlodipine 5 mg twice daily, hydralazine 100 mg 3 times daily, labetalol 200 mg twice daily. 7. History of seizure disorder. Continue Keppra 1000 mg twice daily. 8. History of empyema status post VATS and pericardial window. 9. History of left thalamus stroke. Continue Lipitor 20 mg daily for secondary prevention. 10. Tobacco use and dependence. Nicotine patch ordered as needed as patient is denying need at this time. 11. Chronic thrombocytopenia. Currently stable. 12. DVT prophylaxis. KP natashae and SCDs. 13. GI prophylaxis. Protonix 14. CODE STATUS: Full code. Patient will be admitted to the hospital for a minimum of 2 night stay. Discharge plan: Return home Discharge Medication List Furosemide [Lasix] 80 mg PO BID@0700,1700 06/16/19 [History] Sevelamer [Renvela] 3,200 mg PO AC-TID 06/16/19 [History] Pantoprazole [Protonix] 40 mg PO BID@0700,1700 04/08/20 [History] hydrALAZINE HCL [Apresoline] 100 mg PO TID@0700,1200,1700 04/08/20 [History] levETIRAcetam 1,000 mg PO BID@0700,1700 04/08/20 [History] methocarbamoL [Robaxin] 750 mg PO TID@0700,1200,1700 PRN 04/08/20 [History] Atorvastatin [Lipitor] 20 mg PO DAILY@0700 05/30/20 [History] Gabapentin [Neurontin] 100 mg PO BID@0700,1700 05/30/20 [History] amLODIPine [Norvasc] 5 mg PO BID@0700,1700 05/30/20 [History] Labetalol [Trandate] 200 mg PO BID@0700,1700 #60 tablet 06/09/20 [Rx] Calcium Acetate [PhosLo] 667 mg PO DAILY 12/15/20 [History] Impression and plan of care have been directed as dictated by the signing physician. Doretha Brumfield nurse practitioner acting as scribe for signing physician. Past Medical History Past Medical History: Atrial Fibrillation, Blood Disorder, CVA/TIA, Eye Disorder, GI Bleed, Hyperlipidemia, Hypertension, Renal Disease, Seizure Disorder Additional Past Medical History / Comment(s): End-stage renal disease on hemodialysis schedule of Saturday, and Saturday , urolithiasis/nephrolithiasis, acute hypoxic respiratory failure after missed dialysis, paroxysmal Afib, chronic anemia, chronic thrombocytopenia, lower GI bleed, duodenal ulcer, seizures with last seizures 12/2017, L thalamus CVA no res idual, pericardial effusion, L lung empyema, spinal stenosis, DDD, chronic cervical and back pain, R eye "lazy", past R ankle and R hand fractures-casted, History of Any Multi-Drug Resistant Organisms: None Reported Past Surgical History: Bladder Surgery, Orthopedic Surgery Additional Past Surgical History / Comment(s): Hemorrhoidectomy, EGDs, colonoscopies, L sided Vats with decortication, pericardial window, hemodialysis fistula, cystoscopies/lithotripsies, bilateral renal stents, double J catheter. eye injection with steroid on 04/04 for eye "stroke" Past Anesthesia/Blood Transfusion Reactions: No Reported Reaction Additional Past Anesthesia/Blood Transfusion Reaction / Comment(s): Pt has received blood in past without reaction. Past Psychological History: No Psychological Hx Reported Additional Psychological History / Comment(s): Pt resides with his spouse of 17 yrs. He drives rarely. His spouse takes him to appts or his sister does. He is otherwise independent. Smoking Status: Current every day smoker Past Alcohol Use History: None Reported Additional Past Alcohol Use History / Comment(s): Patient is a smoker one pack per day since he was 17 years of age. Currently down to half pack per day. He denies any marijuana, illicit drug use, alcohol use, vaping. Past Drug Use History: None Reported - Past Family History Father Family Medical History: Cancer, CVA/TIA Additional Family Medical History / Comment(s): Father had lymphoma. He had a CVA Mother Family Medical History: CVA/TIA Additional Family Medical History / Comment(s): Mother had a CVA. Sister(s) Additional Family Medical History / Comment(s): Patient has 5 sisters one has from an aneurysm in the brain. 2 sisters have history of kidney stones. Patient has one brother that was shot as cause of , he was on the kidney transplant list. Patient has 6 children with no major medical problems. Medications and Allergies Home Medications Medication Instructions Recorded Confirmed Type Furosemide [Lasix] 80 mg PO BID@0700,1700 06/16/19 12/15/20 History Sevelamer [Renvela] 3,200 mg PO AC-TID 06/16/19 12/15/20 History Pantoprazole [Protonix] 40 mg PO BID@0700,1700 04/08/20 12/15/20 History hydrALAZINE HCL [Apresoline] 100 mg PO TID@0700,1200,1700 04/08/20 12/15/20 History levETIRAcetam 1,000 mg PO BID@0700,1700 04/08/20 12/15/20 History methocarbamoL [Robaxin] 750 mg PO TID@0700,1200,1700 PRN 04/08/20 12/15/20 History Atorvastatin [Lipitor] 20 mg PO DAILY@0700 05/30/20 12/15/20 History Gabapentin [Neurontin] 100 mg PO BID@0700,1700 05/30/20 12/15/20 History amLODIPine [Norvasc] 5 mg PO BID@0700,1700 05/30/20 12/15/20 History Labetalol [Trandate] 200 mg PO BID@0700,1700 #60 tablet 06/09/20 12/15/20 Rx Calcium Acetate [Phoslo] 667 mg PO DAILY 12/15/20 12/15/20 History Allergies Allergy/AdvReac Type Severity Reaction Status Date / Time hydromorphone [From Dilaudid] AdvReac Hallucinati Verified 12/15/20 07:58 ons morphine AdvReac Hallucinati Verified 12/15/20 07:58 ons Physical Exam Vitals: Vital Signs Temp Pulse Pulse Resp BP BP Pulse Ox 12/15/20 03:46 97 12/15/20 03:45 100 12/15/20 01:49 98.0 F 77 18 166/83 100 12/15/20 01:06 77 22 154/104 100 12/15/20 00:17 82 12/15/20 00:02 80 12/15/20 00:00 78 24 170/98 100 12/14/20 22:51 98.8 F 96 22 150/85 74 L Intake and Output 12/14/20 12/15/20 12/15/20 22:59 06:59 14:59 Other: # Voids 0 Weight 72.575 kg 70.5 kg Results CBC & Chem 7: 12/14/20 23:23 12/14/20 23:23 Labs: Abnormal Lab Results - Last 24 Hours (Table) 12/14/20 12/14/20 12/14/20 Range/Units 23:23 23:23 23:23 RBC 2.29 L (4.30-5.90) m/uL Hgb 8.1 L (13.0-17.5) gm/dL Hct 23.6 L (39.0-53.0) % MCV 102.7 H (80.0-100.0) fL MCH 35.4 H (25.0-35.0) pg RDW 15.7 H (11.5-15.5) % Plt Count 104 L (150-450) k/uL Lymphocytes # 0.6 L (1.0-4.8) k/uL Potassium 5.3 H (3.5-5.1) mmol/L BUN 65 H (9-20) mg/dL Creatinine 16.84 H* (0.66-1.25) mg/dL Phosphorus 5.1 H (2.5-4.5) mg/dL Creatine Kinase 194 H (55-170) U/L Troponin I 0.050 H* (0.000-0.034) ng/mL Thrombosis Risk Factor Assmnt - Choose All That Apply Each Factor Represents 1 point: Abnormal pulmonary function (COPD), Age 41-60 years Thrombosis Risk Factor Assessment Total Risk Factor Score: 2 Thrombosis Risk Factor Assessment Level: Low Risk
[2020-12-15] MEDS ORDERED: CALCIUM ACETATE 667 MG TAB PO SCH (11:15)
[2020-12-15 11:47] LABS: Glucose,Whole Blood 205 mg/dL (75-99)
[2020-12-15] MEDS ORDERED: hydrALAZINE HCL 50 MG TAB PO SCH (12:00)
[2020-12-15] MEDS ORDERED: methocarbamoL 750 MG TAB PO PRN (12:00)
[2020-12-15] MEDS ORDERED: SEVELAMER 800 MG TAB PO SCH (12:30)
[2020-12-15 15:29] VITALS: BP 179/90; PULSE 79
[2020-12-15] MEDS ORDERED: DARBEPOETIN ALFA 60 MCG/0.3 ML SYRINGE SQ SCH (17:00)
[2020-12-15] MEDS ORDERED: levETIRAcetam 500 MG TAB PO SCH (17:00)
[2020-12-15] MEDS ORDERED: amLODIPine 5 MG TAB PO SCH (17:00)
[2020-12-15] MEDS ORDERED: LABETALOL 200 MG TAB PO SCH (17:00)
[2020-12-15] MEDS ORDERED: GABAPENTIN 100 MG CAP PO SCH (17:00)
[2020-12-15] MEDS ORDERED: FUROSEMIDE 80 MG TAB PO SCH (17:00)
[2020-12-15] MEDS ORDERED: PANTOPRAZOLE 40 MG TABLET PO SCH (17:00)
--- NOTE | 2020-12-15 18:22 | CONS ---
CONSULTATION REASON FOR CONSULT: End-stage renal disease. HISTORY OF PRESENT ILLNESS: Patient is a 50-year-old male with end-stage renal disease, on hemodialysis on a Saturday, , Saturday schedule. Patient was admitted to the hospital with complaints of shortness of breath and chest discomfort. He had missed his dialysis on Saturday. He denied any fever or cough. No nausea, vomiting or diarrhea. PAST MEDICAL HISTORY: End-stage renal disease, anemia of chronic disease, CKD mineral bone disorder, history of severe osteoarthritis with cervical spine radiculopathy, history of vent-dependent respiratory failure, chronic thrombocytopenia, paroxysmal atrial fibrillation, history of seizures, nephrolithiasis, CVA/TIA, spinal stenosis. PAST SURGICAL HISTORY: Hemorrhoidectomy, EGDs, colonoscopy, left-sided VATS procedure with decortication, pericardial window, AV fistula, cystoscopies, lithotripsies, eye injections and surgery. SOCIAL HISTORY: The patient is a current daily smoker. No history of other drug abuse. MEDICATIONS: Medications prior to admission included Lasix, Renvela, Protonix, hydralazine, Robaxin, Lipitor, Neurontin, Norvasc, Trandate, PhosLo, Keppra. ALLERGIES: ALLERGIES include DILAUDID, MORPHINE. REVIEW OF SYSTEMS: As per HPI. Other systems negative. PHYSICAL EXAMINATION: Patient is comfortable, awake, alert, oriented x3, not in any acute distress. Blood pressure 179/90, heart rate 79 per minute. He is afebrile. EXAMINATION OF THE HEART: S1 and S2. EXAMINATION OF LUNGS: Bilateral breath sounds are heard. ABDOMEN: Soft, non-tender. Examination of lower extremities shows edema 1+ bilaterally. SPACE OFFICER exam is grossly intact. LABS: Labs show sodium 142, potassium 5.3, hemoglobin 8.1 g/dL. ProBNP 85,600. ASSESSMENT: 1. End-stage renal disease, on hemodialysis on a Saturday, , Saturday schedule. 2. Volume overload. 3. Hypertension, partly volume-sensitive. 4. History of nephrolithiasis. 5. Anemia of chronic disease. PLAN: Hemodialysis today with UF of about 3 to 3.5 L. I will give a dose of Aranesp as well. Continue with antihypertensive medications. If blood pressure remains elevated post dialysis, I will give him a small dose of hydralazine today prior to his treatment. Continue with the phosphate binders. Follow up as outpatient for next dialysis on Saturday. MMSALINAL / NATHANN: [phone] /
--- NOTE | 2020-12-15 19:00 | ECHOF ---
Referral Reason:LV function MEASUREMENTS -------- HEIGHT: 165.1 cm WEIGHT: 70.3 kg BP: IVSd: 1.4 cm (0.6 - 1.1) LVIDd: 5.1 cm (3.9 - 5.3) LVPWd: 1.5 cm (0.6 - 1.1) IVSs: 1.7 cm LVIDs: 3.7 cm LVPWs: 2.3 cm LA Diam: 4.2 cm (2.7 - 3.8) LAESV Index (A-L): 51.64 ml/m Ao Diam: 2.7 cm (2.0 - 3.7) AV Cusp: 2.2 cm (1.5 - 2.6) MV EXCURSION: 19.089 mm (> 18.000) MV EF SLOPE: 51 mm/s (70 - 150) EPSS: 1.5 cm MV E To: 0.64 m/s MV DecT: 181 ms MV A To: 0.83 m/s MV E/A Ratio: 0.78 RAP: 5.00 mmHg RVSP: 34.20 mmHg FINDINGS -------- Sinus rhythm. This was a technically adequate study. The left ventricular size is normal. There is moderate concentric left ventricular hypertrophy. O verall left ventricular systolic function is normal with, an EF between 55 - 60 %. The right ventricle is normal in size. LA is severely dilated >40 ml/m2 The right atrial size is normal. The aortic valve is trileaflet, and appears structurally normal. No aortic stenosis or regurgitation. The mitral valve leaflets are mildly thickened. Mild mitral regurgitation is present. The tricuspid valve appears structurally normal. Mild tricuspid regurgitation present. Right vent ricular systolic pressure is normal at < 35 mmHg. The right ventricular systolic pressure, as measu red by Doppler, is 34.20mmHg. Trace/mild (physiologic) pulmonic regurgitation. The aortic root size is normal. There is no pericardial effusion. CONCLUSIONS -------- 1. There is moderate concentric left ventricular hypertrophy. 2. Overall left ventricular systolic function is normal with, an EF between 55 - 60 %. 3. LA is severely dilated >40 ml/m2 4. The aortic valve is trileaflet, and appears structurally normal. No aortic stenosis or regurgitati on. 5. Mild mitral regurgitation is present. 6. Mild tricuspid regurgitation present. 7. Trace/mild (physiologic) pulmonic regurgitation. 8. There is no pericardial effusion. PERFORATOR OPERATOR OIL WELL: Joyce Miranda RDCS
[2020-12-16] MEDS ORDERED: ATORVASTATIN 20 MG TAB PO SCH (07:00)
--- NOTE | 2020-12-16 12:51 | CDI ---
Documentation Clarification Form Date: 12/16/2020 12:49:00 PM From: Jumana Read CCS Phone: If you have a question about this query, please contact Dariana Charles Simulation Software Engineer at [phone] between 8am and 5pm Admit Date: 12/15/2020 12:21:00 AM Patient Name: Jose Eng Visit Number: [id number] Discharge Date: 12/15/2020 04:40:00 PM ATTENTION: The Clinical Documentation Specialists (CDI) and [facility] Coding Staff appreciate your assistance in clarifying documentation. Please respond to the clarification below the line at the bottom and electronically sign. The CDI & [facility] Coding staff will review the response and follow-up if needed. Please note: Queries are made part of the Legal Health Record. If you have any questions, please contact the author of this message via ITS. Dr. Alexi Mayorga Possible acute diastolic CHF is documented in the H&P. Shortness of breath likely secondary to missed hemodialysis session on Saturday End-stage renal disease on hemodialysis, Saturday Volume Overload History/Risk Factors: HTN, CHF, ESRD, Anemia, Cardiomyopathy, AFIB, Tobacco Clinical Indicators: Hypoxia, Volume overload VS/Pulse OX: BP 150/85, RR 22, GA 96, O2 Sat 74 BNP: 85,600 Echocardiogram Results: The left ventricular size is normal.There is moderate concentric left ventricular hypertrophy.Overall left ventricular systolic function is normal with, an EF between 55 - 60 %. Chest X Ray: Bilateral patchy airspace pneumonia.Mild bronchial adenopathy.No obvious heart failure.Congestive heart failure not entirely excluded. Treatment: Hemodialysis, Lasix 80 mg PO In your professional opinion, can you please clarify the acuity and type of CHF if known? Diastolic Heart Failure: Acute Chronicxxxx Acute on Chronic Volume overload unrelated to CHF Acute Pulmonary Edema unrelated to CHF Unable to Determine Other, please specify MTDD
== END 2020-12-15 16:40 | disposition home or self-care (01) | DRG 291 ==
LOC: EC 22:50 → 4SSUR 12-15 00:21
PROVIDERS: ADMIT Internal Medicine Geriatric Medicine; ATTEND Internal Medicine Geriatric Medicine
PROC: 5A1D70Z Performance of Urinary Filtration, Intermittent, Less than 6 Hours Per Day (ICD-10-PCS; principal; 2020-12-15)
DX: I13.2 Hypertensive heart and chronic kidney disease with heart failure and with stage 5 chronic kidney disease, or end stage renal disease (principal); N18.6 End stage renal disease; J96.21 Acute and chronic respiratory failure with hypoxia; J44.1 Chronic obstructive pulmonary disease with (acute) exacerbation; I50.32 Chronic diastolic (congestive) heart failure; D69.6 Thrombocytopenia, unspecified; D63.1 Anemia in chronic kidney disease; E83.39 Other disorders of phosphorus metabolism; E83.9 Disorder of mineral metabolism, unspecified; I42.9 Cardiomyopathy, unspecified; Z20.822 Contact with and (suspected) exposure to COVID-19; G40.909 Epilepsy, unspecified, not intractable, without status epilepticus; I48.0 Paroxysmal atrial fibrillation; E78.5 Hyperlipidemia, unspecified; M51.36 Other intervertebral disc degeneration, lumbar region; F17.210 Nicotine dependence, cigarettes, uncomplicated; I08.1 Rheumatic disorders of both mitral and tricuspid valves; M19.90 Unspecified osteoarthritis, unspecified site; M54.12 Radiculopathy, cervical region; R77.8 Other specified abnormalities of plasma proteins; M48.00 Spinal stenosis, site unspecified; G89.29 Other chronic pain; Z71.3 Dietary counseling and surveillance; Z71.6 Tobacco abuse counseling; Z79.899 Other long term (current) drug therapy; Z86.73 Personal history of transient ischemic attack (TIA), and cerebral infarction without residual deficits; Z87.19 Personal history of other diseases of the digestive system; Z87.442 Personal history of urinary calculi; Z98.890 Other specified postprocedural states; Z96.0 Presence of urogenital implants; Z99.2 Dependence on renal dialysis; Z87.01 Personal history of pneumonia (recurrent); Z88.5 Allergy status to narcotic agent; Z80.7 Family history of other malignant neoplasms of lymphoid, hematopoietic and related tissues; Z82.3 Family history of stroke
CPT/HCPCS: 36415; 71046; 80053; 82550; 83735; 83880; 84100; 84484; 85025; 87635; 90935; 93005; 93306; 94640; 94760; 99285

== ENCOUNTER 2021-02-26 14:51 | Emergency (ER) | payer MEDICARE, BC ==
[2021-02-26 15:48] VITALS: TEMP 97.8
--- NOTE | 2021-02-26 15:50 | ED ---
General Adult HPI - General Source: patient Mode of arrival: ambulatory Limitations: no limitations <Omero Abdullahi - Last Filed: 02/26/21 15:49> <Shanika Lopez - Last Filed: 02/27/21 07:53> - General Stated complaint: Fever,diarrhea Time Seen by Provider: 02/26/21 16:50 - History of Present Illness Initial comments: Patient was seen for medical screening for advanced triage purposes: 50-year-old male with end-stage renal disease on dialysis, atrial fibrillation, hyperlipidemia, hypertension presents to the emergency room for a chief complaint of diarrhea. Patient states his diarrhea as watery. He is also having some slight abdominal pain. No fevers. (Omero Abdullahi) - Related Data Home Medications Medication Instructions Recorded Confirmed Furosemide [Lasix] 80 mg PO BID@0700,1700 06/16/19 02/26/21 Sevelamer [Renvela] 3,200 mg PO AC-TID 06/16/19 02/26/21 Pantoprazole [Protonix] 40 mg PO BID@0700,1700 04/08/20 02/26/21 hydrALAZINE HCL [Apresoline] 100 mg PO TID@0700,1200,1700 04/08/20 02/26/21 levETIRAcetam 1,000 mg PO BID@0700,1700 04/08/20 02/26/21 methocarbamoL [Robaxin] 750 mg PO TID@0700,1200,1700 PRN 04/08/20 02/26/21 Atorvastatin [Lipitor] 20 mg PO DAILY@0700 05/30/20 02/26/21 Gabapentin [Neurontin] 100 mg PO BID@0700,1700 05/30/20 02/26/21 amLODIPine [Norvasc] 5 mg PO BID@0700,1700 05/30/20 02/26/21 Calcium Acetate [PhosLo] 667 mg PO TID@0700,1200,1700 12/15/20 02/26/21 Acetaminophen-Codeine 300-30mg 1 tab PO DAILY PRN 02/26/21 02/26/21 [Tylenol w/codeine #3] Previous Rx's Medication Instructions Recorded Labetalol [Trandate] 200 mg PO BID@0700,1700 #60 tablet 06/09/20 Dicyclomine [Bentyl] 10 mg PO TID PRN #15 capsule 02/26/21 Ondansetron Odt [Zofran Odt] 4 mg PO Q8HR PRN #10 tab 02/26/21 Allergies Allergy/AdvReac Type Severity Reaction Status Date / Time hydromorphone [From Dilaudid] AdvReac Hallucinati Verified 02/26/21 15:48 ons morphine AdvReac Hallucinati Verified 02/26/21 15:48 ons Review of Systems ROS Other: All systems not noted in ROS Statement are negative. <Omero Abdullahi - Last Filed: 02/26/21 15:49> ROS Other: All systems not noted in ROS Statement are negative. <Shanika Lopez - Last Filed: 02/27/21 07:53> ROS Statement: Those systems with pertinent positive or pertinent negative responses have been documented in the HPI. 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 eye injection with steroid on 04/04 for eye "stroke" Past Anesthesia/Blood Transfusion Reactions: No Reported Reaction Additional Past Anesthesia/Blood Transfusion Reaction / Comment(s): Pt has received blood in past without reaction. Past Psychological History: No Psychological Hx Reported Smoking Status: Current every day smoker Past Alcohol Use History: None Reported Past Drug Use History: None Reported - Past Family History Father Family Medical History: Cancer, CVA/TIA Additional Family Medical History / Comment(s): Father had lymphoma. He had a CVA Mother Family Medical History: CVA/TIA Additional Family Medical History / Comment(s): Mother had a CVA. Sister(s) Additional Family Medical History / Comment(s): Patient has 5 sisters one has from an aneurysm in the brain. 2 sisters have history of kidney stones. Patient has one brother that was shot as cause of , he was on the kidney transplant list. Patient has 6 children with no major medical problems. <Omero Abdullahi P - Last Filed: 02/26/21 15:49> General Exam Limitations: no limitations <Omero Abdullahi P - Last Filed: 02/26/21 15:49> General appearance: alert, in no apparent distress Head exam: Present: atraumatic, normocephalic, normal inspection Eye exam: Present: normal appearance, PERRL, EOMI. Absent: scleral icterus, conjunctival injection, periorbital swelling ENT exam: Present: normal exam, mucous membranes moist Neck exam: Present: normal inspection. Absent: tenderness, meningismus, lymphadenopathy Respiratory exam: Present: normal lung sounds bilaterally. Absent: respiratory distress, wheezes, rales, rhonchi, stridor Cardiovascular Exam: Present: regular rate, normal rhythm, normal heart sounds. Absent: systolic murmur, diastolic murmur, rubs, gallop, clicks GI/Abdominal exam: Present: soft, normal bowel sounds. Absent: distended, tenderness, guarding, rebound, rigid Extremities exam: Present: normal inspection, full ROM, normal capillary refill. Absent: tenderness, pedal edema, joint swelling, calf tenderness Back exam: Present: normal inspection Neurological exam: Present: alert, oriented X3, CN II-XII intact Psychiatric exam: Present: normal affect, normal mood Skin exam: Present: warm, dry, intact, normal color. Absent: rash <Shanika Lopez - Last Filed: 02/27/21 07:53> Course Vital Signs 02/26/21 02/26/21 02/26/21 15:46 18:30 19:27 Temperature 97.8 F Pulse Rate 87 86 90 Respiratory 20 18 18 Rate Blood Pressure 154/92 177/89 166/89 O2 Sat by Pulse 93 L 88 L 92 L Oximetry Medical Decision Making - Lab Data Result diagrams: 02/26/21 16:55 02/26/21 16:55 <Shanika Lopez - Last Filed: 02/27/21 07:53> - Medical Decision Making Upon arrival patient is placed in room 3. A thorough history and physical exam is performed. Patient is able to give a stool sample. IV is established and the patient was given a 500 bolus of normal saline. Laboratory studies are conducted and reviewed. Specimen is negative for C. diff. Positive for occult blood for which the patient states he normally always has. Patient was given a dose of Bentyl. CT of abdomen and pelvis is performed without contrast which demonstrates no acute findings. Patient feels improvement after the Bentyl and feels comfortable going home. Instructed that he must follow-up for his dialysis tomorrow. See his primary care physician in 2-4 days. Return for any new or worsening symptoms per patient agree to this was discharged home in stable condition (Shanika Lopez) - Lab Data Lab Results 02/26/21 02/26/21 02/26/21 Range/Units 16:55 16:55 16:55 WBC 7.6 (3.8-10.6) k/uL RBC 2.69 L (4.30-5.90) m/uL Hgb 9.5 L (13.0-17.5) gm/dL Hct 27.2 L (39.0-53.0) % MCV 101.1 H (80.0-100.0) fL MCH 35.4 H (25.0-35.0) pg MCHC 35.1 (31.0-37.0) g/dL RDW 16.3 H (11.5-15.5) % Plt Count 154 (150-450) k/uL MPV 8.1 Neutrophils % 91 % Lymphocytes % 3 % Monocytes % 3 % Eosinophils % 2 % Basophils % 1 % Neutrophils # 6.9 (1.3-7.7) k/uL Lymphocytes # 0.2 L (1.0-4.8) k/uL Monocytes # 0.3 (0-1.0) k/uL Eosinophils # 0.1 (0-0.7) k/uL Basophils # 0.0 (0-0.2) k/uL Anisocytosis Slight Macrocytosis Slight Sodium 141 (137-145) mmol/L Potassium 4.3 (3.5-5.1) mmol/L Chloride 95 L (98-107) mmol/L Carbon Dioxide 32 H (22-30) mmol/L Anion Gap 14 mmol/L BUN 33 H (9-20) mg/dL Creatinine 10.12 H* (0.66-1.25) mg/dL Est GFR (CKD-EPI)AfAm 6 (>60 ml/min/1.73 sqM) Est GFR (CKD-EPI)NonAf 5 (>60 ml/min/1.73 sqM) Glucose 91 (74-99) mg/dL Calcium 9.6 (8.4-10.2) mg/dL Total Bilirubin 1.1 (0.2-1.3) mg/dL AST 26 (17-59) U/L ALT 12 (4-49) U/L Alkaline Phosphatase 93 (38-126) U/L NT-Pro-B Natriuret Pep 700805 pg/mL Total Protein 7.0 (6.3-8.2) g/dL Albumin 4.4 (3.5-5.0) g/dL Amylase 82 (30-110) U/L Lipase 104 (23-300) U/L Stool Occult Blood (Negative) Stool Lactoferrin (NEGATIVE) C. difficile (EIA) Intrp (Negative) Coronavirus (PCR) (Not Detectd) 02/26/21 02/26/21 02/26/21 Range/Units 18:30 18:30 18:30 WBC (3.8-10.6) k/uL RBC (4.30-5.90) m/uL Hgb (13.0-17.5) gm/dL Hct (39.0-53.0) % MCV (80.0-100.0) fL MCH (25.0-35.0) pg MCHC (31.0-37.0) g/dL RDW (11.5-15.5) % Plt Count (150-450) k/uL MPV Neutrophils % % Lymphocytes % % Monocytes % % Eosinophils % % Basophils % % Neutrophils # (1.3-7.7) k/uL Lymphocytes # (1.0-4.8) k/uL Monocytes # (0-1.0) k/uL Eosinophils # (0-0.7) k/uL Basophils # (0-0.2) k/uL Anisocytosis Macrocytosis Sodium (137-145) mmol/L Potassium (3.5-5.1) mmol/L Chloride (98-107) mmol/L Carbon Dioxide (22-30) mmol/L Anion Gap mmol/L BUN (9-20) mg/dL Creatinine (0.66-1.25) mg/dL Est GFR (CKD-EPI)AfAm (>60 ml/min/1.73 sqM) Est GFR (CKD-EPI)NonAf (>60 ml/min/1.73 sqM) Glucose (74-99) mg/dL Calcium (8.4-10.2) mg/dL Total Bilirubin (0.2-1.3) mg/dL AST (17-59) U/L ALT (4-49) U/L Alkaline Phosphatase (38-126) U/L NT-Pro-B Natriuret Pep pg/mL Total Protein (6.3-8.2) g/dL Albumin (3.5-5.0) g/dL Amylase (30-110) U/L Lipase (23-300) U/L Stool Occult Blood Positive (Negative) Stool Lactoferrin (NEGATIVE) C. difficile (EIA) Intrp Negative (Negative) Coronavirus (PCR) Not Detected (Not Detectd) 02/26/21 Range/Units 18:30 WBC (3.8-10.6) k/uL RBC (4.30-5.90) m/uL Hgb (13.0-17.5) gm/dL Hct (39.0-53.0) % MCV (80.0-100.0) fL MCH (25.0-35.0) pg MCHC (31.0-37.0) g/dL RDW (11.5-15.5) % Plt Count (150-450) k/uL MPV Neutrophils % % Lymphocytes % % Monocytes % % Eosinophils % % Basophils % % Neutrophils # (1.3-7.7) k/uL Lymphocytes # (1.0-4.8) k/uL Monocytes # (0-1.0) k/uL Eosinophils # (0-0.7) k/uL Basophils # (0-0.2) k/uL Anisocytosis Macrocytosis Sodium (137-145) mmol/L Potassium (3.5-5.1) mmol/L Chloride (98-107) mmol/L Carbon Dioxide (22-30) mmol/L Anion Gap mmol/L BUN (9-20) mg/dL Creatinine (0.66-1.25) mg/dL Est GFR (CKD-EPI)AfAm (>60 ml/min/1.73 sqM) Est GFR (CKD-EPI)NonAf (>60 ml/min/1.73 sqM) Glucose (74-99) mg/dL Calcium (8.4-10.2) mg/dL Total Bilirubin (0.2-1.3) mg/dL AST (17-59) U/L ALT (4-49) U/L Alkaline Phosphatase (38-126) U/L NT-Pro-B Natriuret Pep pg/mL Total Protein (6.3-8.2) g/dL Albumin (3.5-5.0) g/dL Amylase (30-110) U/L Lipase (23-300) U/L Stool Occult Blood (Negative) Stool Lactoferrin POSITIVE A (NEGATIVE) C. difficile (EIA) Intrp (Negative) Coronavirus (PCR) (Not Detectd) Disposition <Omero Abdullahi P - Last Filed: 02/26/21 15:49> Is patient prescribed a controlled substance at d/c from ED?: No Time of Disposition: 20:18 <Shanika Lopez - Last Filed: 02/27/21 07:53> Clinical Impression: Nausea & vomiting, Abdominal pain, Diarrhea, End stage renal disease on dialysis Disposition: HOME SELF-CARE Condition: Stable Instructions (If sedation given, give patient instructions): Acute Diarrhea (ED) Additional Instructions: Please follow up with your PCP in 2-4 days. Take the Zofran for nausea and Bentyl for diarrhea. Return to the ED for any new or worsening symptoms. Prescriptions: Dicyclomine [Bentyl] 10 mg PO TID PRN #15 capsule PRN Reason: Diarrhea Ondansetron Odt [Zofran Odt] 4 mg PO Q8HR PRN #10 tab PRN Reason: Nausea Referrals: Kut,Jaylen A, MD [Primary Care Provider] - 1-2 days
[2021-02-26 17:05] LABS: Anisocytosis Slight; Basophils % (A) 1 %; Eosinophils # (A) 0.1 k/uL (0-0.7); Eosinophils % (A) 2 %; HCT 27.2 % (39.0-53.0); HGB 9.5 gm/dL (13.0-17.5); Lymphocytes # (A) 0.2 k/uL (1.0-4.8); Lymphocytes % (A) 3 %; MCH 35.4 pg (25.0-35.0); MCHC 35.1 g/dL (31.0-37.0); MCV 101.1 fL (80.0-100.0); Macrocytosis Slight; Mean Platelet Volume 8.1; Monocytes # (A) 0.3 k/uL (0-1.0); Monocytes % (A) 3 %; Neutrophils # (A) 6.9 k/uL (1.3-7.7); Neutrophils % (A) 91 %; Platelet Count 154 k/uL (150-450); RBC 2.69 m/uL (4.30-5.90); RDW 16.3 % (11.5-15.5); WBC 7.6 k/uL (3.8-10.6)
[2021-02-26 17:19] LABS: Albumin 4.4 g/dL (3.5-5.0); Calcium 9.6 mg/dL (8.4-10.2); Potassium 4.3 mmol/L (3.5-5.1); Total Bilirubin 1.1 mg/dL (0.2-1.3)
[2021-02-26] MEDS ORDERED: SODIUM CHLORIDE 0.9% 500 ML 500 ML IV ONE (17:55)
[2021-02-26 18:33] VITALS: RESP 18
[2021-02-26 19:28] VITALS: BP 166/89; PULSE 90
--- NOTE | 2021-02-26 19:34 | CT ---
EXAMINATION TYPE: CT abdomen pelvis wo con DATE OF EXAM: 02/26/2021 COMPARISON: None available. HISTORY: abdominal pain, nausea, vomiting CT DLP: 481.8 mGycm Automated exposure control for dose reduction was used. TECHNIQUE: Helical acquisition of images was performed from the lung bases through the pelvis. FINDINGS: LUNG BASES: Moderate bibasilar hazy opacities without pleural effusion. LIVER/GB: No significant abnormality is appreciated. PANCREAS: No significant abnormality is seen. SPLEEN: No significant abnormality is seen. ADRENALS: No significant abnormality is seen. KIDNEYS: Marked bilateral renal atrophy with small remnant. No hydronephrosis. Simple-appearing bilat eral few renal cysts, measuring up to 1.1 cm. Bilateral renal atherosclerotic calcifications versus l ess favored small nonobstructing calculi. FREE AIR: No free air is visualized RETROPERITONEAL ADENOPATHY: None visualized REPRODUCTIVE ORGANS: No significant abnormality is seen URINARY BLADDER: No significant abnormality is seen. PELVIC ADENOPATHY: None visualized. OSSEOUS STRUCTURES: No significant abnormality is seen. BOWEL: Nonspecific fluid-filled, nondilated bowel loops surrounding the abdomen. No bowel obstructio n, free air or fluid. OTHER: Mild atherosclerotic disease. IMPRESSION: NONSPECIFIC FLUID-FILLED BOWEL LOOPS WITHOUT BOWEL OBSTRUCTION. RENAL ATROPHY. MODERATE BIBASILAR OPACITIES, SUGGESTIVE OF EDEMA.
[2021-02-26] MEDS ORDERED: DICYCLOMINE 10 MG CAP PO STA (19:53)
[2021-02-26] MEDS ORDERED: ONDANSETRON 4 MG ODT STARTER PACK 2 TAB BTL PO STA (20:13)
== END 2021-02-26 20:55 | disposition home or self-care (01) ==
LOC: EC 14:51
DX: I12.0 Hypertensive chronic kidney disease with stage 5 chronic kidney disease or end stage renal disease (principal); N18.6 End stage renal disease; E78.5 Hyperlipidemia, unspecified; F17.200 Nicotine dependence, unspecified, uncomplicated; I48.0 Paroxysmal atrial fibrillation; Z79.899 Other long term (current) drug therapy; Z86.73 Personal history of transient ischemic attack (TIA), and cerebral infarction without residual deficits; Z99.2 Dependence on renal dialysis
CPT/HCPCS: 83880; 80053; 82150; 83690; 85025; 82272; 87324; 87045; 83630; 87046; 87635; 74176; 99284; 96360; S0119

== ENCOUNTER 2021-05-21 03:46 | Inpatient (IN) | payer MEDICARE, BC ==
--- NOTE | 2021-05-21 04:23 | XR ---
EXAMINATION TYPE: XR chest 2V DATE OF EXAM: 05/21/2021 COMPARISON: 02/02/2021 HISTORY: Difficulty breathing TECHNIQUE: FINDINGS: Heart and mediastinum are normal. There are extensive airspace infiltrates in the mid and l ower lung kent. There are chest leads. There is no heart failure. There is no definite pleural effu katie. IMPRESSION: Extensive bilateral lower lobe pneumonia is mostly new compared to old exam.
[2021-05-21 04:27] LABS: Anisocytosis Slight; Basophils # (A) 0.1 k/uL (0-0.2); Basophils % (A) 1 %; Eosinophils # (A) 0.1 k/uL (0-0.7); Eosinophils % (A) 2 %; Lymphocytes # (A) 0.8 k/uL (1.0-4.8); Lymphocytes % (A) 12 %; MCH 34.1 pg (25.0-35.0); MCHC 34.4 g/dL (31.0-37.0); MCV 99.2 fL (80.0-100.0); Macrocytosis Slight; Monocytes # (A) 0.3 k/uL (0-1.0); Monocytes % (A) 5 %; Neutrophils # (A) 5.2 k/uL (1.3-7.7); Neutrophils % (A) 79 %; Platelet Count 97 k/uL (150-450); RBC 1.97 m/uL (4.30-5.90); RDW 16.1 % (11.5-15.5); WBC 6.6 k/uL (3.8-10.6)
--- NOTE | 2021-05-21 04:31 | ED ---
SOB HPI - General Chief Complaint: Shortness of Breath Stated Complaint: NICHOLAS Time Seen by Provider: 05/21/21 04:07 Source: patient Mode of arrival: wheelchair Limitations: no limitations - History of Present Illness Initial Comments: This patient is a 51-year-old man with history of end-stage renal disease on hemodialysis. The patient presents with complaint of worsening of his respiratory status. Patient states that over the past few days she has been feeling more short of breath. Tonight he woke up and was not able to catch his breath. The patient states that it reminds him very much of when he has been very anemic in the past. He has not noted bloody or tarry stools. He states he may be having a touch of hemoptysis. He does have a chronic cough denies any sputum. No fever or chills. No chest pain. MD Complaint: shortness of breath Onset/Timin -: days(s) Severity scale (1-10): 0 Consistency: constant Improves With: nothing Worsens With: nothing Known History Of: other (Kidney failure) Associated Symptoms: cough Treatments Prior to Arrival: oxygen - Related Data Home Medications Medication Instructions Recorded Confirmed Sevelamer [Renvela] 800 mg PO AC-TID 06/16/19 05/27/21 Pantoprazole [Protonix] 40 mg PO BID@0700,1700 04/08/20 05/27/21 hydrALAZINE HCL [Apresoline] 100 mg PO TID@0700,1200,1700 04/08/20 05/27/21 levETIRAcetam 1,000 mg PO BID@0700,1700 04/08/20 05/27/21 Atorvastatin [Lipitor] 20 mg PO DAILY@0700 05/30/20 05/27/21 Gabapentin [Neurontin] 100 mg PO BID@0700,1700 05/30/20 05/27/21 amLODIPine [Norvasc] 5 mg PO BID@0700,1700 05/30/20 05/27/21 Calcium Acetate [PhosLo] 667 mg PO TID@0700,1200,1700 12/15/20 05/27/21 Previous Rx's Medication Instructions Recorded Labetalol [Trandate] 200 mg PO BID@0700,1700 #60 tablet 07/23/20 Allergies Allergy/AdvReac Type Severity Reaction Status Date / Time hydromorphone [From Dilaudid] AdvReac Hallucinati Verified 05/27/21 10:25 ons morphine AdvReac Hallucinati Verified 05/27/21 10:25 ons tramadol AdvReac Hallucinati Verified 05/27/21 10:25 ons Review of Systems ROS Statement: Those systems with pertinent positive or pertinent negative responses have been documented in the HPI. ROS Other: All systems not noted in ROS Statement are negative. Constitutional: Denies: fever, chills Respiratory: Reports: as per HPI, cough (Chronic), dyspnea, hemoptysis (Trace) Cardiovascular: Reports: dyspnea on exertion. Denies: chest pain, palpitations, orthopnea, edema, syncope Gastrointestinal: Denies: abdominal pain, nausea, vomiting, diarrhea Genitourinary: Denies: dysuria, hematuria Musculoskeletal: Denies: back pain Skin: Denies: rash Neurological: Denies: headache, weakness, numbness Past Medical History Past Medical History: Atrial Fibrillation, Blood Disorder, CVA/TIA, Eye Disorder, GI Bleed, Hyperlipidemia, Hypertension, Renal Disease, Seizure Disord er Additional Past Medical History / Comment(s): End-stage renal disease on hemodialysis schedule of Saturday, and Saturday , urolithiasis/nephrolithiasis, acute hypoxic respiratory failure after missed dialysis, paroxysmal Afib, chronic anemia, chronic thrombocytopenia, lower GI bleed, duodenal ulcer, seizures with last seizures 12/2017, 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 eye injection with steroid on 04/04 for eye "stroke" Past Anesthesia/Blood Transfusion Reactions: No Reported Reaction Additional Past Anesthesia/Blood Transfusion Reaction / Comment(s): Pt has received blood in past without reaction. Past Psychological History: No Psychological Hx Reported Smoking Status: Current every day smoker Past Alcohol Use History: None Reported Past Drug Use History: None Reported - Past Family History Father Family Medical History: Cancer, CVA/TIA Additional Family Medical History / Comment(s): Father had lymphoma. He had a CVA Mother Family Medical History: CVA/TIA Additional Family Medical History / Comment(s): Mother had a CVA. Sister(s) Additional Family Medical History / Comment(s): Patient has 5 sisters one has from an aneurysm in the brain. 2 sisters have history of kidney stones. Patient has one brother that was shot as cause of , he was on the kidney transplant list. Patient has 6 children with no major medical problems. General Exam Limitations: no limitations General appearance: alert, in no apparent distress Head exam: Present: atraumatic, normocephalic Eye exam: Present: normal appearance. Absent: scleral icterus, conjunctival injection Neck exam: Present: normal inspection. Absent: tenderness, meningismus, full ROM Respiratory exam: Present: normal lung sounds bilaterally, respiratory distress (Mild tachypnea), rales (Bases). Absent: wheezes, rhonchi, stridor, accessory muscle use, decreased breath sounds Cardiovascular Exam: Present: regular rate, normal rhythm, normal heart sounds. Absent: systolic murmur, diastolic murmur, rubs, gallop GI/Abdominal exam: Present: soft. Absent: distended, tenderness, guarding, rebound, rigid, mass Extremities exam: Present: normal inspection, normal capillary refill. Absent: pedal edema, calf tenderness Back exam: Present: normal inspection. Absent: CVA tenderness (R), CVA tenderness (L) Neurological exam: Present: alert Skin exam: Present: warm, dry, intact, pallor. Absent: rash Course Vital Signs 05/21/21 05/21/21 05/21/21 03:48 04:04 06:17 Temperature 98 F Pulse Rate 81 70 Respiratory 26 H 28 H 22 Rate Blood Pressure 184/91 177/91 O2 Sat by Pulse 94 L 94 L Oximetry Medical Decision Making - Lab Data Result diagrams: 05/21/21 20:30 05/21/21 04:12 Lab Results 05/21/21 05/21/21 05/21/21 Range/Units 04:12 04:12 04:12 WBC 6.6 (3.8-10.6) k/uL RBC 1.97 L (4.30-5.90) m/uL Hgb 6.7 L* (13.0-17.5) gm/dL Hct 19.6 L* (39.0-53.0) % MCV 99.2 (80.0-100.0) fL MCH 34.1 (25.0-35.0) pg MCHC 34.4 (31.0-37.0) g/dL RDW 16.1 H (11.5-15.5) % Plt Count 97 L (150-450) k/uL MPV 8.0 Neutrophils % 79 % Lymphocytes % 12 % Monocytes % 5 % Eosinophils % 2 % Basophils % 1 % Neutrophils # 5.2 (1.3-7.7) k/uL Lymphocytes # 0.8 L (1.0-4.8) k/uL Monocytes # 0.3 (0-1.0) k/uL Eosinophils # 0.1 (0-0.7) k/uL Basophils # 0.1 (0-0.2) k/uL Anisocytosis Slight Macrocytosis Slight PT 10.8 (9.0-12.0) sec INR 1.0 (<1.2) APTT 24.5 (22.0-30.0) sec Sodium 140 (137-145) mmol/L Potassium 4.1 (3.5-5.1) mmol/L Chloride 97 L (98-107) mmol/L Carbon Dioxide 32 H (22-30) mmol/L Anion Gap 11 mmol/L BUN 39 H (9-20) mg/dL Creatinine 9.48 H* (0.66-1.25) mg/dL Est GFR (CKD-EPI)AfAm 7 (>60 ml/min/1.73 sqM) Est GFR (CKD-EPI)NonAf 6 (>60 ml/min/1.73 sqM) Glucose 95 (74-99) mg/dL Plasma Lactic Acid Tenzin (0.7-2.0) mmol/L Calcium 9.2 (8.4-10.2) mg/dL Phosphorus (2.5-4.5) mg/dL Magnesium 1.8 (1.6-2.3) mg/dL Total Bilirubin 0.9 (0.2-1.3) mg/dL AST 29 (17-59) U/L ALT 16 (4-49) U/L Alkaline Phosphatase 96 (38-126) U/L Troponin I (0.000-0.034) ng/mL NT-Pro-B Natriuret Pep pg/mL Total Protein 6.2 L (6.3-8.2) g/dL Albumin 4.0 (3.5-5.0) g/dL Procalcitonin (0.02-0.09) ng/mL Blood Type Blood Type Recheck Bld Type Recheck Status Antibody Screen Crossmatch Spec Expiration Date 05/21/21 05/21/21 05/21/21 Range/Units 04:12 04:12 04:12 WBC (3.8-10.6) k/uL RBC (4.30-5.90) m/uL Hgb (13.0-17.5) gm/dL Hct (39.0-53.0) % MCV (80.0-100.0) fL MCH (25.0-35.0) pg MCHC (31.0-37.0) g/dL RDW (11.5-15.5) % Plt Count (150-450) k/uL MPV Neutrophils % % Lymphocytes % % Monocytes % % Eosinophils % % Basophils % % Neutrophils # (1.3-7.7) k/uL Lymphocytes # (1.0-4.8) k/uL Monocytes # (0-1.0) k/uL Eosinophils # (0-0.7) k/uL Basophils # (0-0.2) k/uL Anisocytosis Macrocytosis PT (9.0-12.0) sec INR (<1.2) APTT (22.0-30.0) sec Sodium (137-145) mmol/L Potassium (3.5-5.1) mmol/L Chloride (98-107) mmol/L Carbon Dioxide (22-30) mmol/L Anion Gap mmol/L BUN (9-20) mg/dL Creatinine (0.66-1.25) mg/dL Est GFR (CKD-EPI)AfAm (>60 ml/min/1.73 sqM) Est GFR (CKD-EPI)NonAf (>60 ml/min/1.73 sqM) Glucose (74-99) mg/dL Plasma Lactic Acid Tenzin 0.5 L (0.7-2.0) mmol/L Calcium (8.4-10.2) mg/dL Phosphorus (2.5-4.5) mg/dL Magnesium (1.6-2.3) mg/dL Total Bilirubin (0.2-1.3) mg/dL AST (17-59) U/L ALT (4-49) U/L Alkaline Phosphatase (38-126) U/L Troponin I 0.023 (0.000-0.034) ng/mL NT-Pro-B Natriuret Pep 50441 pg/mL Total Protein (6.3-8.2) g/dL Albumin (3.5-5.0) g/dL Procalcitonin (0.02-0.09) ng/mL Blood Type Blood Type Recheck Bld Type Recheck Status Antibody Screen Crossmatch Spec Expiration Date 05/21/21 05/21/21 05/21/21 Range/Units 04:12 04:12 04:50 WBC (3.8-10.6) k/uL RBC (4.30-5.90) m/uL Hgb (13.0-17.5) gm/dL Hct (39.0-53.0) % MCV (80.0-100.0) fL MCH (25.0-35.0) pg MCHC (31.0-37.0) g/dL RDW (11.5-15.5) % Plt Count (150-450) k/uL MPV Neutrophils % % Lymphocytes % % Monocytes % % Eosinophils % % Basophils % % Neutrophils # (1.3-7.7) k/uL Lymphocytes # (1.0-4.8) k/uL Monocytes # (0-1.0) k/uL Eosinophils # (0-0.7) k/uL Basophils # (0-0.2) k/uL Anisocytosis Macrocytosis PT (9.0-12.0) sec INR (<1.2) APTT (22.0-30.0) sec Sodium (137-145) mmol/L Potassium (3.5-5.1) mmol/L Chloride (98-107) mmol/L Carbon Dioxide (22-30) mmol/L Anion Gap mmol/L BUN (9-20) mg/dL Creatinine (0.66-1.25) mg/dL Est GFR (CKD-EPI)AfAm (>60 ml/min/1.73 sqM) Est GFR (CKD-EPI)NonAf (>60 ml/min/1.73 sqM) Glucose (74-99) mg/dL Plasma Lactic Acid Tenzin (0.7-2.0) mmol/L Calcium (8.4-10.2) mg/dL Phosphorus 4.8 H (2.5-4.5) mg/dL Magnesium (1.6-2.3) mg/dL Total Bilirubin (0.2-1.3) mg/dL AST (17-59) U/L ALT (4-49) U/L Alkaline Phosphatase (38-126) U/L Troponin I (0.000-0.034) ng/mL NT-Pro-B Natriuret Pep pg/mL Total Protein (6.3-8.2) g/dL Albumin (3.5-5.0) g/dL Procalcitonin 0.59 H (0.02-0.09) ng/mL Blood Type O Positive Blood Type Recheck O Pos Bld Type Recheck Status No Antibody Screen NEGATIVE Crossmatch See Detail Spec Expiration Date 05/24/2021 2759 - EKG Data -: EKG Interpreted by Me EKG shows normal: sinus rhythm, intervals (Prolonged QT.), QRS complexes (LVH with repolarization abnormality) Rate: normal (Rate 79 bpm) Interpretation: LVH Disposition Clinical Impression: End stage renal disease on dialysis, Anemia, Congestive heart failure, Pneumonia Disposition: ADMITTED IP TO THIS [facility] Condition: Serious Is patient prescribed a controlled substance at d/c from ED?: No
[2021-05-21 04:35] LABS: HCT 19.6 % (39.0-53.0); HGB 6.7 gm/dL (13.0-17.5)
[2021-05-21 04:37] LABS: Calcium 9.2 mg/dL (8.4-10.2); Magnesium 1.8 mg/dL (1.6-2.3); Potassium 4.1 mmol/L (3.5-5.1); Total Bilirubin 0.9 mg/dL (0.2-1.3); Total Protein 6.2 g/dL (6.3-8.2)
[2021-05-21 04:45] LABS: Partial Thromboplastin Time 24.5 sec (22.0-30.0); Prothrombin Time 10.8 sec (9.0-12.0)
[2021-05-21] MEDS ORDERED: PIPERACILLIN-TAZOBACTAM 3.375 GM in SODIUM CHLORIDE 0.9% 100 ML IVPB STA (05:37)
[2021-05-21] MEDS ORDERED: VANCOMYCIN IV PER PHARMACY 1 EACH MISC MISCELLANE PRN (05:37)
[2021-05-21] MEDS ORDERED: PNEUMONIA PROTOCOL UTILIZED 1 EACH MISC PO PRN (05:38)
[2021-05-21] MEDS ORDERED: VANCOMYCIN 1,250 MG in SODIUM CHLORIDE 0.9% 250 ML IVPB ONE (05:45)
--- NOTE | 2021-05-21 08:51 | P.NPCON ---
History of Present Illness - Reason for Consult end stage renal disease - History of Present Illness Reason for consultation: End-stage renal disease History of present illness: I sent patient is a 51-year-old male seen in renal consultation for end-stage renal disease. He is maintained on hemodialysis on Saturday schedule. Patient states he's been feeling short of breath for the last couple of weeks. He does complain of a productive cough with mostly clear phlegm. He denies any vomiting or diarrhea. No fever or chills. No chest pain. He denies any melena or hematochezia. He does have history of GI bleed requiring blood transfusion in the past. Patient's hemoglobin this admission was 6.7. Blood pressure on the higher side. He is receiving IV antibiotics. Last hemodialysis yesterday. Vital signs are stable. General: The patient appeared well nourished and normally developed. HEENT: Head exam is unremarkable. Neck is without jugular venous distension. LUNGS: Breath sounds decreased. HEART: Rate and Rhythm are regular. ABDOMEN: Soft, no distention. EXTREMITITES: No edema. 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 eye injection with steroid on 04/04 for eye "stroke" Past Anesthesia/Blood Transfusion Reactions: No Reported Reaction Additional Past Anesthesia/Blood Transfusion Reaction / Comment(s): Pt has received blood in past without reaction. Past Psychological History: No Psychological Hx Reported Additional Psychological History / Comment(s): Pt resides with his spouse of 17 yrs. He drives rarely. His spouse takes him to appRentalutions or his sister does. He is otherwise independent. Smoking Status: Current every day smoker Past Alcohol Use History: None Reported Additional Past Alcohol Use History / Comment(s): Patient is a smoker one pack per day since he was 17 years of age. Currently down to half pack per day. He denies any marijuana, illicit drug use, alcohol use, vaping. Past Drug Use History: None Reported - Past Family History Father Family Medical History: Cancer, CVA/TIA Additional Family Medical History / Comment(s): Father had lymphoma. He had a CVA Mother Family Medical History: Dementia Additional Family Medical History / Comment(s): Mother had a CVA. Sister(s) Additional Family Medical History / Comment(s): Patient has 5 sisters one has d ied from an aneurysm in the brain. 2 sisters have history of kidney stones. Patient has one brother that was shot as cause of . Patient has 6 children with no major medical problems. Medications and Allergies Home Medications Medication Instructions Recorded Confirmed Type Furosemide [Lasix] 80 mg PO BID@0700,1700 06/16/19 04/13/21 History Sevelamer [Renvela] 3,200 mg PO AC-TID 06/16/19 04/13/21 History Pantoprazole [Protonix] 40 mg PO BID@0700,1700 04/08/20 04/13/21 History hydrALAZINE HCL [Apresoline] 100 mg PO TID@0700,1200,1700 04/08/20 04/13/21 History levETIRAcetam 1,000 mg PO BID@0700,1700 04/08/20 04/13/21 History methocarbamoL [Robaxin] 750 mg PO TID@0700,1200,1700 PRN 04/08/20 04/13/21 History Atorvastatin [Lipitor] 20 mg PO DAILY@0700 05/30/20 04/13/21 History Gabapentin [Neurontin] 100 mg PO BID@0700,1700 05/30/20 04/13/21 History amLODIPine [Norvasc] 5 mg PO BID@0700,1700 05/30/20 04/13/21 History Labetalol [Trandate] 200 mg PO BID@0700,1700 #60 tablet 06/09/20 04/13/21 Rx Calcium Acetate [PhosLo] 667 mg PO TID@0700,1200,1700 12/15/20 04/13/21 History Acetaminophen-Codeine 300-30mg 1 tab PO DAILY PRN 02/26/21 04/13/21 History [Tylenol w/codeine #3] Dicyclomine [Bentyl] 10 mg PO TID PRN #15 capsule 02/26/21 04/13/21 Rx Ondansetron Odt [Zofran Odt] 4 mg PO Q8HR PRN #10 tab 02/26/21 04/13/21 Rx Allergies Allergy/AdvReac Type Severity Reaction Status Date / Time hydromorphone [From Dilaudid] AdvReac Hallucinati Verified 05/21/21 03:53 ons morphine AdvReac Hallucinati Verified 05/21/21 03:53 ons Physical Exam Vitals: Vital Signs Temp Pulse Pulse Resp BP BP Pulse Ox 05/21/21 06:27 98.1 F 75 18 170/88 95 05/21/21 06:17 70 22 177/91 94 L 05/21/21 04:04 28 H 05/21/21 03:48 98 F 81 26 H 184/91 94 L Intake and Output 05/20/21 05/21/21 05/21/21 22:59 06:59 14:59 Intake Total 100 Balance 100 Intake: Intake, IV Titration 100 Amount Piperacillin-Tazobactam 3 100 .375 gm In Sodium Chloride 0.9% 100 ml @ 200 mls/hr IVPB ONCE STA Rx#:[id number] Other: Weight 72.575 kg Results - Lab Results Most recent lab results Calcium 9.2 mg/dL (8.4-10.2) 05/21/21 04:12 Magnesium 1.8 mg/dL (1.6-2.3) 05/21/21 04:12 05/21/21 04:12 05/21/21 04:12 Assessment and Plan Plan: Assessment: 1. End-stage renal disease maintained on hemodialysis Saturday. 2. Pneumonia maintained on antibiotics. 3. Anemia of chronic kidney disease. No active bleeding. 4. Hypertension with chronic kidney disease. 5. Chronic kidney disease mineral bone disease. Plan: Hemodialysis tomorrow. Transfuse 1 unit of packed red cells today. Add Aranesp. Resume home antihypertensives. Check phosphorus level. Resume Renvela. Monitor vancomycin levels. Target level near 15 Thank you for the consultation. I will continue to follow patient with you during his hospital stay.
[2021-05-21] MEDS ORDERED: hydrALAZINE HCL 50 MG TAB PO SCH (09:00)
[2021-05-21] MEDS ORDERED: amLODIPine 5 MG TAB PO SCH (09:00)
[2021-05-21] MEDS ORDERED: DARBEPOETIN ALFA 40 MCG/0.4 ML SYRINGE SQ SCH (10:00)
[2021-05-21] MEDS ORDERED: IPRATROPIUM-ALBUTEROL 3 ML NEB INHALATION PRN (11:23)
--- NOTE | 2021-05-21 11:23 | P.CNPUL ---
History of Present Illness Consult date: 05/21/21 Requesting physician: Jacqueline English Reason for consult: dyspnea, COPD, hypoxemia Chief complaint: Shortness of breath. History of present illness: Pulmonary consultation dated 05/21/2021. 51-year-old male, who was last seen by our group about a year ago. At that time, the patient had an acute GI bleed, and received a total of 7 units of PRBCs. He also has a history of end-stage renal disease, currently on 3, week hemodialysis, essential hypertension, seizure disorder, previous history of empyema requiring decortication and pericardial window, CVA, tobacco dependence syndrome. The patient continues to smoke. The patient was admitted through the emergency department, on May 21. The patient came in with a 3 or 4 days worth of increasing and progressive shortness of breath. He had bit of a cough, mostly nonproductive. He denied any chest pain or chest discomfort. There is no fever or chills. He also denied any GI or issues. The patient continues to smoke cigarettes. White count 6.6, hemoglobin 6.7, hematocrit 19.6, and platelet count 97,000. PT, INR, and PTT were normal. Sodium 140, potassium 4.1, chlorides 97, CO2 32, anion gap 11, BUN 39, creatinine 9.48. The patient's BNP, with 75,300. The chest x-ray showed diffuse bilateral infiltrates, which could be fluid overload, or pneumonia. A pro-calcitonin level was ordered. Review of Systems REVIEW OF SYSTEMS: CONSTITUTIONAL: [Negative.] NEUROLOGIC: [ Negative.] HEENT: [ Negative.] CARDIAC: [Negative.] PULMONARY: Shortness of breath and cough. GI: [Negative.] : [Negative.] RHEUMATOLOGIC: [ Negative.] IMMUNOLOGIC: [ Negative.] ENDOCRINE: [Negative. 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 eye injection with steroid on 04/04 for eye "stroke" Past Anesthesia/Blood Transfusion Reactions: No Reported Reaction Additional Past Anesthesia/Blood Transfusion Reaction / Comment(s): Pt has received blood in past without reaction. Past Psychological History: No Psychological Hx Reported Additional Psychological History / Comment(s): Pt resides with his spouse of 17 yrs. He drives rarely. His spouse takes him to app[employer] or his sister does. He is otherwise independent. Smoking Status: Current every day smoker Past Alcohol Use History: None Reported Additional Past Alcohol Use History / Comment(s): Patient is a smoker one pack per day since he was 17 years of age. Currently down to half pack per day. He denies any marijuana, illicit drug use, alcohol use, vaping. Past Drug Use History: None Reported - Past Family History Father Family Medical History: Cancer, CVA/TIA Additional Family Medical History / Comment(s): Father had lymphoma. He had a CVA Mother Family Medical History: Dementia Additional Family Medical History / Comment(s): Mother had a CVA. Sister(s) Additional Family Medical History / Comment(s): Patient has 5 sisters one has from an aneurysm in the brain. 2 sisters have history of kidney stones. Patient has one brother that was shot as cause of . Patient has 6 children with no major medical problems. Medications and Allergies Home Medications Medication Instructions Recorded Confirmed Type Furosemide [Lasix] 80 mg PO BID@0700,1700 06/16/19 05/21/21 History Sevelamer [Renvela] 3,200 mg PO AC-TID 06/16/19 05/21/21 History Pantoprazole [Protonix] 40 mg PO BID@0700,1700 04/08/20 05/21/21 History hydrALAZINE HCL [Apresoline] 100 mg PO TID@0700,1200,1700 04/08/20 05/21/21 History levETIRAcetam 1,000 mg PO BID@0700,1700 04/08/20 05/21/21 History methocarbamoL [Robaxin] 750 mg PO TID@0700,1200,1700 PRN 04/08/20 05/21/21 History Atorvastatin [Lipitor] 20 mg PO DAILY@0700 05/30/20 05/21/21 History Gabapentin [Neurontin] 100 mg PO BID@0700,1700 05/30/20 05/21/21 History amLODIPine [Norvasc] 5 mg PO BID@0700,1700 05/30/20 05/21/21 History Labetalol [Trandate] 200 mg PO BID@0700,1700 #60 tablet 06/09/20 05/21/21 Rx Calcium Acetate [PhosLo] 667 mg PO TID@0700,1200,1700 12/15/20 05/21/21 History Acetaminophen with Codeine 1 tab PO DAILY PRN 05/21/21 05/21/21 History [Tylenol w/Codeine #4 Tablet] Doxazosin [Cardura] 4 mg PO BID@0700,1700 05/21/21 05/21/21 History Allergies Allergy/AdvReac Type Severity Reaction Status Date / Time hydromorphone [From Dilaudid] AdvReac Hallucinati Verified 05/21/21 10:04 ons morphine AdvReac Hallucinati Verified 05/21/21 10:04 ons tramadol AdvReac Hallucinati Verified 05/21/21 10:04 ons Physical Exam Osteopathic Statement: *. No significant issues noted on an osteopathic structural exam other than those noted in the History and Physical/Consult. Vitals: Vital Signs Temp Pulse Pulse Resp BP BP Pulse Ox 05/21/21 10:19 98.4 F 72 19 181/88 96 05/21/21 10:09 98.0 F 75 18 166/77 98 05/21/21 06:27 98.1 F 75 18 170/88 95 05/21/21 06:17 70 22 177/91 94 L 05/21/21 04:04 28 H 05/21/21 03:48 98 F 81 26 H 184/91 94 L Intake and Output 05/20/21 05/21/21 05/21/21 22:59 06:59 14:59 Intake Total 100 240 Balance 100 240 Intake: Intake, IV Titration 100 Amount Piperacillin-Tazobactam 3 100 .375 gm In Sodium Chloride 0.9% 100 ml @ 200 mls/hr IVPB ONCE STA Rx#:[id number] Oral 240 Blood Product 0 Rc Cpda-1 Unit 0 [id number] Other: Weight 72.575 kg No acute distress, oriented 3. The patient's on 3 L nasal cannula, with saturations in the 98% range. No conversational dyspnea or use of accessory muscles noted. HEENT examination is grossly unremarkable. Neck supple. Full range of motion. No adenopathy thyromegaly or neck vein distention. Cardiovascular examination reveals regular rhythm rate. S1-S2 normal. No S3 or S4. No discernible murmur noted. Heart rate 72 bpm. Heart sounds are distant. Lungs reveal scattered rhonchi and crackles. Breath sounds equal. No wheezes. Abdomen soft bowel sounds are heard. No masses or tenderness. Extremities are intact. Trace edema. No cyanosis or clubbing. Skin is without rash or lesion. Neurologic examination is brief but nonfocal. Results - Laboratory Findings CBC and BMP: 05/21/21 04:12 05/21/21 04:12 PT/INR, D-dimer PT 10.8 sec (9.0-12.0) 05/21/21 04:12 INR 1.0 (<1.2) 05/21/21 04:12 Abnormal lab findings: Abnormal Labs 05/21/21 05/21/21 05/21/21 04:12 04:12 04:12 RBC 1.97 L Hgb 6.7 L* Hct 19.6 L* RDW 16.1 H Plt Count 97 L Lymphocytes # 0.8 L Chloride 97 L Carbon Dioxide 32 H BUN 39 H Creatinine 9.48 H* Plasma Lactic Acid Tenzin 0.5 L Phosphorus Total Protein 6.2 L Crossmatch 05/21/21 05/21/21 04:12 04:50 RBC Hgb Hct RDW Plt Count Lymphocytes # Chloride Carbon Dioxide BUN Creatinine Plasma Lactic Acid Tenzin Phosphorus 4.8 H Total Protein Crossmatch See Detail - Diagnostic Findings Chest x-ray: image reviewed Assessment and Plan Assessment: Shortness of breath, likely multifactorial, in part related to fluid overload, secondary to missed hemodialysis appointments, and also possible pneumonia. Anemia, she received 1 unit PRBCs. End-stage renal disease, currently on 3 time a week hemodialysis, the patient being noncompliant at times. Ongoing tobacco use with nicotine addiction, rule out COPD. History of severe acute GI bleed, requiring 7 units of PRBCs, May,. History of benign essential hypertension. History of seizure disorder. History of CVA, involving the left thalamus. History of empyema requiring decortication, and also pericardial window. History of atrial fibrillation. History of hyperlipidemia. Multiple other medical problems and comorbidities. Plan: Plan dated 05/21/2021. Currently, the patient's on Zosyn and vancomycin. We will add some breathing treatments and the patient. The patient will need hemodialysis at his regular schedule. A nicotine patch would be helpful. We will continue to follow make recommendations where appropriate. Prognosis is certainly guarded. Time with Patient: Greater than 30
[2021-05-21] MEDS: IPRATROPIUM-ALBUTEROL 3 ML NEB INHALATION SCH ×2 (11:45→21:05)
[2021-05-21] MEDS ORDERED: Acetaminophen-Codeine 300-30mg TAB PO PRN (12:05)
[2021-05-21] MEDS: CALCIUM ACETATE 667 MG TAB PO SCH (12:25)
[2021-05-21] MEDS: hydrALAZINE HCL 50 MG TAB PO SCH (12:25)
[2021-05-21] MEDS: PANTOPRAZOLE 40 MG TABLET PO SCH (12:25)
[2021-05-21] MEDS: GABAPENTIN 100 MG CAP PO SCH (12:25)
[2021-05-21] MEDS: amLODIPine 5 MG TAB PO SCH (12:25)
[2021-05-21] MEDS: SEVELAMER 800 MG TAB PO SCH ×2 (12:26→18:59)
[2021-05-21] MEDS ORDERED: SEVELAMER 800 MG TAB PO SCH (12:30)
[2021-05-21] MEDS ORDERED: RX INFO: IV CONTRAST WAS GIVEN 1 EACH MISC MISCELLANE PRN (16:40)
--- NOTE | 2021-05-21 16:46 | P.HPIM ---
History of Present Illness H&P Date: 05/21/21 Chief Complaint: Symptomatic anemia, istory of Present Illness This is a 50-year-old male patient of Dr. Holguin with past medical history of end-stage renal disease secondary to kidney stones on hemodialysis for over 10 years 3 times weekly, Saturday, hypertension, hypertensive cardiovascular disease, seizure disorder, left thalamus stroke, previous admission for acute hypoxic respiratory failure secondary to fluid overload from missing dialysis treatments requiring mechanical ventilation, history of empyema status post VATS and pericardial window, history of chronic thrombocytopenia, tobacco use and dependence-continues to be an active smoker, paroxysmal atrial fibrillation in February 2018, history of GI bleed secondary to ulcers in the esophagus stomach and duodenum. Patient came into [facility] emergency center has been having some fatigue, he has chronic smoker's cough, however this time he mentioned that there is some intermittent hemoptysis, his hemoglobin on admission was 6.7, patient denies any black stools or melena no ascitic stools, denies any hematochezia, denies any hematuria. Patient was admitted for further workup, he will be transfused 1 unit of packed red blood cells today, RN Peña be started, for iron deficiency, and anemia of chronic disease. Iron levels to be done, chest x-ray shows bilateral infiltrates, pulmonary following, on admission white count was 6.6, hemoglobin 6.7, platelet count 97,000, INR normal, PTT normal, BUN 39, creatinine 9.4, patient was started on Zosyn and vancomycin, for suspected facility acquired pneumonia, patient is on chronic hemodialysis. No CT of the chest was done, as patient is hemoptysis is persistent, will order for one, last CT of the chest was January 2018 Review of Systems Constitutional: Reports as per HPI, Reports anorexia, Reports fatigue Ears, nose, mouth and throat: Reports as per HPI, Denies epistaxis, Denies headache, Denies nasal congestion, Denies nasal discharge, Denies post-nasal drip Cardiovascular: Reports as per HPI, Reports decreased exercise tolerance, Reports dyspnea on exertion, Denies chest pain, Denies claudication, Denies edema, Denies high blood pressure, Denies irregular heart beat, Denies leg ed bertha, Denies lightheadedness, Denies orthopnea, Denies palpitations, Denies paroxysmal nocturnal dyspnea, Denies phlebitis, Denies rapid heart beat, Denies shortness of breath, Denies syncope Respiratory: Reports as per HPI, Reports cough, Reports cough with sputum, Reports hemoptysis, Denies congestion, Denies dyspnea, Denies excessive sputum, Denies home oxygen, Denies pain, Denies pain on inspiration, Denies pleurisy, Denies respiratory infections, Denies sleep apnea, Denies snoring, Denies wheezing Gastrointestinal: Reports as per HPI, Denies abdominal pain, Denies belching, Denies bloating, Denies diarrhea, Denies early satiety, Denies hematemesis, Denies hematochezia, Denies indigestion, Denies loss of appetite, Denies melena, Denies nausea, Denies vomiting Genitourinary: Reports as per HPI, Denies flank pain, Denies hematuria Musculoskeletal: Reports as per HPI Integumentary: Reports as per HPI, Denies foot/leg ulcers, Denies wounds Neurological: Reports as per HPI, Denies change in speech, Denies gait dysfunction, Denies lack of coordination, Denies migraines, Denies motor disturbance, Denies numbness, Denies seizures Psychiatric: Reports as per HPI, Denies confusion, Denies difficulty concentrating, Denies hallucinations, Denies insomnia, Denies sleep disturbances Endocrine: Denies cold intolerance, Denies flushing, Denies polydipsia Hematologic/Lymphatic: Reports as per HPI Allergic/Immunologic: Reports as per HPI Past Medical History Past Medical History: Atrial Fibrillation, Blood Disorder, CVA/TIA, Eye Disorder, GI Bleed, Hyperlipidemia, Hypertension, Renal Disease, Seizure Disorder Additional Past Medical History / Comment(s): End-stage renal disease on hemodialysis schedule of /W/ , urolithiasis/nephrolithiasis, acute hypoxic respiratory failure after missed dialysis, paroxysmal Afib, chronic anemia, chronic thrombocytopenia, lower GI bleed, duodenal ulcer, seizures with last seizures 12/2017, L thalamus CVA no residual, pericardial effusion, L lung empyema, spinal stenosis, DDD, chronic cervical and back pain, R eye "lazy", past R ankle and R hand fractures-casted, History of Any Multi-Drug Resistant Organisms: None Reported Past Surgical History: Bladder Surgery, Orthopedic Surgery Additional Past Surgical History / Comment(s): Hemorrhoidectomy, EGDs, c olonoscopies, L sided Vats with decortication, pericardial window, hemodialysis fistula, cystoscopies/lithotripsies, bilateral renal stents, double J catheter. eye injection with steroid on 04/04 for eye "stroke" Past Anesthesia/Blood Transfusion Reactions: No Reported Reaction Additional Past Anesthesia/Blood Transfusion Reaction / Comment(s): Pt has received blood in past without reaction. Past Psychological History: No Psychological Hx Reported Additional Psychological History / Comment(s): Pt resides with his spouse of 17 yrs. He drives rarely. His spouse takes him to [employer] or his sister does. He is otherwise independent. Smoking Status: Current every day smoker Past Alcohol Use History: None Reported Additional Past Alcohol Use History / Comment(s): Patient is a smoker one pack per day since he was 17 years of age. Currently down to half pack per day. He denies any marijuana, illicit drug use, alcohol use, vaping. Past Drug Use History: None Reported - Past Family History Father Family Medical History: Cancer, CVA/TIA Additional Family Medical History / Comment(s): Father had lymphoma. He had a CVA Mother Family Medical History: Dementia Additional Family Medical History / Comment(s): Mother had a CVA. Sister(s) Additional Family Medical History / Comment(s): Patient has 5 sisters one has from an aneurysm in the brain. 2 sisters have history of kidney stones. Patient has one brother that was shot as cause of . Patient has 6 children with no major medical problems. Medications and Allergies Home Medications Medication Instructions Recorded Confirmed Type Furosemide [Lasix] 80 mg PO BID@0700,1700 06/16/19 05/21/21 History Sevelamer [Renvela] 3,200 mg PO AC-TID 06/16/19 05/21/21 History Pantoprazole [Protonix] 40 mg PO BID@0700,1700 04/08/20 05/21/21 History hydrALAZINE HCL [Apresoline] 100 mg PO TID@0700,1200,1700 04/08/20 05/21/21 History levETIRAcetam 1,000 mg PO BID@0700,1700 04/08/20 05/21/21 History methocarbamoL [Robaxin] 750 mg PO TID@0700,1200,1700 PRN 04/08/20 05/21/21 History Atorvastatin [Lipitor] 20 mg PO DAILY@0700 05/30/20 05/21/21 History Gabapentin [Neurontin] 100 mg PO BID@0700,1700 05/30/20 05/21/21 History amLODIPine [Norvasc] 5 mg PO BID@0700,1700 05/30/20 05/21/21 History Labetalol [Trandate] 200 mg PO BID@0700,1700 #60 tablet 06/09/20 05/21/21 Rx Calcium Acetate [PhosLo] 667 mg PO TID@0700,1200,1700 12/15/20 05/21/21 History Acetaminophen with Codeine 1 tab PO DAILY PRN 05/21/21 05/21/21 History [Tylenol w/Codeine #4 Tablet] Doxazosin [Cardura] 4 mg PO BID@0700,1700 05/21/21 05/21/21 History Allergies Allergy/AdvReac Type Severity Reaction Status Date / Time hydromorphone [From Dilaudid] AdvReac Hallucinati Verified 05/21/21 10:04 ons morphine AdvReac Hallucinati Verified 05/21/21 10:04 ons tramadol AdvReac Hallucinati Verified 05/21/21 10:04 ons Physical Exam Vitals: Vital Signs Temp Pulse Pulse Resp BP BP Pulse Ox 05/21/21 12:06 82 05/21/21 11:46 80 05/21/21 10:19 98.4 F 72 19 181/88 96 05/21/21 10:09 98.0 F 75 18 166/77 98 05/21/21 06:27 98.1 F 75 18 170/88 95 05/21/21 06:17 70 22 177/91 94 L 05/21/21 04:04 28 H 05/21/21 03:48 98 F 81 26 H 184/91 94 L Intake and Output 05/20/21 05/21/21 05/21/21 22:59 06:59 14:59 Intake Total 100 240 Balance 100 240 Intake: Intake, IV Titration 100 Amount Piperacillin-Tazobactam 3 100 .375 gm In Sodium Chloride 0.9% 100 ml @ 200 mls/hr IVPB ONCE STA Rx#:[id number] Oral 240 Blood Product 0 Rc Cpda-1 Unit 0 [id number] Other: Weight 72.575 kg - Constitutional General appearance: cooperative, no acute distress - EENT Eyes: EOMI, PERRLA, dentition normal, poor dentition ENT: NA/AT, normal oropharynx - Respiratory Respiratory: bilateral: CTA, negative: diminished, dullness, rales - Cardiovascular Rhythm: regular Heart sounds: normal: S1, S2 Abnormal Heart Sounds: no systolic murmur, no diastolic murmur, no rub, no S3 Gallop, no S4 Gallop, no click, no other - Gastrointestinal General gastrointestinal: normal bowel sounds, soft - Integumentary Integumentary: decreased turgor, normal - Neurologic Neurologic: CNII-XII intact - Musculoskeletal Musculoskeletal: gait normal, strength equal bilaterally - Psychiatric Psychiatric: A&O x's 3, appropriate affect, intact judgment & insight Results CBC & Chem 7: 05/21/21 04:12 05/21/21 04:12 Labs: Abnormal Lab Results - Last 24 Hours (Table) 05/21/21 05/21/21 05/21/21 Range/Units 04:12 04:12 04:12 RBC 1.97 L (4.30-5.90) m/uL Hgb 6.7 L* (13.0-17.5) gm/dL Hct 19.6 L* (39.0-53.0) % RDW 16.1 H (11.5-15.5) % Plt Count 97 L (150-450) k/uL Lymphocytes # 0.8 L (1.0-4.8) k/uL Chloride 97 L (98-107) mmol/L Carbon Dioxide 32 H (22-30) mmol/L BUN 39 H (9-20) mg/dL Creatinine 9.48 H* (0.66-1.25) mg/dL Plasma Lactic Acid Tenzin 0.5 L (0.7-2.0) mmol/L Phosphorus (2.5-4.5) mg/dL Total Protein 6.2 L (6.3-8.2) g/dL Crossmatch 05/21/21 05/21/21 Range/Units 04:12 04:50 RBC (4.30-5.90) m/uL Hgb (13.0-17.5) gm/dL Hct (39.0-53.0) % RDW (11.5-15.5) % Plt Count (150-450) k/uL Lymphocytes # (1.0-4.8) k/uL Chloride (98-107) mmol/L Carbon Dioxide (22-30) mmol/L BUN (9-20) mg/dL Creatinine (0.66-1.25) mg/dL Plasma Lactic Acid Tenzin (0.7-2.0) mmol/L Phosphorus 4.8 H (2.5-4.5) mg/dL Total Protein (6.3-8.2) g/dL Crossmatch See Detail Thrombosis Risk Factor Assmnt - Choose All That Apply Each Factor Represents 1 point: Age 41-60 years Each Risk Factor Represents 2 Points: Age 61-74 years Other congenital or acquired thrombophilia - If yes, enter type in comment: No Thrombosis Risk Factor Assessment Total Risk Factor Score: 3 Thrombosis Risk Factor Assessment Level: Moderate Risk Assessment and Plan Plan: 1. Symptomatic anemia, with an 3 hemoglobin of 6.7, last hemoglobin was 9.5 in February 2021, one unit of packed red blood cells transfused on May 21, check for iron studies, Aranesp started, consult with pulmonary for hemoptysis 2. Hemoptysis, chronic, currently a smoker, check for CTA, eval for any malignancy, 3. Bilateral pneumonia, suspect facility acquired, on hemodialysis Saturday, IV cefepime and IV vancomycin started, consult with pulmonary 2. diastolic heart failure. nephrology consult, HD. 3. End-stage renal disease on hemodialysis Saturday. Consult with nephrology for dialysis. Continue lasix 80 mg twice daily. 4. History of anemia of chronic disease with baseline hemoglolin iron studies to be done, aranesp started 5. Hyperphosphatemia. Continue Renvela 3200 mg 3 times daily. 6. Hypertension, hypertensive cardiovascular disease. Continue amlodipine 5 mg twice daily, hydralazine 100 mg 3 times daily, labetalol 200 mg twice daily. 7. History of seizure disorder. Continue Keppra 1000 mg twice daily. 8. History of empyema status post VATS and pericardial window. 9. History of left thalamus stroke. Continue Lipitor 20 mg daily for secondary prevention. 10. Tobacco use and dependence. Nicotine patch ordered as needed as patient is denying need at this time. 11. Chronic thrombocytopenia. Currently stable. 12. DVT prophylaxis. KP feliciano and AZIZAs. 13. GI prophylaxis. Protonix
[2021-05-21] MEDS ORDERED: methocarbamoL 750 MG TAB PO PRN (17:00)
[2021-05-21] MEDS: FUROSEMIDE 80 MG TAB PO SCH (18:23)
[2021-05-21] MEDS: DOXAZOSIN 4 MG TAB PO SCH (18:34)
[2021-05-21] MEDS: levETIRAcetam 500 MG TAB PO SCH (18:34)
[2021-05-21] MEDS: PIPERACILLIN-TAZOBACTAM 3.375 GM in SODIUM CHLORIDE 0.9% 100 ML IVPB SCH (18:34)
[2021-05-21] MEDS: LABETALOL 200 MG TAB PO SCH (18:59)
[2021-05-21 20:46] LABS: Anisocytosis Slight; Basophils # (A) 0.1 k/uL (0-0.2); Basophils % (A) 1 %; Eosinophils # (A) 0.2 k/uL (0-0.7); Eosinophils % (A) 3 %; HGB 7.5 gm/dL (13.0-17.5); Lymphocytes # (A) 0.6 k/uL (1.0-4.8); Lymphocytes % (A) 9 %; MCH 35.4 pg (25.0-35.0); MCHC 35.7 g/dL (31.0-37.0); Macrocytosis Slight; Mean Platelet Volume 7.6; Monocytes # (A) 0.3 k/uL (0-1.0); Monocytes % (A) 5 %; Neutrophils # (A) 4.9 k/uL (1.3-7.7); Neutrophils % (A) 81 %; Platelet Count 101 k/uL (150-450); RBC 2.12 m/uL (4.30-5.90); RDW 16.2 % (11.5-15.5)
--- NOTE | 2021-05-22 00:24 | P.CONS ---
History of Present Illness - Reason for Consult Consult date: 05/21/21 Pneumonia Requesting physician: Jacqueline English - Chief Complaint Shortness of breath 1 day - History of Present Illness Patient is a 51-year-old male with a past medical history significant for end-stage renal disease on hemodialysis patient elena is nontender compliant with his dialysis and did miss his hemodialysis on Saturday however he did want to dialysis on Saturday patient presented to the [facility] ER early this morning for evaluation of increasing shortness of breath that apparently started the morning he presented to hospital patient mention that he woke up and was unable to take/catch his breath patient denies having any chest pain he denies having any cough or sputum production no nausea no vomiting no abdominal pain or any diarrhea with the symptoms the patient was evaluated by ER physician on arrival to the ER the patient was afebrile patient did have a normal white count of 6.6 patient was anemic with hemoglobin of 6.7 patient did have a chest x-ray extensive bilateral lower lobe pneumonia is mostly new compared to old exam rosalia andres has been admitted to the hospital started on vancomycin and Zosyn infectious was consulted for further management of antibiotic therapy. Review of Systems Positive point has been mentioned in the HPI rest of the systems are negative Past Medical History Past Medical History: Atrial Fibrillation, Blood Disorder, CVA/TIA, Eye Disorder, GI Bleed, Hyperlipidemia, Hypertension, Renal Disease, Seizure Disorder Additional Past Medical History / Comment(s): End-stage renal disease on hemodialysis schedule of M/W/F , urolithiasis/nephrolithiasis, acute hypoxic respiratory failure after missed dialysis, paroxysmal Afib, chronic anemia, chronic thrombocytopenia, lower GI bleed, duodenal ulcer, seizures with last seizures 12/2017, 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 eye injection with steroid on 04/04 for eye "stroke" Past Anesthesia/Blood Transfusion Reactions: No Reported Reaction Additional Past Anesthesia/Blood Transfusion Reaction / Comm: Pt has received blood in past without reaction. Past Psychological History: No Psychological Hx Reported Additional Psychological History / Comment(s): Pt resides with his spouse of 17 yrs. He drives rarely. His spouse takes him to appts or his sister does. He is otherwise independent. Smoking Status: Current every day smoker Past Alcohol Use History: None Reported Additional Past Alcohol Use History / Comment(s): Patient is a smoker one pack per day since he was 17 years of age. Currently down to half pack per day. He denies any marijuana, illicit drug use, alcohol use, vaping. Past Drug Use History: None Reported - Past Family History Father Family Medical History: Cancer, CVA/TIA Additional Family Medical History / Comment(s): Father had lymphoma. He had a CVA Mother Family Medical History: Dementia Additional Family Medical History / Comment(s): Mother had a CVA. Sister(s) Additional Family Medical History / Comment(s): Patient has 5 sisters one has from an aneurysm in the brain. 2 sisters have history of kidney stones. Patient has one brother that was shot as cause of . Patient has 6 children with no major medical problems. Medications and Allergies Home Medications Medication Instructions Recorded Confirmed Type Furosemide [Lasix] 80 mg PO BID@0700,1700 06/16/19 05/21/21 History Sevelamer [Renvela] 3,200 mg PO AC-TID 06/16/19 05/21/21 History Pantoprazole [Protonix] 40 mg PO BID@0700,1700 04/08/20 05/21/21 History hydrALAZINE HCL [Apresoline] 100 mg PO TID@0700,1200,1700 04/08/20 05/21/21 History levETIRAcetam 1,000 mg PO BID@0700,1700 04/08/20 05/21/21 History methocarbamoL [Robaxin] 750 mg PO TID@0700,1200,1700 PRN 04/08/20 05/21/21 History Atorvastatin [Lipitor] 20 mg PO DAILY@0700 05/30/20 05/21/21 History Gabapentin [Neurontin] 100 mg PO BID@0700,1700 05/30/20 05/21/21 History amLODIPine [Norvasc] 5 mg PO BID@0700,1700 05/30/20 05/21/21 History Labetalol [Trandate] 200 mg PO BID@0700,1700 #60 tablet 06/09/20 05/21/21 Rx Calcium Acetate [PhosLo] 667 mg PO TID@0700,1200,1700 12/15/20 05/21/21 History Acetaminophen with Codeine 1 tab PO DAILY PRN 05/21/21 05/21/21 History [Tylenol w/Codeine #4 Tablet] Doxazosin [Cardura] 4 mg PO BID@0700,1700 05/21/21 05/21/21 History Allergies Allergy/AdvReac Type Severity Reaction Status Date / Time hydromorphone [From Dilaudid] AdvReac Hallucinati Verified 05/21/21 10:04 ons morphine AdvReac Hallucinati Verified 05/21/21 10:04 ons tramadol AdvReac Hallucinati Verified 05/21/21 10:04 ons Physical Exam Vitals: Vital Signs Temp Pulse Pulse Resp BP BP Pulse Ox 05/21/21 12:06 82 05/21/21 11:46 80 05/21/21 10:19 98.4 F 72 19 181/88 96 05/21/21 10:09 98.0 F 75 18 166/77 98 05/21/21 06:27 98.1 F 75 18 170/88 95 05/21/21 06:17 70 22 177/91 94 L 05/21/21 04:04 28 H 05/21/21 03:48 98 F 81 26 H 184/91 94 L Intake and Output 05/20/21 05/21/21 05/21/21 22:59 06:59 14:59 Intake Total 100 240 Balance 100 240 Intake: Intake, IV Titration 100 Amount Piperacillin-Tazobactam 3 100 .375 gm In Sodium Chloride 0.9% 100 ml @ 200 mls/hr IVPB ONCE STA Rx#:[id number] Oral 240 Blood Product 0 Rc Cpda-1 Unit 0 [id number] Other: Weight 72.575 kg GENERAL DESCRIPTION: Middle-aged male lying in bed, no distress. No tachypnea or accessory muscle of respiration use. HEENT: Shows Pallor , no scleral icterus. Oral mucous membrane is dry. No pharyngeal erythema or thrush NECK: Trachea central, no thyromegaly. LUNGS: Unlabored breathing. Decreased breath sounds at the base. No wheeze or crackle. HEART: S1, S2, regular rate and rhythm. No loud murmur ABDOMEN: Soft, no tenderness , guarding or rigidity, no organomegaly EXTREMITIES: No edema of feet. SKIN: No rash, no masses palpable. NEUROLOGICAL: The patient is awake, alert, oriented x3, mood and affect normal. Results CBC & Chem 7: 05/21/21 20:30 05/21/21 04:12 Labs: Abnormal Lab Results - Last 24 Hours (Table) 05/21/21 05/21/21 05/21/21 Range/Units 04:12 04:12 04:12 RBC 1.97 L (4.30-5.90) m/uL Hgb 6.7 L* (13.0-17.5) gm/dL Hct 19.6 L* (39.0-53.0) % RDW 16.1 H (11.5-15.5) % Plt Count 97 L (150-450) k/uL Lymphocytes # 0.8 L (1.0-4.8) k/uL Chloride 97 L (98-107) mmol/L Carbon Dioxide 32 H (22-30) mmol/L BUN 39 H (9-20) mg/dL Creatinine 9.48 H* (0.66-1.25) mg/dL Plasma Lactic Acid Tenzin 0.5 L (0.7-2.0) mmol/L Phosphorus (2.5-4.5) mg/dL Total Protein 6.2 L (6.3-8.2) g/dL Crossmatch 05/21/21 05/21/21 Range/Units 04:12 04:50 RBC (4.30-5.90) m/uL Hgb (13.0-17.5) gm/dL Hct (39.0-53.0) % RDW (11.5-15.5) % Plt Count (150-450) k/uL Lymphocytes # (1.0-4.8) k/uL Chloride (98-107) mmol/L Carbon Dioxide (22-30) mmol/L BUN (9-20) mg/dL Creatinine (0.66-1.25) mg/dL Plasma Lactic Acid Tenzin (0.7-2.0) mmol/L Phosphorus 4.8 H (2.5-4.5) mg/dL Total Protein (6.3-8.2) g/dL Crossmatch See Detail Assessment and Plan Assessment: patient presented to hospital with sudden onset of increasing shortness of breath in this patient who do have a history of end-stage renal disease on hemodialysis and noncompliance with his dialysis with concern for possible fluid overload patient is clinically not behaving as pneumonia in this patient with no fever or elevated white count but not entirely excluded. (1) Pneumonia Current Visit: Yes Status: Acute Code(s): J18.9 - PNEUMONIA, UNSPECIFIED ORGANISM SNOMED Code(s): 064350708 Plan: 1-we will obtain a sputum for Gram stain and culture 2-elevate completion of the procalcitonin 3-continue with empiric Zosyn and vancomycin We will follow on clinical condition and cultures to further adjust medication if needed Thank you for this consultation we will follow the patient along with you Time with Patient: Greater than 30
[2021-05-22] MEDS: PIPERACILLIN-TAZOBACTAM 3.375 GM in SODIUM CHLORIDE 0.9% 100 ML IVPB SCH ×2 (05:48→19:12)
[2021-05-22] MEDS ORDERED: ATORVASTATIN 20 MG TAB PO SCH (07:00)
[2021-05-22] MEDS ORDERED: VANCOMYCIN 1,250 MG in SODIUM CHLORIDE 0.9% 250 ML IVPB ONE (07:00)
[2021-05-22] MEDS: levETIRAcetam 500 MG TAB PO SCH ×2 (07:24→17:30)
[2021-05-22] MEDS: CALCIUM ACETATE 667 MG TAB PO SCH ×3 (07:24→17:30)
[2021-05-22] MEDS: hydrALAZINE HCL 50 MG TAB PO SCH ×3 (07:24→18:52)
[2021-05-22] MEDS: DOXAZOSIN 4 MG TAB PO SCH ×2 (07:24→17:30)
[2021-05-22] MEDS: SEVELAMER 800 MG TAB PO SCH ×3 (07:24→18:54)
[2021-05-22] MEDS: GABAPENTIN 100 MG CAP PO SCH ×2 (07:25→17:30)
[2021-05-22] MEDS: PANTOPRAZOLE 40 MG TABLET PO SCH ×2 (07:25→18:53)
[2021-05-22] MEDS: FUROSEMIDE 80 MG TAB PO SCH ×2 (07:25→17:30)
[2021-05-22] MEDS: amLODIPine 5 MG TAB PO SCH ×2 (07:25→18:46)
[2021-05-22] MEDS: LABETALOL 200 MG TAB PO SCH ×2 (07:34→18:53)
--- NOTE | 2021-05-22 08:40 | XR ---
EXAMINATION TYPE: XR chest 2V DATE OF EXAM: 05/22/2021 COMPARISON: 05/21/2021 HISTORY: 51-year-old male pneumonia TECHNIQUE: PA and lateral views FINDINGS: Heart normal size. Aorta and pulmonary vasculature within normal limits. Bibasilar airspace opacities persist but show slight improvement from prior. There may be a trace effusion on the right and IMPRESSION: Persistent bibasilar airspace disease though showing some improvement from prior.
[2021-05-22] MEDS: IPRATROPIUM-ALBUTEROL 3 ML NEB INHALATION SCH ×3 (08:49→18:46)
[2021-05-22] MEDS ORDERED: NICOTINE 14MG/24HR PATCH TRANSDERM SCH (09:00)
--- NOTE | 2021-05-22 09:26 | P.PN ---
Subjective Patient is seen in follow-up for end-stage renal disease. Blood pressure stable. Currently on 2 L of cannula. No cough today. No vomiting or diarrhea. Oral intake is good. Vital signs are stable. General: The patient appeared well nourished and normally developed. HEENT: Head exam is unremarkable. Neck is without jugular venous distension. LUNGS: Breath sounds decreased. HEART: Rate and Rhythm are regular. ABDOMEN: Soft, no distention. EXTREMITITES: No edema. Objective - Vital Signs Vital signs: Vital Signs Temp 98.4 F 05/22/21 04:40 Pulse 68 05/22/21 09:05 Resp 21 05/22/21 04:40 BP 153/60 05/22/21 04:40 Pulse Ox 98 05/22/21 08:51 Intake & Output 05/21/21 05/22/21 05/22/21 18:59 06:59 18:59 Intake Total 1030 240 Balance 1030 240 Weight 70.6 kg Intake: Oral 720 240 Blood Product 310 Rc Cpda-1 Unit 310 [id number] Other: # Voids 1 1 - Labs CBC & Chem 7: 05/21/21 20:30 05/21/21 04:12 Labs: Abnormal Lab Results - Last 24 Hours (Table) 05/21/21 05/21/21 05/21/21 Range/Units 04:12 04:12 04:50 RBC (4.30-5.90) m/uL Hgb (13.0-17.5) gm/dL Hct (39.0-53.0) % MCH (25.0-35.0) pg RDW (11.5-15.5) % Plt Count (150-450) k/uL Lymphocytes # (1.0-4.8) k/uL Phosphorus 4.8 H (2.5-4.5) mg/dL Procalcitonin 0.59 H (0.02-0.09) ng/mL Crossmatch See Detail 05/21/21 Range/Units 20:30 RBC 2.12 L (4.30-5.90) m/uL Hgb 7.5 L (13.0-17.5) gm/dL Hct 21.0 L (39.0-53.0) % MCH 35.4 H (25.0-35.0) pg RDW 16.2 H (11.5-15.5) % Plt Count 101 L (150-450) k/uL Lymphocytes # 0.6 L (1.0-4.8) k/uL Phosphorus (2.5-4.5) mg/dL Procalcitonin (0.02-0.09) ng/mL Crossmatch Microbiology - Last 24 Hours (Table) 05/21/21 21:13 Sputum Culture - Preliminary Sputum 05/21/21 05:35 Blood Culture - Preliminary Blood No Growth after 24 hours 05/21/21 05:50 Blood Culture - Preliminary Blood No Growth after 24 hours Assessment and Plan Plan: Assessment: 1. End-stage renal disease maintained on hemodialysis Saturday. 2. Pneumonia maintained on antibiotics. 3. Anemia of chronic kidney disease. No active bleeding. On Aranesp. Status post blood transfusion this admission. 4. Hypertension with chronic kidney disease. 5. Chronic kidney disease mineral bone disease maintained on Renvela. Plan: Hemodialysis today. Patient had a short treatment yesterday as he felt volume overloaded. Monitor vancomycin levels. Target level near 15 Follow-up CT chest. Consider GI consult due to anemia and history of GI bleed.
--- NOTE | 2021-05-22 11:26 | P.PN ---
Subjective Progress Note Date: 05/22/21 Principal diagnosis: Shortness of breath, pneumonia. Pulmonary consultation dated 05/21/2021. 51-year-old male, who was last seen by our group about a year ago. At that time, the patient had an acute GI bleed, and received a total of 7 units of PRBCs. He also has a history of end-stage renal disease, currently on 3, week hemodialysis, essential hypertension, seizure disorder, previous history of empyema requiring decortication and pericardial window, CVA, tobacco dependence syndrome. The patient continues to smoke. The patient was admitted through the emergency department, on May 21. The patient came in with a 3 or 4 days worth of increasing and progressive shortness of breath. He had bit of a cough, mostly nonproductive. He denied any chest pain or chest discomfort. There is no fever or chills. He also denied any GI or issues. The patient continues to smoke cigarettes. White count 6.6, hemoglobin 6.7, hematocrit 19.6, and platelet count 97,000. PT, INR, and PTT were normal. Sodium 140, potassium 4.1, chlorides 97, CO2 32, anion gap 11, BUN 39, creatinine 9.48. The patient's BNP, with 75,300. The chest x-ray showed diffuse bilateral infiltrates, which could be fluid overload, or pneumonia. A pro-calcitonin level was ordered. Progress note dated 05/22/2021. 51-year-old male, with a history of acute GI bleed, end-stage renal disease, hyp ertension, seizure disorder, prior history of empyema requiring decortication, and pericardial window, CVA, and tobacco dependence syndrome. The patient does continue to smoke and was admitted through the emergency department on May 21, with increasing shortness of breath for 3 or 4 days prior to admission. He did have a productive cough. We got a diagnosis could be related to underlying pneumonia and/or fluid overload. Currently, feeling a bit better today. Saturations are 98% on 2 L. No lab work today. Chest x-ray does show evidence of bilateral infiltrates, which may be a bit improved. Objective - Vital Signs Vital signs: Vital Signs Temp 98.4 F 05/22/21 04:40 Pulse 68 05/22/21 09:05 Resp 21 05/22/21 04:40 BP 153/60 05/22/21 04:40 Pulse Ox 98 05/22/21 08:51 Intake & Output 05/21/21 05/22/21 05/22/21 18:59 06:59 18:59 Intake Total 1032 240 Balance 1032 240 Weight 70.6 kg Intake: Oral 720 240 Blood Product 310 Rc Cpda-1 Unit 310 [id number] Hemodialysis 2 Other: # Voids 1 1 - Exam No acute distress, oriented 3. Currently on 2 L nasal cannula. Saturations are 98%. HEENT examination is grossly unremarkable. Neck supple. Full range of motion. No adenopathy thyromegaly or neck vein distention. Cardiovascular examination reveals regular rhythm rate. S1-S2 normal. No S3 or S4. No discernible murmur noted. Heart rate 68 bpm. Lungs reveal scattered bilateral rhonchi and a few scattered wheezes. No crackles. Breath sounds equal bilaterally but diminished throughout. Abdomen soft bowel sounds are heard. No masses or tenderness. Extremities are intact. No cyanosis clubbing or edema. Skin is without rash or lesion. Neurologic examination is brief but nonfocal. - Labs CBC & Chem 7: 05/21/21 20:30 05/21/21 04:12 Labs: Abnormal Lab Results - Last 24 Hours (Table) 05/21/21 05/21/21 05/21/21 Range/Units 04:12 04:50 20:30 RBC 2.12 L (4.30-5.90) m/uL Hgb 7.5 L (13.0-17.5) gm/dL Hct 21.0 L (39.0-53.0) % MCH 35.4 H (25.0-35.0) pg RDW 16.2 H (11.5-15.5) % Plt Count 101 L (150-450) k/uL Lymphocytes # 0.6 L (1.0-4.8) k/uL Procalcitonin 0.59 H (0.02-0.09) ng/mL Crossmatch See Detail Microbiology - Last 24 Hours (Table) 05/21/21 21:13 Sputum Culture - Preliminary Sputum 05/21/21 05:35 Blood Culture - Preliminary Blood No Growth after 24 hours 05/21/21 05:50 Blood Culture - Preliminary Blood No Growth after 24 hours Assessment and Plan Assessment: Shortness of breath, likely multifactorial, in part related to fluid overload, secondary to missed hemodialysis appointments, and also possible pneumonia. Anemia, she received 1 unit PRBCs. End-stage renal disease, currently on 3 time a week hemodialysis, the patient being noncompliant at times. Ongoing tobacco use with nicotine addiction, rule out COPD. History of severe acute GI bleed, requiring 7 units of PRBCs, May,. History of benign essential hypertension. History of seizure disorder. History of CVA, involving the left thalamus. History of empyema requiring decortication, and also pericardial window. History of atrial fibrillation. History of hyperlipidemia. Multiple other medical problems and comorbidities. Plan: Plan dated 05/21/2021. Currently, the patient's on Zosyn and vancomycin. We will add some breathing treatments and the patient. The patient will need hemodialysis at his regular schedule. A nicotine patch would be helpful. We will continue to follow make recommendations where appropriate. Prognosis is certainly guarded. Plan dated 05/22/2021. The patient's N-terminal proBNP was quite high, and also, his pro-calcitonin level was elevated. The patient remains on Zosyn and vancomycin. Chest x-ray does show some improvement. Clinically, he's been weaned down to 2 L. He states that he is feeling better. Additional recommendations and suggestions are forthcoming. We will continue to follow make recommendations where appropriate. Time with Patient: Less than 30
--- NOTE | 2021-05-22 11:36 | CT ---
EXAMINATION TYPE: CT chest w con DATE OF EXAM: 05/22/2021 COMPARISON: 01/30/2018 HISTORY: 51-year-old male Hemoptysis TECHNIQUE: Contiguous axial scanning of the chest after the administration of 80 mL of Isovue 300. C oronal/sagittal reconstructions performed. CT DLP: 337.4mGycm. Automatic exposure control utilized for a dose reduction. FINDINGS: The heart is upper limits of normal in size. The previous large pericardial effusion has resolved. Th ree-vessel coronary artery calcifications are present. Aorta normal caliber with mild atherosclerotic arch calcifications and conventional arch vessel branc srinivas anatomy. A few borderline sized external lymph nodes measuring up to 8 mm in the prevascular space, 1 cm right and left lower paratracheal, and 7 mm right paratracheal. Some prominent right hilar lymph nodes measure up to 1.0 cm and subcarinal lymph node measures 1.1 cm . There is new mosaic attenuation and groundglass throughout the lungs. Lower lung septal lines and lavelle ual trace right greater than left pleural effusions. Some patchy subpleural peripheral opacities in t he lower lobes. Visualized upper abdomen shows possible soft tissue thickening along the anterior wall of the gastric antrum, axial image 69. Small, atrophic kidneys with multiple calcifications and small cysts measuri ng up to 1.5 cm. Mild diffuse thickening of the left adrenal gland without discrete nodularity. Bones: Mild to moderate degenerative disc disease mid to lower thoracic spine. Reversal of the upper cervical kyphosis. IMPRESSION: 1. New trace right greater left pleural effusions. New areas of patchy and confluent groundglass and lower lung septal lines and some patchy infiltrates. Consider developing interstitial pulmonary edema . Hypersensitivity pneumonitis, aspiration, and atypical pneumonias also in the differential. 2. Possible abnormal soft tissue thickening anterior gastric antrum. Direct visualization to exclude neoplasm. 3. Suspect chronic kidney disease with atretic bilateral kidneys. Query dialysis status. 4. Borderline and mildly enlarged mediastinal and hilar lymphadenopathy measuring up to 1.1 cm. Proba cuca reactive. Recommend follow-up CT chest in 3 months to reassess. 5. CAD with three-vessel coronary artery calcifications.
--- NOTE | 2021-05-22 17:06 | P.PN ---
Subjective Progress Note Date: 05/22/21 This is a 50-year-old male patient of Dr. Holguin with past medical history of end-stage renal disease secondary to kidney stones on hemodialysis for over 10 years 3 times weekly, Saturday, hypertension, hypertensive cardiovascular disease, seizure disorder, left thalamus stroke, pr evious admission for acute hypoxic respiratory failure secondary to fluid overload from missing dialysis treatments requiring mechanical ventilation, history of empyema status post VATS and pericardial window, history of chronic thrombocytopenia, tobacco use and dependence-continues to be an active smoker, paroxysmal atrial fibrillation in February 2018, history of GI bleed secondary to ulcers in the esophagus stomach and duodenum. Patient came into [facility] emergency center has been having some fatigue, he has chronic smoker's cough, however this time he mentioned that there is some intermittent hemoptysis, his hemoglobin on admission was 6.7, patient denies any black stools or melena no ascitic stools, denies any hematochezia, denies any hematuria. Patient was admitted for further workup, he will be transfused 1 unit of packed red blood cells today, PIERO shay, for iron deficiency, and anemia of chronic disease. Iron levels to be done, chest x-ray shows bilateral infiltrates, pulmonary following, on admission white count was 6.6, hemoglobin 6.7, platelet count 97,000, INR normal, PTT normal, BUN 39, creatinine 9.4, patient was started on Zosyn and vancomycin, for suspected facility acquired pneumonia, patient is on chronic hemodialysis. No CT of the chest was done, as patient is hemoptysis is persistent, will order for one, last CT of the chest was January 2018 75, patient's lightheadedness dizziness has improved, he had a CAT scan today fo r hemoptysis, showing chest CT, prominent right hilar lymph node 1 cm, subcarinal lymph node 1.1 cm, this was a new groundglass opacification trial of the lung, status pleural effusion, and patchy subpleural peripheral opacities in lower lobes, there is possible soft tissue thickening along the ventral wall gastrin, and have recommended the sterilization directly on the gastric region. Patient had an EGD performed by Dr. De Los Santos, approximately over a year ago, consult made with Dr. De Los Santos patient is undergo dialysis today hemoglobin at 7.5, CT of the chest was recommended to be repeated in 3 months Objective - Vital Signs Vital signs: Vital Signs Temp 97.7 F 05/22/21 08:00 Pulse 74 05/22/21 12:57 Resp 21 05/22/21 08:00 BP 175/87 05/22/21 08:00 Pulse Ox 98 05/22/21 08:51 Intake & Output 05/21/21 05/22/21 05/22/21 18:59 06:59 18:59 Intake Total 1032 240 Balance 1032 240 Weight 70.6 kg Intake: Oral 720 240 Blood Product 310 Rc Cpda-1 Unit 310 [id number] Hemodialysis 2 Other: # Voids 1 1 - Constitutional General appearance: Present: cooperative, no acute distress - EENT Eyes: Present: anicteric sclerae, EOMI, dentition normal, normal appearance ENT: Present: hard of hearing, NA/AT, normal oropharynx - Neck Neck: Present: normal ROM - Respiratory Respiratory: bilateral: CTA, negative: diminished, dullness, rales - Cardiovascular Rhythm: regular Heart sounds: normal: S1, S2 Abnormal Heart Sounds: Absent: systolic murmur, diastolic murmur, rub, S3 G allop, S4 Gallop, click, other - Gastrointestinal General gastrointestinal: Present: normal bowel sounds, soft - Integumentary Integumentary: Present: decreased turgor, normal - Neurologic Neurologic: Present: CNII-XII intact - Musculoskeletal Musculoskeletal: Present: gait normal, strength equal bilaterally - Psychiatric Psychiatric: Present: A&O x's 3, appropriate affect - Labs CBC & Chem 7: 05/21/21 20:30 05/21/21 04:12 Labs: Abnormal Lab Results - Last 24 Hours (Table) 05/21/21 05/21/21 05/21/21 Range/Units 04:12 04:50 20:30 RBC 2.12 L (4.30-5.90) m/uL Hgb 7.5 L (13.0-17.5) gm/dL Hct 21.0 L (39.0-53.0) % MCH 35.4 H (25.0-35.0) pg RDW 16.2 H (11.5-15.5) % Plt Count 101 L (150-450) k/uL Lymphocytes # 0.6 L (1.0-4.8) k/uL Procalcitonin 0.59 H (0.02-0.09) ng/mL Crossmatch See Detail Microbiology - Last 24 Hours (Table) 05/21/21 21:13 Gram Stain - Preliminary Sputum Sputum Culture - Preliminary 05/21/21 05:35 Blood Culture - Preliminary Blood No Growth after 24 hours 05/21/21 05:50 Blood Culture - Preliminary Blood No Growth after 24 hours Assessment and Plan Plan: 1. Symptomatic anemia, with an 3 hemoglobin of 6.7, last hemoglobin was 9.5 in February 2021, one unit of packed red blood cells transfused on May 21, check for iron studies, Aranesp started, consult with pulmonary for hemoptysis 2. Hemoptysis, chronic, currently a smoker, check for CTA, eval for any malignancy, 3. Bilateral pneumonia, suspect facility acquired, on hemodialysis Saturday, IV cefepime and IV vancomycin started, consult with pulmonary 4. Abnormal CT, soft tissue abnormality in the gastric region, recommended did recommend some verbalization, consult with Dr. De Los Santos, he has lymphadenopathy 1- 1.1 cm, radiology has recommended [address] repeat of the chest, do August 2021 2. diastolic heart failure. nephrology consult, HD. 3. End-stage renal disease on hemodialysis Saturday. Consult with nephrology for dialysis. Continue lasix 80 mg twice daily. 4. History of anemia of chronic disease with baseline hemoglolin iron studies to be done, aranesp started 5. Hyperphosphatemia. Continue Renvela 3200 mg 3 times daily. 6. Hypertension, hypertensive cardiovascular disease. Continue amlodipine 5 mg twice daily, hydralazine 100 mg 3 times daily, labetalol 200 mg twice daily. 7. History of seizure disorder. Continue Keppra 1000 mg twice daily. 8. History of empyema status post VATS and pericardial window. 9. History of left thalamus stroke. Continue Lipitor 20 mg daily for secondary prevention. 10. Tobacco use and dependence. Nicotine patch ordered as needed as patient is denying need at this time. 11. Chronic thrombocytopenia. Currently stable. 12. DVT prophylaxis. KP hose and SCDs. 13. GI prophylaxis. Protonix
[2021-05-22 18:45] VITALS: TEMP 97.3
[2021-05-22 20:32] VITALS: BP 180/70; PULSE 70; RESP 18
== END 2021-05-22 21:22 | disposition left against medical advice (07) | DRG 291 ==
LOC: EC 03:46 → 3SCARD 05:38
PROVIDERS: ADMIT Family Medicine; ATTEND Family Medicine
PROC: 5A1D70Z Performance of Urinary Filtration, Intermittent, Less than 6 Hours Per Day (ICD-10-PCS; principal; 2021-05-21)
PROC: 30233N1 Transfusion of Nonautologous Red Blood Cells into Peripheral Vein, Percutaneous Approach (ICD-10-PCS; 2021-05-21)
PROC: 5A1D70Z Performance of Urinary Filtration, Intermittent, Less than 6 Hours Per Day (ICD-10-PCS; 2021-05-22)
DX: I13.2 Hypertensive heart and chronic kidney disease with heart failure and with stage 5 chronic kidney disease, or end stage renal disease (principal); J18.9 Pneumonia, unspecified organism; N18.6 End stage renal disease; J44.0 Chronic obstructive pulmonary disease with (acute) lower respiratory infection; I50.32 Chronic diastolic (congestive) heart failure; R04.2 Hemoptysis; E87.70 Fluid overload, unspecified; F17.210 Nicotine dependence, cigarettes, uncomplicated; M89.8X8 Other specified disorders of bone, other site; D63.1 Anemia in chronic kidney disease; D69.6 Thrombocytopenia, unspecified; R09.02 Hypoxemia; E78.5 Hyperlipidemia, unspecified; I48.0 Paroxysmal atrial fibrillation; E88.9 Metabolic disorder, unspecified; E83.39 Other disorders of phosphorus metabolism; G40.909 Epilepsy, unspecified, not intractable, without status epilepticus; Z79.899 Other long term (current) drug therapy; Z86.73 Personal history of transient ischemic attack (TIA), and cerebral infarction without residual deficits; Z87.19 Personal history of other diseases of the digestive system; Z87.442 Personal history of urinary calculi; Z91.15 Patient's noncompliance with renal dialysis; Z91.19 Patient's noncompliance with other medical treatment and regimen; Z87.11 Personal history of peptic ulcer disease; Z99.2 Dependence on renal dialysis; Z88.5 Allergy status to narcotic agent
CPT/HCPCS: 36415; 71046; 71260; 80053; 83605; 83735; 83880; 84100; 84145; 84484; 85025; 85610; 85730; 86850; 86900; 86901; 86920; 87040; 87070; 87205; 90935; 93005; 94640; 94760; 99285

== ENCOUNTER 2021-07-21 05:34 | Inpatient (IN) | payer MEDICARE, BC ==
[2021-07-21] MEDS ORDERED: IPRATROPIUM-ALBUTEROL 3 ML NEB INHALATION STA (05:48)
[2021-07-21] MEDS ORDERED: methylPREDNISolone SOD SUCCI 125 MG/2 ML VIAL IV STA (05:48)
--- NOTE | 2021-07-21 05:50 | ED ---
SOB HPI - General Chief Complaint: Shortness of Breath Stated Complaint: NICHOLAS Time Seen by Provider: 07/21/21 05:48 Source: patient, RN notes reviewed, old records reviewed Mode of arrival: wheelchair Limitations: no limitations - History of Present Illness Initial Comments: This is a family discharged female to the emergency department for evaluation of shortness of breath denying any pain. No fevers. Patient has had increasing shortness of breath as of late he did skip dialysis. Patient also suffers from COPD with an increased oxygen requirement from 2-4 L. Patient continues to deny chest pain, continues to have weakness MD Complaint: shortness of breath, cough, chest pain -: days(s) Severity: moderate Severity scale (1-10): 4 Quality: dull Consistency: constant Improves With: oxygen, rest Worsens With: lying flat, exertion, movement Known History Of: congestive heart failure Context: recent URI Associated Symptoms: denies other symptoms Treatments Prior to Arrival: none - Related Data Home Medications Medication Instructions Recorded Confirmed Sevelamer [Renvela] 800 mg PO AC-TID 06/16/19 05/27/21 Pantoprazole [Protonix] 40 mg PO BID@0700,1700 04/08/20 05/27/21 hydrALAZINE HCL [Apresoline] 100 mg PO TID@0700,1200,1700 04/08/20 05/27/21 levETIRAcetam 1,000 mg PO BID@0700,1700 04/08/20 05/27/21 Atorvastatin [Lipitor] 20 mg PO DAILY@0700 05/30/20 05/27/21 Gabapentin [Neurontin] 100 mg PO BID@0700,1700 05/30/20 05/27/21 amLODIPine [Norvasc] 5 mg PO BID@0700,1700 05/30/20 05/27/21 Calcium Acetate [PhosLo] 667 mg PO TID@0700,1200,1700 12/15/20 05/27/21 Previous Rx's Medication Instructions Recorded Labetalol [Trandate] 200 mg PO BID@0700,1700 #60 tablet 06/09/20 Allergies Allergy/AdvReac Type Severity Reaction Status Date / Time hydromorphone [From Dilaudid] AdvReac Hallucinati Verified 07/21/21 05:41 ons morphine AdvReac Hallucinati Verified 07/21/21 05:41 ons tramadol AdvReac Hallucinati Verified 07/21/21 05:41 ons Review of Systems ROS Statement: Those systems with pertinent positive or pertinent negative responses have been documented in the HPI. ROS Other: All systems not noted in ROS Statement are negative. 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 eye injection with steroid on 04/04 for eye "stroke" Past Anesthesia/Blood Transfusion Reactions: No Reported Reaction Additional Past Anesthesia/Blood Transfusion Reaction / Comment(s): Pt has received blood in past without reaction. Past Psychological History: No Psychological Hx Reported Smoking Status: Current every day smoker Past Alcohol Use History: None Reported Past Drug Use History: None Reported - Past Family History Father Family Medical History: Cancer, CVA/TIA Additional Family Medical History / Comment(s): Father had lymphoma. He had a CVA Mother Family Medical History: CVA/TIA Additional Family Medical History / Comment(s): Mother had a CVA. Sister(s) Additional Family Medical History / Comment(s): Patient has 5 sisters one has from an aneurysm in the brain. 2 sisters have history of kidney stones. Patient has one brother that was shot as cause of , he was on the kidney transplant list. Patient has 6 children with no major medical problems. General Exam General appearance: alert, in no apparent distress, anxious Head exam: Present: atraumatic, normocephalic, normal inspection Eye exam: Present: normal appearance, PERRL, EOMI. Absent: scleral icterus, c onjunctival injection, periorbital swelling ENT exam: Present: normal exam, mucous membranes moist Neck exam: Present: normal inspection. Absent: tenderness, meningismus, lymphadenopathy Respiratory exam: Present: normal lung sounds bilaterally. Absent: respiratory distress, wheezes, rales, rhonchi, stridor Cardiovascular Exam: Present: regular rate, normal rhythm, normal heart sounds. Absent: systolic murmur, diastolic murmur, rubs, gallop, clicks GI/Abdominal exam: Present: soft, normal bowel sounds. Absent: distended, tenderness, guarding, rebound, rigid Extremities exam: Present: normal inspection, full ROM, normal capillary refill. Absent: tenderness, pedal edema, joint swelling, calf tenderness Back exam: Present: normal inspection Neurological exam: Present: alert, oriented X3, CN II-XII intact Psychiatric exam: Present: normal affect, normal mood Skin exam: Present: warm, dry, intact, normal color. Absent: rash Course Vital Signs 07/21/21 07/21/21 07/21/21 05:36 06:06 06:09 Temperature 98.1 F Pulse Rate 80 74 72 Respiratory 18 18 Rate Blood Pressure 180/90 161/88 O2 Sat by Pulse 87 L 95 Oximetry 07/21/21 07/21/21 06:23 06:51 Temperature Pulse Rate 72 73 Respiratory 14 Rate Blood Pressure 153/89 O2 Sat by Pulse 93 L Oximetry - Reevaluation(s) Reevaluation #1: 07/21/21 05:50 Medical record is reviewed Medical Decision Making - Lab Data Result diagrams: 07/21/21 06:02 07/21/21 06:02 Lab Results 07/21/21 07/21/21 07/21/21 Range/Units 06:02 06:02 06:02 WBC 6.8 (3.8-10.6) k/uL RBC 2.75 L (4.30-5.90) m/uL Hgb 8.9 L (13.0-17.5) gm/dL Hct 28.3 L (39.0-53.0) % MCV 103.0 H (80.0-100.0) fL MCH 32.2 (25.0-35.0) pg MCHC 31.3 (31.0-37.0) g/dL RDW 18.7 H (11.5-15.5) % Plt Count 131 L (150-450) k/uL MPV 8.4 Neutrophils % 84 % Lymphocytes % 9 % Monocytes % 4 % Eosinophils % 1 % Basophils % 1 % Neutrophils # 5.7 (1.3-7.7) k/uL Lymphocytes # 0.6 L (1.0-4.8) k/uL Monocytes # 0.3 (0-1.0) k/uL Eosinophils # 0.1 (0-0.7) k/uL Basophils # 0.0 (0-0.2) k/uL Hypochromasia Slight Poikilocytosis Slight Anisocytosis Slight Macrocytosis Moderate PT 11.2 (9.0-12.0) sec INR 1.1 (<1.2) APTT 26.0 (22.0-30.0) sec Sodium 137 (137-145) mmol/L Potassium 5.0 (3.5-5.1) mmol/L Chloride 96 L (98-107) mmol/L Carbon Dioxide 28 (22-30) mmol/L Anion Gap 13 mmol/L BUN 48 H (9-20) mg/dL Creatinine 12.01 H* (0.66-1.25) mg/dL Est GFR (CKD-EPI)AfAm 5 (>60 ml/min/1.73 sqM) Est GFR (CKD-EPI)NonAf 4 (>60 ml/min/1.73 sqM) Glucose 87 (74-99) mg/dL Calcium 9.2 (8.4-10.2) mg/dL Magnesium 1.8 (1.6-2.3) mg/dL Total Bilirubin 1.3 (0.2-1.3) mg/dL AST 24 (17-59) U/L ALT 14 (4-49) U/L Alkaline Phosphatase 83 (38-126) U/L Troponin I (0.000-0.034) ng/mL Total Protein 6.3 (6.3-8.2) g/dL Albumin 4.1 (3.5-5.0) g/dL 07/21/21 Range/Units 06:02 WBC (3.8-10.6) k/uL RBC (4.30-5.90) m/uL Hgb (13.0-17.5) gm/dL Hct (39.0-53.0) % MCV (80.0-100.0) fL MCH (25.0-35.0) pg MCHC (31.0-37.0) g/dL RDW (11.5-15.5) % Plt Count (150-450) k/uL MPV Neutrophils % % Lymphocytes % % Monocytes % % Eosinophils % % Basophils % % Neutrophils # (1.3-7.7) k/uL Lymphocytes # (1.0-4.8) k/uL Monocytes # (0-1.0) k/uL Eosinophils # (0-0.7) k/uL Basophils # (0-0.2) k/uL Hypochromasia Poikilocytosis Anisocytosis Macrocytosis PT (9.0-12.0) sec INR (<1.2) APTT (22.0-30.0) sec Sodium (137-145) mmol/L Potassium (3.5-5.1) mmol/L Chloride (98-107) mmol/L Carbon Dioxide (22-30) mmol/L Anion Gap mmol/L BUN (9-20) mg/dL Creatinine (0.66-1.25) mg/dL Est GFR (CKD-EPI)AfAm (>60 ml/min/1.73 sqM) Est GFR (CKD-EPI)NonAf (>60 ml/min/1.73 sqM) Glucose (74-99) mg/dL Calcium (8.4-10.2) mg/dL Magnesium (1.6-2.3) mg/dL Total Bilirubin (0.2-1.3) mg/dL AST (17-59) U/L ALT (4-49) U/L Alkaline Phosphatase (38-126) U/L Troponin I 0.034 (0.000-0.034) ng/mL Total Protein (6.3-8.2) g/dL Albumin (3.5-5.0) g/dL - EKG Data -: EKG Interpreted by Me (EKG is sinus rhythm 76 [place] 144 QRS 14 QTC 488) Disposition Clinical Impression: Weakness, Congestive heart failure, Acute pulmonary edema, Chronic renal failure, Hemoptysis Disposition: ADMITTED IP TO THIS HOSP Condition: Fair Is patient prescribed a controlled substance at d/c from ED?: No
[2021-07-21 06:21] LABS: Anisocytosis Slight; Basophils % (A) 1 %; Eosinophils # (A) 0.1 k/uL (0-0.7); Eosinophils % (A) 1 %; HCT 28.3 % (39.0-53.0); HGB 8.9 gm/dL (13.0-17.5); Hypochromasia Slight; Lymphocytes # (A) 0.6 k/uL (1.0-4.8); Lymphocytes % (A) 9 %; MCH 32.2 pg (25.0-35.0); MCHC 31.3 g/dL (31.0-37.0); Macrocytosis Moderate; Mean Platelet Volume 8.4; Monocytes # (A) 0.3 k/uL (0-1.0); Monocytes % (A) 4 %; Neutrophils # (A) 5.7 k/uL (1.3-7.7); Neutrophils % (A) 84 %; Platelet Count 131 k/uL (150-450); Poikilocytosis Slight; RBC 2.75 m/uL (4.30-5.90); RDW 18.7 % (11.5-15.5); WBC 6.8 k/uL (3.8-10.6)
[2021-07-21 06:31] LABS: Albumin 4.1 g/dL (3.5-5.0); Calcium 9.2 mg/dL (8.4-10.2); Magnesium 1.8 mg/dL (1.6-2.3); Total Bilirubin 1.3 mg/dL (0.2-1.3); Total Protein 6.3 g/dL (6.3-8.2)
[2021-07-21] MEDS ORDERED: NALOXONE 0.4 MG/ML 1 ML VIAL IV PRN (06:39)
[2021-07-21] MEDS ORDERED: ONDANSETRON 4 MG/2 ML VIAL IVP PRN (06:39)
[2021-07-21 06:48] LABS: INR 1.1 (<1.2); Prothrombin Time 11.2 sec (9.0-12.0)
--- NOTE | 2021-07-21 07:27 | XR ---
EXAMINATION TYPE: XR chest 1V portable DATE OF EXAM: 07/21/2021 COMPARISON: 05/22/2021 INDICATION: Short of breath TECHNIQUE: Single frontal view of the chest is obtained. FINDINGS: The heart size is enlarged. The pulmonary vasculature is mildly prominent. Diffuse patchy infiltrate is present greater at the right lower lobe. Findings are nonspecific. Consi warren atypical pulmonary edema. Atypical pneumonia should be considered. IMPRESSION: 1. Cardiomegaly with prominent pulmonary vascular markings. 2. Diffuse infiltrate greater in the right lower lobe. Correlate for atypical pulmonary edema. Atypic al pneumonia should be considered.
[2021-07-21] MEDS ORDERED: PANTOPRAZOLE 40 MG/10 ML VIAL IV SCH (09:00)
[2021-07-21] MEDS: SODIUM CHLORIDE 0.9% 1,000 ML IV SCH (09:42)
[2021-07-21] MEDS: CALCIUM ACETATE 667 MG TAB PO SCH ×2 (12:50→17:12)
[2021-07-21] MEDS: hydrALAZINE HCL 50 MG TAB PO SCH ×2 (12:50→17:12)
[2021-07-21] MEDS: SEVELAMER 800 MG TAB PO SCH ×2 (12:50→17:13)
[2021-07-21] MEDS: AZITHROMYCIN 500 MG TAB PO SCH (12:51)
--- NOTE | 2021-07-21 13:13 | P.HPIM ---
History of Present Illness H&P Date: 07/21/21 History of Present Illness This is a 51-year-old male patient of Dr. Holguin with past medical history of end-stage renal disease secondary to kidney stones on hemodialysis for 10 years 3 times weekly, Saturday, hypertension, hypertensive cardiovascular disease, seizure disorder, left thalamus stroke, previous admission for acute hypoxic respiratory failure secondary to fluid overload from missing dialysis treatments requiring mechanical ventilation, history of empyema status post VATS and pericardial window, history of chronic thrombocytopenia, tobacco use and dependence-continues to be an active smoker, paroxysmal atrial fibrillation in February 2018, history of GI bleed secondary to ulcers in the esophagus stomach and duodenum. Patient developed shortness of breath, no chest pain, no fever or chills. He states he has cough with blood in his sputum. He states the hemoptysis comes and goes is been going on for the past 3-4 months. He last saw Dr. Fraire in March.. Patient's had increased shortness of breath and did miss dialysis treatment. Patient came into [facility] emergency [facility] for evaluation found to be afebrile, heart rate 80, blood pressure 180/90, pulse ox 87%. WBC 6.8, hemoglobin 8.9, platelet count 131. Sodium 137, potassium 5.0, chloride 96, CO2 28, BUN 48 and creatinine 12, blood sugar 87. Liver function tests were normal. Magnesium 1.8. Albumin 4.1. Troponin 0.034. ProBNP 109,000. Chest x-ray reveals cardiomegaly with prominent pulmonary vascular markings. Diffuse infiltrate greater in the right lower lobe. Correlate for atypical pulmonary edema. Atypical pneumonia should be considered. [facility] and consultation placed with nephrology. Patient has been started on antibiotics for possible pneumonia. Review of Systems Constitutional: No fever, no chills, no night sweats. No weight change. No weakness, No fatigue. No daytime sleepiness. EENT: No headache. No blurred vision or double vision, no loss of vision. No loss of Hearing, no ringing in the ears, no dizziness. No nasal drainage or congestion. No epistaxis. No sore throat. Lungs: reported shortness of breath, reports cough, reports sputum production, reports hemoptysis. Reports wheezing. Cardiovascular: No chest pain, no lower extremity edema. No palpitations. No paroxysmal nocturnal dyspnea. No lightheadedness or dizziness. No syncopal epi sodes. Abdominal: No abdominal pain. denies nausea, vomiting. No diarrhea. No constipation. No bloody or tarry stools. Reports loss of appetite. Musculoskeletal: No myalgias. No muscle weakness, no gait dysfunction, no frequent falls. No back pain. Reports neck pain. Integumentary: No wounds, no lesions. No rash or pruritus. No unusual bruising. No change in hair or nails. Neurologic: No aphasia. No facial droop. No change in mentation. No head injury. No headache. No paralysis. No paresthesia. Psychiatric: No depression. No anxiety. No mood swings. Endocrine: No abnormal blood sugars. No weight change. Physical Examination Gen: This is a 51-year-old male patient resting in bed and appears to in no acute respiratory distress. HEENT: Head is atraumatic, normocephalic. Pupils equal, round. Sclerae is anicteric. Overall skin color lozano. NECK: Supple. No JVD. No lymphadenopathy. No thyromegaly. LUNGS: Expiratory wheeze bilaterally. No accessory muscle usage. No intercostal retractions. HEART: Regular rate and rhythm. Systolic murmur. ABDOMEN: Soft. Bowel sounds are present. No masses. No tenderness. EXTREMITIES: No pedal edema. No calf tenderness. No lower extremity wounds. Fistula right arm NEUROLOGICAL: Patient is awake, alert and oriented x3. Cranial nerves 2 through 12 are grossly intact. Assessment and Plan 1. Acute hypoxic respiratory failure secondary to fluid overload from missed dialysis, acute bronchitis, COPD. Consult nephrology, pro-calcitonin, start antibiotics in form of Rocephin and azithromycin for possible pneumonia 2. Possible acute diastolic heart failure. Consult nephrology, continue HD. 3. End-stage renal disease on hemodialysis Saturday. Consult with nephrology for dialysis. 4. History of anemia of chronic disease with baseline hemoglobin of 8. 5. Hyperphosphatemia. Continue Renvela 3200 mg 3 times daily. 6. Hypertension, hypertensive cardiovascular disease. Continue amlodipine 5 mg twice daily, hydralazine 100 mg 3 times daily, labetalol 200 mg twice daily. 7. History of seizure disorder. Continue Keppra 1000 mg twice daily. 8. History of empyema status post VATS and pericardial window. 9. History of left thalamus stroke. Continue Lipitor 20 mg daily for secondary prevention. 10. Tobacco use and dependence. Nicotine patch ordered as needed as patient is denying need at this time. 11. Chronic thrombocytopenia. Currently stable. 12. DVT prophylaxis. KP hose and SCDs. 13. GI prophylaxis. Protonix 14. CODE STATUS: Full code. Patient will be admitted to the hospital for a minimum of 2 night stay. Discharge plan Return home Impression and plan of care have been directed as dictated by the signing physician. Doretha Brumfield nurse practitioner acting as scribe for signing physician. Past Medical History Past Medical History: Atrial Fibrillation, Blood Disorder, CVA/TIA, Eye Disorder, GI Bleed, Hyperlipidemia, Hypertension, Renal Disease, Seizure Disorder Additional Past Medical History / Comment(s): End-stage renal disease on hemodialysis schedule of M/W/F , urolithiasis/nephrolithiasis, acute hypoxic respiratory failure after missed dialysis, paroxysmal Afib, chronic anemia, chronic thrombocytopenia, lower GI bleed, duodenal ulcer, seizures with last seizures 12/2017, L thalamus CVA no residual, pericardial effusion, L lung empyema, spinal stenosis, DDD, chronic cervical and back pain, R eye "lazy", past R ankle and R hand fractures-casted, blood transfusion History of Any Multi-Drug Resistant Organisms: None Reported Past Surgical History: Bladder Surgery, Orthopedic Surgery Additional Past Surgical History / Comment(s): Hemorrhoidectomy, EGDs, colonoscopies, L sided Vats with decortication, pericardial window, hemodialysis fistula, cystoscopies/lithotripsies, bilateral renal stents, double J catheter. eye injection with steroid on 04/04 for eye "stroke" Past Anesthesia/Blood Transfusion Reactions: No Reported Reaction Additional Past Anesthesia/Blood Transfusion Reaction / Comment(s): Pt has received blood in past without reaction. Past Psychological History: No Psychological Hx Reported Smoking Status: Current every day smoker Past Alcohol Use History: None Reported Past Drug Use History: None Reported - Past Family History Father Family Medical History: Cancer, CVA/TIA Additional Family Medical History / Comment(s): Father had lymphoma. He had a CVA Mother Family Medical History: CVA/TIA Additional Family Medical History / Comment(s): Mother had a CVA. Sister(s) Additional Family Medical History / Comment(s): Patient has 5 sisters one has from an aneurysm in the brain. 2 sisters have history of kidney stones. Patient has one brother that was shot as cause of , he was on the kidney transplant list. Patient has 6 children with no major medical problems. Medications and Allergies Home Medications Medication Instructions Recorded Confirmed Type Sevelamer [Renvela] 800 mg PO AC-TID 06/16/19 07/21/21 History Pantoprazole [Protonix] 40 mg PO BID@0700,1700 04/08/20 07/21/21 History hydrALAZINE HCL [Apresoline] 100 mg PO TID@0700,1200,1700 04/08/20 07/21/21 History levETIRAcetam 1,000 mg PO BID@0700,1700 04/08/20 07/21/21 History Atorvastatin [Lipitor] 20 mg PO DAILY@0700 05/30/20 07/21/21 History Gabapentin [Neurontin] 100 mg PO BID@0700,1700 05/30/20 07/21/21 History amLODIPine [Norvasc] 5 mg PO BID@0700,1700 05/30/20 07/21/21 History Labetalol [Trandate] 200 mg PO BID@0700,1700 #60 tablet 06/09/20 07/21/21 Rx Calcium Acetate [PhosLo] 667 mg PO TID@0700,1200,1700 12/15/20 07/21/21 History Allergies Allergy/AdvReac Type Severity Reaction Status Date / Time hydromorphone [From Dilaudid] AdvReac Hallucinati Verified 07/21/21 06:56 ons morphine AdvReac Hallucinati Verified 07/21/21 06:56 ons tramadol AdvReac Hallucinati Verified 07/21/21 06:56 ons Physical Exam Vitals: Vital Signs Temp Pulse Resp BP Pulse Ox 07/21/21 09:17 74 17 160/95 94 L 07/21/21 06:51 73 14 153/89 93 L 07/21/21 06:23 72 07/21/21 06:09 72 07/21/21 06:06 74 18 161/88 95 07/21/21 05:36 98.1 F 80 18 180/90 87 L Intake and Output 07/20/21 07/21/21 07/21/21 22:59 06:59 14:59 Other: Weight 70.307 kg Results CBC & Chem 7: 07/21/21 06:02 07/21/21 06:02 Labs: Abnormal Lab Results - Last 24 Hours (Table) 07/21/21 07/21/21 Range/Units 06:02 06:02 RBC 2.75 L (4.30-5.90) m/uL Hgb 8.9 L (13.0-17.5) gm/dL Hct 28.3 L (39.0-53.0) % MCV 103.0 H (80.0-100.0) fL RDW 18.7 H (11.5-15.5) % Plt Count 131 L (150-450) k/uL Lymphocytes # 0.6 L (1.0-4.8) k/uL Chloride 96 L (98-107) mmol/L BUN 48 H (9-20) mg/dL Creatinine 12.01 H* (0.66-1.25) mg/dL
--- NOTE | 2021-07-21 15:01 | CONS ---
CONSULTATION REASON FOR CONSULT: End-stage renal disease. HISTORY OF PRESENT ILLNESS: Patient is a 51-year-old male with end-stage renal disease, on hemodialysis on a Saturday, Saturday, Saturday schedule at the [facility]. He was admitted to the hospital with complaints of shortness of breath. The patient missed his dialysis on Saturday and he was not able to make it to his treatment today due to worsening shortness of breath. He stated that he had significant back pain, therefore, he was not able to go for dialysis. He did see his chiropractor and his back pain is currently improved. No complaints of chest pain, fever, chills or cough. PAST MEDICAL HISTORY: End-stage renal disease, hypertension, chronic back pain, osteoarthritis, CKD mineral bone disorder, history of CVA, TIA, GI bleed, seizure disorder, duodenal ulcer, GI bleed, paroxysmal atrial fibrillation, history of pericardial effusion, history of left lung empyema. PAST SURGICAL HISTORY: Hemorrhoidectomy, EGD, colonoscopies, left-sided VATS procedure with decortication, pericardial window, AV fistula, renal stents, history of nephrolithiasis. SOCIAL HISTORY: Positive for smoking. No history of drug abuse or alcohol abuse. MEDICATIONS PRIOR TO ADMISSION: Included Lipitor, Neurontin, Norvasc, PhosLo, hydralazine, Keppra, Protonix, Renvela, labetalol. ALLERGIES: Include MORPHINE, TRAMADOL, DILAUDID. REVIEW OF SYSTEMS: As per HPI. Other systems negative. EXAMINATION: Comfortable, awake, mildly short of breath. Blood pressure 160/95, heart rate 74 per minute, he is afebrile. Examination of the heart S1, S2. Examination of the lungs, bilateral breath sounds are heard. Abdomen is soft, nontender. Examination lower extremities shows edema 1+ bilaterally. BUSINESS [employer]TELLIGENCE E[employer] DEVELOPER exam is grossly intact. LAB: Show potassium of 5.0, creatinine 5.0, hemoglobin 8.9 g/dL. ASSESSMENT: 1. End-stage renal disease on hemodialysis on a Saturday, Saturday, Saturday schedule via left arm AV fistula. 2. Volume overload secondary to patient missing dialysis. 3. Hypertension, partly volume sensitive. 4. Acute hypoxic respiratory failure secondary to volume overload. 5. Chronic kidney disease mineral bone disorder. 6. Previous history of cerebrovascular accident. 7. History of seizures, maintained on Keppra. PLAN: Hemodialysis today and then again in a.m. The patient is advised regarding importance of compliance with dialysis. MMODL / IJN: [id number] /
[2021-07-21] MEDS: PANTOPRAZOLE 40 MG TABLET PO SCH (17:12)
[2021-07-21] MEDS: LABETALOL 200 MG TAB PO SCH (17:12)
[2021-07-21] MEDS: GABAPENTIN 100 MG CAP PO SCH (17:12)
[2021-07-21] MEDS: amLODIPine 5 MG TAB PO SCH (17:12)
[2021-07-21] MEDS: levETIRAcetam 500 MG TAB PO SCH (17:12)
[2021-07-21] MEDS ORDERED: hydrALAZINE HCL 50 MG TAB PO STA (21:59)
[2021-07-21] MEDS ORDERED: hydrALAZINE HCL 50 MG TAB PO PRN (22:00)
[2021-07-22] MEDS: SODIUM CHLORIDE 0.9% 1,000 ML IV SCH (05:28)
[2021-07-22] MEDS ORDERED: ATORVASTATIN 20 MG TAB PO SCH (07:00)
--- NOTE | 2021-07-22 08:27 | P.PN ---
Subjective Progress Note Date: 07/22/21 Principal diagnosis: this is a 51-year-old male with ESRD on dialysis Saturday at [facility] admitted with shortness of breath a chest x-ray shows CHF he was missing his dialysis. He is known with history of CVA GI bleed seizure disorders atrial fibrillation and history of pericardial effusion and left lung empyema, status post decortication and a pericardial window.he was dialyzed yesterday and then is scheduled for dialysis today. Additionally he has anemia hemoglobin is 8.9 but previously his hemoglobin has been somewhat low in the 8-9 range over the last1 month. He is feeling much better since dialysis yesterday. He is currently on room air and comfortable. Objective - Vital Signs Vital signs: Vital Signs Temp 97.8 F 07/22/21 06:15 Pulse 67 07/22/21 06:15 Resp 17 07/22/21 01:26 BP 177/77 07/22/21 06:15 Pulse Ox 100 07/22/21 06:15 Intake & Output 07/21/21 07/22/21 07/22/21 18:59 06:59 18:59 Intake Total 200 770 Balance 200 770 Weight 70.307 kg Intake: Intake, IV Titration 290 Amount Sodium Chloride 0.9% 1, 240 000 ml @ 20 mls/hr IV . Q24H KRISTY Rx#:[id number] cefTRIAXone 1 gm In 50 Sodium Chloride 0.9% 50 ml @ 100 mls/hr IVPB Q24HR KRISTY Rx#:[id number] Oral 200 480 Other: Voiding Method Toilet # Voids 0 2 on examination awake alert oriented comfortable HEENT exam JVP is elevated about 8 cm about the sternal angle at is supple no facial asymmetry Lungs clear to auscultation good air entry bilaterally Heart sounds unremarkable for any murmur rub gallop Abdomen soft nontender Extremity exam reveals no edema Neurologically awake alert oriented. - Labs CBC & Chem 7: 07/21/21 06:02 07/21/21 06:02 Labs: Abnormal Lab Results - Last 24 Hours (Table) 07/21/21 Range/Units 06:02 Procalcitonin 0.56 H (0.02-0.09) ng/mL Assessment and Plan Assessment: impression 1. ESRD on dialysis Saturday. 2. admitted with shortness of breath after missing dialysis and chest x-ray was consistent with congestive heart failure. 3. Anemia off ESRD possible iron deficiency. 4. history of paroxysmal atrial fibrillation 5. History of empyema and decortication. 6. History of pericardial effusion and window Recommendation 1. Patient can be dialyzed and discharged.
[2021-07-22] MEDS: CALCIUM ACETATE 667 MG TAB PO SCH ×2 (08:40→12:42)
[2021-07-22] MEDS: GABAPENTIN 100 MG CAP PO SCH (08:41)
[2021-07-22] MEDS: PANTOPRAZOLE 40 MG TABLET PO SCH (08:41)
[2021-07-22] MEDS: amLODIPine 5 MG TAB PO SCH (08:41)
[2021-07-22] MEDS: hydrALAZINE HCL 50 MG TAB PO SCH ×2 (08:41→12:42)
[2021-07-22] MEDS: LABETALOL 200 MG TAB PO SCH (08:42)
[2021-07-22] MEDS: SEVELAMER 800 MG TAB PO SCH ×2 (08:42→12:42)
[2021-07-22] MEDS: AZITHROMYCIN 500 MG TAB PO SCH (08:42)
[2021-07-22] MEDS: levETIRAcetam 500 MG TAB PO SCH (08:43)
[2021-07-22 08:49] LABS: Basophils # (A) 0.03 X 10*3/uL (0.00-0.10); Basophils % (A) 0.4 %; Eosinophils # (A) 0.23 X 10*3/uL (0.04-0.35); Eosinophils % (A) 2.8 %; HCT 25.3 % (39.6-50.0); HGB 8.2 g/dL (13.0-17.0); Lymphocytes # (A) 0.61 X 10*3/uL (0.90-5.00); Lymphocytes % (A) 7.4 %; MCHC 32.4 g/dL (32.0-37.0); Mean Platelet Volume 9.9 fL (9.5-12.2); Monocytes % (A) 6.1 %; Neutrophils # (A) 6.83 X 10*3/uL (1.80-7.70); Neutrophils % (A) 82.9 %; Platelet Count 127 X 10*3/uL (140-440); RBC 2.41 X 10*6/uL (4.40-5.60); RDW 17.2 % (11.5-14.5); WBC 8.23 X 10*3/uL (4.50-10.00)
[2021-07-22 13:54] LABS: African American GFR (CKD) 7.5 (60.0-200.0); Albumin 4.3 g/dL (3.80-4.90); Albumin/Globulin Ratio 2.05 (1.60-3.17); BUN/Creat Ratio 5.06 Ratio (12.00-20.00); Calcium 9.1 mg/dL (8.7-10.3); Globulin 2.1 g/dL (1.6-3.3); Magnesium 1.8 mg/dL (1.5-2.4); Non-African American GFR(CKD) 6.4 (60.0-200.0); Phosphorus 4.4 mg/dL (2.4-5.1); Potassium 4.5 mmol/L (3.5-5.5); Total Bilirubin 0.5 mg/dL (0.3-1.2); Total Protein 6.4 g/dL (6.2-8.2)
[2021-07-22 14:48] VITALS: BP 156/84
--- NOTE | 2021-07-22 16:02 | P.DS ---
Providers Date of admission: 07/21/21 06:41 Expected date of discharge: 07/22/21 Attending physician: Kg Bruno Consults: 07/21/21 06:39 Consult Physician Routine Consulting Provider: Maricarmen Figueroa Consult Reason/Comments: HD Do you want consulting provider notified?: Yes Primary care physician: Jaylen Holguin [facility] Course: History of Present Illness This is a 51-year-old male patient of Dr. Holguin with past medical history of end-stage renal disease secondary to kidney stones on hemodialysis for 10 years 3 times weekly, Saturday, hypertension, hypertensive cardiovascular disease, seizure disorder, left thalamus stroke, previous admission for acute hypoxic respiratory failure secondary to fluid overload from missing dialysis treatments requiring mechanical ventilation, history of empyema status post VATS and pericardial window, history of chronic thrombocytopenia, tobacco use and dependence-continues to be an active smoker, paroxysmal atrial fibrillation in February 2018, history of GI bleed secondary to ulcers in the esophagus stomach and duodenum. Patient developed shortness of breath, no chest pain, no fever or chills. He states he has cough with blood in his sputum. He states the hemoptysis comes and goes is been going on for the past 3-4 months. He last saw Dr. Fraire in March.. Patient's had increased shortness of breath and did miss dialysis treatment. Patient came into [facility] emergency center for evaluation found to be afebrile, heart rate 80, blood pressure 180/90, pulse ox 87%. WBC 6.8, hemoglobin 8.9, platelet count 131. Sodium 137, potassium 5.0, chloride 96, CO2 28, BUN 48 and creatinine 12, blood sugar 87. Liver function tests were normal. Magnesium 1.8. Albumin 4.1. Troponin 0.034. ProBNP 109,000. Chest x-ray reveals cardiomegaly with prominent pulmonary vascular markings. Diffuse infiltrate greater in the right lower lobe. Correlate for atypical pulmonary edema. Atypical pneumonia should be considered. [facility] and consultation placed with nephrology. Patient has been started on antibiotics for possible pneumonia. 07/22 patient is doing much better, no wheezing, no rhonchi, still occasional cough, no fever no chills, patient was dialyzed yesterday, and today. Patient was seen by nephrology, for which he recommended discharge after dialysis. Patient would resume his normal dialysis time on Saturday, oral antibiotic to be dispensed for home, along with Symbicort and Proventil. No oral this time patient does not have any chest pain, no urinary retention, has oligoria ] Final diagnosis 1. Acute hypoxic respiratory failure secondary to fluid overload from missed dialysis, acute bronchitis, COPD he she and patient discharge with oral Zithromax, and Symbicort, patient is Proventil at home oral prednisone at this time. Consult nephrology, pro-calcitonin, start antibiotics in form of Rocephin and azithromycin for possible pneumonia seen improvement with short bursts of IV steroid, and dialysis 2. Possible acute diastolic heart failure. Consult nephrology, continue HD. 3. End-stage renal disease on hemodialysis Saturday. Consult with nephrology for dialysis. 4. History of anemia of chronic disease with baseline hemoglobin of 8. 5. Hyperphosphatemia. Continue Renvela 3200 mg 3 times daily. 6. Hypertension, hypertensive cardiovascular disease. Continue amlodipine 5 mg twice daily, hydralazine 100 mg 3 times daily, labetalol 200 mg twice daily. 7. History of seizure disorder. Continue Keppra 1000 mg twice daily. 8. History of empyema status post VATS and pericardial window. 9. History of left thalamus stroke. Continue Lipitor 20 mg daily for secondary prevention. 10. Tobacco use and dependence. Nicotine patch ordered as needed as patient is denying need at this time. 11. Chronic thrombocytopenia. Currently stable. 12. DVT prophylaxis. KP hose and SCDs. 13. GI prophylaxis. Protonix 14. CODE STATUS: Full code. Patient will be admitted to the hospital for a minimum of 2 night stay. Discharge plan Return home Patient Condition at Discharge: Fair Plan - Discharge Summary Discharge Rx Participant: No New Discharge Prescriptions: New Budesonide-Formot 160-4.5 Mcg [Symbicort 160-4.5 Mcg Inhaler] 2 puff INHALATION BID #10.2 gm Azithromycin [Zithromax] 500 mg PO DAILY #3 tab Continue Sevelamer [Renvela] 800 mg PO AC-TID hydrALAZINE HCL [Apresoline] 100 mg PO TID@0700,1200,1700 levETIRAcetam 1,000 mg PO BID@0700,1700 Pantoprazole [Protonix] 40 mg PO BID@0700,1700 Gabapentin [Neurontin] 100 mg PO BID@0700,1700 Atorvastatin [Lipitor] 20 mg PO DAILY@0700 amLODIPine [Norvasc] 5 mg PO BID@0700,1700 Labetalol [Trandate] 200 mg PO BID@0700,1700 #60 tablet Calcium Acetate [PhosLo] 667 mg PO TID@0700,1200,1700 Discharge Medication List Sevelamer [Renvela] 800 mg PO AC-TID 06/16/19 [History] Pantoprazole [Protonix] 40 mg PO BID@0700,1700 04/08/20 [History] hydrALAZINE HCL [Apresoline] 100 mg PO TID@0700,1200,1700 04/08/20 [History] levETIRAcetam 1,000 mg PO BID@0700,1700 04/08/20 [History] Atorvastatin [Lipitor] 20 mg PO DAILY@0700 05/30/20 [History] Gabapentin [Neurontin] 100 mg PO BID@0700,1700 05/30/20 [History] amLODIPine [Norvasc] 5 mg PO BID@0700,1700 05/30/20 [History] Labetalol [Trandate] 200 mg PO BID@0700,1700 #60 tablet 06/09/20 [Rx] Calcium Acetate [PhosLo] 667 mg PO TID@0700,1200,1700 12/15/20 [History] Azithromycin [Zithromax] 500 mg PO DAILY #3 tab 07/22/21 [Rx] Budesonide-Formot 160-4.5 Mcg [Symbicort 160-4.5 Mcg Inhaler] 2 puff INHALATION BID #10.2 gm 07/22/21 [Rx] Follow up Appointment(s)/Referral(s): Maricarmen Figueroa MD [STAFF PHYSICIAN] - 1 Week Jaylen Holguin MD [Primary Care Provider] - 1-2 days Discharge Disposition: HOME SELF-CARE
[2021-07-22 17:33] VITALS: PULSE 82; RESP 14; TEMP 97.4
== END 2021-07-22 17:30 | disposition home or self-care (01) | DRG 291 ==
LOC: EC 05:34 → 4SSUR 06:41
PROVIDERS: ADMIT Internal Medicine Geriatric Medicine; ATTEND Internal Medicine Geriatric Medicine
DX: I13.2 Hypertensive heart and chronic kidney disease with heart failure and with stage 5 chronic kidney disease, or end stage renal disease (principal); I50.31 Acute diastolic (congestive) heart failure; J96.01 Acute respiratory failure with hypoxia; N18.6 End stage renal disease; J44.0 Chronic obstructive pulmonary disease with (acute) lower respiratory infection; D63.8 Anemia in other chronic diseases classified elsewhere; D69.6 Thrombocytopenia, unspecified; E78.5 Hyperlipidemia, unspecified; E83.39 Other disorders of phosphorus metabolism; F17.200 Nicotine dependence, unspecified, uncomplicated; I48.0 Paroxysmal atrial fibrillation; G89.29 Other chronic pain; Z99.2 Dependence on renal dialysis; Z87.442 Personal history of urinary calculi; Z87.19 Personal history of other diseases of the digestive system; Z86.73 Personal history of transient ischemic attack (TIA), and cerebral infarction without residual deficits; Z82.3 Family history of stroke; Z80.7 Family history of other malignant neoplasms of lymphoid, hematopoietic and related tissues; Z79.899 Other long term (current) drug therapy; M89.9 Disorder of bone, unspecified; J20.9 Acute bronchitis, unspecified; G40.909 Epilepsy, unspecified, not intractable, without status epilepticus
CPT/HCPCS: 36415; 71045; 80053; 83735; 83880; 84100; 84145; 84484; 85025; 85610; 85730; 90935; 93005; 94640; 96374; 96375; 99285

== ENCOUNTER 2021-09-11 09:41 | Emergency (ER) | payer MEDICARE, BC ==
[2021-09-11 10:03] VITALS: RESP 18
[2021-09-11 11:15] LABS: Anisocytosis Slight; Basophils # (A) 0.1 k/uL (0-0.2); Basophils % (A) 1 %; Eosinophils # (A) 0.1 k/uL (0-0.7); Eosinophils % (A) 2 %; HCT 24.6 % (39.0-53.0); HGB 8.4 gm/dL (13.0-17.5); Lymphocytes # (A) 0.5 k/uL (1.0-4.8); Lymphocytes % (A) 8 %; MCHC 34.4 g/dL (31.0-37.0); MCV 101.9 fL (80.0-100.0); Macrocytosis Moderate; Mean Platelet Volume 8.4; Monocytes # (A) 0.2 k/uL (0-1.0); Monocytes % (A) 4 %; Neutrophils # (A) 5.4 k/uL (1.3-7.7); Neutrophils % (A) 84 %; Platelet Count 132 k/uL (150-450); RBC 2.41 m/uL (4.30-5.90); RDW 17.4 % (11.5-15.5); WBC 6.5 k/uL (3.8-10.6)
[2021-09-11 11:23] LABS: INR 1.1 (<1.2); Partial Thromboplastin Time 27.1 sec (22.0-30.0); Prothrombin Time 11.3 sec (9.0-12.0)
--- NOTE | 2021-09-11 11:26 | XR ---
EXAMINATION TYPE: XR chest 2V DATE OF EXAM: 09/11/2021 COMPARISON: 07/21/2021 HISTORY: Shortness of breath TECHNIQUE: Frontal and lateral views of the chest are obtained. FINDINGS: Scattered senescent parenchymal changes noted. Hyperinflation compatible with COPD. Patchy perihilar and basilar densities persist which may reflect persistent pneumonia. Correlate clin ically. Heart size is stable. Mediastinal structures are stable and grossly unremarkable. No evidence for hilar prominence. Degenerative changes dorsal spine. IMPRESSION: 1. Patchy perihilar and basilar densities persist which may reflect persistent pneumonia. Correlate c linically.
[2021-09-11 11:30] LABS: Albumin 4.1 g/dL (3.5-5.0); Calcium 9.4 mg/dL (8.4-10.2); Magnesium 1.8 mg/dL (1.6-2.3); Potassium 5.3 mmol/L (3.5-5.1); Total Bilirubin 1.4 mg/dL (0.2-1.3); Total Protein 6.6 g/dL (6.3-8.2)
[2021-09-11] MEDS ORDERED: CALCIUM GLUCONATE 1 GM in SODIUM CHLORIDE 0.9% 100 ML IVPB ONE (14:35)
--- NOTE | 2021-09-11 17:19 | ED ---
General Adult HPI - General Chief complaint: Shortness of Breath Stated complaint: NICHOLAS, low 02, dialysis pt Time Seen by Provider: 09/11/21 14:13 Source: patient, family, RN notes reviewed, old records reviewed Mode of arrival: wheelchair Limitations: no limitations - History of Present Illness Initial comments: Patient is a 51-year-old male with past medical history remarkable for ESRD on hemodialysis, atrial fibrillation, hypertension, prior GI bleed, seizure disorder presents emergency Department complaining of shortness of breath. Family members were attempting to use the pulse ox at home and they noticed it is fluctuating city presents emergency department for further evaluation. Triage note states that patient was complaining of abdominal pain, however when I evaluated the patient had no abdominal pain. He has been coughing up blood-t inged sputum intermittently which is a chronic problem. He does have a history of COPD. He has home oxygen as needed. Denies any sick contacts. Denies any fevers or chills. Denies any worsening dyspnea. His no other acute complaints at this time. Patient does have a history of chronic hypertension with elevated systolics in the upper 100s. I evaluated the patient when he was placed in a ro om.Due to the patient essentially emergency department for evaluation, he did miss his dialysis appointment today. He typically goes Saturday, Saturday, saturday. He has not missed any appointments recently. - Related Data Home Medications Medication Instructions Recorded Confirmed Sevelamer [Renvela] 800 mg PO AC-TID 06/16/19 08/24/21 Pantoprazole [Protonix] 40 mg PO BID@0700,1700 04/08/20 08/24/21 hydrALAZINE HCL [Apresoline] 100 mg PO TID@0700,1200,1700 04/08/20 08/24/21 levETIRAcetam 1,000 mg PO BID@0700,1700 04/08/20 08/24/21 Atorvastatin [Lipitor] 20 mg PO DAILY@0700 05/30/20 08/24/21 Gabapentin [Neurontin] 100 mg PO BID@0700,1700 05/30/20 08/24/21 amLODIPine [Norvasc] 5 mg PO BID@0700,1700 05/30/20 08/24/21 Calcium Acetate [PhosLo] 667 mg PO TID@0700,1200,1700 01/28/21 10/07/21 Previous Rx's Medication Instructions Recorded Labetalol [Trandate] 200 mg PO BID@0700,1700 #60 tablet 06/09/20 Azithromycin [Zithromax] 500 mg PO DAILY #3 tab 07/22/21 Budesonide-Formot 160-4.5 Mcg 2 puff INHALATION BID #10.2 gm 07/22/21 [Symbicort 160-4.5 Mcg Inhaler] Allergies Allergy/AdvReac Type Severity Reaction Status Date / Time hydromorphone [From Dilaudid] AdvReac Hallucinati Verified 09/11/21 10:03 ons morphine AdvReac Hallucinati Verified 09/11/21 10:03 ons tramadol AdvReac Hallucinati Verified 09/11/21 10:03 ons Review of Systems ROS Statement: Those systems with pertinent positive or pertinent negative responses have been documented in the HPI. Review of Systems: CONST: Denies fever EYES: Denies blurry vision ENT: Denies nasal congestion C/V: Denies Chest pain RESP: Endorses chronic shortness of breath, cough GI: Denies abdominal pain : Denies dysuria SKIN: Denies rash. MSK: Denies joint pain. NEURO: Denies headache ROS Other: All systems not noted in ROS Statement are negative. 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 eye injection with steroid on 04/04 for eye "stroke" Past Anesthesia/Blood Transfusion Reactions: No Reported Reaction Additional Past Anesthesia/Blood Transfusion Reaction / Comment(s): Pt has received blood in past without reaction. Past Psychological History: No Psychological Hx Reported Smoking Status: Current every day smoker - Past Family History Father Family Medical History: Cancer, CVA/TIA Additional Family Medical History / Comment(s): Father had lymphoma. He had a CVA Mother Family Medical History: CVA/TIA Additional Family Medical History / Comment(s): Mother had a CVA. Sister(s) Additional Family Medical History / Comment(s): Patient has 5 sisters one has from an aneurysm in the brain. 2 sisters have history of kidney stones. Patient has one brother that was shot as cause of , he was on the kidney transplant list. Patient has 6 children with no major medical problems. General Exam - General Exam Comments Initial Comments: General: Appears in no acute distress. HEAD: Normal with no signs of head trauma. EYES: PERRLA, EOMI, conjunctiva normal, no discharge. ENT: Hearing grossly intact, normal oropharynx. RESPIRATORY: Crackles in bilateral lung bases. No increased work of breathing. Saturating well on home oxygen nasal cannula. C/V: Regular rate and rhythm. S1 and S2 auscultated, no edema, peripheral pulses 2+ and intact throughout. right upper extremity AV fistula has a palpable thrill and audible bruit. ABD: Abd is soft, nontender, nondistended EXT: Normal range of motion, no obvious deformity SKIN: No rashes or lesions observed on exposed skin. NEURO: Alert and oriented 4. No focal deficits. Limitations: no limitations Course Vital Signs 09/11/21 09/11/21 09/11/21 09:56 18:25 18:56 Temperature 97.0 F L 97.6 F Pulse Rate 71 62 Pulse Rate [ 64 [employer] ] Respiratory 18 18 18 Rate Blood Pressure 171/96 177/94 Blood Pressure 172/88 [Left Arm] O2 Sat by Pulse 99 96 Oximetry Medical Decision Making - Medical Decision Making Based on the patient's presentation and physical exam, he does appear to be somewhat fluid overloaded at this time likely secondary to missing his dialysis appointment today. Pulse oximetry is within normal limits. He currently has no acute problems and is complaining of chronic issues such as a chronic cough that is unchanged for multiple months. Basic laboratory studies and cardiac labs were obtained by triage. There were remarkable for a macrocytic anemia which is chronic with a hemoglobin of 8.4 which is stable. Patient has a slightly elevated potassium of 5.3 with peaked T waves on EKG. EKG shows no signs of acute ischemia. Patient has an elevated BUN/creatinine centimeters ESRD on hemodialysis. Patient's BNP is 94,000. Patient's troponin is 0.039, which is his chronic baseline dating back to multiple visits ranging from 0.2-0.5 over the last 2 years. This is secondary to his chronic ESRD. He has no chest pain. Patient is Covid negative. I discussed with the patient I believe he is fluid overloaded I would like to arrange for dialysis here in the department and then sent him home. I'm not concerned about hypoxia, as the patient has had a stable pulse oximetry reading since arrival in the emergency department of 96-100% on room air. He was in agreement with this plan. I contact the patient's director of sustainability programs, Dr. Park who will arrange for dialysis here in the department. I do not believe that the patient requires evaluation for his elevated troponin is at his chronic finding secondary to his ESRD in the absence of EKG changes as well as in the absence of any other symptoms suggestive of ACS. Due to the patient's elevated potassium with EKG changes, I will provide him with a dose of calcium gluconate to stabilize the cardiac membranes until dialysis. Patient was in agreement this plan. Following dialysis, patient maintained stable. He remains hypertensive but his baseline hypertension systolics in the 160s to 170s. I do believe it is safe to be discharged home at this time. His symptoms are improved. Patient was in agreement this plan. I instructed the patient to follow up with their PCP in the next 3 days. . I explained that the patient should return to the emergency department if they experience any worsening symptoms. Strict return precautions were discussed with the patient. The patient expressed understanding of these instructions. I answered all questions that the patient had. The patient was discharged home in good condition with their prescriptions and follow up information. - Lab Data Result diagrams: 09/11/21 10:37 09/11/21 10:37 Lab Results 09/11/21 09/11/21 09/11/21 Range/Units 10:37 10:37 10:37 WBC 6.5 (3.8-10.6) k/uL RBC 2.41 L (4.30-5.90) m/uL Hgb 8.4 L (13.0-17.5) gm/dL Hct 24.6 L (39.0-53.0) % MCV 101.9 H (80.0-100.0) fL MCH 35.0 (25.0-35.0) pg MCHC 34.4 (31.0-37.0) g/dL RDW 17.4 H (11.5-15.5) % Plt Count 132 L (150-450) k/uL MPV 8.4 Neutrophils % 84 % Lymphocytes % 8 % Monocytes % 4 % Eosinophils % 2 % Basophils % 1 % Neutrophils # 5.4 (1.3-7.7) k/uL Lymphocytes # 0.5 L (1.0-4.8) k/uL Monocytes # 0.2 (0-1.0) k/uL Eosinophils # 0.1 (0-0.7) k/uL Basophils # 0.1 (0-0.2) k/uL Anisocytosis Slight Macrocytosis Moderate PT 11.3 (9.0-12.0) sec INR 1.1 (<1.2) APTT 27.1 (22.0-30.0) sec Sodium 135 L (137-145) mmol/L Potassium 5.3 H (3.5-5.1) mmol/L Chloride 96 L (98-107) mmol/L Carbon Dioxide 28 (22-30) mmol/L Anion Gap 11 mmol/L BUN 51 H (9-20) mg/dL Creatinine 11.30 H* (0.66-1.25) mg/dL Est GFR (CKD-EPI)AfAm 5 (>60 ml/min/1.73 sqM) Est GFR (CKD-EPI)NonAf 5 (>60 ml/min/1.73 sqM) Glucose 111 H (74-99) mg/dL Plasma Lactic Acid Tenzin (0.7-2.0) mmol/L Calcium 9.4 (8.4-10.2) mg/dL Magnesium 1.8 (1.6-2.3) mg/dL Total Bilirubin 1.4 H (0.2-1.3) mg/dL AST 23 (17-59) U/L ALT 12 (4-49) U/L Alkaline Phosphatase 75 (38-126) U/L Troponin I (0.000-0.034) ng/mL NT-Pro-B Natriuret Pep pg/mL Total Protein 6.6 (6.3-8.2) g/dL Albumin 4.1 (3.5-5.0) g/dL Coronavirus (PCR) (Not Detectd) 09/11/21 09/11/21 09/11/21 Range/Units 10:37 10:37 10:37 WBC (3.8-10.6) k/uL RBC (4.30-5.90) m/uL Hgb (13.0-17.5) gm/dL Hct (39.0-53.0) % MCV (80.0-100.0) fL MCH (25.0-35.0) pg MCHC (31.0-37.0) g/dL RDW (11.5-15.5) % Plt Count (150-450) k/uL MPV Neutrophils % % Lymphocytes % % Monocytes % % Eosinophils % % Basophils % % Neutrophils # (1.3-7.7) k/uL Lymphocytes # (1.0-4.8) k/uL Monocytes # (0-1.0) k/uL Eosinophils # (0-0.7) k/uL Basophils # (0-0.2) k/uL Anisocytosis Macrocytosis PT (9.0-12.0) sec INR (<1.2) APTT (22.0-30.0) sec Sodium (137-145) mmol/L Potassium (3.5-5.1) mmol/L Chloride (98-107) mmol/L Carbon Dioxide (22-30) mmol/L Anion Gap mmol/L BUN (9-20) mg/dL Creatinine (0.66-1.25) mg/dL Est GFR (CKD-EPI)AfAm (>60 ml/min/1.73 sqM) Est GFR (CKD-EPI)NonAf (>60 ml/min/1.73 sqM) Glucose (74-99) mg/dL Plasma Lactic Acid Tenzin 0.7 (0.7-2.0) mmol/L Calcium (8.4-10.2) mg/dL Magnesium (1.6-2.3) mg/dL Total Bilirubin (0.2-1.3) mg/dL AST (17-59) U/L ALT (4-49) U/L Alkaline Phosphatase (38-126) U/L Troponin I 0.039 H* (0.000-0.034) ng/mL NT-Pro-B Natriuret Pep 75007 pg/mL Total Protein (6.3-8.2) g/dL Albumin (3.5-5.0) g/dL Coronavirus (PCR) (Not Detectd) 09/11/21 Range/Units 11:27 WBC (3.8-10.6) k/uL RBC (4.30-5.90) m/uL Hgb (13.0-17.5) gm/dL Hct (39.0-53.0) % MCV (80.0-100.0) fL MCH (25.0-35.0) pg MCHC (31.0-37.0) g/dL RDW (11.5-15.5) % Plt Count (150-450) k/uL MPV Neutrophils % % Lymphocytes % % Monocytes % % Eosinophils % % Basophils % % Neutrophils # (1.3-7.7) k/uL Lymphocytes # (1.0-4.8) k/uL Monocytes # (0-1.0) k/uL Eosinophils # (0-0.7) k/uL Basophils # (0-0.2) k/uL Anisocytosis Macrocytosis PT (9.0-12.0) sec INR (<1.2) APTT (22.0-30.0) sec Sodium (137-145) mmol/L Potassium (3.5-5.1) mmol/L Chloride (98-107) mmol/L Carbon Dioxide (22-30) mmol/L Anion Gap mmol/L BUN (9-20) mg/dL Creatinine (0.66-1.25) mg/dL Est GFR (CKD-EPI)AfAm (>60 ml/min/1.73 sqM) Est GFR (CKD-EPI)NonAf (>60 ml/min/1.73 sqM) Glucose (74-99) mg/dL Plasma Lactic Acid Tenzin (0.7-2.0) mmol/L Calcium (8.4-10.2) mg/dL Magnesium (1.6-2.3) mg/dL Total Bilirubin (0.2-1.3) mg/dL AST (17-59) U/L ALT (4-49) U/L Alkaline Phosphatase (38-126) U/L Troponin I (0.000-0.034) ng/mL NT-Pro-B Natriuret Pep pg/mL Total Protein (6.3-8.2) g/dL Albumin (3.5-5.0) g/dL Coronavirus (PCR) Not Detected (Not Detectd) - EKG Data -: EKG Interpreted by Me EKG Comments: 12-lead Electrocardiogram Interpretation Note EKG was reviewed and interpreted by myself. 12-lead ECG performed at [facility] is interpreted by me as revealing normal sinus rhythm at a rate of 71 beats per minute. [place] is normal. [place] interval is 132 ms, QRS duration is 96 ms, QTc is 482 ms.. There were no ST or T wave abnormalities to suggest myocardial ischemia or injury. R wave progression across the precordium was satisfactory. By my interpretation this EKG is non-diagnostic for acute ischemia. There are slightly peaked T waves, and we will assess for hyperkalemia in the setting of missed dialysis today. Disposition Clinical Impression: Missed dialysis, Hyperkalemia, Volume overload, Chronic respiratory failure with hypoxia, Chronic hypertension Disposition: HOME SELF-CARE Condition: Fair Is patient prescribed a controlled substance at d/c from ED?: No Referrals: Jaylen Holguin MD [Primary Care Provider] - 1-2 days
[2021-09-11 18:26] VITALS: TEMP 97.6
[2021-09-11 19:02] VITALS: BP 177/94; PULSE 62
== END 2021-09-11 19:08 | disposition home or self-care (01) ==
LOC: EC 09:41
DX: I12.0 Hypertensive chronic kidney disease with stage 5 chronic kidney disease or end stage renal disease (principal); E87.70 Fluid overload, unspecified; J96.11 Chronic respiratory failure with hypoxia; N18.6 End stage renal disease; E78.5 Hyperlipidemia, unspecified; I48.0 Paroxysmal atrial fibrillation; J44.9 Chronic obstructive pulmonary disease, unspecified; E87.5 Hyperkalemia; F17.200 Nicotine dependence, unspecified, uncomplicated; Z79.51 Long term (current) use of inhaled steroids; Z88.5 Allergy status to narcotic agent; Z88.8 Allergy status to other drugs, medicaments and biological substances; Z79.899 Other long term (current) drug therapy; Z86.73 Personal history of transient ischemic attack (TIA), and cerebral infarction without residual deficits; Z99.2 Dependence on renal dialysis; Z20.822 Contact with and (suspected) exposure to COVID-19
CPT/HCPCS: 96365 ×2; 99285 ×2; 36415; 93005; 83880; 80053; 83605; 83735; 84484; 85025; 85610; 85730; 87635; 71046; G0257; J0610; 90935

== ENCOUNTER 2021-10-06 07:34 | Day surgery (SDC) | payer MEDICARE, BC ==
[2021-10-06] MEDS ORDERED: LACTATED RINGERS 1,000 ML IV SCH (08:03)
[2021-10-06 08:34] VITALS: RESP 16; TEMP 97.2
[2021-10-06] MEDS ORDERED: LIDOCAINE 1% INJ 10MG/ML (20 ML MDV) ONE (09:08)
[2021-10-06] MEDS ORDERED: PROPOFOL 10 MG/ML 20 ML VIAL IV ONE (09:08)
--- NOTE | 2021-10-06 09:25 | P.PCN ---
Date of Procedure: 10/06/21 Procedure(s) Performed: BRIEF HISTORY: Patient is a 51-year-old, pleasant, white male with history of end-stage renal disease on hemodialysis is scheduled for an upper endoscopy as a part of evaluation of severe anemia requiring multiple blood transfusions in the last 2 months duration. He also has been complaining of intermittent dark stools. His last EGD was in May 2020 and was noted to have oozing AVMs and the stomach and duodenum and cauterized.. His last colonoscopy was in May 2019 that was unremarkable. PROCEDURE PERFORMED: Esophagogastroduodenoscopy. PREOPERATIVE DIAGNOSIS: Severe symptomatic anemia and intermittent black-colored stools. IV sedation per anesthesia. PROCEDURE: After informed consent was obtained, the patient was brought into the endoscopy unit. IV sedation was administered by Anesthesia under continuous monitoring. Initially the Olympus GIF-140 video endoscope was inserted into the mouth. Esophagus intubated without any difficulty. It was gradually advanced into the stomach and duodenum and carefully examined. The bulb and the second part of the duodenum had some any matters mucosa but no obvious angiectasia or active bleeding identified.. The scope at this time was withdrawn to the stomach, adequately insufflated with air, and upon careful examination, mucosa of the antrum, body appeared normal. In the fundus of the stomach there was moderate amount of retained food noted. There was some gastritis noted in the cardia of the stomach. No angiectasia identified. The scope was then withdrawn into the esophagus. The GE junction was located at 39 cm from the incisors. The esophagus appeared normal. There were no erosions or ulcerations seen and the patient tolerated the procedure well. IMPRESSION: 1. Mild gastritis. 2. No evidence of active bleeding, angiectasia or peptic ulcer disease. RECOMMENDATIONS: The findings of this examination were discussed with the patient as well as his family. Since no obvious source of bleeding identified, he'll be scheduled for a small bowel capsule endoscopy to evaluate further.
[2021-10-06 09:47] VITALS: BP 176/85; PULSE 73
== END 2021-10-06 10:11 | disposition home or self-care (01) ==
LOC: ORWHC2ENDO 07:34
PROVIDERS: ATTEND Internal Medicine Gastroenterology
DX: I12.0 Hypertensive chronic kidney disease with stage 5 chronic kidney disease or end stage renal disease (principal); N18.6 End stage renal disease; D63.1 Anemia in chronic kidney disease; I48.91 Unspecified atrial fibrillation; Z99.81 Dependence on supplemental oxygen; M48.00 Spinal stenosis, site unspecified; E78.5 Hyperlipidemia, unspecified; Z88.5 Allergy status to narcotic agent; Z86.73 Personal history of transient ischemic attack (TIA), and cerebral infarction without residual deficits; Z79.899 Other long term (current) drug therapy; Z99.2 Dependence on renal dialysis
CPT/HCPCS: 43235; J2001; J2704

== ENCOUNTER → 2021-11-07 | Day surgery (SDC) | payer MEDICARE, BC ==
[2021-11-06 12:56] VITALS: BMI 26.5
== END ==
LOC: ORWHC2ENDO 06:21
PROVIDERS: ATTEND Internal Medicine Gastroenterology
DX: K29.80 Duodenitis without bleeding (principal); D50.9 Iron deficiency anemia, unspecified; Z79.899 Other long term (current) drug therapy; K92.2 Gastrointestinal hemorrhage, unspecified
CPT/HCPCS: 91110

== ENCOUNTER 2022-02-20 11:13 | Inpatient (IN) | payer MEDICARE, BC ==
--- NOTE | 2022-02-20 11:41 | ED ---
General Adult HPI - General Chief complaint: Shortness of Breath Stated complaint: SOB Time Seen by Provider: 02/20/22 11:25 Source: patient, RN notes reviewed, old records reviewed Mode of arrival: ambulatory Limitations: no limitations - History of Present Illness Initial comments: This is a 51-year-old male who presents emergency Department with a past medical history significant for renal failure and 13 years of dialysis, patient also has high blood pressure and is a smoker. Patient comes in today because he was experiencing 15 minutes of left-sided chest pain and some shortness of breath. Patient states the chest pain went away on its own but it concerned him enough because he was told the past he might of had a heart attack. Patient states since he had coded in November continues to cough and have sputum production. Patient states he has followed up with a vegetable packer since and they state over the spine. Patient denies any abdominal pain patient denies nausea vomiting diarrhea. Patient denies headache patient denies numbness weakness. Patient denies lightheadedness. Patient denies any radiation of the chest pain patient denies any diaphoretic episodes with the chest pain. Patient denies any significant increase in swelling to his legs. Patient states she was supposed go to dialysis yesterday but he was having diarrhea so he did not go yesterday. - Related Data Home Medications Medication Instructions Recorded Confirmed Sevelamer [Renvela] 800 mg PO AC-TID 06/16/19 01/03/22 Pantoprazole [Protonix] 40 mg PO BID@0700,1700 04/08/20 01/03/22 hydrALAZINE HCL [Apresoline] 100 mg PO TID@0700,1200,1700 04/08/20 01/03/22 Atorvastatin [Lipitor] 20 mg PO DAILY@0700 05/30/20 01/03/22 Gabapentin [Neurontin] 100 mg PO BID@0700,1700 05/30/20 01/03/22 amLODIPine [Norvasc] 5 mg PO BID@0700,1700 05/30/20 01/03/22 Calcium Acetate [PhosLo] 2 tab PO TID@0700,1200,1700 12/15/20 01/03/22 Acetaminophen with Codeine 1 tab PO Q8HR PRN 01/03/22 01/03/22 [Tylenol w/Codeine #4 Tablet] Doxazosin [Cardura] 2 mg PO BID 01/03/22 01/03/22 Furosemide [Lasix] 80 mg PO BID 01/03/22 01/03/22 Labetalol [Trandate] 100 mg PO BID 01/03/22 01/03/22 Methocarbamol [Robaxin-750] 750 mg PO TID PRN 01/03/22 01/03/22 levETIRAcetam [Keppra] 1,000 mg PO BID 01/03/22 01/03/22 Previous Rx's Medication Instructions Recorded Budesonide-Formot 160-4.5 Mcg 2 puff INHALATION BID #10.2 gm 07/22/21 [Symbicort 160-4.5 Mcg Inhaler] Allergies Allergy/AdvReac Type Severity Reaction Status Date / Time hydromorphone [From Dilaudid] AdvReac Hallucinati Verified 02/20/22 11:24 ons morphine AdvReac Hallucinati Verified 02/20/22 11:24 ons tramadol AdvReac Hallucinati Verified 02/20/22 11:24 ons Review of Systems ROS Statement: Those systems with pertinent positive or pertinent negative responses have been documented in the HPI. ROS Other: All systems not noted in ROS Statement are negative. 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 eye injection with steroid on 04/04 for eye "stroke" Past Anesthesia/Blood Transfusion Reactions: No Reported Reaction Additional Past Anesthesia/Blood Transfusion Reaction / Comment(s): Pt has received blood in past without reaction. Past Psychological History: No Psychological Hx Reported Smoking Status: Current every day smoker Past Alcohol Use History: None Reported Past Drug Use History: None Reported - Past Family History Father Family Medical History: Cancer, CVA/TIA Additional Family Medical History / Comment(s): Father had lymphoma. He had a CVA Mother Family Medical History: CVA/TIA Additional Family Medical History / Comment(s): Mother had a CVA. Sister(s) Additional Family Medical History / Comment(s): Patient has 5 sisters one has from an aneurysm in the brain. 2 sisters have history of kidney stones. Patient has one brother that was shot as cause of , he was on the kidney transplant list. Patient has 6 children with no major medical problems. General Exam - General Exam Comments Initial Comments: GENERAL: Patient is well-developed and well-nourished. Patient is nontoxic and well- hydrated and is in no acute distress. ENT: Neck is soft and supple. No significant lymphadenopathy is noted. Oropharynx i s clear. Moist mucous membranes. Neck has full range of motion without eliciting any pain. EYES: The sclera were anicteric and conjunctiva were pink and moist. Extraocular movements were intact and pupils were equal round and reactive to light. Eyelids were unremarkable. PULMONARY: Unlabored respirations. Good breath sounds bilaterally. Patient has some crackles in the right base. CARDIOVASCULAR: There is a regular rate and rhythm without any murmurs gallops or rubs. ABDOMEN: Soft and nontender with normal bowel sounds. SKIN: Skin is clear with no lesions or rashes and otherwise unremarkable. NEUROLOGIC: Patient is alert and oriented x3. Cranial nerves II through XII are grossly intact. Motor and sensory are also intact. Normal speech, volume and content. Symmetrical smile. MUSCULOSKELETAL: Normal extremities with adequate strength and full range of motion. No lower extremity swelling or edema. No calf tenderness. LYMPHATICS: No significant lymphadenopathy is noted PSYCHIATRIC: Normal psychiatric evaluation. Limitations: no limitations Course Vital Signs 02/20/22 02/20/22 11:22 11:50 Temperature 98.2 F Pulse Rate 85 83 Respiratory 20 18 Rate Blood Pressure 186/94 183/110 O2 Sat by Pulse 99 97 Oximetry Medical Decision Making - Medical Decision Making EKG shows sinus rhythm at 83 bpm NV interval 243 QRSs 89 QT interval 48 QTC is 440. Patient's EKG shows no ST segment elevation or depression. Chest x-ray shows bilateral increased infiltrates. Patient also has high blood pressures I gave the patient some hydralazine. I spoke with Dr. Bruno he agreed to admit the patient and the patient wrote admitting orders I consult cardiology and nephrology and pulmonary - Lab Data Result diagrams: 02/20/22 12:03 02/20/22 12:03 Lab Results 02/20/22 02/20/22 02/20/22 Range/Units 12:03 12:03 12:03 WBC 8.0 (3.8-10.6) k/uL RBC 2.73 L (4.30-5.90) m/uL Hgb 9.8 L (13.0-17.5) gm/dL Hct 28.8 L (39.0-53.0) % MCV 105.5 H (80.0-100.0) fL MCH 35.8 H (25.0-35.0) pg MCHC 34.0 (31.0-37.0) g/dL RDW 17.4 H (11.5-15.5) % Plt Count 123 L (150-450) k/uL MPV 7.8 Poikilocytosis Slight Anisocytosis Slight Macrocytosis Marked A PT 10.9 (9.0-12.0) sec INR 1.0 (<1.2) APTT 25.9 (22.0-30.0) sec Sodium 139 (137-145) mmol/L Potassium 4.7 (3.5-5.1) mmol/L Chloride 100 (98-107) mmol/L Carbon Dioxide 28 (22-30) mmol/L Anion Gap 11 mmol/L BUN 61 H (9-20) mg/dL Creatinine 10.37 H* (0.66-1.25) mg/dL Est GFR (CKD-EPI)AfAm 6 (>60 ml/min/1.73 sqM) Est GFR (CKD-EPI)NonAf 5 (>60 ml/min/1.73 sqM) Glucose 97 (74-99) mg/dL Plasma Lactic Acid Tenzin (0.7-2.0) mmol/L Calcium 8.7 (8.4-10.2) mg/dL Magnesium 1.8 (1.6-2.3) mg/dL Total Bilirubin 1.3 (0.2-1.3) mg/dL AST 24 (17-59) U/L ALT 12 (4-49) U/L Alkaline Phosphatase 72 (38-126) U/L Troponin I (0.000-0.034) ng/mL Total Protein 6.3 (6.3-8.2) g/dL Albumin 3.5 (3.5-5.0) g/dL 02/20/22 02/20/22 Range/Units 12:03 12:03 WBC (3.8-10.6) k/uL RBC (4.30-5.90) m/uL Hgb (13.0-17.5) gm/dL Hct (39.0-53.0) % MCV (80.0-100.0) fL MCH (25.0-35.0) pg MCHC (31.0-37.0) g/dL RDW (11.5-15.5) % Plt Count (150-450) k/uL MPV Poikilocytosis Anisocytosis Macrocytosis PT (9.0-12.0) sec INR (<1.2) APTT (22.0-30.0) sec Sodium (137-145) mmol/L Potassium (3.5-5.1) mmol/L Chloride (98-107) mmol/L Carbon Dioxide (22-30) mmol/L Anion Gap mmol/L BUN (9-20) mg/dL Creatinine (0.66-1.25) mg/dL Est GFR (CKD-EPI)AfAm (>60 ml/min/1.73 sqM) Est GFR (CKD-EPI)NonAf (>60 ml/min/1.73 sqM) Glucose (74-99) mg/dL Plasma Lactic Acid Tenzin 0.7 (0.7-2.0) mmol/L Calcium (8.4-10.2) mg/dL Magnesium (1.6-2.3) mg/dL Total Bilirubin (0.2-1.3) mg/dL AST (17-59) U/L ALT (4-49) U/L Alkaline Phosphatase (38-126) U/L Troponin I 0.035 H* (0.000-0.034) ng/mL Total Protein (6.3-8.2) g/dL Albumin (3.5-5.0) g/dL Disposition Clinical Impression: Missed dialysis, Hypertensive urgency, Chest pain, Pulmonary infiltrates Disposition: ADMITTED IP TO THIS HOSP Referrals: Jaylen Holguin MD [Primary Care Provider] - 1-2 days Time of Disposition: 13:20
--- NOTE | 2022-02-20 12:28 | XR ---
EXAMINATION TYPE: XR chest 2V DATE OF EXAM: 02/20/2022 COMPARISON: 09/11/2021 INDICATION: Difficulty breathing and chest pain TECHNIQUE: Frontal and lateral views of the chest are obtained. FINDINGS: The heart size is normal. The pulmonary vasculature is somewhat prominent. Diffuse increased lung markings are through the lower lung kent bilaterally. Findings are nonspecif ic. Correlate for atelectasis, pneumonia, and atypical pulmonary edema. Small left pleural effusion m ay be present.. IMPRESSION: 1. Atrophy bilateral lung infiltrates. Recurrent atelectasis, pneumonia or atypical pulmonary edema c ould be considered. Follow-up exams are recommended.
[2022-02-20 12:33] LABS: Albumin 3.5 g/dL (3.5-5.0); Calcium 8.7 mg/dL (8.4-10.2); Magnesium 1.8 mg/dL (1.6-2.3); Potassium 4.7 mmol/L (3.5-5.1); Total Bilirubin 1.3 mg/dL (0.2-1.3); Total Protein 6.3 g/dL (6.3-8.2)
[2022-02-20 12:36] LABS: Partial Thromboplastin Time 25.9 sec (22.0-30.0); Prothrombin Time 10.9 sec (9.0-12.0)
[2022-02-20 13:00] LABS: Anisocytosis Slight; Basophils # (A) 0.1 k/uL (0-0.2); Basophils % (A) 1 %; Eosinophils # (A) 0.3 k/uL (0-0.7); Eosinophils % (A) 4 %; HCT 28.8 % (39.0-53.0); HGB 9.8 gm/dL (13.0-17.5); Lymphocytes % (A) 12 %; MCH 35.8 pg (25.0-35.0); MCV 105.5 fL (80.0-100.0); Macrocytosis Marked; Mean Platelet Volume 7.8; Monocytes # (A) 0.3 k/uL (0-1.0); Monocytes % (A) 3 %; Neutrophils # (A) 6.3 k/uL (1.3-7.7); Neutrophils % (A) 79 %; Platelet Count 123 k/uL (150-450); Poikilocytosis Slight; RBC 2.73 m/uL (4.30-5.90); RDW 17.4 % (11.5-15.5)
[2022-02-20] MEDS ORDERED: hydrALAZINE HCL 20 MG/ML 1 ML VIAL IVP STA (13:17)
--- NOTE | 2022-02-20 18:51 | P.HPIM ---
History of Present Illness H&P Date: 02/20/22 History of Present Illness This is a 51-year-old male patient of Dr. Holguin with past medical history of end-stage renal disease secondary to kidney stones on hemodialysis for 10 years 3 times weekly, Saturday, hypertension, hypertensive cardiovascular disease, seizure disorder, left thalamus stroke, previous admission for acute hypoxic respiratory failure secondary to fluid overload from missing dialysis treatments requiring mechanical ventilation, history of empyema status post VATS and pericardial window, history of chronic thrombocytopenia, tobacco use and dependence-continues to be an active smoker, paroxysmal atrial fibrillation in February 2018, history of GI bleed secondary to ulcers in the esophagus stomach and duodenum. Patient developed shortness of breath, no chest pain, no fever or chills. He states he has cough with blood in his sputum. He states the hemoptysis comes and goes is been going on for the past 3-4 months. He last saw Dr. Fraire in March.. Patient's had increased shortness of breath and did miss dialysis treatment. Patient came into [facility] emergency center today after missing hemodialysis yesterday with complaint of mid thoracic chest pain with anginal component radiating toward the left side associated with mild nausea increased cough worsening shortness of breath. Was seen and evaluated his troponin is mildly elevated at 0.035 with BNP of 1 34,000. Patient is in significant fluid overload with worsening angina despite specially with elevated troponin. Patient be admitted to the hospital seen cardiology and nephrology hemodialysis will be done on urgent basis and his full workup cardio vascular- wright and be done Review of Systems Constitutional: No fever, no chills, no night sweats. No weight change. No weakness, No fatigue. No daytime sleepiness. EENT: No headache. No blurred vision or double vision, no loss of vision. No loss of Hearing, no ringing in the ears, no dizziness. No nasal drainage or congestion. No epistaxis. No sore throat. Lungs: reported shortness of breath, reports cough, reports sputum production, reports hemoptysis. Reports wheezing. Cardiovascular: No chest pain, no lower extremity edema. No palpitations. No paroxysmal nocturnal dyspnea. No lightheadedness or dizziness. No syncopal episodes. Abdominal: No abdominal pain. denies nausea, vomiting. No diarrhea. No constipation. No bloody or tarry stools. Reports loss of appetite. Musculoskeletal: No myalgias. No muscle weakness, no gait dysfunction, no frequent falls. No back pain. Reports neck pain. Integumentary: No wounds, no lesions. No rash or pruritus. No unusual bruising. No change in hair or nails. Neurologic: No aphasia. No facial droop. No change in mentation. No head injury. No headache. No paralysis. No paresthesia. Psychiatric: No depression. No anxiety. No mood swings. Endocrine: No abnormal blood sugars. No weight change. Physical Examination Gen: This is a 51-year-old male patient resting in bed and appears to in no acute respiratory distress. HEENT: Head is atraumatic, normocephalic. Pupils equal, round. Sclerae is anicteric. Overall skin color lozano. NECK: Supple. No JVD. No lymphadenopathy. No thyromegaly. LUNGS: Expiratory wheeze bilaterally. No accessory muscle usage. No intercostal retractions. HEART: Regular rate and rhythm. Systolic murmur. ABDOMEN: Soft. Bowel sounds are present. No masses. No tenderness. EXTREMITIES: No pedal edema. No calf tenderness. No lower extremity wounds. Fistula right arm NEUROLOGICAL: Patient is awake, alert and oriented x3. Cranial nerves 2 through 12 are grossly intact. Assessment and Plan 1. Acute anginal chest pain: Patient had multi-risk factor for heart disease CK with troponin 3 will be done consult cardiology echocardiogram will be done patient might need intervention. 2 worsening fluid overload: From missing dialysis and diastolic congestive heart failure, patient be going for dialysis will continue diuresis with IV diuretics at this point nephrology consultation will be done and may be required and adnexa dialysis next 24 hours. 3. End-stage renal disease on hemodialysis Saturday. Consult with nephrology for dialysis. 4. History of anemia of chronic disease with baseline hemoglobin of 8. 5. acute on chronic diastolic heart failure. Consult nephrology, continue HD. Continue diuretics. 6. Hypertension, hypertensive cardiovascular disease. Continue amlodipine 5 mg twice daily, hydralazine 100 mg 3 times daily, labetalol 200 mg twice daily. 7. History of seizure disorder. Continue Keppra 1000 mg twice daily. 8. History of empyema status post VATS and pericardial window. 9. History of left thalamus stroke. Continue Lipitor 20 mg daily for secondary prevention. 10. Tobacco use and dependence. Nicotine patch ordered as needed as patient is denying need at this time. 11. Chronic thrombocytopenia. Currently stable. 12. DVT prophylaxis. KP hose and SCDs. 13. GI prophylaxis. Protonix 14. CODE STATUS: Full code. Patient will be admitted to the hospital for a minimum of 2 night stay. 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 eye injection with steroid on 04/04 for eye "stroke" Past Anesthesia/Blood Transfusion Reactions: No Reported Reaction Additional Past Anesthesia/Blood Transfusion Reaction / Comment(s): Pt has received blood in past without reaction. Smoking Status: Current every day smoker - Past Family History Father Family Medical History: Cancer, CVA/TIA Additional Family Medical History / Comment(s): Father had lymphoma. He had a CVA Mother Family Medical History: CVA/TIA Additional Family Medical History / Comment(s): Mother had a CVA. Sister(s) Additional Family Medical History / Comment(s): Patient has 5 sisters one has from an aneurysm in the brain. 2 sisters have history of kidney stones. Patient has one brother that was shot as cause of , he was on the kidney transplant list. Patient has 6 children with no major medical problems. Medications and Allergies Home Medications Medication Instructions Recorded Confirmed Type Sevelamer [Renvela] 800 mg PO ACHS 06/16/19 02/20/22 History Pantoprazole [Protonix] 40 mg PO BID@0700,1700 04/08/20 02/20/22 History hydrALAZINE HCL [Apresoline] 100 mg PO TID@0700,1200,1700 04/08/20 02/20/22 History Atorvastatin [Lipitor] 20 mg PO DAILY@0700 05/30/20 02/20/22 History Gabapentin [Neurontin] 100 mg PO BID@0700,1700 05/30/20 02/20/22 History amLODIPine [Norvasc] 5 mg PO BID@0700,1700 05/30/20 02/20/22 History Calcium Acetate [PhosLo] 667 mg PO TID@0700,1200,1700 12/15/20 02/20/22 History Furosemide [Lasix] 80 mg PO BID@0700,1700 01/03/22 02/20/22 History Labetalol [Trandate] 100 mg PO BID@0700,1700 01/03/22 02/20/22 History Albuterol Nebulized [Ventolin 2.5 mg INHALATION RT-Q8H PRN 02/20/22 02/20/22 History Nebulized] Budesonide [Pulmicort] 0.5 mg INHALATION RT-BID 02/20/22 02/20/22 History levETIRAcetam [Keppra] 1,000 mg PO BID@0700,1700 02/20/22 02/20/22 History Allergies Allergy/AdvReac Type Severity Reaction Status Date / Time hydromorphone [From Dilaudid] AdvReac Hallucinati Verified 02/20/22 13:32 ons morphine AdvReac Hallucinati Verified 02/20/22 13:32 ons tramadol AdvReac Hallucinati Verified 02/20/22 13:32 ons Physical Exam Vitals: Vital Signs Temp Pulse Pulse Resp BP BP Pulse Ox 02/20/22 18:25 78 18 02/20/22 18:11 98.3 F 77 18 172/84 98 02/20/22 16:00 77 19 167/94 97 02/20/22 15:30 79 16 163/99 96 02/20/22 15:00 78 16 181/106 96 02/20/22 14:30 80 16 176/94 96 02/20/22 13:54 78 180/95 02/20/22 13:30 75 16 180/99 97 02/20/22 13:00 78 16 187/108 97 02/20/22 11:50 83 18 183/110 97 02/20/22 11:22 98.2 F 85 20 186/94 99 Intake and Output 02/20/22 02/20/22 02/20/22 06:59 14:59 22:59 Other: Weight 70.307 kg 70.307 kg Results CBC & Chem 7: 02/20/22 12:03 02/20/22 12:03 Labs: Abnormal Lab Results - Last 24 Hours (Table) 02/20/22 02/20/22 02/20/22 Range/Units 12:03 12:03 12:03 RBC 2.73 L (4.30-5.90) m/uL Hgb 9.8 L (13.0-17.5) gm/dL Hct 28.8 L (39.0-53.0) % MCV 105.5 H (80.0-100.0) fL MCH 35.8 H (25.0-35.0) pg RDW 17.4 H (11.5-15.5) % Plt Count 123 L (150-450) k/uL Macrocytosis Marked A BUN 61 H (9-20) mg/dL Creatinine 10.37 H* (0.66-1.25) mg/dL Troponin I 0.035 H* (0.000-0.034) ng/mL 02/20/22 Range/Units 14:26 RBC (4.30-5.90) m/uL Hgb (13.0-17.5) gm/dL Hct (39.0-53.0) % MCV (80.0-100.0) fL MCH (25.0-35.0) pg RDW (11.5-15.5) % Plt Count (150-450) k/uL Macrocytosis BUN (9-20) mg/dL Creatinine (0.66-1.25) mg/dL Troponin I 0.037 H* (0.000-0.034) ng/mL Thrombosis Risk Factor Assmnt - Choose All That Apply Any of the Below Risk Factors Present?: Yes Each Factor Represents 1 point: Age 41-60 years, Serious lung disease incl. pneumonia (< 1month) Other Risk Factors: No Other congenital or acquired thrombophilia - If yes, enter type in comment: No Thrombosis Risk Factor Assessment Total Risk Factor Score: 2 Thrombosis Risk Factor Assessment Level: Low Risk
[2022-02-20] MEDS: SEVELAMER 800 MG TAB PO SCH (20:31)
[2022-02-20] MEDS: BUDESONIDE 0.5 MG/2 ML NEBU INHALATION SCH (20:46)
[2022-02-20] MEDS: hydrALAZINE HCL 50 MG TAB PO PRN (23:33)
[2022-02-21] MEDS: CALCIUM ACETATE 667 MG TAB PO SCH ×3 (06:37→16:43)
[2022-02-21] MEDS: hydrALAZINE HCL 50 MG TAB PO SCH ×3 (06:37→16:41)
[2022-02-21] MEDS: levETIRAcetam 500 MG TAB PO SCH ×2 (06:37→16:41)
[2022-02-21] MEDS: GABAPENTIN 100 MG CAP PO SCH ×2 (06:37→16:41)
[2022-02-21] MEDS: amLODIPine 5 MG TAB PO SCH ×2 (06:37→16:41)
[2022-02-21] MEDS: ATORVASTATIN 20 MG TAB PO SCH (06:37)
[2022-02-21] MEDS: PANTOPRAZOLE 40 MG TABLET PO SCH ×2 (06:37→16:41)
[2022-02-21] MEDS: LABETALOL 100 MG TAB PO SCH ×2 (06:37→16:44)
[2022-02-21] MEDS: FUROSEMIDE 80 MG TAB PO SCH ×2 (06:37→16:41)
[2022-02-21] MEDS: SEVELAMER 800 MG TAB PO SCH ×4 (06:38→20:36)
[2022-02-21] MEDS: BUDESONIDE 0.5 MG/2 ML NEBU INHALATION SCH ×2 (09:12→20:10)
--- NOTE | 2022-02-21 10:08 | P.PN ---
Subjective Progress Note Date: 02/21/22 History of Present Illness This is a 51-year-old male patient of Dr. Holguin with past medical history of end-stage renal disease secondary to kidney stones on hemodialysis fo r 10 years 3 times weekly, Saturday, hypertension, hypertensive cardiovascular disease, seizure disorder, left thalamus stroke, previous admission for acute hypoxic respiratory failure secondary to fluid overload from missing dialysis treatments requiring mechanical ventilation, history of empyema status post VATS and pericardial window, history of chronic thrombocytopenia, tobacco use and dependence-continues to be an active smoker, paroxysmal atrial fibrillation in February 2018, history of GI bleed secondary to ulcers in the esophagus stomach and duodenum. Patient developed shortness of breath, no chest pain, no fever or chills. He states he has cough with blood in his sputum. He states the hemoptysis comes and goes is been going on for the past 3-4 months. He last saw Dr. Fraire in March.. Patient's had increased shortness of breath and did miss dialysis treatment. Patient came into [facility] emergency center today after missing hemodialysis yesterday with complaint of mid thoracic chest pain with anginal component radiating toward the left side associated with mild nausea increased cough worsening shortness of breath. Was seen and evaluated his troponin is mildly elevated at 0.035 with BNP of 1 34,000. Patient is in significant fluid overload with worsening angina despite specially with elevated troponin. Patient be admitted to the hospital seen cardiology and nephrology hemodialysis will be done on urgent basis and his full workup cardio vascular- wright and be done 02/21: Patient is seen today on the cardiac stepdown unit. He is scheduled for hemodialysis today. They're also consult in place for cardiology regarding chest pain and pulmonary medicine for bilateral pulmonary infiltrates. Echocardiogram has been ordered. Blood pressure readings remained high overnight currently at 171/88 and patient has been resumed on his home blood pressure medications. Patient is denying any chest pain. Troponins 0.037, 0.033, 0.035 and 0.038. . Review of Systems Constitutional: No fever, no chills, no night sweats. No weight change. No weakness, No fatigue. No daytime sleepiness. EENT: No headache. No blurred vision or double vision, no loss of vision. No loss of Hearing, no ringing in the ears, no dizziness. No nasal drainage or congestion. No epistaxis. No sore throat. Lungs: reported shortness of breath, reports cough, reports sputum production, reports hemoptysis. Reports wheezing. Cardiovascular: Denies chest pain, no lower extremity edema. No palpitations. No paroxysmal nocturnal dyspnea. No lightheadedness or dizziness. No syncopal episodes. Abdominal: No abdominal pain. denies nausea, vomiting. No diarrhea. No constipation. No bloody or tarry stools. Reports loss of appetite. Musculoskeletal: No myalgias. No muscle weakness, no gait dysfunction, no frequent falls. No back pain. Reports neck pain. Integumentary: No wounds, no lesions. No rash or pruritus. No unusual bruising. No change in hair or nails. Neurologic: No aphasia. No facial droop. No change in mentation. No head injury. No headache. No paralysis. No paresthesia. Psychiatric: No depression. No anxiety. No mood swings. Endocrine: No abnormal blood sugars. No weight change. Physical Examination Gen: This is a 51-year-old male patient resting in bed and appears to in no acute respiratory distress. HEENT: Head is atraumatic, normocephalic. Pupils equal, round. Sclerae is anicteric. Overall skin color lozano. NECK: Supple. No JVD. No lymphadenopathy. No thyromegaly. LUNGS: Expiratory wheeze bilaterally. No accessory muscle usage. No inter costal retractions. HEART: Regular rate and rhythm. Systolic murmur. ABDOMEN: Soft. Bowel sounds are present. No masses. No tenderness. EXTREMITIES: No pedal edema. No calf tenderness. No lower extremity wounds. Fistula right arm NEUROLOGICAL: Patient is awake, alert and oriented x3. Cranial nerves 2 through 12 are grossly intact. Assessment and Plan 1. Acute anginal chest pain. Cardiology consult, echocardiogram. 2 worsening fluid overload: From missing dialysis and diastolic congestive heart failure, consult with nephrology appreciated, continue Lasix 80 mg twice daily.. 3. End-stage renal disease on hemodialysis Saturday. Consult with nephrology for dialysis. Patient to undergo hemodialysis today. 4. History of anemia of chronic disease with baseline hemoglobin of 8. 5. acute on chronic diastolic heart failure. Consult nephrology, continue HD. Continue diuretics. 6. Hypertension, hypertensive cardiovascular disease uncontrolled secondary to noncompliance. Continue amlodipine 5 mg twice daily, hydralazine 100 mg 3 times daily, labetalol 200 mg twice daily. 7. History of seizure disorder. Continue Keppra 1000 mg twice daily. 8. History of empyema status post VATS and pericardial window. 9. History of left thalamus stroke. Continue Lipitor 20 mg daily for secondary prevention. 10. Tobacco use and dependence. Nicotine patch ordered as needed as patient is denying need at this time. 11. Chronic thrombocytopenia. Currently stable. 12. DVT prophylaxis. KP hose and SCDs. 13. GI prophylaxis. Protonix 14. CODE STATUS: Full code. DISCHARGE PLAN Home on Impression and plan of care have been directed as dictated by the signing physician. Doretha Brumfield nurse practitioner acting as scribe for signing physician. Objective - Vital Signs Vital signs: Vital Signs Temp 97.9 F 02/21/22 07:50 Pulse 78 02/21/22 09:12 Resp 17 02/21/22 07:50 BP 193/94 02/21/22 07:50 Pulse Ox 95 02/21/22 07:50 Intake & Output 02/20/22 02/21/22 02/21/22 18:59 06:59 18:59 Intake Total 10 480 Output Total 0 Balance 10 480 Weight 70.307 kg 66.4 kg Intake: IV 10 0.9 10 Oral 480 Output: Urine 0 Other: Voiding Method Toilet Urinal # Voids 0 - Labs CBC & Chem 7: 02/20/22 12:03 02/20/22 12:03 Labs: Abnormal Lab Results - Last 24 Hours (Table) 02/20/22 02/20/22 02/20/22 Range/Units 12:03 12:03 12:03 RBC 2.73 L (4.30-5.90) m/uL Hgb 9.8 L (13.0-17.5) gm/dL Hct 28.8 L (39.0-53.0) % MCV 105.5 H (80.0-100.0) fL MCH 35.8 H (25.0-35.0) pg RDW 17.4 H (11.5-15.5) % Plt Count 123 L (150-450) k/uL Macrocytosis Marked A BUN 61 H (9-20) mg/dL Creatinine 10.37 H* (0.66-1.25) mg/dL Troponin I 0.035 H* (0.000-0.034) ng/mL 02/20/22 02/20/22 02/20/22 Range/Units 14:26 19:40 22:15 RBC (4.30-5.90) m/uL Hgb (13.0-17.5) gm/dL Hct (39.0-53.0) % MCV (80.0-100.0) fL MCH (25.0-35.0) pg RDW (11.5-15.5) % Plt Count (150-450) k/uL Macrocytosis BUN (9-20) mg/dL Creatinine (0.66-1.25) mg/dL Troponin I 0.037 H* 0.035 H* 0.038 H* (0.000-0.034) ng/mL
--- NOTE | 2022-02-21 10:34 | P.CRDCN ---
History of Present Illness History of present illness: HISTORY OF PRESENT ILLNESS: This is a 51-year-old male with a past medical history significant for hypertension and hyperlipidemia, end-stage renal disease on hemodialysis, COPD, CVA states in 2019, paroxysmal atrial fibrillation not on anticoagulation secondary to GI bleed, seizure disorder, left lung empyema with left-sided VATS procedure and decortication, and nicotine dependence. Patient follows in the office with Dr. Mayorga, last followed up in 2019. We have been asked to see the patient in consultation for chest pain and hypertensive urgency. Patient presents to the emergency department with complaints of chest discomfort episode. Yesterday patient with an episode of chest tightness while sitting down. It was after be blew his nose. Midsternal. Non-radiating, non-exertional. States it lasted for about an hour. Resolved on its own. No specific aggravating or alleviating factors. No associated shortness of breath, palpitations, diaphoresis, nausea, vomiting, lightheadedness, dizziness, cough, fever, chills. Denies syncope or near syncope. He states he did miss dialysis and came to the emergency department for further evaluation. Denies history of IN, CAD, Diabetes. Current every day smoker smokes 1/2-1PPD. DIAGNOSTICS: EKG reveals sinus rhythm, heart rate 83, LVH, T wave inversion in lead aVL, non- specific ST-T wave abnormalities, no acute ischemia noted. Chest xray bilateral lung infiltrates noted. Laboratory data: Troponin 0.035-->0.037-->0.033-->0.035-->0.038, proBNP [id number], BUN 61, serum creatinine 10.3, sodium 139, potassium 4.7, magnesium 1.8, WBC 8.0, hemoglobin 8.9, platelets 123, covid-19 negative Current home cardiac medications include hydralazine 100 mg 3 times a day, labetalol 100 mg twice a day, Lasix 80 mg twice a day, Lipitor 20 mg daily, and Norvasc 5 mg twice a day Patient underwent Lexiscan stress test in 11/2018 revealing fixed inferior wall defect and evidence of global hypokinesis. Findings were suggestive of nonischemic cardiomyopathy. Echocardiogram completed 12/15/2020 revealed ejection fraction 55-60%, mild mitral regurgitation, mild tricuspid regurgitation REVIEW OF SYSTEMS: At the time of my exam: CONSTITUTIONAL: Denies fever or chills. HEENT: Denies blurred vision, vision changes, or eye pain. Denies hemoptysis CARDIOVASCULAR: Denies chest pain, orthopnea, PND or palpitations RESPIRATORY: Reports mild shortness of breath. GASTROINTESTINAL: Denies abdominal pain. Denies nausea or vomiting. HEMATOLOGIC: Denies bleeding disorders. GENITOURINARY: Denies any blood in urine. SKIN: Denies pruitis. Denies rash. PHYSICAL EXAM: VITAL SIGNS: Reviewed. GENERAL: Well-developed in no acute distress. HEENT: Head is normocephalic. Pupils are equal, round. Sclerae anicteric. Mucous membranes of the mouth are moist. Neck supple. No JVD LUNGS: Respirations even and unlabored. Lungs with decreased air exchange bilaterally. Crackles in the bases. Frequent nonproductive cough noted. HEART: Regular rate and rhythm. S1 and S2 heard. Systolic ejection murmur noted. ABDOMEN: Soft. Nondistended. Nontender. EXTREMITIES: Normal range of motion. No clubbing or cyanosis. Peripheral pulses intact. No lower extremity edema NEUROLOGIC: Awake and alert. Oriented x 3. ASSESSMENT: Chest tightness episode, atypical, rule out acute coronary syndrome, EKG without any acute ischemia noted Hypertensive urgency Bilateral infiltrates noted on chest xray End-stage renal disease on hemodialysis, Missed dialysis on 02/20/22 Abnormal troponin, trend not consistent with acute coronary syndrome likely secondary to chronic kidney disease Hypertension Hyperlipidemia COPD CVA Paroxysmal atrial fibrillation, not on anticoagulation secondary to GI bleed Seizure disorder History of left lung empyema with left-sided VATS procedure and decortication Nicotine dependence, patient smokes 1 pack per day PLAN: Obtain 2D echocardiogram Nephrology on consult for dialysis Monitor BP, if no improvement will start clonidine Continue amlodipine, statin, Lasix, hydralazine and labetalol Patient will likely need Lexiscan stress test inpatient vs oupatient to rule ischemia, no stress test at this time. Further recommendations pending patient course Nurse practitioner note has been reviewed by physician. Signing provider agrees with the documented findings, assessment, and plan of care. 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 eye injection with steroid on 04/04 for eye "stroke" Past Anesthesia/Blood Transfusion Reactions: No Reported Reaction Additional Past Anesthesia/Blood Transfusion Reaction / Comment(s): Pt has received blood in past without reaction. Past Psychological History: No Psychological Hx Reported Smoking Status: Current every day smoker Past Alcohol Use History: None Reported Past Drug Use History: None Reported - Past Family History Father Family Medical History: Cancer, CVA/TIA Additional Family Medical History / Comment(s): Father had lymphoma. He had a CVA Mother Family Medical History: CVA/TIA Additional Family Medical History / Comment(s): Mother had a CVA. Sister(s) Additional Family Medical History / Comment(s): Patient has 5 sisters one has from an aneurysm in the brain. 2 sisters have history of kidney stones. Patient has one brother that was shot as cause of , he was on the kidney transplant list. Patient has 6 children with no major medical problems. Medications and Allergies Home Medications Medication Instructions Recorded Confirmed Type Sevelamer [Renvela] 800 mg PO ACHS 06/16/19 02/20/22 History Pantoprazole [Protonix] 40 mg PO BID@0700,1700 04/08/20 02/20/22 History hydrALAZINE HCL [Apresoline] 100 mg PO TID@0700,1200,1700 04/08/20 02/20/22 History Atorvastatin [Lipitor] 20 mg PO DAILY@0700 05/30/20 02/20/22 History Gabapentin [Neurontin] 100 mg PO BID@0700,1700 05/30/20 02/20/22 History amLODIPine [Norvasc] 5 mg PO BID@0700,1700 05/30/20 02/20/22 History Calcium Acetate [PhosLo] 667 mg PO TID@0700,1200,1700 12/15/20 02/20/22 History Furosemide [Lasix] 80 mg PO BID@0700,1700 01/03/22 02/20/22 History Labetalol [Trandate] 100 mg PO BID@0700,1700 01/03/22 02/20/22 History Albuterol Nebulized [Ventolin 2.5 mg INHALATION RT-Q8H PRN 02/20/22 02/20/22 History Nebulized] Budesonide [Pulmicort] 0.5 mg INHALATION RT-BID 02/20/22 02/20/22 History levETIRAcetam [Keppra] 1,000 mg PO BID@0700,1700 02/20/22 02/20/22 History Allergies Allergy/AdvReac Type Severity Reaction Status Date / Time hydromorphone [From Dilaudid] AdvReac Hallucinati Verified 02/20/22 13:32 ons morphine AdvReac Hallucinati Verified 02/20/22 13:32 ons tramadol AdvReac Hallucinati Verified 02/20/22 13:32 ons Physical Exam Vitals: Vital Signs Temp Pulse Resp BP Pulse Ox 02/20/22 13:54 78 180/95 02/20/22 13:30 75 16 180/99 97 02/20/22 13:00 78 16 187/108 97 02/20/22 11:50 83 18 183/110 97 02/20/22 11:22 98.2 F 85 20 186/94 99 Intake and Output 02/19/22 02/20/22 02/20/22 22:59 06:59 14:59 Other: Weight 70.307 kg Results 02/20/22 12:03 02/20/22 12:03 Cardiac Enzymes 02/20/22 02/20/22 Range/Units 12:03 12:03 AST 24 (17-59) U/L Troponin I 0.035 H* (0.000-0.034) ng/mL Coagulation 02/20/22 Range/Units 12:03 PT 10.9 (9.0-12.0) sec APTT 25.9 (22.0-30.0) sec CBC 02/20/22 Range/Units 12:03 WBC 8.0 (3.8-10.6) k/uL RBC 2.73 L (4.30-5.90) m/uL Hgb 9.8 L (13.0-17.5) gm/dL Hct 28.8 L (39.0-53.0) % Plt Count 123 L (150-450) k/uL Comprehensive Metabolic Panel 02/20/22 Range/Units 12:03 Sodium 139 (137-145) mmol/L Potassium 4.7 (3.5-5.1) mmol/L Chloride 100 (98-107) mmol/L Carbon Dioxide 28 (22-30) mmol/L BUN 61 H (9-20) mg/dL Creatinine 10.37 H* (0.66-1.25) mg/dL Glucose 97 (74-99) mg/dL Calcium 8.7 (8.4-10.2) mg/dL AST 24 (17-59) U/L ALT 12 (4-49) U/L Alkaline Phosphatase 72 (38-126) U/L Total Protein 6.3 (6.3-8.2) g/dL Albumin 3.5 (3.5-5.0) g/dL Intake and Output 02/19/22 02/20/22 02/20/22 22:59 06:59 14:59 Other: Weight 70.307 kg Patient Weight 02/21/22 06:59 Weight 70.307 kg 02/20/22 12:03 02/20/22 12:03
--- NOTE | 2022-02-21 11:22 | P.NPCON ---
History of Present Illness - Reason for Consult end stage renal disease - History of Present Illness Patient is a 51-year-old male with end-stage renal disease on hemodialysis on a Saturday schedule. Patient states he did not go for his treatment on Saturday as he was having diarrhea. He is admitted to the hospital with complaints of increased weakness and shortness of breath. He also had chest pain yesterday. No fever or chills. Troponin at 0.038. Chest x-ray shows bilateral infiltrates, mostly interstitial edema. No complaints of nausea vomiting abdominal pain or diarrhea Review of Systems As per HPI, other systems negative Past Medical History Past Medical History: Atrial Fibrillation, Blood Disorder, CVA/TIA, Eye Disorder, GI Bleed, Hyperlipidemia, Hypertension, Renal Disease, Seizure Disorder Additional Past Medical History / Comment(s): End-stage renal disease on hemodialysis schedule of // , urolithiasis/nephrolithiasis, acute hypoxic respiratory failure after missed dialysis, paroxysmal Afib, chronic anemia, chronic thrombocytopenia, lower GI bleed, duodenal ulcer, seizures with last seizures 12/2017, L thalamus CVA no residual, pericardial effusion, L lung empyema, spinal stenosis, DDD, chronic cervical and back pain, R eye "lazy", past R ankle and R hand fractures-casted, blood transfusion,uses O2 @2L NC prn History of Any Multi-Drug Resistant Organisms: None Reported Past Surgical History: Bladder Surgery, Orthopedic Surgery Additional Past Surgical History / Comment(s): Hemorrhoidectomy, EGDs, colonoscopies, L sided Vats with decortication, pericardial window, hemodialysis fistula, cystoscopies/lithotripsies, bilateral renal stents-double J catheter. eye injection with steroid on 04/04 for eye "stroke" Past Anesthesia/Blood Transfusion Reactions: No Reported Reaction Additional Past Anesthesia/Blood Transfusion Reaction / Comment(s): Pt has received blood in past without reaction. Past Psychological History: No Psychological Hx Reported Smoking Status: Current every day smoker Past Alcohol Use History: None Reported Past Drug Use History: None Reported - Past Family History Father Family Medical History: Cancer, CVA/TIA Additional Family Medical History / Comment(s): Father had lymphoma. He had a CVA Mother Family Medical History: CVA/TIA Additional Family Medical History / Comment(s): Mother had a CVA. Sister(s) Additional Family Medical History / Comment(s): Patient has 5 sisters one has from an aneurysm in the brain. 2 sisters have history of kidney stones. Patient has one brother that was shot as cause of , he was on the kidney t ransplant list. Patient has 6 children with no major medical problems. Medications and Allergies Home Medications Medication Instructions Recorded Confirmed Type Sevelamer [Renvela] 800 mg PO ACHS 06/16/19 02/20/22 History Pantoprazole [Protonix] 40 mg PO BID@0700,1700 04/08/20 02/20/22 History hydrALAZINE HCL [Apresoline] 100 mg PO TID@0700,1200,1700 04/08/20 02/20/22 History Atorvastatin [Lipitor] 20 mg PO DAILY@0700 05/30/20 02/20/22 History Gabapentin [Neurontin] 100 mg PO BID@0700,1700 05/30/20 02/20/22 History amLODIPine [Norvasc] 5 mg PO BID@0700,1700 05/30/20 02/20/22 History Calcium Acetate [PhosLo] 667 mg PO TID@0700,1200,1700 12/15/20 02/20/22 History Furosemide [Lasix] 80 mg PO BID@0700,1700 01/03/22 02/20/22 History Labetalol [Trandate] 100 mg PO BID@0700,1700 01/03/22 02/20/22 History Albuterol Nebulized [Ventolin 2.5 mg INHALATION RT-Q8H PRN 02/20/22 02/20/22 History Nebulized] Budesonide [Pulmicort] 0.5 mg INHALATION RT-BID 02/20/22 02/20/22 History levETIRAcetam [Keppra] 1,000 mg PO BID@0700,1700 02/20/22 02/20/22 History Allergies Allergy/AdvReac Type Severity Reaction Status Date / Time hydromorphone [From Dilaudid] AdvReac Hallucinati Verified 02/20/22 13:32 ons morphine AdvReac Hallucinati Verified 02/20/22 13:32 ons tramadol AdvReac Hallucinati Verified 04/05/22 13:32 ons Physical Exam Vitals: Vital Signs Temp Pulse Pulse Resp BP BP Pulse Ox 02/21/22 09:30 171/88 02/21/22 09:21 80 02/21/22 09:12 78 02/21/22 08:10 16 02/21/22 07:50 97.9 F 80 17 193/94 95 02/21/22 03:48 98.1 F 76 18 178/95 95 02/21/22 02:00 75 18 02/20/22 23:59 75 18 02/20/22 23:57 98.9 F 75 18 187/91 98 02/20/22 20:00 98.8 F 79 17 179/90 96 02/20/22 18:25 78 18 02/20/22 18:11 98.3 F 77 18 172/84 98 02/20/22 16:00 77 19 167/94 97 02/20/22 15:30 79 16 163/99 96 02/20/22 15:00 78 16 181/106 96 02/20/22 14:30 80 16 176/94 96 02/20/22 13:54 78 180/95 02/20/22 13:30 75 16 180/99 97 02/20/22 13:00 78 16 187/108 97 02/20/22 11:50 83 18 183/110 97 02/20/22 11:22 98.2 F 85 20 186/94 99 Intake and Output 02/20/22 02/21/22 02/21/22 22:59 06:59 14:59 Intake Total 10 480 Output Total 0 Balance 0 10 480 Intake: IV 10 0.9 10 Oral 480 Output: Urine 0 Other: Voiding Method Toilet Toilet Urinal Urinal # Voids 0 0 Weight 70.307 kg 66.4 kg Patient is awake, comfortable, not in any acute distress Mildly short of breath. Examination of the heart S1 and S2 Examination lungs bilateral breath sounds are heard Abdomen is soft nontender Exam in lower extremities shows no significant edema DOMESTIC MAID exam grossly intact Results - Lab Results Most recent lab results Calcium 8.7 mg/dL (8.4-10.2) 02/20/22 12:03 Magnesium 1.8 mg/dL (1.6-2.3) 02/20/22 12:03 02/20/22 12:03 02/20/22 12:03 Assessment and Plan Assessment: 1. End-stage renal disease on hemodialysis on a Saturday schedule 2. Volume overload 3. Chest pain, troponin 0.035. 4. CK D mineral bone disorder him a currently on Renvela 5. History of seizures, maintained on Keppra 6. Hypertension, blood pressure is elevated. Partly volume sensitive. Expect improvement post dialysis. Plan: Hemodialysis today with increase ultrafiltration to about 3-4 L as tolerated. Start Aranesp Continue with Renvela.
[2022-02-21] MEDS ORDERED: DARBEPOETIN ALFA 40 MCG/0.4 ML SYRINGE SQ SCH (12:00)
--- NOTE | 2022-02-21 12:01 | ECHOF ---
Referral Reason:elevated troponin, uncontrolled htn MEASUREMENTS -------- HEIGHT: 165.1 cm WEIGHT: 66.2 kg BP: 193/94 RVIDd: 3.4 cm (< 3.3) IVSd: 1.5 cm (0.6 - 1.1) LVIDd: 5.2 cm (3.9 - 5.3) LVPWd: 1.6 cm (0.6 - 1.1) IVSs: 2.4 cm LVIDs: 3.6 cm LVPWs: 1.7 cm LA Diam: 4.2 cm (2.7 - 3.8) LAESV Index (A-L): 44.04 ml/m Ao Diam: 3.1 cm (2.0 - 3.7) AV Cusp: 2.4 cm (1.5 - 2.6) MV EXCURSION: 12.495 mm (> 18.000) MV EF SLOPE: 43 mm/s (70 - 150) EPSS: 1.5 cm MV E To: 1.24 m/s MV DecT: 211 ms MV A To: 0.93 m/s MV E/A Ratio: 1.34 AV maxP.85 mmHg AV meanP.48 mmHg RAP: 5.00 mmHg RVSP: 44.27 mmHg FINDINGS -------- Sinus rhythm. This was a technically adequate study. The left ventricular size is normal. There is moderate concentric left ventricular hypertrophy. O verall left ventricular systolic function is normal with, an EF between 55 - 60 %. Pseudonormal LV filling pattern, consistent with elevated LA pressure. The right ventricle is mildly enlarged. LA is severely dilated >40 ml/m2 The right atrial size is normal. Interatrial and interventricular septum intact. The aortic valve is trileaflet, and appears structurally normal. No aortic stenosis or regurgitation. The mitral valve leaflets are mildly thickened. Mild mitral regurgitation is present. The tricuspid valve appears structurally normal. Mild tricuspid regurgitation present. There is m ild pulmonary hypertension. The right ventricular systolic pressure, as measured by Doppler, is 44. 27mmHg. There is no pulmonic regurgitation present. The aortic root size is normal. Normal inferior vena cava with normal inspiratory collapse consistent with estimated right atrial pre ssure of 5 mmHg. There is no pericardial effusion. CONCLUSIONS -------- 1. There is moderate concentric left ventricular hypertrophy. 2. Overall left ventricular systolic function is normal with, an EF between 55 - 60 %. 3. Pseudonormal LV filling pattern, consistent with elevate LA pressure. 4. The right ventricle is mildly enlarged. 5. LA is severely dilated >40 ml/m2 6. The aortic valve is trileaflet, and appears structurally normal. No aortic stenosis or regurgitati on. 7. Mild mitral regurgitation is present. 8. Mild tricuspid regurgitation present. 9. There is mild pulmonary hypertension. 10. There is no pericardial effusion. DRAW TENDER: Jade Pollard RDCS
--- NOTE | 2022-02-21 12:15 | P.CNPUL ---
History of Present Illness Consult date: 02/21/22 Requesting physician: Kg Bruno Reason for consult: dyspnea, chest pain History of present illness: 51-year-old male patient with past medical history of end-stage renal disease on hemodialysis for the past 13 years, on Saturday schedule, hypertension, hyperlipidemia, seizure disorder, previous history of CVA, paroxysmal atrial fibrillation, currently in sinus mechanism, not on any chronic anticoagulation, past medical history of GI bleeding, history of chronic CHF with mildly reduced systolic function, severe pulmonary hypertension, chronic and ongoing history of smoking, COPD home oxygen at 3 L, anemia of chronic kidney disease, presented to the emergency department on 02/20/2022 with a complaint left-sided chest pain and shortness of breath. His chest discomfort lasted for about 15 minutes. It resolved on its own, however patient was concerned and presented to the emergency department for evaluation in view of his past history of a myocardial infarction. Patient had been feeling congested in his chest, coughing, and having sinus congestion. Denied any fever or chills, he states the last couple of days he thought some blood-tinged sputum. He has a history of COVID-19 pneumonia in the November 2021 and states he required mechanical ventilator support for 2 days while hospitalized at the [facility]. At that time he was not vaccinated. However he was able to wean and extubate successfully and has done well since. 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 There was a small left pleural effusion. The patient does not seem to be fluid overloaded. He remains on 3 L of oxygen. Breathing comfortably, she did miss his Saturday dialysis, so his last dialysis treatment was last Saturday, he does produce urine on his own as well. Patient follows with Dr. Corbett from nephrology. His EKG in the ER showed sinus rhythm with possible left atrial enlargement, possible left ventricular hypertrophy, and nonspecific ST and T-wave abnormality. His lab evaluation showed a normal white count of 8.0, hemoglobin is 9.8, platelet count of 123, INR is 1.0, electrolytes are within normal limits, BUN is 61 and creatinine is 10.37. Patient had a troponin leak of 0.039, 0.038. His proBNP was 134,000. He was seen In consultation by nephrology and he is awaiting hemodialysis treatment today and tomorrow. Review of Systems All systems: negative Constitutional: Denies chills, Denies fever Eyes: denies blurred vision, denies pain Ears, nose, mouth and throat: Denies headache, Denies sore throat Cardiovascular: Reports chest pain, Reports dyspnea on exertion, Reports shortness of breath Respiratory: Denies cough Gastrointestinal: Denies abdominal pain, Denies diarrhea, Denies nausea, Denies vomiting Musculoskeletal: Denies myalgias Integumentary: Denies pruritus, Denies rash Neurological: Denies numbness, Denies weakness Psychiatric: Denies anxiety, Denies depression Endocrine: Denies fatigue, Denies weight change Past Medical History Past Medical History: Atrial Fibrillation, Blood Disorder, CVA/TIA, Eye Disorder, GI Bleed, Hyperlipidemia, Hypertension, Renal Disease, Seizure Disorder Additional Past Medical History / Comment(s): End-stage renal disease on hemodialysis schedule of M/W/F , urolithiasis/nephrolithiasis, acute hypoxic respiratory failure after missed dialysis, paroxysmal Afib, chronic anemia, chronic thrombocytopenia, lower GI bleed, duodenal ulcer, seizures with last seizures 12/2017, L thalamus CVA no residual, pericardial effusion, L lung empyema, spinal stenosis, DDD, chronic cervical and back pain, R eye "lazy", past R ankle and R hand fractures-casted, blood transfusion,uses O2 @2L NC prn History of Any Multi-Drug Resistant Organisms: None Reported Past Surgical History: Bladder Surgery, Orthopedic Surgery Additional Past Surgical History / Comment(s): Hemorrhoidectomy, EGDs, colonoscopies, L sided Vats with decortication, pericardial window, hemodialysis fistula, cystoscopies/lithotripsies, bilateral renal stents-double J catheter. eye injection with steroid on 04/04 for eye "stroke" Past Anesthesia/Blood Transfusion Reactions: No Reported Reaction Additional Past Anesthesia/Blood Transfusion Reaction / Comment(s): Pt has received blood in past without reaction. Past Psychological History: No Psychological Hx Reported Smoking Status: Current every day smoker Past Alcohol Use History: None Reported Past Drug Use History: None Reported - Past Family History Father Family Medical History: Cancer, CVA/TIA Additional Family Medical History / Comment(s): Father had lymphoma. He had a CVA Mother Family Medical History: CVA/TIA Additional Family Medical History / Comment(s): Mother had a CVA. Sister(s) Additional Family Medical History / Comment(s): Patient has 5 sisters one has from an aneurysm in the brain. 2 sisters have history of kidney stones. Patient has one brother that was shot as cause of , he was on the kidney tr ansplant list. Patient has 6 children with no major medical problems. Medications and Allergies Home Medications Medication Instructions Recorded Confirmed Type Sevelamer [Renvela] 800 mg PO ACHS 06/16/19 02/20/22 History Pantoprazole [Protonix] 40 mg PO BID@0700,1700 04/08/20 02/20/22 History hydrALAZINE HCL [Apresoline] 100 mg PO TID@0700,1200,1700 04/08/20 02/20/22 History Atorvastatin [Lipitor] 20 mg PO DAILY@0700 05/30/20 02/20/22 History Gabapentin [Neurontin] 100 mg PO BID@0700,1700 05/30/20 02/20/22 History amLODIPine [Norvasc] 5 mg PO BID@0700,1700 05/30/20 02/20/22 History Calcium Acetate [PhosLo] 667 mg PO TID@0700,1200,1700 12/15/20 02/20/22 History Furosemide [Lasix] 80 mg PO BID@0700,1700 01/03/22 02/20/22 History Labetalol [Trandate] 100 mg PO BID@0700,1700 01/03/22 02/20/22 History Albuterol Nebulized [Ventolin 2.5 mg INHALATION RT-Q8H PRN 02/20/22 02/20/22 History Nebulized] Budesonide [Pulmicort] 0.5 mg INHALATION RT-BID 02/20/22 02/20/22 History levETIRAcetam [Keppra] 1,000 mg PO BID@0700,1700 02/20/22 02/20/22 History Allergies Allergy/AdvReac Type Severity Reaction Status Date / Time hydromorphone [From Dilaudid] AdvReac Hallucinati Verified 02/20/22 13:32 ons morphine AdvReac Hallucinati Verified 02/20/22 13:32 ons tramadol AdvReac Hallucinati Verified 02/20/22 13:32 ons Physical Exam Vitals: Vital Signs Temp Pulse Pulse Resp BP BP Pulse Ox 02/21/22 09:30 171/88 02/21/22 09:21 80 02/21/22 09:12 78 02/21/22 07:50 97.9 F 80 17 193/94 95 02/21/22 03:48 98.1 F 76 18 178/95 95 02/21/22 02:00 75 18 02/20/22 23:59 75 18 02/20/22 23:57 98.9 F 75 18 187/91 98 02/20/22 20:00 98.8 F 79 17 179/90 96 02/20/22 18:25 78 18 02/20/22 18:11 98.3 F 77 18 172/84 98 02/20/22 16:00 77 19 167/94 97 02/20/22 15:30 79 16 163/99 96 02/20/22 15:00 78 16 181/106 96 02/20/22 14:30 80 16 176/94 96 02/20/22 13:54 78 180/95 02/20/22 13:30 75 16 180/99 97 02/20/22 13:00 78 16 187/108 97 02/20/22 11:50 83 18 183/110 97 02/20/22 11:22 98.2 F 85 20 186/94 99 Intake and Output 02/20/22 02/21/22 02/21/22 22:59 06:59 14:59 Intake Total 10 480 Output Total 0 Balance 0 10 480 Intake: IV 10 0.9 10 Oral 480 Output: Urine 0 Other: Voiding Method Toilet Toilet Urinal Urinal # Voids 0 0 Weight 70.307 kg 66.4 kg GENERAL EXAM: Alert, pleasant, 51-year-old white male, 3 L of oxygen, resting comfortably in bed comfortable in no apparent distress. HEAD: Normocephalic/atraumatic. EYES: Normal reaction of pupils, equal size. Conjunctiva pink, sclera white. NOSE: Clear with pink turbinates. THROAT: No erythema or exudates. NECK: No masses, no JVD, no thyroid enlargement, no adenopathy. CHEST: No chest wall deformity. Symmetrical expansion. LUNGS: Diminished air entry with with fine crackles over left base CVS: Regular rate and rhythm, normal S1 and S2, no gallops, no murmurs, no rubs right arm AV fistula present ABDOMEN: Soft, nontender. No hepatosplenomegaly, normal bowel sounds, no guarding or rigidity. EXTREMITIES: No clubbing, no edema, no cyanosis, 2+ pulses and upper and lower extremities. MUSCULOSKELETAL: Muscle strength and tone normal. SPINE: No scoliosis or deformity SKIN: No rashes CENTRAL NERVOUS SYSTEM: Alert and oriented -3. No focal deficits, tone is normal in all 4 extremities. PSYCHIATRIC: Alert and oriented -3. Appropriate affect. Intact judgment and insight. Results - Laboratory Findings CBC and BMP: 02/20/22 12:03 02/20/22 12:03 PT/INR, D-dimer PT 10.9 sec (9.0-12.0) 02/20/22 12:03 INR 1.0 (<1.2) 02/20/22 12:03 Abnormal lab findings: Abnormal Labs 02/20/22 02/20/22 02/20/22 12:03 12:03 12:03 RBC 2.73 L Hgb 9.8 L Hct 28.8 L MCV 105.5 H MCH 35.8 H RDW 17.4 H Plt Count 123 L Macrocytosis Marked A BUN 61 H Creatinine 10.37 H* Troponin I 0.035 H* 02/20/22 02/20/22 02/20/22 14:26 19:40 22:15 RBC Hgb Hct MCV MCH RDW Plt Count Macrocytosis BUN Creatinine Troponin I 0.037 H* 0.035 H* 0.038 H* - Diagnostic Findings Chest x-ray: report reviewed, image reviewed Additional studies: EKG reviewed Assessment and Plan Plan: Assessment: #1. Acute pulmonary edema, fluid volume overload, related to missed hemodialysis treatment, doubt pneumonia #2. End-stage renal disease on hemodialysis on Saturday, with missed hemodialysis treatment on Saturday02/16/2022 #3. Acute exacerbation of CHF with diastolic dysfunction #4. Paroxysmal A. fib, currently in sinus rhythm, not on any chronic anticoagulation #5. History of CVA with no residual #6. Degenerative disc disease #7. Chronic and ongoing history of smoking #8. Anemia of chronic disease #9. History of COVID-19 pneumonia in November 2021 and patient required ventilator support, recovered #10. Chronic COPD on home oxygen at 3 L #11. Hyperlipidemia #12. History of previous GI bleeding with previous hemorrhoidectomies #13. History of pericardial effusion requiring pericardial window in January 2018 Plan: Patient is breathing fairly comfortably, Remains on 3 L of oxygen Appears to be no acute distress Continue diuretics and hemodialysis per nephrology We'll add Pulmicort and DuoNeb Continue monitoring labs including electrolytes and renal profile Cardiology recommendations We'll continue to follow I have personally seen and examined the patient, performed the documentation and the assessment and plan as written. Number of minutes spent on the visit: [15] This is an evaluation was done along with the nurse practitioner. I was involved in this evaluation and contributing in excess of 80% of the work performed. In summary, the patient is having shortness of breath. The patient is currently on 3 L of oxygen by nasal cannula. He is in pulmonary edema. She will benefit from hemodialysis. We'll continue bronchodilators. With supplemented oxygen. We'll monitor his progress and electrolytes. This evaluation was on a more than 30 minutes. Time with Patient: Greater than 30
[2022-02-21] MEDS: ALBUTEROL NEBULIZED 2.5 MG/3 ML INHALATION PRN (20:10)
[2022-02-21] MEDS: hydrALAZINE HCL 50 MG TAB PO PRN (23:20)
[2022-02-22] MEDS: FUROSEMIDE 80 MG TAB PO SCH (06:40)
[2022-02-22] MEDS: hydrALAZINE HCL 50 MG TAB PO SCH ×2 (06:40→12:46)
[2022-02-22] MEDS: LABETALOL 100 MG TAB PO SCH (06:40)
[2022-02-22] MEDS: SEVELAMER 800 MG TAB PO SCH ×2 (06:40→12:46)
[2022-02-22] MEDS: amLODIPine 5 MG TAB PO SCH (06:40)
[2022-02-22] MEDS: ATORVASTATIN 20 MG TAB PO SCH (06:40)
[2022-02-22] MEDS: PANTOPRAZOLE 40 MG TABLET PO SCH (06:40)
[2022-02-22] MEDS: CALCIUM ACETATE 667 MG TAB PO SCH ×2 (06:40→12:46)
[2022-02-22] MEDS: GABAPENTIN 100 MG CAP PO SCH (06:40)
[2022-02-22] MEDS: levETIRAcetam 500 MG TAB PO SCH (06:41)
[2022-02-22 07:57] LABS: Calcium 8.5 mg/dL (8.4-10.2); Potassium 4.2 mmol/L (3.5-5.1)
[2022-02-22] MEDS: BUDESONIDE 0.5 MG/2 ML NEBU INHALATION SCH (08:10)
[2022-02-22] MEDS: ALBUTEROL NEBULIZED 2.5 MG/3 ML INHALATION PRN (08:11)
[2022-02-22 08:19] LABS: Anisocytosis Slight; Basophils % (A) 1 %; Eosinophils # (A) 0.1 k/uL (0-0.7); Eosinophils % (A) 1 %; HCT 28.8 % (39.0-53.0); HGB 9.4 gm/dL (13.0-17.5); Hypochromasia Slight; Lymphocytes # (A) 0.9 k/uL (1.0-4.8); Lymphocytes % (A) 15 %; MCHC 32.6 g/dL (31.0-37.0); MCV 107.2 fL (80.0-100.0); Macrocytosis Marked; Mean Platelet Volume 8.5; Monocytes # (A) 0.3 k/uL (0-1.0); Monocytes % (A) 5 %; Neutrophils # (A) 4.7 k/uL (1.3-7.7); Neutrophils % (A) 77 %; Platelet Count 106 k/uL (150-450); RBC 2.68 m/uL (4.30-5.90); RDW 17.6 % (11.5-15.5); WBC 6.2 k/uL (3.8-10.6)
--- NOTE | 2022-02-22 10:46 | XR ---
EXAMINATION TYPE: XR chest 1V portable DATE OF EXAM: 02/22/2022 Comparison: 02/20/2022 Clinical History: 51-year-old male shortness of breath, pulmonary edema Findings: Heart mildly enlarged. Patchy interstitial changes especially mid and lower lungs persist but show so me improvement from prior exam. There is a linear edge projecting at the periphery of the right mid a nd lower lung. Trace blunting of the costophrenic angles, likely trace effusions. Impression: 1. Linear edge projecting at the periphery of the right mid and lower lung. Suspect a prominent skin fold. Recommend short interval follow-up exam to exclude a pneumothorax. 2. Some interval improvement but with residual interstitial pulmonary edema.
--- NOTE | 2022-02-22 11:11 | P.PN ---
Subjective Progress Note Date: 02/22/22 Principal diagnosis: Shortness of breath 51-year-old male patient with past medical history of end-stage renal disease on hemodialysis for the past 13 years, on Saturday schedule, hypertension, hyperlipidemia, seizure disorder, previous history of CVA, paroxysmal atrial fibrillation, currently in sinus mechanism, not on any chronic anticoagulation, past medical history of GI bleeding, history of chronic CHF with mildly reduced systolic function, severe pulmonary hypertension, chronic and ongoing history of smoking, COPD home oxygen at 3 L, anemia of chronic kidney disease, presented to the emergency department on 02/20/2022 with a complaint left-sided chest pain and shortness of breath. His chest discomfort lasted for about 15 minutes. It resolved on its own, however patient was concerned and presented to the emergency department for evaluation in view of his past history of a myocardial infarction. Patient had been feeling congested in his chest, coughing, and having sinus congestion. Denied any fever or chills, he states the last couple of days he thought some blood-tinged sputum. He has a history of COVID-19 pneumonia in the November 2021 and states he required mechanical ventilator support for 2 days while hospitalized at the [facility]. At that time he was not vaccinated. However he was able to wean and extubate successfully and has done well since. 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 There was a small left pleural effusion. The patient does not seem to be fluid overloaded. He remains on 3 L of oxygen. Breathing comfortably, she did miss his Saturday dialysis, so his last dialysis treatment was last Saturday, he does produce urine on his own as well. Patient follows with Dr. Corbett from nephrology. His EKG in the ER showed sinus rhythm with possible left atrial enlargement, possible left ventricular hypertrophy, and nonspecific ST and T-wave abnormality. His lab evaluation showed a normal white count of 8.0, hemoglobin is 9.8, platelet count of 123, INR is 1.0, electrolytes are within normal limits, BUN is 61 and creatinine is 10.37. Patient had a troponin leak of 0.039, 0.038. His proBNP w as 134,000. He was seen In consultation by nephrology and he is awaiting hemodialysis treatment today and tomorrow. On 02/22/2022 patient seen in follow-up on selective care unit, she is breathing comfortable, his up in the chair, yesterday he was dialyzed and 3.8 L of fluid was removed, his lung sounds are diminished, with a few fine rales at the left base, no rhonchi or wheezing. No complaint of chest pain, he states he does cough up some phlegm with breathing treatments. No hemoptysis, mentation is appropriate, he is awake and alert oriented 3. Chest x-ray today shows patchy interstitial changes in the mid and lower lungs with some improvement from prior exam. There is a linear edge projecting at the periphery of the right mid and lower lung with a suspicion of a prominent skinfold area follow-up chest x-ray will be obtained at 1400 this afternoon. Clinically patient is breathing very comfortably, equal air entry heard bilaterally. Today's labs have been reviewed, white blood cell count 6.2, hemoglobin is 9.4, sodium is 138, potassium is 4.2, chloride is 100, CO2 is 32, BUN is 38 creatinine 7.35. Patient has been afebrile, blood culture has shown no growth. Patient remains on oral dose Lasix 80 mg twice a day. He does avoid per urinal. No nausea vomiting or diarrhea, he is tolerating oral intake Objective - Vital Signs Vital signs: Vital Signs Temp 98.2 F 02/22/22 08:00 Pulse 75 02/22/22 08:25 Resp 19 02/22/22 08:00 BP 158/81 02/22/22 08:00 Pulse Ox 98 02/22/22 08:00 Intake & Output 02/21/22 02/22/22 02/22/22 18:59 06:59 18:59 Intake Total 1016 Output Total 3500 Balance -2484 Weight 63.7 kg Intake: Oral 716 Hemodialysis 300 Output: Urine 0 Hemodialysis 3500 Other: Voiding Method Toilet Toilet Urinal Urinal # Voids 1 - Exam GENERAL EXAM: Alert, pleasant, 51-year-old white male, 3 L of oxygen, resting comfortably in bed comfortable in no apparent distress. HEAD: Normocephalic/atraumatic. EYES: Normal reaction of pupils, equal size. Conjunctiva pink, sclera white. NOSE: Clear with pink turbinates. THROAT: No erythema or exudates. NECK: No masses, no JVD, no thyroid enlargement, no adenopathy. CHEST: No chest wall deformity. Symmetrical expansion. LUNGS: Diminished air entry with with fine crackles over left base CVS: Regular rate and rhythm, normal S1 and S2, no gallops, no murmurs, no rubs right arm AV fistula present ABDOMEN: Soft, nontender. No hepatosplenomegaly, normal bowel sounds, no guarding or rigidity. EXTREMITIES: No clubbing, no edema, no cyanosis, 2+ pulses and upper and lower extremities. MUSCULOSKELETAL: Muscle strength and tone normal. SPINE: No scoliosis or deformity SKIN: No rashes CENTRAL NERVOUS SYSTEM: Alert and oriented -3. No focal deficits, tone is normal in all 4 extremities. PSYCHIATRIC: Alert and oriented -3. Appropriate affect. Intact judgment and insight. - Labs CBC & Chem 7: 02/22/22 06:59 02/22/22 06:59 Labs: Abnormal Lab Results - Last 24 Hours (Table) 02/22/22 02/22/22 Range/Units 06:59 06:59 RBC 2.68 L (4.30-5.90) m/uL Hgb 9.4 L (13.0-17.5) gm/dL Hct 28.8 L (39.0-53.0) % MCV 107.2 H (80.0-100.0) fL RDW 17.6 H (11.5-15.5) % Plt Count 106 L (150-450) k/uL Lymphocytes # 0.9 L (1.0-4.8) k/uL Macrocytosis Marked A Carbon Dioxide 32 H (22-30) mmol/L BUN 38 H (9-20) mg/dL Creatinine 7.35 H* (0.66-1.25) mg/dL Microbiology - Last 24 Hours (Table) 02/20/22 19:40 Blood Culture - Preliminary Blood No Growth after 24 hours Assessment and Plan Plan: Assessment: #1. Acute pulmonary edema, fluid volume overload, related to missed hemodialysis treatment, doubt pneumonia, improving #2. End-stage renal disease on hemodialysis on Saturday, with missed hemodialysis treatment on Saturday02/16/2022 #3. Acute exacerbation of CHF with diastolic dysfunction #4. Paroxysmal A. fib, currently in sinus rhythm, not on any chronic anticoagulation #5. History of CVA with no residual #6. Degenerative disc disease #7. Chronic and ongoing history of smoking #8. Anemia of chronic disease #9. History of COVID-19 pneumonia in November 2021 and patient required ventilator support, recovered #10. Chronic COPD on home oxygen at 3 L #11. Hyperlipidemia #12. History of previous GI bleeding with previous hemorrhoidectomies #13. History of pericardial effusion requiring pericardial window in January 2018 Plan: Today's chest x-ray has been reviewed showing some improvement in the appearance of interstitial edema Follow-up chest x-ray at 1400 in regards to a linear edge projecting at the periphery of the right mid and lower lung, to rule out possibility of pneumothorax, which is unlikely Hemodialysis and diuretics per nephrology Today's labs have been reviewed Clinically patient is stable, breathing much easier, Vital signs are stable This is a split joint evaluation that was done along with the nurse practitioner on the case.. I was involved in more than 80% of this evaluation, decision making and treatment. This evaluation was done in 10 minutes. The patient can be discharged home today as the patient has been adequately dialyzed and his associates optimize. Time with Patient: Less than 30
--- NOTE | 2022-02-22 11:50 | P.DS ---
Providers Date of admission: 02/20/22 13:27 Expected date of discharge: 02/22/22 Attending physician: Kg Bruno Consults: 02/20/22 13:27 Consult Physician Urgent Consulting Provider: Barbara Doss Consult Reason/Comments: Bilateral pulmonary infiltrates Do you want consulting provider notified?: Yes Consult Physician Urgent Consulting Provider: [facility] Consult Reason/Comments: Chest pain, hypertensive urgency Do you want consulting provider notified?: Yes Consult Physician Urgent Consulting Provider: Maricarmen Figueroa Consult Reason/Comments: Missed dialysis Do you want consulting provider notified?: Yes Primary care physician: Jaylen Holguin [facility] Course: History of Present Illness This is a 51-year-old male patient of Dr. Holguin with past medical history of end-stage renal disease secondary to kidney stones on hemodialysis for 10 years 3 times weekly, Saturday, hypertension, hypertensive cardiovascular disease, seizure disorder, left thalamus stroke, previous admission for acute hypoxic respiratory failure secondary to fluid overload from missing dialysis treatments requiring mechanical ventilation, history of empyema status post VATS and pericardial window, history of chronic thrombocytopenia, tobacco use and dependence-continues to be an active smoker, paroxysmal atrial fibrillation in February 2018, history of GI bleed secondary to ulcers in the esophagus stomach and duodenum. Patient developed shortness of breath, no chest pain, no fever or chills. He states he has cough with blood in his sputum. He states the hemoptysis comes and goes is been going on for the past 3-4 months. He last saw Dr. Fraire in March.. Patient's had increased shortness of breath and did miss dialysis treatment. Patient came into [facility] emergency center today after missing hemodialysis yesterday with complaint of mid thoracic chest pain with anginal component radiating toward the left side associated with mild nausea increased cough worsening shortness of breath. Was seen and evaluated his troponin is mildly elevated at 0.035 with BNP of 1 34,000. Patient is in sign ificant fluid overload with worsening angina despite specially with elevated troponin. Patient be admitted to the hospital seen cardiology and nephrology hemodialysis will be done on urgent basis and his full workup cardio vascular- wright and be done 02/21: Patient is seen today on the cardiac stepdown unit. He is scheduled for hemodialysis today. They're also consult in place for cardiology regarding chest pain and pulmonary medicine for bilateral pulmonary infiltrates. Echocardiogram has been ordered. Blood pressure readings remained high overnight currently at 171/88 and patient has been resumed on his home blood pressure medications. Patient is denying any chest pain. Troponins 0.037, 0.033, 0.035 and 0.038. 02/22: She denies any new complaints. No chest pain or shortness of breath. He underwent hemodialysis yesterday was no plan for repeat today. He is on his normal schedule. He is followed by alexis her medicine and pneumonia has essentially been ruled out. Cardiology has evaluated the patient this morning and is cleared for discharge, no plan for stress test on this admission. Patient will be discharged home today in stable condition. DISCHARGE DIAGNOSES 1. Acute anginal chest pain. 2 worsening fluid overload: From missing dialysis and diastolic congestive heart failure 3. End-stage renal disease on hemodialysis Saturday. 4. History of anemia of chronic disease with baseline hemoglobin of 8. 5. acute on chronic diastolic heart failure. 6. Hypertension, hypertensive cardiovascular disease uncontrolled secondary to noncompliance. 7. History of seizure disorder. 8. History of empyema status post VATS and pericardial window. 9. History of left thalamus stroke. 10. Tobacco use and dependence. 11. Chronic thrombocytopenia. DISCHARGE PLAN Home Greater than 35 minutes was utilized and coordinating patient's discharge. Impression and plan of care have been directed as dictated by the signing physician. Doretha Brumfield nurse practitioner acting as scribe for signing physician. Patient Condition at Discharge: Good Plan - Discharge Summary Discharge Rx Participant: No New Discharge Prescriptions: Continue Sevelamer [Renvela] 800 mg PO ACHS hydrALAZINE HCL [Apresoline] 100 mg PO TID@0700,1200,1700 Pantoprazole [Protonix] 40 mg PO BID@0700,1700 Gabapentin [Neurontin] 100 mg PO BID@0700,1700 Atorvastatin [Lipitor] 20 mg PO DAILY@0700 amLODIPine [Norvasc] 5 mg PO BID@0700,1700 Calcium Acetate [PhosLo] 667 mg PO TID@0700,1200,1700 Labetalol [Trandate] 100 mg PO BID@0700,1700 Furosemide [Lasix] 80 mg PO BID@0700,1700 Albuterol Nebulized [Ventolin Nebulized] 2.5 mg INHALATION RT-Q8H PRN PRN Reason: Shortness Of Breath Budesonide [Pulmicort] 0.5 mg INHALATION RT-BID levETIRAcetam [Keppra] 1,000 mg PO BID@0700,1700 Discharge Medication List Sevelamer [Renvela] 800 mg PO ACHS 06/16/19 [History] Pantoprazole [Protonix] 40 mg PO BID@0700,1700 04/08/20 [History] hydrALAZINE HCL [Apresoline] 100 mg PO TID@0700,1200,1700 04/08/20 [History] Atorvastatin [Lipitor] 20 mg PO DAILY@0700 05/30/20 [History] Gabapentin [Neurontin] 100 mg PO BID@0700,1700 05/30/20 [History] amLODIPine [Norvasc] 5 mg PO BID@0700,1700 05/30/20 [History] Calcium Acetate [PhosLo] 667 mg PO TID@0700,1200,1700 12/15/20 [History] Furosemide [Lasix] 80 mg PO BID@0700,1700 01/03/22 [History] Labetalol [Trandate] 100 mg PO BID@0700,1700 01/03/22 [History] Albuterol Nebulized [Ventolin Nebulized] 2.5 mg INHALATION RT-Q8H PRN 02/20/22 [History] Budesonide [Pulmicort] 0.5 mg INHALATION RT-BID 02/20/22 [History] levETIRAcetam [Keppra] 1,000 mg PO BID@0700,1700 02/20/22 [History] Follow up Appointment(s)/Referral(s): Alexi Mayorga MD [STAFF PHYSICIAN] - 1 Week Jaylen Holguin MD [Primary Care Provider] - 1 Week Discharge Disposition: HOME SELF-CARE
--- NOTE | 2022-02-22 13:15 | P.PN ---
Subjective This is a 51-year-old male with a past medical history significant for hypertension and hyperlipidemia, end-stage renal disease on hemodialysis, COPD, CVA states in 2019, paroxysmal atrial fibrillation not on anticoagulation secondary to GI bleed, seizure disorder, left lung empyema with left-sided VATS procedure and decortication, and nicotine dependence. Patient follows in the office with Dr. Mayorga, last followed up in 2019. We have been asked to see the patient in consultation for chest pain and hypertensive urgency. Patient presents to the emergency department with complaints of chest discomfort episode. Yesterday patient with an episode of chest tightness while sitting down. It was after be blew his nose. Midsternal. Non-radiating, non-exertional. States it lasted for about an hour. Resolved on its own. No specific aggravating or alleviating factors. No associated shortness of breath, palpitations, diaphoresis, nausea, vomiting, lightheadedness, dizziness, cough, fever, chills. Denies syncope or near syncope. He states he did miss dialysis and came to the emergency department for further evaluation. Denies history of NH, CAD, Diabetes. Current every day smoker smokes 1/2-1PPD. DIAGNOSTICS: EKG reveals sinus rhythm, heart rate 83, LVH, T wave inversion in lead aVL, non- specific ST-T wave abnormalities, no acute ischemia noted. Chest xray bilateral lung infiltrates noted. Laboratory data: Troponin 0.035-->0.037-->0.033-->0.035-->0.038, proBNP 355114, BUN 61, serum creatinine 10.3, sodium 139, potassium 4.7, magnesium 1.8, WBC 8.0, hemoglobin 8.9, platelets 123, covid-19 negative Current home cardiac medications include hydralazine 100 mg 3 times a day, labetalol 100 mg twice a day, Lasix 80 mg twice a day, Lipitor 20 mg daily, and Norvasc 5 mg twice a day Patient underwent Lexiscan stress test in 11/2018 revealing fixed inferior wall defect and evidence of global hypokinesis. Findings were suggestive of nonischemic cardiomyopathy. 02/23/2022 Patient seen and examined at bedside, no acute distress. He denies any further chest pain. Denies any shortness of breath. He underwent hemodialysis 3.5 L fluid removed. Blood pressure has improved. Echocardiogram revealed an EF 5560 percent, LA severely dilated, mild MR, mild TR, mild pulmonary hypertension. PHYSICAL EXAM: VITAL SIGNS: Reviewed. GENERAL: Well-developed in no acute distress. HEENT: Neck supple. No JVD LUNGS: Respirations even and unlabored. Lungs with decreased air exchange bilaterally. HEART: Regular rate and rhythm. S1 and S2 heard. Systolic ejection murmur noted. ABDOMEN: Soft. Nondistended. Nontender. EXTREMITIES: Normal range of motion. No clubbing or cyanosis. Peripheral pulses intact. No lower extremity edema NEUROLOGIC: Awake and alert. Oriented x 3. ASSESSMENT: Chest tightness episode, atypical, EKG without any acute ischemia noted, Echo revealed EF 55-60% Hypertensive urgency Bilateral infiltrates noted on chest xray End-stage renal disease on hemodialysis, Missed dialysis on 02/20/22 Abnormal troponin, trend not consistent with acute coronary syndrome likely secondary to chronic kidney disease Hypertension Hyperlipidemia COPD CVA Paroxysmal atrial fibrillation, not on anticoagulation secondary to GI bleed Seizure disorder History of left lung empyema with left-sided VATS procedure and decortication Nicotine dependence, patient smokes 1 pack per day PLAN: From cardiology perspective, patient is stable. Recommend follow up outpatient with Dr. Mayorga. Stress test can be performed as an outpatient. Continue home amlodipine, statin, Lasix, hydralazine and labetalol Nurse practitioner note has been reviewed by physician. Signing provider agrees with the documented findings, assessment, and plan of care. Objective - Vital Signs Vital signs: Vital Signs Temp 98.2 F 02/22/22 08:00 Pulse 75 02/22/22 08:25 Resp 19 02/22/22 08:00 BP 158/81 02/22/22 08:00 Pulse Ox 98 02/22/22 08:00 Intake & Output 02/21/22 02/22/22 02/22/22 18:59 06:59 18:59 Intake Total 1016 Output Total 3500 Balance -2484 Weight 63.7 kg Intake: Oral 716 Hemodialysis 300 Output: Urine 0 Hemodialysis 3500 Other: Voiding Method Toilet Toilet Urinal Urinal # Voids 1 - Labs CBC & Chem 7: 02/22/22 06:59 02/22/22 06:59 Labs: Abnormal Lab Results - Last 24 Hours (Table) 02/22/22 02/22/22 Range/Units 06:59 06:59 RBC 2.68 L (4.30-5.90) m/uL Hgb 9.4 L (13.0-17.5) gm/dL Hct 28.8 L (39.0-53.0) % MCV 107.2 H (80.0-100.0) fL RDW 17.6 H (11.5-15.5) % Plt Count 106 L (150-450) k/uL Lymphocytes # 0.9 L (1.0-4.8) k/uL Macrocytosis Marked A Carbon Dioxide 32 H (22-30) mmol/L BUN 38 H (9-20) mg/dL Creatinine 7.35 H* (0.66-1.25) mg/dL Microbiology - Last 24 Hours (Table) 02/20/22 19:40 Blood Culture - Preliminary Blood No Growth after 24 hours
[2022-02-22 14:32] VITALS: BP 179/81; PULSE 101; RESP 16; TEMP 98.1
--- NOTE | 2022-02-23 23:36 | P.PN ---
Subjective Pt is seen for f/u for ESRD. Admitted with fluid overload. Had missed a Rx S/p HD yesterday. Doing well today. Objective - Vital Signs Vital signs: Vital Signs Temp 98.1 F 02/22/22 12:50 Pulse 101 H 02/22/22 12:50 Resp 16 02/22/22 12:50 BP 179/81 02/22/22 12:50 Pulse Ox 99 02/22/22 12:50 - Exam Awake, comfortable, A and O x3 Lungs are clear Heart sounds heard Abdomen is soft, nontender. Extremities show no edema. 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 End-stage renal disease on hemodialysis on a Saturday schedule 2. Volume overload 3. Chest pain, troponin 0.035. 4. CK D mineral bone disorder him a currently on Renvela 5. History of seizures, maintained on Keppra 6. Hypertension, blood pressure is elevated. Partly volume sensitive. Expect improvement post dialysis. Plan: HD in am
== END 2022-02-22 12:50 | disposition home or self-care (01) | DRG 311 ==
LOC: EC 11:13 → 3SCARD 13:27
PROVIDERS: ADMIT Internal Medicine Geriatric Medicine; ATTEND Internal Medicine Geriatric Medicine
PROC: 5A1D70Z Performance of Urinary Filtration, Intermittent, Less than 6 Hours Per Day (ICD-10-PCS; principal; 2022-02-21)
PROC: 3E0F7SF Introduction of Other Gas into Respiratory Tract, Via Natural or Artificial Opening (ICD-10-PCS; 2022-02-21)
DX: I20.0 Unstable angina (principal); I50.33 Acute on chronic diastolic (congestive) heart failure; N18.6 End stage renal disease; J81.0 Acute pulmonary edema; I13.2 Hypertensive heart and chronic kidney disease with heart failure and with stage 5 chronic kidney disease, or end stage renal disease; J81.1 Chronic pulmonary edema; R07.9 Chest pain, unspecified; D63.8 Anemia in other chronic diseases classified elsewhere; D69.6 Thrombocytopenia, unspecified; E78.5 Hyperlipidemia, unspecified; F17.210 Nicotine dependence, cigarettes, uncomplicated; J44.9 Chronic obstructive pulmonary disease, unspecified; M50.30 Other cervical disc degeneration, unspecified cervical region; I16.0 Hypertensive urgency; G40.909 Epilepsy, unspecified, not intractable, without status epilepticus; I48.0 Paroxysmal atrial fibrillation; I08.1 Rheumatic disorders of both mitral and tricuspid valves; I27.20 Pulmonary hypertension, unspecified; I25.2 Old myocardial infarction; M89.9 Disorder of bone, unspecified; Z79.51 Long term (current) use of inhaled steroids; Z79.899 Other long term (current) drug therapy; Z80.7 Family history of other malignant neoplasms of lymphoid, hematopoietic and related tissues; Z82.3 Family history of stroke; Z86.16 Personal history of COVID-19; Z86.73 Personal history of transient ischemic attack (TIA), and cerebral infarction without residual deficits; Z87.01 Personal history of pneumonia (recurrent); Z87.19 Personal history of other diseases of the digestive system; Z87.442 Personal history of urinary calculi; Z91.19 Patient's noncompliance with other medical treatment and regimen; Z99.2 Dependence on renal dialysis; Z99.81 Dependence on supplemental oxygen; Z20.822 Contact with and (suspected) exposure to COVID-19; Z88.5 Allergy status to narcotic agent; Z87.81 Personal history of (healed) traumatic fracture
CPT/HCPCS: 36415; 71045; 71046; 80048; 80053; 83605; 83735; 83880; 84484; 85025; 85610; 85730; 87040; 87635; 90935; 93005; 93306; 94640; 96374; 99285

== ENCOUNTER 2022-08-15 13:23 | Observation (INO) | payer MEDICARE, BC ==
[2022-08-15 15:19] LABS: Basophils # (A) 0.1 k/uL (0-0.2); Basophils % (A) 1 %; Eosinophils # (A) 0.1 k/uL (0-0.7); Eosinophils % (A) 1 %; HCT 37.5 % (39.0-53.0); HGB 11.9 gm/dL (13.0-17.5); Lymphocytes # (A) 0.8 k/uL (1.0-4.8); Lymphocytes % (A) 11 %; MCH 31.6 pg (25.0-35.0); MCHC 31.7 g/dL (31.0-37.0); MCV 99.9 fL (80.0-100.0); Macrocytosis Slight; Mean Platelet Volume 9.9; Monocytes # (A) 0.4 k/uL (0-1.0); Monocytes % (A) 5 %; Neutrophils # (A) 5.6 k/uL (1.3-7.7); Neutrophils % (A) 78 %; Platelet Count 127 k/uL (150-450); RBC 3.75 m/uL (4.30-5.90); RDW 15.3 % (11.5-15.5); WBC 7.2 k/uL (3.8-10.6)
[2022-08-15 15:28] LABS: Partial Thromboplastin Time 28.1 sec (22.0-30.0); Prothrombin Time 10.5 sec (9.0-12.0)
[2022-08-15 15:32] LABS: Albumin 4.2 g/dL (3.5-5.0); Calcium 9.1 mg/dL (8.4-10.2); Potassium 5.9 mmol/L (3.5-5.1); Total Bilirubin 0.7 mg/dL (0.2-1.3); Total Protein 6.5 g/dL (6.3-8.2)
--- NOTE | 2022-08-15 16:38 | ED ---
General Adult HPI - General Chief complaint: Altered Mental Status Stated complaint: poss stroke Time Seen by Provider: 08/15/22 16:13 Source: patient Mode of arrival: wheelchair Limitations: no limitations - History of Present Illness Initial comments: Dictation was produced using [employer] dictation software. please excuse any grammatical, word or spelling errors. Chief Complaint: 52-year-old male with multiple comorbidities presents emergency department for generalized weakness and fall 3 days ago History of Present Illness: Patient is a 52-year-old male who states that he is here today for generalized weakness and perhaps a fall 3 days ago. Patient states that 3 days ago he may have fallen. He is told by significant other that he likely fell and was found on the ground unconscious. Patient thought when he was notified of that that he was sleeping. Today he started to feel significantly weak. Patient gets dialysis Saturday he missed Saturday and Saturday which is today. Denies any fever or constitutional symptoms. He states that he feels weak all over it difficult for him to ambulate and perform his activities of daily living. Complains of some diffuse body pain. The ROS documented in this emergency department record has been reviewed and confirmed by me. Those systems with pertinent positive or negative responses have been documented in the HPI. All other systems are other negative and/or noncontributory. PHYSICAL EXAM: General Impression: Alert and oriented x3, not in acute distress, ashen color in the face HEENT: Normocephalic atraumatic, extra-ocular movements intact, pupils equal and reactive to light bilaterally, mucous membranes moist. Cardiovascular: Heart regular rate and rhythm Chest: Able to complete full sentences, no retractions, no tachypnea Abdomen: abdomen soft, non-tender, non-distended, no organomegaly Musculoskeletal: Pulses present and equal in all extremities, no peripheral edema Motor: no focal deficits noted Neurological: CN II-XII grossly intact, no focal motor or sensory deficits noted Skin: Intact with no visualized rashes Psych: Normal affect and mood ED course: 52-year-old male multiple comorbidities presents emergency department for generalized weakness, suspicion of fall vital signs upon arrival are within acceptable limits. Patient able to stand with no complications. After evaluation obtained. CBC unremarkable. Coag panel is negative. Metabolic panel shows creatinine of 16.57 with a BUN of 88. Potassium 5.9. Elevated troponins which are on his baseline. Covered test negative. Chest x- ray suggest some fluid overload. Computed tomography scan of the brain is unremarkable for acute processes. Case discussed with nephrology literacy education professor, Dr. Park who will arrange for dialysis patient. Patient be admitted to [facility] hospitalist group with consultation to nephrology. EKG interpretation: Ventricular rate 72, sinus rhythm,. Interval 139, QS 11, QTc 447. No CO prolongation, no QTC prolongation. There is one isolated T-wave inversion in lead 3 that appears to be no compared to most recent EKG available in our EMR. EKG compared to 02/20/2022 showing no changes. Overall, this EKG is not specific - Related Data Home Medications Medication Instructions Recorded Confirmed Sevelamer [Renvela] 1,600 mg PO DIRECTED 06/16/19 08/15/22 Pantoprazole [Protonix] 40 mg PO BID@0700,1700 04/08/20 08/15/22 hydrALAZINE HCL [Apresoline] 100 mg PO TID@0700,1200,1700 04/08/20 08/15/22 Gabapentin [Neurontin] 100 mg PO BID@0700,1700 05/30/20 08/15/22 amLODIPine [Norvasc] 5 mg PO BID@0700,1700 05/30/20 08/15/22 Calcium Acetate [PhosLo] 667 mg PO TID-W/MEALS 12/15/20 08/15/22 Furosemide [Lasix] 80 mg PO BID@0700,1700 01/03/22 08/15/22 Acetaminophen with Codeine 1 tab PO BID PRN 08/15/22 08/15/22 [Tylenol #4 Tablet] Doxazosin [Cardura] 4 mg PO BID@0700,1900 08/15/22 08/15/22 Labetalol [Trandate] 200 mg PO BID 08/15/22 08/15/22 levETIRAcetam [Keppra] 750 mg PO BID@0700,1900 08/15/22 08/15/22 Allergies Allergy/AdvReac Type Severity Reaction Status Date / Time baclofen AdvReac "too Verified 08/15/22 18:00 strong/sedated" hydromorphone [From Dilaudid] AdvReac Hallucinati Verified 08/15/22 18:00 ons morphine AdvReac Hallucinati Verified 08/15/22 18:00 ons tramadol AdvReac Hallucinati Verified 08/15/22 18:00 ons Review of Systems ROS Statement: Those systems with pertinent positive or pertinent negative responses have been documented in the HPI. ROS Other: All systems not noted in ROS Statement are negative. 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 eye injection with steroid on 04/04 for eye "stroke" Past Anesthesia/Blood Transfusion Reactions: No Reported Reaction Additional Past Anesthesia/Blood Transfusion Reaction / Comment(s): Pt has received blood in past without reaction. Past Psychological History: No Psychological Hx Reported Smoking Status: Current every day smoker Past Alcohol Use History: None Reported Past Drug Use History: None Reported - Past Family History Father Family Medical History: Cancer, CVA/TIA Additional Family Medical History / Comment(s): Father had lymphoma. He had a CVA Mother Family Medical History: CVA/TIA Additional Family Medical History / Comment(s): Mother had a CVA. Sister(s) Additional Family Medical History / Comment(s): Patient has 5 sisters one has from an aneurysm in the brain. 2 sisters have history of kidney stones. Patient has one brother that was shot as cause of , he was on the kidney transplant list. Patient has 6 children with no major medical problems. General Exam Limitations: no limitations Course Vital Signs 08/15/22 08/15/22 13:29 13:38 Temperature 98.1 F Pulse Rate 73 Respiratory 16 Rate Blood Pressure 189/84 O2 Sat by Pulse 98 Oximetry Medical Decision Making - Lab Data Result diagrams: 08/15/22 14:47 08/15/22 14:47 Lab Results 08/15/22 08/15/22 08/15/22 Range/Units 14:47 14:47 14:47 WBC 7.2 (3.8-10.6) k/uL RBC 3.75 L (4.30-5.90) m/uL Hgb 11.9 L (13.0-17.5) gm/dL Hct 37.5 L (39.0-53.0) % MCV 99.9 (80.0-100.0) fL MCH 31.6 (25.0-35.0) pg MCHC 31.7 (31.0-37.0) g/dL RDW 15.3 (11.5-15.5) % Plt Count 127 L (150-450) k/uL MPV 9.9 Neutrophils % 78 % Lymphocytes % 11 % Monocytes % 5 % Eosinophils % 1 % Basophils % 1 % Neutrophils # 5.6 (1.3-7.7) k/uL Lymphocytes # 0.8 L (1.0-4.8) k/uL Monocytes # 0.4 (0-1.0) k/uL Eosinophils # 0.1 (0-0.7) k/uL Basophils # 0.1 (0-0.2) k/uL Macrocytosis Slight PT 10.5 (9.0-12.0) sec INR 1.0 (<1.2) APTT 28.1 (22.0-30.0) sec Sodium 140 (137-145) mmol/L Potassium 5.9 H (3.5-5.1) mmol/L Chloride 101 (98-107) mmol/L Carbon Dioxide 17 L (22-30) mmol/L Anion Gap 22 mmol/L BUN 88 H (9-20) mg/dL Creatinine 16.57 H* (0.66-1.25) mg/dL Est GFR (CKD-EPI)AfAm 3 (>60 ml/min/1.73 sqM) Est GFR (CKD-EPI)NonAf 3 (>60 ml/min/1.73 sqM) Glucose 97 (74-99) mg/dL Plasma Lactic Acid Tenzin (0.7-2.0) mmol/L Calcium 9.1 (8.4-10.2) mg/dL Ionized Calcium Ruby (4.5-5.3) mg/dL Magnesium (1.6-2.3) mg/dL Total Bilirubin 0.7 (0.2-1.3) mg/dL AST 30 (17-59) U/L ALT 17 (4-49) U/L Alkaline Phosphatase 102 (38-126) U/L Ammonia (<30) umol/L Creatine Kinase (55-170) U/L Troponin I (0.000-0.034) ng/mL Total Protein 6.5 (6.3-8.2) g/dL Albumin 4.2 (3.5-5.0) g/dL Coronavirus (PCR) (Not Detectd) 08/15/22 08/15/22 08/15/22 Range/Units 14:47 16:40 16:44 WBC (3.8-10.6) k/uL RBC (4.30-5.90) m/uL Hgb (13.0-17.5) gm/dL Hct (39.0-53.0) % MCV (80.0-100.0) fL MCH (25.0-35.0) pg MCHC (31.0-37.0) g/dL RDW (11.5-15.5) % Plt Count (150-450) k/uL MPV Neutrophils % % Lymphocytes % % Monocytes % % Eosinophils % % Basophils % % Neutrophils # (1.3-7.7) k/uL Lymphocytes # (1.0-4.8) k/uL Monocytes # (0-1.0) k/uL Eosinophils # (0-0.7) k/uL Basophils # (0-0.2) k/uL Macrocytosis PT (9.0-12.0) sec INR (<1.2) APTT (22.0-30.0) sec Sodium (137-145) mmol/L Potassium (3.5-5.1) mmol/L Chloride (98-107) mmol/L Carbon Dioxide (22-30) mmol/L Anion Gap mmol/L BUN (9-20) mg/dL Creatinine (0.66-1.25) mg/dL Est GFR (CKD-EPI)AfAm (>60 ml/min/1.73 sqM) Est GFR (CKD-EPI)NonAf (>60 ml/min/1.73 sqM) Glucose (74-99) mg/dL Plasma Lactic Acid Tenzin (0.7-2.0) mmol/L Calcium (8.4-10.2) mg/dL Ionized Calcium Ruby 4.7 (4.5-5.3) mg/dL Magnesium 1.9 (1.6-2.3) mg/dL Total Bilirubin (0.2-1.3) mg/dL AST (17-59) U/L ALT (4-49) U/L Alkaline Phosphatase (38-126) U/L Ammonia (<30) umol/L Creatine Kinase 532 H (55-170) U/L Troponin I 0.071 H* (0.000-0.034) ng/mL Total Protein (6.3-8.2) g/dL Albumin (3.5-5.0) g/dL Coronavirus (PCR) Not Detected (Not Detectd) 08/15/22 08/15/22 Range/Units 16:44 16:44 WBC (3.8-10.6) k/uL RBC (4.30-5.90) m/uL Hgb (13.0-17.5) gm/dL Hct (39.0-53.0) % MCV (80.0-100.0) fL MCH (25.0-35.0) pg MCHC (31.0-37.0) g/dL RDW (11.5-15.5) % Plt Count (150-450) k/uL MPV Neutrophils % % Lymphocytes % % Monocytes % % Eosinophils % % Basophils % % Neutrophils # (1.3-7.7) k/uL Lymphocytes # (1.0-4.8) k/uL Monocytes # (0-1.0) k/uL Eosinophils # (0-0.7) k/uL Basophils # (0-0.2) k/uL Macrocytosis PT (9.0-12.0) sec INR (<1.2) APTT (22.0-30.0) sec Sodium (137-145) mmol/L Potassium (3.5-5.1) mmol/L Chloride (98-107) mmol/L Carbon Dioxide (22-30) mmol/L Anion Gap mmol/L BUN (9-20) mg/dL Creatinine (0.66-1.25) mg/dL Est GFR (CKD-EPI)AfAm (>60 ml/min/1.73 sqM) Est GFR (CKD-EPI)NonAf (>60 ml/min/1.73 sqM) Glucose (74-99) mg/dL Plasma Lactic Acid Tenzin 0.8 (0.7-2.0) mmol/L Calcium (8.4-10.2) mg/dL Ionized Calcium Ruby (4.5-5.3) mg/dL Magnesium (1.6-2.3) mg/dL Total Bilirubin (0.2-1.3) mg/dL AST (17-59) U/L ALT (4-49) U/L Alkaline Phosphatase (38-126) U/L Ammonia 27 (<30) umol/L Creatine Kinase (55-170) U/L Troponin I 0.066 H* (0.000-0.034) ng/mL Total Protein (6.3-8.2) g/dL Albumin (3.5-5.0) g/dL Coronavirus (PCR) (Not Detectd) Disposition Clinical Impression: Fluid overload Disposition: ADMITTED IP TO THIS [facility] Condition: Fair Referrals: Jaylen Holguin MD [Primary Care Provider] - 1-2 days Decision Time: 19:38
[2022-08-15 17:25] LABS: Lactic Acid, Venous 0.8 mmol/L (0.7-2.0)
[2022-08-15 17:38] LABS: Ionized Calcium 4.7 mg/dL (4.5-5.3)
[2022-08-15 17:45] LABS: Magnesium 1.9 mg/dL (1.6-2.3)
--- NOTE | 2022-08-15 18:09 | XR ---
EXAMINATION TYPE: XR chest 1V portable DATE OF EXAM: 08/15/2022 COMPARISON: 02/22/2022 HISTORY: Chest pain TECHNIQUE: 2 views FINDINGS: There is some pulmonary interstitial and airspace mild edema. Heart is enlarged. There are chest leads. No evidence of any significant pleural fluid. Bony thorax is intact. IMPRESSION: There is some pulmonary edema which is increased compared to old exam and could be acute heart failure or acute and chronic interstitial pneumonia.
--- NOTE | 2022-08-15 19:17 | CT ---
EXAMINATION TYPE: CT brain wo con DATE OF EXAM: 08/15/2022 COMPARISON: 12/18/2017 HISTORY: Fall CT DLP: 1182.4 mGycm Automated exposure control for dose reduction was used. There is cerebral cortical atrophy. There is no mass effect or midline shift. No sign of intracranial hemorrhage. There is some patchy 1.5 cm area of hypodensity anterior right internal capsule. There i s 5 mm area of hypodensity anterior left internal capsule. The calvarium is intact. Skull base is int act. IMPRESSION: Cerebral atrophy and chronic small vessel ischemia. No acute intracranial abnormality. There is progr ession of the white matter changes compared to the old exam.
[2022-08-15] MEDS ORDERED: NALOXONE 0.4 MG/ML 1 ML VIAL IV PRN (19:35)
[2022-08-15] MEDS ORDERED: SODIUM CHLORIDE 0.9% 1,000 ML IV SCH (19:45)
[2022-08-16] MEDS ORDERED: hydrALAZINE HCL 20 MG/ML 1 ML VIAL IVP STA (04:29)
[2022-08-16] MEDS ORDERED: Acetaminophen-Codeine 300-30mg TAB PO PRN (04:30)
[2022-08-16] MEDS ORDERED: FUROSEMIDE 80 MG TAB PO SCH (07:00)
[2022-08-16] MEDS ORDERED: GABAPENTIN 100 MG CAP PO SCH (07:00)
[2022-08-16] MEDS ORDERED: amLODIPine 5 MG TAB PO SCH (07:00)
[2022-08-16] MEDS ORDERED: DOXAZOSIN 4 MG TAB PO SCH (07:00)
[2022-08-16] MEDS ORDERED: PANTOPRAZOLE 40 MG TABLET PO SCH (07:00)
[2022-08-16] MEDS: hydrALAZINE HCL 50 MG TAB PO SCH ×2 (07:57→12:41)
[2022-08-16] MEDS: SEVELAMER 800 MG TAB PO SCH ×3 (07:57→12:42)
[2022-08-16] MEDS: CALCIUM ACETATE 667 MG TAB PO SCH ×2 (07:58→12:41)
[2022-08-16] MEDS ORDERED: LABETALOL 200 MG TAB PO SCH ×2 (09:00→21:00)
[2022-08-16] MEDS ORDERED: hydrALAZINE HCL 20 MG/ML 1 ML VIAL IVP PRN (11:42)
--- NOTE | 2022-08-16 11:45 | P.NPCON ---
History of Present Illness - Reason for Consult end stage renal disease - History of Present Illness Reason for consultation: End-stage renal disease History of present illness: Patient is a 52-year-old male seen in renal consultation for end-stage renal disease. He is maintained on hemodialysis on Saturday schedule. Patient states he was recently started on baclofen for low back pain. Patient states he passed out at his house on Saturday and missed dialysis. He also didn't go to hemodialysis yesterday and came to the hospital. His back pain is improved. He is awake and alert. Denies chest pain or shortness of breath. No fever or chills. He did undergo hemodialysis last night while in the hospital. Patient states he finished the treatment orally this morning and does not want another treatment today. No acute changes are noted on CT. Chest x-ray was suggestive of pulmonary vascular congestion. He is currently on room air. Blood pressure has been running high at this admission. Vital signs are stable. Blood pressure high. General: The patient appeared well nourished and normally developed. HEENT: Head exam is unremarkable. LUNGS: Breath sounds decreased. HEART: Rate and Rhythm are regular. ABDOMEN: Soft, no distention. EXTREMITITES: No edema. 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 eye injection with steroid on 04/04 for eye "stroke" Past Anesthesia/Blood Transfusion Reactions: No Reported Reaction Additional Past Anesthesia/Blood Transfusion Reaction / Comment(s): Pt has received blood in past without reaction. Past Psychological History: No Psychological Hx Reported Additional Psychological History / Comment(s): Pt resides with his spouse. He drives rarely. His spouse takes him to appts or his sister does. He is otherwise independent. He has O2 and a nebulizer Smoking Status: Current every day smoker Past Alcohol Use History: None Reported Additional Past Alcohol Use History / Comment(s): Patient was a smoker one pack per day since he was 17 years of age. Currently down to half pack per day. Past Drug Use History: None Reported - Past Family History Father Family Medical History: Cancer, CVA/TIA Additional Family Medical History / Comment(s): Father had lymphoma. He had a CVA Mother Family Medical History: CVA/TIA Additional Family Medical History / Comment(s): Mother had a CVA. Sister(s) Additional Family Medical History / Comment(s): Patient has 5 sisters one has from an aneurysm in the brain. 2 sisters have history of kidney stones. Patient has one brother that was shot as cause of , he was on the kidney transplant list. Patient has 6 children with no major medical problems. Medications and Allergies Home Medications Medication Instructions Recorded Confirmed Type Sevelamer [Renvela] 1,600 mg PO DIRECTED 06/16/19 08/15/22 History Pantoprazole [Protonix] 40 mg PO BID@0700,1700 04/08/20 08/15/22 History hydrALAZINE HCL [Apresoline] 100 mg PO TID@0700,1200,1700 04/08/20 08/15/22 History Gabapentin [Neurontin] 100 mg PO BID@0700,1700 05/30/20 08/15/22 History amLODIPine [Norvasc] 5 mg PO BID@0700,1700 05/30/20 08/15/22 History Calcium Acetate [PhosLo] 667 mg PO TID-W/MEALS 12/15/20 08/15/22 History Furosemide [Lasix] 80 mg PO BID@0700,1700 01/03/22 08/15/22 History Acetaminophen with Codeine 1 tab PO BID PRN 08/15/22 08/15/22 History [Tylenol #4 Tablet] Doxazosin [Cardura] 4 mg PO BID@0700,1900 08/15/22 08/15/22 History Labetalol [Trandate] 200 mg PO BID 08/15/22 08/15/22 History levETIRAcetam [Keppra] 750 mg PO BID@0700,1900 08/15/22 08/15/22 History Allergies Allergy/AdvReac Type Severity Reaction Status Date / Time baclofen AdvReac "too Verified 08/15/22 18:00 strong/sedated" hydromorphone [From Dilaudid] AdvReac Hallucinati Verified 08/15/22 18:00 ons morphine AdvReac Hallucinati Verified 08/15/22 18:00 ons tramadol AdvReac Hallucinati Verified 08/15/22 18:00 ons Physical Exam Vitals: Vital Signs Temp Pulse Pulse Resp BP BP Pulse Ox 08/16/22 08:00 87 17 08/16/22 07:00 98.6 F 87 17 194/95 93 L 08/16/22 05:14 185/92 08/16/22 04:20 84 202/96 08/16/22 02:00 98.5 F 84 16 202/104 96 08/16/22 01:48 206/106 08/15/22 20:51 97.8 F 84 18 201/96 96 08/15/22 20:05 84 18 216/107 94 L 08/15/22 18:56 65 16 164/83 100 08/15/22 13:38 98.1 F 08/15/22 13:29 73 16 189/84 98 Intake and Output 08/15/22 08/16/22 08/16/22 22:59 06:59 14:59 Intake Total 300 300 Balance 300 300 Intake: Oral 300 300 Other: Voiding Method Toilet Toilet Toilet Weight 70.307 kg Results - Lab Results Most recent lab results Calcium 9.1 mg/dL (8.4-10.2) 08/15/22 14:47 Magnesium 1.9 mg/dL (1.6-2.3) 08/15/22 16:44 08/15/22 14:47 08/15/22 14:47 Assessment and Plan Plan: Assessment: 1. End-stage renal disease maintained on hemodialysis on Saturday schedule. 2. Hypertension with chronic kidney disease. 3. Volume overload. Improved post ultrafiltration. 4. 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 5. Chronic diastolic CHF. 6. Hyperkalemia secondary to chronic kidney disease and missed dialysis. Plan: Completed hemodialysis early this morning. Refusing another treatment today. Plan for treatment tomorrow. Check potassium level today. Home antihypertensives resumed. Add IV hydralazine 10 mg IV every 4 hours as needed for systolic blood pressure greater than 160. Thank you for the consultation. I will continue to follow the patient with you during his hospital stay.
[2022-08-16 12:07] LABS: African American GFR (CKD) 5 (>60 ml/min/1.73 sqM); Anion Gap 19 mmol/L; Blood Urea Nitrogen 66 mg/dL (9-20); Calcium 9.1 mg/dL (8.4-10.2); Carbon Dioxide 22 mmol/L (22-30); Chloride 99 mmol/L (98-107); Glucose 82 mg/dL (74-99); Non-African American GFR(CKD) 5 (>60 ml/min/1.73 sqM); Potassium 5.7 mmol/L (3.5-5.1); Sodium 140 mmol/L (137-145)
[2022-08-16] MEDS ORDERED: SODIUM POLYSTYRENE SULFONATE 15 GM/60 ML BOTTLE PO STA (13:00)
[2022-08-16 13:01] VITALS: BP 202/99; PULSE 80; RESP 18; TEMP 97.6
[2022-08-16] MEDS ORDERED: DOXAZOSIN 2 MG TAB PO SCH (21:00)
--- NOTE | 2022-08-16 22:44 | P.HPIM ---
History of Present Illness H&P Date: 08/16/22 Chief Complaint: Generalized weakness and shortness of breath 52-year-old male with a known history of ESRD on hemodialysis MWF, history of paroxysmal atrial fibrillation not on any anticoagulation, chronic thrombocytopenia, lower GI bleed, spinal stenosis and degenerative disc disease and is on chronic pain medication with Tylenol for presents to ER with complaints of generalized weakness and missed hemodialysis. Patient has been having chronic back pain and was recently started on baclofen. Patient states that after taking the medication he fell asleep and likely fell on the ground and was a for a long time. Patient thought that he was sleeping. Patient felt very weak and had difficulty ambulation. On admission chest x-ray showed there is some pulmonary edema which is increased compared to old exam and could be acute heart failure acute on chronic interstitial pneumonia. CT head showed cerebral atrophy and chronic small vessel ischemia. No acute intracranial abnormality. There is progression of the white matter changes compared to the old exam. EKG showed sinus rhythm. Laboratory showed WBC 7.2 and hemoglobin 11.9 and platelets 127 Sodium 140 potassium 5.9 chloride 101 bicarb is 17 BUN 88 and creatinine 16.5 and troponin 0.071 and 0.066 and creatinine kinase level is 532 and coronavirus PCR not detected. Past Medical History Past Medical History: Atrial Fibrillation, Blood Disorder, CVA/TIA, Eye Disord er, GI Bleed, Hyperlipidemia, Hypertension, Renal Disease, Seizure Disorder Additional Past Medical History / Comment(s): End-stage renal disease on hemodialysis schedule of M/W/F , urolithiasis/nephrolithiasis, acute hypoxic respiratory failure after missed dialysis, paroxysmal Afib, chronic anemia, chronic thrombocytopenia, lower GI bleed, duodenal ulcer, seizures with last seizures 12/2017, 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, pericardial effusion, L lung empyema, spinal stenosis, DDD, chronic cervical and back pain, R eye "lazy", past R ankle and R hand fractures-casted, blood transfusion,uses O2 @2L [place] prn History of Any Multi-Drug Resistant Organisms: None Reported Past Surgical History: Bladder Surgery, Orthopedic Surgery Additional Past Surgical History / Comment(s): Hemorrhoidectomy, EGDs, colonoscopies, L sided Vats with decortication, pericardial window, hemodialysis fistula, cystoscopies/lithotripsies, bilateral renal stents-double J catheter. eye injection with steroid on 04/04 for eye "stroke" Past Anesthesia/Blood Transfusion Reactions: No Reported Reaction Additional Past Anesthesia/Blood Transfusion Reaction / Comment(s): Pt has received blood in past without reaction. Past Psychological History: No Psychological Hx Reported Additional Psychological History / Comment(s): Pt resides with his spouse. He drives rarely. His spouse takes him to appts or his sister does. He is otherwise independent. He has O2 and a nebulizer Smoking Status: Current every day smoker Past Alcohol Use History: None Reported Additional Past Alcohol Use History / Comment(s): Patient was a smoker one pack per day since he was 17 years of age. Currently down to half pack per day. Past Drug Use History: None Reported - Past Family History Father Family Medical History: Cancer, CVA/TIA Additional Family Medical History / Comment(s): Father had lymphoma. He had a CVA Mother Family Medical History: CVA/TIA Additional Family Medical History / Comment(s): Mother had a CVA. Sister(s) Additional Family Medical History / Comment(s): Patient has 5 sisters one has from an aneurysm in the brain. 2 sisters have history of kidney stones. Patient has one brother that was shot as cause of , he was on the kidney transplant list. Patient has 6 children with no major medical problems. Medications and Allergies Home Medications Medication Instructions Recorded Confirmed Type Sevelamer [Renvela] 1,600 mg PO DIRECTED 06/16/19 08/15/22 History Pantoprazole [Protonix] 40 mg PO BID@0700,1700 04/08/20 08/15/22 History hydrALAZINE HCL [Apresoline] 100 mg PO TID@0700,1200,1700 04/08/20 08/15/22 History Gabapentin [Neurontin] 100 mg PO BID@0700,1700 05/30/20 08/15/22 History amLODIPine [Norvasc] 5 mg PO BID@0700,1700 05/30/20 08/15/22 History Calcium Acetate [PhosLo] 667 mg PO TID-W/MEALS 12/15/20 08/15/22 History Furosemide [Lasix] 80 mg PO BID@0700,1700 01/03/22 08/15/22 History Acetaminophen with Codeine 1 tab PO BID PRN 08/15/22 08/15/22 History [Tylenol #4 Tablet] levETIRAcetam [Keppra] 750 mg PO BID@0700,1900 08/15/22 08/15/22 History Doxazosin [Cardura] 6 mg PO BID #120 tab 08/16/22 Rx Labetalol [Trandate] 400 mg PO BID #120 tab 08/16/22 Rx Allergies Allergy/AdvReac Type Severity Reaction Status Date / Time baclofen AdvReac "too Verified 08/15/22 18:00 strong/sedated" hydromorphone [From Dilaudid] AdvReac Hallucinati Verified 08/15/22 18:00 ons morphine AdvReac Hallucinati Verified 08/15/22 18:00 ons tramadol AdvReac Hallucinati Verified 08/15/22 18:00 ons Physical Exam Vitals: Vital Signs Temp Pulse Pulse Resp BP BP Pulse Ox 08/16/22 07:00 98.6 F 87 17 194/95 93 L 08/16/22 05:14 185/92 08/16/22 04:20 84 202/96 08/16/22 02:00 98.5 F 84 16 202/104 96 08/16/22 01:48 206/106 08/15/22 20:51 97.8 F 84 18 201/96 96 08/15/22 20:05 84 18 216/107 94 L 08/15/22 18:56 65 16 164/83 100 08/15/22 13:38 98.1 F 08/15/22 13:29 73 16 189/84 98 Intake and Output 08/15/22 08/16/22 08/16/22 22:59 06:59 14:59 Intake Total 300 300 Balance 300 300 Intake: Oral 300 300 Other: Voiding Method Toilet Toilet Weight 70.307 kg Results CBC & Chem 7: 08/15/22 14:47 08/16/22 11:42 Labs: Abnormal Lab Results - Last 24 Hours (Table) 08/15/22 08/15/22 08/15/22 Range/Units 14:47 14:47 14:47 RBC 3.75 L (4.30-5.90) m/uL Hgb 11.9 L (13.0-17.5) gm/dL Hct 37.5 L (39.0-53.0) % Plt Count 127 L (150-450) k/uL Lymphocytes # 0.8 L (1.0-4.8) k/uL Potassium 5.9 H (3.5-5.1) mmol/L Carbon Dioxide 17 L (22-30) mmol/L BUN 88 H (9-20) mg/dL Creatinine 16.57 H* (0.66-1.25) mg/dL Creatine Kinase (55-170) U/L Troponin I 0.071 H* (0.000-0.034) ng/mL 08/15/22 08/15/22 Range/Units 16:44 16:44 RBC (4.30-5.90) m/uL Hgb (13.0-17.5) gm/dL Hct (39.0-53.0) % Plt Count (150-450) k/uL Lymphocytes # (1.0-4.8) k/uL Potassium (3.5-5.1) mmol/L Carbon Dioxide (22-30) mmol/L BUN (9-20) mg/dL Creatinine (0.66-1.25) mg/dL Creatine Kinase 532 H (55-170) U/L Troponin I 0.066 H* (0.000-0.034) ng/mL Thrombosis Risk Factor Assmnt - Choose All That Apply Each Factor Represents 1 point: Age 41-60 years, Obesity (BMI >25) Thrombosis Risk Factor Assessment Total Risk Factor Score: 2 Thrombosis Risk Factor Assessment Level: Low Risk Assessment and Plan Assessment: Acute pulmonary edema/fluid overload likely due to missed hemodialysis Hyperkalemia secondary to CKD ESRD on hemodialysis Saturday and Saturday Troponin leak likely due to CKD/ESRD Uncontrolled hypertension Degenerative disc disease and chronic back pain Paroxysmal atrial fibrillation not on any anticoagulation due to history of prior GI bleed Chronic thrombocytopenia with platelet count 127 on admission History of seizure disorder Hypertension Hyperlipidemia History of left thalamus CVA Current everyday smoker DVT prophylaxis Plan: Patient admitted on telemetry monitoring. Still hemodialysis early this morning. Patient states that he feels better and does not want any hemodialysis today. Repeat BMP was ordered. Continue with pain management and nephrology is on board. Recommended hemodialysis again tomorrow. Prognosis is guarded with multiple medical problems and comorbid conditions. Time with Patient: Greater than 30
== END 2022-08-16 14:50 | disposition left against medical advice (07) ==
LOC: EC 13:23 → 6NMEDSUR 19:35
PROVIDERS: ADMIT Hospitalist; ATTEND Hospitalist
DX: I13.2 Hypertensive heart and chronic kidney disease with heart failure and with stage 5 chronic kidney disease, or end stage renal disease (principal); I50.32 Chronic diastolic (congestive) heart failure; N18.6 End stage renal disease; E78.5 Hyperlipidemia, unspecified; I48.0 Paroxysmal atrial fibrillation; N25.0 Renal osteodystrophy; E87.5 Hyperkalemia; D63.1 Anemia in chronic kidney disease; D69.6 Thrombocytopenia, unspecified; G89.29 Other chronic pain; M54.9 Dorsalgia, unspecified; G40.909 Epilepsy, unspecified, not intractable, without status epilepticus; F17.200 Nicotine dependence, unspecified, uncomplicated; Z86.73 Personal history of transient ischemic attack (TIA), and cerebral infarction without residual deficits; Z87.442 Personal history of urinary calculi; Z99.2 Dependence on renal dialysis; Z79.899 Other long term (current) drug therapy; Z88.5 Allergy status to narcotic agent; Z88.6 Allergy status to analgesic agent; Z82.3 Family history of stroke; Z80.7 Family history of other malignant neoplasms of lymphoid, hematopoietic and related tissues; Z20.822 Contact with and (suspected) exposure to COVID-19
CPT/HCPCS: 96374; 99285; 36415; 93005; 80053; 80048; 82330; 82140; 82550; 83605; 83735; 84484; 85025; 85610; 85730; 87635; 71045; 70450; G0378 ×3; J0360; 90935

== ENCOUNTER 2022-09-20 09:54 | Inpatient (IN) | payer MEDICARE, BC ==
--- NOTE | 2022-09-20 10:23 | ED ---
SOB HPI - General Chief Complaint: Shortness of Breath Stated Complaint: sob Time Seen by Provider: 09/20/22 10:06 Source: patient, EMS, RN notes reviewed Mode of arrival: EMS Limitations: no limitations - History of Present Illness Initial Comments: Patient is a 52-year-old male appearing older than his stated age presenting to the emergency department from home via EMS with complaints of worsening shortness of breath. He states that he has had worsening shortness of breath over the last 2 days, he has chronic dyspnea and is on 2-3 L nasal cannula at home. He received a nebulized treatment by EMS. EMS reports a fever T-max of 102.3. He reports a cough without significant sputum production; he is a current smoker and has a history of recurrent pneumonia along with hypoxemia when dialysis treatments are missed. He is a poor historian and is unsure why he is on oxygen at home but chart review reveals that he has COPD along with volume overload when missed dialysis treatments. He denies any other complaints or concerns at this time including chest pain, headache, dizziness, abdominal pain, nausea, vomiting, chills with his fever. In addition to his COPD and recurrent pneumonia history along with his end-stage renal disease with hemodialysis he has a past medical history significant for hypertension, hyperlipidemia, gastrointestinal bleeding, CVA with no residual, seizures, spinal stenosis with degenerative disc disease causing chronic neck and back pain, anemia, thrombocytopenia, and paroxysmal A. fib. - Related Data Home Medications Medication Instructions Recorded Confirmed Sevelamer [Renvela] 1,600 mg PO DIRECTED 06/16/19 08/15/22 Pantoprazole [Protonix] 40 mg PO BID@0700,1700 04/08/20 08/15/22 hydrALAZINE HCL [Apresoline] 100 mg PO TID@0700,1200,1700 04/08/20 08/15/22 Gabapentin [Neurontin] 100 mg PO BID@0700,1700 05/30/20 08/15/22 amLODIPine [Norvasc] 5 mg PO BID@0700,1700 05/30/20 08/15/22 Calcium Acetate [PhosLo] 667 mg PO TID-W/MEALS 12/15/20 08/15/22 Furosemide [Lasix] 80 mg PO BID@0700,1700 01/03/22 08/15/22 Acetaminophen with Codeine 1 tab PO BID PRN 08/15/22 08/15/22 [Tylenol #4 Tablet] levETIRAcetam [Keppra] 750 mg PO BID@0700,1900 08/15/22 08/15/22 Previous Rx's Medication Instructions Recorded Doxazosin [Cardura] 6 mg PO BID #120 tab 08/16/22 Labetalol [Trandate] 400 mg PO BID #120 tab 08/16/22 Allergies Allergy/AdvReac Type Severity Reaction Status Date / Time baclofen AdvReac "too Verified 08/15/22 18:00 strong/sedated" hydromorphone [From Dilaudid] AdvReac Hallucinati Verified 08/15/22 18:00 ons morphine AdvReac Hallucinati Verified 08/15/22 18:00 ons tramadol AdvReac Hallucinati Verified 08/15/22 18:00 ons Review of Systems ROS Statement: Those systems with pertinent positive or pertinent negative responses have been documented in the HPI. ROS Other: All systems not noted in ROS Statement are negative. Past Medical History Past Medical History: Atrial Fibrillation, Blood Disorder (Anemia and chronic th rombocytopenia), COPD (home O2 2-3L), CVA/TIA, Dialysis (End-stage renal disease on dialysis Saturday), Eye Disorder, GI Bleed, Hyperlipidemia, Hypertension, Renal Disease, Seizure Disorder Additional Past Medical History / Comment(s): Urolithiasis/nephrolithiasis, acute hypoxic respiratory failure after missed dialysis, lower GI bleed, duodenal ulcer, seizures with last seizures 12/2017, 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, pericardial effusion, spinal stenosis, DDD, chronic cervical and back pain, R eye "lazy", blood transfusion History of Any Multi-Drug Resistant Organisms: None Reported Past Surgical History: Bladder Surgery, Orthopedic Surgery Additional Past Surgical History / Comment(s): Hemorrhoidectomy, EGDs, colonoscopies, L sided Vats with decortication, pericardial window, hemodialysis fistula, cystoscopies/lithotripsies, bilateral renal stents-double J catheter. eye injection with steroid on 04/04 for eye "stroke" Past Anesthesia/Blood Transfusion Reactions: No Reported Reaction Additional Past Anesthesia/Blood Transfusion Reaction / Comment(s): Pt has received blood in past without reaction. Past Psychological History: No Psychological Hx Reported Smoking Status: Current every day smoker Past Alcohol Use History: None Reported Past Drug Use History: None Reported - Past Family History Father Family Medical History: Cancer, CVA/TIA Additional Family Medical History / Comment(s): Father had lymphoma. He had a CVA Mother Family Medical History: CVA/TIA Additional Family Medical History / Comment(s): Mother had a CVA. Sister(s) Additional Family Medical History / Comment(s): Patient has 5 sisters one has from an aneurysm in the brain. 2 sisters have history of kidney stones. Patient has one brother that was shot as cause of , he was on the kidney transplant list. Patient has 6 children with no major medical problems. General Exam General appearance: alert, in no apparent distress Head exam: Present: atraumatic, normocephalic, normal inspection Eye exam: Present: normal appearance, PERRL, conjunctival injection (bilateral). Absent: scleral icterus, periorbital swelling ENT exam: Present: normal exam, mucous membranes moist Neck exam: Present: normal inspection, full ROM Respiratory exam: Present: wheezes (anterior expiratory), decreased breath sounds (throughout), other (rattling cough without sputum production). Absent: respiratory distress, rales, rhonchi, stridor, accessory muscle use Cardiovascular Exam: Present: regular rate, normal rhythm, normal heart sounds, systolic murmur. Absent: diastolic murmur, rubs, gallop, clicks GI/Abdominal exam: Present: soft, normal bowel sounds. Absent: distended, tenderness, guarding, rebound, rigid Rectal exam: Present: deferred Extremities exam: Present: normal inspection. Absent: pedal edema, joint swelling Back exam: Present: normal inspection Neurological exam: Present: alert, oriented X3, other (poor historian) Psychiatric exam: Present: normal affect, normal mood Skin exam: Present: warm, dry, intact, normal color, other (L AVF +/+). Absent: rash Course Vital Signs 09/20/22 10:09 Temperature 100.1 F H Pulse Rate 86 Respiratory 20 Rate Blood Pressure 118/67 O2 Sat by Pulse 95 Oximetry - Reevaluation(s) Reevaluation #1: Chest x-ray reveals right middle lobe consolidation consistent for atypical pulmonary edema vs multifocal pneumonia. COVID and influenza swabs negative will give 500 mg of Zithromax IV and 1 gm Rocephin. Time: 11:40 Reevaluation #2: Laboratory studies reveal a troponin of 11.600. Discussed with Dr. Gallego. Cardiology paged. Will start on heparin drip. Will obtain repeat EKG. Time: 11:55 - Consultations Consultation #1: Dr. Mayorga with cardiology notified of elevated troponin and nurse practitioner Mimi Bond to come evaluate patient. Heparin to be administered no further orders at this time. Time: 12:26 Medical Decision Making - Medical Decision Making 52-year-old male presenting to the emergency room with worsening shortness of breath for 2 days with fevers. He has a history of recurrent pneumonia, hypoxemia secondary to missed dialysis treatments along with COPD with home oxygen and current smoker. Oxygenating well on baseline of 3 L nasal cannula. Low-grade fever of 100.1 on upon arrival to emergency room without any significant respiratory distress noted. No need for increased oxygenation or repeat nebulized treatments at this time. Oral start workup regarding shortness of breath with EKG, chest x-ray, Covid and pneumonia swabs, CBC, CMP, proBNP, blood cultures and troponin. Will give 1 g of Tylenol for low-grade fever and monitor. Chest x-ray shows pulmonary edema versus multifocal pneumonia. 1gm Rocephin and 500 mg of Zithromax IV ordered. Laboratory studies show troponin of 11.6 remaining labs consistent with chronic disease of anemia and end-stage renal disease. Cardiology notified regarding elevated troponin. Repeat EKG obtained with continued no acute changes. Heparin drip ordered. Patient complains of shor tness of breath but continues to deny any other complaints including chest pain. E paged. Spoke with Dr. guadalupe regarding patient's findings and need for admission for non-STEMI along with pneumonia. Orders received consults to cardiology and nephrology placed. Plan of care discussed with patient and spouse at bedside. Case discussed with Dr. Gallego. - Lab Data Result diagrams: 09/20/22 10:17 09/20/22 10:17 Lab Results 09/20/22 09/20/22 09/20/22 Range/Units 10:17 10:17 10:17 WBC 10.3 (3.8-10.6) k/uL RBC 2.44 L (4.30-5.90) m/uL Hgb 8.2 L D (13.0-17.5) gm/dL Hct 23.1 L (39.0-53.0) % MCV 95.0 (80.0-100.0) fL MCH 33.6 (25.0-35.0) pg MCHC 35.4 (31.0-37.0) g/dL RDW 16.1 H (11.5-15.5) % Plt Count 116 L (150-450) k/uL MPV 8.8 Neutrophils % 85 % Lymphocytes % 6 % Monocytes % 6 % Eosinophils % 0 % Basophils % 1 % Neutrophils # 8.8 H (1.3-7.7) k/uL Lymphocytes # 0.6 L (1.0-4.8) k/uL Monocytes # 0.6 (0-1.0) k/uL Eosinophils # 0.0 (0-0.7) k/uL Basophils # 0.1 (0-0.2) k/uL Poikilocytosis Slight Anisocytosis Slight PT (9.0-12.0) sec INR (<1.2) APTT (22.0-30.0) sec Sodium 134 L (137-145) mmol/L Potassium 4.2 (3.5-5.1) mmol/L Chloride 91 L (98-107) mmol/L Carbon Dioxide 28 (22-30) mmol/L Anion Gap 15 mmol/L BUN 31 H (9-20) mg/dL Creatinine 6.87 H (0.66-1.25) mg/dL Est GFR (CKD-EPI)AfAm 10 (>60 ml/min/1.73 sqM) Est GFR (CKD-EPI)NonAf 8 (>60 ml/min/1.73 sqM) Glucose 96 (74-99) mg/dL Plasma Lactic Acid Tenzin 1.0 (0.7-2.0) mmol/L Calcium 8.7 (8.4-10.2) mg/dL Total Bilirubin 1.2 (0.2-1.3) mg/dL AST 57 (17-59) U/L ALT 22 (4-49) U/L Alkaline Phosphatase 71 (38-126) U/L Troponin I (0.000-0.034) ng/mL NT-Pro-B Natriuret Pep pg/mL Total Protein 6.5 (6.3-8.2) g/dL Albumin 4.0 (3.5-5.0) g/dL Coronavirus (PCR) (Not Detectd) Influenza Type A RNA (Not Detectd) Influenza Type B (PCR) (Not Detectd) 09/20/22 09/20/22 09/20/22 Range/Units 10:17 10:17 10:17 WBC (3.8-10.6) k/uL RBC (4.30-5.90) m/uL Hgb (13.0-17.5) gm/dL Hct (39.0-53.0) % MCV (80.0-100.0) fL MCH (25.0-35.0) pg MCHC (31.0-37.0) g/dL RDW (11.5-15.5) % Plt Count (150-450) k/uL MPV Neutrophils % % Lymphocytes % % Monocytes % % Eosinophils % % Basophils % % Neutrophils # (1.3-7.7) k/uL Lymphocytes # (1.0-4.8) k/uL Monocytes # (0-1.0) k/uL Eosinophils # (0-0.7) k/uL Basophils # (0-0.2) k/uL Poikilocytosis Anisocytosis PT (9.0-12.0) sec INR (<1.2) APTT (22.0-30.0) sec Sodium (137-145) mmol/L Potassium (3.5-5.1) mmol/L Chloride (98-107) mmol/L Carbon Dioxide (22-30) mmol/L Anion Gap mmol/L BUN (9-20) mg/dL Creatinine (0.66-1.25) mg/dL Est GFR (CKD-EPI)AfAm (>60 ml/min/1.73 sqM) Est GFR (CKD-EPI)NonAf (>60 ml/min/1.73 sqM) Glucose (74-99) mg/dL Plasma Lactic Acid Tenzin (0.7-2.0) mmol/L Calcium (8.4-10.2) mg/dL Total Bilirubin (0.2-1.3) mg/dL AST (17-59) U/L ALT (4-49) U/L Alkaline Phosphatase (38-126) U/L Troponin I 11.600 H* (0.000-0.034) ng/mL NT-Pro-B Natriuret Pep 07835 pg/mL Total Protein (6.3-8.2) g/dL Albumin (3.5-5.0) g/dL Coronavirus (PCR) (Not Detectd) Influenza Type A RNA Not Detected (Not Detectd) Influenza Type B (PCR) Not Detected (Not Detectd) 09/20/22 09/20/22 Range/Units 10:17 12:05 WBC (3.8-10.6) k/uL RBC (4.30-5.90) m/uL Hgb (13.0-17.5) gm/dL Hct (39.0-53.0) % MCV (80.0-100.0) fL MCH (25.0-35.0) pg MCHC (31.0-37.0) g/dL RDW (11.5-15.5) % Plt Count (150-450) k/uL MPV Neutrophils % % Lymphocytes % % Monocytes % % Eosinophils % % Basophils % % Neutrophils # (1.3-7.7) k/uL Lymphocytes # (1.0-4.8) k/uL Monocytes # (0-1.0) k/uL Eosinophils # (0-0.7) k/uL Basophils # (0-0.2) k/uL Poikilocytosis Anisocytosis PT 11.7 (9.0-12.0) sec INR 1.1 (<1.2) APTT 29.9 (22.0-30.0) sec Sodium (137-145) mmol/L Potassium (3.5-5.1) mmol/L Chloride (98-107) mmol/L Carbon Dioxide (22-30) mmol/L Anion Gap mmol/L BUN (9-20) mg/dL Creatinine (0.66-1.25) mg/dL Est GFR (CKD-EPI)AfAm (>60 ml/min/1.73 sqM) Est GFR (CKD-EPI)NonAf (>60 ml/min/1.73 sqM) Glucose (74-99) mg/dL Plasma Lactic Acid Tenzin (0.7-2.0) mmol/L Calcium (8.4-10.2) mg/dL Total Bilirubin (0.2-1.3) mg/dL AST (17-59) U/L ALT (4-49) U/L Alkaline Phosphatase (38-126) U/L Troponin I (0.000-0.034) ng/mL NT-Pro-B Natriuret Pep pg/mL Total Protein (6.3-8.2) g/dL Albumin (3.5-5.0) g/dL Coronavirus (PCR) Not Detected (Not Detectd) Influenza Type A RNA (Not Detectd) Influenza Type B (PCR) (Not Detectd) - EKG Data -: EKG Interpreted by [place] EKG Comments: Sinus rhythm, nonspecific ST and T-wave abnormalities, ventricular rate 86 bpm, IL interval 187 ms, QRS duration 100 ms, QT/QTC 385/428 ms, PRT axes 30, 13, 73 Repeat EKG at 1250 shows sinus rhythm, left ventricular hypertrophy and STT wave changes, ventricular rate 80 bpm, IL interval 140 ms, QRS duration 105 ms, QT/QTC 410/447 ms, PRT axes 7, -2, 70 When compared to previous EKG there are: no significant change - Radiology Data Radiology results: report reviewed, image reviewed Chest x-ray two-view impression 1. Mild cardiomegaly and interstitial changes. 2 right midlung airspace disease and additional patchy infiltrates right lower lobe findings could represent atypical pulmonary edema versus multifocal pneumonia. Disposition Clinical Impression: Elevated troponin, Pneumonia Disposition: ADMITTED IP TO THIS HOSP Condition: Stable Is patient prescribed a controlled substance at d/c from ED?: No Time of Disposition: 13:01
[2022-09-20] MEDS ORDERED: ACETAMINOPHEN TAB 500 MG TAB PO STA (10:24)
[2022-09-20 11:06] LABS: Anisocytosis Slight; Basophils # (A) 0.1 k/uL (0-0.2); Basophils % (A) 1 %; Eosinophils % (A) 0 %; HCT 23.1 % (39.0-53.0); Lymphocytes # (A) 0.6 k/uL (1.0-4.8); Lymphocytes % (A) 6 %; MCH 33.6 pg (25.0-35.0); MCHC 35.4 g/dL (31.0-37.0); Mean Platelet Volume 8.8; Monocytes # (A) 0.6 k/uL (0-1.0); Monocytes % (A) 6 %; Neutrophils # (A) 8.8 k/uL (1.3-7.7); Neutrophils % (A) 85 %; Platelet Count 116 k/uL (150-450); Poikilocytosis Slight; RBC 2.44 m/uL (4.30-5.90); RDW 16.1 % (11.5-15.5); WBC 10.3 k/uL (3.8-10.6)
--- NOTE | 2022-09-20 11:24 | XR ---
EXAMINATION TYPE: XR chest 2V DATE OF EXAM: 09/20/2022 COMPARISON: 08/15/2022 HISTORY: 52 year-old male shortness of breath, difficulty breathing TECHNIQUE: AP and lateral views FINDINGS: The heart is mildly enlarged. Diffuse interstitial density. Confluent airspace opacity lateral right upper lobe marginated by the minor fissure and patchy additional changes in the right lower lobe. No pleural effusion. IMPRESSION: 1. Mild cardiomegaly and interstitial changes. Correlate for possible primary vascular congestion. 2. Right midlung airspace disease and additional patchy infiltrate in the right lower lobe. Findings could represent atypical pulmonary edema versus multifocal pneumonia.
[2022-09-20 11:25] LABS: Calcium 8.7 mg/dL (8.4-10.2); Potassium 4.2 mmol/L (3.5-5.1); Total Bilirubin 1.2 mg/dL (0.2-1.3); Total Protein 6.5 g/dL (6.3-8.2)
[2022-09-20] MEDS ORDERED: AZITHROMYCIN 500 MG in SODIUM CHLORIDE 0.9% 250 ML IVPB STA (11:33)
[2022-09-20 11:51] LABS: HGB 8.2 gm/dL (13.0-17.5)
[2022-09-20] MEDS ORDERED: HEPARIN SODIUM 1,000 UN/ML (10ML VL) IV PRN (11:52)
[2022-09-20 12:29] LABS: INR 1.1 (<1.2); Partial Thromboplastin Time 29.9 sec (22.0-30.0); Prothrombin Time 11.7 sec (9.0-12.0)
[2022-09-20] MEDS ORDERED: NALOXONE 0.4 MG/ML 1 ML VIAL IV PRN (12:36)
[2022-09-20] MEDS ORDERED: HEPARIN SODIUM 1,000 UN/ML (10ML VL) IV ONE (13:06)
[2022-09-20] MEDS: HEPARIN SOD,PORK IN 0.45% NACL 25,000 UNIT in 0.45% NACL 1 250ML.BAG IV SCH (13:11)
--- NOTE | 2022-09-20 13:24 | P.CRDCN ---
History of Present Illness Consult date: 09/20/22 History of present illness: HISTORY OF PRESENT ILLNESS: This is a 52-year-old male with a past medical history significant for hypertension, hyperlipidemia, end-stage renal disease on hemodialysis, COPD, current nicotine dependence smoking 1 pack per day, CVA, paroxysmal atrial fibrillation not on anticoagulation secondary to anemia and history of GI bleeding, seizure disorder, left lung empyema with left-sided VATS, and pneumonia. Patient follows in the office with Dr. Mayorga. We have been asked to see the patient in consultation for elevated troponin. Patient examined at the bedside. Patient presented to the hospital to chief complaint of shortness of breath. The patient states he has been short of breath for the past 2-3 days. He states his shortness of breath is usually with exertion. He denies having any chest pain or pressure. He reports having a cough with greenish colored phlegm. He reports having a fever at home for the past couple days with a T-max of 102F. At the time of my examination, the patient denies any shortness of breath or chest pain. The patient was found to have an elevated troponin of 11. He has been started on IV heparin. * EKG reveals sinus mechanism with T-wave inversions in V5V6 * Chest xray mild cardiomegaly and interstitial changes. Correlate for possible pulmonary vascular congestion. Right midlung airspace disease and additional patchy infiltrate in the right lower lobe. Findings could represent atypical edema versus multifocal pneumonia. * Laboratory data: WBC 10.3. Hemoglobin 8.2. Platelet count 116. Sodium 134. Potassium 4.2. BUN 31. Creatinine 6.87. Troponin 11.600. ProBNP 94,800. * Current home cardiac medication list has not been updated at the time of this dictation * Most recent echocardiogram obtained in February 2022 revealed ejection fraction 55-60%, mild MR, mild TR * Patient underwent Lexiscan stress test in 2019 revealing fixed inferior wall defect and evidence of global hypokinesis. Findings were suggestive of nonischemic cardiomyopathy REVIEW OF SYSTEMS: At the time of my exam: CONSTITUTIONAL: Denies fever or chills. HEENT: Denies blurred vision, vision changes, or eye pain. Denies hemoptysis CARDIOVASCULAR: Denies chest pain. Denies orthopnea. Denies PND. Denies palpitations RESPIRATORY: Denies shortness of breath. GASTROINTESTINAL: Denies abdominal pain. Denies nausea or vomiting. HEMATOLOGIC: Denies bleeding disorders. GENITOURINARY: Denies any blood in urine. SKIN: Denies pruitis. Denies rash. PHYSICAL EXAM: VITAL SIGNS: Reviewed. GENERAL: Well-developed in no acute distress. Skin color ashen lozano. HEENT: Head is normocephalic. Pupils are equal, round. Sclerae anicteric. Mucous membranes of the mouth are moist. Neck supple. No JVD or thyromegaly LUNGS: Respirations even and unlabored. Lungs with decreased air exchange and rhonchi noted bilaterally HEART: Regular rate and rhythm. S1 and S2 heard. Systolic murmur noted ABDOMEN: Soft. Nondistended. Nontender. EXTREMITIES: Normal range of motion. No clubbing or cyanosis. Peripheral pulses intact. No lower extremity edema NEUROLOGIC: Awake and alert. Oriented x 3. ASSESSMENT: Non-STEMI Pneumonia Febrile illness End-stage renal disease on hemodialysis COPD Hypertension Hyperlipidemia History of CVA Paroxysmal atrial fibrillation not on anticoagulation secondary to anemia and history of GI bleeding History of seizure disorder History of left lung empyema with previous left-sided VATS Nicotine dependence, patient smokes 1 pack per day PLAN: Continue IV heparin infusion Nephrology consulted for HD Add aspirin and statin Resume home cardiac medications when patients home medication list has been verified Trend troponins Further recommendations pending patient course Nurse practitioner note has been reviewed by physician. Signing provider agrees with the documented findings, assessment, and plan of care. Past Medical History Past Medical History: Atrial Fibrillation, Blood Disorder (Anemia and chronic thrombocytopenia), COPD (home O2 2-3L), CVA/TIA, Dialysis (End-stage renal disease on dialysis Saturday), Eye Disorder, GI Bleed, Hyperlipidemia, Hypertension, Renal Disease, Seizure Disorder Additional Past Medical History / Comment(s): Urolithiasis/nephrolithiasis, acute hypoxic respiratory failure after missed dialysis, lower GI bleed, duoden al ulcer, seizures with last seizures 12/2017, 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, pericardial effusion, spinal stenosis, DDD, chronic cervical and back pain, R eye "lazy", blood transfusion History of Any Multi-Drug Resistant Organisms: None Reported Past Surgical History: Bladder Surgery, Orthopedic Surgery Additional Past Surgical History / Comment(s): Hemorrhoidectomy, EGDs, colonoscopies, L sided Vats with decortication, pericardial window, hemodialysis fistula, cystoscopies/lithotripsies, bilateral renal stents-double J catheter. eye injection with steroid on 04/04 for eye "stroke" Past Anesthesia/Blood Transfusion Reactions: No Reported Reaction Additional Past Anesthesia/Blood Transfusion Reaction / Comment(s): Pt has received blood in past without reaction. Past Psychological History: No Psychological Hx Reported Smoking Status: Current every day smoker Past Alcohol Use History: None Reported Past Drug Use History: None Reported - Past Family History Father Family Medical History: Cancer, CVA/TIA Additional Family Medical History / Comment(s): Father had lymphoma. He had a CVA Mother Family Medical History: CVA/TIA Additional Family Medical History / Comment(s): Mother had a CVA. Sister(s) Additional Family Medical History / Comment(s): Patient has 5 sisters one has from an aneurysm in the brain. 2 sisters have history of kidney stones. Patient has one brother that was shot as cause of , he was on the kidney transplant list. Patient has 6 children with no major medical problems. Medications and Allergies Home Medications Medication Instructions Recorded Confirmed Type Sevelamer [Renvela] 1,600 mg PO DIRECTED 06/16/19 08/15/22 History Pantoprazole [Protonix] 40 mg PO BID@0700,1700 04/08/20 08/15/22 History hydrALAZINE HCL [Apresoline] 100 mg PO TID@0700,1200,1700 04/08/20 08/15/22 History Gabapentin [Neurontin] 100 mg PO BID@0700,1700 05/30/20 08/15/22 History amLODIPine [Norvasc] 5 mg PO BID@0700,1700 05/30/20 08/15/22 History Calcium Acetate [PhosLo] 667 mg PO TID-W/MEALS 12/15/20 08/15/22 History Furosemide [Lasix] 80 mg PO BID@0700,1700 01/03/22 08/15/22 History Acetaminophen with Codeine 1 tab PO BID PRN 08/15/22 08/15/22 History [Tylenol #4 Tablet] levETIRAcetam [Keppra] 750 mg PO BID@0700,1900 08/15/22 08/15/22 History Doxazosin [Cardura] 6 mg PO BID #120 tab 08/16/22 Rx Labetalol [Trandate] 400 mg PO BID #120 tab 08/16/22 Rx Allergies Allergy/AdvReac Type Severity Reaction Status Date / Time baclofen AdvReac "too Verified 08/15/22 18:00 strong/sedated" hydromorphone [From Dilaudid] AdvReac Hallucinati Verified 08/15/22 18:00 ons morphine AdvReac Hallucinati Verified 08/15/22 18:00 ons tramadol AdvReac Hallucinati Verified 08/15/22 18:00 ons Physical Exam Vitals: Vital Signs Temp Pulse Resp BP Pulse Ox 09/20/22 10:09 100.1 F H 86 20 118/67 95 Intake and Output 09/19/22 09/20/22 09/20/22 22:59 06:59 14:59 Other: Weight 65.771 kg Results 09/20/22 10:17 09/20/22 10:17 Cardiac Enzymes 09/20/22 09/20/22 Range/Units 10:17 10:17 AST 57 (17-59) U/L Troponin I 11.600 H* (0.000-0.034) ng/mL Coagulation 09/20/22 Range/Units 12:05 PT 11.7 (9.0-12.0) sec APTT 29.9 (22.0-30.0) sec CBC 09/20/22 Range/Units 10:17 WBC 10.3 (3.8-10.6) k/uL RBC 2.44 L (4.30-5.90) m/uL Hgb 8.2 L D (13.0-17.5) gm/dL Hct 23.1 L (39.0-53.0) % Plt Count 116 L (150-450) k/uL Comprehensive Metabolic Panel 09/20/22 Range/Units 10:17 Sodium 134 L (137-145) mmol/L Potassium 4.2 (3.5-5.1) mmol/L Chloride 91 L (98-107) mmol/L Carbon Dioxide 28 (22-30) mmol/L BUN 31 H (9-20) mg/dL Creatinine 6.87 H (0.66-1.25) mg/dL Glucose 96 (74-99) mg/dL Calcium 8.7 (8.4-10.2) mg/dL AST 57 (17-59) U/L ALT 22 (4-49) U/L Alkaline Phosphatase 71 (38-126) U/L Total Protein 6.5 (6.3-8.2) g/dL Albumin 4.0 (3.5-5.0) g/dL Current Medications Generic Name Dose Route Start Last Admin Trade Name Lambert PRN Reason Stop Dose Admin Acetaminophen 650 mg 09/20/22 12:36 Acetaminophen Tab 325 Mg Tab PO Q6HR PRN Mild Pain or Fever > 100.5 Heparin Sodium (Porcine) 0 unit 09/20/22 11:52 Heparin Sodium 1,000 Un/Ml (10ml Vl) IV PER PROTOCOL PRN Low PTT Protocol Heparin Sodium/Sodium Chloride 250 mls @ 11.839 mls/hr 09/20/22 12:00 09/20/22 13:11 25,000 unit/ Sodium Chloride IV 18 units/kg/hr .[id number] KRISTY 11.839 mls/hr Administration Protocol 18 UNITS/KG/HR Naloxone HCl 0.2 mg 09/20/22 12:36 Naloxone 0.4 Mg/Ml 1 Ml Vial IV Q2M PRN Opioid Reversal Intake and Output 09/19/22 09/20/22 09/20/22 22:59 06:59 14:59 Other: Weight 65.771 kg Patient Weight 09/21/22 06:59 Weight 65.771 kg 09/20/22 10:17 09/20/22 10:17
[2022-09-20] MEDS: ASPIRIN 81 MG PO SCH (14:50)
--- NOTE | 2022-09-20 17:24 | CA ---
Transthoracic Echo Report Name: Jose Eng Age: 52 Gender: M : 1970 Exam Date: 09/20/2022 14:22 Exam Location: [place] [facility] Ht (in): 64 Wt (lb): 145 Ordering Physician: Mimi Mina Attending/Referring Phys: [id number], Leopoldo Machine Deburrer Mamie Cruz RDCS Procedure CPT: Indications: nstemi Cardiac Hx: Technical Quality: Fair Contrast 1: Total Dose (mL): Contrast 2: Total Dose (mL): MEASUREMENTS (Male / Female) Normal Values 2D ECHO LV Diastolic Diameter PLAX 5.2 cm 4.2 - 5.9 / 3.9 - 5.3 cm LV Systolic Diameter PLAX 3.8 cm IVS Diastolic Thickness 1.4 cm 0.6 - 1.0 / 0.6 - 0.9 cm LVPW Diastolic Thickness 1.5 cm 0.6 - 1.0 / 0.6 - 0.9 cm LV Relative Wall Thickness 0.6 RV Internal Dim ED PLAX 4.2 cm LV Diastolic Volume MOD BP 137.5 cm??? 67 - 155 / 56 - 104 cm??? LV Systolic Volume MOD BP 74.0 cm??? 22 - 58 / 19 - 49 cm??? LV Ejection Fraction MOD BP 46.2 % >= 55 % LV Cardiac Index MOD BP 2890.9 cm???/min???m??? LV Diastolic Volume MOD 4C 118.3 cm??? LV Systolic Volume MOD 4C 59.0 cm??? LV Ejection Fraction MOD 4C 50.2 % LV Cardiac Index MOD 4C 2703.4 cm???/min???m??? LV Diastolic Length 4C 8.9 cm LV Systolic Length 4C 7.5 cm LV Diastolic Volume MOD 2C 155.4 cm??? LV Systolic Volume MOD 2C 91.1 cm??? LV Ejection Fraction MOD 2C 41.4 % LV Cardiac Index MOD 2C 2927.2 cm???/min???m??? LV Diastolic Length 2C 9.2 cm LV Systolic Length 2C 7.9 cm LA Volume 81.6 cm??? 18 - 58 / 22 - 52 cm??? M-MODE Aortic Root Diameter MM 3.1 cm LA Systolic Diameter MM 3.6 cm LA Ao Ratio MM 1.2 DOPPLER AV Peak Velocity 187.0 cm/s AV Peak Gradient 14.0 mmHg LVOT Peak Velocity 140.0 cm/s LVOT Peak Gradient 7.8 mmHg MV Area PHT 4.5 cm??? Mitral E Point Velocity 105.2 cm/s Mitral A Point Velocity 67.9 cm/s Mitral E to A Ratio 1.5 MV Deceleration Time 170.0 ms MV E' Velocity 8.8 cm/s Mitral E to MV E' Ratio 12.0 TR Peak Velocity 248.8 cm/s TR Peak Gradient 24.8 mmHg Right Ventricular Systolic Press 27.5 mmHg FINDINGS Left Ventricle Mildly increased septal wall thickness. Moderately increased left ventricular systolic volume. Mildly decreased left ventricular ejection fraction. Left ventricular ejection fraction is estimated at 45-50 %. Right Ventricle Moderate right ventricular dilatation. Right ventricular systolic pressure within normal limits. Right Atrium Normal right atrial size. Left Atrium Severely increased left atrial volume. Mitral Valve Structurally normal mitral valve. Mitral valve thickened. Moderate mitral annular calcification. [id number] mitral regurgitation. Eccentric posteriorly directed jet. Aortic Valve Trileaflet aortic valve. Diffuse thickening (sclerosis) of the aortic valve cusps without reduced excursion. No aortic stenosis. No aortic regurgitation. Tricuspid Valve Structurally normal tricuspid valve. Mild tricuspid regurgitation. Pulmonic Valve Trace pulmonic regurgitation. Pericardium No pericardial effusion. Aorta Normal size aortic root and proximal ascending aorta. CONCLUSIONS Mild LV systolic dysfunction Moderate mitral annular calcification with mild to moderate mitral regurgitation Previewed by: Dr. Connor Crowe MD (Electronically Signed) Final Date: 20 September 2022 17:23
[2022-09-20] MEDS: IPRATROPIUM-ALBUTEROL 3 ML NEB INHALATION PRN (17:58)
[2022-09-20] MEDS: IPRATROPIUM-ALBUTEROL 3 ML NEB INHALATION SCH (19:38)
[2022-09-20] MEDS: ATORVASTATIN 80 MG TAB PO SCH (20:58)
--- NOTE | 2022-09-20 21:52 | P.HPIM ---
History of Present Illness H&P Date: 09/20/22 Chief Complaint: shortness of breath Patient is a 52-year-old male with a known history of hypertension, hyperlipidemia, seizure disorder, ESRD on hemodialysis on Saturday and Saturday, history of CVA/TIA, prior history of paroxysmal atrial fibrillation not on anticoagulation due to GI bleed, history of left sided VATS and currently everyday smoker presents to ER with complaints of worsening shortness of for the past 2 to 3 days. Patient has been having exertional dyspnea. Also complains of cough with greenish sputum production and having fever at home.Patient is somewhat poor historian. Admission 100.1. Patient is requiring oxygen at 3 L via nasal cannula. EMS reports fever of T-max of 102.3. Patient had last hemodialysis on Saturday. Patient did have prior history of recurrent pneumonia. Otherwise denied any complaints of chest pain. No headache or dizziness or lightheadedness. No nausea vomiting abdominal pain or diarrhea. Patient is also having chronic back pain and spinal stenosis with degenerative disc disease. Chest x-ray showed mild cardiomegaly and interstitial changes. Correlate for possible pulmonary vascular congestion. Right midlung airspace disease and additional patchy infiltrate in the right lower lobe. Findings could represent atypical pulmonary edema versus multifocal pneumonia. EKG showed showed sinus rhythm with left ventricular hypertrophy. Laboratory data showed WBC 10.3 hemoglobin 8.2 and platelets 116 Sodium 134 potassium 4.2 chloride 91 bicarb is 28 BUN 31 creatinine 6.87 Liver enzymes are not elevated and troponin level is 11.6, 18.4 proBNP [id number] Coronavirus PCR and influenza a and B not detected. Review of Systems Constitutional: Patient does complain of fever and no chills.. Generalized weakness. Abdomen: Patient denied any nausea or vomiting or abd. pain Cardiovascular: Patient denies any chest pain. Patient does have short of breath no palpitations. Respiratory: Patient complains of cough with green sputum production and shortness of breath. Neurologic: Patient denied any numbness or tingling headache. Musculoskeletal: Patient denies any complaints of joint swelling or deformity. Skin: Negative Psychiatric: Negative Endocrine: No heat or cold intolerance. No recent weight gain. Genitourinary: No dysuria or hematuria. All other 14 point ROS negative except the above Past Medical History Past Medical History: Atrial Fibrillation, Blood Disorder (Anemia and chronic thrombocytopenia), COPD (home O2 2-3L), CVA/TIA, Dialysis (End-stage renal disease on dialysis Saturday), Eye Disorder, GI Bleed, Hyper lipidemia, Hypertension, Renal Disease, Seizure Disorder Additional Past Medical History / Comment(s): Urolithiasis/nephrolithiasis, acute hypoxic respiratory failure after missed dialysis, lower GI bleed, duodenal ulcer, seizures with last seizures 12/2017, 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, pericardial effusion, spinal stenosis, DDD, chronic cervical and back pain, R eye "lazy", blood transfusion History of Any Multi-Drug Resistant Organisms: None Reported Past Surgical History: Bladder Surgery, Orthopedic Surgery Additional Past Surgical History / Comment(s): Hemorrhoidectomy, EGDs, colonoscopies, L sided Vats with decortication, pericardial window, hemodialysis fistula, cystoscopies/lithotripsies, bilateral renal stents-double J catheter. eye injection with steroid on 04/04 for eye "stroke" Past Anesthesia/Blood Transfusion Reactions: No Reported Reaction Additional Past Anesthesia/Blood Transfusion Reaction / Comment(s): Pt has received blood in past without reaction. Past Psychological History: No Psychological Hx Reported Smoking Status: Current every day smoker Past Alcohol Use History: None Reported Past Drug Use History: None Reported - Past Family History Father Family Medical History: Cancer, CVA/TIA Additional Family Medical History / Comment(s): Father had lymphoma. He had a CVA Mother Family Medical History: CVA/TIA Additional Family Medical History / Comment(s): Mother had a CVA. Sister(s) Additional Family Medical History / Comment(s): Patient has 5 sisters one has from an aneurysm in the brain. 2 sisters have history of kidney stones. Patient has one brother that was shot as cause of , he was on the kidney transplant list. Patient has 6 children with no major medical problems. Medications and Allergies Home Medications Medication Instructions Recorded Confirmed Type Sevelamer [Renvela] 1,600 mg PO DIRECTED 06/16/19 09/20/22 History Pantoprazole [Protonix] 40 mg PO BID@0700,1700 04/08/20 09/20/22 History hydrALAZINE HCL [Apresoline] 100 mg PO TID@0700,1200,1700 04/08/20 09/20/22 History Gabapentin [Neurontin] 100 mg PO BID@0700,1700 05/30/20 09/20/22 History amLODIPine [Norvasc] 5 mg PO BID@0700,1700 05/30/20 09/20/22 History Calcium Acetate [PhosLo] 667 mg PO TID-W/MEALS 12/15/20 09/20/22 History Furosemide [Lasix] 80 mg PO BID@0700,1700 01/03/22 09/20/22 History Doxazosin [Cardura] 6 mg PO BID #120 tab 08/16/22 09/20/22 Rx Labetalol [Trandate] 200 mg PO BID 09/20/22 09/20/22 History Lactulose [Cephulac] 20 gm PO DAILY PRN 09/20/22 09/20/22 History Patiromer Calcium Sorbitex 1 packet PO DAILY 09/20/22 09/20/22 History [Veltassa] levETIRAcetam [Keppra] 1,000 mg PO BID@0700,1900 09/20/22 09/20/22 History methocarbamoL [Robaxin-750] 750 mg PO BID PRN 09/20/22 09/20/22 History Allergies Allergy/AdvReac Type Severity Reaction Status Date / Time baclofen AdvReac "too Verified 08/15/22 18:00 strong/sedated" hydromorphone [From Dilaudid] AdvReac Hallucinati Verified 08/15/22 18:00 ons morphine AdvReac Hallucinati Verified 08/15/22 18:00 ons tramadol AdvReac Hallucinati Verified 08/15/22 18:00 ons Physical Exam Vitals: Vital Signs Temp Pulse Pulse Resp BP BP Pulse Ox 09/20/22 19:54 85 09/20/22 19:38 82 09/20/22 18:10 79 09/20/22 18:02 94 L 09/20/22 17:59 81 09/20/22 16:00 98.2 F 76 20 129/76 92 L 09/20/22 15:01 98.7 F 75 20 107/65 99 09/20/22 10:09 100.1 F H 86 20 118/67 95 Intake and Output 09/20/22 09/20/22 09/20/22 06:59 14:59 22:59 Other: Weight 65.771 kg PHYSICAL EXAMINATION: Patient is lying in the bed comfortably, no acute distress, awake alert and oriented.. Appears lethargic. HEENT: Normocephalic. Neck is supple. Pupils reactive. Nostrils clear. Oral cavity is moist. Neck reveals no JVD, carotid bruits, or thyromegaly. CHEST EXAMINATION: Trachea is central. Symmetrical expansion bibasilar scattered rhonchi. Nonlabored breathing.. CARDIAC: Normal S1, S2 with no gallops. No murmurs ABDOMEN: Soft. Bowel sounds present. Nontender. No organomegaly. No abdominal bruits. Extremities: reveal no edema. No clubbing or cyanosis Neurologically awake, alert, oriented x2-3 with well-coordinated movements. No gross focal deficits noted Skin: No rash or skin lesions. Psychiatric: Coperative. Nonsuicidal, Musculoskeletal: No joint swelling or deformity. Normal range of motion. Results CBC & Chem 7: 09/20/22 10:17 09/20/22 10:17 Labs: Abnormal Lab Results - Last 24 Hours (Table) 09/20/22 09/20/22 09/20/22 Range/Units 10:17 10:17 10:17 RBC 2.44 L (4.30-5.90) m/uL Hgb 8.2 L D (13.0-17.5) gm/dL Hct 23.1 L (39.0-53.0) % RDW 16.1 H (11.5-15.5) % Plt Count 116 L (150-450) k/uL Neutrophils # 8.8 H (1.3-7.7) k/uL Lymphocytes # 0.6 L (1.0-4.8) k/uL APTT (22.0-30.0) sec Sodium 134 L (137-145) mmol/L Chloride 91 L (98-107) mmol/L BUN 31 H (9-20) mg/dL Creatinine 6.87 H (0.66-1.25) mg/dL Troponin I 11.600 H* (0.000-0.034) ng/mL 09/20/22 09/20/22 Range/Units 14:38 20:24 RBC (4.30-5.90) m/uL Hgb (13.0-17.5) gm/dL Hct (39.0-53.0) % RDW (11.5-15.5) % Plt Count (150-450) k/uL Neutrophils # (1.3-7.7) k/uL Lymphocytes # (1.0-4.8) k/uL APTT 51.4 H (22.0-30.0) sec Sodium (137-145) mmol/L Chloride (98-107) mmol/L BUN (9-20) mg/dL Creatinine (0.66-1.25) mg/dL Troponin I 18.400 H* (0.000-0.034) ng/mL Thrombosis Risk Factor Assmnt - DVT/VTE Prophylaxis DVT/VTE Prophylaxis: Pharmacologic Prophylaxis ordered - Choose All That Apply Each Factor Represents 1 point: Age 41-60 years, Varicose veins Thrombosis Risk Factor Assessment Total Risk Factor Score: 2 Thrombosis Risk Factor Assessment Level: Low Risk Assessment and Plan Assessment: Worsening shortness of breath Secondary to pulmonary vascular congestion and pneumonia Acute right lower lobe multifocal pneumonia Acute non-ST elevated AR Elevated troponin level Elevated BNP level ESRD on hemodialysis Saturday and Saturday Paroxysmal atrial fibrillation not on anticoagulation due to history of prior GI bleed Hypertension Chronic thrombocytopenia History of seizure disorder Hyperlipidemia History of left thalamus CVA no residual focal deficits Currently everyday smoker DVT prophylaxis Plan: Patient will be continued on telemetry monitoring. Follow-up serial EKG and troponins. Patient will be started on heparin drip and cardiology was consulted due to elevated troponin level. Patient will be current antibiotics ceftriaxone azithromycin. Sputum culture and blood cultures were ordered. Blood pressure medications on hold due to patient being hypotensive. Continue with duo nebs and symptomatic management and pain management. Follow- up closely. Cardiology and nephrology was consulted. Prognosis is guarded at this time. Time with Patient: Greater than 30
[2022-09-20] MEDS ORDERED: LACTULOSE 20 GM/30 ML CUP PO PRN (22:06)
[2022-09-21] MEDS: SEVELAMER 800 MG TAB PO SCH ×6 (00:22→20:24)
[2022-09-21] MEDS: levETIRAcetam 500 MG TAB PO SCH ×3 (00:24→20:22)
[2022-09-21] MEDS: IPRATROPIUM-ALBUTEROL 3 ML NEB INHALATION PRN ×2 (00:46→06:08)
[2022-09-21] MEDS ORDERED: ATORVASTATIN 80 MG TAB PO STA (06:48)
[2022-09-21] MEDS ORDERED: ASPIRIN 325 MG TAB PO STA (06:48)
[2022-09-21] MEDS ORDERED: NITROGLYCERIN SL TABS 0.4 MG TAB SUBLINGUAL PRN (06:48)
[2022-09-21] MEDS: PANTOPRAZOLE 40 MG TABLET PO SCH ×3 (06:48→17:24)
[2022-09-21] MEDS: GABAPENTIN 100 MG CAP PO SCH ×2 (06:59→20:22)
[2022-09-21] MEDS: AZITHROMYCIN 500 MG TAB PO SCH (06:59)
[2022-09-21] MEDS ORDERED: HEPARIN SODIUM,PORCINE 10,000 UNIT in SODIUM CHLORIDE 0.9% 1,000 ML IRRIGATION PRN (07:00)
[2022-09-21] MEDS ORDERED: HEPARIN SODIUM,PORCINE 2,500 UNIT in SODIUM CHLORIDE 0.9% 250 ML IRRIGATION PRN (07:00)
[2022-09-21] MEDS: IPRATROPIUM-ALBUTEROL 3 ML NEB INHALATION SCH ×4 (08:46→20:11)
[2022-09-21 09:08] LABS: Anisocytosis Slight; Basophils # (A) 0.1 k/uL (0-0.2); Basophils % (A) 1 %; Eosinophils # (A) 0.1 k/uL (0-0.7); Eosinophils % (A) 1 %; HCT 23.1 % (39.0-53.0); HGB 7.8 gm/dL (13.0-17.5); Lymphocytes # (A) 0.7 k/uL (1.0-4.8); Lymphocytes % (A) 8 %; MCHC 33.6 g/dL (31.0-37.0); MCV 95.3 fL (80.0-100.0); Mean Platelet Volume 8.9; Monocytes # (A) 0.4 k/uL (0-1.0); Monocytes % (A) 4 %; Neutrophils # (A) 6.9 k/uL (1.3-7.7); Neutrophils % (A) 83 %; Platelet Count 146 k/uL (150-450); Poikilocytosis Moderate; RBC 2.42 m/uL (4.30-5.90); RDW 16.7 % (11.5-15.5); WBC 8.3 k/uL (3.8-10.6)
[2022-09-21 09:38] LABS: Partial Thromboplastin Time 49.2 sec (22.0-30.0)
[2022-09-21 09:43] LABS: Albumin 3.5 g/dL (3.5-5.0); Potassium 4.3 mmol/L (3.5-5.1); Total Bilirubin 1.1 mg/dL (0.2-1.3); Total Protein 5.9 g/dL (6.3-8.2)
[2022-09-21] MEDS: HEPARIN SOD,PORK IN 0.45% NACL 25,000 UNIT in 0.45% NACL 1 250ML.BAG IV SCH ×2 (10:18→15:09)
--- NOTE | 2022-09-21 11:11 | P.NPCON ---
History of Present Illness - Reason for Consult end stage renal disease - History of Present Illness Patient is a 52-year-old male with end-stage renal disease on hemodialysis on a Saturday schedule. Patient is admitted to the hospital with complaints of shortness of breath. Patient is also had cough and fever of 100.1F. He states that he did not miss any of his dialysis treatments. Chest x-ray shows evidence of pulmonary vascular congestion and interstitial changes. Coronavirus PCR and influenza A and B testing is negative Review of Systems As per HPI Past Medical History Past Medical History: Atrial Fibrillation, Blood Disorder (Anemia and chronic thrombocytopenia), COPD (home O2 2-3L), CVA/TIA, Dialysis (End-stage renal disease on dialysis Saturday), Eye Disorder, GI Bleed, Hyperlipidemia, Hypertension, Renal Disease, Seizure Disorder Additional Past Medical History / Comment(s): Urolithiasis/nephrolithiasis, acute hypoxic respiratory failure after missed dialysis, lower GI bleed, duodenal ulcer, seizures with last seizures 12/2017, 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, pericardial effusion, spinal stenosis, DDD, chronic cervical and back pain, R eye "lazy", blood transfusion History of Any Multi-Drug Resistant Organisms: None Reported Past Surgical History: Bladder Surgery, Orthopedic Surgery Additional Past Surgical History / Comment(s): Hemorrhoidectomy, EGDs, colonoscopies, L sided Vats with decortication, pericardial window, hemodialysis fistula, cystoscopies/lithotripsies, bilateral renal stents-double J catheter. eye injection with steroid on 04/04 for eye "stroke" Past Anesthesia/Blood Transfusion Reactions: No Reported Reaction Additional Past Anesthesia/Blood Transfusion Reaction / Comment(s): Pt has received blood in past without reaction. Past Psychological History: No Psychological Hx Reported Smoking Status: Current every day smoker Past Alcohol Use History: None Reported Past Drug Use History: None Reported - Past Family History Father Family Medical History: Cancer, CVA/TIA Additional Family Medical History / Comment(s): Father had lymphoma. He had a CVA Mother Family Medical History: CVA/TIA Additional Family Medical History / Comment(s): Mother had a CVA. Sister(s) Additional Family Medical History / Comment(s): Patient has 5 sisters one has from an aneurysm in the brain. 2 sisters have history of kidney stones. Patient has one brother that was shot as cause of , he was on the kidney transplant list. Patient has 6 children with no major medical problems. Medications and Allergies Home Medications Medication Instructions Recorded Confirmed Type Sevelamer [Renvela] 1,600 mg PO DIRECTED 06/16/19 09/20/22 History Pantoprazole [Protonix] 40 mg PO BID@0700,1700 04/08/20 09/20/22 History hydrALAZINE HCL [Apresoline] 100 mg PO TID@0700,1200,1700 04/08/20 09/20/22 History Gabapentin [Neurontin] 100 mg PO BID@0700,1700 05/30/20 09/20/22 History amLODIPine [Norvasc] 5 mg PO BID@0700,1700 05/30/20 09/20/22 History Calcium Acetate [PhosLo] 667 mg PO TID-W/MEALS 12/15/20 09/20/22 History Furosemide [Lasix] 80 mg PO BID@0700,1700 01/03/22 09/20/22 History Doxazosin [Cardura] 6 mg PO BID #120 tab 08/16/22 09/20/22 Rx Labetalol [Trandate] 200 mg PO BID 09/20/22 09/20/22 History Lactulose [Cephulac] 20 gm PO DAILY PRN 09/20/22 09/20/22 History Patiromer Calcium Sorbitex 1 packet PO DAILY 09/20/22 09/20/22 History [Veltassa] levETIRAcetam [Keppra] 1,000 mg PO BID@0700,1900 09/20/22 09/20/22 History methocarbamoL [Robaxin-750] 750 mg PO BID PRN 09/20/22 09/20/22 History Allergies Allergy/AdvReac Type Severity Reaction Status Date / Time baclofen AdvReac "too Verified 08/15/22 18:00 strong/sedated" hydromorphone [From Dilaudid] AdvReac Hallucinati Verified 08/15/22 18:00 ons morphine AdvReac Hallucinati Verified 08/15/22 18:00 ons tramadol AdvReac Hallucinati Verified 08/15/22 18:00 ons Physical Exam Vitals: Vital Signs Temp Pulse Pulse Resp BP BP Pulse Ox 09/21/22 07:50 99.6 F 89 20 127/74 91 L 09/21/22 06:19 94 09/21/22 06:08 92 09/21/22 06:05 22 93 L 09/21/22 04:00 99.7 F H 82 20 135/79 92 L 09/21/22 01:48 84 22 09/21/22 00:55 92 09/21/22 00:46 90 09/21/22 00:00 99.9 F H 84 22 128/70 93 L 09/20/22 20:00 99.7 F H 78 18 128/64 94 L 09/20/22 19:54 85 09/20/22 19:38 82 09/20/22 18:10 79 09/20/22 18:02 94 L 09/20/22 17:59 81 09/20/22 16:00 98.2 F 76 20 129/76 92 L 09/20/22 15:01 98.7 F 75 20 107/65 99 Intake and Output 09/20/22 09/21/22 09/21/22 22:59 06:59 14:59 Intake Total 250 Output Total 100 Balance 150 Intake: Intake, IV Titration 250 Amount Heparin Sod,Pork in 0.45% 250 NaCl 25,000 unit In 0.45 % NaCl 1 250ml.bag @ 18 UNITS/KG/HR 11.839 mls/hr IV .[id number] Rx#: [id number] Output: Urine 100 Other: # Voids 0 0 # Bowel Movements 0 0 Weight 63.5 kg Patient is awake, comfortable, no acute distress. Currently he is heading into the restroom. He is mildly short of breath 1+ edema noted in his lower extremities Lungs the heart not examined [employer] exam grossly intact Results - Lab Results Most recent lab results Calcium 8.0 mg/dL (8.4-10.2) L 09/21/22 08:31 09/21/22 08:31 09/21/22 08:31 Assessment and Plan Assessment: . End-stage renal disease on hemodialysis on a Saturday schedule 2. Volume overload 3. Possible pneumonia 4. CK D mineral bone disorder 5. History of CVA/TIA 6. Paroxysmal A. fib not on anticoagulation due to GI bleed 7. History of seizure disorder Plan: Hemodialysis today Continue with phosphate binders Repeat hemodialysis in a.m. for ultrafiltration.
--- NOTE | 2022-09-21 11:38 | CDI ---
ATTENTION: The Clinical Documentation Specialists (CDI) and [facility] Coding Staff appreciate your assistance in clarifying documentation. Please respond to the clarification below the line at the bottom and electronically sign. The CDI & [facility] Coding staff will review the response and follow-up if needed. Please note: Queries are made part of the Legal Health Record. If you have any questions, please contact the author of this message via ITS. Dr. Trenton Bentley Per the H&P, this patient has home oxygen 2-3L NC. Based on this information and the findings below, is there an additional diagnosis that is clinically appropriate for this patient? Patient history/risk factors: PMH COPD, ESRD, CVA Clinical Indicators: Current smoker Patient reports productive cough, SOB 09/20 1600 02 Sat 92% on 4L NC, RR 20, HR 76 09/21 0750O2 sat 91% on 4.5 L NC, RR 20, HR 89 Treatment: O2 NC 2L ordered 09/20 Duoneb QID and PRN Is there an additional diagnosis that is clinically appropriate for this patient? [ x ] Chronic hypoxic respiratory failure [ ] Other, please specify [ ] Unable to determine MTDD
[2022-09-21] MEDS ORDERED: fentaNYL (PF) 50 MCG/ML 2 ML AMP ONE (11:58)
[2022-09-21] MEDS ORDERED: IV FLUID CONTINUATION 1,000 ML IV ONE (12:09)
[2022-09-21] MEDS ORDERED: fentaNYL (PF) 50 MCG/ML 2 ML AMP IV ONE (12:39)
[2022-09-21] MEDS ORDERED: LIDOCAINE 1% INJ 10MG/ML (30 ML VIAL-PF) SQ ONE (12:41)
[2022-09-21] MEDS ORDERED: IOPAMIDOL-370 100ML BTL INJ ONE (12:55)
[2022-09-21] MEDS ORDERED: RX INFO: IV CONTRAST WAS GIVEN 1 EACH MISC MISCELLANE PRN (13:02)
--- NOTE | 2022-09-21 13:11 | P.CARDCATH ---
Date of Procedure: 09/21/22 Description of Procedure: Cardiac Catheterization: The patient is a 52-year-old male with a known history of end-stage renal disease, chronic tobacco use who presented to symptoms of acute dyspnea and evidence of troponin elevation consistent with non-STEMI. Recommendations were made regarding cardiac catheterization, the risks and the complications were discussed with the patient who is in full understanding and agreement. Procedure Description: Patient was brought to pathology laboratory technologist in fasting semi-sedated state after receiving Fentanyl and Benadryl achieiving moderate conscious sedated state. Using Xylocaine Anesthesia and Seldinger technique, a 6-Honduran sheath was introduced in the right femoral artery . Subsequently, selective coronary angiography was performed using a 6-Honduran 4 bend Jesenia catheter. Multiple views of the coronary artery including hemiaxial views were obtained. The right Jesenia catheter was used to cross the aortic valve and LVEDP was calculated. Following that, catheter and sheath were removed. Hemostasis was obtained with deployment of Angio-Seal band . There was no immediate complication. Patient was returned to room in stable condition. Findings: Fluoroscopy: There is significant calcifications of the coronary arteries including the left main Left main: This is a large size vessel, calcified trifurcating into LAD, left circumflex and ramus intermedius. The distal left main has a 70% eccentric lesion LAD: This is a large size vessel, reaching to the apex with a wraparound apex segment. Giving rise to 2 diagonal branch. The LAD has no high-grade stenosis Left circumflex: Is a nondominant large size vessel, giving rise to 3 obtuse marginal branch, the left circumflex has mild disease of 20- 30% proximal and mid area. Ramus intermedius: This is a large size vessel reaching to the apical lateral wall, the ramus intermedius has mild intimal disease. RCA: This is a dominant large sized vessel, bifurcating into PDA and PLV, calcified. The mid RCA has 20-30% plaque different segments. Left Ventriculogram: Not performed Hemodynamics: There was no gradient across the aortic valve , LVEDP was 14-18 mmHg Conclusion: 1. Calcified coronary arteries 2. Significant disease in the distal left main 3. Mild disease in the left circumflex and RCA 4. Right dominance Recommendations: I will obtain consultation from the cardiovascular team for coronary artery bypass grafting and depending on the decision the patient will proceed either with CABG or high risk PCI of the distal left main.. The findings and the recommendations were discussed with the patient and the family and they were in full understanding and agreement. Duration of sedation is 13 minutes.
[2022-09-21 13:20] LABS: INR 1.1 (<1.2); Prothrombin Time 11.5 sec (9.0-12.0)
[2022-09-21 14:21] LABS: Glucose,Whole Blood 87 mg/dL (70-110)
[2022-09-21] MEDS: METOPROLOL TARTRATE 25 MG TAB PO SCH ×2 (15:08→20:22)
--- NOTE | 2022-09-21 16:59 | P.GSCN ---
History of Present Illness Consult date: 09/21/22 Reason for Consult: Coronary artery disease with left main disease, non-ST elevated myocardial infarction this admission. Requesting physician: Alexi Mayorga History of present illness: This is a 52-year-old gentleman who follows on an outpatient basis with Dr. Jaylen Holguin for his primary care service. He has a past medical history significant for hypertension, hyperlipidemia, end-stage renal disease on hemodialysis, chronic ongoing nicotine dependence in which he smokes 1 pack of cigarettes per day, CVA in 2018 with no residual deficits, chronic obstructive pulmonary disease in which he is oxygen dependent on 2-3 L nasal cannula at home, paroxysmal atrial fibrillation not on anticoagulation secondary to anemia and history of GI bleeding, history of thrombocytopenia, history of left-sided empyema and large pericardial effusion with left-sided VATS with decortication and pericardial window in January [address] Rosa Solis, history of left-sided pleural effusion with left-sided thoracentesis in January 2018, spinal stenosis, degenerative disc disorder, chronic cervical and back pain and seizure disorder. On 09/20/2022 the patient presented to the emergency department here at [facility] via EMS with complaints of worsening shortness of breath over 2 day period. He also reports that he had a fever as high as 102.3F, and a productive cough. He denies any nausea, vomiting, diarrhea, constipation, headache, dizziness, abdominal pain, chest pain, presyncope or syncope. Initial laboratory results showed a WBC count of 10.3, hemoglobin 8.2, hematocrit 23.1, platelets 116, sodium 134, potassium 4.2, chloride 91, CO2 28, BUN 31, creatinine 6.87, glucose 96, plasma lactic acid 1.0, AST 57, ALT 22, initial troponins were 11.60 and subsequent troponins were elevated as high as 23.00. His proBNP was also elevated at 94,800 and his COVID-19, influenza type A and B screening came back not detected. A 12-lead EKG was completed which showed normal sinus rhythm with T-wave inversions in V5 and V6 with a heart rate of 86 BPM. A chest x-ray was completed which showed mild cardiomegaly and interstitial changes, correlate for possibility of primary vascular congestion, right mid lung airspace disease and additional patchy infiltrates in the right lower lobe, findings could represent atypical pulmonary edema versus multifocal pneumonia. The patient was admitted to the hospital for further evaluation and cardiology was consulted due to his presenting symptoms and elevated troponins which ruled him in for a non-ST elevated myocardial infarction. A transthoracic 2-D echocardiogram was completed which demonstrated mildly increased septal wall thickness, moderately increased left ventricular systolic volume, mildly decreased left ventricular ejection fraction with a left ventricular ejection fraction estimated at 45-50%, moderate mitral valve annular calcification, mild to moderate mitral valve regurgitation with an eccentric posteriorly directed jet, a trileaflet aortic valve with no aortic valve stenosis or aortic valve regurgitation, mild tricuspid valve regurgitation, trace pulmonic valve regurgitation and no pericardial effusion. Due to the patient's presenting symptoms and elevated troponins a cardiac catheterization was recommended and was completed today by Dr. Mayorga which demonstrated significant calcifications of the coronary arteries including the left main coronary artery with a 70% stenosis of the distal left main, mild disease of the circumflex coronary artery with a 20-30% stenosis to his mid circumflex coronary artery, and it also demonstrated a 20-30% plaque to his mid right coronary artery. Subsequently, due to the findings on the heart catheterization a consult was placed to cardiothoracic surgery for further evaluation and treatment recommendations including myocardial revascularization surgery. Review of Systems A 14 point review of systems was completed and was negative except as mentioned in the HPI. Past Medical History Past Medical History: Atrial Fibrillation, Blood Disorder (Anemia and chronic thrombocytopenia), COPD (home O2 2-3L), CVA/TIA, Dialysis (End-stage renal disease on dialysis Saturday), Eye Disorder, GI Bleed, Hyperlipid emia, Hypertension, Renal Disease, Seizure Disorder Additional Past Medical History / Comment(s): Urolithiasis/nephrolithiasis, acute hypoxic respiratory failure after missed dialysis, lower GI bleed, duodenal ulcer, seizures with last seizures 12/2017, 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, pericardial effusion, spinal stenosis, DDD, chronic cervical and back pain, R eye "lazy", blood transfusion History of Any Multi-Drug Resistant Organisms: None Reported Past Surgical History: Bladder Surgery, Orthopedic Surgery Additional Past Surgical History / Comment(s): Hemorrhoidectomy, EGDs, colonoscopies, L sided Vats with decortication due to left-sided empyema, pericardial window for a pericardial effusion in January 2018, hemodialysis fistula, cystoscopies/lithotripsies, bilateral renal stents-double J catheter. eye injection with steroid on 04/04 for eye "stroke" , history of left-sided thoracentesis in January 2018 Past Anesthesia/Blood Transfusion Reactions: No Reported Reaction Additional Past Anesthesia/Blood Transfusion Reaction / Comm: Pt has received blood in past without reaction. Past Psychological History: No Psychological Hx Reported Smoking Status: Current every day smoker Past Alcohol Use History: None Reported Past Drug Use History: None Reported - Past Family History Father Family Medical History: Cancer, CVA/TIA Additional Family Medical History / Comment(s): Father had lymphoma. He had a CVA Mother Family Medical History: CVA/TIA Additional Family Medical History / Comment(s): Mother had a CVA. Sister(s) Additional Family Medical History / Comment(s): Patient has 5 sisters one has from an aneurysm in the brain. 2 sisters have history of kidney stones. Patient has one brother that was shot as cause of , he was on the kidney transplant list. Patient has 6 children with no major medical problems. Medications and Allergies Home Medications Medication Instructions Recorded Confirmed Type Sevelamer [Renvela] 1,600 mg PO DIRECTED 06/16/19 09/20/22 History Pantoprazole [Protonix] 40 mg PO BID@0700,1700 04/08/20 09/20/22 History hydrALAZINE HCL [Apresoline] 100 mg PO TID@0700,1200,1700 04/08/20 09/20/22 History Gabapentin [Neurontin] 100 mg PO BID@0700,1700 05/30/20 09/20/22 History amLODIPine [Norvasc] 5 mg PO BID@0700,1700 05/30/20 09/20/22 History Calcium Acetate [PhosLo] 667 mg PO TID-W/MEALS 12/15/20 09/20/22 History Furosemide [Lasix] 80 mg PO BID@0700,1700 01/03/22 09/20/22 History Doxazosin [Cardura] 6 mg PO BID #120 tab 08/16/22 09/20/22 Rx Labetalol [Trandate] 200 mg PO BID 09/20/22 09/20/22 History Lactulose [Cephulac] 20 gm PO DAILY PRN 09/20/22 09/20/22 History Patiromer Calcium Sorbitex 1 packet PO DAILY 09/20/22 09/20/22 History [Veltassa] levETIRAcetam [Keppra] 1,000 mg PO BID@0700,1900 09/20/22 09/20/22 History methocarbamoL [Robaxin-750] 750 mg PO BID PRN 09/20/22 09/20/22 History Allergies Allergy/AdvReac Type Severity Reaction Status Date / Time baclofen AdvReac "too Verified 08/15/22 18:00 strong/sedated" hydromorphone [From Dilaudid] AdvReac Hallucinati Verified 08/15/22 18:00 ons morphine AdvReac Hallucinati Verified 08/15/22 18:00 ons tramadol AdvReac Hallucinati Verified 08/15/22 18:00 ons Surgical - Exam Vital Signs Temp Pulse Resp BP Pulse Ox 100.1 F H 86 20 118/67 95 09/20/22 10:09 09/20/22 10:09 09/20/22 10:09 09/20/22 10:09 09/20/22 10:09 - General well developed, well nourished, no distress, no pain, chronically ill - Eyes PERRL, normal ocular movement, no pale, no icteric - ENT normal pinna, normal nares, normal mucosa, no hearing loss - Neck Neck is supple, no lymphadenopathy. no masses, no bruits, trachea midline, no venous distension - Respiratory Lung sounds with few scattered rhonchi throughout, diminished with bilateral bases. Respirations are symmetrical and nonlabored. - Cardiovascular Regular rhythm and rate. S1 and S2 present, negative for S3, or gallop. Soft systolic murmur heard best to his left sternal border. No edema present. - Abdomen Abdomen is soft, nontender and nondistended. Active bowel sounds present all 4, quadrant. No guarding or rigidity. - Genitourinary Deferred - Rectum Deferred - Integumentary Right arm AV fistula with good thrill and bruit. Skin is warm and dry. No clubbing or cyanosis is present. no rash, no growths, no abnormal pigmentation - Neurologic No focal deficits. normal coordination, normal sensation - Musculoskeletal Moves all 4 extremities with equal strength bilaterally. - Psychiatric Some episodes of forgetfulness. oriented to time, oriented to person, oriented to place, speech is normal Results - Labs 09/21/22 08:31 09/21/22 08:31 Abnormal Lab Results - Last 24 Hours (Table) 09/20/22 09/20/22 09/21/22 Range/Units 20:24 20:24 08:31 RBC 2.42 L (4.30-5.90) m/uL Hgb 7.8 L (13.0-17.5) gm/dL Hct 23.1 L (39.0-53.0) % RDW 16.7 H (11.5-15.5) % Plt Count 146 L (150-450) k/uL Lymphocytes # 0.7 L (1.0-4.8) k/uL APTT 51.4 H (22.0-30.0) sec Sodium (137-145) mmol/L Chloride (98-107) mmol/L BUN (9-20) mg/dL Creatinine (0.66-1.25) mg/dL Calcium (8.4-10.2) mg/dL AST (17-59) U/L Troponin I 23.000 H* (0.000-0.034) ng/mL Total Protein (6.3-8.2) g/dL 09/21/22 09/21/22 Range/Units 08:31 08:31 RBC (4.30-5.90) m/uL Hgb (13.0-17.5) gm/dL Hct (39.0-53.0) % RDW (11.5-15.5) % Plt Count (150-450) k/uL Lymphocytes # (1.0-4.8) k/uL APTT 49.2 H (22.0-30.0) sec Sodium 135 L (137-145) mmol/L Chloride 93 L (98-107) mmol/L BUN 56 H (9-20) mg/dL Creatinine 8.84 H* (0.66-1.25) mg/dL Calcium 8.0 L (8.4-10.2) mg/dL AST 86 H (17-59) U/L Troponin I (0.000-0.034) ng/mL Total Protein 5.9 L (6.3-8.2) g/dL Microbiology - Last 24 Hours (Table) 09/20/22 10:45 Blood Culture - Preliminary Blood No Growth after 24 hours 09/20/22 10:30 Blood Culture - Preliminary Blood No Growth after 24 hours Diabetes panel 09/21/22 Range/Units 08:31 Sodium 135 L (137-145) mmol/L Potassium 4.3 (3.5-5.1) mmol/L Chloride 93 L (98-107) mmol/L Carbon Dioxide 25 (22-30) mmol/L BUN 56 H (9-20) mg/dL Creatinine 8.84 H* (0.66-1.25) mg/dL Glucose 83 (74-99) mg/dL Calcium 8.0 L (8.4-10.2) mg/dL AST 86 H (17-59) U/L ALT 25 (4-49) U/L Alkaline Phosphatase 63 (38-126) U/L Total Protein 5.9 L (6.3-8.2) g/dL Albumin 3.5 (3.5-5.0) g/dL Calcium panel 09/21/22 Range/Units 08:31 Calcium 8.0 L (8.4-10.2) mg/dL Albumin 3.5 (3.5-5.0) g/dL Pituitary panel 09/21/22 Range/Units 08:31 Sodium 135 L (137-145) mmol/L Potassium 4.3 (3.5-5.1) mmol/L Chloride 93 L (98-107) mmol/L Carbon Dioxide 25 (22-30) mmol/L BUN 56 H (9-20) mg/dL Creatinine 8.84 H* (0.66-1.25) mg/dL Glucose 83 (74-99) mg/dL Calcium 8.0 L (8.4-10.2) mg/dL Adrenal panel 09/21/22 Range/Units 08:31 Sodium 135 L (137-145) mmol/L Potassium 4.3 (3.5-5.1) mmol/L Chloride 93 L (98-107) mmol/L Carbon Dioxide 25 (22-30) mmol/L BUN 56 H (9-20) mg/dL Creatinine 8.84 H* (0.66-1.25) mg/dL Glucose 83 (74-99) mg/dL Calcium 8.0 L (8.4-10.2) mg/dL Total Bilirubin 1.1 (0.2-1.3) mg/dL AST 86 H (17-59) U/L ALT 25 (4-49) U/L Alkaline Phosphatase 63 (38-126) U/L Total Protein 5.9 L (6.3-8.2) g/dL Albumin 3.5 (3.5-5.0) g/dL - Imaging Chest x-ray: report reviewed, image reviewed EKG: image reviewed Additional studies: Cardiac catheterization films reviewed by Dr. Corral. Transthoracic 2-D echocardiogram results reviewed by Dr. Corral. Assessment and Plan Assessment: 1. Coronary artery disease with left main disease status post heart catheterization 2. Non-ST elevated myocardial infarction this admission 3. Possible pneumonia 4. End-stage renal disease, on hemodialysis 5. Paroxysmal atrial fibrillation not on anticoagulation due to history of GI bleed 6. Anemia and thrombocytopenia 7. History of seizure disorder 8. Chronic obstructive pulmonary disease, home oxygen dependent on 2-3 L nasal cannula 9. Hypertension 10. Hyperlipidemia 11. History of CVA with no residual deficits 12. History of left sided lung empyema with history of left-sided VATS in January [address] Solis 13. History of pericardial effusion with history of left-sided VATS and pericardial window in January 2018 14. Chronic ongoing nicotine dependence 15. Degenerative disc disorder, with chronic back pain Plan: The patient was seen and examined with Dr. Charles Corral at his bedside on the cardiac stepdown unit. His chart and diagnostics were reviewed. Dr. Corral reviewed the findings on the cardiac catheterization with the patient and also discussed the results of the transthoracic 2-D echocardiogram. Due to the patient's multiple comorbidities and history of left-sided VATS and pericardial window at this time he is deemed a high risk surgical candidate. Dr. Corral spoke with the patient regarding treatment options and at this time is recommending a high risk PCI. Dr. Corral spoke with Dr. Mayorga who also agrees with this plan. We will continue to follow the patient on an as-needed basis. Medical management and other comorbidities per primary care service and other consultants. Thank you Dr. Mayorga for this consult, please contact us for further questions. I have personally seen and examined the patient, performed the documentation and the assessment and plan as written. 30 minutes spent on the visit . Joseph MEADOWS The patient was seen and evaluated with the MFT above. Agree with his assessment and plan. This patient is a 52 year-old male with multiple medical problems including ESRD, chronic anemia, previous left chest and pericardial surgery who presents with an NSTEMI and is found to have left main coronary artery disease. There is concern for a right sided infiltrate concerning for pneumonia as well. At this point, given all of these factors he is not fit to undergo coronary bypass surgery. I would recommend high risk PCI is able. This was discussed with Dr. Mayorga.
[2022-09-21] MEDS: NICOTINE 21MG/24HR PATCH TRANSDERM SCH (18:37)
[2022-09-21 19:58] LABS: Partial Thromboplastin Time 32.8 sec (22.0-30.0); Prothrombin Time 11.2 sec (9.0-12.0)
[2022-09-21] MEDS: ATORVASTATIN 80 MG TAB PO SCH (20:22)
[2022-09-21] MEDS: HEPARIN SODIUM 1,000 UN/ML (10ML VL) IV PRN (22:32)
[2022-09-21] MEDS: ALPRAZolam 0.5 MG TAB PO PRN (23:59)
[2022-09-22] MEDS: IPRATROPIUM-ALBUTEROL 3 ML NEB INHALATION PRN (00:28)
[2022-09-22] MEDS: IPRATROPIUM-ALBUTEROL 3 ML NEB INHALATION SCH ×4 (08:18→19:45)
[2022-09-22] MEDS: AZITHROMYCIN 500 MG TAB PO SCH (10:07)
[2022-09-22] MEDS: levETIRAcetam 500 MG TAB PO SCH ×2 (10:07→20:33)
[2022-09-22] MEDS: SEVELAMER 800 MG TAB PO SCH ×4 (10:07→20:33)
[2022-09-22] MEDS: PANTOPRAZOLE 40 MG TABLET PO SCH ×2 (10:08→17:09)
[2022-09-22] MEDS: METOPROLOL TARTRATE 25 MG TAB PO SCH ×2 (10:08→20:33)
[2022-09-22] MEDS: GABAPENTIN 100 MG CAP PO SCH ×2 (10:08→20:33)
[2022-09-22] MEDS: ASPIRIN 81 MG PO SCH (10:08)
[2022-09-22] MEDS: NICOTINE 21MG/24HR PATCH TRANSDERM SCH (10:08)
--- NOTE | 2022-09-22 11:22 | P.PN ---
Subjective Progress Note Date: 09/22/22 PROGRESS NOTE The patient is feeling better today, he denies any chest discomfort, dizziness or palpitations. He underwent cardiac catheterization yesterday and was found to have severe obstructive disease in the distal left main in a calcified segment. He was evaluated by the surgical team and was felt to be a high risk for surgical intervention. We are awaiting the input of the pulmonary service regarding his lung status. If the patient is felt to be high risk for any surgical intervention in the option is to proceed with high risk PCI of the distal left main. In the meantime the patient continues to be on IV heparin. I discussed those findings in detail with him today. Medications: Aspirin, Lipitor 80 mg daily, IV heparin, metoprolol tartrate 25 mg twice a day, Maris Tejeda PHYSICAL EXAMINATION: Blood pressure 147/69 heart rate 80 LUNGS: Decreased breath sounds bilaterally with scattered wheezes HEART: Regular rate and rhythm, S1, S2. No S3. systolic ejection murmur ABDOMEN: Soft, nontender, no organomegaly EXTREMETIES: No edema, right groin no hematoma LAB: Pending IMPRESSION: 1. Non-STEMI with severe distal left main disease 2. End-stage renal disease on hemodialysis 3. Chronic tobacco use with COPD 4. Anemia, of chronic disease, no evidence of acute bleeding 5. Prior history of empyema PLAN: 1. Continue IV heparin 2. Await pulmonary evaluation 3. Add nitrate 4. Follow blood pressure 5. Depending on his progress consider high risk PCI Objective - Vital Signs Vital signs: Vital Signs Temp 99.5 F 09/22/22 10:05 Pulse 83 09/22/22 10:05 Resp 16 09/22/22 10:05 BP 147/69 09/22/22 10:05 Pulse Ox 94 L 09/22/22 10:05 FiO2 Intake & Output 09/21/22 09/22/22 09/22/22 18:59 06:59 18:59 Intake Total 590 175.753 240 Output Total 1600 0 Balance -1010 175.753 240 Intake: IV 100 Intake, IV Titration 250 55.753 Amount Heparin Sod,Pork in 0.45% 55.753 NaCl 25,000 unit In 0.45 % NaCl 1 250ml.bag @ 12 UNITS/KG/HR 7.62 mls/hr IV .Q24H [facility] Rx#: [id number] Heparin Sod,Pork in 0.45% 250 NaCl 25,000 unit In 0.45 % NaCl 1 250ml.bag @ 18 UNITS/KG/HR 11.839 mls/hr IV .Q21H7M [facility] Rx#: [id number] Oral 240 120 240 Output: Urine 100 0 Hemodialysis 1500 Other: # Bowel Movements 1 - Labs CBC & Chem 7: 09/21/22 08:31 09/21/22 08:31 Labs: Abnormal Lab Results - Last 24 Hours (Table) 09/21/22 09/21/22 09/21/22 Range/Units 08:31 08:31 19:32 APTT 49.2 H 32.8 H (22.0-30.0) sec Procalcitonin 5.13 H (0.02-0.09) ng/mL Microbiology - Last 24 Hours (Table) 09/21/22 14:49 Sputum Culture - Preliminary Sputum 09/20/22 10:45 Blood Culture - Preliminary Blood No Growth after 24 hours 09/20/22 10:30 Blood Culture - Preliminary Blood No Growth after 24 hours
[2022-09-22 11:40] LABS: Hepatitis B Surface AB- Quant 13.5 mIU/mL; Hepatitis B Surface Antibody Reactive (Nonreactive)
[2022-09-22] MEDS: NITROGLYCERIN OINT 1 INCH/GM PACKET TOPICAL SCH ×3 (12:50→22:35)
--- NOTE | 2022-09-22 14:23 | CONS ---
CONSULTATION HISTORY OF PRESENT ILLNESS: This is a 52-year-old gentleman who recently had a cardiac catheterization showing a distal left main lesion. He was seen by Dr. Mayorga. He is seen today in room 384. The patient has a long medical history includes CVA; COPD; chronic hypoxemic respiratory failure, currently on home O2 at 3 L; end-stage renal disease, currently on 3 time a week hemodialysis; gastric ulcer; hypertension; pleural effusion; myocardial infarction; pericardial effusion; coronavirus associated pneumonia; and seizures. The patient last had a PFT in 2018. At that time, his FEV1 was 46% of predicted. Hence, he has stage III disease. No more recent PFTs. Currently, he is on IV heparin. He is getting 4 L of oxygen. The patient is anticipated to have hemodialysis today. The patient unfortunately still does smoke. The question is whether or not the patient will be a good candidate for high-risk PCI with angioplasty versus bypass grafting. I have taken the liberty and ordered a bedside spirometry to get a better sense of what his lung function is currently doing now. PHYSICAL EXAMINATION: VITAL SIGNS: Current vital signs include a blood pressure of 118/72, heart rate of 90, respiratory rate of 20, temperature which is 38.6, and saturations which are 93% on 4 L. GENERAL: Appears in no acute distress. HEENT: Examination is grossly unremarkable. Nasal O2 noted. NECK: Supple, full range of motion. No adenopathy. Neck veins are flat. CARDIOVASCULAR: Examination reveals distant heart sounds. Heart rate about 80 beats per minute. S1, S2 normal. No distinct murmur. LUNGS: Severely diminished breath sounds. Crackles at the bases. Scattered rhonchi in the upper lobes. Breath sounds equal. ABDOMEN: Soft. Bowel sounds are heard. EXTREMITIES: Intact. Minimal edema. SKIN: Without rash. NEUROLOGIC: Examination is brief but nonfocal. Labs, x-rays, and medications could not be viewed. ASSESSMENT: 1. Recent cardiac catheterization, showing a distal left main lesion. 2. History of severe chronic obstructive pulmonary disease, with an FEV1 when last checked, in 2018, of 46. 3. Chronic hypoxemic respiratory failure, currently on home O2 at 3 L. 4. Ongoing tobacco use with nicotine addiction. 5. End-stage renal disease, currently on 3 times a week hemodialysis. 6. History of cerebrovascular accident. 7. History of gastric ulcer. 8. History of hypertension. 9. History of pleural effusion. 10.History of myocardial infarction. 11.History of pericardial effusion. 12.History of coronavirus associated pneumonia. 13.History of seizure disorder. PLAN: The patient's medications are reviewed. Additional recommendations and suggestions are forthcoming. The patient should be on DuoNeb q.i.d. and p.r.n. In addition, he should be on budesonide 1 mg and formoterol 20 mcg twice a day. Additional recommendations and suggestions are forthcoming. We counseled him about the importance of smoking cessation. Certainly, whether he has bypass grafting or PCI with angioplasty, the risk would be significant. I will get a better idea of the risks once the bedside spirometry is performed. MMODL / IJN: [id number] /
[2022-09-22] MEDS: HEPARIN SODIUM 1,000 UN/ML (10ML VL) IV PRN ×2 (14:46→22:39)
[2022-09-22] MEDS: HEPARIN SOD,PORK IN 0.45% NACL 25,000 UNIT in 0.45% NACL 1 250ML.BAG IV SCH ×2 (14:47→21:03)
[2022-09-22 15:54] LABS: Calcium 7.8 mg/dL (8.4-10.2); Potassium 3.7 mmol/L (3.5-5.1)
[2022-09-22 15:57] LABS: Anisocytosis Slight; Basophils # (A) 0.1 k/uL (0-0.2); Basophils % (A) 1 %; Eosinophils # (A) 0.1 k/uL (0-0.7); Eosinophils % (A) 1 %; HCT 22.3 % (39.0-53.0); HGB 7.7 gm/dL (13.0-17.5); Hypochromasia Slight; Lymphocytes # (A) 0.5 k/uL (1.0-4.8); Lymphocytes % (A) 10 %; MCH 33.5 pg (25.0-35.0); MCHC 34.8 g/dL (31.0-37.0); MCV 96.5 fL (80.0-100.0); Monocytes # (A) 0.4 k/uL (0-1.0); Monocytes % (A) 8 %; Neutrophils # (A) 3.7 k/uL (1.3-7.7); Neutrophils % (A) 77 %; Platelet Count 164 k/uL (150-450); Poikilocytosis Moderate; RBC 2.31 m/uL (4.30-5.90); RDW 16.4 % (11.5-15.5); WBC 4.8 k/uL (3.8-10.6)
--- NOTE | 2022-09-22 17:18 | P.PN ---
Subjective Progress Note Date: 09/22/22 Follow-up for ESRD on hemodialysis. Feels better today. Shortness of breath improved. Objective - Vital Signs Vital signs: Vital Signs Temp 99.1 F 09/22/22 17:06 Pulse 88 09/22/22 17:06 Resp 18 09/22/22 17:06 BP 139/81 09/22/22 17:06 Pulse Ox 98 09/22/22 17:06 FiO2 Intake & Output 09/21/22 09/22/22 09/22/22 18:59 06:59 18:59 Intake Total 590 175.753 635.416 Output Total 1600 0 Balance -1010 175.753 635.416 Intake: IV 100 Intake, IV Titration 250 55.753 155.416 Amount Heparin Sod,Pork in 0.45% 55.753 155.416 NaCl 25,000 unit In 0.45 % NaCl 1 250ml.bag @ 12 UNITS/KG/HR 7.62 mls/hr IV .Q24H [facility] Rx#: [id number] Heparin Sod,Pork in 0.45% 250 NaCl 25,000 unit In 0.45 % NaCl 1 250ml.bag @ 18 UNITS/KG/HR 11.839 mls/hr IV .Q21H7M [facility] Rx#: [id number] Oral 240 120 480 Output: Urine 100 0 Hemodialysis 1500 Other: # Bowel Movements 1 - Exam No acute distress S1-S2 heard Decreased breath sounds Right upper arm fistula No edema - Labs CBC & Chem 7: 09/22/22 09:34 09/22/22 09:34 Labs: Abnormal Lab Results - Last 24 Hours (Table) 09/21/22 09/21/22 09/22/22 Range/Units 19:32 19:32 09:34 RBC 2.31 L (4.30-5.90) m/uL Hgb 7.7 L (13.0-17.5) gm/dL Hct 22.3 L (39.0-53.0) % RDW 16.4 H (11.5-15.5) % Lymphocytes # 0.5 L (1.0-4.8) k/uL APTT 32.8 H (22.0-30.0) sec Sodium (137-145) mmol/L Chloride (98-107) mmol/L BUN (9-20) mg/dL Creatinine (0.66-1.25) mg/dL Glucose (74-99) mg/dL Calcium (8.4-10.2) mg/dL Hep Bs Antibody Reactive A (Nonreactive) 09/22/22 09/22/22 Range/Units 09:34 13:15 RBC (4.30-5.90) m/uL Hgb (13.0-17.5) gm/dL Hct (39.0-53.0) % RDW (11.5-15.5) % Lymphocytes # (1.0-4.8) k/uL APTT 39.0 H (22.0-30.0) sec Sodium 136 L (137-145) mmol/L Chloride 96 L (98-107) mmol/L BUN 34 H (9-20) mg/dL Creatinine 6.77 H (0.66-1.25) mg/dL Glucose 133 H (74-99) mg/dL Calcium 7.8 L (8.4-10.2) mg/dL Hep Bs Antibody (Nonreactive) Microbiology - Last 24 Hours (Table) 09/20/22 10:30 Blood Culture - Preliminary Blood No Growth after 48 hours 09/20/22 10:45 Blood Culture - Preliminary Blood No Growth after 48 hours 09/21/22 14:49 Gram Stain - Preliminary Sputum Sputum Culture - Preliminary Assessment and Plan Assessment: #1 shortness of breath secondary to possible pneumonia and volume overload. #2 ESRD on hemodialysis MWF. #3 hypertension with ESRD #4 anemia with ESRD #5 metabolic disease Plan: #1 hemodialysis MWF schedule next treatment on Saturday. #2 ESRD medications
--- NOTE | 2022-09-22 19:07 | P.PN ---
Subjective Progress Note Date: 09/21/22 Patient is a 52-year-old male with a known history of hypertension, hyperlipidemia, seizure disorder, ESRD on hemodialysis on Saturday and Saturday, history of CVA/TIA, prior history of paroxysmal atrial fibrillation not on anticoagulation due to GI bleed, history of left sided VATS and currently everyday smoker presents to ER with complaints of worsening shortness of for the past 2 to 3 days. Patient has been having exertional dyspnea. Also complains of cough with greenish sputum production and having fever at home.Patient is somewhat poor historian. Admission 100.1. Patient is requiring oxygen at 3 L via nasal cannula. EMS reports fever of T-max of 102.3. Patient had last hemodialysis on Saturday. Patient did have prior history of recurrent pneumonia. Otherwise denied any complaints of chest pain. No headache or dizziness or lightheadedness. No nausea vomiting abdominal pain or diarrhea. Patient is also having chronic back pain and spinal stenosis with degenerative disc disease. Chest x-ray showed mild cardiomegaly and interstitial changes. Correlate for possible pulmonary vascular congestion. Right midlung airspace disease and additional patchy infiltrate in the right lower lobe. Findings could represent atypical pulmonary edema versus multifocal pneumonia. EKG showed showed sinus rhythm with left ventricular hypertrophy. Laboratory data showed WBC 10.3 hemoglobin 8.2 and platelets 116 Sodium 134 potassium 4.2 chloride 91 bicarb is 28 BUN 31 creatinine 6.87 Liver enzymes are not elevated and troponin level is 11.6, 18.4 proBNP [id number] Coronavirus PCR and influenza a and B not detected. 09/21/2022 Patient is seen and evaluated in follow-up this morning with cardiology and nephrology following. Patient is scheduled for cardiac catheterization and will tentatively be scheduled for hemodialysis after. Patient did have an echo done showing an EF of 45-50%. Await echo report. Patient is continued on 2-3 L via nasal cannula and reports continued shortness of breath. Patient is continued on IV antibiotics for the right lower lobe possible pneumonia and currently awaiting a pending pro-calcitonin at this time. Review of systems: Constitutional: No reports of fatigue, fever, or chills Cardiovascular: No reports of chest pain or palpitations Respiratory: No reports of shortness of breath or cough GI: No reports of nausea, vomiting, or diarrhea : No reports of dysuria or retention Neurovascular: No reports of weakness or numbness All medications have been reviewed PHYSICAL EXAMINATION: Patient is lying in the bed comfortably, no acute distress, awake alert and oriented.. HEENT: Normocephalic. Neck is supple. Pupils reactive. Nostrils clear. Oral cavity is moist. Neck reveals no JVD, carotid bruits, or thyromegaly. CHEST EXAMINATION: Trachea is central. Symmetrical expansion bibasilar scattered rhonchi. Nonlabored breathing.. CARDIAC: Normal S1, S2 with no gallops. No murmurs ABDOMEN: Soft. Bowel sounds present. Nontender. No organomegaly. No abdominal bruits. Extremities: reveal no edema. No clubbing or cyanosis Neurologically awake, alert, oriented x2-3 with well-coordinated movements. No gross focal deficits noted Skin: No rash or skin lesions. Psychiatric: Cooperative. Non-suicidal, Musculoskeletal: No joint swelling or deformity. Normal range of motion. Assessment: Worsening shortness of breath Secondary to pulmonary vascular congestion and pneumonia Acute right lower lobe multifocal pneumonia Acute non-ST elevated VA Elevated troponin level Elevated BNP level ESRD on hemodialysis Saturday and Saturday Paroxysmal atrial fibrillation not on anticoagulation due to history of prior GI bleed Hypertension Chronic thrombocytopenia History of seizure disorder Hyperlipidemia History of left thalamus CVA no residual focal deficits Currently everyday smoker DVT prophylaxis Plan: Patient will be continued on telemetry monitoring. Patient on heparin drip and cardiology following and is going to dental lab technician currently for cardiac cath. Patient will be current antibiotics ceftriaxone azithromycin. Sputum culture and blood cultures were ordered. Procalcitonin continues to be pending. Blood pressure medications on hold due to patient being hypotensive. Nephrology consulted to continue with hemodialysis. Continue with duo nebs and symptomatic management and pain management. Prognosis is guarded at this time. Await cath report. The impression and plan of care has been dictated by Joanna Jefferson, Nurse Practitioner as directed. Dr. Mc MD I have performed a history and examination and MDM of this patient, discussed the same with the dictator, and agree with the dictator's assessment and plan as written ,documented as a scribe. Based on total visit time, I have performed more than 50% of the visit. Objective - Vital Signs Vital signs: Vital Signs Temp 99.6 F 09/21/22 07:50 Pulse 89 09/21/22 07:50 Resp 20 09/21/22 07:50 BP 127/74 09/21/22 07:50 Pulse Ox 91 L 09/21/22 07:50 FiO2 Intake & Output 09/20/22 09/21/22 09/21/22 18:59 06:59 18:59 Output Total 100 Balance -100 Weight 65.771 kg Output: Urine 100 Other: # Voids 0 # Bowel Movements 0 - Labs CBC & Chem 7: 09/22/22 09:34 09/22/22 09:34 Labs: Abnormal Lab Results - Last 24 Hours (Table) 09/20/22 09/20/22 09/20/22 Range/Units 10:17 10:17 10:17 RBC 2.44 L (4.30-5.90) m/uL Hgb 8.2 L D (13.0-17.5) gm/dL Hct 23.1 L (39.0-53.0) % RDW 16.1 H (11.5-15.5) % Plt Count 116 L (150-450) k/uL Neutrophils # 8.8 H (1.3-7.7) k/uL Lymphocytes # 0.6 L (1.0-4.8) k/uL APTT (22.0-30.0) sec Sodium 134 L (137-145) mmol/L Chloride 91 L (98-107) mmol/L BUN 31 H (9-20) mg/dL Creatinine 6.87 H (0.66-1.25) mg/dL Troponin I 11.600 H* (0.000-0.034) ng/mL 09/20/22 09/20/22 09/20/22 Range/Units 14:38 20:24 20:24 RBC (4.30-5.90) m/uL Hgb (13.0-17.5) gm/dL Hct (39.0-53.0) % RDW (11.5-15.5) % Plt Count (150-450) k/uL Neutrophils # (1.3-7.7) k/uL Lymphocytes # (1.0-4.8) k/uL APTT 51.4 H (22.0-30.0) sec Sodium (137-145) mmol/L Chloride (98-107) mmol/L BUN (9-20) mg/dL Creatinine (0.66-1.25) mg/dL Troponin I 18.400 H* 23.000 H* (0.000-0.034) ng/mL 09/21/22 Range/Units 08:31 RBC 2.42 L (4.30-5.90) m/uL Hgb 7.8 L (13.0-17.5) gm/dL Hct 23.1 L (39.0-53.0) % RDW 16.7 H (11.5-15.5) % Plt Count 146 L (150-450) k/uL Neutrophils # (1.3-7.7) k/uL Lymphocytes # 0.7 L (1.0-4.8) k/uL APTT (22.0-30.0) sec Sodium (137-145) mmol/L Chloride (98-107) mmol/L BUN (9-20) mg/dL Creatinine (0.66-1.25) mg/dL Troponin I (0.000-0.034) ng/mL
[2022-09-22] MEDS: ATORVASTATIN 80 MG TAB PO SCH (20:33)
[2022-09-22] MEDS: ALPRAZolam 0.5 MG TAB PO PRN (20:33)
[2022-09-23] MEDS: IPRATROPIUM-ALBUTEROL 3 ML NEB INHALATION SCH ×4 (07:48→19:20)
[2022-09-23 08:25] LABS: Anisocytosis Slight; HCT 22.1 % (39.0-53.0); HGB 7.2 gm/dL (13.0-17.5); Hypochromasia Slight; MCH 31.8 pg (25.0-35.0); MCHC 32.7 g/dL (31.0-37.0); MCV 97.1 fL (80.0-100.0); Macrocytosis Slight; Mean Platelet Volume 8.4; Platelet Count 165 k/uL (150-450); Poikilocytosis Moderate; RBC 2.28 m/uL (4.30-5.90); RDW 16.7 % (11.5-15.5); WBC 4.6 k/uL (3.8-10.6)
[2022-09-23] MEDS: ASPIRIN 81 MG PO SCH (08:29)
[2022-09-23] MEDS: AZITHROMYCIN 500 MG TAB PO SCH (08:29)
[2022-09-23] MEDS: SEVELAMER 800 MG TAB PO SCH ×4 (08:29→21:06)
[2022-09-23] MEDS: GABAPENTIN 100 MG CAP PO SCH ×2 (08:30→21:07)
[2022-09-23] MEDS: NICOTINE 21MG/24HR PATCH TRANSDERM SCH (08:30)
[2022-09-23] MEDS: PANTOPRAZOLE 40 MG TABLET PO SCH ×2 (08:30→15:42)
[2022-09-23] MEDS: levETIRAcetam 500 MG TAB PO SCH ×2 (08:30→21:07)
[2022-09-23] MEDS: METOPROLOL TARTRATE 25 MG TAB PO SCH (08:30)
[2022-09-23] MEDS: NITROGLYCERIN OINT 1 INCH/GM PACKET TOPICAL SCH ×2 (08:30→15:43)
[2022-09-23 08:58] LABS: Calcium 8.1 mg/dL (8.4-10.2); Potassium 3.7 mmol/L (3.5-5.1)
--- NOTE | 2022-09-23 12:00 | P.PN ---
Subjective Progress Note Date: 09/23/22 PROGRESS NOTE The patient is feeling better today, he denies any chest discomfort, dizziness or palpitations. He underwent cardiac catheterization yesterday and was found to have severe obstructive disease in the distal left main in a calcified segment. He was evaluated by the surgical team and was felt to be a high risk for surgical intervention. We are awaiting the input of the pulmonary service regarding his lung status. If the patient is felt to be high risk for any surgical intervention in the option is to proceed with high risk PCI of the distal left main. In the meantime the patient continues to be on IV heparin. I discussed those findings in detail with him today. September 23. He is feeling well today. He has no further symptoms of chest discomfort. His breathing is stable. He denies any dizziness or palpitations. He was seen by Dr. Leggett and workup is in progress to see if he is a candidate for surgical intervention. He continues to be in sinus mechanism, on IV heparin. Medications: Aspirin, Lipitor 80 mg daily, IV heparin, metoprolol tartrate 25 mg twice a day, Renvela, Keppra, Nitropaste PHYSICAL EXAMINATION: Blood pressure 154/80 heart rate 80 LUNGS: Decreased breath sounds bilaterally HEART: Regular rate and rhythm, S1, S2. No S3. systolic ejection murmur ABDOMEN: Soft, nontender, no organomegaly EXTREMETIES: No edema, LAB: Hemoglobin 7.2, BUN 41, creatinine 8.73 Pending IMPRESSION: 1. Non-STEMI with severe distal left main disease 2. End-stage renal disease on hemodialysis 3. Chronic tobacco use with COPD 4. Anemia, of chronic disease, no evidence of acute bleeding secondary to kidney disease 5. Prior history of empyema PLAN: 1. Continue IV heparin 2. Increase beta kadeem, and follow blood pressure 3. If the patient is not a candidate for surgical intervention proceed with high risk PCI of the left main next week, I discussed those findings in detail with the patient 4. Follow hemoglobin Objective - Vital Signs Vital signs: Vital Signs Temp 98.0 F 09/23/22 08:00 Pulse 81 09/23/22 08:00 Resp 24 09/23/22 08:00 BP 154/84 09/23/22 08:00 Pulse Ox 99 09/23/22 08:00 FiO2 Intake & Output 09/22/22 09/23/22 09/23/22 19:59 06:59 18:59 Intake Total Balance Weight Intake: Intake, IV Titration Amount Heparin Sod,Pork in 0.45% NaCl 25,000 unit In 0.45 % NaCl 1 250ml.bag @ 12 UNITS/KG/HR 7.62 mls/hr IV .Q24H [facility] Rx#: [id number] Oral Other: # Voids # Bowel Movements - Labs CBC & Chem 7: 09/23/22 07:30 09/23/22 07:30 Labs: Abnormal Lab Results - Last 24 Hours (Table) 09/22/22 09/22/22 09/22/22 Range/Units 09:34 09:34 13:15 RBC 2.31 L (4.30-5.90) m/uL Hgb 7.7 L (13.0-17.5) gm/dL Hct 22.3 L (39.0-53.0) % RDW 16.4 H (11.5-15.5) % Lymphocytes # 0.5 L (1.0-4.8) k/uL APTT 39.0 H (22.0-30.0) sec Sodium 136 L (137-145) mmol/L Chloride 96 L (98-107) mmol/L BUN 34 H (9-20) mg/dL Creatinine 6.77 H (0.66-1.25) mg/dL Glucose 133 H (74-99) mg/dL Calcium 7.8 L (8.4-10.2) mg/dL 09/22/22 09/23/22 09/23/22 Range/Units 21:05 07:30 07:30 RBC 2.28 L (4.30-5.90) m/uL Hgb 7.2 L (13.0-17.5) gm/dL Hct 22.1 L (39.0-53.0) % RDW 16.7 H (11.5-15.5) % Lymphocytes # (1.0-4.8) k/uL APTT 39.7 H (22.0-30.0) sec Sodium (137-145) mmol/L Chloride 97 L (98-107) mmol/L BUN 41 H (9-20) mg/dL Creatinine 8.73 H* (0.66-1.25) mg/dL Glucose 121 H (74-99) mg/dL Calcium 8.1 L (8.4-10.2) mg/dL 09/23/22 Range/Units 07:30 RBC (4.30-5.90) m/uL Hgb (13.0-17.5) gm/dL Hct (39.0-53.0) % RDW (11.5-15.5) % Lymphocytes # (1.0-4.8) k/uL APTT 58.0 H (22.0-30.0) sec Sodium (137-145) mmol/L Chloride (98-107) mmol/L BUN (9-20) mg/dL Creatinine (0.66-1.25) mg/dL Glucose (74-99) mg/dL Calcium (8.4-10.2) mg/dL Microbiology - Last 24 Hours (Table) 09/21/22 14:49 Gram Stain - Final Sputum Sputum Culture - Final 09/20/22 10:30 Blood Culture - Preliminary Blood No Growth after 48 hours 09/20/22 10:45 Blood Culture - Preliminary Blood No Growth after 48 hours
--- NOTE | 2022-09-23 12:14 | P.PN ---
Subjective Progress Note Date: 09/23/22 Principal diagnosis: Coronary artery disease. Progress note dated 09/23/2022. 52-year-old male seen yesterday in consultation. The patient was found have a distal left main obstruction. I spoke to the employment legal assistant, who is going to have the cardiothoracic surgeons see the patient as well. I'm not sure what the plan long-term is. Currently, the patient's on 4 L of oxygen. He is getting saline at 10 mL an hour, and IV heparin. The patient does have severe COPD, with an F EV1 was 46% of predicted, on a PFT that was done back in 2018. He does continue to smoke. Other medical history substantial and includes end-stage renal disease, on 3 time a week hemodialysis, CVA, seizures, myocardial infarction, and chronic hypoxemic respiratory failure. White count 4.6, hemoglobin 7.2, hematocrit 22.1, and platelet count 265,000. PTT is 58. Sodium 139, potassium 3.7, chlorides 97, CO2 25, BUN 41, creatinine 8.73. Objective - Vital Signs Vital signs: Vital Signs Temp 98.0 F 09/23/22 08:00 Pulse 81 09/23/22 08:00 Resp 24 09/23/22 08:00 BP 154/84 09/23/22 08:00 Pulse Ox 99 09/23/22 08:00 FiO2 Intake & Output 09/22/22 09/23/22 09/23/22 19:59 06:59 18:59 Intake Total Balance Weight Intake: Intake, IV Titration Amount Heparin Sod,Pork in 0.45% NaCl 25,000 unit In 0.45 % NaCl 1 250ml.bag @ 12 UNITS/KG/HR 7.62 mls/hr IV .Q24H [facility] Rx#: [id number] Oral Other: # Voids # Bowel Movements - Exam No acute distress, oriented 3. No conversational dyspnea or use of accessory muscles. The patient's currently on 4 L of oxygen. HEENT examination is grossly unremarkable. Neck supple. Full range of motion. No adenopathy thyromegaly or neck vein distention. Cardiovascular examination reveals regular rhythm rate. S1-S2 normal. No S3 or S4. No discernible murmur noted. Heart sounds distant. Heart rate 81 bpm. Lungs reveal mostly clear breath sounds. Breath sounds are equal bilaterally. Scattered rhonchi are noted. Saturations 99%. Abdomen soft bowel sounds are heard. No masses or tenderness. Extremities are intact. No cyanosis clubbing or edema. Skin is without rash or lesion. Neurologic examination is brief but nonfocal. - Labs CBC & Chem 7: 09/23/22 07:30 09/23/22 07:30 Labs: Abnormal Lab Results - Last 24 Hours (Table) 09/22/22 09/22/22 09/22/22 Range/Units 09:34 09:34 13:15 RBC 2.31 L (4.30-5.90) m/uL Hgb 7.7 L (13.0-17.5) gm/dL Hct 22.3 L (39.0-53.0) % RDW 16.4 H (11.5-15.5) % Lymphocytes # 0.5 L (1.0-4.8) k/uL APTT 39.0 H (22.0-30.0) sec Sodium 136 L (137-145) mmol/L Chloride 96 L (98-107) mmol/L BUN 34 H (9-20) mg/dL Creatinine 6.77 H (0.66-1.25) mg/dL Glucose 133 H (74-99) mg/dL Calcium 7.8 L (8.4-10.2) mg/dL 09/22/22 09/23/22 09/23/22 Range/Units 21:05 07:30 07:30 RBC 2.28 L (4.30-5.90) m/uL Hgb 7.2 L (13.0-17.5) gm/dL Hct 22.1 L (39.0-53.0) % RDW 16.7 H (11.5-15.5) % Lymphocytes # (1.0-4.8) k/uL APTT 39.7 H (22.0-30.0) sec Sodium (137-145) mmol/L Chloride 97 L (98-107) mmol/L BUN 41 H (9-20) mg/dL Creatinine 8.73 H* (0.66-1.25) mg/dL Glucose 121 H (74-99) mg/dL Calcium 8.1 L (8.4-10.2) mg/dL 09/23/22 Range/Units 07:30 RBC (4.30-5.90) m/uL Hgb (13.0-17.5) gm/dL Hct (39.0-53.0) % RDW (11.5-15.5) % Lymphocytes # (1.0-4.8) k/uL APTT 58.0 H (22.0-30.0) sec Sodium (137-145) mmol/L Chloride (98-107) mmol/L BUN (9-20) mg/dL Creatinine (0.66-1.25) mg/dL Glucose (74-99) mg/dL Calcium (8.4-10.2) mg/dL Microbiology - Last 24 Hours (Table) 09/21/22 14:49 Gram Stain - Final Sputum Sputum Culture - Final 09/20/22 10:30 Blood Culture - Preliminary Blood No Growth after 48 hours 09/20/22 10:45 Blood Culture - Preliminary Blood No Growth after 48 hours Assessment and Plan Assessment: Distal left main coronary obstruction. History of severe COPD, with an FEV1 percent is 46, back in 2018. Chronic hypoxemic respiratory failure, on home O2 at 3 L. Ongoing tobacco use with nicotine addiction. End-stage renal disease, with 3 times a week hemodialysis. History of CVA. History of gastric ulcer. History of hypertension. History of pleural and pericardial effusion. History of myocardial infarction. History of coronavirus associated pneumonia. History of seizure disorder. Plan: Plan dated 09/23/2022. The patient remains on 4 L, and IV heparin. I did ask for a bedside spirometry to be done. It's likely, the cardiology will perform a PCI with stent. Certainly this is a high risk procedure, but even more high risk for the patient have bypass grafting. We will continue to follow make recommendations along the way. I've counseled the patient about the importance of smoking cessation. We will await the repeat spirometry. Time with Patient: Less than 30
[2022-09-23] MEDS: HEPARIN SOD,PORK IN 0.45% NACL 25,000 UNIT in 0.45% NACL 1 250ML.BAG IV SCH (15:44)
--- NOTE | 2022-09-23 16:41 | P.PN ---
Subjective Progress Note Date: 09/23/22 Follow-up for ESRD on hemodialysis. Feels better today. Shortness of breath improved. Objective - Vital Signs Vital signs: Vital Signs Temp 98.7 F 09/23/22 16:00 Pulse 81 09/23/22 16:00 Resp 24 09/23/22 16:00 BP 149/82 09/23/22 16:00 Pulse Ox 97 09/23/22 16:00 FiO2 Intake & Output 09/22/22 09/23/22 09/23/22 19:59 06:59 18:59 Intake Total 701.001 Balance 701.001 Weight Intake: Intake, IV Titration 223.001 Amount Heparin Sod,Pork in 0.45% 223.001 NaCl 25,000 unit In 0.45 % NaCl 1 250ml.bag @ 12 UNITS/KG/HR 7.62 mls/hr IV .Q24H [facility] Rx#: [id number] Oral 478 Other: # Voids # Bowel Movements 1 - Exam No acute distress S1-S2 heard Decreased breath sounds Right upper arm fistula No edema - Labs CBC & Chem 7: 09/23/22 07:30 09/23/22 07:30 Labs: Abnormal Lab Results - Last 24 Hours (Table) 09/22/22 09/23/22 09/23/22 Range/Units 21:05 07:30 07:30 RBC 2.28 L (4.30-5.90) m/uL Hgb 7.2 L (13.0-17.5) gm/dL Hct 22.1 L (39.0-53.0) % RDW 16.7 H (11.5-15.5) % APTT 39.7 H (22.0-30.0) sec Chloride 97 L (98-107) mmol/L BUN 41 H (9-20) mg/dL Creatinine 8.73 H* (0.66-1.25) mg/dL Glucose 121 H (74-99) mg/dL Calcium 8.1 L (8.4-10.2) mg/dL 09/23/22 Range/Units 07:30 RBC (4.30-5.90) m/uL Hgb (13.0-17.5) gm/dL Hct (39.0-53.0) % RDW (11.5-15.5) % APTT 58.0 H (22.0-30.0) sec Chloride (98-107) mmol/L BUN (9-20) mg/dL Creatinine (0.66-1.25) mg/dL Glucose (74-99) mg/dL Calcium (8.4-10.2) mg/dL Microbiology - Last 24 Hours (Table) 09/20/22 10:45 Blood Culture - Preliminary Blood No Growth after 72 hours 09/20/22 10:30 Blood Culture - Preliminary Blood No Growth after 72 hours 09/21/22 14:49 Gram Stain - Final Sputum Sputum Culture - Final Assessment and Plan Assessment: #1 shortness of breath secondary to possible pneumonia and volume overload. #2 ESRD on hemodialysis MWF. #3 hypertension with ESRD #4 anemia with ESRD #5 metabolic disease Plan: #1 hemodialysis MWF schedule next treatment on Saturday. #2 ESRD medications
[2022-09-23] MEDS: METOPROLOL TARTRATE 50 MG TAB PO SCH (21:06)
[2022-09-23] MEDS: ATORVASTATIN 80 MG TAB PO SCH (21:06)
[2022-09-23] MEDS: ALPRAZolam 0.25 MG TAB PO PRN (21:07)
[2022-09-24] MEDS: NITROGLYCERIN OINT 1 INCH/GM PACKET TOPICAL SCH ×3 (00:19→16:40)
[2022-09-24] MEDS: SEVELAMER 800 MG TAB PO SCH ×4 (06:35→21:53)
[2022-09-24] MEDS: PANTOPRAZOLE 40 MG TABLET PO SCH ×2 (06:35→16:40)
[2022-09-24] MEDS: IPRATROPIUM-ALBUTEROL 3 ML NEB INHALATION SCH ×4 (08:42→19:31)
[2022-09-24 09:21] LABS: Anisocytosis Slight; Basophils % (A) 1 %; Eosinophils # (A) 0.1 k/uL (0-0.7); Eosinophils % (A) 3 %; HGB 7.4 gm/dL (13.0-17.5); Hypochromasia Slight; Lymphocytes # (A) 0.8 k/uL (1.0-4.8); Lymphocytes % (A) 17 %; MCH 32.9 pg (25.0-35.0); MCHC 33.7 g/dL (31.0-37.0); MCV 97.8 fL (80.0-100.0); Macrocytosis Slight; Mean Platelet Volume 8.3; Monocytes # (A) 0.3 k/uL (0-1.0); Monocytes % (A) 5 %; Neutrophils # (A) 3.4 k/uL (1.3-7.7); Neutrophils % (A) 70 %; Platelet Count 152 k/uL (150-450); Poikilocytosis Moderate; RBC 2.25 m/uL (4.30-5.90); RDW 16.3 % (11.5-15.5); WBC 4.9 k/uL (3.8-10.6)
[2022-09-24] MEDS: NICOTINE 21MG/24HR PATCH TRANSDERM SCH (09:31)
[2022-09-24] MEDS: ASPIRIN 81 MG PO SCH (09:31)
[2022-09-24] MEDS: GABAPENTIN 100 MG CAP PO SCH ×2 (09:32→21:55)
[2022-09-24] MEDS: levETIRAcetam 500 MG TAB PO SCH ×2 (09:32→21:53)
[2022-09-24] MEDS: METOPROLOL TARTRATE 50 MG TAB PO SCH ×2 (09:32→21:53)
--- NOTE | 2022-09-24 10:04 | P.PN ---
Subjective Patient is seen in follow-up for end-stage renal disease. He is maintained on hemodialysis on Saturday schedule. Scheduled for dialysis today. No active complaints. No chest pain or shortness breath. Vital signs are stable. General: Awake. No acute distress. HEENT: Head exam is unremarkable. LUNGS: Breath sounds decreased. HEART: Rate and Rhythm are regular. ABDOMEN: Soft, no distention. EXTREMITITES: No edema. Objective - Vital Signs Vital signs: Vital Signs Temp 98.4 F 09/24/22 04:00 Pulse 80 09/24/22 04:00 Resp 12 09/24/22 04:00 BP 165/78 09/24/22 04:00 Pulse Ox 96 09/24/22 04:00 FiO2 Intake & Output 09/23/22 09/24/22 09/24/22 18:59 06:59 18:59 Intake Total 701.001 118 Balance 701.001 118 Weight 65.8 kg Intake: Intake, IV Titration 223.001 Amount Heparin Sod,Pork in 0.45% 223.001 NaCl 25,000 unit In 0.45 % NaCl 1 250ml.bag @ 12 UNITS/KG/HR 7.62 mls/hr IV .Q24H [facility] Rx#: [id number] Oral [id number] Other: # Voids 0 # Bowel Movements 1 0 - Labs CBC & Chem 7: 09/24/22 08:51 09/23/22 07:30 Labs: Abnormal Lab Results - Last 24 Hours (Table) 09/24/22 09/24/22 Range/Units 08:51 08:51 RBC 2.25 L (4.30-5.90) m/uL Hgb 7.4 L (13.0-17.5) gm/dL Hct 22.0 L (39.0-53.0) % RDW 16.3 H (11.5-15.5) % Lymphocytes # 0.8 L (1.0-4.8) k/uL APTT 52.0 H (22.0-30.0) sec Microbiology - Last 24 Hours (Table) 09/20/22 10:45 Blood Culture - Preliminary Blood No Growth after 72 hours 09/20/22 10:30 Blood Culture - Preliminary Blood No Growth after 72 hours 09/21/22 14:49 Gram Stain - Final Sputum Sputum Culture - Final Assessment and Plan Plan: Assessment: 1. End-stage renal disease maintained on hemodialysis on Saturday schedule. 2. Non-ST elevated myocardial infarction with severe distal left main disease. Cardiology as well as CTS following. 3. Hypertension with chronic kidney disease. 4. Chronic kidney disease mineral bone disease maintained on Renvela. 5. Anemia of chronic kidney disease. Denies any active bleeding. Plan: Hemodialysis today. Check iron studies. Add Aranesp. Add amlodipine 5 mg twice daily. Await further cardiac recommendations. Patient frequently misses hemodialysis treatments outpatient. Life-threatening effects of noncompliance, including and cardiac disease, has been discussed with the patient multiple times.
[2022-09-24 10:08] LABS: Calcium 8.5 mg/dL (8.4-10.2); Potassium 4.2 mmol/L (3.5-5.1)
[2022-09-24] MEDS ORDERED: DARBEPOETIN ALFA 40 MCG/0.4 ML SYRINGE SQ SCH (10:15)
[2022-09-24] MEDS: HEPARIN SOD,PORK IN 0.45% NACL 25,000 UNIT in 0.45% NACL 1 250ML.BAG IV SCH (11:13)
--- NOTE | 2022-09-24 13:05 | P.PN ---
Subjective This is a 52-year-old male with a past medical history significant for hypertension, hyperlipidemia, end-stage renal disease on hemodialysis, COPD, c urrent nicotine dependence smoking 1 pack per day, CVA, paroxysmal atrial fibrillation not on anticoagulation secondary to anemia and history of GI bleeding, seizure disorder, left lung empyema with left-sided VATS, and pneumonia. Patient follows in the office with Dr. Mayorga. We have been asked to see the patient in consultation for elevated troponin. Patient presented to the hospital to chief complaint of shortness of breath. The patient states he has been short of breath for the past 2-3 days. He states his shortness of breath is usually with exertion. Patient admitted with NSTEMI. He underwent cardiac catheterization on 09/21/[address] Mayorga that revealed Calcified coronary arteries, distal left main has a 70% eccentric lesion, mild disease in the left circumflex with 20- 30% proximal and mid area and RCA with 20-30% plaque different segments. The LAD has no high-grade stenosis Echo revealed EF 45-50% mild to moderate mitral regurgitation 09/24/2022 Patient seen and examined at bedside, no acute distress. He denies any chest pain or shortness of breath. Denies any symptoms of orthopnea or PND. Overall his symptoms have improved. CT surgery team evaluated the patient, Dr. Corral and Dr. Solis feel that patient would be better suited for high risk PCI rather than CABG. Pulmonary following the patient. Vital signs are stable. Hemoglobin stable at 7.4. PHYSICAL EXAM: VITAL SIGNS: Reviewed. GENERAL: Well-developed in no acute distress. Skin color ashen lozano. HEENT: Head is normocephalic. Neck supple. No JVD LUNGS: Respirations even and unlabored. Lungs with decreased air exchange bilaterally, diminished in the bases. HEART: Regular rate and rhythm. S1 and S2 heard. Systolic murmur noted ABDOMEN: Soft. Nondistended. Nontender. EXTREMITIES: Normal range of motion. No clubbing or cyanosis. Peripheral pulses intact. No lower extremity edema NEUROLOGIC: Awake and alert. Oriented x 3. ASSESSMENT: Non-STEMI Pneumonia Febrile illness End-stage renal disease on hemodialysis COPD Hypertension Hyperlipidemia History of CVA Paroxysmal atrial fibrillation not on anticoagulation secondary to anemia and history of GI bleeding History of seizure disorder History of left lung empyema with previous left-sided VATS Nicotine dependence, patient smokes 1 pack per day PLAN: Continue IV heparin infusion Nephrology following for HD. Continue aspirin and statin Continue beta kadeem Patient is not a candidate for surgical intervention per evaluation by Dr. Corral, plan to proceed with high risk PCI of the left main tomorrow with Dr. Mayorga, patient is agreeable I have discussed the risks, benefits and alternative therapies for the above- mentioned procedure and for both sedation/analgesia as well as necessary blood product administration, if indicated, as they pertain to this patient. The patient has indicated understanding and acceptance of the risks and procedures discussed. Questions have been answered appropriately and he is agreeable to m citlallie forward with the above-stated procedure. Monitor hemoglobin NPO after midnight Further recommendations pending patient course Nurse practitioner note has been reviewed by physician. Signing provider agrees with the documented findings, assessment, and plan of care. Objective - Vital Signs Vital signs: Vital Signs Temp 98.4 F 09/24/22 04:00 Pulse 80 09/24/22 04:00 Resp 12 09/24/22 04:00 BP 165/78 09/24/22 04:00 Pulse Ox 96 09/24/22 04:00 FiO2 Intake & Output 09/23/22 09/24/22 09/24/22 18:59 06:59 18:59 Intake Total 701.001 118 Balance 701.001 118 Weight 65.8 kg Intake: Intake, IV Titration 223.001 Amount Heparin Sod,Pork in 0.45% 223.001 NaCl 25,000 unit In 0.45 % NaCl 1 250ml.bag @ 12 UNITS/KG/HR 7.62 mls/hr IV .Q24H [facility] Rx#: [id number] Oral 478 118 Other: # Voids 0 # Bowel Movements 1 0 - Labs CBC & Chem 7: 09/24/22 08:51 09/24/22 08:51 Labs: Abnormal Lab Results - Last 24 Hours (Table) 09/24/22 09/24/22 Range/Units 08:51 08:51 RBC 2.25 L (4.30-5.90) m/uL Hgb 7.4 L (13.0-17.5) gm/dL Hct 22.0 L (39.0-53.0) % RDW 16.3 H (11.5-15.5) % Lymphocytes # 0.8 L (1.0-4.8) k/uL APTT 52.0 H (22.0-30.0) sec Microbiology - Last 24 Hours (Table) 09/20/22 10:45 Blood Culture - Preliminary Blood No Growth after 72 hours 09/20/22 10:30 Blood Culture - Preliminary Blood No Growth after 72 hours 09/21/22 14:49 Gram Stain - Final Sputum Sputum Culture - Final
--- NOTE | 2022-09-24 13:57 | P.PN ---
Subjective Progress Note Date: 09/24/22 52-year-old male seen yesterday in consultation. The patient was found have a distal left main obstruction. I spoke to the yarn dyer, who is going to have the cardiothoracic surgeons see the patient as well. I'm not sure what the plan long-term is. Currently, the patient's on 4 L of oxygen. He is getting saline at 10 mL an hour, and IV heparin. The patient does have severe COPD, with an FEV1 was 46% of predicted, on a PFT that was done back in 2018. He does continue to smoke. Other medical history substantial and includes end-stage renal disease, on 3 time a week hemodialysis, CVA, seizures, myocardial infarction, and chronic hypoxemic respiratory failure. White count 4.6, hemoglobin 7.2, hematocrit 22.1, and platelet count 265,000. PTT is 58. Sodium 139, potassium 3.7, chlorides 97, CO2 25, BUN 41, creatinine 8.73. The patient is seen today 09/24/2022 in follow-up on the selective care unit. He is currently resting comfortably in bed. Awake and alert in no acute distress. He is maintaining O2 saturations in the 90s on 3 L/m per nasal cannula. He is afebrile. Patient culture reveals no growth. Blood cultures reveal no growth. White count 4.9. Hemoglobin 7.4. Sodium 139. Potassium 4.2. BUN 49. Creatinine 10.3. Glucose 103. He is continued on a heparin drip. He remains on bronchodilators. Remains on antibiotics in the form of ceftriaxone. NicoDerm patch in place. The patient is not a cardiac surgery candidate. The plan is for high risk PCI of the left main tomorrow per cardiology. Objective - Vital Signs Vital signs: Vital Signs Temp 98.2 F 09/24/22 12:00 Pulse 72 09/24/22 12:00 Resp 18 09/24/22 12:00 BP 148/77 09/24/22 12:00 Pulse Ox 98 09/24/22 12:00 FiO2 Intake & Output 09/23/22 09/24/22 09/24/22 18:59 06:59 18:59 Intake Total 701.001 593.066 Output Total 200 Balance 701.001 393.066 Weight 65.8 kg Intake: Intake, IV Titration 223.001 235.066 Amount Heparin Sod,Pork in 0.45% 223.001 235.066 NaCl 25,000 unit In 0.45 % NaCl 1 250ml.bag @ 12 UNITS/KG/HR 7.62 mls/hr IV .Q24H [facility] Rx#: [id number] Oral 478 358 Output: Urine 200 Other: # Voids 0 # Bowel Movements 1 0 - Exam GENERAL EXAM: Alert, 52-year-old male patient, on 3 L/m per nasal cannula, comfortable in no apparent distress. HEAD: Normocephalic. EYES: Normal reaction of pupils, equal size. NOSE: Clear with pink turbinates. THROAT: No erythema or exudates. NECK: No masses, no JVD. CHEST: No chest wall deformity. LUNGS: Equal air entry with bilateral scattered rhonchi. CVS: S1 and S2 normal with no audible murmur, regular rhythm. ABDOMEN: No hepatosplenomegaly, normal bowel sounds, no guarding or rigidity. SPINE: No scoliosis or deformity SKIN: No rashes CENTRAL NERVOUS SYSTEM: No focal deficits, tone is normal in all 4 extremities. EXTREMITIES: There is no peripheral edema. No clubbing, no cyanosis. Peripheral pulses are intact. - Labs CBC & Chem 7: 09/24/22 08:51 09/24/22 08:51 Labs: Abnormal Lab Results - Last 24 Hours (Table) 09/24/22 09/24/22 09/24/22 Range/Units 08:51 08:51 08:51 RBC 2.25 L (4.30-5.90) m/uL Hgb 7.4 L (13.0-17.5) gm/dL Hct 22.0 L (39.0-53.0) % RDW 16.3 H (11.5-15.5) % Lymphocytes # 0.8 L (1.0-4.8) k/uL APTT 52.0 H (22.0-30.0) sec BUN 49 H (9-20) mg/dL Creatinine 10.32 H* (0.66-1.25) mg/dL Glucose 103 H (74-99) mg/dL Microbiology - Last 24 Hours (Table) 09/20/22 10:45 Blood Culture - Preliminary Blood No Growth after 96 hours 09/20/22 10:30 Blood Culture - Preliminary Blood No Growth after 96 hours 09/21/22 14:49 Gram Stain - Final Sputum Sputum Culture - Final Assessment and Plan Assessment: Acute non-ST segment elevation myocardial infarction with distal left main coronary obstruction. History of severe COPD, with an FEV1 percent is 46, back in 2018. Chronic hypoxemic respiratory failure, on home O2 at 3 L. Ongoing tobacco use with nicotine addiction. End-stage renal disease, with 3 times a week hemodialysis. History of CVA. Paroxysmal atrial fibrillation, not on anticoagulants due to GI bleed. History of gastric ulcer. History of hypertension. History of pleural and pericardial effusion. History of myocardial infarction. History of coronavirus associated pneumonia. History of seizure disorder. Plan: The patient was seen and evaluated Labs and medications reviewed Continue the current treatment plan Plan is for high risk PCI of the distal left main tomorrow We will continue to follow I have personally seen and examined the patient, performed the documentation and the assessment and plan as written. Number of minutes spent on the visit: 10.
[2022-09-24] MEDS: ATORVASTATIN 80 MG TAB PO SCH (21:53)
[2022-09-24] MEDS: amLODIPine 5 MG TAB PO SCH (21:54)
[2022-09-24] MEDS: ALPRAZolam 0.25 MG TAB PO PRN (21:57)
[2022-09-25] MEDS: NITROGLYCERIN OINT 1 INCH/GM PACKET TOPICAL SCH ×3 (00:29→17:41)
[2022-09-25] MEDS: ACETAMINOPHEN TAB 325 MG TAB PO PRN (00:34)
--- NOTE | 2022-09-25 05:31 | P.PN ---
Subjective Progress Note Date: 09/24/22 Patient is a 52-year-old male with a known history of hypertension, hyperlipidemia, seizure disorder, ESRD on hemodialysis on Saturday and Saturday, history of CVA/TIA, prior history of paroxysmal atrial fibrillation not on anticoagulation due to GI bleed, history of left sided VATS and currently everyday smoker presents to ER with complaints of worsening shortness of for the past 2 to 3 days. Patient has been having exertional dyspnea. Also complains of cough with greenish sputum production and having fever at home.Patient is somewhat poor historian. Admission 100.1. Patient is requiring oxygen at 3 L via nasal cannula. EMS reports fever of T-max of 102.3. Patient had last hemodialysis on Saturday. Patient did have prior history of recurrent pneumonia. Otherwise denied any complaints of chest pain. No headache or dizziness or lightheadedness. No nausea vomiting abdominal pain or diarrhea. Patient is also having chronic back pain and spinal stenosis with degenerative disc disease. Chest x-ray showed mild cardiomegaly and interstitial changes. Correlate for possible pulmonary vascular congestion. Right midlung airspace disease and additional patchy infiltrate in the right lower lobe. Findings could represent atypical pulmonary edema versus multifocal pneumonia. EKG showed showed sinus rhythm with left ventricular hypertrophy. Laboratory data showed WBC 10.3 hemoglobin 8.2 and platelets 116 Sodium 134 potassium 4.2 chloride 91 bicarb is 28 BUN 31 creatinine 6.87 Liver enzymes are not elevated and troponin level is 11.6, 18.4 proBNP 14990 Coronavirus PCR and influenza a and B not detected. 09/21/2022 Patient is seen and evaluated in follow-up this morning with cardiology and nephrology following. Patient is scheduled for cardiac catheterization and will tentatively be scheduled for hemodialysis after. Patient did have an echo done showing an EF of 45-50%. Await echo report. Patient is continued on 2-3 L via nasal cannula and reports continued shortness of breath. Patient is continued on IV antibiotics for the right lower lobe possible pneumonia and currently awaiting a pending pro-calcitonin at this time. 09/24/2022 Patient is seen and evaluated in follow-up today currently sitting up at the side of the bed with cardiology and nephrology following. Patient reports he is being scheduled for PCI stent placement with cardiology possibly in the next day or so. Patient was being followed by cardiothoracic surgery for possible CABG although told he was not a candidate. Patient is afebrile and denies worsening shortness of breath or chest pains. Review of systems: Constitutional: No reports of fatigue, fever, or chills Cardiovascular: No reports of chest pain or palpitations Respiratory: No reports of shortness of breath or cough GI: No reports of nausea, vomiting, or diarrhea : No reports of dysuria or retention Neurovascular: No reports of weakness or numbness All medications have been reviewed PHYSICAL EXAMINATION: Patient is sitting up at the side of the bed comfortably, no acute distress, awake alert and oriented.. HEENT: Normocephalic. Neck is supple. Pupils reactive. Nostrils clear. Oral cavity is moist. Neck reveals no JVD, carotid bruits, or thyromegaly. CHEST EXAMINATION: Trachea is central. Symmetrical expansion bibasilar scattered rhonchi. Nonlabored breathing.. CARDIAC: Normal S1, S2 with no gallops. No murmurs ABDOMEN: Soft. Bowel sounds present. Nontender. No organomegaly. No abdominal bruits. Extremities: reveal no edema. No clubbing or cyanosis Neurologically awake, alert, oriented x2-3 with well-coordinated movements. No gross focal deficits noted Skin: No rash or skin lesions. Psychiatric: Cooperative. Non-suicidal, Musculoskeletal: No joint swelling or deformity. Normal range of motion. Assessment: Worsening shortness of breath Secondary to pulmonary vascular congestion and pneumonia Acute right lower lobe multifocal pneumonia Acute non-ST elevated ND Elevated troponin level ESRD on hemodialysis Saturday and Saturday Paroxysmal atrial fibrillation not on anticoagulation due to history of prior GI bleed Hypertension Chronic thrombocytopenia History of seizure disorder Hyperlipidemia History of left thalamus CVA no residual focal deficits Currently everyday smoker DVT prophylaxis Plan: Patient will be continued on telemetry monitoring. Patient on heparin drip and cardiology following and is going to microbiological laboratory technician tentatively tomorrow for PCI stenting to the left main. Patient was evaluated by CT surgery and not a surgical candidate for CABG. Patient is continued on antibiotics in the form of ceftriaxone. Sputum and blood cultures are negative. Procalcitonin was elevated Nephrology following and to continue with hemodialysis. Continue with duo nebs and symptomatic management and pain management. Prognosis is guarded at this time. Await cath report. Plan for PCI stenting to the left main in am. The impression and plan of care has been dictated by Joanna Jefferson, Nurse Practitioner as directed. Dr. Mc MD I have performed a history and examination and MDM of this patient, discussed the same with the dictator, and agree with the dictator's assessment and plan as written ,documented as a scribe. Based on total visit time, I have performed more than 50% of the visit. Objective - Vital Signs Vital signs: Vital Signs Temp 98.2 F 09/24/22 12:00 Pulse 72 09/24/22 14:00 Resp 18 09/24/22 14:00 BP 148/77 09/24/22 12:00 Pulse Ox 98 09/24/22 12:00 FiO2 Intake & Output 09/23/22 09/24/22 09/24/22 18:59 06:59 18:59 Intake Total 701.001 593.066 Output Total 200 Balance 701.001 393.066 Weight 65.8 kg Intake: Intake, IV Titration 223.001 235.066 Amount Heparin Sod,Pork in 0.45% 223.001 235.066 NaCl 25,000 unit In 0.45 % NaCl 1 250ml.bag @ 12 UNITS/KG/HR 7.62 mls/hr IV .Q24H [facility] Rx#: [id number] Oral 478 358 Output: Urine 200 Other: # Voids 0 # Bowel Movements 1 0 - Labs CBC & Chem 7: 09/24/22 08:51 09/24/22 08:51 Labs: Abnormal Lab Results - Last 24 Hours (Table) 09/24/22 09/24/22 09/24/22 Range/Units 08:51 08:51 08:51 RBC 2.25 L (4.30-5.90) m/uL Hgb 7.4 L (13.0-17.5) gm/dL Hct 22.0 L (39.0-53.0) % RDW 16.3 H (11.5-15.5) % Lymphocytes # 0.8 L (1.0-4.8) k/uL APTT 52.0 H (22.0-30.0) sec BUN 49 H (9-20) mg/dL Creatinine 10.32 H* (0.66-1.25) mg/dL Glucose 103 H (74-99) mg/dL Microbiology - Last 24 Hours (Table) 09/20/22 10:45 Blood Culture - Preliminary Blood No Growth after 96 hours 09/20/22 10:30 Blood Culture - Preliminary Blood No Growth after 96 hours
[2022-09-25] MEDS: SEVELAMER 800 MG TAB PO SCH ×4 (06:58→21:09)
[2022-09-25] MEDS: PANTOPRAZOLE 40 MG TABLET PO SCH ×2 (06:59→17:40)
[2022-09-25] MEDS ORDERED: HEPARIN SODIUM,PORCINE 10,000 UNIT in SODIUM CHLORIDE 0.9% 1,000 ML IRRIGATION PRN (07:00)
[2022-09-25] MEDS ORDERED: HEPARIN SODIUM,PORCINE 2,500 UNIT in SODIUM CHLORIDE 0.9% 250 ML IRRIGATION PRN (07:00)
[2022-09-25] MEDS: HEPARIN SOD,PORK IN 0.45% NACL 25,000 UNIT in 0.45% NACL 1 250ML.BAG IV SCH (07:02)
[2022-09-25] MEDS: IPRATROPIUM-ALBUTEROL 3 ML NEB INHALATION SCH ×4 (08:43→20:40)
[2022-09-25] MEDS: amLODIPine 5 MG TAB PO SCH ×2 (08:45→21:08)
[2022-09-25] MEDS: ASPIRIN 81 MG PO SCH (08:46)
[2022-09-25] MEDS: GABAPENTIN 100 MG CAP PO SCH ×2 (08:46→21:10)
[2022-09-25] MEDS: METOPROLOL TARTRATE 50 MG TAB PO SCH ×2 (08:46→21:10)
[2022-09-25] MEDS: NICOTINE 21MG/24HR PATCH TRANSDERM SCH (08:46)
[2022-09-25] MEDS: levETIRAcetam 500 MG TAB PO SCH ×2 (08:46→21:10)
[2022-09-25] MEDS ORDERED: hydrALAZINE HCL 20 MG/ML 1 ML VIAL IVP PRN (10:07)
--- NOTE | 2022-09-25 10:08 | P.PN ---
Subjective Patient is seen in follow-up for end-stage renal disease. He is maintained on hemodialysis on Saturday schedule. No problems with dialysis yesterday. Scheduled for a cardiac catheterization with stent placement today. No active complaints. No chest pain or shortness breath. Vital signs are stable. General: Awake. No acute distress. HEENT: Head exam is unremarkable. LUNGS: Breath sounds decreased. HEART: Rate and Rhythm are regular. ABDOMEN: Soft, no distention. EXTREMITITES: No edema. Objective - Vital Signs Vital signs: Vital Signs Temp 98.0 F 09/25/22 08:50 Pulse 62 09/25/22 08:50 Resp 17 09/25/22 08:50 BP 184/86 09/25/22 08:50 Pulse Ox 100 09/25/22 08:50 FiO2 Intake & Output 09/24/22 09/25/22 09/25/22 18:59 06:59 18:59 Intake Total 1011.066 238.887 Output Total 3500 Balance -2488.934 238.887 Weight 64 kg Intake: Intake, IV Titration 235.066 238.887 Amount Heparin Sod,Pork in 0.45% 235.066 238.887 NaCl 25,000 unit In 0.45 % NaCl 1 250ml.bag @ 12 UNITS/KG/HR 7.62 mls/hr IV .Q24H [facility] Rx#: [id number] Oral 476 Hemodialysis 300 Output: Urine 200 Hemodialysis 3300 Other: Voiding Method Urinal # Voids 0 # Bowel Movements 0 - Labs CBC & Chem 7: 09/24/22 08:51 09/24/22 08:51 Labs: Abnormal Lab Results - Last 24 Hours (Table) 09/24/22 09/24/22 Range/Units 08:51 10:32 BUN 49 H (9-20) mg/dL Creatinine 10.32 H* (0.66-1.25) mg/dL Glucose 103 H (74-99) mg/dL Transferrin 130.0 L (204.0-354.0) mg/dL Ferritin 1480.0 H (22.0-322.0) ng/mL Microbiology - Last 24 Hours (Table) 09/20/22 10:45 Blood Culture - Preliminary Blood No Growth after 96 hours 09/20/22 10:30 Blood Culture - Preliminary Blood No Growth after 96 hours Assessment and Plan Plan: Assessment: 1. End-stage renal disease maintained on hemodialysis on Saturday schedule. 2. Non-ST elevated myocardial infarction with severe distal left main disease. Cardiology as well as CTS following. 3. Hypertension with chronic kidney disease. 4. Chronic kidney disease mineral bone disease maintained on Renvela. 5. Anemia of chronic kidney disease. Denies any active bleeding. On Aranesp. Plan: Hemodialysis tomorrow. Add hydralazine. Cardiac cath with stent placement today. Patient frequently misses hemodialysis treatments outpatient. Life-threatening effects of noncompliance, including and cardiac disease, has been discussed with the patient multiple times.
[2022-09-25 11:21] LABS: Anisocytosis Slight; Basophils # (A) 0.1 k/uL (0-0.2); Basophils % (A) 1 %; Eosinophils # (A) 0.1 k/uL (0-0.7); Eosinophils % (A) 2 %; HCT 20.7 % (39.0-53.0); Hypochromasia Moderate; Lymphocytes # (A) 0.8 k/uL (1.0-4.8); Lymphocytes % (A) 13 %; MCH 31.7 pg (25.0-35.0); MCHC 32.1 g/dL (31.0-37.0); MCV 98.8 fL (80.0-100.0); Macrocytosis Slight; Mean Platelet Volume 8.2; Monocytes # (A) 0.3 k/uL (0-1.0); Monocytes % (A) 5 %; Neutrophils # (A) 4.7 k/uL (1.3-7.7); Neutrophils % (A) 76 %; Platelet Count 177 k/uL (150-450); Poikilocytosis Moderate; RBC 2.09 m/uL (4.30-5.90); RDW 16.7 % (11.5-15.5); WBC 6.2 k/uL (3.8-10.6)
[2022-09-25 11:26] LABS: HGB 6.6 gm/dL (13.0-17.5)
[2022-09-25 11:34] LABS: Calcium 8.6 mg/dL (8.4-10.2); Potassium 4.4 mmol/L (3.5-5.1)
[2022-09-25] MEDS: hydrALAZINE HCL 50 MG TAB PO SCH ×3 (12:26→21:09)
--- NOTE | 2022-09-25 14:52 | P.PN ---
Subjective Progress Note Date: 09/25/22 52-year-old male seen yesterday in consultation. The patient was found have a distal left main obstruction. I spoke to the information officer, who is going to have the cardiothoracic surgeons see the patient as well. I'm not sure what the plan long-term is. Currently, the patient's on 4 L of oxygen. He is getting saline at 10 mL an hour, and IV heparin. The patient does have severe COPD, with an FEV1 was 46% of predicted, on a PFT that was done back in 2018. He does continue to smoke. Other medical history substantial and includes end-stage renal disease, on 3 time a week hemodialysis, CVA, seizures, myocardial infarction, and chronic hypoxemic respiratory failure. White count 4.6, hemoglobin 7.2, hematocrit 22.1, and platelet count 265,000. PTT is 58. Sodium 139, potassium 3.7, chlorides 97, CO2 25, BUN 41, creatinine 8.73. The patient is seen today 09/24/2022 in follow-up on the selective care unit. He is currently resting comfortably in bed. Awake and alert in no acute distress. He is maintaining O2 saturations in the 90s on 3 L/m per nasal cannula. He is afebrile. Patient culture reveals no growth. Blood cultures reveal no growth. White count 4.9. Hemoglobin 7.4. Sodium 139. Potassium 4.2. BUN 49. Creatinine 10.3. Glucose 103. He is continued on a heparin drip. He remains on bronchodilators. Remains on antibiotics in the form of ceftriaxone. NicoDerm patch in place. The patient is not a cardiac surgery candidate. The plan is for high risk PCI of the left main tomorrow per cardiology. The patient is seen today 09/25/2022 in follow-up on the selective care unit. He is currently sitting up at the bedside. Awake and alert in no acute distress. He is maintaining good O2 saturations in the 90s on 2 L/m per nasal cannula. Sputum culture reveals no growth. Blood cultures revealed no growth. White count 6.2. Hemoglobin 6.6. Platelets 177. Sodium 141 potassium 4.4. BUN 30. Creatinine 6.77. He is on a heparin drip. Antibiotics in the form of ceftriaxone. Remains on bronchodilators. Plan is for PCI of the left main as the patient is considered too high risk for any surgical intervention. Objective - Vital Signs Vital signs: Vital Signs Temp 97.4 F L 09/25/22 12:00 Pulse 72 09/25/22 12:03 Resp 16 09/25/22 12:00 BP 173/88 09/25/22 12:00 Pulse Ox 96 09/25/22 12:00 FiO2 Intake & Output 09/24/22 09/25/22 09/25/22 18:59 06:59 18:59 Intake Total 1011.066 238.887 Output Total 3500 100 Balance -2488.934 138.887 Weight 64 kg 64 kg Intake: Intake, IV Titration 235.066 238.887 Amount Heparin Sod,Pork in 0.45% 235.066 238.887 NaCl 25,000 unit In 0.45 % NaCl 1 250ml.bag @ 12 UNITS/KG/HR 7.62 mls/hr IV .Q24H [facility] Rx#: [id number] Oral 476 Hemodialysis 300 Output: Urine 200 100 Hemodialysis 3300 Other: Voiding Method Urinal # Voids 0 # Bowel Movements 0 - Exam GENERAL EXAM: Alert, 52-year-old male patient, pale, on 2 L/m per nasal cannula, comfortable in no apparent distress. HEAD: Normocephalic. EYES: Normal reaction of pupils, equal size. NOSE: Clear with pink turbinates. THROAT: No erythema or exudates. NECK: No masses, no JVD. CHEST: No chest wall deformity. LUNGS: Equal air entry with bilateral scattered rhonchi. CVS: S1 and S2 normal with no audible murmur, regular rhythm. ABDOMEN: No hepatosplenomegaly, normal bowel sounds, no guarding or rigidity. SPINE: No scoliosis or deformity SKIN: No rashes CENTRAL NERVOUS SYSTEM: No focal deficits, tone is normal in all 4 extremities. EXTREMITIES: There is no peripheral edema. No clubbing, no cyanosis. Peripheral pulses are intact. - Labs CBC & Chem 7: 09/25/22 10:54 09/25/22 10:54 Labs: Abnormal Lab Results - Last 24 Hours (Table) 09/24/22 09/25/22 09/25/22 Range/Units 10:32 10:54 10:54 RBC 2.09 L (4.30-5.90) m/uL Hgb 6.6 L* (13.0-17.5) gm/dL Hct 20.7 L (39.0-53.0) % RDW 16.7 H (11.5-15.5) % Lymphocytes # 0.8 L (1.0-4.8) k/uL APTT 52.1 H (22.0-30.0) sec BUN (9-20) mg/dL Creatinine (0.66-1.25) mg/dL Transferrin 130.0 L (204.0-354.0) mg/dL Ferritin 1480.0 H (22.0-322.0) ng/mL Crossmatch 09/25/22 09/25/22 Range/Units 10:54 12:44 RBC (4.30-5.90) m/uL Hgb (13.0-17.5) gm/dL Hct (39.0-53.0) % RDW (11.5-15.5) % Lymphocytes # (1.0-4.8) k/uL APTT (22.0-30.0) sec BUN 30 H (9-20) mg/dL Creatinine 6.77 H (0.66-1.25) mg/dL Transferrin (204.0-354.0) mg/dL Ferritin (22.0-322.0) ng/mL Crossmatch See Detail Microbiology - Last 24 Hours (Table) 09/20/22 10:45 Blood Culture - Preliminary Blood No Growth after 120 hours 09/20/22 10:30 Blood Culture - Preliminary Blood No Growth after 120 hours Assessment and Plan Assessment: Acute non-ST segment elevation myocardial infarction with distal left main coron karlo obstruction. Anemia of chronic disease, current hemoglobin 6.6. Awaiting 1 unit of packed red blood cells History of severe COPD, with an FEV1 percent is 46, back in 2018. Chronic hypoxemic respiratory failure, on home O2 at 3 L. Ongoing tobacco use with nicotine addiction. End-stage renal disease, with 3 times a week hemodialysis. History of CVA. Paroxysmal atrial fibrillation, not on anticoagulants due to GI bleed. History of gastric ulcer. History of hypertension. History of pleural and pericardial effusion. History of myocardial infarction. History of coronavirus associated pneumonia. History of seizure disorder. Plan: The patient was seen and evaluated Labs and medications reviewed To receive 1 unit of packed red blood cells today Continue the current treatment plan Plan is for high risk PCI of the distal left main Titrate the FiO2 as tolerated We will continue to follow I have personally seen and examined the patient, performed the documentation and the assessment and plan as written. Number of minutes spent on the visit: 10.
--- NOTE | 2022-09-25 15:00 | P.PN ---
Subjective This is a 52-year-old male with a past medical history significant for hypertension, hyperlipidemia, end-stage renal disease on hemodialysis, COPD, c urrent nicotine dependence smoking 1 pack per day, CVA, paroxysmal atrial fibrillation not on anticoagulation secondary to anemia and history of GI bleeding, seizure disorder, left lung empyema with left-sided VATS, and pneumonia. Patient follows in the office with Dr. Mayorga. We have been asked to see the patient in consultation for elevated troponin. Patient presented to the hospital to chief complaint of shortness of breath. The patient states he has been short of breath for the past 2-3 days. He states his shortness of breath is usually with exertion. Patient admitted with NSTEMI. He underwent cardiac catheterization on 09/21/[address] Mayorga that revealed Calcified coronary arteries, distal left main has a 70% eccentric lesion, mild disease in the left circumflex with 20- 30% proximal and mid area and RCA with 20-30% plaque different segments. The LAD has no high-grade stenosis Echo revealed EF 45-50% mild to moderate mitral regurgitation 09/25/2022 Patient seen and examined at bedside, no acute distress. Unfortunately his hemoglobin dropped to 6.6. and cardiac cath is cancelled. No bleeding per patient. He denies any chest pain or shortness of breath. Denies any symptoms of orthopnea or PND. Overall his symptoms have improved. CT surgery team evaluated the patient, Dr. Corral and Dr. Solis feel that patient would be better suited for high risk PCI rather than CABG. Pulmonary following the patient. Nephrology following as well. Vital signs are stable. PHYSICAL EXAM: VITAL SIGNS: Reviewed. GENERAL: Well-developed in no acute distress. Skin color ashen lozano. HEENT: Head is normocephalic. Neck supple. No JVD LUNGS: Respirations even and unlabored. Lungs with decreased air exchange bilaterally, diminished in the bases. HEART: Regular rate and rhythm. S1 and S2 heard. Systolic murmur noted ABDOMEN: Soft. Nondistended. Nontender. EXTREMITIES: Normal range of motion. No clubbing or cyanosis. Peripheral pulses intact. No lower extremity edema NEUROLOGIC: Awake and alert. Oriented x 3. ASSESSMENT: Non-STEMI Pneumonia Febrile illness End-stage renal disease on hemodialysis COPD Hypertension Hyperlipidemia History of CVA Paroxysmal atrial fibrillation not on anticoagulation secondary to anemia and history of GI bleeding History of seizure disorder History of left lung empyema with previous left-sided VATS Nicotine dependence, patient smokes 1 pack per day Anemia of chronic disease Hgb 6.6. PLAN: Continue IV heparin infusion Nephrology following for HD, recommendations appreciated Plan for 1 unit of PRBC Monitor hemoglobin Continue aspirin and statin Continue beta kadeem NPO after midnight for possible procedure tomorrow Further recommendations pending patient course Nurse practitioner note has been reviewed by physician. Signing provider agrees with the documented findings, assessment, and plan of care. Objective - Vital Signs Vital signs: Vital Signs Temp 97.4 F L 09/25/22 12:00 Pulse 72 09/25/22 12:03 Resp 16 09/25/22 12:00 BP 173/88 09/25/22 12:00 Pulse Ox 96 09/25/22 12:00 FiO2 Intake & Output 09/24/22 09/25/22 09/25/22 18:59 06:59 18:59 Intake Total 1011.066 238.887 Output Total 3500 100 Balance -2488.934 138.887 Weight 64 kg Intake: Intake, IV Titration 235.066 238.887 Amount Heparin Sod,Pork in 0.45% 235.066 238.887 NaCl 25,000 unit In 0.45 % NaCl 1 250ml.bag @ 12 UNITS/KG/HR 7.62 mls/hr IV .Q24H [facility] Rx#: [id number] Oral 476 Hemodialysis 300 Output: Urine 200 100 Hemodialysis 3300 Other: Voiding Method Urinal # Voids 0 # Bowel Movements 0 - Labs CBC & Chem 7: 09/25/22 10:54 09/25/22 10:54 Labs: Abnormal Lab Results - Last 24 Hours (Table) 09/24/22 09/25/22 09/25/22 Range/Units 10:32 10:54 10:54 RBC 2.09 L (4.30-5.90) m/uL Hgb 6.6 L* (13.0-17.5) gm/dL Hct 20.7 L (39.0-53.0) % RDW 16.7 H (11.5-15.5) % Lymphocytes # 0.8 L (1.0-4.8) k/uL APTT 52.1 H (22.0-30.0) sec BUN (9-20) mg/dL Creatinine (0.66-1.25) mg/dL Transferrin 130.0 L (204.0-354.0) mg/dL Ferritin 1480.0 H (22.0-322.0) ng/mL 09/25/22 Range/Units 10:54 RBC (4.30-5.90) m/uL Hgb (13.0-17.5) gm/dL Hct (39.0-53.0) % RDW (11.5-15.5) % Lymphocytes # (1.0-4.8) k/uL APTT (22.0-30.0) sec BUN 30 H (9-20) mg/dL Creatinine 6.77 H (0.66-1.25) mg/dL Transferrin (204.0-354.0) mg/dL Ferritin (22.0-322.0) ng/mL Microbiology - Last 24 Hours (Table) 09/20/22 10:45 Blood Culture - Preliminary Blood No Growth after 120 hours 09/20/22 10:30 Blood Culture - Preliminary Blood No Growth after 120 hours
--- NOTE | 2022-09-25 19:43 | P.PN ---
Subjective Progress Note Date: 09/25/22 Patient is a 52-year-old male with a known history of hypertension, hyperlipidemia, seizure disorder, ESRD on hemodialysis on Saturday and Saturday, history of CVA/TIA, prior history of paroxysmal atrial fibrillation not on anticoagulation due to GI bleed, history of left sided VATS and currently everyday smoker presents to ER with complaints of worsening shortness of for the past 2 to 3 days. Patient has been having exertional dyspnea. Also complains of cough with greenish sputum production and having fever at home.Patient is somewhat poor historian. Admission 100.1. Patient is requiring oxygen at 3 L via nasal cannula. EMS reports fever of T-max of 102.3. Patient had last hemodialysis on Saturday. Patient did have prior history of recurrent pneumonia. Otherwise denied any complaints of chest pain. No headache or dizziness or lightheadedness. No nausea vomiting abdominal pain or diarrhea. Patient is also having chronic back pain and spinal stenosis with degenerative disc disease. Chest x-ray showed mild cardiomegaly and interstitial changes. Correlate for possible pulmonary vascular congestion. Right midlung airspace disease and additional patchy infiltrate in the right lower lobe. Findings could represent atypical pulmonary edema versus multifocal pneumonia. EKG showed showed sinus rhythm with left ventricular hypertrophy. Laboratory data showed WBC 10.3 hemoglobin 8.2 and platelets 116 Sodium 134 potassium 4.2 chloride 91 bicarb is 28 BUN 31 creatinine 6.87 Liver enzymes are not elevated and troponin level is 11.6, 18.4 proBNP 68057 Coronavirus PCR and influenza a and B not detected. 09/21/2022 Patient is seen and evaluated in follow-up this morning with cardiology and nephrology following. Patient is scheduled for cardiac catheterization and will tentatively be scheduled for hemodialysis after. Patient did have an echo done showing an EF of 45-50%. Await echo report. Patient is continued on 2-3 L via nasal cannula and reports continued shortness of breath. Patient is continued on IV antibiotics for the right lower lobe possible pneumonia and currently awaiting a pending pro-calcitonin at this time. 09/24/2022 Patient is seen and evaluated in follow-up today currently sitting up at the side of the bed with cardiology and nephrology following. Patient reports he is being scheduled for PCI stent placement with cardiology possibly in the next day or so. Patient was being followed by cardiothoracic surgery for possible CABG although told he was not a candidate. Patient is afebrile and denies worsening shortness of breath or chest pains. 09/25/2022 Patient is seen this morning and was scheduled for PCI stenting although hemo globin came back low at 6.6 and cardiology cancelled the cath today. One unit of prbc ordered and pending. Recommend repeat labs in the am and will plan for cath in the am. Patient is afebrile and denies chest pain or worsening shortness of breath. Nephrology following today with no plans for hemodialysis and to receive tomorrow. Patient is upset that the procedure was cancelled and is reporting he is hungry. Will order diet and NPO at midnight. Discussed with nursing staff to feed the patient. Patient is also continued on heparin drip and cardiology may hold due to drop in hemoglobin. Review of systems: Constitutional: No reports of fatigue, fever, or chills Cardiovascular: No reports of chest pain or palpitations Respiratory: No reports of shortness of breath or cough GI: No reports of nausea, vomiting, or diarrhea : No reports of dysuria or retention Neurovascular: No reports of weakness or numbness All medications have been reviewed PHYSICAL EXAMINATION: Patient is sitting up at the side of the bed comfortably, no acute distress, awake alert and oriented.. anxious to have procedure done HEENT: Normocephalic. Neck is supple. Pupils reactive. Nostrils clear. Oral cavity is moist. Neck reveals no JVD, carotid bruits, or thyromegaly. CHEST EXAMINATION: Trachea is central. Symmetrical expansion bibasilar scattered rhonchi. Nonlabored breathing.. CARDIAC: Normal S1, S2 with no gallops. No murmurs ABDOMEN: Soft. Bowel sounds present. Nontender. No organomegaly. No abdominal bruits. Extremities: reveal no edema. No clubbing or cyanosis Neurologically awake, alert, oriented x2-3 with well-coordinated movements. No gross focal deficits noted Skin: No rash or skin lesions. Psychiatric: Cooperative. Non-suicidal, Musculoskeletal: No joint swelling or deformity. Normal range of motion. Assessment: Worsening shortness of breath Secondary to pulmonary vascular congestion and pneumonia Acute right lower lobe multifocal pneumonia Acute non-ST elevated [place] Elevated troponin level ESRD on hemodialysis Saturday and Saturday anemia, most likely of chronic disease Paroxysmal atrial fibrillation not on anticoagulation due to history of prior GI bleed Hypertension Chronic thrombocytopenia History of seizure disorder Hyperlipidemia History of left thalamus CVA no residual focal deficits Currently everyday smoker DVT prophylaxis Plan: Patient will be continued on telemetry monitoring. Patient on heparin drip and cardiology discussing possibly holding as patient had a drop in hemoglobin of 6.6. Will transfuse one unit. Follow up labs in am. Cardiology following and cancelled label press operator today for PCI stenting to the left main due to anemia. Patient is continued on antibiotics in the form of ceftriaxone. Sputum and blood cultures are negative. Procalcitonin was elevated Nephrology following and to continue with hemodialysis.dialysis for tomorrow Continue with duo nebs and symptomatic management and pain management. Prognosis is guarded at this time. Await cath report. Plan for PCI stenting to the left main in am if hemoglobin is stable. The impression and plan of care has been dictated by Joanna Jefferson, Nurse Practitioner as directed. Dr. Mc MD I have performed a history and examination and MDM of this patient, discussed the same with the dictator, and agree with the dictator's assessment and plan as written ,documented as a scribe. Based on total visit time, I have performed more than 50% of the visit. Objective - Vital Signs Vital signs: Vital Signs Temp 99 F 09/25/22 19: Pulse 84 09/25/22 19:22 Resp 16 09/25/22 19:22 BP 148/76 09/25/22 19:22 Pulse Ox 92 L 09/25/22 19:22 FiO2 Intake & Output 09/25/22 09/25/22 09/26/22 06:59 18:59 06:59 Intake Total 238.887 310 Output Total 100 Balance 138.887 310 Weight 64 kg 64 kg Intake: Intake, IV Titration 238.887 Amount Heparin Sod,Pork in 0.45% 238.887 NaCl 25,000 unit In 0.45 % NaCl 1 250ml.bag @ 12 UNITS/KG/HR 7.62 mls/hr IV .Q24H [facility] Rx#: [id number] Blood Product 0 310 Rc As-1 Unit 0 310 [id number] Output: Urine 100 Other: Voiding Method Urinal # Voids 0 # Bowel Movements 0 - Labs CBC & Chem 7: 09/25/22 10:54 09/25/22 10:54 Labs: Abnormal Lab Results - Last 24 Hours (Table) 09/25/22 09/25/22 09/25/22 Range/Units 10:54 10:54 10:54 RBC 2.09 L (4.30-5.90) m/uL Hgb 6.6 L* (13.0-17.5) gm/dL Hct 20.7 L (39.0-53.0) % RDW 16.7 H (11.5-15.5) % Lymphocytes # 0.8 L (1.0-4.8) k/uL APTT 52.1 H (22.0-30.0) sec BUN 30 H (9-20) mg/dL Creatinine 6.77 H (0.66-1.25) mg/dL Crossmatch 09/25/22 Range/Units 12:44 RBC (4.30-5.90) m/uL Hgb (13.0-17.5) gm/dL Hct (39.0-53.0) % RDW (11.5-15.5) % Lymphocytes # (1.0-4.8) k/uL APTT (22.0-30.0) sec BUN (9-20) mg/dL Creatinine (0.66-1.25) mg/dL Crossmatch See Detail Microbiology - Last 24 Hours (Table) 09/20/22 10:45 Blood Culture - Preliminary Blood No Growth after 120 hours 09/20/22 10:30 Blood Culture - Preliminary Blood No Growth after 120 hours
[2022-09-25] MEDS: ALPRAZolam 0.5 MG TAB PO PRN (21:09)
[2022-09-25] MEDS: ATORVASTATIN 80 MG TAB PO SCH (21:10)
[2022-09-26] MEDS: NITROGLYCERIN OINT 1 INCH/GM PACKET TOPICAL SCH ×2 (00:20→08:16)
[2022-09-26] MEDS: IPRATROPIUM-ALBUTEROL 3 ML NEB INHALATION PRN (00:20)
[2022-09-26] MEDS: ACETAMINOPHEN TAB 325 MG TAB PO PRN (00:38)
[2022-09-26] MEDS: SEVELAMER 800 MG TAB PO SCH ×4 (06:13→20:47)
[2022-09-26] MEDS: PANTOPRAZOLE 40 MG TABLET PO SCH ×2 (06:35→17:53)
[2022-09-26] MEDS: hydrALAZINE HCL 50 MG TAB PO SCH ×3 (06:35→20:05)
[2022-09-26] MEDS: IPRATROPIUM-ALBUTEROL 3 ML NEB INHALATION SCH ×4 (07:28→20:52)
[2022-09-26] MEDS: amLODIPine 5 MG TAB PO SCH ×2 (08:16→20:05)
[2022-09-26] MEDS: ASPIRIN 81 MG PO SCH (08:16)
[2022-09-26] MEDS: levETIRAcetam 500 MG TAB PO SCH ×2 (08:16→20:04)
[2022-09-26] MEDS: METOPROLOL TARTRATE 50 MG TAB PO SCH ×2 (08:16→20:04)
[2022-09-26] MEDS: NICOTINE 21MG/24HR PATCH TRANSDERM SCH (08:16)
[2022-09-26] MEDS: GABAPENTIN 100 MG CAP PO SCH ×2 (08:16→20:05)
[2022-09-26 08:33] LABS: Anisocytosis Slight; Basophils # (A) 0.1 k/uL (0-0.2); Basophils % (A) 1 %; Eosinophils # (A) 0.1 k/uL (0-0.7); Eosinophils % (A) 2 %; HCT 22.6 % (39.0-53.0); HGB 7.4 gm/dL (13.0-17.5); Hypochromasia Moderate; Lymphocytes # (A) 0.8 k/uL (1.0-4.8); Lymphocytes % (A) 11 %; MCH 31.7 pg (25.0-35.0); MCHC 32.7 g/dL (31.0-37.0); MCV 96.9 fL (80.0-100.0); Macrocytosis Slight; Mean Platelet Volume 8.4; Monocytes # (A) 0.3 k/uL (0-1.0); Monocytes % (A) 5 %; Neutrophils % (A) 81 %; Platelet Count 160 k/uL (150-450); Poikilocytosis Moderate; RBC 2.33 m/uL (4.30-5.90); RDW 16.9 % (11.5-15.5); WBC 7.4 k/uL (3.8-10.6)
[2022-09-26 08:39] LABS: Calcium 8.6 mg/dL (8.4-10.2); Potassium 4.5 mmol/L (3.5-5.1)
--- NOTE | 2022-09-26 09:29 | P.PN ---
Subjective Patient is seen in follow-up for end-stage renal disease. He is maintained on hemodialysis on Saturday schedule. Hemoglobin was low yesterday and he received a unit of blood. Hemoccult 7.4 this morning. Denies any active bleeding. Scheduled for cardiac catheterization today. Vital signs are stable. General: Awake. No acute distress. HEENT: Head exam is unremarkable. LUNGS: Breath sounds decreased. HEART: Rate and Rhythm are regular. ABDOMEN: Soft, no distention. EXTREMITITES: No edema. Objective - Vital Signs Vital signs: Vital Signs Temp 98 F 09/26/22 04:00 Pulse 71 09/26/22 08:00 Resp 16 09/26/22 08:00 BP 170/74 09/26/22 08:00 Pulse Ox 99 09/26/22 08:00 FiO2 Intake & Output 09/25/22 09/26/22 09/26/22 18:59 06:59 18:59 Intake Total 238.887 550 Output Total 100 Balance 138.887 550 Weight 64 kg Intake: Intake, IV Titration 238.887 Amount Heparin Sod,Pork in 0.45% 238.887 NaCl 25,000 unit In 0.45 % NaCl 1 250ml.bag @ 12 UNITS/KG/HR 7.62 mls/hr IV .Q24H [facility] Rx#: [id number] Oral 240 Blood Product 0 310 Rc As-1 Unit 0 310 [id number] Output: Urine 100 Other: Voiding Method Urinal # Voids 0 # Bowel Movements 0 - Labs CBC & Chem 7: 09/26/22 06:54 09/26/22 06:54 Labs: Abnormal Lab Results - Last 24 Hours (Table) 09/25/22 09/25/22 09/25/22 Range/Units 10:54 10:54 10:54 RBC 2.09 L (4.30-5.90) m/uL Hgb 6.6 L* (13.0-17.5) gm/dL Hct 20.7 L (39.0-53.0) % RDW 16.7 H (11.5-15.5) % Lymphocytes # 0.8 L (1.0-4.8) k/uL APTT 52.1 H (22.0-30.0) sec BUN 30 H (9-20) mg/dL Creatinine 6.77 H (0.66-1.25) mg/dL Glucose (74-99) mg/dL Crossmatch 09/25/22 09/26/22 09/26/22 Range/Units 12:44 06:54 06:54 RBC 2.33 L (4.30-5.90) m/uL Hgb 7.4 L (13.0-17.5) gm/dL Hct 22.6 L (39.0-53.0) % RDW 16.9 H (11.5-15.5) % Lymphocytes # 0.8 L (1.0-4.8) k/uL APTT (22.0-30.0) sec BUN 41 H (9-20) mg/dL Creatinine 8.10 H* (0.66-1.25) mg/dL Glucose 101 H (74-99) mg/dL Crossmatch See Detail 09/26/22 Range/Units 06:54 RBC (4.30-5.90) m/uL Hgb (13.0-17.5) gm/dL Hct (39.0-53.0) % RDW (11.5-15.5) % Lymphocytes # (1.0-4.8) k/uL APTT 52.8 H (22.0-30.0) sec BUN (9-20) mg/dL Creatinine (0.66-1.25) mg/dL Glucose (74-99) mg/dL Crossmatch Microbiology - Last 24 Hours (Table) 09/20/22 10:45 Blood Culture - Preliminary Blood No Growth after 120 hours 09/20/22 10:30 Blood Culture - Preliminary Blood No Growth after 120 hours Assessment and Plan Plan: Assessment: 1. End-stage renal disease maintained on hemodialysis on Saturday schedule. 2. Non-ST elevated myocardial infarction with severe distal left main disease. Cardiology as well as CTS following. 3. Hypertension with chronic kidney disease. 4. Chronic kidney disease mineral bone disease maintained on Renvela. 5. Anemia of chronic kidney disease. Denies any active bleeding. On Aranesp. Received a unit of blood 09/25/2022. Plan: Hemodialysis today. Complains of bleeding from the fistula site. I will give him a dose of DDAVP today. Resume Cardura. Cardiac cath with stent placement pending. Patient frequently misses hemodialysis treatments outpatient. Life-threatening effects of noncompliance, including and cardiac disease, has been discussed with the patient multiple times.
[2022-09-26] MEDS ORDERED: DESMOPRESSIN ACETATE 18 MCG in SODIUM CHLORIDE 0.9% 50 ML IVPB ONE (10:00)
[2022-09-26] MEDS: DOXAZOSIN 4 MG TAB PO SCH ×2 (10:51→20:47)
[2022-09-26] MEDS ORDERED: VERAPAMIL 2.5 MG/ML 2 ML AMP ONE (11:37)
[2022-09-26] MEDS ORDERED: fentaNYL (PF) 50 MCG/ML 2 ML AMP ONE (11:56)
[2022-09-26] MEDS ORDERED: fentaNYL (PF) 50 MCG/ML 2 ML AMP IV ONE (12:00)
[2022-09-26] MEDS ORDERED: LIDOCAINE 1% INJ 10MG/ML (30 ML VIAL-PF) SQ ONE (12:01)
[2022-09-26] MEDS ORDERED: SODIUM CHLORIDE 0.9% 500 ML 500 ML IV ONE (12:02)
[2022-09-26] MEDS ORDERED: MIDAZOLAM 2 MG/2 ML VIAL IV ONE ×2 (12:10)
[2022-09-26] MEDS: HEPARIN SODIUM 1,000 UN/ML (10ML VL) IV ONE ×2 (12:21→13:22)
[2022-09-26] MEDS ORDERED: CLOPIDOGREL 75 MG TAB PO ONE (12:22)
[2022-09-26] MEDS ORDERED: CLOPIDOGREL 75 MG TAB ONE (12:22)
[2022-09-26] MEDS ORDERED: IOPAMIDOL-370 125ML BTL INJ ONE (13:27)
[2022-09-26] MEDS ORDERED: IOPAMIDOL-300 100ML BTL INJ ONE (13:49)
[2022-09-26] MEDS ORDERED: NITROGLYCERIN SL TABS 0.4 MG TAB SUBLINGUAL PRN (14:04)
[2022-09-26] MEDS ORDERED: ZOLPIDEM 5 MG TAB PO PRN (14:04)
[2022-09-26] MEDS ORDERED: MAG HYDROX/AL HYDROX/SIMETH 30 ML CUP PO PRN (14:04)
[2022-09-26] MEDS ORDERED: RX INFO: IV CONTRAST WAS GIVEN 1 EACH MISC MISCELLANE PRN (14:04)
[2022-09-26] MEDS ORDERED: ATROPINE SULFATE 0.1 MG/ML 10ML SYRINGE IV PRN (14:04)
[2022-09-26] MEDS ORDERED: SODIUM CHLORIDE 0.9% 1,000 ML in EMPTY BAG 1 BAG IV SCH (14:15)
[2022-09-26 14:19] LABS: Glucose,Whole Blood 105 mg/dL (70-110)
--- NOTE | 2022-09-26 14:26 | P.CARDCATH ---
Date of Procedure: 09/26/22 Description of Procedure: PERCUTANEOUS TRANSLUMINAL CORONARY ANGIOPLASTY CLINICAL INFORMATION: The patient is a 52-year-old male with known history of hypertension, end-stage renal disease who presented with non-STEMI, underwent cardiac catheterization last week and was found to have severe distal left main obstructive disease with severe calcifications. Cardiovascular surgery consultation was obtained and was felt that the patient is too high for risk. In view of the recommendations were made regarding high-risk angioplasty and stenting with Impella placement for hemodynamic support . Recommendations were made regarding angioplasty and stenting. The procedure as well as the risks and the complications were discussed with the patient who was in full understanding and agreement. PROCEDURE: The patient was brought to the mason tender restoration labor in the fasting and semi- sedated did state after fentanyl and Benadryl, using microcatheter access, the left femoral artery was cannulized. Following that a 6-South African sheath was introduced. Subsequently to pre-close device were positioned at 10 and 2:00. Following that the sheath was upsized to an 8-South African sheath and subsequently 14 sheath. A 6-South African Pigatail catheter was introduced in the left ventricle and exchanged to the Impella catheter. After obtaining good parameters a 6-South African sheath was introduced at 10:00 in the 14-South African sheath. A 6 South African EBU 3.75 Guiding catheter was introduced into the system. After cannulating the left main, 0.014 BMW J wire was positioned in the ramus intermedius, another wire was positioned in the LAD. Subsequently an IVUS Algaaciq eye catheter was advanced and images were obtained. Following that a 4.0 x 12 mm shockwave balloon was advanced and 6 shocks were delivered. After removing the balloon a 4.5 x 12 mm NC Treck was advanced across the lesionand dilated a 12 tatiana. After removing the balloon attempted to advanced a 5.0 x 18 mm Xience stent were unsuccessful. That stent was removed and a guide liner was advanced and subsequently a 4.0 x 12 mm Treck was advanced and inflation at 10 tatiana were done. The guide liner was advanced to the LAD and after removing the balloon the stent was advanced, positioned and dilated at 16 tatiana. After removing the balloon and repeat intravascular ultrasound imaging was obtained. Subsequently 6.0 x 12 mm NC Treck balloon was advanced and one inflation in the proximal segment of the LAD was performed at 10 tatiana. After the last inflation, after appropriate wait, the balloon and the guidewire were withdrawn back into the guiding catheter. Images were obtained and repeated. Those images reveal stable successful stenting. At that point, the guiding catheter, the balloon, and guidewire were removed. The Impella catheter was weaned down and removed. The 0.035 wire was introduced and the 14-South African sheath was removed. The pre-close were tightened but because of persistent oozing and 8-South African Angio-Seal was deployed with obtaining hemostasis. There were no immediate complications. The patient was returned to the room in stable condition. Of note, the patient receive 7000 units of heparin as well as Plavix. His ACT was followed. There was no immediate complications. he had mild chest discomfort that resolved and there was episodes of nonsustained ventricular tachycardia during the inflations. RESULTS: Successful stenting of thdistal calcified left main with reduction of stenosis from 80 % to 5% with Impella support and IVUS imaging Recommendations: the patient will continue on aspirin and Plavix for 1 year without any interruption. Aggressive coronary risks modifications will be continued including smoking cessation. The findings and recommendations were discussed with the patient and the family, they are in full understanding and agreement. Duration of sedation:[address] Alvarado assisted in the placement of the pre-close and hemostasis at the end.
--- NOTE | 2022-09-26 14:35 | P.PN ---
Subjective Progress Note Date: 09/26/22 52-year-old male seen yesterday in consultation. The patient was found have a distal left main obstruction. I spoke to the mesh cutter, who is going to have the cardiothoracic surgeons see the patient as well. I'm not sure what the plan long-term is. Currently, the patient's on 4 L of oxygen. He is getting saline at 10 mL an hour, and IV heparin. The patient does have severe COPD, with an FEV1 was 46% of predicted, on a PFT that was done back in 2018. He does continue to smoke. Other medical history substantial and includes end-stage renal disease, on 3 time a week hemodialysis, CVA, seizures, myocardial infarction, and chronic hypoxemic respiratory failure. White count 4.6, hemoglobin 7.2, hematocrit 22.1, and platelet count 265,000. PTT is 58. Sodium 139, potassium 3.7, chlorides 97, CO2 25, BUN 41, creatinine 8.73. The patient is seen today 09/24/2022 in follow-up on the selective care unit. He is currently resting comfortably in bed. Awake and alert in no acute distress. He is maintaining O2 saturations in the 90s on 3 L/m per nasal cannula. He is afebrile. Patient culture reveals no growth. Blood cultures reveal no growth. White count 4.9. Hemoglobin 7.4. Sodium 139. Potassium 4.2. BUN 49. Creatinine 10.3. Glucose 103. He is continued on a heparin drip. He remains on bronchodilators. Remains on antibiotics in the form of ceftriaxone. NicoDerm patch in place. The patient is not a cardiac surgery candidate. The plan is for high risk PCI of the left main tomorrow per cardiology. The patient is seen today 09/25/2022 in follow-up on the selective care unit. He is currently sitting up at the bedside. Awake and alert in no acute distress. He is maintaining good O2 saturations in the 90s on 2 L/m per nasal cannula. Sputum culture reveals no growth. Blood cultures revealed no growth. White count 6.2. Hemoglobin 6.6. Platelets 177. Sodium 141 potassium 4.4. BUN 30. Creatinine 6.77. He is on a heparin drip. Antibiotics in the form of ceftriaxone. Remains on bronchodilators. Plan is for PCI of the left main as the patient is considered too high risk for any surgical intervention. The patient is seen today 09/26/2022 in follow-up on the selective care unit. He is currently up ambulating in his room. Awake and alert in no acute distress. He denied any chest pain. No worsening shortness of breath, cough or congestion. His hemoglobin is up to 7.4 following a unit of packed red blood cells for a hemoglobin of 6.6 yesterday. Blood cultures reveal no growth. Sputum culture revealed no growth. White count 7.4. Hemoglobin 7.4. Platelets 160. Sodium 142. Potassium 4.5. BUN 41. Creatinine 8.1. Glucose 101. The plan is for stenting of the left main with Impella support today. Objective - Vital Signs Vital signs: Vital Signs Temp 98 F 09/26/22 04:00 Pulse 71 09/26/22 08:00 Resp 16 09/26/22 08:00 BP 170/74 09/26/22 08:00 Pulse Ox 99 09/26/22 08:00 FiO2 Intake & Output 09/25/22 09/26/22 09/26/22 18:59 06:59 18:59 Intake Total 238.887 550 350 Output Total 100 Balance 138.887 550 350 Weight 64 kg Intake: IV 100 Intake, IV Titration 238.887 250 Amount Heparin Sod,Pork in 0.45% 238.887 250 NaCl 25,000 unit In 0.45 % NaCl 1 250ml.bag @ 12 UNITS/KG/HR 7.62 mls/hr IV .Q24H REPLACED BY [facility] Rx#: [id number] Oral 240 Blood Product 0 310 Rc As-1 Unit 0 310 [id number] Output: Urine 100 Other: Voiding Method Urinal Urinal # Voids 0 # Bowel Movements 0 - Exam GENERAL EXAM: Alert, 52-year-old male patient, pale, on room air, comfortable in no apparent distress. HEAD: Normocephalic. EYES: Normal reaction of pupils, equal size. NOSE: Clear with pink turbinates. THROAT: No erythema or exudates. NECK: No masses, no JVD. CHEST: No chest wall deformity. LUNGS: Equal air entry with bilateral scattered rhonchi. CVS: S1 and S2 normal with no audible murmur, regular rhythm. ABDOMEN: No hepatosplenomegaly, normal bowel sounds, no guarding or rigidity. SPINE: No scoliosis or deformity SKIN: No rashes CENTRAL NERVOUS SYSTEM: No focal deficits, tone is normal in all 4 extremities. EXTREMITIES: There is no peripheral edema. No clubbing, no cyanosis. Peripheral pulses are intact. - Labs CBC & Chem 7: 09/26/22 06:54 09/26/22 06:54 Labs: Abnormal Lab Results - Last 24 Hours (Table) 09/25/22 09/26/22 09/26/22 Range/Units 12:44 06:54 06:54 RBC 2.33 L (4.30-5.90) m/uL Hgb 7.4 L (13.0-17.5) gm/dL Hct 22.6 L (39.0-53.0) % RDW 16.9 H (11.5-15.5) % Lymphocytes # 0.8 L (1.0-4.8) k/uL APTT (22.0-30.0) sec BUN 41 H (9-20) mg/dL Creatinine 8.10 H* (0.66-1.25) mg/dL Glucose 101 H (74-99) mg/dL Crossmatch See Detail 09/26/22 Range/Units 06:54 RBC (4.30-5.90) m/uL Hgb (13.0-17.5) gm/dL Hct (39.0-53.0) % RDW (11.5-15.5) % Lymphocytes # (1.0-4.8) k/uL APTT 52.8 H (22.0-30.0) sec BUN (9-20) mg/dL Creatinine (0.66-1.25) mg/dL Glucose (74-99) mg/dL Crossmatch Microbiology - Last 24 Hours (Table) 09/20/22 10:45 Blood Culture - Final Blood No Growth after 144 hours 09/20/22 10:30 Blood Culture - Final Blood No Growth after 144 hours Assessment and Plan Assessment: Acute non-ST segment elevation myocardial infarction with distal left main coronary obstruction. Plan is for PCI of the left main today with Impella support Anemia of chronic disease, current hemoglobin 6.6. Awaiting 1 unit of packed red blood cells History of severe COPD, with an FEV1 percent is 46, back in 2018. Chronic hypoxemic respiratory failure, on home O2 at 3 L. Ongoing tobacco use with nicotine addiction. End-stage renal disease, with 3 times a week hemodialysis. History of CVA. Paroxysmal atrial fibrillation, not on anticoagulants due to GI bleed. History of gastric ulcer. History of hypertension. History of pleural and pericardial effusion. History of myocardial infarction. History of coronavirus associated pneumonia. History of seizure disorder. Plan: The patient was seen and evaluated Labs and medications reviewed Continue the current treatment plan Plan is for high risk PCI of the distal left main today The plan is for use of Impella support and will be in the ICU following the procedure We will continue to follow I have personally seen and examined the patient, performed the documentation and the assessment and plan as written. Number of minutes spent on the visit: 10.
[2022-09-26] MEDS: ATORVASTATIN 80 MG TAB PO SCH (20:04)
[2022-09-26] MEDS: SYMBICORT 160-4.5 MCG INHALER INHALATION SCH (20:53)
[2022-09-27] MEDS: ALPRAZolam 0.5 MG TAB PO PRN ×2 (01:44→21:15)
[2022-09-27 05:52] LABS: Anisocytosis Slight; Basophils # (A) 0.1 k/uL (0-0.2); Basophils % (A) 1 %; Eosinophils # (A) 0.1 k/uL (0-0.7); Eosinophils % (A) 1 %; HCT 20.4 % (39.0-53.0); Hypochromasia Slight; Lymphocytes # (A) 0.7 k/uL (1.0-4.8); Lymphocytes % (A) 8 %; MCH 32.7 pg (25.0-35.0); MCHC 33.7 g/dL (31.0-37.0); MCV 97.2 fL (80.0-100.0); Macrocytosis Slight; Mean Platelet Volume 8.1; Monocytes # (A) 0.5 k/uL (0-1.0); Monocytes % (A) 6 %; Neutrophils # (A) 6.8 k/uL (1.3-7.7); Neutrophils % (A) 84 %; Platelet Count 150 k/uL (150-450); Poikilocytosis Slight; RDW 16.6 % (11.5-15.5); WBC 8.1 k/uL (3.8-10.6)
[2022-09-27 05:57] LABS: HGB 6.9 gm/dL (13.0-17.5)
[2022-09-27 06:07] LABS: Calcium 8.8 mg/dL (8.4-10.2); Potassium 4.3 mmol/L (3.5-5.1)
--- NOTE | 2022-09-27 06:28 | P.PN ---
Subjective Progress Note Date: 09/26/22 Patient is a 52-year-old male with a known history of hypertension, hyperlipidemia, seizure disorder, ESRD on hemodialysis on Saturday and Saturday, history of CVA/TIA, prior history of paroxysmal atrial fibrillation not on anticoagulation due to GI bleed, history of left sided VATS and currently everyday smoker presents to ER with complaints of worsening shortness of for the past 2 to 3 days. Patient has been having exertional dyspnea. Also complains of cough with greenish sputum production and having fever at home.Patient is somewhat poor historian. Admission 100.1. Patient is requiring oxygen at 3 L via nasal cannula. EMS reports fever of T-max of 102.3. Patient had last hemodialysis on Saturday. Patient did have prior history of recurrent pneumonia. Otherwise denied any complaints of chest pain. No headache or dizziness or lightheadedness. No nausea vomiting abdominal pain or diarrhea. Patient is also having chronic back pain and spinal stenosis with degenerative disc disease. Chest x-ray showed mild cardiomegaly and interstitial changes. Correlate for possible pulmonary vascular congestion. Right midlung airspace disease and additional patchy infiltrate in the right lower lobe. Findings could represent atypical pulmonary edema versus multifocal pneumonia. EKG showed showed sinus rhythm with left ventricular hypertrophy. Laboratory data showed WBC 10.3 hemoglobin 8.2 and platelets 116 Sodium 134 potassium 4.2 chloride 91 bicarb is 28 BUN 31 creatinine 6.87 Liver enzymes are not elevated and troponin level is 11.6, 18.4 proBNP [id number] Coronavirus PCR and influenza a and B not detected. 09/21/2022 Patient is seen and evaluated in follow-up this morning with cardiology and nephrology following. Patient is scheduled for cardiac catheterization and will tentatively be scheduled for hemodialysis after. Patient did have an echo done showing an EF of 45-50%. Await echo report. Patient is continued on 2-3 L via nasal cannula and reports continued shortness of breath. Patient is continued on IV antibiotics for the right lower lobe possible pneumonia and currently awaiting a pending pro-calcitonin at this time. 09/24/2022 Patient is seen and evaluated in follow-up today currently sitting up at the side of the bed with cardiology and nephrology following. Patient reports he is being scheduled for PCI stent placement with cardiology possibly in the next day or so. Patient was being followed by cardiothoracic surgery for possible CABG although told he was not a candidate. Patient is afebrile and denies worsening shortness of breath or chest pains. 09/25/2022 Patient is seen this morning and was scheduled for PCI stenting although hemo globin came back low at 6.6 and cardiology cancelled the cath today. One unit of prbc ordered and pending. Recommend repeat labs in the am and will plan for cath in the am. Patient is afebrile and denies chest pain or worsening shortness of breath. Nephrology following today with no plans for hemodialysis and to receive tomorrow. Patient is upset that the procedure was cancelled and is reporting he is hungry. Will order diet and NPO at midnight. Discussed with nursing staff to feed the patient. Patient is also continued on heparin drip and cardiology may hold due to drop in hemoglobin. 09/26/2022 Patient is see this morning and post one unit of prbc and hemoglobin is 7.4. Going for impella this morning and currently NPO. Denies chest pain or worsening shortness of breath. No hemodialysis today. Patient will transfer to ICU for close monitoring post intervention. Review of systems: Constitutional: No reports of fatigue, fever, or chills Cardiovascular: No reports of chest pain or palpitations Respiratory: No reports of shortness of breath or cough GI: No reports of nausea, vomiting, or diarrhea : No reports of dysuria or retention Neurovascular: No reports of weakness or numbness All medications have been reviewed PHYSICAL EXAMINATION: Patient is sleeping in bed comfortable, but arousable, no acute distress, alert and oriented.. anxious to have procedure done HEENT: Normocephalic. Neck is supple. Pupils reactive. Nostrils clear. Oral cavity is moist. Neck reveals no JVD, carotid bruits, or thyromegaly. CHEST EXAMINATION: Trachea is central. Symmetrical expansion bibasilar scattered rhonchi. Nonlabored breathing.. CARDIAC: Normal S1, S2 with no gallops. No murmurs ABDOMEN: Soft. Bowel sounds present. Nontender. No organomegaly. No abdominal bruits. Extremities: reveal no edema. No clubbing or cyanosis Neurologically awake, alert, oriented x3 with well-coordinated movements. No focal deficits noted Skin: No rash or skin lesions. Psychiatric: Cooperative. Non-suicidal, Musculoskeletal: No joint swelling or deformity. Normal range of motion. Assessment: Worsening shortness of breath Secondary to pulmonary vascular congestion and pneumonia Acute right lower lobe multifocal pneumonia Acute non-ST elevated [place] Elevated troponin level ESRD on hemodialysis Saturday and Saturday anemia, most likely of chronic disease Paroxysmal atrial fibrillation not on anticoagulation due to history of prior GI bleed Hypertension Chronic thrombocytopenia History of seizure disorder Hyperlipidemia History of left thalamus CVA no residual focal deficits Currently everyday smoker DVT prophylaxis Plan: Patient will be continued on telemetry monitoring. Patient is post transfuse one unit. and hemoglobin is 7.4 Recommend to closely monitor Cardiology following and planning for impella and then transfer to ICU Patient is continued on antibiotics in the form of ceftriaxone. Sputum and blood cultures are negative. Pro-calcitonin was elevated Nephrology following and to continue with hemodialysis dialysis for tomorrow possibly Continue with duo nebs and symptomatic management and pain management. Repeat am labs and transfuse if less than 7 Prognosis is guarded at this time. The impression and plan of care has been dictated by Joanna Jefferson, Nurse Practitioner as directed. Dr. Mc MD I have performed a history and examination and MDM of this patient, discussed the same with the dictator, and agree with the dictator's assessment and plan as written ,documented as a scribe. Based on total visit time, I have performed more than 50% of the visit. Objective - Vital Signs Vital signs: Vital Signs Temp 98 F 09/26/22 04:00 Pulse 71 09/26/22 08:00 Resp 16 09/26/22 08:00 BP 170/74 09/26/22 08:00 Pulse Ox 99 09/26/22 08:00 FiO2 Intake & Output 09/25/22 09/26/22 09/26/22 18:59 06:59 18:59 Intake Total 238.887 550 Output Total 100 Balance 138.887 550 Weight 64 kg Intake: Intake, IV Titration 238.887 Amount Heparin Sod,Pork in 0.45% 238.887 NaCl 25,000 unit In 0.45 % NaCl 1 250ml.bag @ 12 UNITS/KG/HR 7.62 mls/hr IV .Q24H [facility] Rx#: [id number] Oral 240 Blood Product 0 310 Rc As-1 Unit 0 310 [id number] Output: Urine 100 Other: Voiding Method Urinal # Voids 0 # Bowel Movements 0 - Labs CBC & Chem 7: 11/10/22 05:26 09/27/22 05:26 Labs: Abnormal Lab Results - Last 24 Hours (Table) 09/25/22 09/25/22 09/25/22 Range/Units 10:54 10:54 10:54 RBC 2.09 L (4.30-5.90) m/uL Hgb 6.6 L* (13.0-17.5) gm/dL Hct 20.7 L (39.0-53.0) % RDW 16.7 H (11.5-15.5) % Lymphocytes # 0.8 L (1.0-4.8) k/uL APTT 52.1 H (22.0-30.0) sec BUN 30 H (9-20) mg/dL Creatinine 6.77 H (0.66-1.25) mg/dL Glucose (74-99) mg/dL Crossmatch 09/25/22 09/26/22 09/26/22 Range/Units 12:44 06:54 06:54 RBC 2.33 L (4.30-5.90) m/uL Hgb 7.4 L (13.0-17.5) gm/dL Hct 22.6 L (39.0-53.0) % RDW 16.9 H (11.5-15.5) % Lymphocytes # 0.8 L (1.0-4.8) k/uL APTT (22.0-30.0) sec BUN 41 H (9-20) mg/dL Creatinine 8.10 H* (0.66-1.25) mg/dL Glucose 101 H (74-99) mg/dL Crossmatch See Detail 09/26/22 Range/Units 06:54 RBC (4.30-5.90) m/uL Hgb (13.0-17.5) gm/dL Hct (39.0-53.0) % RDW (11.5-15.5) % Lymphocytes # (1.0-4.8) k/uL APTT 52.8 H (22.0-30.0) sec BUN (9-20) mg/dL Creatinine (0.66-1.25) mg/dL Glucose (74-99) mg/dL Crossmatch Microbiology - Last 24 Hours (Table) 09/20/22 10:45 Blood Culture - Preliminary Blood No Growth after 120 hours 09/20/22 10:30 Blood Culture - Preliminary Blood No Growth after 120 hours
[2022-09-27] MEDS: SEVELAMER 800 MG TAB PO SCH ×4 (06:53→20:23)
[2022-09-27] MEDS: PANTOPRAZOLE 40 MG TABLET PO SCH ×2 (06:53→16:31)
[2022-09-27] MEDS: IPRATROPIUM-ALBUTEROL 3 ML NEB INHALATION SCH ×4 (07:26→19:39)
[2022-09-27] MEDS: SYMBICORT 160-4.5 MCG INHALER INHALATION SCH ×2 (07:26→19:40)
--- NOTE | 2022-09-27 07:36 | P.PN ---
Subjective This is a 52-year-old male with a past medical history significant for hypertension, hyperlipidemia, end-stage renal disease on hemodialysis, COPD, current nicotine dependence smoking 1 pack per day, CVA, paroxysmal atrial fibrillation not on anticoagulation secondary to anemia and history of GI bleeding, seizure disorder, left lung empyema with left-sided VATS, and pneumonia. Patient follows in the office with Dr. Mayorga. We have been asked to see the patient in consultation for elevated troponin. Patient presented to the hospital to chief complaint of shortness of breath. The patient states he has been short of breath for the past 2-3 days. He states his shortness of breath is usually with exertion. Patient admitted with NSTEMI. He underwent cardiac catheterization on 09/21/[address] Mayorga that revealed Calcified coronary arteries, distal left main has a 70% eccentric lesion, mild disease in the left circumflex with 20- 30% proximal and mid area and RCA with 20-30% plaque different segments. The LAD has no high-grade stenosis Echo revealed EF 45-50% mild to moderate mitral regurgitation 09/25/2022 Patient seen and examined at bedside, no acute distress. Unfortunately his hemoglobin dropped to 6.6. and cardiac cath is cancelled. No bleeding per patient. He denies any chest pain or shortness of breath. Denies any symptoms of orthopnea or PND. Overall his symptoms have improved. CT surgery team evaluated the patient, Dr. Corral and Dr. Solis feel that patient would be better suited for high risk PCI rather than CABG. Pulmonary following the patient. Nephrology following as well. Vital signs are stable. 09/27 Patient seen and examined. Patient underwent Impella protected left main stenting yesterday from a left femoral site. Procedure went well with mild amount of blood loss during the procedure however no bleeding from the left femoral site. He denies any chest pain or pressure. States he has been feeling well. Has not been able walk on the halls yet today. Hemoglobin 6.9. PHYSICAL EXAM: VITAL SIGNS: Reviewed. GENERAL: Well-developed in no acute distress. Skin color ashen lozano. HEENT: Head is normocephalic. Neck supple. No JVD LUNGS: Respirations even and unlabored. Lungs with decreased air exchange bilaterally, diminished in the bases. HEART: Regular rate and rhythm. S1 and S2 heard. Systolic murmur noted ABDOMEN: Soft. Nondistended. Nontender. EXTREMITIES: Normal range of motion. No clubbing or cyanosis. Peripheral pulses intact. No lower extremity edema NEUROLOGIC: Awake and alert. Oriented x 3. ASSESSMENT: Non-STEMI Pneumonia Febrile illness End-stage renal disease on hemodialysis COPD Hypertension Hyperlipidemia History of CVA Paroxysmal atrial fibrillation not on anticoagulation secondary to anemia and history of GI bleeding History of seizure disorder History of left lung empyema with previous left-sided VATS Nicotine dependence, patient smokes 1 pack per day Anemia of chronic disease Hgb 6.6. CAD with left main stenosis, s/p Impella protected PCI left main 09/26 PLAN: Continue aspirin, Plavix and statin Continue beta kadeem Transfuse 1 unit packed red blood cells for anemia Ambulate as able. Okay for transfer out of ICU. Possible discharge tomorrow from a cardiology standpoint if stable. Objective - Vital Signs Vital signs: Vital Signs Temp 98.7 F 09/27/22 05:00 Pulse 86 09/27/22 07:26 Resp 22 09/27/22 07:00 BP 146/95 09/27/22 07:00 Pulse Ox 92 L 09/27/22 07:00 FiO2 Intake & Output 09/26/22 09/27/22 09/27/22 18:59 06:59 18:59 Intake Total 850 420 Output Total 1800 0 0 Balance -950 420 0 Weight 67.3 kg Intake: IV 160 30 Invasive Line 5 10 30 cefTRIAXone 1 gm In 50 Sodium Chloride 0.9% 50 ml @ 100 mls/hr IVPB Q24H [facility] Rx#:[id number] Intake, IV Titration 250 Amount Heparin Sod,Pork in 0.45% 250 NaCl 25,000 unit In 0.45 % NaCl 1 250ml.bag @ 12 UNITS/KG/HR 7.62 mls/hr IV .Q24H [facility] Rx#: [id number] Oral 440 390 Output: Urine 0 0 0 Stool 0 Hemodialysis 1800 Other: Voiding Method Urinal # Voids 0 0 0 - Labs CBC & Chem 7: 09/27/22 05:26 09/27/22 05:26 Labs: Abnormal Lab Results - Last 24 Hours (Table) 09/25/22 09/26/22 09/26/22 Range/Units 12:44 06:54 06:54 RBC 2.33 L (4.30-5.90) m/uL Hgb 7.4 L (13.0-17.5) gm/dL Hct 22.6 L (39.0-53.0) % RDW 16.9 H (11.5-15.5) % Lymphocytes # 0.8 L (1.0-4.8) k/uL APTT (22.0-30.0) sec BUN 41 H (9-20) mg/dL Creatinine 8.10 H* (0.66-1.25) mg/dL Glucose 101 H (74-99) mg/dL Crossmatch See Detail 09/26/22 09/27/22 09/27/22 Range/Units 06:54 05:26 05:26 RBC 2.10 L (4.30-5.90) m/uL Hgb 6.9 L* (13.0-17.5) gm/dL Hct 20.4 L (39.0-53.0) % RDW 16.6 H (11.5-15.5) % Lymphocytes # 0.7 L (1.0-4.8) k/uL APTT 52.8 H (22.0-30.0) sec BUN 24 H (9-20) mg/dL Creatinine 5.52 H (0.66-1.25) mg/dL Glucose (74-99) mg/dL Crossmatch Microbiology - Last 24 Hours (Table) 09/20/22 10:45 Blood Culture - Final Blood No Growth after 144 hours 09/20/22 10:30 Blood Culture - Final Blood No Growth after 144 hours
--- NOTE | 2022-09-27 08:43 | P.PN ---
Subjective Patient is seen in follow-up for end-stage renal disease. He is maintained on hemodialysis on Saturday schedule. Underwent cardiac cath 09/26/2022 with stent placement. No problems with dialysis yesterday. Currently denies chest pain or shortness of breath. Vital signs are stable. General: Awake. No acute distress. HEENT: Head exam is unremarkable. LUNGS: Breath sounds decreased. HEART: Rate and Rhythm are regular. ABDOMEN: Soft, no distention. EXTREMITITES: No edema. Objective - Vital Signs Vital signs: Vital Signs Temp 98.7 F 09/27/22 05:00 Pulse 85 09/27/22 07:36 Resp 22 09/27/22 07:00 BP 146/95 09/27/22 07:00 Pulse Ox 92 L 09/27/22 07:00 FiO2 Intake & Output 09/26/22 09/27/22 09/27/22 18:59 06:59 18:59 Intake Total 850 420 Output Total 1800 0 0 Balance -950 420 0 Weight 67.3 kg Intake: IV 160 30 Invasive Line 5 10 30 cefTRIAXone 1 gm In 50 Sodium Chloride 0.9% 50 ml @ 100 mls/hr IVPB Q24H [facility] Rx#:[id number] Intake, IV Titration 250 Amount Heparin Sod,Pork in 0.45% 250 NaCl 25,000 unit In 0.45 % NaCl 1 250ml.bag @ 12 UNITS/KG/HR 7.62 mls/hr IV .Q24H [facility] Rx#: [id number] Oral 440 390 Output: Urine 0 0 0 Stool 0 Hemodialysis 1800 Other: Voiding Method Urinal # Voids 0 0 0 - Labs CBC & Chem 7: 09/27/22 05:26 09/27/22 05:26 Labs: Abnormal Lab Results - Last 24 Hours (Table) 09/25/22 09/26/22 09/27/22 Range/Units 12:44 06:54 05:26 RBC 2.10 L (4.30-5.90) m/uL Hgb 6.9 L* (13.0-17.5) gm/dL Hct 20.4 L (39.0-53.0) % RDW 16.6 H (11.5-15.5) % Lymphocytes # 0.7 L (1.0-4.8) k/uL BUN 41 H (9-20) mg/dL Creatinine 8.10 H* (0.66-1.25) mg/dL Glucose 101 H (74-99) mg/dL Crossmatch See Detail 09/27/22 Range/Units 05:26 RBC (4.30-5.90) m/uL Hgb (13.0-17.5) gm/dL Hct (39.0-53.0) % RDW (11.5-15.5) % Lymphocytes # (1.0-4.8) k/uL BUN 24 H (9-20) mg/dL Creatinine 5.52 H (0.66-1.25) mg/dL Glucose (74-99) mg/dL Crossmatch Microbiology - Last 24 Hours (Table) 09/20/22 10:45 Blood Culture - Final Blood No Growth after 144 hours 09/20/22 10:30 Blood Culture - Final Blood No Growth after 144 hours Assessment and Plan Plan: Assessment: 1. End-stage renal disease maintained on hemodialysis on Saturday schedule. 2. Non-ST elevated myocardial infarction with severe distal left main disease. Cardiology as well as CTS following. Stent placed 09/26/2022. 3. Hypertension with chronic kidney disease. 4. Chronic kidney disease mineral bone disease maintained on Renvela. 5. Anemia of chronic kidney disease. Denies any active bleeding. On Aranesp. Received a unit of blood 09/25/2022. Hemoglobin 6.9 today. Also received IV DDAVP 09/26/2022. No active bleeding. Plan: Hemodialysis tomorrow. Scheduled to receive a unit of blood today. Patient frequently misses hemodialysis treatments outpatient. Life-threatening effects of noncompliance, including and cardiac disease, has been discussed with the patient multiple times. Tobacco cessation also discussed.
[2022-09-27] MEDS: ASPIRIN 81 MG PO SCH (08:45)
[2022-09-27] MEDS: NICOTINE 21MG/24HR PATCH TRANSDERM SCH (08:45)
[2022-09-27] MEDS: CLOPIDOGREL 75 MG TAB PO SCH (08:45)
[2022-09-27] MEDS: hydrALAZINE HCL 50 MG TAB PO SCH ×3 (08:45→20:23)
[2022-09-27] MEDS: levETIRAcetam 500 MG TAB PO SCH ×2 (08:45→20:24)
[2022-09-27] MEDS: METOPROLOL TARTRATE 50 MG TAB PO SCH ×2 (08:45→20:24)
[2022-09-27] MEDS: GABAPENTIN 100 MG CAP PO SCH ×2 (08:45→20:24)
[2022-09-27] MEDS: amLODIPine 5 MG TAB PO SCH ×2 (08:46→20:23)
[2022-09-27] MEDS: DOXAZOSIN 4 MG TAB PO SCH ×2 (08:46→20:23)
[2022-09-27 10:54] VITALS: BMI 25.4
--- NOTE | 2022-09-27 11:07 | XR ---
EXAMINATION TYPE: XR chest 1V portable DATE OF EXAM: 09/27/2022 10:22 AM COMPARISON: Chest radiographs from 09/20/2022. TECHNIQUE: XR chest 1V portable Frontal view of the chest. CLINICAL INDICATION:Male, 52 years old with history of CHF; FINDINGS: Lungs/Pleura: No pneumothorax or pleural effusion. Interval decrease in right midlung and lower lung airspace opacities. Heart/mediastinum: Cardiomediastinal silhouette is mildly enlarged and stable. Musculoskeletal: No acute osseous pathology. IMPRESSION: 1. Interval decrease in right midlung and lower lung airspace opacities. 2. Mild cardiomegaly redemonstrated.
--- NOTE | 2022-09-27 11:48 | P.PN ---
Subjective Progress Note Date: 09/27/22 Principal diagnosis: Acute non-ST elevation myocardial infarction 52-year-old male seen yesterday in consultation. The patient was found have a distal left main obstruction. I spoke to the cutter v groove, who is going to have the cardiothoracic surgeons see the patient as well. I'm not sure what the plan long-term is. Currently, the patient's on 4 L of oxygen. He is getting saline at 10 mL an hour, and IV heparin. The patient does have severe COPD, with an FEV1 was 46% of predicted, on a PFT that was done back in 2018. He does continue to smoke. Other medical history substantial and includes end-stage renal disease, on 3 time a week hemodialysis, CVA, seizures, myocardial infarction, and chronic hypoxemic respiratory failure. White count 4.6, hemoglobin 7.2, hematocrit 22.1, and platelet count 265,000. PTT is 58. Sodium 139, potassium 3.7, chlorides 97, CO2 25, BUN 41, creatinine 8.73. The patient is seen today 09/24/2022 in follow-up on the selective care unit. He is currently resting comfortably in bed. Awake and alert in no acute distress. He is maintaining O2 saturations in the 90s on 3 L/m per nasal cannula. He is afebrile. Patient culture reveals no growth. Blood cultures reveal no growth. White count 4.9. Hemoglobin 7.4. Sodium 139. Potassium 4.2. BUN 49. Creatinine 10.3. Glucose 103. He is continued on a heparin drip. He remains on bronchodilators. Remains on antibiotics in the form of ceftriaxone. NicoDerm patch in place. The patient is not a cardiac surgery candidate. The plan is for high risk PCI of the left main tomorrow per cardiology. The patient is seen today 09/25/2022 in follow-up on the selective care unit. He is currently sitting up at the bedside. Awake and alert in no acute distress. He is maintaining good O2 saturations in the 90s on 2 L/m per nasal cannula. Sputum culture reveals no growth. Blood cultures revealed no growth. White count 6.2. Hemoglobin 6.6. Platelets 177. Sodium 141 potassium 4.4. BUN 30. Creatinine 6.77. He is on a heparin drip. Antibiotics in the form of ceftriaxone. Remains on bronchodilators. Plan is for PCI of the left main as the patient is considered too high risk for any surgical intervention. The patient is seen today 09/26/2022 in follow-up on the selective care unit. He is currently up ambulating in his room. Awake and alert in no acute distress. He denied any chest pain. No worsening shortness of breath, cough or congestion. His hemoglobin is up to 7.4 following a unit of packed red blood cells for a hemoglobin of 6.6 yesterday. Blood cultures reveal no growth. Sputum culture revealed no growth. White count 7.4. Hemoglobin 7.4. Platelets 160. Sodium 142. Potassium 4.5. BUN 41. Creatinine 8.1. Glucose 101. The plan is for stenting of the left main with Impella support today. Patient is now in the ICU evaluated on 09/27/22, patient underwent impella protected left main stenting yesterday. Patient had a relatively uneventful postoperative course. Patient is doing well, his hemoglobin dropped down to 6.9 today, and I'm recommending units of packed RBCs to be given. Patient is being followed by nephrology for his chronic kidney disease and hemodialysis, no plans to hemodialyze the patient today, and this will be done likely tomorrow. Patient denies any chest pain denies any cough wheezing or shortness of breath although on physical examination he has rhonchi and wheezes. WBC count is 8.1 hemoglobin 6.9 ,BUN is 24 creatinine 5.52. Objective - Vital Signs Vital signs: Vital Signs Temp 98.0 F 09/27/22 09:31 Pulse 80 09/27/22 11:10 Resp 17 09/27/22 11:07 BP 166/86 09/27/22 11:00 Pulse Ox 95 09/27/22 11:00 FiO2 Intake & Output 09/26/22 09/27/22 09/27/22 18:59 06:59 18:59 Intake Total 850 420 320 Output Total 1800 0 0 Balance -950 420 320 Weight 67.3 kg 67.3 kg Intake: IV 160 30 20 Invasive Line 5 10 30 20 cefTRIAXone 1 gm In 50 Sodium Chloride 0.9% 50 ml @ 100 mls/hr IVPB Q24H REPLACED BY [facility] Rx#:[id number] Intake, IV Titration 250 Amount Heparin Sod,Pork in 0.45% 250 NaCl 25,000 unit In 0.45 % NaCl 1 250ml.bag @ 12 UNITS/KG/HR 7.62 mls/hr IV .Q24H REPLACED BY [facility] Rx#: [id number] Oral 440 390 Blood Product 300 Unit 0 Output: Urine 0 0 0 Stool 0 Hemodialysis 1800 Other: Voiding Method Urinal # Voids 0 0 0 - Exam GENERAL EXAM: Revealed 52-year-old in no distress on room air. HEAD: Normocephalic. EENT: PERRLA, EOMI, CHEST: No chest wall deformity. LUNGS: Scattered rhonchi noted bilaterally. CVS: S1 and S2 normal with no audible murmur, regular rhythm. ABDOMEN: No hepatosplenomegaly, normal bowel sounds, no guarding or rigidity. SPINE: No scoliosis or deformity SKIN: No rashes CENTRAL NERVOUS SYSTEM: Alert oriented 3 no gross focal deficit EXTREMITIES: Trace of bipedal edema. - Labs CBC & Chem 7: 09/27/22 05:26 09/27/22 05:26 Labs: Abnormal Lab Results - Last 24 Hours (Table) 09/25/22 09/27/22 09/27/22 Range/Units 12:44 05:26 05:26 RBC 2.10 L (4.30-5.90) m/uL Hgb 6.9 L* (13.0-17.5) gm/dL Hct 20.4 L (39.0-53.0) % RDW 16.6 H (11.5-15.5) % Lymphocytes # 0.7 L (1.0-4.8) k/uL BUN 24 H (9-20) mg/dL Creatinine 5.52 H (0.66-1.25) mg/dL Crossmatch See Detail Microbiology - Last 24 Hours (Table) 09/20/22 10:45 Blood Culture - Final Blood No Growth after 144 hours 09/20/22 10:30 Blood Culture - Final Blood No Growth after 144 hours Assessment and Plan Assessment: Acute non-ST segment elevation myocardial infarction with distal left main coronary obstruction. Status post PCI of left pain, done on 09/26/22 Anemia of chronic disease, hemoglobin today is 6.9, will transfuse with 1 unit of packed RBCs today. History of severe COPD, with an FEV1 percent is 46, back in 2018. Resolving right midlung pneumonia, possibly healthcare acquired pneumonia, chest x-ray today showed significant improvement in his pneumonia. Patient remains on Rocephin. Chronic hypoxemic respiratory failure, on home O2 at 3 L. Ongoing tobacco use with nicotine addiction. End-stage renal disease, with 3 times a week hemodialysis. History of CVA. Paroxysmal atrial fibrillation, not on anticoagulants due to GI bleed. History of gastric ulcer. History of hypertension. History of pleural and pericardial effusion. History of myocardial infarction. History of coronavirus associated pneumonia. History of seizure disorder. Recommendation: Continue to monitor in the ICU today unless patient is cleared to be transferred out of the ICU to a cardiac floor by cardiology. Continue aspirin and Plavix and statins Continue bronchodilators and steroids Continue Rocephin and possibly transition to oral antibiotics in the next 24 hours. Considering the improvement of the chest x-ray patient may have already received full course of treatment for his pneumonia We will continue to follow Time with Patient: Less than 30
--- NOTE | 2022-09-27 18:23 | P.PN ---
Subjective Progress Note Date: 09/27/22 Patient is a 52-year-old male with a known history of hypertension, hyperlipidemia, seizure disorder, ESRD on hemodialysis on Saturday and Saturday, history of CVA/TIA, prior history of paroxysmal atrial fibrillation not on anticoagulation due to GI bleed, history of left sided VATS and currently everyday smoker presents to ER with complaints of worsening shortness of for the past 2 to 3 days. Patient has been having exertional dyspnea. Also complains of cough with greenish sputum production and having fever at home.Patient is somewhat poor historian. Admission 100.1. Patient is requiring oxygen at 3 L via nasal cannula. EMS reports fever of T-max of 102.3. Patient had last hemodialysis on Saturday. Patient did have prior history of recurrent pneumonia. Otherwise denied any complaints of chest pain. No headache or dizziness or lightheadedness. No nausea vomiting abdominal pain or diarrhea. Patient is also having chronic back pain and spinal stenosis with degenerative disc disease. Chest x-ray showed mild cardiomegaly and interstitial changes. Correlate for possible pulmonary vascular congestion. Right midlung airspace disease and additional patchy infiltrate in the right lower lobe. Findings could represent atypical pulmonary edema versus multifocal pneumonia. EKG showed showed sinus rhythm with left ventricular hypertrophy. Laboratory data showed WBC 10.3 hemoglobin 8.2 and platelets 116 Sodium 134 potassium 4.2 chloride 91 bicarb is 28 BUN 31 creatinine 6.87 Liver enzymes are not elevated and troponin level is 11.6, 18.4 proBNP [id number] Coronavirus PCR and influenza a and B not detected. 09/21/2022 Patient is seen and evaluated in follow-up this morning with cardiology and nephrology following. Patient is scheduled for cardiac catheterization and will tentatively be scheduled for hemodialysis after. Patient did have an echo done showing an EF of 45-50%. Await echo report. Patient is continued on 2-3 L via nasal cannula and reports continued shortness of breath. Patient is continued on IV antibiotics for the right lower lobe possible pneumonia and currently awaiting a pending pro-calcitonin at this time. 09/24/2022 Patient is seen and evaluated in follow-up today currently sitting up at the side of the bed with cardiology and nephrology following. Patient reports he is being scheduled for PCI stent placement with cardiology possibly in the next day or so. Patient was being followed by cardiothoracic surgery for possible CABG although told he was not a candidate. Patient is afebrile and denies worsening shortness of breath or chest pains. 09/25/2022 Patient is seen this morning and was scheduled for PCI stenting although hemo globin came back low at 6.6 and cardiology cancelled the cath today. One unit of prbc ordered and pending. Recommend repeat labs in the am and will plan for cath in the am. Patient is afebrile and denies chest pain or worsening shortness of breath. Nephrology following today with no plans for hemodialysis and to receive tomorrow. Patient is upset that the procedure was cancelled and is reporting he is hungry. Will order diet and NPO at midnight. Discussed with nursing staff to feed the patient. Patient is also continued on heparin drip and cardiology may hold due to drop in hemoglobin. 09/26/2022 Patient is see this morning and post one unit of prbc and hemoglobin is 7.4. Going for impella this morning and currently NPO. Denies chest pain or worsening shortness of breath. No hemodialysis today. Patient will transfer to ICU for close monitoring post intervention. 09/27/2022 Patient seen and evaluated this morning continues in the ICU under close observation. Continue telemetry monitoring. Patient's hemoglobin is low today and will transfuse 1 unit of PRBC. Nephrology following with plans for possible hemodialysis today. Cardiology following as well and patient is post impella to the left main and doing well and is a down grade from the ICU awaiting a bed. Patient is afebrile and denies chest pain or worsening shortness of breath. Patient is extremely anxious to go home. Possible discharge in 24 hours. Review of systems: Constitutional: No reports of fatigue, fever, or chills Cardiovascular: No reports of chest pain or palpitations Respiratory: No reports of shortness of breath or cough GI: No reports of nausea, vomiting, or diarrhea : No reports of dysuria or retention Neurovascular: No reports of weakness or numbness All medications have been reviewed PHYSICAL EXAMINATION: Patient is sleeping in bed comfortable, but arousable, no acute distress, alert and oriented. HEENT: Normocephalic. Neck is supple. Pupils reactive. Nostrils clear. Oral cavity is moist. Neck reveals no JVD, carotid bruits, or thyromegaly. CHEST EXAMINATION: Trachea is central. Symmetrical expansion bibasilar scattered rhonchi. Nonlabored breathing.. CARDIAC: Normal S1, S2 with no gallops. No murmurs ABDOMEN: Soft. Bowel sounds present. Nontender. No organomegaly. No abdominal bruits. Extremities: reveal no edema. No clubbing or cyanosis Neurologically awake, alert, oriented x3 with well-coordinated movements. No focal deficits noted Skin: No rash or skin lesions. Psychiatric: Cooperative. Non-suicidal, Musculoskeletal: No joint swelling or deformity. Normal range of motion. Assessment: Worsening shortness of breath Secondary to pulmonary vascular congestion and pneumonia Post Impella to the left main Acute right lower lobe multifocal pneumonia Acute non-ST elevated RI Elevated troponin level ESRD on hemodialysis Saturday and Saturday anemia, most likely of chronic disease Paroxysmal atrial fibrillation not on anticoagulation due to history of prior GI bleed Hypertension Chronic thrombocytopenia History of seizure disorder Hyperlipidemia History of left thalamus CVA no residual focal deficits Currently everyday smoker DVT prophylaxis Plan: Patient will be continued on telemetry monitoring. Patient is to transfuse one unit today for hemoglobin of 6.6. Recommend to closely monitor and follow up with am labs Nephrology following and to continue with hemodialysis dialysis for tomorrow Continue with duo nebs and symptomatic management and pain management. Repeat am labs and transfuse if less than 7 Prognosis is guarded at this time. If stable overnight may be discharged in 24 hours. The impression and plan of care has been dictated by Joanna Jefferson, Nurse Practitioner as directed. Dr. Mc MD I have performed a history and examination and MDM of this patient, discussed the same with the dictator, and agree with the dictator's assessment and plan as written ,documented as a scribe. Based on total visit time, I have performed more than 50% of the visit. Objective - Vital Signs Vital signs: Vital Signs Temp 98.0 F 09/27/22 09:31 Pulse 85 09/27/22 10:00 Resp 18 09/27/22 10:00 BP 166/80 09/27/22 10:00 Pulse Ox 95 09/27/22 10:00 FiO2 Intake & Output 09/26/22 09/27/22 09/27/22 18:59 06:59 18:59 Intake Total 850 420 210 Output Total 1800 0 0 Balance -950 420 210 Weight 67.3 kg Intake: IV 160 30 10 Invasive Line 5 10 30 10 cefTRIAXone 1 gm In 50 Sodium Chloride 0.9% 50 ml @ 100 mls/hr IVPB Q24H [facility] Rx#:[id number] Intake, IV Titration 250 Amount Heparin Sod,Pork in 0.45% 250 NaCl 25,000 unit In 0.45 % NaCl 1 250ml.bag @ 12 UNITS/KG/HR 7.62 mls/hr IV .Q24H [facility] Rx#: [id number] Oral 440 390 Blood Product 200 Unit 0 Output: Urine 0 0 0 Stool 0 Hemodialysis 1800 Other: Voiding Method Urinal # Voids 0 0 0 - Labs CBC & Chem 7: 09/27/22 05:26 09/27/22 05:26 Labs: Abnormal Lab Results - Last 24 Hours (Table) 09/25/22 09/27/22 09/27/22 Range/Units 12:44 05:26 05:26 RBC 2.10 L (4.30-5.90) m/uL Hgb 6.9 L* (13.0-17.5) gm/dL Hct 20.4 L (39.0-53.0) % RDW 16.6 H (11.5-15.5) % Lymphocytes # 0.7 L (1.0-4.8) k/uL BUN 24 H (9-20) mg/dL Creatinine 5.52 H (0.66-1.25) mg/dL Crossmatch See Detail Microbiology - Last 24 Hours (Table) 09/20/22 10:45 Blood Culture - Final Blood No Growth after 144 hours 09/20/22 10:30 Blood Culture - Final Blood No Growth after 144 hours
[2022-09-27] MEDS: ATORVASTATIN 80 MG TAB PO SCH (20:23)
[2022-09-28 02:55] VITALS: TEMP 97.9
--- NOTE | 2022-09-28 07:19 | P.PN ---
Subjective This is a 52-year-old male with a past medical history significant for hypertension, hyperlipidemia, end-stage renal disease on hemodialysis, COPD, current nicotine dependence smoking 1 pack per day, CVA, paroxysmal atrial fibrillation not on anticoagulation secondary to anemia and history of GI bleeding, seizure disorder, left lung empyema with left-sided VATS, and pneumonia. Patient follows in the office with Dr. Mayorga. We have been asked to see the patient in consultation for elevated troponin. Patient presented to the hospital to chief complaint of shortness of breath. The patient states he has been short of breath for the past 2-3 days. He states his shortness of breath is usually with exertion. Patient admitted with NSTEMI. He underwent cardiac catheterization on 09/21/[address] Mayorga that revealed Calcified coronary arteries, distal left main has a 70% eccentric lesion, mild disease in the left circumflex with 20- 30% proximal and mid area and RCA with 20-30% plaque different segments. The LAD has no high-grade stenosis Echo revealed EF 45-50% mild to moderate mitral regurgitation 09/25/2022 Patient seen and examined at bedside, no acute distress. Unfortunately his hemoglobin dropped to 6.6. and cardiac cath is cancelled. No bleeding per patient. He denies any chest pain or shortness of breath. Denies any symptoms of orthopnea or PND. Overall his symptoms have improved. CT surgery team evaluated the patient, Dr. Corral and Dr. Solis feel that patient would be better suited for high risk PCI rather than CABG. Pulmonary following the patient. Nephrology following as well. Vital signs are stable. 09/27 Patient seen and examined. Patient underwent Impella protected left main stenting yesterday from a left femoral site. Procedure went well with mild amount of blood loss during the procedure however no bleeding from the left femoral site. He denies any chest pain or pressure. States he has been feeling well. Has not been able walk on the halls yet today. Hemoglobin 6.9. 09/28 Patient seen and examined. Denies any chest pain. He recieved 1U PRBCs yesterday. Left femoral site appears stable without hematoma or bleeding. PHYSICAL EXAM: VITAL SIGNS: Reviewed. GENERAL: Well-developed in no acute distress. Skin color ashen lozano. HEENT: Head is normocephalic. Neck supple. No JVD LUNGS: Respirations even and unlabored. Lungs with decreased air exchange bilaterally, diminished in the bases. HEART: Regular rate and rhythm. S1 and S2 heard. Systolic murmur noted ABDOMEN: Soft. Nondistended. Nontender. EXTREMITIES: Normal range of motion. No clubbing or cyanosis. Peripheral pul ses intact. No lower extremity edema NEUROLOGIC: Awake and alert. Oriented x 3. ASSESSMENT: Non-STEMI Pneumonia Febrile illness End-stage renal disease on hemodialysis COPD Hypertension Hyperlipidemia History of CVA Paroxysmal atrial fibrillation not on anticoagulation secondary to anemia and hi story of GI bleeding History of seizure disorder History of left lung empyema with previous left-sided VATS Nicotine dependence, patient smokes 1 pack per day Anemia of chronic disease, CKD CAD with left main stenosis, s/p Impella protected PCI left main 09/26 PLAN: Continue aspirin, Plavix and statin Continue beta kadeem Appears stable from a cardiology standpoint. OK for DC from cardio perspective. Objective - Vital Signs Vital signs: Vital Signs Temp 97.9 F 09/28/22 02:00 Pulse 78 09/28/22 02:00 Resp 21 09/28/22 02:00 BP 162/81 09/28/22 02:00 Pulse Ox 95 09/27/22 22:00 FiO2 Intake & Output 09/27/22 09/28/22 09/28/22 18:59 06:59 18:59 Intake Total 690 285 Output Total 0 0 Balance 690 285 Weight 67.3 kg 67 kg Intake: IV 30 30 Invasive Line 5 30 30 Oral 180 Blood Product 660 75 Rc As-1 Unit 310 [id number] Output: Urine 0 0 Other: Voiding Method Urinal # Voids 0 - Labs CBC & Chem 7: 09/27/22 05:26 09/27/22 05:26 Labs: Abnormal Lab Results - Last 24 Hours (Table) 09/25/22 Range/Units 12:44 Crossmatch See Detail
[2022-09-28] MEDS: SYMBICORT 160-4.5 MCG INHALER INHALATION SCH (07:36)
[2022-09-28] MEDS: IPRATROPIUM-ALBUTEROL 3 ML NEB INHALATION SCH ×2 (07:36→11:23)
[2022-09-28 08:26] LABS: Anisocytosis Slight; HCT 23.9 % (39.0-53.0); HGB 8.3 gm/dL (13.0-17.5); Hypochromasia Slight; MCHC 34.9 g/dL (31.0-37.0); MCV 94.6 fL (80.0-100.0); Mean Platelet Volume 7.9; Platelet Count 151 k/uL (150-450); Poikilocytosis Moderate; RBC 2.53 m/uL (4.30-5.90); RDW 16.5 % (11.5-15.5); WBC 8.2 k/uL (3.8-10.6)
[2022-09-28 08:41] LABS: Potassium 4.1 mmol/L (3.5-5.1)
--- NOTE | 2022-09-28 08:58 | P.PN ---
Subjective Patient is seen in follow-up for end-stage renal disease. He is maintained on hemodialysis on Saturday schedule. Underwent cardiac cath 09/26/2022 with stent placement. Currently denies chest pain or shortness of breath. Plan is for discharge today. Vital signs are stable. General: Awake. No acute distress. HEENT: Head exam is unremarkable. LUNGS: Breath sounds decreased. HEART: Rate and Rhythm are regular. ABDOMEN: Soft, no distention. EXTREMITITES: No edema. Objective - Vital Signs Vital signs: Vital Signs Temp 97.9 F 09/28/22 02:00 Pulse 85 09/28/22 07:46 Resp 21 09/28/22 02:00 BP 162/81 09/28/22 02:00 Pulse Ox 95 09/27/22 22:00 FiO2 Intake & Output 09/27/22 09/28/22 09/28/22 18:59 06:59 18:59 Intake Total 690 285 Output Total 0 0 Balance 690 285 Weight 67.3 kg 67 kg Intake: IV 30 30 Invasive Line 5 30 30 Oral 180 Blood Product 660 75 Rc As-1 Unit 310 [id number] Output: Urine 0 0 Other: Voiding Method Urinal # Voids 0 - Labs CBC & Chem 7: 09/28/22 08:14 09/28/22 08:14 Labs: Abnormal Lab Results - Last 24 Hours (Table) 09/25/22 09/28/22 09/28/22 Range/Units 12:44 08:14 08:14 RBC 2.53 L (4.30-5.90) m/uL Hgb 8.3 L (13.0-17.5) gm/dL Hct 23.9 L (39.0-53.0) % RDW 16.5 H (11.5-15.5) % BUN 43 H (9-20) mg/dL Creatinine 8.17 H* (0.66-1.25) mg/dL Glucose 106 H (74-99) mg/dL Crossmatch See Detail Assessment and Plan Plan: Assessment: 1. End-stage renal disease maintained on hemodialysis on Saturday schedule. 2. Non-ST elevated myocardial infarction with severe distal left main disease. Cardiology as well as CTS following. Stent placed 09/26/2022. 3. Hypertension with chronic kidney disease. 4. Chronic kidney disease mineral bone disease maintained on Renvela. 5. Anemia of chronic kidney disease. Denies any active bleeding. On Aranesp. Status post blood transfusion this admission. Hemoglobin 8.3 today. Also received IV DDAVP 09/26/2022. No active bleeding. Plan: Hemodialysis today. Increase dose of Cardura. Patient frequently misses hemodialysis treatments outpatient. Life-threatening effects of noncompliance, including and cardiac disease, has been discussed with the patient multiple times. Tobacco cessation also discussed.
[2022-09-28] MEDS ORDERED: DOXAZOSIN 2 MG TAB PO SCH (09:00)
[2022-09-28] MEDS: NICOTINE 21MG/24HR PATCH TRANSDERM SCH (09:07)
[2022-09-28] MEDS: levETIRAcetam 500 MG TAB PO SCH (09:08)
[2022-09-28] MEDS: PANTOPRAZOLE 40 MG TABLET PO SCH (09:08)
[2022-09-28] MEDS: GABAPENTIN 100 MG CAP PO SCH (09:08)
[2022-09-28] MEDS: amLODIPine 5 MG TAB PO SCH (09:08)
[2022-09-28] MEDS: CLOPIDOGREL 75 MG TAB PO SCH (09:09)
[2022-09-28] MEDS: ASPIRIN 81 MG PO SCH (09:09)
[2022-09-28] MEDS: SEVELAMER 800 MG TAB PO SCH (09:09)
--- NOTE | 2022-09-28 13:04 | P.PN ---
Subjective Progress Note Date: 09/28/22 Principal diagnosis: Acute non-ST elevation myocardial infarction 52-year-old male seen yesterday in consultation. The patient was found have a distal left main obstruction. I spoke to the academic hospitalist, who is going to have the cardiothoracic surgeons see the patient as well. I'm not sure what the plan long-term is. Currently, the patient's on 4 L of oxygen. He is getting saline at 10 mL an hour, and IV heparin. The patient does have severe COPD, with an FEV1 was 46% of predicted, on a PFT that was done back in 2018. He does continue to smoke. Other medical history substantial and includes end-stage renal disease, on 3 time a week hemodialysis, CVA, seizures, myocardial infarction, and chronic hypoxemic respiratory failure. White count 4.6, hemoglobin 7.2, hematocrit 22.1, and platelet count 265,000. PTT is 58. Sodium 139, potassium 3.7, chlorides 97, CO2 25, BUN 41, creatinine 8.73. The patient is seen today 09/24/2022 in follow-up on the selective care unit. He is currently resting comfortably in bed. Awake and alert in no acute distress. He is maintaining O2 saturations in the 90s on 3 L/m per nasal cannula. He is afebrile. Patient culture reveals no growth. Blood cultures reveal no growth. White count 4.9. Hemoglobin 7.4. Sodium 139. Potassium 4.2. BUN 49. Creatinine 10.3. Glucose 103. He is continued on a heparin drip. He remains on bronchodilators. Remains on antibiotics in the form of ceftriaxone. NicoDerm patch in place. The patient is not a cardiac surgery candidate. The plan is for high risk PCI of the left main tomorrow per cardiology. The patient is seen today 09/25/2022 in follow-up on the selective care unit. He is currently sitting up at the bedside. Awake and alert in no acute distress. He is maintaining good O2 saturations in the 90s on 2 L/m per nasal cannula. Sputum culture reveals no growth. Blood cultures revealed no growth. White count 6.2. Hemoglobin 6.6. Platelets 177. Sodium 141 potassium 4.4. BUN 30. Creatinine 6.77. He is on a heparin drip. Antibiotics in the form of ceftriaxone. Remains on bronchodilators. Plan is for PCI of the left main as the patient is considered too high risk for any surgical intervention. The patient is seen today 09/26/2022 in follow-up on the selective care unit. He is currently up ambulating in his room. Awake and alert in no acute distress. He denied any chest pain. No worsening shortness of breath, cough or congestion. His hemoglobin is up to 7.4 following a unit of packed red blood cells for a hemoglobin of 6.6 yesterday. Blood cultures reveal no growth. Sputum culture revealed no growth. White count 7.4. Hemoglobin 7.4. Platelets 160. Sodium 142. Potassium 4.5. BUN 41. Creatinine 8.1. Glucose 101. The plan is for stenting of the left main with Impella support today. Patient is now in the ICU evaluated on 09/27/22, patient underwent impella protected left main stenting yesterday. Patient had a relatively uneventful postoperative course. Patient is doing well, his hemoglobin dropped down to 6.9 today, and I'm recommending units of packed RBCs to be given. Patient is being followed by nephrology for his chronic kidney disease and hemodialysis, no plans to hemodialyze the patient today, and this will be done likely tomorrow. Patient denies any chest pain denies any cough wheezing or shortness of breath although on physical examination he has rhonchi and wheezes. WBC count is 8.1 hemoglobin 6.9 ,BUN is 24 creatinine 5.52. Reevaluated today on 09/28/22, patient remains in the ICU, he is doing quite well, relatively asymptomatic, the plan is to discharge the patient home today after hemodialysis. Patient was cleared by all the consultants including cardiology to have him discharged home today. Pulmonary-wright he is feeling fine, hardly any cough or wheezing, no chest pain. A CBC is relatively normal. Electrolytes are normal. Objective - Vital Signs Vital signs: Vital Signs Temp 97.9 F 09/28/22 02:00 Pulse 78 09/28/22 11:33 Resp 21 09/28/22 08:00 BP 162/81 09/28/22 02:00 Pulse Ox 95 09/27/22 22:00 FiO2 Intake & Output 09/27/22 09/28/22 09/28/22 18:59 06:59 18:59 Intake Total 690 285 10 Output Total 0 0 Balance 690 285 10 Weight 67.3 kg 67 kg Intake: IV 30 30 10 Invasive Line 5 30 30 10 Oral 180 Blood Product 660 75 Rc As-1 Unit 310 [id number] Output: Urine 0 0 Other: Voiding Method Urinal Urinal # Voids 0 - Exam GENERAL EXAM: Revealed 52-year-old in no distress on room air. HEAD: Normocephalic. EENT: PERRLA, EOMI, CHEST: No chest wall deformity. LUNGS: Scattered rhonchi noted bilaterally. CVS: S1 and S2 normal with no audible murmur, regular rhythm. ABDOMEN: No hepatosplenomegaly, normal bowel sounds, no guarding or rigidity. SPINE: No scoliosis or deformity SKIN: No rashes CENTRAL NERVOUS SYSTEM: Alert oriented 3 no gross focal deficit EXTREMITIES: Trace of bipedal edema. - Labs CBC & Chem 7: 09/28/22 08:14 09/28/22 08:14 Labs: Abnormal Lab Results - Last 24 Hours (Table) 09/25/22 09/28/22 09/28/22 Range/Units 12:44 08:14 08:14 RBC 2.53 L (4.30-5.90) m/uL Hgb 8.3 L (13.0-17.5) gm/dL Hct 23.9 L (39.0-53.0) % RDW 16.5 H (11.5-15.5) % BUN 43 H (9-20) mg/dL Creatinine 8.17 H* (0.66-1.25) mg/dL Glucose 106 H (74-99) mg/dL Crossmatch See Detail Assessment and Plan Assessment: Acute non-ST segment elevation myocardial infarction with distal left main coronary obstruction. Status post PCI of left pain, done on 09/26/22 Anemia of chronic disease, hemoglobin today is 6.9, will transfuse with 1 unit of packed RBCs today. History of severe COPD, with an FEV1 percent is 46, back in 2018. Resolving right midlung pneumonia, possibly healthcare acquired pneumonia, chest x-ray today showed significant improvement in his pneumonia. Patient remains on Rocephin. Chronic hypoxemic respiratory failure, on home O2 at 3 L. Ongoing tobacco use with nicotine addiction. End-stage renal disease, with 3 times a week hemodialysis. History of CVA. Paroxysmal atrial fibrillation, not on anticoagulants due to GI bleed. History of gastric ulcer. History of hypertension. History of pleural and pericardial effusion. History of myocardial infarction. History of coronavirus associated pneumonia. History of seizure disorder. Recommendation: Agree with discharging the patient home today. If cleared by other consultants/mostly cardiology and nephrology Continue aspirin and Plavix and statins Resume home meds and bronchodilators on outpatient basis. Reevaluate on outpatient basis in 2 weeks Time with Patient: Less than 30
[2022-09-28 13:43] VITALS: BP 117/79; RESP 18
[2022-09-28 14:01] VITALS: PULSE 86
--- NOTE | 2022-09-29 09:03 | P.DS ---
Providers Date of admission: 09/20/22 12:35 Expected date of discharge: 09/28/22 Attending physician: Trenton Bentley Consults: 09/20/22 12:36 Consult Physician Routine Consulting Provider: Rick Park Consult Reason/Comments: ESRD HD MWF Do you want consulting provider notified?: Yes Consult Physician Routine Consulting Provider: Alexi Mayorga Consult Reason/Comments: NSTEMI Do you want consulting provider notified?: Already Contacted 09/21/22 13:02 Consult Physician Routine Consulting Provider: Rasta Bach Consult Reason/Comments: cabg Do you want consulting provider notified?: Yes 09/21/22 13:05 Consult Physician Routine Consulting Provider: Reilly Leggett Consult Reason/Comments: copd Do you want consulting provider notified?: Yes 09/26/22 14:04 Consult Physician Routine Consulting Provider: [facility] Consult Reason/Comments: Post Interventional Patient Do you want consulting provider notified?: Already Contacted Primary care physician: Jaylen Holguin [facility] Course: Final diagnosis Worsening shortness of breath Secondary to pulmonary vascular congestion and pneumonia Post stenting with Impella to the left main Acute right lower lobe multifocal pneumonia Acute non-ST elevated [place] Elevated troponin level ESRD on hemodialysis Saturday and Saturday anemia, most likely of chronic disease Paroxysmal atrial fibrillation not on anticoagulation due to history of prior GI bleed Hypertension Chronic thrombocytopenia History of seizure disorder Hyperlipidemia History of left thalamus CVA no residual focal deficits Currently everyday smoker DVT prophylaxis Discharge disposition Patient is being discharged in a stable condition with guarded prognosis to home . Patient will follow-up with Dr. Holguin in the outpatient setting upon discharge. Patient is to continue with hemodialysis as scheduled and close outpatient follow up with cardiology and nephrology. Total time taken is greater than 35 minutes. Hospital course This is a 52-year-old male who was recently admitted with chest pain and troponin elevation. Concern for pneumonia as procalcitonin was elevated and treated with IV abx during admission. Patient underwent cardiac catheterization and initially underwent work up for possible CABG although not a candidate and underwent PCI stenting with impella to the left main. Cardiology recommends maxi mizing medical management and strongly encouraged medication and follow up compliance. Patient had 2 units of PRBC transfused during admission. Patient has history of missing dialysis. Patient is to continue with M/W/F schedule. Recommend follow up with nephrology for aranesp injections weekly. Patient encouraged to avoid tobacco use and exposure. Patient has been cleared by consultations for discharge. Currently no reports of chest pain, shortness of breath, or palpitations. Patient is afebrile. No reports of nausea or vomiting and patient is tolerating diet. Patient will be discharge home today. Guarded prognosis. Physical exam: Gen: This is a 52 year old male who is awake, alert, and oriented x3. Thin built elderly appearing male. HEENT: Head is atraumatic, normocephalic. Pupils equal, round. Sclerae is anicteric. NECK: Supple. No JVD. No lymphadenopathy. No thyromegaly. LUNGS: diminished breath sounds bilaterally with coarse rhonchi. No intercostal retractions. HEART: Regular rate and rhythm. No murmur. ABDOMEN: Soft. Bowel sounds are present. No masses. No tenderness. EXTREMITIES: No pedal edema. No calf tenderness. NEUROLOGICAL: Patient is awake, alert and oriented x3. Cranial nerves 2 through 12 are grossly intact. Please refer to medication reconciliation sheet for a list of medications. The impression and plan of care has been dictated by Joanna Jefferson, Nurse Practitioner as directed. Dr. Mc MD I have performed a history and examination and MDM of this patient, discussed the same with the dictator, and agree with the dictator's assessment and plan as written ,documented as a scribe. Based on total visit time, I have performed more than 50% of the visit. Patient Condition at Discharge: Stable Plan - Discharge Summary Discharge Rx Participant: Yes New Discharge Prescriptions: New Aspirin 81 mg PO DAILY 30 Days #30 tab Atorvastatin [Lipitor] 80 mg PO HS 30 Days #30 tab Budesonide-Formot 160-4.5 Mcg [Symbicort 160-4.5 Mcg Inhaler] 2 puff INHALATION RT-BID 30 Days #1 each Darbepoetin Jim [Aranesp] 40 mcg SQ Q7D each Metoprolol Tartrate [Lopressor] 50 mg PO BID 30 Days #60 tab Clopidogrel [Plavix] 75 mg PO DAILY 30 Days #30 tab Acetaminophen Tab [Tylenol] 650 mg PO Q6HR PRN tab PRN Reason: Mild Pain Or Fever > 100.5 Continue Sevelamer [Renvela] 1,600 mg PO DIRECTED hydrALAZINE HCL [Apresoline] 100 mg PO TID@0700,1200,1700 Pantoprazole [Protonix] 40 mg PO BID@0700,1700 Gabapentin [Neurontin] 100 mg PO BID@0700,1700 amLODIPine [Norvasc] 5 mg PO BID@0700,1700 Calcium Acetate [PhosLo] 667 mg PO TID-W/MEALS Doxazosin [Cardura] 6 mg PO BID #120 tab Lactulose [Cephulac] 20 gm PO DAILY PRN PRN Reason: Constipation Patiromer Calcium Sorbitex [Veltassa] 1 packet PO DAILY methocarbamoL [Robaxin-750] 750 mg PO BID PRN PRN Reason: Pain levETIRAcetam [Keppra] 1,000 mg PO BID@0700,1900 Discontinued Furosemide [Lasix] 80 mg PO BID@0700,1700 Labetalol [Trandate] 200 mg PO BID Discharge Medication List Sevelamer [Renvela] 1,600 mg PO DIRECTED 06/16/19 [History] Pantoprazole [Protonix] 40 mg PO BID@0700,1700 04/08/20 [History] hydrALAZINE HCL [Apresoline] 100 mg PO TID@0700,1200,1700 04/08/20 [History] Gabapentin [Neurontin] 100 mg PO BID@0700,1700 05/30/20 [History] amLODIPine [Norvasc] 5 mg PO BID@0700,1700 05/30/20 [History] Calcium Acetate [PhosLo] 667 mg PO TID-W/MEALS 12/15/20 [History] Doxazosin [Cardura] 6 mg PO BID #120 tab 08/16/22 [Rx] Lactulose [Cephulac] 20 gm PO DAILY PRN 09/20/22 [History] Patiromer Calcium Sorbitex [Veltassa] 1 packet PO DAILY 09/20/22 [History] levETIRAcetam [Keppra] 1,000 mg PO BID@0700,1900 09/20/22 [History] methocarbamoL [Robaxin-750] 750 mg PO BID PRN 09/20/22 [History] Acetaminophen Tab [Tylenol] 650 mg PO Q6HR PRN tab 09/28/22 [Rx] Aspirin 81 mg PO DAILY 30 Days #30 tab 09/28/22 [Rx] Atorvastatin [Lipitor] 80 mg PO HS 30 Days #30 tab 09/28/22 [Rx] Budesonide-Formot 160-4.5 Mcg [Symbicort 160-4.5 Mcg Inhaler] 2 puff INHALATION RT-BID 30 Days #1 each 09/28/22 [Rx] Clopidogrel [Plavix] 75 mg PO DAILY 30 Days #30 tab 09/28/22 [Rx] Darbepoetin Jim [Aranesp] 40 mcg SQ Q7D each 09/28/22 [Rx] Metoprolol Tartrate [Lopressor] 50 mg PO BID 30 Days #60 tab 09/28/22 [Rx] Follow up Appointment(s)/Referral(s): Ady Fraire MD [STAFF PHYSICIAN] - 1 Week Alexi Mayorga MD [STAFF PHYSICIAN] - 1 Week Jaylen Holguin MD [Primary Care Provider] - 1-2 days Rick Park DO [STAFF PHYSICIAN] - 1 Week Activity/Diet/Wound Care/Special Instructions: Activity Limited until follow-up Follow-up with nephrology outpatient Continue your Saturday/Saturday/Saturday dialysis Continue taking medications as prescribed Follow-up with cardiology outpatient as discussed Discuss weekly Aranesp injections in the office with nephrology Discharge Disposition: HOME SELF-CARE
== END 2022-09-28 14:00 | disposition home or self-care (01) | DRG 216 ==
LOC: EC 09:54 → 3SCARD 12:35 → 2SICU 09-26 12:52
PROVIDERS: ADMIT Internal Medicine; ATTEND Internal Medicine
PROC: 5A1D70Z Performance of Urinary Filtration, Intermittent, Less than 6 Hours Per Day (ICD-10-PCS; 2022-09-21)
PROC: B2111ZZ Fluoroscopy of Multiple Coronary Arteries using Low Osmolar Contrast (ICD-10-PCS; 2022-09-21)
PROC: 4A023N7 Measurement of Cardiac Sampling and Pressure, Left Heart, Percutaneous Approach (ICD-10-PCS; 2022-09-21)
PROC: 30233N1 Transfusion of Nonautologous Red Blood Cells into Peripheral Vein, Percutaneous Approach (ICD-10-PCS; 2022-09-25)
PROC: 027034Z Dilation of Coronary Artery, One Artery with Drug-eluting Intraluminal Device, Percutaneous Approach (ICD-10-PCS; principal; 2022-09-26 12:00)
PROC: 02HA3RJ Insertion of Short-term External Heart Assist System into Heart, Intraoperative, Percutaneous Approach (ICD-10-PCS; principal; 2022-09-26 12:00)
PROC: 5A0221D Assistance with Cardiac Output using Impeller Pump, Continuous (ICD-10-PCS; principal; 2022-09-26 12:00)
DX: I21.4 Non-ST elevation (NSTEMI) myocardial infarction (principal); J18.9 Pneumonia, unspecified organism; N18.6 End stage renal disease; I12.0 Hypertensive chronic kidney disease with stage 5 chronic kidney disease or end stage renal disease; I31.39 Other pericardial effusion (noninflammatory); J96.11 Chronic respiratory failure with hypoxia; J90 Pleural effusion, not elsewhere classified; I25.10 Atherosclerotic heart disease of native coronary artery without angina pectoris; I25.2 Old myocardial infarction; E87.70 Fluid overload, unspecified; D63.1 Anemia in chronic kidney disease; E83.9 Disorder of mineral metabolism, unspecified; D69.6 Thrombocytopenia, unspecified; J43.9 Emphysema, unspecified; G40.909 Epilepsy, unspecified, not intractable, without status epilepticus; I08.0 Rheumatic disorders of both mitral and aortic valves; Z99.2 Dependence on renal dialysis; E78.5 Hyperlipidemia, unspecified; M48.00 Spinal stenosis, site unspecified; M54.2 Cervicalgia; G89.29 Other chronic pain; I48.0 Paroxysmal atrial fibrillation; Z95.1 Presence of aortocoronary bypass graft; Z99.81 Dependence on supplemental oxygen; F17.210 Nicotine dependence, cigarettes, uncomplicated; Z71.6 Tobacco abuse counseling; Z28.310 Unvaccinated for COVID-19; Z71.3 Dietary counseling and surveillance; Z86.16 Personal history of COVID-19; Z87.01 Personal history of pneumonia (recurrent); Z88.5 Allergy status to narcotic agent; Z87.11 Personal history of peptic ulcer disease; Z53.9 Procedure and treatment not carried out, unspecified reason; Z79.899 Other long term (current) drug therapy; Z80.7 Family history of other malignant neoplasms of lymphoid, hematopoietic and related tissues; Z86.73 Personal history of transient ischemic attack (TIA), and cerebral infarction without residual deficits; Z87.442 Personal history of urinary calculi; Z82.3 Family history of stroke; Z86.718 Personal history of other venous thrombosis and embolism; Z87.19 Personal history of other diseases of the digestive system; Z88.8 Allergy status to other drugs, medicaments and biological substances
CPT/HCPCS: 0715T; 33990; 36415; 71045; 71046; 80048; 80053; 82728; 83540; 83550; 83605; 83880; 84145; 84484; 85025; 85027; 85610; 85730; 86706; 86850; 86900; 86901; 86920; 87040; 87070; 87205; 87340; 87502; 87635; 90935; 92978; 93005; 93306; 93458; 94150; 94640; 94760; 96365; 96375; 99285

== ENCOUNTER 2023-01-30 16:40 | Inpatient (IN) | payer MEDICARE, BC ==
[2023-01-30] MEDS ORDERED: NITROGLYCERIN OINT 1 INCH/GM PACKET TOPICAL STA (17:53)
[2023-01-30] MEDS ORDERED: ASPIRIN 81 MG PO STA (17:53)
--- NOTE | 2023-01-30 17:57 | ED ---
General Adult HPI - General Chief complaint: Chest Pain Stated complaint: Chest Pain/Sob Time Seen by Provider: 01/30/23 17:38 Source: patient, RN notes reviewed Mode of arrival: wheelchair Limitations: no limitations - History of Present Illness Initial comments: Patient is a pleasant 62-year-old male presenting to the emergency department with concerns for chest discomfort. Onset of symptoms was 1-2 weeks ago. Discomfort is mild at this time rated 3/10. Discomfort feels a pressure without radiation. There is some associated dyspnea. Patient has had elevated blood pressure recently. There has been discussions regarding possible medication c hangliza. Patient did not make dialysis today as he was advised come the emergency department - Related Data Home Medications Medication Instructions Recorded Confirmed Sevelamer [Renvela] 800 mg PO DIRECTED 06/16/19 01/30/23 Pantoprazole [Protonix] 40 mg PO BID@0600,1800 04/08/20 01/30/23 hydrALAZINE HCL [Apresoline] 100 mg PO TID@0600,1200,1800 04/08/20 01/30/23 amLODIPine [Norvasc] 5 mg PO BID@0600,1800 05/30/20 01/30/23 Calcium Acetate [PhosLo] 667 mg PO TID-W/MEALS 12/15/20 01/30/23 Lactulose [Cephulac] 20 gm PO DAILY PRN 09/20/22 01/30/23 levETIRAcetam [Keppra] 1,000 mg PO BID@0600,1800 09/20/22 01/30/23 methocarbamoL [Robaxin-750] 750 mg PO BID PRN 09/20/22 01/30/23 Aspirin 81 mg PO DAILY@1600 01/21/23 01/30/23 Atorvastatin [Lipitor] 80 mg PO DAILY@1800 01/21/23 01/30/23 Clopidogrel [Plavix] 75 mg PO DAILY@1600 01/21/23 01/30/23 Doxazosin [Cardura] 4 mg PO BID 01/21/23 01/30/23 Fluticasone Propion/Salmeterol 1 puff INHALATION RT-BID 01/21/23 01/30/23 [Wixela 250-50 Inhub] Metoprolol Tartrate [Lopressor] 50 mg PO BID@0600,1800 01/21/23 01/30/23 Nitroglycerin Sl Tabs [Nitrostat] 0.4 mg SUBLINGUAL Q5M PRN 01/21/23 01/30/23 Previous Rx's Medication Instructions Recorded Budesonide-Formot 160-4.5 Mcg 1 puff INHALATION RT-BID 30 Days 01/23/23 [Symbicort 160-4.5 Mcg Inhaler] #1 each Allergies Allergy/AdvReac Type Severity Reaction Status Date / Time baclofen AdvReac "too Verified 01/30/23 18:51 strong/sedated" hydromorphone [From Dilaudid] AdvReac Hallucinati Verified 01/30/23 18:51 ons morphine AdvReac Hallucinati Verified 01/30/23 18:51 ons tramadol AdvReac Hallucinati Verified 01/30/23 18:51 ons Review of Systems ROS Statement: Those systems with pertinent positive or pertinent negative responses have been documented in the HPI. ROS Other: All systems not noted in ROS Statement are negative. Constitutional: Denies: fever Eyes: Denies: eye pain ENT: Denies: ear pain Respiratory: Reports: as per HPI, dyspnea Cardiovascular: Reports: as per HPI, chest pain Endocrine: Denies: fatigue Gastrointestinal: Denies: abdominal pain Genitourinary: Denies: dysuria Musculoskeletal: Denies: back pain Skin: Denies: rash Neurological: Denies: weakness Past Medical History Past Medical History: Atrial Fibrillation, Blood Disorder, CVA/TIA, Dialysis, Eye Disorder, GI Bleed, Hyperlipidemia, Hypertension, Renal Disease, Seizure Disorder Additional Past Medical History / Comment(s): Urolithiasis/nephrolithiasis, acute hypoxic respiratory failure after missed dialysis, lower GI bleed, duoden al ulcer, seizures with last seizures 2017, 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 eye injection with steroid on 04/04 for eye "stroke" , history of left-sided thoracentesis in January 2018, lungs tapped Past Anesthesia/Blood Transfusion Reactions: No Reported Reaction Additional Past Anesthesia/Blood Transfusion Reaction / Comment(s): Pt has received blood in past without reaction. Date of Last Stent Placement:: 2021 Past Psychological History: No Psychological Hx Reported Smoking Status: Current every day smoker Past Alcohol Use History: None Reported Past Drug Use History: None Reported - Past Family History Father Family Medical History: Cancer, CVA/TIA, Myocardial Infarction ([place]) Additional Family Medical History / Comment(s): Father had lymphoma. He had a CVA. Mother Family Medical History: CVA/TIA Additional Family Medical History / Comment(s): Mother had a CVA. Sister(s) Additional Family Medical History / Comment(s): Patient has 5 sisters one has from an aneurysm in the brain. 2 sisters have history of kidney stones. Patient has one brother that was shot as cause of , he was on the kidney transplant list. Patient has 6 children with no major medical problems. General Exam Limitations: no limitations General appearance: alert, in no apparent distress Head exam: Present: normocephalic Eye exam: Present: normal appearance Neck exam: Present: normal inspection Respiratory exam: Present: normal lung sounds bilaterally. Absent: chest wall tenderness Cardiovascular Exam: Present: regular rate, normal rhythm Expanded Peripheral pulses: 2+: Radial (R) (Positive thrill), Radial (L), Posterior Tibialis (R), Posterior Tibialis (L) GI/Abdominal exam: Present: soft. Absent: tenderness Extremities exam: Present: normal inspection. 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 QT 40. QTc 491), sinus rhythm, normal axis, normal QRS Medical Decision Making - Medical Decision Making Was pt. sent in by a medical professional or institution (, PA, BOARD OF EDUCATION SECRETARY, urgent care, hospital, or custodial...) When possible be specific @ -No Did you speak to anyone other than the patient for history (EMS, parent, family, police, friend...)? What history was obtained from this source @ -Family's present and helps provide history including missing dialysis today Did you review nursing and triage notes (agree or disagree)? Why? @ -I reviewed and agree with nursing and triage notes Were old charts reviewed (outside hosp., previous admission, EMS record, old EKG, old radiological studies, urgent care reports/EKG's, custodial records)? Report findings @ -No old charts were reviewed Differential Diagnosis (chest pain, altered mental status, abdominal pain women, abdominal pain men, vaginal bleeding, weakness, fever, dyspnea, syncope, headache, dizziness, GI bleed, back pain, seizure, CVA, palpatations, mental health)? @ -Differential Chest Pain: Stable Angina, Unstable Angina, STEMI, NSTEMI Aortic Dissection, Pneumothorax, Musculoskeletal, Esophageal Spasm GERD, Cholecystitis, Pancreatitis, Zoster, this is not meant to be an all-inclusive list. EKG interpreted by me (3pts min.). @ -As above X-rays interpreted by me (1pt min.). @ -Chest x-ray shows pulmonary edema/CHF CT interpreted by me (1pt min.). @ -None done U/S interpreted by me (1pt. min.). @ -None done What testing was considered but not performed or refused? (CT, X-rays, U/S, labs)? Why? @ -None What meds were considered but not given or refused? Why? @ -None Did you discuss the management of the patient with other professionals (carole hodgson i.e. , PA, BOARD OF EDUCATION SECRETARY, lab, RT, psych nurse, social organization professor, calender wind up helper, teacher, nursing officer, special education case manager)? Give summary @ -Case was discussed with practitioner Kylie Dudley, covering for Dr. Bentley, who will admit covering Dr. Holguin Was smoking cessation discussed for >3mins.? @ -No Was critical care preformed (if so, how long)? @ -No Were there social determinants of health that impacted care today? How? (Homelessness, low income, unemployed, alcoholism, drug addiction, transpo rtation, low edu. Level, literacy, decrease access to med. care, group home, rehab)? @ -No Was there de-escalation of care discussed even if they declined (Discuss DNR or withdrawal of care, Hospice)? DNR status @ -No What co-morbidities impacted this encounter? (DM, HTN, Smoking, COPD, CAD, Cancer, CVA, ARF, Chemo, Hep., AIDS, mental health diagnosis, sleep apnea, morbid obesity)? @ -None Was patient admitted / discharged? Hospital course, mention meds given and route, prescriptions, significant lab abnormalities, going to OR and other pertinent info. @ -Patient reevaluated and updated. Labs have been redrawn. Patient clinically has symptoms of fluid overload with chest x-ray changes and missed dialysis. Patient will also need repeat cardiac enzymes and evaluation Undiagnosed new problem with uncertain prognosis? @ -No Drug Therapy requiring intensive monitoring for toxicity (Heparin, Nitro, Insuli n, Cardizem)? @ -No Were any procedures done? @ -No Diagnosis/symptom? @ -CHF, chest pain Acute, or Chronic, or Acute on Chronic? @ -Acute, acute Uncomplicated (without systemic symptoms) or Complicated (systemic symptoms)? @ -default Side effects of treatment? @ -No Exacerbation, Progression, or Severe Exacerbation? @ -No Poses a threat to life or bodily function? How? (Chest pain, [place], [place], pneumonia, PE, COPD, DKA, ARF, appy, cholecystitis, CVA, Diverticulitis, Homicidal, Suicidal, threat to staff... and all critical care pts) @ -No - Lab Data Result diagrams: 01/30/23 17:50 Lab Results 01/30/23 01/30/23 01/30/23 Range/Units 17:50 17:50 17:50 PT 11.0 (9.0-12.0) sec INR 1.1 (<1.2) APTT 25.4 (22.0-30.0) sec Sodium 138 (137-145) mmol/L Potassium 4.0 (3.5-5.1) mmol/L Chloride 99 (98-107) mmol/L Carbon Dioxide 27 (22-30) mmol/L Anion Gap 12 mmol/L BUN 47 H (9-20) mg/dL Creatinine 10.50 H* (0.66-1.25) mg/dL Est GFR (CKD-EPI)AfAm 6 (>60 ml/min/1.73 sqM) Est GFR (CKD-EPI)NonAf 5 (>60 ml/min/1.73 sqM) Glucose 113 H (74-99) mg/dL Calcium 8.3 L (8.4-10.2) mg/dL Magnesium 2.0 (1.6-2.3) mg/dL Total Bilirubin 0.9 (0.2-1.3) mg/dL AST 23 (17-59) U/L ALT 15 (4-49) U/L Alkaline Phosphatase 68 (38-126) U/L Troponin I 0.031 (0.000-0.034) ng/mL Total Protein 6.3 (6.3-8.2) g/dL Albumin 3.9 (3.5-5.0) g/dL Disposition Clinical Impression: Missed dialysis, Pulmonary edema, Chest pain Disposition: ADMITTED IP TO THIS HOSP Is patient prescribed a controlled substance at d/c from ED?: No Referrals: Jaylen Holguin MD [Primary Care Provider] - 1-2 days Time of Disposition: 20:17
[2023-01-30 18:20] LABS: Basophils # (A) 0.1 k/uL (0-0.2); Basophils % (A) 1 %; Eosinophils # (A) 0.1 k/uL (0-0.7); Eosinophils % (A) 2 %; HCT 23.4 % (39.0-53.0); HGB 7.9 gm/dL (13.0-17.5); Lymphocytes # (A) 0.7 k/uL (1.0-4.8); Lymphocytes % (A) 14 %; MCH 33.7 pg (25.0-35.0); MCHC 33.9 g/dL (31.0-37.0); MCV 99.5 fL (80.0-100.0); Macrocytosis Slight; Mean Platelet Volume 7.6; Monocytes # (A) 0.3 k/uL (0-1.0); Monocytes % (A) 6 %; Neutrophils # (A) 3.6 k/uL (1.3-7.7); Neutrophils % (A) 75 %; Poikilocytosis Slight; RBC 2.35 m/uL (4.30-5.90); RDW 15.1 % (11.5-15.5); WBC 4.8 k/uL (3.8-10.6)
[2023-01-30 18:28] LABS: Albumin 3.9 g/dL (3.5-5.0); Calcium 8.3 mg/dL (8.4-10.2); Total Bilirubin 0.9 mg/dL (0.2-1.3); Total Protein 6.3 g/dL (6.3-8.2)
--- NOTE | 2023-01-30 18:31 | XR ---
EXAMINATION TYPE: XR chest 2V DATE OF EXAM: 01/30/2023 COMPARISON: 01/21/2023 HISTORY: Dysrhythmia TECHNIQUE: FINDINGS: Heart is normal in size. There is coarsening of the interstitial markings. There is some blunting of the costophrenic angles more on the right side. There are no hilar masses. There are chest leads. The re is some coalescent infiltrate posterior right lower lobe. IMPRESSION: There is pulmonary interstitial edema and right pleural effusion that is slightly worse t bhakta last exam and could be some chronic congestive heart failure. Interstitial pneumonia also possibl e.
[2023-01-30 18:34] LABS: INR 1.1 (<1.2); Partial Thromboplastin Time 25.4 sec (22.0-30.0)
[2023-01-30] MEDS ORDERED: NITROGLYCERIN SL TABS 0.4 MG TAB SUBLINGUAL PRN ×2 (20:17→22:35)
[2023-01-30 21:03] LABS: Platelet Count 95 k/uL (150-450)
[2023-01-30] MEDS ORDERED: SYMBICORT 80-4.5 MCG INHALER INHALATION SCH (22:35)
[2023-01-30] MEDS: CALCIUM ACETATE 667 MG TAB PO SCH (23:05)
[2023-01-30] MEDS: ATORVASTATIN 80 MG TAB PO SCH (23:13)
[2023-01-30] MEDS: amLODIPine 5 MG TAB PO SCH (23:13)
[2023-01-30] MEDS: PANTOPRAZOLE 40 MG TABLET PO SCH (23:13)
[2023-01-30] MEDS: levETIRAcetam 500 MG TAB PO SCH (23:13)
[2023-01-30] MEDS: METOPROLOL TARTRATE 50 MG TAB PO SCH (23:13)
[2023-01-30] MEDS: NITROGLYCERIN OINT 1 INCH/GM PACKET TOPICAL SCH (23:14)
[2023-01-31] MEDS ORDERED: hydrALAZINE HCL 20 MG/ML 1 ML VIAL IVP PRN (04:01)
[2023-01-31] MEDS: amLODIPine 5 MG TAB PO SCH ×2 (06:17→17:06)
[2023-01-31] MEDS: levETIRAcetam 500 MG TAB PO SCH ×2 (06:17→17:06)
[2023-01-31] MEDS: PANTOPRAZOLE 40 MG TABLET PO SCH ×2 (06:18→17:06)
[2023-01-31] MEDS: hydrALAZINE HCL 50 MG TAB PO SCH ×3 (06:18→17:06)
[2023-01-31] MEDS: METOPROLOL TARTRATE 50 MG TAB PO SCH ×2 (06:18→17:06)
[2023-01-31] MEDS: NITROGLYCERIN OINT 1 INCH/GM PACKET TOPICAL SCH ×3 (06:18→17:07)
--- NOTE | 2023-01-31 07:09 | P.HPIM ---
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 There was mentioned of elevated blood pressure off and on for 2 weeks. He states that his been having this chest pain over the last 2-3 days since last Saturday about 4-5/10 in severity, central nonradiating felt like tightness. Patient also complained from little dyspnea however he is not orthopneic more tachypneic while he is lying in bed in the emergency room today. No cough and No specific GI complaints like no nausea vomiting or diarrhea or abdominal pain but complains from some indigestion, no swallowing problems. Patient makes little urine and with no complaint If that little dizzy but now is better, no headache, he has generalized weakness but no asymmetric weakness or numbness. He smokes 1 pack per day and he was counseled to quit and he agrees but he declines nicotine patch that and it does not work. No alcohol or illicit drugs. Patient conference he did not miss hemodialysis but he was sent from dialysis ce nter to the hospital. His rippler is Dr. Mayorga who has history of coronary artery disease status post stent placement about 4 months ago ( Successful stenting of the distal calcified left main with reduction of stenosis from 80 % to 5%) Blood pressure elevated on admission 190/96 and then 215/100, currently blood pressure is better controlled 166/82. Hemoglobin 7.9 which is at baseline, MCV is within the reference range. Mildly low platelet count and 95,000 INR is normal. Creatinine elevated but rest of the BMP is unremarkable. Liver enzymes are normal. Troponin 2 are 0.031 Elevated proBNP 46920 Chest x-ray: There is pulmonary interstitial edema and right pleural effusion that is slightly worse than last exam and could be some chronic congestive heart failure. Interstitial pneumonia is also possible EKG showing normal sinus rhythm at [address]-T changes Echocardiogram in 10/09: Ejection fraction 45-50% with [id number] mitral regurgitation In the emergency room patient received aspirin 325%, and continue with daily aspirin 81 mg Patient was admitted with cardiology and nephrology consult Review of Systems Review of systems CONSTITUTIONAL: No fever, no malaise, no fatigue. HEENT: No recent visual problems or hearing problems. Denied any sore throat. CARDIOVASCULAR: No orthopnea, PND, no palpitations, no syncope. PULMONARY: No shortness of breath, no cough, no hemoptysis. GASTROINTESTINAL: No diarrhea, no nausea, no vomiting, no abdominal pain. Normoactive bowel sounds. NEUROLOGICAL: No headaches, no weakness, no numbness. HEMATOLOGICAL: Denies any bleeding or petechiae. GENITOURINARY: Denies any burning micturition, frequency, or urgency. MUSCULOSKELETAL/RHEUMATOLOGICAL: Denies any joint pain, swelling, or any muscle pain. ENDOCRINE: Denies any polyuria or polydipsia. 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 eye injection with steroid on 04/04 for eye "stroke" , history of left-sided thoracentesis in January 2018, lungs tapped Past Anesthesia/Blood Transfusion Reactions: No Reported Reaction Additional Past Anesthesia/Blood Transfusion Reaction / Comment(s): Pt has received blood in past without reaction. Date of Last Stent Placement:: 2021 Past Psychological History: No Psychological Hx Reported Smoking Status: Current every day smoker Past Alcohol Use History: None Reported Past Drug Use History: None Reported - Past Family History Father Family Medical History: Cancer, CVA/TIA, Myocardial Infarction ([place]) Additional Family Medical History / Comment(s): Father had lymphoma. He had a CVA. Mother Family Medical History: CVA/TIA Additional Family Medical History / Comment(s): Mother had a CVA. Sister(s) Additional Family Medical History / Comment(s): Patient has 5 sisters one has from an aneurysm in the brain. 2 sisters have history of kidney stones. Patient has one brother that was shot as cause of , he was on the kidney transplant list. Patient has 6 children with no major medical problems. Medications and Allergies Home Medications Medication Instructions Recorded Confirmed Type Sevelamer [Renvela] 800 mg PO DIRECTED 06/16/19 01/30/23 History Pantoprazole [Protonix] 40 mg PO BID@0600,1800 04/08/20 01/30/23 History hydrALAZINE HCL [Apresoline] 100 mg PO TID@0600,1200,1800 04/08/20 01/30/23 History amLODIPine [Norvasc] 5 mg PO BID@0600,1800 05/30/20 01/30/23 History Calcium Acetate [PhosLo] 667 mg PO TID-W/MEALS 12/15/20 01/30/23 History Lactulose [Cephulac] 20 gm PO DAILY PRN 09/20/22 01/30/23 History levETIRAcetam [Keppra] 1,000 mg PO BID@0600,1800 09/20/22 01/30/23 History methocarbamoL [Robaxin-750] 750 mg PO BID PRN 09/20/22 01/30/23 History Aspirin 81 mg PO DAILY@1600 01/21/23 01/30/23 History Atorvastatin [Lipitor] 80 mg PO DAILY@1800 01/21/23 01/30/23 History Clopidogrel [Plavix] 75 mg PO DAILY@1600 01/21/23 01/30/23 History Doxazosin [Cardura] 4 mg PO BID 01/21/23 01/30/23 History Fluticasone Propion/Salmeterol 1 puff INHALATION RT-BID 01/21/23 01/30/23 History [Wixela 250-50 Inhub] Metoprolol Tartrate [Lopressor] 50 mg PO BID@0600,1800 01/21/23 01/30/23 History Nitroglycerin Sl Tabs [Nitrostat] 0.4 mg SUBLINGUAL Q5M PRN 01/21/23 01/30/23 History Budesonide-Formot 160-4.5 Mcg 1 puff INHALATION RT-BID 30 Days 01/23/23 01/30/23 Rx [Symbicort 160-4.5 Mcg Inhaler] #1 each Allergies Allergy/AdvReac Type Severity Reaction Status Date / Time baclofen AdvReac "too Verified 01/30/23 18:51 strong/sedated" hydromorphone [From Dilaudid] AdvReac Hallucinati Verified 01/30/23 18:51 ons morphine AdvReac Hallucinati Verified 01/30/23 18:51 ons tramadol AdvReac Hallucinati Verified 01/30/23 18:51 ons Physical Exam Vitals: Vital Signs Temp Pulse Pulse Resp BP Pulse Ox 01/31/23 06:00 60 12 166/82 99 01/31/23 05:30 55 L 8 L 165/76 98 01/31/23 05:13 56 L 18 165/76 99 01/31/23 05:00 56 L 10 L 187/93 100 01/31/23 04:30 58 L 11 L 198/102 98 01/31/23 04:19 56 L 16 203/97 99 01/31/23 04:00 59 L 13 194/99 99 01/31/23 03:30 57 L 9 L 194/104 99 01/31/23 03:00 59 L 16 188/107 01/31/23 02:30 64 26 H 187/110 01/31/23 02:00 62 10 L 190/94 92 L 01/31/23 01:10 58 L 10 L 186/97 01/31/23 01:00 59 L 12 182/99 01/31/23 00:59 58 L 16 182/99 95 01/31/23 00:07 59 L 16 193/91 100 01/30/23 23:19 66 17 200/109 96 01/30/23 22:22 98.0 F 62 17 215/100 99 01/30/23 19:48 97.9 F 65 17 196/99 94 L 01/30/23 18:28 66 18 197/95 95 01/30/23 18:21 63 01/30/23 18:20 64 19 190/96 95 01/30/23 17:45 193/94 01/30/23 17:28 97.3 F L 67 20 183/86 93 L Intake and Output 01/30/23 01/31/23 01/31/23 22:59 06:59 14:59 Other: Weight 65.317 kg GENERAL: The patient is alert and oriented x3, not in any acute distress. Well developed, well nourished. HEENT: Pupils are round and equally reacting to light. EOMI. No scleral icterus. No conjunctival pallor. Normocephalic, atraumatic. No pharyngeal erythema. No thyromegaly. CARDIOVASCULAR: S1 and S2 present. No murmurs, rubs, or gallops. PULMONARY: Chest is clear to auscultation, no wheezing or crackles. ABDOMEN: Soft, nontender, nondistended, normoactive bowel sounds. No palpable or ganomegaly. MUSCULOSKELETAL: No joint swelling or deformity. EXTREMITIES: No cyanosis, clubbing, or pedal edema. NEUROLOGICAL: Gross neurological examination did not reveal any focal deficits. SKIN: No rashes. no petechiae. Results CBC & Chem 7: 01/30/23 17:50 01/30/23 17:50 Labs: Abnormal Lab Results - Last 24 Hours (Table) 01/30/23 01/30/23 Range/Units 17:50 17:50 RBC 2.35 L (4.30-5.90) m/uL Hgb 7.9 L (13.0-17.5) gm/dL Hct 23.4 L (39.0-53.0) % Plt Count 95 L (150-450) k/uL Lymphocytes # 0.7 L (1.0-4.8) k/uL BUN 47 H (9-20) mg/dL Creatinine 10.50 H* (0.66-1.25) mg/dL Glucose 113 H (74-99) mg/dL Calcium 8.3 L (8.4-10.2) mg/dL Assessment and Plan Assessment: Chest pain, rule out cardiac causes Nicotine dependence Uncontrolled hypertension on the presentation End-stage renal disease on hemodialysis Combined acute on chronic systolic and diastolic, ejection fraction 45-50% Mild thrombocytopenia Hyperlipidemia Nicotine dependence History of seizure disorder History of nephrolithiasis Chronic atrial fibrillation History of coronary artery disease status post stent History of multiple CVA with no residual weakness History of GI bleed and peptic ulcer disease History of spinal stenosis secondary to degenerative disc disease and chronic cervical and back pain Plan: Continue with aspirin and Plavix Serial troponin Continue with antihypertensive medication: Norvasc, doxazosin wheezing and metoprolol, and oral hydralazine 100 mg 3 times a day. Add hydralazine when necessary Cardiology consult Nephrology consult Labs and medication were reviewed.. Continue same treatment. Continue with symptomatic treatment. Resume home medication. Monitor labs and vitals. DVT and GI prophylaxis. Further recommendations as per clinical course of the patient DVT prophylaxis: Subcutaneous heparin GI Prophylaxis: Ppi Prognosis is guarded
[2023-01-31] MEDS: SYMBICORT 160-4.5 MCG INHALER INHALATION SCH ×2 (07:55→21:21)
[2023-01-31] MEDS ORDERED: LACTULOSE 20 GM/30 ML CUP PO PRN (09:00)
[2023-01-31] MEDS ORDERED: methocarbamoL 750 MG TAB PO PRN (09:00)
[2023-01-31] MEDS ORDERED: ASPIRIN 325 MG TAB PO SCH (09:00)
[2023-01-31] MEDS: HEPARIN SODIUM,PORCINE/PF 5,000 UNIT/0.5 ML SYRINGE SQ SCH ×2 (09:15→20:12)
[2023-01-31] MEDS: SEVELAMER 800 MG TAB PO SCH ×4 (09:15→20:12)
[2023-01-31] MEDS: CALCIUM ACETATE 667 MG TAB PO SCH ×3 (09:15→17:06)
--- NOTE | 2023-01-31 12:24 | P.NPCON ---
History of Present Illness - Reason for Consult end stage renal disease - History of Present Illness Patient is a 52-year-old male with history of end-stage renal disease on hemodialysis on a Saturday schedule. Patient is admitted to the hospital with history of elevated blood pressure during treatment. According to the patient his blood pressure was as high as 250 for systolic and he was sent into the ER. Patient also complained of mild chest pain. Patient does have history of previous CVA. No complaints of fever chills nausea vomiting or abdominal pain. No changes in blood pressure medications per patient. He states that he has been taking all his meds Chest x-ray on admission showed evidence of CHF and pleural effusions. 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 eye injection with steroid on 04/04 for eye "stroke" , history of left-sided thoracentesis in January 2018, lungs tapped Past Anesthesia/Blood Transfusion Reactions: No Reported Reaction Additional Past Anesthesia/Blood Transfusion Reaction / Comment(s): Pt has received blood in past without reaction. Date of Last Stent Placement:: 2021 Past Psychological History: No Psychological Hx Reported Smoking Status: Current every day smoker Past Alcohol Use History: None Reported Past Drug Use History: None Reported - Past Family History Father Family Medical History: Cancer, CVA/TIA, Myocardial Infarction (ID) Additional Family Medical History / Comment(s): Father had lymphoma. He had a CVA. Mother Family Medical History: CVA/TIA Additional Family Medical History / Comment(s): Mother had a CVA. Sister(s) Additional Family Medical History / Comment(s): Patient has 5 sisters one has from an aneurysm in the brain. 2 sisters have history of kidney stones. Patient has one brother that was shot as cause of , he was on the kidney transplant list. Patient has 6 children with no major medical problems. Medications and Allergies Home Medications Medication Instructions Recorded Confirmed Type Sevelamer [Renvela] 800 mg PO DIRECTED 06/16/19 01/30/23 History Pantoprazole [Protonix] 40 mg PO BID@0600,1800 04/08/20 01/30/23 History hydrALAZINE HCL [Apresoline] 100 mg PO TID@0600,1200,1800 04/08/20 01/30/23 History amLODIPine [Norvasc] 5 mg PO BID@0600,1800 05/30/20 01/30/23 History Calcium Acetate [PhosLo] 667 mg PO TID-W/MEALS 12/15/20 01/30/23 History Lactulose [Cephulac] 20 gm PO DAILY PRN 09/20/22 01/30/23 History levETIRAcetam [Keppra] 1,000 mg PO BID@0600,1800 09/20/22 01/30/23 History methocarbamoL [Robaxin-750] 750 mg PO BID PRN 09/20/22 01/30/23 History Aspirin 81 mg PO DAILY@1600 01/21/23 01/30/23 History Atorvastatin [Lipitor] 80 mg PO DAILY@1800 01/21/23 01/30/23 History Clopidogrel [Plavix] 75 mg PO DAILY@1600 01/21/23 01/30/23 History Doxazosin [Cardura] 4 mg PO BID 01/21/23 01/30/23 History Fluticasone Propion/Salmeterol 1 puff INHALATION RT-BID 01/21/23 01/30/23 History [Wixela 250-50 Inhub] Metoprolol Tartrate [Lopressor] 50 mg PO BID@0600,1800 01/21/23 01/30/23 History Nitroglycerin Sl Tabs [Nitrostat] 0.4 mg SUBLINGUAL Q5M PRN 01/21/23 01/30/23 History Budesonide-Formot 160-4.5 Mcg 1 puff INHALATION RT-BID 30 Days 01/23/23 01/30/23 Rx [Symbicort 160-4.5 Mcg Inhaler] #1 each Allergies Allergy/AdvReac Type Severity Reaction Status Date / Time baclofen AdvReac "too Verified 01/30/23 18:51 strong/sedated" hydromorphone [From Dilaudid] AdvReac Hallucinati Verified 01/30/23 18:51 ons morphine AdvReac Hallucinati Verified 01/30/23 18:51 ons tramadol AdvReac Hallucinati Verified 01/30/23 18:51 ons Physical Exam Vitals: Vital Signs Temp Pulse Pulse Resp BP Pulse Ox 01/31/23 07:56 98 01/31/23 06:00 60 12 166/82 99 01/31/23 05:30 55 L 8 L 165/76 98 01/31/23 05:13 56 L 18 165/76 99 01/31/23 05:00 56 L 10 L 187/93 100 01/31/23 04:30 58 L 11 L 198/102 98 01/31/23 04:19 56 L 16 203/97 99 01/31/23 04:00 59 L 13 194/99 99 01/31/23 03:30 57 L 9 L 194/104 99 01/31/23 03:00 59 L 16 188/107 01/31/23 02:30 64 26 H 187/110 01/31/23 02:00 62 10 L 190/94 92 L 01/31/23 01:10 58 L 10 L 186/97 01/31/23 01:00 59 L 12 182/99 01/31/23 00:59 58 L 16 182/99 95 01/31/23 00:07 59 L 16 193/91 100 01/30/23 23:19 66 17 200/109 96 01/30/23 22:22 98.0 F 62 17 215/100 99 01/30/23 19:48 97.9 F 65 17 196/99 94 L 01/30/23 18:28 66 18 197/95 95 01/30/23 18:21 63 01/30/23 18:20 64 19 190/96 95 01/30/23 17:45 193/94 01/30/23 17:28 97.3 F L 67 20 183/86 93 L Intake and Output 01/30/23 01/31/23 01/31/23 22:59 06:59 14:59 Other: Weight 65.317 kg Patient is awake, comfortable, alert oriented 3 Examination of the heart S1 and S2 Examination of the lungs bilateral breath sounds are heard Abdomen is soft nontender Examination of the lower extremities shows trace edema bilaterally COMPO CASTER exam grossly intact Results - Lab Results Most recent lab results Calcium 8.3 mg/dL (8.4-10.2) L 01/30/23 17:50 Magnesium 2.0 mg/dL (1.6-2.3) 01/30/23 17:50 01/30/23 17:50 01/30/23 17:50 Assessment and Plan Assessment: 1. End-stage renal disease on hemodialysis on a Saturday schedule 2. Hypertensive urgency, partly volume sensitive 3. CK D mineral bone disorder 4. History of CVA 5. Volume overload Plan: Hemodialysis today with goal UF of about 2-2.5 L as tolerated. Patient is reluctant to increase the UF goal. Repeat hemodialysis in a.m. with goal UF of about 3 L Add lisinopril Continue home dose of phosphate binders
[2023-01-31] MEDS: CLOPIDOGREL 75 MG TAB PO SCH (15:36)
[2023-01-31] MEDS: ASPIRIN 81 MG PO SCH (15:36)
--- NOTE | 2023-01-31 17:04 | P.CRDCN ---
History of Present Illness History of present illness: HISTORY OF PRESENT ILLNESS: This is a 52-year-old male with a past medical history significant for hypertension, hyperlipidemia, end-stage renal disease on hemodialysis, COPD, current nicotine dependence smoking 1 pack per day, CVA, paroxysmal atrial fibrillation not on anticoagulation secondary to anemia and history of GI bleeding, seizure disorder, left lung empyema with left-sided VATS, and CAD s/p Impella protected PCI left main. Patient follows in the office with Dr. Mayorga. Patient has had 2 admissions in the last 2 weeks with increased blood pressure as well as some chest tightness. Initially was seen one week ago and underwent dialysis and eventual discharge home. Unfortunately he has been having more chest tightness and was given nitroglycerin in the emergency department with some improvement of the chest tightness. He denies any persistent chest pain since admission. His blood pressure has been elevated up into the 200 range. Troponins minimally elevated up to 0.03. He does have chronically elevated troponins. He is still smoking. He admits his blood pressure. This is somewhat better controlled in the 140s 160s however more recently 160s to 200s. He has been having complaint of palpitations however has been sinus rhythm on exam and on telemetry. REVIEW OF SYSTEMS: At the time of my exam: CONSTITUTIONAL: Denies fever or chills. HEENT: Denies blurred vision, vision changes, or eye pain. Denies hemoptysis CARDIOVASCULAR: +chest pain. Denies orthopnea. Denies PND. + palpitations RESPIRATORY: Denies shortness of breath. GASTROINTESTINAL: Denies abdominal pain. Denies nausea or vomiting. HEMATOLOGIC: Denies bleeding disorders. GENITOURINARY: Denies any blood in urine. SKIN: Denies pruitis. Denies rash. PHYSICAL EXAM: VITAL SIGNS: Reviewed. GENERAL: Well-developed in no acute distress. Skin color ashen lozano. HEENT: Head is normocephalic. Pupils are equal, round. Sclerae anicteric. Mucous membranes of the mouth are moist. Neck supple. No JVD or thyromegaly LUNGS: Respirations even and unlabored. Lungs with decreased air exchange and rhonchi noted bilaterally HEART: Regular rate and rhythm. S1 and S2 heard. Systolic murmur noted, +carotid bruit bilaterally ABDOMEN: Soft. Nondistended. Nontender. EXTREMITIES: Normal range of motion. No clubbing or cyanosis. Peripheral pulses intact. No lower extremity edema NEUROLOGIC: Awake and alert. Oriented x 3. ASSESSMENT: CAD s/p complex Impella protected PCI left main Hypertension, uncontrolled Chest pain, likely related to uncontrolled blood pressure End-stage renal disease on hemodialysis COPD Hypertension Hyperlipidemia History of CVA Paroxysmal atrial fibrillation not on anticoagulation secondary to anemia and history of GI bleeding History of seizure disorder History of left lung empyema with previous left-sided VATS Nicotine dependence, patient smokes 1 pack per day Carotid bruit PLAN: Patient's main complain of increased blood pressure and chest tightness with some of the chest tightness improved with nitro. We will add Imdur for blood pressure control as well as for antianginal purposes. Suspect chest pain mainly related to uncontrolled high blood pressure and attempt medical therapy. Mildly elevated troponins which have been chronically elevated. Continue with the remainder of blood pressure regimen. Check carotid ultrasound for completeness sake with bilateral bruits the possibility of bilateral stenosis causing some of his uncontrolled blood pressure. Additional consideration of renal artery stenosis however given end-stage renal disease likely continue medical therapy. Hopeful discharge 24 hours if remains stable and without chest pain. 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 eye injection with steroid on 04/04 for eye "stroke" , history of left-sided thoracentesis in January 2018, lungs tapped Past Anesthesia/Blood Transfusion Reactions: No Reported Reaction Additional Past Anesthesia/Blood Transfusion Reaction / Comment(s): Pt has received blood in past without reaction. Date of Last Stent Placement:: 2021 Past Psychological History: No Psychological Hx Reported Additional Psychological History / Comment(s): Pt resides with his spouse. He drives rarely. His spouse takes him to [email or web address] or his sister does. He is otherwise independent. He has O2 and a nebulizer Smoking Status: Current every day smoker Past Alcohol Use History: None Reported Additional Past Alcohol Use History / Comment(s): Patient was a smoker one pack per day since he was 19-20 years of age. Past Drug Use History: None Reported - Past Family History Father Family Medical History: Cancer, CVA/TIA, Myocardial Infarction ([place]) Additional Family Medical History / Comment(s): Father had lymphoma. He had a CVA. Mother Family Medical History: CVA/TIA Additional Family Medical History / Comment(s): Mother had a CVA. Sister(s) Additional Family Medical History / Comment(s): Patient has 5 sisters one has from an aneurysm in the brain. 2 sisters have history of kidney stones. Patient has one brother that was shot as cause of , he was on the kidney tr ansplant list. Patient has 6 children with no major medical problems. Medications and Allergies Home Medications Medication Instructions Recorded Confirmed Type Sevelamer [Renvela] 800 mg PO DIRECTED 06/16/19 01/30/23 History Pantoprazole [Protonix] 40 mg PO BID@0600,1800 04/08/20 01/30/23 History hydrALAZINE HCL [Apresoline] 100 mg PO TID@0600,1200,1800 04/08/20 01/30/23 History amLODIPine [Norvasc] 5 mg PO BID@0600,1800 05/30/20 01/30/23 History Calcium Acetate [PhosLo] 667 mg PO TID-W/MEALS 12/15/20 01/30/23 History Lactulose [Cephulac] 20 gm PO DAILY PRN 09/20/22 01/30/23 History levETIRAcetam [Keppra] 1,000 mg PO BID@0600,1800 09/20/22 01/30/23 History methocarbamoL [Robaxin-750] 750 mg PO BID PRN 09/20/22 01/30/23 History Aspirin 81 mg PO DAILY@1600 01/21/23 01/30/23 History Atorvastatin [Lipitor] 80 mg PO DAILY@1800 01/21/23 01/30/23 History Clopidogrel [Plavix] 75 mg PO DAILY@1600 01/21/23 01/30/23 History Doxazosin [Cardura] 4 mg PO BID 01/21/23 01/30/23 History Fluticasone Propion/Salmeterol 1 puff INHALATION RT-BID 01/21/23 01/30/23 History [Wixela 250-50 Inhub] Metoprolol Tartrate [Lopressor] 50 mg PO BID@0600,1800 01/21/23 01/30/23 History Nitroglycerin Sl Tabs [Nitrostat] 0.4 mg SUBLINGUAL Q5M PRN 01/21/23 01/30/23 History Budesonide-Formot 160-4.5 Mcg 1 puff INHALATION RT-BID 30 Days 01/23/23 01/30/23 Rx [Symbicort 160-4.5 Mcg Inhaler] #1 each Allergies Allergy/AdvReac Type Severity Reaction Status Date / Time baclofen AdvReac "too Verified 01/30/23 18:51 strong/sedated" hydromorphone [From Dilaudid] AdvReac Hallucinati Verified 01/30/23 18:51 ons morphine AdvReac Hallucinati Verified 01/30/23 18:51 ons tramadol AdvReac Hallucinati Verified 01/30/23 18:51 ons Physical Exam Vitals: Vital Signs Temp Pulse Pulse Resp BP BP Pulse Ox 01/31/23 15:34 98.1 F 66 18 164/67 93 L 01/31/23 14:34 97.6 F 64 16 201/96 01/31/23 13:48 63 01/31/23 13:19 97.7 F 63 16 172/89 94 L 01/31/23 12:00 98.1 F 64 18 173/93 01/31/23 07:56 98 01/31/23 06:00 60 12 166/82 99 01/31/23 05:30 55 L 8 L 165/76 98 01/31/23 05:13 56 L 18 165/76 99 01/31/23 05:00 56 L 10 L 187/93 100 01/31/23 04:30 58 L 11 L 198/102 98 01/31/23 04:19 56 L 16 203/97 99 01/31/23 04:00 59 L 13 194/99 99 01/31/23 03:30 57 L 9 L 194/104 99 01/31/23 03:00 59 L 16 188/107 01/31/23 02:30 64 26 H 187/110 01/31/23 02:00 62 10 L 190/94 92 L 01/31/23 01:10 58 L 10 L 186/97 01/31/23 01:00 59 L 12 182/99 01/31/23 00:59 58 L 16 182/99 95 01/31/23 00:07 59 L 16 193/91 100 01/30/23 23:19 66 17 200/109 96 01/30/23 22:22 98.0 F 62 17 215/100 99 01/30/23 19:48 97.9 F 65 17 196/99 94 L 01/30/23 18:28 66 18 197/95 95 01/30/23 18:21 63 01/30/23 18:20 64 19 190/96 95 01/30/23 17:45 193/94 01/30/23 17:28 97.3 F L 67 20 183/86 93 L Intake and Output 01/31/23 01/31/23 01/31/23 06:59 14:59 22:59 Intake Total 400 Output Total 978 Balance -578 Intake: Oral 0 Hemodialysis 400 Output: Hemodialysis 978 Other: Voiding Method Toilet Urinal Weight 65.317 kg Results 01/30/23 17:50 01/30/23 17:50 Cardiac Enzymes 01/30/23 01/30/23 01/30/23 Range/Units 17:50 17:50 17:50 WBC 4.8 (3.8-10.6) k/uL RBC 2.35 L (4.30-5.90) m/uL Hgb 7.9 L (13.0-17.5) gm/dL Hct 23.4 L (39.0-53.0) % MCV 99.5 (80.0-100.0) fL MCH 33.7 (25.0-35.0) pg MCHC 33.9 (31.0-37.0) g/dL RDW 15.1 (11.5-15.5) % Plt Count 95 L (150-450) k/uL MPV 7.6 Neutrophils % 75 % Lymphocytes % 14 % Monocytes % 6 % Eosinophils % 2 % Basophils % 1 % Neutrophils # 3.6 (1.3-7.7) k/uL Lymphocytes # 0.7 L (1.0-4.8) k/uL Monocytes # 0.3 (0-1.0) k/uL Eosinophils # 0.1 (0-0.7) k/uL Basophils # 0.1 (0-0.2) k/uL Manual Slide Review Performed Poikilocytosis Slight Macrocytosis Slight PT 11.0 (9.0-12.0) sec INR 1.1 (<1.2) APTT 25.4 (22.0-30.0) sec Sodium 138 (137-145) mmol/L Potassium 4.0 (3.5-5.1) mmol/L Chloride 99 (98-107) mmol/L Carbon Dioxide 27 (22-30) mmol/L Anion Gap 12 mmol/L BUN 47 H (9-20) mg/dL Creatinine 10.50 H* (0.66-1.25) mg/dL Est GFR (CKD-EPI)AfAm 6 (>60 ml/min/1.73 sqM) Est GFR (CKD-EPI)NonAf 5 (>60 ml/min/1.73 sqM) Glucose 113 H (74-99) mg/dL Calcium 8.3 L (8.4-10.2) mg/dL Magnesium 2.0 (1.6-2.3) mg/dL Total Bilirubin 0.9 (0.2-1.3) mg/dL AST 23 (17-59) U/L ALT 15 (4-49) U/L Alkaline Phosphatase 68 (38-126) U/L Troponin I (0.000-0.034) ng/mL NT-Pro-B Natriuret Pep pg/mL Total Protein 6.3 (6.3-8.2) g/dL Albumin 3.9 (3.5-5.0) g/dL Triglycerides (0.00-149.00) mg/dL Cholesterol (0.00-200.00) mg/dL LDL Cholesterol, Calc (0.0-131.0) mg/dL VLDL Cholesterol, Calc (5.00-40.00) mg/dL HDL Cholesterol (40.00-60.00) mg/dL Cholesterol/HDL Ratio Ratio Procalcitonin (0.02-0.09) ng/mL 01/30/23 01/30/23 01/30/23 Range/Units 17:50 17:50 20:28 WBC (3.8-10.6) k/uL RBC (4.30-5.90) m/uL Hgb (13.0-17.5) gm/dL Hct (39.0-53.0) % MCV (80.0-100.0) fL MCH (25.0-35.0) pg MCHC (31.0-37.0) g/dL RDW (11.5-15.5) % Plt Count (150-450) k/uL MPV Neutrophils % % Lymphocytes % % Monocytes % % Eosinophils % % Basophils % % Neutrophils # (1.3-7.7) k/uL Lymphocytes # (1.0-4.8) k/uL Monocytes # (0-1.0) k/uL Eosinophils # (0-0.7) k/uL Basophils # (0-0.2) k/uL Manual Slide Review Poikilocytosis Macrocytosis PT (9.0-12.0) sec INR (<1.2) APTT (22.0-30.0) sec Sodium (137-145) mmol/L Potassium (3.5-5.1) mmol/L Chloride (98-107) mmol/L Carbon Dioxide (22-30) mmol/L Anion Gap mmol/L BUN (9-20) mg/dL Creatinine (0.66-1.25) mg/dL Est GFR (CKD-EPI)AfAm (>60 ml/min/1.73 sqM) Est GFR (CKD-EPI)NonAf (>60 ml/min/1.73 sqM) Glucose (74-99) mg/dL Calcium (8.4-10.2) mg/dL Magnesium (1.6-2.3) mg/dL Total Bilirubin (0.2-1.3) mg/dL AST (17-59) U/L ALT (4-49) U/L Alkaline Phosphatase (38-126) U/L Troponin I 0.031 0.030 (0.000-0.034) ng/mL NT-Pro-B Natriuret Pep 38960 pg/mL Total Protein (6.3-8.2) g/dL Albumin (3.5-5.0) g/dL Triglycerides (0.00-149.00) mg/dL Cholesterol (0.00-200.00) mg/dL LDL Cholesterol, Calc (0.0-131.0) mg/dL VLDL Cholesterol, Calc (5.00-40.00) mg/dL HDL Cholesterol (40.00-60.00) mg/dL Cholesterol/HDL Ratio Ratio Procalcitonin (0.02-0.09) ng/mL 01/30/23 01/31/23 01/31/23 Range/Units 22:56 09:13 09:13 WBC (3.8-10.6) k/uL RBC (4.30-5.90) m/uL Hgb (13.0-17.5) gm/dL Hct (39.0-53.0) % MCV (80.0-100.0) fL MCH (25.0-35.0) pg MCHC (31.0-37.0) g/dL RDW (11.5-15.5) % Plt Count (150-450) k/uL MPV Neutrophils % % Lymphocytes % % Monocytes % % Eosinophils % % Basophils % % Neutrophils # (1.3-7.7) k/uL Lymphocytes # (1.0-4.8) k/uL Monocytes # (0-1.0) k/uL Eosinophils # (0-0.7) k/uL Basophils # (0-0.2) k/uL Manual Slide Review Poikilocytosis Macrocytosis PT (9.0-12.0) sec INR (<1.2) APTT (22.0-30.0) sec Sodium (137-145) mmol/L Potassium (3.5-5.1) mmol/L Chloride (98-107) mmol/L Carbon Dioxide (22-30) mmol/L Anion Gap mmol/L BUN (9-20) mg/dL Creatinine (0.66-1.25) mg/dL Est GFR (CKD-EPI)AfAm (>60 ml/min/1.73 sqM) Est GFR (CKD-EPI)NonAf (>60 ml/min/1.73 sqM) Glucose (74-99) mg/dL Calcium (8.4-10.2) mg/dL Magnesium (1.6-2.3) mg/dL Total Bilirubin (0.2-1.3) mg/dL AST (17-59) U/L ALT (4-49) U/L Alkaline Phosphatase (38-126) U/L Troponin I 0.029 (0.000-0.034) ng/mL NT-Pro-B Natriuret Pep pg/mL Total Protein (6.3-8.2) g/dL Albumin (3.5-5.0) g/dL Triglycerides 108.00 (0.00-149.00) mg/dL Cholesterol 99.00 (0.00-200.00) mg/dL LDL Cholesterol, Calc 42.0 (0.0-131.0) mg/dL VLDL Cholesterol, Calc 21.60 (5.00-40.00) mg/dL HDL Cholesterol 35.30 L (40.00-60.00) mg/dL Cholesterol/HDL Ratio 2.80 Ratio Procalcitonin 0.26 H (0.02-0.09) ng/mL 01/31/23 Range/Units 09:13 WBC (3.8-10.6) k/uL RBC (4.30-5.90) m/uL Hgb (13.0-17.5) gm/dL Hct (39.0-53.0) % MCV (80.0-100.0) fL MCH (25.0-35.0) pg MCHC (31.0-37.0) g/dL RDW (11.5-15.5) % Plt Count (150-450) k/uL MPV Neutrophils % % Lymphocytes % % Monocytes % % Eosinophils % % Basophils % % Neutrophils # (1.3-7.7) k/uL Lymphocytes # (1.0-4.8) k/uL Monocytes # (0-1.0) k/uL Eosinophils # (0-0.7) k/uL Basophils # (0-0.2) k/uL Manual Slide Review Poikilocytosis Macrocytosis PT (9.0-12.0) sec INR (<1.2) APTT (22.0-30.0) sec Sodium (137-145) mmol/L Potassium (3.5-5.1) mmol/L Chloride (98-107) mmol/L Carbon Dioxide (22-30) mmol/L Anion Gap mmol/L BUN (9-20) mg/dL Creatinine (0.66-1.25) mg/dL Est GFR (CKD-EPI)AfAm (>60 ml/min/1.73 sqM) Est GFR (CKD-EPI)NonAf (>60 ml/min/1.73 sqM) Glucose (74-99) mg/dL Calcium (8.4-10.2) mg/dL Magnesium (1.6-2.3) mg/dL Total Bilirubin (0.2-1.3) mg/dL AST (17-59) U/L ALT (4-49) U/L Alkaline Phosphatase (38-126) U/L Troponin I 0.036 H* (0.000-0.034) ng/mL NT-Pro-B Natriuret Pep pg/mL Total Protein (6.3-8.2) g/dL Albumin (3.5-5.0) g/dL Triglycerides (0.00-149.00) mg/dL Cholesterol (0.00-200.00) mg/dL LDL Cholesterol, Calc (0.0-131.0) mg/dL VLDL Cholesterol, Calc (5.00-40.00) mg/dL HDL Cholesterol (40.00-60.00) mg/dL Cholesterol/HDL Ratio Ratio Procalcitonin (0.02-0.09) ng/mL Coagulation 01/30/23 Range/Units 17:50 PT 11.0 (9.0-12.0) sec APTT 25.4 (22.0-30.0) sec Lipids 01/31/23 Range/Units 09:13 Triglycerides 108.00 (0.00-149.00) mg/dL Cholesterol 99.00 (0.00-200.00) mg/dL HDL Cholesterol 35.30 L (40.00-60.00) mg/dL Cholesterol/HDL Ratio 2.80 Ratio CBC 01/30/23 Range/Units 17:50 WBC 4.8 (3.8-10.6) k/uL RBC 2.35 L (4.30-5.90) m/uL Hgb 7.9 L (13.0-17.5) gm/dL Hct 23.4 L (39.0-53.0) % Plt Count 95 L (150-450) k/uL Comprehensive Metabolic Panel 01/30/23 Range/Units 17:50 Sodium 138 (137-145) mmol/L Potassium 4.0 (3.5-5.1) mmol/L Chloride 99 (98-107) mmol/L Carbon Dioxide 27 (22-30) mmol/L BUN 47 H (9-20) mg/dL Creatinine 10.50 H* (0.66-1.25) mg/dL Glucose 113 H (74-99) mg/dL Calcium 8.3 L (8.4-10.2) mg/dL AST 23 (17-59) U/L ALT 15 (4-49) U/L Alkaline Phosphatase 68 (38-126) U/L Total Protein 6.3 (6.3-8.2) g/dL Albumin 3.9 (3.5-5.0) g/dL Current Medications Generic Name Dose Route Start Last Admin Trade Name Freq PRN Reason Stop Dose Admin Amlodipine Besylate 5 mg 01/30/23 22:35 01/31/23 06:17 Amlodipine 5 Mg Tab PO 5 mg BID@0600,1800 [facility] Administration Aspirin 81 mg 01/31/23 16:00 01/31/23 15:36 Aspirin 81 Mg PO 81 mg DAILY@1600 KRISTY Administration Atorvastatin Calcium 80 mg 01/30/23 22:35 01/30/23 23:13 Atorvastatin 80 Mg Tab PO 80 mg DAILY@1800 [facility] Administration Budesonide/Formoterol Fumarate 1 puff 01/31/23 08:00 01/31/23 07:55 Symbicort 160-4.5 Mcg Inhaler INHALATION Not Given RT-BID [facility] Calcium Acetate 667 mg 01/30/23 22:35 01/31/23 12:36 Calcium Acetate 667 Mg Tab PO 667 mg TID-W/MEALS KRISTY Administration Clopidogrel Bisulfate 75 mg 01/31/23 16:00 01/31/23 15:36 Clopidogrel 75 Mg Tab PO 75 mg DAILY@1600 [facility] Administration Doxazosin Mesylate 4 mg 01/31/23 22:35 Doxazosin 4 Mg Tab PO BID [facility]ST[facility] Heparin Sodium (Porcine) 5,000 unit 01/31/23 09:00 01/31/23 09:15 Heparin Sodium,Porcine/Pf 5,000 Unit/0.5 Ml Syringe SQ 5,000 unit Q12HR [facility]ST[facility] Administration Hydralazine HCl 100 mg 01/31/23 06:00 01/31/23 12:36 Hydralazine Hcl 50 Mg Tab PO 100 mg TID@0600,1200,1800 [facility] Administration Hydralazine HCl 10 mg 01/31/23 04:01 01/31/23 04:18 Hydralazine Hcl 20 Mg/Ml 1 Ml Vial IVP 10 mg Q6HR PRN Administration Blood Pressure - High Isosorbide Mononitrate 30 mg 01/31/23 17:00 Isosorbide Mononitrate Er 30 Mg Tab.Er.24h PO DAILY [facility] Lactulose 20 gm 01/31/23 09:00 Lactulose 20 Gm/30 Ml Cup PO DAILY PRN Constipation Levetiracetam 1,000 mg 01/30/23 22:35 01/31/23 06:17 Levetiracetam 500 Mg Tab PO 1,000 mg BID@0600,1800 [facility] Administration Methocarbamol 750 mg 01/31/23 09:00 Methocarbamol 750 Mg Tab PO BID PRN Pain Metoprolol Tartrate 50 mg 01/30/23 22:35 01/31/23 06:18 Metoprolol Tartrate 50 Mg Tab PO 50 mg BID@0600,1800 [facility] Administration Nitroglycerin 1 inch 01/31/23 00:00 01/31/23 12:36 Nitroglycerin Oint 1 Inch/Gm Packet TOPICAL 1 inch Q6HR [facility] Administration Nitroglycerin 0.4 mg 01/30/23 22:35 Nitroglycerin Sl Tabs 0.4 Mg Tab SUBLINGUAL Q5M PRN Chest Pain Pantoprazole Sodium 40 mg 01/30/23 22:35 01/31/23 06:18 Pantoprazole 40 Mg Tablet PO 40 mg BID@0600,1800 [facility] Administration Sevelamer Carbonate 800 mg 01/31/23 07:30 01/31/23 12:36 Sevelamer 800 Mg Tab PO 800 mg ACHS [facility] Administration Intake and Output 01/31/23 01/31/23 01/31/23 06:59 14:59 22:59 Intake Total 400 Output Total 978 Balance -578 Intake: Oral 0 Hemodialysis 400 Output: Hemodialysis 978 Other: Voiding Method Toilet Urinal Weight 65.317 kg Patient Weight 02/01/23 06:59 Weight 65.317 kg 01/30/23 17:50 01/30/23 17:50
[2023-01-31] MEDS: lisinopriL 10 MG TAB PO SCH (17:05)
[2023-01-31] MEDS: ISOSORBIDE MONONITRATE ER 30 MG TAB.ER.24H PO SCH (17:05)
[2023-01-31] MEDS: ATORVASTATIN 80 MG TAB PO SCH (17:06)
--- NOTE | 2023-01-31 19:29 | US ---
EXAMINATION TYPE: US carotid duplex BILAT DATE OF EXAM: 01/31/2023 COMPARISON: 07/07/17 CLINICAL HISTORY: re: bilateral carotid bruit. Carotid bruit TECHNIQUE: Carotid duplex ultrasound examination. Indirect Doppler criteria was utilized. FINDINGS: EXAM MEASUREMENTS: RIGHT: Peak Systolic Velocity (PSV) cm/sec ----- Right CCA: 84.2 ----- Right ICA: 98.4 ----- Right ECA: 80.6 ICA/CCA ratio: 1.2 RIGHT: End Diastole cm/sec ----- Right CCA: 18.8 ----- Right ICA: 24.1 ----- Right ECA: 14.4 LEFT: Peak Systolic Velocity (PSV) cm/sec ----- Left CCA: 87.9 ----- Left ICA: 172.5 ----- Left ECA: 122.9 ICA/CCA ratio: 2.0 LEFT: End Diastole cm/sec ----- Left CCA: 23.2 ----- Left ICA: 55.5 ----- Left ECA: 13.7 VERTEBRALS (direction of flow): Right Vertebral: Antegrade Left Vertebral: Antegrade Rhythm: Normal [facility] MICROBIOLOGIST NOTES: Moderate amount of plaque visualized in bilateral distal CCA's and Bulbs. Left dis kandis ICA velocity appears elevated with 172.5cm/s. IMPRESSION: 1. 50-69% stenosis of the left carotid bifurcation. 2. Less than 50% stenosis of the carotid bifurcation. Criteria for Assigning % of Stenosis / Diameter reduction (Estimation based on the indirect measurements of the internal carotid artery velocities (ICA PSV). 1. Normal (no stenosis)=ICA PSV < 125 cm/s: ratio < 2.0: ICA EDV<40 cm/s. 2. Less than 50% stenosis=ICA PSV < 125 cm/s: ratio < 2.0: ICA EDV<40 cm/s. 3. 50 to 69% stenosis=ICA PSV of 125 to 230 cm/s: ration 2.0 ? 4.0: ICA EDV 40-100 cm/s. 4. Greater than 70% stenosis to near occlusion= ICA PSV > 230 cm/s: ratio > 4.0: ICA EDV > 100 cm/s. 5. Near occlusion= ICA PSV velocities may be low or undetectable: variable ratio and ICA EDV. 6. Total occlusion=unable to detect flow.
[2023-01-31] MEDS: DOXAZOSIN 4 MG TAB PO SCH (21:28)
[2023-02-01] MEDS: levETIRAcetam 500 MG TAB PO SCH ×2 (05:33→17:24)
[2023-02-01] MEDS: CALCIUM ACETATE 667 MG TAB PO SCH ×3 (05:33→17:24)
[2023-02-01] MEDS: PANTOPRAZOLE 40 MG TABLET PO SCH ×2 (05:33→17:24)
[2023-02-01] MEDS: METOPROLOL TARTRATE 50 MG TAB PO SCH ×2 (05:33→17:24)
[2023-02-01] MEDS: SEVELAMER 800 MG TAB PO SCH ×4 (05:33→19:52)
[2023-02-01] MEDS: hydrALAZINE HCL 50 MG TAB PO SCH ×4 (05:33→18:15)
[2023-02-01] MEDS: amLODIPine 5 MG TAB PO SCH ×2 (05:33→17:24)
[2023-02-01] MEDS: SYMBICORT 160-4.5 MCG INHALER INHALATION SCH (08:09)
[2023-02-01] MEDS: DOXAZOSIN 4 MG TAB PO SCH ×2 (08:17→19:52)
[2023-02-01] MEDS: ISOSORBIDE MONONITRATE ER 30 MG TAB.ER.24H PO SCH (08:17)
[2023-02-01] MEDS: HEPARIN SODIUM,PORCINE/PF 5,000 UNIT/0.5 ML SYRINGE SQ SCH ×3 (08:17→19:53)
[2023-02-01] MEDS: lisinopriL 10 MG TAB PO SCH (08:17)
--- NOTE | 2023-02-01 09:03 | P.PN ---
Subjective HISTORY OF PRESENT ILLNESS: This is a 52-year-old male with a past medical history significant for hypertension, hyperlipidemia, end-stage renal disease on hemodialysis, COPD, current nicotine dependence smoking 1 pack per day, CVA, paroxysmal atrial fibrillation not on anticoagulation secondary to anemia and history of GI bleeding, seizure disorder, left lung empyema with left-sided VATS, and CAD s/p Impella protected PCI left main. Patient follows in the office with Dr. Mayorga. Patient has had 2 admissions in the last 2 weeks with increased blood pressure as well as some chest tightness. Initially was seen one week ago and underwent dialysis and eventual discharge home. Unfortunately he has been having more chest tightness and was given nitroglycerin in the emergency department with some improvement of the chest tightness. He denies any persistent chest pain since admission. His blood pressure has been elevated up into the 200 range. Troponins minimally elevated up to 0.03. He does have chronically elevated troponins. He is still smoking. He admits his blood pressure. This is somewhat better controlled in the 140s 160s however more recently 160s to 200s. He has been having complaint of palpitations however has been sinus rhythm on exam and on telemetry. 02/01 Patient seen and examined. Patient denies any chest pain or pressure. He was started on Imdur with mild improvement in blood pressure mainly in the 160s and 170s. Scheduled for dialysis today. PHYSICAL EXAM: VITAL SIGNS: Reviewed. GENERAL: Well-developed in no acute distress. Skin color ashen lozano. HEENT: Head is normocephalic. Pupils are equal, round. Sclerae anicteric. Mucous membranes of the mouth are moist. Neck supple. No JVD or thyromegaly LUNGS: Respirations even and unlabored. Lungs with decreased air exchange and rhonchi noted bilaterally HEART: Regular rate and rhythm. S1 and S2 heard. Systolic murmur noted, +carotid bruit bilaterally ABDOMEN: Soft. Nondistended. Nontender. EXTREMITIES: Normal range of motion. No clubbing or cyanosis. Peripheral pulses intact. No lower extremity edema NEUROLOGIC: Awake and alert. Oriented x 3. ASSESSMENT: CAD s/p complex Impella protected PCI left main Hypertension, uncontrolled Chest pain, likely related to uncontrolled blood pressure End-stage renal disease on hemodialysis COPD Hypertension Hyperlipidemia History of CVA Paroxysmal atrial fibrillation not on anticoagulation secondary to anemia and history of GI bleeding History of seizure disorder History of left lung empyema with previous left-sided VATS Nicotine dependence, patient smokes 1 pack per day Carotid bruit PLAN: Patient's chest tightness likely mainly related to uncontrolled high blood pressure and has somewhat improved on the Imdur. Continue with medical therapy at this time. Carotid ultrasound not showing any significant disease. Appears stable for discharge home on Imdur with outpatient follow-up from a cardiology standpoint. Objective - Vital Signs Vital signs: Vital Signs Temp 97.8 F 02/01/23 08:00 Pulse 67 02/01/23 08:00 Resp 18 02/01/23 08:00 BP 169/80 02/01/23 08:00 Pulse Ox 95 02/01/23 08:09 FiO2 Intake & Output 01/31/23 02/01/23 02/01/23 18:59 06:59 18:59 Intake Total 400 120 0 Output Total 978 Balance -578 120 0 Weight 65.317 kg Intake: Oral 0 120 0 Hemodialysis 400 Output: Hemodialysis 978 Other: Voiding Method Toilet Toilet Urinal Urinal # Voids 1 - Labs CBC & Chem 7: 01/30/23 17:50 01/30/23 17:50 Labs: Abnormal Lab Results - Last 24 Hours (Table) 01/31/23 01/31/23 01/31/23 Range/Units 09:13 09:13 09:13 Troponin I 0.036 H* (0.000-0.034) ng/mL HDL Cholesterol 35.30 L (40.00-60.00) mg/dL Procalcitonin 0.26 H (0.02-0.09) ng/mL
--- NOTE | 2023-02-01 10:30 | P.PN ---
Subjective Patient is seen for follow-up for end-stage renal disease. Patient was admitted to the hospital with uncontrolled hypertension. Blood pressure has improved. Patient was dialyzed yesterday with UF of about 1 L as patient refused increased ultrafiltration. He was also started on lisinopril and blood pressure has improved Patient is scheduled for hemodialysis today No complaints today Objective - Vital Signs Vital signs: Vital Signs Temp 97.8 F 02/01/23 08:00 Pulse 67 02/01/23 08:00 Resp 18 02/01/23 08:00 BP 169/80 02/01/23 08:00 Pulse Ox 95 02/01/23 08:09 FiO2 Intake & Output 01/31/23 02/01/23 02/01/23 18:59 06:59 18:59 Intake Total 400 120 0 Output Total 978 Balance -578 120 0 Weight 65.317 kg Intake: Oral 0 120 0 Hemodialysis 400 Output: Hemodialysis 978 Other: Voiding Method Toilet Toilet Toilet Urinal Urinal Urinal # Voids 1 - Exam Patient is awake, comfortable, in no acute distress Examination of the heart S1 and S2 Examination of the lungs bilateral breath sounds are heard Abdomen is soft nontender Examination of lower extremities shows no significant edema FITNESS MANAGER exam grossly intact - Labs CBC & Chem 7: 01/30/23 17:50 01/30/23 17:50 Labs: Abnormal Lab Results - Last 24 Hours (Table) 01/31/23 01/31/23 Range/Units 09:13 09:13 HDL Cholesterol 35.30 L (40.00-60.00) mg/dL Procalcitonin 0.26 H (0.02-0.09) ng/mL Assessment and Plan Assessment: 1. End-stage renal disease on hemodialysis on a Saturday schedule 2. Hypertensive urgency, partly volume sensitive 3. CK D mineral bone disorder 4. History of CVA 5. Volume overload Plan: Repeat hemodialysis today with goal UF 1-2 L Continue with lisinopril Continue home dose of phosphate binders
[2023-02-01] MEDS: CLOPIDOGREL 75 MG TAB PO SCH (16:05)
[2023-02-01] MEDS: ASPIRIN 81 MG PO SCH (16:05)
[2023-02-01 16:09] VITALS: RESP 18
[2023-02-01] MEDS: ATORVASTATIN 80 MG TAB PO SCH (17:24)
[2023-02-01 20:19] VITALS: BP 180/84; PULSE 67; TEMP 98
== END 2023-02-01 20:10 | disposition home or self-care (01) | DRG 291 ==
LOC: EC 16:40 → 3SCARD 20:18
PROVIDERS: ADMIT Internal Medicine; ATTEND Internal Medicine
PROC: 5A1D70Z Performance of Urinary Filtration, Intermittent, Less than 6 Hours Per Day (ICD-10-PCS; principal; 2023-01-31)
DX: I13.2 Hypertensive heart and chronic kidney disease with heart failure and with stage 5 chronic kidney disease, or end stage renal disease (principal); I50.43 Acute on chronic combined systolic (congestive) and diastolic (congestive) heart failure; N18.6 End stage renal disease; I48.20 Chronic atrial fibrillation, unspecified; I25.110 Atherosclerotic heart disease of native coronary artery with unstable angina pectoris; I48.0 Paroxysmal atrial fibrillation; I16.0 Hypertensive urgency; Z99.2 Dependence on renal dialysis; D69.6 Thrombocytopenia, unspecified; D64.9 Anemia, unspecified; E11.22 Type 2 diabetes mellitus with diabetic chronic kidney disease; E78.5 Hyperlipidemia, unspecified; M89.8X9 Other specified disorders of bone, unspecified site; Z79.02 Long term (current) use of antithrombotics/antiplatelets; Z79.82 Long term (current) use of aspirin; Z79.899 Other long term (current) drug therapy; Z79.51 Long term (current) use of inhaled steroids; Z86.73 Personal history of transient ischemic attack (TIA), and cerebral infarction without residual deficits; Z87.11 Personal history of peptic ulcer disease; Z87.442 Personal history of urinary calculi; Z95.5 Presence of coronary angioplasty implant and graft; Z88.5 Allergy status to narcotic agent; Z87.19 Personal history of other diseases of the digestive system
CPT/HCPCS: 36415; 71046; 80053; 80061; 83735; 83880; 84145; 84484; 85025; 85610; 85730; 90935; 93005; 93880; 94760; 96372; 96374; 99285

== ENCOUNTER 2023-02-20 20:51 | Observation (INO) | payer MEDICARE, BC ==
--- NOTE | 2023-02-20 22:17 | ED ---
General Adult HPI - General Chief complaint: Recheck/Abnormal Lab/Rx Stated complaint: Abnormal Labs Time Seen by Provider: 02/20/23 21:36 Source: patient Mode of arrival: ambulatory - History of Present Illness Initial comments: Dictation was produced using [employer] dictation software. please excuse any grammatical, word or spelling errors. Chief Complaint: 52-year-old male presents with abnormal outpatient lab History of Present Illness: Patient is 52-year-old male he gets dialysis Saturday. He had blood drawn at dialysis center. He was called by the table runner told to come to the ER for low hemoglobin. Told that his hemoglobin was 6.2. Patient has history of GI bleed. Patient states otherwise he feels fine. He got full dialysis today. States that his hemoglobin is normally in the mid sevens. Denies any black or bloody stools. Patient has no complaints at the bedside. The ROS documented in this emergency department record has been reviewed and confirmed by me. Those systems with pertinent positive or negative responses have been documented in the HPI. All other systems are other negative and/or noncontributory. PHYSICAL EXAM: General Impression: Alert and oriented x3, not in acute distress, pale HEENT: Normocephalic atraumatic, extra-ocular movements intact, pupils equal and reactive to light bilaterally, mucous membranes moist. Cardiovascular: Heart regular rate and rhythm Chest: Able to complete full sentences, no retractions, no tachypnea Abdomen: abdomen soft, non-tender, non-distended, no organomegaly Musculoskeletal: Pulses present and equal in all extremities, no peripheral edema Motor: no focal deficits noted Neurological: CN II-XII grossly intact, no focal motor or sensory deficits noted Skin: Forearm dialysis site with palpable thrill and audible bruit Psych: Normal affect and mood Rectal exam: No gross blood ED course: 52-year-old male multiple comorbidities presents to the [facility] outpatient lab. Vital signs upon arrival are within acceptable limits. Patient is in no acute distress. He states he feels at baseline currently. Patient is high risk for acute decompensation given his significant listed comorbidities. Nursing notes and chart review was performed EKG interpreted by me: Ventricular rate 70, sinus rhythm,. 155, QRS 96, QTC 468. No NC prolongation, no QTC prolongation, no ST or T-wave changes noted. Overall, this EKG is unremarkable Was pt. sent in by a medical professional or institution (JACKIE Wise, NETBACKUP ADMINISTRATOR, urgent care, hospital, or custodial...) When possible be specific @ -Instructed to come to the emergency department by table runner Did you speak to anyone other than the patient for history (EMS, parent, family, police, friend...)? What history was obtained from this source @ -No Did you review nursing and triage notes (agree or disagree)? Why? @ -I reviewed and agree with nursing and triage notes Were old charts reviewed (outside hosp., previous admission, EMS record, old EKG, old radiological studies, urgent care reports/EKG's, custodial records)? Report findings @ -Old labs were reviewed Differential Diagnosis (chest pain, altered mental status, abdominal pain women, abdominal pain men, vaginal bleeding, musculoskeletal, weakness, fever, dyspnea, syncope, headache, dizziness, GI bleed, back pain, seizure, CVA, palpatations, mental health)? @ -Anemia, and reticulocyte shock, GI bleed, orthostatic hypotension EKG interpreted by me (3pts min.). @ -See above X-rays interpreted by me (1pt min.). @ -None done CT interpreted by me (1pt min.). @ -None done U/S interpreted by me (1pt. min.). @ -None done What testing was considered but not performed or refused? (CT, X-rays, U/S, labs)? Why? @ -None What meds were considered but not given or refused? Why? @ -None Did you discuss the management of the patient with other professionals (professionals i.e. JACKIE Wise, NETBACKUP ADMINISTRATOR, lab, RT, psych nurse, child protective services social worker, grounds restoration specialist, teacher, probation and parole officer, porter sample case)? Give summary @ -Care discussed with hospitalist for admission Was smoking cessation discussed for >3mins.? @ -No Was critical care preformed (if so, how long)? @ -No Were there social determinants of health that impacted care today? How? (Homelessness, low income, unemployed, alcoholism, drug addiction, transportation, low edu. Level, literacy, decrease access to med. care, correction, rehab)? @ -No Was there de-escalation of care discussed even if they declined (Discuss DNR or withdrawal of care, Hospice)? DNR status @ -No What co-morbidities impacted this encounter? (DM, HTN, Smoking, COPD, CAD, Cancer, CVA, ARF, Chemo, Hep., AIDS, mental health diagnosis, sleep apnea, morbid obesity)? @ -History of ESRD, severe cardiopulmonary comorbidities Was patient admitted / discharged? Hospital course, mention meds given and route, prescriptions, significant lab abnormalities, going to OR and other pertinent info. @ -52-year-old male presents emergency Department with anemia. Patient is well-appearing asymptomatic with stable vital signs. Hemoglobin 6.7. Patient g iven transfusion of blood. Admitted observation for blood transfusion and medical monitoring. Undiagnosed new problem with uncertain prognosis? @ -No Drug Therapy requiring intensive monitoring for toxicity (Heparin, Nitro, Insulin, Cardizem)? @ -No Were any procedures done? @ -No Diagnosis/symptom? Acute, or Chronic, or Acute on Chronic? Uncomplicated (without systemic symptoms) or Complicated (systemic symptoms)? @ -1. Acute uncomplicated anemia Side effects of treatment? @ -No Exacerbation, Progression, or Severe Exacerbation? @ -No Poses a threat to life or bodily function? How? (Chest pain, [place], [place], pneumonia, PE, COPD, DKA, ARF, appy, cholecystitis, CVA, Diverticulitis, Homicidal, Suicidal, threat to staff... and all critical care pts) @ -yes - Related Data Home Medications Medication Instructions Recorded Confirmed Sevelamer [Renvela] 800 mg PO DIRECTED 06/16/19 01/30/23 Pantoprazole [Protonix] 40 mg PO BID@0600,1800 04/08/20 01/30/23 hydrALAZINE HCL [Apresoline] 100 mg PO TID@0600,1200,1800 04/08/20 01/30/23 amLODIPine [Norvasc] 5 mg PO BID@0600,1800 05/30/20 01/30/23 Calcium Acetate [PhosLo] 667 mg PO TID-W/MEALS 12/15/20 01/30/23 Lactulose [Cephulac] 20 gm PO DAILY PRN 09/20/22 01/30/23 levETIRAcetam [Keppra] 1,000 mg PO BID@0600,1800 09/20/22 01/30/23 methocarbamoL [Robaxin-750] 750 mg PO BID PRN 09/20/22 01/30/23 Aspirin 81 mg PO DAILY@1600 01/21/23 01/30/23 Atorvastatin [Lipitor] 80 mg PO DAILY@1800 01/21/23 01/30/23 Clopidogrel [Plavix] 75 mg PO DAILY@1600 01/21/23 01/30/23 Doxazosin [Cardura] 4 mg PO BID 01/21/23 01/30/23 Fluticasone Propion/Salmeterol 1 puff INHALATION RT-BID 01/21/23 01/30/23 [Wixela 250-50 Inhub] Metoprolol Tartrate [Lopressor] 50 mg PO BID@0600,1800 01/21/23 01/30/23 Nitroglycerin Sl Tabs [Nitrostat] 0.4 mg SUBLINGUAL Q5M PRN 01/21/23 01/30/23 Previous Rx's Medication Instructions Recorded Budesonide-Formot 160-4.5 Mcg 1 puff INHALATION RT-BID 30 Days 01/23/23 [Symbicort 160-4.5 Mcg Inhaler] #1 each Isosorbide Mononitrate ER [Imdur] 30 mg PO DAILY 30 Days #30 tab 02/01/23 lisinopriL [Zestril] 10 mg PO DAILY 30 Days #30 tab 02/01/23 Allergies Allergy/AdvReac Type Severity Reaction Status Date / Time baclofen AdvReac "too Verified 02/20/23 21:11 strong/sedated" hydromorphone [From Dilaudid] AdvReac Hallucinati Verified 02/20/23 21:11 ons morphine AdvReac Hallucinati Verified 02/20/23 21:11 ons tramadol AdvReac Hallucinati Verified 02/20/23 21:11 ons Review of Systems ROS Statement: Those systems with pertinent positive or pertinent negative responses have been documented in the HPI. ROS Other: All systems not noted in ROS Statement are negative. 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 eye injection with steroid on 04/04 for eye "stroke" , history of left-sided thoracentesis in January 2018, lungs tapped Past Anesthesia/Blood Transfusion Reactions: No Reported Reaction Additional Past Anesthesia/Blood Transfusion Reaction / Comment(s): Pt has received blood in past without reaction. Date of Last Stent Placement:: 2021 Past Psychological History: No Psychological Hx Reported Smoking Status: Current every day smoker Past Alcohol Use History: None Reported Past Drug Use History: None Reported - Past Family History Father Family Medical History: Cancer, CVA/TIA, Myocardial Infarction ([place]) Additional Family Medical History / Comment(s): Father had lymphoma. He had a CVA. Mother Family Medical History: CVA/TIA Additional Family Medical History / Comment(s): Mother had a CVA. Sister(s) Additional Family Medical History / Comment(s): Patient has 5 sisters one has from an aneurysm in the brain. 2 sisters have history of kidney stones. Patient has one brother that was shot as cause of , he was on the kidney transplant list. Patient has 6 children with no major medical problems. Course Vital Signs 02/20/23 02/20/23 21:07 21:11 Temperature 98.8 F 98.9 F Pulse Rate 75 68 Respiratory 16 18 Rate Blood Pressure 184/88 O2 Sat by Pulse 99 95 Oximetry Medical Decision Making - Lab Data Result diagrams: 02/20/23 22:15 02/20/23 22:15 Lab Results 02/20/23 02/20/23 02/20/23 Range/Units 22:05 22:15 22:15 WBC 4.7 (3.8-10.6) k/uL RBC 1.99 L (4.30-5.90) m/uL Hgb 6.7 L* (13.0-17.5) gm/dL Hct 19.1 L* (39.0-53.0) % MCV 96.2 (80.0-100.0) fL MCH 33.6 (25.0-35.0) pg MCHC 34.9 (31.0-37.0) g/dL RDW 15.0 (11.5-15.5) % MPV 8.4 Poikilocytosis Slight PT (9.0-12.0) sec INR (<1.2) APTT (22.0-30.0) sec Sodium 136 L (137-145) mmol/L Potassium 4.1 (3.5-5.1) mmol/L Chloride 98 (98-107) mmol/L Carbon Dioxide 28 (22-30) mmol/L Anion Gap 10 mmol/L BUN 25 H (9-20) mg/dL Creatinine 6.81 H (0.66-1.25) mg/dL Est GFR (CKD-EPI)AfAm 10 (>60 ml/min/1.73 sqM) Est GFR (CKD-EPI)NonAf 8 (>60 ml/min/1.73 sqM) Glucose 108 H (74-99) mg/dL Calcium 8.3 L (8.4-10.2) mg/dL Stool Occult Blood Negative (Negative) Blood Type Blood Type Recheck Bld Type Recheck Status Antibody Screen Spec Expiration Date 02/20/23 02/20/23 Range/Units 22:15 22:15 WBC (3.8-10.6) k/uL RBC (4.30-5.90) m/uL Hgb (13.0-17.5) gm/dL Hct (39.0-53.0) % MCV (80.0-100.0) fL MCH (25.0-35.0) pg MCHC (31.0-37.0) g/dL RDW (11.5-15.5) % MPV Poikilocytosis PT 11.4 (9.0-12.0) sec INR 1.1 (<1.2) APTT 25.2 (22.0-30.0) sec Sodium (137-145) mmol/L Potassium (3.5-5.1) mmol/L Chloride (98-107) mmol/L Carbon Dioxide (22-30) mmol/L Anion Gap mmol/L BUN (9-20) mg/dL Creatinine (0.66-1.25) mg/dL Est GFR (CKD-EPI)AfAm (>60 ml/min/1.73 sqM) Est GFR (CKD-EPI)NonAf (>60 ml/min/1.73 sqM) Glucose (74-99) mg/dL Calcium (8.4-10.2) mg/dL Stool Occult Blood (Negative) Blood Type O Positive Blood Type Recheck O Pos Bld Type Recheck Status No Antibody Screen NEGATIVE Spec Expiration Date 02/23/20232314 Disposition Clinical Impression: Anemia Disposition: ADMITTED IP TO THIS [facility] Condition: Fair Decision Time: 22:43
[2023-02-20 22:33] LABS: Basophils % (A) 1 %; Eosinophils # (A) 0.1 k/uL (0-0.7); Eosinophils % (A) 1 %; Lymphocytes # (A) 0.7 k/uL (1.0-4.8); Lymphocytes % (A) 14 %; MCH 33.6 pg (25.0-35.0); MCHC 34.9 g/dL (31.0-37.0); MCV 96.2 fL (80.0-100.0); Mean Platelet Volume 8.4; Monocytes # (A) 0.3 k/uL (0-1.0); Monocytes % (A) 6 %; Neutrophils # (A) 3.6 k/uL (1.3-7.7); Neutrophils % (A) 77 %; Poikilocytosis Slight; RBC 1.99 m/uL (4.30-5.90); WBC 4.7 k/uL (3.8-10.6)
[2023-02-20 22:39] LABS: HCT 19.1 % (39.0-53.0); HGB 6.7 gm/dL (13.0-17.5); Platelet Count 90 k/uL (150-450)
[2023-02-20 22:41] LABS: INR 1.1 (<1.2); Partial Thromboplastin Time 25.2 sec (22.0-30.0); Prothrombin Time 11.4 sec (9.0-12.0)
[2023-02-20] MEDS ORDERED: NALOXONE 0.4 MG/ML 1 ML VIAL IV PRN (22:41)
[2023-02-20] MEDS ORDERED: SODIUM CHLORIDE 0.9% 1,000 ML IV SCH (22:45)
[2023-02-20 22:57] LABS: Calcium 8.3 mg/dL (8.4-10.2); Potassium 4.1 mmol/L (3.5-5.1)
[2023-02-21 00:57] LABS: Large Platelets Present; RBC Morphology Normal
[2023-02-21 03:24] VITALS: RESP 16
[2023-02-21 05:57] VITALS: BP 196/92; PULSE 66; TEMP 98.1
== END 2023-02-21 06:10 | disposition left against medical advice (07) ==
LOC: EC 20:51 → 5NMEDONC 22:42
PROVIDERS: ADMIT Hospitalist; ATTEND Hospitalist
DX: D64.9 Anemia, unspecified (principal); I12.0 Hypertensive chronic kidney disease with stage 5 chronic kidney disease or end stage renal disease; N18.6 End stage renal disease; Z99.2 Dependence on renal dialysis; E78.5 Hyperlipidemia, unspecified; I48.91 Unspecified atrial fibrillation; G40.909 Epilepsy, unspecified, not intractable, without status epilepticus; H57.9 Unspecified disorder of eye and adnexa; F17.200 Nicotine dependence, unspecified, uncomplicated; Z53.29 Procedure and treatment not carried out because of patient's decision for other reasons; Z79.899 Other long term (current) drug therapy; Z79.02 Long term (current) use of antithrombotics/antiplatelets; Z79.82 Long term (current) use of aspirin; Z79.51 Long term (current) use of inhaled steroids; Z88.5 Allergy status to narcotic agent; Z88.8 Allergy status to other drugs, medicaments and biological substances; Z87.11 Personal history of peptic ulcer disease; Z86.73 Personal history of transient ischemic attack (TIA), and cerebral infarction without residual deficits; Z95.5 Presence of coronary angioplasty implant and graft; Z98.890 Other specified postprocedural states; Z87.442 Personal history of urinary calculi; Z80.7 Family history of other malignant neoplasms of lymphoid, hematopoietic and related tissues; Z82.3 Family history of stroke; Z82.49 Family history of ischemic heart disease and other diseases of the circulatory system; Z84.1 Family history of disorders of kidney and ureter
CPT/HCPCS: 36430; 99284; 36415; 93005; 86900; 86901; 80048; 85025; 85610; 85730; 86850; 86920; 82272; G0378 ×2; P9016

== ENCOUNTER 2023-03-07 19:15 | Emergency (ER) | payer MEDICARE, BC ==
[2023-03-07 19:19] VITALS: RESP 20
[2023-03-07] MEDS ORDERED: LIDOCAINE/EPINEPHR/TETRACAINE 5 ML BOTTLE TOPICAL ONE (19:38)
[2023-03-07] MEDS ORDERED: ACETAMINOPHEN TAB 325 MG TAB PO STA (19:38)
--- NOTE | 2023-03-07 19:43 | ED ---
Wound/Laceration HPI - General Chief Complaint: Wound/Laceration Stated Complaint: Toe Injury Time Seen by Provider: 03/07/23 19:21 Source: patient, RN notes reviewed Mode of arrival: wheelchair Limitations: no limitations - History of Present Illness Initial Comments: This is a 52-year-old male who presents to the emergency department for a right great toe injury. States that earlier today, his dropped an air compressor on his toe. He has since started to develop pain and swelling. Feels like his toenail is starting to come off. He also has a large area of blood collection underneath the toe. Tetanus status is up-to-date. He is on dialysis and his pain medication options are essentially limited to Tylenol. Denies any fevers, chills, sore throat, cough, dyspnea, chest pain, palpitations, abdominal pain, nausea, vomiting, diarrhea, back pain, or headaches. Location: other (Right great toe) - Related Data Home Medications Medication Instructions Recorded Confirmed Sevelamer [Renvela] 800 mg PO DIRECTED 06/16/19 01/30/23 Pantoprazole [Protonix] 40 mg PO BID@0600,1800 04/08/20 01/30/23 hydrALAZINE HCL [Apresoline] 100 mg PO TID@0600,1200,1800 04/08/20 01/30/23 amLODIPine [Norvasc] 5 mg PO BID@0600,1800 05/30/20 01/30/23 Calcium Acetate [PhosLo] 667 mg PO TID-W/MEALS 12/15/20 01/30/23 Lactulose [Cephulac] 20 gm PO DAILY PRN 09/20/22 01/30/23 levETIRAcetam [Keppra] 1,000 mg PO BID@0600,1800 09/20/22 01/30/23 methocarbamoL [Robaxin-750] 750 mg PO BID PRN 09/20/22 01/30/23 Aspirin 81 mg PO DAILY@1600 01/21/23 01/30/23 Atorvastatin [Lipitor] 80 mg PO DAILY@1800 01/21/23 01/30/23 Clopidogrel [Plavix] 75 mg PO DAILY@1600 01/21/23 01/30/23 Doxazosin [Cardura] 4 mg PO BID 01/21/23 01/30/23 Fluticasone Propion/Salmeterol 1 puff INHALATION RT-BID 01/21/23 01/30/23 [Wixela 250-50 Inhub] Metoprolol Tartrate [Lopressor] 50 mg PO BID@0600,1800 01/21/23 01/30/23 Nitroglycerin Sl Tabs [Nitrostat] 0.4 mg SUBLINGUAL Q5M PRN 01/21/23 01/30/23 Previous Rx's Medication Instructions Recorded Budesonide-Formot 160-4.5 Mcg 1 puff INHALATION RT-BID 30 Days 01/23/23 [Symbicort 160-4.5 Mcg Inhaler] #1 each Isosorbide Mononitrate ER [Imdur] 30 mg PO DAILY 30 Days #30 tab 02/01/23 lisinopriL [Zestril] 10 mg PO DAILY 30 Days #30 tab 02/01/23 Cephalexin [Keflex] 500 mg PO Q6HR 5 Days #20 cap 03/07/23 Allergies Allergy/AdvReac Type Severity Reaction Status Date / Time baclofen AdvReac "too Verified 03/07/23 19:18 strong/sedated" hydromorphone [From Dilaudid] AdvReac Hallucinati Verified 03/07/23 19:18 ons morphine AdvReac Hallucinati Verified 03/07/23 19:18 ons tramadol AdvReac Hallucinati Verified 03/07/23 19:18 ons Review of Systems ROS Statement: Those systems with pertinent positive or pertinent negative responses have been documented in the HPI. ROS Other: All systems not noted in ROS Statement are negative. 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 eye injection with steroid on 04/04 for eye "stroke" , history of left-sided thoracentesis in January 2018, lungs tapped Past Anesthesia/Blood Transfusion Reactions: No Reported Reaction Additional Past Anesthesia/Blood Transfusion Reaction / Comment(s): Pt has received blood in past without reaction. Date of Last Stent Placement:: 2021 Past Psychological History: No Psychological Hx Reported Smoking Status: Current every day smoker Past Alcohol Use History: None Reported Past Drug Use History: None Reported - Past Family History Father Family Medical History: Cancer, CVA/TIA, Myocardial Infarction ([place]) Additional Family Medical History / Comment(s): Father had lymphoma. He had a CVA. Mother Family Medical History: CVA/TIA Additional Family Medical History / Comment(s): Mother had a CVA. Sister(s) Additional Family Medical History / Comment(s): Patient has 5 sisters one has from an aneurysm in the brain. 2 sisters have history of kidney stones. Patient has one brother that was shot as cause of , he was on the kidney transplant list. Patient has 6 children with no major medical problems. General Exam Limitations: no limitations General appearance: alert, in no apparent distress Head exam: Present: atraumatic, normocephalic, normal inspection Respiratory exam: Present: normal lung sounds bilaterally. Absent: respiratory distress, wheezes, rales, rhonchi, stridor Cardiovascular Exam: Present: regular rate, normal rhythm, normal heart sounds. Absent: systolic murmur, diastolic murmur, rubs, gallop, clicks Neurological exam: Present: alert, oriented X3, CN II-XII intact Psychiatric exam: Present: normal affect, normal mood Skin exam: Present: other (Swelling and ecchymosis to the right great toe with a large collection of blood just inferior to the toenail.) Course Vital Signs 03/07/23 03/07/23 19:17 21:01 Temperature 98.5 F 98.1 F Pulse Rate 88 82 Respiratory 20 20 Rate Blood Pressure 165/72 156/70 O2 Sat by Pulse 100 100 Oximetry Medical Decision Making - Medical Decision Making This is a 52-year-old male who presents to the emergency department for an injury to the right great toe. Was pt. sent in by a medical professional or institution? @ -No Did you speak to anyone other than the patient for history? @ -No Did you review nursing and triage notes? @ -Yes, and I agree, it is accurate with regards to the patient's symptoms. Were old charts reviewed? @ -No Differential Diagnosis? @ -Differential Toe Injury: Fracture, dislocation, contusion, this is not meant to be an all-inclusive list. X-rays interpreted by me (1pt min.)? @ -X-ray of the right great toe obtained. My interpretation identifies a transverse fracture through the metadiaphysis. What testing was considered but not performed? (CT, X-rays, U/S, labs)? Why? @ -None What meds were considered but not given? Why? @ -None Did you discuss the management of the patient with other professionals? @ -No Did you reconcile home meds? @ -No Was smoking cessation discussed for >3mins.? @ -No Was critical care preformed (if so, how long)? @ -No Were there social determinants of health that impacted care today? How? (Homelessness, low income, unemployed, alcoholism, drug addiction, transportation, low edu. Level, literacy, decrease access to med. care, retirement, rehab)? @ -No Was there de-escalation of care discussed even if they declined? (Discuss DNR or withdrawal of care, Hospice)? @ -No What co-morbidities impacted this encounter? (DM, HTN, Smoking, COPD, CAD, Cancer, CVA, Hep., AIDS, mental health diagnosis, sleep apnea, morbid obesity)? @ -A-fib, ESRD on dialysis Was patient admitted / discharged? @ -Discharged. Patient given Tylenol for pain relief. LET was also applied to ease the discomfort. X-ray reveals a minimally displaced transverse fracture through the metadiaphysis. Julio tape was applied and he was given a postoperative shoe. Given that there were several abrasions, lacerations, and a blood blister that may rupture, this increases his risk for infection. Will put the patient on Keflex for infectious prophylaxis. Prescription for Keflex provided with dosing instructions reviewed. He was also given information for orthopedics. Instructed him to contact them in the morning for follow-up appointment. Otherwise advised Tylenol as needed for pain relief and applying ice for 10-15 minutes every 2-3 hours. Undiagnosed new problem with uncertain prognosis? @ -None Drug Therapy requiring intensive monitoring for toxicity (Heparin, Nitro, Insulin, Cardizem)? @ -None Were any procedures done? @ -None Diagnosis/symptom? @ -Right great toe fracture Acute, or Chronic, or Acute on Chronic? @ -Acute Uncomplicated (without systemic symptoms) or Complicated (systemic symptoms)? @ -Uncomplicated Side effects of treatment? @ -None Exacerbation, Progression, or Severe Exacerbation] @ -Not applicable Poses a threat to life or bodily function? @ -No Return precautions reviewed in depth, the patient is instructed to return to the emergency department with any new, worsening, or concerning symptoms. Patient verbalized understanding. This case was discussed in detail with the attending ED physician, Dr. Feldman. Presentation, findings, and treatment plan discussed in detail as well. - Radiology Data Radiology results: report reviewed, image reviewed Disposition Clinical Impression: Fracture of great toe of right foot Disposition: HOME SELF-CARE Instructions (If sedation given, give patient instructions): Toe Fracture (ED) Additional Instructions: Return to the emergency department with any new, worsening, or concerning symptoms. Take the antibiotic as prescribed for 5 days. Take Tylenol as needed for pain relief and apply ice for 10-15 minutes every 2-3 hours. Keep the toes taped together and use the hard shoe provided. Contact orthopedics as listed below first thing in the morning for a follow-up appointment. Prescriptions: Cephalexin [Keflex] 500 mg PO Q6HR 5 Days #20 cap Is patient prescribed a controlled substance at d/c from ED?: No Referrals: Jaylen Holguin MD [Primary Care Provider] - 1-2 days Melvin Biggs MD [STAFF PHYSICIAN] - 1-2 days
--- NOTE | 2023-03-07 19:57 | XR ---
EXAMINATION TYPE: XR toes RT DATE OF EXAM: 03/07/2023 COMPARISON: NONE HISTORY: First toe crushing injury with pain TECHNIQUE: 3 views of right toes are performed. FINDINGS: There is acute minimally displaced transverse fracture through proximal metadiaphysis of th e first distal phalanx. Joint spaces are preserved. [id number] soft tissue swelling at site of fracture is noted. IMPRESSION: As above.
[2023-03-07] MEDS ORDERED: CEPHALEXIN 500MG STARTER PACK 4 CAP BTL PO STA (20:09)
[2023-03-07 21:04] VITALS: BP 156/70; PULSE 82; TEMP 98.1
== END 2023-03-07 21:03 | disposition home or self-care (01) ==
LOC: EC 19:15
DX: S92.401A Displaced unspecified fracture of right great toe, initial encounter for closed fracture (principal); I10 Essential (primary) hypertension; I48.91 Unspecified atrial fibrillation; E78.5 Hyperlipidemia, unspecified; G40.909 Epilepsy, unspecified, not intractable, without status epilepticus; F17.200 Nicotine dependence, unspecified, uncomplicated; Z79.82 Long term (current) use of aspirin; Z79.02 Long term (current) use of antithrombotics/antiplatelets; Z79.899 Other long term (current) drug therapy; Z86.73 Personal history of transient ischemic attack (TIA), and cerebral infarction without residual deficits; Z88.5 Allergy status to narcotic agent; Z88.8 Allergy status to other drugs, medicaments and biological substances; Z99.2 Dependence on renal dialysis; W20.8XXA Other cause of strike by thrown, projected or falling object, initial encounter
CPT/HCPCS: 99283

== ENCOUNTER 2024-02-23 10:58 | Observation (INO) | payer MEDICARE, BC ==
[2024-02-23] MEDS: NITROGLYCERIN OINT 1 INCH/GM PACKET TOPICAL STA (11:31)
[2024-02-23] MEDS: ASPIRIN 81 MG PO STA (11:32)
--- NOTE | 2024-02-23 11:54 | ED ---
General Adult HPI - General Chief complaint: Chest Pain Stated complaint: pulpitations Time Seen by Provider: 02/23/24 11:10 Source: patient, family, RN notes reviewed, old records reviewed Mode of arrival: wheelchair Limitations: no limitations - History of Present Illness Initial comments: This is a 53-year-old male with a past medical history significant for coronary artery disease and stent placement. Patient also has a past history of renal failure on dialysis. Patient also continues to smoke. Patient arrives today complaining of chest pain on the left side of his chest and some shortness of breath. Patient denies any diaphoretic episode patient has any radiation of the pain. Patient has any nausea. Patient has abdominal pain patient is any vomiting or diarrhea recently. Patient denies any fever chills or cough. Patient denies a headache patient denies lightheadedness or dizziness. - Related Data Home Medications Medication Instructions Recorded Confirmed Sevelamer [Renvela] 800 mg PO DIRECTED 06/16/19 01/30/23 Pantoprazole [Protonix] 40 mg PO BID@0600,1800 04/08/20 01/30/23 hydrALAZINE HCL [Apresoline] 100 mg PO TID@0600,1200,1800 04/08/20 01/30/23 amLODIPine [Norvasc] 5 mg PO BID@0600,1800 05/30/20 01/30/23 Calcium Acetate [PhosLo] 667 mg PO TID-W/MEALS 12/15/20 01/30/23 Lactulose [Cephulac] 20 gm PO DAILY PRN 09/20/22 01/30/23 levETIRAcetam [Keppra] 1,000 mg PO BID@0600,1800 09/20/22 01/30/23 methocarbamoL [Robaxin-750] 750 mg PO BID PRN 09/20/22 01/30/23 Aspirin 81 mg PO DAILY@1600 01/21/23 01/30/23 Atorvastatin [Lipitor] 80 mg PO DAILY@1800 01/21/23 01/30/23 Clopidogrel [Plavix] 75 mg PO DAILY@1600 01/21/23 01/30/23 Doxazosin [Cardura] 4 mg PO BID 01/21/23 01/30/23 Fluticasone Propion/Salmeterol 1 puff INHALATION RT-BID 01/21/23 01/30/23 [Wixela 250-50 Inhub] Metoprolol Tartrate [Lopressor] 50 mg PO BID@0600,1800 01/21/23 01/30/23 Nitroglycerin Sl Tabs [Nitrostat] 0.4 mg SUBLINGUAL Q5M PRN 01/21/23 01/30/23 Previous Rx's Medication Instructions Recorded Budesonide-Formot 160-4.5 Mcg 1 puff INHALATION RT-BID 30 Days 01/23/23 [Symbicort 160-4.5 Mcg Inhaler] #1 each Isosorbide Mononitrate ER [Imdur] 30 mg PO DAILY 30 Days #30 tab 02/01/23 lisinopriL [Zestril] 10 mg PO DAILY 30 Days #30 tab 02/01/23 Cephalexin [Keflex] 500 mg PO Q6HR 5 Days #20 cap 03/07/23 Allergies Allergy/AdvReac Type Severity Reaction Status Date / Time baclofen AdvReac "too Verified 02/23/24 11:12 strong/sedated" hydromorphone [From Dilaudid] AdvReac Hallucinati Verified 02/23/24 11:12 ons morphine AdvReac Hallucinati Verified 02/23/24 11:12 ons tramadol AdvReac Hallucinati Verified 02/23/24 11:12 ons Review of Systems ROS Statement: Those systems with pertinent positive or pertinent negative responses have been documented in the HPI. ROS Other: All systems not noted in ROS Statement are negative. 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 eye injection with steroid on 04/04 for eye "stroke" , history of left-sided thoracentesis in January 2018, lungs tapped Past Anesthesia/Blood Transfusion Reactions: No Reported Reaction Additional Past Anesthesia/Blood Transfusion Reaction / Comment(s): Pt has received blood in past without reaction. Date of Last Stent Placement:: 2021 Past Psychological History: No Psychological Hx Reported Smoking Status: Current every day smoker Past Alcohol Use History: None Reported Past Drug Use History: None Reported - Past Family History Father Family Medical History: Cancer, CVA/TIA, Myocardial Infarction ([place]) Additional Family Medical History / Comment(s): Father had lymphoma. He had a CVA. Mother Family Medical History: CVA/TIA Additional Family Medical History / Comment(s): Mother had a CVA. Sister(s) Additional Family Medical History / Comment(s): Patient has 5 sisters one has from an aneurysm in the brain. 2 sisters have history of kidney stones. Patient has one brother that was shot as cause of , he was on the kidney transplant list. Patient has 6 children with no major medical problems. General Exam - General Exam Comments Initial Comments: GENERAL: Patient is well-developed and well-nourished. Patient is nontoxic and well- hydrated and is in mild distress. ENT: Neck is soft and supple. No significant lymphadenopathy is noted. Oropharynx is clear. Moist mucous membranes. Neck has full range of motion without eliciting any pain. EYES: The sclera were anicteric and conjunctiva were pink and moist. Extraocular movements were intact and pupils were equal round and reactive to light. Eyelids were unremarkable. PULMONARY: Unlabored respirations. Good breath sounds bilaterally. No audible rales rhonchi or wheezing was noted. CARDIOVASCULAR: There is a regular rate and rhythm without any murmurs gallops or rubs. ABDOMEN: Soft and nontender with normal bowel sounds. SKIN: Skin is clear with no lesions or rashes and otherwise unremarkable. NEUROLOGIC: Patient is alert and oriented x3. Cranial nerves II through XII are grossly intact. Motor and sensory are also intact. Normal speech, volume and content. Symmetrical smile. MUSCULOSKELETAL: Normal extremities with adequate strength and full range of motion. LYMPHATICS: No significant lymphadenopathy is noted PSYCHIATRIC: Normal psychiatric evaluation. Limitations: no limitations Course Vital Signs 02/23/24 02/23/24 11:08 12:27 Temperature 97.7 F Pulse Rate 68 64 Respiratory 18 18 Rate Blood Pressure 178/86 178/83 O2 Sat by Pulse 100 96 Oximetry Medical Decision Making - Medical Decision Making EKG is interpreted by myself. EKG shows a sinus rhythm at 63 bpm KS interval 152 QRS is 96 QT interval is 460 QTc is 468. Patient's EKG shows no ST segment ovation or depression Was pt. sent in by a medical professional or institution (, PA, MOBILE ARCHITECT, urgent care, hospital, or assisted...) When possible be specific @ -No Did you speak to anyone other than the patient for history (EMS, parent, family, police, friend...)? What history was obtained from this source @ -No Did you review nursing and triage notes (agree or disagree)? Why? @ -I reviewed and agree with nursing and triage notes Were old charts reviewed (outside hosp., previous admission, EMS record, old EKG, old radiological studies, urgent care reports/EKG's, assisted records)? Report findings @ -No old charts were reviewed Differential Diagnosis (chest pain, altered mental status, abdominal pain women, abdominal pain men, vaginal bleeding, weakness, fever, dyspnea, syncope, headache, dizziness, GI bleed, back pain, seizure, CVA, palpatations, mental health, musculoskeletal)? @ -Differential Chest Pain: Stable Angina, Unstable Angina, STEMI, NSTEMI Aortic Dissection, Pneumothorax, Musculoskeletal, Esophageal Spasm GERD, Cholecystitis, Pancreatitis, Zoster, this is not meant to be an all-inclusive list. EKG interpreted by me (3pts min.). @ -As above X-rays interpreted by me (1pt min.). @ -Chest x-ray shows no acute abnormality CT interpreted by me (1pt min.). @ -None done U/S interpreted by me (1pt. min.). @ -None done What testing was considered but not performed or refused? (CT, X-rays, U/S, labs)? Why? @ -None What meds were considered but not given or refused? Why? @ -None Did you discuss the management of the patient with other professionals (professionals i.e. , PA, MOBILE ARCHITECT, lab, RT, psych nurse, clinical social work therapist, division road supervisor, teacher, bomb squad officer, piano case and bench assembler)? Give summary @ -I spoke with Dr. Garsia agreed admit the patient and admit the patient and write admitting orders Was smoking cessation discussed for >3mins.? @ -No Was critical care preformed (if so, how long)? @ -No Were there social determinants of health that impacted care today? How? (Homelessness, low income, unemployed, alcoholism, drug addiction, transportation, low edu. Level, literacy, decrease access to med. care, assisted, rehab)? @ -No Was there de-escalation of care discussed even if they declined (Discuss DNR or withdrawal of care, Hospice)? DNR status @ -No What co-morbidities impacted this encounter? (DM, HTN, Smoking, COPD, CAD, Cancer, CVA, ARF, Chemo, Hep., AIDS, mental health diagnosis, sleep apnea, morbid obesity)? @ -None Was patient admitted / discharged? Hospital course, mention meds given and route, prescriptions, significant lab abnormalities, going to OR and other pertinent info. @ -Patient's troponin was mildly elevated. Patient states his chest pain was improved with Nitropaste. I spoke with Dr. Garsia he agreed admit the patient admit the patient wrote admitting orders and consult cardiology Undiagnosed new problem with uncertain prognosis? @ -No Drug Therapy requiring intensive monitoring for toxicity (Heparin, Nitro, Insulin, Cardizem)? @ -No Were any procedures done? @ -No Diagnosis/symptom? @ -Chest pain Acute, or Chronic, or Acute on Chronic? @ -Acute Uncomplicated (without systemic symptoms) or Complicated (systemic symptoms)? @ -Complicated Side effects of treatment? @ -No Exacerbation, Progression, or Severe Exacerbation? @ -No Poses a threat to life or bodily function? How? (Chest pain, [place], [place], pneumonia, PE, COPD, DKA, ARF, appy, cholecystitis, CVA, Diverticulitis, Homicidal, Suicidal, threat to staff... and all critical care pts) @ -Yes this could lead to an MT and end organ dysfunction - Lab Data Result diagrams: 02/23/24 11:28 02/23/24 11:28 Lab Results 04/06/1002/23/24 02/23/24 Range/Units 11:28 11:28 11:28 WBC 7.1 (3.8-10.6) k/uL RBC 2.89 L (4.30-5.90) m/uL Hgb 9.1 L (13.0-17.5) gm/dL Hct 28.3 L (39.0-53.0) % MCV 97.9 (80.0-100.0) fL MCH 31.3 (25.0-35.0) pg MCHC 32.0 (31.0-37.0) g/dL RDW 16.5 H (11.5-15.5) % Plt Count 189 (150-450) k/uL MPV 8.3 Neutrophils % 75 % Lymphocytes % 11 % Monocytes % 8 % Eosinophils % 2 % Basophils % 1 % Neutrophils # 5.3 (1.3-7.7) k/uL Lymphocytes # 0.8 L (1.0-4.8) k/uL Monocytes # 0.5 (0-1.0) k/uL Eosinophils # 0.2 (0-0.7) k/uL Basophils # 0.1 (0-0.2) k/uL Hypochromasia Slight Poikilocytosis Slight Anisocytosis Slight Macrocytosis Slight Sodium 142 (137-145) mmol/L Potassium 4.5 (3.5-5.1) mmol/L Chloride 103 (98-107) mmol/L Carbon Dioxide 25 (22-30) mmol/L Anion Gap 14 mmol/L BUN 54 H (9-20) mg/dL Creatinine 10.61 H* (0.66-1.25) mg/dL Est GFR (CKD-EPI)AfAm 6 (>60 ml/min/1.73 sqM) Est GFR (CKD-EPI)NonAf 5 (>60 ml/min/1.73 sqM) Glucose 110 H (74-99) mg/dL Calcium 9.0 (8.4-10.2) mg/dL Magnesium 1.6 (1.6-2.3) mg/dL Total Bilirubin 0.7 (0.2-1.3) mg/dL AST 20 (17-59) U/L ALT 11 (4-49) U/L Alkaline Phosphatase 83 (38-126) U/L Troponin I 0.040 H* (0.000-0.034) ng/mL Total Protein 6.0 L (6.3-8.2) g/dL Albumin 3.5 (3.5-5.0) g/dL Disposition Clinical Impression: Chest pain Disposition: ADMITTED IP TO THIS HOSP Referrals: Jaylen Holguin [Primary Care Provider] - 1-2 days Time of Disposition: 14:02
--- NOTE | 2024-02-23 11:57 | XR ---
EXAMINATION TYPE: XR chest 2V DATE OF EXAM: 02/23/2024 11:36 AM CLINICAL INDICATION:Male, 53 years old with history of dysrhythmia; [facility] COMPARISON: Chest radiographs from 01/30/2023 TECHNIQUE: XR chest 2V Frontal and lateral views of the chest. FINDINGS: Lungs/Pleura: Multifocal airspace opacities. No evidence of pneumothorax or pleural effusion. Pulmonary vascularity: Unremarkable. Heart/mediastinum: Cardiomediastinal silhouette is unremarkable. Musculoskeletal: No acute osseous pathology. IMPRESSION: Scattered airspace opacities correlate for pulmonary vascular congestion versus atypical pneumonia. F indings somewhat similar to prior 01/30/2023
[2024-02-23 11:58] LABS: Anisocytosis Slight; Basophils # (A) 0.1 k/uL (0-0.2); Basophils % (A) 1 %; Eosinophils # (A) 0.2 k/uL (0-0.7); Eosinophils % (A) 2 %; HCT 28.3 % (39.0-53.0); HGB 9.1 gm/dL (13.0-17.5); Hypochromasia Slight; Lymphocytes # (A) 0.8 k/uL (1.0-4.8); Lymphocytes % (A) 11 %; MCH 31.3 pg (25.0-35.0); MCV 97.9 fL (80.0-100.0); Macrocytosis Slight; Mean Platelet Volume 8.3; Monocytes # (A) 0.5 k/uL (0-1.0); Monocytes % (A) 8 %; Neutrophils # (A) 5.3 k/uL (1.3-7.7); Neutrophils % (A) 75 %; Platelet Count 189 k/uL (150-450); Poikilocytosis Slight; RBC 2.89 m/uL (4.30-5.90); RDW 16.5 % (11.5-15.5); WBC 7.1 k/uL (3.8-10.6)
[2024-02-23 12:31] LABS: ALT 11 U/L (4-49); AST 20 U/L (17-59); African American GFR (CKD) 6 (>60 ml/min/1.73 sqM); Albumin 3.5 g/dL (3.5-5.0); Alkaline Phosphatase 83 U/L (38-126); Anion Gap 14 mmol/L; Blood Urea Nitrogen 54 mg/dL (9-20); Carbon Dioxide 25 mmol/L (22-30); Chloride 103 mmol/L (98-107); Glucose 110 mg/dL (74-99); Magnesium 1.6 mg/dL (1.6-2.3); Non-African American GFR(CKD) 5 (>60 ml/min/1.73 sqM); Potassium 4.5 mmol/L (3.5-5.1); Sodium 142 mmol/L (137-145); Total Bilirubin 0.7 mg/dL (0.2-1.3)
[2024-02-23] MEDS ORDERED: NITROGLYCERIN SL TABS 0.4 MG TAB SUBLINGUAL PRN (14:03)
[2024-02-23 14:11] LABS: INR 1.1 (<1.2); Partial Thromboplastin Time 28.6 sec (22.0-30.0); Prothrombin Time 11.8 sec (10.0-12.5)
[2024-02-23] MEDS: NITROGLYCERIN OINT 1 INCH/GM PACKET TOPICAL SCH (18:11)
[2024-02-23] MEDS: cloNIDine HCL 0.1 MG TAB PO PRN (18:50)
[2024-02-23] MEDS: METOPROLOL TARTRATE 50 MG TAB PO SCH (21:04)
[2024-02-23] MEDS: DOXAZOSIN 4 MG TAB PO SCH (21:04)
[2024-02-23] MEDS: levETIRAcetam 500 MG TAB PO SCH (21:04)
[2024-02-23] MEDS: amLODIPine 5 MG TAB PO SCH (21:04)
[2024-02-23] MEDS: hydrALAZINE HCL 50 MG TAB PO SCH (21:04)
[2024-02-23] MEDS: PANTOPRAZOLE 40 MG TABLET PO SCH (21:07)
[2024-02-24] MEDS: SEVELAMER 800 MG TAB PO SCH (07:30)
[2024-02-24] MEDS: CALCIUM ACETATE 667 MG TAB PO SCH (07:30)
[2024-02-24] MEDS: lisinopriL 10 MG TAB PO SCH (08:26)
[2024-02-24] MEDS: CLOPIDOGREL 75 MG TAB PO SCH (08:26)
[2024-02-24] MEDS: ASPIRIN 325 MG TAB PO SCH (08:26)
[2024-02-24] MEDS: ISOSORBIDE MONONITRATE ER 30 MG TAB.ER.24H PO SCH (08:26)
[2024-02-24] MEDS: ATORVASTATIN 80 MG TAB PO SCH (08:26)
--- NOTE | 2024-02-24 09:42 | P.HPIM ---
History of Present Illness H&P Date: 02/23/24 History of present illness; patient is a 53-year-old gentleman with past medical history significant for end-stage renal disease on dialysis, coronary artery disease who presented to the ER because of chest pain. Patient stated that he was all right this morning when around 9 AM he was woken up from sleep because of chest pain that was central in location, chest pain was pressure-like, nonradiating, no aggravating or relieving factor associated chest pain. There was no complaint of shortness of breath. There is no complaint of palpitation. Patient denies any orthopnea or PND. There is no complaint of swelling of feet .because of chest pain, patient sided to come to the ER Initial lab work done in the ER showed WBC 7.1, hemoglobin 9.1, platelet count 189, sodium 142, potassium 4.5, BUN 54, creatinine 10.61, troponin 0.040 EKG done in the ER showed heart rate of 63, RI 132, QRS 96,, no ST segment elevation or depression seen, no T-wave inversions seen. Chest x-ray done in the ER showed scattered airspace opacities: For pulmonary vascular congestion versus atypical pneumonia Patient admitted to internal medicine service REVIEW OF SYSTEMS: CONSTITUTIONAL: No fever, no malaise, no fatigue. HEENT: No recent visual problems or hearing problems. Denied any sore throat. CARDIOVASCULAR: As mentioned HPI PULMONARY: As mentioned HPI GASTROINTESTINAL: No diarrhea, no nausea, no vomiting, no abdominal pain. NEUROLOGICAL: No headaches, no weakness, no numbness. HEMATOLOGICAL: Denies any bleeding or petechiae. GENITOURINARY: Denies any burning micturition, frequency, or urgency. MUSCULOSKELETAL/RHEUMATOLOGICAL: Denies any joint pain, swelling, or any muscle pain. ENDOCRINE: Denies any polyuria or polydipsia. The rest of the 14-point review of systems is negative. PHYSICAL EXAMINATION: GENERAL: The patient is alert and oriented x3, not in any acute distress. Well d eveloped, well nourished. HEENT: Pupils are round and equally reacting to light. EOMI. No scleral icterus. No conjunctival pallor. Normocephalic, atraumatic. No pharyngeal erythema. No thyromegaly. CARDIOVASCULAR: S1 and S2 present. No murmurs, rubs, or gallops. PULMONARY: Chest is clear to auscultation, no wheezing or crackles. ABDOMEN: Soft, nontender, nondistended, normoactive bowel sounds. No palpable organomegaly. MUSCULOSKELETAL: No joint swelling or deformity. EXTREMITIES: No cyanosis, clubbing, or pedal edema. NEUROLOGICAL: Gross neurological examination did not reveal any focal deficits. SKIN: No rashes. Assessment and plan Chest pain, rule out acute coronary syndrome Elevated troponin Hypertension End-stage renal disease on hemodialysis chronic systolic and diastolic, ejection fraction 45-50% Mild thrombocytopenia Hyperlipidemia Nicotine dependence History of seizure disorder History of nephrolithiasis Chronic atrial fibrillation History of coronary artery disease status post stent History of multiple CVA with no residual weakness History of GI bleed and peptic ulcer disease History of spinal stenosis secondary to degenerative disc disease and chronic cervical and back pain Monitor vital signs Monitor CBC Monitor CMP Continue telemetry monitoring Trend troponin. Ordered 2D echo Resume home meds Consult cardiology Labs and medication were reviewed.. Continue same treatment. Continue with symptomatic treatment. Resume home medication. Monitor labs and vitals. DVT and GI prophylaxis. Further recommendations as per clinical course of the patient Dictation was produced using [employer] dictation software. please excuse any grammatical, word or spelling errors. 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 eye injection with steroid on 04/04 for eye "stroke" , history of left-sided thoracentesis in January 2018, lungs tapped Past Anesthesia/Blood Transfusion Reactions: No Reported Reaction Additional Past Anesthesia/Blood Transfusion Reaction / Comment(s): Pt has received blood in past without reaction. Date of Last Stent Placement:: 2021 Past Psychological History: No Psychological Hx Reported Smoking Status: Current every day smoker Past Alcohol Use History: None Reported Past Drug Use History: None Reported - Past Family History Father Family Medical History: Cancer, CVA/TIA, Myocardial Infarction ([place]) Additional Family Medical History / Comment(s): Father had lymphoma. He had a C [facility]. Mother Family Medical History: CVA/TIA Additional Family Medical History / Comment(s): Mother had a CVA. Sister(s) Additional Family Medical History / Comment(s): Patient has 5 sisters one has from an aneurysm in the brain. 2 sisters have history of kidney stones. Patient has one brother that was shot as cause of , he was on the kidney transplant list. Patient has 6 children with no major medical problems. Medications and Allergies Home Medications Medication Instructions Recorded Confirmed Type Sevelamer [Renvela] 800 mg PO DIRECTED 06/16/19 01/30/23 History Pantoprazole [Protonix] 40 mg PO BID@0600,1800 04/08/20 01/30/23 History hydrALAZINE HCL [Apresoline] 100 mg PO TID@0600,1200,1800 04/08/20 01/30/23 History amLODIPine [Norvasc] 5 mg PO BID@0600,1800 05/30/20 01/30/23 History Calcium Acetate [PhosLo] 667 mg PO TID-W/MEALS 12/15/20 01/30/23 History Lactulose [Cephulac] 20 gm PO DAILY PRN 09/20/22 01/30/23 History levETIRAcetam [Keppra] 1,000 mg PO BID@0600,1800 09/20/22 01/30/23 History methocarbamoL [Robaxin-750] 750 mg PO BID PRN 09/20/22 01/30/23 History Aspirin 81 mg PO DAILY@1600 01/21/23 01/30/23 History Atorvastatin [Lipitor] 80 mg PO DAILY@1800 01/21/23 01/30/23 History Clopidogrel [Plavix] 75 mg PO DAILY@1600 01/21/23 01/30/23 History Doxazosin [Cardura] 4 mg PO BID 01/21/23 01/30/23 History Fluticasone Propion/Salmeterol 1 puff INHALATION RT-BID 01/21/23 01/30/23 History [Wixela 250-50 Inhub] Metoprolol Tartrate [Lopressor] 50 mg PO BID@0600,1800 01/21/23 01/30/23 History Nitroglycerin Sl Tabs [Nitrostat] 0.4 mg SUBLINGUAL Q5M PRN 01/21/23 01/30/23 History Budesonide-Formot 160-4.5 Mcg 1 puff INHALATION RT-BID 30 Days 01/23/23 01/30/23 Rx [Symbicort 160-4.5 Mcg Inhaler] #1 each Isosorbide Mononitrate ER [Imdur] 30 mg PO DAILY 30 Days #30 tab 02/01/23 Rx lisinopriL [Zestril] 10 mg PO DAILY 30 Days #30 tab 02/01/23 Rx Cephalexin [Keflex] 500 mg PO Q6HR 5 Days #20 cap 03/07/23 Rx Allergies Allergy/AdvReac Type Severity Reaction Status Date / Time baclofen AdvReac "too Verified 02/23/24 11:12 strong/sedated" hydromorphone [From Dilaudid] AdvReac Hallucinati Verified 02/23/24 11:12 ons morphine AdvReac Hallucinati Verified 02/23/24 11:12 ons tramadol AdvReac Hallucinati Verified 02/23/24 11:12 ons Physical Exam Vitals: Vital Signs Temp Pulse Resp BP Pulse Ox 02/23/24 12:27 64 18 178/83 96 02/23/24 11:08 97.7 F 68 18 178/86 100 Intake and Output 02/22/24 02/23/24 02/23/24 22:59 06:59 14:59 Other: Weight 63.503 kg Results CBC & Chem 7: 02/23/24 11:28 02/23/24 11:28 Labs: Abnormal Lab Results - Last 24 Hours (Table) 02/23/24 02/23/24 02/23/24 Range/Units 11:28 11:28 11:28 RBC 2.89 L (4.30-5.90) m/uL Hgb 9.1 L (13.0-17.5) gm/dL Hct 28.3 L (39.0-53.0) % RDW 16.5 H (11.5-15.5) % Lymphocytes # 0.8 L (1.0-4.8) k/uL BUN 54 H (9-20) mg/dL Creatinine 10.61 H* (0.66-1.25) mg/dL Glucose 110 H (74-99) mg/dL Troponin I 0.040 H* (0.000-0.034) ng/mL Total Protein 6.0 L (6.3-8.2) g/dL
[2024-02-24 10:10] LABS: Anisocytosis Slight; Basophils # (A) 0.1 k/uL (0-0.2); Basophils % (A) 1 %; Eosinophils # (A) 0.1 k/uL (0-0.7); Eosinophils % (A) 2 %; HCT 26.8 % (39.0-53.0); HGB 8.3 gm/dL (13.0-17.5); Hypochromasia Moderate; Lymphocytes # (A) 0.8 k/uL (1.0-4.8); Lymphocytes % (A) 11 %; MCHC 30.8 g/dL (31.0-37.0); MCV 100.5 fL (80.0-100.0); Macrocytosis Slight; Mean Platelet Volume 8.2; Monocytes # (A) 0.4 k/uL (0-1.0); Monocytes % (A) 6 %; Neutrophils # (A) 5.8 k/uL (1.3-7.7); Neutrophils % (A) 80 %; Platelet Count 172 k/uL (150-450); RBC 2.67 m/uL (4.30-5.90); RDW 16.3 % (11.5-15.5); WBC 7.3 k/uL (3.8-10.6)
[2024-02-24 11:09] LABS: Chol/HDL Ratio 2.23 Ratio; LDL Cholesterol,Calculated 34.4 mg/dL (0.0-131.0)
--- NOTE | 2024-02-24 11:47 | P.PN ---
Subjective Progress Note Date: 02/24/24 patient is a 53-year-old gentleman with past medical history significant for end-stage renal disease on dialysis, coronary artery disease who presented to the ER because of chest pain. Patient stated that he was all right this morning when around 9 AM he was woken up from sleep because of chest pain that was central in location, chest pain was pressure-like, nonradiating, no aggravating or relieving factor associated chest pain. There was no complaint of shortness of breath. There is no complaint of palpitation. Patient denies any orthopnea or PND. There is no complaint of swelling of feet .because of chest pain, patient sided to come to the ER Initial lab work done in the ER showed WBC 7.1, hemoglobin 9.1, platelet count 189, sodium 142, potassium 4.5, BUN 54, creatinine 10.61, troponin 0.040 EKG done in the ER showed heart rate of 63, MD 132, QRS 96,, no ST segment elevation or depression seen, no T-wave inversions seen. Chest x-ray done in the ER showed scattered airspace opacities: For pulmonary vascular congestion versus atypical pneumonia Patient admitted to internal medicine service 02/23. Patient seen and examined. Any chest pain. No complaint of shortness of breath. Patient supposed to get dialysis today. REVIEW OF SYSTEMS: CONSTITUTIONAL: No fever, no malaise,. CARDIOVASCULAR: No chest pain, no palpitations, no syncope. PULMONARY: No shortness of breath, no cough, GASTROINTESTINAL: No diarrhea, no nausea, no vomiting, no abdominal pain. NEUROLOGICAL: No headaches, no weakness, PHYSICAL EXAMINATION: GENERAL: The patient is alert and oriented x3, not in any acute distress. Well developed, well nourished. HEENT: Pupils are round and equally reacting to light. EOMI. No scleral icterus. No conjunctival pallor. Normocephalic, atraumatic. No pharyngeal erythema. No thyromegaly. CARDIOVASCULAR: S1 and S2 present. No murmurs, rubs, or gallops. PULMONARY: Chest is clear to auscultation, no wheezing or crackles. ABDOMEN: Soft, nontender, nondistended, normoactive bowel sounds. No palpable organomegaly. MUSCULOSKELETAL: No joint swelling or deformity. EXTREMITIES: No cyanosis, clubbing, or pedal edema. NEUROLOGICAL: Gross neurological examination did not reveal any focal deficits. SKIN: No rashes. 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 Continue same treatment. Continue with symptomatic treatment. Resume home medication. Monitor labs and vitals. DVT and GI prophylaxis. Further recommendations as per clinical course of the patient Dictation was produced using [employer] dictation software. please excuse any grammatical, word or spelling errors. Objective - Vital Signs Vital signs: Vital Signs Temp 98 F 02/24/24 08:25 Pulse 64 02/24/24 08:25 Resp 17 02/24/24 08:25 BP 191/88 02/24/24 08:25 Pulse Ox 95 02/24/24 08:25 FiO2 Intake & Output 02/23/24 02/24/24 02/24/24 18:59 06:59 18:59 Intake Total 5 10 Balance 5 10 Weight 63.503 kg 62.5 kg Intake: IV 5 10 Invasive Line 1 5 10 Other: # Voids 1 - Labs CBC & Chem 7: 02/24/24 07:49 02/23/24 11:28 Labs: Abnormal Lab Results - Last 24 Hours (Table) 02/23/24 02/23/24 02/23/24 Range/Units 11:28 11:28 11:28 RBC 2.89 L (4.30-5.90) m/uL Hgb 9.1 L (13.0-17.5) gm/dL Hct 28.3 L (39.0-53.0) % RDW 16.5 H (11.5-15.5) % Lymphocytes # 0.8 L (1.0-4.8) k/uL BUN 54 H (9-20) mg/dL Creatinine 10.61 H* (0.66-1.25) mg/dL Glucose 110 H (74-99) mg/dL Troponin I 0.040 H* (0.000-0.034) ng/mL Total Protein 6.0 L (6.3-8.2) g/dL 02/23/24 02/23/24 Range/Units 15:32 18:37 RBC (4.30-5.90) m/uL Hgb (13.0-17.5) gm/dL Hct (39.0-53.0) % RDW (11.5-15.5) % Lymphocytes # (1.0-4.8) k/uL BUN (9-20) mg/dL Creatinine (0.66-1.25) mg/dL Glucose (74-99) mg/dL Troponin I 0.036 H* 0.035 H* (0.000-0.034) ng/mL Total Protein (6.3-8.2) g/dL
--- NOTE | 2024-02-24 11:47 | P.NPCON ---
History of Present Illness - Reason for Consult end stage renal disease - History of Present Illness Reason for consultation: End-stage renal disease History of present illness: Patient is a 53-year-old male seen in renal consultation for end-stage renal disease. He is maintained on hemodialysis on Saturday schedule via right upper extremity AV fistula. Patient came to the hospital due to sudden onset chest palpitations which began in the middle of the night. Currently he denies any chest pain or shortness of breath. Palpitations have also resolved. Patient wears oxygen at home and is currently on 2 L nasal cannula. He is scheduled to undergo dialysis today. Last dialysis was on Saturday. Patient does have history of coronary artery disease with a cardiac stent. He denies history of diabetes. Patient does have history of hypertension. No fever or chills. No vomiting or diarrhea. Chest x-ray suggestive of vascular congestion. Patient also has history of seizures. Vital signs are stable. General: No acute distress. HEENT: Head exam is unremarkable. On nasal cannula. LUNGS: No audible rhonchi or wheezes. HEART: Rate and Rhythm are regular. ABDOMEN: Nontender. EXTREMITITES: No edema. 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 eye injection with steroid on 04/04 for eye "stroke" , history of left-sided thoracentesis in January 2018, lungs tapped Past Anesthesia/Blood Transfusion Reactions: No Reported Reaction Additional Past Anesthesia/Blood Transfusion Reaction / Comment(s): Pt has received blood in past without reaction. Date of Last Stent Placement:: 2021 Past Psychological History: No Psychological Hx Reported Smoking Status: Current every day smoker Past Alcohol Use History: None Reported Past Drug Use History: None Reported - Past Family History Father Family Medical History: Cancer, CVA/TIA, Myocardial Infarction ([place]) Additional Family Medical History / Comment(s): Father had lymphoma. He had a CVA. Mother Family Medical History: CVA/TIA Additional Family Medical History / Comment(s): Mother had a CVA. Sister(s) Additional Family Medical History / Comment(s): Patient has 5 sisters one has from an aneurysm in the brain. 2 sisters have history of kidney stones. Patient has one brother that was shot as cause of , he was on the kidney transplant list. Patient has 6 children with no major medical problems. Medications and Allergies Home Medications Medication Instructions Recorded Confirmed Type Sevelamer [Renvela] 800 mg PO TID-W/MEALS 06/16/19 02/23/24 History Pantoprazole [Protonix] 40 mg PO BID 04/08/20 02/23/24 History hydrALAZINE HCL [Apresoline] 100 mg PO TID 04/08/20 02/23/24 History amLODIPine [Norvasc] 5 mg PO BID 05/30/20 02/23/24 History Calcium Acetate [PhosLo] 667 mg PO TID-W/MEALS 12/15/20 02/23/24 History levETIRAcetam [Keppra] 1,000 mg PO BID 09/20/22 02/23/24 History Atorvastatin [Lipitor] 80 mg PO DAILY 01/21/23 02/23/24 History Clopidogrel [Plavix] 75 mg PO DAILY 01/21/23 02/23/24 History Doxazosin [Cardura] 4 mg PO BID 01/21/23 02/23/24 History Metoprolol Tartrate [Lopressor] 50 mg PO BID 01/21/23 02/23/24 History Isosorbide Mononitrate ER [Imdur] 30 mg PO DAILY 30 Days #30 tab 02/01/23 02/23/24 Rx lisinopriL [Zestril] 10 mg PO DAILY 30 Days #30 tab 02/01/23 02/23/24 Rx cloNIDine HCL [Catapres] 0.3 mg PO DAILY PRN 02/23/24 02/23/24 History Allergies Allergy/AdvReac Type Severity Reaction Status Date / Time baclofen AdvReac "too Verified 02/23/24 15:44 strong/sedated" hydromorphone [From Dilaudid] AdvReac Hallucinati Verified 02/23/24 15:44 ons morphine AdvReac Hallucinati Verified 02/23/24 15:44 ons tramadol AdvReac Hallucinati Verified 02/23/24 15:44 ons Physical Exam Vitals: Vital Signs Temp Pulse Pulse Pulse Resp BP BP 02/24/24 08:25 98 F 64 17 191/88 02/24/24 04:00 67 16 189/93 02/24/24 00:00 98.3 F 64 16 185/83 02/23/24 20:00 98.6 F 61 16 189/89 02/23/24 18:18 97.7 F 60 18 181/80 02/23/24 17:25 97.8 F 57 L 18 173/91 02/23/24 16:31 183/93 02/23/24 14:30 54 L 18 153/74 02/23/24 12:27 64 18 178/83 Pulse Ox 02/24/24 08:25 95 02/24/24 04:00 97 02/24/24 00:00 98 02/23/24 20:00 97 02/23/24 18:18 100 02/23/24 17:25 100 02/23/24 16:31 02/23/24 14:30 99 02/23/24 12:27 96 Intake and Output 02/23/24 02/24/24 02/24/24 22:59 06:59 14:59 Intake Total 15 120 Balance 15 120 Intake: IV 15 Invasive Line 1 15 Oral 120 Other: # Voids 1 0 # Bowel Movements 0 Weight 63.503 kg 62.5 kg Results - Lab Results Most recent lab results Calcium 9.0 mg/dL (8.4-10.2) 02/23/24 11:28 Magnesium 1.6 mg/dL (1.6-2.3) 02/23/24 11:28 02/24/24 07:49 02/23/24 11:28 Assessment and Plan Plan: Assessment: 1. End-stage renal disease maintained on hemodialysis on Saturday schedule. 2. Hypertension with chronic kidney disease. 3. Anemia of chronic kidney disease. 4. Chest palpitations, rule out acute coronary syndrome. Cardiology consulted. 5. Chronic systolic CHF ejection fraction of 45 to 50%. 6. 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 7. Coronary artery disease with cardiac stent. Plan: Hemodialysis today. Check iron studies. Home antihypertensives resumed. Increased dose of Cardura. Follow-up echocardiogram. Thank you for the consultation. I will continue to follow the patient with you during his hospital stay.
--- NOTE | 2024-02-24 11:54 | P.CRDCN ---
History of Present Illness Consult date: 02/24/24 Consult reason: chest pain (ON HEMODIALYSIS) History of present illness: History of present illness: This is a 53-year-old male patient of Dr. Mayorga with past medical history of coronary artery disease status post PCTA distal LM after stent placement was unsuccessful, hypertension, dyslipidemia, end-stage renal disease on hemodialysis, paroxysmal atrial fibrillation. 1 g we have been asked to evaluate the patient for chest pain. Patient states that he had a pulsating sensation or thumping sensation in his chest. He denies it going fast did seem to be slow and woke him from sleep. He also had lightheadedness and dizziness. Sensation lasted for about 1 minute. He denies actual chest pain or discomfort. He states he has been taking all of his medications as directed. EKG sinus rhythm, LVH WBC 7.3, hemoglobin 8.3, platelet count 172. Sodium 142, potassium 4.5, BUN 54 creatinine 10.6. Troponin 0.04, 0.036 and 0.035. Total protein 6. Liver function test are normal. Magnesium 1.6. Triglycerides 70, cholesterol 88, LDL 34, HDL 39.5. Home cardiac medications: Amlodipine 5 mg twice daily, atorvastatin 80 mg daily, clonidine 0.3 mg daily as needed, Plavix 75 mg daily, Cardura 4 mg twice daily, hydralazine 100 mg 3 times daily, Imdur 30 mg daily, lisinopril 10 mg daily, metoprolol tartrate 50 mg twice daily. Review Of Systems: At the time of my exam: CONSTITUTIONAL: Denies fever or chills. HEENT: Denies blurred vision, vision changes, or eye pain. Denies hemoptysis CARDIOVASCULAR: Denies chest pain. Denies orthopnea. Denies PND. Denies palpitations RESPIRATORY: Denies shortness of breath. GASTROINTESTINAL: Denies abdominal pain. Denies nausea or vomiting. HEMATOLOGIC: Denies bleeding disorders. GENITOURINARY: Denies any blood in urine. SKIN: Denies pruitis. Denies rash. Physical examination: Gen: This is a 53-year-old male resting in bed in no acute distress VS: reviewed blood pressure 191/88, heart rate 64, pulse ox 95% on 2 L nasal cannula. HEENT: Head is atraumatic, normocephalic. Pupils equal, round. Sclerae is anicteric. NECK: Supple. No JVD. LUNGS: Clear to auscultation. No wheezes or rhonchi. No intercostal retractions. HEART: Regular rate and rhythm. 2/6 systolic ejection murmur at the base. ABDOMEN: Soft No tenderness. EXTREMITIES: No pedal edema. No calf tenderness. NEUROLOGICAL: Patient is awake, alert and oriented x3. Assessment: Flat troponins not indicative of acute coronary syndrome Pulsating sensation in his chest Accelerated hypertension Ischemic cardiomyopathy History of coronary artery disease status post PCTA of distal LM lesion after unsuccessful stent placement Dyslipidemia Paroxysmal atrial fibrillation End-stage renal disease on hemodialysis Plan: Resume patient's home cardiac medications Discontinue Lopressor and start patient on Coreg 6.25 mg twice daily for better blood pressure control Continue telemetry monitoring Monitor blood pressure closely Discontinue Catapres Obtain 2-D echocardiogram and Doppler study to assess cardiac structure and fun ction Further recommendations to follow based upon clinical course Thank you kindly for this consultation. Nurse practitioner note has been reviewed, I agree with documented findings and plan of care. Patient was seen and examined. 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 eye injection with steroid on 04/04 for eye "stroke" , history of left-sided thoracentesis in January 2018, lungs tapped Past Anesthesia/Blood Transfusion Reactions: No Reported Reaction Additional Past Anesthesia/Blood Transfusion Reaction / Comment(s): Pt has received blood in past without reaction. Date of Last Stent Placement:: 2021 Smoking Status: Current every day smoker - Past Family History Father Family Medical History: Cancer, CVA/TIA, Myocardial Infarction ([place]) Additional Family Medical History / Comment(s): Father had lymphoma. He had a CVA. Mother Family Medical History: CVA/TIA Additional Family Medical History / Comment(s): Mother had a CVA. Sister(s) Additional Family Medical History / Comment(s): Patient has 5 sisters one has from an aneurysm in the brain. 2 sisters have history of kidney stones. Patient has one brother that was shot as cause of , he was on the kidney transplant list. Patient has 6 children with no major medical problems. Medications and Allergies Home Medications Medication Instructions Recorded Confirmed Type Sevelamer [Renvela] 800 mg PO TID-W/MEALS 06/16/19 02/23/24 History Pantoprazole [Protonix] 40 mg PO BID 04/08/20 02/23/24 History hydrALAZINE HCL [Apresoline] 100 mg PO TID 04/08/20 02/23/24 History amLODIPine [Norvasc] 5 mg PO BID 05/30/20 02/23/24 History Calcium Acetate [PhosLo] 667 mg PO TID-W/MEALS 12/15/20 02/23/24 History levETIRAcetam [Keppra] 1,000 mg PO BID 09/20/22 02/23/24 History Atorvastatin [Lipitor] 80 mg PO DAILY 01/21/23 02/23/24 History Clopidogrel [Plavix] 75 mg PO DAILY 01/21/23 02/23/24 History Doxazosin [Cardura] 4 mg PO BID 01/21/23 02/23/24 History Metoprolol Tartrate [Lopressor] 50 mg PO BID 01/21/23 02/23/24 History Isosorbide Mononitrate ER [Imdur] 30 mg PO DAILY 30 Days #30 tab 02/01/23 02/23/24 Rx lisinopriL [Zestril] 10 mg PO DAILY 30 Days #30 tab 02/01/23 02/23/24 Rx cloNIDine HCL [Catapres] 0.3 mg PO DAILY PRN 02/23/24 02/23/24 History Allergies Allergy/AdvReac Type Severity Reaction Status Date / Time baclofen AdvReac "too Verified 02/23/24 15:44 strong/sedated" hydromorphone [From Dilaudid] AdvReac Hallucinati Verified 02/23/24 15:44 ons morphine AdvReac Hallucinati Verified 02/23/24 15:44 ons tramadol AdvReac Hallucinati Verified 02/23/24 15:44 ons Physical Exam Vitals: Vital Signs Temp Pulse Pulse Pulse Resp BP BP 02/24/24 04:00 67 16 189/93 02/24/24 00:00 98.3 F 64 16 185/83 02/23/24 20:00 98.6 F 61 16 189/89 02/23/24 18:18 97.7 F 60 18 181/80 02/23/24 17:25 97.8 F 57 L 18 173/91 02/23/24 16:31 183/93 02/23/24 14:30 54 L 18 153/74 02/23/24 12:27 64 18 178/83 02/23/24 11:08 97.7 F 68 18 178/86 Pulse Ox 02/24/24 04:00 97 02/24/24 00:00 98 02/23/24 20:00 97 02/23/24 18:18 100 02/23/24 17:25 100 02/23/24 16:31 02/23/24 14:30 99 02/23/24 12:27 96 02/23/24 11:08 100 Intake and Output 02/23/24 02/24/24 02/24/24 22:59 06:59 14:59 Intake Total 15 Balance 15 Intake: IV 15 Invasive Line 1 15 Other: # Voids 1 Weight 63.503 kg 62.5 kg Results 02/24/24 07:49 02/23/24 11:28 Cardiac Enzymes 02/23/24 02/23/24 02/23/24 Range/Units 11:28 11:28 15:32 AST 20 (17-59) U/L Troponin I 0.040 H* 0.036 H* (0.000-0.034) ng/mL 02/23/24 Range/Units 18:37 AST (17-59) U/L Troponin I 0.035 H* (0.000-0.034) ng/mL Coagulation 02/23/24 Range/Units 11:28 PT 11.8 (10.0-12.5) sec APTT 28.6 (22.0-30.0) sec CBC 02/23/24 Range/Units 11:28 WBC 7.1 (3.8-10.6) k/uL RBC 2.89 L (4.30-5.90) m/uL Hgb 9.1 L (13.0-17.5) gm/dL Hct 28.3 L (39.0-53.0) % Plt Count 189 (150-450) k/uL Comprehensive Metabolic Panel 02/23/24 Range/Units 11:28 Sodium 142 (137-145) mmol/L Potassium 4.5 (3.5-5.1) mmol/L Chloride 103 (98-107) mmol/L Carbon Dioxide 25 (22-30) mmol/L BUN 54 H (9-20) mg/dL Creatinine 10.61 H* (0.66-1.25) mg/dL Glucose 110 H (74-99) mg/dL Calcium 9.0 (8.4-10.2) mg/dL AST 20 (17-59) U/L ALT 11 (4-49) U/L Alkaline Phosphatase 83 (38-126) U/L Total Protein 6.0 L (6.3-8.2) g/dL Albumin 3.5 (3.5-5.0) g/dL Current Medications Generic Name Dose Route Start Last Admin Trade Name Freq PRN Reason Stop Dose Admin Amlodipine Besylate 5 mg 02/23/24 21:00 02/24/24 08:26 Amlodipine 5 Mg Tab PO 5 mg BID [facility] Administration Aspirin 325 mg 02/24/24 09:00 02/24/24 08:26 Aspirin 325 Mg Tab PO 325 mg DAILY [facility] Administration Atorvastatin Calcium 80 mg 02/24/24 09:00 02/24/24 08:26 Atorvastatin 80 Mg Tab PO 80 mg DAILY [facility] Administration Calcium Acetate 667 mg 02/24/24 07:30 Calcium Acetate 667 Mg Tab PO TID-W/MEALS [facility] Carvedilol 6.25 mg 02/24/24 17:30 Carvedilol 6.25 Mg Tab PO BID-W/MEALS [facility] Clopidogrel Bisulfate 75 mg 02/24/24 09:00 02/24/24 08:26 Clopidogrel 75 Mg Tab PO 75 mg DAILY [facility] Administration Doxazosin Mesylate 4 mg 02/23/24 21:00 02/24/24 08:26 Doxazosin 4 Mg Tab PO 4 mg BID [facility] Administration Hydralazine HCl 100 mg 02/23/24 22:00 02/24/24 08:26 Hydralazine Hcl 50 Mg Tab PO 100 mg TID [facility] Administration Isosorbide Mononitrate 30 mg 02/24/24 09:00 02/24/24 08:26 Isosorbide Mononitrate Er 30 Mg Tab.Er.24h PO 30 mg DAILY [facility] Administration Levetiracetam 1,000 mg 02/23/24 21:00 02/24/24 08:26 Levetiracetam 500 Mg Tab PO 1,000 mg BID [facility] Administration Lisinopril 10 mg 02/24/24 09:00 02/24/24 08:26 Lisinopril 10 Mg Tab PO 10 mg DAILY [facility] Administration Nitroglycerin 0.4 mg 02/23/24 14:03 Nitroglycerin Sl Tabs 0.4 Mg Tab SUBLINGUAL Q5M PRN Chest Pain Nitroglycerin 1 inch 02/23/24 18:00 02/24/24 05:34 Nitroglycerin Oint 1 Inch/Gm Packet TOPICAL Not Given Q6HR [facility] Pantoprazole Sodium 40 mg 02/23/24 21:00 02/24/24 05:47 Pantoprazole 40 Mg Tablet PO 40 mg AC-BID [facility] Administration Sevelamer Carbonate 800 mg 02/24/24 07:30 Sevelamer 800 Mg Tab PO TID-W/MEALS [facility] Intake and Output 02/23/24 02/24/24 02/24/24 22:59 06:59 14:59 Intake Total 15 Balance 15 Intake: IV 15 Invasive Line 1 15 Other: # Voids 1 Weight 63.503 kg 62.5 kg 02/23/24 11:28 02/23/24 11:28
[2024-02-24 12:25] LABS: ALT 11 U/L (4-49); AST 19 U/L (17-59); African American GFR (CKD) 5 (>60 ml/min/1.73 sqM); Albumin 3.2 g/dL (3.5-5.0); Alkaline Phosphatase 83 U/L (38-126); Anion Gap 13 mmol/L; Blood Urea Nitrogen 72 mg/dL (9-20); Calcium 8.4 mg/dL (8.4-10.2); Carbon Dioxide 24 mmol/L (22-30); Chloride 104 mmol/L (98-107); Glucose 97 mg/dL (74-99); Non-African American GFR(CKD) 4 (>60 ml/min/1.73 sqM); Potassium 5.6 mmol/L (3.5-5.1); Sodium 141 mmol/L (137-145); Total Bilirubin 0.5 mg/dL (0.2-1.3); Total Protein 5.6 g/dL (6.3-8.2)
--- NOTE | 2024-02-24 12:31 | CA ---
Transthoracic Echo Report Name: Jose Eng Age: 53 Gender: M : 1970 Exam Date: 02/24/2024 08:08 Exam Location: [facility] Ht (in): 64 Wt (lb): 140 Ordering Physician: Austin Garsia MD Attending/Referring Phys: Beater Room Helper Mavis Mclean RCS Procedure CPT: Indications: Chest Pain Cardiac Hx: Technical Quality: Good Contrast 1: Total Dose (mL): Contrast 2: Total Dose (mL): MEASUREMENTS (Male / Female) Normal Values 2D ECHO LV Diastolic Diameter PLAX 5.4 cm 4.2 - 5.9 / 3.9 - 5.3 cm LV Systolic Diameter PLAX 4.0 cm IVS Diastolic Thickness 1.4 cm 0.6 - 1.0 / 0.6 - 0.9 cm LVPW Diastolic Thickness 1.3 cm 0.6 - 1.0 / 0.6 - 0.9 cm LV Relative Wall Thickness 0.5 RV Internal Dim ED PLAX 3.5 cm LVOT Diameter 2.1 cm Aortic Root Diameter 3.1 cm LV Diastolic Volume MOD BP 185.8 cm??? 67 - 155 / 56 - 104 cm??? LV Systolic Volume MOD BP 102.8 cm??? 22 - 58 / 19 - 49 cm??? LV Ejection Fraction MOD BP 44.7 % >= 55 % LV Cardiac Index MOD BP 3563.2 cm???/min???m??? LV Diastolic Volume MOD 4C 173.1 cm??? LV Systolic Volume MOD 4C 96.1 cm??? LV Ejection Fraction MOD 4C 44.5 % LV Cardiac Index MOD 4C 3301.5 cm???/min???m??? LV Diastolic Length 4C 11.4 cm LV Systolic Length 4C 10.1 cm LV Diastolic Volume MOD 2C 195.3 cm??? LV Systolic Volume MOD 2C 106.5 cm??? LV Ejection Fraction MOD 2C 45.4 % LV Cardiac Index MOD 2C 3806.4 cm???/min???m??? LV Diastolic Length 2C 11.1 cm LV Systolic Length 2C 9.5 cm Ascending Aorta Diameter 3.1 cm DOPPLER AV Peak Velocity 233.0 cm/s AV Peak Gradient 21.7 mmHg AV Mean Velocity 148.5 cm/s AV Mean Gradient 10.5 mmHg AV Velocity Time Integral 51.5 cm LVOT Peak Velocity 141.8 cm/s LVOT Peak Gradient 8.0 mmHg LVOT Velocity Time Integral 31.6 cm LVOT Stroke Volume 109.5 cm??? LVOT Stroke Volume Index 65.1 ml/m??? LVOT Cardiac Index 4695.9 cm???/min???m??? AV Area Cont Eq vti 2.1 cm??? AV Area Cont Eq pk 2.1 cm??? Mitral E Point Velocity 104.2 cm/s Mitral A Point Velocity 88.4 cm/s Mitral E to A Ratio 1.2 MV Deceleration Time 213.1 ms MV E' Velocity 5.6 cm/s Mitral E to MV E' Ratio 18.5 PV Peak Velocity 114.6 cm/s PV Peak Gradient 5.3 mmHg FINDINGS Left Ventricle Left ventricular ejection fraction is estimated at 50 %. Mildly increased septal wall thickness. Moderately increased left ventricular diastolic volume. Mildly decreased systolic function with inferobasal hypokinesia Right Ventricle Mild right ventricular dilatation with normal function. Unable to estimate right ventricular systolic function. Right Atrium Normal right atrial size. Left Atrium Normal left atrial size. Mitral Valve Structurally normal mitral valve. No mitral stenosis. No evidence for mitral valve prolapse. Trace mitral regurgitation. Aortic Valve Trileaflet aortic valve. Mild aortic stenosis with a peak gradient of 22mmHg and a mean gradient of 11mmHg. No aortic regurgitation. Tricuspid Valve Structurally normal tricuspid valve. No tricuspid stenosis. Trace tricuspid regurgitation. Pulmonic Valve Structurally normal pulmonic valve. No pulmonic stenosis. No pulmonic regurgitation. Pericardium No pericardial effusion. Aorta Normal size aortic root and proximal ascending aorta. CONCLUSIONS LV size is normal there is mild concentric LVH inferobasal hypokinesia ejection fraction of nearly 50%. Right ventricle is enlarged. Mild mitral and tricuspid regurgitation mild gradient across aortic valve possibly 6 mild stenosis with a mean gradient of about 10-15 mmHg. No pericardial effusion Previewed by: Dr. Antoni Edge MD (Electronically Signed) Final Date: 24 February 2024 12:30
[2024-02-24 18:50] LABS: % Iron Saturation 21.02 (15.00-50.00)
[2024-02-24] MEDS: carvediloL 6.25 MG TAB PO SCH (19:04)
[2024-02-24] MEDS: DOXAZOSIN 4 MG TAB PO SCH (20:14)
[2024-02-25 08:14] LABS: Anisocytosis Slight; Basophils # (A) 0.1 k/uL (0-0.2); Basophils % (A) 1 %; Eosinophils # (A) 0.1 k/uL (0-0.7); Eosinophils % (A) 2 %; HCT 28.4 % (39.0-53.0); HGB 8.7 gm/dL (13.0-17.5); Hypochromasia Slight; Lymphocytes # (A) 0.7 k/uL (1.0-4.8); Lymphocytes % (A) 11 %; MCH 30.8 pg (25.0-35.0); MCHC 30.8 g/dL (31.0-37.0); Macrocytosis Slight; Mean Platelet Volume 7.8; Monocytes # (A) 0.4 k/uL (0-1.0); Monocytes % (A) 6 %; Neutrophils # (A) 5.3 k/uL (1.3-7.7); Neutrophils % (A) 78 %; Platelet Count 188 k/uL (150-450); Poikilocytosis Slight; RBC 2.84 m/uL (4.30-5.90); RDW 16.3 % (11.5-15.5); WBC 6.7 k/uL (3.8-10.6)
[2024-02-25 08:25] VITALS: BP 190/88; PULSE 71; RESP 16; TEMP 98.2
--- NOTE | 2024-02-25 09:22 | P.PN ---
Subjective Patient is seen in follow-up for end-stage renal disease. He is maintained on hemodialysis on Saturday schedule. Denies chest pain or shortness of breath. No problems with dialysis yesterday. Vital signs are stable. General: No acute distress. HEENT: Head exam is unremarkable. On nasal cannula. LUNGS: No audible rhonchi or wheezes. HEART: Rate and Rhythm are regular. ABDOMEN: Nontender. EXTREMITITES: No edema. Objective - Vital Signs Vital signs: Vital Signs Temp 98.2 F 02/25/24 08:00 Pulse 71 02/25/24 08:00 Resp 16 02/25/24 08:00 BP 190/88 02/25/24 08:00 Pulse Ox 98 02/25/24 08:00 FiO2 Intake & Output 02/24/24 02/25/24 02/25/24 18:59 06:59 18:59 Intake Total 360 500 Output Total 3000 Balance 360 -2500 Intake: Oral 360 Hemodialysis 500 Output: Hemodialysis 3000 Other: # Voids 0 # Bowel Movements 0 - Labs CBC & Chem 7: 02/25/24 07:25 02/24/24 07:49 Labs: Abnormal Lab Results - Last 24 Hours (Table) 02/24/24 02/24/24 02/24/24 Range/Units 07:49 07:49 07:49 RBC 2.67 L (4.30-5.90) m/uL Hgb 8.3 L (13.0-17.5) gm/dL Hct 26.8 L (39.0-53.0) % MCV 100.5 H (80.0-100.0) fL MCHC 30.8 L (31.0-37.0) g/dL RDW 16.3 H (11.5-15.5) % Lymphocytes # 0.8 L (1.0-4.8) k/uL Potassium 5.6 H (3.5-5.1) mmol/L BUN 72 H (9-20) mg/dL Creatinine 12.30 H* (0.66-1.25) mg/dL Iron (65-175) UG/DL TIBC (228-460) UG/DL Transferrin (204.0-354.0) mg/dL Ferritin (22.0-322.0) ng/mL Total Protein 5.6 L (6.3-8.2) g/dL Albumin 3.2 L (3.5-5.0) g/dL HDL Cholesterol 39.50 L (40.00-60.00) mg/dL 02/24/24 02/25/24 Range/Units 07:49 07:25 RBC 2.84 L (4.30-5.90) m/uL Hgb 8.7 L (13.0-17.5) gm/dL Hct 28.4 L (39.0-53.0) % MCV (80.0-100.0) fL MCHC 30.8 L (31.0-37.0) g/dL RDW 16.3 H (11.5-15.5) % Lymphocytes # 0.7 L (1.0-4.8) k/uL Potassium (3.5-5.1) mmol/L BUN (9-20) mg/dL Creatinine (0.66-1.25) mg/dL Iron 33 L (65-175) UG/DL TIBC 157 L (228-460) UG/DL Transferrin 112.0 L (204.0-354.0) mg/dL Ferritin 834.0 H (22.0-322.0) ng/mL Total Protein (6.3-8.2) g/dL Albumin (3.5-5.0) g/dL HDL Cholesterol (40.00-60.00) mg/dL Assessment and Plan Plan: Assessment: 1. End-stage renal disease maintained on hemodialysis on Saturday F riday schedule. 2. Hypertension with chronic kidney disease. 3. Anemia of chronic kidney disease. Mild iron deficiency noted. 4. Chest palpitations, rule out acute coronary syndrome. Cardiology consulted. 5. Chronic systolic CHF ejection fraction of 45 to 50%. 6. 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 7. Coronary artery disease with cardiac stent. Plan: Hemodialysis tomorrow. IV iron x 1 dose today. Add Aranesp. Increased dose of Coreg. Preserved EF noted on echocardiogram.
[2024-02-25 09:55] LABS: ALT 11 U/L (4-49); AST 19 U/L (17-59); African American GFR (CKD) 8 (>60 ml/min/1.73 sqM); Albumin 3.4 g/dL (3.5-5.0); Alkaline Phosphatase 103 U/L (38-126); Anion Gap 9 mmol/L; Blood Urea Nitrogen 40 mg/dL (9-20); Calcium 8.5 mg/dL (8.4-10.2); Carbon Dioxide 31 mmol/L (22-30); Chloride 98 mmol/L (98-107); Glucose 94 mg/dL (74-99); Non-African American GFR(CKD) 7 (>60 ml/min/1.73 sqM); Potassium 4.4 mmol/L (3.5-5.1); Sodium 138 mmol/L (137-145); Total Bilirubin 0.6 mg/dL (0.2-1.3); Total Protein 6.1 g/dL (6.3-8.2)
[2024-02-25] MEDS: SODIUM FERRIC GLUCONAT-SUCROSE 125 MG in SODIUM CHLORIDE 0.9% 100 ML IVPB ONE (10:25)
[2024-02-25] MEDS: DARBEPOETIN ALFA 40 MCG/0.4 ML SYRINGE SQ SCH (11:05)
--- NOTE | 2024-02-25 15:25 | P.PN ---
Subjective Progress Note Date: 02/25/24 Consult reason: chest pain (ON HEMODIALYSIS) History of present illness: History of present illness: This is a 53-year-old male patient of Dr. Mayorga with past medical history of coronary artery disease status post PCTA distal LM after stent placement was unsuccessful, hypertension, dyslipidemia, end-stage renal disease on hemodialysis, paroxysmal atrial fibrillation. 1 g we have been asked to evaluate the patient for chest pain. Patient states that he had a pulsating sensation or thumping sensation in his chest. He denies it going fast did seem to be slow and woke him from sleep. He also had lightheadedness and dizziness. Sensation lasted for about 1 minute. He denies actual chest pain or discomfort. He states he has been taking all of his medications as directed. EKG sinus rhythm, LVH WBC 7.3, hemoglobin 8.3, platelet count 172. Sodium 142, potassium 4.5, BUN 54 creatinine 10.6. Troponin 0.04, 0.036 and 0.035. Total protein 6. Liver function test are normal. Magnesium 1.6. Triglycerides 70, cholesterol 88, LDL 34, HDL 39.5. Home cardiac medications: Amlodipine 5 mg twice daily, atorvastatin 80 mg daily, clonidine 0.3 mg daily as needed, Plavix 75 mg daily, Cardura 4 mg twice daily, hydralazine 100 mg 3 times daily, Imdur 30 mg daily, lisinopril 10 mg daily, metoprolol tartrate 50 mg twice daily. 02/24 Patient denies having any chest pain, he denies pulsating sensation in his chest. His blood pressure remains elevated 190/88, heart rate in the 60s and 70s, pulse ox 98% on 3 L. Patient states that his blood pressure is always high. Repeat blood work reveals hemoglobin of 8.7. Sodium 138, potassium 4.4, BUN 40 creatinine 7.82. Echocardiogram reveals EF of 50%. Mild mitral and tricuspid regurgitation mild gradient across aortic valve possibly mild stenosis with mean gradient of 10 to 15 mmHg. No pericardial effusion. Physical examination: Gen: This is a 53-year-old male resting in bed in no acute distress VS: reviewed HEENT: Head is atraumatic, normocephalic. Pupils equal, round. Sclerae is anicteric. NECK: Supple. No JVD. LUNGS: Clear to auscultation. No wheezes or rhonchi. No intercostal retract ions. HEART: Regular rate and rhythm. 2/6 systolic ejection murmur at the base. ABDOMEN: Soft No tenderness. EXTREMITIES: No pedal edema. No calf tenderness. NEUROLOGICAL: Patient is awake, alert and oriented x3. Assessment: Flat troponins not indicative of acute coronary syndrome Pulsating sensation in his chest Accelerated hypertension Ischemic cardiomyopathy History of coronary artery disease status post PCTA of distal LM lesion after unsuccessful stent placement Dyslipidemia Paroxysmal atrial fibrillation End-stage renal disease on hemodialysis Plan: Continue patient's home cardiac medications Continue Coreg 6.25 mg twice daily Discontinue Nitropaste and discontinue amlodipine Start patient on Procardia XL 60 mg daily Continue telemetry monitoring Monitor blood pressure closely Further recommendations to follow based upon clinical course Nurse practitioner note has been reviewed, I agree with documented findings and plan of care. Patient was seen and examined. Objective - Vital Signs Vital signs: Vital Signs Temp 98.2 F 02/25/24 08:00 Pulse 71 02/25/24 08:00 Resp 16 02/25/24 08:00 BP 190/88 02/25/24 08:00 Pulse Ox 98 02/25/24 08:00 FiO2 Intake & Output 02/24/24 02/25/24 02/25/24 18:59 06:59 18:59 Intake Total 360 500 240 Output Total 3000 Balance 360 -2500 240 Intake: Oral 360 240 Hemodialysis 500 Output: Hemodialysis 3000 Other: # Voids 0 # Bowel Movements 0 - Labs CBC & Chem 7: 02/25/24 07:25 02/25/24 07:25 Labs: Abnormal Lab Results - Last 24 Hours (Table) 02/24/24 02/24/24 02/24/24 Range/Units 07:49 07:49 07:49 RBC (4.30-5.90) m/uL Hgb (13.0-17.5) gm/dL Hct (39.0-53.0) % MCHC (31.0-37.0) g/dL RDW (11.5-15.5) % Lymphocytes # (1.0-4.8) k/uL Potassium 5.6 H (3.5-5.1) mmol/L Carbon Dioxide (22-30) mmol/L BUN 72 H (9-20) mg/dL Creatinine 12.30 H* (0.66-1.25) mg/dL Iron 33 L (65-175) UG/DL TIBC 157 L (228-460) UG/DL Transferrin 112.0 L (204.0-354.0) mg/dL Ferritin 834.0 H (22.0-322.0) ng/mL Total Protein 5.6 L (6.3-8.2) g/dL Albumin 3.2 L (3.5-5.0) g/dL HDL Cholesterol 39.50 L (40.00-60.00) mg/dL 02/25/24 02/25/24 Range/Units 07:25 07:25 RBC 2.84 L (4.30-5.90) m/uL Hgb 8.7 L (13.0-17.5) gm/dL Hct 28.4 L (39.0-53.0) % MCHC 30.8 L (31.0-37.0) g/dL RDW 16.3 H (11.5-15.5) % Lymphocytes # 0.7 L (1.0-4.8) k/uL Potassium (3.5-5.1) mmol/L Carbon Dioxide 31 H (22-30) mmol/L BUN 40 H (9-20) mg/dL Creatinine 7.82 H* (0.66-1.25) mg/dL Iron (65-175) UG/DL TIBC (228-460) UG/DL Transferrin (204.0-354.0) mg/dL Ferritin (22.0-322.0) ng/mL Total Protein 6.1 L (6.3-8.2) g/dL Albumin 3.4 L (3.5-5.0) g/dL HDL Cholesterol (40.00-60.00) mg/dL
[2024-02-25] MEDS ORDERED: carvediloL 12.5 MG TAB PO SCH (17:30)
--- NOTE | 2024-02-25 21:29 | P.DS ---
Providers Date of admission: 02/23/24 14:03 Attending physician: Austin Garsia MD Consults: 02/23/24 14:03 Consult Physician Urgent Consulting Provider: [facility] Consult Reason/Comments: Chest pain Do you want consulting provider notified?: Yes 02/23/24 14:22 Consult Physician Routine Consulting Provider: Maricarmen Figueroa Consult Reason/Comments: ESRD Do you want consulting provider notified?: Yes Primary care physician: Jaylen Holguin [facility] Course: Please note patient was not discharged but left AMA Diagnoses Chest pain, rule out acute coronary syndrome Elevated troponin Hypertension End-stage renal disease on hemodialysis chronic systolic and diastolic, ejection fraction 45-50% Mild thrombocytopenia Hyperlipidemia Nicotine dependence History of seizure disorder History of nephrolithiasis Chronic atrial fibrillation History of coronary artery disease status post stent History of multiple CVA with no residual weakness History of GI bleed and peptic ulcer disease History of spinal stenosis secondary to degenerative disc disease and chronic cervical and back pain Hospital course: patient is a 53-year-old gentleman with past medical history significant for end-stage renal disease on dialysis, coronary artery disease who presented to the ER because of chest pain. Patient stated that he was all right this morning when around 9 AM he was woken up from sleep because of chest pain that was central in location, chest pain was pressure-like, nonradiating, no aggravating or relieving factor associated chest pain. There was no complaint of shortness of breath. There is no complaint of palpitation. Patient denies any orthopnea or PND. There is no complaint of swelling of feet .because of chest pain, patient sided to come to the ER Initial lab work done in the ER showed WBC 7.1, hemoglobin 9.1, platelet count 189, sodium 142, potassium 4.5, BUN 54, creatinine 10.61, troponin 0.040 EKG done in the ER showed heart rate of 63, NM 132, QRS 96,, no ST segment elevation or depression seen, no T-wave inversions seen. Chest x-ray done in the ER showed scattered airspace opacities: For pulmonary vascular congestion versus atypical pneumonia Patient admitted to internal medicine service 02/23. Patient seen and examined. Any chest pain. No complaint of shortness of breath. Patient supposed to get dialysis today. 02/25/2024 patient seen and examined at bedside During the morning rounds. Patient was denied any specific symptom, he is awake alert oriented to time place and person he has insight and follow commands Patient chest pain was looking better, no other specific symptoms however bood pressure was still uncontrolled, with systolic blood pressure 1 80-1 90 After rounding I got a call from the bedside nurse that the patient is unhappy with blood pressure medication changes made by Dr. Moser records section supervisor and that he wants to leave AMA Immediately I called the patient and I discussed the case with including his uncontrolled hypertension and risks, however patient answered that his blood pressure was always been high and then he refused to continue the phone call with him, he hang up on me, saying " I am leaving, see you later" Apparently patient refused to continue discussion with him. However based upon my evaluation patient has capacity to make medical decision. Plan - Discharge Summary Discharge Rx Participant: No New Discharge Prescriptions: No Action Sevelamer [Renvela] 800 mg PO TID-W/MEALS hydrALAZINE HCL [Apresoline] 100 mg PO TID Pantoprazole [Protonix] 40 mg PO BID amLODIPine [Norvasc] 5 mg PO BID Calcium Acetate [PhosLo] 667 mg PO TID-W/MEALS Doxazosin [Cardura] 4 mg PO BID Metoprolol Tartrate [Lopressor] 50 mg PO BID Atorvastatin [Lipitor] 80 mg PO DAILY levETIRAcetam [Keppra] 1,000 mg PO BID Clopidogrel [Plavix] 75 mg PO DAILY Isosorbide Mononitrate ER [Imdur] 30 mg PO DAILY 30 Days #30 tab lisinopriL [Zestril] 10 mg PO DAILY 30 Days #30 tab cloNIDine HCL [Catapres] 0.3 mg PO DAILY PRN PRN Reason: High BP Discharge Medication List Sevelamer [Renvela] 800 mg PO TID-W/MEALS 06/16/19 [History] Pantoprazole [Protonix] 40 mg PO BID 04/08/20 [History] hydrALAZINE HCL [Apresoline] 100 mg PO TID 04/08/20 [History] amLODIPine [Norvasc] 5 mg PO BID 05/30/20 [History] Calcium Acetate [PhosLo] 667 mg PO TID-W/MEALS 12/15/20 [History] levETIRAcetam [Keppra] 1,000 mg PO BID 09/20/22 [History] Atorvastatin [Lipitor] 80 mg PO DAILY 01/21/23 [History] Clopidogrel [Plavix] 75 mg PO DAILY 01/21/23 [History] Doxazosin [Cardura] 4 mg PO BID 01/21/23 [History] Metoprolol Tartrate [Lopressor] 50 mg PO BID 01/21/23 [History] Isosorbide Mononitrate ER [Imdur] 30 mg PO DAILY 30 Days #30 tab 02/01/23 [Rx] lisinopriL [Zestril] 10 mg PO DAILY 30 Days #30 tab 02/01/23 [Rx] cloNIDine HCL [Catapres] 0.3 mg PO DAILY PRN 02/23/24 [History] Follow up Appointment(s)/Referral(s): Jaylen Holguin [Primary Care Provider] - 1-2 days Discharge Disposition: LEFT AGAINST MEDICAL ADVICE
== END 2024-02-25 11:51 | disposition left against medical advice (07) ==
LOC: EC 10:58 → 3SCARD 14:03
PROVIDERS: ADMIT Internal Medicine; ATTEND Internal Medicine
DX: R07.89 Other chest pain (principal); I13.2 Hypertensive heart and chronic kidney disease with heart failure and with stage 5 chronic kidney disease, or end stage renal disease; N18.6 End stage renal disease; I50.22 Chronic systolic (congestive) heart failure; I25.5 Ischemic cardiomyopathy; I48.0 Paroxysmal atrial fibrillation; D63.1 Anemia in chronic kidney disease; M89.8X9 Other specified disorders of bone, unspecified site; R79.89 Other specified abnormal findings of blood chemistry; E61.1 Iron deficiency; I08.1 Rheumatic disorders of both mitral and tricuspid valves; Z53.29 Procedure and treatment not carried out because of patient's decision for other reasons; I25.10 Atherosclerotic heart disease of native coronary artery without angina pectoris; D69.6 Thrombocytopenia, unspecified; E78.5 Hyperlipidemia, unspecified; G40.909 Epilepsy, unspecified, not intractable, without status epilepticus; M48.00 Spinal stenosis, site unspecified; G89.29 Other chronic pain; M54.2 Cervicalgia; M54.9 Dorsalgia, unspecified; Z99.2 Dependence on renal dialysis; F17.200 Nicotine dependence, unspecified, uncomplicated; Z79.82 Long term (current) use of aspirin; Z79.02 Long term (current) use of antithrombotics/antiplatelets; Z79.51 Long term (current) use of inhaled steroids; Z79.899 Other long term (current) drug therapy; Z88.5 Allergy status to narcotic agent; Z88.8 Allergy status to other drugs, medicaments and biological substances; Z95.5 Presence of coronary angioplasty implant and graft; Z86.73 Personal history of transient ischemic attack (TIA), and cerebral infarction without residual deficits; Z87.442 Personal history of urinary calculi; Z87.11 Personal history of peptic ulcer disease
CPT/HCPCS: 90935; 99285; 36415; 93005; 93306; 80061; 80053 ×3; 82728; 83540; 83550; 83735; 84484; 85025 ×3; 85610; 85730; 71046; G0378 ×3; J2916

== ENCOUNTER 2024-06-13 05:36 | Emergency (ER) | payer MEDICARE, BC ==
[2024-06-13 05:45] VITALS: RESP 18; TEMP 98
[2024-06-13] MEDS ORDERED: SILVER NITRATE APPLICATOR 1 EACH STICK..EA. TOPICAL STA (06:13)
[2024-06-13] MEDS: SILVER NITRATE APPLICATOR 1 EACH STICK..EA. TOPICAL STA (06:17)
[2024-06-13] MEDS: hydrALAZINE HCL 20 MG/ML 1 ML VIAL IVP STA (06:24)
--- NOTE | 2024-06-13 08:15 | ED ---
General Adult HPI - General Chief complaint: Recheck/Abnormal Lab/Rx Stated complaint: fistula Time Seen by Provider: 06/13/24 05:58 Source: patient Mode of arrival: wheelchair Limitations: no limitations - History of Present Illness Initial comments: This patient is a 54-year-old man who presents to have evaluation of of continued bleeding from his hemodialysis graft. The patient states that following his dialysis session he had some oozing from the venipuncture site. This is continued. Patient denies symptoms of anemia. No lightheadedness. No palpitations, chest pain, dyspnea. Onset/Timin -: hour(s) Severity scale (1-10): 0 Consistency: constant Improves with: none Worsens with: none Associated Symptoms: denies other symptoms Treatments Prior to Arrival: none - Related Data Home Medications Medication Instructions Recorded Confirmed Sevelamer [Renvela] 800 mg PO TID-W/MEALS 06/16/19 02/23/24 Pantoprazole [Protonix] 40 mg PO BID 04/08/20 02/23/24 hydrALAZINE HCL [Apresoline] 100 mg PO TID 04/08/20 02/23/24 amLODIPine [Norvasc] 5 mg PO BID 05/30/20 02/23/24 Calcium Acetate [PhosLo] 667 mg PO TID-W/MEALS 12/15/20 02/23/24 levETIRAcetam [Keppra] 1,000 mg PO BID 09/20/22 02/23/24 Atorvastatin [Lipitor] 80 mg PO DAILY 01/21/23 02/23/24 Clopidogrel [Plavix] 75 mg PO DAILY 01/21/23 02/23/24 Doxazosin [Cardura] 4 mg PO BID 01/21/23 02/23/24 Metoprolol Tartrate [Lopressor] 50 mg PO BID 01/21/23 02/23/24 cloNIDine HCL [Catapres] 0.3 mg PO DAILY PRN 02/23/24 02/23/24 Previous Rx's Medication Instructions Recorded Isosorbide Mononitrate ER [Imdur] 30 mg PO DAILY 30 Days #30 tab 02/01/23 lisinopriL [Zestril] 10 mg PO DAILY 30 Days #30 tab 02/01/23 Allergies Allergy/AdvReac Type Severity Reaction Status Date / Time baclofen AdvReac "too Verified 06/13/24 05:42 strong/sedated" hydromorphone [From Dilaudid] AdvReac Hallucinati Verified 06/13/24 05:42 ons morphine AdvReac Hallucinati Verified 06/13/24 05:42 ons tramadol AdvReac Hallucinati Verified 06/13/24 05:42 ons Review of Systems ROS Statement: Those systems with pertinent positive or pertinent negative responses have been documented in the HPI. ROS Other: All systems not noted in ROS Statement are negative. Constitutional: Denies: fever, chills, weakness Respiratory: Denies: cough, dyspnea Cardiovascular: Denies: chest pain, palpitations Gastrointestinal: Denies: abdominal pain, vomiting Skin: Denies: rash Neurological: Denies: headache Hematological/Lymphatic: Denies: easy bleeding Past Medical History Past Medical History: Atrial Fibrillation, Blood Disorder, Chest Pain / Angina, CVA/TIA, Dialysis, Eye Disorder, GI Bleed, Hyperlipidemia, Hypertension, Myocardial Infarction ([place]), Renal Disease, Seizure Disorder Additional Past Medical History / Comment(s): Urolithiasis/nephrolithiasis, acute hypoxic respiratory failure after missed dialysis, lower GI bleed, duodenal ulcer, seizures with last seizures 2017, 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, pericardial effusion, spinal stenosis, DDD, chronic cervical and back pain, 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 eye injection with steroid on 04/04 for eye "stroke" , history of left-sided thoracentesis in January 2018, lungs tapped Past Anesthesia/Blood Transfusion Reactions: No Reported Reaction Additional Past Anesthesia/Blood Transfusion Reaction / Comment(s): Pt has received blood in past without reaction. Date of Last Stent Placement:: 2021 Past Psychological History: No Psychological Hx Reported Smoking Status: Current every day smoker Past Alcohol Use History: None Reported Past Drug Use History: None Reported - Past Family History Father Family Medical History: Cancer, CVA/TIA, Myocardial Infarction ([place]) Additional Family Medical History / Comment(s): Father had lymphoma. He had a CVA. Mother Family Medical History: CVA/TIA Additional Family Medical History / Comment(s): Mother had a CVA. Sister(s) Additional Family Medical History / Comment(s): Patient has 5 sisters one has from an aneurysm in the brain. 2 sisters have history of kidney stones. Patient has one brother that was shot as cause of , he was on the kidney transplant list. Patient has 6 children with no major medical problems. General Exam Limitations: no limitations General appearance: alert, in no apparent distress Head exam: Present: atraumatic, normocephalic Eye exam: Present: normal appearance. Absent: scleral icterus, conjunctival injection Neck exam: Present: normal inspection Respiratory exam: Present: normal lung sounds bilaterally. Absent: respiratory distress, wheezes, rales, rhonchi, stridor, accessory muscle use Cardiovascular Exam: Present: regular rate, normal rhythm, normal heart sounds. Absent: systolic murmur, diastolic murmur, rubs, gallop GI/Abdominal exam: Present: soft. Absent: distended, tenderness, guarding, rebound, rigid, mass Extremities exam: Present: other (The patient does have continued oozing from the venipuncture site, overlying the hemodialysis graft. There is a normal thrill and hum. There is not any active arterial bleeding.) Back exam: Present: normal inspection. Absent: CVA tenderness (R), CVA tenderness (L) Neurological exam: Present: alert Skin exam: Present: warm, dry, intact, normal color. Absent: rash Course Vital Signs 06/13/24 06/13/24 06/13/24 05:42 07:08 08:59 Temperature 98.0 F Pulse Rate 68 65 64 Respiratory 18 18 18 Rate Blood Pressure 202/91 186/88 168/74 O2 Sat by Pulse 99 99 95 Oximetry Medical Decision Making - Medical Decision Making I applied silver nitrate cautery at the skin and then held direct pressure. Further pressure dressing was applied and then after removal, the patient then observed with no recurrence of bleeding. The patient had also been given dose of hydralazine for his hypertension. Was pt. sent in by a medical professional or institution (JACKIE Wise, HVAC MECHANIC, urgent care, hospital, or alf...) When possible be specific @ -[No] Did you speak to anyone other than the patient for history (EMS, parent, family, police, friend...)? What history was obtained from this source @ -[No] Did you review nursing and triage notes (agree or disagree)? Why? @ -[I reviewed and agree with nursing and triage notes] Were old charts reviewed (outside hosp., previous admission, EMS record, old EKG, old radiological studies, urgent care reports/EKG's, alf records)? Report findings @ -[No old charts were reviewed] Differential Diagnosis (chest pain, altered mental status, abdominal pain women, abdominal pain men, vaginal bleeding, weakness, fever, dyspnea, syncope, headache, dizziness, GI bleed, back pain, seizure, CVA, palpatations, mental health, musculoskeletal)? @ -[Differential diagnosis includes bleeding diathesis, platelet dysfunction, thrombocytopenia, DIC, medication effect, this list not comprehensive EKG interpreted by me (3pts min.). @ -[As above] X-rays interpreted by me (1pt min.). @ -[None done] CT interpreted by me (1pt min.). @ -[None done] U/S interpreted by me (1pt. min.). @ -[None done] What testing was considered but not performed or refused? (CT, X-rays, U/S, labs)? Why? @ -[None] What meds were considered but not given or refused? Why? @ -[None] Did you discuss the management of the patient with other professionals (professionals i.e. JACKIE Wise, HVAC MECHANIC, lab, RT, psych nurse, social studies teacher, wardrobe technician, teacher, patrol community service officer, trimming caser)? Give summary @ -[No] Was smoking cessation discussed for >3mins.? @ -[No] Was critical care preformed (if so, how long)? @ -[No] Were there social determinants of health that impacted care today? How? (Homelessness, low income, unemployed, alcoholism, drug addiction, transportation, low edu. Level, literacy, decrease access to med. care, fci, rehab)? @ -[No] Was there de-escalation of care discussed even if they declined (Discuss DNR or withdrawal of care, Hospice)? DNR status @ -[No] What co-morbidities impacted this encounter? (DM, HTN, Smoking, COPD, CAD, Cancer, CVA, ARF, Chemo, Hep., AIDS, mental health diagnosis, sleep apnea, morbid obesity)? @ -[None] Was patient admitted / discharged? Hospital course, mention meds given and route, prescriptions, significant lab abnormalities, going to OR and other pertinent info. @ -[See above. The patient's bleeding was stopped in the department. Discussed appropriate further care as well as return parameters Undiagnosed new problem with uncertain prognosis? @ -[No] Drug Therapy requiring intensive monitoring for toxicity (Heparin, Nitro, Insulin, Cardizem)? @ -[No] Were any procedures done? @ -[No] Diagnosis/symptom? @ -[Acute bleeding from hemodialysis graft Acute, or Chronic, or Acute on Chronic? @ -[Acute Uncomplicated (without systemic symptoms) or Complicated (systemic symptoms)? @ -[Uncomplicated Side effects of treatment? @ -[No] Exacerbation, Progression, or Severe Exacerbation? @ -[No] Poses a threat to life or bodily function? How? (Chest pain, USA, [place], pneumonia, PE, COPD, DKA, ARF, appy, cholecystitis, CVA, Diverticulitis, Homicidal, Suicidal, threat to staff... and all critical care pts) @ -[No] Disposition Clinical Impression: Bleeding from dialysis shunt, Hypertension Disposition: HOME SELF-CARE Condition: Good Instructions (If sedation given, give patient instructions): Chronic Hypertension (DC) Is patient prescribed a controlled substance at d/c from ED?: No Referrals: Jaylen Holguin [Primary Care Provider] - 1-2 days
[2024-06-13 09:01] VITALS: BP 168/74; PULSE 64
== END 2024-06-13 09:01 | disposition home or self-care (01) ==
LOC: EC 05:36
DX: T82.838A Hemorrhage due to vascular prosthetic devices, implants and grafts, initial encounter (principal); I10 Essential (primary) hypertension; F17.200 Nicotine dependence, unspecified, uncomplicated; Z88.5 Allergy status to narcotic agent; Z99.2 Dependence on renal dialysis; Z79.899 Other long term (current) drug therapy; Z86.73 Personal history of transient ischemic attack (TIA), and cerebral infarction without residual deficits
CPT/HCPCS: 99283; 96374; J0360

== ENCOUNTER → 2024-08-19 | Outpatient (CLI) | payer MEDICARE, BC ==
[2024-08-19 11:18] LABS: Chol/HDL Ratio 2.46 Ratio; LDL Cholesterol,Calculated 41.4 mg/dL (0.0-131.0); VLDL Calculation 19.16 mg/dL (5.00-40.00)
[2024-08-19 11:35] LABS: Blood Urea Nitrogen 99.4 mg/dL (9.0-27.0); Carbon Dioxide 17.1 mmol/L (21.6-31.8); Chloride 104 mmol/L (96-109); Glucose 90 mg/dL (70-110); Potassium 5.1 mmol/L (3.5-5.5); Sodium 139 mmol/L (135-145)
[2024-08-19 11:36] LABS: ALT 16 U/L (10-49); AST 22 U/L (14-35); Albumin 3.7 g/dL (3.8-4.9); Albumin/Globulin Ratio 1.95 Ratio (1.60-3.17); Alkaline Phosphatase 83 U/L (41-126); Calcium 8.4 mg/dL (8.7-10.3); Globulin 1.9 g/dL (1.6-3.3); Total Bilirubin 0.6 mg/dL (0.3-1.2); Total Protein 5.6 g/dL (6.2-8.2)
== END | disposition home or self-care (01) ==
LOC: LABWHC1 08:44
PROVIDERS: ATTEND Internal Medicine Interventional Cardiology
DX: E78.2 Mixed hyperlipidemia (principal)
CPT/HCPCS: 36415; 80053; 80061

== ENCOUNTER 2024-11-22 08:17 | Observation (INO) | payer MEDICARE, BC ==
[2024-11-22 08:23] VITALS: TEMP 98.1
--- NOTE | 2024-11-22 08:46 | ED ---
General Adult HPI - General Chief complaint: Shortness of Breath Stated complaint: NICHOLAS Time Seen by Provider: 11/22/24 08:25 Source: patient, RN notes reviewed, old records reviewed Mode of arrival: wheelchair Limitations: no limitations - History of Present Illness Initial comments: This is a 54-year-old male who has a past medical history significant for dialysis and anemia. Patient states he was last dialyzed on Saturday. Patient states that to be dialyzed again tomorrow. Patient states that he feels like he is becoming more more short of breath and he thinks his fluid overload even though he does not have any swelling to his legs. Patient denies any fever chills or cough. Patient denies any chest pain he states it is tightness which is what he typically gets when he has fluid overload. Patient denies any palpitations. Patient denies any abdominal pain patient has nausea vomiting diarrhea. - Related Data Home Medications Medication Instructions Recorded Confirmed Sevelamer [Renvela] 800 mg PO TID-W/MEALS 06/16/19 07/31/24 Pantoprazole [Protonix] 40 mg PO BID 04/08/20 07/31/24 hydrALAZINE HCL [Apresoline] 100 mg PO TID 04/08/20 07/31/24 amLODIPine [Norvasc] 5 mg PO BID 05/30/20 07/31/24 Calcium Acetate [PhosLo] 667 mg PO TID-W/MEALS 12/15/20 07/31/24 levETIRAcetam [Keppra] 1,000 mg PO BID 09/20/22 07/31/24 Atorvastatin [Lipitor] 80 mg PO DAILY 01/21/23 07/31/24 Clopidogrel [Plavix] 75 mg PO DAILY 01/21/23 07/31/24 Doxazosin [Cardura] 4 mg PO BID 01/21/23 07/31/24 Metoprolol Tartrate [Lopressor] 50 mg PO BID 01/21/23 07/31/24 cloNIDine HCL [Catapres] 0.3 mg PO DAILY PRN 02/23/24 07/31/24 Previous Rx's Medication Instructions Recorded Isosorbide Mononitrate ER [Imdur] 30 mg PO DAILY 30 Days #30 tab 02/01/23 Allergies Allergy/AdvReac Type Severity Reaction Status Date / Time baclofen AdvReac "too Verified 11/22/24 08:23 strong/sedated" hydromorphone [From Dilaudid] AdvReac Hallucinati Verified 11/22/24 08:23 ons morphine AdvReac Hallucinati Verified 11/22/24 08:23 ons tramadol AdvReac Hallucinati Verified 11/22/24 08:23 ons Review of Systems ROS Statement: Those systems with pertinent positive or pertinent negative responses have been documented in the HPI. ROS Other: All systems not noted in ROS Statement are negative. 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 eye injection with steroid on 04/04 for eye "stroke" , history of left-sided thoracentesis in January 2018, lungs tapped Past Anesthesia/Blood Transfusion Reactions: No Reported Reaction Additional Past Anesthesia/Blood Transfusion Reaction / Comment(s): Pt has received blood in past without reaction. Date of Last Stent Placement:: 2021 Past Psychological History: No Psychological Hx Reported Smoking Status: Current every day smoker Past Alcohol Use History: None Reported Past Drug Use History: None Reported - Past Family History Father Family Medical History: Cancer, CVA/TIA, Myocardial Infarction ([place]) Additional Family Medical History / Comment(s): Father had lymphoma. He had a CVA. Mother Family Medical History: CVA/TIA Additional Family Medical History / Comment(s): Mother had a CVA. Sister(s) Additional Family Medical History / Comment(s): Patient has 5 sisters one has from an aneurysm in the brain. 2 sisters have history of kidney stones. Patient has one brother that was shot as cause of , he was on the kidney transplant list. Patient has 6 children with no major medical problems. General Exam - General Exam Comments Initial Comments: GENERAL: Patient is well-developed and well-nourished. Patient is nontoxic and well- hydrated and is in mild distress. ENT: Neck is soft and supple. No significant lymphadenopathy is noted. Oropharynx is clear. Moist mucous membranes. Neck has full range of motion without eliciting any pain. EYES: The sclera were anicteric and conjunctiva were pink and moist. Extraocular movements were intact and pupils were equal round and reactive to light. Eyelids were unremarkable. PULMONARY: Unlabored respirations. Good breath sounds bilaterally. No audible rales rhonchi or wheezing was noted. CARDIOVASCULAR: There is a regular rate and rhythm without any murmurs gallops or rubs. ABDOMEN: Soft and nontender with normal bowel sounds. SKIN: Skin is clear with no lesions or rashes and otherwise unremarkable. NEUROLOGIC: Patient is alert and oriented x3. Cranial nerves II through XII are grossly intact. Motor and sensory are also intact. Normal speech, volume and content. Symmetrical smile. MUSCULOSKELETAL: Normal extremities with adequate strength and full range of motion. No lower extremity swelling or edema. No calf tenderness. LYMPHATICS: No significant lymphadenopathy is noted PSYCHIATRIC: Normal psychiatric evaluation. Limitations: no limitations Course Vital Signs 11/22/24 11/22/24 11/22/24 08:21 08:34 10:26 Temperature 98.1 F Pulse Rate 64 87 Respiratory 22 20 18 Rate Blood Pressure 166/83 168/65 O2 Sat by Pulse 100 93 L Oximetry Medical Decision Making - Medical Decision Making EKG is interpreted by myself but EKG shows a sinus rhythm at 76 bpm. Over the 145 QRS 97 QT interval is 416 QTc is 447. Patient's EKG shows no ST segment elevation Was pt. sent in by a medical professional or institution (, PA, DISEASE CASE MANAGER RN, urgent care, hospital, or assisted...) When possible be specific @ -No Did you speak to anyone other than the patient for history (EMS, parent, family, police, friend...)? What history was obtained from this source @ -No Did you review nursing and triage notes (agree or disagree)? Why? @ -I reviewed and agree with nursing and triage notes Were old charts reviewed (outside hosp., previous admission, EMS record, old EKG, old radiological studies, urgent care reports/EKG's, assisted records)? Report findings @ -No old charts were reviewed Differential Diagnosis? @ -Differential Dyspnea: Coronary syndrome, arrhythmia, tamponade, asthma, COPD, pulmonary embolism, pneumonia, pneumothorax, pulmonary effusion, anaphylaxis, diabetic ketoacidosis, flailed chest, pulmonary contusion, diaphragmatic rupture, anemia, neuromuscular, this is not meant to be an all-inclusive list. EKG interpreted by me (3pts min.). @ -As above X-rays interpreted by me (1pt min.). @ -Chest x-ray shows acute pulmonary edema CT interpreted by me (1pt min.). @ -None done U/S interpreted by me (1pt. min.). @ -None done What testing was considered but not performed or refused? (CT, X-rays, U/S, labs)? Why? @ -None What meds were considered but not given or refused? Why? @ -None Did you discuss the management of the patient with other professionals (professionals i.e. , PA, DISEASE CASE MANAGER RN, lab, RT, psych nurse, social worker masters, agile project manager, teacher, second officer, telephonic case manager)? Give summary @ -[facility]. I spoke with Dr. Acosta and he agreed that he will be consulted and will get the patient dialyzed Was smoking cessation discussed for >3mins.? @ -No Was critical care preformed (if so, how long)? @ -No Were there social determinants of health that impacted care today? How? (Homelessness, low income, unemployed, alcoholism, drug addiction, transportation, low edu. Level, literacy, decrease access to med. care, residential, rehab)? @ -No Was there de-escalation of care discussed even if they declined (Discuss DNR or withdrawal of care, Hospice)? DNR status @ -No What co-morbidities impacted this encounter? (DM, HTN, Smoking, COPD, CAD, Cancer, CVA, ARF, Chemo, Hep., AIDS, mental health diagnosis, sleep apnea, morb id obesity)? @ -None Was patient admitted / discharged? Hospital course, mention meds given and rout e, prescriptions, significant lab abnormalities, going to OR and other pertinent info. @ -Patient's potassium was elevated so I treated the patient's potassium with calcium chloride sodium bicarb Lokelma and D50 with 10 of insulin. Patient will be admitted to [facility] and Dr. Acosta will be consulted for nephrology Undiagnosed new problem with uncertain prognosis? @ -No Drug Therapy requiring intensive monitoring for toxicity (Heparin, Nitro, Insulin, Cardizem)? @ -No Were any procedures done? @ -No Diagnosis/symptom? @ -Acute pulmonary edema Acute, or Chronic, or Acute on Chronic? @ -Acute Uncomplicated (without systemic symptoms) or Complicated (systemic symptoms)? @ -Complicated Side effects of treatment? @ -No Exacerbation, Progression, or Severe Exacerbation? @ -No Poses a threat to life or bodily function? How? (Chest pain, USA, [place], pneumonia, PE, COPD, DKA, ARF, appy, cholecystitis, CVA, Diverticulitis, Homicidal, Suicidal, threat to staff... and all critical care pts) @ -Yes this can lead to hypoxia and endorgan dysfunction Diagnosis/symptom? @ -Hyperkalemia Acute, or Chronic, or Acute on Chronic? @ -Acute Uncomplicated (without systemic symptoms) or Complicated (systemic symptoms)? @ -Complicated Side effects of treatment? @ -None Exacerbation, Progression, or Severe Exacerbation] @ -No Poses a threat to life or bodily function? @ -Yes this can lead to arrhythmias and - Lab Data Result diagrams: 11/22/24 08:52 11/22/24 08:52 Lab Results 11/22/24 11/22/24 11/22/24 Range/Units 08:52 08:52 08:52 WBC 7.8 (3.8-10.6) k/uL RBC 2.50 L (4.30-5.90) m/uL Hgb 8.3 L (13.0-17.5) gm/dL Hct 25.1 L (39.0-53.0) % MCV 100.4 H (80.0-100.0) fL MCH 33.1 (25.0-35.0) pg MCHC 33.0 (31.0-37.0) g/dL RDW 15.9 H (11.5-15.5) % Plt Count 95 L (150-450) k/uL MPV 7.9 Neutrophils % 82 % Lymphocytes % 9 % Monocytes % 6 % Eosinophils % 1 % Basophils % 1 % Neutrophils # 6.3 (1.3-7.7) k/uL Lymphocytes # 0.7 L (1.0-4.8) k/uL Monocytes # 0.5 (0-1.0) k/uL Eosinophils # 0.1 (0-0.7) k/uL Basophils # 0.1 (0-0.2) k/uL Hypochromasia Slight Macrocytosis Slight PT 12.5 (10.0-12.5) sec INR 1.2 H (<1.2) APTT 26.3 (22.0-30.0) sec Sodium 142 (137-145) mmol/L Potassium 6.1 H* (3.5-5.1) mmol/L Chloride 103 (98-107) mmol/L Carbon Dioxide 21 L (22-30) mmol/L Anion Gap 18 mmol/L BUN 102 H* (9-20) mg/dL Creatinine 14.72 H* (0.66-1.25) mg/dL Est GFR (CKD-EPI)AfAm 4 (>60 ml/min/1.73 sqM) Est GFR (CKD-EPI)NonAf 3 (>60 ml/min/1.73 sqM) Glucose 80 (74-99) mg/dL Plasma Lactic Acid Tenzin (0.7-2.0) mmol/L Calcium 9.3 (8.4-10.2) mg/dL Magnesium 1.6 (1.6-2.3) mg/dL Total Bilirubin 0.7 (0.2-1.3) mg/dL AST 25 (17-59) U/L ALT 16 (4-49) U/L Alkaline Phosphatase 78 (38-126) U/L Troponin I (0.000-0.034) ng/mL NT-Pro-B Natriuret Pep 33603 pg/mL Total Protein 6.1 L (6.3-8.2) g/dL Albumin 4.0 (3.5-5.0) g/dL 11/22/24 11/22/24 Range/Units 08:52 08:52 WBC (3.8-10.6) k/uL RBC (4.30-5.90) m/uL Hgb (13.0-17.5) gm/dL Hct (39.0-53.0) % MCV (80.0-100.0) fL MCH (25.0-35.0) pg MCHC (31.0-37.0) g/dL RDW (11.5-15.5) % Plt Count (150-450) k/uL MPV Neutrophils % % Lymphocytes % % Monocytes % % Eosinophils % % Basophils % % Neutrophils # (1.3-7.7) k/uL Lymphocytes # (1.0-4.8) k/uL Monocytes # (0-1.0) k/uL Eosinophils # (0-0.7) k/uL Basophils # (0-0.2) k/uL Hypochromasia Macrocytosis PT (10.0-12.5) sec INR (<1.2) APTT (22.0-30.0) sec Sodium (137-145) mmol/L Potassium (3.5-5.1) mmol/L Chloride (98-107) mmol/L Carbon Dioxide (22-30) mmol/L Anion Gap mmol/L BUN (9-20) mg/dL Creatinine (0.66-1.25) mg/dL Est GFR (CKD-EPI)AfAm (>60 ml/min/1.73 sqM) Est GFR (CKD-EPI)NonAf (>60 ml/min/1.73 sqM) Glucose (74-99) mg/dL Plasma Lactic Acid Tenzin 0.5 L (0.7-2.0) mmol/L Calcium (8.4-10.2) mg/dL Magnesium (1.6-2.3) mg/dL Total Bilirubin (0.2-1.3) mg/dL AST (17-59) U/L ALT (4-49) U/L Alkaline Phosphatase (38-126) U/L Troponin I 0.068 H* (0.000-0.034) ng/mL NT-Pro-B Natriuret Pep pg/mL Total Protein (6.3-8.2) g/dL Albumin (3.5-5.0) g/dL Critical Care Time Critical Care Time: Yes Total Critical Care Time: 35 Disposition Clinical Impression: Acute pulmonary edema, Hyperkalemia Disposition: ADMITTED IP TO THIS [facility] Referrals: Jaylen Holguin [Primary Care Provider] - 1-2 days Time of Disposition: 10:34
--- NOTE | 2024-11-22 09:07 | XR ---
EXAMINATION TYPE: XR chest 2V DATE OF EXAM: 11/22/2024 9:01 AM COMPARISON: Chest x-ray February 23, 2024 CLINICAL INDICATION: Male, 54 years old with history of difficulty breathing, TECHNIQUE: Frontal and lateral views of the chest are obtained. FINDINGS: There is cardiomegaly with moderate bilateral increased interstitial markings or edema. No pleural effusion or pneumothorax seen bilaterally. The osseous structures are intact. IMPRESSION: Findings suggest CHF exacerbation/fluid overload state. Correlate clinically. [facility], , 11/22/2024 9:05 AM
[2024-11-22 09:08] LABS: Basophils # (A) 0.1 k/uL (0-0.2); Basophils % (A) 1 %; Eosinophils # (A) 0.1 k/uL (0-0.7); Eosinophils % (A) 1 %; HCT 25.1 % (39.0-53.0); HGB 8.3 gm/dL (13.0-17.5); Hypochromasia Slight; Lymphocytes # (A) 0.7 k/uL (1.0-4.8); Lymphocytes % (A) 9 %; MCH 33.1 pg (25.0-35.0); MCV 100.4 fL (80.0-100.0); Macrocytosis Slight; Mean Platelet Volume 7.9; Monocytes # (A) 0.5 k/uL (0-1.0); Monocytes % (A) 6 %; Neutrophils # (A) 6.3 k/uL (1.3-7.7); Neutrophils % (A) 82 %; RDW 15.9 % (11.5-15.5); WBC 7.8 k/uL (3.8-10.6)
[2024-11-22 09:18] LABS: INR 1.2 (<1.2); Partial Thromboplastin Time 26.3 sec (22.0-30.0); Prothrombin Time 12.5 sec (10.0-12.5)
[2024-11-22 09:27] LABS: ALT 16 U/L (4-49); AST 25 U/L (17-59); African American GFR (CKD) 4 (>60 ml/min/1.73 sqM); Alkaline Phosphatase 78 U/L (38-126); Anion Gap 18 mmol/L; Calcium 9.3 mg/dL (8.4-10.2); Carbon Dioxide 21 mmol/L (22-30); Chloride 103 mmol/L (98-107); Glucose 80 mg/dL (74-99); Magnesium 1.6 mg/dL (1.6-2.3); Non-African American GFR(CKD) 3 (>60 ml/min/1.73 sqM); Sodium 142 mmol/L (137-145); Total Bilirubin 0.7 mg/dL (0.2-1.3); Total Protein 6.1 g/dL (6.3-8.2)
[2024-11-22 09:44] LABS: Platelet Count 95 k/uL (150-450)
[2024-11-22 09:57] LABS: Blood Urea Nitrogen 102 mg/dL (9-20); Potassium 6.1 mmol/L (3.5-5.1)
[2024-11-22 09:58] LABS: NT-Pro-B-Type Natriuretic Pept 83300 pg/mL
[2024-11-22 10:27] VITALS: RESP 18
[2024-11-22] MEDS: DEXTROSE 50% SYRINGE 50 ML IVP STA (10:37)
[2024-11-22] MEDS: CALCIUM CHLORIDE 100 MG/ML 10 ML SYRINGE IVP STA (10:38)
[2024-11-22] MEDS: SODIUM BICARB 8.4% 50 ML SYR (1 MEQ/ML) IV STA (10:38)
[2024-11-22] MEDS: SODIUM ZIRCONIUM CYCLOSILICATE 10 GM PACKET PO ONE (10:38)
[2024-11-22] MEDS: INSULIN REGULAR 100 UNIT/ML VIAL (IV) IV ONE (10:39)
--- NOTE | 2024-11-22 10:41 | P.HPIM ---
History of Present Illness 54-year-old male came in because of shortness of breath patient is found to have pulmonary edema patient was 1 session of hemodialysis because of schedule changes due to holidays. Patient's BNP is a 2000 patient is also hypokalemic du e to missing hemodialysis and patient received Lokelma calcium gluconate and insulin with dextrose. Nephrology was consulted patient will undergo hemodialysis today. REVIEW OF SYSTEMS: All other systems are negative except those mentioned in the HPI PHYSICAL EXAMINATION: GENERAL: The patient is alert and oriented x3, not in any acute distress. Well developed, well nourished. HEENT: Pupils are round and equally reacting to light. EOMI. No scleral icterus. No conjunctival pallor. Normocephalic, atraumatic. No pharyngeal erythema. No thyromegaly. CARDIOVASCULAR: S1 and S2 present. No murmurs, rubs, or gallops. PULMONARY: Chest is clear to auscultation, no wheezing or crackles. ABDOMEN: Soft, nontender, nondistended, normoactive bowel sounds. No palpable organomegaly. MUSCULOSKELETAL: No joint swelling or deformity. EXTREMITIES: No cyanosis, clubbing, or pedal edema. NEUROLOGICAL: Gross neurological examination did not reveal any focal deficits. SKIN: No rashes. Assessment and plan -Shortness of breath: Secondary to pulmonary edema patient has acute hypoxic respiratory failure secondary to pulm edema will require hemodialysis nephrology was consulted. -Chronic hypercapnic respiratory failure secondary to COPD uses 2 L of oxygen at home patient is not in COPD exacerbation at this time -Hyperkalemia secondary to missing hemodialysis -Paroxysmal atrial fibrillation patient is presently rate controlled -Incisional disease hemodialysis dependent -Hypertension -Hyperlipidemia -Coronary artery disease -Seizure disorder Plan admission chronic medical problems patient will be resumed on appropriate medications DVT prophylaxis: Once verified patient will be resumed on at the coagulation for A-fib Past Medical History Past Medical History: Atrial Fibrillation, Blood Disorder, Chest Pain / Angina, CVA/TIA, Dialysis, Eye Disorder, GI Bleed, Hyperlipidemia, Hypertension, Myocardial Infarction (CT), Renal Disease, Seizure Disorder Additional Past Medical History / Comment(s): Urolithiasis/nephrolithiasis, acute hypoxic respiratory failure after missed dialysis, lower GI bleed, duodenal ulcer, seizures with last seizures 2018, 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, pericardial effusion, spinal stenosis, DDD, chronic cervical and back pain, 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 eye injection with steroid on 04/04 for eye "stroke" , history of left-sided thoracentesis in January 2018, lungs tapped Past Anesthesia/Blood Transfusion Reactions: No Reported Reaction Additional Past Anesthesia/Blood Transfusion Reaction / Comment(s): Pt has received blood in past without reaction. Date of Last Stent Placement:: 2021 Past Psychological History: No Psychological Hx Reported Smoking Status: Current every day smoker Past Alcohol Use History: None Reported Past Drug Use History: None Reported - Past Family History Father Family Medical History: Cancer, CVA/TIA, Myocardial Infarction (CT) Additional Family Medical History / Comment(s): Father had lymphoma. He had a CVA. Mother Family Medical History: CVA/TIA Additional Family Medical History / Comment(s): Mother had a CVA. Sister(s) Additional Family Medical History / Comment(s): Patient has 5 sisters one has from an aneurysm in the brain. 2 sisters have history of kidney stones. Patient has one brother that was shot as cause of , he was on the kidney t ransplant list. Patient has 6 children with no major medical problems. Medications and Allergies Home Medications Medication Instructions Recorded Confirmed Type Sevelamer [Renvela] 800 mg PO TID-W/MEALS 06/16/19 07/31/24 History Pantoprazole [Protonix] 40 mg PO BID 04/08/20 07/31/24 History hydrALAZINE HCL [Apresoline] 100 mg PO TID 04/08/20 07/31/24 History amLODIPine [Norvasc] 5 mg PO BID 05/30/20 07/31/24 History Calcium Acetate [PhosLo] 667 mg PO TID-W/MEALS 12/15/20 07/31/24 History levETIRAcetam [Keppra] 1,000 mg PO BID 09/20/22 07/31/24 History Atorvastatin [Lipitor] 80 mg PO DAILY 01/21/23 07/31/24 History Clopidogrel [Plavix] 75 mg PO DAILY 01/21/23 07/31/24 History Doxazosin [Cardura] 4 mg PO BID 01/21/23 07/31/24 History Metoprolol Tartrate [Lopressor] 50 mg PO BID 01/21/23 07/31/24 History Isosorbide Mononitrate ER [Imdur] 30 mg PO DAILY 30 Days #30 tab 02/01/23 07/31/24 Rx cloNIDine HCL [Catapres] 0.3 mg PO DAILY PRN 02/23/24 07/31/24 History Allergies Allergy/AdvReac Type Severity Reaction Status Date / Time baclofen AdvReac "too Verified 11/22/24 08:23 strong/sedated" hydromorphone [From Dilaudid] AdvReac Hallucinati Verified 11/22/24 08:23 ons morphine AdvReac Hallucinati Verified 11/22/24 08:23 ons tramadol AdvReac Hallucinati Verified 11/22/24 08:23 ons Physical Exam Vitals: Vital Signs Temp Pulse Resp BP Pulse Ox 11/22/24 10:26 87 18 168/65 93 L 11/22/24 08:34 20 11/22/24 08:21 98.1 F 64 22 166/83 100 Intake and Output 11/21/24 11/22/24 11/22/24 22:59 06:59 14:59 Other: Weight 61.235 kg Results CBC & Chem 7: 11/22/24 08:52 11/22/24 08:52 Labs: Abnormal Lab Results - Last 24 Hours (Table) 11/22/24 11/22/24 11/22/24 Range/Units 08:52 08:52 08:52 RBC 2.50 L (4.30-5.90) m/uL Hgb 8.3 L (13.0-17.5) gm/dL Hct 25.1 L (39.0-53.0) % MCV 100.4 H (80.0-100.0) fL RDW 15.9 H (11.5-15.5) % Plt Count 95 L (150-450) k/uL Lymphocytes # 0.7 L (1.0-4.8) k/uL INR 1.2 H (<1.2) Potassium 6.1 H* (3.5-5.1) mmol/L Carbon Dioxide 21 L (22-30) mmol/L BUN 102 H* (9-20) mg/dL Creatinine 14.72 H* (0.66-1.25) mg/dL Plasma Lactic Acid Tenzin (0.7-2.0) mmol/L Troponin I (0.000-0.034) ng/mL Total Protein 6.1 L (6.3-8.2) g/dL 11/22/24 11/22/24 Range/Units 08:52 08:52 RBC (4.30-5.90) m/uL Hgb (13.0-17.5) gm/dL Hct (39.0-53.0) % MCV (80.0-100.0) fL RDW (11.5-15.5) % Plt Count (150-450) k/uL Lymphocytes # (1.0-4.8) k/uL INR (<1.2) Potassium (3.5-5.1) mmol/L Carbon Dioxide (22-30) mmol/L BUN (9-20) mg/dL Creatinine (0.66-1.25) mg/dL Plasma Lactic Acid Tenzin 0.5 L (0.7-2.0) mmol/L Troponin I 0.068 H* (0.000-0.034) ng/mL Total Protein (6.3-8.2) g/dL
--- NOTE | 2024-11-22 11:41 | P.NPCON ---
History of Present Illness - Reason for Consult end stage renal disease - History of Present Illness Reason for consultation: End-stage renal disease History of present illness: Patient is a 54-year-old male seen in renal consultation for end-stage renal disease. Patient was seen and examined in the emergency room. He is maintained on hemodialysis on Saturday schedule. Last week he was supposed to be dialyzed Saturday due to the holiday schedule but states he missed Saturday's treatment. Patient states that last night he became short of breath and came to the hospital. Chest x-ray suggestive of fluid overload and he is on 3 L nasal cannula. Potassium was also elevated at 6.1. He is not on any meds that would raise a potassium but states that he did eat banana and potatoes over the weekend. He denies vomiting or diarrhea. Denies chest pain. Denies history of diabetes. He does have coronary disease with stent. No fever or chills. Essentially makes no urine. Vital signs are stable. General: No acute distress. HEENT: Head exam is unremarkable. On nasal cannula. LUNGS: No audible rhonchi or wheezes. HEART: Rate and Rhythm are regular. ABDOMEN: Nontender. EXTREMITITES: No edema. 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 eye injection with steroid on 04/04 for eye "stroke" , history of left-sided thoracentesis in January 2018, lungs tapped Past Anesthesia/Blood Transfusion Reactions: No Reported Reaction Additional Past Anesthesia/Blood Transfusion Reaction / Comment(s): Pt has received blood in past without reaction. Date of Last Stent Placement:: 2021 Past Psychological History: No Psychological Hx Reported Smoking Status: Current every day smoker Past Alcohol Use History: None Reported Past Drug Use History: None Reported - Past Family History Father Family Medical History: Cancer, CVA/TIA, Myocardial Infarction (MD) Additional Family Medical History / Comment(s): Father had lymphoma. He had a CVA. Mother Family Medical History: CVA/TIA Additional Family Medical History / Comment(s): Mother had a CVA. Sister(s) Additional Family Medical History / Comment(s): Patient has 5 sisters one has from an aneurysm in the brain. 2 sisters have history of kidney stones. Patient has one brother that was shot as cause of , he was on the kidney transplant list. Patient has 6 children with no major medical problems. Medications and Allergies Home Medications Medication Instructions Recorded Confirmed Type Sevelamer [Renvela] 1,600 mg PO TID-W/MEALS 06/16/19 11/22/24 History Pantoprazole [Protonix] 40 mg PO BID 04/08/20 11/22/24 History hydrALAZINE HCL [Apresoline] 100 mg PO TID 04/08/20 11/22/24 History amLODIPine [Norvasc] 5 mg PO BID 05/30/20 11/22/24 History Calcium Acetate [PhosLo] 1,334 mg PO TID-W/MEALS 12/15/20 11/22/24 History levETIRAcetam [Keppra] 1,000 mg PO BID 09/20/22 11/22/24 History Atorvastatin [Lipitor] 80 mg PO HS 01/21/23 11/22/24 History Clopidogrel [Plavix] 75 mg PO DAILY 01/21/23 11/22/24 History Metoprolol Tartrate [Lopressor] 50 mg PO BID 01/21/23 11/22/24 History Isosorbide Mononitrate ER [Imdur] 30 mg PO DAILY 30 Days #30 tab 02/01/23 11/22/24 Rx cloNIDine HCL [Catapres] 0.3 mg PO DAILY PRN 02/23/24 11/22/24 History Calcium Acetate [Phoslo] 1,334 mg PO DAILY PRN 11/22/24 11/22/24 History Doxazosin [Cardura] 4 mg PO BID 11/22/24 11/22/24 History Lactulose 10 gm PO DAILY PRN 11/22/24 11/22/24 History Nitroglycerin Sl Tabs [Nitrostat] 0.4 mg SL Q5M PRN 11/22/24 11/22/24 History cloNIDine HCL [Catapres] 0.1 mg PO DAILY 11/22/24 11/22/24 History Allergies Allergy/AdvReac Type Severity Reaction Status Date / Time baclofen AdvReac "too Verified 11/22/24 10:58 strong/sedated" hydromorphone [From Dilaudid] AdvReac Hallucinati Verified 11/22/24 10:58 ons morphine AdvReac Hallucinati Verified 11/22/24 10:58 ons tramadol AdvReac Hallucinati Verified 11/22/24 10:58 ons Physical Exam Vitals: Vital Signs Temp Pulse Resp BP Pulse Ox 11/22/24 10:26 87 18 168/65 93 L 11/22/24 08:34 20 11/22/24 08:21 98.1 F 64 22 166/83 100 Intake and Output 11/21/24 11/22/24 11/22/24 22:59 06:59 14:59 Other: Weight 61.235 kg Results - Lab Results Most recent lab results Calcium 9.3 mg/dL (8.4-10.2) 11/22/24 08:52 Magnesium 1.6 mg/dL (1.6-2.3) 11/22/24 08:52 11/22/24 08:52 11/22/24 08:52 Assessment and Plan Plan: Assessment: 1. End-stage renal disease maintained on hemodialysis on Saturday schedule. 2. Hypertension with chronic kidney disease. 3. Acute hypoxic respiratory failure. 4. Volume overload. 5. Hyperkalemia secondary to chronic kidney disease and missed dialysis treatment. Patient received IV calcium, IV insulin with D50, sodium bicarb as well as Lokelma. 6. Coronary artery disease. 7. Anemia of chronic kidney disease. He has required multiple blood transfusions in the past. Plan: Hemodialysis today. Check iron studies. Renal diet. 1500 cc fluid restriction. Stressed compliance with medications and hemodialysis treatments outpatient. Thank you for the consultation. I will continue to follow the patient with you during his hospital stay.
[2024-11-22] MEDS ORDERED: LACTULOSE 20 GM/30 ML CUP PO PRN (13:08)
[2024-11-22] MEDS ORDERED: cloNIDine HCL 0.1 MG TAB PO PRN (13:08)
[2024-11-22] MEDS ORDERED: CALCIUM ACETATE 667 MG TAB PO PRN (13:08)
[2024-11-22] MEDS ORDERED: hydrALAZINE HCL 50 MG TAB PO SCH (16:00)
[2024-11-22 16:47] VITALS: BP 187/99; PULSE 77
[2024-11-22] MEDS ORDERED: CALCIUM ACETATE 667 MG TAB PO SCH (17:30)
[2024-11-22] MEDS ORDERED: PANTOPRAZOLE 40 MG TABLET PO SCH (17:30)
[2024-11-22] MEDS ORDERED: SEVELAMER 800 MG TAB PO SCH (17:30)
[2024-11-22] MEDS ORDERED: levETIRAcetam 500 MG TAB PO SCH (21:00)
[2024-11-22] MEDS ORDERED: amLODIPine 5 MG TAB PO SCH (21:00)
[2024-11-22] MEDS ORDERED: ATORVASTATIN 80 MG TAB PO SCH (21:00)
[2024-11-22] MEDS ORDERED: DOXAZOSIN 4 MG TAB PO SCH (21:00)
[2024-11-22] MEDS ORDERED: METOPROLOL TARTRATE 50 MG TAB PO SCH (21:00)
[2024-11-22 23:21] LABS: % Iron Saturation 20.43 (15.00-50.00)
[2024-11-23] MEDS ORDERED: ISOSORBIDE MONONITRATE ER 30 MG TAB.ER.24H PO SCH (09:00)
[2024-11-23] MEDS ORDERED: CLOPIDOGREL 75 MG TAB PO SCH (09:00)
[2024-11-23] MEDS ORDERED: cloNIDine HCL 0.1 MG TAB PO SCH (09:00)
--- NOTE | 2024-11-24 21:48 | P.DS ---
Providers Date of admission: 11/22/24 10:34 Attending physician: Rafat Saldaña Consults: 11/22/24 10:34 Consult Physician Urgent Consulting Provider: Rick Park Consult Reason/Comments: Acute pulmonary edema, hyperkalemia Do you want consulting provider notified?: Yes Primary care physician: Jaylen Lomax [facility] Hospital Course: Patient left against medical advice on 11/22/2023. 54-year-old male came in because of shortness of breath patient is found to have pulmonary edema patient was 1 session of hemodialysis because of schedule changes due to holidays. Patient's BNP is a 2000 patient is also hypokalemic due to missing hemodialysis and patient received Lokelma calcium gluconate and insulin with dextrose. Nephrology was consulted patient will undergo hemodialysis today. REVIEW OF SYSTEMS: All other systems are negative except those mentioned in the HPI PHYSICAL EXAMINATION: GENERAL: The patient is alert and oriented x3, not in any acute distress. Well developed, well nourished. HEENT: Pupils are round and equally reacting to light. EOMI. No scleral icterus. No conjunctival pallor. Normocephalic, atraumatic. No pharyngeal erythema. No thyromegaly. CARDIOVASCULAR: S1 and S2 present. No murmurs, rubs, or gallops. PULMONARY: Chest is clear to auscultation, no wheezing or crackles. ABDOMEN: Soft, nontender, nondistended, normoactive bowel sounds. No palpable organomegaly. MUSCULOSKELETAL: No joint swelling or deformity. EXTREMITIES: No cyanosis, clubbing, or pedal edema. NEUROLOGICAL: Gross neurological examination did not reveal any focal deficits. SKIN: No rashes. Assessment and plan -Shortness of breath: Secondary to pulmonary edema patient has acute hypoxic respiratory failure secondary to pulm edema will require hemodialysis nephrology was consulted. -Chronic hypercapnic respiratory failure secondary to COPD uses 2 L of oxygen at home patient is not in COPD exacerbation at this time -Hyperkalemia secondary to missing hemodialysis -Paroxysmal atrial fibrillation patient is presently rate controlled -Incisional disease hemodialysis dependent -Hypertension -Hyperlipidemia -Coronary artery disease -Seizure disorder Plan admission chronic medical problems patient will be resumed on appropriate medications DVT prophylaxis: Once verified patient will be resumed on at the coagulation for A-fib The impression and plan of care has been dictated by Candace Pena, Nurse Practitioner as directed. Dr. Piotr MD I have performed a history and physical examination and medical decision making of this patient, discussed the same with the dictator, and agree with the dictators assessment and plan as written, documented as a scribe. Based on total visit time, I have performed more than 50% of this visit. Plan - Discharge Summary New Discharge Prescriptions: No Action Sevelamer [Renvela] 1,600 mg PO TID-W/MEALS hydrALAZINE HCL [Apresoline] 100 mg PO TID Pantoprazole [Protonix] 40 mg PO BID amLODIPine [Norvasc] 5 mg PO BID Calcium Acetate [PhosLo] 1,334 mg PO TID-W/MEALS Metoprolol Tartrate [Lopressor] 50 mg PO BID Atorvastatin [Lipitor] 80 mg PO HS Nitroglycerin Sl Tabs [Nitrostat] 0.4 mg SL Q5M PRN PRN Reason: Chest Pain levETIRAcetam [Keppra] 1,000 mg PO BID Clopidogrel [Plavix] 75 mg PO DAILY Isosorbide Mononitrate ER [Imdur] 30 mg PO DAILY 30 Days #30 tab cloNIDine HCL [Catapres] 0.3 mg PO DAILY PRN PRN Reason: High BP Lactulose 10 gm PO DAILY PRN PRN Reason: Constipation Doxazosin [Cardura] 4 mg PO BID cloNIDine HCL [Catapres] 0.1 mg PO DAILY Calcium Acetate [Phoslo] 1,334 mg PO DAILY PRN PRN Reason: snacks Discharge Medication List Sevelamer [Renvela] 1,600 mg PO TID-W/MEALS 06/16/19 [History] Pantoprazole [Protonix] 40 mg PO BID 04/08/20 [History] hydrALAZINE HCL [Apresoline] 100 mg PO TID 04/08/20 [History] amLODIPine [Norvasc] 5 mg PO BID 05/30/20 [History] Calcium Acetate [PhosLo] 1,334 mg PO TID-W/MEALS 12/15/20 [History] levETIRAcetam [Keppra] 1,000 mg PO BID 09/20/22 [History] Atorvastatin [Lipitor] 80 mg PO HS 01/21/23 [History] Clopidogrel [Plavix] 75 mg PO DAILY 01/21/23 [History] Metoprolol Tartrate [Lopressor] 50 mg PO BID 01/21/23 [History] Isosorbide Mononitrate ER [Imdur] 30 mg PO DAILY 30 Days #30 tab 02/01/23 [Rx] cloNIDine HCL [Catapres] 0.3 mg PO DAILY PRN 02/23/24 [History] Calcium Acetate [Phoslo] 1,334 mg PO DAILY PRN 11/22/24 [History] Doxazosin [Cardura] 4 mg PO BID 11/22/24 [History] Lactulose 10 gm PO DAILY PRN 11/22/24 [History] Nitroglycerin Sl Tabs [Nitrostat] 0.4 mg SL Q5M PRN 11/22/24 [History] cloNIDine HCL [Catapres] 0.1 mg PO DAILY 11/22/24 [History] Follow up Appointment(s)/Referral(s): Jaylen Holguin [Primary Care Provider] - 1-2 days Discharge Disposition: LEFT AGAINST MEDICAL ADVICE
== END 2024-11-22 17:43 | disposition left against medical advice (07) ==
LOC: EC 08:17 → INTOOBSV 10:34 → 3SCARD 10:34 → UNDODISIN 17:43
PROVIDERS: ADMIT Internal Medicine; ATTEND Internal Medicine
DX: J81.0 Acute pulmonary edema (principal); J96.01 Acute respiratory failure with hypoxia; I12.0 Hypertensive chronic kidney disease with stage 5 chronic kidney disease or end stage renal disease; N18.6 End stage renal disease; J96.12 Chronic respiratory failure with hypercapnia; J44.9 Chronic obstructive pulmonary disease, unspecified; E87.5 Hyperkalemia; I48.0 Paroxysmal atrial fibrillation; E87.70 Fluid overload, unspecified; I25.10 Atherosclerotic heart disease of native coronary artery without angina pectoris; D63.1 Anemia in chronic kidney disease; G40.909 Epilepsy, unspecified, not intractable, without status epilepticus; E78.5 Hyperlipidemia, unspecified; F17.200 Nicotine dependence, unspecified, uncomplicated; Z91.158 Patient's noncompliance with renal dialysis for other reason; Z99.2 Dependence on renal dialysis; Z99.81 Dependence on supplemental oxygen; Z79.02 Long term (current) use of antithrombotics/antiplatelets; Z79.899 Other long term (current) drug therapy; Z88.5 Allergy status to narcotic agent; Z88.8 Allergy status to other drugs, medicaments and biological substances; Z53.29 Procedure and treatment not carried out because of patient's decision for other reasons
CPT/HCPCS: 96374; 96375; 99291; 36415; 90935; 93005; 83880; 80053; 82728; 83540; 83550; 83605; 83735; 84132; 84484; 85025; 85610; 85730; 71046; G0378; 99285

== ENCOUNTER 2025-06-16 13:34 | Observation (INO) | payer MEDICARE, BC ==
--- NOTE | 2025-06-16 13:51 | ED ---
Recheck HPI - General Chief Complaint: Recheck/Abnormal Lab/Rx Stated Complaint: Abd Labs Time Seen by Provider: 06/16/25 13:40 Source: patient, RN notes reviewed, old records reviewed Mode of arrival: wheelchair Limitations: no limitations - History of Present Illness Initial Comments: This is a 55 male this patient male presents today from dialysis unable to receive dialysis secondary to low outpatient hemoglobin. Patient states he is relatively been feeling fine no nausea vomiting or diarrhea no recent change in medications, no significant shortness of breath cough congestion or fevers. Patient admits to feeling weak but always does MD Complaint: abnormal lab (Low hemoglobin) -: unknown Returns Today for: Called Because of Abnormal Lab/Test Symptoms Since Prior Visit: no new symptoms Context: called for abnormal lab result Associated Symptoms: none - Related Data Home Medications Medication Instructions Recorded Confirmed Sevelamer [Renvela] 1,600 mg PO TID-W/MEALS 06/16/19 06/16/25 Pantoprazole [Protonix] 40 mg PO BID 04/08/20 06/16/25 hydrALAZINE HCL [Apresoline] 100 mg PO TID 04/08/20 06/16/25 amLODIPine [Norvasc] 5 mg PO BID 05/30/20 06/16/25 Calcium Acetate [PhosLo] 1,334 mg PO TID-W/MEALS 12/15/20 06/16/25 levETIRAcetam [Keppra] 1,000 mg PO BID 09/20/22 06/16/25 Atorvastatin [Lipitor] 80 mg PO HS 01/21/23 06/16/25 Clopidogrel [Plavix] 75 mg PO DAILY@1600 01/21/23 06/16/25 Metoprolol Tartrate [Lopressor] 50 mg PO BID 01/21/23 06/16/25 cloNIDine HCL [Catapres] 0.3 mg PO DAILY PRN 02/23/24 06/16/25 Calcium Acetate [PhosLo] 1,334 mg PO DAILY PRN 11/22/24 06/16/25 Doxazosin [Cardura] 4 mg PO BID 11/22/24 06/16/25 Lactulose 10 gm PO DAILY PRN 11/22/24 06/16/25 Nitroglycerin Sl Tabs [Nitrostat] 0.4 mg SL Q5M PRN 11/22/24 06/16/25 cloNIDine HCL [Catapres] 0.1 mg PO HS 11/22/24 06/16/25 Previous Rx's Medication Instructions Recorded Isosorbide Mononitrate ER [Imdur] 30 mg PO DAILY 30 Days #30 tab 02/01/23 Darbepoetin Jim [Aranesp] 40 mcg SQ Q7D each 06/17/25 Allergies Allergy/AdvReac Type Severity Reaction Status Date / Time baclofen AdvReac "too Verified 06/16/25 13:38 strong/sedated" hydromorphone [From Dilaudid] AdvReac Hallucinati Verified 06/16/25 13:38 ons morphine AdvReac Hallucinati Verified 06/16/25 13:38 ons tramadol AdvReac Hallucinati Verified 06/16/25 13:38 ons Review of Systems ROS Statement: Those systems with pertinent positive or pertinent negative responses have been documented in the HPI. ROS Other: All systems not noted in ROS Statement are negative. 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 eye injection with steroid on 04/04 for eye "stroke" , history of left-sided thoracentesis in January 2018, lungs tapped Past Anesthesia/Blood Transfusion Reactions: No Reported Reaction Additional Past Anesthesia/Blood Transfusion Reaction / Comment(s): Pt has received blood in past without reaction. Date of Last Stent Placement:: 2021 Past Psychological History: No Psychological Hx Reported Smoking Status: Current every day smoker Past Alcohol Use History: None Reported Past Drug Use History: None Reported - Past Family History Father Family Medical History: Cancer, CVA/TIA, Myocardial Infarction (SC) Additional Family Medical History / Comment(s): Father had lymphoma. He had a CVA. Mother Family Medical History: CVA/TIA Additional Family Medical History / Comment(s): Mother had a CVA. Sister(s) Additional Family Medical History / Comment(s): Patient has 5 sisters one has from an aneurysm in the brain. 2 sisters have history of kidney stones. Patient has one brother that was shot as cause of , he was on the kidney transplant list. Patient has 6 children with no major medical problems. General Exam Limitations: no limitations General appearance: alert, in no apparent distress Head exam: Present: atraumatic, normocephalic, normal inspection Eye exam: Present: normal appearance, PERRL, EOMI. Absent: scleral icterus, conjunctival injection, periorbital swelling ENT exam: Present: normal exam, mucous membranes moist Neck exam: Present: normal inspection. Absent: tenderness, meningismus, lymphadenopathy Respiratory exam: Present: normal lung sounds bilaterally. Absent: respiratory distress, wheezes, rales, rhonchi, stridor Cardiovascular Exam: Present: regular rate, normal rhythm, normal heart sounds. Absent: systolic murmur, diastolic murmur, rubs, gallop, clicks GI/Abdominal exam: Present: soft, normal bowel sounds. Absent: distended, tenderness, guarding, rebound, rigid Extremities exam: Present: normal inspection, full ROM, normal capillary refill. Absent: tenderness, pedal edema, joint swelling, calf tenderness Back exam: Present: normal inspection Neurological exam: Present: alert, oriented X3, CN II-XII intact Psychiatric exam: Present: normal affect, normal mood Skin exam: Present: warm, dry, intact, normal color. Absent: rash Course Vital Signs 06/16/25 06/16/25 06/16/25 13:35 15:36 16:00 Temperature 98.7 F Pulse Rate 75 78 81 Respiratory 18 16 18 Rate Blood Pressure 154/78 187/79 156/72 O2 Sat by Pulse 90 L 93 L 91 L Oximetry 06/16/25 06/16/25 06/16/25 18:04 18:14 18:34 Temperature 98.8 F 98.7 F 98.5 F Pulse Rate 84 77 77 Respiratory 20 19 19 Rate Blood Pressure 180/94 180/100 184/96 O2 Sat by Pulse 98 97 97 Oximetry 06/16/25 06/16/25 19:33 20:41 Temperature 98.7 F 98.6 F Pulse Rate 84 78 Respiratory 18 19 Rate Blood Pressure 194/91 198/97 O2 Sat by Pulse 96 97 Oximetry - Reevaluation(s) Reevaluation #1: 06/16/25 15:37 Medical records reviewed Reevaluation #2: 06/16/25 15:37 Patient symptoms are unchanged Reevaluation #3: 06/16/25 15:37 Patient informed of results questions answered Reevaluation #4: 06/16/25 15:37 Was pt. sent in by a medical professional or institution (, PA, NATURAL FABRICATOR, urgent care, hospital, or long term...) When possible be specific @ -no Did you speak to anyone other than the patient for history (EMS, parent, family, police, friend...)? What history was obtained from this source @ -no Did you review nursing and triage notes (agree or disagree)? Why? @ -agree Are old charts reviewed (outside hosp., previous admission, EMS record, old EKG, old radiological studies, urgent care reports/EKG's, long term records)? Report findings @ -yes Differential Diagnosis (chest pain, altered mental status, abdominal pain women, abdominal pain men, vaginal bleeding, weakness, fever, dyspnea, syncope, headache, dizziness, GI bleed, back pain, seizure, CVA, palpatations, mental health, musculoskeletal)? @ -prior EKG interpreted by me (3pts min.). @ -yes X-rays interpreted by me (1pt min.). @ -yes negative for acute disease CT interpreted by me (1pt min.). @ -no U/S interpreted by me (1pt. min.). @ -no What testing was considered but not performed or refused? (CT, X-rays, U/S, labs)? Why? @ -none What meds were considered but not given or refused? Why? @ -none Did you discuss the management of the patient with other professionals (professionals i.e. , PA, NATURAL FABRICATOR, lab, RT, psych nurse, marriage and family social worker, production analyst, teacher, articulation officer, director of casework department)? Give summary @ -no Was smoking cessation discussed for >3mins.? @ -no Was critical care preformed (if so, how long)? @ -no Were there social determinants of health that impacted care today? How? (Homelessness, low income, unemployed, alcoholism, drug addiction, transportation, low edu. Level, literacy, decrease access to med. care, nursing home, rehab)? @ -none Was there de-escalation of care discussed even if they declined (Discuss DNR or withdrawal of care, Hospice)? DNR status @ -no What co-morbidities impacted this encounter? (DM, HTN, Smoking, COPD, CAD, Cancer, CVA, ARF, Chemo, Hep., AIDS, mental health diagnosis, sleep apnea, morbid obesity)? @ -none Was patient admitted / discharged? Hospital course, mention meds given and route, prescriptions, significant lab abnormalities, going to OR and other pertinent info. @ - 55 male will be admitted for anemia CKD needing dialysis. Patient also does appear to have pneumonia will admit for IV antibiotics Admitted Undiagnosed new problem with uncertain prognosis? @ -no Drug Therapy requiring intensive monitoring for toxicity (Heparin, Nitro, Insulin, Cardizem)? @ -no Were any procedures done? @ -no Diagnosis/symptom? @ -Pneumonia Acute, or Chronic, or Acute on Chronic? @ -Acute Uncomplicated (without systemic symptoms) or Complicated (systemic symptoms)? @ -Complicated Side effects of treatment? @ -no Exacerbation, Progression, or Severe Exacerbation? @ -exacerbation Poses a threat to life or bodily function? How? (Chest pain, USA, SC, pneumonia, PE, COPD, DKA, ARF, appy, cholecystitis, CVA, Diverticulitis, Homicidal, Suicidal, threat to staff... and all critical care pts) @ -yes pneumonia on dialysis 6 Reevaluation #5: Differential Weakness: Hypoglycemia, shock, sepsis, hyponatremia, anemia, infection, SC, ETOH, adverse medicine reaction, overdose, stroke, this is not meant to be an all-inclusive list. - Consultations Consultation #1: Spoke with [facility] who agrees to admit this patient Medical Decision Making - Medical Decision Making 55 male will be admitted for anemia CKD needing dialysis. Patient also does appear to have pneumonia will admit for IV antibiotics - Lab Data Result diagrams: 06/17/25 10:00 06/17/25 10:00 Lab Results 06/16/25 06/16/25 06/16/25 Range/Units 14:01 14:01 14:01 WBC 7.52 (4.50-10.00) 10*3/uL RBC 2.10 L (4.40-5.60) 10*6/uL Hgb 6.2 L* (13.0-17.0) g/dL Hct 19.5 L* (39.6-50.0) % MCV 92.9 (80.0-97.0) fL MCH 29.5 (27.0-32.0) pg MCHC 31.8 L (32.0-37.0) g/dL Plt Count 144 (140-440) 10*3/uL MPV 9.0 L (9.5-12.2) fL Immature Gran % (Auto) 0.8 % Neutrophils % 81.8 % Lymphocytes % 9.6 % Monocytes % 6.3 % Eosinophils % 0.4 % Basophils % 1.1 % Immature Gran # 0.06 H (0.00-0.04) 10*3/uL Neutrophils # 6.16 (1.80-7.70) 10*3/uL Lymphocytes # 0.72 L (0.90-5.00) 10*3/uL Monocytes # 0.47 (0.20-1.00) 10*3/uL Eosinophils # 0.03 L (0.04-0.35) 10*3/uL Basophils # 0.08 (0.00-0.10) 10*3/uL PT 12.5 (10.0-12.5) sec INR 1.2 H (<1.2) APTT 28.1 (22.0-30.0) sec Sodium 137 (137-145) mmol/L Potassium 5.3 H (3.5-5.1) mmol/L Chloride 96 L (98-107) mmol/L Carbon Dioxide 26 (22-30) mmol/L Anion Gap 15 mmol/L BUN 79 H (9-20) mg/dL Creatinine 10.65 H* (0.66-1.25) mg/dL Est GFR (CKD-EPI)AfAm 6 (>60 ml/min/1.73 sqM) Est GFR (CKD-EPI)NonAf 5 (>60 ml/min/1.73 sqM) Glucose 91 (74-99) mg/dL Calcium 9.5 (8.4-10.2) mg/dL Phosphorus 4.1 (2.5-4.5) mg/dL Magnesium 1.5 L (1.6-2.3) mg/dL Total Bilirubin 0.6 (0.2-1.3) mg/dL AST 22 (17-59) U/L ALT 11 (4-49) U/L Alkaline Phosphatase 116 (38-126) U/L Troponin I (0.000-0.034) ng/mL NT-Pro-B Natriuret Pep 419556 pg/mL Total Protein 6.0 L (6.3-8.2) g/dL Albumin 3.4 L (3.5-5.0) g/dL Procalcitonin (0.02-0.50) ng/mL 06/16/25 06/16/25 Range/Units 14:01 14:10 WBC (4.50-10.00) 10*3/uL RBC (4.40-5.60) 10*6/uL Hgb (13.0-17.0) g/dL Hct (39.6-50.0) % MCV (80.0-97.0) fL MCH (27.0-32.0) pg MCHC (32.0-37.0) g/dL Plt Count (140-440) 10*3/uL MPV (9.5-12.2) fL Immature Gran % (Auto) % Neutrophils % % Lymphocytes % % Monocytes % % Eosinophils % % Basophils % % Immature Gran # (0.00-0.04) 10*3/uL Neutrophils # (1.80-7.70) 10*3/uL Lymphocytes # (0.90-5.00) 10*3/uL Monocytes # (0.20-1.00) 10*3/uL Eosinophils # (0.04-0.35) 10*3/uL Basophils # (0.00-0.10) 10*3/uL PT (10.0-12.5) sec INR (<1.2) APTT (22.0-30.0) sec Sodium (137-145) mmol/L Potassium (3.5-5.1) mmol/L Chloride (98-107) mmol/L Carbon Dioxide (22-30) mmol/L Anion Gap mmol/L BUN (9-20) mg/dL Creatinine (0.66-1.25) mg/dL Est GFR (CKD-EPI)AfAm (>60 ml/min/1.73 sqM) Est GFR (CKD-EPI)NonAf (>60 ml/min/1.73 sqM) Glucose (74-99) mg/dL Calcium (8.4-10.2) mg/dL Phosphorus (2.5-4.5) mg/dL Magnesium (1.6-2.3) mg/dL Total Bilirubin (0.2-1.3) mg/dL AST (17-59) U/L ALT (4-49) U/L Alkaline Phosphatase (38-126) U/L Troponin I 0.069 H* (0.000-0.034) ng/mL NT-Pro-B Natriuret Pep pg/mL Total Protein (6.3-8.2) g/dL Albumin (3.5-5.0) g/dL Procalcitonin 0.56 H (0.02-0.50) ng/mL - EKG Data -: EKG Interpreted by Me (EKG is sinus 80 IL 145 QRS 98 QTc 436) - Radiology Data Radiology results: report reviewed (Chest x-ray positive pneumonia no evidence of CHF), image reviewed Critical Care Time Critical Care Time: Yes Total Critical Care Time: 31 Disposition Clinical Impression: Anemia, Weakness, End stage renal disease on dialysis, Pneumonia Disposition: ADMITTED IP TO THIS [facility] Condition: Fair Is patient prescribed a controlled substance at d/c from ED?: No Time of Disposition: 15:00
[2025-06-16 14:09] LABS: Basophils # (A) 0.08 10*3/uL (0.00-0.10); Basophils % (A) 1.1 %; Eosinophils # (A) 0.03 10*3/uL (0.04-0.35); Eosinophils % (A) 0.4 %; Lymphocytes # (A) 0.72 10*3/uL (0.90-5.00); Lymphocytes % (A) 9.6 %; MCH 29.5 pg (27.0-32.0); MCHC 31.8 g/dL (32.0-37.0); MCV 92.9 fL (80.0-97.0); Monocytes # (A) 0.47 10*3/uL (0.20-1.00); Monocytes % (A) 6.3 %; Neutrophils # (A) 6.16 10*3/uL (1.80-7.70); Neutrophils % (A) 81.8 %; Platelet Count 144 10*3/uL (140-440); RBC 2.10 10*6/uL (4.40-5.60); RDW 18.3 % (11.5-14.5); WBC 7.52 10*3/uL (4.50-10.00)
[2025-06-16 14:16] LABS: HCT 19.5 % (39.6-50.0); HGB 6.2 g/dL (13.0-17.0)
--- NOTE | 2025-06-16 14:21 | XR ---
EXAMINATION TYPE: XR chest 2V DATE OF EXAM: 06/16/2025 2:16 PM COMPARISON: 11/22/2024 CLINICAL INDICATION: Male, 55 years old with history of Weakness: Shortness of breath TECHNIQUE: XR chest 2V views of the chest are obtained. FINDINGS: Scattered senescent parenchymal changes noted. Hyperinflation compatible with COPD. Patchy infiltrate right lower lobe. Correlate for pneumonia. Mild patchy density left lower lobe as w ell. Findings may in part be chronic in nature. Heart size is stable. Mediastinal structures are stable and grossly unremarkable. No evidence for hilar prominence. Degenerative changes dorsal spine. IMPRESSION: 1. Patchy infiltrate right lower lobe. Correlate for pneumonia. Mild patchy density left lower lobe a s well. Findings may in part be chronic in nature. [facility], , 06/16/2025 2:18 PM
[2025-06-16 14:27] LABS: ALT 11 U/L (4-49); AST 22 U/L (17-59); African American GFR (CKD) 6 (>60 ml/min/1.73 sqM); Albumin 3.4 g/dL (3.5-5.0); Alkaline Phosphatase 116 U/L (38-126); Anion Gap 15 mmol/L; Blood Urea Nitrogen 79 mg/dL (9-20); Calcium 9.5 mg/dL (8.4-10.2); Carbon Dioxide 26 mmol/L (22-30); Chloride 96 mmol/L (98-107); Glucose 91 mg/dL (74-99); Magnesium 1.5 mg/dL (1.6-2.3); Non-African American GFR(CKD) 5 (>60 ml/min/1.73 sqM); Potassium 5.3 mmol/L (3.5-5.1); Sodium 137 mmol/L (137-145); Total Protein 6.0 g/dL (6.3-8.2)
[2025-06-16 14:45] LABS: INR 1.2 (<1.2); Partial Thromboplastin Time 28.1 sec (22.0-30.0); Prothrombin Time 12.5 sec (10.0-12.5)
[2025-06-16 14:57] LABS: NT-Pro-B-Type Natriuretic Pept 109000 pg/mL
[2025-06-16] MEDS ORDERED: NALOXONE 0.4 MG/ML 1 ML VIAL IV PRN (15:33)
[2025-06-16] MEDS ORDERED: VANCOMYCIN IV PER PHARMACY 1 EACH MISC MISCELLANE PRN (15:35)
[2025-06-16] MEDS: CEFEPIME 2 GM in SODIUM CHLORIDE 0.9% 100 ML IVPB STA (16:42)
[2025-06-16] MEDS ORDERED: LACTULOSE 20 GM/30 ML CUP PO PRN (16:53)
[2025-06-16] MEDS ORDERED: CALCIUM ACETATE 667 MG TAB PO PRN (16:53)
[2025-06-16] MEDS: VANCOMYCIN 1,000 MG in SODIUM CHLORIDE 0.9% 250 ML IVPB STA (17:37)
[2025-06-16] MEDS: SEVELAMER 800 MG TAB PO SCH (17:44)
[2025-06-16] MEDS: SODIUM CHLORIDE 0.9% 1,000 ML IV SCH (17:44)
[2025-06-16] MEDS: CALCIUM ACETATE 667 MG TAB PO SCH (17:44)
[2025-06-16] MEDS: PANTOPRAZOLE 40 MG TABLET PO SCH (20:34)
[2025-06-16] MEDS: amLODIPine 5 MG TAB PO SCH (20:34)
[2025-06-16] MEDS: levETIRAcetam 500 MG TAB PO SCH (20:35)
[2025-06-16] MEDS: ATORVASTATIN 80 MG TAB PO SCH (20:35)
[2025-06-16] MEDS: DOXAZOSIN 2 MG TAB PO SCH (20:36)
[2025-06-16] MEDS: METOPROLOL TARTRATE 50 MG TAB PO SCH (20:36)
[2025-06-16] MEDS: HYDROcodone/APAP 5-325MG 1 EACH TAB PO PRN (22:11)
[2025-06-16 23:44] LABS: Basophils # (A) 0.06 10*3/uL (0.00-0.10); Basophils % (A) 0.8 %; Eosinophils # (A) 0.05 10*3/uL (0.04-0.35); Eosinophils % (A) 0.6 %; HCT 21.3 % (39.6-50.0); Lymphocytes # (A) 0.83 10*3/uL (0.90-5.00); Lymphocytes % (A) 10.4 %; MCH 29.7 pg (27.0-32.0); MCHC 31.9 g/dL (32.0-37.0); MCV 93.0 fL (80.0-97.0); Monocytes # (A) 0.39 10*3/uL (0.20-1.00); Monocytes % (A) 4.9 %; Neutrophils # (A) 6.56 10*3/uL (1.80-7.70); Neutrophils % (A) 82.3 %; Platelet Count 128 10*3/uL (140-440); RBC 2.29 10*6/uL (4.40-5.60); RDW 18.4 % (11.5-14.5); WBC 7.97 10*3/uL (4.50-10.00)
[2025-06-16 23:57] LABS: HGB 6.8 g/dL (13.0-17.0)
--- NOTE | 2025-06-17 00:55 | P.CNPUL ---
History of Present Illness Consult date: 06/17/25 Requesting physician: Aixa Robison Reason for consult: pneumonia Chief complaint: Abnormal labs at hemodialysis History of present illness: 55-year-old male with past medical history significant for end-stage renal disease maintained on a Saturday, Saturday, Saturday schedule, hypertension, hyperlipidemia, coronary disease with previous stents, paroxysmal atrial fibrillation, GI bleed, peptic ulcers, hemorrhoids with hemorrhoidectomy, chronic anemia, seizure disorder, CVA/TIA, pericardial effusion with previous window, left empyema with VATS and lung decortication, ongoing 1 pack/day smoker, COPD, and chronic hypoxemic respiratory failure maintained on 2 to 3 L of supplemental oxygen at home by nasal cannula. Patient sent to the emergency department yesterday afternoon with abnormal labs and low hemoglobin when going to his hemodialysis appointment. He had to miss the session of hemodialysis. Hemoglobin was 6.2 g/dL on arrival. Status post 1 unit PRBC transfusion. Repeat up to 6.8 g/dL, and another unit of PRBCs is ordered. Blood pressures remain stable. No overt signs of active bleeding noted. Chest x-ray showing bilateral patchy infiltrates concerning for pneumonia or developing pulmonary edema. He was placed on antibiotics in the ED in the form of vancomycin and cefepime. Most recent CBC with a WBC count of 7.97, hemoglobin 6.8, platelets 128,000. CMP with a sodium 137, potassium 5.3, chloride 96, serum bicarb 26, BUN 79, creatinine 10.65, glucose 91. Magnesium 1.5. Troponin 0.069. NT proBNP 109,000. Currently being evaluated in the cardiac stepdown unit. He is resting comfortably on 2 L/min nasal cannula, which he wears at home. Denies any increased shortness of breath. Does report a intermittent dry cough over the last few months. He does have history of COPD. Does not use any inhalers routinely. He is a current 1 pack/day smoker. Denies any chest congestion, sputum production, hemoptysis, pleurisy. Denies fevers or chills. Denies sick contacts. Has been afebrile inpatient. He denies any nausea or vomiting or hematemesis. Denies any melanotic stools or hematochezia. Denies any abdominal pain. Plavix listed as a home medication. Denies any chest pain,, lower extremity edema heart palpitations, syncopal events. Most recent available echocardiogram from February 2024 estimating a left ventricular ejection fraction of nearly 50% with mild LVH and inferobasal hypokinesia. Mild valvular abnormalities reported including mitral regurgitation, tricuspid regurgitation, and aortic stenosis. Current vital signs: Temperature 98.5 F, heart rate 73 bpm, blood pressure 162/81 mmHg, nontachypneic, SpO2 recorded at 97% on 2 L/min nasal cannula. Review of Systems REVIEW OF SYSTEMS: CONSTITUTIONAL: Denies any recent significant weight loss or weight gain. EYES: Denies change in vision. EARS, NOSE, MOUTH, THROAT: Denies headaches, sinus pressure, rhinorrhea, sore throat. CARDIOVASCULAR: Denies chest pain, palpitations or syncopal episodes. RESPIRATORY: See HPI GASTROINTESTINAL: See HPI GENITOURINARY: Denies hematuria, denies infections. MUSKULOSKELETAL: Denies pain, denies swelling. INTEGUMENTARY: Denies rash, denies eczema. NEUROLOGICAL: Denies recent memory loss, no recent seizure activity. PSYCHIATRIC: Denies anxiety, denies depression. HEMATOLOGIC/LYMPHATIC: Denies anemia, denies enlarged lymph node 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, pericardial effusion, spinal stenosis, DDD, chronic cervical and back pain, 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 eye injection with steroid on 04/04 for eye "stroke" , history of left-sided thoracentesis in January 2018, lungs tapped Past Anesthesia/Blood Transfusion Reactions: No Reported Reaction Additional Past Anesthesia/Blood Transfusion Reaction / Comment(s): Pt has received blood in past without reaction. Date of Last Stent Placement:: 2021 Past Psychological History: No Psychological Hx Reported Additional Psychological History / Comment(s): Pt resides with his spouse. He drives rarely. His spouse takes him to appts or his sister does. He is otherwise independent. He has O2 and a nebulizer Smoking Status: Current every day smoker Past Alcohol Use History: None Reported Additional Past Alcohol Use History / Comment(s): Patient was a smoker one pack per day since he was 19-18 years of age. Past Drug Use History: None Reported - Past Family History Father Family Medical History: Cancer, CVA/TIA, Myocardial Infarction ([place]) Additional Family Medical History / Comment(s): Father had lymphoma. He had a CVA. Mother Family Medical History: CVA/TIA Additional Family Medical History / Comment(s): Mother had a CVA. Sister(s) Additional Family Medical History / Comment(s): Patient has 5 sisters one has from an aneurysm in the brain. 2 sisters have history of kidney stones. Patient has one brother that was shot as cause of , he was on the kidney transplant list. Patient has 6 children with no major medical problems. Medications and Allergies Home Medications Medication Instructions Recorded Confirmed Type Sevelamer [Renvela] 1,600 mg PO TID-W/MEALS 06/16/19 06/16/25 History Pantoprazole [Protonix] 40 mg PO BID 04/08/20 06/16/25 History hydrALAZINE HCL [Apresoline] 100 mg PO TID 04/08/20 06/16/25 History amLODIPine [Norvasc] 5 mg PO BID 05/30/20 06/16/25 History Calcium Acetate [PhosLo] 1,334 mg PO TID-W/MEALS 12/15/20 06/16/25 History levETIRAcetam [Keppra] 1,000 mg PO BID 09/20/22 06/16/25 History Atorvastatin [Lipitor] 80 mg PO HS 01/21/23 06/16/25 History Clopidogrel [Plavix] 75 mg PO DAILY@1600 01/21/23 06/16/25 History Metoprolol Tartrate [Lopressor] 50 mg PO BID 01/21/23 06/16/25 History Isosorbide Mononitrate ER [Imdur] 30 mg PO DAILY 30 Days #30 tab 02/01/23 06/16/25 Rx cloNIDine HCL [Catapres] 0.3 mg PO DAILY PRN 02/23/24 06/16/25 History Calcium Acetate [Phoslo] 1,334 mg PO DAILY PRN 11/22/24 06/16/25 History Doxazosin [Cardura] 4 mg PO BID 11/22/24 06/16/25 History Lactulose 10 gm PO DAILY PRN 11/22/24 06/16/25 History Nitroglycerin Sl Tabs [Nitrostat] 0.4 mg SL Q5M PRN 11/22/24 06/16/25 History cloNIDine HCL [Catapres] 0.1 mg PO HS 11/22/24 06/16/25 History Allergies Allergy/AdvReac Type Severity Reaction Status Date / Time baclofen AdvReac "too Verified 06/16/25 13:38 strong/sedated" hydromorphone [From Dilaudid] AdvReac Hallucinati Verified 06/16/25 13:38 ons morphine AdvReac Hallucinati Verified 06/16/25 13:38 ons tramadol AdvReac Hallucinati Verified 06/16/25 13:38 ons Physical Exam Vitals: Vital Signs Temp Pulse Pulse Resp BP BP Pulse Ox 06/16/25 23:44 98.5 F 73 18 162/81 97 06/16/25 21:17 98.1 F 78 16 176/82 99 06/16/25 20:41 98.6 F 78 19 198/97 97 06/16/25 19:33 98.7 F 84 18 194/91 96 06/16/25 18:34 98.5 F 77 19 184/96 97 06/16/25 18:14 98.7 F 77 19 180/100 97 06/16/25 18:04 98.8 F 84 20 180/94 98 06/16/25 16:00 81 18 156/72 91 L 06/16/25 15:36 78 16 187/79 93 L 06/16/25 13:35 98.7 F 75 18 154/78 90 L Intake and Output 06/16/25 06/16/25 06/17/25 14:59 22:59 06:59 Intake Total 297 Output Total 0 Balance 297 0 Intake: IV 10 Invasive Line 2 10 Blood Product 287 Rc Pheresis As-3 Unit 287 [id number] Output: Urine 0 Other: Weight 58.967 kg 58.967 kg GENERAL EXAM: Alert, 55-year-old male, comfortable in no apparent distress. HEAD: Normocephalic and atraumatic EYES: Normal reaction of pupils, equal size. NOSE: Clear with pink turbinates. THROAT: No erythema or exudates. NECK: No masses, no JVD. CHEST: No chest wall deformity. LUNGS: Equal air entry with no crackles, wheeze, rhonchi or dullness. On 2 L/min nasal cannula. No conversational dyspnea or accessory muscle use.. CVS: S1 and S2 normal with no audible murmur, regular rhythm. No extra heart sounds ABDOMEN: No hepatosplenomegaly, active bowel sounds, no guarding or rigidity. SPINE: No scoliosis or deformity SKIN: No rashes CENTRAL NERVOUS SYSTEM: No focal deficits, tone is normal in all 4 extremities. EXTREMITIES: There is no peripheral edema, clubbing, or cyanosis. Peripheral pulses are intact. Results - Laboratory Findings CBC and BMP: 06/16/25 23:25 06/16/25 14:01 PT/INR, D-dimer PT 12.5 sec (10.0-12.5) 06/16/25 14:01 INR 1.2 (<1.2) H 06/16/25 14:01 Abnormal lab findings: Abnormal Labs 06/16/25 06/16/25 06/16/25 14:01 14:01 14:01 RBC 2.10 L Hgb 6.2 L* Hct 19.5 L* MCHC 31.8 L Plt Count MPV 9.0 L Immature Gran # 0.06 H Lymphocytes # 0.72 L Eosinophils # 0.03 L INR 1.2 H Potassium 5.3 H Chloride 96 L BUN 79 H Creatinine 10.65 H* Magnesium 1.5 L Troponin I Total Protein 6.0 L Albumin 3.4 L Crossmatch 06/16/25 06/16/25 06/16/25 14:01 16:27 23:25 RBC 2.29 L Hgb 6.8 L* Hct 21.3 L MCHC 31.9 L Plt Count 128 L MPV 8.6 L Immature Gran # 0.08 H Lymphocytes # 0.83 L Eosinophils # INR Potassium Chloride BUN Creatinine Magnesium Troponin I 0.069 H* Total Protein Albumin Crossmatch See Detail - Diagnostic Findings Chest x-ray: image reviewed Assessment and Plan Assessment: Anemia, hemoglobin 6.2 g/dL on arrival, has received 1 unit of PRBCs, repeat hemoglobin up to 6.8 g/dL, and an additional unit is ordered. No overt signs of bleeding. End-stage renal disease, maintained on hemodialysis on a Saturday, Saturday, schedule; he had to miss a session of dialysis secondary to above Suspect mild fluid overload, secondary to above, chest x-ray showing bilateral patchy infiltrates concerning for developing pulmonary edema or possible pneumonia. Chronic obstructive pulmonary disease, inactive Chronic hypoxemic respiratory failure, normally maintained on 2 to 3 L/min nasal cannula while at home Current ongoing tobacco dependence, 1 pack/day smoker History of left lung empyema with VATS and lung decortication Hypertension History of hyperlipidemia History of coronary artery disease with previous PCI/stents History of ischemic cardiomyopathy, most recent echocardiogram from February, estimated left ventricular ejection fraction of 50% and mild valvular abnormalities. History of pericardial effusion with previous window History of paroxysmal atrial fibrillation, not on anticoagulation History of GI bleed and peptic ulcers History of hemorrhoids with previous hemorrhoidectomy Anemia of chronic kidney disease, however, hemoglobin lower than baseline History of CVA/TIA History of seizure disorder Plan: Patient is status post 1 unit PRBCs transfusion with an additional unit ordered Monitor H&H, and transfuse for hemoglobin less than 7 g/dL Hemodynamics have remained stable, no need for vasopressors Currently on 2 L/min nasal cannula, which he wears at home Denies any pulmonary symptoms Chest x-ray reviewed bilateral patchy infiltrates Patient had to miss hemodialysis secondary to abnormal labs NT-proBNP significantly elevated at 109,000 Previously started on empiric antibiotics Procalcitonin level pending Nephrology is consulted for hemodialysis management Repeat chest x-ray after hemodialysis Case will be reviewed with Dr. Leggett I have personally seen and examined the patient, performed the documentation and the assessment and plan as written. Number of minutes spent on the visit:20 This dictation was produced using [facility] dictation software please excuse gramma tical errors Time with Patient: Greater than 30
--- NOTE | 2025-06-17 01:17 | HP ---
HISTORY AND PHYSICAL CHIEF COMPLAINT: Weakness. HISTORY OF PRESENT ILLNESS: This 55-year-old gentleman with a past history of chronic end-stage renal disease, on hemodialysis for several years, was complaining of weakness. The patient was found low hemoglobin today at dialysis, was noted on hemoglobin 6.2. The patient was sent to [facility]. There is no history of any fever, rigors, or chills. The patient reports some bleeding post dialysis from the AV graft site. The patient also had apparently gastric ulcers and other issues with EGD done by Dr. Crowe previously. Chest x-ray showed suspicious pneumonia on the right, right side. We will continue to monitor. I would recommend serum procalcitonin evaluation also. PAST MEDICAL HISTORY: Reviewed include atrial fibrillation, CVA, TIA, hemodialysis, seizure disorder, multiple complex medical issues, CAD stent. Rest of history and rest of the chart is also reviewed. HOME MEDICATIONS: Reviewed, include Keppra. Dose and rest of medications reviewed. ALLERGIES: Baclofen. FAMILY HISTORY: History of CVA, TIA, myocardial infarction. SOCIAL HISTORY: History of smoking. REVIEW OF SYSTEMS: A 14-point review of systems negative except as mentioned earlier. PHYSICAL EXAMINATION: VITAL SIGNS: Pulse is 81, blood pressure 156/67, and respirations 18. HEENT: Conjunctivae pale. Oral mucosa pale. NECK: No JVD. CARDIOVASCULAR: S1, S2. RESPIRATIONS: A few scattered rhonchi. ABDOMEN: Soft, nontender. LEGS: No edema. NERVOUS SYSTEM: No focal deficits. Examination of the right forearm AV graft present. No obvious bleeding noted. LABORATORY DATA: Hemoglobin 6.2. Rest of the labs are noted. ASSESSMENT: 1. Anemia, acute on chronic, rule out GI blood loss anemia. 2. Rule out pneumonia versus fluid overload. 3. History of gastric ulcer. 4. End-stage renal disease, on hemodialysis. 5. Troponin 0.069, indeterminate. 6. History of atrial fibrillation. 7. History of CVA, TIA. 8. Hypertension. 9. History of hyperlipidemia. 10.History of myocardial infarction. 11.History of seizure disorder. 12.History of CAD stent. RECOMMENDATIONS AND DISCUSSION: This 55-year-old gentleman presented with multiple complex medical issues. We will monitor the patient closely. I would recommend to continue the current medication, and transfusion. Consult Dr. Crowe for possible endoscopy. Cardiology evaluation. Resume the home medications once they are confirmed. Prognosis extremely guarded because of multiple complex medical issues and further recommendations to follow. See orders for details. Discussed with the at the bedside. MMODL / IJN: [id number] /
[2025-06-17] MEDS: FUROSEMIDE 10 MG/ML 10 ML VIAL IV STA (02:37)
[2025-06-17 05:10] VITALS: RESP 18
[2025-06-17] MEDS: ISOSORBIDE MONONITRATE ER 30 MG TAB.ER.24H PO SCH (08:25)
--- NOTE | 2025-06-17 09:59 | P.NPCON ---
History of Present Illness - Reason for Consult end stage renal disease - History of Present Illness Reason for consultation: End-stage renal disease History of present illness: Patient is a 55-year-old male seen in renal consultation for end-stage renal disease. He is maintained on hemodialysis on Saturday schedule. Patient was sent from the dialysis unit due to low hemoglobin. Hemoglobin on admission was 6.2. He did receive blood transfusions and hemoglobin as of yesterday evening was 6.8. Patient denies any active bleeding. Denies melena hematochezia. No hematuria. No hemoptysis. He does admit to taking Plavix. He does have history of coronary disease with 1 stent. Denies history of diabetes. Makes minimal urine. He is scheduled undergo dialysis today. No vomiting or diarrhea. He does smoke cigarettes. Vital signs are stable. General: No acute distress. HEENT: Head exam is unremarkable. On nasal cannula. LUNGS: No audible rhonchi or wheezes. HEART: Rate and Rhythm are regular. ABDOMEN: Non-tender. EXTREMITITES: No edema. 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 eye injection with steroid on 04/04 for eye "stroke" , history of left-sided thoracentesis in January 2018, lungs tapped Past Anesthesia/Blood Transfusion Reactions: No Reported Reaction Additional Past Anesthesia/Blood Transfusion Reaction / Comment(s): Pt has received blood in past without reaction. Date of Last Stent Placement:: 2021 Past Psychological History: No Psychological Hx Reported Additional Psychological History / Comment(s): Pt resides with his spouse. He drives rarely. His spouse takes him to appts or his sister does. He is otherwise independent. He has O2 and a nebulizer Smoking Status: Current every day smoker Past Alcohol Use History: None Reported Additional Past Alcohol Use History / Comment(s): Patient was a smoker one pack per day since he was 19-18 years of age. Past Drug Use History: None Reported - Past Family History Father Family Medical History: Cancer, CVA/TIA, Myocardial Infarction ([place]) Additional Family Medical History / Comment(s): Father had lymphoma. He had a CVA. Mother Family Medical History: CVA/TIA Additional Family Medical History / Comment(s): Mother had a CVA. Sister(s) Additional Family Medical History / Comment(s): Patient has 5 sisters one has from an aneurysm in the brain. 2 sisters have history of kidney stones. Patient has one brother that was shot as cause of , he was on the kidney transplant list. Patient has 6 children with no major medical problems. Medications and Allergies Home Medications Medication Instructions Recorded Confirmed Type Sevelamer [Renvela] 1,600 mg PO TID-W/MEALS 06/16/19 06/16/25 History Pantoprazole [Protonix] 40 mg PO BID 04/08/20 06/16/25 History hydrALAZINE HCL [Apresoline] 100 mg PO TID 04/08/20 06/16/25 History amLODIPine [Norvasc] 5 mg PO BID 05/30/20 06/16/25 History Calcium Acetate [PhosLo] 1,334 mg PO TID-W/MEALS 12/15/20 06/16/25 History levETIRAcetam [Keppra] 1,000 mg PO BID 09/20/22 06/16/25 History Atorvastatin [Lipitor] 80 mg PO HS 01/21/23 06/16/25 History Clopidogrel [Plavix] 75 mg PO DAILY@1600 01/21/23 06/16/25 History Metoprolol Tartrate [Lopressor] 50 mg PO BID 01/21/23 06/16/25 History Isosorbide Mononitrate ER [Imdur] 30 mg PO DAILY 30 Days #30 tab 02/01/23 06/16/25 Rx cloNIDine HCL [Catapres] 0.3 mg PO DAILY PRN 02/23/24 06/16/25 History Calcium Acetate [Phoslo] 1,334 mg PO DAILY PRN 11/22/24 06/16/25 History Doxazosin [Cardura] 4 mg PO BID 11/22/24 06/16/25 History Lactulose 10 gm PO DAILY PRN 11/22/24 06/16/25 History Nitroglycerin Sl Tabs [Nitrostat] 0.4 mg SL Q5M PRN 11/22/24 06/16/25 History cloNIDine HCL [Catapres] 0.1 mg PO HS 11/22/24 06/16/25 History Allergies Allergy/AdvReac Type Severity Reaction Status Date / Time baclofen AdvReac "too Verified 06/16/25 13:38 strong/sedated" hydromorphone [From Dilaudid] AdvReac Hallucinati Verified 06/16/25 13:38 ons morphine AdvReac Hallucinati Verified 06/16/25 13:38 ons tramadol AdvReac Hallucinati Verified 06/16/25 13:38 ons Physical Exam Vitals: Vital Signs Temp Pulse Pulse Resp BP BP Pulse Ox 06/17/25 08:20 99 F 77 18 180/88 95 06/17/25 05:00 97.6 F 79 79 18 182/88 182/88 94 L 06/17/25 02:38 98.7 F 75 16 192/91 97 06/17/25 02:19 98.4 F 79 16 195/89 97 06/17/25 02:09 98.3 F 73 18 190/90 97 06/16/25 23:44 98.5 F 73 18 162/81 97 06/16/25 21:17 98.1 F 78 16 176/82 99 06/16/25 20:41 98.6 F 78 19 198/97 97 06/16/25 19:33 98.7 F 84 18 194/91 96 06/16/25 18:34 98.5 F 77 19 184/96 97 06/16/25 18:14 98.7 F 77 19 180/100 97 06/16/25 18:04 98.8 F 84 20 180/94 98 06/16/25 16:00 81 18 156/72 91 L 06/16/25 15:36 78 16 187/79 93 L 06/16/25 13:35 98.7 F 75 18 154/78 90 L Intake and Output 06/16/25 06/17/25 06/17/25 22:59 06:59 14:59 Intake Total 307 288 118 Output Total 0 Balance 307 288 118 Intake: IV 20 Invasive Line 1 10 Invasive Line 2 10 Oral 118 Blood Product 287 288 Rc Pheresis As-3 Unit 287 [id number] Rc Pheresis As-3 Unit 288 [id number] Output: Urine 0 Other: Weight 58.967 kg 66.2 kg Results - Lab Results Most recent lab results Calcium 9.5 mg/dL (8.4-10.2) 06/16/25 14:01 Phosphorus 4.1 mg/dL (2.5-4.5) 06/16/25 14:01 Magnesium 1.5 mg/dL (1.6-2.3) L 06/16/25 14:01 06/16/25 23:25 06/16/25 14:01 Assessment and Plan Plan: Assessment: 1. End-stage renal disease maintained on hemodialysis on Saturday schedule. 2. Acute blood loss anemia status post blood transfusions. GI consulted. 3. Hypertension with chronic kidney disease. 4. 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 5. History of seizures. 6. Coronary disease with stent placement. Plan: Hemodialysis today and again tomorrow. Check iron studies. IV DDAVP x 1 dose today. Add Aranesp. Thank you for the consultation. I will continue to follow the patient with you during his hospital stay.
[2025-06-17 10:18] LABS: Basophils # (A) 0.08 10*3/uL (0.00-0.10); Basophils % (A) 0.9 %; Eosinophils # (A) 0.06 10*3/uL (0.04-0.35); Eosinophils % (A) 0.7 %; HCT 25.1 % (39.6-50.0); HGB 7.8 g/dL (13.0-17.0); Lymphocytes # (A) 0.60 10*3/uL (0.90-5.00); Lymphocytes % (A) 6.9 %; MCH 28.7 pg (27.0-32.0); MCHC 31.1 g/dL (32.0-37.0); MCV 92.3 fL (80.0-97.0); Monocytes # (A) 0.37 10*3/uL (0.20-1.00); Monocytes % (A) 4.3 %; Neutrophils # (A) 7.48 10*3/uL (1.80-7.70); Neutrophils % (A) 86.4 %; Platelet Count 138 10*3/uL (140-440); RBC 2.72 10*6/uL (4.40-5.60); RDW 19.3 % (11.5-14.5); WBC 8.66 10*3/uL (4.50-10.00)
[2025-06-17 10:33] LABS: ALT 11 U/L (4-49); AST 20 U/L (17-59); African American GFR (CKD) 5 (>60 ml/min/1.73 sqM); Albumin 3.7 g/dL (3.5-5.0); Alkaline Phosphatase 94 U/L (38-126); Anion Gap 18 mmol/L; Blood Urea Nitrogen 88 mg/dL (9-20); Calcium 9.5 mg/dL (8.4-10.2); Carbon Dioxide 24 mmol/L (22-30); Chloride 99 mmol/L (98-107); Glucose 99 mg/dL (74-99); Magnesium 1.4 mg/dL (1.6-2.3); Non-African American GFR(CKD) 4 (>60 ml/min/1.73 sqM); Potassium 5.5 mmol/L (3.5-5.1); Sodium 141 mmol/L (137-145); Total Protein 6.3 g/dL (6.3-8.2)
[2025-06-17] MEDS: DESMOPRESSIN ACETATE 20 MCG in SODIUM CHLORIDE 0.9% 50 ML IVPB ONE (10:59)
--- NOTE | 2025-06-17 11:22 | P.CRDCN ---
History of Present Illness Consult date: 06/17/25 Reason for Consult (text): Elevated troponins History of present illness: This is a 55-year-old male patient of Dr. Mayorga with past medical history of coronary artery disease with previous PTCA of the proximal LAD in 2021, hypertension, mixed hyperlipidemia, paroxysmal atrial fibrillation not on anticoagulation, end-stage renal disease on hemodialysis. We have been asked to evaluate the patient for elevated troponins. Patient states that he was contacted because his hemoglobin was low and he needed a blood transfusion and was told to come into the hospital. He denies shortness of breath no lower extremity edema. Patient denies chest pain or chest pressure. Blood pressure 180/88, heart rate 77, pulse ox 95% on 3 L nasal cannula. Patient has been resumed on his home cardiac medications and is status post IV antibiotics. Plavix was placed on hold. Patient is status post 1 dose of IV Lasix 80 mg. -EKG: Sinus rhythm with no acute ST-T wave changes. -Chest x-ray: Patchy infiltrate right lower lobe correlate for pneumonia. Mild patchy density left lower lobe as well. Findings are chronic in nature. -Laboratory studies: Initial hemoglobin 6.2 and this morning 7.8 after transfusion of 2 units of packed RBCs. Platelet count 138, potassium 5.5, BUN 88 and creatinine 11.3. Troponin 0.069. proBNP 109,000. -Home cardiac medications: Amlodipine 5 mg twice daily, atorvastatin 80 mg at bedtime, Catapres 0.1 mg at bedtime and 0.3 mg daily as needed, Plavix 75 mg daily, hydralazine 100 mg 3 times daily, Imdur 30 mg daily, Lopressor 50 mg twice daily, Nitrostat as needed -Cardiac catheterization in 2021 revealed 70% distal left main, 30% proximal circumflex, 30% mid circumflex, 30% mid RCA, right dominant. Patient underwent PTCA of the distal left main and proximal LAD. Echocardiogram performed 08/19/2024 revealed normal EF, mild MR, mild TR. -Lexiscan Cardiolite stress test performed 08/05/2024 revealed EF 57% and probably normal study. Review Of Systems: At the time of my exam: CONSTITUTIONAL: Denies fever or chills. HEENT: Denies blurred vision, vision changes, or eye pain. Denies hemoptysis CARDIOVASCULAR: Denies chest pain. Denies orthopnea. Denies PND. Denies palpitations RESPIRATORY: Denies shortness of breath. GASTROINTESTINAL: Denies abdominal pain. Denies nausea or vomiting. HEMATOLOGIC: Denies bleeding disorders. GENITOURINARY: Denies any blood in urine. SKIN: Denies puritis. Denies rash. Physical examination: Gen: This is a 55-year-old male in no acute distress. VS: reviewed HEENT: Head is atraumatic, normocephalic. Pupils equal, round. Sclerae is anicteric. NECK: Supple. No JVD. LUNGS: Clear to auscultation. No wheezes or rhonchi. No intercostal retractions. HEART: Regular rate and rhythm. Systolic ejection murmur at the base. ABDOMEN: Soft No tenderness. EXTREMITIES: No pedal edema. No calf tenderness. NEUROLOGICAL: Patient is awake, alert and oriented x3. Assessment: Anemia presenting with hemoglobin of 6.2 Acute blood loss anemia status posttransfusion of 2 units packed RBCs, GI on consult Chronically elevated troponin due to renal disease Chronically elevated proBNP History of coronary artery disease with previous PTCA of the proximal LAD in 2021 Hypertension Mixed hyperlipidemia Paroxysmal atrial fibrillation not on anticoagulation Plan: Resume patient's home cardiac medications Echocardiogram canceled as patient refused Further recommendations to follow based upon clinical course Thank you kindly for this consultation. Nurse practitioner note has been reviewed, I agree with documented findings and plan of care. Patient was seen and examined. 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 eye injection with steroid on 04/04 for eye "stroke" , history of left-sided thoracentesis in January 2018, lungs tapped Past Anesthesia/Blood Transfusion Reactions: No Reported Reaction Additional Past Anesthesia/Blood Transfusion Reaction / Comment(s): Pt has received blood in past without reaction. Date of Last Stent Placement:: 2021 Past Psychological History: No Psychological Hx Reported Additional Psychological History / Comment(s): Pt resides with his spouse. He drives rarely. His spouse takes him to [email or web address] or his sister does. He is otherwise independent. He has O2 and a nebulizer Smoking Status: Current every day smoker Past Alcohol Use History: None Reported Additional Past Alcohol Use History / Comment(s): Patient was a smoker one pack per day since he was 19-20 years of age. Past Drug Use History: None Reported - Past Family History Father Family Medical History: Cancer, CVA/TIA, Myocardial Infarction ([place]) Additional Family Medical History / Comment(s): Father had lymphoma. He had a CVA. Mother Family Medical History: CVA/TIA Additional Family Medical History / Comment(s): Mother had a CVA. Sister(s) Additional Family Medical History / Comment(s): Patient has 5 sisters one has from an aneurysm in the brain. 2 sisters have history of kidney stones. Patient has one brother that was shot as cause of , he was on the kidney transplant list. Patient has 6 children with no major medical problems. Medications and Allergies Home Medications Medication Instructions Recorded Confirmed Type Sevelamer [Renvela] 1,600 mg PO TID-W/MEALS 06/16/19 06/16/25 History Pantoprazole [Protonix] 40 mg PO BID 04/08/20 06/16/25 History hydrALAZINE HCL [Apresoline] 100 mg PO TID 04/08/20 06/16/25 History amLODIPine [Norvasc] 5 mg PO BID 05/30/20 06/16/25 History Calcium Acetate [PhosLo] 1,334 mg PO TID-W/MEALS 12/15/20 06/16/25 History levETIRAcetam [Keppra] 1,000 mg PO BID 09/20/22 06/16/25 History Atorvastatin [Lipitor] 80 mg PO HS 01/21/23 06/16/25 History Clopidogrel [Plavix] 75 mg PO DAILY@1600 01/21/23 06/16/25 History Metoprolol Tartrate [Lopressor] 50 mg PO BID 01/21/23 06/16/25 History Isosorbide Mononitrate ER [Imdur] 30 mg PO DAILY 30 Days #30 tab 02/01/23 06/16/25 Rx cloNIDine HCL [Catapres] 0.3 mg PO DAILY PRN 02/23/24 06/16/25 History Calcium Acetate [Phoslo] 1,334 mg PO DAILY PRN 11/22/24 06/16/25 History Doxazosin [Cardura] 4 mg PO BID 11/22/24 06/16/25 History Lactulose 10 gm PO DAILY PRN 11/22/24 06/16/25 History Nitroglycerin Sl Tabs [Nitrostat] 0.4 mg SL Q5M PRN 11/22/24 06/16/25 History cloNIDine HCL [Catapres] 0.1 mg PO HS 11/22/24 06/16/25 History Allergies Allergy/AdvReac Type Severity Reaction Status Date / Time baclofen AdvReac "too Verified 06/16/25 13:38 strong/sedated" hydromorphone [From Dilaudid] AdvReac Hallucinati Verified 06/16/25 13:38 ons morphine AdvReac Hallucinati Verified 06/16/25 13:38 ons tramadol AdvReac Hallucinati Verified 06/16/25 13:38 ons Physical Exam Vitals: Vital Signs Temp Pulse Pulse Resp BP BP Pulse Ox 06/17/25 05:00 97.6 F 79 79 18 182/88 182/88 94 L 06/17/25 02:38 98.7 F 75 16 192/91 97 06/17/25 02:19 98.4 F 79 16 195/89 97 06/17/25 02:09 98.3 F 73 18 190/90 97 06/16/25 23:44 98.5 F 73 18 162/81 97 06/16/25 21:17 98.1 F 78 16 176/82 99 06/16/25 20:41 98.6 F 78 19 198/97 97 06/16/25 19:33 98.7 F 84 18 194/91 96 06/16/25 18:34 98.5 F 77 19 184/96 97 06/16/25 18:14 98.7 F 77 19 180/100 97 06/16/25 18:04 98.8 F 84 20 180/94 98 06/16/25 16:00 81 18 156/72 91 L 06/16/25 15:36 78 16 187/79 93 L 06/16/25 13:35 98.7 F 75 18 154/78 90 L Intake and Output 06/16/25 06/17/25 06/17/25 22:59 06:59 14:59 Intake Total 307 288 Output Total 0 Balance 307 288 Intake: IV 20 Invasive Line 1 10 Invasive Line 2 10 Blood Product 287 288 Rc Pheresis As-3 Unit 287 [id number] Rc Pheresis As-3 Unit 288 [id number] Output: Urine 0 Other: Weight 58.967 kg 66.2 kg Results 06/17/25 10:00 06/17/25 10:00 Cardiac Enzymes 06/16/25 06/16/25 Range/Units 14:01 14:01 AST 22 (17-59) U/L Troponin I 0.069 H* (0.000-0.034) ng/mL Coagulation 06/16/25 Range/Units 14:01 PT 12.5 (10.0-12.5) sec APTT 28.1 (22.0-30.0) sec CBC 06/16/25 06/16/25 Range/Units 14:01 23:25 WBC 7.52 7.97 (4.50-10.00) 10*3/uL RBC 2.10 L 2.29 L (4.40-5.60) 10*6/uL Hgb 6.2 L* 6.8 L* (13.0-17.0) g/dL Hct 19.5 L* 21.3 L (39.6-50.0) % Plt Count 144 128 L (140-440) 10*3/uL Comprehensive Metabolic Panel 06/16/25 Range/Units 14:01 Sodium 137 (137-145) mmol/L Potassium 5.3 H (3.5-5.1) mmol/L Chloride 96 L (98-107) mmol/L Carbon Dioxide 26 (22-30) mmol/L BUN 79 H (9-20) mg/dL Creatinine 10.65 H* (0.66-1.25) mg/dL Glucose 91 (74-99) mg/dL Calcium 9.5 (8.4-10.2) mg/dL AST 22 (17-59) U/L ALT 11 (4-49) U/L Alkaline Phosphatase 116 (38-126) U/L Total Protein 6.0 L (6.3-8.2) g/dL Albumin 3.4 L (3.5-5.0) g/dL Current Medications Generic Name Dose Route Start Last Admin Trade Name Freq PRN Reason Stop Dose Admin Hydrocodone Bitart/Acetaminophen 1 each 06/16/25 21:56 06/16/25 22:11 Hydrocodone/Apap 5-325mg 1 Each Tab PO 1 each Q8HR PRN Administration Pain Amlodipine Besylate 5 mg 06/16/25 21:00 06/16/25 20:34 Amlodipine 5 Mg Tab PO 5 mg BID KRISTY Administration Atorvastatin Calcium 80 mg 06/16/25 21:00 06/16/25 20:35 Atorvastatin 80 Mg Tab PO 80 mg HS KRISTY Administration Calcium Acetate 1,334 mg 06/16/25 17:30 06/17/25 06:23 Calcium Acetate 667 Mg Tab PO 1,334 mg TID-W/MEALS KRISTY Administration Calcium Acetate 1,334 mg 06/16/25 16:53 Calcium Acetate 667 Mg Tab PO DAILY PRN snacks Clonidine 0.3 mg 06/16/25 16:53 06/16/25 21:54 Clonidine Hcl 0.1 Mg Tab PO 0.3 mg DAILY PRN Administration High BP Clonidine 0.1 mg 06/16/25 21:00 06/16/25 20:34 Clonidine Hcl 0.1 Mg Tab PO 0.1 mg HS KRISTY Administration Doxazosin Mesylate 4 mg 06/16/25 21:00 06/16/25 20:36 Doxazosin 2 Mg Tab PO 4 mg BID KRISTY Administration Hydralazine HCl 100 mg 06/16/25 22:00 06/16/25 21:54 Hydralazine Hcl 50 Mg Tab PO 100 mg TID KRISTY Administration Sodium Chloride 1,000 mls @ 20 mls/hr 06/16/25 14:00 06/16/25 17:44 Saline 0.9% IV 20 mls/hr .Q24H KRISTY Administration Vancomycin HCl 1,000 mg/ 250 mls @ 125 mls/hr 06/17/25 16:00 Sodium Chloride IVPB 06/17/25 17:59 ONCE ONE Isosorbide Mononitrate 30 mg 06/17/25 09:00 Isosorbide Mononitrate Er 30 Mg Tab.Er.24h PO DAILY KRISTY Lactulose 10 gm 06/16/25 16:53 Lactulose 20 Gm/30 Ml Cup PO DAILY PRN Constipation Levetiracetam 1,000 mg 06/16/25 21:00 06/16/25 20:35 Levetiracetam 500 Mg Tab PO 1,000 mg BID KRISTY Administration Metoprolol Tartrate 50 mg 06/16/25 21:00 06/16/25 20:36 Metoprolol Tartrate 50 Mg Tab PO 50 mg BID KRISTY Administration Naloxone HCl 0.2 mg 06/16/25 15:33 Naloxone 0.4 Mg/Ml 1 Ml Vial IV Q2M PRN Opioid Reversal Pantoprazole Sodium 40 mg 06/16/25 21:00 06/16/25 20:34 Pantoprazole 40 Mg Tablet PO 40 mg BID KRISTY Administration Sevelamer Carbonate 1,600 mg 06/16/25 17:30 06/17/25 06:23 Sevelamer 800 Mg Tab PO 1,600 mg TID-W/MEALS KRISTY Administration Intake and Output 06/16/25 06/17/25 06/17/25 22:59 06:59 14:59 Intake Total 307 288 Output Total 0 Balance 307 288 Intake: IV 20 Invasive Line 1 10 Invasive Line 2 10 Blood Product 287 288 Rc Pheresis As-3 Unit 287 [id number] Rc Pheresis As-3 Unit 288 [id number] Output: Urine 0 Other: Weight 58.967 kg 66.2 kg 06/16/25 23:25 06/16/25 14:01
[2025-06-17] MEDS: DARBEPOETIN ALFA 40 MCG/0.4 ML SYRINGE SQ SCH (12:44)
[2025-06-17 15:37] LABS: Ferritin 618.0 ng/mL (22.0-322.0); Iron 43.0 UG/DL (65-175); Total Iron Binding Capacity 179.0 UG/DL (228-460)
[2025-06-17] MEDS ORDERED: VANCOMYCIN 1,000 MG in SODIUM CHLORIDE 0.9% 250 ML IVPB ONE (16:00)
[2025-06-17 16:06] VITALS: BP 174/88; PULSE 69; TEMP 97.9
--- NOTE | 2025-06-20 12:28 | P.DS ---
Providers Date of admission: 06/16/25 15:34 Expected date of discharge: 06/17/25 Attending physician: Aixa Robison Consults: 06/16/25 15:33 Consult Physician Routine Consulting Provider: Rick Park Consult Reason/Comments: ckd Do you want consulting provider notified?: Yes 06/16/25 16:52 Consult Physician Routine Consulting Provider: Reilly Leggett Consult Reason/Comments: pneumonia?? Do you want consulting provider notified?: Yes Consult Physician Routine Consulting Provider: Andrew Brown Consult Reason/Comments: cad, high trops Do you want consulting provider notified?: Yes 06/16/25 16:54 Consult Physician Routine Consulting Provider: Noy Crowe Consult Reason/Comments: upper gi bleeding- egd?? Do you want consulting provider notified?: Yes Primary care physician: Jaylen Holguin Hospital Course: Final diagnosis Anemia, acute on chronic, ruled out GI blood loss anemia, likely secondary to chronic kidney disease and end-stage renal disease Rule out pneumonia versus fluid overload, missed dialysis History of gastric ulcer End-stage renal disease, on hemodialysis Troponin 0.069, indeterminate, patient denies any chest pain History of atrial fibrillation History of CVA/TIA Hypertension History of hyperlipidemia History of previous myocardial infarction's with coronary artery disease and previous stenting History of seizure disorder GI prophylaxis DVT prophylaxis Full code Discharge disposition Patient is being discharged in a stable condition with guarded prognosis to home. Patient will follow-up with Dr. Holguin in the outpatient setting upon discharge. Patient is to continue with current medications and outpatient follow-up with GI as well as nephrology as scheduled. Patient to continue with hemodialysis as previously scheduled. Total time taken is greater than 35 minutes. Hospital course This is a 55-year-old male who was recently admitted with anemia with end-stage renal disease and hemoglobin noted to be 6.2. Patient received 2 units of blood this admission and GI was also consulted although not evaluated as patient reported he did not feel it was necessary as this has been an ongoing problem and he also was agitated and frustrated that he was even admitted. Patient is currently receiving hemodialysis with nephrology following and has been cleared for discharge postdialysis. Patient will follow-up with GI and/or hematology outpatient along with nephrology. Hemoglobin is currently 7.8 today with no active bleeding noted. Please refer to other consultation note for further HPI. Currently no reports of chest pain, shortness of breath, or palpitations. Patient is afebrile. No reports of nausea or vomiting and patient is tolerating diet. Patient will be discharged home today. Guarded prognosis and high risk for readmissions given noncompliance and multiple comorbidities. Physical exam: Gen: This is a 55-year-old male who is awake, alert and oriented x 3, well- developed, elderly appearing, thin built HEENT: Head is atraumatic, normocephalic. Pupils equal, round. Sclerae is anicteric. NECK: Supple. No JVD. No lymphadenopathy. No thyromegaly. LUNGS: Clear to auscultation. No wheezes or rhonchi. No intercostal retractions. HEART: Regular rate and rhythm. No murmur. ABDOMEN: Soft. Bowel sounds are present. No masses. No tenderness. EXTREMITIES: No pedal edema. No calf tenderness. Large right arm fistula with thrill noted NEUROLOGICAL: Patient is awake, alert and oriented x3. Cranial nerves 2 through 12 are grossly intact. Please refer to medication reconciliation sheet for a list of medications. The impression and plan of care has been dictated by Joanna Jefferson, Nurse Practitioner as directed. Dr. Ricki MD I have performed a history and examination and MDM of this patient, discussed the same with the dictator, and agree with the dictator's assessment and plan as written ,documented as a scribe. Based on total visit time, I have performed more than 50% of the visit. Patient Condition at Discharge: Fair Plan - Discharge Summary Discharge Rx Participant: No New Discharge Prescriptions: New Darbepoetin Jim [Aranesp] 40 mcg SQ Q7D each Continue Sevelamer [Renvela] 1,600 mg PO TID-W/MEALS hydrALAZINE HCL [Apresoline] 100 mg PO TID Pantoprazole [Protonix] 40 mg PO BID amLODIPine [Norvasc] 5 mg PO BID Calcium Acetate [PhosLo] 1,334 mg PO TID-W/MEALS Metoprolol Tartrate [Lopressor] 50 mg PO BID Atorvastatin [Lipitor] 80 mg PO HS Nitroglycerin Sl Tabs [Nitrostat] 0.4 mg SL Q5M PRN PRN Reason: Chest Pain levETIRAcetam [Keppra] 1,000 mg PO BID Clopidogrel [Plavix] 75 mg PO DAILY@1600 Isosorbide Mononitrate ER [Imdur] 30 mg PO DAILY 30 Days #30 tab cloNIDine HCL [Catapres] 0.3 mg PO DAILY PRN PRN Reason: High BP Lactulose 10 gm PO DAILY PRN PRN Reason: Constipation Doxazosin [Cardura] 4 mg PO BID cloNIDine HCL [Catapres] 0.1 mg PO HS Calcium Acetate [PhosLo] 1,334 mg PO DAILY PRN PRN Reason: snacks Discharge Medication List Sevelamer [Renvela] 1,600 mg PO TID-W/MEALS 06/16/19 [History] Pantoprazole [Protonix] 40 mg PO BID 04/08/20 [History] hydrALAZINE HCL [Apresoline] 100 mg PO TID 04/08/20 [History] amLODIPine [Norvasc] 5 mg PO BID 05/30/20 [History] Calcium Acetate [PhosLo] 1,334 mg PO TID-W/MEALS 12/15/20 [History] levETIRAcetam [Keppra] 1,000 mg PO BID 09/20/22 [History] Atorvastatin [Lipitor] 80 mg PO HS 01/21/23 [History] Clopidogrel [Plavix] 75 mg PO DAILY@1600 01/21/23 [History] Metoprolol Tartrate [Lopressor] 50 mg PO BID 01/21/23 [History] Isosorbide Mononitrate ER [Imdur] 30 mg PO DAILY 30 Days #30 tab 02/01/23 [Rx] cloNIDine HCL [Catapres] 0.3 mg PO DAILY PRN 02/23/24 [History] Calcium Acetate [PhosLo] 1,334 mg PO DAILY PRN 11/22/24 [History] Doxazosin [Cardura] 4 mg PO BID 11/22/24 [History] Lactulose 10 gm PO DAILY PRN 11/22/24 [History] Nitroglycerin Sl Tabs [Nitrostat] 0.4 mg SL Q5M PRN 11/22/24 [History] cloNIDine HCL [Catapres] 0.1 mg PO HS 11/22/24 [History] Darbepoetin Jim [Aranesp] 40 mcg SQ Q7D each 06/17/25 [Rx] Follow up Appointment(s)/Referral(s): Alexi Mayorga MD [STAFF PHYSICIAN] - 1 Week Jaylen Holguin [Primary Care Provider] - 1-2 days Rick Park DO [STAFF PHYSICIAN] - 1 Week Noy Crowe MD [STAFF PHYSICIAN] - 1 Week Activity/Diet/Wound Care/Special Instructions: Activity limited until follow-up Follow-up with primary care provider on discharge Follow-up with GI outpatient Follow-up with nephrology Continue with dialysis as scheduled Discharge Disposition: HOME SELF-CARE
== END 2025-06-17 16:56 | disposition home or self-care (01) ==
LOC: EC 13:34 → 3SCARD 15:34 → INTOOBSV 15:34 → 3SCARD 20:15
PROVIDERS: ADMIT Hospitalist; ATTEND Hospitalist
DX: I12.0 Hypertensive chronic kidney disease with stage 5 chronic kidney disease or end stage renal disease (principal); N18.6 End stage renal disease; D63.1 Anemia in chronic kidney disease; E83.9 Disorder of mineral metabolism, unspecified; I48.0 Paroxysmal atrial fibrillation; I25.10 Atherosclerotic heart disease of native coronary artery without angina pectoris; J96.11 Chronic respiratory failure with hypoxia; J44.0 Chronic obstructive pulmonary disease with (acute) lower respiratory infection; J18.9 Pneumonia, unspecified organism; I08.3 Combined rheumatic disorders of mitral, aortic and tricuspid valves; I25.5 Ischemic cardiomyopathy; G40.909 Epilepsy, unspecified, not intractable, without status epilepticus; E78.2 Mixed hyperlipidemia; R79.89 Other specified abnormal findings of blood chemistry; F17.210 Nicotine dependence, cigarettes, uncomplicated; Z99.2 Dependence on renal dialysis; I25.2 Old myocardial infarction; Z79.02 Long term (current) use of antithrombotics/antiplatelets; Z79.899 Other long term (current) drug therapy; Z88.5 Allergy status to narcotic agent; Z88.8 Allergy status to other drugs, medicaments and biological substances; Z87.11 Personal history of peptic ulcer disease; Z95.5 Presence of coronary angioplasty implant and graft; Z86.73 Personal history of transient ischemic attack (TIA), and cerebral infarction without residual deficits; Z87.09 Personal history of other diseases of the respiratory system; Z87.19 Personal history of other diseases of the digestive system
CPT/HCPCS: 96375; 36430 ×2; 96365; 96366; 96367; 99291; 36415; 93005; 86900; 86901; 83880; 80053 ×2; 82728; 83540; 83550; 83735 ×2; 84100 ×2; 84484; 85025 ×2; 85610; 85730; 86850; 86920; 84145; 71046; G0257; G0378 ×2; P9016 ×2; J0692; J0881; J2597; J1938; J3373; 90935